=== PATIENT | male | born 1975 | race Caucasian/White ===

== ENCOUNTER 2016-09-15 14:08 | Inpatient (IN) | payer OTHER ==
[~2016-09-15] VITALS: Ht 177.8 cm; Wt 82.6 kg
[~2016-09-15 14:08] MED LIST: ALBU8.5H3 INH; AZIT250T6 PO; HYDR-3498 PO; MAG-19 PO; OMEP20CA9 PO
[2016-09-15] MEDS ORDERED: morphine 4 MG/ML VIAL IV STA ×2 (14:55→19:59)
[2016-09-15] MEDS ORDERED: HEPARIN 25000 UNITS/250 ML 250 ML IV STA (14:55)
--- NOTE | 2016-09-15 15:23 | RADRPT ---
PROCEDURE: XR Chest. CLINICAL INDICATION: Chest pain TECHNIQUE: Single portable view of the chest was obtained COMPARISON: 09/15/2016 FINDINGS: The heart is enlarged. There is slightly decreased pulmonary vascular congestion. There is persistent right lower lobe con solidation and right pleural effusion. There is no pleural effusion or pneumothorax. RPTAT: AA IMPRESSION: Mild Cardiomegaly. Slightly decreased pulmonary vascular congestion. Persistent right lower lobe consolidation and right pleural effusion. .Ricky Hunt MD, MD Date Time Electronically viewed and signed by .Ricky Hunt MD, MD on 09/15/2016 15:23 .S/
[2016-09-15 15:26] LABS: HEMATOCRIT 39.2 % (42.0-52.0); MEAN CORPUSCULAR HEMOGLOBIN 29.9 pg (29.0-33.0); MEAN CORPUSCULAR HGB CONC 33.1 g/dl (32.0-37.0); MEAN CORPUSCULAR VOLUME 90.3 fl (82.0-101.0); MEAN PLATELET VOLUME 10.5 fl (7.4-10.4); PLATELET COUNT 249 10^3/UL (140-440); RED BLOOD COUNT 4.34 10^6/ul (4.70-6.10); RED CELL DISTRIBUTION WIDTH 13.8 % (11.5-14.5); UNCORRECTED WBC 21.6 10^3/ul (4.8-10.8); WHITE BLOOD COUNT 21.6 10^3/ul (4.8-10.8)
[2016-09-15 15:27] LABS: CONDITION 1; LH ANALYZER COMMENTS 1; SUSPECT 1
[2016-09-15 15:37] LABS: INR 1.54; PROTIME 18.6 Sec (12.2-14.2); PT RATIO 1.5
[2016-09-15 15:38] LABS: PARTIAL THROMBOPLASTIN TIME 40.6 Sec (25.0-35.0)
[2016-09-15 15:39] LABS: POTASSIUM 4.6 mmol/L (3.5-5.1)
[2016-09-15 15:42] LABS: CREATININE 0.82 mg/dl (0.61-1.24)
[2016-09-15 15:43] LABS: CALCIUM 8.1 mg/dl (8.4-10.2)
[2016-09-15] MEDS ORDERED: SODIUM CHLORIDE 0.9% 1L BAG IV* STA (15:48)
[2016-09-15] MEDS ORDERED: CEFTRIAXONE 1 GM/50 ML (PMX) 50 ML IVPB STA (15:49)
[2016-09-15] MEDS ORDERED: AZITHROMYCIN 250 MG TAB PO STA (15:49)
[2016-09-15] MEDS ORDERED: IOHEXOL 350MG/ML 50 ML BTL ONE (15:52)
[2016-09-15] MEDS ORDERED: SOD CHLORIDE 0.9% 100 ML ONE (15:52)
[2016-09-15] MEDS ORDERED: IOHEXOL 100 ML ONE (15:52)
[2016-09-15 15:54] LABS: TROPONIN-I 0.05 ng/ml (0.00-0.12)
[2016-09-15 16:13] LABS: LYMPHOCYTES # 1.7 10^3/ul (0.8-2.9); MONOCYTE # 1.1 10^3/ul (0.3-0.9); NEUTROPHIL # 17.7 10^3/ul (1.6-7.5); PLATELET ESTIMATE PLT APPEAR ADEQUATE
--- NOTE | 2016-09-15 16:28 | RADRPT ---
PROCEDURE: CT Pulmonary Angiogram. CLINICAL INDICATION: Chest pain and shortness of breath. History of cocaine and methamphetamine us e. TECHNIQUE: CT pulmonary angiogram and a CT scan of the chest with contrast was performed. The pat ient was scanned following the uncomplicated intravenous administration of 125 cc of Omnipaque-350 i ntravenous contrast. 2-D coronal reformatted images were obtained from the axial source images. In addition, 3-D post processing was performed. Total exam DLP is 106.18 mGy-cm. CTDIvol is 22.53 m Gy. COMPARISON: Chest radiograph done earlier the same day. Bilateral lower extremity venous Doppler dated 09/14/2060 which was normal. FINDINGS: There are pulmonary emboli in the right main pulmonary artery distally at the branches of the right upper lobe, right middle lobe, and right lower lobe. There are small pulmonary emboli AP and left u pper lobe and lingular arteries. The left lower lobe appears clear of an bulbi. There is a moderate right pleural effusion. Patchy air space disease is present in the right lower lobe consistent with pneumonia. There is a small region of inflammation or pneumonia in the lingula . The lungs are otherwise clear with no other airspace or interstitial disease. There is no left p leural effusion. There is no pulmonary nodule or mass lesion. There is no pneumothorax. There is no mediastinal or hilar lymphadenopathy or mass. There is cardiomegaly and probable decreased cardiac output with no contrast in the left side of the heart. There is no pericardial effusion. The thoracic aorta is not dilated. There is no contrast in the thoracic aorta. Images through the upper abdomen demonstrate normal visualized portions of the liver, spleen, and ad renals. The osseous structures are normal with no fracture or lytic lesion. IMPRESSION: 1. Multiple bilateral pulmonary emboli with right greater than left. 2. Moderate right pleural effusion. 3. Right lower lobe pneumonia. 4. Small region of inflammation or pneumonia in the lingula. 5. Cardiomegaly and probable decreased cardiac output with no contrast in the left side of the hear t or thoracic aorta. 6. Otherwise unremarkable study. Call report: A call report of the findings was made to Dr. Estrada on 09/15/2016 at 1620 hours. RPTAT: QQ .Zack Gonsalez MD, MD Date Time Electronically viewed and signed by .Zack Gonsalez MD, on 09/15/2016 16:27 .R/
[2016-09-15] MEDS ORDERED: SOD CHLORIDE 0.9% 1,000 ML IV SCH (16:54)
[2016-09-15] MEDS ORDERED: ACETAMINOPHEN 325 MG TAB PO PRN (17:00)
[2016-09-15] MEDS ORDERED: ONDANSETRON 4 MG INJ IV PRN ×2 (17:00→18:00)
--- NOTE | 2016-09-15 17:03 | ERA ---
ER Documentation Chief Complaint Date/Time DATE: 09/15/16 TIME: 16:58 Chief Complaint sob, admitted and left ama this am, hx of blood clots and pneumonia HPI This is a 40-year-old male who presents to the emergency room with a chief complaint of shortness of breath.. This patient was seen previously in the emergency room, was diagnosed with a pulmonary embolism and left AGAINST MEDICAL ADVICE. He states he left AGAINST MEDICAL ADVICE because he did not feel like the hospital was "doing anything for him". He returns again today because he went to another hospital and did not get the care that he liked at the hospital either. The patient is complaining of shortness of breath and palpitations at this time. ROS All systems reviewed and are negative except as per history of present illness. Medications Home Meds Discontinued Reported Medications [none] Unknown Strength No Conflict Check 04/08/16 Discontinued Scripts Azithromycin* (Azithromycin*) 250 Mg Tablet, 250 MG PO DAILY, #4 TAB Prov:YANELIS ESCAMILLA DO 08/29/16 Albuterol Sulfate* (Proair HFA*) 8.5 Gm Hfa.aer.ad, 2 PUFF INH Q4, #1 INHALER Prov:YANELIS ESCAMILLA DO 08/29/16 Hydrocodone Bit-Acetaminophen* (Yancey*) 5-325 Mg Tab, 1 TAB PO Q6 Y for PAIN, # 20 TAB Prov:GRAY ADAM NP 04/09/16 Magaldrate/Simethicone* (Mylanta*) 355 Ml Susp, 30 ML PO QID Y for GASTROINTESTINAL UPSET, #1 BOTTLE Prov:GRAY ADAM NP 04/09/16 Omeprazole* (Prilosec*) 20 Mg Capsule.dr, 20 MG PO DAILY, #30 CAP Prov:GRAY ADAM NP 04/09/16 Allergies Allergies: Coded Allergies: No Known Drug Allergies (Verified Allergy, Unknown, 09/15/16) PMhx/Soc History of Surgery: No Anesthesia Reaction: No Hx Neurological Disorder: No Hx Respiratory Disorders: No Hx Cardiac Disorders: No Hx Psychiatric Problems: No Hx Miscellaneous Medical Probl: No Hx Alcohol Use: No Hx Substance Use: No Hx Tobacco Use: Yes Smoking Status: Heavy tobacco smoker Physical Exam Vitals Vital Signs Date Time Temp Pulse Resp B/P Pulse Ox O2 Delivery O2 Flow Rate FiO2 09/15/16 15:00 Nasal Cannula 4 09/15/16 14:20 100.6 119 40 125/81 96 Physical Exam INITIAL VITAL SIGNS: Reviewed by me GENERAL: The patient is well developed and appropriate for usual state of health in no apparent distress HEENT: Dry mucous membranes, pupils equal, round, and reactive to light. EOMI. There is no scleral icterus. NECK: C-spine is soft and supple, there is no meningismus. There is no cervical lymphadenopathy. LUNGS: Clear to auscultation bilaterally. There are no rales, wheezes or rhonchi. HEART: Tachycardic, no murmurs, clicks, rubs or gallops. ABDOMEN: Soft, non-tender, non-distended. There are bowel sounds in all four quadrants. No rebound or guarding. EXTREMITIES: There is no peripheral cyanosis or edema. No focal swelling or erythema. NEUROLOGICAL: The patient moves all four extremities with 5/5 strength. Cranial nerves II - XII are intact. Normal gait. Alert and oriented SKIN: There is no apparent rash or petechiae. HEME/LYMPHATIC: There is no evidence of excessive bruising or lymphedema. PSYCHIATRIC: The patient does not appear anxious or depressed. Result Diagram: 09/15/16 1505 09/15/16 1505 Results 24 hrs Laboratory Tests Test 09/15/16 15:05 09/15/16 16:00 Activated Partial Thromboplast Time 40.6Sec Anion Gap 17 Basophils # 10^3/ul Basophils % % Blood Morphology Comment Blood Urea Nitrogen 26mg/dl Calcium Level 8.1mg/dl Carbon Dioxide Level 26mmol/L Chloride Level 96mmol/L Creatinine 0.82mg/dl Eosinophils # 10^3/ul Eosinophils % % Giant Platelets FEW Glucose Level 96mg/dl Hematocrit 39.2% Hemoglobin 13.0g/dl INR International Normalized Ratio 1.54 Large Platelets FEW Lymphocytes # 1.710^3/ul Lymphocytes % 8.0% Mean Corpuscular Hemoglobin 29.9pg Mean Corpuscular Hemoglobin Concent 33.1g/dl Mean Corpuscular Volume 90.3fl Mean Platelet Volume 10.5fl Monocytes # 1.110^3/ul Monocytes % 5.0% Neutrophils # 17.710^3/ul Neutrophils % 82.0% Nucleated Red Blood Cells # 10^3/ul Nucleated Red Blood Cells % 0.0/100WBC Platelet Count 15716^3/UL Platelet Estimate PLT APPEAR ADEQUATE Potassium Level 4.6mmol/L Prothrombin Time 18.6Sec Prothrombin Time Ratio 1.5 Red Blood Count 4.3410^6/ul Red Cell Distribution Width 13.8% Sodium Level 134mmol/L Troponin I 0.050ng/ml White Blood Count 21.610^3/ul Lactic Acid Level 2.2mmol/L Current Medications Medications (Trade) Dose Ordered Sig/Darlyn Route PRN Reason Start Time Stop Time Status Last Admin Dose Admin Morphine Sulfate 4 mg 4 mg ONCE STAT IV 09/15/16 14:55 09/15/16 14:57 DC 09/15/16 15:09 Heparin Sodium (Porcine) (Heparin 77649 Units/250 ml) 250 ml @ 0 mls/hr ONCE STAT IV 09/15/16 14:55 09/15/16 14:57 DC Sodium Chloride (NS) 3,210 ml BOLUS OVER 2 HOURS STAT IV* 09/15/16 15:48 09/15/16 15:50 DC Azithromycin 500 mg 500 mg ONCE STAT PO 09/15/16 15:49 09/15/16 15:50 DC Ceftriaxone Sodium (Rocephin) 50 ml @ 100 mls/hr ONCE STAT IVPB 09/15/16 15:49 09/15/16 16:18 DC IV Flush 10 ml 10 ml STK-MED ONCE .ROUTE 09/15/16 15:52 09/15/16 15:53 DC 09/15/16 16:19 Sodium Chloride 100 ml @ ud STK-MED ONCE .ROUTE 09/15/16 15:52 09/15/16 15:53 DC 09/15/16 16:20 Iohexol (Omnipaque) 100 ml @ ud STK-MED ONCE .ROUTE 09/15/16 15:52 09/15/16 15:53 DC 09/15/16 16:19 Iohexol 50 ml 50 ml STK-MED ONCE .ROUTE 09/15/16 15:52 09/15/16 15:53 DC 09/15/16 16:19 Sodium Chloride (NS) 1,000 ml @ 80 mls/hr [id number] IV 09/15/16 16:54 09/16/16 05:23 UNV Ondansetron HCl (Zofran Inj) 4 mg ER BRIDGE PRN IV NAUSEA AND/OR VOMITING 09/15/16 17:00 09/16/16 16:59 UNV Acetaminophen (Tylenol Tab) 650 mg ER BRIDGE PRN PO MILD PAIN/FEVER 09/15/16 17:00 09/16/16 16:59 UNV Procedures/MDM EKG: Rate/Rhythm: Sinus tachycardia QRS, ST, T-waves: [No changes consistent w/ acute ischemia] Impression: [No evidence of ischemia or arrhythmia] Chest X-ray 1V Interpreted by me: Soft Tissue: Persistent right lower lobe consolidation and effusion Bones: No acute abnormalities Mediastinum/Cardiac Silhouette/Lungs: [No acute abnormalities] CTA chest: 1. Multiple bilateral pulmonary emboli with right greater than left. 2. Moderate right pleural effusion. 3. Right lower lobe pneumonia. 4. Small region of inflammation or pneumonia in the lingula. 5. Cardiomegaly and probable decreased cardiac output with no contrast in the left side of the heart or thoracic aorta. 6. Otherwise unremarkable study. This is a 40-year-old male who presents to the ER for evaluation of chest pain and shortness of breath. This patient was seen previously in the emergency room , diagnosed with pneumonia and he states a blood clot in his lung. I could not find any CT angios confirmed pulmonary embolism. Patient was tachycardic on my examination, and I did obtain a CT of the chest which did show a right-sided pulmonary embolism, right-sided pneumonia, pleural effusion. This patient has a white blood cell count of 21,000, and he was tachycardic. Sepsis workup was initiated in the emergency room including a greater than 30 cc/kg bolus of IV normal saline. This patient was started on a heparin drip, Rocephin, and azithromycin. He will be placed in for admission at this time to the telemetry floor for acute pulmonary aneurysm, and superimposed pneumonia with sepsis. No need for vasopressors at this time as this patient does have a mean arterial pressure greater than 65. Critical Care: Excluding all billable procedures Time: 48 minutes Treatments/Evaluations: Close monitoring and treatment of unstable vital signs, cardiorespiratory, and neurologic status, while maintaining tight balance of fluid, respiratory, and cardiac interventions. Smoking Cessation Therapy: Pt. was lectured for greater than 3 minutes on the health risks of continued smoking and the benefits of cessation. Departure Diagnosis: Primary Impression: Acute pulmonary embolus Additional Impressions: Sepsis Right middle lobe pneumonia Normocytic anemia Tobacco abuse Tobacco abuse counseling Amphetamine abuse, continuous Condition: Fair YANELIS ESCAMILLA DO Sep 15, 2016 17:03
[2016-09-15 17:32] LABS: ALBUMIN 3.1 g/dl (3.3-4.9); POTASSIUM 4.7 mmol/L (3.5-5.1)
[2016-09-15 17:34] LABS: ALBUMIN/GLOBULIN RATIO 1.06; BILIRUBIN,DIRECT 0.1 mg/dl (0.00-0.20); BILIRUBIN,TOTAL 3.1 mg/dl (0.2-1.3); CREATININE 0.83 mg/dl (0.61-1.24)
[2016-09-15 17:35] LABS: CALCIUM 8.2 mg/dl (8.4-10.2)
[2016-09-15] MEDS ORDERED: NACL 0.9% 3 ML SYG IV SCH (18:00)
[2016-09-15] MEDS: SOD CHLORIDE 0.9% 1,000 ML IV SCH (20:51)
[2016-09-15 20:52] LABS: ADD UMIC YES; URINE BILIRUBIN (Dip) 1+ (NEGATIVE); URINE BLOOD (Dip) NEGATIVE (NEGATIVE); URINE COLOR DK. YELLOW (YELLOW); URINE GLUCOSE (Dip) NEGATIVE (NEGATIVE); URINE KETONES (Dip) NEGATIVE (NEGATIVE); URINE LEUKOCYTE ESTERASE (Dip) NEGATIVE (NEGATIVE); URINE NITRITE (Dip) NEGATIVE (NEGATIVE); URINE TOTAL PROTEIN (Dip) 2+ (NEGATIVE); URINE UROBILINOGEN (Dip) 2.0 E.U./dL (0.1-1.0)
[2016-09-15 21:03] LABS: BACTERIA,URINE FEW; URINE RBCS NONE SEEN /HPF (0)
[2016-09-15 21:04] LABS: ICTOTEST NEGATIVE (NEGATIVE)
[2016-09-15 21:57] LABS: CK-MB 1.44 ng/ml (0.0-2.4)
[2016-09-15 21:58] LABS: TROPONIN-I 0.042 ng/ml (0.00-0.12)
[2016-09-15] MEDS: LORAZEPAM 2 MG INJ IV PRN (22:16)
[2016-09-15] MEDS ORDERED: ROCURONIUM 50 MG INJ IV STA (22:50)
[2016-09-15] MEDS ORDERED: FLUMAZENIL 0.5 MG INJ ONE (22:50)
[2016-09-15] MEDS ORDERED: SOD CHLORIDE 0.9% 1,000 ML IV STA (22:50)
[2016-09-15] MEDS ORDERED: ETOMIDATE 20 MG INJ IV STA (22:50)
[2016-09-15] MEDS ORDERED: MIDAZOLAM 50 MG in DEXTROSE 5% 40 ML IV STA (22:50)
[2016-09-15] MEDS ORDERED: FENTAnyl 500 MCG in DEXTROSE 5% 40 ML IV ONE (22:50)
[2016-09-15] MEDS ORDERED: FLUMAZENIL 0.5 MG INJ IV ONE (23:00)
[2016-09-16] VITALS (11 sets, daily range): BP systolic 115–139; BP diastolic 73–101; PULSE 103–116; RESP 22–37; Ht 177.8 cm; Wt 82.6 kg
[2016-09-16] MEDS ORDERED: morphine 4 MG/ML VIAL IV STA (00:53)
[2016-09-16 01:42] LABS: INR 1.53; PROTIME 18.5 Sec (12.2-14.2); PT RATIO 1.4
[2016-09-16 01:48] LABS: PARTIAL THROMBOPLASTIN TIME 70.9 Sec (25.0-35.0)
[2016-09-16 01:58] LABS: TROPONIN-I 0.05 ng/ml (0.00-0.12)
[2016-09-16 02:02] LABS: CK-MB 1.75 ng/ml (0.0-2.4)
[2016-09-16] MEDS: SOD CHLORIDE 0.9% 1,000 ML IV SCH ×3 (03:50→20:24)
[2016-09-16 07:00] LABS: BASOPHILS % 0.2 % (0.0-2.0); HEMATOCRIT 43.9 % (42.0-52.0); HEMOGLOBIN 14.3 g/dl (14.0-18.0); LYMPHOCYTES # 1.4 10^3/ul (0.8-2.9); LYMPHOCYTES % 6.1 % (15.0-51.0); MEAN CORPUSCULAR HEMOGLOBIN 29.9 pg (29.0-33.0); MEAN CORPUSCULAR HGB CONC 32.7 g/dl (32.0-37.0); MEAN CORPUSCULAR VOLUME 91.6 fl (82.0-101.0); MONOCYTE # 1.8 10^3/ul (0.3-0.9); MONOCYTES % 7.9 % (0.0-11.0); NEUTROPHILS % 85.8 % (39.0-77.0); PLATELET COUNT 222 10^3/UL (140-440); RED BLOOD COUNT 4.79 10^6/ul (4.70-6.10); RED CELL DISTRIBUTION WIDTH 13.9 % (11.5-14.5); UNCORRECTED WBC 23.3 10^3/ul (4.8-10.8); WHITE BLOOD COUNT 23.3 10^3/ul (4.8-10.8)
[2016-09-16 07:07] LABS: CONDITION 1; LH ANALYZER COMMENTS 1; SUSPECT 1
[2016-09-16 07:12] LABS: INR 1.83; PROTIME 21.3 Sec (12.2-14.2); PT RATIO 1.7
[2016-09-16 07:16] LABS: ALBUMIN 3.5 g/dl (3.3-4.9)
[2016-09-16 07:17] LABS: POTASSIUM 5.4 mmol/L (3.5-5.1)
[2016-09-16 07:19] LABS: BILIRUBIN,DIRECT 0.3 mg/dl (0.00-0.20); BILIRUBIN,INDIRECT 2.7 mg/dl (0-1.1); CREATININE 0.89 mg/dl (0.61-1.24)
[2016-09-16 07:20] LABS: CALCIUM 8.1 mg/dl (8.4-10.2)
[2016-09-16] MEDS ORDERED: HEPARIN 25000 UNITS/250 ML 250 ML IV STA (08:17)
[2016-09-16] MEDS ORDERED: ENOXAPARIN 60 MG/0.6 ML SYG SC SCH (09:00)
[2016-09-16] MEDS: morphine 2 MG INJ IV PRN ×3 (09:32→17:43)
[2016-09-16] MEDS: LORAZEPAM 2 MG INJ IV PRN ×2 (09:38→15:29)
[2016-09-16] MEDS: CEFTRIAXONE 1 GM/50 ML (PMX) 50 ML IVPB SCH (09:46)
[2016-09-16] MEDS ORDERED: HEPARIN 25000 UNITS/250 ML 250 ML IV SCH (11:30)
--- NOTE | 2016-09-16 12:50 | HP ---
Date/Time of Note Date/Time of Note DATE: 09/16/16 TIME: 12:46 Assessment/Plan VTE Prophylaxis VTE Prophylaxis Intervention: LMWH Lines/Catheters IV Catheter Type (from [facility]): Peripheral IV Urinary Cath still in place: No Reason Cath still needed: skin wounds contaminated by urine Assessment/Plan Chief Complaint/Hosp Course 1) pneumonia - intravenous antibiotics 2) pulmonary embolus - anticoagulation - oxygen 3) agitation - BZDs prn Problems: HPI/ROS Admit Date/Time Admit Date/Time Sep 15, 2016 at 16:54 Hx of Present Illness Patient comes in with shortness of breath. Patient was recently transfered from outside facility to this hospital for pneumonia and pulmonary embolus. Patient was treated for several days with intravenous antibiotics and lovenox/coumadin before he decided to leave against medical advice. Patient returns after having difficulty breathing. PMH/Family/Social Past Medical History Medical History: no pertinent history Past Surgical History Past Surgical Hx: no surgical history Social History Alcohol Use: occasionally Smoking Status: Heavy tobacco smoker Exam/Review of Systems Vital Signs Vitals Vital Signs Date Time Temp Pulse Resp B/P Pulse Ox O2 Delivery O2 Flow Rate FiO2 09/16/16 12:00 106 09/16/16 11:00 25 115/89 100 Non Rebreather 09/16/16 09:30 97.4 09/16/16 09:30 15.0 09/15/16 23:00 40 Intake and Output 09/15/16 09/15/16 09/16/16 15:00 23:00 07:00 Intake Total 155.5 ml 1948 ml Balance 155.5 ml 1948 ml Exam Constitutional: well developed Head: atraumatic, normocephalic Neck: supple Respiratory: clear to auscultation Cardiovascular: regular rate and rhythm Gastrointestinal: non-tender, soft Extremities: normal pulses Labs Result Diagram: 09/16/16 0650 09/16/16 0650 Medications Medications Current Medications Sodium Chloride (NS) 1,000 ml @ 100 mls/hr Q10H IV Last administered on at 03:50; Admin Dose 100 MLS/HR; Start 09/15/16 at 17:50 Lorazepam (Ativan) 0.5 mg Q6H PRN IV ANXIETY Last administered on 09/16/16at 09 :38; Admin Dose 0.5 MG; Start 09/15/16 at 18:00 Ondansetron HCl (Zofran Inj) 4 mg Q6H PRN IV NAUSEA AND/OR VOMITING; Start at 18:00 Morphine Sulfate (morphine) 2 mg Q4H PRN IV PAIN LEVEL 7-10 Last administered on 09/16/16 09:32; Admin Dose 2 MG; Start 09/15/16 at 18:00 Enoxaparin Sodium 110 mg 110 mg DAILY SC Last administered on 09/16/16at 09:47 ; Admin Dose 110 MG; Start 09/16/16 at 09:00 Ceftriaxone Sodium (Rocephin) 50 ml @ 100 mls/hr DAILY IVPB Last administered on 09/16/16 09:46; Admin Dose 100 MLS/HR; Start 09/16/16 at 09:00 Warfarin Sodium (Coumadin) 4 mg DAILY@17 PO ; Start 09/16/16 at 17:00 DREW MOLINA Sep 16, 2016 12:49
[2016-09-16] MEDS: WARFARIN 2 MG TAB PO SCH (17:43)
[2016-09-16] MEDS: LEVALBUTEROL (NEB) 1.25 MG/0.5 ML AMP HHN PRN (19:25)
[2016-09-16] MEDS ORDERED: ENOXAPARIN 100 MG/ML SYG SC SCH (21:00)
[2016-09-17] VITALS (12 sets, daily range): BP systolic 106–130; BP diastolic 60–96; PULSE 100–120; RESP 17–24
[2016-09-17 08:20] LABS: INR 2.04; PROTIME 23.2 Sec (12.2-14.2); PT RATIO 1.8
[2016-09-17] MEDS: LORAZEPAM 2 MG INJ IV PRN ×2 (08:34→21:09)
[2016-09-17 08:49] LABS: HAAIG REFLEX REFLEX FILED
[2016-09-17 09:44] LABS: HEPATITIS B CORE ANTIBODY NEGATIVE (NEGATIVE)
[2016-09-17] MEDS: SOD CHLORIDE 0.9% 1,000 ML IV SCH ×2 (09:50→18:51)
[2016-09-17 09:55] LABS: BASOPHIL # 0.1 10^3/ul (0.0-0.1); BASOPHILS % 0.3 % (0.0-2.0); HEMATOCRIT 38.9 % (42.0-52.0); HEMOGLOBIN 12.6 g/dl (14.0-18.0); LYMPHOCYTES # 1.1 10^3/ul (0.8-2.9); LYMPHOCYTES % 6.6 % (15.0-51.0); MEAN CORPUSCULAR HEMOGLOBIN 29.7 pg (29.0-33.0); MEAN CORPUSCULAR HGB CONC 32.4 g/dl (32.0-37.0); MEAN CORPUSCULAR VOLUME 91.6 fl (82.0-101.0); MEAN PLATELET VOLUME 10.2 fl (7.4-10.4); MONOCYTE # 1.3 10^3/ul (0.3-0.9); NEUTROPHIL # 13.7 10^3/ul (1.6-7.5); NEUTROPHILS % 85.1 % (39.0-77.0); PLATELET COUNT 215 10^3/UL (140-440); RED BLOOD COUNT 4.25 10^6/ul (4.70-6.10); RED CELL DISTRIBUTION WIDTH 13.8 % (11.5-14.5); UNCORRECTED WBC 16.1 10^3/ul (4.8-10.8); WHITE BLOOD COUNT 16.1 10^3/ul (4.8-10.8)
[2016-09-17 09:57] LABS: CONDITION 1; LH ANALYZER COMMENTS 1; SUSPECT 1
[2016-09-17] MEDS: CEFTRIAXONE 1 GM/50 ML (PMX) 50 ML IVPB SCH (09:58)
[2016-09-17] MEDS: LEVALBUTEROL (NEB) 1.25 MG/0.5 ML AMP HHN PRN ×2 (11:35→19:37)
[2016-09-17] MEDS: morphine 2 MG INJ IV PRN ×2 (12:30→22:01)
[2016-09-17 12:41] LABS: AADO2 Arterial 144.3 mmHg (7.0-24.0); Allen Test ACCEPTAB; Arterial Base Excess -0.7 mmol/L (-3.0-3); Arterial COHb 0 % (0.0-3.0); Arterial HCO3 24.7 mmol/L (22.0-26.0); Arterial MetHb 0.1 % (0.0-1.5); Arterial Total Hemglobin 13.8 g/dl (12.0-18.0); MODE NASAL CANNULA
--- NOTE | 2016-09-17 13:50 | PN ---
Date/Time of Note Date/Time of Note DATE: 09/17/16 TIME: 13:48 Assessment/Plan VTE Prophylaxis VTE Prophylaxis Intervention: other Lines/Catheters IV Catheter Type (from Nrs): Peripheral IV Urinary Cath still in place: No Assessment/Plan Chief Complaint/Hosp Course 1) pneumonia - intravenous antibiotics 2) pulmonary embolus - anticoagulation - oxygen 3) agitation - BZDs prn 4) shortness of breath - consult pulmonary Problems: Subjective 24 Hr Interval Summary Free Text/Dictation Patient has increased difficulty breath. Exam/Review of Systems Vital Signs Vitals Vital Signs Date Time Temp Pulse Resp B/P Pulse Ox O2 Delivery O2 Flow Rate FiO2 09/17/16 12:23 114 09/17/16 12:04 97.8 17 115/60 97 09/17/16 11:36 15.0 09/17/16 11:36 Non Rebreather Mask 09/15/16 23:00 40 Intake and Output 09/16/16 09/16/16 09/17/16 15:00 23:00 07:00 Intake Total 747.5 ml 1240 ml Output Total 250 ml 900 ml Balance 497.5 ml 340 ml Exam Constitutional: well developed Neck: supple Respiratory: diminished breath sounds Cardiovascular: regular rate and rhythm Gastrointestinal: non-tender, soft Extremities: normal pulses Results Result Diagram: 09/17/16 0935 09/16/16 0650 Results 24 hrs Laboratory Tests Test 09/16/16 17:07 09/17/16 07:16 09/17/16 09:35 09/17/16 12:03 Activated Partial Thromboplast Time 72.3 *H Hepatitis B Core Total Antibody NEGATIVE Hepatitis B Surface Antigen NEGATIVE Hepatitis C Antibody NEGATIVE INR International Normalized Ratio 2.04 Prothrombin Time 23.2 H Prothrombin Time Ratio 1.8 Basophils # 0.1 Basophils % 0.3 Eosinophils # 0.0 Eosinophils % 0.0 Hematocrit 38.9 L Hemoglobin 12.6 L Lymphocytes # 1.1 Lymphocytes % 6.6 L Mean Corpuscular Hemoglobin 29.7 Mean Corpuscular Hemoglobin Concent 32.4 Mean Corpuscular Volume 91.6 Mean Platelet Volume 10.2 Monocytes # 1.3 H Monocytes % 8.0 Neutrophils # 13.7 H Neutrophils % 85.1 H Nucleated Red Blood Cells # 0.0 Nucleated Red Blood Cells % 0.0 Platelet Count 215 Red Blood Count 4.25 L Red Cell Distribution Width 13.8 White Blood Count 16.1 #H Arterial Blood HCO3 24.7 Arterial Blood Base Excess -0.7 Arterial Blood Oxygen Saturation 95.1 Sky Test ACCEPTAB Arterial Blood Gas Puncture Site Left Radial Arterial Blood Carboxyhemoglobin 0 Arterial Blood Date Drawn 09/17/2016 12:30:26 PM Arterial Blood Methemoglobin 0.1 Arterial Blood pCO2 (Temp correct) 43.4 Arterial Blood pH (Temp corrected) 7.373 Arterial Blood pO2 (Temp corrected) 83.8 Blood Gas A-a O2 Differential 144.3 H Blood Gas Modality NASAL CANNULA Blood Gas Notified Time 09/17/2016 12:40:59 PM Blood Gas Notified Whom JLD Blood Gas Specimen Source Blood arterial Blood Gas Temperature 37.0 FiO2 39.0 Oxyhemoglobin Percent 95.0 Total Hemoglobin 13.8 Medications Medications Current Medications Sodium Chloride (NS) 1,000 ml @ 100 mls/hr Q10H IV Last administered on at 20:24; Admin Dose 100 MLS/HR; Start 09/15/16 at 17:50 Lorazepam (Ativan) 0.5 mg Q6H PRN IV ANXIETY Last administered on 09/17/16 08 :34; Admin Dose 0.5 MG; Start 09/15/16 at 18:00 Ondansetron HCl (Zofran Inj) 4 mg Q6H PRN IV NAUSEA AND/OR VOMITING; Start at 18:00 Morphine Sulfate 2 mg 2 mg Q4H PRN IV PAIN LEVEL 7-10 Last administered on at 12:30; Admin Dose 2 MG; Start 09/15/16 at 18:00 Ceftriaxone Sodium (Rocephin) 50 ml @ 100 mls/hr DAILY IVPB Last administered on 09/17/16 09:58; Admin Dose 100 MLS/HR; Start 09/16/16 at 09:00 Warfarin Sodium (Coumadin) 4 mg DAILY@17 PO Last administered on 09/16/16at 17: 43; Admin Dose 4 MG; Start 09/16/16 at 17:00 DREW MOLINA Sep 17, 2016 13:50
--- NOTE | 2016-09-17 14:36 | RADRPT ---
PROCEDURE: XR Chest. CLINICAL INDICATION: Shortness of breath TECHNIQUE: A single AP view of the chest was obtained. COMPARISON: Chest x-ray and CT chest dated 09/15/2016 FINDINGS: There is consolidation of the right lower lobe. There is a small right pleural effusion. No pneum othorax is seen. The cardiomediastinal silhouette is mildly enlarged. The osseous structures are u nremarkable. IMPRESSION: 1. Right lower lobe pneumonia with small right pleural effusion. No significant interval change. 2. Mild cardiomegaly. RPTAT: HH .Malia Aguirre MD, MD Date Time Electronically viewed and signed by .Malia Aguirre MD, on 09/17/2016 14:36 .G/
[2016-09-17 14:55] LABS: ALBUMIN 2.8 g/dl (3.3-4.9)
[2016-09-17 14:56] LABS: POTASSIUM 4.9 mmol/L (3.5-5.1)
[2016-09-17 14:58] LABS: ALBUMIN/GLOBULIN RATIO 0.87; BILIRUBIN,DIRECT 0.1 mg/dl (0.00-0.20); BILIRUBIN,INDIRECT 1.9 mg/dl (0-1.1); CREATININE 0.73 mg/dl (0.61-1.24)
[2016-09-17 14:59] LABS: CALCIUM 7.7 mg/dl (8.4-10.2)
[2016-09-17] MEDS: WARFARIN 2 MG TAB PO SCH (18:28)
[2016-09-18] VITALS (14 sets, daily range): BP systolic 106–129; BP diastolic 63–99; PULSE 91–126; RESP 20–48
[2016-09-18] MEDS: morphine 2 MG INJ IV PRN ×2 (02:52→08:47)
[2016-09-18] MEDS: LORAZEPAM 2 MG INJ IV PRN ×3 (03:43→17:52)
[2016-09-18] MEDS: SOD CHLORIDE 0.9% 1,000 ML IV SCH ×2 (05:50→15:50)
[2016-09-18 07:31] LABS: INR 2.37; PROTIME 26.2 Sec (12.2-14.2)
[2016-09-18] MEDS: LEVALBUTEROL (NEB) 1.25 MG/0.5 ML AMP HHN PRN ×2 (08:18→13:49)
[2016-09-18] MEDS: CEFTRIAXONE 1 GM/50 ML (PMX) 50 ML IVPB SCH (08:47)
[2016-09-18] MEDS: HALOPERIDOL 5 MG INJ IM PRN (11:31)
--- NOTE | 2016-09-18 14:10 | EN ---
Date/Time of Note Date/Time of Note DATE: 09/18/16 TIME: 14:09 Event Note Medicine Medicine Event Note Elevated liver function tests will require ultrasound of the abdomen Lower extremity Dopplers to rule out deep vein thrombosis Cardiac echo to evaluate for possible cardiomyopathy given evidence of heart failure with pleural effusion Trial of Lasix Consider cardiology consultation Consider GI consultation for elevated liver function tests [facility] STONE MD, [facility] Sep 18, 2016 14:10
--- NOTE | 2016-09-18 14:34 | PN ---
Date/Time of Note Date/Time of Note DATE: 09/18/16 TIME: 14:33 Assessment/Plan VTE Prophylaxis VTE Prophylaxis Intervention: other Lines/Catheters IV Catheter Type (from Nrs): Peripheral IV Urinary Cath still in place: No Assessment/Plan Chief Complaint/Hosp Course 1) pneumonia - intravenous antibiotics 2) pulmonary embolus - anticoagulation - oxygen 3) agitation - BZDs prn 4) shortness of breath - consult pulmonary Problems: Subjective 24 Hr Interval Summary Free Text/Dictation Patient continues to be anxious and difficult to control Exam/Review of Systems Vital Signs Vitals Vital Signs Date Time Temp Pulse Resp B/P Pulse Ox O2 Delivery O2 Flow Rate FiO2 09/18/16 13:55 112 36 Nasal Cannula 6.0 09/18/16 12:00 96.8 125/87 94 09/18/16 08:27 44 Intake and Output 09/17/16 09/17/16 09/18/16 15:00 23:00 07:00 Intake Total 800 ml 1600 ml Output Total 650 ml 1300 ml Balance 150 ml 300 ml Exam Constitutional: well developed Neck: supple Respiratory: diminished breath sounds Cardiovascular: regular rate and rhythm Gastrointestinal: non-tender, soft Extremities: normal pulses Results Result Diagram: 09/17/16 0935 09/17/16 1440 Results 24 hrs Laboratory Tests Test 09/17/16 14:40 09/18/16 06:25 Alanine Aminotransferase (ALT/SGPT) 1605 H Albumin 2.8 L Albumin/Globulin Ratio 0.87 Alkaline Phosphatase 198 H Anion Gap 14 Aspartate Amino Transf (AST/SGOT) 1401 H Blood Urea Nitrogen 32 H Calcium Level 7.7 L Carbon Dioxide Level 24 Chloride Level 97 Creatinine 0.73 Direct Bilirubin 0.10 # Globulin 3.20 Glucose Level 109 Indirect Bilirubin 1.9 H Potassium Level 4.9 Sodium Level 130 L Total Bilirubin 2.0 H Total Protein 6.0 #L INR International Normalized Ratio 2.37 Prothrombin Time 26.2 H Prothrombin Time Ratio 2.0 Medications Medications Current Medications Sodium Chloride (NS) 1,000 ml @ 100 mls/hr Q10H IV Last administered on at 18:51; Admin Dose 100 MLS/HR; Start 09/15/16 at 17:50 Lorazepam (Ativan) 0.5 mg Q6H PRN IV ANXIETY Last administered on 09/18/16at 10 :07; Admin Dose 0.5 MG; Start 09/15/16 at 18:00 Ondansetron HCl (Zofran Inj) 4 mg Q6H PRN IV NAUSEA AND/OR VOMITING; Start at 18:00 Morphine Sulfate 2 mg 2 mg Q4H PRN IV PAIN LEVEL 7-10 Last administered on at 08:47; Admin Dose 2 MG; Start 09/15/16 at 18:00 Ceftriaxone Sodium (Rocephin) 50 ml @ 100 mls/hr DAILY IVPB Last administered on 09/18/16at 08:47; Admin Dose 100 MLS/HR; Start 09/16/16 at 09:00 Warfarin Sodium (Coumadin) 4 mg DAILY@17 PO Last administered on 09/17/16at 18: 28; Admin Dose 4 MG; Start 09/16/16 at 17:00 Haloperidol (Haldol) 5 mg Q6H PRN IM AGITATION Last administered on 09/18/16at 11:31; Admin Dose 5 MG; Start 09/18/16 at 11:30 Furosemide (Lasix) 40 mg DAILY IV ; Start 09/18/16 at 14:30 DREW MOLINA Sep 18, 2016 14:34
[2016-09-18] MEDS: FUROSEMIDE 40 MG INJ IV SCH (14:51)
--- NOTE | 2016-09-18 15:01 | CONS ---
DATE OF ADMISSION: 09/15/2016 DATE OF CONSULTATION: 09/18/2016 TYPE OF CONSULTATION: Pulmonary. REASON FOR CONSULTATION: Shortness of breath. Thank you, Dr. Colon, for this consultation. HISTORY OF PRESENT ILLNESS: This is a 40-year-old gentleman with recent diagnosis of acute pulmonar y embolus and pneumonia. The patient left this facility/emergency room without further treatment ag ainst medical advice and returned for continuing treatment. Initially required nonrebreather O2 and now his oxygenation is slowly improving down to nasal cannula. He has a significant tobacco histor y. No history of drug abuse, moderate alcohol intake. ALLERGIES: NO KNOWN ALLERGIES. FAMILY HISTORY: Noncontributory. SYSTEMS REVIEW: A 12-point review of systems was negative other than that mentioned above. PHYSICAL EXAMINATION: GENERAL: Well-nourished, well-developed gentleman, comfortable at rest, no acute distress. VITAL SIGNS: Currently afebrile, pulse is 100, blood pressure 128/87, O2 saturation 96% on 4 liters . NECK: Supple. No JVD or lymphadenopathy. CARDIAC: S1, S2. No added sounds or murmurs. CHEST: Diminished air entry bilaterally. ABDOMEN: Soft, nontender. No guarding or rebound. EXTREMITIES: No cyanosis, clubbing, edema. NEUROLOGIC: Grossly intact. No focal deficits. DIAGNOSTIC DATA: CT angiogram shows right pleural effusion, bilateral pulmonary emboli. LABORATORY DATA: White count 16.1, hemoglobin 12.6, platelets of 215. BUN 32, creatinine 0.76. T 1401, ALT 1605, alkaline phosphatase was elevated at 198. Hepatitis A, B and C is negative. IMPRESSION AND PLAN: 1. Acute pulmonary embolus in a 40-year-old gentleman, concerning for possible underlying prothromb otic condition. 2. Significant transaminitis, etiology is unclear. 3. Right lower lobe pneumonia with pleural effusion. The patient will require: 1. Continue broad spectrum antibiotics. 2. Adequate pain control. 3. Consider ultrasound of the abdomen for workup of transaminitis. 4. DVT and GI prophylaxis. Dictated By: AMANDA MORTON/MARIA ELENA Conf#: [id number] DID#: [id number]
[2016-09-18 15:07] LABS: AADO2 Arterial 520.9 mmHg (7.0-24.0); Allen Test ACCEPTAB; Arterial Base Excess -2.7 mmol/L (-3.0-3); Arterial COHb 0.4 % (0.0-3.0); Arterial Fraction of Oxyhgb 98.4 % (93.0-99.0); Arterial HCO3 20.7 mmol/L (22.0-26.0); Arterial MetHb 0.2 % (0.0-1.5); Arterial Total Hemglobin 14.1 g/dl (12.0-18.0); MODE MASK - NRB
[2016-09-18] MEDS: WARFARIN 2 MG TAB PO SCH (17:51)
--- NOTE | 2016-09-18 20:35 | RADRPT ---
PROCEDURE: Abdominal ultrasound, limited. CLINICAL INDICATION: Abdominal pain. TECHNIQUE: Multiple real-time images were acquired of the patient's right upper abdomen utilizing a high resolution transducer. The examination is limited due to the patient's combative behavior. COMPARISON: None FINDINGS: The liver demonstrates normal echogenicity and size measuring 17.1 cm. There is no focal mass or in trahepatic biliary ductal dilatation. TThere is fatty infiltration of the pancreas. No free fluid is identified. IMPRESSION: Incomplete examination. Fatty infiltration of the pancreas. Unremarkable liver. .Eric Lee MD, MD Date Time Electronically viewed and signed by .Eric Lee MD, MD on 09/18/2016 20:34 .T/
[2016-09-19] VITALS (33 sets, daily range): BP systolic 80–143; BP diastolic 60–118; PULSE 86–137; RESP 10–32
[2016-09-19] MEDS: SOD CHLORIDE 0.9% 1,000 ML IV SCH ×3 (01:50→23:28)
[2016-09-19] MEDS ORDERED: ETOMIDATE 20 MG INJ ONE (07:00)
[2016-09-19] MEDS ORDERED: ROCURONIUM 50 MG INJ ONE (07:00)
[2016-09-19 07:13] LABS: BASOPHILS % 0.1 % (0.0-2.0); HEMATOCRIT 39.8 % (42.0-52.0); LYMPHOCYTES # 0.6 10^3/ul (0.8-2.9); LYMPHOCYTES % 3.7 % (15.0-51.0); MEAN CORPUSCULAR HEMOGLOBIN 29.6 pg (29.0-33.0); MEAN CORPUSCULAR HGB CONC 32.5 g/dl (32.0-37.0); MEAN CORPUSCULAR VOLUME 90.9 fl (82.0-101.0); MEAN PLATELET VOLUME 9.9 fl (7.4-10.4); MONOCYTE # 1.5 10^3/ul (0.3-0.9); MONOCYTES % 9.9 % (0.0-11.0); NEUTROPHIL # 13.4 10^3/ul (1.6-7.5); NEUTROPHILS % 86.3 % (39.0-77.0); PLATELET COUNT 171 10^3/UL (140-440); RED BLOOD COUNT 4.38 10^6/ul (4.70-6.10); RED CELL DISTRIBUTION WIDTH 14.4 % (11.5-14.5); UNCORRECTED WBC 15.5 10^3/ul (4.8-10.8); WHITE BLOOD COUNT 15.5 10^3/ul (4.8-10.8)
[2016-09-19 07:14] LABS: CONDITION 1
[2016-09-19 07:27] LABS: INR 2.68; POTASSIUM 5.5 mmol/L (3.5-5.1); PROTIME 28.9 Sec (12.2-14.2); PT RATIO 2.3
[2016-09-19 07:29] LABS: CREATININE 0.89 mg/dl (0.61-1.24)
[2016-09-19 07:30] LABS: CALCIUM 7.6 mg/dl (8.4-10.2); MAGNESIUM 2.4 mg/dl (1.7-2.5); PHOSPHORUS 2.9 mg/dl (2.5-4.9)
[2016-09-19] MEDS: LORAZEPAM 2 MG INJ IV PRN (09:23)
[2016-09-19] MEDS: CEFTRIAXONE 1 GM/50 ML (PMX) 50 ML IVPB SCH (09:23)
[2016-09-19] MEDS: FUROSEMIDE 40 MG INJ IV SCH (09:23)
[2016-09-19] MEDS ORDERED: NA POLYST SULFON 15 GM/60 ML BTL PO ONE ×2 (10:00→17:00)
--- NOTE | 2016-09-19 10:00 | PN ---
Date/Time of Note Date/Time of Note DATE: 09/19/16 TIME: 09:59 Assessment/Plan VTE Prophylaxis VTE Prophylaxis Intervention: LMWH Lines/Catheters IV Catheter Type (from Nrs): Peripheral IV Urinary Cath still in place: No Assessment/Plan Chief Complaint/Hosp Course 1) pneumonia - intravenous antibiotics 2) pulmonary embolus - anticoagulation - oxygen 3) agitation - BZDs prn 4) shortness of breath - probably secondary to #3 Problems: Subjective 24 Hr Interval Summary Free Text/Dictation Patient continue to be restless and anxious but oxygenating well. No evidence of acidosis on labs Exam/Review of Systems Vital Signs Vitals Vital Signs Date Time Temp Pulse Resp B/P Pulse Ox O2 Delivery O2 Flow Rate FiO2 09/19/16 08:08 113 09/19/16 04:26 98.4 26 113/81 99 09/19/16 00:45 15.0 09/18/16 20:00 Nasal Cannula 09/18/16 08:27 44 Intake and Output 09/18/16 09/18/16 09/19/16 15:00 23:00 07:00 Intake Total 600 ml 400 ml Balance 600 ml 400 ml Exam Cardiovascular: patient is tachycardic Constitutional: well developed Head: atraumatic, normocephalic Respiratory: diminished breath sounds, labored breathing Results Result Diagram: 09/19/16 0610 09/19/16 0610 Results 24 hrs Laboratory Tests Test 09/18/16 14:42 09/19/16 06:10 Arterial Blood HCO3 20.7 L Arterial Blood Base Excess -2.7 Arterial Blood Oxygen Saturation 99.0 H Sky Test ACCEPTAB Arterial Blood Gas Puncture Site Right Radial Arterial Blood Carboxyhemoglobin 0.4 Arterial Blood Date Drawn 09/18/2016 2:55:05 PM Arterial Blood Methemoglobin 0.2 Arterial Blood pCO2 (Temp correct) 32.3 L Arterial Blood pH (Temp corrected) 7.425 Arterial Blood pO2 (Temp corrected) 159.8 H Blood Gas A-a O2 Differential 520.9 H Blood Gas Modality MASK - NRB Blood Gas Notified Time 09/18/2016 3:07:43 PM Blood Gas Notified Whom JLD Blood Gas Specimen Source Blood arterial Blood Gas Temperature 37.0 FiO2 100.0 Oxyhemoglobin Percent 98.4 Total Hemoglobin 14.1 Anion Gap 15 Basophils # 0.0 Basophils % 0.1 Blood Urea Nitrogen 29 H Calcium Level 7.6 L Carbon Dioxide Level 27 Chloride Level 95 L Creatinine 0.89 Eosinophils # 0.0 Eosinophils % 0.0 Glucose Level 84 Hematocrit 39.8 L Hemoglobin 13.0 L INR International Normalized Ratio 2.68 Lymphocytes # 0.6 L Lymphocytes % 3.7 L Magnesium Level 2.4 Mean Corpuscular Hemoglobin 29.6 Mean Corpuscular Hemoglobin Concent 32.5 Mean Corpuscular Volume 90.9 Mean Platelet Volume 9.9 Monocytes # 1.5 H Monocytes % 9.9 Neutrophils # 13.4 H Neutrophils % 86.3 H Nucleated Red Blood Cells # 0.0 Nucleated Red Blood Cells % 0.0 Phosphorus Level 2.9 Platelet Count 171 # Potassium Level 5.5 H Prothrombin Time 28.9 H Prothrombin Time Ratio 2.3 Red Blood Count 4.38 L Red Cell Distribution Width 14.4 Sodium Level 131 L White Blood Count 15.5 H Medications Medications Current Medications Sodium Chloride (NS) 1,000 ml @ 100 mls/hr Q10H IV Last administered on 01:50; Admin Dose 100 MLS/HR; Start 09/15/16 at 17:50 Lorazepam (Ativan) 0.5 mg Q6H PRN IV ANXIETY Last administered on 09/19/16 09 :23; Admin Dose 0.5 MG; Start 09/15/16 at 18:00 Ondansetron HCl (Zofran Inj) 4 mg Q6H PRN IV NAUSEA AND/OR VOMITING; Start at 18:00 Morphine Sulfate 2 mg 2 mg Q4H PRN IV PAIN LEVEL 7-10 Last administered on 08:47; Admin Dose 2 MG; Start 09/15/16 at 18:00 Ceftriaxone Sodium (Rocephin) 50 ml @ 100 mls/hr DAILY IVPB Last administered on 09/19/16 09:23; Admin Dose 100 MLS/HR; Start 09/16/16 at 09:00 Warfarin Sodium (Coumadin) 4 mg DAILY@17 PO Last administered on 09/18/16 17: 51; Admin Dose 4 MG; Start 09/16/16 at 17:00 Haloperidol (Haldol) 5 mg Q6H PRN IM AGITATION Last administered on 09/18/16 11:31; Admin Dose 5 MG; Start 09/18/16 at 11:30 Furosemide (Lasix) 40 mg DAILY IV Last administered on 09/19/16at 09:23; Admin Dose 40 MG; Start 09/18/16 at 14:30 DREW MOLINA Sep 19, 2016 10:00
--- NOTE | 2016-09-19 10:22 | RADRPT ---
PROCEDURE: XR Chest. CLINICAL INDICATION: Chest pain and pneumonia TECHNIQUE: AP Portable chest. COMPARISON: 09/17/2016 chest x-ray FINDINGS: The soft tissues and bones are normal. Again noted is right lower lobe consolidation. Involvement o f the superior segment of the right lower lobe of the right upper lobe is also noted. Obscuration o f the right hemidiaphragm is present compatible to small right pleural effusion. Mild cardiomegaly i s present with mild vascular calcifications. No pneumothorax is present. IMPRESSION: 1. Right lower lobe and superior segment right lower lobar right upper lobe pneumonia. 2. Small right pleural effusion. 3. Mild cardiomegaly and atherosclerotic vascular disease RPTAT: HDC .Keysha Sellers MD, MD Date Time Electronically viewed and signed by .Keysha Sellers MD, on 09/19/2016 10:22 .C/
[2016-09-19] MEDS: HALOPERIDOL 5 MG INJ IM PRN (10:40)
[2016-09-19] MEDS ORDERED: VANCOMYCIN IV PER PHARMACY XX SCH (11:30)
[2016-09-19] MEDS ORDERED: LIDOCAINE 1% (MDV) 20 ML INJ SC ONE (12:00)
[2016-09-19] MEDS ORDERED: VANCOMYCIN 2 GM in SOD CHLORIDE 0.9% 500 ML IVPB SCH (12:30)
[2016-09-19 13:18] LABS: AADO2 Arterial 567.7 mmHg (7.0-24.0); Allen Test ACCEPTAB; Arterial Base Excess -2.1 mmol/L (-3.0-3); MODE MASK - NRB
[2016-09-19] MEDS ORDERED: PROPOFOL 100 ML ONE (13:18)
--- NOTE | 2016-09-19 13:18 | PN ---
DATE: 09/19/2016 Patient pulled out all his lines, is acutely confused and agitated this morning with evidence of res piratory distress. PHYSICAL EXAMINATION VITAL SIGNS: Temperature 98, pulse is 110, blood pressure 131/60, O2 saturation 96% on nasal cannul a. NECK: Obvious labored breathing, no elevated JVD. CARDIAC: S1, S2, tachycardia. CHEST: Diminished air entry right side greater than left. ABDOMEN: Obese, soft, nontender, no guarding, no rebound. EXTREMITIES: No cyanosis, clubbing or edema. NEUROLOGIC: Moves all 4 limbs. LABORATORY DATA: White count 15.5, hemoglobin 13, platelets 171. BUN 29, creatinine 0.89. INR was 2.68. IMAGING: Chest x-ray was reviewed, shows right-sided pneumonia and small pleural effusions. IMPRESSION AND PLAN 1. Hypoxemic respiratory failure. 2. Acute pulmonary emboli. 3. Acute pneumonia and pleural effusion. 4. Encephalopathy, likely toxic metabolic. PLAN 1. Transfer to intensive care unit for further monitoring. 2. Hold Coumadin for likely thoracentesis. 3. Continue antibiotics broaden coverage for possible aspiration component. 4. DVT and GI prophylaxis. Dictated By: AMANDA MORTON/MARIA ELENA Conf#: [id number] DID#: [id number]
[2016-09-19] MEDS: PROPOFOL 100 ML IV SCH ×2 (13:35→20:51)
--- NOTE | 2016-09-19 13:46 | RADRPT ---
PROCEDURE: XR Chest. CLINICAL INDICATION: Status post intubation and line placement. TECHNIQUE: AP Portable chest. COMPARISON: 09/19/2016 chest x-ray FINDINGS: The soft tissues and bones are remarkable for an endotracheal tube 3.4 cm above the ida. A left PICC catheter is present tip in the superior vena cava. Again noted is the multilobar are infiltrat ion in the right upper and right lower lobes with increased interstitial crowding in the left hemith orax and low lung volumes. A small right pleural effusion is present. Mild cardiomegaly and vascul ar calcifications of the aorta are noted. No pneumothorax is present. IMPRESSION: 1. Endotracheal tube and left PICC catheter as described above. 2. Multilobar are right hemithoracic pneumonia and small right pleural effusion. 3. Mild cardiomegaly and atherosclerotic vascular disease. 4. Low lung volumes in interstitial crowding RPTAT: HDC .Keysha Sellers MD, Date Time Electronically viewed and signed by .Keysha Sellers MD, on 09/19/2016 13:45 .C/
[2016-09-19] MEDS: CEFEPIME 2GM/50 ML (PMX) 50 ML IVPB SCH ×2 (14:13→20:57)
--- NOTE | 2016-09-19 15:07 | EN ---
Date/Time of Note Date/Time of Note DATE: 09/19/16 TIME: 15:03 ER Progress Note I was called to the intensive care unit for intubation. In short, this patient was admitted for pneumonia, pulmonary emboli. The patient has had intermittent episodes of difficulty breathing. The patient is now having significant difficulty breathing with altered mental status requiring intubation. General: Obtunded, respiratory distress Head: Normocephalic, atraumatic. Eyes: Pupils equally reactive, EOM intact ENT: Dry Neck: Supple, no lymphadenopathy Respiratory: Rhonchi bilaterally Cardiovascular: Tachycardia, no murmurs, rubs, or gallops Abdominal: Soft, non-tender, non-distended, no peritoneal signs : Deferred MSK: No edema, no unilateral swelling, 5/5 strength Neurologic: Altered, obtunded Skin: No rash Intubation Note: Indication: Airway protection Consent: This was an emergent situation, implied consent was observed RSI Medications: Etomidate 20 mg, Rocuronium 100 mg Tube size: 8.0 Secured at: 24 at the lip Procedure: Endotracheal intubation was performed. The patient was preoxygenated with supplemental oxygen, the room was set up with emergent airway equipment including [id number], suction, adjunct airways. Direct visualization of the cords was performed with direct laryngoscopy using a 4.0 Mac blade, insertion of the endotracheal tube through the cords was visualized by the pulverizer mill operator. Bilateral breath sounds were auscultated, color change was observed. The tube was then secured in a postintubation chest x-ray was ordered. The patient tolerated the procedure well there were no complications. Chest x-ray: I reviewed and interpreted a 1 view of the chest Mediastinum: No enlargement Cardiac silhouette: cardiomegaly Airspace: Significant interstitial process and pulmonary edema right greater than left Bones: No evidence of fracture Endotracheal tube appropriately above the ida Further management by primary team. Diagnostic impression: Acute respiratory failure REAL HIGHTOWER MD Sep 19, 2016 15:06
[2016-09-19 15:57] LABS: AADO2 Arterial 208.7 mmHg (7.0-24.0); Allen Test ACCEPTAB; Arterial Base Excess -5.1 mmol/L (-3.0-3); Arterial COHb 0.3 % (0.0-3.0); Arterial Fraction of Oxyhgb 92.9 % (93.0-99.0); Arterial HCO3 23.5 mmol/L (22.0-26.0); Arterial MetHb 0.2 % (0.0-1.5); Arterial Total Hemglobin 14.8 g/dl (12.0-18.0); MODE VENT - AC
--- NOTE | 2016-09-19 18:05 | OPR ---
DATE OF OPERATION: PREOPERATIVE DIAGNOSIS: Respiratory failure. POSTOPERATIVE DIAGNOSIS: Respiratory failure. OPERATION PERFORMED: Left subclavian vein central line placement. SURGEON: Young Marino MD ANESTHESIA: Local. CONSENT: Risks, benefits, complications, alternative therapies explained to the patient; however, t he patient is unresponsive. We had to proceed with the placement of an emergency central line. DESCRIPTION OF PROCEDURE: Access was gained in the left subclavian vein. Guidewire was advanced th rough without any difficulty. Subcutaneous tissues were dilated. Central line advanced over guidew joan, secured to skin using silk sutures. All ports of the catheter were aspirated and injected usin g saline solution. Patient tolerated procedure well. Dictated By: YOUNG YAN/MARIA ELENA Conf#: [id number] DID#: [id number]
--- NOTE | 2016-09-19 18:08 | CONS ---
DATE OF ADMISSION: 09/15/2016 DATE OF CONSULTATION: REASON FOR CONSULTATION: Surgical. HISTORY OF PRESENT ILLNESS: This is a 40-year-old male admitted with shortness of breath. The yessenia ent had previously been diagnosed with a pulmonary embolism, signed out AMA. Now is being admitted, had to be transferred to the intensive care unit on emergency basis, intubated, will be needing nataliya tral line. PAST MEDICAL HISTORY: Pulmonary embolism. PAST SURGICAL HISTORY: None. ALLERGIES: NONE. MEDICATIONS List reviewed, which is: 1. Azithromycin. 2. Albuterol. 3. Hydrocodone. 4. Omeprazole. PHYSICAL EXAMINATION GENERAL: The patient is unresponsive, intubated. VITAL SIGNS: Blood pressure is 121/69, pulse is 124, respiration is 30, saturation is 91% on 6 L of oxygen. NECK: Jugular veins are up to 8 cm. LUNGS: Diminished breath sounds at the bases. ABDOMEN: Soft. EXTREMITIES: Warm. LABORATORY VALUES: Significant for A white count of 15.5, hemoglobin 13, platelet count 171, INR 2. 68. IMPRESSION 1. Pulmonary embolism. 2. Pneumonia. RECOMMENDATIONS: We will proceed with the placement of a central line. No family available. We wi ll have to proceed without consent on an emergency basis. Discussed with the nursing staff. Dictated By: YOUNG YAN/MARIA ELENA Conf#: [id number] DID#: [id number]
[2016-09-19 20:09] LABS: AADO2 Arterial 241.2 mmHg (7.0-24.0); Allen Test ACCEPTAB; Arterial Base Excess -1.6 mmol/L (-3.0-3); Arterial COHb 0.4 % (0.0-3.0); Arterial Fraction of Oxyhgb 93.7 % (93.0-99.0); Arterial HCO3 22.6 mmol/L (22.0-26.0); Arterial MetHb 0.3 % (0.0-1.5); MODE VENT - AC
[2016-09-19] MEDS: FAMOTIDINE 20 MG INJ IV SCH (20:56)
[2016-09-20] VITALS (49 sets, daily range): BP systolic 94–116; BP diastolic 59–91; PULSE 84–103; RESP 21–31
[2016-09-20] MEDS: VANCOMYCIN 1.5 GM in SOD CHLORIDE 0.9% 250 ML IVPB SCH ×2 (01:14→11:56)
[2016-09-20] MEDS: PROPOFOL 100 ML IV SCH ×4 (03:32→22:51)
[2016-09-20 04:57] LABS: INR 3.47; PROTIME 35.4 Sec (12.2-14.2); PT RATIO 2.8; THROMBIN TIME 17.9 SEC (13.8-19.1)
[2016-09-20 04:58] LABS: PARTIAL THROMBOPLASTIN TIME 42.9 Sec (25.0-35.0); POTASSIUM 3.9 mmol/L (3.5-5.1)
[2016-09-20 05:00] LABS: CREATININE 0.9 mg/dl (0.61-1.24)
[2016-09-20 05:01] LABS: CALCIUM 6.8 mg/dl (8.4-10.2); MAGNESIUM 2.2 mg/dl (1.7-2.5); PHOSPHORUS 2.5 mg/dl (2.5-4.9)
[2016-09-20 05:11] LABS: BASOPHILS % 0.1 % (0.0-2.0); EOSINOPHILS % 0.1 % (0.0-7.0); HEMATOCRIT 34.9 % (42.0-52.0); HEMOGLOBIN 11.5 g/dl (14.0-18.0); LYMPHOCYTES # 0.6 10^3/ul (0.8-2.9); LYMPHOCYTES % 6.5 % (15.0-51.0); MEAN CORPUSCULAR HEMOGLOBIN 30.2 pg (29.0-33.0); MEAN CORPUSCULAR VOLUME 91.4 fl (82.0-101.0); MEAN PLATELET VOLUME 9.6 fl (7.4-10.4); MONOCYTE # 1.1 10^3/ul (0.3-0.9); MONOCYTES % 11.5 % (0.0-11.0); NEUTROPHIL # 7.6 10^3/ul (1.6-7.5); NEUTROPHILS % 81.8 % (39.0-77.0); PLATELET COUNT 143 10^3/UL (140-440); RED BLOOD COUNT 3.82 10^6/ul (4.70-6.10); RED CELL DISTRIBUTION WIDTH 14.3 % (11.5-14.5); UNCORRECTED WBC 9.3 10^3/ul (4.8-10.8); WHITE BLOOD COUNT 9.3 10^3/ul (4.8-10.8)
[2016-09-20 06:24] LABS: CONDITION 1
[2016-09-20 08:06] LABS: AADO2 Arterial 253.2 mmHg (7.0-24.0); Allen Test ACCEPTAB; Arterial Base Excess 4.1 mmol/L (-3.0-3); Arterial COHb 0.3 % (0.0-3.0); Arterial Fraction of Oxyhgb 91.5 % (93.0-99.0); Arterial MetHb 0.1 % (0.0-1.5); Arterial Total Hemglobin 12.6 g/dl (12.0-18.0); MODE VENT - AC
[2016-09-20] MEDS: FAMOTIDINE 20 MG INJ IV SCH ×2 (09:17→21:45)
[2016-09-20] MEDS: FUROSEMIDE 40 MG INJ IV SCH (09:18)
--- NOTE | 2016-09-20 10:13 | CONS ---
Date/Time of Note Date/Time of Note DATE: 09/20/16 TIME: 10:11 Consult Date/Type/Reason Admit Date/Time Sep 15, 2016 at 16:54 Initial Consult Date Type of Consultation: pulmonary Subjective Patient remains intubated on mechanical ventilation following transfer to intensive care unit yesterday Currently hemodynamically stable Objective Vital Signs Date Time Temp Pulse Resp B/P Pulse Ox O2 Delivery O2 Flow Rate FiO2 09/20/16 08:37 50 09/20/16 08:00 88 09/20/16 07:30 98.8 26 104/70 97 Mechanical Ventilator 09/19/16 11:30 6.0 Intake and Output 09/19/16 09/19/16 09/20/16 15:00 23:00 07:00 Intake Total 387.81 ml 1435.18 ml 1036.94 ml Output Total 590 ml 390 ml Balance 387.81 ml 845.18 ml 646.94 ml PHYSICAL EXAMINATION intubated on mechanical ventilation VITAL SIGNS: As above NECK: Obvious labored breathing, no elevated JVD. CARDIAC: S1, S2, tachycardia. CHEST: Diminished air entry right side greater than left. ABDOMEN: Obese, soft, nontender, no guarding, no rebound. EXTREMITIES: No cyanosis, clubbing or edema. NEUROLOGIC: Moves all 4 limbs. Results/Medications Result Diagram: 09/20/16 0400 09/20/16 0400 Results 24 hrs Laboratory Tests Test 09/19/16 11:32 09/19/16 12:00 09/19/16 14:14 09/19/16 14:38 Arterial Blood HCO3 22.0 28.0 H 23.5 Arterial Blood Base Excess -2.1 4.1 H -5.1 L Sky Test ACCEPTAB ACCEPTAB ACCEPTAB Arterial Blood Gas Puncture Site Right Radial Right Radial Right Radial Arterial Blood Date Drawn 09/19/2016 1:00:01 PM 09/20/2016 7:45:57 AM 09/19/2016 3:40:51 PM Arterial Blood pCO2 (Temp correct) 36.0 39.7 58.4 H Arterial Blood pH (Temp corrected) 7.404 7.467 H 7.223 *L Arterial Blood pO2 (Temp corrected) 109.3 H 58.6 L 82.1 Blood Gas A-a O2 Differential 567.7 H 253.2 H 208.7 H Blood Gas Actual Respiration Rate 24 24 17 Blood Gas Critical Value Read Back JOSE Ribera RN Blood Gas Modality MASK - NRB VENT - AC VENT - AC Blood Gas Notified Time 09/19/2016 1:18:23 PM 09/20/2016 8:05:10 AM 09/19/2016 3:55:20 PM Blood Gas Notified Whom RDIX DT RDIX Blood Gas Specimen Source Blood arterial Blood arterial Blood arterial Blood Gas Temperature 37.0 37.0 37.0 FiO2 100.0 50.0 50.0 Arterial Blood Oxygen Saturation 91.9 L 93.4 L Arterial Blood Carboxyhemoglobin 0.3 0.3 Arterial Blood Methemoglobin 0.1 0.2 Blood Gas Low PEEP Setting 5.0 5.0 Blood Gas Respiration Rate 20.0 16.0 Blood Gas Tidal Volume 500.0 500.0 Oxyhemoglobin Percent 91.5 L 92.9 L Total Hemoglobin 12.6 14.8 Ammonia 44 H Test 09/19/16 15:45 09/19/16 17:23 09/19/16 19:50 09/19/16 21:10 Potassium Level 5.7 H 4.8 Bedside Glucose 119 Arterial Blood HCO3 22.6 Arterial Blood Base Excess -1.6 Arterial Blood Oxygen Saturation 94.4 L Sky Test ACCEPTAB Arterial Blood Gas Puncture Site Left Radial Arterial Blood Carboxyhemoglobin 0.4 Arterial Blood Date Drawn 09/19/2016 7:50:47 PM Arterial Blood Methemoglobin 0.3 Arterial Blood pCO2 (Temp correct) 36.6 Arterial Blood pH (Temp corrected) 7.408 Arterial Blood pO2 (Temp corrected) 74.1 L Blood Gas A-a O2 Differential 241.2 H Blood Gas Inspiratory Pressure 23.0 Blood Gas Low PEEP Setting 5.0 Blood Gas Modality VENT - AC Blood Gas Notified Time 09/19/2016 8:08:55 PM Blood Gas Notified Whom HG Blood Gas Specimen Source Blood arterial Blood Gas Temperature 37.0 Blood Gas Tidal Volume 500.0 FiO2 50.0 Oxyhemoglobin Percent 93.7 Total Hemoglobin 13.0 Test 09/20/16 04:00 Activated Partial Thromboplast Time 42.9 H Anion Gap 11 Basophils # 0.0 Basophils % 0.1 Blood Urea Nitrogen 33 H Calcium Level 6.8 L Carbon Dioxide Level 30 Chloride Level 97 Creatinine 0.90 Eosinophils # 0.0 Eosinophils % 0.1 Glucose Level 87 Hematocrit 34.9 L Hemoglobin 11.5 L INR International Normalized Ratio 3.47 Lymphocytes # 0.6 L Lymphocytes % 6.5 L Magnesium Level 2.2 Mean Corpuscular Hemoglobin 30.2 Mean Corpuscular Hemoglobin Concent 33.0 Mean Corpuscular Volume 91.4 Mean Platelet Volume 9.6 Monocytes # 1.1 H Monocytes % 11.5 H Neutrophils # 7.6 H Neutrophils % 81.8 H Nucleated Red Blood Cells # 0.0 Nucleated Red Blood Cells % 0.0 Phosphorus Level 2.5 Platelet Count 143 Potassium Level 3.9 Prothrombin Time 35.4 #H Prothrombin Time Ratio 2.8 Red Blood Count 3.82 L Red Cell Distribution Width 14.3 Sodium Level 134 L Thrombin Time 17.9 White Blood Count 9.3 # Medications Current Medications Sodium Chloride (NS) 1,000 ml @ 100 mls/hr Q10H IV Last administered on at 23:28; Admin Dose 100 MLS/HR; Start 09/15/16 at 17:50 Lorazepam (Ativan) 0.5 mg Q6H PRN IV ANXIETY Last administered on 09/19/16at 09 :23; Admin Dose 0.5 MG; Start 09/15/16 at 18:00 Ondansetron HCl (Zofran Inj) 4 mg Q6H PRN IV NAUSEA AND/OR VOMITING; Start at 18:00 Morphine Sulfate (morphine) 2 mg Q4H PRN IV PAIN LEVEL 7-10 Last administered on 09/18/16at 08:47; Admin Dose 2 MG; Start 09/15/16 at 18:00 Haloperidol (Haldol) 5 mg Q6H PRN IM AGITATION Last administered on 09/19/16at 10:40; Admin Dose 5 MG; Start 09/18/16 at 11:30 Furosemide 40 mg 40 mg DAILY IV Last administered on 09/20/16 09:18; Admin Dose 40 MG; Start 09/18/16 at 14:30 Cefepime HCl 50 ml @ 100 mls/hr Q12 IVPB Last administered on 09/19/16at 20:57 ; Admin Dose 100 MLS/HR; Start 09/19/16 at 11:30 Vancomycin HCl 1.5 gm/Sodium Chloride 250 ml @ 83.333 mls/ hr Q12H IVPB Last administered on 09/20/16 01:14; Admin Dose 83.333 MLS/HR; Start 09/19/16 at 23: 30 Propofol (Diprivan) 100 ml @ 3.105 mls/ hr Q12H IV Last administered on 03:32; Admin Dose 12.42 MLS/HR; Start 09/19/16 at 13:30 Famotidine (Pepcid Iv) 20 mg BID IV Last administered on 09/20/16 09:17; Admin Dose 20 MG; Start 09/19/16 at 21:00 Acetaminophen (Tylenol Liquid) 650 mg Q6H PRN NGT PAIN AND OR ELEVATED TEMP; Start 09/19/16 at 16:00 Assessment/Plan Chief Complaint/Hosp Course IMPRESSION AND PLAN 1. Hypoxemic respiratory failure. Dense right-sided pneumonia and pleural effusion 2. Acute pulmonary emboli. 3. Acute pneumonia and pleural effusion. 4. Encephalopathy, likely toxic metabolic. 5. Transaminitis PLAN 1. Continue mechanical ventilation CT chest to evaluate lung parenchyma may need thoracentesis 2. Hold Coumadin for likely thoracentesis. 3. Continue antibiotics broaden coverage for possible aspiration component. 4. DVT and GI prophylaxis. Problems: AMANDA STONE MD, [facility] Sep 20, 2016 10:13
[2016-09-20] MEDS: SOD CHLORIDE 0.9% 1,000 ML IV SCH ×3 (10:20→21:45)
[2016-09-20] MEDS: CEFEPIME 2GM/50 ML (PMX) 50 ML IVPB SCH ×2 (11:07→21:45)
--- NOTE | 2016-09-20 11:25 | PN ---
Date/Time of Note Date/Time of Note DATE: 09/20/16 TIME: 11:24 Assessment/Plan VTE Prophylaxis VTE Prophylaxis Intervention: other Lines/Catheters IV Catheter Type (from Nrs): Central Line Central line still needed: Yes Urinary Cath still in place: Yes Reason Cath still needed: skin wounds contaminated by urine Assessment/Plan Chief Complaint/Hosp Course 1) pneumonia - intravenous antibiotics 2) pulmonary embolus - anticoagulation - oxygen 3) agitation - BZDs prn 4) respiratory failure - on ventilator now - appreciate pulmonary assistance Problems: Subjective 24 Hr Interval Summary Free Text/Dictation Patient is sedated and intubated Exam/Review of Systems Vital Signs Vitals Vital Signs Date Time Temp Pulse Resp B/P Pulse Ox O2 Delivery O2 Flow Rate FiO2 09/20/16 08:37 50 09/20/16 08:00 88 09/20/16 07:30 98.8 26 104/70 97 Mechanical Ventilator 09/19/16 11:30 6.0 Intake and Output 09/19/16 09/19/16 09/20/16 15:00 23:00 07:00 Intake Total 387.81 ml 1435.18 ml 1036.94 ml Output Total 590 ml 390 ml Balance 387.81 ml 845.18 ml 646.94 ml Exam Constitutional: well developed Head: atraumatic, normocephalic Neck: supple Respiratory: diminished breath sounds Cardiovascular: regular rate and rhythm Gastrointestinal: non-tender, soft Extremities: normal pulses Results Result Diagram: 09/20/16 0400 09/20/16 0400 Results 24 hrs Laboratory Tests Test 09/19/16 11:32 09/19/16 12:00 09/19/16 14:14 09/19/16 14:38 Arterial Blood HCO3 22.0 28.0 H 23.5 Arterial Blood Base Excess -2.1 4.1 H -5.1 L Sky Test ACCEPTAB ACCEPTAB ACCEPTAB Arterial Blood Gas Puncture Site Right Radial Right Radial Right Radial Arterial Blood Date Drawn 09/19/2016 1:00:01 PM 09/20/2016 7:45:57 AM 09/19/2016 3:40:51 PM Arterial Blood pCO2 (Temp correct) 36.0 39.7 58.4 H Arterial Blood pH (Temp corrected) 7.404 7.467 H 7.223 *L Arterial Blood pO2 (Temp corrected) 109.3 H 58.6 L 82.1 Blood Gas A-a O2 Differential 567.7 H 253.2 H 208.7 H Blood Gas Actual Respiration Rate 24 24 17 Blood Gas Critical Value Read Back JOSE Ribera RN Blood Gas Modality MASK - NRB VENT - AC VENT - AC Blood Gas Notified Time 09/19/2016 1:18:23 PM 09/20/2016 8:05:10 AM 09/19/2016 3:55:20 PM Blood Gas Notified Whom RDIX DT RDIX Blood Gas Specimen Source Blood arterial Blood arterial Blood arterial Blood Gas Temperature 37.0 37.0 37.0 FiO2 100.0 50.0 50.0 Arterial Blood Oxygen Saturation 91.9 L 93.4 L Arterial Blood Carboxyhemoglobin 0.3 0.3 Arterial Blood Methemoglobin 0.1 0.2 Blood Gas Low PEEP Setting 5.0 5.0 Blood Gas Respiration Rate 20.0 16.0 Blood Gas Tidal Volume 500.0 500.0 Oxyhemoglobin Percent 91.5 L 92.9 L Total Hemoglobin 12.6 14.8 Ammonia 44 H Test 09/19/16 15:45 09/19/16 17:23 09/19/16 19:50 09/19/16 21:10 Potassium Level 5.7 H 4.8 Bedside Glucose 119 Arterial Blood HCO3 22.6 Arterial Blood Base Excess -1.6 Arterial Blood Oxygen Saturation 94.4 L Sky Test ACCEPTAB Arterial Blood Gas Puncture Site Left Radial Arterial Blood Carboxyhemoglobin 0.4 Arterial Blood Date Drawn 09/19/2016 7:50:47 PM Arterial Blood Methemoglobin 0.3 Arterial Blood pCO2 (Temp correct) 36.6 Arterial Blood pH (Temp corrected) 7.408 Arterial Blood pO2 (Temp corrected) 74.1 L Blood Gas A-a O2 Differential 241.2 H Blood Gas Inspiratory Pressure 23.0 Blood Gas Low PEEP Setting 5.0 Blood Gas Modality VENT - AC Blood Gas Notified Time 09/19/2016 8:08:55 PM Blood Gas Notified Whom HG Blood Gas Specimen Source Blood arterial Blood Gas Temperature 37.0 Blood Gas Tidal Volume 500.0 FiO2 50.0 Oxyhemoglobin Percent 93.7 Total Hemoglobin 13.0 Test 09/20/16 04:00 Activated Partial Thromboplast Time 42.9 H Anion Gap 11 Basophils # 0.0 Basophils % 0.1 Blood Urea Nitrogen 33 H Calcium Level 6.8 L Carbon Dioxide Level 30 Chloride Level 97 Creatinine 0.90 Eosinophils # 0.0 Eosinophils % 0.1 Glucose Level 87 Hematocrit 34.9 L Hemoglobin 11.5 L INR International Normalized Ratio 3.47 Lymphocytes # 0.6 L Lymphocytes % 6.5 L Magnesium Level 2.2 Mean Corpuscular Hemoglobin 30.2 Mean Corpuscular Hemoglobin Concent 33.0 Mean Corpuscular Volume 91.4 Mean Platelet Volume 9.6 Monocytes # 1.1 H Monocytes % 11.5 H Neutrophils # 7.6 H Neutrophils % 81.8 H Nucleated Red Blood Cells # 0.0 Nucleated Red Blood Cells % 0.0 Phosphorus Level 2.5 Platelet Count 143 Potassium Level 3.9 Prothrombin Time 35.4 #H Prothrombin Time Ratio 2.8 Red Blood Count 3.82 L Red Cell Distribution Width 14.3 Sodium Level 134 L Thrombin Time 17.9 White Blood Count 9.3 # Medications Medications Current Medications Sodium Chloride (NS) 1,000 ml @ 100 mls/hr Q10H IV Last administered on 10:20; Admin Dose 100 MLS/HR; Start 09/15/16 at 17:50 Lorazepam (Ativan) 0.5 mg Q6H PRN IV ANXIETY Last administered on 09/19/16at 09 :23; Admin Dose 0.5 MG; Start 09/15/16 at 18:00 Ondansetron HCl (Zofran Inj) 4 mg Q6H PRN IV NAUSEA AND/OR VOMITING; Start at 18:00 Morphine Sulfate (morphine) 2 mg Q4H PRN IV PAIN LEVEL 7-10 Last administered on 09/18/16at 08:47; Admin Dose 2 MG; Start 09/15/16 at 18:00 Haloperidol (Haldol) 5 mg Q6H PRN IM AGITATION Last administered on 09/19/16at 10:40; Admin Dose 5 MG; Start 09/18/16 at 11:30 Furosemide 40 mg 40 mg DAILY IV Last administered on 09/20/16 09:18; Admin Dose 40 MG; Start 09/18/16 at 14:30 Cefepime HCl 50 ml @ 100 mls/hr Q12 IVPB Last administered on 09/20/16 11:07; Admin Dose 100 MLS/HR; Start 09/19/16 at 11:30 Vancomycin HCl 1.5 gm/Sodium Chloride 250 ml @ 83.333 mls/ hr Q12H IVPB Last administered on 09/20/16 01:14; Admin Dose 83.333 MLS/HR; Start 09/19/16 at 23: 30 Propofol (Diprivan) 100 ml @ 3.105 mls/ hr Q12H IV Last administered on 10:21; Admin Dose 12.42 MLS/HR; Start 09/19/16 at 13:30 Famotidine (Pepcid Iv) 20 mg BID IV Last administered on 09/20/16 09:17; Admin Dose 20 MG; Start 09/19/16 at 21:00 Acetaminophen (Tylenol Liquid) 650 mg Q6H PRN NGT PAIN AND OR ELEVATED TEMP; Start 09/19/16 at 16:00 DREW MOLINA Sep 20, 2016 11:25
--- NOTE | 2016-09-20 18:11 | RADRPT ---
Echocardiogram Report Patient Name: DORIS PERRIN Gender: Male Date: 1975 Study Date: 20-Sep-2016 Manager Loan: DAKSHA Location: I Ref. Physician: AMANDA STONE Quality: Adequate Procedures: Transthoracic echocardiogram with 2D, M-Mode, and Doppler examination. Indications: Pulmonary embolism. 2D/M Mode Doppler Measurement Value Normal Ranges Measurement Value Normal Ranges AoR Diam MM 3.2 cm AV Peak Kishore 0.9 m/sec ACS MM 2.2 cm AV Peak PG 3.6 mmHg LVIDd 2D 6.5 3.5 - 5.6 cm LVOT Peak Kishore 0.5 m/sec LVIDs 2D 5.8 2.1 - 4.1 cm LVOT Peak PG 1.2 mmHg LVPWd 2D 1.0 0.6 - 1.1 cm MV E Peak Kishore 1.0 m/sec IVSd 2D 0.8 0.6 - 1.1 cm MV A Peak Kishore 0.4 m/sec EDV 2D 216.5 cm3 MV E/A 2.6 ESV 2D 195.5 cm3 MV Decel Time 96 msec LA Dimen 2D 4.9 2.3 - 4.0 cm MV Decel [place] 10 MV E/A 2.6 TR Peak Kishore 2.5 m/sec TR Peak PG 24.8 mmHg PV Peak Kishore 0.8 m/sec PV Peak PG 2.0 mmHg RVSP 34.8 mmHg Findings Left Ventricle: Normal left ventricular wall thickness. Moderate enlargement of left ventricle cavity. Severe left ventricular systolic dysfunction. Ejection fraction is visually estimated at 20 %. Abnormal Diastolic Function. Right Ventricle: Mild enlargement of right ventricle. Moderate right ventricular hypokinesis. Left Atrium: There is moderate enlargement of left atrium. Right Atrium: There is mild enlargement of right atrium. Mitral Valve: Normal appearance of the mitral valve. Mild to moderate mitral valve regurgitation. Aortic Valve: Normal appearance of the aortic valve. No hemodynamically significant aortic stenosis by doppler. Trace aortic valve regurgitation. Tricuspid Valve: Normal appearance of the tricuspid valve. Estimated peak PA systolic pressure 35 mmHg. There is mild to moderate tricuspid regurgitation. Pulmonic Valve: Normal pulmonic valve appearance. There is trace to mild pulmonic regurgitation. Pericardium: Normal pericardium with no significant pericardial effusion. Right pleural effusion seen. Aorta: Normal aortic root. IVC: Inferior vena cava without respiratory collapse, however, patient on ventilator. Pulmonary Artery: Normal pulmonary artery size. Conclusions 1.Normal left ventricular wall thickness. Moderate enlargement of left ventricle cavity. Severe left ventricular systolic dysfunction. Ejection fraction is visually estimated at 20 %. Abnormal Diastolic Function. 2.Mild enlargement of right ventricle. Moderate right ventricular hypokinesis. 3.There is moderate enlargement of left atrium. 4.There is mild enlargement of right atrium. 5.Mild to moderate mitral valve regurgitation. 6.No hemodynamically significant aortic stenosis by doppler. Trace aortic valve regurgitation. 7.Estimated peak PA systolic pressure 35 mmHg. There is mild to moderate tricuspid regurgitation. 8.Normal pericardium with no significant pericardial effusion. Right pleural effusion seen. Electronically Signed By: Nikolay Luna 20-Sep-2016 13:36:22 -0800 Patient Name: DORIS PERRIN Study Date: 20-Sep-[id number]
--- NOTE | 2016-09-20 19:18 | RADRPT ---
PROCEDURE: XR Chest. CLINICAL INDICATION: Pneumonia. CHF. Dyspnea. TECHNIQUE: Single frontal chest x-ray. COMPARISON: 09/19/2016 FINDINGS: Severe consolidation is seen throughout the lungs, improved on the left but stable on the right in t he interim. The degree of consolidation is markedly worse on the right side. Significant right lay ering pleural effusion is likely present, grossly stable over time. Consolidation and effusion in t he retrocardiac left lung base is present as well. The heart size is enlarged. Mediastinal silhouet te is unremarkable. Endotracheal tube and nasogastric tube are both identified in good location wit hout evidence for pneumothorax. Left subclavian central line is in stable and good location with th e tip in the left brachiocephalic vein. No other significant acute changes are identified. The nba rounding osseous structures are unremarkable. IMPRESSION: 1. Severe dense consolidation / edema within the lungs. This is markedly worse on the right than o n the left. 2. There is improved aeration and decreased opacification in the left upper lung in the interim. 3. Stable persistent opacification throughout the right lung and left lung base is still present. 4. Significant bilateral pleural effusions, right greater than left, probably stable over time. 5. Marked cardiomegaly, unchanged over time. 6. Lines and tubes in good position without pneumothorax. RPTAT: HMJB .Chris Nguyen MD, Date Time Electronically viewed and signed by .Chris Nguyen MD, MD on 09/20/2016 10:26 .B/
--- NOTE | 2016-09-20 19:19 | RADRPT ---
PROCEDURE: CT Chest without contrast. CLINICAL INDICATION: 40-year-old male with pleural effusion and pneumonia. TECHNIQUE: CT scan of the chest with and without contrast was performed on a multislice CT scanner without the use of contrast. Coronal and sagittal reformatted images were obtained from the axial source images. The images were reviewed on a high-resolution PACS workstation. RADIATION DOSE: CTDIvol: 16.4 mGyDLP: 663.2 mGy-cm COMPARISON: Multiple prior examinations including most recent chest x-ray on 09/20/2016, CTPA 08/21 FINDINGS: There is interval development of a significantly prominent right-sided pleural effusion, measuring a maximum of 6.2 mm in diameter, with subsequent severe compressive atelectasis of the right lower lo be and the posterior aspect of the right upper lobe. There are patchy infiltrates involving the aer ated portion of the right middle lobe and the anterior and lateral segments of the right lower lobe. There are patchy infiltrates involving the lingula of the left upper lobe as well as the apex of t he left upper lobe. There is a small left-sided pleural effusion measuring a maximum of 1.4 cm in d iameter. There is associated compressive atelectasis in the posterior basilar segment of the left l ower lobe. There are patchy infiltrates in the left lower lobe. No contrast was administered for e valuation of the previously visualized pulmonary emboli. There is no perihilar, mediastinal or supr aclavicular lymphadenopathy. The airway and esophagus are normal in appearance. The tracheobronchovascular tree bifurcates normally. The mediastinum is unremarkable. The vascular stru ctures of the mediastinum are normal in course and caliber. The aorta and great vessels are normal in appearance. There is an endotracheal tube in place with tip in the upper thoracic trachea. Ther e is a nasogastric tube in place with tip stomach. There is a left subclavian central line with tip in the superior vena cava. The heart size is normal without evidence for pericardial thickening or effusion. The axillary regions, subpectoral regions, and supraclavicular regions are all unremarkable. Imagin g obtained through the upper abdomen reveals no acute abnormality. The surrounding osseous structur es are remarkable for mild degenerative spondylosis of the spine. No osteolytic or osteoblastic les ion is detected. IMPRESSION: 1. Interval development of severe right-sided pleural effusion measuring a maximum of 6.1 cm with c ompressive atelectasis of the right lower lobe and posterior segments of the right upper lobe. 2. There are patchy infiltrates involving the right middle lobe, visualized portion of the right lo wer lobe, left lower lobe and lingula of the left upper lobe, which are nonspecific. These may be r elated to multifocal pneumonia, however sequelae of patient's previously visualized pulmonary emboli (Baldwin's Hump) are not excluded. 3. Nasogastric tube, central line and endotracheal tube in place. RPTAT: HGAS .Celso Farmer MD, MD Date Time Electronically viewed and signed by .Celso Farmer MD, MD on 09/20/2016 15:24 .S/
--- NOTE | 2016-09-20 19:45 | PN ---
Date/Time of Note Date/Time of Note DATE: 09/20/16 TIME: 19:41 Assessment/Plan Lines/Catheters IV Catheter Type (from Nrsg): Central Line Tang in Place (from Nrsg): Yes Assessment/Plan Chief Complaint/Hosp Course IMPRESSION 1. Pulmonary embolism. 2. Pneumonia. [address] Interval development of severe right-sided pleural effusion measuring a maximum of 6.1 cm with compressive atelectasis of the right lower lobe and posterior segments of the right upper lobe. RECOMMENDATIONS: We will monitor the pleural effusion. . . Discussed with the nursing staff. Problems: Subjective 24 Hr Interval Summary Constitutional: improved Pain Control: mild Exam/Review of Systems Vital Signs Vitals Vital Signs Date Time Temp Pulse Resp B/P Pulse Ox O2 Delivery O2 Flow Rate FiO2 09/20/16 17:30 97 26 108/77 100 Mechanical Ventilator 09/20/16 17:00 50 09/20/16 16:00 100.2 09/19/16 11:30 6.0 Intake and Output 09/19/16 09/19/16 09/20/16 15:00 23:00 07:00 Intake Total 387.81 ml 1435.18 ml 1149.36 ml Output Total 590 ml 390 ml Balance 387.81 ml 845.18 ml 759.36 ml Exam ENMT: mucosa pink and moist, nl external ears & nose, nl lips & teeth, nl nasal mucosa & septum Neck: non-tender, supple Respiratory: clear to auscultation, normal air movement Cardiovascular: nl pulses, regular rate and rhythm Gastrointestinal: nl liver, spleen, non-tender, soft Results Result Diagram: 09/20/1639909/20/16399 YOUNG HAY MD Sep 20, 2016 19:44
[2016-09-20] MEDS: ACETAMINOPHEN 650MG/20.3ML CUP NGT PRN (22:50)
[2016-09-21] VITALS (54 sets, daily range): BP systolic 92–107; BP diastolic 57–74; PULSE 84–101; RESP 21–29
[2016-09-21] MEDS: VANCOMYCIN 1.5 GM in SOD CHLORIDE 0.9% 250 ML IVPB SCH ×3 (00:03→23:55)
[2016-09-21] MEDS: PROPOFOL 100 ML IV SCH ×4 (04:31→20:54)
[2016-09-21 05:19] LABS: BASOPHILS % 0.4 % (0.0-2.0); HEMATOCRIT 34.7 % (42.0-52.0); HEMOGLOBIN 11.4 g/dl (14.0-18.0); LYMPHOCYTES # 0.5 10^3/ul (0.8-2.9); LYMPHOCYTES % 7.7 % (15.0-51.0); MEAN CORPUSCULAR HEMOGLOBIN 29.7 pg (29.0-33.0); MEAN CORPUSCULAR HGB CONC 32.7 g/dl (32.0-37.0); MEAN CORPUSCULAR VOLUME 90.7 fl (82.0-101.0); MEAN PLATELET VOLUME 9.6 fl (7.4-10.4); MONOCYTE # 0.5 10^3/ul (0.3-0.9); MONOCYTES % 7.8 % (0.0-11.0); NEUTROPHIL # 5.5 10^3/ul (1.6-7.5); NEUTROPHILS % 84.1 % (39.0-77.0); PLATELET COUNT 154 10^3/UL (140-440); RED BLOOD COUNT 3.83 10^6/ul (4.70-6.10); RED CELL DISTRIBUTION WIDTH 14.7 % (11.5-14.5); UNCORRECTED WBC 6.6 10^3/ul (4.8-10.8); WHITE BLOOD COUNT 6.6 10^3/ul (4.8-10.8)
[2016-09-21 05:23] LABS: INR 2.19; PROTIME 24.6 Sec (12.2-14.2); PT RATIO 1.9
[2016-09-21 05:35] LABS: CONDITION 1; LH ANALYZER COMMENTS 1
[2016-09-21 05:52] LABS: POTASSIUM 3.5 mmol/L (3.5-5.1)
[2016-09-21 05:55] LABS: CREATININE 0.86 mg/dl (0.61-1.24)
[2016-09-21 05:56] LABS: CALCIUM 6.7 mg/dl (8.4-10.2); MAGNESIUM 2.3 mg/dl (1.7-2.5); PHOSPHORUS 2.3 mg/dl (2.5-4.9)
--- NOTE | 2016-09-21 08:18 | RADRPT ---
PROCEDURE: XR Chest. CLINICAL INDICATION: Shortness of breath. TECHNIQUE: Single frontal view. COMPARISON: 09/20/2016. FINDINGS: The endotracheal tube, left arm PICC line, and nasogastric tube remain in satisfactory position. There is dense consolidation throughout the right lung and a large right pleural effusion, worse nilda n seen previously. Consolidation in the left mid and lower lung zones and small left pleural effusi on are unchanged. The heart is enlarged. There is no pneumothorax. IMPRESSION: 1. Worse appearance of the right lung and larger right pleural effusion. 2. No other change from 09/20/2016. RPTAT: QQ .Zack Gonsalez MD, MD Date Time Electronically viewed and signed by .Zack Gonsalez MD, MD on 09/21/2016 08:18 .R/
[2016-09-21 08:31] LABS: AADO2 Arterial 250.7 mmHg (7.0-24.0); Allen Test ACCEPTAB; Arterial Base Excess 2.5 mmol/L (-3.0-3); Arterial COHb 0.3 % (0.0-3.0); Arterial Fraction of Oxyhgb 92.9 % (93.0-99.0); Arterial MetHb 0.1 % (0.0-1.5); Arterial Total Hemglobin 12.7 g/dl (12.0-18.0); MODE VENT - AC
[2016-09-21] MEDS: CEFEPIME 2GM/50 ML (PMX) 50 ML IVPB SCH ×2 (09:59→20:54)
[2016-09-21] MEDS: FAMOTIDINE 20 MG INJ IV SCH ×2 (10:00→20:54)
[2016-09-21] MEDS: FUROSEMIDE 40 MG INJ IV SCH (10:00)
[2016-09-21] MEDS: SOD CHLORIDE 0.9% 1,000 ML IV SCH ×2 (10:36→20:54)
--- NOTE | 2016-09-21 10:40 | CONS ---
Date/Time of Note Date/Time of Note DATE: 09/21/16 TIME: 10:37 Consult Date/Type/Reason Admit Date/Time Sep 15, 2016 at 16:54 Type of Consultation: pulmonary Subjective Patient was intubated states on mechanical ventilation appears comfortable High residuals noted Objective Vital Signs Date Time Temp Pulse Resp B/P Pulse Ox O2 Delivery O2 Flow Rate FiO2 09/21/16 08:00 86 09/21/16 06:30 29 94/62 94 Mechanical Ventilator 09/21/16 05:05 50 09/21/16 04:00 99.0 09/19/16 11:30 6.0 Intake and Output 09/20/16 09/20/16 09/21/16 15:00 23:00 07:00 Intake Total 1086.94 ml 886.94 ml 474.84 ml Output Total 1550 ml 620 ml 285 ml Balance -463.06 ml 266.94 ml 189.84 ml PHYSICAL EXAMINATION intubated on mechanical ventilation VITAL SIGNS: As above NECK: Obvious labored breathing, no elevated JVD. CARDIAC: S1, S2, tachycardia. CHEST: Diminished air entry right side greater than left. ABDOMEN: Obese, soft, nontender, no guarding, no rebound. EXTREMITIES: No cyanosis, clubbing or edema. NEUROLOGIC: Moves all 4 limbs. Results/Medications Result Diagram: 09/21/16 0400 09/21/16 0400 Results 24 hrs Chest x-ray Moderate right effusion versus infiltrate Laboratory Tests Test 09/20/16 22:28 09/21/16 04:00 09/21/16 07:00 Vancomycin Level Trough 13.4 Anion Gap 8 Basophils # 0.0 Basophils % 0.4 Blood Morphology Comment Blood Urea Nitrogen 28 H Calcium Level 6.7 L Carbon Dioxide Level 31 Chloride Level 101 Creatinine 0.86 Eosinophils # 0.0 Eosinophils % 0.0 Glucose Level 75 Hematocrit 34.7 L Hemoglobin 11.4 L INR International Normalized Ratio 2.19 Lymphocytes # 0.5 L Lymphocytes % 7.7 L Magnesium Level 2.3 Mean Corpuscular Hemoglobin 29.7 Mean Corpuscular Hemoglobin Concent 32.7 Mean Corpuscular Volume 90.7 Mean Platelet Volume 9.6 Monocytes # 0.5 Monocytes % 7.8 Neutrophils # 5.5 Neutrophils % 84.1 H Nucleated Red Blood Cells # 0.0 Nucleated Red Blood Cells % 0.0 Phosphorus Level 2.3 L Platelet Count 154 Potassium Level 3.5 Prothrombin Time 24.6 #H Prothrombin Time Ratio 1.9 Red Blood Count 3.83 L Red Cell Distribution Width 14.7 H Sodium Level 136 White Blood Count 6.6 # Arterial Blood HCO3 26.0 Arterial Blood Base Excess 2.5 Arterial Blood Oxygen Saturation 93.3 L Sky Test ACCEPTAB Arterial Blood Gas Puncture Site Right Radial Arterial Blood Carboxyhemoglobin 0.3 Arterial Blood Date Drawn 09/21/2016 8:05:54 AM Arterial Blood Methemoglobin 0.1 Arterial Blood pCO2 (Temp correct) 36.5 Arterial Blood pH (Temp corrected) 7.471 H Arterial Blood pO2 (Temp corrected) 64.7 L Blood Gas A-a O2 Differential 250.7 H Blood Gas Actual Respiration Rate 25 Blood Gas Low PEEP Setting 5.0 Blood Gas Modality VENT - AC Blood Gas Notified Time 09/21/2016 8:31:15 AM Blood Gas Notified Whom CW Blood Gas Respiration Rate 16.0 Blood Gas Specimen Source Blood arterial Blood Gas Temperature 37.0 Blood Gas Tidal Volume 500.0 FiO2 50.0 Oxyhemoglobin Percent 92.9 L Total Hemoglobin 12.7 Medications Current Medications Sodium Chloride (NS) 1,000 ml @ 100 mls/hr Q10H IV Last administered on 21:45; Admin Dose 100 MLS/HR; Start 09/15/16 at 17:50 Lorazepam (Ativan) 0.5 mg Q6H PRN IV ANXIETY Last administered on 09/19/16 09 :23; Admin Dose 0.5 MG; Start 09/15/16 at 18:00 Ondansetron HCl (Zofran Inj) 4 mg Q6H PRN IV NAUSEA AND/OR VOMITING; Start at 18:00 Morphine Sulfate (morphine) 2 mg Q4H PRN IV PAIN LEVEL 7-10 Last administered on 09/18/16 08:47; Admin Dose 2 MG; Start 09/15/16 at 18:00 Haloperidol (Haldol) 5 mg Q6H PRN IM AGITATION Last administered on 09/19/16 10:40; Admin Dose 5 MG; Start 09/18/16 at 11:30 Furosemide 40 mg 40 mg DAILY IV Last administered on 09/21/16 10:00; Admin Dose 40 MG; Start 09/18/16 at 14:30 Cefepime HCl 50 ml @ 100 mls/hr Q12 IVPB Last administered on 09/21/16 09:59; Admin Dose 100 MLS/HR; Start 09/19/16 at 11:30 Vancomycin HCl 1.5 gm/Sodium Chloride 250 ml @ 83.333 mls/ hr Q12H IVPB Last administered on 09/21/16 00:03; Admin Dose 83.333 MLS/HR; Start 09/19/16 at 23: 30 Propofol (Diprivan) 100 ml @ 3.105 mls/ hr Q12H IV Last administered on 04:31; Admin Dose 12.42 MLS/HR; Start 09/19/16 at 13:30 Famotidine (Pepcid Iv) 20 mg BID IV Last administered on 09/21/16 10:00; Admin Dose 20 MG; Start 09/19/16 at 21:00 Acetaminophen (Tylenol Liquid) 650 mg Q6H PRN NGT PAIN AND OR ELEVATED TEMP Last administered on 09/20/16 22:50; Admin Dose 650 MG; Start 09/19/16 at 16:00 Assessment/Plan Chief Complaint/Hosp Course IMPRESSION AND PLAN 1. Hypoxemic respiratory failure. Dense right-sided pneumonia and pleural effusion 2. Acute pulmonary emboli. 3. Acute pneumonia and pleural effusion. 4. Encephalopathy, likely toxic metabolic. 5. Transaminitis 6. Elevated INR, on anticoagulation PLAN 1. Continue mechanical ventilation CT chest shows moderate right effusion with compressive atalectasis. 2. Hold Coumadin for likely thoracentesis.Vitamin K x1 3. Continue antibiotics broaden coverage for possible aspiration component. 4. DVT and GI prophylaxis. 5. Tube feeding once decreased residuals. Problems: AMANDA STONE MD, [facility] Sep 21, 2016 10:40
--- NOTE | 2016-09-21 12:27 | PN ---
Date/Time of Note Date/Time of Note DATE: 09/21/16 TIME: 12:26 Assessment/Plan VTE Prophylaxis VTE Prophylaxis Intervention: other Lines/Catheters IV Catheter Type (from Nrs): Central Line Central line still needed: Yes Urinary Cath still in place: Yes Reason Cath still needed: skin wounds contaminated by urine Assessment/Plan Chief Complaint/Hosp Course 1) pneumonia - intravenous antibiotics 2) pulmonary embolus - anticoagulation - oxygen 3) agitation - BZDs prn 4) respiratory failure - on ventilator now - appreciate pulmonary assistance 5) pulmonary effusion - will have thoracentesis Problems: Subjective 24 Hr Interval Summary Free Text/Dictation Patient is sedated, intubated Exam/Review of Systems Vital Signs Vitals Vital Signs Date Time Temp Pulse Resp B/P Pulse Ox O2 Delivery O2 Flow Rate FiO2 09/21/16 12:00 88 09/21/16 11:10 27 93 50 09/21/16 11:00 100/68 Mechanical Ventilator 09/21/16 08:00 97.8 09/19/16 11:30 6.0 Intake and Output 09/20/16 09/20/16 09/21/16 15:00 23:00 07:00 Intake Total 1086.94 ml 886.94 ml 474.84 ml Output Total 1550 ml 620 ml 410 ml Balance -463.06 ml 266.94 ml 64.84 ml Exam Constitutional: well developed Neck: supple Respiratory: diminished breath sounds Cardiovascular: regular rate and rhythm Gastrointestinal: non-tender, soft Extremities: normal pulses Results Result Diagram: 09/21/16 0400 09/21/16 0400 Results 24 hrs Laboratory Tests Test 09/20/16 22:28 09/21/16 04:00 09/21/16 07:00 Vancomycin Level Trough 13.4 Anion Gap 8 Basophils # 0.0 Basophils % 0.4 Blood Morphology Comment Blood Urea Nitrogen 28 H Calcium Level 6.7 L Carbon Dioxide Level 31 Chloride Level 101 Creatinine 0.86 Eosinophils # 0.0 Eosinophils % 0.0 Glucose Level 75 Hematocrit 34.7 L Hemoglobin 11.4 L INR International Normalized Ratio 2.19 Lymphocytes # 0.5 L Lymphocytes % 7.7 L Magnesium Level 2.3 Mean Corpuscular Hemoglobin 29.7 Mean Corpuscular Hemoglobin Concent 32.7 Mean Corpuscular Volume 90.7 Mean Platelet Volume 9.6 Monocytes # 0.5 Monocytes % 7.8 Neutrophils # 5.5 Neutrophils % 84.1 H Nucleated Red Blood Cells # 0.0 Nucleated Red Blood Cells % 0.0 Phosphorus Level 2.3 L Platelet Count 154 Potassium Level 3.5 Prothrombin Time 24.6 #H Prothrombin Time Ratio 1.9 Red Blood Count 3.83 L Red Cell Distribution Width 14.7 H Sodium Level 136 White Blood Count 6.6 # Arterial Blood HCO3 26.0 Arterial Blood Base Excess 2.5 Arterial Blood Oxygen Saturation 93.3 L Sky Test ACCEPTAB Arterial Blood Gas Puncture Site Right Radial Arterial Blood Carboxyhemoglobin 0.3 Arterial Blood Date Drawn 09/21/2016 8:05:54 AM Arterial Blood Methemoglobin 0.1 Arterial Blood pCO2 (Temp correct) 36.5 Arterial Blood pH (Temp corrected) 7.471 H Arterial Blood pO2 (Temp corrected) 64.7 L Blood Gas A-a O2 Differential 250.7 H Blood Gas Actual Respiration Rate 25 Blood Gas Low PEEP Setting 5.0 Blood Gas Modality VENT - AC Blood Gas Notified Time 09/21/2016 8:31:15 AM Blood Gas Notified Whom CW Blood Gas Respiration Rate 16.0 Blood Gas Specimen Source Blood arterial Blood Gas Temperature 37.0 Blood Gas Tidal Volume 500.0 FiO2 50.0 Oxyhemoglobin Percent 92.9 L Total Hemoglobin 12.7 Medications Medications Current Medications Sodium Chloride (NS) 1,000 ml @ 100 mls/hr Q10H IV Last administered on t 10:36; Admin Dose 100 MLS/HR; Start 09/15/16 at 17:50 Lorazepam (Ativan) 0.5 mg Q6H PRN IV ANXIETY Last administered on 09/19/16at 09 :23; Admin Dose 0.5 MG; Start 09/15/16 at 18:00 Ondansetron HCl (Zofran Inj) 4 mg Q6H PRN IV NAUSEA AND/OR VOMITING; Start at 18:00 Morphine Sulfate (morphine) 2 mg Q4H PRN IV PAIN LEVEL 7-10 Last administered on 09/18/16at 08:47; Admin Dose 2 MG; Start 09/15/16 at 18:00 Haloperidol (Haldol) 5 mg Q6H PRN IM AGITATION Last administered on 09/19/16at 10:40; Admin Dose 5 MG; Start 09/18/16 at 11:30 Furosemide 40 mg 40 mg DAILY IV Last administered on 09/21/16 10:00; Admin Dose 40 MG; Start 09/18/16 at 14:30 Cefepime HCl 50 ml @ 100 mls/hr Q12 IVPB Last administered on 09/21/16 09:59; Admin Dose 100 MLS/HR; Start 09/19/16 at 11:30 Vancomycin HCl 1.5 gm/Sodium Chloride 250 ml @ 83.333 mls/ hr Q12H IVPB Last administered on 09/21/16 10:54; Admin Dose 83.333 MLS/HR; Start 09/19/16 at 23: 30 Propofol (Diprivan) 100 ml @ 3.105 mls/ hr Q12H IV Last administered on 10:55; Admin Dose 12.42 MLS/HR; Start 09/19/16 at 13:30 Famotidine (Pepcid Iv) 20 mg BID IV Last administered on 09/21/16 10:00; Admin Dose 20 MG; Start 09/19/16 at 21:00 Acetaminophen 650 mg 650 mg Q6H PRN NGT PAIN AND OR ELEVATED TEMP Last administered on 09/20/16 22:50; Admin Dose 650 MG; Start 09/19/16 at 16:00 Phytonadione/ Dextrose (Vitamin K/D5W) 50.5 ml @ 50.5 mls/hr ONCE ONCE IVPB ; Start 09/21/16 at 12:30; Stop 09/21/16 at 13:29 DREW MOLINA Sep 21, 2016 12:27
[2016-09-21] MEDS ORDERED: PHYTONADIONE 5 MG in DEXTROSE 5% 50 ML IVPB ONE (12:30)
[2016-09-21] MEDS: LEVALBUTEROL (HFA) 15 GM INHALER INH PRN (13:40)
[2016-09-21] MEDS: ACETAMINOPHEN 650MG/20.3ML CUP NGT PRN (15:37)
--- NOTE | 2016-09-21 18:00 | PN ---
Date/Time of Note Date/Time of Note DATE: 09/21/16 TIME: 17:59 Assessment/Plan Lines/Catheters IV Catheter Type (from Nrs): Central Line Tang in Place (from Nrs): Yes Assessment/Plan Chief Complaint/Hosp Course IMPRESSION 1. Pulmonary embolism. 2. Pneumonia. [address] Interval development of severe right-sided pleural effusion measuring a maximum of 6.1 cm with compressive atelectasis of the right lower lobe and posterior segments of the right upper lobe. RECOMMENDATIONS: We will monitor the pleural effusion. . . Discussed with the nursing staff. Problems: Subjective 24 Hr Interval Summary Constitutional: improved Pain Control: mild Exam/Review of Systems Vital Signs Vitals Vital Signs Date Time Temp Pulse Resp B/P Pulse Ox O2 Delivery O2 Flow Rate FiO2 09/21/16 17:10 93 27 96 50 09/21/16 16:00 95/73 09/21/16 15:00 100.2 Mechanical Ventilator 09/19/16 11:30 6.0 Intake and Output 09/20/16 09/20/16 09/21/16 15:00 23:00 07:00 Intake Total 1086.94 ml 886.94 ml 587.26 ml Output Total 1550 ml 620 ml 410 ml Balance -463.06 ml 266.94 ml 177.26 ml Exam ENMT: mucosa pink and moist, nl external ears & nose, nl lips & teeth, nl nasal mucosa & septum Neck: non-tender, supple Respiratory: clear to auscultation, normal air movement Cardiovascular: nl pulses, regular rate and rhythm Gastrointestinal: nl liver, spleen, non-tender, soft Results Result Diagram: 09/21/16 0400 09/21/16 0400 YOUNG HAY MD Sep 21, 2016 17:59
[2016-09-22] VITALS (56 sets, daily range): BP systolic 85–113; BP diastolic 56–88; PULSE 73–102; RESP 16–27
[2016-09-22] MEDS: morphine 2 MG INJ IV PRN (01:30)
[2016-09-22] MEDS: PROPOFOL 100 ML IV SCH ×6 (02:12→23:35)
[2016-09-22 04:40] LABS: BASOPHILS % 0.1 % (0.0-2.0); EOSINOPHILS % 0.1 % (0.0-7.0); HEMATOCRIT 36.4 % (42.0-52.0); HEMOGLOBIN 11.8 g/dl (14.0-18.0); LYMPHOCYTES # 0.7 10^3/ul (0.8-2.9); LYMPHOCYTES % 9.8 % (15.0-51.0); MEAN CORPUSCULAR HEMOGLOBIN 29.3 pg (29.0-33.0); MEAN CORPUSCULAR HGB CONC 32.5 g/dl (32.0-37.0); MEAN CORPUSCULAR VOLUME 90.4 fl (82.0-101.0); MEAN PLATELET VOLUME 9.2 fl (7.4-10.4); MONOCYTE # 0.6 10^3/ul (0.3-0.9); MONOCYTES % 7.8 % (0.0-11.0); NEUTROPHIL # 6.2 10^3/ul (1.6-7.5); NEUTROPHILS % 82.2 % (39.0-77.0); PLATELET COUNT 172 10^3/UL (140-440); RED BLOOD COUNT 4.03 10^6/ul (4.70-6.10); RED CELL DISTRIBUTION WIDTH 14.7 % (11.5-14.5); UNCORRECTED WBC 7.5 10^3/ul (4.8-10.8); WHITE BLOOD COUNT 7.5 10^3/ul (4.8-10.8)
[2016-09-22 04:48] LABS: INR 1.49; PROTIME 18.1 Sec (12.2-14.2); PT RATIO 1.4
[2016-09-22 04:56] LABS: CONDITION 1; LH ANALYZER COMMENTS 1
[2016-09-22 04:57] LABS: POTASSIUM 3.6 mmol/L (3.5-5.1)
[2016-09-22 04:59] LABS: CREATININE 0.86 mg/dl (0.61-1.24)
[2016-09-22 05:00] LABS: CALCIUM 6.6 mg/dl (8.4-10.2); PHOSPHORUS 2.4 mg/dl (2.5-4.9)
[2016-09-22 05:01] LABS: MAGNESIUM 2.1 mg/dl (1.7-2.5)
[2016-09-22 05:24] LABS: THROMBIN TIME 20.2 SEC (13.8-19.1)
--- NOTE | 2016-09-22 08:13 | RADRPT ---
PROCEDURE: XR Chest. CLINICAL INDICATION: Pneumonia, congestive heart failure, chest pain TECHNIQUE: Single frontal view of the chest. COMPARISON: 09/21/2016 chest radiograph. FINDINGS: Endotracheal tube, nasogastric tube, left-sided PICC line in satisfactory position. Mildly improved aeration of both lungs with moderate layering right-sided pleural effusion and assoc iated consolidation mildly improved. Mild left pleural effusion and associated consolidation are also mildly improved. Cardiac silhouette is partially obscured but appears to be upper limits of normal. No acute osseous abnormalities. IMPRESSION: Support devices are in satisfactory position. Moderate layering right-sided pleural effusion and mild left-sided pleural effusion with associated consolidations are both mildly improved. Overall findings suggestive of cardiopulmonary congestion. Differential considerations includes multifocal aspiration pneumonia. RPTAT: AADD .Davin Jansen MD, MD Date Time Electronically viewed and signed by .Davin Jansen MD, on 09/22/2016 08:13 .B/
[2016-09-22] MEDS: FUROSEMIDE 40 MG INJ IV SCH (08:21)
[2016-09-22] MEDS: FAMOTIDINE 20 MG INJ IV SCH ×2 (08:21→20:46)
[2016-09-22] MEDS: CEFEPIME 2GM/50 ML (PMX) 50 ML IVPB SCH ×2 (08:21→20:47)
[2016-09-22] MEDS: SOD CHLORIDE 0.9% 1,000 ML IV SCH ×3 (08:24→23:34)
--- NOTE | 2016-09-22 09:51 | CONS ---
Date/Time of Note Date/Time of Note DATE: 09/22/16 TIME: 09:50 Consult Date/Type/Reason Admit Date/Time Sep 15, 2016 at 16:54 Type of Consultation: pulmonary Subjective intubated sedated on mechanical ventilation Moderate secretions Objective Vital Signs Date Time Temp Pulse Resp B/P Pulse Ox O2 Delivery O2 Flow Rate FiO2 09/22/16 09:00 87 20 106/71 95 Mechanical Ventilator 09/22/16 08:57 40 09/22/16 08:00 98.9 09/19/16 11:30 6.0 Intake and Output 09/21/16 09/21/16 09/22/16 15:00 23:00 07:00 Intake Total 1215.502 ml 937.66 ml 650 ml Output Total 2110 ml 530 ml 395 ml Balance -894.498 ml 407.66 ml 255 ml PHYSICAL EXAMINATION intubated on mechanical ventilation VITAL SIGNS: As above NECK: Obvious labored breathing, no elevated JVD. CARDIAC: S1, S2, tachycardia. CHEST: Diminished air entry right side greater than left. ABDOMEN: Obese, soft, nontender, no guarding, no rebound. EXTREMITIES: No cyanosis, clubbing or edema. NEUROLOGIC: Moves all 4 limbs. Results/Medications Result Diagram: 09/22/16 0400 09/22/16 0400 Results 24 hrs Laboratory Tests Test 09/22/16 04:00 Activated Partial Thromboplast Time 32.0 Anion Gap 9 Basophils # 0.0 Basophils % 0.1 Blood Morphology Comment Blood Urea Nitrogen 23 H Calcium Level 6.6 L Carbon Dioxide Level 30 Chloride Level 104 Creatinine 0.86 Eosinophils # 0.0 Eosinophils % 0.1 Glucose Level 71 Hematocrit 36.4 L Hemoglobin 11.8 L INR International Normalized Ratio 1.49 Lymphocytes # 0.7 L Lymphocytes % 9.8 L Magnesium Level 2.1 Mean Corpuscular Hemoglobin 29.3 Mean Corpuscular Hemoglobin Concent 32.5 Mean Corpuscular Volume 90.4 Mean Platelet Volume 9.2 Monocytes # 0.6 Monocytes % 7.8 Neutrophils # 6.2 Neutrophils % 82.2 H Nucleated Red Blood Cells # 0.0 Nucleated Red Blood Cells % 0.0 Phosphorus Level 2.4 L Platelet Count 168 Potassium Level 3.6 Prothrombin Time 18.1 #H Prothrombin Time Ratio 1.4 Red Blood Count 4.03 L Red Cell Distribution Width 14.7 H Sodium Level 139 Thrombin Time 20.2 H White Blood Count 7.5 Medications Current Medications Sodium Chloride (NS) 1,000 ml @ 100 mls/hr Q10H IV Last administered on 20:54; Admin Dose 100 MLS/HR; Start 09/15/16 at 17:50 Lorazepam (Ativan) 0.5 mg Q6H PRN IV ANXIETY Last administered on 09/19/16at 09 :23; Admin Dose 0.5 MG; Start 09/15/16 at 18:00 Ondansetron HCl (Zofran Inj) 4 mg Q6H PRN IV NAUSEA AND/OR VOMITING; Start at 18:00 Morphine Sulfate (morphine) 2 mg Q4H PRN IV PAIN LEVEL 7-10 Last administered on 09/22/16 01:30; Admin Dose 2 MG; Start 09/15/16 at 18:00 Haloperidol (Haldol) 5 mg Q6H PRN IM AGITATION Last administered on 09/19/16at 10:40; Admin Dose 5 MG; Start 09/18/16 at 11:30 Furosemide 40 mg 40 mg DAILY IV Last administered on 09/22/16 08:21; Admin Dose 40 MG; Start 09/18/16 at 14:30 Cefepime HCl 50 ml @ 100 mls/hr Q12 IVPB Last administered on 09/22/16 08:21; Admin Dose 100 MLS/HR; Start 09/19/16 at 11:30 Vancomycin HCl 1.5 gm/Sodium Chloride 250 ml @ 83.333 mls/ hr Q12H IVPB Last administered on 09/21/16 23:55; Admin Dose 83.333 MLS/HR; Start 09/19/16 at 23: 30 Propofol (Diprivan) 100 ml @ 3.105 mls/ hr Q12H IV Last administered on 06:40; Admin Dose 21.735 MLS/HR; Start 09/19/16 at 13:30 Famotidine (Pepcid Iv) 20 mg BID IV Last administered on 09/22/16 08:21; Admin Dose 20 MG; Start 09/19/16 at 21:00 Acetaminophen (Tylenol Liquid) 650 mg Q6H PRN NGT PAIN AND OR ELEVATED TEMP Last administered on 09/21/16t 15:37; Admin Dose 650 MG; Start 09/19/16 at 16:00 Assessment/Plan Chief Complaint/Hosp Course IMPRESSION AND PLAN 1. Hypoxemic respiratory failure. Dense right-sided pneumonia and pleural effusion 2. Acute pulmonary emboli. 3. Acute pneumonia and pleural effusion. 4. Encephalopathy, likely toxic metabolic. 5. Transaminitis 6. Elevated INR, on anticoagulation status post vitamin K 1 PLAN 1. Continue mechanical ventilation CT chest shows moderate right effusion with compressive atalectasis. For thoracentesis today 2. Improved INR 3. Continue antibiotics broaden coverage for possible aspiration component. 4. DVT and GI prophylaxis. 5. Tube feeding once decreased residuals. Problems: AMANDA STONE MD, [facility] Sep 22, 2016 09:51
[2016-09-22 10:36] LABS: AADO2 Arterial 253.2 mmHg (7.0-24.0); Allen Test ACCEPTAB; Arterial Base Excess 4.1 mmol/L (-3.0-3); Arterial COHb 0.3 % (0.0-3.0); Arterial Fraction of Oxyhgb 91.5 % (93.0-99.0); Arterial MetHb 0.1 % (0.0-1.5); Arterial Total Hemglobin 12.6 g/dl (12.0-18.0); MODE VENT - AC
--- NOTE | 2016-09-22 11:00 | PN ---
Date/Time of Note Date/Time of Note DATE: 09/22/16 TIME: 10:59 Assessment/Plan VTE Prophylaxis VTE Prophylaxis Intervention: other Lines/Catheters IV Catheter Type (from Nrs): Central Line Central line still needed: Yes Urinary Cath still in place: Yes Reason Cath still needed: skin wounds contaminated by urine Assessment/Plan Chief Complaint/Hosp Course 1) pneumonia - intravenous antibiotics 2) pulmonary embolus - anticoagulation - oxygen 3) agitation - BZDs prn 4) respiratory failure - on ventilator now - appreciate pulmonary assistance 5) pulmonary effusion - will have thoracentesis Problems: Subjective 24 Hr Interval Summary Free Text/Dictation Patient is sedated, intubated Exam/Review of Systems Vital Signs Vitals Vital Signs Date Time Temp Pulse Resp B/P Pulse Ox O2 Delivery O2 Flow Rate FiO2 09/22/16 09:00 87 20 106/71 95 Mechanical Ventilator 09/22/16 08:57 40 09/22/16 08:00 98.9 09/19/16 11:30 6.0 Intake and Output 09/21/16 09/21/16 09/22/16 15:00 23:00 07:00 Intake Total 1215.502 ml 937.66 ml 771.73 ml Output Total 2110 ml 530 ml 395 ml Balance -894.498 ml 407.66 ml 376.73 ml Exam Constitutional: well developed Head: atraumatic, normocephalic Neck: supple Respiratory: diminished breath sounds Cardiovascular: regular rate and rhythm Gastrointestinal: non-tender, soft Results Result Diagram: 09/22/16 0400 09/22/16 0400 Results 24 hrs Laboratory Tests Test 09/22/16 04:00 Activated Partial Thromboplast Time 32.0 Anion Gap 9 Basophils # 0.0 Basophils % 0.1 Blood Morphology Comment Blood Urea Nitrogen 23 H Calcium Level 6.6 L Carbon Dioxide Level 30 Chloride Level 104 Creatinine 0.86 Eosinophils # 0.0 Eosinophils % 0.1 Glucose Level 71 Hematocrit 36.4 L Hemoglobin 11.8 L INR International Normalized Ratio 1.49 Lymphocytes # 0.7 L Lymphocytes % 9.8 L Magnesium Level 2.1 Mean Corpuscular Hemoglobin 29.3 Mean Corpuscular Hemoglobin Concent 32.5 Mean Corpuscular Volume 90.4 Mean Platelet Volume 9.2 Monocytes # 0.6 Monocytes % 7.8 Neutrophils # 6.2 Neutrophils % 82.2 H Nucleated Red Blood Cells # 0.0 Nucleated Red Blood Cells % 0.0 Phosphorus Level 2.4 L Platelet Count 168 Potassium Level 3.6 Prothrombin Time 18.1 #H Prothrombin Time Ratio 1.4 Red Blood Count 4.03 L Red Cell Distribution Width 14.7 H Sodium Level 139 Thrombin Time 20.2 H White Blood Count 7.5 Medications Medications Current Medications Sodium Chloride (NS) 1,000 ml @ 100 mls/hr Q10H IV Last administered on 20:54; Admin Dose 100 MLS/HR; Start 09/15/16 at 17:50 Lorazepam (Ativan) 0.5 mg Q6H PRN IV ANXIETY Last administered on 09/19/16at 09 :23; Admin Dose 0.5 MG; Start 09/15/16 at 18:00 Ondansetron HCl (Zofran Inj) 4 mg Q6H PRN IV NAUSEA AND/OR VOMITING; Start at 18:00 Morphine Sulfate (morphine) 2 mg Q4H PRN IV PAIN LEVEL 7-10 Last administered on 09/22/16 01:30; Admin Dose 2 MG; Start 09/15/16 at 18:00 Haloperidol (Haldol) 5 mg Q6H PRN IM AGITATION Last administered on 09/19/16at 10:40; Admin Dose 5 MG; Start 09/18/16 at 11:30 Furosemide 40 mg 40 mg DAILY IV Last administered on 09/22/16 08:21; Admin Dose 40 MG; Start 09/18/16 at 14:30 Cefepime HCl 50 ml @ 100 mls/hr Q12 IVPB Last administered on 09/22/16 08:21; Admin Dose 100 MLS/HR; Start 09/19/16 at 11:30 Vancomycin HCl 1.5 gm/Sodium Chloride 250 ml @ 83.333 mls/ hr Q12H IVPB Last administered on 09/21/16 23:55; Admin Dose 83.333 MLS/HR; Start 09/19/16 at 23: 30 Propofol (Diprivan) 100 ml @ 3.105 mls/ hr Q12H IV Last administered on 06:40; Admin Dose 21.735 MLS/HR; Start 09/19/16 at 13:30 Famotidine (Pepcid Iv) 20 mg BID IV Last administered on 09/22/16 08:21; Admin Dose 20 MG; Start 09/19/16 at 21:00 Acetaminophen (Tylenol Liquid) 650 mg Q6H PRN NGT PAIN AND OR ELEVATED TEMP Last administered on 09/21/16 15:37; Admin Dose 650 MG; Start 09/19/16 at 16:00 DREW MOLINA Sep 22, 2016 11:00
[2016-09-22] MEDS: VANCOMYCIN 1.5 GM in SOD CHLORIDE 0.9% 250 ML IVPB SCH ×2 (11:29→23:35)
--- NOTE | 2016-09-22 14:17 | EN ---
Date/Time of Note Date/Time of Note DATE: 09/22/16 TIME: 14:13 Event Note Medicine Medicine Event Note Cannot obtain consent from next of kin. No family members available. Needs urgent thoracentesis. [facility]DA STONE MD, [facility] Sep 22, 2016 14:17
--- NOTE | 2016-09-22 17:17 | RADRPT ---
PROCEDURE: US guided right thoracentesis. CLINICAL INDICATION: Shortness of breath. Right pleural effusion. TECHNIQUE: Prior to the procedure, informed consent was obtained. The risks, benefits, and alternatives were e xplained to the patient or the patient's family, including but not limited to bleeding, infection, p ain, visceral or vascular damage, shock, pneumothorax, chest tube placement, air embolism, and . The patient or the patient's family understood the risks and the alternatives and wished to proce ed with the study. Informed written consent was obtained. A procedural pause was performed. The patient's name, date of , and procedure to be performed were verified. Ultrasound of the right hemithorax was performed in the axial and sagittal planes. A right pleural e ffusion is noted. Utilizing ultrasound guidance, optimal location for entry to the pleural cavity wa s ascertained. The overlying skin was prepped and draped in the usual sterile fashion. Approximate ly 10 ml of 1% Xylocaine was injected locally for pain control. Using ultrasound guidance, a 5-Fren Yueh catheter was introduced into the right pleural space without difficulty. Fluid was aspirated . COMPARISON: None. FINDINGS: Initial ultrasound demonstrates fluid in the right pleural space. Approximately 1.5 liters of serou s fluid was aspirated and sent to the laboratory. IMPRESSION: 1. Satisfactory ultrasound-guided right thoracentesis. RPTAT: QQ .Zack Gonsalez MD, Date Time Electronically viewed and signed by .Zack Gonsalez MD, on 09/22/2016 17:17 .R/
[2016-09-22] MEDS ORDERED: LIDOCAINE 1% (MPF) 5 ML VIAL ONE (17:28)
--- NOTE | 2016-09-22 17:59 | RADRPT ---
PROCEDURE: XR Chest. CLINICAL INDICATION: Post thoracentesis. TECHNIQUE: AP view of the chest was obtained. COMPARISON: Multiple prior exams including most recent on 09/22/2015. FINDINGS: There has been interval right-sided thoracentesis. There is significantly improved right-sided pleu ral effusion. There is minimal residual hazy opacification of the right lower hemithorax which may be related to atelectasis versus pleural effusion. There is a trace left-sided pleural effusion. Th e lung apices are normally aerated. There is moderate cardiomegaly. There is mild prominence of th e central pulmonary vasculature. There is mild atherosclerosis of the thoracic aorta. There is an endotracheal tube in place with tip 2.8 cm above the ida. There is a nasogastric tube in place w ith tip beyond the margin of the film. There is no evidence of pneumothorax. IMPRESSION: 1. Interval thoracentesis on the right with significantly improved right-sided pleural effusion. N o evidence of pneumothorax. 2. Stable moderate cardiomegaly with central pulmonary vascular congestion. 3. Lines and tubes as discussed above. RPTAT: HGAS .Celso Farmer MD, MD Date Time Electronically viewed and signed by .Celso Farmer MD, on 09/22/2016 17:59 .S/
[2016-09-22 18:36] LABS: FLUID LD 1579 U/L; FLUID TOTAL PROTEIN < 2.0 g/dl; FLUID TYPE FLUID
[2016-09-22 18:54] LABS: FLUID GLUCOSE 74 mg/dl
[2016-09-22 18:55] LABS: FLUID TYPE FLUID
[2016-09-22 19:58] LABS: FLUID APPEARANCE HAZY; FLUID LYMPHOCYTES 55 %; FLUID MONOCYTES 25 %; FLUID NEUTROPHILS 5 %; FLUID RBC EST 3+; FLUID WBC'S 1110 /cmm
[2016-09-23] VITALS (66 sets, daily range): BP systolic 83–128; BP diastolic 52–82; PULSE 69–86; RESP 9–26
[2016-09-23] MEDS: PROPOFOL 100 ML IV SCH ×4 (03:57→15:54)
[2016-09-23 04:59] LABS: BASOPHILS % 0.1 % (0.0-2.0); CREATININE 0.66 mg/dl (0.61-1.24); EOSINOPHILS % 0.5 % (0.0-7.0); HEMATOCRIT 39.7 % (42.0-52.0); HEMOGLOBIN 12.8 g/dl (14.0-18.0); LYMPHOCYTES # 0.9 10^3/ul (0.8-2.9); LYMPHOCYTES % 10.7 % (15.0-51.0); MEAN CORPUSCULAR HEMOGLOBIN 29.2 pg (29.0-33.0); MEAN CORPUSCULAR HGB CONC 32.1 g/dl (32.0-37.0); MEAN CORPUSCULAR VOLUME 91.1 fl (82.0-101.0); MEAN PLATELET VOLUME 9.1 fl (7.4-10.4); MONOCYTE # 0.7 10^3/ul (0.3-0.9); NEUTROPHIL # 6.7 10^3/ul (1.6-7.5); NEUTROPHILS % 80.7 % (39.0-77.0); PLATELET COUNT 182 10^3/UL (140-440); RED BLOOD COUNT 4.36 10^6/ul (4.70-6.10); RED CELL DISTRIBUTION WIDTH 15.2 % (11.5-14.5); UNCORRECTED WBC 8.3 10^3/ul (4.8-10.8); WHITE BLOOD COUNT 8.3 10^3/ul (4.8-10.8)
[2016-09-23 05:00] LABS: PHOSPHORUS 2.7 mg/dl (2.5-4.9)
[2016-09-23 05:28] LABS: CONDITION 1; LH ANALYZER COMMENTS 1
[2016-09-23] MEDS: FAMOTIDINE 20 MG INJ IV SCH ×2 (08:25→20:23)
[2016-09-23] MEDS: FUROSEMIDE 40 MG INJ IV SCH ×2 (08:25→17:20)
[2016-09-23] MEDS: CEFEPIME 2GM/50 ML (PMX) 50 ML IVPB SCH ×2 (08:25→20:32)
--- NOTE | 2016-09-23 08:49 | RADRPT ---
PROCEDURE: XR Chest. CLINICAL INDICATION: Shortness of breath. TECHNIQUE: Single frontal view. COMPARISON: 09/22/2016. FINDINGS: The endotracheal tube, nasogastric tube, and left subclavian vein catheter remain in satisfactory po sition. There is air space disease bilaterally in the mid and lower lung zones consistent with pulm onary edema or bilateral pneumonia, unchanged. The heart is enlarged. There are moderate bilateral pleural effusions. There is no pneumothorax. IMPRESSION: 1. No change from 09/22/2016. RPTAT: QQ .Zack Gonsalez MD, MD Date Time Electronically viewed and signed by .Zack Gonsalez MD, MD on 09/23/2016 08:49 .R/
--- NOTE | 2016-09-23 10:45 | CONS ---
Date/Time of Note Date/Time of Note DATE: 09/23/16 TIME: 10:43 Consult Date/Type/Reason Admit Date/Time Sep 15, 2016 at 16:54 Type of Consultation: pulmonary Subjective Status post thoracentesis Continues mechanical ventilation Remains hemodynamically stable Objective Vital Signs Date Time Temp Pulse Resp B/P Pulse Ox O2 Delivery O2 Flow Rate FiO2 09/23/16 08:00 98.2 80 23 101/78 98 Mechanical Ventilator 09/23/16 05:46 40 09/19/16 11:30 6.0 Intake and Output 09/22/16 09/22/16 09/23/16 15:00 23:00 07:00 Intake Total 652.11 ml 530.29 ml 1136.8 ml Output Total 2415 ml 415 ml 325 ml Balance -1762.89 ml 115.29 ml 811.8 ml PHYSICAL EXAMINATION GENERAL: Chronically ill-appearing gentleman intubated on mechanical ventilation VITAL SIGNS: see below. HEENT: Pupils equal, round, and reactive to light. CARDIAC: S1, S2, tachycardia. CHEST: Diminished air entry bilaterally. ABDOMEN: Mildly distended. No bowel sounds. EXTREMITIES: No cyanosis, clubbing, edema +1 NEUROLOGIC: No focal deficits. Results/Medications Result Diagram: 09/23/16 0400 09/23/16 0400 Results 24 hrs Laboratory Tests Test 09/22/16 17:00 09/23/16 04:00 Body Fluid Appearance HAZY Body Fluid Color AMBIKA Body Fluid Glucose 74 Body Fluid Lactate Dehydrogenase 1579 Body Fluid Lymphocytes (%) 55 Body Fluid Monocytes % 25 Body Fluid Neutrophils % 5 Body Fluid Other Cells (%) 15 Body Fluid RBC 3+ Body Fluid Total Protein < 2.0 Body Fluid Type FLUID Body Fluid Volume 1000.0 Body Fluid WBC 1110 Anion Gap 10 Basophils # 0.0 Basophils % 0.1 Blood Morphology Comment Blood Urea Nitrogen 19 Calcium Level 7.0 L Carbon Dioxide Level 31 Chloride Level 105 Creatinine 0.66 Eosinophils # 0.0 Eosinophils % 0.5 Glucose Level 67 L Hematocrit 39.7 L Hemoglobin 12.8 L Lymphocytes # 0.9 Lymphocytes % 10.7 L Magnesium Level 2.0 Mean Corpuscular Hemoglobin 29.2 Mean Corpuscular Hemoglobin Concent 32.1 Mean Corpuscular Volume 91.1 Mean Platelet Volume 9.1 Monocytes # 0.7 Monocytes % 8.0 Neutrophils # 6.7 Neutrophils % 80.7 H Nucleated Red Blood Cells # 0.0 Nucleated Red Blood Cells % 0.0 Phosphorus Level 2.7 Platelet Count 182 Potassium Level 4.0 Red Blood Count 4.36 L Red Cell Distribution Width 15.2 H Sodium Level 142 White Blood Count 8.3 Medications Current Medications Sodium Chloride (NS) 1,000 ml @ 50 mls/hr Q20H IV Last administered on 23:34; Admin Dose 100 MLS/HR; Start 09/15/16 at 17:50 Lorazepam (Ativan) 0.5 mg Q6H PRN IV ANXIETY Last administered on 09/19/16at 09 :23; Admin Dose 0.5 MG; Start 09/15/16 at 18:00 Ondansetron HCl (Zofran Inj) 4 mg Q6H PRN IV NAUSEA AND/OR VOMITING; Start at 18:00 Morphine Sulfate (morphine) 2 mg Q4H PRN IV PAIN LEVEL 7-10 Last administered on 09/22/16 01:30; Admin Dose 2 MG; Start 09/15/16 at 18:00 Haloperidol 5 mg 5 mg Q6H PRN IM AGITATION Last administered on 09/19/16at 10: 40; Admin Dose 5 MG; Start 09/18/16 at 11:30 Cefepime HCl 50 ml @ 100 mls/hr Q12 IVPB Last administered on 09/23/16 08:25; Admin Dose 100 MLS/HR; Start 09/19/16 at 11:30 Vancomycin HCl 1.5 gm/Sodium Chloride 250 ml @ 83.333 mls/ hr Q12H IVPB Last administered on 09/22/16 23:35; Admin Dose 83.333 MLS/HR; Start 09/19/16 at 23: 30 Propofol (Diprivan) 100 ml @ 3.105 mls/ hr Q12H IV Last administered on 08:07; Admin Dose 21.735 MLS/HR; Start 09/19/16 at 13:30 Famotidine (Pepcid Iv) 20 mg BID IV Last administered on 09/23/16 08:25; Admin Dose 20 MG; Start 09/19/16 at 21:00 Acetaminophen 650 mg 650 mg Q6H PRN NGT PAIN AND OR ELEVATED TEMP Last administered on 09/21/16t 15:37; Admin Dose 650 MG; Start 09/19/16 at 16:00 Fentanyl 1000 mcg/ Dextrose 100 ml @ 2.5 mls/hr TITRATE IV ; Start 09/23/16 at 10:00 Midazolam HCl/ Dextrose (Versed/D5W) 50 ml @ 1 mls/hr TITRATE IV ; Start at 10:00 Assessment/Plan Chief Complaint/Hosp Course IMPRESSION AND PLAN 1. Hypoxemic respiratory failure. Dense right-sided pneumonia and pleural effusion status post thoracentesis right lung with reaccumulation of pleural fluid 2. Acute pulmonary emboli. 3. Acute pneumonia and pleural effusion. 4. Encephalopathy, likely toxic metabolic. 5. Transaminitis 6. Elevated INR, on anticoagulation status post vitamin K 1 PLAN 1. Continue mechanical ventilation.increase diuresis. 2. Monitor INR 3. Continue antibiotics broaden coverage for possible aspiration component. 4. DVT and GI prophylaxis. 5. Tube feeding once decreased residuals. Problems: AMANDA STONE MD, [facility] Sep 23, 2016 10:45
--- NOTE | 2016-09-23 11:40 | PN ---
Date/Time of Note Date/Time of Note DATE: 09/23/16 TIME: 11:39 Assessment/Plan VTE Prophylaxis VTE Prophylaxis Intervention: LMWH Lines/Catheters IV Catheter Type (from Nrs): Central Line Central line still needed: Yes Urinary Cath still in place: Yes Reason Cath still needed: skin wounds contaminated by urine Assessment/Plan Chief Complaint/Hosp Course 1) pneumonia - intravenous antibiotics 2) pulmonary embolus - anticoagulation - oxygen 3) agitation - BZDs prn 4) respiratory failure - on ventilator now - appreciate pulmonary assistance 5) pulmonary effusion - s/p thoracentesis Problems: Subjective 24 Hr Interval Summary Free Text/Dictation Remains sedated and intubated Exam/Review of Systems Vital Signs Vitals Vital Signs Date Time Temp Pulse Resp B/P Pulse Ox O2 Delivery O2 Flow Rate FiO2 09/23/16 10:30 86 23 101/75 97 Mechanical Ventilator 09/23/16 08:00 98.2 09/23/16 05:46 40 09/19/16 11:30 6.0 Intake and Output 09/22/16 09/22/16 09/23/16 15:00 23:00 07:00 Intake Total 652.11 ml 530.29 ml 1136.8 ml Output Total 2415 ml 415 ml 325 ml Balance -1762.89 ml 115.29 ml 811.8 ml Exam Constitutional: well developed Head: atraumatic, normocephalic Neck: supple Respiratory: diminished breath sounds Cardiovascular: regular rate and rhythm Gastrointestinal: non-tender, soft Extremities: normal pulses Results Result Diagram: 09/23/16 0400 09/23/16 0400 Results 24 hrs Laboratory Tests Test 09/22/16 17:00 09/23/16 04:00 Body Fluid Appearance HAZY Body Fluid Color AMBIKA Body Fluid Glucose 74 Body Fluid Lactate Dehydrogenase 1579 Body Fluid Lymphocytes (%) 55 Body Fluid Monocytes % 25 Body Fluid Neutrophils % 5 Body Fluid Other Cells (%) 15 Body Fluid RBC 3+ Body Fluid Total Protein < 2.0 Body Fluid Type FLUID Body Fluid Volume 1000.0 Body Fluid WBC 1110 Anion Gap 10 Basophils # 0.0 Basophils % 0.1 Blood Morphology Comment Blood Urea Nitrogen 19 Calcium Level 7.0 L Carbon Dioxide Level 31 Chloride Level 105 Creatinine 0.66 Eosinophils # 0.0 Eosinophils % 0.5 Glucose Level 67 L Hematocrit 39.7 L Hemoglobin 12.8 L Lymphocytes # 0.9 Lymphocytes % 10.7 L Magnesium Level 2.0 Mean Corpuscular Hemoglobin 29.2 Mean Corpuscular Hemoglobin Concent 32.1 Mean Corpuscular Volume 91.1 Mean Platelet Volume 9.1 Monocytes # 0.7 Monocytes % 8.0 Neutrophils # 6.7 Neutrophils % 80.7 H Nucleated Red Blood Cells # 0.0 Nucleated Red Blood Cells % 0.0 Phosphorus Level 2.7 Platelet Count 182 Potassium Level 4.0 Red Blood Count 4.36 L Red Cell Distribution Width 15.2 H Sodium Level 142 White Blood Count 8.3 Medications Medications Current Medications Sodium Chloride (NS) 1,000 ml @ 50 mls/hr Q20H IV Last administered on 23:34; Admin Dose 100 MLS/HR; Start 09/15/16 at 17:50 Lorazepam (Ativan) 0.5 mg Q6H PRN IV ANXIETY Last administered on 09/19/16at 09 :23; Admin Dose 0.5 MG; Start 09/15/16 at 18:00 Ondansetron HCl (Zofran Inj) 4 mg Q6H PRN IV NAUSEA AND/OR VOMITING; Start at 18:00 Morphine Sulfate (morphine) 2 mg Q4H PRN IV PAIN LEVEL 7-10 Last administered on 09/22/16 01:30; Admin Dose 2 MG; Start 09/15/16 at 18:00 Haloperidol 5 mg 5 mg Q6H PRN IM AGITATION Last administered on 09/19/16at 10: 40; Admin Dose 5 MG; Start 09/18/16 at 11:30 Cefepime HCl 50 ml @ 100 mls/hr Q12 IVPB Last administered on 09/23/16 08:25; Admin Dose 100 MLS/HR; Start 09/19/16 at 11:30 Vancomycin HCl 1.5 gm/Sodium Chloride 250 ml @ 83.333 mls/ hr Q12H IVPB Last administered on 09/22/16 23:35; Admin Dose 83.333 MLS/HR; Start 09/19/16 at 23: 30 Propofol (Diprivan) 100 ml @ 3.105 mls/ hr Q12H IV Last administered on 08:07; Admin Dose 21.735 MLS/HR; Start 09/19/16 at 13:30 Famotidine (Pepcid Iv) 20 mg BID IV Last administered on 09/23/16 08:25; Admin Dose 20 MG; Start 09/19/16 at 21:00 Acetaminophen 650 mg 650 mg Q6H PRN NGT PAIN AND OR ELEVATED TEMP Last administered on 09/21/16 15:37; Admin Dose 650 MG; Start 09/19/16 at 16:00 Fentanyl 1000 mcg/ Dextrose 100 ml @ 2.5 mls/hr TITRATE IV ; Start 09/23/16 at 10:00 Midazolam HCl/ Dextrose (Versed/D5W) 50 ml @ 1 mls/hr TITRATE IV ; Start at 10:00 DREW MOLINA Sep 23, 2016 11:40
[2016-09-23] MEDS: VANCOMYCIN 1.5 GM in SOD CHLORIDE 0.9% 250 ML IVPB SCH ×2 (12:05→23:33)
[2016-09-23] MEDS: DEXTROSE 50% 50 ML SYRINGE IV PRN (13:24)
[2016-09-23] MEDS ORDERED: DEXTROSE 50% 50 ML SYRINGE IV PRN (13:30)
[2016-09-23] MEDS ORDERED: GLUCAGON 1 MG INJ IM PRN (13:30)
[2016-09-23] MEDS ORDERED: GLUCOSE GEL 15 GRAM TUBE BUCCAL PRN (13:30)
[2016-09-23] MEDS ORDERED: GLUCOSE GEL 15 GRAM TUBE PO PRN ×2 (13:30)
[2016-09-23] MEDS: MIDAZOLAM 50 MG in DEXTROSE 5% 40 ML IV SCH ×2 (13:41→20:32)
[2016-09-23] MEDS: DEXTROSE 5%-0.9% NACL 1,000 ML IV SCH (16:20)
[2016-09-23 16:36] LABS: FLUID TYPE THORACENTHESIS
[2016-09-23] MEDS: INSULIN ASPART [NOVOLOG] 3 ML PEN SC SCH ×2 (17:00→20:27)
[2016-09-23] MEDS: FENTAnyl 1,000 MCG in DEXTROSE 5% 80 ML IV SCH (17:19)
--- NOTE | 2016-09-23 20:01 | PN ---
Date/Time of Note Date/Time of Note DATE: 09/23/16 TIME: 19:55 Assessment/Plan Lines/Catheters IV Catheter Type (from Nrs): Central Line Tang in Place (from Nrs): Yes Assessment/Plan Chief Complaint/Hosp Course IMPRESSION 1. Pulmonary embolism. 2. Pneumonia. [address] Interval development of severe right-sided pleural effusion measuring a maximum of 6.1 cm with compressive atelectasis of the right lower lobe and posterior segments of the right upper lobe. RECOMMENDATIONS: We will monitor the pleural effusion. Thorocentesis prn . . Discussed with the nursing staff. Problems: Subjective 24 Hr Interval Summary Constitutional: improved Pain Control: mild Exam/Review of Systems Vital Signs Vitals Vital Signs Date Time Temp Pulse Resp B/P Pulse Ox O2 Delivery O2 Flow Rate FiO2 09/23/16 17:45 83 10 110/79 99 Mechanical Ventilator 09/23/16 17:10 40 09/23/16 16:00 98.0 09/19/16 11:30 6.0 Intake and Output 09/22/16 09/22/16 09/23/16 15:00 23:00 07:00 Intake Total 652.11 ml 530.29 ml 1158.535 ml Output Total 2415 ml 415 ml 325 ml Balance -1762.89 ml 115.29 ml 833.535 ml Exam Neck: non-tender, supple Respiratory: clear to auscultation, normal air movement Cardiovascular: nl pulses, regular rate and rhythm Gastrointestinal: nl liver, spleen, non-tender, soft Results Result Diagram: 09/23/1639909/23/16399 YOUNG HAY MD Sep 23, 2016 20:01
[2016-09-24] VITALS (71 sets, daily range): BP systolic 85–111; BP diastolic 56–77; PULSE 72–94; RESP 0–18
[2016-09-24] MEDS: INSULIN ASPART [NOVOLOG] 3 ML PEN SC SCH ×6 (01:00→20:58)
[2016-09-24 05:18] LABS: EOSINOPHILS # 0.2 10^3/ul (0.0-0.5); EOSINOPHILS % 1.8 % (0.0-7.0); HEMATOCRIT 40.3 % (42.0-52.0); HEMOGLOBIN 12.9 g/dl (14.0-18.0); LYMPHOCYTES # 1.1 10^3/ul (0.8-2.9); LYMPHOCYTES % 11.7 % (15.0-51.0); MEAN CORPUSCULAR HEMOGLOBIN 29.1 pg (29.0-33.0); MEAN PLATELET VOLUME 9.1 fl (7.4-10.4); MONOCYTE # 0.8 10^3/ul (0.3-0.9); MONOCYTES % 8.7 % (0.0-11.0); NEUTROPHIL # 7.1 10^3/ul (1.6-7.5); NEUTROPHILS % 77.8 % (39.0-77.0); PLATELET COUNT 184 10^3/UL (140-440); POTASSIUM 3.6 mmol/L (3.5-5.1); RED BLOOD COUNT 4.43 10^6/ul (4.70-6.10); UNCORRECTED WBC 9.1 10^3/ul (4.8-10.8); WHITE BLOOD COUNT 9.1 10^3/ul (4.8-10.8)
[2016-09-24 05:20] LABS: CREATININE 0.62 mg/dl (0.61-1.24)
[2016-09-24 05:21] LABS: CALCIUM 6.9 mg/dl (8.4-10.2); PHOSPHORUS 2.8 mg/dl (2.5-4.9)
[2016-09-24 05:22] LABS: MAGNESIUM 1.8 mg/dl (1.7-2.5)
[2016-09-24 05:27] LABS: CONDITION 1; LH ANALYZER COMMENTS 1
[2016-09-24] MEDS: FUROSEMIDE 40 MG INJ IV SCH ×2 (06:00→18:00)
--- NOTE | 2016-09-24 07:09 | RADRPT ---
PROCEDURE: XR Chest. CLINICAL INDICATION: Pneumonia/congestive heart failure TECHNIQUE: Chest AP portable. COMPARISON: 09/23/2016 FINDINGS: Endotracheal tube 3 cm above the ida. Nasogastric tube in the stomach. Left subclavian venous c atheter. The mediastinal structures are unremarkable. There is mild cardiomegaly. There is no change in the congestive heart failure. There is no change in the RLL and LLL patchy consolidations. There is n o change in the moderate sized bilateral pleural effusions. The axial skeleton is unremarkable. IMPRESSION: Mild cardiomegaly No change in congestive heart failure No change in RLL and LLL patchy consolidations (edema/pneumonia) No change in moderate sized bilateral pleural effusions RPTAT: [facility] .Mickey Young MD, Date Time Electronically viewed and signed by .Mickey Young MD, on 09/24/2016 07:08 .B/
[2016-09-24] MEDS: FAMOTIDINE 20 MG INJ IV SCH ×2 (08:56→20:58)
[2016-09-24] MEDS: CEFEPIME 2GM/50 ML (PMX) 50 ML IVPB SCH ×2 (08:56→20:57)
[2016-09-24] MEDS: FENTAnyl 1,000 MCG in DEXTROSE 5% 80 ML IV SCH (09:07)
--- NOTE | 2016-09-24 10:56 | CONS ---
Date/Time of Note Date/Time of Note DATE: 09/24/16 TIME: 10:53 Consult Date/Type/Reason Admit Date/Time Sep 15, 2016 at 16:54 Type of Consultation: pulmonary Subjective Patient stable no new events Continues intubation and mechanical ventilation Chest x-ray shows worsening right effusion and/or infiltrate Objective Vital Signs Date Time Temp Pulse Resp B/P Pulse Ox O2 Delivery O2 Flow Rate FiO2 09/24/16 10:30 92 13 107/67 93 09/24/16 10:00 Mechanical Ventilator 09/24/16 08:00 40 09/24/16 08:00 98.6 Intake and Output 09/23/16 09/23/16 09/24/16 15:00 23:00 07:00 Intake Total 411.035 ml 514.18 ml 513.000 ml Output Total 3980 ml 3590 ml 1065 ml Balance -3568.965 ml -3075.82 ml -552.000 ml Results/Medications Result Diagram: 09/24/16 0400 09/24/16 0400 Results 24 hrs Chest x-ray Worsening right effusion Laboratory Tests Test 09/23/16 13:07 09/23/16 13:32 09/23/16 13:47 09/23/16 17:27 Bedside Glucose 68 L 106 89 82 Test 09/23/16 20:26 09/24/16 01:03 09/24/16 04:00 09/24/16 05:07 Bedside Glucose 82 112 86 Anion Gap 9 Basophils # 0.0 Basophils % 0.0 Blood Morphology Comment Blood Urea Nitrogen 18 Calcium Level 6.9 L Carbon Dioxide Level 36 H Chloride Level 104 Creatinine 0.62 Eosinophils # 0.2 Eosinophils % 1.8 Glucose Level 79 Hematocrit 40.3 L Hemoglobin 12.9 L Lymphocytes # 1.1 Lymphocytes % 11.7 L Magnesium Level 1.8 Mean Corpuscular Hemoglobin 29.1 Mean Corpuscular Hemoglobin Concent 32.0 Mean Corpuscular Volume 91.0 Mean Platelet Volume 9.1 Monocytes # 0.8 Monocytes % 8.7 Neutrophils # 7.1 Neutrophils % 77.8 H Nucleated Red Blood Cells # 0.0 Nucleated Red Blood Cells % 0.0 Phosphorus Level 2.8 Platelet Count 184 Potassium Level 3.6 Red Blood Count 4.43 L Red Cell Distribution Width 15.0 H Sodium Level 145 H White Blood Count 9.1 Test 09/24/16 08:59 09/24/16 10:25 Bedside Glucose 76 Vancomycin Level Trough 12.8 Medications Current Medications Lorazepam (Ativan) 0.5 mg Q6H PRN IV ANXIETY Last administered on 09/19/16at 09 :23; Admin Dose 0.5 MG; Start 09/15/16 at 18:00 Ondansetron HCl (Zofran Inj) 4 mg Q6H PRN IV NAUSEA AND/OR VOMITING; Start at 18:00 Morphine Sulfate (morphine) 2 mg Q4H PRN IV PAIN LEVEL 7-10 Last administered on 09/22/16 01:30; Admin Dose 2 MG; Start 09/15/16 at 18:00 Haloperidol 5 mg 5 mg Q6H PRN IM AGITATION Last administered on 09/19/16at 10: 40; Admin Dose 5 MG; Start 09/18/16 at 11:30 Cefepime HCl 50 ml @ 100 mls/hr Q12 IVPB Last administered on 09/24/16 08:56; Admin Dose 100 MLS/HR; Start 09/19/16 at 11:30 Vancomycin HCl 1.5 gm/Sodium Chloride 250 ml @ 83.333 mls/ hr Q12H IVPB Last administered on 09/23/16 23:33; Admin Dose 83.333 MLS/HR; Start 09/19/16 at 23: 30 Propofol (Diprivan) 100 ml @ 3.105 mls/ hr Q12H IV Last administered on 15:54; Admin Dose 22.977 MLS/HR; Start 09/19/16 at 13:30 Famotidine (Pepcid Iv) 20 mg BID IV Last administered on 09/24/16 08:56; Admin Dose 20 MG; Start 09/19/16 at 21:00 Acetaminophen 650 mg 650 mg Q6H PRN NGT PAIN AND OR ELEVATED TEMP Last administered on 09/21/16 15:37; Admin Dose 650 MG; Start 09/19/16 at 16:00 Fentanyl 1000 mcg/ Dextrose 100 ml @ 2.5 mls/hr TITRATE IV Last administered on 09/24/16 09:07; Admin Dose 5 MLS/HR; Start 09/23/16 at 10:00 Midazolam HCl/ Dextrose (Versed/D5W) 50 ml @ 1 mls/hr TITRATE IV Last administered on 09/23/16 20:32; Admin Dose 4 MLS/HR; Start 09/23/16 at 10:00 Insulin Aspart (Novolog Insulin Pen) NOVOLOG *MODERATE* ALGORI... Q4 SC ; Start 09/23/16 at 17:00 Miscellaneous Information 1 ea NOTE XX ; Start 09/23/16 at 13:30 Glucose (Glutose) 15 gm Q15M PRN PO DECREASED GLUCOSE; Start 09/23/16 at 13:30 Glucose (Glutose) 22.5 gm Q15M PRN PO DECREASED GLUCOSE; Start 09/23/16 at 13:30 Dextrose (D50w Syringe) 25 ml Q15M PRN IV DECREASED GLUCOSE Last administered on 09/23/16 13:24; Admin Dose 25 ML; Start 09/23/16 at 13:30 Dextrose (D50w Syringe) 50 ml Q15M PRN IV DECREASED GLUCOSE; Start 09/23/16 at 13:30 Glucagon (Glucagen) 1 mg Q15M PRN IM DECREASED GLUCOSE; Start 09/23/16 at 13:30 Glucose 15 gm 15 gm Q15M PRN BUCCAL DECREASED GLUCOSE; Start 09/23/16 at 13:30 Dextrose/Sodium Chloride (D5-NS) 1,000 ml @ 50 mls/hr Q20H IV Last administered on 09/23/16 16:20; Admin Dose 50 MLS/HR; Start 09/23/16 at 16:30 Assessment/Plan Chief Complaint/Hosp Course IMPRESSION AND PLAN 1. Hypoxemic respiratory failure. Dense right-sided pneumonia and pleural effusion status post thoracentesis right lung with reaccumulation of pleural fluid 2. Acute pulmonary emboli. 3. Acute pneumonia and pleural effusion. 4. Encephalopathy, likely toxic metabolic. 5. Transaminitis 6. Elevated INR, on anticoagulation status post vitamin K 1 PLAN 1. Continue mechanical ventilation.increase diuresis. CT chest noncontrast 2. Monitor INR 3. Continue antibiotics broaden coverage for possible aspiration component. 4. DVT and GI prophylaxis. 5. Tube feeding once decreased residuals. Add Reglan Problems: AMANDA STONE MD, [facility] Sep 24, 2016 10:56
[2016-09-24] MEDS: VANCOMYCIN 1.5 GM in SOD CHLORIDE 0.9% 250 ML IVPB SCH ×2 (11:39→22:42)
[2016-09-24] MEDS: METOCLOPRAMIDE 10 MG INJ IV SCH ×2 (11:39→20:58)
[2016-09-24] MEDS: MIDAZOLAM 50 MG in DEXTROSE 5% 40 ML IV SCH (11:47)
--- NOTE | 2016-09-24 11:55 | PN ---
Date/Time of Note Date/Time of Note DATE: 09/24/16 TIME: 11:53 Assessment/Plan VTE Prophylaxis VTE Prophylaxis Intervention: LMWH Lines/Catheters IV Catheter Type (from Nrs): Central Line Central line still needed: Yes Urinary Cath still in place: Yes Reason Cath still needed: skin wounds contaminated by urine Assessment/Plan Chief Complaint/Hosp Course 1) pneumonia - intravenous antibiotics 2) pulmonary embolus - anticoagulation - oxygen 3) agitation - BZDs prn 4) respiratory failure - on ventilator now - appreciate pulmonary assistance 5) pulmonary effusion - s/p thoracentesis Problems: Subjective 24 Hr Interval Summary Free Text/Dictation Patient remains sedated and intubated Exam/Review of Systems Vital Signs Vitals Vital Signs Date Time Temp Pulse Resp B/P Pulse Ox O2 Delivery O2 Flow Rate FiO2 09/24/16 11:30 85 16 87/56 95 09/24/16 11:00 Mechanical Ventilator 09/24/16 11:00 40 09/24/16 08:00 98.6 Intake and Output 09/23/16 09/23/16 09/24/16 14:59 22:59 06:59 Intake Total 405.930 ml 482.02 ml 572.000 ml Output Total 3940 ml 3590 ml 1090 ml Balance -3534.070 ml -3107.98 ml -518.000 ml Exam Constitutional: well developed Head: atraumatic, normocephalic Neck: supple Respiratory: diminished breath sounds Cardiovascular: regular rate and rhythm Gastrointestinal: soft Extremities: normal pulses Results Result Diagram: 09/24/16 0400 09/24/16 0400 Results 24 hrs Laboratory Tests Test 09/23/16 13:07 09/23/16 13:32 09/23/16 13:47 09/23/16 17:27 Bedside Glucose 68 L 106 89 82 Test 09/23/16 20:26 09/24/16 01:03 09/24/16 04:00 09/24/16 05:07 Bedside Glucose 82 112 86 Anion Gap 9 Basophils # 0.0 Basophils % 0.0 Blood Morphology Comment Blood Urea Nitrogen 18 Calcium Level 6.9 L Carbon Dioxide Level 36 H Chloride Level 104 Creatinine 0.62 Eosinophils # 0.2 Eosinophils % 1.8 Glucose Level 79 Hematocrit 40.3 L Hemoglobin 12.9 L Lymphocytes # 1.1 Lymphocytes % 11.7 L Magnesium Level 1.8 Mean Corpuscular Hemoglobin 29.1 Mean Corpuscular Hemoglobin Concent 32.0 Mean Corpuscular Volume 91.0 Mean Platelet Volume 9.1 Monocytes # 0.8 Monocytes % 8.7 Neutrophils # 7.1 Neutrophils % 77.8 H Nucleated Red Blood Cells # 0.0 Nucleated Red Blood Cells % 0.0 Phosphorus Level 2.8 Platelet Count 184 Potassium Level 3.6 Red Blood Count 4.43 L Red Cell Distribution Width 15.0 H Sodium Level 145 H White Blood Count 9.1 Test 09/24/16 08:59 09/24/16 10:25 Bedside Glucose 76 Vancomycin Level Trough 12.8 Medications Medications Current Medications Lorazepam (Ativan) 0.5 mg Q6H PRN IV ANXIETY Last administered on 09/19/16at 09 :23; Admin Dose 0.5 MG; Start 09/15/16 at 18:00 Ondansetron HCl (Zofran Inj) 4 mg Q6H PRN IV NAUSEA AND/OR VOMITING; Start at 18:00 Morphine Sulfate (morphine) 2 mg Q4H PRN IV PAIN LEVEL 7-10 Last administered on 09/22/16 01:30; Admin Dose 2 MG; Start 09/15/16 at 18:00 Haloperidol 5 mg 5 mg Q6H PRN IM AGITATION Last administered on 09/19/16at 10: 40; Admin Dose 5 MG; Start 09/18/16 at 11:30 Cefepime HCl 50 ml @ 100 mls/hr Q12 IVPB Last administered on 09/24/16 08:56; Admin Dose 100 MLS/HR; Start 09/19/16 at 11:30 Vancomycin HCl 1.5 gm/Sodium Chloride 250 ml @ 83.333 mls/ hr Q12H IVPB Last administered on 09/24/16 11:39; Admin Dose 83.333 MLS/HR; Start 09/19/16 at 23: 30 Propofol (Diprivan) 100 ml @ 3.105 mls/ hr Q12H IV Last administered on 15:54; Admin Dose 22.977 MLS/HR; Start 09/19/16 at 13:30 Famotidine (Pepcid Iv) 20 mg BID IV Last administered on 09/24/16 08:56; Admin Dose 20 MG; Start 09/19/16 at 21:00 Acetaminophen 650 mg 650 mg Q6H PRN NGT PAIN AND OR ELEVATED TEMP Last administered on 09/21/16 15:37; Admin Dose 650 MG; Start 09/19/16 at 16:00 Fentanyl 1000 mcg/ Dextrose 100 ml @ 2.5 mls/hr TITRATE IV Last administered on 09/24/16 09:07; Admin Dose 5 MLS/HR; Start 09/23/16 at 10:00 Midazolam HCl/ Dextrose (Versed/D5W) 50 ml @ 1 mls/hr TITRATE IV Last administered on 09/24/16 11:47; Admin Dose 2 MLS/HR; Start 09/23/16 at 10:00 Insulin Aspart (Novolog Insulin Pen) NOVOLOG *MODERATE* ALGORI... Q4 SC ; Start 09/23/16 at 17:00 Miscellaneous Information 1 ea NOTE XX ; Start 09/23/16 at 13:30 Glucose (Glutose) 15 gm Q15M PRN PO DECREASED GLUCOSE; Start 09/23/16 at 13:30 Glucose (Glutose) 22.5 gm Q15M PRN PO DECREASED GLUCOSE; Start 09/23/16 at 13:30 Dextrose (D50w Syringe) 25 ml Q15M PRN IV DECREASED GLUCOSE Last administered on 09/23/16 13:24; Admin Dose 25 ML; Start 09/23/16 at 13:30 Dextrose (D50w Syringe) 50 ml Q15M PRN IV DECREASED GLUCOSE; Start 09/23/16 at 13:30 Glucagon (Glucagen) 1 mg Q15M PRN IM DECREASED GLUCOSE; Start 09/23/16 at 13:30 Glucose 15 gm 15 gm Q15M PRN BUCCAL DECREASED GLUCOSE; Start 09/23/16 at 13:30 Dextrose/Sodium Chloride (D5-NS) 1,000 ml @ 50 mls/hr Q20H IV Last administered on 09/23/16 16:20; Admin Dose 50 MLS/HR; Start 09/23/16 at 16:30 Metoclopramide HCl (Reglan) 10 mg Q12 IV Last administered on 09/24/16 11:39; Admin Dose 10 MG; Start 09/24/16 at 11:30 DREW MOLINA Sep 24, 2016 11:54
[2016-09-24] MEDS: DEXTROSE 5%-0.9% NACL 1,000 ML IV SCH ×2 (12:30→16:49)
--- NOTE | 2016-09-24 13:04 | PN ---
Date/Time of Note Date/Time of Note DATE: 09/24/16 TIME: 13:02 Assessment/Plan Lines/Catheters IV Catheter Type (from Nrsg): Central Line Tang in Place (from Nrsg): Yes Assessment/Plan Chief Complaint/Hosp Course IMPRESSION 1. Pulmonary embolism. 2. Pneumonia. 3 Pleural effusion RECOMMENDATIONS: We will monitor the pleural effusion. Thorocentesis prn . . Discussed with the nursing staff. Problems: Subjective 24 Hr Interval Summary Constitutional: improved Pain Control: mild Exam/Review of Systems Vital Signs Vitals Vital Signs Date Time Temp Pulse Resp B/P Pulse Ox O2 Delivery O2 Flow Rate FiO2 09/24/16 12:30 86 16 90/61 97 Mechanical Ventilator 09/24/16 12:00 98.1 09/24/16 11:00 40 Intake and Output 09/23/16 09/23/16 09/24/16 15:00 23:00 07:00 Intake Total 411.035 ml 514.18 ml 571.000 ml Output Total 3980 ml 3590 ml 1065 ml Balance -3568.965 ml -3075.82 ml -494.000 ml Exam ENMT: mucosa pink and moist, nl external ears & nose, nl lips & teeth, nl nasal mucosa & septum Neck: non-tender, supple Respiratory: clear to auscultation, normal air movement Results Result Diagram: 09/24/1639909/24/16399 YOUNG HAY MD Sep 24, 2016 13:04
[2016-09-25] VITALS (58 sets, daily range): BP systolic 84–105; BP diastolic 51–79; PULSE 64–96; RESP 7–21
[2016-09-25] MEDS: INSULIN ASPART [NOVOLOG] 3 ML PEN SC SCH ×7 (01:00→23:39)
[2016-09-25] MEDS: PROPOFOL 100 ML IV SCH ×4 (01:04→18:27)
[2016-09-25] MEDS: FENTAnyl 1,000 MCG in DEXTROSE 5% 80 ML IV SCH ×2 (01:10→23:44)
[2016-09-25 05:10] LABS: POTASSIUM 3.8 mmol/L (3.5-5.1)
[2016-09-25 05:12] LABS: CREATININE 0.67 mg/dl (0.61-1.24)
[2016-09-25 05:13] LABS: CALCIUM 7.3 mg/dl (8.4-10.2)
[2016-09-25] MEDS: FUROSEMIDE 40 MG INJ IV SCH ×2 (05:22→18:04)
[2016-09-25 06:04] LABS: BASOPHILS % 0.1 % (0.0-2.0); EOSINOPHILS # 0.2 10^3/ul (0.0-0.5); EOSINOPHILS % 2.3 % (0.0-7.0); HEMOGLOBIN 12.8 g/dl (14.0-18.0); LYMPHOCYTES % 12.2 % (15.0-51.0); MEAN CORPUSCULAR HEMOGLOBIN 29.8 pg (29.0-33.0); MEAN CORPUSCULAR HGB CONC 32.8 g/dl (32.0-37.0); MEAN CORPUSCULAR VOLUME 90.9 fl (82.0-101.0); MEAN PLATELET VOLUME 9.3 fl (7.4-10.4); MONOCYTE # 0.7 10^3/ul (0.3-0.9); MONOCYTES % 8.4 % (0.0-11.0); NEUTROPHIL # 6.5 10^3/ul (1.6-7.5); PLATELET COUNT 190 10^3/UL (140-440); RED BLOOD COUNT 4.29 10^6/ul (4.70-6.10); UNCORRECTED WBC 8.4 10^3/ul (4.8-10.8); WHITE BLOOD COUNT 8.4 10^3/ul (4.8-10.8)
[2016-09-25 06:13] LABS: CONDITION 1; LH ANALYZER COMMENTS 1
[2016-09-25] MEDS: LEVALBUTEROL (HFA) 15 GM INHALER INH PRN (07:42)
--- NOTE | 2016-09-25 08:07 | RADRPT ---
PROCEDURE: XR Chest. CLINICAL INDICATION: Pneumonia, CHF TECHNIQUE: An AP view of the chest was obtained. COMPARISON: Chest x-ray dated 09/24/2016 FINDINGS: The endotracheal tube tip is approximately 2.3 cm above the ida. The tip of the enteric tube ex tends below the left diaphragm. There is a left upper extremity PICC line with tip near the junctio n of the left brachiocephalic vein and SVC. There are diffuse bilateral interstitial opacities and small bilateral pleural effusions. No pneumo thorax is seen. The cardiomediastinal silhouette is mildly enlarged . The osseous structures are unremarkable. IMPRESSION: 1. Interstitial edema versus multifocal pneumonia with small bilateral pleural effusions. Overall, no significant interval change. 2. Mild cardiomegaly. 3. Tubes and lines, as described above. RPTAT: HH .Malia Aguirre MD, MD Date Time Electronically viewed and signed by .Malia Aguirre MD, on 09/25/2016 08:06 .G/
--- NOTE | 2016-09-25 10:31 | CONS ---
Date/Time of Note Date/Time of Note DATE: 09/25/16 TIME: 10:29 Consult Date/Type/Reason Admit Date/Time Sep 15, 2016 at 16:54 Type of Consultation: pulmonary Subjective Patient remains intubated on mechanical ventilation Pending CT of the chest Currently hemodynamically stable Objective Vital Signs Date Time Temp Pulse Resp B/P Pulse Ox O2 Delivery O2 Flow Rate FiO2 09/25/16 08:00 74 09/25/16 07:00 17 100/70 100 Mechanical Ventilator 09/25/16 05:11 40 09/25/16 04:00 98.2 Intake and Output 09/24/16 09/24/16 09/25/16 15:00 23:00 07:00 Intake Total 760 ml 406 ml 549 ml Output Total 365 ml 225 ml 245 ml Balance 395 ml 181 ml 304 ml PHYSICAL EXAMINATION GENERAL: Chronically ill-appearing gentleman intubated on mechanical ventilation VITAL SIGNS: see below. HEENT: Pupils equal, round, and reactive to light. CARDIAC: S1, S2, tachycardia. CHEST: Diminished air entry bilaterally. ABDOMEN: Mildly distended. No bowel sounds. EXTREMITIES: No cyanosis, clubbing, edema +1 NEUROLOGIC: No focal deficits. Results/Medications Result Diagram: 09/25/16 0400 09/25/16 0400 Results 24 hrs Laboratory Tests Test 09/24/16 12:54 09/24/16 16:51 09/24/16 19:31 09/25/16 00:59 Bedside Glucose 75 77 86 75 Test 09/25/16 03:58 09/25/16 04:00 Bedside Glucose 82 Anion Gap 7 L Basophils # 0.0 Basophils % 0.1 Blood Morphology Comment Blood Urea Nitrogen 18 Calcium Level 7.3 L Carbon Dioxide Level 36 H Chloride Level 108 Creatinine 0.67 Eosinophils # 0.2 Eosinophils % 2.3 Glucose Level 84 Hematocrit 39.0 L Hemoglobin 12.8 L Lymphocytes # 1.0 Lymphocytes % 12.2 L Magnesium Level 2.0 Mean Corpuscular Hemoglobin 29.8 Mean Corpuscular Hemoglobin Concent 32.8 Mean Corpuscular Volume 90.9 Mean Platelet Volume 9.3 Monocytes # 0.7 Monocytes % 8.4 Neutrophils # 6.5 Neutrophils % 77.0 Nucleated Red Blood Cells # 0.0 Nucleated Red Blood Cells % 0.0 Phosphorus Level 3.0 Platelet Count 190 Potassium Level 3.8 Red Blood Count 4.29 L Red Cell Distribution Width 15.0 H Sodium Level 147 H White Blood Count 8.4 Medications Current Medications Lorazepam (Ativan) 0.5 mg Q6H PRN IV ANXIETY Last administered on 09/19/16at 09 :23; Admin Dose 0.5 MG; Start 09/15/16 at 18:00 Ondansetron HCl (Zofran Inj) 4 mg Q6H PRN IV NAUSEA AND/OR VOMITING; Start at 18:00 Morphine Sulfate (morphine) 2 mg Q4H PRN IV PAIN LEVEL 7-10 Last administered on 09/22/16 01:30; Admin Dose 2 MG; Start 09/15/16 at 18:00 Haloperidol 5 mg 5 mg Q6H PRN IM AGITATION Last administered on 09/19/16at 10: 40; Admin Dose 5 MG; Start 09/18/16 at 11:30 Cefepime HCl 50 ml @ 100 mls/hr Q12 IVPB Last administered on 09/24/16 20:57; Admin Dose 100 MLS/HR; Start 09/19/16 at 11:30 Vancomycin HCl 1.5 gm/Sodium Chloride 250 ml @ 83.333 mls/ hr Q12H IVPB Last administered on 09/24/16 22:42; Admin Dose 83.333 MLS/HR; Start 09/19/16 at 23: 30 Propofol (Diprivan) 100 ml @ 3.105 mls/ hr Q12H IV Last administered on 15:54; Admin Dose 22.977 MLS/HR; Start 09/19/16 at 13:30 Famotidine (Pepcid Iv) 20 mg BID IV Last administered on 09/24/16 20:58; Admin Dose 20 MG; Start 09/19/16 at 21:00 Acetaminophen 650 mg 650 mg Q6H PRN NGT PAIN AND OR ELEVATED TEMP Last administered on 09/21/16 15:37; Admin Dose 650 MG; Start 09/19/16 at 16:00 Fentanyl 1000 mcg/ Dextrose 100 ml @ 2.5 mls/hr TITRATE IV Last administered on 09/25/16 01:10; Admin Dose 5 MLS/HR; Start 09/23/16 at 10:00 Midazolam HCl/ Dextrose (Versed/D5W) 50 ml @ 1 mls/hr TITRATE IV Last administered on 09/24/16 11:47; Admin Dose 2 MLS/HR; Start 09/23/16 at 10:00 Insulin Aspart (Novolog Insulin Pen) NOVOLOG *MODERATE* ALGORI... Q4 SC ; Start 09/23/16 at 17:00 Miscellaneous Information 1 ea NOTE XX ; Start 09/23/16 at 13:30 Glucose (Glutose) 15 gm Q15M PRN PO DECREASED GLUCOSE; Start 09/23/16 at 13:30 Glucose (Glutose) 22.5 gm Q15M PRN PO DECREASED GLUCOSE; Start 09/23/16 at 13:30 Dextrose (D50w Syringe) 25 ml Q15M PRN IV DECREASED GLUCOSE Last administered on 09/23/16 13:24; Admin Dose 25 ML; Start 09/23/16 at 13:30 Dextrose (D50w Syringe) 50 ml Q15M PRN IV DECREASED GLUCOSE; Start 09/23/16 at 13:30 Glucagon (Glucagen) 1 mg Q15M PRN IM DECREASED GLUCOSE; Start 09/23/16 at 13:30 Glucose 15 gm 15 gm Q15M PRN BUCCAL DECREASED GLUCOSE; Start 09/23/16 at 13:30 Dextrose/Sodium Chloride (D5-NS) 1,000 ml @ 50 mls/hr Q20H IV Last administered on 09/24/16 16:49; Admin Dose 50 MLS/HR; Start 09/23/16 at 16:30 Metoclopramide HCl (Reglan) 10 mg Q12 IV Last administered on 09/24/16 20:58; Admin Dose 10 MG; Start 09/24/16 at 11:30 Assessment/Plan Chief Complaint/Hosp Course IMPRESSION AND PLAN 1. Hypoxemic respiratory failure. Dense right-sided pneumonia and pleural effusion status post thoracentesis right lung with reaccumulation of pleural fluid 2. Acute pulmonary emboli. 3. Acute pneumonia and pleural effusion. 4. Encephalopathy, likely toxic metabolic. 5. Transaminitis 6. Elevated INR, on anticoagulation status post vitamin K 1 PLAN 1. Continue mechanical ventilation.increase diuresis. CT chest noncontrast pending 2. Monitor INR, Lovenox subcutaneous pending CT of the chest with possible intervention. 3. Continue antibiotics improved leukocytosis 4. DVT and GI prophylaxis. 5. Tube feeding once decreased residuals. Added Reglan Problems: [facility], [facility] Sep 25, 2016 10:31
[2016-09-25] MEDS: DEXTROSE 5%-0.9% NACL 1,000 ML IV SCH (10:47)
[2016-09-25] MEDS: CEFEPIME 2GM/50 ML (PMX) 50 ML IVPB SCH ×2 (10:48→20:46)
[2016-09-25] MEDS: FAMOTIDINE 20 MG INJ IV SCH ×2 (10:48→20:43)
[2016-09-25] MEDS: METOCLOPRAMIDE 10 MG INJ IV SCH ×2 (10:48→20:43)
[2016-09-25] MEDS: ENOXAPARIN 100 MG/ML SYG SC SCH ×2 (10:55→20:48)
[2016-09-25] MEDS: VANCOMYCIN 1.5 GM in SOD CHLORIDE 0.9% 250 ML IVPB SCH ×2 (12:27→23:39)
--- NOTE | 2016-09-25 14:09 | PN ---
Date/Time of Note Date/Time of Note DATE: 09/25/16 TIME: 14:09 Assessment/Plan VTE Prophylaxis VTE Prophylaxis Intervention: LMWH Lines/Catheters IV Catheter Type (from Nrs): Central Line Central line still needed: Yes Urinary Cath still in place: Yes Reason Cath still needed: skin wounds contaminated by urine Assessment/Plan Chief Complaint/Hosp Course 1) pneumonia - intravenous antibiotics 2) pulmonary embolus - anticoagulation - oxygen 3) agitation - BZDs prn 4) respiratory failure - on ventilator now - appreciate pulmonary assistance 5) pulmonary effusion - s/p thoracentesis Problems: Subjective 24 Hr Interval Summary Free Text/Dictation Patient is sedated and intubated Exam/Review of Systems Vital Signs Vitals Vital Signs Date Time Temp Pulse Resp B/P Pulse Ox O2 Delivery O2 Flow Rate FiO2 09/25/16 13:30 74 16 91/63 99 09/25/16 13:00 Mechanical Ventilator 09/25/16 12:00 97.5 09/25/16 11:10 40 Intake and Output 09/24/16 09/24/16 09/25/16 15:00 23:00 07:00 Intake Total 760 ml 406 ml 606 ml Output Total 365 ml 225 ml 245 ml Balance 395 ml 181 ml 361 ml Exam Constitutional: well developed Head: atraumatic, normocephalic Neck: supple Respiratory: diminished breath sounds Cardiovascular: regular rate and rhythm Gastrointestinal: non-tender, soft Extremities: normal pulses Results Result Diagram: 09/25/16 0400 09/25/16 0400 Results 24 hrs Laboratory Tests Test 09/24/16 16:51 09/24/16 19:31 09/25/16 00:59 09/25/16 03:58 Bedside Glucose 77 86 75 82 Test 09/25/16 04:00 09/25/16 10:46 09/25/16 13:21 Anion Gap 7 L Basophils # 0.0 Basophils % 0.1 Blood Morphology Comment Blood Urea Nitrogen 18 Calcium Level 7.3 L Carbon Dioxide Level 36 H Chloride Level 108 Creatinine 0.67 Eosinophils # 0.2 Eosinophils % 2.3 Glucose Level 84 Hematocrit 39.0 L Hemoglobin 12.8 L Lymphocytes # 1.0 Lymphocytes % 12.2 L Magnesium Level 2.0 Mean Corpuscular Hemoglobin 29.8 Mean Corpuscular Hemoglobin Concent 32.8 Mean Corpuscular Volume 90.9 Mean Platelet Volume 9.3 Monocytes # 0.7 Monocytes % 8.4 Neutrophils # 6.5 Neutrophils % 77.0 Nucleated Red Blood Cells # 0.0 Nucleated Red Blood Cells % 0.0 Phosphorus Level 3.0 Platelet Count 190 Potassium Level 3.8 Red Blood Count 4.29 L Red Cell Distribution Width 15.0 H Sodium Level 147 H White Blood Count 8.4 Bedside Glucose 81 84 Medications Medications Current Medications Lorazepam (Ativan) 0.5 mg Q6H PRN IV ANXIETY Last administered on 09/19/16at 09 :23; Admin Dose 0.5 MG; Start 09/15/16 at 18:00 Ondansetron HCl (Zofran Inj) 4 mg Q6H PRN IV NAUSEA AND/OR VOMITING; Start at 18:00 Morphine Sulfate (morphine) 2 mg Q4H PRN IV PAIN LEVEL 7-10 Last administered on 09/22/16 01:30; Admin Dose 2 MG; Start 09/15/16 at 18:00 Haloperidol 5 mg 5 mg Q6H PRN IM AGITATION Last administered on 09/19/16at 10: 40; Admin Dose 5 MG; Start 09/18/16 at 11:30 Cefepime HCl 50 ml @ 100 mls/hr Q12 IVPB Last administered on 09/25/16 10:48; Admin Dose 100 MLS/HR; Start 09/19/16 at 11:30 Vancomycin HCl 1.5 gm/Sodium Chloride 250 ml @ 83.333 mls/ hr Q12H IVPB Last administered on 09/25/16 12:27; Admin Dose 83.333 MLS/HR; Start 09/19/16 at 23: 30 Propofol (Diprivan) 100 ml @ 3.105 mls/ hr Q12H IV Last administered on 15:54; Admin Dose 22.977 MLS/HR; Start 09/19/16 at 13:30 Famotidine (Pepcid Iv) 20 mg BID IV Last administered on 09/25/16 10:48; Admin Dose 20 MG; Start 09/19/16 at 21:00 Acetaminophen 650 mg 650 mg Q6H PRN NGT PAIN AND OR ELEVATED TEMP Last administered on 09/21/16 15:37; Admin Dose 650 MG; Start 09/19/16 at 16:00 Fentanyl/Dextrose (D5W) 100 ml @ 2.5 mls/hr TITRATE IV Last administered on 01:10; Admin Dose 5 MLS/HR; Start 09/23/16 at 10:00 Insulin Aspart (Novolog Insulin Pen) NOVOLOG *MODERATE* ALGORI... Q4 SC ; Start 09/23/16 at 17:00 Miscellaneous Information 1 ea NOTE XX ; Start 09/23/16 at 13:30 Glucose (Glutose) 15 gm Q15M PRN PO DECREASED GLUCOSE; Start 09/23/16 at 13:30 Glucose (Glutose) 22.5 gm Q15M PRN PO DECREASED GLUCOSE; Start 09/23/16 at 13:30 Dextrose (D50w Syringe) 25 ml Q15M PRN IV DECREASED GLUCOSE Last administered on 09/23/16 13:24; Admin Dose 25 ML; Start 09/23/16 at 13:30 Dextrose (D50w Syringe) 50 ml Q15M PRN IV DECREASED GLUCOSE; Start 09/23/16 at 13:30 Glucagon (Glucagen) 1 mg Q15M PRN IM DECREASED GLUCOSE; Start 09/23/16 at 13:30 Glucose 15 gm 15 gm Q15M PRN BUCCAL DECREASED GLUCOSE; Start 09/23/16 at 13:30 Dextrose/Sodium Chloride (D5-NS) 1,000 ml @ 50 mls/hr Q20H IV Last administered on 09/25/16 10:47; Admin Dose 50 MLS/HR; Start 09/23/16 at 16:30 Metoclopramide HCl (Reglan) 10 mg Q12 IV Last administered on 09/25/16 10:48; Admin Dose 10 MG; Start 09/24/16 at 11:30 Enoxaparin Sodium 100 mg 100 mg Q12 SC Last administered on 09/25/16 10:55; Admin Dose 100 MG; Start 09/25/16 at 11:00 Midazolam HCl/ Dextrose (Versed/D5W) 50 ml @ 2 mls/hr TITRATE IV ; Start at 12:00 DREW MOLINA Sep 25, 2016 14:09
--- NOTE | 2016-09-25 16:04 | PN ---
Date/Time of Note Date/Time of Note DATE: 09/25/16 TIME: 16:03 Assessment/Plan VTE Prophylaxis VTE Prophylaxis Intervention: other Lines/Catheters IV Catheter Type (from Nrs): Central line still needed: No Urinary Cath still in place: No Assessment/Plan Chief Complaint/Hosp Course IMPRESSION 1. Pulmonary embolism. 2. Pneumonia. 3 Pleural effusion RECOMMENDATIONS: We will monitor the pleural effusion. Thorocentesis prn . . Discussed with the nursing staff. Problems: Subjective 24 Hr Interval Summary Genitourinary: no complaints Musculoskeletal: no complaints Skin: no complaints Neurologic: no complaints Exam/Review of Systems Vital Signs Vitals Vital Signs Date Time Temp Pulse Resp B/P Pulse Ox O2 Delivery O2 Flow Rate FiO2 09/25/16 15:10 84 20 100 40 09/25/16 13:30 91/63 09/25/16 13:00 Mechanical Ventilator 09/25/16 12:00 97.5 Intake and Output 09/24/16 09/24/16 09/25/16 15:00 23:00 07:00 Intake Total 760 ml 406 ml 606 ml Output Total 365 ml 225 ml 245 ml Balance 395 ml 181 ml 361 ml Exam ENMT: nl external ears & nose, nl lips & teeth, nl nasal mucosa & septum Neck: non-tender, supple Respiratory: clear to auscultation, normal air movement Cardiovascular: nl pulses, regular rate and rhythm Gastrointestinal: nl liver, spleen, non-tender, soft Results Result Diagram: 09/25/16 0400 09/25/16 0400 Results 24 hrs Laboratory Tests Test 09/24/16 16:51 09/24/16 19:31 09/25/16 00:59 09/25/16 03:58 Bedside Glucose 77 86 75 82 Test 09/25/16 04:00 09/25/16 10:46 09/25/16 13:21 Anion Gap 7 L Basophils # 0.0 Basophils % 0.1 Blood Morphology Comment Blood Urea Nitrogen 18 Calcium Level 7.3 L Carbon Dioxide Level 36 H Chloride Level 108 Creatinine 0.67 Eosinophils # 0.2 Eosinophils % 2.3 Glucose Level 84 Hematocrit 39.0 L Hemoglobin 12.8 L Lymphocytes # 1.0 Lymphocytes % 12.2 L Magnesium Level 2.0 Mean Corpuscular Hemoglobin 29.8 Mean Corpuscular Hemoglobin Concent 32.8 Mean Corpuscular Volume 90.9 Mean Platelet Volume 9.3 Monocytes # 0.7 Monocytes % 8.4 Neutrophils # 6.5 Neutrophils % 77.0 Nucleated Red Blood Cells # 0.0 Nucleated Red Blood Cells % 0.0 Phosphorus Level 3.0 Platelet Count 190 Potassium Level 3.8 Red Blood Count 4.29 L Red Cell Distribution Width 15.0 H Sodium Level 147 H White Blood Count 8.4 Bedside Glucose 81 84 Medications Medications Current Medications Lorazepam (Ativan) 0.5 mg Q6H PRN IV ANXIETY Last administered on 09/19/16at 09 :23; Admin Dose 0.5 MG; Start 09/15/16 at 18:00 Ondansetron HCl (Zofran Inj) 4 mg Q6H PRN IV NAUSEA AND/OR VOMITING; Start at 18:00 Morphine Sulfate (morphine) 2 mg Q4H PRN IV PAIN LEVEL 7-10 Last administered on 09/22/16 01:30; Admin Dose 2 MG; Start 09/15/16 at 18:00 Haloperidol 5 mg 5 mg Q6H PRN IM AGITATION Last administered on 09/19/16at 10: 40; Admin Dose 5 MG; Start 09/18/16 at 11:30 Cefepime HCl 50 ml @ 100 mls/hr Q12 IVPB Last administered on 09/25/16 10:48; Admin Dose 100 MLS/HR; Start 09/19/16 at 11:30 Vancomycin HCl 1.5 gm/Sodium Chloride 250 ml @ 83.333 mls/ hr Q12H IVPB Last administered on 09/25/16 12:27; Admin Dose 83.333 MLS/HR; Start 09/19/16 at 23: 30 Propofol (Diprivan) 100 ml @ 3.105 mls/ hr Q12H IV Last administered on 15:36; Admin Dose 24.84 MLS/HR; Start 09/19/16 at 13:30 Famotidine (Pepcid Iv) 20 mg BID IV Last administered on 09/25/16 10:48; Admin Dose 20 MG; Start 09/19/16 at 21:00 Acetaminophen 650 mg 650 mg Q6H PRN NGT PAIN AND OR ELEVATED TEMP Last administered on 09/21/16 15:37; Admin Dose 650 MG; Start 09/19/16 at 16:00 Fentanyl/Dextrose (D5W) 100 ml @ 2.5 mls/hr TITRATE IV Last administered on 01:10; Admin Dose 5 MLS/HR; Start 09/23/16 at 10:00 Insulin Aspart (Novolog Insulin Pen) NOVOLOG *MODERATE* ALGORI... Q4 SC ; Start 09/23/16 at 17:00 Miscellaneous Information 1 ea NOTE XX ; Start 09/23/16 at 13:30 Glucose (Glutose) 15 gm Q15M PRN PO DECREASED GLUCOSE; Start 09/23/16 at 13:30 Glucose (Glutose) 22.5 gm Q15M PRN PO DECREASED GLUCOSE; Start 09/23/16 at 13:30 Dextrose (D50w Syringe) 25 ml Q15M PRN IV DECREASED GLUCOSE Last administered on 09/23/16 13:24; Admin Dose 25 ML; Start 09/23/16 at 13:30 Dextrose (D50w Syringe) 50 ml Q15M PRN IV DECREASED GLUCOSE; Start 09/23/16 at 13:30 Glucagon (Glucagen) 1 mg Q15M PRN IM DECREASED GLUCOSE; Start 09/23/16 at 13:30 Glucose 15 gm 15 gm Q15M PRN BUCCAL DECREASED GLUCOSE; Start 09/23/16 at 13:30 Dextrose/Sodium Chloride (D5-NS) 1,000 ml @ 50 mls/hr Q20H IV Last administered on 09/25/16 10:47; Admin Dose 50 MLS/HR; Start 09/23/16 at 16:30 Metoclopramide HCl (Reglan) 10 mg Q12 IV Last administered on 09/25/16 10:48; Admin Dose 10 MG; Start 09/24/16 at 11:30 Enoxaparin Sodium 100 mg 100 mg Q12 SC Last administered on 09/25/16 10:55; Admin Dose 100 MG; Start 09/25/16 at 11:00 Midazolam HCl/ Dextrose (Versed/D5W) 50 ml @ 2 mls/hr TITRATE IV ; Start at 12:00 YOUNG HAY MD Sep 25, 2016 16:04
[2016-09-25] MEDS: MIDAZOLAM 50 MG in DEXTROSE 5% 40 ML IV SCH (17:03)
[2016-09-26] VITALS (62 sets, daily range): BP systolic 74–106; BP diastolic 42–85; PULSE 68–97; RESP 14–22
[2016-09-26] MEDS: DEXTROSE 5%-0.9% NACL 1,000 ML IV SCH ×2 (05:18→23:49)
[2016-09-26] MEDS: FUROSEMIDE 40 MG INJ IV SCH ×2 (05:18→18:00)
[2016-09-26] MEDS: INSULIN ASPART [NOVOLOG] 3 ML PEN SC SCH ×4 (05:18→23:48)
[2016-09-26] MEDS: PROPOFOL 100 ML IV SCH ×3 (05:19→21:04)
[2016-09-26 06:04] LABS: BASOPHILS % 0.3 % (0.0-2.0); EOSINOPHILS # 0.4 10^3/ul (0.0-0.5); HEMATOCRIT 40.2 % (42.0-52.0); HEMOGLOBIN 13.1 g/dl (14.0-18.0); LYMPHOCYTES # 0.8 10^3/ul (0.8-2.9); MEAN CORPUSCULAR HEMOGLOBIN 29.6 pg (29.0-33.0); MEAN CORPUSCULAR HGB CONC 32.7 g/dl (32.0-37.0); MEAN CORPUSCULAR VOLUME 90.4 fl (82.0-101.0); MEAN PLATELET VOLUME 9.7 fl (7.4-10.4); MONOCYTE # 0.9 10^3/ul (0.3-0.9); NEUTROPHIL # 7.1 10^3/ul (1.6-7.5); NEUTROPHILS % 76.7 % (39.0-77.0); PLATELET COUNT 215 10^3/UL (140-440); RED BLOOD COUNT 4.44 10^6/ul (4.70-6.10); RED CELL DISTRIBUTION WIDTH 14.8 % (11.5-14.5); UNCORRECTED WBC 9.3 10^3/ul (4.8-10.8); WHITE BLOOD COUNT 9.3 10^3/ul (4.8-10.8)
[2016-09-26 06:16] LABS: POTASSIUM 3.8 mmol/L (3.5-5.1)
[2016-09-26 06:18] LABS: CREATININE 0.65 mg/dl (0.61-1.24)
[2016-09-26 06:19] LABS: CALCIUM 7.6 mg/dl (8.4-10.2); MAGNESIUM 1.9 mg/dl (1.7-2.5); PHOSPHORUS 2.9 mg/dl (2.5-4.9)
[2016-09-26 06:23] LABS: CONDITION 1; LH ANALYZER COMMENTS 1
[2016-09-26] MEDS: FAMOTIDINE 20 MG INJ IV SCH ×2 (08:40→21:02)
[2016-09-26] MEDS: CEFEPIME 2GM/50 ML (PMX) 50 ML IVPB SCH ×2 (08:40→21:03)
[2016-09-26] MEDS: METOCLOPRAMIDE 10 MG INJ IV SCH ×2 (08:40→21:03)
[2016-09-26] MEDS: ENOXAPARIN 100 MG/ML SYG SC SCH ×2 (08:41→21:11)
--- NOTE | 2016-09-26 10:56 | CONS ---
Date/Time of Note Date/Time of Note DATE: 09/26/16 TIME: 10:50 Consult Date/Type/Reason Admit Date/Time Sep 15, 2016 at 16:54 Initial Consult Date Type of Consultation: pulmonary Subjective Sedated on versed gtt. On mechanical vent. Objective Vital Signs Date Time Temp Pulse Resp B/P Pulse Ox O2 Delivery O2 Flow Rate FiO2 09/26/16 08:30 77 17 94/70 97 Mechanical Ventilator 09/26/16 07:00 97.5 09/26/16 05:10 40 Intake and Output 09/25/16 09/25/16 09/26/16 15:00 23:00 07:00 Intake Total 633.666 ml 699.854 ml 805.48 ml Output Total 385 ml 2655 ml 1030 ml Balance 248.666 ml -1955.146 ml -224.52 ml HEENT: Pupils equal, round, and reactive to light. CARDIAC: S1, S2, RRR. CHEST: Diminished air entry bilaterally ABDOMEN: Mildly distended. No bowel sounds. EXTREMITIES: No cyanosis, clubbing, edema +1 Results/Medications Result Diagram: 09/26/16 0500 09/26/16 0500 Results 24 hrs Laboratory Tests Test 09/25/16 13:21 09/25/16 18:03 09/25/16 23:38 09/26/16 04:58 Bedside Glucose 84 88 74 80 Test 09/26/16 05:00 Anion Gap 10 Basophils # 0.0 Basophils % 0.3 Blood Morphology Comment Blood Urea Nitrogen 19 Calcium Level 7.6 L Carbon Dioxide Level 35 H Chloride Level 106 Creatinine 0.65 Eosinophils # 0.4 Eosinophils % 4.0 Glucose Level 87 Hematocrit 40.2 L Hemoglobin 13.1 L Lymphocytes # 0.8 Lymphocytes % 9.0 L Magnesium Level 1.9 Mean Corpuscular Hemoglobin 29.6 Mean Corpuscular Hemoglobin Concent 32.7 Mean Corpuscular Volume 90.4 Mean Platelet Volume 9.7 Monocytes # 0.9 Monocytes % 10.0 Neutrophils # 7.1 Neutrophils % 76.7 Nucleated Red Blood Cells # 0.0 Nucleated Red Blood Cells % 0.0 Phosphorus Level 2.9 Platelet Count 215 Potassium Level 3.8 Red Blood Count 4.44 L Red Cell Distribution Width 14.8 H Sodium Level 147 H White Blood Count 9.3 Medications Current Medications Lorazepam (Ativan) 0.5 mg Q6H PRN IV ANXIETY Last administered on 09/19/16at 09 :23; Admin Dose 0.5 MG; Start 09/15/16 at 18:00 Ondansetron HCl (Zofran Inj) 4 mg Q6H PRN IV NAUSEA AND/OR VOMITING; Start at 18:00 Morphine Sulfate (morphine) 2 mg Q4H PRN IV PAIN LEVEL 7-10 Last administered on 09/22/16 01:30; Admin Dose 2 MG; Start 09/15/16 at 18:00 Haloperidol 5 mg 5 mg Q6H PRN IM AGITATION Last administered on 09/19/16at 10: 40; Admin Dose 5 MG; Start 09/18/16 at 11:30 Cefepime HCl 50 ml @ 100 mls/hr Q12 IVPB Last administered on 09/26/16 08:40; Admin Dose 100 MLS/HR; Start 09/19/16 at 11:30 Vancomycin HCl 1.5 gm/Sodium Chloride 250 ml @ 83.333 mls/ hr Q12H IVPB Last administered on 09/25/16 23:39; Admin Dose 83.333 MLS/HR; Start 09/19/16 at 23: 30 Propofol (Diprivan) 100 ml @ 3.105 mls/ hr Q12H IV Last administered on 05:19; Admin Dose 3.105 MLS/HR; Start 09/19/16 at 13:30 Famotidine (Pepcid Iv) 20 mg BID IV Last administered on 09/26/16 08:40; Admin Dose 20 MG; Start 09/19/16 at 21:00 Acetaminophen 650 mg 650 mg Q6H PRN NGT PAIN AND OR ELEVATED TEMP Last administered on 09/21/16 15:37; Admin Dose 650 MG; Start 09/19/16 at 16:00 Fentanyl/Dextrose (D5W) 100 ml @ 2.5 mls/hr TITRATE IV Last administered on 23:44; Admin Dose 5 MLS/HR; Start 09/23/16 at 10:00 Miscellaneous Information 1 ea NOTE XX ; Start 09/23/16 at 13:30 Glucose (Glutose) 15 gm Q15M PRN PO DECREASED GLUCOSE; Start 09/23/16 at 13:30 Glucose (Glutose) 22.5 gm Q15M PRN PO DECREASED GLUCOSE; Start 09/23/16 at 13:30 Dextrose (D50w Syringe) 25 ml Q15M PRN IV DECREASED GLUCOSE Last administered on 09/23/16 13:24; Admin Dose 25 ML; Start 09/23/16 at 13:30 Dextrose (D50w Syringe) 50 ml Q15M PRN IV DECREASED GLUCOSE; Start 09/23/16 at 13:30 Glucagon (Glucagen) 1 mg Q15M PRN IM DECREASED GLUCOSE; Start 09/23/16 at 13:30 Glucose 15 gm 15 gm Q15M PRN BUCCAL DECREASED GLUCOSE; Start 09/23/16 at 13:30 Dextrose/Sodium Chloride (D5-NS) 1,000 ml @ 50 mls/hr Q20H IV Last administered on 09/26/16 05:18; Admin Dose 50 MLS/HR; Start 09/23/16 at 16:30 Metoclopramide HCl (Reglan) 10 mg Q12 IV Last administered on 09/26/16 08:40; Admin Dose 10 MG; Start 09/24/16 at 11:30 Enoxaparin Sodium 100 mg 100 mg Q12 SC Last administered on 09/26/16 08:41; Admin Dose 100 MG; Start 09/25/16 at 11:00 Midazolam HCl/ Dextrose (Versed/D5W) 50 ml @ 2 mls/hr TITRATE IV Last administered on 09/25/16 17:03; Admin Dose 4 MLS/HR; Start 09/25/16 at 12:00 Insulin Aspart (Novolog Insulin Pen) NOVOLOG *MODERATE* ALGORI... Q6 SC ; Start 09/25/16 at 18:00 Assessment/Plan Additional Assessment/Plan IMPRESSION: 1. Hypoxemic respiratory failure/vent dependence 2. Right sided pneumonia with complicated parapneumonic effusion s/p thoracentesis 3. Acute pulmonary emboli. 4. Encephalopathy, likely toxic metabolic. 5. Transaminitis 6. FEN- Increased Na+ PLAN: 1. May benefit from a small bore chest tube for drainage of complicated parapneumonic effusion 2. check cocci serologies/TB quant gold 3. continue lovenox 4. start Free H20 5 d/c D5NS 6. Check LFT's 7. Am CXR/ABG 40 min cc time NAV DAVIDSON MD Sep 26, 2016 10:56
--- NOTE | 2016-09-26 11:08 | PN ---
Date/Time of Note Date/Time of Note DATE: 09/26/16 TIME: 11:07 Assessment/Plan VTE Prophylaxis VTE Prophylaxis Intervention: LMWH Lines/Catheters IV Catheter Type (from Nrs): Central Line Central line still needed: Yes Urinary Cath still in place: Yes Reason Cath still needed: skin wounds contaminated by urine Assessment/Plan Chief Complaint/Hosp Course 1) pneumonia - intravenous antibiotics 2) pulmonary embolus - anticoagulation - oxygen 3) agitation - BZDs prn 4) respiratory failure - on ventilator now - appreciate pulmonary assistance 5) pulmonary effusion - s/p thoracentesis Problems: Subjective 24 Hr Interval Summary Free Text/Dictation Patient remain sedated and intubated Exam/Review of Systems Vital Signs Vitals Vital Signs Date Time Temp Pulse Resp B/P Pulse Ox O2 Delivery O2 Flow Rate FiO2 09/26/16 08:30 77 17 94/70 97 Mechanical Ventilator 09/26/16 07:00 97.5 09/26/16 05:10 40 Intake and Output 09/25/16 09/25/16 09/26/16 15:00 23:00 07:00 Intake Total 633.666 ml 699.854 ml 805.48 ml Output Total 385 ml 2655 ml 1030 ml Balance 248.666 ml -1955.146 ml -224.52 ml Exam Constitutional: well developed Head: atraumatic, normocephalic Neck: supple Respiratory: diminished breath sounds Cardiovascular: regular rate and rhythm Gastrointestinal: non-tender, soft Extremities: normal pulses Results Result Diagram: 09/26/16 0500 09/26/16 0500 Results 24 hrs Laboratory Tests Test 09/25/16 13:21 09/25/16 18:03 09/25/16 23:38 09/26/16 04:58 Bedside Glucose 84 88 74 80 Test 09/26/16 05:00 Anion Gap 10 Basophils # 0.0 Basophils % 0.3 Blood Morphology Comment Blood Urea Nitrogen 19 Calcium Level 7.6 L Carbon Dioxide Level 35 H Chloride Level 106 Creatinine 0.65 Eosinophils # 0.4 Eosinophils % 4.0 Glucose Level 87 Hematocrit 40.2 L Hemoglobin 13.1 L Lymphocytes # 0.8 Lymphocytes % 9.0 L Magnesium Level 1.9 Mean Corpuscular Hemoglobin 29.6 Mean Corpuscular Hemoglobin Concent 32.7 Mean Corpuscular Volume 90.4 Mean Platelet Volume 9.7 Monocytes # 0.9 Monocytes % 10.0 Neutrophils # 7.1 Neutrophils % 76.7 Nucleated Red Blood Cells # 0.0 Nucleated Red Blood Cells % 0.0 Phosphorus Level 2.9 Platelet Count 215 Potassium Level 3.8 Red Blood Count 4.44 L Red Cell Distribution Width 14.8 H Sodium Level 147 H White Blood Count 9.3 Medications Medications Current Medications Lorazepam (Ativan) 0.5 mg Q6H PRN IV ANXIETY Last administered on 09/19/16at 09 :23; Admin Dose 0.5 MG; Start 09/15/16 at 18:00 Ondansetron HCl (Zofran Inj) 4 mg Q6H PRN IV NAUSEA AND/OR VOMITING; Start at 18:00 Morphine Sulfate (morphine) 2 mg Q4H PRN IV PAIN LEVEL 7-10 Last administered on 09/22/16 01:30; Admin Dose 2 MG; Start 09/15/16 at 18:00 Haloperidol 5 mg 5 mg Q6H PRN IM AGITATION Last administered on 09/19/16at 10: 40; Admin Dose 5 MG; Start 09/18/16 at 11:30 Cefepime HCl 50 ml @ 100 mls/hr Q12 IVPB Last administered on 09/26/16 08:40; Admin Dose 100 MLS/HR; Start 09/19/16 at 11:30 Vancomycin HCl 1.5 gm/Sodium Chloride 250 ml @ 83.333 mls/ hr Q12H IVPB Last administered on 09/25/16 23:39; Admin Dose 83.333 MLS/HR; Start 09/19/16 at 23: 30 Propofol (Diprivan) 100 ml @ 3.105 mls/ hr Q12H IV Last administered on 05:19; Admin Dose 3.105 MLS/HR; Start 09/19/16 at 13:30 Famotidine (Pepcid Iv) 20 mg BID IV Last administered on 09/26/16 08:40; Admin Dose 20 MG; Start 09/19/16 at 21:00 Acetaminophen 650 mg 650 mg Q6H PRN NGT PAIN AND OR ELEVATED TEMP Last administered on 09/21/16 15:37; Admin Dose 650 MG; Start 09/19/16 at 16:00 Fentanyl/Dextrose (D5W) 100 ml @ 2.5 mls/hr TITRATE IV Last administered on 23:44; Admin Dose 5 MLS/HR; Start 09/23/16 at 10:00 Miscellaneous Information 1 ea NOTE XX ; Start 09/23/16 at 13:30 Glucose (Glutose) 15 gm Q15M PRN PO DECREASED GLUCOSE; Start 09/23/16 at 13:30 Glucose (Glutose) 22.5 gm Q15M PRN PO DECREASED GLUCOSE; Start 09/23/16 at 13:30 Dextrose (D50w Syringe) 25 ml Q15M PRN IV DECREASED GLUCOSE Last administered on 09/23/16 13:24; Admin Dose 25 ML; Start 09/23/16 at 13:30 Dextrose (D50w Syringe) 50 ml Q15M PRN IV DECREASED GLUCOSE; Start 09/23/16 at 13:30 Glucagon (Glucagen) 1 mg Q15M PRN IM DECREASED GLUCOSE; Start 09/23/16 at 13:30 Glucose 15 gm 15 gm Q15M PRN BUCCAL DECREASED GLUCOSE; Start 09/23/16 at 13:30 Dextrose/Sodium Chloride (D5-NS) 1,000 ml @ 50 mls/hr Q20H IV Last administered on 09/26/16 05:18; Admin Dose 50 MLS/HR; Start 09/23/16 at 16:30 Metoclopramide HCl (Reglan) 10 mg Q12 IV Last administered on 09/26/16 08:40; Admin Dose 10 MG; Start 09/24/16 at 11:30 Enoxaparin Sodium 100 mg 100 mg Q12 SC Last administered on 09/26/16 08:41; Admin Dose 100 MG; Start 09/25/16 at 11:00 Midazolam HCl/ Dextrose (Versed/D5W) 50 ml @ 2 mls/hr TITRATE IV Last administered on 09/25/16 17:03; Admin Dose 4 MLS/HR; Start 09/25/16 at 12:00 Insulin Aspart (Novolog Insulin Pen) NOVOLOG *MODERATE* ALGORI... Q6 SC ; Start 09/25/16 at 18:00 DREW MOLINA Sep 26, 2016 11:08
[2016-09-26] MEDS: VANCOMYCIN 1.5 GM in SOD CHLORIDE 0.9% 250 ML IVPB SCH ×2 (11:27→23:34)
--- NOTE | 2016-09-26 14:10 | PN ---
Date/Time of Note Date/Time of Note DATE: 09/26/16 TIME: 14:07 Assessment/Plan Lines/Catheters IV Catheter Type (from Nrs): Central Line Tang in Place (from Nrs): Yes Assessment/Plan Chief Complaint/Hosp Course IMPRESSION 1. Pulmonary embolism. 2. Pneumonia. 3 Pleural effusion RECOMMENDATIONS: We will monitor the pleural effusion. Thorocentesis prn Anticoagulation . . Discussed with the nursing staff. Problems: Subjective 24 Hr Interval Summary Constitutional: improved Pain Control: mild Exam/Review of Systems Vital Signs Vitals Vital Signs Date Time Temp Pulse Resp B/P Pulse Ox O2 Delivery O2 Flow Rate FiO2 09/26/16 11:30 97.5 73 16 89/54 96 09/26/16 08:30 Mechanical Ventilator 09/26/16 05:10 40 Intake and Output 09/25/16 09/25/16 09/26/16 14:59 22:59 06:59 Intake Total 592.333 ml 731.187 ml 770.84 ml Output Total 235 ml 2745 ml 870 ml Balance 357.333 ml -2013.813 ml -99.16 ml Exam Neck: non-tender, supple Respiratory: clear to auscultation, normal air movement Cardiovascular: nl pulses, regular rate and rhythm Gastrointestinal: nl liver, spleen, non-tender, soft Results Result Diagram: 09/26/16 0500 09/26/16 0500 MALEYOUNG DHALIWAL MD Sep 26, 2016 14:10
[2016-09-26] MEDS: FENTAnyl 1,000 MCG in DEXTROSE 5% 80 ML IV SCH (23:47)
[2016-09-26] MEDS: MIDAZOLAM 50 MG in DEXTROSE 5% 40 ML IV SCH (23:48)
[2016-09-27] VITALS (58 sets, daily range): BP systolic 82–112; BP diastolic 55–81; PULSE 70–100; RESP 16–23
[2016-09-27 04:55] LABS: AADO2 Arterial 159.2 mmHg (7.0-24.0); Allen Test ACCEPTAB; Arterial Base Excess 6.7 mmol/L (-3.0-3); Arterial COHb 0.9 % (0.0-3.0); Arterial Fraction of Oxyhgb 93.5 % (93.0-99.0); Arterial HCO3 32.2 mmol/L (22.0-26.0); Arterial MetHb 0.1 % (0.0-1.5); Arterial Total Hemglobin 13.7 g/dl (12.0-18.0); MODE VENT - AC
[2016-09-27 05:13] LABS: BASOPHILS % 0.6 % (0.0-2.0); EOSINOPHILS # 0.4 10^3/ul (0.0-0.5); HEMATOCRIT 39.1 % (42.0-52.0); HEMOGLOBIN 12.2 g/dl (14.0-18.0); LYMPHOCYTES % 11.7 % (15.0-51.0); MEAN CORPUSCULAR HEMOGLOBIN 28.3 pg (29.0-33.0); MEAN CORPUSCULAR HGB CONC 31.3 g/dl (32.0-37.0); MEAN CORPUSCULAR VOLUME 90.3 fl (82.0-101.0); MEAN PLATELET VOLUME 9.7 fl (7.4-10.4); MONOCYTE # 0.9 10^3/ul (0.3-0.9); MONOCYTES % 10.4 % (0.0-11.0); NEUTROPHILS % 72.3 % (39.0-77.0); PLATELET COUNT 240 10^3/UL (140-440); RED BLOOD COUNT 4.32 10^6/ul (4.70-6.10); RED CELL DISTRIBUTION WIDTH 14.7 % (11.5-14.5); UNCORRECTED WBC 8.3 10^3/ul (4.8-10.8); WHITE BLOOD COUNT 8.3 10^3/ul (4.8-10.8)
[2016-09-27 05:37] LABS: CONDITION 1; LH ANALYZER COMMENTS 1
[2016-09-27] MEDS: FUROSEMIDE 40 MG INJ IV SCH ×2 (05:59→17:44)
[2016-09-27] MEDS: INSULIN ASPART [NOVOLOG] 3 ML PEN SC SCH ×4 (05:59→23:49)
[2016-09-27 06:01] LABS: ALBUMIN 2.2 g/dl (3.3-4.9)
[2016-09-27 06:02] LABS: POTASSIUM 3.5 mmol/L (3.5-5.1)
[2016-09-27 06:04] LABS: ALBUMIN/GLOBULIN RATIO 0.61; BILIRUBIN,DIRECT 0.2 mg/dl (0.00-0.20); BILIRUBIN,INDIRECT 0.7 mg/dl (0-1.1); BILIRUBIN,TOTAL 0.9 mg/dl (0.2-1.3); CREATININE 0.66 mg/dl (0.61-1.24); TOTAL PROTEIN 5.8 g/dl (6.1-8.1)
[2016-09-27 06:05] LABS: CALCIUM 7.7 mg/dl (8.4-10.2)
[2016-09-27] MEDS: METOCLOPRAMIDE 10 MG INJ IV SCH ×2 (08:25→20:42)
[2016-09-27] MEDS: CEFEPIME 2GM/50 ML (PMX) 50 ML IVPB SCH ×2 (08:25→20:38)
[2016-09-27] MEDS: FAMOTIDINE 20 MG INJ IV SCH ×2 (08:25→20:42)
[2016-09-27] MEDS: ENOXAPARIN 100 MG/ML SYG SC SCH ×2 (08:26→21:13)
--- NOTE | 2016-09-27 09:54 | RADRPT ---
PROCEDURE: XR Chest. CLINICAL INDICATION: Respiratory failure TECHNIQUE: Portable single view of the chest COMPARISON: 09/25 FINDINGS: Since the prior study, there has been no significant interval change in the appearance of the heart or lungs or position of tubes and lines allowing for slight differences in technique and positioning . Endotracheal tube, nasogastric tube, and left central line remain in place. Pulmonary vascular co ngestion and interstitial edema with probable underlying effusions. Basilar infiltrates or alveolar edema. Cardiomegaly. IMPRESSION: No significant interval change. RPTAT: [facility] Physician Raymon Date Time Electronically viewed and signed by Norma Trevino Physician on 09/27/2016 09:54 LE/
[2016-09-27] MEDS: LORAZEPAM 2 MG INJ IV PRN (10:59)
--- NOTE | 2016-09-27 11:12 | PN ---
Date/Time of Note Date/Time of Note DATE: 09/27/16 TIME: 11:11 Assessment/Plan VTE Prophylaxis VTE Prophylaxis Intervention: LMWH Lines/Catheters IV Catheter Type (from Nrs): Central Line Central line still needed: Yes Urinary Cath still in place: Yes Reason Cath still needed: skin wounds contaminated by urine Assessment/Plan Chief Complaint/Hosp Course 1) pneumonia - intravenous antibiotics 2) pulmonary embolus - anticoagulation - oxygen 3) agitation - BZDs prn 4) respiratory failure - on ventilator now - appreciate pulmonary assistance 5) pulmonary effusion - s/p thoracentesis Problems: Subjective 24 Hr Interval Summary Free Text/Dictation Patient sedated and intubated Exam/Review of Systems Vital Signs Vitals Vital Signs Date Time Temp Pulse Resp B/P Pulse Ox O2 Delivery O2 Flow Rate FiO2 09/27/16 08:30 82 17 90/60 94 09/27/16 08:00 97.9 09/27/16 07:00 Mechanical Ventilator 09/27/16 05:10 40 Intake and Output 09/26/16 09/26/16 09/27/16 15:00 23:00 07:00 Intake Total 821.420 ml 756.365 ml 1005.68 ml Output Total 660 ml 1790 ml 1465 ml Balance 161.420 ml -1033.635 ml -459.32 ml Exam Constitutional: well developed Head: atraumatic, normocephalic Neck: supple Respiratory: diminished breath sounds Cardiovascular: regular rate and rhythm Gastrointestinal: non-tender, soft Extremities: normal pulses Results Result Diagram: 09/27/16 0400 09/27/16 0400 Results 24 hrs Laboratory Tests Test 09/26/16 11:37 09/26/16 18:21 09/26/16 23:46 09/27/16 04:00 Bedside Glucose 88 84 80 Alanine Aminotransferase (ALT/SGPT) 201 H Albumin 2.2 L Albumin/Globulin Ratio 0.61 Alkaline Phosphatase 120 Anion Gap 10 Aspartate Amino Transf (AST/SGOT) 83 H Basophils # 0.0 Basophils % 0.6 Blood Morphology Comment Blood Urea Nitrogen 18 Calcium Level 7.7 L Carbon Dioxide Level 35 H Chloride Level 105 Creatinine 0.66 Direct Bilirubin 0.20 Eosinophils # 0.4 Eosinophils % 5.0 Globulin 3.60 H Glucose Level 78 Hematocrit 39.1 L Hemoglobin 12.2 L Indirect Bilirubin 0.7 Lactic Acid Level 1.0 Lymphocytes # 1.0 Lymphocytes % 11.7 L Mean Corpuscular Hemoglobin 28.3 L Mean Corpuscular Hemoglobin Concent 31.3 L Mean Corpuscular Volume 90.3 Mean Platelet Volume 9.7 Monocytes # 0.9 Monocytes % 10.4 Neutrophils # 6.0 Neutrophils % 72.3 Nucleated Red Blood Cells # 0.0 Nucleated Red Blood Cells % 0.0 Platelet Count 240 Potassium Level 3.5 Red Blood Count 4.32 L Red Cell Distribution Width 14.7 H Sodium Level 146 H Total Bilirubin 0.9 Total Protein 5.8 L White Blood Count 8.3 Test 09/27/16 04:20 09/27/16 05:00 Bedside Glucose 74 Arterial Blood HCO3 32.2 H Arterial Blood Base Excess 6.7 H Arterial Blood Oxygen Saturation 94.4 L Sky Test ACCEPTAB Arterial Blood Gas Puncture Site Right Radial Arterial Blood Carboxyhemoglobin 0.9 Arterial Blood Date Drawn 09/27/2016 4:43:58 AM Arterial Blood Methemoglobin 0.1 Arterial Blood pCO2 (Temp correct) 49.8 H Arterial Blood pH (Temp corrected) 7.429 Arterial Blood pO2 (Temp corrected) 68.7 L Blood Gas A-a O2 Differential 159.2 H Blood Gas Actual Respiration Rate 16 Blood Gas Inspiratory Pressure 21.0 Blood Gas Low PEEP Setting 5.0 Blood Gas Modality VENT - AC Blood Gas Notified Time 09/27/2016 4:55:30 AM Blood Gas Notified Whom LW Blood Gas Respiration Rate 16.0 Blood Gas Specimen Source Blood arterial Blood Gas Temperature 37.0 Blood Gas Tidal Volume 500.0 FiO2 40.0 Oxyhemoglobin Percent 93.5 Total Hemoglobin 13.7 Medications Medications Current Medications Lorazepam (Ativan) 0.5 mg Q6H PRN IV ANXIETY Last administered on 09/19/16at 09 :23; Admin Dose 0.5 MG; Start 09/15/16 at 18:00 Ondansetron HCl (Zofran Inj) 4 mg Q6H PRN IV NAUSEA AND/OR VOMITING; Start at 18:00 Morphine Sulfate (morphine) 2 mg Q4H PRN IV PAIN LEVEL 7-10 Last administered on 09/22/16t 01:30; Admin Dose 2 MG; Start 09/15/16 at 18:00 Haloperidol 5 mg 5 mg Q6H PRN IM AGITATION Last administered on 09/19/16at 10: 40; Admin Dose 5 MG; Start 09/18/16 at 11:30 Cefepime HCl 50 ml @ 100 mls/hr Q12 IVPB Last administered on 09/27/16 08:25; Admin Dose 100 MLS/HR; Start 09/19/16 at 11:30 Vancomycin HCl 1.5 gm/Sodium Chloride 250 ml @ 83.333 mls/ hr Q12H IVPB Last administered on 09/26/16 23:34; Admin Dose 83.333 MLS/HR; Start 09/19/16 at 23: 30 Propofol (Diprivan) 100 ml @ 3.105 mls/ hr Q12H IV Last administered on 21:04; Admin Dose 3.105 MLS/HR; Start 09/19/16 at 13:30 Famotidine (Pepcid Iv) 20 mg BID IV Last administered on 09/27/16 08:25; Admin Dose 20 MG; Start 09/19/16 at 21:00 Acetaminophen 650 mg 650 mg Q6H PRN NGT PAIN AND OR ELEVATED TEMP Last administered on 09/21/16 15:37; Admin Dose 650 MG; Start 09/19/16 at 16:00 Fentanyl/Dextrose (D5W) 100 ml @ 2.5 mls/hr TITRATE IV Last administered on 23:47; Admin Dose 5 MLS/HR; Start 09/23/16 at 10:00 Miscellaneous Information 1 ea NOTE XX ; Start 09/23/16 at 13:30 Glucose (Glutose) 15 gm Q15M PRN PO DECREASED GLUCOSE; Start 09/23/16 at 13:30 Glucose (Glutose) 22.5 gm Q15M PRN PO DECREASED GLUCOSE; Start 09/23/16 at 13:30 Dextrose (D50w Syringe) 25 ml Q15M PRN IV DECREASED GLUCOSE Last administered on 09/23/16 13:24; Admin Dose 25 ML; Start 09/23/16 at 13:30 Dextrose (D50w Syringe) 50 ml Q15M PRN IV DECREASED GLUCOSE; Start 09/23/16 at 13:30 Glucagon (Glucagen) 1 mg Q15M PRN IM DECREASED GLUCOSE; Start 09/23/16 at 13:30 Glucose 15 gm 15 gm Q15M PRN BUCCAL DECREASED GLUCOSE; Start 09/23/16 at 13:30 Dextrose/Sodium Chloride (D5-NS) 1,000 ml @ 50 mls/hr Q20H IV Last administered on 09/26/16 23:49; Admin Dose 50 MLS/HR; Start 09/23/16 at 16:30 Metoclopramide HCl (Reglan) 10 mg Q12 IV Last administered on 09/27/16 08:25; Admin Dose 10 MG; Start 09/24/16 at 11:30 Enoxaparin Sodium 100 mg 100 mg Q12 SC Last administered on 09/27/16 08:26; Admin Dose 100 MG; Start 09/25/16 at 11:00 Midazolam HCl/ Dextrose (Versed/D5W) 50 ml @ 2 mls/hr TITRATE IV Last administered on 09/26/16 23:48; Admin Dose 4 MLS/HR; Start 09/25/16 at 12:00 Insulin Aspart (Novolog Insulin Pen) NOVOLOG *MODERATE* ALGORI... Q6 SC ; Start 09/25/16 at 18:00 DREW MOLINA Sep 27, 2016 11:11
[2016-09-27] MEDS: VANCOMYCIN 1.5 GM in SOD CHLORIDE 0.9% 250 ML IVPB SCH ×2 (11:22→23:49)
--- NOTE | 2016-09-27 13:08 | CONS ---
Date/Time of Note Date/Time of Note DATE: 09/27/16 TIME: 13:05 Consult Date/Type/Reason Admit Date/Time Sep 15, 2016 at 16:54 Type of Consultation: pulmonary Subjective Sedated on MV. Objective Vital Signs Date Time Temp Pulse Resp B/P Pulse Ox O2 Delivery O2 Flow Rate FiO2 09/27/16 12:00 76 09/27/16 08:30 17 90/60 94 09/27/16 08:00 97.9 09/27/16 07:00 Mechanical Ventilator 09/27/16 05:10 40 Intake and Output 09/26/16 09/26/16 09/27/16 15:00 23:00 07:00 Intake Total 821.420 ml 756.365 ml 1005.68 ml Output Total 660 ml 1790 ml 1465 ml Balance 161.420 ml -1033.635 ml -459.32 ml HEENT: Pupils equal, round, and reactive to light. CARDIAC: S1, S2, RRR. CHEST: Decreased BS R > L ABDOMEN: Mildly distended. No bowel sounds. EXTREMITIES: No cyanosis, clubbing, edema +1 Results/Medications Result Diagram: 09/27/16 0400 09/27/16 0400 Results 24 hrs Laboratory Tests Test 09/26/16 18:21 09/26/16 23:46 09/27/16 04:00 09/27/16 04:20 Bedside Glucose 84 80 74 Alanine Aminotransferase (ALT/SGPT) 201 H Albumin 2.2 L Albumin/Globulin Ratio 0.61 Alkaline Phosphatase 120 Anion Gap 10 Aspartate Amino Transf (AST/SGOT) 83 H Basophils # 0.0 Basophils % 0.6 Blood Morphology Comment Blood Urea Nitrogen 18 Calcium Level 7.7 L Carbon Dioxide Level 35 H Chloride Level 105 Creatinine 0.66 Direct Bilirubin 0.20 Eosinophils # 0.4 Eosinophils % 5.0 Globulin 3.60 H Glucose Level 78 Hematocrit 39.1 L Hemoglobin 12.2 L Indirect Bilirubin 0.7 Lactic Acid Level 1.0 Lymphocytes # 1.0 Lymphocytes % 11.7 L Mean Corpuscular Hemoglobin 28.3 L Mean Corpuscular Hemoglobin Concent 31.3 L Mean Corpuscular Volume 90.3 Mean Platelet Volume 9.7 Monocytes # 0.9 Monocytes % 10.4 Neutrophils # 6.0 Neutrophils % 72.3 Nucleated Red Blood Cells # 0.0 Nucleated Red Blood Cells % 0.0 Platelet Count 240 Potassium Level 3.5 Red Blood Count 4.32 L Red Cell Distribution Width 14.7 H Sodium Level 146 H Total Bilirubin 0.9 Total Protein 5.8 L White Blood Count 8.3 Test 09/27/16 05:00 09/27/16 12:56 Arterial Blood HCO3 32.2 H Arterial Blood Base Excess 6.7 H Arterial Blood Oxygen Saturation 94.4 L Sky Test ACCEPTAB Arterial Blood Gas Puncture Site Right Radial Arterial Blood Carboxyhemoglobin 0.9 Arterial Blood Date Drawn 09/27/2016 4:43:58 AM Arterial Blood Methemoglobin 0.1 Arterial Blood pCO2 (Temp correct) 49.8 H Arterial Blood pH (Temp corrected) 7.429 Arterial Blood pO2 (Temp corrected) 68.7 L Blood Gas A-a O2 Differential 159.2 H Blood Gas Actual Respiration Rate 16 Blood Gas Inspiratory Pressure 21.0 Blood Gas Low PEEP Setting 5.0 Blood Gas Modality VENT - AC Blood Gas Notified Time 09/27/2016 4:55:30 AM Blood Gas Notified Whom LW Blood Gas Respiration Rate 16.0 Blood Gas Specimen Source Blood arterial Blood Gas Temperature 37.0 Blood Gas Tidal Volume 500.0 FiO2 40.0 Oxyhemoglobin Percent 93.5 Total Hemoglobin 13.7 Bedside Glucose 81 Medications Current Medications Lorazepam (Ativan) 0.5 mg Q6H PRN IV ANXIETY Last administered on 09/27/16 10: 59; Admin Dose 0.5 MG; Start 09/15/16 at 18:00 Ondansetron HCl (Zofran Inj) 4 mg Q6H PRN IV NAUSEA AND/OR VOMITING; Start at 18:00 Morphine Sulfate (morphine) 2 mg Q4H PRN IV PAIN LEVEL 7-10 Last administered on 09/22/16 01:30; Admin Dose 2 MG; Start 09/15/16 at 18:00 Haloperidol 5 mg 5 mg Q6H PRN IM AGITATION Last administered on 09/19/16at 10: 40; Admin Dose 5 MG; Start 09/18/16 at 11:30 Cefepime HCl 50 ml @ 100 mls/hr Q12 IVPB Last administered on 09/27/16 08:25; Admin Dose 100 MLS/HR; Start 09/19/16 at 11:30 Vancomycin HCl 1.5 gm/Sodium Chloride 250 ml @ 83.333 mls/ hr Q12H IVPB Last administered on 09/27/16 11:22; Admin Dose 83.333 MLS/HR; Start 09/19/16 at 23: 30 Propofol (Diprivan) 100 ml @ 3.105 mls/ hr Q12H IV Last administered on 21:04; Admin Dose 3.105 MLS/HR; Start 09/19/16 at 13:30 Famotidine (Pepcid Iv) 20 mg BID IV Last administered on 09/27/16 08:25; Admin Dose 20 MG; Start 09/19/16 at 21:00 Acetaminophen 650 mg 650 mg Q6H PRN NGT PAIN AND OR ELEVATED TEMP Last administered on 09/21/16 15:37; Admin Dose 650 MG; Start 09/19/16 at 16:00 Fentanyl/Dextrose (D5W) 100 ml @ 2.5 mls/hr TITRATE IV Last administered on 23:47; Admin Dose 5 MLS/HR; Start 09/23/16 at 10:00 Miscellaneous Information 1 ea NOTE XX ; Start 09/23/16 at 13:30 Glucose (Glutose) 15 gm Q15M PRN PO DECREASED GLUCOSE; Start 09/23/16 at 13:30 Glucose (Glutose) 22.5 gm Q15M PRN PO DECREASED GLUCOSE; Start 09/23/16 at 13:30 Dextrose (D50w Syringe) 25 ml Q15M PRN IV DECREASED GLUCOSE Last administered on 09/23/16 13:24; Admin Dose 25 ML; Start 09/23/16 at 13:30 Dextrose (D50w Syringe) 50 ml Q15M PRN IV DECREASED GLUCOSE; Start 09/23/16 at 13:30 Glucagon (Glucagen) 1 mg Q15M PRN IM DECREASED GLUCOSE; Start 09/23/16 at 13:30 Glucose 15 gm 15 gm Q15M PRN BUCCAL DECREASED GLUCOSE; Start 09/23/16 at 13:30 Dextrose/Sodium Chloride (D5-NS) 1,000 ml @ 50 mls/hr Q20H IV Last administered on 09/26/16 23:49; Admin Dose 50 MLS/HR; Start 09/23/16 at 16:30 Metoclopramide HCl (Reglan) 10 mg Q12 IV Last administered on 09/27/16 08:25; Admin Dose 10 MG; Start 09/24/16 at 11:30 Enoxaparin Sodium 100 mg 100 mg Q12 SC Last administered on 09/27/16 08:26; Admin Dose 100 MG; Start 09/25/16 at 11:00 Midazolam HCl/ Dextrose (Versed/D5W) 50 ml @ 2 mls/hr TITRATE IV Last administered on 09/26/16 23:48; Admin Dose 4 MLS/HR; Start 09/25/16 at 12:00 Insulin Aspart (Novolog Insulin Pen) NOVOLOG *MODERATE* ALGORI... Q6 SC ; Start 09/25/16 at 18:00 Assessment/Plan Additional Assessment/Plan IMPRESSION: 1. Hypoxemic respiratory failure/vent dependence 2. Right sided pneumonia with complicated parapneumonic effusion s/p thoracentesis 3. Acute pulmonary emboli 4. Encephalopathy, likely toxic metabolic. 5. Transaminitis 6. FEN- Increased Na+ PLAN: 1. Small bore R chest tube by CT surgery or IR 2. check cocci serologies/TB quant gold 3. continue lovenox 4. Continue Free H20 5 d/c D5NS 6. Check LFT's 7. Am CXR/ABG 40 min cc time NAV DAVIDSON MD Sep 27, 2016 13:08
--- NOTE | 2016-09-27 13:55 | RADRPT ---
PROCEDURE: CT Chest without contrast. CLINICAL INDICATION: Shortness of breath. Loculated pleural effusion. TECHNIQUE: Helical axial sections were obtained through the chest without intravenous contrast enh ancement. Coronal and sagittal reformatted images were obtained from the axial source images. Total exam DLP is 671.35 mGy-cm. CTDIvol is 16.29 mGy. One or more of the following dose reduction taurus hniques were used: Automated exposure control, adjustment of the mA and/or kV according to patient s ize, use of iterative reconstruction technique. COMPARISON: Chest radiograph dated 09/27/2016. FINDINGS: Endotracheal tube and nasogastric tube are in satisfactory position. There is consolidation bilater ally in the lower lobes consistent with atelectasis. Superimposed pneumonia cannot be excluded. Ri ght is worse than left. The upper and midlung zones are clear. There is a [id number] right pleural effusion and a small left pleural effusion. There is no pericardial effusion. The heart is enlarged. There is no pulmonary nodule or mass lesion. There is no mediastinal or hilar lymphadenopathy or mass. There is no axillary, supraclavicular, or internal mammary lymphadenopathy. The thoracic aorta is not dilated. There is a left subclavian venous catheter with the tip in the u pper superior vena cava. Images through the upper abdomen demonstrate normal visualized portions of the liver, spleen, and ad renals. There are mild degenerative changes of the spine. There is no fracture or lytic lesion. IMPRESSION: 1. Endotracheal tube, nasogastric tube, and left subclavian vein catheter in satisfactory position. 2. Atelectasis throughout both lower lobes. Superimposed pneumonia cannot be excluded. 3. Moderate to large right pleural effusion and small left pleural effusion. 4. Cardiomegaly. 5. Mild degenerative changes of the spine. 6. Otherwise unremarkable study. RPTAT: QQ .Zack Gonsalez MD, MD Date Time Electronically viewed and signed by .Zack Gonsalez MD, on 09/27/2016 13:55 .R/
--- NOTE | 2016-09-27 14:53 | PN ---
Date/Time of Note Date/Time of Note DATE: 09/27/16 TIME: 14:51 Assessment/Plan Lines/Catheters IV Catheter Type (from Nrsg): Central Line Tang in Place (from Nrsg): Yes Assessment/Plan Chief Complaint/Hosp Course IMPRESSION 1. Pulmonary embolism. 2. Pneumonia. 3 Pleural effusion RECOMMENDATIONS: We will monitor the pleural effusion. Thorocentesis prn Anticoagulation . . Discussed with the nursing staff. Problems: Subjective 24 Hr Interval Summary Constitutional: improved Pain Control: mild Exam/Review of Systems Vital Signs Vitals Vital Signs Date Time Temp Pulse Resp B/P Pulse Ox O2 Delivery O2 Flow Rate FiO2 09/27/16 12:00 76 09/27/16 08:30 17 90/60 94 09/27/16 08:00 97.9 09/27/16 07:00 Mechanical Ventilator 09/27/16 05:10 40 Intake and Output 09/26/16 09/26/16 09/27/16 14:59 22:59 06:59 Intake Total 592.955 ml 1023.260 ml 975.68 ml Output Total 805 ml 1545 ml 1460 ml Balance -212.045 ml -521.740 ml -484.32 ml Exam ENMT: mucosa pink and moist, nl external ears & nose, nl lips & teeth, nl nasal mucosa & septum Neck: non-tender, supple Respiratory: clear to auscultation, normal air movement Cardiovascular: nl pulses, regular rate and rhythm Gastrointestinal: nl liver, spleen, non-tender, soft Results Result Diagram: 09/27/1639909/27/16399 YOUNG HAY MD Sep 27, 2016 14:53
[2016-09-27] MEDS: FENTAnyl 1,000 MCG in DEXTROSE 5% 80 ML IV SCH (17:47)
[2016-09-27] MEDS: PROPOFOL 100 ML IV SCH (20:36)
[2016-09-27] MEDS: ACETAMINOPHEN 650MG/20.3ML CUP NGT PRN (20:41)
[2016-09-27] MEDS: DEXTROSE 5%-0.9% NACL 1,000 ML IV SCH (20:42)
[2016-09-28] VITALS (51 sets, daily range): BP systolic 84–105; BP diastolic 52–80; PULSE 70–100; RESP 14–22
[2016-09-28] MEDS: MIDAZOLAM 50 MG in DEXTROSE 5% 40 ML IV SCH (04:33)
[2016-09-28] MEDS: PROPOFOL 100 ML IV SCH ×2 (04:34→18:15)
[2016-09-28 05:16] LABS: AADO2 Arterial 152.4 mmHg (7.0-24.0); Allen Test ACCEPTAB; Arterial Base Excess 8.5 mmol/L (-3.0-3); Arterial COHb 0.7 % (0.0-3.0); Arterial Fraction of Oxyhgb 94.6 % (93.0-99.0); Arterial MetHb 0.1 % (0.0-1.5); Arterial Total Hemglobin 13.8 g/dl (12.0-18.0); MODE VENT - AC
[2016-09-28 05:21] LABS: BASOPHILS % 0.4 % (0.0-2.0); EOSINOPHILS # 0.4 10^3/ul (0.0-0.5); EOSINOPHILS % 5.5 % (0.0-7.0); HEMATOCRIT 39.8 % (42.0-52.0); HEMOGLOBIN 12.9 g/dl (14.0-18.0); LYMPHOCYTES # 0.9 10^3/ul (0.8-2.9); LYMPHOCYTES % 12.6 % (15.0-51.0); MEAN CORPUSCULAR HGB CONC 32.3 g/dl (32.0-37.0); MEAN CORPUSCULAR VOLUME 89.8 fl (82.0-101.0); MEAN PLATELET VOLUME 9.9 fl (7.4-10.4); MONOCYTE # 0.7 10^3/ul (0.3-0.9); MONOCYTES % 10.1 % (0.0-11.0); NEUTROPHIL # 4.9 10^3/ul (1.6-7.5); NEUTROPHILS % 71.4 % (39.0-77.0); PLATELET COUNT 260 10^3/UL (140-440); RED BLOOD COUNT 4.43 10^6/ul (4.70-6.10); RED CELL DISTRIBUTION WIDTH 14.5 % (11.5-14.5); UNCORRECTED WBC 6.9 10^3/ul (4.8-10.8); WHITE BLOOD COUNT 6.9 10^3/ul (4.8-10.8)
[2016-09-28 05:36] LABS: CONDITION 1
[2016-09-28 05:40] LABS: POTASSIUM 3.5 mmol/L (3.5-5.1)
[2016-09-28 05:42] LABS: CREATININE 0.75 mg/dl (0.61-1.24)
[2016-09-28 05:43] LABS: CALCIUM 7.7 mg/dl (8.4-10.2)
[2016-09-28] MEDS: INSULIN ASPART [NOVOLOG] 3 ML PEN SC SCH ×4 (06:00→23:42)
[2016-09-28] MEDS: FUROSEMIDE 40 MG INJ IV SCH ×2 (06:24→21:46)
--- NOTE | 2016-09-28 08:39 | RADRPT ---
PROCEDURE: XR Chest AP portable CLINICAL INDICATION: PE, sepsis, pneumonia TECHNIQUE: An AP portable radiograph of the chest was submitted. COMPARISON: 09/27/2016 FINDINGS: Support Hardware: The endotracheal tube and the NG tube are stable in positioning as is the left sub clavian central venous catheter. Cardiovascular: The heart remains mildly enlarged of the piriform plantar vasculature appears unrema rkable. Lung Daley: There has been no significant interval change to the alveolar infiltrate seen within th e lower lung zones bilaterally. Pleural Spaces: A right pleural fluid accumulation cannot be excluded as the costophrenic angle is o bscured. Osseous Structures: The osseous structures appear intact. Soft Tissues: The soft tissues appear unremarkable. IMPRESSION: 1. The endotracheal tube, NG tube and the left subclavian central venous catheter are stable and po sitioning. 2. Persistent cardiomegaly but the pulmonary vasculature upper normal. 3. Alveolar infiltrates again seen within the lower lung zones, with suspicion of a small right ple ural fluid accumulation. Physician Joanna Date Time Electronically viewed and signed by Physician Joanna on 09/28/2016 08:39 /
[2016-09-28] MEDS: FAMOTIDINE 20 MG INJ IV SCH ×2 (09:52→21:46)
[2016-09-28] MEDS: METOCLOPRAMIDE 10 MG INJ IV SCH ×2 (09:52→21:46)
[2016-09-28] MEDS: CEFEPIME 2GM/50 ML (PMX) 50 ML IVPB SCH ×2 (09:53→21:47)
[2016-09-28] MEDS: ENOXAPARIN 100 MG/ML SYG SC SCH ×2 (09:54→22:16)
--- NOTE | 2016-09-28 12:42 | CONS ---
Date/Time of Note Date/Time of Note DATE: 09/28/16 TIME: 12:40 Consult Date/Type/Reason Admit Date/Time Sep 15, 2016 at 16:54 Type of Consultation: pulmonary Subjective Patient is intubated sedated on mechanical ventilation Febrile this morning temperature 102.4 Continues to remain hemodynamically stable Objective Vital Signs Date Time Temp Pulse Resp B/P Pulse Ox O2 Delivery O2 Flow Rate FiO2 09/28/16 12:00 99 09/28/16 10:55 16 100 40 09/28/16 10:00 97/70 Mechanical Ventilator 09/28/16 08:00 102.4 Intake and Output 09/27/16 09/27/16 09/28/16 15:00 23:00 07:00 Intake Total 571.84 ml 1201 ml 480 ml Output Total 900 ml 1500 ml 1440 ml Balance -328.16 ml -299 ml -960 ml PHYSICAL EXAMINATION GENERAL: Chronically ill gentleman intubated on mechanical ventilation VITAL SIGNS: see below. HEENT: Pupils equal, round, and reactive to light. CARDIAC: S1, S2, CHEST: Diminished air entry bilaterally. ABDOMEN: Mildly distended. Bowel sounds present abdomen mildly distended no guarding or rebound. EXTREMITIES: No cyanosis, clubbing edema +1 NEUROLOGIC: No focal deficits. Results/Medications Result Diagram: 09/28/16 0400 09/28/16 0400 Results 24 hrs Chest x-ray Right greater than left effusion Laboratory Tests Test 09/27/16 12:56 09/27/16 17:40 09/27/16 23:54 09/28/16 03:44 Bedside Glucose 81 72 96 73 Test 09/28/16 04:00 09/28/16 05:00 09/28/16 10:18 Anion Gap 11 Basophils # 0.0 Basophils % 0.4 Blood Urea Nitrogen 19 Calcium Level 7.7 L Carbon Dioxide Level 38 H Chloride Level 101 Creatinine 0.75 Eosinophils # 0.4 Eosinophils % 5.5 Glucose Level 79 Hematocrit 39.8 L Hemoglobin 12.9 L Lymphocytes # 0.9 Lymphocytes % 12.6 L Mean Corpuscular Hemoglobin 29.0 Mean Corpuscular Hemoglobin Concent 32.3 Mean Corpuscular Volume 89.8 Mean Platelet Volume 9.9 Monocytes # 0.7 Monocytes % 10.1 Neutrophils # 4.9 Neutrophils % 71.4 Nucleated Red Blood Cells # 0.0 Nucleated Red Blood Cells % 0.0 Platelet Count 260 Potassium Level 3.5 Red Blood Count 4.43 L Red Cell Distribution Width 14.5 Sodium Level 146 H White Blood Count 6.9 Arterial Blood HCO3 34.0 H Arterial Blood Base Excess 8.5 H Arterial Blood Oxygen Saturation 95.4 Sky Test ACCEPTAB Arterial Blood Gas Puncture Site Right Radial Arterial Blood Carboxyhemoglobin 0.7 Arterial Blood Date Drawn 09/28/2016 4:52:36 AM Arterial Blood Methemoglobin 0.1 Arterial Blood pCO2 (Temp correct) 50.3 H Arterial Blood pH (Temp corrected) 7.448 Arterial Blood pO2 (Temp corrected) 75.0 L Blood Gas A-a O2 Differential 152.4 H Blood Gas Actual Respiration Rate 18 Blood Gas Inspiratory Pressure 25.0 Blood Gas Low PEEP Setting 5.0 Blood Gas Modality VENT - AC Blood Gas Notified Time 09/28/2016 5:16:05 AM Blood Gas Notified Whom RTR Blood Gas Respiration Rate 16.0 Blood Gas Specimen Source Blood arterial Blood Gas Temperature 37.0 Blood Gas Tidal Volume 500.0 FiO2 40.0 Oxyhemoglobin Percent 94.6 Total Hemoglobin 13.8 Vancomycin Level Trough 16.2 Medications Current Medications Lorazepam (Ativan) 0.5 mg Q6H PRN IV ANXIETY Last administered on 09/27/16 10: 59; Admin Dose 0.5 MG; Start 09/15/16 at 18:00 Ondansetron HCl (Zofran Inj) 4 mg Q6H PRN IV NAUSEA AND/OR VOMITING; Start at 18:00 Morphine Sulfate (morphine) 2 mg Q4H PRN IV PAIN LEVEL 7-10 Last administered on 09/22/16 01:30; Admin Dose 2 MG; Start 09/15/16 at 18:00 Haloperidol 5 mg 5 mg Q6H PRN IM AGITATION Last administered on 09/19/16at 10: 40; Admin Dose 5 MG; Start 09/18/16 at 11:30 Cefepime HCl 50 ml @ 100 mls/hr Q12 IVPB Last administered on 09/28/16 09:53; Admin Dose 100 MLS/HR; Start 09/19/16 at 11:30 Vancomycin HCl 1.5 gm/Sodium Chloride 250 ml @ 83.333 mls/ hr Q12H IVPB Last administered on 09/27/16 23:49; Admin Dose 83.333 MLS/HR; Start 09/19/16 at 23: 30 Propofol (Diprivan) 100 ml @ 3.105 mls/ hr Q12H IV Last administered on 04:34; Admin Dose 6.21 MLS/HR; Start 09/19/16 at 13:30 Famotidine (Pepcid Iv) 20 mg BID IV Last administered on 09/28/16 09:52; Admin Dose 20 MG; Start 09/19/16 at 21:00 Acetaminophen 650 mg 650 mg Q6H PRN NGT PAIN AND OR ELEVATED TEMP Last administered on 09/27/16 20:41; Admin Dose 650 MG; Start 09/19/16 at 16:00 Fentanyl/Dextrose (D5W) 100 ml @ 2.5 mls/hr TITRATE IV Last administered on 17:47; Admin Dose 7 MLS/HR; Start 09/23/16 at 10:00 Miscellaneous Information 1 ea NOTE XX ; Start 09/23/16 at 13:30 Glucose (Glutose) 15 gm Q15M PRN PO DECREASED GLUCOSE; Start 09/23/16 at 13:30 Glucose (Glutose) 22.5 gm Q15M PRN PO DECREASED GLUCOSE; Start 09/23/16 at 13:30 Dextrose (D50w Syringe) 25 ml Q15M PRN IV DECREASED GLUCOSE Last administered on 09/23/16 13:24; Admin Dose 25 ML; Start 09/23/16 at 13:30 Dextrose (D50w Syringe) 50 ml Q15M PRN IV DECREASED GLUCOSE; Start 09/23/16 at 13:30 Glucagon (Glucagen) 1 mg Q15M PRN IM DECREASED GLUCOSE; Start 09/23/16 at 13:30 Glucose 15 gm 15 gm Q15M PRN BUCCAL DECREASED GLUCOSE; Start 09/23/16 at 13:30 Dextrose/Sodium Chloride (D5-NS) 1,000 ml @ 50 mls/hr Q20H IV Last administered on 09/27/16 20:42; Admin Dose 50 MLS/HR; Start 09/23/16 at 16:30 Metoclopramide HCl (Reglan) 10 mg Q12 IV Last administered on 09/28/16 09:52; Admin Dose 10 MG; Start 09/24/16 at 11:30 Enoxaparin Sodium 100 mg 100 mg Q12 SC Last administered on 09/28/16 09:54; Admin Dose 100 MG; Start 09/25/16 at 11:00 Midazolam HCl/ Dextrose (Versed/D5W) 50 ml @ 2 mls/hr TITRATE IV Last administered on 09/28/16 04:33; Admin Dose 2 MLS/HR; Start 09/25/16 at 12:00 Insulin Aspart (Novolog Insulin Pen) NOVOLOG *MODERATE* ALGORI... Q6 SC ; Start 09/25/16 at 18:00 Assessment/Plan Chief Complaint/Hosp Course IMPRESSION: 1. Hypoxemic respiratory failure/vent dependence 2. Right sided pneumonia with complicated parapneumonic effusion s/p thoracentesis 3. Acute pulmonary emboli 4. Encephalopathy, likely toxic metabolic. 5. Transaminitis 6. FEN- Increased Na+ PLAN: 1. Repeat thoracentesis today. Continues to reaccumulate may require a Pleurx catheter or chest tube 2. check cocci serologies/TB quant gold 3. continue lovenox 4. Continue Free H20 5 d/c D5NS 6. Check LFT's 7. Am CXR/ABG Problems: AMANDA STONE MD, FCCP Sep 28, 2016 12:42
[2016-09-28] MEDS: FENTAnyl 1,000 MCG in DEXTROSE 5% 80 ML IV SCH (13:13)
[2016-09-28] MEDS: VANCOMYCIN 1.25 GM in SOD CHLORIDE 0.9% 250 ML IVPB SCH (15:09)
[2016-09-28] MEDS: ACETAMINOPHEN 650MG/20.3ML CUP NGT PRN (15:16)
[2016-09-28] MEDS: DEXTROSE 5%-0.9% NACL 1,000 ML IV SCH (16:30)
--- NOTE | 2016-09-28 17:22 | PN ---
DATE: 09/28/2016 SUBJECTIVE: Follow up on 40-year-old gentleman with hypoxic respiratory failure and right-sided pne umonia, status post thoracentesis. Patient is currently orally intubated on vent and sedation. The patient spiked fever this morning 102.4, pancultured. OBJECTIVE: VITAL SIGNS: Temperature is 102.4, pulse 98, blood pressure 97/68, respiratory rate 17, oxygen satu ration 96% on 40% FIO2. GENERAL: Well-developed, well-nourished male currently sedated, orally intubated on vent. NECK: Supple. No mass, no thyromegaly. LUNGS: Diminished with scattered rhonchi bilaterally. HEART: Normal S1, S2. No murmurs, gallops, clicks, rubs noted. ABDOMEN: Round, soft, nondistended, nontender. Bowel sounds present. EXTREMITIES: No edema, clubbing, cyanosis. Pulses equal bilaterally 2+. SKIN: There is no rash. NEUROLOGIC: The patient is sedated. LABORATORY DATA FOR TODAY: CBC: White blood cells 6.9, hemoglobin 12.9, hematocrit 39.8, platelets 260. Chemistry: Sodium 146, potassium 3.5, chloride 101, carbon dioxide 38, anion gap 11, BUN is 19, creatinine 0.75, glucose 79. ASSESSMENT AND PLAN: 1. Acute respiratory failure. Dr. Aquino is following the patient from pulmonology consultation. Continue bronchodilators and vent support. 2. Right-sided pneumonia with complicated parapneumonic effusion, status post thoracentesis. Cheng nue patient on vancomycin and cefepime. We will panculture. Dr. Hernandez is asked to see patient f rom an Infectious Disease standpoint. 3. Acute pulmonary emboli. Continue patient on Lovenox. 4. Systolic and diastolic congestive heart failure with ejection fraction of 20%. Continue patient on Lasix. 5. Encephalopathy, likely toxic metabolic. Continue to monitor. We will continue Pepcid for peptic ulcer disease prophylaxis. Further recommendations based on clin ical course. Plan of care discussed with Dr. Riley. Dictated By: JAN ZHANG TOOTH INSPECTOR for ZOILA RILEY MD SR/NTS Conf#: [id number] DID#: [id number]
--- NOTE | 2016-09-28 21:19 | PN ---
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 Pulmonary embolism. 2. Pneumonia. 3 Pleural effusion RECOMMENDATIONS: We will monitor the pleural effusion. Thorocentesis prn Anticoagulation . . Discussed with the nursing staff. Problems: Subjective 24 Hr Interval Summary Constitutional: improved Pain Control: mild Exam/Review of Systems Vital Signs Vitals Vital Signs Date Time Temp Pulse Resp B/P Pulse Ox O2 Delivery O2 Flow Rate FiO2 09/28/16 20:00 85 17 97/71 95 Mechanical Ventilator 09/28/16 18:00 99.2 09/28/16 17:26 40 Intake and Output 09/27/16 09/27/16 09/28/16 14:59 22:59 06:59 Intake Total 635.05 ml 1453.84 ml 1235.68 ml Output Total 1175 ml 1280 ml 1530 ml Balance -539.95 ml 173.84 ml -294.32 ml Exam ENMT: mucosa pink and moist, nl external ears & nose, nl lips & teeth, nl nasal mucosa & septum Neck: non-tender, supple Respiratory: clear to auscultation, normal air movement Cardiovascular: nl pulses, regular rate and rhythm Gastrointestinal: nl liver, spleen, non-tender, soft Results Result Diagram: 09/28/16 0400 09/28/16 0400 YOUNG HAY MD Sep 28, 2016 21:19
[2016-09-29] VITALS (54 sets, daily range): BP systolic 87–118; BP diastolic 42–88; PULSE 75–117; RESP 16–22
[2016-09-29] MEDS: VANCOMYCIN 1.25 GM in SOD CHLORIDE 0.9% 250 ML IVPB SCH ×2 (02:44→15:26)
[2016-09-29] MEDS: MIDAZOLAM 50 MG in DEXTROSE 5% 40 ML IV SCH ×2 (02:46→15:42)
[2016-09-29] MEDS: PROPOFOL 100 ML IV SCH ×2 (02:50→13:02)
[2016-09-29 05:18] LABS: BASOPHILS % 0.5 % (0.0-2.0); EOSINOPHILS # 0.3 10^3/ul (0.0-0.5); EOSINOPHILS % 5.3 % (0.0-7.0); HEMATOCRIT 38.6 % (42.0-52.0); HEMOGLOBIN 12.6 g/dl (14.0-18.0); LYMPHOCYTES # 0.6 10^3/ul (0.8-2.9); LYMPHOCYTES % 8.7 % (15.0-51.0); MEAN CORPUSCULAR HEMOGLOBIN 29.2 pg (29.0-33.0); MEAN CORPUSCULAR HGB CONC 32.5 g/dl (32.0-37.0); MEAN CORPUSCULAR VOLUME 89.6 fl (82.0-101.0); MEAN PLATELET VOLUME 10.1 fl (7.4-10.4); MONOCYTE # 0.8 10^3/ul (0.3-0.9); MONOCYTES % 11.5 % (0.0-11.0); NEUTROPHIL # 4.8 10^3/ul (1.6-7.5); PLATELET COUNT 263 10^3/UL (140-440); RED CELL DISTRIBUTION WIDTH 14.5 % (11.5-14.5); UNCORRECTED WBC 6.6 10^3/ul (4.8-10.8); WHITE BLOOD COUNT 6.6 10^3/ul (4.8-10.8)
[2016-09-29 05:33] LABS: POTASSIUM 3.4 mmol/L (3.5-5.1)
[2016-09-29 05:36] LABS: CALCIUM 7.6 mg/dl (8.4-10.2); CREATININE 0.8 mg/dl (0.61-1.24)
[2016-09-29 05:41] LABS: CONDITION 1; LH ANALYZER COMMENTS 1; SUSPECT 1
[2016-09-29] MEDS: INSULIN ASPART [NOVOLOG] 3 ML PEN SC SCH ×3 (06:00→17:26)
[2016-09-29] MEDS: FUROSEMIDE 40 MG INJ IV SCH ×2 (06:05→17:20)
[2016-09-29] MEDS: ENOXAPARIN 100 MG/ML SYG SC SCH ×2 (06:06→21:07)
[2016-09-29] MEDS: METOCLOPRAMIDE 10 MG INJ IV SCH ×2 (08:26→21:01)
[2016-09-29] MEDS: FAMOTIDINE 20 MG INJ IV SCH ×2 (08:26→21:01)
[2016-09-29] MEDS: CEFEPIME 2GM/50 ML (PMX) 50 ML IVPB SCH (08:27)
--- NOTE | 2016-09-29 10:52 | CONS ---
Date/Time of Note Date/Time of Note DATE: 09/29/16 TIME: 10:50 Consult Date/Type/Reason Admit Date/Time Sep 15, 2016 at 16:54 Type of Consultation: pulmonary Subjective Remains intubated on mechanical ventilation Appears comfortable at present Tube feeding as tolerated Objective Vital Signs Date Time Temp Pulse Resp B/P Pulse Ox O2 Delivery O2 Flow Rate FiO2 09/29/16 10:30 94 17 94/65 Mechanical Ventilator 09/29/16 08:00 98.2 09/29/16 05:23 99 40 Intake and Output 09/28/16 09/28/16 09/29/16 15:00 23:00 07:00 Intake Total 969.24 ml 1774.03 ml 510 ml Output Total 800 ml 1745 ml 1410 ml Balance 169.24 ml 29.03 ml -900 ml PHYSICAL EXAMINATION GENERAL: Chronically ill gentleman intubated on mechanical ventilation VITAL SIGNS: see below. HEENT: Pupils equal, round, and reactive to light. CARDIAC: S1, S2, CHEST: Diminished air entry bilaterally. ABDOMEN: Mildly distended. Bowel sounds present abdomen mildly distended no guarding or rebound. EXTREMITIES: No cyanosis, clubbing edema +1 NEUROLOGIC: No focal deficits. Results/Medications Result Diagram: 09/29/16 0415 09/29/16 0415 Results 24 hrs Laboratory Tests Test 09/28/16 13:10 09/28/16 17:11 09/28/16 23:41 09/29/16 04:15 Bedside Glucose 95 109 98 Anion Gap 9 Basophils # 0.0 Basophils % 0.5 Blood Urea Nitrogen 19 Calcium Level 7.6 L Carbon Dioxide Level 39 H Chloride Level 98 Creatinine 0.80 Eosinophils # 0.3 Eosinophils % 5.3 Glucose Level 104 Hematocrit 38.6 L Hemoglobin 12.6 L Lymphocytes # 0.6 L Lymphocytes % 8.7 L Mean Corpuscular Hemoglobin 29.2 Mean Corpuscular Hemoglobin Concent 32.5 Mean Corpuscular Volume 89.6 Mean Platelet Volume 10.1 Monocytes # 0.8 Monocytes % 11.5 H Neutrophils # 4.8 Neutrophils % 74.0 Nucleated Red Blood Cells # 0.0 Nucleated Red Blood Cells % 0.0 Platelet Count 263 Potassium Level 3.4 L Red Blood Count 4.30 L Red Cell Distribution Width 14.5 Sodium Level 143 White Blood Count 6.6 Test 09/29/16 04:36 Bedside Glucose 107 Medications Current Medications Lorazepam (Ativan) 0.5 mg Q6H PRN IV ANXIETY Last administered on 09/27/16 10: 59; Admin Dose 0.5 MG; Start 09/15/16 at 18:00 Ondansetron HCl (Zofran Inj) 4 mg Q6H PRN IV NAUSEA AND/OR VOMITING; Start at 18:00 Morphine Sulfate (morphine) 2 mg Q4H PRN IV PAIN LEVEL 7-10 Last administered on 09/22/16 01:30; Admin Dose 2 MG; Start 09/15/16 at 18:00 Haloperidol 5 mg 5 mg Q6H PRN IM AGITATION Last administered on 09/19/16at 10: 40; Admin Dose 5 MG; Start 09/18/16 at 11:30 Cefepime HCl 50 ml @ 100 mls/hr Q12 IVPB Last administered on 09/29/16 08:27 ; Admin Dose 100 MLS/HR; Start 09/19/16 at 11:30 Propofol (Diprivan) 100 ml @ 3.105 mls/ hr Q12H IV Last administered on 02:50; Admin Dose 6.21 MLS/HR; Start 09/19/16 at 13:30 Famotidine 20 mg 20 mg BID IV Last administered on 09/29/16 08:26; Admin Dose 20 MG; Start 09/19/16 at 21:00 Fentanyl/Dextrose (D5W) 100 ml @ 2.5 mls/hr TITRATE IV Last administered on 13:13; Admin Dose 5 MLS/HR; Start 09/23/16 at 10:00 Miscellaneous Information 1 ea NOTE XX ; Start 09/23/16 at 13:30 Glucose (Glutose) 15 gm Q15M PRN PO DECREASED GLUCOSE; Start 09/23/16 at 13:30 Glucose (Glutose) 22.5 gm Q15M PRN PO DECREASED GLUCOSE; Start 09/23/16 at 13:30 Dextrose (D50w Syringe) 25 ml Q15M PRN IV DECREASED GLUCOSE Last administered on 09/23/16 13:24; Admin Dose 25 ML; Start 09/23/16 at 13:30 Dextrose (D50w Syringe) 50 ml Q15M PRN IV DECREASED GLUCOSE; Start 09/23/16 at 13:30 Glucagon (Glucagen) 1 mg Q15M PRN IM DECREASED GLUCOSE; Start 09/23/16 at 13:30 Glucose 15 gm 15 gm Q15M PRN BUCCAL DECREASED GLUCOSE; Start 09/23/16 at 13:30 Dextrose/Sodium Chloride (D5-NS) 1,000 ml @ 50 mls/hr Q20H IV Last administered on 09/27/16 20:42; Admin Dose 50 MLS/HR; Start 09/23/16 at 16:30 Metoclopramide HCl (Reglan) 10 mg Q12 IV Last administered on 09/29/16 08:26; Admin Dose 10 MG; Start 09/24/16 at 11:30 Enoxaparin Sodium 100 mg 100 mg Q12 SC Last administered on 09/28/16 22:16; Admin Dose 100 MG; Start 09/25/16 at 11:00 Midazolam HCl/ Dextrose (Versed/D5W) 50 ml @ 2 mls/hr TITRATE IV Last administered on 09/29/16 02:46; Admin Dose 2 MLS/HR; Start 09/25/16 at 12:00 Insulin Aspart NOVOLOG *MODERATE* ALGORI... Q6 SC ; Start 09/25/16 at 18:00 Vancomycin HCl/ Sodium Chloride (Vancocin/NS) 250 ml @ 83.333 mls/ hr Q12H IVPB Last administered on 09/29/16 02:44; Admin Dose 83.333 MLS/HR; Start 09/28 at 15:00 Acetaminophen (Tylenol Liquid) 650 mg Q4H PRN NGT PAIN AND OR ELEVATED TEMP Last administered on 09/28/16 15:16; Admin Dose 650 MG; Start 09/28/16 at 13:30 Assessment/Plan Chief Complaint/Hosp Course IMPRESSION: 1. Hypoxemic respiratory failure/vent dependence 2. Right sided pneumonia with complicated parapneumonic effusion s/p thoracentesis 3. Acute pulmonary emboli 4. Encephalopathy, likely toxic metabolic. 5. Transaminitis 6. FEN- Increased Na+ PLAN: 1. Repeat thoracentesis today. Continues to reaccumulate we will need repeat thoracentesis 2. check cocci serologies/TB quant gold 3. continue lovenox 4. Continue Free H20 5 d/c D5NS 6. Check LFT's 7. Am CXR/ABG Patient has no immediate next of kin to sign consent for thoracentesis. This procedure is urgent given his respiratory failure and recent sepsis. Recommend proceeding with thoracentesis in the absence of consent from any next of kin. Problems: AMANDA STONE MD, [facility] Sep 29, 2016 10:52
[2016-09-29] MEDS: FENTAnyl 1,000 MCG in DEXTROSE 5% 80 ML IV SCH (11:15)
--- NOTE | 2016-09-29 11:15 | PN ---
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 Pulmonary embolism. 2. Pneumonia. 3 Pleural effusion RECOMMENDATIONS: We will monitor the pleural effusion. Thorocentesis prn Anticoagulation . . Discussed with the nursing staff. Problems: Subjective 24 Hr Interval Summary Constitutional: improved Pain Control: mild Exam/Review of Systems Vital Signs Vitals Vital Signs Date Time Temp Pulse Resp B/P Pulse Ox O2 Delivery O2 Flow Rate FiO2 09/29/16 11:00 90 16 90/58 97 Mechanical Ventilator 09/29/16 08:00 98.2 09/29/16 05:23 40 Intake and Output 09/28/16 09/28/16 09/29/16 15:00 23:00 07:00 Intake Total 969.24 ml 1774.03 ml 510 ml Output Total 800 ml 1745 ml 1410 ml Balance 169.24 ml 29.03 ml -900 ml Exam Neck: non-tender, supple Respiratory: clear to auscultation, normal air movement Cardiovascular: nl pulses, regular rate and rhythm Gastrointestinal: nl liver, spleen, non-tender, soft Results Result Diagram: 09/29/16 0415 09/29/16 0415 YOUNG HAY MD Sep 29, 2016 11:15
[2016-09-29] MEDS: ACETAMINOPHEN 650MG/20.3ML CUP NGT PRN (12:10)
[2016-09-29] MEDS: DEXTROSE 5%-0.9% NACL 1,000 ML IV SCH ×2 (12:30→15:30)
--- NOTE | 2016-09-29 14:28 | PN ---
Date/Time of Note Date/Time of Note DATE: 09/29/16 TIME: 14:25 Assessment/Plan VTE Prophylaxis VTE Prophylaxis Intervention: LMWH Lines/Catheters IV [facility]from [facility] Central Line Central line still needed: Yes Urinary Cath still in place: Yes Reason Cath still needed: urinary retention Assessment/Plan Chief Complaint/Hosp Course ASSESSMENT AND PLAN: 1. Acute respiratory failure. Dr. Aquino is following the patient from pulmonology consultation. Continue bronchodilators and vent support. 2. Right-sided pneumonia with complicated parapneumonic effusion, status post thoracentesis. Continue patient on vancomycin and cefepime. Dr. Hernandez is asked to see patient from an Infectious Disease standpoint. 3. Acute pulmonary emboli. Continue patient on Lovenox. 4. 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 Continue patient on Lasix. 5. Encephalopathy, likely toxic metabolic. Continue to monitor. Continue Pepcid for peptic ulcer disease prophylaxis. Further recommendations based on clinical course. Plan of care discussed with Dr. Patel. Problems: Subjective 24 Hr Interval Summary Free Text/Dictation Patient continues to be on sedation, intubated on vent support, continues to spike fevers, pending thoracentesis. Exam/Review of Systems Vital Signs Vitals Vital Signs Date Time Temp Pulse Resp B/P Pulse Ox O2 Delivery O2 Flow Rate FiO2 09/29/16 14:00 85 16 89/57 95 Mechanical Ventilator 09/29/16 13:00 99.2 09/29/16 11:51 40 Intake and Output 09/28/16 09/28/16 09/29/16 15:00 23:00 07:00 Intake Total 969.24 ml 1889.24 ml 992.2054 ml Output Total 800 ml 1745 ml 1410 ml Balance 169.24 ml 144.24 ml -417.7946 ml Exam GENERAL: Well-developed, well-nourished male currently sedated, orally intubated on vent. NECK: Supple. No mass, no thyromegaly. LUNGS: Diminished with scattered rhonchi bilaterally. HEART: Normal S1, S2. No murmurs, gallops, clicks, rubs noted. ABDOMEN: Round, soft, nondistended, nontender. Bowel sounds present. EXTREMITIES: No edema, clubbing, cyanosis. Pulses equal bilaterally 2+. SKIN: There is no rash. NEUROLOGIC: The patient is sedated. Results Result Diagram: 09/29/16 0415 09/29/16 0415 Results 24 hrs Laboratory Tests Test 09/28/16 17:11 09/28/16 23:41 09/29/16 04:15 09/29/16 04:36 Bedside Glucose 109 98 107 Anion Gap 9 Basophils # 0.0 Basophils % 0.5 Blood Urea Nitrogen 19 Calcium Level 7.6 L Carbon Dioxide Level 39 H Chloride Level 98 Creatinine 0.80 Eosinophils # 0.3 Eosinophils % 5.3 Glucose Level 104 Hematocrit 38.6 L Hemoglobin 12.6 L Lymphocytes # 0.6 L Lymphocytes % 8.7 L Mean Corpuscular Hemoglobin 29.2 Mean Corpuscular Hemoglobin Concent 32.5 Mean Corpuscular Volume 89.6 Mean Platelet Volume 10.1 Monocytes # 0.8 Monocytes % 11.5 H Neutrophils # 4.8 Neutrophils % 74.0 Nucleated Red Blood Cells # 0.0 Nucleated Red Blood Cells % 0.0 Platelet Count 263 Potassium Level 3.4 L Red Blood Count 4.30 L Red Cell Distribution Width 14.5 Sodium Level 143 White Blood Count 6.6 Test 09/29/16 11:22 Bedside Glucose 94 Medications Medications Current Medications Lorazepam (Ativan) 0.5 mg Q6H PRN IV ANXIETY Last administered on 09/27/16 10: 59; Admin Dose 0.5 MG; Start 09/15/16 at 18:00 Ondansetron HCl (Zofran Inj) 4 mg Q6H PRN IV NAUSEA AND/OR VOMITING; Start at 18:00 Morphine Sulfate (morphine) 2 mg Q4H PRN IV PAIN LEVEL 7-10 Last administered on 09/22/16 01:30; Admin Dose 2 MG; Start 09/15/16 at 18:00 Haloperidol 5 mg 5 mg Q6H PRN IM AGITATION Last administered on 09/19/16at 10: 40; Admin Dose 5 MG; Start 09/18/16 at 11:30 Cefepime HCl 50 ml @ 100 mls/hr Q12 IVPB Last administered on 09/29/16 08:27 ; Admin Dose 100 MLS/HR; Start 09/19/16 at 11:30 Propofol (Diprivan) 100 ml @ 3.105 mls/ hr Q12H IV Last administered on 13:02; Admin Dose 9.818 MLS/HR; Start 09/19/16 at 13:30 Famotidine 20 mg 20 mg BID IV Last administered on 09/29/16 08:26; Admin Dose 20 MG; Start 09/19/16 at 21:00 Fentanyl/Dextrose (D5W) 100 ml @ 2.5 mls/hr TITRATE IV Last administered on 11:15; Admin Dose 5 MLS/HR; Start 09/23/16 at 10:00 Miscellaneous Information 1 ea NOTE XX ; Start 09/23/16 at 13:30 Glucose (Glutose) 15 gm Q15M PRN PO DECREASED GLUCOSE; Start 09/23/16 at 13:30 Glucose (Glutose) 22.5 gm Q15M PRN PO DECREASED GLUCOSE; Start 09/23/16 at 13:30 Dextrose (D50w Syringe) 25 ml Q15M PRN IV DECREASED GLUCOSE Last administered on 09/23/16 13:24; Admin Dose 25 ML; Start 09/23/16 at 13:30 Dextrose (D50w Syringe) 50 ml Q15M PRN IV DECREASED GLUCOSE; Start 09/23/16 at 13:30 Glucagon (Glucagen) 1 mg Q15M PRN IM DECREASED GLUCOSE; Start 09/23/16 at 13:30 Glucose 15 gm 15 gm Q15M PRN BUCCAL DECREASED GLUCOSE; Start 09/23/16 at 13:30 Dextrose/Sodium Chloride (D5-NS) 1,000 ml @ 50 mls/hr Q20H IV Last administered on 09/27/16 20:42; Admin Dose 50 MLS/HR; Start 09/23/16 at 16:30 Metoclopramide HCl (Reglan) 10 mg Q12 IV Last administered on 09/29/16 08:26; Admin Dose 10 MG; Start 09/24/16 at 11:30 Enoxaparin Sodium 100 mg 100 mg Q12 SC Last administered on 09/28/16 22:16; Admin Dose 100 MG; Start 09/25/16 at 11:00 Midazolam HCl/ Dextrose (Versed/D5W) 50 ml @ 2 mls/hr TITRATE IV Last administered on 09/29/16 02:46; Admin Dose 2 MLS/HR; Start 09/25/16 at 12:00 Insulin Aspart NOVOLOG *MODERATE* ALGORI... Q6 SC ; Start 09/25/16 at 18:00 Vancomycin HCl/ Sodium Chloride (Vancocin/NS) 250 ml @ 83.333 mls/ hr Q12H IVPB Last administered on 09/29/16 02:44; Admin Dose 83.333 MLS/HR; Start 09/28 at 15:00 Acetaminophen (Tylenol Liquid) 650 mg Q4H PRN NGT PAIN AND OR ELEVATED TEMP Last administered on 09/29/16 12:10; Admin Dose 650 MG; Start 09/28/16 at 13:30 JAN ZHANG Sep 29, 2016 14:28
[2016-09-29] MEDS ORDERED: POTASSIUM CHLORIDE 20 MEQ POWDER FOR ORAL SOLN GTB ONE (14:30)
--- NOTE | 2016-09-29 14:53 | CONS ---
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 On Lovenox secondary to pulmonary emboli area and given severe cardiomyopathy, will start HILDA inhibitor for afterload reduction as blood pressure and renal function permits, and if blood pressure remains stable, would then initiate beta beatriz. Consultation Date/Type/Reason Admit Date/Time Sep 15, 2016 at 16:54 Type of Consultation: cv Reason for Consultation Cardiomyopathy Hx of Present Illness This is a 40-year-old male who presented with shortness of breath and found to have pulmonary emboli. Patient left AGAINST MEDICAL ADVICE and returned back secondary to worsening shortness of breath. Patient was intubated and on Lovenox for anticoagulation as well as antibiotics for possible pneumonia. Patient also on diuretics secondary to pleural effusion. Echocardiogram was performed which demonstrated of severe car to myopathy and for this reason cardiology consultation was requested. History was obtained from the chart, medical records and nursing staff given patient is currently sedated and intubated. Unable to be performed at the current time given patient sedated and intubated Genitourinary: no complaints Musculoskeletal: no complaints Skin: no complaints Neurologic: no complaints Past Medical History Medical History: no pertinent history Past Surgical History Past Surgical Hx: no surgical history Social History Alcohol Use: occasionally Smoking Status: Smoker,current status unk Exam/Review of Systems Vital Signs Vitals Vital Signs Date Time Temp Pulse Resp B/P Pulse Ox O2 Delivery O2 Flow Rate FiO2 09/29/16 14:30 82 16 103/65 96 09/29/16 14:00 Mechanical Ventilator 09/29/16 13:00 99.2 09/29/16 11:51 40 Intake and Output 09/28/16 09/28/16 09/29/16 15:00 23:00 07:00 Intake Total 969.24 ml 1889.24 ml 992.2054 ml Output Total 800 ml 1745 ml 1410 ml Balance 169.24 ml 144.24 ml -417.7946 ml Exam sedated and intubated, nad Head: normocephalic ENMT: intubated Respiratory: other (course bs bilat, decrease at R base) Cardiovascular: other (s1s2), regular rate and rhythm Gastrointestinal: bowel sounds, non-tender, soft Extremities: edema Results Result Diagram: 09/29/16 0415 09/29/16 0415 Results 24 hrs Laboratory Tests Test 09/28/16 17:11 09/28/16 23:41 09/29/16 04:15 09/29/16 04:36 Bedside Glucose 109 98 107 Anion Gap 9 Basophils # 0.0 Basophils % 0.5 Blood Urea Nitrogen 19 Calcium Level 7.6 L Carbon Dioxide Level 39 H Chloride Level 98 Creatinine 0.80 Eosinophils # 0.3 Eosinophils % 5.3 Glucose Level 104 Hematocrit 38.6 L Hemoglobin 12.6 L Lymphocytes # 0.6 L Lymphocytes % 8.7 L Mean Corpuscular Hemoglobin 29.2 Mean Corpuscular Hemoglobin Concent 32.5 Mean Corpuscular Volume 89.6 Mean Platelet Volume 10.1 Monocytes # 0.8 Monocytes % 11.5 H Neutrophils # 4.8 Neutrophils % 74.0 Nucleated Red Blood Cells # 0.0 Nucleated Red Blood Cells % 0.0 Platelet Count 263 Potassium Level 3.4 L Red Blood Count 4.30 L Red Cell Distribution Width 14.5 Sodium Level 143 White Blood Count 6.6 Test 09/29/16 11:22 Bedside Glucose 94 Medications Medications Current Medications Lorazepam (Ativan) 0.5 mg Q6H PRN IV ANXIETY Last administered on 09/27/16 10: 59; Admin Dose 0.5 MG; Start 09/15/16 at 18:00 Ondansetron HCl (Zofran Inj) 4 mg Q6H PRN IV NAUSEA AND/OR VOMITING; Start at 18:00 Morphine Sulfate (morphine) 2 mg Q4H PRN IV PAIN LEVEL 7-10 Last administered on 09/22/16 01:30; Admin Dose 2 MG; Start 09/15/16 at 18:00 Haloperidol 5 mg 5 mg Q6H PRN IM AGITATION Last administered on 09/19/16at 10: 40; Admin Dose 5 MG; Start 09/18/16 at 11:30 Cefepime HCl 50 ml @ 100 mls/hr Q12 IVPB Last administered on 09/29/16 08:27 ; Admin Dose 100 MLS/HR; Start 09/19/16 at 11:30 Propofol (Diprivan) 100 ml @ 3.105 mls/ hr Q12H IV Last administered on 13:02; Admin Dose 9.818 MLS/HR; Start 09/19/16 at 13:30 Famotidine 20 mg 20 mg BID IV Last administered on 09/29/16 08:26; Admin Dose 20 MG; Start 09/19/16 at 21:00 Fentanyl/Dextrose (D5W) 100 ml @ 2.5 mls/hr TITRATE IV Last administered on 11:15; Admin Dose 5 MLS/HR; Start 09/23/16 at 10:00 Miscellaneous Information 1 ea NOTE XX ; Start 09/23/16 at 13:30 Glucose (Glutose) 15 gm Q15M PRN PO DECREASED GLUCOSE; Start 09/23/16 at 13:30 Glucose (Glutose) 22.5 gm Q15M PRN PO DECREASED GLUCOSE; Start 09/23/16 at 13:30 Dextrose (D50w Syringe) 25 ml Q15M PRN IV DECREASED GLUCOSE Last administered on 09/23/16 13:24; Admin Dose 25 ML; Start 09/23/16 at 13:30 Dextrose (D50w Syringe) 50 ml Q15M PRN IV DECREASED GLUCOSE; Start 09/23/16 at 13:30 Glucagon (Glucagen) 1 mg Q15M PRN IM DECREASED GLUCOSE; Start 09/23/16 at 13:30 Glucose 15 gm 15 gm Q15M PRN BUCCAL DECREASED GLUCOSE; Start 09/23/16 at 13:30 Dextrose/Sodium Chloride (D5-NS) 1,000 ml @ 50 mls/hr Q20H IV Last administered on 09/27/16 20:42; Admin Dose 50 MLS/HR; Start 09/23/16 at 16:30 Metoclopramide HCl (Reglan) 10 mg Q12 IV Last administered on 09/29/16 08:26; Admin Dose 10 MG; Start 09/24/16 at 11:30 Enoxaparin Sodium 100 mg 100 mg Q12 SC Last administered on 09/28/16 22:16; Admin Dose 100 MG; Start 09/25/16 at 11:00 Midazolam HCl/ Dextrose (Versed/D5W) 50 ml @ 2 mls/hr TITRATE IV Last administered on 09/29/16 02:46; Admin Dose 2 MLS/HR; Start 09/25/16 at 12:00 Insulin Aspart NOVOLOG *MODERATE* ALGORI... Q6 SC ; Start 09/25/16 at 18:00 Vancomycin HCl/ Sodium Chloride (Vancocin/NS) 250 ml @ 83.333 mls/ hr Q12H IVPB Last administered on 09/29/16 02:44; Admin Dose 83.333 MLS/HR; Start 09/28 at 15:00 Acetaminophen (Tylenol Liquid) 650 mg Q4H PRN NGT PAIN AND OR ELEVATED TEMP Last administered on 09/29/16 12:10; Admin Dose 650 MG; Start 09/28/16 at 13:30 Procedures Procedures ECG done on 09/15/2016 with sinus tachycardia at 112 bpm, QRS 98 ms, nonspecific STT wave abnormalities Nikolay Luna DO Sep 29, 2016 14:53
[2016-09-29 15:47] LABS: TB-NIL 0.14 IU/mL
--- NOTE | 2016-09-29 16:06 | CONS ---
Date/Time of Note Date/Time of Note DATE: 09/29/16 TIME: 16:00 Assessment/Plan Assessment/Plan Chief Complaint/Hosp Course assessment/impression - PNA with parapneumonic effusion. Could be started as CAP, other considerations include aspiration PNA - recurrent pleural effusion. s/p diagnostic thoracentesis on 09/22/2016. It showed glu=74 pro <2, COQ=3429. No malignancy on cytology. 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 Acute hepatitis panel negative recommendations - pending: cocci serology - ordered: HIV screen, AFB smear and culture x3, sputum for aerobic and anaerobic culture - I recommend repeat thoracentesis and send it for more extensive microbiological tests, e.g. cultures for aerobic, anaerobic, AFB, modified AFB, fungal, AFB PCR - I recommend continuing IV vancomycin, change cefepime to pip/tazo to enhance coverage for anaerobes. - Place Pt on airborne precautions until AFB is ruled out I discussed the management with Pt's RN, charge nurse and Dr. Aquino total time I took to care for this Pt today was from 1515 to 1550 Problems: Consultation Date/Type/Reason Admit Date/Time Sep 15, 2016 at 16:54 Date of Consultation: Sep 29, 2016 Type of Consultation: ID Reason for Consultation recurrent pleural effusion Referring Provider: JAN GOODWIN Hx of Present Illness This is a 40 yo male who was originally presented at OSH due to dyspnea. Pt was found out to have b/l PE and infiltrate. Tox screen was reportedly positive for meth and benzo. Pt received anticoagulation and empiric antibiotics, but subsequently left AMA. Later Pt presented here due to progressive dyspnea. This time Pt was intubated due to hypoxic respiratory failure. Pt has been receiving IV vancomycin and cefepime. Pt was found out to have R pleural effusion and had thoracentesis on 09/22/2016. It showed glu=74 pro <2, AWM=6156. No malignancy on cytology. Its culture has been negative. Pt appeared to have re-accumulated R sided pleural effusion. TIMUR Goodwin requested ID consultation on this Pt. Subjective hx not possible: pt non-verbal, pt critical, pt critical status Genitourinary: no complaints Musculoskeletal: no complaints Skin: no complaints Neurologic: no complaints Past Medical History Medical History: other (PE) Past Surgical History Past Surgical Hx: no surgical history Social History Alcohol Use: occasionally Smoking Status: Smoker,current status unk Drug Use: other (benzo, meth) Exam/Review of Systems Vital Signs Vitals Vital Signs Date Time Temp Pulse Resp B/P Pulse Ox O2 Delivery O2 Flow Rate FiO2 09/29/16 15:30 78 16 102/67 95 09/29/16 15:00 Mechanical Ventilator 09/29/16 13:40 40 09/29/16 13:00 99.2 Intake and Output 09/28/16 09/28/16 09/29/16 15:00 23:00 07:00 Intake Total 969.24 ml 1889.24 ml 992.2054 ml Output Total 800 ml 1745 ml 1410 ml Balance 169.24 ml 144.24 ml -417.7946 ml Exam Constitutional: non-verbal Head: atraumatic, normocephalic Eyes: nl conjunctiva, nl lids ENMT: intubated, nl external ears & nose Respiratory: diminished breath sounds Cardiovascular: nl pulses, regular rate and rhythm Gastrointestinal: non-tender, soft Genitourinary - Male: nl penis, nl scrotum, other (FC) Extremities: No edema Neurological: unresponsive Results Result Diagram: 09/29/1641409/29/16414 Results 24 hrs Laboratory Tests Test 09/28/16 17:11 09/28/16 23:41 09/29/16 04:15 09/29/16 04:36 Bedside Glucose 109 98 107 Anion Gap 9 Basophils # 0.0 Basophils % 0.5 Blood Urea Nitrogen 19 Calcium Level 7.6 L Carbon Dioxide Level 39 H Chloride Level 98 Creatinine 0.80 Eosinophils # 0.3 Eosinophils % 5.3 Glucose Level 104 Hematocrit 38.6 L Hemoglobin 12.6 L Lymphocytes # 0.6 L Lymphocytes % 8.7 L Mean Corpuscular Hemoglobin 29.2 Mean Corpuscular Hemoglobin Concent 32.5 Mean Corpuscular Volume 89.6 Mean Platelet Volume 10.1 Monocytes # 0.8 Monocytes % 11.5 H Neutrophils # 4.8 Neutrophils % 74.0 Nucleated Red Blood Cells # 0.0 Nucleated Red Blood Cells % 0.0 Platelet Count 263 Potassium Level 3.4 L Red Blood Count 4.30 L Red Cell Distribution Width 14.5 Sodium Level 143 White Blood Count 6.6 Test 09/29/16 11:22 Bedside Glucose 94 Medications Medications Current Medications Lorazepam (Ativan) 0.5 mg Q6H PRN IV ANXIETY Last administered on 09/27/16 10: 59; Admin Dose 0.5 MG; Start 09/15/16 at 18:00 Ondansetron HCl (Zofran Inj) 4 mg Q6H PRN IV NAUSEA AND/OR VOMITING; Start at 18:00 Morphine Sulfate (morphine) 2 mg Q4H PRN IV PAIN LEVEL 7-10 Last administered on 09/22/16 01:30; Admin Dose 2 MG; Start 09/15/16 at 18:00 Haloperidol 5 mg 5 mg Q6H PRN IM AGITATION Last administered on 09/19/16at 10: 40; Admin Dose 5 MG; Start 09/18/16 at 11:30 Cefepime HCl 50 ml @ 100 mls/hr Q12 IVPB Last administered on 09/29/16 08:27 ; Admin Dose 100 MLS/HR; Start 09/19/16 at 11:30 Propofol (Diprivan) 100 ml @ 3.105 mls/ hr Q12H IV Last administered on 13:02; Admin Dose 9.818 MLS/HR; Start 09/19/16 at 13:30 Famotidine 20 mg 20 mg BID IV Last administered on 09/29/16 08:26; Admin Dose 20 MG; Start 09/19/16 at 21:00 Fentanyl/Dextrose (D5W) 100 ml @ 2.5 mls/hr TITRATE IV Last administered on 11:15; Admin Dose 5 MLS/HR; Start 09/23/16 at 10:00 Miscellaneous Information 1 ea NOTE XX ; Start 09/23/16 at 13:30 Glucose (Glutose) 15 gm Q15M PRN PO DECREASED GLUCOSE; Start 09/23/16 at 13:30 Glucose (Glutose) 22.5 gm Q15M PRN PO DECREASED GLUCOSE; Start 09/23/16 at 13:30 Dextrose (D50w Syringe) 25 ml Q15M PRN IV DECREASED GLUCOSE Last administered on 09/23/16 13:24; Admin Dose 25 ML; Start 09/23/16 at 13:30 Dextrose (D50w Syringe) 50 ml Q15M PRN IV DECREASED GLUCOSE; Start 09/23/16 at 13:30 Glucagon (Glucagen) 1 mg Q15M PRN IM DECREASED GLUCOSE; Start 09/23/16 at 13:30 Glucose 15 gm 15 gm Q15M PRN BUCCAL DECREASED GLUCOSE; Start 09/23/16 at 13:30 Dextrose/Sodium Chloride (D5-NS) 1,000 ml @ 50 mls/hr Q20H IV Last administered on 09/29/16 15:30; Admin Dose 50 MLS/HR; Start 09/23/16 at 16:30 Metoclopramide HCl (Reglan) 10 mg Q12 IV Last administered on 09/29/16 08:26; Admin Dose 10 MG; Start 09/24/16 at 11:30 Enoxaparin Sodium 100 mg 100 mg Q12 SC Last administered on 09/28/16 22:16; Admin Dose 100 MG; Start 09/25/16 at 11:00 Midazolam HCl/ Dextrose (Versed/D5W) 50 ml @ 2 mls/hr TITRATE IV Last administered on 09/29/16 15:42; Admin Dose 3 MLS/HR; Start 09/25/16 at 12:00 Insulin Aspart NOVOLOG *MODERATE* ALGORI... Q6 SC ; Start 09/25/16 at 18:00 Vancomycin HCl/ Sodium Chloride (Vancocin/NS) 250 ml @ 83.333 mls/ hr Q12H IVPB Last administered on 09/29/16 15:26; Admin Dose 83.333 MLS/HR; Start 09/28 at 15:00 Acetaminophen (Tylenol Liquid) 650 mg Q4H PRN NGT PAIN AND OR ELEVATED TEMP Last administered on 09/29/16 12:10; Admin Dose 650 MG; Start 09/28/16 at 13:30 Lisinopril (Zestril) 2.5 mg BID GTB ; Start 09/29/16 at 21:00 Miscellaneous Information (*Rx Drug Level Order Reminder*) VANCO TROUGH @ 1, 400 ON... ONCE ONCE XX ; Start 09/30/16 at 14:00; Stop 09/30/16 at 14:01 MIGUEL ERNST M.D. Sep 29, 2016 16:06
[2016-09-29] MEDS: PIPER-TAZO 3.375 GM IV (PMX) 100 ML IVPB SCH (17:18)
[2016-09-29] MEDS: LISINOPRIL 5 MG TAB GTB SCH (21:01)
[2016-09-30] VITALS (51 sets, daily range): BP systolic 83–120; BP diastolic 56–80; PULSE 66–123; RESP 16–19
[2016-09-30] MEDS: PROPOFOL 100 ML IV SCH ×3 (00:29→16:36)
[2016-09-30] MEDS: PIPER-TAZO 3.375 GM IV (PMX) 100 ML IVPB SCH ×5 (00:31→23:34)
[2016-09-30] MEDS: ACETAMINOPHEN 650MG/20.3ML CUP NGT PRN (04:01)
[2016-09-30] MEDS: VANCOMYCIN 1.25 GM in SOD CHLORIDE 0.9% 250 ML IVPB SCH ×2 (04:01→15:25)
[2016-09-30 05:14] LABS: BASOPHILS % 0.3 % (0.0-2.0); EOSINOPHILS # 0.2 10^3/ul (0.0-0.5); EOSINOPHILS % 3.4 % (0.0-7.0); HEMATOCRIT 37.1 % (42.0-52.0); HEMOGLOBIN 11.9 g/dl (14.0-18.0); LYMPHOCYTES # 0.7 10^3/ul (0.8-2.9); LYMPHOCYTES % 11.7 % (15.0-51.0); MEAN CORPUSCULAR HGB CONC 32.2 g/dl (32.0-37.0); MEAN CORPUSCULAR VOLUME 89.9 fl (82.0-101.0); MEAN PLATELET VOLUME 10.2 fl (7.4-10.4); MONOCYTE # 0.8 10^3/ul (0.3-0.9); MONOCYTES % 11.7 % (0.0-11.0); NEUTROPHIL # 4.7 10^3/ul (1.6-7.5); NEUTROPHILS % 72.9 % (39.0-77.0); PLATELET COUNT 255 10^3/UL (140-440); RED BLOOD COUNT 4.13 10^6/ul (4.70-6.10); RED CELL DISTRIBUTION WIDTH 14.8 % (11.5-14.5); UNCORRECTED WBC 6.4 10^3/ul (4.8-10.8); WHITE BLOOD COUNT 6.4 10^3/ul (4.8-10.8)
[2016-09-30 05:23] LABS: CONDITION 1; LH ANALYZER COMMENTS 1; POTASSIUM 3.6 mmol/L (3.5-5.1); SUSPECT 1
[2016-09-30] MEDS: FUROSEMIDE 40 MG INJ IV SCH ×2 (05:24→18:00)
[2016-09-30 05:26] LABS: CREATININE 0.9 mg/dl (0.61-1.24)
[2016-09-30] MEDS: INSULIN ASPART [NOVOLOG] 3 ML PEN SC SCH ×5 (05:26→23:44)
[2016-09-30 05:27] LABS: CALCIUM 7.5 mg/dl (8.4-10.2); MAGNESIUM 1.6 mg/dl (1.7-2.5); PHOSPHORUS 3.2 mg/dl (2.5-4.9)
[2016-09-30] MEDS: FENTAnyl 1,000 MCG in DEXTROSE 5% 80 ML IV SCH (06:48)
--- NOTE | 2016-09-30 08:19 | RADRPT ---
PROCEDURE: XR, Chest. CLINICAL INDICATION: Follow up for respiratory distress. TECHNIQUE: AP chest. COMPARISON: Chest, 09/28/2016. FINDINGS: The heart remains moderately enlarged. There is large right pleural effusion with compressive atele ctasis of the right lower lobe, unchanged. There is mild left pleural effusion with compressive ate lectasis of the left lower lobe, unchanged. There is no acute infiltrate in the lungs. ET tube, NG tube and left central venous line remain in good position. IMPRESSION: 1. Moderate cardiomegaly, unchanged. 2. Large right pleural effusion with compressive atelectasis of the right lower lobe, unchanged. 3. Mild left pleural effusion with compressive atelectasis of the left lower lobe, unchanged. RPTAT: GG .Be Mcgowan MD, Date Time Electronically viewed and signed by .Be Mcgowan MD, MD on 09/30/2016 08:18 .Y/
--- NOTE | 2016-09-30 09:09 | CONS ---
Date/Time of Note Date/Time of Note DATE: 09/30/16 TIME: 09:07 Assessment/Plan Assessment/Plan Chief Complaint/Hosp Course assessment/impression - PNA with parapneumonic effusion. Could be started as CAP, other considerations include aspiration PNA - recurrent pleural effusion. s/p diagnostic thoracentesis on 09/22/2016. It showed glu=74 pro <2, UTS=3615. No malignancy on cytology. 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 Acute hepatitis panel negative recommendations - pending: cocci serology, AFB smear and culture x3, sputum for aerobic and anaerobic culture - I ordered 4th AFB smear and culture for early tomorrow morning because my 2nd AFB specimen that I ordered for 5:00AM this morning has not been collected. - I ordered labs for repeat thoracentesis that is scheduled today: cultures for aerobic, anaerobic, AFB, modified AFB, fungal, cytology, cell count and diff, LDF, protein - I recommend continuing IV vancomycin (09/19/2016-) and pip/tazo (09/29/2016-) to cover pneumonia with parapneumonic effusion. - Keep Pt on airborne precautions until AFB is ruled out I discussed the management with Pt's RN and Dr. Aquino total time I took to care for this Pt today was from 0830 to 0905 Problems: Consultation Date/Type/Reason Admit Date/Time Sep 15, 2016 at 16:54 Initial Consult Date 09/29/16 Type of Consultation: ID Referring Provider: JAN ZHANG 24 HR Interval Summary Subjective hx not possible: pt non-verbal, pt critical, pt critical status Exam/Review of Systems Vital Signs Vitals Vital Signs Date Time Temp Pulse Resp B/P Pulse Ox O2 Delivery O2 Flow Rate FiO2 09/30/16 08:00 97.9 66 16 98/64 96 Mechanical Ventilator 09/30/16 05:35 40 Intake and Output 09/29/16 09/29/16 09/30/16 15:00 23:00 07:00 Intake Total 975.383 ml 1351.744 ml 269 ml Output Total 465 ml 1020 ml 290 ml Balance 510.383 ml 331.744 ml -21 ml Exam Constitutional: non-verbal Psych: confusion Head: atraumatic, normocephalic Eyes: nl conjunctiva, nl lids ENMT: intubated, nl external ears & nose Respiratory: crackles/rales Cardiovascular: nl pulses, regular rate and rhythm Gastrointestinal: non-tender, soft Genitourinary - Male: other (FC) Musculoskeletal: No swelling Extremities: No edema Neurological: unresponsive Results Result Diagram: 09/30/1641909/30/16 0420 Results 24 hrs Laboratory Tests Test 09/29/16 11:22 09/29/16 17:23 09/30/16 00:27 09/30/16 04:20 Bedside Glucose 94 113 89 Anion Gap 10 Basophils # 0.0 Basophils % 0.3 Blood Morphology Comment Blood Urea Nitrogen 20 Calcium Level 7.5 L Carbon Dioxide Level 38 H Chloride Level 96 L Creatinine 0.90 Eosinophils # 0.2 Eosinophils % 3.4 Glucose Level 107 HIV (1&2) Antibody NEGATIVE Hematocrit 37.1 L Hemoglobin 11.9 L Lymphocytes # 0.7 L Lymphocytes % 11.7 L Magnesium Level 1.6 L Mean Corpuscular Hemoglobin 29.0 Mean Corpuscular Hemoglobin Concent 32.2 Mean Corpuscular Volume 89.9 Mean Platelet Volume 10.2 Monocytes # 0.8 Monocytes % 11.7 H Neutrophils # 4.7 Neutrophils % 72.9 Nucleated Red Blood Cells # 0.0 Nucleated Red Blood Cells % 0.0 Phosphorus Level 3.2 Platelet Count 255 Potassium Level 3.6 Red Blood Count 4.13 L Red Cell Distribution Width 14.8 H Sodium Level 140 White Blood Count 6.4 Test 09/30/16 05:25 Bedside Glucose 101 Medications Medications Current Medications Lorazepam (Ativan) 0.5 mg Q6H PRN IV ANXIETY Last administered on 09/27/16 10: 59; Admin Dose 0.5 MG; Start 09/15/16 at 18:00 Ondansetron HCl (Zofran Inj) 4 mg Q6H PRN IV NAUSEA AND/OR VOMITING; Start at 18:00 Morphine Sulfate (morphine) 2 mg Q4H PRN IV PAIN LEVEL 7-10 Last administered on 09/22/16 01:30; Admin Dose 2 MG; Start 09/15/16 at 18:00 Haloperidol 5 mg 5 mg Q6H PRN IM AGITATION Last administered on 09/19/16at 10: 40; Admin Dose 5 MG; Start 09/18/16 at 11:30 Propofol (Diprivan) 100 ml @ 3.105 mls/ hr Q12H IV Last administered on 06:34; Admin Dose 9.936 MLS/HR; Start 09/19/16 at 13:30 Famotidine 20 mg 20 mg BID IV Last administered on 09/29/16 21:01; Admin Dose 20 MG; Start 09/19/16 at 21:00 Fentanyl/Dextrose (D5W) 100 ml @ 2.5 mls/hr TITRATE IV Last administered on 06:48; Admin Dose 5 MLS/HR; Start 09/23/16 at 10:00 Miscellaneous Information 1 ea NOTE XX ; Start 09/23/16 at 13:30 Glucose (Glutose) 15 gm Q15M PRN PO DECREASED GLUCOSE; Start 09/23/16 at 13:30 Glucose (Glutose) 22.5 gm Q15M PRN PO DECREASED GLUCOSE; Start 09/23/16 at 13:30 Dextrose (D50w Syringe) 25 ml Q15M PRN IV DECREASED GLUCOSE Last administered on 09/23/16 13:24; Admin Dose 25 ML; Start 09/23/16 at 13:30 Dextrose (D50w Syringe) 50 ml Q15M PRN IV DECREASED GLUCOSE; Start 09/23/16 at 13:30 Glucagon (Glucagen) 1 mg Q15M PRN IM DECREASED GLUCOSE; Start 09/23/16 at 13:30 Glucose 15 gm 15 gm Q15M PRN BUCCAL DECREASED GLUCOSE; Start 09/23/16 at 13:30 Dextrose/Sodium Chloride (D5-NS) 1,000 ml @ 50 mls/hr Q20H IV Last administered on 09/29/16 15:30; Admin Dose 50 MLS/HR; Start 09/23/16 at 16:30 Metoclopramide HCl (Reglan) 10 mg Q12 IV Last administered on 09/29/16 21:01; Admin Dose 10 MG; Start 09/24/16 at 11:30 Enoxaparin Sodium 100 mg 100 mg Q12 SC Last administered on 09/29/16 21:07; Admin Dose 100 MG; Start 09/25/16 at 11:00 Midazolam HCl/ Dextrose (Versed/D5W) 50 ml @ 2 mls/hr TITRATE IV Last administered on 09/29/16 15:42; Admin Dose 3 MLS/HR; Start 09/25/16 at 12:00 Insulin Aspart NOVOLOG *MODERATE* ALGORI... Q6 SC ; Start 09/25/16 at 18:00 Vancomycin HCl/ Sodium Chloride (Vancocin/NS) 250 ml @ 83.333 mls/ hr Q12H IVPB Last administered on 09/30/16 04:01; Admin Dose 83.333 MLS/HR; Start 09/28 at 15:00 Acetaminophen (Tylenol Liquid) 650 mg Q4H PRN NGT PAIN AND OR ELEVATED TEMP Last administered on 09/30/16 04:01; Admin Dose 650 MG; Start 09/28/16 at 13:30 Lisinopril (Zestril) 2.5 mg BID GTB Last administered on 09/29/16 21:01; Admin Dose 2.5 MG; Start 09/29/16 at 21:00 Miscellaneous Information VANCO TROUGH @ 1,400 ON... ONCE ONCE XX ; Start 08/06 at 14:00; Stop 09/30/16 at 14:01 Piperacillin Sod/ Tazobactam Sod (Zosyn 3.375gm/ 100 ml (Pmx)) 100 ml @ 200 mls /hr Q6 IVPB Last administered on 09/30/16 05:23; Admin Dose 200 MLS/HR; Start 09/29/16 at 17:00 MIGUEL ERNST M.D. Sep 30, 2016 09:09
[2016-09-30] MEDS: METOCLOPRAMIDE 10 MG INJ IV SCH ×2 (09:20→21:12)
[2016-09-30] MEDS: LISINOPRIL 5 MG TAB GTB SCH ×2 (09:20→19:56)
[2016-09-30] MEDS: FAMOTIDINE 20 MG INJ IV SCH ×2 (09:20→21:13)
[2016-09-30] MEDS: ENOXAPARIN 100 MG/ML SYG SC SCH (09:42)
--- NOTE | 2016-09-30 10:31 | PN ---
Date/Time of Note Date/Time of Note DATE: 09/30/16 TIME: 10:29 Assessment/Plan Lines/Catheters IV Catheter Type (from Nrsg): Central Line Tang in Place (from Nrsg): Yes Assessment/Plan Chief Complaint/Hosp Course IMPRESSION 1. Pulmonary embolism. 2. Pneumonia. 3 Pleural effusion RECOMMENDATIONS: We will monitor the pleural effusion. Thorocentesis prn Anticoagulation . . Discussed with the nursing staff. Problems: Subjective 24 Hr Interval Summary Constitutional: improved Pain Control: mild Exam/Review of Systems Vital Signs Vitals Vital Signs Date Time Temp Pulse Resp B/P Pulse Ox O2 Delivery O2 Flow Rate FiO2 09/30/16 08:00 69 09/30/16 08:00 97.9 16 98/64 96 Mechanical Ventilator 09/30/16 05:35 40 Intake and Output 09/29/16 09/29/16 09/30/16 15:00 23:00 07:00 Intake Total 975.383 ml 1351.744 ml 269 ml Output Total 465 ml 1020 ml 290 ml Balance 510.383 ml 331.744 ml -21 ml Exam ENMT: mucosa pink and moist, nl external ears & nose, nl lips & teeth, nl nasal mucosa & septum Neck: non-tender, supple Respiratory: clear to auscultation, normal air movement Cardiovascular: nl pulses, regular rate and rhythm Results Result Diagram: 09/30/1641909/30/16419 YOUNG HAY MD Sep 30, 2016 10:30
[2016-09-30 11:24] LABS: ADD UMIC YES; URINE BILIRUBIN (Dip) 1+ (NEGATIVE); URINE BLOOD (Dip) TRACE (NEGATIVE); URINE COLOR DK. YELLOW (YELLOW); URINE GLUCOSE (Dip) NEGATIVE (NEGATIVE); URINE KETONES (Dip) NEGATIVE (NEGATIVE); URINE LEUKOCYTE ESTERASE (Dip) NEGATIVE (NEGATIVE); URINE NITRITE (Dip) NEGATIVE (NEGATIVE); URINE TOTAL PROTEIN (Dip) 2+ (NEGATIVE); URINE UROBILINOGEN (Dip) >8.0 E.U./dL (0.1-1.0)
[2016-09-30 11:42] LABS: ICTOTEST NEGATIVE (NEGATIVE)
[2016-09-30 11:51] LABS: BACTERIA,URINE FEW; URINE RBCS 0-2 /HPF (0)
--- NOTE | 2016-09-30 12:43 | CONS ---
Date/Time of Note Date/Time of Note DATE: 09/30/16 TIME: 12:42 Consult Date/Type/Reason Admit Date/Time Sep 15, 2016 at 16:54 Type of Consultation: pulmonary Ordering Provider: JAN ZHANG Subjective Patient remains stable on mechanical ventilation Transfer to [facility] to rule out TB Remains hemodynamically stable at present Pending thoracentesis today Objective Vital Signs Date Time Temp Pulse Resp B/P Pulse Ox O2 Delivery O2 Flow Rate FiO2 09/30/16 12:00 98.7 09/30/16 12:00 68 09/30/16 11:30 16 100/65 99 09/30/16 11:00 Mechanical Ventilator 09/30/16 08:00 40 Intake and Output 09/29/16 09/29/16 09/30/16 15:00 23:00 07:00 Intake Total 975.383 ml 1351.744 ml 269 ml Output Total 465 ml 1020 ml 290 ml Balance 510.383 ml 331.744 ml -21 ml PHYSICAL EXAMINATION GENERAL: Chronically ill gentleman intubated on mechanical ventilation VITAL SIGNS: see below. HEENT: Pupils equal, round, and reactive to light. CARDIAC: S1, S2, CHEST: Diminished air entry bilaterally. ABDOMEN: Mildly distended. Bowel sounds present abdomen mildly distended no guarding or rebound. EXTREMITIES: No cyanosis, clubbing edema +1 NEUROLOGIC: No focal deficits. Results/Medications Result Diagram: 09/30/160 09/30/16 0420 Results 24 hrs Laboratory Tests Test 09/29/16 17:23 09/30/16 00:27 09/30/16 04:20 09/30/16 05:25 Bedside Glucose 113 89 101 Anion Gap 10 Basophils # 0.0 Basophils % 0.3 Blood Morphology Comment Blood Urea Nitrogen 20 Calcium Level 7.5 L Carbon Dioxide Level 38 H Chloride Level 96 L Creatinine 0.90 Eosinophils # 0.2 Eosinophils % 3.4 Glucose Level 107 HIV (1&2) Antibody NEGATIVE Hematocrit 37.1 L Hemoglobin 11.9 L Lymphocytes # 0.7 L Lymphocytes % 11.7 L Magnesium Level 1.6 L Mean Corpuscular Hemoglobin 29.0 Mean Corpuscular Hemoglobin Concent 32.2 Mean Corpuscular Volume 89.9 Mean Platelet Volume 10.2 Monocytes # 0.8 Monocytes % 11.7 H Neutrophils # 4.7 Neutrophils % 72.9 Nucleated Red Blood Cells # 0.0 Nucleated Red Blood Cells % 0.0 Phosphorus Level 3.2 Platelet Count 255 Potassium Level 3.6 Red Blood Count 4.13 L Red Cell Distribution Width 14.8 H Sodium Level 140 White Blood Count 6.4 Test 09/30/16 10:19 09/30/16 11:57 Urine Bacteria FEW Urine Bilirubin 1+ H Urine Clarity CLEAR Urine Color DK. YELLOW Urine Glucose NEGATIVE Urine Hemoglobin TRACE Urine Ictotest NEGATIVE Urine Ketones NEGATIVE Urine Leukocyte Esterase NEGATIVE Urine Microscopic RBC 0-2 Urine Microscopic WBC 0-2 Urine Nitrite NEGATIVE Urine Specific [place] 1.025 Urine Total Protein 2+ H Urine Urobilinogen >8.0 E.U./dL H Urine pH 6.5 Bedside Glucose 91 Medications Current Medications Lorazepam (Ativan) 0.5 mg Q6H PRN IV ANXIETY Last administered on 09/27/16 10: 59; Admin Dose 0.5 MG; Start 09/15/16 at 18:00 Ondansetron HCl (Zofran Inj) 4 mg Q6H PRN IV NAUSEA AND/OR VOMITING; Start at 18:00 Morphine Sulfate (morphine) 2 mg Q4H PRN IV PAIN LEVEL 7-10 Last administered on 09/22/16 01:30; Admin Dose 2 MG; Start 09/15/16 at 18:00 Haloperidol 5 mg 5 mg Q6H PRN IM AGITATION Last administered on 09/19/16at 10: 40; Admin Dose 5 MG; Start 09/18/16 at 11:30 Propofol (Diprivan) 100 ml @ 3.105 mls/ hr Q12H IV Last administered on 06:34; Admin Dose 9.936 MLS/HR; Start 09/19/16 at 13:30 Famotidine 20 mg 20 mg BID IV Last administered on 09/30/16 09:20; Admin Dose 20 MG; Start 09/19/16 at 21:00 Fentanyl/Dextrose (D5W) 100 ml @ 2.5 mls/hr TITRATE IV Last administered on 06:48; Admin Dose 5 MLS/HR; Start 09/23/16 at 10:00 Miscellaneous Information 1 ea NOTE XX ; Start 09/23/16 at 13:30 Glucose (Glutose) 15 gm Q15M PRN PO DECREASED GLUCOSE; Start 09/23/16 at 13:30 Glucose (Glutose) 22.5 gm Q15M PRN PO DECREASED GLUCOSE; Start 09/23/16 at 13:30 Dextrose (D50w Syringe) 25 ml Q15M PRN IV DECREASED GLUCOSE Last administered on 09/23/16 13:24; Admin Dose 25 ML; Start 09/23/16 at 13:30 Dextrose (D50w Syringe) 50 ml Q15M PRN IV DECREASED GLUCOSE; Start 09/23/16 at 13:30 Glucagon (Glucagen) 1 mg Q15M PRN IM DECREASED GLUCOSE; Start 09/23/16 at 13:30 Glucose 15 gm 15 gm Q15M PRN BUCCAL DECREASED GLUCOSE; Start 09/23/16 at 13:30 Dextrose/Sodium Chloride (D5-NS) 1,000 ml @ 50 mls/hr Q20H IV Last administered on 09/29/16 15:30; Admin Dose 50 MLS/HR; Start 09/23/16 at 16:30 Metoclopramide HCl (Reglan) 10 mg Q12 IV Last administered on 09/30/16 09:20; Admin Dose 10 MG; Start 09/24/16 at 11:30 Enoxaparin Sodium 100 mg 100 mg Q12 SC Last administered on 09/30/16 09:42; Admin Dose 100 MG; Start 09/25/16 at 11:00 Midazolam HCl/ Dextrose (Versed/D5W) 50 ml @ 2 mls/hr TITRATE IV Last administered on 09/29/16 15:42; Admin Dose 3 MLS/HR; Start 09/25/16 at 12:00 Insulin Aspart NOVOLOG *MODERATE* ALGORI... Q6 SC ; Start 09/25/16 at 18:00 Vancomycin HCl/ Sodium Chloride (Vancocin/NS) 250 ml @ 83.333 mls/ hr Q12H IVPB Last administered on 09/30/16 04:01; Admin Dose 83.333 MLS/HR; Start 09/28 at 15:00 Acetaminophen (Tylenol Liquid) 650 mg Q4H PRN NGT PAIN AND OR ELEVATED TEMP Last administered on 09/30/16 04:01; Admin Dose 650 MG; Start 09/28/16 at 13:30 Lisinopril (Zestril) 2.5 mg BID GTB Last administered on 09/30/16 09:20; Admin Dose 2.5 MG; Start 09/29/16 at 21:00 Miscellaneous Information VANCO TROUGH @ 1,400 ON... ONCE ONCE XX ; Start 08/06 at 14:00; Stop 09/30/16 at 14:01 Piperacillin Sod/ Tazobactam Sod (Zosyn 3.375gm/ 100 ml (Pmx)) 100 ml @ 200 mls /hr Q6 IVPB Last administered on 09/30/16 11:55; Admin Dose 200 MLS/HR; Start 09/29/16 at 17:00 Assessment/Plan Chief Complaint/Hosp Course IMPRESSION: 1. Hypoxemic respiratory failure/vent dependence 2. Right sided pneumonia with complicated parapneumonic effusion s/p thoracentesis 3. Acute pulmonary emboli 4. Encephalopathy, likely toxic metabolic. 5. Transaminitis 6. FEN- Increased Na+ PLAN: 1. Repeat thoracentesis today. Continues to reaccumulate we will need repeat thoracentesis, hopefully done today 2. check cocci serologies/TB quant gold, respiratory isolation 3. continue lovenox 4. Continue Free H20 5 IV fluids per primary team 6. Check LFT's, consider GI evaluation 7. Am CXR/ABG Problems: AMANDA STONE MD, FCCP Sep 30, 2016 12:43
[2016-09-30] MEDS: MIDAZOLAM 50 MG in DEXTROSE 5% 40 ML IV SCH (13:08)
--- NOTE | 2016-09-30 15:02 | PN ---
Date/Time of Note Date/Time of Note DATE: 09/30/16 TIME: 14:54 Assessment/Plan VTE Prophylaxis VTE Prophylaxis Intervention: SCD's Lines/Catheters IV Catheter Type (from [facility]): Central Line Central line still needed: Yes Urinary Cath still in place: Yes Reason Cath still needed: urinary retention Assessment/Plan Chief Complaint/Hosp Course ASSESSMENT AND PLAN: 1. Acute respiratory failure. Dr. Aquino is following the patient from pulmonology consultation. Continue bronchodilators and vent support. 2. Right-sided pneumonia with complicated parapneumonic effusion, status post thoracentesis. Continue patient on vancomycin and cefepime. Dr. Hernandez is following from an Infectious Disease standpoint. 3. Acute pulmonary emboli. Continue patient on Lovenox. 4. 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 Continue patient on Lasix. Dr. Woodard is following from cardiology standpoint. 5. Encephalopathy, likely toxic metabolic. Continue to monitor. 6. 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 Continue Pepcid for peptic ulcer disease prophylaxis. Further recommendations based on clinical course. Plan of care discussed with Dr. Patel. Problems: Subjective 24 Hr Interval Summary Free Text/Dictation Patient is continues to be on sedation and vent support, no fever today, pending thoracentesis. Exam/Review of Systems Vital Signs Vitals Vital Signs Date Time Temp Pulse Resp B/P Pulse Ox O2 Delivery O2 Flow Rate FiO2 09/30/16 12:00 98.7 09/30/16 12:00 68 09/30/16 11:30 16 100/65 99 09/30/16 11:00 Mechanical Ventilator 09/30/16 08:00 40 Intake and Output 09/29/16 09/29/16 09/30/16 15:00 23:00 07:00 Intake Total 975.383 ml 1351.744 ml 328.5 ml Output Total 465 ml 1020 ml 290 ml Balance 510.383 ml 331.744 ml 38.5 ml Exam GENERAL: Well-developed, well-nourished male currently sedated, orally intubated on vent. NECK: Supple. No mass, no thyromegaly. LUNGS: Diminished with scattered rhonchi bilaterally. HEART: Normal S1, S2. No murmurs, gallops, clicks, rubs noted. ABDOMEN: Round, soft, nondistended, nontender. Bowel sounds present. EXTREMITIES: No edema, clubbing, cyanosis. Pulses equal bilaterally 2+. SKIN: There is no rash. NEUROLOGIC: The patient is sedated. Results Result Diagram: 09/30/16 04209/30/16 0420 Results 24 hrs Laboratory Tests Test 09/29/16 17:23 09/30/16 00:27 09/30/16 04:20 09/30/16 05:25 Bedside Glucose 113 89 101 Anion Gap 10 Basophils # 0.0 Basophils % 0.3 Blood Morphology Comment Blood Urea Nitrogen 20 Calcium Level 7.5 L Carbon Dioxide Level 38 H Chloride Level 96 L Creatinine 0.90 Eosinophils # 0.2 Eosinophils % 3.4 Glucose Level 107 HIV (1&2) Antibody NEGATIVE Hematocrit 37.1 L Hemoglobin 11.9 L Lymphocytes # 0.7 L Lymphocytes % 11.7 L Magnesium Level 1.6 L Mean Corpuscular Hemoglobin 29.0 Mean Corpuscular Hemoglobin Concent 32.2 Mean Corpuscular Volume 89.9 Mean Platelet Volume 10.2 Monocytes # 0.8 Monocytes % 11.7 H Neutrophils # 4.7 Neutrophils % 72.9 Nucleated Red Blood Cells # 0.0 Nucleated Red Blood Cells % 0.0 Phosphorus Level 3.2 Platelet Count 255 Potassium Level 3.6 Red Blood Count 4.13 L Red Cell Distribution Width 14.8 H Sodium Level 140 White Blood Count 6.4 Test 09/30/16 10:19 09/30/16 11:57 Urine Bacteria FEW Urine Bilirubin 1+ H Urine Clarity CLEAR Urine Color DK. YELLOW Urine Glucose NEGATIVE Urine Hemoglobin TRACE Urine Ictotest NEGATIVE Urine Ketones NEGATIVE Urine Leukocyte Esterase NEGATIVE Urine Microscopic RBC 0-2 Urine Microscopic WBC 0-2 Urine Nitrite NEGATIVE Urine Specific [place] 1.025 Urine Total Protein 2+ H Urine Urobilinogen >8.0 E.U./dL H Urine pH 6.5 Bedside Glucose 91 Medications Medications Current Medications Lorazepam (Ativan) 0.5 mg Q6H PRN IV ANXIETY Last administered on 09/27/16 10: 59; Admin Dose 0.5 MG; Start 09/15/16 at 18:00 Ondansetron HCl (Zofran Inj) 4 mg Q6H PRN IV NAUSEA AND/OR VOMITING; Start at 18:00 Morphine Sulfate (morphine) 2 mg Q4H PRN IV PAIN LEVEL 7-10 Last administered on 09/22/16 01:30; Admin Dose 2 MG; Start 09/15/16 at 18:00 Haloperidol 5 mg 5 mg Q6H PRN IM AGITATION Last administered on 09/19/16at 10: 40; Admin Dose 5 MG; Start 09/18/16 at 11:30 Propofol (Diprivan) 100 ml @ 3.105 mls/ hr Q12H IV Last administered on 06:34; Admin Dose 9.936 MLS/HR; Start 09/19/16 at 13:30 Famotidine 20 mg 20 mg BID IV Last administered on 09/30/16 09:20; Admin Dose 20 MG; Start 09/19/16 at 21:00 Fentanyl/Dextrose (D5W) 100 ml @ 2.5 mls/hr TITRATE IV Last administered on 06:48; Admin Dose 5 MLS/HR; Start 09/23/16 at 10:00 Miscellaneous Information 1 ea NOTE XX ; Start 09/23/16 at 13:30 Glucose (Glutose) 15 gm Q15M PRN PO DECREASED GLUCOSE; Start 09/23/16 at 13:30 Glucose (Glutose) 22.5 gm Q15M PRN PO DECREASED GLUCOSE; Start 09/23/16 at 13:30 Dextrose (D50w Syringe) 25 ml Q15M PRN IV DECREASED GLUCOSE Last administered on 09/23/16 13:24; Admin Dose 25 ML; Start 09/23/16 at 13:30 Dextrose (D50w Syringe) 50 ml Q15M PRN IV DECREASED GLUCOSE; Start 09/23/16 at 13:30 Glucagon (Glucagen) 1 mg Q15M PRN IM DECREASED GLUCOSE; Start 09/23/16 at 13:30 Glucose 15 gm 15 gm Q15M PRN BUCCAL DECREASED GLUCOSE; Start 09/23/16 at 13:30 Dextrose/Sodium Chloride (D5-NS) 1,000 ml @ 50 mls/hr Q20H IV Last administered on 09/29/16 15:30; Admin Dose 50 MLS/HR; Start 09/23/16 at 16:30 Metoclopramide HCl 10 mg 10 mg Q12 IV Last administered on 09/30/16 09:20; Admin Dose 10 MG; Start 09/24/16 at 11:30 Midazolam HCl/ Dextrose (Versed/D5W) 50 ml @ 2 mls/hr TITRATE IV Last administered on 09/30/16 13:08; Admin Dose 3 MLS/HR; Start 09/25/16 at 12:00 Insulin Aspart NOVOLOG *MODERATE* ALGORI... Q6 SC ; Start 09/25/16 at 18:00 Vancomycin HCl/ Sodium Chloride (Vancocin/NS) 250 ml @ 83.333 mls/ hr Q12H IVPB Last administered on 09/30/16 04:01; Admin Dose 83.333 MLS/HR; Start 09/28 at 15:00 Acetaminophen (Tylenol Liquid) 650 mg Q4H PRN NGT PAIN AND OR ELEVATED TEMP Last administered on 09/30/16 04:01; Admin Dose 650 MG; Start 09/28/16 at 13:30 Lisinopril 2.5 mg 2.5 mg BID GTB Last administered on 09/30/16 09:20; Admin Dose 2.5 MG; Start 09/29/16 at 21:00 Piperacillin Sod/ Tazobactam Sod (Zosyn 3.375gm/ 100 ml (Pmx)) 100 ml @ 200 mls /hr Q6 IVPB Last administered on 09/30/16 11:55; Admin Dose 200 MLS/HR; Start 09/29/16 at 17:00 Enoxaparin Sodium (Lovenox) 100 mg Q12 SC ; Start 10/01/16 at 21:00 JAN ZHANG Sep 30, 2016 15:02
[2016-09-30] MEDS ORDERED: MAGNESIUM SULFATE 2 GM/50 ML 50 ML IVPB ONE (16:00)
--- NOTE | 2016-09-30 19:47 | CONS ---
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% Pleural effusion -Patient awaiting thoracentesis, restart anticoagulation when able to, continue HILDA inhibitor as blood pressure permits Consultation Date/Type/Reason Admit Date/Time Sep 15, 2016 at 16:54 Initial Consult Date 09/29/16 Type of Consultation: cv Referring Provider: JAN ZHANG 24 HR Interval Summary Free Text/Dictation Patient seen and examined, no cardiac issues as per nursing staff Exam/Review of Systems Vital Signs Vitals Vital Signs Date Time Temp Pulse Resp B/P Pulse Ox O2 Delivery O2 Flow Rate FiO2 09/30/16 18:30 76 16 95/66 09/30/16 18:00 100 Mechanical Ventilator 09/30/16 17:10 40 09/30/16 16:00 99.6 Intake and Output 09/29/16 09/29/16 09/30/16 15:00 23:00 07:00 Intake Total 975.383 ml 1351.744 ml 328.5 ml Output Total 465 ml 1020 ml 290 ml Balance 510.383 ml 331.744 ml 38.5 ml Exam Sedated and intubated Head: normocephalic ENMT: intubated Respiratory: other (course breath sounds bilaterally, decreased at the right base, no wheezing) Cardiovascular: other (S1-S2 heard), regular rate and rhythm Gastrointestinal: bowel sounds, non-tender, soft Extremities: edema Results Result Diagram: 09/30/16 0420 09/30/16 0420 Results 24 hrs Laboratory Tests Test 09/30/16 00:27 09/30/16 04:20 09/30/16 05:25 09/30/16 10:19 Bedside Glucose 89 101 Anion Gap 10 Basophils # 0.0 Basophils % 0.3 Blood Morphology Comment Blood Urea Nitrogen 20 Calcium Level 7.5 L Carbon Dioxide Level 38 H Chloride Level 96 L Creatinine 0.90 Eosinophils # 0.2 Eosinophils % 3.4 Glucose Level 107 HIV (1&2) Antibody NEGATIVE Hematocrit 37.1 L Hemoglobin 11.9 L Lymphocytes # 0.7 L Lymphocytes % 11.7 L Magnesium Level 1.6 L Mean Corpuscular Hemoglobin 29.0 Mean Corpuscular Hemoglobin Concent 32.2 Mean Corpuscular Volume 89.9 Mean Platelet Volume 10.2 Monocytes # 0.8 Monocytes % 11.7 H Neutrophils # 4.7 Neutrophils % 72.9 Nucleated Red Blood Cells # 0.0 Nucleated Red Blood Cells % 0.0 Phosphorus Level 3.2 Platelet Count 255 Potassium Level 3.6 Red Blood Count 4.13 L Red Cell Distribution Width 14.8 H Sodium Level 140 White Blood Count 6.4 Urine Bacteria FEW Urine Bilirubin 1+ H Urine Clarity CLEAR Urine Color DK. YELLOW Urine Glucose NEGATIVE Urine Hemoglobin TRACE Urine Ictotest NEGATIVE Urine Ketones NEGATIVE Urine Leukocyte Esterase NEGATIVE Urine Microscopic RBC 0-2 Urine Microscopic WBC 0-2 Urine Nitrite NEGATIVE Urine Specific [place] 1.025 Urine Total Protein 2+ H Urine Urobilinogen >8.0 E.U./dL H Urine pH 6.5 Test 09/30/16 11:57 09/30/16 14:10 09/30/16 18:08 Bedside Glucose 91 99 Vancomycin Level Trough 14.3 Medications Medications Current Medications Lorazepam (Ativan) 0.5 mg Q6H PRN IV ANXIETY Last administered on 09/27/16 10: 59; Admin Dose 0.5 MG; Start 09/15/16 at 18:00 Ondansetron HCl (Zofran Inj) 4 mg Q6H PRN IV NAUSEA AND/OR VOMITING; Start at 18:00 Morphine Sulfate (morphine) 2 mg Q4H PRN IV PAIN LEVEL 7-10 Last administered on 09/22/16 01:30; Admin Dose 2 MG; Start 09/15/16 at 18:00 Haloperidol 5 mg 5 mg Q6H PRN IM AGITATION Last administered on 09/19/16at 10: 40; Admin Dose 5 MG; Start 09/18/16 at 11:30 Propofol (Diprivan) 100 ml @ 3.105 mls/ hr Q12H IV Last administered on 16:36; Admin Dose 9.315 MLS/HR; Start 09/19/16 at 13:30 Famotidine 20 mg 20 mg BID IV Last administered on 09/30/16 09:20; Admin Dose 20 MG; Start 09/19/16 at 21:00 Fentanyl/Dextrose (D5W) 100 ml @ 2.5 mls/hr TITRATE IV Last administered on 06:48; Admin Dose 5 MLS/HR; Start 09/23/16 at 10:00 Miscellaneous Information 1 ea NOTE XX ; Start 09/23/16 at 13:30 Glucose (Glutose) 15 gm Q15M PRN PO DECREASED GLUCOSE; Start 09/23/16 at 13:30 Glucose (Glutose) 22.5 gm Q15M PRN PO DECREASED GLUCOSE; Start 09/23/16 at 13:30 Dextrose (D50w Syringe) 25 ml Q15M PRN IV DECREASED GLUCOSE Last administered on 09/23/16 13:24; Admin Dose 25 ML; Start 09/23/16 at 13:30 Dextrose (D50w Syringe) 50 ml Q15M PRN IV DECREASED GLUCOSE; Start 09/23/16 at 13:30 Glucagon (Glucagen) 1 mg Q15M PRN IM DECREASED GLUCOSE; Start 09/23/16 at 13:30 Glucose 15 gm 15 gm Q15M PRN BUCCAL DECREASED GLUCOSE; Start 09/23/16 at 13:30 Dextrose/Sodium Chloride (D5-NS) 1,000 ml @ 50 mls/hr Q20H IV Last administered on 09/29/16 15:30; Admin Dose 50 MLS/HR; Start 09/23/16 at 16:30 Metoclopramide HCl 10 mg 10 mg Q12 IV Last administered on 09/30/16 09:20; Admin Dose 10 MG; Start 09/24/16 at 11:30 Midazolam HCl/ Dextrose (Versed/D5W) 50 ml @ 2 mls/hr TITRATE IV Last administered on 09/30/16 13:08; Admin Dose 3 MLS/HR; Start 09/25/16 at 12:00 Insulin Aspart NOVOLOG *MODERATE* ALGORI... Q6 SC ; Start 09/25/16 at 18:00 Vancomycin HCl/ Sodium Chloride (Vancocin/NS) 250 ml @ 83.333 mls/ hr Q12H IVPB Last administered on 09/30/16 15:25; Admin Dose 83.333 MLS/HR; Start 09/28 at 15:00 Acetaminophen (Tylenol Liquid) 650 mg Q4H PRN NGT PAIN AND OR ELEVATED TEMP Last administered on 09/30/16 04:01; Admin Dose 650 MG; Start 09/28/16 at 13:30 Lisinopril 2.5 mg 2.5 mg BID GTB Last administered on 09/30/16 09:20; Admin Dose 2.5 MG; Start 09/29/16 at 21:00 Piperacillin Sod/ Tazobactam Sod (Zosyn 3.375gm/ 100 ml (Pmx)) 100 ml @ 200 mls /hr Q6 IVPB Last administered on 09/30/16 18:03; Admin Dose 200 MLS/HR; Start 09/29/16 at 17:00 Enoxaparin Sodium 100 mg 100 mg Q12 SC ; Start 10/01/16 at 21:00 Norepinephrine (Levophed) 250 ml @ 1.875 mls/ hr TITRATE IV ; Start 09/30/16 at 19:00 Nikolay Luna DO Sep 30, 2016 19:47
[2016-10-01] VITALS (56 sets, daily range): BP systolic 79–115; BP diastolic 48–92; PULSE 73–114; RESP 0–25
[2016-10-01] MEDS: DEXTROSE 50% 50 ML SYRINGE IV PRN (00:02)
[2016-10-01] MEDS: PROPOFOL 100 ML IV SCH ×4 (01:04→23:52)
[2016-10-01] MEDS: MIDAZOLAM 50 MG in DEXTROSE 5% 40 ML IV SCH ×2 (03:13→14:51)
[2016-10-01] MEDS: DEXTROSE 5%-0.9% NACL 1,000 ML IV SCH ×2 (03:14→23:52)
[2016-10-01] MEDS: VANCOMYCIN 1.25 GM in SOD CHLORIDE 0.9% 250 ML IVPB SCH ×2 (03:14→14:46)
[2016-10-01] MEDS: FENTAnyl 1,000 MCG in DEXTROSE 5% 80 ML IV SCH ×2 (03:14→19:23)
[2016-10-01] MEDS: FUROSEMIDE 40 MG INJ IV SCH ×3 (05:42→17:51)
[2016-10-01] MEDS: PIPER-TAZO 3.375 GM IV (PMX) 100 ML IVPB SCH ×4 (05:42→23:50)
[2016-10-01] MEDS: INSULIN ASPART [NOVOLOG] 3 ML PEN SC SCH ×4 (05:42→23:51)
[2016-10-01 06:48] LABS: POTASSIUM 3.5 mmol/L (3.5-5.1)
[2016-10-01 06:51] LABS: CALCIUM 7.3 mg/dl (8.4-10.2); CREATININE 0.82 mg/dl (0.61-1.24); INR 1.07; PROTIME 13.9 Sec (12.2-14.2); PT RATIO 1.1
[2016-10-01 06:52] LABS: PARTIAL THROMBOPLASTIN TIME 35.5 Sec (25.0-35.0)
[2016-10-01 06:58] LABS: BASOPHILS % 0.6 % (0.0-2.0); EOSINOPHILS # 0.4 10^3/ul (0.0-0.5); EOSINOPHILS % 8.3 % (0.0-7.0); HEMATOCRIT 35.7 % (42.0-52.0); HEMOGLOBIN 11.8 g/dl (14.0-18.0); LYMPHOCYTES % 23.1 % (15.0-51.0); MEAN CORPUSCULAR HEMOGLOBIN 29.4 pg (29.0-33.0); MEAN CORPUSCULAR HGB CONC 33.1 g/dl (32.0-37.0); MEAN CORPUSCULAR VOLUME 88.9 fl (82.0-101.0); MEAN PLATELET VOLUME 10.5 fl (7.4-10.4); MONOCYTE # 0.6 10^3/ul (0.3-0.9); MONOCYTES % 14.7 % (0.0-11.0); NEUTROPHIL # 2.3 10^3/ul (1.6-7.5); NEUTROPHILS % 53.3 % (39.0-77.0); PLATELET COUNT 250 10^3/UL (140-440); RED BLOOD COUNT 4.01 10^6/ul (4.70-6.10); RED CELL DISTRIBUTION WIDTH 14.6 % (11.5-14.5); UNCORRECTED WBC 4.3 10^3/ul (4.8-10.8); WHITE BLOOD COUNT 4.3 10^3/ul (4.8-10.8)
[2016-10-01 07:06] LABS: CONDITION 1; LH ANALYZER COMMENTS 1
--- NOTE | 2016-10-01 08:34 | RADRPT ---
PROCEDURE: XR Chest. CLINICAL INDICATION: Pneumonia/CHF TECHNIQUE: Single portable view of the chest was obtained COMPARISON: Chest 09/30/2016 FINDINGS: Allowing for difference in technique there is no significant change. Again there is an endotracheal tube left central venous catheter and nasogastric tube unchanged in position. There are bilateral pleural effusions larger on the right. There is increased density involving the perihilar lower juice gs which may all be due to pulmonary edema however inflammatory infiltrates cannot be excluded. Bon y vessels appear prominent. Certainly these findings represent congestive heart failure and/or pneu monia. No evidence pneumothorax. IMPRESSION: 1. No significant change per 2. Findings suggestive of possible congestive heart failure and pulmonary edema and/or pneumonia pa rticularly at the bases. 3. Bilateral pleural effusions larger on the right. RPTAT:AAJJ Physician Caprice Date Time Electronically viewed and signed by Physician Caprice on 10/01/2016 08:34 BM/
[2016-10-01] MEDS: METOCLOPRAMIDE 10 MG INJ IV SCH ×2 (09:45→21:33)
[2016-10-01] MEDS: FAMOTIDINE 20 MG INJ IV SCH ×2 (09:45→21:33)
[2016-10-01] MEDS: LISINOPRIL 5 MG TAB GTB SCH (09:46)
--- NOTE | 2016-10-01 10:17 | CONS ---
Date/Time of Note Date/Time of Note DATE: 10/01/16 TIME: 10:16 Consult Date/Type/Reason Admit Date/Time Sep 15, 2016 at 16:54 Type of Consultation: pulmonary Ordering Provider: JAN ZHANG Subjective Patient stable no new events remains intubated sedated on mechanical ventilation Thoracentesis this morning Objective Vital Signs Date Time Temp Pulse Resp B/P Pulse Ox O2 Delivery O2 Flow Rate FiO2 10/01/16 10:00 98 17 109/75 98 Mechanical Ventilator 10/01/16 09:50 40 10/01/16 08:00 97.5 Intake and Output 09/30/16 09/30/16 10/01/16 15:00 23:00 07:00 Intake Total 1161.140 ml 972.230 ml 1110 ml Output Total 475 ml 335 ml 185 ml Balance 686.140 ml 637.230 ml 925 ml PHYSICAL EXAMINATION GENERAL: Chronically ill gentleman intubated on mechanical ventilation VITAL SIGNS: see below. HEENT: Pupils equal, round, and reactive to light. CARDIAC: S1, S2, CHEST: Diminished air entry bilaterally. ABDOMEN: Mildly distended. Bowel sounds present abdomen mildly distended no guarding or rebound. EXTREMITIES: No cyanosis, clubbing edema +1 NEUROLOGIC: No focal deficits. Results/Medications Result Diagram: 10/01/16 0500 10/01/16 0500 Results 24 hrs Laboratory Tests Test 09/30/16 10:19 09/30/16 11:57 09/30/16 14:10 09/30/16 18:08 Urine Bacteria FEW Urine Bilirubin 1+ H Urine Clarity CLEAR Urine Color DK. YELLOW Urine Glucose NEGATIVE Urine Hemoglobin TRACE Urine Ictotest NEGATIVE Urine Ketones NEGATIVE Urine Leukocyte Esterase NEGATIVE Urine Microscopic RBC 0-2 Urine Microscopic WBC 0-2 Urine Nitrite NEGATIVE Urine Specific [place] 1.025 Urine Total Protein 2+ H Urine Urobilinogen >8.0 E.U./dL H Urine pH 6.5 Bedside Glucose 91 99 Vancomycin Level Trough 14.3 Test 09/30/16 23:42 10/01/16 01:20 10/01/16 05:00 10/01/16 05:38 Bedside Glucose 68 L 93 95 Activated Partial Thromboplast Time 35.5 H Anion Gap 9 Basophils # 0.0 Basophils % 0.6 Blood Morphology Comment Blood Urea Nitrogen 18 Calcium Level 7.3 L Carbon Dioxide Level 35 H Chloride Level 99 Creatinine 0.82 Eosinophils # 0.4 Eosinophils % 8.3 H Glucose Level 85 Hematocrit 35.7 L Hemoglobin 11.8 L INR International Normalized Ratio 1.07 Lymphocytes # 1.0 Lymphocytes % 23.1 Mean Corpuscular Hemoglobin 29.4 Mean Corpuscular Hemoglobin Concent 33.1 Mean Corpuscular Volume 88.9 Mean Platelet Volume 10.5 H Monocytes # 0.6 Monocytes % 14.7 H Neutrophils # 2.3 Neutrophils % 53.3 Nucleated Red Blood Cells # 0.0 Nucleated Red Blood Cells % 0.0 Platelet Count 250 Potassium Level 3.5 Prothrombin Time 13.9 # Prothrombin Time Ratio 1.1 Red Blood Count 4.01 L Red Cell Distribution Width 14.6 H Sodium Level 139 White Blood Count 4.3 #L Medications Current Medications Lorazepam (Ativan) 0.5 mg Q6H PRN IV ANXIETY Last administered on 09/27/16 10: 59; Admin Dose 0.5 MG; Start 09/15/16 at 18:00 Ondansetron HCl (Zofran Inj) 4 mg Q6H PRN IV NAUSEA AND/OR VOMITING; Start at 18:00 Morphine Sulfate (morphine) 2 mg Q4H PRN IV PAIN LEVEL 7-10 Last administered on 09/22/16 01:30; Admin Dose 2 MG; Start 09/15/16 at 18:00 Haloperidol 5 mg 5 mg Q6H PRN IM AGITATION Last administered on 09/19/16at 10: 40; Admin Dose 5 MG; Start 09/18/16 at 11:30 Propofol (Diprivan) 100 ml @ 3.105 mls/ hr Q12H IV Last administered on 09:45; Admin Dose 9.3153 MLS/HR; Start 09/19/16 at 13:30 Famotidine 20 mg 20 mg BID IV Last administered on 10/01/16 09:45; Admin Dose 20 MG; Start 09/19/16 at 21:00 Fentanyl/Dextrose (D5W) 100 ml @ 2.5 mls/hr TITRATE IV Last administered on 03:14; Admin Dose 5 MLS/HR; Start 09/23/16 at 10:00 Miscellaneous Information 1 ea NOTE XX ; Start 09/23/16 at 13:30 Glucose (Glutose) 15 gm Q15M PRN PO DECREASED GLUCOSE; Start 09/23/16 at 13:30 Glucose (Glutose) 22.5 gm Q15M PRN PO DECREASED GLUCOSE; Start 09/23/16 at 13:30 Dextrose (D50w Syringe) 25 ml Q15M PRN IV DECREASED GLUCOSE Last administered on 10/01/16 00:02; Admin Dose 25 ML; Start 09/23/16 at 13:30 Dextrose (D50w Syringe) 50 ml Q15M PRN IV DECREASED GLUCOSE; Start 09/23/16 at 13:30 Glucagon (Glucagen) 1 mg Q15M PRN IM DECREASED GLUCOSE; Start 09/23/16 at 13:30 Glucose 15 gm 15 gm Q15M PRN BUCCAL DECREASED GLUCOSE; Start 09/23/16 at 13:30 Dextrose/Sodium Chloride (D5-NS) 1,000 ml @ 50 mls/hr Q20H IV Last administered on 10/01/16 03:14; Admin Dose 50 MLS/HR; Start 09/23/16 at 16:30 Metoclopramide HCl 10 mg 10 mg Q12 IV Last administered on 10/01/16 09:45; Admin Dose 10 MG; Start 09/24/16 at 11:30 Midazolam HCl/ Dextrose (Versed/D5W) 50 ml @ 2 mls/hr TITRATE IV Last administered on 10/01/16 03:13; Admin Dose 3 MLS/HR; Start 09/25/16 at 12:00 Insulin Aspart NOVOLOG *MODERATE* ALGORI... Q6 SC ; Start 09/25/16 at 18:00 Vancomycin HCl/ Sodium Chloride (Vancocin/NS) 250 ml @ 83.333 mls/ hr Q12H IVPB Last administered on 10/01/16 03:14; Admin Dose 83.333 MLS/HR; Start 09/28 at 15:00 Acetaminophen (Tylenol Liquid) 650 mg Q4H PRN NGT PAIN AND OR ELEVATED TEMP Last administered on 09/30/16 04:01; Admin Dose 650 MG; Start 09/28/16 at 13:30 Lisinopril 2.5 mg 2.5 mg BID GTB Last administered on 10/01/16 09:46; Admin Dose 2.5 MG; Start 09/29/16 at 21:00 Piperacillin Sod/ Tazobactam Sod (Zosyn 3.375gm/ 100 ml (Pmx)) 100 ml @ 200 mls /hr Q6 IVPB Last administered on 10/01/16t 05:42; Admin Dose 200 MLS/HR; Start 09/29/16 at 17:00 Enoxaparin Sodium 100 mg 100 mg Q12 SC ; Start 10/01/16 at 21:00 Norepinephrine (Levophed) 250 ml @ 1.875 mls/ hr TITRATE IV ; Start 09/30/16 at 19:00 Assessment/Plan Chief Complaint/Hosp Course IMPRESSION: 1. Hypoxemic respiratory failure/vent dependence 2. Right sided pneumonia with complicated parapneumonic effusion s/p thoracentesis, repeat thoracentesis today 3. Acute pulmonary emboli 4. Encephalopathy, likely toxic metabolic. 5. Transaminitis 6. FEN- Increased Na+ PLAN: 1. Repeat thoracentesis today. Repeat pleural fluid studies 2. check cocci serologies/TB quant gold, respiratory isolation, ID recommendations 3. continue lovenox 4. Continue Free H20 5 IV fluids per primary team Problems: AMANDA STONE MD, [facility] Oct 01, 2016 10:17
[2016-10-01] MEDS: ACETAMINOPHEN 650MG/20.3ML CUP NGT PRN (11:52)
[2016-10-01 12:05] LABS: FLUID GLUCOSE 85 mg/dl; FLUID TYPE THORACENTESIS FLUID
--- NOTE | 2016-10-01 12:08 | PN ---
Date/Time of Note Date/Time of Note DATE: 10/01/16 TIME: 11:47 Assessment/Plan VTE Prophylaxis VTE Prophylaxis Intervention: LMWH Lines/Catheters IV C[facility]ter Type (from [facility]): Central Line Central line still needed: Yes Urinary Cath still in place: Yes Reason Cath still needed: urinary retention Assessment/Plan Assessment/Plan 1. Acute respiratory failure. - per Dr. Aquino from pulmonology consultation. - Continue bronchodilators and vent support. 2. Right-sided pneumonia with complicated parapneumonic effusion, status post thoracentesis. - per Dr. Hernandez from an Infectious Disease standpoint. - Continue patient on vancomycin and cefepime. 3. Acute pulmonary emboli. Continue patient on Lovenox. 4. 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 - per Dr. Woodard from cardiology standpoint. - Continue patient on Lasix. 5. Encephalopathy, likely toxic metabolic. Continue to monitor. 6. 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 7. Bilateral hand/feet edema - will check for DVT, fu results Continue Pepcid for peptic ulcer disease prophylaxis. Total critical time spent for patient fu is 40 mins. Further recommendations based on clinical course. Plan of care discussed with Dr. Patel. Subjective 24 Hr Interval Summary Free Text/Dictation NAD, remains intubated, afebrile. dw staff. Subjective hx not possible: pt non-verbal Constitutional: requiring IVF, requiring O2 Exam/Review of Systems Vital Signs Vitals Vital Signs Date Time Temp Pulse Resp B/P Pulse Ox O2 Delivery O2 Flow Rate FiO2 10/01/16 11:00 90 16 100 40 10/01/16 10:00 109/75 Mechanical Ventilator 10/01/16 08:00 97.5 Intake and Output 09/30/16 09/30/16 10/01/16 15:00 23:00 07:00 Intake Total 1161.140 ml 972.230 ml 1110 ml Output Total 475 ml 335 ml 185 ml Balance 686.140 ml 637.230 ml 925 ml Exam Constitutional: frail Eyes: nl sclera ENMT: nl external ears & nose Neck: non-tender Respiratory: diminished breath sounds Cardiovascular: nl pulses Gastrointestinal: non-tender, soft Extremities: edema Neurological: lethargic Lymph: nontender Results Result Diagram: 10/01/16 0500 10/01/16 0500 Results 24 hrs Laboratory Tests Test 09/30/16 11:57 09/30/16 14:10 09/30/16 18:08 09/30/16 23:42 Bedside Glucose 91 99 68 L Vancomycin Level Trough 14.3 Test 10/01/16 01:20 10/01/16 05:00 10/01/16 05:38 Bedside Glucose 93 95 Activated Partial Thromboplast Time 35.5 H Anion Gap 9 Basophils # 0.0 Basophils % 0.6 Blood Morphology Comment Blood Urea Nitrogen 18 Calcium Level 7.3 L Carbon Dioxide Level 35 H Chloride Level 99 Creatinine 0.82 Eosinophils # 0.4 Eosinophils % 8.3 H Glucose Level 85 Hematocrit 35.7 L Hemoglobin 11.8 L INR International Normalized Ratio 1.07 Lymphocytes # 1.0 Lymphocytes % 23.1 Mean Corpuscular Hemoglobin 29.4 Mean Corpuscular Hemoglobin Concent 33.1 Mean Corpuscular Volume 88.9 Mean Platelet Volume 10.5 H Monocytes # 0.6 Monocytes % 14.7 H Neutrophils # 2.3 Neutrophils % 53.3 Nucleated Red Blood Cells # 0.0 Nucleated Red Blood Cells % 0.0 Platelet Count 250 Potassium Level 3.5 Prothrombin Time 13.9 # Prothrombin Time Ratio 1.1 Red Blood Count 4.01 L Red Cell Distribution Width 14.6 H Sodium Level 139 White Blood Count 4.3 #L Medications Medications Current Medications Lorazepam (Ativan) 0.5 mg Q6H PRN IV ANXIETY Last administered on 09/27/16 10: 59; Admin Dose 0.5 MG; Start 09/15/16 at 18:00 Ondansetron HCl (Zofran Inj) 4 mg Q6H PRN IV NAUSEA AND/OR VOMITING; Start at 18:00 Morphine Sulfate (morphine) 2 mg Q4H PRN IV PAIN LEVEL 7-10 Last administered on 09/22/16 01:30; Admin Dose 2 MG; Start 09/15/16 at 18:00 Haloperidol 5 mg 5 mg Q6H PRN IM AGITATION Last administered on 09/19/16at 10: 40; Admin Dose 5 MG; Start 09/18/16 at 11:30 Propofol (Diprivan) 100 ml @ 3.105 mls/ hr Q12H IV Last administered on 09:45; Admin Dose 9.3153 MLS/HR; Start 09/19/16 at 13:30 Famotidine 20 mg 20 mg BID IV Last administered on 10/01/16 09:45; Admin Dose 20 MG; Start 09/19/16 at 21:00 Fentanyl/Dextrose (D5W) 100 ml @ 2.5 mls/hr TITRATE IV Last administered on 03:14; Admin Dose 5 MLS/HR; Start 09/23/16 at 10:00 Miscellaneous Information 1 ea NOTE XX ; Start 09/23/16 at 13:30 Glucose (Glutose) 15 gm Q15M PRN PO DECREASED GLUCOSE; Start 09/23/16 at 13:30 Glucose (Glutose) 22.5 gm Q15M PRN PO DECREASED GLUCOSE; Start 09/23/16 at 13:30 Dextrose (D50w Syringe) 25 ml Q15M PRN IV DECREASED GLUCOSE Last administered on 10/01/16 00:02; Admin Dose 25 ML; Start 09/23/16 at 13:30 Dextrose (D50w Syringe) 50 ml Q15M PRN IV DECREASED GLUCOSE; Start 09/23/16 at 13:30 Glucagon (Glucagen) 1 mg Q15M PRN IM DECREASED GLUCOSE; Start 09/23/16 at 13:30 Glucose 15 gm 15 gm Q15M PRN BUCCAL DECREASED GLUCOSE; Start 09/23/16 at 13:30 Dextrose/Sodium Chloride (D5-NS) 1,000 ml @ 50 mls/hr Q20H IV Last administered on 10/01/16 03:14; Admin Dose 50 MLS/HR; Start 09/23/16 at 16:30 Metoclopramide HCl 10 mg 10 mg Q12 IV Last administered on 10/01/16 09:45; Admin Dose 10 MG; Start 09/24/16 at 11:30 Midazolam HCl/ Dextrose (Versed/D5W) 50 ml @ 2 mls/hr TITRATE IV Last administered on 10/01/16 03:13; Admin Dose 3 MLS/HR; Start 09/25/16 at 12:00 Insulin Aspart NOVOLOG *MODERATE* ALGORI... Q6 SC ; Start 09/25/16 at 18:00 Vancomycin HCl/ Sodium Chloride (Vancocin/NS) 250 ml @ 83.333 mls/ hr Q12H IVPB Last administered on 10/01/16 03:14; Admin Dose 83.333 MLS/HR; Start 09/28 at 15:00 Acetaminophen (Tylenol Liquid) 650 mg Q4H PRN NGT PAIN AND OR ELEVATED TEMP Last administered on 09/30/16 04:01; Admin Dose 650 MG; Start 09/28/16 at 13:30 Lisinopril 2.5 mg 2.5 mg BID GTB Last administered on 10/01/16 09:46; Admin Dose 2.5 MG; Start 09/29/16 at 21:00 Piperacillin Sod/ Tazobactam Sod (Zosyn 3.375gm/ 100 ml (Pmx)) 100 ml @ 200 mls /hr Q6 IVPB Last administered on 10/01/16 05:42; Admin Dose 200 MLS/HR; Start 09/29/16 at 17:00 Enoxaparin Sodium 100 mg 100 mg Q12 SC ; Start 10/01/16 at 21:00 Norepinephrine (Levophed) 250 ml @ 1.875 mls/ hr TITRATE IV ; Start 09/30/16 at 19:00 CECY BELTRAN Oct 01, 2016 12:08
--- NOTE | 2016-10-01 12:12 | RADRPT ---
PROCEDURE: US guided right thoracentesis. CLINICAL INDICATION: Shortness of breath. Right pleural effusion. TECHNIQUE: Prior to the procedure, informed consent was obtained. The risks, benefits, and alternatives known by the referring physician. The patient there is unable to give consent and there is no patient fam hemal able to give consent. Risks include but are not limited to bleeding, infection, pain, visceral o r vascular damage, shock, pneumothorax, chest tube placement, air embolism, and . A procedural pause was performed. The patient's name, date of , and procedure to be performed were verified. Ultrasound of the right hemithorax was performed in the axial and sagittal planes. A right pleural e ffusion is noted. Utilizing ultrasound guidance, optimal location for entry to the pleural cavity wa s ascertained. The overlying skin was prepped and draped in the usual sterile fashion. Approximate ly 10 ml of 1% Xylocaine was injected locally for pain control. Using ultrasound guidance, a 5-Fren ch Yueh catheter was introduced into the right pleural space without difficulty. Fluid was aspirated . COMPARISON: None. FINDINGS: Initial ultrasound demonstrates fluid in the right pleural space. Approximately 1.35 liters of sero us fluid was aspirated and sent to the laboratory. IMPRESSION: 1. Satisfactory ultrasound-guided right thoracentesis. RPTAT: QQ .Zack Gonsalez MD, Date Time Electronically viewed and signed by .Zack Gonsalez MD, on 10/01/2016 12:12 .R/
--- NOTE | 2016-10-01 12:47 | RADRPT ---
PROCEDURE: XR Chest. CLINICAL INDICATION: Shortness of breath. TECHNIQUE: Single frontal view. COMPARISON: 10/01/2016. 0604 hours. FINDINGS: The endotracheal tube, nasogastric tube, and left subclavian vein catheter remain in satisfactory po sition. Pulmonary edema or bilateral pneumonia is unchanged. The heart is enlarged. There are small bilateral pleural effusions. Previously noted right pleural effusion is now much sma ller. There is no pneumothorax. IMPRESSION: 1. No pneumothorax following right thoracentesis. 2. No other change from the prior study done earlier the same day. RPTAT: QQ .Zack Gonsalez MD, MD Date Time Electronically viewed and signed by .Zack Gonsalez MD, MD on 10/01/2016 12:46 .R/
[2016-10-01 12:58] LABS: FLUID TYPE PLEURAL FLUID
[2016-10-01 13:00] LABS: FLUID TOTAL PROTEIN 2.8 g/dl
--- NOTE | 2016-10-01 14:06 | RADRPT ---
PROCEDURE: US Lower extremity Venous. CLINICAL INDICATION: Bilateral lower extremity swelling TECHNIQUE: Multiple sonographic images of the bilateral lower extremity deep venous system was obt ained utilizing grayscale, color-flow, compressive sonography and doppler imaging with augmentation. The images were reviewed on a PACS workstation. COMPARISON: None. FINDINGS: There is normal compressibility and flow within the bilateral common femoral, superficial femoral , posterior tibial and popliteal veins. The right peroneal vein is patent. The left peroneal vein is not compressible, consistent with DVT. RPTAT: AA IMPRESSION: DVT of the left peroneal vein. A call report was made and the findings discussed with Asa Goff's office staff Geeta at 10/01 2:02:47 PM. .Ricky Hunt MD, Date Time Electronically viewed and signed by .Ricky Hunt MD, on 10/01/2016 14:05 .S/
[2016-10-01 14:19] LABS: FLUID EOSINOPHIL 4 %; FLUID LYMPHOCYTES 33 %; FLUID MONOCYTES 45 %; FLUID NEUTROPHILS 18 %
[2016-10-01 14:20] LABS: FLUID APPEARANCE HAZY; FLUID TYPE THORACENTHESIS; FLUID WBC'S 754 /cmm
[2016-10-01 14:22] LABS: FLUID RBC EST 2+
--- NOTE | 2016-10-01 14:29 | RADRPT ---
PROCEDURE: US upper extremity Venous. CLINICAL INDICATION: Bilateral arm swelling TECHNIQUE: Multiple sonographic images of the bilateral upper extremity venous system was obtained utilizing grayscale, color-flow, compressive sonography and doppler imaging with augmentation. The images were reviewed on a PACS workstation. COMPARISON: None. FINDINGS: There is normal compressibility and flow within the bilateral internal jugular vein, subclavian vein , axillary vein, brachial, basilic, , radial and ulnar veins. The right cephalic vein is not compressible from the upper arm into the antecubital region, consiste nt with thrombosis. The left cephalic vein is patent. RPTAT: AA IMPRESSION: Right cephalic vein thrombosis. .Ricky Hunt MD, MD Date Time Electronically viewed and signed by .iRcky Hunt MD, on 10/01/2016 14:29 .S/
--- NOTE | 2016-10-01 14:41 | CONS ---
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 Consultation Date/Type/Reason Admit Date/Time Sep 15, 2016 at 16:54 Initial Consult Date 09/29/16 Type of Consultation: cv Referring Provider: JAN HZANG 24 HR Interval Summary Free Text/Dictation Patient status post thoracentesis Exam/Review of Systems Vital Signs Vitals Vital Signs Date Time Temp Pulse Resp B/P Pulse Ox O2 Delivery O2 Flow Rate FiO2 10/01/16 13:21 82 16 98 40 10/01/16 10:00 109/75 Mechanical Ventilator 10/01/16 08:00 97.5 Intake and Output 09/30/16 09/30/16 10/01/16 15:00 23:00 07:00 Intake Total 1161.140 ml 972.230 ml 1110 ml Output Total 475 ml 335 ml 185 ml Balance 686.140 ml 637.230 ml 925 ml Exam Sedated and intubated Head: normocephalic ENMT: intubated Neck: supple Respiratory: other (course breath sounds bilaterally, no wheezing) Cardiovascular: other (S1-S2 heard), regular rate and rhythm Gastrointestinal: bowel sounds, non-tender, soft Extremities: edema Results Result Diagram: 10/01/16 0500 10/01/16 0500 Results 24 hrs Laboratory Tests Test 09/30/16 18:08 09/30/16 23:42 10/01/16 01:20 10/01/16 05:00 Bedside Glucose 99 68 L 93 Activated Partial Thromboplast Time 35.5 H Anion Gap 9 Basophils # 0.0 Basophils % 0.6 Blood Morphology Comment Blood Urea Nitrogen 18 Calcium Level 7.3 L Carbon Dioxide Level 35 H Chloride Level 99 Creatinine 0.82 Eosinophils # 0.4 Eosinophils % 8.3 H Glucose Level 85 Hematocrit 35.7 L Hemoglobin 11.8 L INR International Normalized Ratio 1.07 Lymphocytes # 1.0 Lymphocytes % 23.1 Mean Corpuscular Hemoglobin 29.4 Mean Corpuscular Hemoglobin Concent 33.1 Mean Corpuscular Volume 88.9 Mean Platelet Volume 10.5 H Monocytes # 0.6 Monocytes % 14.7 H Neutrophils # 2.3 Neutrophils % 53.3 Nucleated Red Blood Cells # 0.0 Nucleated Red Blood Cells % 0.0 Platelet Count 250 Potassium Level 3.5 Prothrombin Time 13.9 # Prothrombin Time Ratio 1.1 Red Blood Count 4.01 L Red Cell Distribution Width 14.6 H Sodium Level 139 White Blood Count 4.3 #L Test 10/01/16 05:38 10/01/16 09:00 10/01/16 11:51 Bedside Glucose 95 111 Body Fluid Appearance HAZY Body Fluid Color AMBIKA Body Fluid Eosinophils % 4 Body Fluid Glucose 85 Body Fluid Lactate Dehydrogenase Body Fluid Lymphocytes (%) 33 Body Fluid Monocytes % 45 Body Fluid Neutrophils % 18 Body Fluid RBC 2+ Body Fluid Total Protein 2.8 Body Fluid Type THORACENTHESIS Body Fluid Volume 1000.0 Body Fluid WBC 754 Medications Medications Current Medications Lorazepam (Ativan) 0.5 mg Q6H PRN IV ANXIETY Last administered on 09/27/16 10: 59; Admin Dose 0.5 MG; Start 09/15/16 at 18:00 Ondansetron HCl (Zofran Inj) 4 mg Q6H PRN IV NAUSEA AND/OR VOMITING; Start at 18:00 Morphine Sulfate (morphine) 2 mg Q4H PRN IV PAIN LEVEL 7-10 Last administered on 09/22/16 01:30; Admin Dose 2 MG; Start 09/15/16 at 18:00 Haloperidol 5 mg 5 mg Q6H PRN IM AGITATION Last administered on 09/19/16at 10: 40; Admin Dose 5 MG; Start 09/18/16 at 11:30 Propofol (Diprivan) 100 ml @ 3.105 mls/ hr Q12H IV Last administered on 09:45; Admin Dose 9.3153 MLS/HR; Start 09/19/16 at 13:30 Famotidine 20 mg 20 mg BID IV Last administered on 10/01/16 09:45; Admin Dose 20 MG; Start 09/19/16 at 21:00 Fentanyl/Dextrose (D5W) 100 ml @ 2.5 mls/hr TITRATE IV Last administered on 03:14; Admin Dose 5 MLS/HR; Start 09/23/16 at 10:00 Miscellaneous Information 1 ea NOTE XX ; Start 09/23/16 at 13:30 Glucose (Glutose) 15 gm Q15M PRN PO DECREASED GLUCOSE; Start 09/23/16 at 13:30 Glucose (Glutose) 22.5 gm Q15M PRN PO DECREASED GLUCOSE; Start 09/23/16 at 13:30 Dextrose (D50w Syringe) 25 ml Q15M PRN IV DECREASED GLUCOSE Last administered on 10/01/16 00:02; Admin Dose 25 ML; Start 09/23/16 at 13:30 Dextrose (D50w Syringe) 50 ml Q15M PRN IV DECREASED GLUCOSE; Start 09/23/16 at 13:30 Glucagon (Glucagen) 1 mg Q15M PRN IM DECREASED GLUCOSE; Start 09/23/16 at 13:30 Glucose 15 gm 15 gm Q15M PRN BUCCAL DECREASED GLUCOSE; Start 09/23/16 at 13:30 Dextrose/Sodium Chloride (D5-NS) 1,000 ml @ 50 mls/hr Q20H IV Last administered on 10/01/16 03:14; Admin Dose 50 MLS/HR; Start 09/23/16 at 16:30 Metoclopramide HCl 10 mg 10 mg Q12 IV Last administered on 10/01/16 09:45; Admin Dose 10 MG; Start 09/24/16 at 11:30 Midazolam HCl/ Dextrose (Versed/D5W) 50 ml @ 2 mls/hr TITRATE IV Last administered on 10/01/16 03:13; Admin Dose 3 MLS/HR; Start 09/25/16 at 12:00 Insulin Aspart NOVOLOG *MODERATE* ALGORI... Q6 SC ; Start 09/25/16 at 18:00 Vancomycin HCl/ Sodium Chloride (Vancocin/NS) 250 ml @ 83.333 mls/ hr Q12H IVPB Last administered on 10/01/16 03:14; Admin Dose 83.333 MLS/HR; Start 09/28 at 15:00 Acetaminophen (Tylenol Liquid) 650 mg Q4H PRN NGT PAIN AND OR ELEVATED TEMP Last administered on 10/01/16 11:52; Admin Dose 650 MG; Start 09/28/16 at 13:30 Lisinopril 2.5 mg 2.5 mg BID GTB Last administered on 10/01/16 09:46; Admin Dose 2.5 MG; Start 09/29/16 at 21:00 Piperacillin Sod/ Tazobactam Sod (Zosyn 3.375gm/ 100 ml (Pmx)) 100 ml @ 200 mls /hr Q6 IVPB Last administered on 10/01/16 11:46; Admin Dose 200 MLS/HR; Start 09/29/16 at 17:00 Enoxaparin Sodium 100 mg 100 mg Q12 SC ; Start 10/01/16 at 21:00 Norepinephrine (Levophed) 250 ml @ 1.875 mls/ hr TITRATE IV ; Start 09/30/16 at 19:00 Nikolay Luna DO Oct 01, 2016 14:41
--- NOTE | 2016-10-01 16:05 | CONS ---
Date/Time of Note Date/Time of Note DATE: 10/01/16 TIME: 15:59 Assessment/Plan Assessment/Plan Additional Assessment/Plan assessment/impression - PNA with parapneumonic effusion. Could be started as CAP, other considerations include aspiration PNA - recurrent pleural effusion. s/p diagnostic thoracentesis on 09/22/2016. It showed glu=74 pro <2, [id number]. No malignancy on cytology. 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 Acute hepatitis panel negative recommendations - f/u cocci and cxs- final afb sputum- per emr--in progress - I recommend continuing IV vancomycin (09/19/2016-) and pip/tazo (09/29/2016-) to cover pneumonia with parapneumonic effusion. Consultation Date/Type/Reason Admit Date/Time Sep 15, 2016 at 16:54 Initial Consult Date 09/29/16 Type of Consultation: cv Referring Provider: JAN ZHANG Exam/Review of Systems Vital Signs Vitals Vital Signs Date Time Temp Pulse Resp B/P Pulse Ox O2 Delivery O2 Flow Rate FiO2 10/01/16 15:36 77 16 98 40 10/01/16 10:00 109/75 Mechanical Ventilator 10/01/16 08:00 97.5 Intake and Output 09/30/16 09/30/16 10/01/16 15:00 23:00 07:00 Intake Total 1161.140 ml 972.230 ml 1110 ml Output Total 475 ml 335 ml 185 ml Balance 686.140 ml 637.230 ml 925 ml Exam Constitutional: other (intubated and sedated) Psych: nl mood/affect, no complaints Head: atraumatic, normocephalic Eyes: EOMI, PERRL, nl conjunctiva, nl lids, nl sclera Respiratory: clear to auscultation Cardiovascular: regular rate and rhythm Gastrointestinal: non-tender, soft Results Result Diagram: 10/01/16 0500 10/01/16 0500 Results 24 hrs Laboratory Tests Test 09/30/16 18:08 09/30/16 23:42 10/01/16 01:20 10/01/16 05:00 Bedside Glucose 99 68 L 93 Activated Partial Thromboplast Time 35.5 H Anion Gap 9 Basophils # 0.0 Basophils % 0.6 Blood Morphology Comment Blood Urea Nitrogen 18 Calcium Level 7.3 L Carbon Dioxide Level 35 H Chloride Level 99 Creatinine 0.82 Eosinophils # 0.4 Eosinophils % 8.3 H Glucose Level 85 Hematocrit 35.7 L Hemoglobin 11.8 L INR International Normalized Ratio 1.07 Lymphocytes # 1.0 Lymphocytes % 23.1 Mean Corpuscular Hemoglobin 29.4 Mean Corpuscular Hemoglobin Concent 33.1 Mean Corpuscular Volume 88.9 Mean Platelet Volume 10.5 H Monocytes # 0.6 Monocytes % 14.7 H Neutrophils # 2.3 Neutrophils % 53.3 Nucleated Red Blood Cells # 0.0 Nucleated Red Blood Cells % 0.0 Platelet Count 250 Potassium Level 3.5 Prothrombin Time 13.9 # Prothrombin Time Ratio 1.1 Red Blood Count 4.01 L Red Cell Distribution Width 14.6 H Sodium Level 139 White Blood Count 4.3 #L Test 10/01/16 05:38 10/01/16 09:00 10/01/16 11:51 Bedside Glucose 95 111 Body Fluid Appearance HAZY Body Fluid Color AMBIKA Body Fluid Eosinophils % 4 Body Fluid Glucose 85 Body Fluid Lactate Dehydrogenase Body Fluid Lymphocytes (%) 33 Body Fluid Monocytes % 45 Body Fluid Neutrophils % 18 Body Fluid RBC 2+ Body Fluid Total Protein 2.8 Body Fluid Type THORACENTHESIS Body Fluid Volume 1000.0 Body Fluid WBC 754 Medications Medications Current Medications Lorazepam (Ativan) 0.5 mg Q6H PRN IV ANXIETY Last administered on 09/27/16 10: 59; Admin Dose 0.5 MG; Start 09/15/16 at 18:00 Ondansetron HCl (Zofran Inj) 4 mg Q6H PRN IV NAUSEA AND/OR VOMITING; Start at 18:00 Morphine Sulfate (morphine) 2 mg Q4H PRN IV PAIN LEVEL 7-10 Last administered on 09/22/16 01:30; Admin Dose 2 MG; Start 09/15/16 at 18:00 Haloperidol 5 mg 5 mg Q6H PRN IM AGITATION Last administered on 09/19/16at 10: 40; Admin Dose 5 MG; Start 09/18/16 at 11:30 Propofol (Diprivan) 100 ml @ 3.105 mls/ hr Q12H IV Last administered on 09:45; Admin Dose 9.3153 MLS/HR; Start 09/19/16 at 13:30 Famotidine 20 mg 20 mg BID IV Last administered on 10/01/16 09:45; Admin Dose 20 MG; Start 09/19/16 at 21:00 Fentanyl/Dextrose (D5W) 100 ml @ 2.5 mls/hr TITRATE IV Last administered on 03:14; Admin Dose 5 MLS/HR; Start 09/23/16 at 10:00 Miscellaneous Information 1 ea NOTE XX ; Start 09/23/16 at 13:30 Glucose (Glutose) 15 gm Q15M PRN PO DECREASED GLUCOSE; Start 09/23/16 at 13:30 Glucose (Glutose) 22.5 gm Q15M PRN PO DECREASED GLUCOSE; Start 09/23/16 at 13:30 Dextrose (D50w Syringe) 25 ml Q15M PRN IV DECREASED GLUCOSE Last administered on 10/01/16 00:02; Admin Dose 25 ML; Start 09/23/16 at 13:30 Dextrose (D50w Syringe) 50 ml Q15M PRN IV DECREASED GLUCOSE; Start 09/23/16 at 13:30 Glucagon (Glucagen) 1 mg Q15M PRN IM DECREASED GLUCOSE; Start 09/23/16 at 13:30 Glucose 15 gm 15 gm Q15M PRN BUCCAL DECREASED GLUCOSE; Start 09/23/16 at 13:30 Dextrose/Sodium Chloride (D5-NS) 1,000 ml @ 50 mls/hr Q20H IV Last administered on 10/01/16 03:14; Admin Dose 50 MLS/HR; Start 09/23/16 at 16:30 Metoclopramide HCl 10 mg 10 mg Q12 IV Last administered on 10/01/16 09:45; Admin Dose 10 MG; Start 09/24/16 at 11:30 Midazolam HCl/ Dextrose (Versed/D5W) 50 ml @ 2 mls/hr TITRATE IV Last administered on 10/01/16 14:51; Admin Dose 3 MLS/HR; Start 09/25/16 at 12:00 Insulin Aspart NOVOLOG *MODERATE* ALGORI... Q6 SC ; Start 09/25/16 at 18:00 Vancomycin HCl/ Sodium Chloride (Vancocin/NS) 250 ml @ 83.333 mls/ hr Q12H IVPB Last administered on 10/01/16 14:46; Admin Dose 83.333 MLS/HR; Start 09/28 at 15:00 Acetaminophen 650 mg 650 mg Q4H PRN NGT PAIN AND OR ELEVATED TEMP Last administered on 10/01/16 11:52; Admin Dose 650 MG; Start 09/28/16 at 13:30 Piperacillin Sod/ Tazobactam Sod (Zosyn 3.375gm/ 100 ml (Pmx)) 100 ml @ 200 mls /hr Q6 IVPB Last administered on 10/01/16 11:46; Admin Dose 200 MLS/HR; Start 09/29/16 at 17:00 Enoxaparin Sodium 100 mg 100 mg Q12 SC ; Start 10/01/16 at 21:00 Norepinephrine (Levophed) 250 ml @ 1.875 mls/ hr TITRATE IV ; Start 09/30/16 at 19:00 Lisinopril (Zestril) 2.5 mg DAILY GTB ; Start 10/02/16 at 09:00 DYLLAN PULIDO MD Oct 01, 2016 16:04
--- NOTE | 2016-10-01 18:28 | PN ---
Date/Time of Note Date/Time of Note DATE: 10/01/16 TIME: 18:27 Assessment/Plan Lines/Catheters IV Catheter Type (from Nrsg): Central Line Tang in Place (from Nrsg): Yes Assessment/Plan Chief Complaint/Hosp Course IMPRESSION 1. Pulmonary embolism. 2. Pneumonia. 3 Pleural effusion RECOMMENDATIONS: We will monitor the pleural effusion. Thorocentesis prn Anticoagulation . . Discussed with the nursing staff. Problems: Subjective 24 Hr Interval Summary Constitutional: improved Pain Control: mild Exam/Review of Systems Vital Signs Vitals Vital Signs Date Time Temp Pulse Resp B/P Pulse Ox O2 Delivery O2 Flow Rate FiO2 10/01/16 17:55 87 16 100 40 10/01/16 16:30 104/68 10/01/16 16:00 99.2 Mechanical Ventilator Intake and Output 09/30/16 09/30/16 10/01/16 15:00 23:00 07:00 Intake Total 1161.140 ml 972.230 ml 1110 ml Output Total 475 ml 335 ml 185 ml Balance 686.140 ml 637.230 ml 925 ml Exam Neck: non-tender, supple Respiratory: clear to auscultation, normal air movement Cardiovascular: nl pulses, regular rate and rhythm Gastrointestinal: nl liver, spleen, non-tender, soft Results Result Diagram: 10/01/16 0500 10/01/16 0500 YOUNG HAY MD Oct 01, 2016 18:27
[2016-10-01] MEDS: ENOXAPARIN 100 MG/ML SYG SC SCH (21:44)
[2016-10-02] VITALS (96 sets, daily range): BP systolic 83–138; BP diastolic 51–107; PULSE 69–140; RESP 15–40
[2016-10-02] MEDS: ACETAMINOPHEN 650MG/20.3ML CUP NGT PRN (00:50)
[2016-10-02] MEDS: VANCOMYCIN 1.25 GM in SOD CHLORIDE 0.9% 250 ML IVPB SCH ×2 (02:51→15:30)
[2016-10-02 05:45] LABS: BASOPHILS % 0.2 % (0.0-2.0); EOSINOPHILS # 0.3 10^3/ul (0.0-0.5); EOSINOPHILS % 7.7 % (0.0-7.0); HEMOGLOBIN 11.4 g/dl (14.0-18.0); LYMPHOCYTES # 1.2 10^3/ul (0.8-2.9); LYMPHOCYTES % 26.6 % (15.0-51.0); MEAN CORPUSCULAR HEMOGLOBIN 29.1 pg (29.0-33.0); MEAN CORPUSCULAR HGB CONC 32.5 g/dl (32.0-37.0); MEAN CORPUSCULAR VOLUME 89.5 fl (82.0-101.0); MEAN PLATELET VOLUME 10.8 fl (7.4-10.4); MONOCYTE # 0.5 10^3/ul (0.3-0.9); MONOCYTES % 12.5 % (0.0-11.0); NEUTROPHIL # 2.3 10^3/ul (1.6-7.5); PLATELET COUNT 248 10^3/UL (140-440); RED CELL DISTRIBUTION WIDTH 14.9 % (11.5-14.5); UNCORRECTED WBC 4.4 10^3/ul (4.8-10.8); WHITE BLOOD COUNT 4.4 10^3/ul (4.8-10.8)
[2016-10-02 05:50] LABS: POTASSIUM 3.3 mmol/L (3.5-5.1)
[2016-10-02 05:52] LABS: CREATININE 0.78 mg/dl (0.61-1.24)
[2016-10-02 05:53] LABS: CALCIUM 7.5 mg/dl (8.4-10.2); PHOSPHORUS 3.5 mg/dl (2.5-4.9)
[2016-10-02] MEDS: PIPER-TAZO 3.375 GM IV (PMX) 100 ML IVPB SCH ×3 (05:53→17:36)
[2016-10-02] MEDS: FUROSEMIDE 40 MG INJ IV SCH ×2 (05:53→17:34)
[2016-10-02 05:54] LABS: MAGNESIUM 1.9 mg/dl (1.7-2.5)
[2016-10-02] MEDS: PROPOFOL 100 ML IV SCH ×3 (05:54→22:56)
[2016-10-02 05:55] LABS: CONDITION 1; LH ANALYZER COMMENTS 1
[2016-10-02] MEDS: INSULIN ASPART [NOVOLOG] 3 ML PEN SC SCH ×3 (05:55→17:42)
[2016-10-02] MEDS: MIDAZOLAM 50 MG in DEXTROSE 5% 40 ML IV SCH ×2 (06:06→15:22)
--- NOTE | 2016-10-02 08:51 | RADRPT ---
PROCEDURE: XR Chest. CLINICAL INDICATION: Shortness of breath TECHNIQUE: Single view of the chest COMPARISON: Chest radiograph February 27, 2012, 20:17 FINDINGS: The tip of the endotracheal tube is 3.8 cm above the ida. Enteric tube courses below the diaphra gm in the field of view. There is a left subclavian line with its tip at the mid SVC. There is vascular congestion with small to moderate bilateral pleural effusions, right greater than left, progressed from prior. Cardiac silhouette is enlarged. There is no pneumothorax. There is no acute osseous abnormality. IMPRESSION: 1. Pulmonary vascular congestion with small to moderate bilateral pleural effusions, right greater than left, progressed from prior. 2. Enlarged cardiac silhouette. 3. Lines and tubes as above. RPTAT: UU .Daryl Severino MD, Date Time Electronically viewed and signed by .Daryl Severino MD, on 10/02/2016 08:51 .K/
[2016-10-02] MEDS: LISINOPRIL 5 MG TAB GTB SCH (09:00)
[2016-10-02] MEDS: METOCLOPRAMIDE 10 MG INJ IV SCH ×2 (09:20→20:33)
[2016-10-02] MEDS: FAMOTIDINE 20 MG INJ IV SCH ×2 (09:20→20:33)
[2016-10-02] MEDS: ENOXAPARIN 100 MG/ML SYG SC SCH ×2 (09:33→20:41)
--- NOTE | 2016-10-02 11:02 | CONS ---
Date/Time of Note Date/Time of Note DATE: 10/02/16 TIME: 11:00 Consult Date/Type/Reason Admit Date/Time Sep 15, 2016 at 16:54 Type of Consultation: pulmonary Ordering Provider: JAN ZHANG Subjective Status post thoracentesis with evidence of fluid reaccumulation Remains hemodynamically stable No new events Objective Vital Signs Date Time Temp Pulse Resp B/P Pulse Ox O2 Delivery O2 Flow Rate FiO2 10/02/16 10:11 100 21 105/81 100 10/02/16 07:45 99.3 Mechanical Ventilator 10/02/16 07:42 40 Intake and Output 10/01/16 10/01/16 10/02/16 15:00 23:00 07:00 Intake Total 1169.9 ml 1067.88 ml 1411.36 ml Output Total 1690 ml 3255 ml 305 ml Balance -520.1 ml -2187.12 ml 1106.36 ml PHYSICAL EXAMINATION GENERAL: Chronically ill gentleman intubated on mechanical ventilation VITAL SIGNS: see below. HEENT: Pupils equal, round, and reactive to light. CARDIAC: S1, S2, CHEST: Diminished air entry bilaterally. ABDOMEN: Mildly distended. Bowel sounds present abdomen mildly distended no guarding or rebound. EXTREMITIES: No cyanosis, clubbing edema +1 NEUROLOGIC: No focal deficits. Results/Medications Result Diagram: 10/02/16 0400 10/02/16 0400 Results 24 hrs Laboratory Tests Test 10/01/16 11:51 10/01/16 17:48 10/01/16 23:51 10/02/16 04:00 Bedside Glucose 111 80 110 Anion Gap 9 Basophils # 0.0 Basophils % 0.2 Blood Morphology Comment Blood Urea Nitrogen 14 Calcium Level 7.5 L Carbon Dioxide Level 35 H Chloride Level 99 Creatinine 0.78 Eosinophils # 0.3 Eosinophils % 7.7 H Glucose Level 93 Hematocrit 35.0 L Hemoglobin 11.4 L Lymphocytes # 1.2 Lymphocytes % 26.6 Magnesium Level 1.9 Mean Corpuscular Hemoglobin 29.1 Mean Corpuscular Hemoglobin Concent 32.5 Mean Corpuscular Volume 89.5 Mean Platelet Volume 10.8 H Monocytes # 0.5 Monocytes % 12.5 H Neutrophils # 2.3 Neutrophils % 53.0 Nucleated Red Blood Cells # 0.0 Nucleated Red Blood Cells % 0.0 Phosphorus Level 3.5 Platelet Count 248 Potassium Level 3.3 L Red Blood Count 3.90 L Red Cell Distribution Width 14.9 H Sodium Level 140 White Blood Count 4.4 L Test 10/02/16 05:55 Bedside Glucose 94 Medications Current Medications Lorazepam (Ativan) 0.5 mg Q6H PRN IV ANXIETY Last administered on 09/27/16 10: 59; Admin Dose 0.5 MG; Start 09/15/16 at 18:00 Ondansetron HCl (Zofran Inj) 4 mg Q6H PRN IV NAUSEA AND/OR VOMITING; Start at 18:00 Morphine Sulfate (morphine) 2 mg Q4H PRN IV PAIN LEVEL 7-10 Last administered on 09/22/16 01:30; Admin Dose 2 MG; Start 09/15/16 at 18:00 Haloperidol 5 mg 5 mg Q6H PRN IM AGITATION Last administered on 09/19/16at 10: 40; Admin Dose 5 MG; Start 09/18/16 at 11:30 Propofol (Diprivan) 100 ml @ 3.105 mls/ hr Q12H IV Last administered on 05:54; Admin Dose 12.42 MLS/HR; Start 09/19/16 at 13:30 Famotidine 20 mg 20 mg BID IV Last administered on 10/02/16 09:20; Admin Dose 20 MG; Start 09/19/16 at 21:00 Fentanyl/Dextrose (D5W) 100 ml @ 2.5 mls/hr TITRATE IV Last administered on 19:23; Admin Dose 5 MLS/HR; Start 09/23/16 at 10:00 Miscellaneous Information 1 ea NOTE XX ; Start 09/23/16 at 13:30 Glucose (Glutose) 15 gm Q15M PRN PO DECREASED GLUCOSE; Start 09/23/16 at 13:30 Glucose (Glutose) 22.5 gm Q15M PRN PO DECREASED GLUCOSE; Start 09/23/16 at 13:30 Dextrose (D50w Syringe) 25 ml Q15M PRN IV DECREASED GLUCOSE Last administered on 10/01/16 00:02; Admin Dose 25 ML; Start 09/23/16 at 13:30 Dextrose (D50w Syringe) 50 ml Q15M PRN IV DECREASED GLUCOSE; Start 09/23/16 at 13:30 Glucagon (Glucagen) 1 mg Q15M PRN IM DECREASED GLUCOSE; Start 09/23/16 at 13:30 Glucose 15 gm 15 gm Q15M PRN BUCCAL DECREASED GLUCOSE; Start 09/23/16 at 13:30 Dextrose/Sodium Chloride (D5-NS) 1,000 ml @ 50 mls/hr Q20H IV Last administered on 10/01/16 23:52; Admin Dose 50 MLS/HR; Start 09/23/16 at 16:30 Metoclopramide HCl 10 mg 10 mg Q12 IV Last administered on 10/02/16 09:20; Admin Dose 10 MG; Start 09/24/16 at 11:30 Midazolam HCl/ Dextrose (Versed/D5W) 50 ml @ 2 mls/hr TITRATE IV Last administered on 10/02/16 06:06; Admin Dose 3 MLS/HR; Start 09/25/16 at 12:00 Insulin Aspart NOVOLOG *MODERATE* ALGORI... Q6 SC ; Start 09/25/16 at 18:00 Vancomycin HCl/ Sodium Chloride (Vancocin/NS) 250 ml @ 83.333 mls/ hr Q12H IVPB Last administered on 10/02/16 02:51; Admin Dose 83.333 MLS/HR; Start 09/28 at 15:00 Acetaminophen 650 mg 650 mg Q4H PRN NGT PAIN AND OR ELEVATED TEMP Last administered on 10/02/16 00:50; Admin Dose 650 MG; Start 09/28/16 at 13:30 Piperacillin Sod/ Tazobactam Sod (Zosyn 3.375gm/ 100 ml (Pmx)) 100 ml @ 200 mls /hr Q6 IVPB Last administered on 10/02/16 05:53; Admin Dose 200 MLS/HR; Start 09/29/16 at 17:00 Enoxaparin Sodium 100 mg 100 mg Q12 SC Last administered on 10/02/16 09:33; Admin Dose 100 MG; Start 10/01/16 at 21:00 Norepinephrine (Levophed) 250 ml @ 1.875 mls/ hr TITRATE IV ; Start 09/30/16 at 19:00 Lisinopril (Zestril) 2.5 mg DAILY GTB ; Start 10/02/16 at 09:00 Assessment/Plan Chief Complaint/Hosp Course IMPRESSION: 1. Hypoxemic respiratory failure/vent dependence 2. Right sided pneumonia with complicated parapneumonic effusion s/p thoracentesis, repeat thoracentesis however x-ray shows reaccumulation. 3. Acute pulmonary emboli 4. Encephalopathy, likely toxic metabolic. 5. Transaminitis 6. FEN- Increased Na+ PLAN: 1. Recurrent right pleural effusion. Repeat pleural fluid studies. May require VATS pleurodesis. 2. check cocci serologies/TB quant gold, respiratory isolation, ID recommendations 3. continue lovenox 4. Continue Free H20 5 IV fluids per primary team Problems: AMAN[facility] STONE [facility], [facility] Oct 02, 2016 11:02
--- NOTE | 2016-10-02 12:26 | CONS ---
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 Consultation Date/Type/Reason Admit Date/Time Sep 15, 2016 at 16:54 Initial Consult Date 09/29/16 Type of Consultation: cv Referring Provider: JAN ZHANG 24 HR Interval Summary Free Text/Dictation Patient status post thoracentesis, undergoing weaning trials currently Exam/Review of Systems Vital Signs Vitals Vital Signs Date Time Temp Pulse Resp B/P Pulse Ox O2 Delivery O2 Flow Rate FiO2 10/02/16 12:00 103 10/02/16 11:50 40 10/02/16 11:45 33 137/97 93 10/02/16 07:45 99.3 Mechanical Ventilator Intake and Output 10/01/16 10/01/16 10/02/16 15:00 23:00 07:00 Intake Total 1169.9 ml 1067.88 ml 1411.36 ml Output Total 1690 ml 3255 ml 305 ml Balance -520.1 ml -2187.12 ml 1106.36 ml Exam More awake, no apparent distress, undergoing weaning trials Head: normocephalic ENMT: intubated Respiratory: other (course breath sounds bilaterally, no wheezing) Cardiovascular: other (S1 and S2 heard), regular rate and rhythm Gastrointestinal: bowel sounds, non-tender, soft Extremities: edema Results Result Diagram: 10/02/16 0400 10/02/16 0400 Results 24 hrs Laboratory Tests Test 10/01/16 17:48 10/01/16 23:51 10/02/16 04:00 10/02/16 05:55 Bedside Glucose 80 110 94 Anion Gap 9 Basophils # 0.0 Basophils % 0.2 Blood Morphology Comment Blood Urea Nitrogen 14 Calcium Level 7.5 L Carbon Dioxide Level 35 H Chloride Level 99 Creatinine 0.78 Eosinophils # 0.3 Eosinophils % 7.7 H Glucose Level 93 Hematocrit 35.0 L Hemoglobin 11.4 L Lymphocytes # 1.2 Lymphocytes % 26.6 Magnesium Level 1.9 Mean Corpuscular Hemoglobin 29.1 Mean Corpuscular Hemoglobin Concent 32.5 Mean Corpuscular Volume 89.5 Mean Platelet Volume 10.8 H Monocytes # 0.5 Monocytes % 12.5 H Neutrophils # 2.3 Neutrophils % 53.0 Nucleated Red Blood Cells # 0.0 Nucleated Red Blood Cells % 0.0 Phosphorus Level 3.5 Platelet Count 248 Potassium Level 3.3 L Red Blood Count 3.90 L Red Cell Distribution Width 14.9 H Sodium Level 140 White Blood Count 4.4 L Medications Medications Current Medications Lorazepam (Ativan) 0.5 mg Q6H PRN IV ANXIETY Last administered on 09/27/16 10: 59; Admin Dose 0.5 MG; Start 09/15/16 at 18:00 Ondansetron HCl (Zofran Inj) 4 mg Q6H PRN IV NAUSEA AND/OR VOMITING; Start at 18:00 Morphine Sulfate (morphine) 2 mg Q4H PRN IV PAIN LEVEL 7-10 Last administered on 09/22/16 01:30; Admin Dose 2 MG; Start 09/15/16 at 18:00 Haloperidol 5 mg 5 mg Q6H PRN IM AGITATION Last administered on 09/19/16at 10: 40; Admin Dose 5 MG; Start 09/18/16 at 11:30 Propofol (Diprivan) 100 ml @ 3.105 mls/ hr Q12H IV Last administered on 05:54; Admin Dose 12.42 MLS/HR; Start 09/19/16 at 13:30 Famotidine 20 mg 20 mg BID IV Last administered on 10/02/16 09:20; Admin Dose 20 MG; Start 09/19/16 at 21:00 Fentanyl/Dextrose (D5W) 100 ml @ 2.5 mls/hr TITRATE IV Last administered on 19:23; Admin Dose 5 MLS/HR; Start 09/23/16 at 10:00 Miscellaneous Information 1 ea NOTE XX ; Start 09/23/16 at 13:30 Glucose (Glutose) 15 gm Q15M PRN PO DECREASED GLUCOSE; Start 09/23/16 at 13:30 Glucose (Glutose) 22.5 gm Q15M PRN PO DECREASED GLUCOSE; Start 09/23/16 at 13:30 Dextrose (D50w Syringe) 25 ml Q15M PRN IV DECREASED GLUCOSE Last administered on 10/01/16 00:02; Admin Dose 25 ML; Start 09/23/16 at 13:30 Dextrose (D50w Syringe) 50 ml Q15M PRN IV DECREASED GLUCOSE; Start 09/23/16 at 13:30 Glucagon (Glucagen) 1 mg Q15M PRN IM DECREASED GLUCOSE; Start 09/23/16 at 13:30 Glucose 15 gm 15 gm Q15M PRN BUCCAL DECREASED GLUCOSE; Start 09/23/16 at 13:30 Dextrose/Sodium Chloride (D5-NS) 1,000 ml @ 50 mls/hr Q20H IV Last administered on 10/01/16 23:52; Admin Dose 50 MLS/HR; Start 09/23/16 at 16:30 Metoclopramide HCl 10 mg 10 mg Q12 IV Last administered on 10/02/16 09:20; Admin Dose 10 MG; Start 09/24/16 at 11:30 Midazolam HCl/ Dextrose (Versed/D5W) 50 ml @ 2 mls/hr TITRATE IV Last administered on 10/02/16 06:06; Admin Dose 3 MLS/HR; Start 09/25/16 at 12:00 Insulin Aspart NOVOLOG *MODERATE* ALGORI... Q6 SC ; Start 09/25/16 at 18:00 Vancomycin HCl/ Sodium Chloride (Vancocin/NS) 250 ml @ 83.333 mls/ hr Q12H IVPB Last administered on 10/02/16 02:51; Admin Dose 83.333 MLS/HR; Start 09/28 at 15:00 Acetaminophen 650 mg 650 mg Q4H PRN NGT PAIN AND OR ELEVATED TEMP Last administered on 10/02/16 00:50; Admin Dose 650 MG; Start 09/28/16 at 13:30 Piperacillin Sod/ Tazobactam Sod (Zosyn 3.375gm/ 100 ml (Pmx)) 100 ml @ 200 mls /hr Q6 IVPB Last administered on 10/02/16 05:53; Admin Dose 200 MLS/HR; Start 09/29/16 at 17:00 Enoxaparin Sodium 100 mg 100 mg Q12 SC Last administered on 10/02/16 09:33; Admin Dose 100 MG; Start 10/01/16 at 21:00 Norepinephrine (Levophed) 250 ml @ 1.875 mls/ hr TITRATE IV ; Start 09/30/16 at 19:00 Lisinopril (Zestril) 2.5 mg DAILY GTB ; Start 10/02/16 at 09:00 Nikolay Luna DO Oct 02, 2016 12:26
[2016-10-02] MEDS ORDERED: MAGNESIUM SULFATE 2 GM/50 ML 50 ML IVPB ONE (12:30)
--- NOTE | 2016-10-02 12:33 | PN ---
Date/Time of Note Date/Time of Note DATE: 10/02/16 TIME: 12:30 Assessment/Plan VTE Prophylaxis VTE Prophylaxis Intervention: SCD's Lines/Catheters IV [facility] Central Line Central line still needed: Yes Urinary Cath still in place: Yes Reason Cath still needed: urinary retention Assessment/Plan Chief Complaint/Hosp Course ASSESSMENT AND PLAN: 1. Acute respiratory failure. Dr. Aquino is following the patient from pulmonology consultation. Continue bronchodilators and vent weaning per pulmonology. 2. Right-sided pneumonia with complicated parapneumonic effusion, status post thoracentesis. Continue patient on vancomycin and cefepime. Dr. Hernandez is following from an Infectious Disease standpoint. 3. Acute pulmonary emboli. Continue patient on Lovenox. 4. 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 Continue patient on Lasix. Dr. Woodard is following from cardiology standpoint. 5. Encephalopathy, likely toxic metabolic. Continue to monitor. 6. 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 Continue Pepcid for peptic ulcer disease prophylaxis. Further recommendations based on clinical course. Plan of care discussed with Dr. Patel. Problems: Subjective 24 Hr Interval Summary Free Text/Dictation Patient is currently undergoing CPAP trial, continues to have low-grade fever, good urine output, patient is on Lasix, patient tolerated G-tube feeding well, G -tube feeding currently on hold due to ventilator weaning. Exam/Review of Systems Vital Signs Vitals Vital Signs Date Time Temp Pulse Resp B/P Pulse Ox O2 Delivery O2 Flow Rate FiO2 10/02/16 12:00 103 10/02/16 11:50 40 10/02/16 11:45 33 137/97 93 10/02/16 07:45 99.3 Mechanical Ventilator Intake and Output 10/01/16 10/01/16 10/02/16 14:59 22:59 06:59 Intake Total 1121.5 ml 1015.86 ml 1353.36 ml Output Total 1655 ml 3190 ml 405 ml Balance -533.5 ml -2174.14 ml 948.36 ml Exam GENERAL: Well-developed, well-nourished male currently sedated, orally intubated on vent. NECK: Supple. No mass, no thyromegaly. LUNGS: Diminished with scattered rhonchi bilaterally. HEART: Normal S1, S2. No murmurs, gallops, clicks, rubs noted. ABDOMEN: Round, soft, nondistended, nontender. Bowel sounds present. EXTREMITIES: No edema, clubbing, cyanosis. Pulses equal bilaterally 2+. SKIN: There is no rash. NEUROLOGIC: The patient is sedated. Results Result Diagram: 10/02/16 0400 10/02/16 0400 Results 24 hrs Laboratory Tests Test 10/01/16 17:48 10/01/16 23:51 10/02/16 04:00 10/02/16 05:55 Bedside Glucose 80 110 94 Anion Gap 9 Basophils # 0.0 Basophils % 0.2 Blood Morphology Comment Blood Urea Nitrogen 14 Calcium Level 7.5 L Carbon Dioxide Level 35 H Chloride Level 99 Creatinine 0.78 Eosinophils # 0.3 Eosinophils % 7.7 H Glucose Level 93 Hematocrit 35.0 L Hemoglobin 11.4 L Lymphocytes # 1.2 Lymphocytes % 26.6 Magnesium Level 1.9 Mean Corpuscular Hemoglobin 29.1 Mean Corpuscular Hemoglobin Concent 32.5 Mean Corpuscular Volume 89.5 Mean Platelet Volume 10.8 H Monocytes # 0.5 Monocytes % 12.5 H Neutrophils # 2.3 Neutrophils % 53.0 Nucleated Red Blood Cells # 0.0 Nucleated Red Blood Cells % 0.0 Phosphorus Level 3.5 Platelet Count 248 Potassium Level 3.3 L Red Blood Count 3.90 L Red Cell Distribution Width 14.9 H Sodium Level 140 White Blood Count 4.4 L Medications Medications Current Medications Lorazepam (Ativan) 0.5 mg Q6H PRN IV ANXIETY Last administered on 09/27/16 10: 59; Admin Dose 0.5 MG; Start 09/15/16 at 18:00 Ondansetron HCl (Zofran Inj) 4 mg Q6H PRN IV NAUSEA AND/OR VOMITING; Start at 18:00 Morphine Sulfate (morphine) 2 mg Q4H PRN IV PAIN LEVEL 7-10 Last administered on 09/22/16 01:30; Admin Dose 2 MG; Start 09/15/16 at 18:00 Haloperidol 5 mg 5 mg Q6H PRN IM AGITATION Last administered on 09/19/16at 10: 40; Admin Dose 5 MG; Start 09/18/16 at 11:30 Propofol (Diprivan) 100 ml @ 3.105 mls/ hr Q12H IV Last administered on 05:54; Admin Dose 12.42 MLS/HR; Start 09/19/16 at 13:30 Famotidine 20 mg 20 mg BID IV Last administered on 10/02/16 09:20; Admin Dose 20 MG; Start 09/19/16 at 21:00 Fentanyl/Dextrose (D5W) 100 ml @ 2.5 mls/hr TITRATE IV Last administered on 19:23; Admin Dose 5 MLS/HR; Start 09/23/16 at 10:00 Miscellaneous Information 1 ea NOTE XX ; Start 09/23/16 at 13:30 Glucose (Glutose) 15 gm Q15M PRN PO DECREASED GLUCOSE; Start 09/23/16 at 13:30 Glucose (Glutose) 22.5 gm Q15M PRN PO DECREASED GLUCOSE; Start 09/23/16 at 13:30 Dextrose (D50w Syringe) 25 ml Q15M PRN IV DECREASED GLUCOSE Last administered on 10/01/16 00:02; Admin Dose 25 ML; Start 09/23/16 at 13:30 Dextrose (D50w Syringe) 50 ml Q15M PRN IV DECREASED GLUCOSE; Start 09/23/16 at 13:30 Glucagon (Glucagen) 1 mg Q15M PRN IM DECREASED GLUCOSE; Start 09/23/16 at 13:30 Glucose 15 gm 15 gm Q15M PRN BUCCAL DECREASED GLUCOSE; Start 09/23/16 at 13:30 Dextrose/Sodium Chloride (D5-NS) 1,000 ml @ 50 mls/hr Q20H IV Last administered on 10/01/16 23:52; Admin Dose 50 MLS/HR; Start 09/23/16 at 16:30 Metoclopramide HCl 10 mg 10 mg Q12 IV Last administered on 10/02/16 09:20; Admin Dose 10 MG; Start 09/24/16 at 11:30 Midazolam HCl/ Dextrose (Versed/D5W) 50 ml @ 2 mls/hr TITRATE IV Last administered on 10/02/16 06:06; Admin Dose 3 MLS/HR; Start 09/25/16 at 12:00 Insulin Aspart NOVOLOG *MODERATE* ALGORI... Q6 SC ; Start 09/25/16 at 18:00 Vancomycin HCl/ Sodium Chloride (Vancocin/NS) 250 ml @ 83.333 mls/ hr Q12H IVPB Last administered on 10/02/16 02:51; Admin Dose 83.333 MLS/HR; Start 09/28 at 15:00 Acetaminophen 650 mg 650 mg Q4H PRN NGT PAIN AND OR ELEVATED TEMP Last administered on 10/02/16 00:50; Admin Dose 650 MG; Start 09/28/16 at 13:30 Piperacillin Sod/ Tazobactam Sod (Zosyn 3.375gm/ 100 ml (Pmx)) 100 ml @ 200 mls /hr Q6 IVPB Last administered on 10/02/16 05:53; Admin Dose 200 MLS/HR; Start 09/29/16 at 17:00 Enoxaparin Sodium 100 mg 100 mg Q12 SC Last administered on 10/02/16 09:33; Admin Dose 100 MG; Start 10/01/16 at 21:00 Norepinephrine (Levophed) 250 ml @ 1.875 mls/ hr TITRATE IV ; Start 09/30/16 at 19:00 Lisinopril 2.5 mg 2.5 mg DAILY GTB ; Start 10/02/16 at 09:00 Magnesium Sulfate (Magnesium Sulfate 2 Gm/50 ml) 50 ml @ 25 mls/hr ONCE ONCE IVPB ; Start 10/02/16 at 12:30; Stop 10/02/16 at 14:29; Status JAN LAWLER Oct 02, 2016 12:33
[2016-10-02] MEDS ORDERED: POTASSIUM CHLORIDE 20 MEQ POWDER FOR ORAL SOLN NGT ONE (13:00)
[2016-10-02] MEDS: FENTAnyl 1,000 MCG in DEXTROSE 5% 80 ML IV SCH (15:25)
--- NOTE | 2016-10-02 15:59 | CONS ---
Date/Time of Note Date/Time of Note DATE: 10/02/16 TIME: 15:55 Assessment/Plan Assessment/Plan Chief Complaint/Hosp Course - Sepsis d/t PNA with parapneumonic effusion. Still with recurrent fevers. - PNA with parapneumonic effusion. Could be started as CAP, other considerations include aspiration PNA - recurrent pleural effusion. s/p diagnostic thoracentesis on 09/22/16. It showed glu=74 pro <2, SOH=4643. No malignancy on cytology. s/p repeat thoracentesis 09/05 - PE - Hypoxemic respiratory failure/vent dependenc - Q TB gold indeterminate status - acute decompensated systolic CHF, biventricular cardiomyopathy - h/o tox screen positive for meth and benzo (per EMR) - transaminitis, possibly chock liver, improving. Acute hepatitis panel negative - mild leukopenia recommendations - f/u cocci serology (pending), AFB smear (negative on 09/29, 09/30 & 10/01) and cxs (pending) - recommend continuing IV vancomycin (09/19/2016-) and pip/tazo (09/29/2016-) to cover pneumonia with parapneumonic effusion - start empiric tamiflu and azithromycin - check rapid influenza screen, PPD, legionella antigen, mycoplasma pneumoniae, chlamydia pneumoniae serology - f/u records from [facility] - continue droplet precautions for now - management d/w [employer]ER - Above d/w Dr. Osullivan - critical care time spent: 50 min Problems: Consultation Date/Type/Reason Admit Date/Time Sep 15, 2016 at 16:54 Initial Consult Date 09/29/16 Type of Consultation: Infectious Disease Reason for Consultation Recurrent fevers Referring Provider: JAN ZHANG 24 HR Interval Summary Free Text/Dictation Failed weaning trial this AM, remains sedated on fentanyl and versed, good urine output on lasix, and pt found to have new stage 2 gluteal decub per RN Jean. Exam/Review of Systems Vital Signs Vitals Vital Signs Date Time Temp Pulse Resp B/P Pulse Ox O2 Delivery O2 Flow Rate FiO2 10/02/16 15:30 89 16 97/61 97 10/02/16 15:00 40 10/02/16 12:00 98.9 10/02/16 07:45 Mechanical Ventilator Intake and Output 10/01/16 10/01/16 10/02/16 15:00 23:00 07:00 Intake Total 1169.9 ml 1067.88 ml 1411.36 ml Output Total 1690 ml 3255 ml 305 ml Balance -520.1 ml -2187.12 ml 1106.36 ml Exam Constitutional: other (Sedated), well developed Head: atraumatic, normocephalic Eyes: PERRL, nl sclera Neck: supple Respiratory: diminished breath sounds, No wheezing Cardiovascular: edema, nl pulses, other (Left subclavian central line c/d/i), regular rate and rhythm Gastrointestinal: bowel sounds, other (NGT with Tube feeds intact), soft Genitourinary - Male: nl penis, nl scrotum, other (Tang intact with clear artemio urine) Extremities: edema, No clubbing, No cyanosis Neurological: other (sedated) Skin: nl turgor, other (Multiple tattoos including 2 flags on the left bicep area) Results Result Diagram: 10/02/16 0400 10/02/16 0400 Results 24 hrs Laboratory Tests Test 10/01/16 17:48 10/01/16 23:51 10/02/16 04:00 10/02/16 05:55 Bedside Glucose 80 110 94 Anion Gap 9 Basophils # 0.0 Basophils % 0.2 Blood Morphology Comment Blood Urea Nitrogen 14 Calcium Level 7.5 L Carbon Dioxide Level 35 H Chloride Level 99 Creatinine 0.78 Eosinophils # 0.3 Eosinophils % 7.7 H Glucose Level 93 Hematocrit 35.0 L Hemoglobin 11.4 L Lymphocytes # 1.2 Lymphocytes % 26.6 Magnesium Level 1.9 Mean Corpuscular Hemoglobin 29.1 Mean Corpuscular Hemoglobin Concent 32.5 Mean Corpuscular Volume 89.5 Mean Platelet Volume 10.8 H Monocytes # 0.5 Monocytes % 12.5 H Neutrophils # 2.3 Neutrophils % 53.0 Nucleated Red Blood Cells # 0.0 Nucleated Red Blood Cells % 0.0 Phosphorus Level 3.5 Platelet Count 248 Potassium Level 3.3 L Red Blood Count 3.90 L Red Cell Distribution Width 14.9 H Sodium Level 140 White Blood Count 4.4 L Test 10/02/16 13:01 Bedside Glucose 105 Medications Medications Current Medications Lorazepam (Ativan) 0.5 mg Q6H PRN IV ANXIETY Last administered on 09/27/16 10: 59; Admin Dose 0.5 MG; Start 09/15/16 at 18:00 Ondansetron HCl (Zofran Inj) 4 mg Q6H PRN IV NAUSEA AND/OR VOMITING; Start at 18:00 Morphine Sulfate (morphine) 2 mg Q4H PRN IV PAIN LEVEL 7-10 Last administered on 09/22/16 01:30; Admin Dose 2 MG; Start 09/15/16 at 18:00 Haloperidol 5 mg 5 mg Q6H PRN IM AGITATION Last administered on 09/19/16at 10: 40; Admin Dose 5 MG; Start 09/18/16 at 11:30 Propofol (Diprivan) 100 ml @ 3.105 mls/ hr Q12H IV Last administered on 15:19; Admin Dose 12.42 MLS/HR; Start 09/19/16 at 13:30 Famotidine 20 mg 20 mg BID IV Last administered on 10/02/16 09:20; Admin Dose 20 MG; Start 09/19/16 at 21:00 Fentanyl/Dextrose (D5W) 100 ml @ 2.5 mls/hr TITRATE IV Last administered on 15:25; Admin Dose 5 MLS/HR; Start 09/23/16 at 10:00 Miscellaneous Information 1 ea NOTE XX ; Start 09/23/16 at 13:30 Glucose (Glutose) 15 gm Q15M PRN PO DECREASED GLUCOSE; Start 09/23/16 at 13:30 Glucose (Glutose) 22.5 gm Q15M PRN PO DECREASED GLUCOSE; Start 09/23/16 at 13:30 Dextrose (D50w Syringe) 25 ml Q15M PRN IV DECREASED GLUCOSE Last administered on 10/01/16 00:02; Admin Dose 25 ML; Start 09/23/16 at 13:30 Dextrose (D50w Syringe) 50 ml Q15M PRN IV DECREASED GLUCOSE; Start 09/23/16 at 13:30 Glucagon (Glucagen) 1 mg Q15M PRN IM DECREASED GLUCOSE; Start 09/23/16 at 13:30 Glucose 15 gm 15 gm Q15M PRN BUCCAL DECREASED GLUCOSE; Start 09/23/16 at 13:30 Dextrose/Sodium Chloride (D5-NS) 1,000 ml @ 50 mls/hr Q20H IV Last administered on 10/01/16 23:52; Admin Dose 50 MLS/HR; Start 09/23/16 at 16:30 Metoclopramide HCl 10 mg 10 mg Q12 IV Last administered on 10/02/16 09:20; Admin Dose 10 MG; Start 09/24/16 at 11:30 Midazolam HCl/ Dextrose (Versed/D5W) 50 ml @ 2 mls/hr TITRATE IV Last administered on 10/02/16 15:22; Admin Dose 2 MLS/HR; Start 09/25/16 at 12:00 Insulin Aspart NOVOLOG *MODERATE* ALGORI... Q6 SC ; Start 09/25/16 at 18:00 Vancomycin HCl/ Sodium Chloride (Vancocin/NS) 250 ml @ 83.333 mls/ hr Q12H IVPB Last administered on 10/02/16 15:30; Admin Dose 83.333 MLS/HR; Start 09/28 at 15:00 Acetaminophen 650 mg 650 mg Q4H PRN NGT PAIN AND OR ELEVATED TEMP Last administered on 10/02/16 00:50; Admin Dose 650 MG; Start 09/28/16 at 13:30 Piperacillin Sod/ Tazobactam Sod (Zosyn 3.375gm/ 100 ml (Pmx)) 100 ml @ 200 mls /hr Q6 IVPB Last administered on 10/02/16 12:59; Admin Dose 200 MLS/HR; Start 09/29/16 at 17:00 Enoxaparin Sodium 100 mg 100 mg Q12 SC Last administered on 10/02/16 09:33; Admin Dose 100 MG; Start 10/01/16 at 21:00 Norepinephrine (Levophed) 250 ml @ 1.875 mls/ hr TITRATE IV ; Start 09/30/16 at 19:00 Lisinopril (Zestril) 2.5 mg DAILY GTB ; Start 10/02/16 at 09:00 Procedures Procedures CXR 10/02/16: FINDINGS: The tip of the endotracheal tube is 3.8 cm above the ida. Enteric tube courses below the diaphragm in the field of view. There is a left subclavian line with its tip at the mid SVC. There is vascular congestion with small to moderate bilateral pleural effusions , right greater than left, progressed from prior. Cardiac silhouette is enlarged. There is no pneumothorax. There is no acute osseous abnormality. IMPRESSION: 1. Pulmonary vascular congestion with small to moderate bilateral pleural effusions, right greater than left, progressed from prior. 2. Enlarged cardiac silhouette. 3. Lines and tubes as above. BUE venous doppler 10/01/16: Right cephalic vein thrombosis. BLE venous doppler 10/01/16: DVT of the left peroneal vein. LAURA OJEDA NP Oct 02, 2016 15:59
--- NOTE | 2016-10-02 19:05 | PN ---
Date/Time of Note Date/Time of Note DATE: 10/02/16 TIME: 19:04 Assessment/Plan Lines/Catheters IV Catheter Type (from Nrsg): Central Line Tang in Place (from Nrsg): Yes Assessment/Plan Chief Complaint/Hosp Course IMPRESSION 1. Pulmonary embolism. 2. Pneumonia. 3 Pleural effusion RECOMMENDATIONS: We will monitor the pleural effusion. Thorocentesis prn Anticoagulation . . Discussed with the nursing staff. Problems: Subjective 24 Hr Interval Summary Constitutional: improved Pain Control: mild Exam/Review of Systems Vital Signs Vitals Vital Signs Date Time Temp Pulse Resp B/P Pulse Ox O2 Delivery O2 Flow Rate FiO2 10/02/16 19:00 79 16 95/59 94 10/02/16 17:50 40 10/02/16 16:00 98.9 10/02/16 07:45 Mechanical Ventilator Intake and Output 10/01/16 10/01/16 10/02/16 15:00 23:00 07:00 Intake Total 1169.9 ml 1067.88 ml 1411.36 ml Output Total 1690 ml 3255 ml 305 ml Balance -520.1 ml -2187.12 ml 1106.36 ml Exam ENMT: mucosa pink and moist, nl external ears & nose, nl lips & teeth, nl nasal mucosa & septum Neck: non-tender, supple Respiratory: clear to auscultation, normal air movement Cardiovascular: nl pulses, regular rate and rhythm Results Result Diagram: 10/02/16 0400 10/02/160 YOUNG HAY MD Oct 02, 2016 19:04
[2016-10-02] MEDS: OSELTAMIVIR 75 MG CAP NGT SCH (20:33)
[2016-10-02] MEDS: AZITHROMYCIN 500MG/NS (PMX) 250 ML IVPB SCH (20:33)
[2016-10-02 21:56] LABS: TIME 2145
[2016-10-03] VITALS (69 sets, daily range): BP systolic 85–131; BP diastolic 53–116; PULSE 67–107; RESP 10–30
[2016-10-03] MEDS: PIPER-TAZO 3.375 GM IV (PMX) 100 ML IVPB SCH ×4 (01:02→18:00)
[2016-10-03] MEDS: VANCOMYCIN 1.25 GM in SOD CHLORIDE 0.9% 250 ML IVPB SCH ×2 (02:46→15:24)
[2016-10-03 05:28] LABS: BASOPHILS % 1.1 % (0.0-2.0); EOSINOPHILS # 0.3 10^3/ul (0.0-0.5); EOSINOPHILS % 8.1 % (0.0-7.0); HEMATOCRIT 35.9 % (42.0-52.0); HEMOGLOBIN 11.8 g/dl (14.0-18.0); LYMPHOCYTES # 1.5 10^3/ul (0.8-2.9); LYMPHOCYTES % 35.7 % (15.0-51.0); MEAN CORPUSCULAR HEMOGLOBIN 29.1 pg (29.0-33.0); MEAN CORPUSCULAR HGB CONC 32.9 g/dl (32.0-37.0); MEAN CORPUSCULAR VOLUME 88.3 fl (82.0-101.0); MEAN PLATELET VOLUME 10.8 fl (7.4-10.4); MONOCYTE # 0.6 10^3/ul (0.3-0.9); MONOCYTES % 13.5 % (0.0-11.0); NEUTROPHIL # 1.7 10^3/ul (1.6-7.5); NEUTROPHILS % 41.6 % (39.0-77.0); PLATELET COUNT 250 10^3/UL (140-440); RED BLOOD COUNT 4.07 10^6/ul (4.70-6.10); RED CELL DISTRIBUTION WIDTH 15.1 % (11.5-14.5); UNCORRECTED WBC 4.2 10^3/ul (4.8-10.8); WHITE BLOOD COUNT 4.2 10^3/ul (4.8-10.8)
[2016-10-03 05:35] LABS: POTASSIUM 3.3 mmol/L (3.5-5.1)
[2016-10-03 05:38] LABS: CALCIUM 7.7 mg/dl (8.4-10.2); CREATININE 0.81 mg/dl (0.61-1.24); PHOSPHORUS 3.2 mg/dl (2.5-4.9)
[2016-10-03 05:39] LABS: MAGNESIUM 2.1 mg/dl (1.7-2.5)
[2016-10-03] MEDS: INSULIN ASPART [NOVOLOG] 3 ML PEN SC SCH ×4 (06:00→18:00)
[2016-10-03] MEDS: DEXTROSE 5%-0.9% NACL 1,000 ML IV SCH ×2 (06:14→16:30)
[2016-10-03] MEDS: FUROSEMIDE 40 MG INJ IV SCH ×2 (06:14→18:32)
[2016-10-03 06:21] LABS: CONDITION 1; LH ANALYZER COMMENTS 1
[2016-10-03] MEDS: PROPOFOL 100 ML IV SCH ×2 (06:28→16:43)
--- NOTE | 2016-10-03 07:46 | CONS ---
Date/Time of Note Date/Time of Note DATE: 10/03/16 TIME: 07:43 Assessment/Plan Assessment/Plan Chief Complaint/Hosp Course - Sepsis d/t PNA with parapneumonic effusion. Still with low grade fever - PNA with parapneumonic effusion. Could be started as CAP, other considerations include aspiration PNA - recurrent pleural effusion. s/p diagnostic thoracentesis on 09/22/16. It showed glu=74 pro <2, HAJ=0004. No malignancy on cytology. 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 Acute hepatitis panel negative - mild leukopenia - hypokalemia - s/p hyponatremia and hypernatremia - s/p lactic acidosis Recommendations: - f/u cocci serology (pending), AFB smear (negative on 09/29, 09/30 & 10/01) and cxs (pending) - recommend continuing IV vancomycin (09/19/2016-) and pip/tazo (09/29/2016-) to cover pneumonia with parapneumonic effusion - continue empiric tamiflu and azithromycin (10/02/16-) - f/u rapid influenza screen, PPD, legionella antigen, mycoplasma pneumoniae, chlamydia pneumoniae serology - f/u records from [place] - continue droplet precautions for now; ok to dc isolation for TB per protocol and [employer] Mounika to f/u input of Infection Control - management d/w ICU RNs, Mounika and Nehemiah - Above d/w Dr. Osullivan - critical care time spent: 40 min Problems: Consultation Date/Type/Reason Admit Date/Time Sep 15, 2016 at 16:54 Initial Consult Date 09/29/16 Type of Consultation: Infectious Disease Referring Provider: JAN ZHANG 24 HR Interval Summary Free Text/Dictation Tmax 100, PPD placed last night, failed weaning trial yesterday morning, remains edematous, and remains sedated on Fentanyl, Versed and Propofol per Nursing. ROS limited due to sedation. Exam/Review of Systems Vital Signs Vitals Vital Signs Date Time Temp Pulse Resp B/P Pulse Ox O2 Delivery O2 Flow Rate FiO2 10/03/16 06:00 70 16 97/66 99 Mechanical Ventilator 10/03/16 05:36 40 10/03/16 04:00 98.7 Intake and Output 10/02/16 10/02/16 10/03/16 15:00 23:00 07:00 Intake Total 697.050 ml 956.85 ml 1236.272 ml Output Total 2920 ml 1570 ml 175 ml Balance -2222.950 ml -613.15 ml 1061.272 ml Exam Constitutional: other (orally intubated and sedated), well developed Head: atraumatic, normocephalic Eyes: PERRL, nl sclera ENMT: intubated, other (no thrush noted but exam limited) Neck: supple, No masses Respiratory: diminished breath sounds, other (left subclavian central line c/d/ i) Cardiovascular: edema, nl pulses, regular rate and rhythm Gastrointestinal: bowel sounds, other (NGT with TF intact), soft Genitourinary - Male: nl penis, nl scrotum, other (Tang cath intact with clear yellow urine) Musculoskeletal: swelling Extremities: edema, normal pulses, No clubbing, No cyanosis Neurological: other (Sedated) Skin: nl turgor, other (Multiple tattoos including 2 flags on the left bicep area and the name Missy on ISAIAH) Results Result Diagram: 10/03/16 0410 10/03/16 0410 Results 24 hrs Laboratory Tests Test 10/02/16 13:01 10/02/16 17:36 10/02/16 21:45 10/03/16 01:01 Bedside Glucose 105 91 93 TB Skin Test Administer Date [id number] TB Skin Test Administer Time 2144 TB Skin Test Induration Pending TB Skin Test Injection Site Right Lower Forearm Test 10/03/16 04:10 10/03/16 06:20 Anion Gap 9 Basophils # 0.0 Basophils % 1.1 Blood Morphology Comment Blood Urea Nitrogen 14 Calcium Level 7.7 L Carbon Dioxide Level 34 H Chloride Level 101 Creatinine 0.81 Eosinophils # 0.3 Eosinophils % 8.1 H Glucose Level 88 Hematocrit 35.9 L Hemoglobin 11.8 L Lymphocytes # 1.5 Lymphocytes % 35.7 Magnesium Level 2.1 Mean Corpuscular Hemoglobin 29.1 Mean Corpuscular Hemoglobin Concent 32.9 Mean Corpuscular Volume 88.3 Mean Platelet Volume 10.8 H Monocytes # 0.6 Monocytes % 13.5 H Neutrophils # 1.7 Neutrophils % 41.6 Nucleated Red Blood Cells # 0.0 Nucleated Red Blood Cells % 0.0 Phosphorus Level 3.2 Platelet Count 250 Potassium Level 3.3 L Red Blood Count 4.07 L Red Cell Distribution Width 15.1 H Sodium Level 141 White Blood Count 4.2 L Bedside Glucose 88 Medications Medications Current Medications Lorazepam (Ativan) 0.5 mg Q6H PRN IV ANXIETY Last administered on 09/27/16 10: 59; Admin Dose 0.5 MG; Start 09/15/16 at 18:00 Ondansetron HCl (Zofran Inj) 4 mg Q6H PRN IV NAUSEA AND/OR VOMITING; Start at 18:00 Morphine Sulfate (morphine) 2 mg Q4H PRN IV PAIN LEVEL 7-10 Last administered on 09/22/16 01:30; Admin Dose 2 MG; Start 09/15/16 at 18:00 Haloperidol 5 mg 5 mg Q6H PRN IM AGITATION Last administered on 09/19/16at 10: 40; Admin Dose 5 MG; Start 09/18/16 at 11:30 Propofol (Diprivan) 100 ml @ 3.105 mls/ hr Q12H IV Last administered on 06:28; Admin Dose 12.42 MLS/HR; Start 09/19/16 at 13:30 Famotidine 20 mg 20 mg BID IV Last administered on 10/02/16 20:33; Admin Dose 20 MG; Start 09/19/16 at 21:00 Fentanyl/Dextrose (D5W) 100 ml @ 2.5 mls/hr TITRATE IV Last administered on 15:25; Admin Dose 5 MLS/HR; Start 09/23/16 at 10:00 Miscellaneous Information 1 ea NOTE XX ; Start 09/23/16 at 13:30 Glucose (Glutose) 15 gm Q15M PRN PO DECREASED GLUCOSE; Start 09/23/16 at 13:30 Glucose (Glutose) 22.5 gm Q15M PRN PO DECREASED GLUCOSE; Start 09/23/16 at 13:30 Dextrose (D50w Syringe) 25 ml Q15M PRN IV DECREASED GLUCOSE Last administered on 10/01/16 00:02; Admin Dose 25 ML; Start 09/23/16 at 13:30 Dextrose (D50w Syringe) 50 ml Q15M PRN IV DECREASED GLUCOSE; Start 09/23/16 at 13:30 Glucagon (Glucagen) 1 mg Q15M PRN IM DECREASED GLUCOSE; Start 09/23/16 at 13:30 Glucose 15 gm 15 gm Q15M PRN BUCCAL DECREASED GLUCOSE; Start 09/23/16 at 13:30 Dextrose/Sodium Chloride (D5-NS) 1,000 ml @ 50 mls/hr Q20H IV Last administered on 10/03/16 06:14; Admin Dose 50 MLS/HR; Start 09/23/16 at 16:30 Metoclopramide HCl 10 mg 10 mg Q12 IV Last administered on 10/02/16 20:33; Admin Dose 10 MG; Start 09/24/16 at 11:30 Midazolam HCl/ Dextrose (Versed/D5W) 50 ml @ 2 mls/hr TITRATE IV Last administered on 10/02/16 15:22; Admin Dose 2 MLS/HR; Start 09/25/16 at 12:00 Insulin Aspart NOVOLOG *MODERATE* ALGORI... Q6 SC ; Start 09/25/16 at 18:00 Vancomycin HCl/ Sodium Chloride (Vancocin/NS) 250 ml @ 83.333 mls/ hr Q12H IVPB Last administered on 10/03/16 02:46; Admin Dose 83.333 MLS/HR; Start 09/28 at 15:00 Acetaminophen 650 mg 650 mg Q4H PRN NGT PAIN AND OR ELEVATED TEMP Last administered on 10/02/16 00:50; Admin Dose 650 MG; Start 09/28/16 at 13:30 Piperacillin Sod/ Tazobactam Sod (Zosyn 3.375gm/ 100 ml (Pmx)) 100 ml @ 200 mls /hr Q6 IVPB Last administered on 10/03/16 06:15; Admin Dose 200 MLS/HR; Start 09/29/16 at 17:00 Enoxaparin Sodium 100 mg 100 mg Q12 SC Last administered on 10/02/16 20:41; Admin Dose 100 MG; Start 10/01/16 at 21:00 Norepinephrine (Levophed) 250 ml @ 1.875 mls/ hr TITRATE IV ; Start 09/30/16 at 19:00 Lisinopril (Zestril) 2.5 mg DAILY GTB ; Start 10/02/16 at 09:00 Oseltamivir Phosphate 75 mg 75 mg BID NGT Last administered on 10/02/16 20:33 ; Admin Dose 75 MG; Start 10/02/16 at 21:00 Azithromycin 250 ml @ 250 mls/hr Q24H IVPB Last administered on 10/02/16 20: 33; Admin Dose 250 MLS/HR; Start 10/02/16 at 20:00; Stop 10/06/16 at 19:59 Potassium Chloride/Sodium Chloride (KCl/NS) 110 ml @ 55 mls/hr PRN PRN IVPB POTASSIUM REPLACEMENT PROTOCOL; Start 10/03/16 at 08:00; Status UNV Procedures Procedures CXR 10/02/16: FINDINGS: The tip of the endotracheal tube is 3.8 cm above the ida. Enteric tube courses below the diaphragm in the field of view. There is a left subclavian line with its tip at the mid SVC. There is vascular congestion with small to moderate bilateral pleural effusions , right greater than left, progressed from prior. Cardiac silhouette is enlarged. There is no pneumothorax. There is no acute osseous abnormality. IMPRESSION: 1. Pulmonary vascular congestion with small to moderate bilateral pleural effusions, right greater than left, progressed from prior. 2. Enlarged cardiac silhouette. 3. Lines and tubes as above. BUE venous doppler 10/01/16: Right cephalic vein thrombosis. BLE venous doppler 10/01/16: DVT of the left peroneal vein. TTE 09/18/17: 1. Normal left ventricular wall thickness. Moderate enlargement of left ventricle cavity. Severe left ventricular systolic dysfunction. Ejection fraction is visually estimated at 20 %. Abnormal Diastolic Function. 2. Mild enlargement of right ventricle. Moderate right ventricular hypokinesis. 3. There is moderate enlargement of left atrium. 4. There is mild enlargement of right atrium. 5. Mild to moderate mitral valve regurgitation. 6. No hemodynamically significant aortic stenosis by doppler. Trace aortic valve regurgitation. 7. Estimated peak PA systolic pressure 35 mmHg. There is mild to moderate tricuspid regurgitation. 8. Normal pericardium with no significant pericardial effusion. Right pleural effusion seen. LAURA OJEDA NP Oct 03, 2016 07:46
[2016-10-03] MEDS: LISINOPRIL 5 MG TAB GTB SCH (08:43)
[2016-10-03] MEDS: OSELTAMIVIR 75 MG CAP NGT SCH ×2 (08:43→21:56)
[2016-10-03] MEDS: METOCLOPRAMIDE 10 MG INJ IV SCH ×2 (08:44→21:56)
[2016-10-03] MEDS: FAMOTIDINE 20 MG INJ IV SCH ×2 (08:44→21:55)
--- NOTE | 2016-10-03 08:46 | RADRPT ---
PROCEDURE: XR Chest. CLINICAL INDICATION: Shortness of breath. TECHNIQUE: Single frontal view. COMPARISON: 10/02/2016. FINDINGS: The endotracheal tube, nasogastric tube, and left arm PICC line are in satisfactory position. There is pulmonary edema, unchanged. The heart is enlarged. Moderate bilateral pleural effusions are unchanged. There is no pneumothorax. IMPRESSION: 1. No change from 10/02/2016. RPTAT: QQ .Zack Gonsalez MD, MD Date Time Electronically viewed and signed by .Zack Gonsalez MD, MD on 10/03/2016 08:45 .R/
[2016-10-03] MEDS: ENOXAPARIN 100 MG/ML SYG SC SCH ×2 (09:03→21:57)
--- NOTE | 2016-10-03 10:08 | CONS ---
Date/Time of Note Date/Time of Note DATE: 10/03/16 TIME: 10:06 Consult Date/Type/Reason Admit Date/Time Sep 15, 2016 at 16:54 Type of Consultation: pulmonary Ordering Provider: JAN ZHANG Subjective Patient remains intubated on mechanical ventilation Failed CPAP trial yesterday secondary to increased work of breathing Objective Chest x-ray Bilateral pleural effusions right greater than left Vital Signs Date Time Temp Pulse Resp B/P Pulse Ox O2 Delivery O2 Flow Rate FiO2 10/03/16 09:00 73 16 103/76 97 Mechanical Ventilator 10/03/16 08:00 40 10/03/16 08:00 98.5 Intake and Output 10/02/16 10/02/16 10/03/16 15:00 23:00 07:00 Intake Total 697.050 ml 956.85 ml 1242.472 ml Output Total 2920 ml 1570 ml 175 ml Balance -2222.950 ml -613.15 ml 1067.472 ml PHYSICAL EXAMINATION GENERAL: Chronically ill gentleman intubated on mechanical ventilation VITAL SIGNS: see below. HEENT: Pupils equal, round, and reactive to light. CARDIAC: S1, S2, CHEST: Diminished air entry bilaterally. ABDOMEN: Mildly distended. Bowel sounds present abdomen mildly distended no guarding or rebound. EXTREMITIES: No cyanosis, clubbing edema +1 NEUROLOGIC: No focal deficits. Results/Medications Result Diagram: 10/03/1640910/03/16 041 Results 24 hrs Laboratory Tests Test 10/02/16 13:01 10/02/16 17:36 10/02/16 21:45 10/03/16 01:01 Bedside Glucose 105 91 93 TB Skin Test Administer Date 1120926 TB Skin Test Administer Time 2144 TB Skin Test Induration Pending TB Skin Test Injection Site Right Lower Forearm Test 10/03/16 04:10 10/03/16 06:20 Anion Gap 9 Basophils # 0.0 Basophils % 1.1 Blood Morphology Comment Blood Urea Nitrogen 14 Calcium Level 7.7 L Carbon Dioxide Level 34 H Chloride Level 101 Creatinine 0.81 Eosinophils # 0.3 Eosinophils % 8.1 H Glucose Level 88 Hematocrit 35.9 L Hemoglobin 11.8 L Lymphocytes # 1.5 Lymphocytes % 35.7 Magnesium Level 2.1 Mean Corpuscular Hemoglobin 29.1 Mean Corpuscular Hemoglobin Concent 32.9 Mean Corpuscular Volume 88.3 Mean Platelet Volume 10.8 H Monocytes # 0.6 Monocytes % 13.5 H Neutrophils # 1.7 Neutrophils % 41.6 Nucleated Red Blood Cells # 0.0 Nucleated Red Blood Cells % 0.0 Phosphorus Level 3.2 Platelet Count 250 Potassium Level 3.3 L Red Blood Count 4.07 L Red Cell Distribution Width 15.1 H Sodium Level 141 White Blood Count 4.2 L Bedside Glucose 88 Medications Current Medications Lorazepam (Ativan) 0.5 mg Q6H PRN IV ANXIETY Last administered on 09/27/16 10: 59; Admin Dose 0.5 MG; Start 09/15/16 at 18:00 Ondansetron HCl (Zofran Inj) 4 mg Q6H PRN IV NAUSEA AND/OR VOMITING; Start at 18:00 Morphine Sulfate (morphine) 2 mg Q4H PRN IV PAIN LEVEL 7-10 Last administered on 09/22/16 01:30; Admin Dose 2 MG; Start 09/15/16 at 18:00 Haloperidol 5 mg 5 mg Q6H PRN IM AGITATION Last administered on 09/19/16at 10: 40; Admin Dose 5 MG; Start 09/18/16 at 11:30 Propofol (Diprivan) 100 ml @ 3.105 mls/ hr Q12H IV Last administered on 06:28; Admin Dose 12.42 MLS/HR; Start 09/19/16 at 13:30 Famotidine 20 mg 20 mg BID IV Last administered on 10/03/16 08:44; Admin Dose 20 MG; Start 09/19/16 at 21:00 Fentanyl/Dextrose (D5W) 100 ml @ 2.5 mls/hr TITRATE IV Last administered on 15:25; Admin Dose 5 MLS/HR; Start 09/23/16 at 10:00 Miscellaneous Information 1 ea NOTE XX ; Start 09/23/16 at 13:30 Glucose (Glutose) 15 gm Q15M PRN PO DECREASED GLUCOSE; Start 09/23/16 at 13:30 Glucose (Glutose) 22.5 gm Q15M PRN PO DECREASED GLUCOSE; Start 09/23/16 at 13:30 Dextrose (D50w Syringe) 25 ml Q15M PRN IV DECREASED GLUCOSE Last administered on 10/01/16 00:02; Admin Dose 25 ML; Start 09/23/16 at 13:30 Dextrose (D50w Syringe) 50 ml Q15M PRN IV DECREASED GLUCOSE; Start 09/23/16 at 13:30 Glucagon (Glucagen) 1 mg Q15M PRN IM DECREASED GLUCOSE; Start 09/23/16 at 13:30 Glucose 15 gm 15 gm Q15M PRN BUCCAL DECREASED GLUCOSE; Start 09/23/16 at 13:30 Dextrose/Sodium Chloride (D5-NS) 1,000 ml @ 50 mls/hr Q20H IV Last administered on 10/03/16 06:14; Admin Dose 50 MLS/HR; Start 09/23/16 at 16:30 Metoclopramide HCl 10 mg 10 mg Q12 IV Last administered on 10/03/16 08:44; Admin Dose 10 MG; Start 09/24/16 at 11:30 Midazolam HCl/ Dextrose (Versed/D5W) 50 ml @ 2 mls/hr TITRATE IV Last administered on 10/02/16 15:22; Admin Dose 2 MLS/HR; Start 09/25/16 at 12:00 Insulin Aspart NOVOLOG *MODERATE* ALGORI... Q6 SC ; Start 09/25/16 at 18:00 Vancomycin HCl/ Sodium Chloride (Vancocin/NS) 250 ml @ 83.333 mls/ hr Q12H IVPB Last administered on 10/03/16 02:46; Admin Dose 83.333 MLS/HR; Start 09/28 at 15:00 Acetaminophen 650 mg 650 mg Q4H PRN NGT PAIN AND OR ELEVATED TEMP Last administered on 10/02/16 00:50; Admin Dose 650 MG; Start 09/28/16 at 13:30 Piperacillin Sod/ Tazobactam Sod (Zosyn 3.375gm/ 100 ml (Pmx)) 100 ml @ 200 mls /hr Q6 IVPB Last administered on 10/03/16 06:15; Admin Dose 200 MLS/HR; Start 09/29/16 at 17:00 Enoxaparin Sodium 100 mg 100 mg Q12 SC Last administered on 10/03/16 09:03; Admin Dose 100 MG; Start 10/01/16 at 21:00 Norepinephrine (Levophed) 250 ml @ 1.875 mls/ hr TITRATE IV ; Start 09/30/16 at 19:00 Lisinopril (Zestril) 2.5 mg DAILY GTB Last administered on 10/03/16 08:43; Admin Dose 2.5 MG; Start 10/02/16 at 09:00 Oseltamivir Phosphate 75 mg 75 mg BID NGT Last administered on 10/03/16 08:43 ; Admin Dose 75 MG; Start 10/02/16 at 21:00 Azithromycin (Zithromax 500mg/ NS (Pmx)) 250 ml @ 250 mls/hr Q24H IVPB Last administered on 10/02/16 20:33; Admin Dose 250 MLS/HR; Start 10/02/16 at 20:00 ; Stop 10/06/16 at 19:59 Assessment/Plan Chief Complaint/Hosp Course IMPRESSION: 1. Hypoxemic respiratory failure/vent dependence 2. Right sided pneumonia with complicated parapneumonic effusion s/p thoracentesis, repeat thoracentesis however x-ray shows reaccumulation. 3. Acute pulmonary emboli 4. Encephalopathy, likely toxic metabolic. 5. Transaminitis 6. FEN- Increased Na+ PLAN: 1. Recurrent right pleural effusion. Repeat pleural fluid studies. May require VATS pleurodesis versus pigtail catheter drainage. Chest CT today 2. check cocci serologies/TB quant gold, respiratory isolation, ID recommendations 3. continue lovenox 4. Continue Free H20 5 IV fluids per primary team Overall prognosis is guarded Problems: AMANDA STONE MD, [facility] Oct 03, 2016 10:08
[2016-10-03] MEDS: FENTAnyl 1,000 MCG in DEXTROSE 5% 80 ML IV SCH (10:49)
[2016-10-03 12:41] LABS: AADO2 Arterial 137.8 mmHg (7.0-24.0); Allen Test ACCEPTAB; Arterial Base Excess 9.6 mmol/L (-3.0-3); Arterial COHb 0.2 % (0.0-3.0); Arterial Fraction of Oxyhgb 96.5 % (93.0-99.0); Arterial HCO3 35.7 mmol/L (22.0-26.0); Arterial MetHb 0.2 % (0.0-1.5); Arterial Total Hemglobin 13.8 g/dl (12.0-18.0); Blood Gas PS 10; MODE VENT - CPAP
--- NOTE | 2016-10-03 14:25 | PN ---
Date/Time of Note Date/Time of Note DATE: 10/03/16 TIME: 14:23 Assessment/Plan VTE Prophylaxis VTE Prophylaxis Intervention: LMWH, other Lines/Catheters IV Catheter Type (from Nrsg): Central Line Central line still needed: Yes Urinary Cath still in place: Yes Reason Cath still needed: terminal illness/intractable pain Assessment/Plan Assessment/Plan 1. Acute respiratory failure. - per Dr. Aquino from pulmonology consultation. - Continue bronchodilators and vent support. 2. Right-sided pneumonia with complicated parapneumonic effusion, status post thoracentesis. - per Dr. Hernandez from an Infectious Disease standpoint. - Continue patient on vancomycin and cefepime. 3. Acute pulmonary emboli. Continue patient on Lovenox. 4. 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 - per Dr. Woodard from cardiology standpoint. - Continue patient on Lasix. 5. Encephalopathy, likely toxic metabolic. Continue to monitor. 6. 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 7. Bilateral hand/feet edema- DVT- Right cephalic , left peroneal vein DVT. - on anticoagulants 8. Hypokalemia- replet K, Am labs. Continue Pepcid for peptic ulcer disease prophylaxis. Total critical time spent for patient fu is 40 mins. Further recommendations based on clinical course. Plan of care discussed with Dr. Yeh covering for Dr Patel Subjective Subjective 24 Hr Interval Summary Subjective hx not possible: pt critical status Constitutional: requiring IVF, requiring O2 Exam/Review of Systems Vital Signs Vitals Vital Signs Date Time Temp Pulse Resp B/P Pulse Ox O2 Delivery O2 Flow Rate FiO2 10/03/16 13:00 40 10/03/16 12:00 101 10/03/16 09:00 16 103/76 97 Mechanical Ventilator 10/03/16 08:00 98.5 Intake and Output 10/02/16 10/02/16 10/03/16 15:00 23:00 07:00 Intake Total 697.050 ml 956.85 ml 1317.472 ml Output Total 2920 ml 1570 ml 1075 ml Balance -2222.950 ml -613.15 ml 242.472 ml Exam Constitutional: non-verbal, well developed Psych: nl mood/affect Eyes: EOMI, nl sclera ENMT: nl external ears & nose Neck: non-tender Respiratory: clear to auscultation Cardiovascular: nl pulses Gastrointestinal: non-tender, soft Extremities: normal pulses Neurological: lethargic Skin: other Lymph: nontender Results Result Diagram: 10/03/16 0410 10/03/16 0410 Results 24 hrs Laboratory Tests Test 10/02/16 17:36 10/02/16 21:45 10/03/16 01:01 10/03/16 04:10 Bedside Glucose 91 93 TB Skin Test Administer Date [id number] TB Skin Test Administer Time 2144 TB Skin Test Induration Pending TB Skin Test Injection Site Right Lower Forearm Anion Gap 9 Basophils # 0.0 Basophils % 1.1 Blood Morphology Comment Blood Urea Nitrogen 14 Calcium Level 7.7 L Carbon Dioxide Level 34 H Chloride Level 101 Creatinine 0.81 Eosinophils # 0.3 Eosinophils % 8.1 H Glucose Level 88 Hematocrit 35.9 L Hemoglobin 11.8 L Lymphocytes # 1.5 Lymphocytes % 35.7 Magnesium Level 2.1 Mean Corpuscular Hemoglobin 29.1 Mean Corpuscular Hemoglobin Concent 32.9 Mean Corpuscular Volume 88.3 Mean Platelet Volume 10.8 H Monocytes # 0.6 Monocytes % 13.5 H Neutrophils # 1.7 Neutrophils % 41.6 Nucleated Red Blood Cells # 0.0 Nucleated Red Blood Cells % 0.0 Phosphorus Level 3.2 Platelet Count 250 Potassium Level 3.3 L Red Blood Count 4.07 L Red Cell Distribution Width 15.1 H Sodium Level 141 White Blood Count 4.2 L Test 10/03/16 06:20 10/03/16 11:50 10/03/16 12:30 Bedside Glucose 88 97 Arterial Blood HCO3 35.7 H Arterial Blood Base Excess 9.6 H Arterial Blood Oxygen Saturation 96.9 Sky Test ACCEPTAB Arterial Blood Gas Puncture Site Right Radial Arterial Blood Carboxyhemoglobin 0.2 Arterial Blood Date Drawn 10/03/2016 12:20:56 PM Arterial Blood Methemoglobin 0.2 Arterial Blood pCO2 (Temp correct) 54.0 H Arterial Blood pH (Temp corrected) 7.438 Arterial Blood pO2 (Temp corrected) 85.3 Blood Gas A-a O2 Differential 137.8 H Blood Gas Actual Respiration Rate 28 Blood Gas Critical Value Read Back Esvin MCCOLLUM Blood Gas Low PEEP Setting 5.0 Blood Gas Modality VENT - CPAP Blood Gas Notified Time 10/03/2016 12:41:21 PM Blood Gas Notified Whom RDIX Blood Gas Pressure Support 10 Blood Gas Specimen Source Blood arterial Blood Gas Temperature 37.0 Blood Gas Tidal Volume 430.0 FiO2 40.0 Oxyhemoglobin Percent 96.5 Total Hemoglobin 13.8 Medications Medications Current Medications Lorazepam (Ativan) 0.5 mg Q6H PRN IV ANXIETY Last administered on 09/27/16 10: 59; Admin Dose 0.5 MG; Start 09/15/16 at 18:00 Ondansetron HCl (Zofran Inj) 4 mg Q6H PRN IV NAUSEA AND/OR VOMITING; Start at 18:00 Morphine Sulfate (morphine) 2 mg Q4H PRN IV PAIN LEVEL 7-10 Last administered on 09/22/16 01:30; Admin Dose 2 MG; Start 09/15/16 at 18:00 Haloperidol 5 mg 5 mg Q6H PRN IM AGITATION Last administered on 09/19/16at 10: 40; Admin Dose 5 MG; Start 09/18/16 at 11:30 Propofol (Diprivan) 100 ml @ 3.105 mls/ hr Q12H IV Last administered on 06:28; Admin Dose 12.42 MLS/HR; Start 09/19/16 at 13:30 Famotidine 20 mg 20 mg BID IV Last administered on 10/03/16 08:44; Admin Dose 20 MG; Start 09/19/16 at 21:00 Fentanyl/Dextrose (D5W) 100 ml @ 2.5 mls/hr TITRATE IV Last administered on 10:49; Admin Dose 5 MLS/HR; Start 09/23/16 at 10:00 Miscellaneous Information 1 ea NOTE XX ; Start 09/23/16 at 13:30 Glucose (Glutose) 15 gm Q15M PRN PO DECREASED GLUCOSE; Start 09/23/16 at 13:30 Glucose (Glutose) 22.5 gm Q15M PRN PO DECREASED GLUCOSE; Start 09/23/16 at 13:30 Dextrose (D50w Syringe) 25 ml Q15M PRN IV DECREASED GLUCOSE Last administered on 10/01/16 00:02; Admin Dose 25 ML; Start 09/23/16 at 13:30 Dextrose (D50w Syringe) 50 ml Q15M PRN IV DECREASED GLUCOSE; Start 09/23/16 at 13:30 Glucagon (Glucagen) 1 mg Q15M PRN IM DECREASED GLUCOSE; Start 09/23/16 at 13:30 Glucose 15 gm 15 gm Q15M PRN BUCCAL DECREASED GLUCOSE; Start 09/23/16 at 13:30 Dextrose/Sodium Chloride (D5-NS) 1,000 ml @ 50 mls/hr Q20H IV Last administered on 10/03/16 06:14; Admin Dose 50 MLS/HR; Start 09/23/16 at 16:30 Metoclopramide HCl 10 mg 10 mg Q12 IV Last administered on 10/03/16 08:44; Admin Dose 10 MG; Start 09/24/16 at 11:30 Midazolam HCl/ Dextrose (Versed/D5W) 50 ml @ 2 mls/hr TITRATE IV Last administered on 10/02/16 15:22; Admin Dose 2 MLS/HR; Start 09/25/16 at 12:00 Insulin Aspart NOVOLOG *MODERATE* ALGORI... Q6 SC ; Start 09/25/16 at 18:00 Vancomycin HCl/ Sodium Chloride (Vancocin/NS) 250 ml @ 83.333 mls/ hr Q12H IVPB Last administered on 10/03/16 02:46; Admin Dose 83.333 MLS/HR; Start 09/28 at 15:00 Acetaminophen 650 mg 650 mg Q4H PRN NGT PAIN AND OR ELEVATED TEMP Last administered on 10/02/16 00:50; Admin Dose 650 MG; Start 09/28/16 at 13:30 Piperacillin Sod/ Tazobactam Sod (Zosyn 3.375gm/ 100 ml (Pmx)) 100 ml @ 200 mls /hr Q6 IVPB Last administered on 10/03/16 11:51; Admin Dose 200 MLS/HR; Start 09/29/16 at 17:00 Enoxaparin Sodium 100 mg 100 mg Q12 SC Last administered on 10/03/16 09:03; Admin Dose 100 MG; Start 10/01/16 at 21:00 Norepinephrine (Levophed) 250 ml @ 1.875 mls/ hr TITRATE IV ; Start 09/30/16 at 19:00 Lisinopril (Zestril) 2.5 mg DAILY GTB Last administered on 10/03/16 08:43; Admin Dose 2.5 MG; Start 10/02/16 at 09:00 Oseltamivir Phosphate 75 mg 75 mg BID NGT Last administered on 10/03/16 08:43 ; Admin Dose 75 MG; Start 10/02/16 at 21:00 Azithromycin (Zithromax 500mg/ NS (Pmx)) 250 ml @ 250 mls/hr Q24H IVPB Last administered on 10/02/16 20:33; Admin Dose 250 MLS/HR; Start 10/02/16 at 20:00 ; Stop 10/06/16 at 19:59 Miscellaneous Information (*Rx Drug Level Order Reminder*) VANCO TROUGH @ 0, 200 ON... ONCE ONCE XX ; Start 10/04/16 at 02:00; Stop 10/04/16 at 02:01 Procedures Procedures PROCEDURE: XR Chest. CLINICAL INDICATION: Shortness of breath. TECHNIQUE: Single frontal view. COMPARISON: 10/02/2016. FINDINGS: The endotracheal tube, nasogastric tube, and left arm PICC line are in satisfactory position. There is pulmonary edema, unchanged. The heart is enlarged. Moderate bilateral pleural effusions are unchanged. There is no pneumothorax. IMPRESSION: 1. No change from 10/02/2016. CECY BELTRAN Oct 03, 2016 14:25
[2016-10-03] MEDS: MIDAZOLAM 50 MG in DEXTROSE 5% 40 ML IV SCH (16:44)
[2016-10-03] MEDS: POTASSIUM CHLORIDE 20 MEQ in SOD CHLORIDE 0.9% 100 ML IVPB SCH (18:33)
--- NOTE | 2016-10-03 18:35 | PN ---
Date/Time of Note Date/Time of Note DATE: 10/03/16 TIME: 18:34 Assessment/Plan Lines/Catheters IV Catheter Type (from [facility]): Central Line Tang in Place (from [facility]): Yes Assessment/Plan Chief Complaint/Hosp Course IMPRESSION 1. Pulmonary embolism. 2. Pneumonia. 3 Pleural effusion RECOMMENDATIONS: We will monitor the pleural effusion. Recurrent right pleural effusion. Repeat pleural fluid studies. May require VATS pleurodesis versus pigtail catheter drainage. Anticoagulation . . Discussed with the nursing staff. Problems: Subjective 24 Hr Interval Summary Constitutional: improved Exam/Review of Systems Vital Signs Vitals Vital Signs Date Time Temp Pulse Resp B/P Pulse Ox O2 Delivery O2 Flow Rate FiO2 10/03/16 17:10 84 19 95 40 10/03/16 16:30 94/59 10/03/16 16:00 97.8 Mechanical Ventilator Intake and Output 10/02/16 10/02/16 10/03/16 14:59 22:59 06:59 Intake Total 755.050 ml 969.27 ml 1324.272 ml Output Total 2770 ml 1620 ml 275 ml Balance -2014.950 ml -650.73 ml 1049.272 ml Exam Neck: non-tender, supple Respiratory: clear to auscultation, normal air movement Cardiovascular: nl pulses, regular rate and rhythm Results Result Diagram: 10/03/1640910/03/16409 YOUNG HAY MD Oct 03, 2016 18:35
--- NOTE | 2016-10-03 21:20 | RADRPT ---
PROCEDURE: CT Chest without contrast. CLINICAL INDICATION: Respiratory failure. TECHNIQUE: Helical axial sections were obtained through the chest without intravenous contrast enh ancement. Coronal and sagittal reformatted images were obtained from the axial source images. Total exam DLP is 638.56 mGy-cm. CTDIvol is 15.98 mGy. One or more of the following dose reduction taurus hniques were used: Automated exposure control, adjustment of the mA and/or kV according to patient s ize, use of iterative reconstruction technique. COMPARISON: Chest radiograph done earlier the same day. CT scan of the chest dated 09/27/2016. FINDINGS: The endotracheal tube, left arm PICC line, and nasogastric tube remain in satisfactory position. There is a large right pleural effusion and small left pleural effusion. There is associated atelec tasis in both lungs posteriorly with right worse than left. The lungs are otherwise clear with no o ther airspace or interstitial disease. There is no pulmonary nodule or mass lesion. There is no mediastinal or hilar lymphadenopathy or mass. There is no axillary, supraclavicular, or internal mammary lymphadenopathy. The thoracic aorta is not dilated. There is calcification in the aorta consistent with atherosclero sis. The heart is enlarged. There is a small pericardial effusion. There are mild degenerative changes of the spine. The osseous structures are otherwise grossly norm al with no fracture or lytic lesion. Images through the upper abdomen demonstrate normal visualized portions of the liver, spleen, and ad renals. IMPRESSION: 1. Endotracheal tube, left arm PICC line, and nasogastric tube in satisfactory position. 2. Large right pleural effusion and small left pleural effusion. 3. Atelectasis in both lungs posteriorly with right worse than left. 4. Atherosclerosis. 5. Cardiomegaly. 6. Small pericardial effusion. 7. Mild degenerative changes of the spine. 8. Otherwise unremarkable CT scan of the chest. RPTAT: QQ .Zack Gonsalez MD, MD Date Time Electronically viewed and signed by .Zack Gonsalez MD, on 10/03/2016 21:20 .R/
[2016-10-03] MEDS: AZITHROMYCIN 500MG/NS (PMX) 250 ML IVPB SCH (22:33)
[2016-10-04] VITALS (60 sets, daily range): BP systolic 81–99; BP diastolic 52–72; PULSE 63–88; RESP 14–18
[2016-10-04] MEDS: PIPER-TAZO 3.375 GM IV (PMX) 100 ML IVPB SCH ×5 (00:30→23:32)
[2016-10-04] MEDS: PROPOFOL 100 ML IV SCH ×4 (00:31→20:09)
[2016-10-04] MEDS: FENTAnyl 1,000 MCG in DEXTROSE 5% 80 ML IV SCH ×2 (01:38→20:56)
[2016-10-04] MEDS: VANCOMYCIN 1.25 GM in SOD CHLORIDE 0.9% 250 ML IVPB SCH (03:19)
[2016-10-04 05:08] LABS: BASOPHIL # 0.1 10^3/ul (0.0-0.1); BASOPHILS % 1.2 % (0.0-2.0); EOSINOPHILS # 0.4 10^3/ul (0.0-0.5); EOSINOPHILS % 8.3 % (0.0-7.0); HEMATOCRIT 35.8 % (42.0-52.0); HEMOGLOBIN 11.7 g/dl (14.0-18.0); LYMPHOCYTES # 1.4 10^3/ul (0.8-2.9); LYMPHOCYTES % 31.4 % (15.0-51.0); MEAN CORPUSCULAR HEMOGLOBIN 28.9 pg (29.0-33.0); MEAN CORPUSCULAR HGB CONC 32.7 g/dl (32.0-37.0); MEAN CORPUSCULAR VOLUME 88.5 fl (82.0-101.0); MEAN PLATELET VOLUME 10.1 fl (7.4-10.4); MONOCYTE # 0.6 10^3/ul (0.3-0.9); MONOCYTES % 13.3 % (0.0-11.0); NEUTROPHILS % 45.8 % (39.0-77.0); PLATELET COUNT 301 10^3/UL (140-440); RED BLOOD COUNT 4.04 10^6/ul (4.70-6.10); RED CELL DISTRIBUTION WIDTH 15.1 % (11.5-14.5); UNCORRECTED WBC 4.4 10^3/ul (4.8-10.8); WHITE BLOOD COUNT 4.4 10^3/ul (4.8-10.8)
[2016-10-04 05:14] LABS: ALBUMIN 2.5 g/dl (3.3-4.9); POTASSIUM 3.3 mmol/L (3.5-5.1)
[2016-10-04 05:16] LABS: CREATININE 0.79 mg/dl (0.61-1.24)
[2016-10-04 05:17] LABS: ALBUMIN/GLOBULIN RATIO 0.69; BILIRUBIN,INDIRECT 0.3 mg/dl (0-1.1); BILIRUBIN,TOTAL 0.3 mg/dl (0.2-1.3); TOTAL PROTEIN 6.1 g/dl (6.1-8.1)
[2016-10-04 05:18] LABS: CALCIUM 8.1 mg/dl (8.4-10.2)
[2016-10-04 05:24] LABS: CONDITION 1; LH ANALYZER COMMENTS 1
[2016-10-04 05:52] LABS: MAGNESIUM 1.8 mg/dl (1.7-2.5); PHOSPHORUS 3.8 mg/dl (2.5-4.9)
[2016-10-04] MEDS: INSULIN ASPART [NOVOLOG] 3 ML PEN SC SCH ×3 (06:00→12:00)
[2016-10-04] MEDS: FUROSEMIDE 40 MG INJ IV SCH ×2 (06:14→18:01)
[2016-10-04] MEDS: POTASSIUM CHLORIDE 20 MEQ in SOD CHLORIDE 0.9% 100 ML IVPB SCH ×2 (06:14→18:01)
[2016-10-04] MEDS: LISINOPRIL 5 MG TAB GTB SCH (08:23)
[2016-10-04] MEDS: METOCLOPRAMIDE 10 MG INJ IV SCH ×2 (08:23→20:40)
[2016-10-04] MEDS: FAMOTIDINE 20 MG INJ IV SCH ×2 (08:23→20:40)
[2016-10-04] MEDS: OSELTAMIVIR 75 MG CAP NGT SCH ×2 (08:23→20:40)
[2016-10-04] MEDS: ENOXAPARIN 100 MG/ML SYG SC SCH ×2 (08:24→20:54)
[2016-10-04] MEDS: MIDAZOLAM 50 MG in DEXTROSE 5% 40 ML IV SCH (08:59)
--- NOTE | 2016-10-04 12:00 | CONS ---
Date/Time of Note Date/Time of Note DATE: 10/04/16 TIME: 11:57 Assessment/Plan Assessment/Plan Chief Complaint/Hosp Course - Sepsis d/t PNA with parapneumonic effusion. Still with low grade fever - PNA with parapneumonic effusion. Could be started as CAP, other considerations include aspiration PNA - recurrent pleural effusion. s/p diagnostic thoracentesis on 09/22/16. It showed glu=74 pro <2, [id number]. No malignancy on cytology. 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 Acute hepatitis panel negative - mild leukopenia - hypokalemia - s/p hyponatremia and hypernatremia - s/p lactic acidosis Recommendations: - f/u cocci serology (pending), AFB smear (negative on 09/29, 09/30 & 10/01) and cxs (pending) - pip/tazo (09/29/2016-) to cover pneumonia with parapneumonic effusion - continue empiric tamiflu and azithromycin (10/02/16-) - f/u rapid influenza screen, PPD, legionella antigen, mycoplasma pneumoniae, chlamydia pneumoniae serology - f/u records from [facility] - continue droplet precautions for now; Problems: Consultation Date/Type/Reason Admit Date/Time Sep 15, 2016 at 16:54 Initial Consult Date 09/29/16 Type of Consultation: id Referring Provider: JAN ZHANG Exam/Review of Systems Vital Signs Vitals Vital Signs Date Time Temp Pulse Resp B/P Pulse Ox O2 Delivery O2 Flow Rate FiO2 10/04/16 09:30 88 18 89/55 97 10/04/16 09:00 Mechanical Ventilator 10/04/16 08:00 98.4 10/04/16 05:17 40 Intake and Output 10/03/16 10/03/16 10/04/16 15:00 23:00 07:00 Intake Total 1016.2 ml 1626.84 ml 1641.692 ml Output Total 1930 ml 2330 ml 430 ml Balance -913.8 ml -703.16 ml 1211.692 ml Exam Constitutional: alert, oriented Psych: nl mood/affect, no complaints Head: atraumatic, normocephalic Eyes: EOMI, nl conjunctiva Respiratory: diminished breath sounds Cardiovascular: regular rate and rhythm Gastrointestinal: nl liver, spleen, non-tender, soft Results Result Diagram: 10/04/16 0400 10/04/16 0400 Results 24 hrs Laboratory Tests Test 10/03/16 12:30 10/03/16 18:04 10/04/16 00:35 10/04/16 01:59 Arterial Blood HCO3 35.7 H Arterial Blood Base Excess 9.6 H Arterial Blood Oxygen Saturation 96.9 Sky Test ACCEPTAB Arterial Blood Gas Puncture Site Right Radial Arterial Blood Carboxyhemoglobin 0.2 Arterial Blood Date Drawn 10/03/2016 12:20:56 PM Arterial Blood Methemoglobin 0.2 Arterial Blood pCO2 (Temp correct) 54.0 H Arterial Blood pH (Temp corrected) 7.438 Arterial Blood pO2 (Temp corrected) 85.3 Blood Gas A-a O2 Differential 137.8 H Blood Gas Actual Respiration Rate 28 Blood Gas Critical Value Read Back Esvin MCCOLLUM Blood Gas Low PEEP Setting 5.0 Blood Gas Modality VENT - CPAP Blood Gas Notified Time 10/03/2016 12:41:21 PM Blood Gas Notified Whom RDIX Blood Gas Pressure Support 10 Blood Gas Specimen Source Blood arterial Blood Gas Temperature 37.0 Blood Gas Tidal Volume 430.0 FiO2 40.0 Oxyhemoglobin Percent 96.5 Total Hemoglobin 13.8 Bedside Glucose 100 78 Vancomycin Level Trough 12.1 Test 10/04/16 04:00 10/04/16 06:16 10/04/16 11:43 Alanine Aminotransferase (ALT/SGPT) 80 H Albumin 2.5 L Albumin/Globulin Ratio 0.69 Alkaline Phosphatase 178 H Anion Gap 11 Aspartate Amino Transf (AST/SGOT) 60 H Basophils # 0.1 Basophils % 1.2 Blood Morphology Comment Blood Urea Nitrogen 14 Calcium Level 8.1 L Carbon Dioxide Level 36 H Chloride Level 99 Creatinine 0.79 Direct Bilirubin 0.00 Eosinophils # 0.4 Eosinophils % 8.3 H Globulin 3.60 H Glucose Level 93 Hematocrit 35.8 L Hemoglobin 11.7 L Indirect Bilirubin 0.3 Lymphocytes # 1.4 Lymphocytes % 31.4 Magnesium Level 1.8 Mean Corpuscular Hemoglobin 28.9 L Mean Corpuscular Hemoglobin Concent 32.7 Mean Corpuscular Volume 88.5 Mean Platelet Volume 10.1 Monocytes # 0.6 Monocytes % 13.3 H Neutrophils # 2.0 Neutrophils % 45.8 Nucleated Red Blood Cells # 0.0 Nucleated Red Blood Cells % 0.0 Phosphorus Level 3.8 Platelet Count 301 # Potassium Level 3.3 L Red Blood Count 4.04 L Red Cell Distribution Width 15.1 H Sodium Level 143 Total Bilirubin 0.3 Total Protein 6.1 White Blood Count 4.4 L Bedside Glucose 91 99 Medications Medications Current Medications Lorazepam (Ativan) 0.5 mg Q6H PRN IV ANXIETY Last administered on 09/27/16 10: 59; Admin Dose 0.5 MG; Start 09/15/16 at 18:00 Ondansetron HCl (Zofran Inj) 4 mg Q6H PRN IV NAUSEA AND/OR VOMITING; Start at 18:00 Morphine Sulfate (morphine) 2 mg Q4H PRN IV PAIN LEVEL 7-10 Last administered on 09/22/16 01:30; Admin Dose 2 MG; Start 09/15/16 at 18:00 Haloperidol 5 mg 5 mg Q6H PRN IM AGITATION Last administered on 09/19/16at 10: 40; Admin Dose 5 MG; Start 09/18/16 at 11:30 Propofol (Diprivan) 100 ml @ 3.105 mls/ hr Q12H IV Last administered on 07:27; Admin Dose 12.42 MLS/HR; Start 09/19/16 at 13:30 Famotidine 20 mg 20 mg BID IV Last administered on 10/04/16 08:23; Admin Dose 20 MG; Start 09/19/16 at 21:00 Fentanyl/Dextrose (D5W) 100 ml @ 2.5 mls/hr TITRATE IV Last administered on 01:38; Admin Dose 5 MLS/HR; Start 09/23/16 at 10:00 Miscellaneous Information 1 ea NOTE XX ; Start 09/23/16 at 13:30 Glucose (Glutose) 15 gm Q15M PRN PO DECREASED GLUCOSE; Start 09/23/16 at 13:30 Glucose (Glutose) 22.5 gm Q15M PRN PO DECREASED GLUCOSE; Start 09/23/16 at 13:30 Dextrose (D50w Syringe) 25 ml Q15M PRN IV DECREASED GLUCOSE Last administered on 10/01/16 00:02; Admin Dose 25 ML; Start 09/23/16 at 13:30 Dextrose (D50w Syringe) 50 ml Q15M PRN IV DECREASED GLUCOSE; Start 09/23/16 at 13:30 Glucagon (Glucagen) 1 mg Q15M PRN IM DECREASED GLUCOSE; Start 09/23/16 at 13:30 Glucose 15 gm 15 gm Q15M PRN BUCCAL DECREASED GLUCOSE; Start 09/23/16 at 13:30 Dextrose/Sodium Chloride (D5-NS) 1,000 ml @ 50 mls/hr Q20H IV Last administered on 10/03/16 06:14; Admin Dose 50 MLS/HR; Start 09/23/16 at 16:30 Metoclopramide HCl 10 mg 10 mg Q12 IV Last administered on 10/04/16 08:23; Admin Dose 10 MG; Start 09/24/16 at 11:30 Midazolam HCl/ Dextrose (Versed/D5W) 50 ml @ 2 mls/hr TITRATE IV Last administered on 10/04/16 08:59; Admin Dose 3 MLS/HR; Start 09/25/16 at 12:00 Insulin Aspart NOVOLOG *MODERATE* ALGORI... Q6 SC ; Start 09/25/16 at 18:00 Vancomycin HCl/ Sodium Chloride (Vancocin/NS) 250 ml @ 83.333 mls/ hr Q12H IVPB Last administered on 10/04/16 03:19; Admin Dose 83.333 MLS/HR; Start 09/28 at 15:00 Acetaminophen 650 mg 650 mg Q4H PRN NGT PAIN AND OR ELEVATED TEMP Last administered on 10/02/16 00:50; Admin Dose 650 MG; Start 09/28/16 at 13:30 Piperacillin Sod/ Tazobactam Sod (Zosyn 3.375gm/ 100 ml (Pmx)) 100 ml @ 200 mls /hr Q6 IVPB Last administered on 10/04/16 06:11; Admin Dose 200 MLS/HR; Start 09/29/16 at 17:00 Enoxaparin Sodium 100 mg 100 mg Q12 SC Last administered on 10/04/16 08:24; Admin Dose 100 MG; Start 10/01/16 at 21:00 Norepinephrine (Levophed) 250 ml @ 1.875 mls/ hr TITRATE IV ; Start 09/30/16 at 19:00 Lisinopril (Zestril) 2.5 mg DAILY GTB Last administered on 10/03/16 08:43; Admin Dose 2.5 MG; Start 10/02/16 at 09:00 Oseltamivir Phosphate 75 mg 75 mg BID NGT Last administered on 10/04/16 08:23 ; Admin Dose 75 MG; Start 10/02/16 at 21:00 Azithromycin (Zithromax 500mg/ NS (Pmx)) 250 ml @ 250 mls/hr Q24H IVPB Last administered on 10/03/16 22:33; Admin Dose 250 MLS/HR; Start 10/02/16 at 20:00 ; Stop 10/06/16 at 19:59 DYLLAN PULIDO MD Oct 04, 2016 12:00
--- NOTE | 2016-10-04 12:19 | RADRPT ---
PROCEDURE: XR Chest. CLINICAL INDICATION: Shortness of breath. TECHNIQUE: Single frontal view. COMPARISON: 10/03/2016. FINDINGS: The endotracheal tube, nasogastric tube, and left subclavian vein catheter remain in satisfactory po sition. Pulmonary edema is unchanged. The heart is enlarged. Moderate bilateral pleural effusions with right worse than left are unchanged. There is no pneumothorax. IMPRESSION: 1. No change from 10/03/2016. RPTAT: QQ .Zack Gonsalez MD, MD Date Time Electronically viewed and signed by .Zack Gonsalez MD, MD on 10/04/2016 12:19 .R/
--- NOTE | 2016-10-04 12:42 | CONS ---
Date/Time of Note Date/Time of Note DATE: 10/04/16 TIME: 12:40 Consult Date/Type/Reason Admit Date/Time Sep 15, 2016 at 16:54 Type of Consultation: pulmonary Ordering Provider: JAN ZHANG Subjective Tolerated alcohol for CPAP and then became significantly distressed with evidence of increased work of breathing Now intubated sedated on mechanical ventilation Objective Vital Signs Date Time Temp Pulse Resp B/P Pulse Ox O2 Delivery O2 Flow Rate FiO2 10/04/16 12:00 69 10/04/16 09:30 18 89/55 97 10/04/16 09:00 Mechanical Ventilator 10/04/16 08:00 98.4 10/04/16 05:17 40 Intake and Output 10/03/16 10/03/16 10/04/16 15:00 23:00 07:00 Intake Total 1016.2 ml 1626.84 ml 1641.692 ml Output Total 1930 ml 2330 ml 430 ml Balance -913.8 ml -703.16 ml 1211.692 ml PHYSICAL EXAMINATION GENERAL: Chronically ill gentleman intubated on mechanical ventilation VITAL SIGNS: see below. HEENT: Pupils equal, round, and reactive to light. CARDIAC: S1, S2, CHEST: Diminished air entry bilaterally. ABDOMEN: Mildly distended. Bowel sounds present abdomen mildly distended no guarding or rebound. EXTREMITIES: No cyanosis, clubbing edema +1 NEUROLOGIC: No focal deficits. Results/Medications Result Diagram: 10/04/16 0400 10/04/16 [address] chest Right greater than left effusion and compressive atelectasis Laboratory Tests Test 10/03/16 18:04 10/04/16 00:35 10/04/16 01:59 10/04/16 04:00 Bedside Glucose 100 78 Vancomycin Level Trough 12.1 Alanine Aminotransferase (ALT/SGPT) 80 H Albumin 2.5 L Albumin/Globulin Ratio 0.69 Alkaline Phosphatase 178 H Anion Gap 11 Aspartate Amino Transf (AST/SGOT) 60 H Basophils # 0.1 Basophils % 1.2 Blood Morphology Comment Blood Urea Nitrogen 14 Calcium Level 8.1 L Carbon Dioxide Level 36 H Chloride Level 99 Creatinine 0.79 Direct Bilirubin 0.00 Eosinophils # 0.4 Eosinophils % 8.3 H Globulin 3.60 H Glucose Level 93 Hematocrit 35.8 L Hemoglobin 11.7 L Indirect Bilirubin 0.3 Lymphocytes # 1.4 Lymphocytes % 31.4 Magnesium Level 1.8 Mean Corpuscular Hemoglobin 28.9 L Mean Corpuscular Hemoglobin Concent 32.7 Mean Corpuscular Volume 88.5 Mean Platelet Volume 10.1 Monocytes # 0.6 Monocytes % 13.3 H Neutrophils # 2.0 Neutrophils % 45.8 Nucleated Red Blood Cells # 0.0 Nucleated Red Blood Cells % 0.0 Phosphorus Level 3.8 Platelet Count 301 # Potassium Level 3.3 L Red Blood Count 4.04 L Red Cell Distribution Width 15.1 H Sodium Level 143 Total Bilirubin 0.3 Total Protein 6.1 White Blood Count 4.4 L Test 10/04/16 06:16 10/04/16 11:43 Bedside Glucose 91 99 Medications Current Medications Lorazepam (Ativan) 0.5 mg Q6H PRN IV ANXIETY Last administered on 09/27/16 10: 59; Admin Dose 0.5 MG; Start 09/15/16 at 18:00 Ondansetron HCl (Zofran Inj) 4 mg Q6H PRN IV NAUSEA AND/OR VOMITING; Start at 18:00 Morphine Sulfate (morphine) 2 mg Q4H PRN IV PAIN LEVEL 7-10 Last administered on 09/22/16 01:30; Admin Dose 2 MG; Start 09/15/16 at 18:00 Haloperidol 5 mg 5 mg Q6H PRN IM AGITATION Last administered on 09/19/16at 10: 40; Admin Dose 5 MG; Start 09/18/16 at 11:30 Propofol (Diprivan) 100 ml @ 3.105 mls/ hr Q12H IV Last administered on 07:27; Admin Dose 12.42 MLS/HR; Start 09/19/16 at 13:30 Famotidine 20 mg 20 mg BID IV Last administered on 10/04/16 08:23; Admin Dose 20 MG; Start 09/19/16 at 21:00 Fentanyl/Dextrose (D5W) 100 ml @ 2.5 mls/hr TITRATE IV Last administered on 01:38; Admin Dose 5 MLS/HR; Start 09/23/16 at 10:00 Miscellaneous Information 1 ea NOTE XX ; Start 09/23/16 at 13:30 Glucose (Glutose) 15 gm Q15M PRN PO DECREASED GLUCOSE; Start 09/23/16 at 13:30 Glucose (Glutose) 22.5 gm Q15M PRN PO DECREASED GLUCOSE; Start 09/23/16 at 13:30 Dextrose (D50w Syringe) 25 ml Q15M PRN IV DECREASED GLUCOSE Last administered on 10/01/16 00:02; Admin Dose 25 ML; Start 09/23/16 at 13:30 Dextrose (D50w Syringe) 50 ml Q15M PRN IV DECREASED GLUCOSE; Start 09/23/16 at 13:30 Glucagon (Glucagen) 1 mg Q15M PRN IM DECREASED GLUCOSE; Start 09/23/16 at 13:30 Glucose 15 gm 15 gm Q15M PRN BUCCAL DECREASED GLUCOSE; Start 09/23/16 at 13:30 Dextrose/Sodium Chloride (D5-NS) 1,000 ml @ 50 mls/hr Q20H IV Last administered on 10/03/16 06:14; Admin Dose 50 MLS/HR; Start 09/23/16 at 16:30 Metoclopramide HCl 10 mg 10 mg Q12 IV Last administered on 10/04/16 08:23; Admin Dose 10 MG; Start 09/24/16 at 11:30 Midazolam HCl/ Dextrose (Versed/D5W) 50 ml @ 2 mls/hr TITRATE IV Last administered on 10/04/16 08:59; Admin Dose 3 MLS/HR; Start 09/25/16 at 12:00 Insulin Aspart (Novolog Insulin Pen) NOVOLOG *MODERATE* ALGORI... Q6 SC ; Start 09/25/16 at 18:00 Acetaminophen 650 mg 650 mg Q4H PRN NGT PAIN AND OR ELEVATED TEMP Last administered on 10/02/16 00:50; Admin Dose 650 MG; Start 09/28/16 at 13:30 Piperacillin Sod/ Tazobactam Sod (Zosyn 3.375gm/ 100 ml (Pmx)) 100 ml @ 200 mls /hr Q6 IVPB Last administered on 10/04/16 06:11; Admin Dose 200 MLS/HR; Start 09/29/16 at 17:00 Enoxaparin Sodium 100 mg 100 mg Q12 SC Last administered on 10/04/16 08:24; Admin Dose 100 MG; Start 10/01/16 at 21:00 Norepinephrine (Levophed) 250 ml @ 1.875 mls/ hr TITRATE IV ; Start 09/30/16 at 19:00 Lisinopril (Zestril) 2.5 mg DAILY GTB Last administered on 10/03/16 08:43; Admin Dose 2.5 MG; Start 10/02/16 at 09:00 Oseltamivir Phosphate 75 mg 75 mg BID NGT Last administered on 10/04/16 08:23 ; Admin Dose 75 MG; Start 10/02/16 at 21:00 Azithromycin (Zithromax 500mg/ NS (Pmx)) 250 ml @ 250 mls/hr Q24H IVPB Last administered on 10/03/16 22:33; Admin Dose 250 MLS/HR; Start 10/02/16 at 20:00 ; Stop 10/06/16 at 19:59 Assessment/Plan Chief Complaint/Hosp Course IMPRESSION: 1. Hypoxemic respiratory failure/vent dependence 2. Right sided pneumonia with complicated parapneumonic effusion s/p thoracentesis, repeat thoracentesis however x-ray shows reaccumulation. 3. Acute pulmonary emboli 4. Encephalopathy, likely toxic metabolic. 5. Transaminitis 6. FEN- Increased Na+ PLAN: 1. Recurrent right pleural effusion. Repeat pleural fluid studies. May require VATS pleurodesis versus pigtail catheter drainage. We will order chest drain placement. CPAP trial once pulmonary status improves. May require Precedex for agitation 2. check cocci serologies/TB quant gold, respiratory isolation, ID recommendations 3. continue lovenox 4. Continue Free H20 5 IV fluids per primary team Overall prognosis is guarded Problems: AMANDA STONE MD, [facility] Oct 04, 2016 12:41
--- NOTE | 2016-10-04 12:50 | PN ---
Date/Time of Note Date/Time of Note DATE: 10/04/16 TIME: 12:48 Assessment/Plan Lines/Catheters IV Catheter Type (from Nrs): Central Line Tang in Place (from Nrs): Yes Assessment/Plan Chief Complaint/Hosp Course IMPRESSION 1. Pulmonary embolism. 2. Pneumonia. 3 Pleural effusion RECOMMENDATIONS: We will monitor the pleural effusion. Recurrent right pleural effusion. Repeat pleural fluid studies. May require VATS pleurodesis versus pigtail catheter drainage. Anticoagulation . . Discussed with the nursing staff. Problems: Subjective 24 Hr Interval Summary Constitutional: improved Pain Control: mild Exam/Review of Systems Vital Signs Vitals Vital Signs Date Time Temp Pulse Resp B/P Pulse Ox O2 Delivery O2 Flow Rate FiO2 10/04/16 12:00 69 10/04/16 11:20 16 97 40 10/04/16 09:30 89/55 10/04/16 09:00 Mechanical Ventilator 10/04/16 08:00 98.4 Intake and Output 10/03/16 10/03/16 10/04/16 15:00 23:00 07:00 Intake Total 1016.2 ml 1626.84 ml 1641.692 ml Output Total 1930 ml 2330 ml 430 ml Balance -913.8 ml -703.16 ml 1211.692 ml Exam ENMT: mucosa pink and moist, nl external ears & nose, nl lips & teeth, nl nasal mucosa & septum Neck: non-tender, supple Respiratory: clear to auscultation, normal air movement Cardiovascular: nl pulses, regular rate and rhythm Results Result Diagram: 10/04/16 04010/04/16399 YOUNG HAY MD Oct 04, 2016 12:50
[2016-10-04] MEDS: DEXTROSE 5%-0.9% NACL 1,000 ML IV SCH (13:38)
--- NOTE | 2016-10-04 14:18 | PN ---
Date/Time of Note Date/Time of Note DATE: 10/04/16 TIME: 14:16 Assessment/Plan VTE Prophylaxis VTE Prophylaxis Intervention: LMWH, SCD's Lines/Catheters IV Catheter Type (from Nrs): Central Line Central line still needed: Yes Urinary Cath still in place: Yes Reason Cath still needed: urinary retention Assessment/Plan Assessment/Plan 1. Acute respiratory failure. - per Dr. Aquino from pulmonology consultation. - Continue bronchodilators and vent support. 2. Right-sided pneumonia with complicated parapneumonic effusion, status post thoracentesis. - per Dr. Hernandez from an Infectious Disease standpoint. - Continue patient on vancomycin and cefepime. 3. Acute pulmonary emboli. Continue patient on Lovenox. 4. 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 - per Dr. Woodard from cardiology standpoint. - Continue patient on Lasix. 5. Encephalopathy, likely toxic metabolic. Continue to monitor. 6. 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 7. Bilateral hand/feet edema- DVT- Right cephalic , left peroneal vein DVT. 8. Hypokalemia- replete K as neeed, Am labs. 9. Continue Pepcid for peptic ulcer disease prophylaxis. Subjective 24 Hr Interval Summary Free Text/Dictation Remains intubated and sedated. NO pressors, Very good UO. Subjective hx not possible: pt critical status Exam/Review of Systems Vital Signs Vitals Vital Signs Date Time Temp Pulse Resp B/P Pulse Ox O2 Delivery O2 Flow Rate FiO2 10/04/16 13:30 67 16 98/60 98 10/04/16 13:00 Mechanical Ventilator 10/04/16 12:00 98.9 10/04/16 11:20 40 Intake and Output 10/03/16 10/03/16 10/04/16 15:00 23:00 07:00 Intake Total 1016.2 ml 1626.84 ml 1641.692 ml Output Total 1930 ml 2330 ml 430 ml Balance -913.8 ml -703.16 ml 1211.692 ml Exam Constitutional: No distress ENMT: intubated, mucosa pink and moist Neck: No jvd Respiratory: crackles/rales, No diminished breath sounds Cardiovascular: regular rate and rhythm, No edema Gastrointestinal: soft, No distended, No rebound or guarding Genitourinary - Male: other (Tang) Neurological: other Skin: nl turgor, No diaphoresis Results Result Diagram: 10/04/16 0400 10/04/16 0400 Results 24 hrs Laboratory Tests Test 10/03/16 18:04 10/04/16 00:35 10/04/16 01:59 10/04/16 04:00 Bedside Glucose 100 78 Vancomycin Level Trough 12.1 Alanine Aminotransferase (ALT/SGPT) 80 H Albumin 2.5 L Albumin/Globulin Ratio 0.69 Alkaline Phosphatase 178 H Anion Gap 11 Aspartate Amino Transf (AST/SGOT) 60 H Basophils # 0.1 Basophils % 1.2 Blood Morphology Comment Blood Urea Nitrogen 14 Calcium Level 8.1 L Carbon Dioxide Level 36 H Chloride Level 99 Creatinine 0.79 Direct Bilirubin 0.00 Eosinophils # 0.4 Eosinophils % 8.3 H Globulin 3.60 H Glucose Level 93 Hematocrit 35.8 L Hemoglobin 11.7 L Indirect Bilirubin 0.3 Lymphocytes # 1.4 Lymphocytes % 31.4 Magnesium Level 1.8 Mean Corpuscular Hemoglobin 28.9 L Mean Corpuscular Hemoglobin Concent 32.7 Mean Corpuscular Volume 88.5 Mean Platelet Volume 10.1 Monocytes # 0.6 Monocytes % 13.3 H Neutrophils # 2.0 Neutrophils % 45.8 Nucleated Red Blood Cells # 0.0 Nucleated Red Blood Cells % 0.0 Phosphorus Level 3.8 Platelet Count 301 # Potassium Level 3.3 L Red Blood Count 4.04 L Red Cell Distribution Width 15.1 H Sodium Level 143 Total Bilirubin 0.3 Total Protein 6.1 White Blood Count 4.4 L Test 10/04/16 06:16 10/04/16 11:43 Bedside Glucose 91 99 Medications Medications Current Medications Lorazepam (Ativan) 0.5 mg Q6H PRN IV ANXIETY Last administered on 09/27/16 10: 59; Admin Dose 0.5 MG; Start 09/15/16 at 18:00 Ondansetron HCl (Zofran Inj) 4 mg Q6H PRN IV NAUSEA AND/OR VOMITING; Start at 18:00 Morphine Sulfate (morphine) 2 mg Q4H PRN IV PAIN LEVEL 7-10 Last administered on 09/22/16 01:30; Admin Dose 2 MG; Start 09/15/16 at 18:00 Haloperidol 5 mg 5 mg Q6H PRN IM AGITATION Last administered on 09/19/16at 10: 40; Admin Dose 5 MG; Start 09/18/16 at 11:30 Propofol (Diprivan) 100 ml @ 3.105 mls/ hr Q12H IV Last administered on 07:27; Admin Dose 12.42 MLS/HR; Start 09/19/16 at 13:30 Famotidine 20 mg 20 mg BID IV Last administered on 10/04/16 08:23; Admin Dose 20 MG; Start 09/19/16 at 21:00 Fentanyl/Dextrose (D5W) 100 ml @ 2.5 mls/hr TITRATE IV Last administered on 01:38; Admin Dose 5 MLS/HR; Start 09/23/16 at 10:00 Miscellaneous Information 1 ea NOTE XX ; Start 09/23/16 at 13:30 Glucose (Glutose) 15 gm Q15M PRN PO DECREASED GLUCOSE; Start 09/23/16 at 13:30 Glucose (Glutose) 22.5 gm Q15M PRN PO DECREASED GLUCOSE; Start 09/23/16 at 13:30 Dextrose (D50w Syringe) 25 ml Q15M PRN IV DECREASED GLUCOSE Last administered on 10/01/16 00:02; Admin Dose 25 ML; Start 09/23/16 at 13:30 Dextrose (D50w Syringe) 50 ml Q15M PRN IV DECREASED GLUCOSE; Start 09/23/16 at 13:30 Glucagon (Glucagen) 1 mg Q15M PRN IM DECREASED GLUCOSE; Start 09/23/16 at 13:30 Glucose 15 gm 15 gm Q15M PRN BUCCAL DECREASED GLUCOSE; Start 09/23/16 at 13:30 Dextrose/Sodium Chloride (D5-NS) 1,000 ml @ 50 mls/hr Q20H IV Last administered on 10/04/16 13:38; Admin Dose 50 MLS/HR; Start 09/23/16 at 16:30 Metoclopramide HCl 10 mg 10 mg Q12 IV Last administered on 10/04/16 08:23; Admin Dose 10 MG; Start 09/24/16 at 11:30 Midazolam HCl/ Dextrose (Versed/D5W) 50 ml @ 2 mls/hr TITRATE IV Last administered on 10/04/16 08:59; Admin Dose 3 MLS/HR; Start 09/25/16 at 12:00 Insulin Aspart (Novolog Insulin Pen) NOVOLOG *MODERATE* ALGORI... Q6 SC ; Start 09/25/16 at 18:00 Acetaminophen 650 mg 650 mg Q4H PRN NGT PAIN AND OR ELEVATED TEMP Last administered on 10/02/16 00:50; Admin Dose 650 MG; Start 09/28/16 at 13:30 Piperacillin Sod/ Tazobactam Sod (Zosyn 3.375gm/ 100 ml (Pmx)) 100 ml @ 200 mls /hr Q6 IVPB Last administered on 10/04/16 13:38; Admin Dose 200 MLS/HR; Start 09/29/16 at 17:00 Enoxaparin Sodium 100 mg 100 mg Q12 SC Last administered on 10/04/16 08:24; Admin Dose 100 MG; Start 10/01/16 at 21:00 Norepinephrine (Levophed) 250 ml @ 1.875 mls/ hr TITRATE IV ; Start 09/30/16 at 19:00 Lisinopril (Zestril) 2.5 mg DAILY GTB Last administered on 10/03/16 08:43; Admin Dose 2.5 MG; Start 10/02/16 at 09:00 Oseltamivir Phosphate 75 mg 75 mg BID NGT Last administered on 10/04/16 08:23 ; Admin Dose 75 MG; Start 10/02/16 at 21:00 Azithromycin (Zithromax 500mg/ NS (Pmx)) 250 ml @ 250 mls/hr Q24H IVPB Last administered on 10/03/16 22:33; Admin Dose 250 MLS/HR; Start 10/02/16 at 20:00 ; Stop 10/06/16 at 19:59 Procedures Procedures PROCEDURE: XR Chest. CLINICAL INDICATION: Shortness of breath. TECHNIQUE: Single frontal view. COMPARISON: 10/03/2016. FINDINGS: The endotracheal tube, nasogastric tube, and left subclavian vein catheter remain in satisfactory position. Pulmonary edema is unchanged. The heart is enlarged. Moderate bilateral pleural effusions with right worse than left are unchanged. There is no pneumothorax. IMPRESSION: 1. No change from 10/03/2016. RPTAT: QQ .Zack Gonsalez MD, Date Time Electronically viewed and signed by .Zack Gonsalez MD, on 10/04/2016 12:19 NANCY GUTIÉRREZ MD Oct 04, 2016 14:18
[2016-10-04] MEDS: AZITHROMYCIN 500MG/NS (PMX) 250 ML IVPB SCH (20:39)
[2016-10-04 23:16] LABS: FORTY EIGHT HOUR READING 0 mm (0-9)
[2016-10-05] VITALS (67 sets, daily range): BP systolic 84–109; BP diastolic 48–82; PULSE 66–92; RESP 14–18
[2016-10-05] MEDS: PROPOFOL 100 ML IV SCH ×3 (01:11→16:12)
[2016-10-05] MEDS: MIDAZOLAM 50 MG in DEXTROSE 5% 40 ML IV SCH ×2 (01:13→20:19)
[2016-10-05 04:44] LABS: HEMATOCRIT 37.6 % (42.0-52.0); HEMOGLOBIN 12.3 g/dl (14.0-18.0); MEAN CORPUSCULAR HGB CONC 32.8 g/dl (32.0-37.0); MEAN CORPUSCULAR VOLUME 88.5 fl (82.0-101.0); MEAN PLATELET VOLUME 9.8 fl (7.4-10.4); PLATELET COUNT 336 10^3/UL (140-440); RED BLOOD COUNT 4.25 10^6/ul (4.70-6.10); RED CELL DISTRIBUTION WIDTH 15.1 % (11.5-14.5); UNCORRECTED WBC 5.6 10^3/ul (4.8-10.8); WHITE BLOOD COUNT 5.6 10^3/ul (4.8-10.8)
[2016-10-05 04:49] LABS: CONDITION 1; LH ANALYZER COMMENTS 1
[2016-10-05 04:57] LABS: INR 1.08; PT RATIO 1.1
[2016-10-05 04:58] LABS: PARTIAL THROMBOPLASTIN TIME 35.7 Sec (25.0-35.0)
[2016-10-05 05:12] LABS: POTASSIUM 3.7 mmol/L (3.5-5.1)
[2016-10-05 05:14] LABS: CREATININE 0.71 mg/dl (0.61-1.24)
[2016-10-05 05:15] LABS: CALCIUM 8.2 mg/dl (8.4-10.2); MAGNESIUM 1.8 mg/dl (1.7-2.5); PHOSPHORUS 4.3 mg/dl (2.5-4.9)
[2016-10-05 05:58] LABS: THROMBIN TIME 31.6 SEC (13.8-19.1)
[2016-10-05] MEDS: PIPER-TAZO 3.375 GM IV (PMX) 100 ML IVPB SCH ×3 (06:41→17:39)
[2016-10-05] MEDS: POTASSIUM CHLORIDE 20 MEQ in SOD CHLORIDE 0.9% 100 ML IVPB SCH ×2 (06:47→18:13)
[2016-10-05] MEDS: FUROSEMIDE 40 MG INJ IV SCH ×2 (06:47→18:13)
--- NOTE | 2016-10-05 08:47 | RADRPT ---
PROCEDURE: XR Chest. CLINICAL INDICATION: Pneumonia, CHF TECHNIQUE: Single frontal chest x-ray. COMPARISON: 10/04/2016 FINDINGS: Endotracheal tube, nasogastric tube and left subclavian central venous catheter remain in place. Bennett zy bibasilar pulmonary opacities are again noted, grossly stable. No pneumothorax is identified. T here is stable mild cardiomegaly. The osseous structures are unremarkable. IMPRESSION: 1. Lines and tubes remain in place. 2. Grossly stable hazy bibasilar pulmonary opacities, likely atelectasis and/or mild to moderate pl eural effusions. 3. Stable mild cardiomegaly. 4. No significant interval change. RPTAT: PP .Raj Davis MD, MD Date Time Electronically viewed and signed by .Raj Davis MD, on 10/05/2016 08:47 .R/
[2016-10-05] MEDS: LISINOPRIL 5 MG TAB GTB SCH (09:00)
[2016-10-05 09:23] LABS: BASOPHIL # 0.2 10^3/ul (0.0-0.1); EOSINOPHILS # 0.4 10^3/ul (0.0-0.5); LYMPHOCYTES # 1.7 10^3/ul (0.8-2.9); MONOCYTE # 0.6 10^3/ul (0.3-0.9); NEUTROPHIL # 2.2 10^3/ul (1.6-7.5)
[2016-10-05] MEDS: METOCLOPRAMIDE 10 MG INJ IV SCH ×2 (09:51→20:10)
[2016-10-05] MEDS: FAMOTIDINE 20 MG INJ IV SCH ×2 (09:51→20:09)
[2016-10-05] MEDS: DEXTROSE 5%-0.9% NACL 1,000 ML IV SCH (09:51)
[2016-10-05] MEDS: OSELTAMIVIR 75 MG CAP NGT SCH ×2 (09:51→20:10)
[2016-10-05] MEDS: ENOXAPARIN 100 MG/ML SYG SC SCH (09:57)
--- NOTE | 2016-10-05 10:36 | CONS ---
Date/Time of Note Date/Time of Note DATE: 10/05/16 TIME: 10:35 Consult Date/Type/Reason Admit Date/Time Sep 15, 2016 at 16:54 Type of Consultation: pulmonary Ordering Provider: JAN ZHANG Subjective Failed CPAP weaning trial yesterday Remains awake alert and comfortable Objective Vital Signs Date Time Temp Pulse Resp B/P Pulse Ox O2 Delivery O2 Flow Rate FiO2 10/05/16 10:00 73 16 96/63 Mechanical Ventilator 10/05/16 09:30 98 10/05/16 08:00 98.7 10/05/16 08:00 40 Intake and Output 10/04/16 10/04/16 10/05/16 15:00 23:00 07:00 Intake Total 971.36 ml 1513.545 ml 1221.82 ml Output Total 2300 ml 2570 ml 865 ml Balance -1328.64 ml -1056.455 ml 356.82 ml PHYSICAL EXAMINATION GENERAL: Chronically ill gentleman intubated on mechanical ventilation VITAL SIGNS: see below. HEENT: Pupils equal, round, and reactive to light. CARDIAC: S1, S2, CHEST: Diminished air entry bilaterally. ABDOMEN: Mildly distended. Bowel sounds present abdomen mildly distended no guarding or rebound. EXTREMITIES: No cyanosis, clubbing edema +1 NEUROLOGIC: No focal deficits. Results/Medications Result Diagram: 10/05/16 0427 10/05/16 0427 Results 24 hrs Laboratory Tests Test 10/04/16 11:43 10/05/16 04:27 Bedside Glucose 99 Activated Partial Thromboplast Time 35.7 H Anion Gap 13 Band Neutrophils % 11.0 H Basophils # 0.2 H Basophils % 3.0 H Blood Morphology Comment Blood Urea Nitrogen 14 Calcium Level 8.2 L Carbon Dioxide Level 34 H Chloride Level 101 Creatinine 0.71 Differential Comment MANUAL DIFF Eosinophils # 0.4 Eosinophils % 7.0 Glucose Level 93 Hematocrit 37.6 L Hemoglobin 12.3 L INR International Normalized Ratio 1.08 Lymphocytes # 1.7 Lymphocytes % 30.0 Magnesium Level 1.8 Mean Corpuscular Hemoglobin 29.0 Mean Corpuscular Hemoglobin Concent 32.8 Mean Corpuscular Volume 88.5 Mean Platelet Volume 9.8 Monocytes # 0.6 Monocytes % 10.0 Neutrophils # 2.2 Neutrophils % 39.0 Nucleated Red Blood Cells # Nucleated Red Blood Cells % Phosphorus Level 4.3 Platelet Count 336 # Potassium Level 3.7 Prothrombin Time 14.0 Prothrombin Time Ratio 1.1 Red Blood Count 4.25 L Red Cell Distribution Width 15.1 H Sodium Level 144 Thrombin Time 31.6 H White Blood Count 5.6 # Medications Current Medications Lorazepam (Ativan) 0.5 mg Q6H PRN IV ANXIETY Last administered on 09/27/16 10: 59; Admin Dose 0.5 MG; Start 09/15/16 at 18:00 Ondansetron HCl (Zofran Inj) 4 mg Q6H PRN IV NAUSEA AND/OR VOMITING; Start at 18:00 Morphine Sulfate (morphine) 2 mg Q4H PRN IV PAIN LEVEL 7-10 Last administered on 09/22/16 01:30; Admin Dose 2 MG; Start 09/15/16 at 18:00 Haloperidol 5 mg 5 mg Q6H PRN IM AGITATION Last administered on 09/19/16at 10: 40; Admin Dose 5 MG; Start 09/18/16 at 11:30 Propofol (Diprivan) 100 ml @ 3.105 mls/ hr Q12H IV Last administered on 07:25; Admin Dose 12.42 MLS/HR; Start 09/19/16 at 13:30 Famotidine 20 mg 20 mg BID IV Last administered on 10/05/16 09:51; Admin Dose 20 MG; Start 09/19/16 at 21:00 Fentanyl 1000 mcg/ Dextrose 100 ml @ 2.5 mls/hr TITRATE IV Last administered on 10/04/16 20:56; Admin Dose 5 MLS/HR; Start 09/23/16 at 10:00 Dextrose/Sodium Chloride (D5-NS) 1,000 ml @ 50 mls/hr Q20H IV Last administered on 10/05/16 09:51; Admin Dose 50 MLS/HR; Start 09/23/16 at 16:30 Metoclopramide HCl 10 mg 10 mg Q12 IV Last administered on 10/05/16 09:51; Admin Dose 10 MG; Start 09/24/16 at 11:30 Midazolam HCl/ Dextrose (Versed/D5W) 50 ml @ 2 mls/hr TITRATE IV Last administered on 10/05/16 01:13; Admin Dose 3 MLS/HR; Start 09/25/16 at 12:00 Acetaminophen 650 mg 650 mg Q4H PRN NGT PAIN AND OR ELEVATED TEMP Last administered on 10/02/16 00:50; Admin Dose 650 MG; Start 09/28/16 at 13:30 Piperacillin Sod/ Tazobactam Sod (Zosyn 3.375gm/ 100 ml (Pmx)) 100 ml @ 200 mls /hr Q6 IVPB Last administered on 10/05/16 06:41; Admin Dose 200 MLS/HR; Start 09/29/16 at 17:00 Enoxaparin Sodium 100 mg 100 mg Q12 SC Last administered on 10/05/16 09:57; Admin Dose 100 MG; Start 10/01/16 at 21:00 Norepinephrine (Levophed) 250 ml @ 1.875 mls/ hr TITRATE IV ; Start 09/30/16 at 19:00 Lisinopril (Zestril) 2.5 mg DAILY GTB Last administered on 10/03/16 08:43; Admin Dose 2.5 MG; Start 10/02/16 at 09:00 Oseltamivir Phosphate 75 mg 75 mg BID NGT Last administered on 10/05/16 09:51 ; Admin Dose 75 MG; Start 10/02/16 at 21:00 Azithromycin (Zithromax 500mg/ NS (Pmx)) 250 ml @ 250 mls/hr Q24H IVPB Last administered on 10/04/16 20:39; Admin Dose 250 MLS/HR; Start 10/02/16 at 20:00 ; Stop 10/06/16 at 19:59 Assessment/Plan Chief Complaint/Hosp Course IMPRESSION: 1. Hypoxemic respiratory failure/vent dependence 2. Right sided pneumonia with complicated parapneumonic effusion s/p thoracentesis, repeat thoracentesis however x-ray shows reaccumulation. 3. Acute pulmonary emboli 4. Encephalopathy, likely toxic metabolic. 5. Transaminitis 6. FEN- Increased Na+ PLAN: 1. Recurrent right pleural effusion. Repeat pleural fluid studies. May require VATS pleurodesis versus pigtail catheter drainage. We will order chest drain placement. CPAP trial once pulmonary status improves. May require Precedex for agitation 2. check cocci serologies/TB quant gold, respiratory isolation, ID recommendations 3. continue lovenox 4. Continue Free H20 5 IV fluids per primary team Overall prognosis is guarded Problems: AMANDA STONE MD, [facility] Oct 05, 2016 10:36
--- NOTE | 2016-10-05 11:07 | CONS ---
Date/Time of Note Date/Time of Note DATE: 10/05/16 TIME: 10:59 Assessment/Plan Assessment/Plan Chief Complaint/Hosp Course - Sepsis d/t PNA with parapneumonic effusion. - PNA with parapneumonic effusion. Could be started as CAP, other considerations include aspiration PNA - recurrent right pleural effusion. s/p diagnostic thoracentesis on 09/22/16. It showed glu=74 pro <2, LRO=[id number]. No malignancy on cytology. s/p repeat thoracentesis 10/01/16. 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 Acute hepatitis panel negative - mild leukopenia - hypokalemia - s/p hyponatremia and hypernatremia - s/p lactic acidosis - s/p Vanco (09/19/16-10/04/16) Recommendations: - f/u cocci serology (pending), AFB smear (negative on 09/29, 09/30 & 10/01) - continue pip/tazo (09/29/2016-) to cover pneumonia with parapneumonic effusion - continue empiric tamiflu to complete a 5 day course and azithromycin (10/02/16- ) - f/u rapid influenza screen (negative), PPD (negative), legionella antigen, mycoplasma pneumoniae, chlamydia pneumoniae serology, and respiratory viral panel (pending) - f/u records from [facility] - continue droplet precautions for now until respiratory viral panel results are back - agree with chest tube placement as d/w Dr. Aquino and Dr. Luna - management d/w ICU RNs, Rodrigo & Alison - Above d/w Dr. Osullivan - critical care time spent: 38 min Problems: Consultation Date/Type/Reason Admit Date/Time Sep 15, 2016 at 16:54 Initial Consult Date 09/29/16 Type of Consultation: Infectious Disease Referring Provider: JAN ZHANG 24 HR Interval Summary Free Text/Dictation Remains afebrile, orally intubated and sedated on propofol, fentanyl and versed per RN Rodrigo; able to reach pt's sister for consent issues. Unable to do ROS d/t sedation. Planning for Chest tube placement d/t recurrent right pleural effusion despite two thoracentesis per d/w Dr. Aquino. Exam/Review of Systems Vital Signs Vitals Vital Signs Date Time Temp Pulse Resp B/P Pulse Ox O2 Delivery O2 Flow Rate FiO2 10/05/16 10:30 74 16 92/58 10/05/16 10:00 Mechanical Ventilator 10/05/16 09:30 98 10/05/16 08:00 98.7 10/05/16 08:00 40 Intake and Output 10/04/16 10/04/16 10/05/16 15:00 23:00 07:00 Intake Total 971.36 ml 1513.545 ml 1221.82 ml Output Total 2300 ml 2570 ml 865 ml Balance -1328.64 ml -1056.455 ml 356.82 ml Exam Constitutional: other (orally intubated and sedated), well developed Head: atraumatic, normocephalic Eyes: PERRL, nl sclera ENMT: intubated, other (no thrush noted but exam limited) Neck: supple, No masses Respiratory: diminished breath sounds, other (left subclavian central line c/d/ i) Cardiovascular: edema, nl pulses, regular rate and rhythm Gastrointestinal: bowel sounds, other (NGT with TF intact), soft Genitourinary - Male: nl penis, nl scrotum, other (Tang cath intact with clear yellow urine) Musculoskeletal: swelling Extremities: edema, normal pulses, No clubbing, No cyanosis Neurological: other (Sedated) Skin: nl turgor, other (Multiple tattoos including 2 flags on the left bicep area and the name Missy on ISAIAH) Results Result Diagram: 10/05/1642610/05/16426 Results 24 hrs Laboratory Tests Test 10/04/16 11:43 10/05/16 04:27 Bedside Glucose 99 Activated Partial Thromboplast Time 35.7 H Anion Gap 13 Band Neutrophils % 11.0 H Basophils # 0.2 H Basophils % 3.0 H Blood Morphology Comment Blood Urea Nitrogen 14 Calcium Level 8.2 L Carbon Dioxide Level 34 H Chloride Level 101 Creatinine 0.71 Differential Comment MANUAL DIFF Eosinophils # 0.4 Eosinophils % 7.0 Glucose Level 93 Hematocrit 37.6 L Hemoglobin 12.3 L INR International Normalized Ratio 1.08 Lymphocytes # 1.7 Lymphocytes % 30.0 Magnesium Level 1.8 Mean Corpuscular Hemoglobin 29.0 Mean Corpuscular Hemoglobin Concent 32.8 Mean Corpuscular Volume 88.5 Mean Platelet Volume 9.8 Monocytes # 0.6 Monocytes % 10.0 Neutrophils # 2.2 Neutrophils % 39.0 Nucleated Red Blood Cells # Nucleated Red Blood Cells % Phosphorus Level 4.3 Platelet Count 336 # Potassium Level 3.7 Prothrombin Time 14.0 Prothrombin Time Ratio 1.1 Red Blood Count 4.25 L Red Cell Distribution Width 15.1 H Sodium Level 144 Thrombin Time 31.6 H White Blood Count 5.6 # Medications Medications Current Medications Lorazepam (Ativan) 0.5 mg Q6H PRN IV ANXIETY Last administered on 09/27/16 10: 59; Admin Dose 0.5 MG; Start 09/15/16 at 18:00 Ondansetron HCl (Zofran Inj) 4 mg Q6H PRN IV NAUSEA AND/OR VOMITING; Start at 18:00 Morphine Sulfate (morphine) 2 mg Q4H PRN IV PAIN LEVEL 7-10 Last administered on 09/22/16 01:30; Admin Dose 2 MG; Start 09/15/16 at 18:00 Haloperidol 5 mg 5 mg Q6H PRN IM AGITATION Last administered on 09/19/16at 10: 40; Admin Dose 5 MG; Start 09/18/16 at 11:30 Propofol (Diprivan) 100 ml @ 3.105 mls/ hr Q12H IV Last administered on 07:25; Admin Dose 12.42 MLS/HR; Start 09/19/16 at 13:30 Famotidine 20 mg 20 mg BID IV Last administered on 10/05/16 09:51; Admin Dose 20 MG; Start 09/19/16 at 21:00 Fentanyl 1000 mcg/ Dextrose 100 ml @ 2.5 mls/hr TITRATE IV Last administered on 10/04/16 20:56; Admin Dose 5 MLS/HR; Start 09/23/16 at 10:00 Dextrose/Sodium Chloride (D5-NS) 1,000 ml @ 50 mls/hr Q20H IV Last administered on 10/05/16 09:51; Admin Dose 50 MLS/HR; Start 09/23/16 at 16:30 Metoclopramide HCl 10 mg 10 mg Q12 IV Last administered on 10/05/16 09:51; Admin Dose 10 MG; Start 09/24/16 at 11:30 Midazolam HCl/ Dextrose (Versed/D5W) 50 ml @ 2 mls/hr TITRATE IV Last administered on 10/05/16 01:13; Admin Dose 3 MLS/HR; Start 09/25/16 at 12:00 Acetaminophen 650 mg 650 mg Q4H PRN NGT PAIN AND OR ELEVATED TEMP Last administered on 10/02/16 00:50; Admin Dose 650 MG; Start 09/28/16 at 13:30 Piperacillin Sod/ Tazobactam Sod (Zosyn 3.375gm/ 100 ml (Pmx)) 100 ml @ 200 mls /hr Q6 IVPB Last administered on 10/05/16 06:41; Admin Dose 200 MLS/HR; Start 09/29/16 at 17:00 Enoxaparin Sodium 100 mg 100 mg Q12 SC Last administered on 10/05/16 09:57; Admin Dose 100 MG; Start 10/01/16 at 21:00 Norepinephrine (Levophed) 250 ml @ 1.875 mls/ hr TITRATE IV ; Start 09/30/16 at 19:00 Lisinopril (Zestril) 2.5 mg DAILY GTB Last administered on 10/03/16 08:43; Admin Dose 2.5 MG; Start 10/02/16 at 09:00 Oseltamivir Phosphate 75 mg 75 mg BID NGT Last administered on 10/05/16 09:51 ; Admin Dose 75 MG; Start 10/02/16 at 21:00 Azithromycin (Zithromax 500mg/ NS (Pmx)) 250 ml @ 250 mls/hr Q24H IVPB Last administered on 10/04/16 20:39; Admin Dose 250 MLS/HR; Start 10/02/16 at 20:00 ; Stop 10/06/16 at 19:59 Procedures Procedures CXR 10/05/16: 1. Lines and tubes remain in place. 2. Grossly stable hazy bibasilar pulmonary opacities, likely atelectasis and/ or mild to moderate pleural effusions. 3. Stable mild cardiomegaly. 4. No significant interval change. Chest CT 10/03/16: 1. Endotracheal tube, left arm PICC line, and nasogastric tube in satisfactory position. 2. Large right pleural effusion and small left pleural effusion. 3. Atelectasis in both lungs posteriorly with right worse than left. 4. Atherosclerosis. 5. Cardiomegaly. 6. Small pericardial effusion. 7. Mild degenerative changes of the spine. 8. Otherwise unremarkable CT scan of the chest. LAURA OJEDA NP Oct 05, 2016 11:06
--- NOTE | 2016-10-05 15:24 | PN ---
Date/Time of Note Date/Time of Note DATE: 10/05/16 TIME: 15:14 Assessment/Plan VTE Prophylaxis VTE Prophylaxis Intervention: SCD's Lines/Catheters IV Catheter Type (from Nrs): Central Line Central line still needed: Yes Urinary Cath still in place: Yes Reason Cath still needed: urinary retention Assessment/Plan Chief Complaint/Hosp Course ASSESSMENT AND PLAN: 1. Acute respiratory failure. Dr. Aquino is following the patient from pulmonology consultation. Continue bronchodilators and vent weaning per pulmonology. 2. Right-sided pneumonia with complicated parapneumonic effusion, status post thoracentesis. Pending chest tube placement. antibiotics per Dr. Osullivan group following, Infectious Disease standpoint. 3. Acute pulmonary emboli. Continue patient on Lovenox. 4. 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 Continue patient on Lasix. Dr. Woodard is following from cardiology standpoint. 5. Encephalopathy, likely toxic metabolic. Continue to monitor. 6. 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 Continue Pepcid for peptic ulcer disease prophylaxis. Further recommendations based on clinical course. Plan of care discussed with Dr. Patel. Problems: Subjective 24 Hr Interval Summary Free Text/Dictation Patient continues to be on ventilator support, no fever nausea vomiting reported. Exam/Review of Systems Vital Signs Vitals Vital Signs Date Time Temp Pulse Resp B/P Pulse Ox O2 Delivery O2 Flow Rate FiO2 10/05/16 14:30 68 16 93/67 97 Mechanical Ventilator 10/05/16 13:15 40 10/05/16 12:00 98.7 Intake and Output 10/04/16 10/04/16 10/05/16 15:00 23:00 07:00 Intake Total 971.36 ml 1513.545 ml 1221.82 ml Output Total 2300 ml 2570 ml 865 ml Balance -1328.64 ml -1056.455 ml 356.82 ml Exam GENERAL: Well-developed, well-nourished male currently sedated, orally intubated on vent. NECK: Supple. No mass, no thyromegaly. LUNGS: Diminished with scattered rhonchi bilaterally. HEART: Normal S1, S2. No murmurs, gallops, clicks, rubs noted. ABDOMEN: Round, soft, nondistended, nontender. Bowel sounds present. EXTREMITIES: No edema, clubbing, cyanosis. Pulses equal bilaterally 2+. SKIN: There is no rash. NEUROLOGIC: The patient is sedated. Results Result Diagram: 10/05/1642610/05/16426 Results 24 hrs Laboratory Tests Test 10/05/16 04:27 Activated Partial Thromboplast Time 35.7 H Anion Gap 13 Band Neutrophils % 11.0 H Basophils # 0.2 H Basophils % 3.0 H Blood Morphology Comment Blood Urea Nitrogen 14 Calcium Level 8.2 L Carbon Dioxide Level 34 H Chloride Level 101 Creatinine 0.71 Differential Comment MANUAL DIFF Eosinophils # 0.4 Eosinophils % 7.0 Glucose Level 93 Hematocrit 37.6 L Hemoglobin 12.3 L INR International Normalized Ratio 1.08 Lymphocytes # 1.7 Lymphocytes % 30.0 Magnesium Level 1.8 Mean Corpuscular Hemoglobin 29.0 Mean Corpuscular Hemoglobin Concent 32.8 Mean Corpuscular Volume 88.5 Mean Platelet Volume 9.8 Monocytes # 0.6 Monocytes % 10.0 Neutrophils # 2.2 Neutrophils % 39.0 Nucleated Red Blood Cells # Nucleated Red Blood Cells % Phosphorus Level 4.3 Platelet Count 336 # Potassium Level 3.7 Prothrombin Time 14.0 Prothrombin Time Ratio 1.1 Red Blood Count 4.25 L Red Cell Distribution Width 15.1 H Sodium Level 144 Thrombin Time 31.6 H White Blood Count 5.6 # Medications Medications Current Medications Lorazepam (Ativan) 0.5 mg Q6H PRN IV ANXIETY Last administered on 09/27/16 10: 59; Admin Dose 0.5 MG; Start 09/15/16 at 18:00 Ondansetron HCl (Zofran Inj) 4 mg Q6H PRN IV NAUSEA AND/OR VOMITING; Start at 18:00 Morphine Sulfate (morphine) 2 mg Q4H PRN IV PAIN LEVEL 7-10 Last administered on 09/22/16 01:30; Admin Dose 2 MG; Start 09/15/16 at 18:00 Haloperidol 5 mg 5 mg Q6H PRN IM AGITATION Last administered on 09/19/16at 10: 40; Admin Dose 5 MG; Start 09/18/16 at 11:30 Propofol (Diprivan) 100 ml @ 3.105 mls/ hr Q12H IV Last administered on 07:25; Admin Dose 12.42 MLS/HR; Start 09/19/16 at 13:30 Famotidine 20 mg 20 mg BID IV Last administered on 10/05/16 09:51; Admin Dose 20 MG; Start 09/19/16 at 21:00 Fentanyl 1000 mcg/ Dextrose 100 ml @ 2.5 mls/hr TITRATE IV Last administered on 10/04/16 20:56; Admin Dose 5 MLS/HR; Start 09/23/16 at 10:00 Dextrose/Sodium Chloride (D5-NS) 1,000 ml @ 50 mls/hr Q20H IV Last administered on 10/05/16 09:51; Admin Dose 50 MLS/HR; Start 09/23/16 at 16:30 Metoclopramide HCl 10 mg 10 mg Q12 IV Last administered on 10/05/16 09:51; Admin Dose 10 MG; Start 09/24/16 at 11:30 Midazolam HCl/ Dextrose (Versed/D5W) 50 ml @ 2 mls/hr TITRATE IV Last administered on 10/05/16 01:13; Admin Dose 3 MLS/HR; Start 09/25/16 at 12:00 Acetaminophen 650 mg 650 mg Q4H PRN NGT PAIN AND OR ELEVATED TEMP Last administered on 10/02/16 00:50; Admin Dose 650 MG; Start 09/28/16 at 13:30 Piperacillin Sod/ Tazobactam Sod (Zosyn 3.375gm/ 100 ml (Pmx)) 100 ml @ 200 mls /hr Q6 IVPB Last administered on 10/05/16 12:34; Admin Dose 200 MLS/HR; Start 09/29/16 at 17:00 Enoxaparin Sodium 100 mg 100 mg Q12 SC Last administered on 10/05/16 09:57; Admin Dose 100 MG; Start 10/01/16 at 21:00; Status Future Hold Norepinephrine (Levophed) 250 ml @ 1.875 mls/ hr TITRATE IV ; Start 09/30/16 at 19:00 Lisinopril (Zestril) 2.5 mg DAILY GTB Last administered on 10/03/16 08:43; Admin Dose 2.5 MG; Start 10/02/16 at 09:00 Oseltamivir Phosphate 75 mg 75 mg BID NGT Last administered on 10/05/16 09:51 ; Admin Dose 75 MG; Start 10/02/16 at 21:00 Azithromycin (Zithromax 500mg/ NS (Pmx)) 250 ml @ 250 mls/hr Q24H IVPB Last administered on 10/04/16 20:39; Admin Dose 250 MLS/HR; Start 10/02/16 at 20:00 ; Stop 10/06/16 at 19:59 JAN ZHANG Oct 05, 2016 15:24
--- NOTE | 2016-10-05 18:18 | PN ---
Date/Time of Note Date/Time of Note DATE: 10/05/16 TIME: 18:17 Assessment/Plan Lines/Catheters IV Catheter Type (from Nrsg): Central Line Tang in Place (from Nrsg): Yes Assessment/Plan Chief Complaint/Hosp Course IMPRESSION 1. Pulmonary embolism. 2. Pneumonia. 3 Pleural effusion RECOMMENDATIONS: We will monitor the pleural effusion. Recurrent right pleural effusion. Repeat pleural fluid studies. May require VATS pleurodesis versus pigtail catheter drainage. Anticoagulation . . Discussed with the nursing staff. Problems: Subjective 24 Hr Interval Summary Constitutional: improved Pain Control: mild Exam/Review of Systems Vital Signs Vitals Vital Signs Date Time Temp Pulse Resp B/P Pulse Ox O2 Delivery O2 Flow Rate FiO2 10/05/16 18:00 90 17 100/73 94 Mechanical Ventilator 10/05/16 17:40 40 10/05/16 16:00 98.5 Intake and Output 10/04/16 10/04/16 10/05/16 15:00 23:00 07:00 Intake Total 971.36 ml 1513.545 ml 1221.82 ml Output Total 2300 ml 2570 ml 865 ml Balance -1328.64 ml -1056.455 ml 356.82 ml Exam Eyes: EOMI, nl conjunctiva, nl lids, nl sclera ENMT: mucosa pink and moist, nl external ears & nose, nl lips & teeth, nl nasal mucosa & septum Neck: non-tender, supple Respiratory: clear to auscultation, normal air movement Cardiovascular: nl pulses, regular rate and rhythm Results Result Diagram: 10/05/16 0427 10/05/16 0427 YOUNG HAY MD Oct 05, 2016 18:17
[2016-10-05] MEDS: FENTAnyl 1,000 MCG in DEXTROSE 5% 80 ML IV SCH (18:36)
[2016-10-05] MEDS: AZITHROMYCIN 500MG/NS (PMX) 250 ML IVPB SCH (20:10)
--- NOTE | 2016-10-05 21:37 | CONS ---
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 Continue HILDA inhibitor for severe congestive heart failure with holding parameters. Consultation Date/Type/Reason Admit Date/Time Sep 15, 2016 at 16:54 Initial Consult Date 09/29/16 Type of Consultation: cv Referring Provider: JAN ZHANG 24 HR Interval Summary Free Text/Dictation Patient seen and examined, no new cardiac issues as per nursing staff Exam/Review of Systems Vital Signs Vitals Vital Signs Date Time Temp Pulse Resp B/P Pulse Ox O2 Delivery O2 Flow Rate FiO2 10/05/16 21:15 92 16 99 10/05/16 21:00 84/70 10/05/16 20:00 40 10/05/16 20:00 99.1 Mechanical Ventilator Intake and Output 10/04/16 10/04/16 10/05/16 15:00 23:00 07:00 Intake Total 971.36 ml 1513.545 ml 1221.82 ml Output Total 2300 ml 2570 ml 865 ml Balance -1328.64 ml -1056.455 ml 356.82 ml Exam Sedated and intubated, no apparent distress Head: normocephalic ENMT: intubated Respiratory: other (course breath sounds bilaterally, no wheezing) Cardiovascular: other (S1 and S2 heard), regular rate and rhythm Gastrointestinal: bowel sounds, non-tender, soft Extremities: edema Results Result Diagram: 10/05/16 0427 10/05/16 0427 Results 24 hrs Laboratory Tests Test 10/05/16 04:27 Activated Partial Thromboplast Time 35.7 H Anion Gap 13 Band Neutrophils % 11.0 H Basophils # 0.2 H Basophils % 3.0 H Blood Morphology Comment Blood Urea Nitrogen 14 Calcium Level 8.2 L Carbon Dioxide Level 34 H Chloride Level 101 Creatinine 0.71 Differential Comment MANUAL DIFF Eosinophils # 0.4 Eosinophils % 7.0 Glucose Level 93 Hematocrit 37.6 L Hemoglobin 12.3 L INR International Normalized Ratio 1.08 Lymphocytes # 1.7 Lymphocytes % 30.0 Magnesium Level 1.8 Mean Corpuscular Hemoglobin 29.0 Mean Corpuscular Hemoglobin Concent 32.8 Mean Corpuscular Volume 88.5 Mean Platelet Volume 9.8 Monocytes # 0.6 Monocytes % 10.0 Neutrophils # 2.2 Neutrophils % 39.0 Nucleated Red Blood Cells # Nucleated Red Blood Cells % Phosphorus Level 4.3 Platelet Count 336 # Potassium Level 3.7 Prothrombin Time 14.0 Prothrombin Time Ratio 1.1 Red Blood Count 4.25 L Red Cell Distribution Width 15.1 H Sodium Level 144 Thrombin Time 31.6 H White Blood Count 5.6 # Medications Medications Current Medications Lorazepam (Ativan) 0.5 mg Q6H PRN IV ANXIETY Last administered on 09/27/16 10: 59; Admin Dose 0.5 MG; Start 09/15/16 at 18:00 Ondansetron HCl (Zofran Inj) 4 mg Q6H PRN IV NAUSEA AND/OR VOMITING; Start at 18:00 Morphine Sulfate (morphine) 2 mg Q4H PRN IV PAIN LEVEL 7-10 Last administered on 09/22/16 01:30; Admin Dose 2 MG; Start 09/15/16 at 18:00 Haloperidol 5 mg 5 mg Q6H PRN IM AGITATION Last administered on 09/19/16at 10: 40; Admin Dose 5 MG; Start 09/18/16 at 11:30 Propofol (Diprivan) 100 ml @ 3.105 mls/ hr Q12H IV Last administered on 16:12; Admin Dose 9.315 MLS/HR; Start 09/19/16 at 13:30 Famotidine 20 mg 20 mg BID IV Last administered on 10/05/16 20:09; Admin Dose 20 MG; Start 09/19/16 at 21:00 Fentanyl 1000 mcg/ Dextrose 100 ml @ 2.5 mls/hr TITRATE IV Last administered on 10/05/16 18:36; Admin Dose 5 MLS/HR; Start 09/23/16 at 10:00 Dextrose/Sodium Chloride (D5-NS) 1,000 ml @ 50 mls/hr Q20H IV Last administered on 10/05/16 09:51; Admin Dose 50 MLS/HR; Start 09/23/16 at 16:30 Metoclopramide HCl 10 mg 10 mg Q12 IV Last administered on 10/05/16 20:10; Admin Dose 10 MG; Start 09/24/16 at 11:30 Midazolam HCl/ Dextrose (Versed/D5W) 50 ml @ 2 mls/hr TITRATE IV Last administered on 10/05/16 20:19; Admin Dose 3 MLS/HR; Start 09/25/16 at 12:00 Acetaminophen 650 mg 650 mg Q4H PRN NGT PAIN AND OR ELEVATED TEMP Last administered on 10/02/16 00:50; Admin Dose 650 MG; Start 09/28/16 at 13:30 Piperacillin Sod/ Tazobactam Sod (Zosyn 3.375gm/ 100 ml (Pmx)) 100 ml @ 200 mls /hr Q6 IVPB Last administered on 10/05/16 17:39; Admin Dose 200 MLS/HR; Start 09/29/16 at 17:00 Enoxaparin Sodium 100 mg 100 mg Q12 SC Last administered on 10/05/16 09:57; Admin Dose 100 MG; Start 10/01/16 at 21:00; Status Future Hold Norepinephrine (Levophed) 250 ml @ 1.875 mls/ hr TITRATE IV ; Start 09/30/16 at 19:00 Lisinopril (Zestril) 2.5 mg DAILY GTB Last administered on 10/03/16 08:43; Admin Dose 2.5 MG; Start 10/02/16 at 09:00 Oseltamivir Phosphate 75 mg 75 mg BID NGT Last administered on 10/05/16 20:10 ; Admin Dose 75 MG; Start 10/02/16 at 21:00 Azithromycin (Zithromax 500mg/ NS (Pmx)) 250 ml @ 250 mls/hr Q24H IVPB Last administered on 10/05/16 20:10; Admin Dose 250 MLS/HR; Start 10/02/16 at 20:00 ; Stop 10/06/16 at 19:59 Nikolay Luna DO Oct 05, 2016 21:37
[2016-10-05 23:27] LABS: SEVENTY TWO HOUR READING 0 mm (0-9)
[2016-10-06] VITALS (78 sets, daily range): BP systolic 80–127; BP diastolic 54–95; PULSE 63–120; RESP 14–24
[2016-10-06] MEDS: PIPER-TAZO 3.375 GM IV (PMX) 100 ML IVPB SCH ×5 (01:28→23:44)
[2016-10-06] MEDS: PROPOFOL 100 ML IV SCH ×2 (01:29→14:51)
[2016-10-06] MEDS: DEXTROSE 5%-0.9% NACL 1,000 ML IV SCH ×2 (04:19→23:44)
[2016-10-06 06:31] LABS: POTASSIUM 3.6 mmol/L (3.5-5.1)
[2016-10-06 06:34] LABS: CREATININE 0.78 mg/dl (0.61-1.24)
[2016-10-06 06:35] LABS: CALCIUM 8.3 mg/dl (8.4-10.2); MAGNESIUM 1.8 mg/dl (1.7-2.5); PHOSPHORUS 4.2 mg/dl (2.5-4.9)
[2016-10-06] MEDS: POTASSIUM CHLORIDE 20 MEQ in SOD CHLORIDE 0.9% 100 ML IVPB SCH ×3 (06:51→17:34)
[2016-10-06 07:17] LABS: BASOPHILS % 0.2 % (0.0-2.0); EOSINOPHILS # 0.4 10^3/ul (0.0-0.5); EOSINOPHILS % 7.8 % (0.0-7.0); HEMATOCRIT 37.8 % (42.0-52.0); HEMOGLOBIN 12.4 g/dl (14.0-18.0); LYMPHOCYTES # 1.7 10^3/ul (0.8-2.9); LYMPHOCYTES % 30.4 % (15.0-51.0); MEAN CORPUSCULAR HEMOGLOBIN 29.2 pg (29.0-33.0); MEAN CORPUSCULAR HGB CONC 32.8 g/dl (32.0-37.0); MEAN CORPUSCULAR VOLUME 89.1 fl (82.0-101.0); MONOCYTE # 0.6 10^3/ul (0.3-0.9); MONOCYTES % 11.6 % (0.0-11.0); NEUTROPHIL # 2.7 10^3/ul (1.6-7.5); PLATELET COUNT 395 10^3/UL (140-440); RED BLOOD COUNT 4.25 10^6/ul (4.70-6.10); RED CELL DISTRIBUTION WIDTH 15.1 % (11.5-14.5); UNCORRECTED WBC 5.4 10^3/ul (4.8-10.8); WHITE BLOOD COUNT 5.4 10^3/ul (4.8-10.8)
[2016-10-06 07:28] LABS: CONDITION 1; LH ANALYZER COMMENTS 1
[2016-10-06] MEDS: FUROSEMIDE 40 MG INJ IV SCH ×3 (08:00→17:33)
[2016-10-06] MEDS: LISINOPRIL 5 MG TAB GTB SCH (08:10)
[2016-10-06] MEDS: OSELTAMIVIR 75 MG CAP NGT SCH ×2 (08:10→21:16)
[2016-10-06] MEDS: METOCLOPRAMIDE 10 MG INJ IV SCH ×2 (08:37→21:17)
[2016-10-06] MEDS: FAMOTIDINE 20 MG INJ IV SCH ×2 (08:37→21:17)
--- NOTE | 2016-10-06 08:37 | RADRPT ---
PROCEDURE: XR Chest. CLINICAL INDICATION: Pneumonia/CHF TECHNIQUE: Single portable view of the chest was obtained COMPARISON: Chest 10/05/2016 FINDINGS: Allowing for technique no change. Again noted is an endotracheal tube is suggested to a central latricia ous catheter unchanged. No evidence pneumothorax. The heart is mildly enlarged. Bilateral perihil ar and lower lobe consolidations change. Bilateral small pleural effusions. The bony vessels appea r prominent. Rule out congestive heart failure versus pneumonia. IMPRESSION: 1. No significant change. 2. Findings suggest congestive heart involving the mouth out inflammatory infiltrates should be con sidered. RPTAT:AAJJ Physician Caprice Date Time Electronically viewed and signed by Italo Benavides Physician on 10/06/2016 08:36 /
[2016-10-06] MEDS ORDERED: NICOTINE (21 MG/24 HR) PATCH TRANSDERM SCH (10:30)
--- NOTE | 2016-10-06 10:59 | CONS ---
Date/Time of Note Date/Time of Note DATE: 10/06/16 TIME: 10:58 Consult Date/Type/Reason Admit Date/Time Sep 15, 2016 at 16:54 Type of Consultation: Pulm Ordering Provider: JAN ZHANG Subjective Intubated, sedated, comfortable. Objective Vital Signs Date Time Temp Pulse Resp B/P Pulse Ox O2 Delivery O2 Flow Rate FiO2 10/06/16 10:00 68 16 91/66 97 Mechanical Ventilator 10/06/16 08:00 40 10/06/16 08:00 98.8 Intake and Output 10/05/16 10/05/16 10/06/16 15:00 23:00 07:00 Intake Total 1360.25 ml 953.17 ml 1012.21 ml Output Total 1495 ml 1720 ml 400 ml Balance -134.75 ml -766.83 ml 612.21 ml PHYSICAL EXAMINATION GENERAL: Chronically ill gentleman intubated on mechanical ventilation VITAL SIGNS: see below. HEENT: Pupils equal, round, and reactive to light. CARDIAC: S1, S2, CHEST: Diminished air entry bilaterally. ABDOMEN: Mildly distended. Bowel sounds present abdomen mildly distended no guarding or rebound. EXTREMITIES: No cyanosis, clubbing edema +1 NEUROLOGIC: Unable to assess. Results/Medications Result Diagram: 10/06/16 0500 10/06/16 0500 Results 24 hrs Laboratory Tests Test 10/06/16 05:00 Anion Gap 12 Basophils # 0.0 Basophils % 0.2 Blood Morphology Comment Blood Urea Nitrogen 14 Calcium Level 8.3 L Carbon Dioxide Level 33 H Chloride Level 102 Creatinine 0.78 Eosinophils # 0.4 Eosinophils % 7.8 H Glucose Level 87 Hematocrit 37.8 L Hemoglobin 12.4 L Lymphocytes # 1.7 Lymphocytes % 30.4 Magnesium Level 1.8 Mean Corpuscular Hemoglobin 29.2 Mean Corpuscular Hemoglobin Concent 32.8 Mean Corpuscular Volume 89.1 Mean Platelet Volume 10.0 Monocytes # 0.6 Monocytes % 11.6 H Neutrophils # 2.7 Neutrophils % 50.0 Nucleated Red Blood Cells # 0.0 Nucleated Red Blood Cells % 0.0 Phosphorus Level 4.2 Platelet Count 395 Potassium Level 3.6 Red Blood Count 4.25 L Red Cell Distribution Width 15.1 H Sodium Level 143 White Blood Count 5.4 Medications Current Medications Lorazepam (Ativan) 0.5 mg Q6H PRN IV ANXIETY Last administered on 09/27/16 10: 59; Admin Dose 0.5 MG; Start 09/15/16 at 18:00 Ondansetron HCl (Zofran Inj) 4 mg Q6H PRN IV NAUSEA AND/OR VOMITING; Start at 18:00 Morphine Sulfate (morphine) 2 mg Q4H PRN IV PAIN LEVEL 7-10 Last administered on 09/22/16 01:30; Admin Dose 2 MG; Start 09/15/16 at 18:00 Haloperidol 5 mg 5 mg Q6H PRN IM AGITATION Last administered on 09/19/16at 10: 40; Admin Dose 5 MG; Start 09/18/16 at 11:30 Propofol (Diprivan) 100 ml @ 3.105 mls/ hr Q12H IV Last administered on 01:29; Admin Dose 10.557 MLS/HR; Start 09/19/16 at 13:30 Famotidine 20 mg 20 mg BID IV Last administered on 10/06/16 08:37; Admin Dose 20 MG; Start 09/19/16 at 21:00 Fentanyl 1000 mcg/ Dextrose 100 ml @ 2.5 mls/hr TITRATE IV Last administered on 10/05/16 18:36; Admin Dose 5 MLS/HR; Start 09/23/16 at 10:00 Dextrose/Sodium Chloride (D5-NS) 1,000 ml @ 50 mls/hr Q20H IV Last administered on 10/05/16 09:51; Admin Dose 50 MLS/HR; Start 09/23/16 at 16:30 Metoclopramide HCl 10 mg 10 mg Q12 IV Last administered on 10/06/16 08:37; Admin Dose 10 MG; Start 09/24/16 at 11:30 Midazolam HCl/ Dextrose (Versed/D5W) 50 ml @ 2 mls/hr TITRATE IV Last administered on 10/05/16 20:19; Admin Dose 3 MLS/HR; Start 09/25/16 at 12:00 Acetaminophen 650 mg 650 mg Q4H PRN NGT PAIN AND OR ELEVATED TEMP Last administered on 10/02/16 00:50; Admin Dose 650 MG; Start 09/28/16 at 13:30 Piperacillin Sod/ Tazobactam Sod (Zosyn 3.375gm/ 100 ml (Pmx)) 100 ml @ 200 mls /hr Q6 IVPB Last administered on 10/06/16 05:28; Admin Dose 200 MLS/HR; Start 09/29/16 at 17:00 Enoxaparin Sodium 100 mg 100 mg Q12 SC Last administered on 10/05/16 09:57; Admin Dose 100 MG; Start 10/01/16 at 21:00; Status Future Hold Norepinephrine (Levophed) 250 ml @ 1.875 mls/ hr TITRATE IV ; Start 09/30/16 at 19:00 Lisinopril (Zestril) 2.5 mg DAILY GTB Last administered on 10/03/16 08:43; Admin Dose 2.5 MG; Start 10/02/16 at 09:00 Oseltamivir Phosphate 75 mg 75 mg BID NGT Last administered on 10/05/16 20:10 ; Admin Dose 75 MG; Start 10/02/16 at 21:00 Azithromycin (Zithromax 500mg/ NS (Pmx)) 250 ml @ 250 mls/hr Q24H IVPB Last administered on 10/05/16 20:10; Admin Dose 250 MLS/HR; Start 10/02/16 at 20:00 ; Stop 10/06/16 at 19:59 Assessment/Plan Chief Complaint/Hosp Course IMPRESSION: 1. Hypoxemic respiratory failure/vent dependence 2. Right sided pneumonia with complicated parapneumonic effusion s/p thoracentesis, repeat thoracentesis however x-ray shows reaccumulation. 3. Acute pulmonary emboli 4. Encephalopathy, likely toxic metabolic. 5. Transaminitis 6. FEN- Increased Na+ PLAN: 1. Recurrent right pleural effusion. Repeat pleural fluid studies. We will order chest drain placement. CPAP trial once pulmonary status improves. May require Precedex for agitation. Pending chest drain placement. 2. check cocci serologies/TB quant gold, respiratory isolation, ID recommendations, consider dc respiratory isolation. 3. continue lovenox 4. Continue Free H20 5 IV fluids per primary team Overall prognosis is guarded Problems: AMANDA STONE MD, [facility] Oct 06, 2016 10:59
--- NOTE | 2016-10-06 11:28 | PN ---
Date/Time of Note Date/Time of Note DATE: 10/06/16 TIME: 11:20 Assessment/Plan VTE Prophylaxis VTE Prophylaxis Intervention: LMWH, SCD's Lines/Catheters IV Catheter Type (from Nrs): Central Line Central line still needed: Yes Urinary Cath still in place: Yes Reason Cath still needed: other (indicate) (critical care) Assessment/Plan Assessment/Plan 1. Acute respiratory failure. Dr. Aquino is following the patient from pulmonology consultation. Continue bronchodilators and vent weaning per pulmonology. 2. Right-sided pneumonia with complicated parapneumonic effusion, status post thoracentesis. Pending chest tube placement. antibiotics per Dr. Osullivan group following, Infectious Disease standpoint. 3. Acute pulmonary emboli. Lovenox, However held for possible Chest tube. Resume once okayed. 4. 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 Overall negative I/Os, Appreciate cardiology recommendations. CXR reviewed 5. Encephalopathy, likely toxic metabolic. Continue to monitor. Currently on sedation. 6. Intermediate QuantiFERON gold test, AFB Negative, Only droplet precaution 7. Continue Pepcid for peptic ulcer disease prophylaxis. Critical care time >25min Subjective 24 Hr Interval Summary Free Text/Dictation No overnight events, Remains of Ventilator, Sedated. Subjective hx not possible: pt critical status Exam/Review of Systems Vital Signs Vitals Vital Signs Date Time Temp Pulse Resp B/P Pulse Ox O2 Delivery O2 Flow Rate FiO2 10/06/16 11:00 66 18 96/69 95 Mechanical Ventilator 10/06/16 08:00 40 10/06/16 08:00 98.8 Intake and Output 10/05/16 10/05/16 10/06/16 15:00 23:00 07:00 Intake Total 1360.25 ml 953.17 ml 1012.21 ml Output Total 1495 ml 1720 ml 400 ml Balance -134.75 ml -766.83 ml 612.21 ml Exam ENMT: intubated, mucosa pink and moist Neck: No jvd Respiratory: crackles/rales, No labored breathing Cardiovascular: regular rate and rhythm, No edema Gastrointestinal: non-tender, soft, No rebound or guarding Genitourinary - Male: other (Tang) Extremities: No edema Neurological: other (sedated) Skin: No diaphoresis Results Result Diagram: 10/06/16 0500 10/06/16 0500 Results 24 hrs Laboratory Tests Test 10/06/16 05:00 Anion Gap 12 Basophils # 0.0 Basophils % 0.2 Blood Morphology Comment Blood Urea Nitrogen 14 Calcium Level 8.3 L Carbon Dioxide Level 33 H Chloride Level 102 Creatinine 0.78 Eosinophils # 0.4 Eosinophils % 7.8 H Glucose Level 87 Hematocrit 37.8 L Hemoglobin 12.4 L Lymphocytes # 1.7 Lymphocytes % 30.4 Magnesium Level 1.8 Mean Corpuscular Hemoglobin 29.2 Mean Corpuscular Hemoglobin Concent 32.8 Mean Corpuscular Volume 89.1 Mean Platelet Volume 10.0 Monocytes # 0.6 Monocytes % 11.6 H Neutrophils # 2.7 Neutrophils % 50.0 Nucleated Red Blood Cells # 0.0 Nucleated Red Blood Cells % 0.0 Phosphorus Level 4.2 Platelet Count 395 Potassium Level 3.6 Red Blood Count 4.25 L Red Cell Distribution Width 15.1 H Sodium Level 143 White Blood Count 5.4 Medications Medications Current Medications Lorazepam (Ativan) 0.5 mg Q6H PRN IV ANXIETY Last administered on 09/27/16 10: 59; Admin Dose 0.5 MG; Start 09/15/16 at 18:00 Ondansetron HCl (Zofran Inj) 4 mg Q6H PRN IV NAUSEA AND/OR VOMITING; Start at 18:00 Morphine Sulfate (morphine) 2 mg Q4H PRN IV PAIN LEVEL 7-10 Last administered on 09/22/16 01:30; Admin Dose 2 MG; Start 09/15/16 at 18:00 Haloperidol 5 mg 5 mg Q6H PRN IM AGITATION Last administered on 09/19/16at 10: 40; Admin Dose 5 MG; Start 09/18/16 at 11:30 Propofol (Diprivan) 100 ml @ 3.105 mls/ hr Q12H IV Last administered on 01:29; Admin Dose 10.557 MLS/HR; Start 09/19/16 at 13:30 Famotidine 20 mg 20 mg BID IV Last administered on 10/06/16 08:37; Admin Dose 20 MG; Start 09/19/16 at 21:00 Fentanyl 1000 mcg/ Dextrose 100 ml @ 2.5 mls/hr TITRATE IV Last administered on 10/05/16 18:36; Admin Dose 5 MLS/HR; Start 09/23/16 at 10:00 Dextrose/Sodium Chloride (D5-NS) 1,000 ml @ 50 mls/hr Q20H IV Last administered on 10/05/16 09:51; Admin Dose 50 MLS/HR; Start 09/23/16 at 16:30 Metoclopramide HCl 10 mg 10 mg Q12 IV Last administered on 10/06/16 08:37; Admin Dose 10 MG; Start 09/24/16 at 11:30 Midazolam HCl/ Dextrose (Versed/D5W) 50 ml @ 2 mls/hr TITRATE IV Last administered on 10/05/16 20:19; Admin Dose 3 MLS/HR; Start 09/25/16 at 12:00 Acetaminophen 650 mg 650 mg Q4H PRN NGT PAIN AND OR ELEVATED TEMP Last administered on 10/02/16 00:50; Admin Dose 650 MG; Start 09/28/16 at 13:30 Piperacillin Sod/ Tazobactam Sod (Zosyn 3.375gm/ 100 ml (Pmx)) 100 ml @ 200 mls /hr Q6 IVPB Last administered on 10/06/16 05:28; Admin Dose 200 MLS/HR; Start 09/29/16 at 17:00 Enoxaparin Sodium 100 mg 100 mg Q12 SC Last administered on 10/05/16 09:57; Admin Dose 100 MG; Start 10/01/16 at 21:00; Status Future Hold Norepinephrine (Levophed) 250 ml @ 1.875 mls/ hr TITRATE IV ; Start 09/30/16 at 19:00 Lisinopril (Zestril) 2.5 mg DAILY GTB Last administered on 10/03/16 08:43; Admin Dose 2.5 MG; Start 10/02/16 at 09:00 Oseltamivir Phosphate 75 mg 75 mg BID NGT Last administered on 10/05/16 20:10 ; Admin Dose 75 MG; Start 10/02/16 at 21:00 Azithromycin (Zithromax 500mg/ NS (Pmx)) 250 ml @ 250 mls/hr Q24H IVPB Last administered on 10/05/16 20:10; Admin Dose 250 MLS/HR; Start 10/02/16 at 20:00 ; Stop 10/06/16 at 19:59 Procedures Procedures PROCEDURE: XR Chest. CLINICAL INDICATION: Pneumonia/CHF TECHNIQUE: Single portable view of the chest was obtained COMPARISON: Chest 10/05/2016 FINDINGS: Allowing for technique no change. Again noted is an endotracheal tube is suggested to a central venous catheter unchanged. No evidence pneumothorax. The heart is mildly enlarged. Bilateral perihilar and lower lobe consolidations change. Bilateral small pleural effusions. The bony vessels appear prominent. Rule out congestive heart failure versus pneumonia. IMPRESSION: 1. No significant change. 2. Findings suggest congestive heart involving the mouth out inflammatory infiltrates should be considered. RPTAT:AAJJ Physician Caprice Date Time Electronically viewed and signed by Italo Benavides Physician on 10/06/2016 08:36 NANCY GUTIÉRREZ MD Oct 06, 2016 11:28
--- NOTE | 2016-10-06 11:48 | PN ---
Date/Time of Note Date/Time of Note DATE: 10/06/16 TIME: 11:47 Assessment/Plan VTE Prophylaxis VTE Prophylaxis Intervention: other Lines/Catheters IV [facility]from [facility]): Central line still needed: No Urinary Cath still in place: No Assessment/Plan Chief Complaint/Hosp Course IMPRESSION 1. Pulmonary embolism. 2. Pneumonia. 3 Pleural effusion RECOMMENDATIONS: We will monitor the pleural effusion. Recurrent right pleural effusion. Repeat pleural fluid studies. May require VATS pleurodesis versus pigtail catheter drainage. Anticoagulation . . Discussed with the nursing staff. Problems: Subjective 24 Hr Interval Summary Gastrointestinal: no complaints Genitourinary: no complaints Musculoskeletal: no complaints Skin: no complaints Exam/Review of Systems Vital Signs Vitals Vital Signs Date Time Temp Pulse Resp B/P Pulse Ox O2 Delivery O2 Flow Rate FiO2 10/06/16 11:00 66 18 96/69 95 Mechanical Ventilator 10/06/16 08:00 40 10/06/16 08:00 98.8 Intake and Output 10/05/16 10/05/16 10/06/16 15:00 23:00 07:00 Intake Total 1360.25 ml 953.17 ml 1012.21 ml Output Total 1495 ml 1720 ml 400 ml Balance -134.75 ml -766.83 ml 612.21 ml Exam Respiratory: clear to auscultation, normal air movement Cardiovascular: nl pulses, regular rate and rhythm Gastrointestinal: nl liver, spleen, non-tender, soft Results Result Diagram: 10/06/16 0500 10/06/16 0500 Results 24 hrs Laboratory Tests Test 10/06/16 05:00 Anion Gap 12 Basophils # 0.0 Basophils % 0.2 Blood Morphology Comment Blood Urea Nitrogen 14 Calcium Level 8.3 L Carbon Dioxide Level 33 H Chloride Level 102 Creatinine 0.78 Eosinophils # 0.4 Eosinophils % 7.8 H Glucose Level 87 Hematocrit 37.8 L Hemoglobin 12.4 L Lymphocytes # 1.7 Lymphocytes % 30.4 Magnesium Level 1.8 Mean Corpuscular Hemoglobin 29.2 Mean Corpuscular Hemoglobin Concent 32.8 Mean Corpuscular Volume 89.1 Mean Platelet Volume 10.0 Monocytes # 0.6 Monocytes % 11.6 H Neutrophils # 2.7 Neutrophils % 50.0 Nucleated Red Blood Cells # 0.0 Nucleated Red Blood Cells % 0.0 Phosphorus Level 4.2 Platelet Count 395 Potassium Level 3.6 Red Blood Count 4.25 L Red Cell Distribution Width 15.1 H Sodium Level 143 White Blood Count 5.4 Medications Medications Current Medications Lorazepam (Ativan) 0.5 mg Q6H PRN IV ANXIETY Last administered on 09/27/16 10: 59; Admin Dose 0.5 MG; Start 09/15/16 at 18:00 Ondansetron HCl (Zofran Inj) 4 mg Q6H PRN IV NAUSEA AND/OR VOMITING; Start at 18:00 Morphine Sulfate (morphine) 2 mg Q4H PRN IV PAIN LEVEL 7-10 Last administered on 09/22/16 01:30; Admin Dose 2 MG; Start 09/15/16 at 18:00 Haloperidol 5 mg 5 mg Q6H PRN IM AGITATION Last administered on 09/19/16at 10: 40; Admin Dose 5 MG; Start 09/18/16 at 11:30 Propofol (Diprivan) 100 ml @ 3.105 mls/ hr Q12H IV Last administered on 01:29; Admin Dose 10.557 MLS/HR; Start 09/19/16 at 13:30 Famotidine 20 mg 20 mg BID IV Last administered on 10/06/16 08:37; Admin Dose 20 MG; Start 09/19/16 at 21:00 Fentanyl 1000 mcg/ Dextrose 100 ml @ 2.5 mls/hr TITRATE IV Last administered on 10/05/16 18:36; Admin Dose 5 MLS/HR; Start 09/23/16 at 10:00 Dextrose/Sodium Chloride (D5-NS) 1,000 ml @ 50 mls/hr Q20H IV Last administered on 10/05/16 09:51; Admin Dose 50 MLS/HR; Start 09/23/16 at 16:30 Metoclopramide HCl 10 mg 10 mg Q12 IV Last administered on 10/06/16 08:37; Admin Dose 10 MG; Start 09/24/16 at 11:30 Midazolam HCl/ Dextrose (Versed/D5W) 50 ml @ 2 mls/hr TITRATE IV Last administered on 10/05/16 20:19; Admin Dose 3 MLS/HR; Start 09/25/16 at 12:00 Acetaminophen 650 mg 650 mg Q4H PRN NGT PAIN AND OR ELEVATED TEMP Last administered on 10/02/16 00:50; Admin Dose 650 MG; Start 09/28/16 at 13:30 Piperacillin Sod/ Tazobactam Sod (Zosyn 3.375gm/ 100 ml (Pmx)) 100 ml @ 200 mls /hr Q6 IVPB Last administered on 10/06/16 11:26; Admin Dose 200 MLS/HR; Start 09/29/16 at 17:00 Enoxaparin Sodium 100 mg 100 mg Q12 SC Last administered on 10/05/16 09:57; Admin Dose 100 MG; Start 10/01/16 at 21:00; Status Future Hold Norepinephrine (Levophed) 250 ml @ 1.875 mls/ hr TITRATE IV ; Start 09/30/16 at 19:00 Lisinopril (Zestril) 2.5 mg DAILY GTB Last administered on 10/03/16 08:43; Admin Dose 2.5 MG; Start 10/02/16 at 09:00 Oseltamivir Phosphate 75 mg 75 mg BID NGT Last administered on 10/05/16 20:10 ; Admin Dose 75 MG; Start 10/02/16 at 21:00 Azithromycin (Zithromax 500mg/ NS (Pmx)) 250 ml @ 250 mls/hr Q24H IVPB Last administered on 10/05/16 20:10; Admin Dose 250 MLS/HR; Start 10/02/16 at 20:00 ; Stop 10/06/16 at 19:59 YOUNG HAY MD Oct 06, 2016 11:48
[2016-10-06] MEDS: FENTAnyl 1,000 MCG in DEXTROSE 5% 80 ML IV SCH (12:37)
--- NOTE | 2016-10-06 12:48 | CONS ---
Date/Time of Note Date/Time of Note DATE: 10/06/16 TIME: 12:47 Assessment/Plan Assessment/Plan Additional Assessment/Plan Respiratory failure Pulmonary emboli Acute decompensated systolic congestive heart failure Severe biventricular cardiomyopathy with left ventricular ejection fraction 20% Pleural effusion status post thoracentesis -Continue diuretics as blood pressure and renal function permits, continue HILDA inhibitor as blood pressure renal function permits. Awaiting chest tube. Consultation Date/Type/Reason Admit Date/Time Sep 15, 2016 at 16:54 Initial Consult Date 09/29/16 Type of Consultation: cv Referring Provider: JAN ZHANG 24 HR Interval Summary Free Text/Dictation Patient seen and examined Exam/Review of Systems Vital Signs Vitals Vital Signs Date Time Temp Pulse Resp B/P Pulse Ox O2 Delivery O2 Flow Rate FiO2 10/06/16 12:00 63 10/06/16 11:00 18 96/69 95 Mechanical Ventilator 10/06/16 08:00 40 10/06/16 08:00 98.8 Intake and Output 10/05/16 10/05/16 10/06/16 15:00 23:00 07:00 Intake Total 1360.25 ml 953.17 ml 1012.21 ml Output Total 1495 ml 1720 ml 400 ml Balance -134.75 ml -766.83 ml 612.21 ml Exam Sedated and intubated Head: normocephalic ENMT: intubated Respiratory: other (course breath sounds bilaterally, decreased at the bases) Cardiovascular: other (S1-S2 heard), regular rate and rhythm Gastrointestinal: bowel sounds, non-tender, soft Extremities: edema Results Result Diagram: 10/06/16 0500 10/06/16 0500 Results 24 hrs Laboratory Tests Test 10/06/16 05:00 Anion Gap 12 Basophils # 0.0 Basophils % 0.2 Blood Morphology Comment Blood Urea Nitrogen 14 Calcium Level 8.3 L Carbon Dioxide Level 33 H Chloride Level 102 Creatinine 0.78 Eosinophils # 0.4 Eosinophils % 7.8 H Glucose Level 87 Hematocrit 37.8 L Hemoglobin 12.4 L Lymphocytes # 1.7 Lymphocytes % 30.4 Magnesium Level 1.8 Mean Corpuscular Hemoglobin 29.2 Mean Corpuscular Hemoglobin Concent 32.8 Mean Corpuscular Volume 89.1 Mean Platelet Volume 10.0 Monocytes # 0.6 Monocytes % 11.6 H Neutrophils # 2.7 Neutrophils % 50.0 Nucleated Red Blood Cells # 0.0 Nucleated Red Blood Cells % 0.0 Phosphorus Level 4.2 Platelet Count 395 Potassium Level 3.6 Red Blood Count 4.25 L Red Cell Distribution Width 15.1 H Sodium Level 143 White Blood Count 5.4 Medications Medications Current Medications Lorazepam (Ativan) 0.5 mg Q6H PRN IV ANXIETY Last administered on 09/27/16 10: 59; Admin Dose 0.5 MG; Start 09/15/16 at 18:00 Ondansetron HCl (Zofran Inj) 4 mg Q6H PRN IV NAUSEA AND/OR VOMITING; Start at 18:00 Morphine Sulfate (morphine) 2 mg Q4H PRN IV PAIN LEVEL 7-10 Last administered on 09/22/16 01:30; Admin Dose 2 MG; Start 09/15/16 at 18:00 Haloperidol 5 mg 5 mg Q6H PRN IM AGITATION Last administered on 09/19/16at 10: 40; Admin Dose 5 MG; Start 09/18/16 at 11:30 Propofol (Diprivan) 100 ml @ 3.105 mls/ hr Q12H IV Last administered on 01:29; Admin Dose 10.557 MLS/HR; Start 09/19/16 at 13:30 Famotidine 20 mg 20 mg BID IV Last administered on 10/06/16 08:37; Admin Dose 20 MG; Start 09/19/16 at 21:00 Fentanyl 1000 mcg/ Dextrose 100 ml @ 2.5 mls/hr TITRATE IV Last administered on 10/06/16 12:37; Admin Dose 5 MLS/HR; Start 09/23/16 at 10:00 Dextrose/Sodium Chloride (D5-NS) 1,000 ml @ 50 mls/hr Q20H IV Last administered on 10/05/16 09:51; Admin Dose 50 MLS/HR; Start 09/23/16 at 16:30 Metoclopramide HCl 10 mg 10 mg Q12 IV Last administered on 10/06/16 08:37; Admin Dose 10 MG; Start 09/24/16 at 11:30 Midazolam HCl/ Dextrose (Versed/D5W) 50 ml @ 2 mls/hr TITRATE IV Last administered on 10/05/16 20:19; Admin Dose 3 MLS/HR; Start 09/25/16 at 12:00 Acetaminophen 650 mg 650 mg Q4H PRN NGT PAIN AND OR ELEVATED TEMP Last administered on 10/02/16 00:50; Admin Dose 650 MG; Start 09/28/16 at 13:30 Piperacillin Sod/ Tazobactam Sod (Zosyn 3.375gm/ 100 ml (Pmx)) 100 ml @ 200 mls /hr Q6 IVPB Last administered on 10/06/16 11:26; Admin Dose 200 MLS/HR; Start 09/29/16 at 17:00 Enoxaparin Sodium 100 mg 100 mg Q12 SC Last administered on 10/05/16 09:57; Admin Dose 100 MG; Start 10/01/16 at 21:00; Status Future Hold Norepinephrine (Levophed) 250 ml @ 1.875 mls/ hr TITRATE IV ; Start 09/30/16 at 19:00 Lisinopril (Zestril) 2.5 mg DAILY GTB Last administered on 10/03/16 08:43; Admin Dose 2.5 MG; Start 10/02/16 at 09:00 Oseltamivir Phosphate 75 mg 75 mg BID NGT Last administered on 10/05/16 20:10 ; Admin Dose 75 MG; Start 10/02/16 at 21:00 Azithromycin (Zithromax 500mg/ NS (Pmx)) 250 ml @ 250 mls/hr Q24H IVPB Last administered on 10/05/16 20:10; Admin Dose 250 MLS/HR; Start 10/02/16 at 20:00 ; Stop 10/06/16 at 19:59 Nikolay Luna DO Oct 06, 2016 12:48
[2016-10-06] MEDS: MIDAZOLAM 50 MG in DEXTROSE 5% 40 ML IV SCH (14:14)
--- NOTE | 2016-10-06 17:55 | CONS ---
Date/Time of Note Date/Time of Note DATE: 10/06/16 TIME: 17:43 Assessment/Plan Assessment/Plan Chief Complaint/Hosp Course - Sepsis d/t PNA with parapneumonic effusion. - PNA with parapneumonic effusion. Could be started as CAP, other considerations include aspiration PNA - recurrent right pleural effusion. s/p diagnostic thoracentesis on 09/22/16. It showed glu=74 pro <2, AMD=1776. No malignancy on cytology. s/p repeat thoracentesis 10/01/16. 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 Acute hepatitis panel negative - mild leukopenia - resolved - s/p hyperkalemia and hypokalemia - s/p hyponatremia and hypernatremia - s/p lactic acidosis - s/p Vanco (09/19/16-10/04/16) Recommendations: - f/u cocci serology (pending), AFB smear (negative on 09/29, 09/30 & 10/01) - continue pip/tazo (09/29/2016-) to cover pneumonia with parapneumonic effusion - continue empiric Tamiflu to complete a 5 day course and azithromycin (10/02/16- ) - f/u rapid influenza screen (negative), PPD (negative), legionella antigen, mycoplasma pneumoniae, chlamydia pneumoniae serology, and respiratory viral panel (pending) - f/u records from [place] - continue droplet precautions for now until respiratory viral panel results are back; Cause of parapneumonic effusion is unclear and there is widespread influenza notable in the community. We recommend Infection Control to coordinate with Radiology as to appropriate timing of placement of chest tube. - management d/w ICU RNs, Rodrigo & Alison - Above d/w Dr. Osullivan - critical care time spent: 40 min Problems: Consultation Date/Type/Reason Admit Date/Time Sep 15, 2016 at 16:54 Initial Consult Date 09/29/16 Type of Consultation: Infectious Disease Referring Provider: JAN ZHANG 24 HR Interval Summary Free Text/Dictation Right chest tube was not placed by Dr. Gonsalez because he is awaiting for respiratory isolation to be dc'd; respiratory viral panel will not be available for another 24-48 hours per RN Rodrigo. Pt nods yes to pain, SOB, and nausea but no to chest pain. ROS limited d/t intubation and sedation. Exam/Review of Systems Vital Signs Vitals Vital Signs Date Time Temp Pulse Resp B/P Pulse Ox O2 Delivery O2 Flow Rate FiO2 10/06/16 17:20 79 16 95 40 10/06/16 17:00 113/82 Mechanical Ventilator 10/06/16 12:00 98.6 Intake and Output 10/05/16 10/05/16 10/06/16 15:00 23:00 07:00 Intake Total 1360.25 ml 953.17 ml 1012.21 ml Output Total 1495 ml 1720 ml 400 ml Balance -134.75 ml -766.83 ml 612.21 ml Exam Constitutional: other (orally intubated and mildly sedated on Fentanyl, Versed and propofol), well developed Head: atraumatic, normocephalic ENMT: intubated Neck: supple, No masses Respiratory: diminished breath sounds, other (left subclavian central line c/d/ i) Cardiovascular: edema, nl pulses, regular rate and rhythm Gastrointestinal: bowel sounds, other (NGT with TF intact), soft Genitourinary - Male: nl penis, nl scrotum, other (Tang cath intact with clear yellow urine) Musculoskeletal: swelling Extremities: edema, normal pulses, No clubbing, No cyanosis Neurological: other (mildly sedated). Able to follow simple commands. GUALLPA weakly. BUE in wrist restraints Skin: nl turgor, other (Multiple tattoos including 2 flags on the left bicep area and the name Missy on ISAIAH) Results Result Diagram: 10/06/16 0500 10/06/16 0500 Results 24 hrs Laboratory Tests Test 10/06/16 05:00 Anion Gap 12 Basophils # 0.0 Basophils % 0.2 Blood Morphology Comment Blood Urea Nitrogen 14 Calcium Level 8.3 L Carbon Dioxide Level 33 H Chloride Level 102 Creatinine 0.78 Eosinophils # 0.4 Eosinophils % 7.8 H Glucose Level 87 Hematocrit 37.8 L Hemoglobin 12.4 L Lymphocytes # 1.7 Lymphocytes % 30.4 Magnesium Level 1.8 Mean Corpuscular Hemoglobin 29.2 Mean Corpuscular Hemoglobin Concent 32.8 Mean Corpuscular Volume 89.1 Mean Platelet Volume 10.0 Monocytes # 0.6 Monocytes % 11.6 H Neutrophils # 2.7 Neutrophils % 50.0 Nucleated Red Blood Cells # 0.0 Nucleated Red Blood Cells % 0.0 Phosphorus Level 4.2 Platelet Count 395 Potassium Level 3.6 Red Blood Count 4.25 L Red Cell Distribution Width 15.1 H Sodium Level 143 White Blood Count 5.4 Medications Medications Current Medications Lorazepam (Ativan) 0.5 mg Q6H PRN IV ANXIETY Last administered on 09/27/16 10: 59; Admin Dose 0.5 MG; Start 09/15/16 at 18:00 Ondansetron HCl (Zofran Inj) 4 mg Q6H PRN IV NAUSEA AND/OR VOMITING; Start at 18:00 Morphine Sulfate (morphine) 2 mg Q4H PRN IV PAIN LEVEL 7-10 Last administered on 09/22/16 01:30; Admin Dose 2 MG; Start 09/15/16 at 18:00 Haloperidol 5 mg 5 mg Q6H PRN IM AGITATION Last administered on 09/19/16at 10: 40; Admin Dose 5 MG; Start 09/18/16 at 11:30 Propofol (Diprivan) 100 ml @ 3.105 mls/ hr Q12H IV Last administered on 14:51; Admin Dose 6.21 MLS/HR; Start 09/19/16 at 13:30 Famotidine 20 mg 20 mg BID IV Last administered on 10/06/16 08:37; Admin Dose 20 MG; Start 09/19/16 at 21:00 Fentanyl 1000 mcg/ Dextrose 100 ml @ 2.5 mls/hr TITRATE IV Last administered on 10/06/16 12:37; Admin Dose 5 MLS/HR; Start 09/23/16 at 10:00 Dextrose/Sodium Chloride (D5-NS) 1,000 ml @ 50 mls/hr Q20H IV Last administered on 10/05/16 09:51; Admin Dose 50 MLS/HR; Start 09/23/16 at 16:30 Metoclopramide HCl 10 mg 10 mg Q12 IV Last administered on 10/06/16 08:37; Admin Dose 10 MG; Start 09/24/16 at 11:30 Midazolam HCl/ Dextrose (Versed/D5W) 50 ml @ 2 mls/hr TITRATE IV Last administered on 10/06/16 14:14; Admin Dose 3 MLS/HR; Start 09/25/16 at 12:00 Acetaminophen 650 mg 650 mg Q4H PRN NGT PAIN AND OR ELEVATED TEMP Last administered on 10/02/16 00:50; Admin Dose 650 MG; Start 09/28/16 at 13:30 Piperacillin Sod/ Tazobactam Sod (Zosyn 3.375gm/ 100 ml (Pmx)) 100 ml @ 200 mls /hr Q6 IVPB Last administered on 10/06/16 17:32; Admin Dose 200 MLS/HR; Start 09/29/16 at 17:00 Enoxaparin Sodium 100 mg 100 mg Q12 SC Last administered on 10/05/16 09:57; Admin Dose 100 MG; Start 10/01/16 at 21:00; Status Future Hold Norepinephrine (Levophed) 250 ml @ 1.875 mls/ hr TITRATE IV ; Start 09/30/16 at 19:00 Lisinopril (Zestril) 2.5 mg DAILY GTB Last administered on 10/03/16 08:43; Admin Dose 2.5 MG; Start 10/02/16 at 09:00 Oseltamivir Phosphate 75 mg 75 mg BID NGT Last administered on 10/05/16 20:10 ; Admin Dose 75 MG; Start 10/02/16 at 21:00 Azithromycin (Zithromax 500mg/ NS (Pmx)) 250 ml @ 250 mls/hr Q24H IVPB Last administered on 10/05/16 20:10; Admin Dose 250 MLS/HR; Start 10/02/16 at 20:00 ; Stop 10/06/16 at 19:59 Procedures Procedures CXR 10/06/16: 1. No significant change. 2. Findings suggest congestive heart involving the mouth out inflammatory infiltrates should be considered. TTE 16: 1. Normal left ventricular wall thickness. Moderate enlargement of left ventricle cavity. Severe left ventricular systolic dysfunction. Ejection fraction is visually estimated at 20 %. Abnormal Diastolic Function. 2. Mild enlargement of right ventricle. Moderate right ventricular hypokinesis. 3. There is moderate enlargement of left atrium. 4. There is mild enlargement of right atrium. 5. Mild to moderate mitral valve regurgitation. 6. No hemodynamically significant aortic stenosis by doppler. Trace aortic valve regurgitation. 7. Estimated peak PA systolic pressure 35 mmHg. There is mild to moderate tricuspid regurgitation. 8. Normal pericardium with no significant pericardial effusion. Right pleural effusion seen. LAURA OJEDA NP Oct 06, 2016 17:55
[2016-10-07] VITALS (77 sets, daily range): BP systolic 81–112; BP diastolic 43–81; PULSE 67–119; RESP 14–19
[2016-10-07] MEDS: PROPOFOL 100 ML IV SCH ×2 (01:05→20:07)
[2016-10-07 05:45] LABS: POTASSIUM 3.5 mmol/L (3.5-5.1)
[2016-10-07 05:47] LABS: CREATININE 0.83 mg/dl (0.61-1.24)
[2016-10-07 05:48] LABS: CALCIUM 8.7 mg/dl (8.4-10.2); MAGNESIUM 1.8 mg/dl (1.7-2.5); PHOSPHORUS 3.8 mg/dl (2.5-4.9)
[2016-10-07] MEDS: PIPER-TAZO 3.375 GM IV (PMX) 100 ML IVPB SCH ×3 (05:54→18:30)
[2016-10-07] MEDS: MIDAZOLAM 50 MG in DEXTROSE 5% 40 ML IV SCH ×2 (05:58→16:43)
[2016-10-07] MEDS: POTASSIUM CHLORIDE 20 MEQ in SOD CHLORIDE 0.9% 100 ML IVPB SCH (06:17)
[2016-10-07] MEDS: FENTAnyl 1,000 MCG in DEXTROSE 5% 80 ML IV SCH (06:19)
[2016-10-07] MEDS: LISINOPRIL 5 MG TAB GTB SCH (08:59)
--- NOTE | 2016-10-07 09:21 | RADRPT ---
PROCEDURE: XR, Chest. CLINICAL INDICATION: Follow up for respiratory distress. TECHNIQUE: AP chest. COMPARISON: Chest, 10/06/2016. FINDINGS: The heart remains enlarged with mild pulmonary venous congestion. There is large right pleural effu ryan, unchanged. There is mild left pleural effusion, unchanged. There is discoid atelectasis in t he left mid lung. The ET tube, NG tube and left central venous line remain in good position. IMPRESSION: 1. Large right pleural effusion, unchanged. Mild left pleural effusion, unchanged. 2. Discoid atelectasis in the left mid lung. 3. Mild cardiomegaly with mild pulmonary venous congestion, unchanged. RPTAT: GG .Be Mcgowan MD, MD Date Time Electronically viewed and signed by .Be Mcgowan MD, on 10/07/2016 09:20 .Y/
[2016-10-07] MEDS: OSELTAMIVIR 75 MG CAP NGT SCH ×2 (09:25→20:06)
[2016-10-07] MEDS: METOCLOPRAMIDE 10 MG INJ IV SCH ×2 (09:25→20:07)
[2016-10-07] MEDS: FAMOTIDINE 20 MG INJ IV SCH ×2 (09:25→20:07)
[2016-10-07 09:40] LABS: BASOPHIL # 0.1 10^3/ul (0.0-0.1); BASOPHILS % 0.9 % (0.0-2.0); EOSINOPHILS # 0.6 10^3/ul (0.0-0.5); EOSINOPHILS % 8.1 % (0.0-7.0); HEMATOCRIT 38.8 % (42.0-52.0); HEMOGLOBIN 12.5 g/dl (14.0-18.0); LYMPHOCYTES # 1.4 10^3/ul (0.8-2.9); LYMPHOCYTES % 18.9 % (15.0-51.0); MEAN CORPUSCULAR HEMOGLOBIN 28.7 pg (29.0-33.0); MEAN CORPUSCULAR HGB CONC 32.2 g/dl (32.0-37.0); MEAN CORPUSCULAR VOLUME 89.1 fl (82.0-101.0); MEAN PLATELET VOLUME 10.3 fl (7.4-10.4); MONOCYTES % 13.3 % (0.0-11.0); NEUTROPHIL # 4.3 10^3/ul (1.6-7.5); NEUTROPHILS % 58.8 % (39.0-77.0); PLATELET COUNT 393 10^3/UL (140-440); RED BLOOD COUNT 4.36 10^6/ul (4.70-6.10); RED CELL DISTRIBUTION WIDTH 14.9 % (11.5-14.5); UNCORRECTED WBC 7.4 10^3/ul (4.8-10.8); WHITE BLOOD COUNT 7.4 10^3/ul (4.8-10.8)
[2016-10-07 09:51] LABS: CONDITION 1; LH ANALYZER COMMENTS 1
--- NOTE | 2016-10-07 09:53 | CONS ---
Date/Time of Note Date/Time of Note DATE: 10/07/16 TIME: 09:52 Assessment/Plan Assessment/Plan Chief Complaint/Hosp Course - Sepsis d/t PNA with parapneumonic effusion. - PNA with parapneumonic effusion. Could be started as CAP, other considerations include aspiration PNA - recurrent right pleural effusion. s/p diagnostic thoracentesis on 09/22/16. It showed glu=74 pro <2, LIC=[id number]. No malignancy on cytology. s/p repeat thoracentesis 10/01/16. 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 Acute hepatitis panel negative - mild leukopenia - resolved - s/p hyperkalemia and hypokalemia - s/p hyponatremia and hypernatremia - s/p lactic acidosis - s/p Vanco (09/19/16-10/04/16) Recommendations: - f/u cocci serology (pending), AFB smear (negative on 09/29, 09/30 & 10/01) - continue pip/tazo (09/29/2016-) to cover pneumonia with parapneumonic effusion - continue empiric Tamiflu until resp viral panel returns negative -complete a 5 day course and azithromycin (10/02/16-) - f/u rapid influenza screen (negative), PPD (negative), legionella antigen, mycoplasma pneumoniae, chlamydia pneumoniae serology, and respiratory viral panel (pending) - f/u records from [place] - continue droplet precautions for now until respiratory viral panel results are back; Cause of parapneumonic effusion is unclear and there is widespread influenza notable in the community. We recommend Infection Control to coordinate with Radiology as to appropriate timing of placement of chest tube. Problems: Consultation Date/Type/Reason Admit Date/Time Sep 15, 2016 at 16:54 Initial Consult Date 09/29/16 Type of Consultation: Infectious Disease Referring Provider: JAN ZHANG 24 HR Interval Summary Free Text/Dictation d/w nursing. d/w infection control. still awaiting records from [place]. Exam/Review of Systems Vital Signs Vitals Vital Signs Date Time Temp Pulse Resp B/P Pulse Ox O2 Delivery O2 Flow Rate FiO2 10/07/16 08:32 73 16 100 40 10/07/16 07:30 98.8 83/55 Mechanical Ventilator Intake and Output 10/06/16 10/06/16 10/07/16 15:00 23:00 07:00 Intake Total 723.68 ml 842.63 ml 938 ml Output Total 290 ml 2455 ml 260 ml Balance 433.68 ml -1612.37 ml 678 ml Exam intubated and sedated Constitutional: non-verbal Psych: nl mood/affect, no complaints Head: atraumatic, normocephalic Eyes: EOMI, PERRL, nl conjunctiva, nl lids, nl sclera Respiratory: diminished breath sounds Cardiovascular: regular rate and rhythm Gastrointestinal: non-tender, soft Results Result Diagram: 10/06/16 0500 10/07/16 0400 Results 24 hrs Laboratory Tests Test 10/07/16 04:00 10/07/16 07:51 Anion Gap 13 Basophils # 0.1 Basophils % 0.9 Blood Morphology Comment Blood Urea Nitrogen 16 Calcium Level 8.7 Carbon Dioxide Level 32 H Chloride Level 103 Creatinine 0.83 Eosinophils # 0.6 H Eosinophils % 8.1 H Glucose Level 96 Hematocrit 38.8 L Hemoglobin 12.5 L Lymphocytes # 1.4 Lymphocytes % 18.9 Magnesium Level 1.8 Mean Corpuscular Hemoglobin 28.7 L Mean Corpuscular Hemoglobin Concent 32.2 Mean Corpuscular Volume 89.1 Mean Platelet Volume 10.3 Monocytes # 1.0 H Monocytes % 13.3 H Neutrophils # 4.3 Neutrophils % 58.8 Nucleated Red Blood Cells # 0.0 Nucleated Red Blood Cells % 0.0 Phosphorus Level 3.8 Platelet Count 393 Potassium Level 3.5 Red Blood Count 4.36 L Red Cell Distribution Width 14.9 H Sodium Level 144 White Blood Count 7.4 # Lab Scanned Report REFERENCE LAB Medications Medications Current Medications Lorazepam (Ativan) 0.5 mg Q6H PRN IV ANXIETY Last administered on 09/27/16 10: 59; Admin Dose 0.5 MG; Start 09/15/16 at 18:00 Ondansetron HCl (Zofran Inj) 4 mg Q6H PRN IV NAUSEA AND/OR VOMITING; Start at 18:00 Morphine Sulfate (morphine) 2 mg Q4H PRN IV PAIN LEVEL 7-10 Last administered on 09/22/16 01:30; Admin Dose 2 MG; Start 09/15/16 at 18:00 Haloperidol 5 mg 5 mg Q6H PRN IM AGITATION Last administered on 09/19/16at 10: 40; Admin Dose 5 MG; Start 09/18/16 at 11:30 Propofol (Diprivan) 100 ml @ 3.105 mls/ hr Q12H IV Last administered on 01:05; Admin Dose 12.42 MLS/HR; Start 09/19/16 at 13:30 Famotidine 20 mg 20 mg BID IV Last administered on 10/07/16 09:25; Admin Dose 20 MG; Start 09/19/16 at 21:00 Fentanyl 1000 mcg/ Dextrose 100 ml @ 2.5 mls/hr TITRATE IV Last administered on 10/07/16 06:19; Admin Dose 5 MLS/HR; Start 09/23/16 at 10:00 Dextrose/Sodium Chloride (D5-NS) 1,000 ml @ 50 mls/hr Q20H IV Last administered on 10/06/16 23:44; Admin Dose 50 MLS/HR; Start 09/23/16 at 16:30 Metoclopramide HCl 10 mg 10 mg Q12 IV Last administered on 10/07/16 09:25; Admin Dose 10 MG; Start 09/24/16 at 11:30 Midazolam HCl/ Dextrose (Versed/D5W) 50 ml @ 2 mls/hr TITRATE IV Last administered on 10/07/16 05:58; Admin Dose 5 MLS/HR; Start 09/25/16 at 12:00 Acetaminophen 650 mg 650 mg Q4H PRN NGT PAIN AND OR ELEVATED TEMP Last administered on 10/02/16 00:50; Admin Dose 650 MG; Start 09/28/16 at 13:30 Piperacillin Sod/ Tazobactam Sod (Zosyn 3.375gm/ 100 ml (Pmx)) 100 ml @ 200 mls /hr Q6 IVPB Last administered on 10/07/16 05:54; Admin Dose 200 MLS/HR; Start 09/29/16 at 17:00 Enoxaparin Sodium 100 mg 100 mg Q12 SC Last administered on 10/05/16 09:57; Admin Dose 100 MG; Start 10/01/16 at 21:00; Status Future Hold Norepinephrine (Levophed) 250 ml @ 1.875 mls/ hr TITRATE IV ; Start 09/30/16 at 19:00 Lisinopril (Zestril) 2.5 mg DAILY GTB Last administered on 10/03/16 08:43; Admin Dose 2.5 MG; Start 10/02/16 at 09:00 Oseltamivir Phosphate (Tamiflu) 75 mg BID NGT Last administered on 10/07/16 09 :25; Admin Dose 75 MG; Start 10/02/16 at 21:00 Furosemide (Lasix) 40 mg DAILY@06 IV ; Start 10/07/16 at 10:00 DYLLAN PULIDO MD Oct 07, 2016 09:53
[2016-10-07] MEDS: FUROSEMIDE 40 MG INJ IV SCH (10:16)
--- NOTE | 2016-10-07 10:25 | CONS ---
Date/Time of Note Date/Time of Note DATE: 10/07/16 TIME: 10:15 Consult Date/Type/Reason Admit Date/Time Sep 15, 2016 at 16:54 Type of Consultation: pulmonary Ordering Provider: JAN ZHANG Subjective Patient remains in respiratory isolation Remains hemodynamically stable Chest tube placement deferred until cleared from respiratory isolation Objective Vital Signs Date Time Temp Pulse Resp B/P Pulse Ox O2 Delivery O2 Flow Rate FiO2 10/07/16 08:32 73 16 100 40 10/07/16 07:30 98.8 83/55 Mechanical Ventilator Intake and Output 10/06/16 10/06/16 10/07/16 15:00 23:00 07:00 Intake Total 723.68 ml 842.63 ml 938 ml Output Total 290 ml 2455 ml 260 ml Balance 433.68 ml -1612.37 ml 678 ml PHYSICAL EXAMINATION GENERAL: Chronically ill gentleman intubated on mechanical ventilation VITAL SIGNS: see below. HEENT: Pupils equal, round, and reactive to light. CARDIAC: S1, S2, CHEST: Diminished air entry bilaterally. ABDOMEN: Mildly distended. Bowel sounds present abdomen mildly distended no guarding or rebound. EXTREMITIES: No cyanosis, clubbing edema +1 NEUROLOGIC: Unable to assess. Results/Medications Result Diagram: 10/07/16 0400 10/07/16 0400 Results 24 hrs Laboratory Tests Test 10/07/16 04:00 10/07/16 07:51 Anion Gap 13 Basophils # 0.1 Basophils % 0.9 Blood Morphology Comment Blood Urea Nitrogen 16 Calcium Level 8.7 Carbon Dioxide Level 32 H Chloride Level 103 Creatinine 0.83 Eosinophils # 0.6 H Eosinophils % 8.1 H Glucose Level 96 Hematocrit 38.8 L Hemoglobin 12.5 L Lymphocytes # 1.4 Lymphocytes % 18.9 Magnesium Level 1.8 Mean Corpuscular Hemoglobin 28.7 L Mean Corpuscular Hemoglobin Concent 32.2 Mean Corpuscular Volume 89.1 Mean Platelet Volume 10.3 Monocytes # 1.0 H Monocytes % 13.3 H Neutrophils # 4.3 Neutrophils % 58.8 Nucleated Red Blood Cells # 0.0 Nucleated Red Blood Cells % 0.0 Phosphorus Level 3.8 Platelet Count 393 Potassium Level 3.5 Red Blood Count 4.36 L Red Cell Distribution Width 14.9 H Sodium Level 144 White Blood Count 7.4 # Lab Scanned Report REFERENCE LAB Medications Current Medications Lorazepam (Ativan) 0.5 mg Q6H PRN IV ANXIETY Last administered on 09/27/16 10: 59; Admin Dose 0.5 MG; Start 09/15/16 at 18:00 Ondansetron HCl (Zofran Inj) 4 mg Q6H PRN IV NAUSEA AND/OR VOMITING; Start at 18:00 Morphine Sulfate (morphine) 2 mg Q4H PRN IV PAIN LEVEL 7-10 Last administered on 09/22/16 01:30; Admin Dose 2 MG; Start 09/15/16 at 18:00 Haloperidol 5 mg 5 mg Q6H PRN IM AGITATION Last administered on 09/19/16at 10: 40; Admin Dose 5 MG; Start 09/18/16 at 11:30 Propofol (Diprivan) 100 ml @ 3.105 mls/ hr Q12H IV Last administered on 01:05; Admin Dose 12.42 MLS/HR; Start 09/19/16 at 13:30 Famotidine 20 mg 20 mg BID IV Last administered on 10/07/16 09:25; Admin Dose 20 MG; Start 09/19/16 at 21:00 Fentanyl 1000 mcg/ Dextrose 100 ml @ 2.5 mls/hr TITRATE IV Last administered on 10/07/16 06:19; Admin Dose 5 MLS/HR; Start 09/23/16 at 10:00 Dextrose/Sodium Chloride (D5-NS) 1,000 ml @ 50 mls/hr Q20H IV Last administered on 10/06/16 23:44; Admin Dose 50 MLS/HR; Start 09/23/16 at 16:30 Metoclopramide HCl 10 mg 10 mg Q12 IV Last administered on 10/07/16 09:25; Admin Dose 10 MG; Start 09/24/16 at 11:30 Midazolam HCl/ Dextrose (Versed/D5W) 50 ml @ 2 mls/hr TITRATE IV Last administered on 10/07/16 05:58; Admin Dose 5 MLS/HR; Start 09/25/16 at 12:00 Acetaminophen 650 mg 650 mg Q4H PRN NGT PAIN AND OR ELEVATED TEMP Last administered on 10/02/16 00:50; Admin Dose 650 MG; Start 09/28/16 at 13:30 Piperacillin Sod/ Tazobactam Sod (Zosyn 3.375gm/ 100 ml (Pmx)) 100 ml @ 200 mls /hr Q6 IVPB Last administered on 10/07/16 05:54; Admin Dose 200 MLS/HR; Start 09/29/16 at 17:00 Enoxaparin Sodium 100 mg 100 mg Q12 SC Last administered on 10/05/16 09:57; Admin Dose 100 MG; Start 10/01/16 at 21:00; Status Future Hold Norepinephrine (Levophed) 250 ml @ 1.875 mls/ hr TITRATE IV ; Start 09/30/16 at 19:00 Lisinopril (Zestril) 2.5 mg DAILY GTB Last administered on 10/03/16 08:43; Admin Dose 2.5 MG; Start 10/02/16 at 09:00 Oseltamivir Phosphate (Tamiflu) 75 mg BID NGT Last administered on 10/07/16 09 :25; Admin Dose 75 MG; Start 10/02/16 at 21:00 Furosemide 40 mg 40 mg DAILY@06 IV ; Start 10/07/16 at 10:00 Potassium Chloride/Sodium Chloride (KCl/NS) 110 ml @ 55 mls/hr DAILY IVPB ; Start 10/08/16 at 10:00 Assessment/Plan Chief Complaint/Hosp Course IMPRESSION: 1. Hypoxemic respiratory failure/vent dependence 2. Right sided pneumonia with complicated parapneumonic effusion s/p thoracentesis, repeat thoracentesis however x-ray shows reaccumulation. 3. Acute pulmonary emboli 4. Encephalopathy, likely toxic metabolic. 5. Transaminitis 6. FEN- Increased Na+ 7. Rule out viral pneumonia PLAN: 1. Recurrent right pleural effusion. Repeat pleural fluid studies. We will order chest drain placement. CPAP trial once pulmonary status improves. May require Precedex for agitation. Pending chest drain placement. 2. cultures pending6, ID recommendations, consider dc respiratory isolation. 3. continue lovenox 4. Continue Free H20 5 IV fluids per primary team Overall prognosis is guarded Problems: AMANDA STONE MD, [facility] Oct 07, 2016 10:25
--- NOTE | 2016-10-07 13:48 | CONS ---
Date/Time of Note Date/Time of Note DATE: 10/07/16 TIME: 13:46 Assessment/Plan Assessment/Plan Additional Assessment/Plan Respiratory failure Pulmonary emboli Acute decompensated systolic congestive heart failure Severe biventricular cardiomyopathy with left ventricular ejection fraction 20% Pleural effusion status post thoracentesis -Patient awaiting chest tube placement, edema has improved, continue diuretics as blood pressure and renal function permits. Restart Lovenox after procedure. Consultation Date/Type/Reason Admit Date/Time Sep 15, 2016 at 16:54 Initial Consult Date 09/29/16 Type of Consultation: cv Referring Provider: JAN ZHANG 24 HR Interval Summary Free Text/Dictation Patient seen and examined, in discussion with nursing staff, no new cardiac issues. Exam/Review of Systems Vital Signs Vitals Vital Signs Date Time Temp Pulse Resp B/P Pulse Ox O2 Delivery O2 Flow Rate FiO2 10/07/16 12:46 80 16 98 30 10/07/16 12:00 98.5 93/59 Mechanical Ventilator Intake and Output 10/06/16 10/06/16 10/07/16 15:00 23:00 07:00 Intake Total 723.68 ml 842.63 ml 1004.2 ml Output Total 290 ml 2455 ml 260 ml Balance 433.68 ml -1612.37 ml 744.2 ml Exam Sedated and intubated, no apparent distress Head: normocephalic ENMT: intubated Respiratory: other (course breath sounds bilaterally, no wheezing) Cardiovascular: other (S1-S2 heard), regular rate and rhythm Gastrointestinal: bowel sounds, non-tender, soft Extremities: edema (trace) Results Result Diagram: 10/07/16 0400 10/07/16 0400 Results 24 hrs Laboratory Tests Test 10/07/16 04:00 10/07/16 07:51 Anion Gap 13 Basophils # 0.1 Basophils % 0.9 Blood Morphology Comment Blood Urea Nitrogen 16 Calcium Level 8.7 Carbon Dioxide Level 32 H Chloride Level 103 Creatinine 0.83 Eosinophils # 0.6 H Eosinophils % 8.1 H Glucose Level 96 Hematocrit 38.8 L Hemoglobin 12.5 L Lymphocytes # 1.4 Lymphocytes % 18.9 Magnesium Level 1.8 Mean Corpuscular Hemoglobin 28.7 L Mean Corpuscular Hemoglobin Concent 32.2 Mean Corpuscular Volume 89.1 Mean Platelet Volume 10.3 Monocytes # 1.0 H Monocytes % 13.3 H Neutrophils # 4.3 Neutrophils % 58.8 Nucleated Red Blood Cells # 0.0 Nucleated Red Blood Cells % 0.0 Phosphorus Level 3.8 Platelet Count 393 Potassium Level 3.5 Red Blood Count 4.36 L Red Cell Distribution Width 14.9 H Sodium Level 144 White Blood Count 7.4 # Lab Scanned Report REFERENCE LAB Medications Medications Current Medications Lorazepam (Ativan) 0.5 mg Q6H PRN IV ANXIETY Last administered on 09/27/16 10: 59; Admin Dose 0.5 MG; Start 09/15/16 at 18:00 Ondansetron HCl (Zofran Inj) 4 mg Q6H PRN IV NAUSEA AND/OR VOMITING; Start at 18:00 Morphine Sulfate (morphine) 2 mg Q4H PRN IV PAIN LEVEL 7-10 Last administered on 09/22/16 01:30; Admin Dose 2 MG; Start 09/15/16 at 18:00 Haloperidol 5 mg 5 mg Q6H PRN IM AGITATION Last administered on 09/19/16at 10: 40; Admin Dose 5 MG; Start 09/18/16 at 11:30 Propofol (Diprivan) 100 ml @ 3.105 mls/ hr Q12H IV Last administered on 01:05; Admin Dose 12.42 MLS/HR; Start 09/19/16 at 13:30 Famotidine 20 mg 20 mg BID IV Last administered on 10/07/16 09:25; Admin Dose 20 MG; Start 09/19/16 at 21:00 Fentanyl 1000 mcg/ Dextrose 100 ml @ 2.5 mls/hr TITRATE IV Last administered on 10/07/16 06:19; Admin Dose 5 MLS/HR; Start 09/23/16 at 10:00 Dextrose/Sodium Chloride (D5-NS) 1,000 ml @ 50 mls/hr Q20H IV Last administered on 10/06/16 23:44; Admin Dose 50 MLS/HR; Start 09/23/16 at 16:30 Metoclopramide HCl 10 mg 10 mg Q12 IV Last administered on 10/07/16 09:25; Admin Dose 10 MG; Start 09/24/16 at 11:30 Midazolam HCl/ Dextrose (Versed/D5W) 50 ml @ 2 mls/hr TITRATE IV Last administered on 10/07/16 05:58; Admin Dose 5 MLS/HR; Start 09/25/16 at 12:00 Acetaminophen 650 mg 650 mg Q4H PRN NGT PAIN AND OR ELEVATED TEMP Last administered on 10/02/16 00:50; Admin Dose 650 MG; Start 09/28/16 at 13:30 Piperacillin Sod/ Tazobactam Sod (Zosyn 3.375gm/ 100 ml (Pmx)) 100 ml @ 200 mls /hr Q6 IVPB Last administered on 10/07/16 11:53; Admin Dose 200 MLS/HR; Start 09/29/16 at 17:00 Enoxaparin Sodium 100 mg 100 mg Q12 SC Last administered on 10/05/16 09:57; Admin Dose 100 MG; Start 10/01/16 at 21:00; Status Future Hold Norepinephrine (Levophed) 250 ml @ 1.875 mls/ hr TITRATE IV ; Start 09/30/16 at 19:00 Lisinopril (Zestril) 2.5 mg DAILY GTB Last administered on 10/03/16 08:43; Admin Dose 2.5 MG; Start 10/02/16 at 09:00 Oseltamivir Phosphate (Tamiflu) 75 mg BID NGT Last administered on 10/07/16 09 :25; Admin Dose 75 MG; Start 10/02/16 at 21:00 Furosemide 40 mg 40 mg DAILY@06 IV Last administered on 10/07/16 10:16; Admin Dose 40 MG; Start 10/07/16 at 10:00 Potassium Chloride/Sodium Chloride (KCl/NS) 110 ml @ 55 mls/hr DAILY IVPB ; Start 10/08/16 at 10:00 Nikolay Luna DO Oct 07, 2016 13:48
--- NOTE | 2016-10-07 13:51 | PN ---
Date/Time of Note Date/Time of Note DATE: 10/07/16 TIME: 13:48 Assessment/Plan VTE Prophylaxis VTE Prophylaxis Intervention: LMWH (On Hold for chest drain), SCD's Lines/Catheters IV Catheter Type (from Nrsg): Central Line Central line still needed: Yes Urinary Cath still in place: Yes Reason Cath still needed: urinary retention Assessment/Plan Assessment/Plan 1. Acute respiratory failure. Dr. Aquino is following the patient from pulmonology consultation. Continue bronchodilators and vent weaning per pulmonology. 2. Right-sided pneumonia with complicated parapneumonic effusion, status post thoracentesis. Pending chest drain placement. antibiotics per Dr. Osullivan group following, Infectious Disease standpoint. 3. Acute pulmonary emboli. Lovenox, However held for possible Chest drain placement. Resume once okayed. 4. 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 Overall negative I/Os, Appreciate cardiology recommendations. CXR reviewed 5. Encephalopathy, likely toxic metabolic. Continue to monitor. Currently on sedation. 6. Intermediate QuantiFERON gold test, AFB Negative, Only droplet precaution 7. Continue Pepcid for peptic ulcer disease prophylaxis. Critical care time >25min Subjective 24 Hr Interval Summary Free Text/Dictation NO events reported, Remains Intubated and sedated. Subjective hx not possible: pt critical status Exam/Review of Systems Vital Signs Vitals Vital Signs Date Time Temp Pulse Resp B/P Pulse Ox O2 Delivery O2 Flow Rate FiO2 10/07/16 12:46 80 16 98 30 10/07/16 12:00 98.5 93/59 Mechanical Ventilator Intake and Output 10/06/16 10/06/16 10/07/16 15:00 23:00 07:00 Intake Total 723.68 ml 842.63 ml 1004.2 ml Output Total 290 ml 2455 ml 260 ml Balance 433.68 ml -1612.37 ml 744.2 ml Exam ENMT: intubated, mucosa pink and moist Neck: No jvd Respiratory: crackles/rales, No diminished breath sounds, No labored breathing Cardiovascular: regular rate and rhythm, No edema Gastrointestinal: non-tender, soft, No distended, No rebound or guarding Genitourinary - Male: other (Tang) Extremities: No edema Neurological: other (sedated) Skin: nl turgor, No diaphoresis Results Result Diagram: 10/07/16 0400 10/07/16 0400 Results 24 hrs Laboratory Tests Test 10/07/16 04:00 10/07/16 07:51 Anion Gap 13 Basophils # 0.1 Basophils % 0.9 Blood Morphology Comment Blood Urea Nitrogen 16 Calcium Level 8.7 Carbon Dioxide Level 32 H Chloride Level 103 Creatinine 0.83 Eosinophils # 0.6 H Eosinophils % 8.1 H Glucose Level 96 Hematocrit 38.8 L Hemoglobin 12.5 L Lymphocytes # 1.4 Lymphocytes % 18.9 Magnesium Level 1.8 Mean Corpuscular Hemoglobin 28.7 L Mean Corpuscular Hemoglobin Concent 32.2 Mean Corpuscular Volume 89.1 Mean Platelet Volume 10.3 Monocytes # 1.0 H Monocytes % 13.3 H Neutrophils # 4.3 Neutrophils % 58.8 Nucleated Red Blood Cells # 0.0 Nucleated Red Blood Cells % 0.0 Phosphorus Level 3.8 Platelet Count 393 Potassium Level 3.5 Red Blood Count 4.36 L Red Cell Distribution Width 14.9 H Sodium Level 144 White Blood Count 7.4 # Lab Scanned Report REFERENCE LAB Medications Medications Current Medications Lorazepam (Ativan) 0.5 mg Q6H PRN IV ANXIETY Last administered on 09/27/16 10: 59; Admin Dose 0.5 MG; Start 09/15/16 at 18:00 Ondansetron HCl (Zofran Inj) 4 mg Q6H PRN IV NAUSEA AND/OR VOMITING; Start at 18:00 Morphine Sulfate (morphine) 2 mg Q4H PRN IV PAIN LEVEL 7-10 Last administered on 09/22/16 01:30; Admin Dose 2 MG; Start 09/15/16 at 18:00 Haloperidol 5 mg 5 mg Q6H PRN IM AGITATION Last administered on 09/19/16at 10: 40; Admin Dose 5 MG; Start 09/18/16 at 11:30 Propofol (Diprivan) 100 ml @ 3.105 mls/ hr Q12H IV Last administered on 01:05; Admin Dose 12.42 MLS/HR; Start 09/19/16 at 13:30 Famotidine 20 mg 20 mg BID IV Last administered on 10/07/16 09:25; Admin Dose 20 MG; Start 09/19/16 at 21:00 Fentanyl 1000 mcg/ Dextrose 100 ml @ 2.5 mls/hr TITRATE IV Last administered on 10/07/16 06:19; Admin Dose 5 MLS/HR; Start 09/23/16 at 10:00 Dextrose/Sodium Chloride (D5-NS) 1,000 ml @ 50 mls/hr Q20H IV Last administered on 10/06/16 23:44; Admin Dose 50 MLS/HR; Start 09/23/16 at 16:30 Metoclopramide HCl 10 mg 10 mg Q12 IV Last administered on 10/07/16 09:25; Admin Dose 10 MG; Start 09/24/16 at 11:30 Midazolam HCl/ Dextrose (Versed/D5W) 50 ml @ 2 mls/hr TITRATE IV Last administered on 10/07/16 05:58; Admin Dose 5 MLS/HR; Start 09/25/16 at 12:00 Acetaminophen 650 mg 650 mg Q4H PRN NGT PAIN AND OR ELEVATED TEMP Last administered on 10/02/16 00:50; Admin Dose 650 MG; Start 09/28/16 at 13:30 Piperacillin Sod/ Tazobactam Sod (Zosyn 3.375gm/ 100 ml (Pmx)) 100 ml @ 200 mls /hr Q6 IVPB Last administered on 10/07/16 11:53; Admin Dose 200 MLS/HR; Start 09/29/16 at 17:00 Enoxaparin Sodium 100 mg 100 mg Q12 SC Last administered on 10/05/16 09:57; Admin Dose 100 MG; Start 10/01/16 at 21:00; Status Future Hold Norepinephrine (Levophed) 250 ml @ 1.875 mls/ hr TITRATE IV ; Start 09/30/16 at 19:00 Lisinopril (Zestril) 2.5 mg DAILY GTB Last administered on 10/03/16 08:43; Admin Dose 2.5 MG; Start 10/02/16 at 09:00 Oseltamivir Phosphate (Tamiflu) 75 mg BID NGT Last administered on 10/07/16 09 :25; Admin Dose 75 MG; Start 10/02/16 at 21:00 Furosemide 40 mg 40 mg DAILY@06 IV Last administered on 10/07/16 10:16; Admin Dose 40 MG; Start 10/07/16 at 10:00 Potassium Chloride/Sodium Chloride (KCl/NS) 110 ml @ 55 mls/hr DAILY IVPB ; Start 10/08/16 at 10:00 Procedures Procedures PROCEDURE: XR, Chest. CLINICAL INDICATION: Follow up for respiratory distress. TECHNIQUE: AP chest. COMPARISON: Chest, 10/06/2016. FINDINGS: The heart remains enlarged with mild pulmonary venous congestion. There is large right pleural effusion, unchanged. There is mild left pleural effusion, unchanged. There is discoid atelectasis in the left mid lung. The ET tube, NG tube and left central venous line remain in good position. IMPRESSION: 1. Large right pleural effusion, unchanged. Mild left pleural effusion, unchanged. 2. Discoid atelectasis in the left mid lung. 3. Mild cardiomegaly with mild pulmonary venous congestion, unchanged. RPTAT: GG .Be Mcgowan MD, MD Date Time Electronically viewed and signed by .Be Mcgowan MD, MD on 10/07/2016 09:20 NANCY GUTIÉRREZ MD Oct 07, 2016 13:51
[2016-10-07] MEDS ORDERED: LIDOCAINE 1% (MDV) 20 ML INJ INJ PRN (15:30)
[2016-10-07 16:25] LABS: MYCOPLASMA PNEUMONIAE AB (IGG) < or = 0.90
--- NOTE | 2016-10-07 19:31 | RADRPT ---
PROCEDURE: XR Chest. CLINICAL INDICATION: chest tube placement TECHNIQUE: Single frontal chest x-ray. COMPARISON: 10/07/2016 at 05:45 a.m. FINDINGS: The tip of the endotracheal tube is approximately 3.7 cm above the ida. Right chest tube has bee n placed with the tip projected over the central right chest. Nasogastric tube is in the stomach wi th the tip not visualized on the radiograph. Left subclavian catheter tip in superior vena cava. M ild enlargement of the cardiac silhouette is again seen. Increased densities are again not seen in the lower lungs suggestive of infiltrates or pulmonary edema mildly improved compared to previous st udy. Small pleural effusions again seen. ECG leads are projected over the chest. Degenerative parish nges in thoracic spine. Degenerative changes at acromioclavicular joints. Calcification in the aor tic arch. No definite pneumothorax is seen with the patient semi-erect.. IMPRESSION: Right chest tube as noted above. Please see additional findings above. RPTAT: HJES .Spencer Irving MD, MD Date Time Electronically viewed and signed by .Spencer Irving MD, on 10/07/2016 19:30 .S/
[2016-10-07] MEDS: DEXTROSE 5%-0.9% NACL 1,000 ML IV SCH (20:06)
[2016-10-08] VITALS (52 sets, daily range): BP systolic 87–125; BP diastolic 45–91; PULSE 79–158; RESP 16–37
[2016-10-08] MEDS: PIPER-TAZO 3.375 GM IV (PMX) 100 ML IVPB SCH ×3 (02:01→12:50)
[2016-10-08] MEDS: MIDAZOLAM 50 MG in DEXTROSE 5% 40 ML IV SCH (02:04)
[2016-10-08] MEDS: FENTAnyl 1,000 MCG in DEXTROSE 5% 80 ML IV SCH ×2 (03:10→22:56)
[2016-10-08] MEDS: ACETAMINOPHEN 650MG/20.3ML CUP NGT PRN ×4 (03:41→21:42)
[2016-10-08 04:01] LABS: BASOPHILS % 0.7 % (0.0-2.0); CONDITION 1; EOSINOPHILS # 0.7 10^3/ul (0.0-0.5); EOSINOPHILS % 10.4 % (0.0-7.0); HEMATOCRIT 38.4 % (42.0-52.0); HEMOGLOBIN 12.3 g/dl (14.0-18.0); LH ANALYZER COMMENTS 1; LYMPHOCYTES # 0.7 10^3/ul (0.8-2.9); LYMPHOCYTES % 9.8 % (15.0-51.0); MEAN CORPUSCULAR HEMOGLOBIN 28.2 pg (29.0-33.0); MEAN CORPUSCULAR HGB CONC 32.2 g/dl (32.0-37.0); MEAN CORPUSCULAR VOLUME 87.8 fl (82.0-101.0); MEAN PLATELET VOLUME 9.9 fl (7.4-10.4); MONOCYTES % 15.1 % (0.0-11.0); NEUTROPHIL # 4.4 10^3/ul (1.6-7.5); PLATELET COUNT 418 10^3/UL (140-440); RED BLOOD COUNT 4.37 10^6/ul (4.70-6.10); RED CELL DISTRIBUTION WIDTH 15.1 % (11.5-14.5); UNCORRECTED WBC 6.9 10^3/ul (4.8-10.8); WHITE BLOOD COUNT 6.9 10^3/ul (4.8-10.8)
[2016-10-08 04:04] LABS: POTASSIUM 3.8 mmol/L (3.5-5.1)
[2016-10-08 04:07] LABS: CALCIUM 8.3 mg/dl (8.4-10.2); CREATININE 0.92 mg/dl (0.61-1.24)
[2016-10-08] MEDS: FUROSEMIDE 40 MG INJ IV SCH ×2 (06:00→08:49)
[2016-10-08] MEDS: PROPOFOL 100 ML IV SCH ×4 (07:38→22:18)
[2016-10-08] MEDS: FAMOTIDINE 20 MG INJ IV SCH ×2 (08:48→20:56)
[2016-10-08] MEDS: OSELTAMIVIR 75 MG CAP NGT SCH (08:48)
[2016-10-08] MEDS: METOCLOPRAMIDE 10 MG INJ IV SCH ×2 (08:48→20:56)
[2016-10-08] MEDS: LISINOPRIL 5 MG TAB GTB SCH (09:00)
[2016-10-08] MEDS: POTASSIUM CHLORIDE 20 MEQ in SOD CHLORIDE 0.9% 100 ML IVPB SCH (10:00)
--- NOTE | 2016-10-08 10:07 | CONS ---
Date/Time of Note Date/Time of Note DATE: 10/08/16 TIME: 10:03 Consult Date/Type/Reason Admit Date/Time Sep 15, 2016 at 16:54 Type of Consultation: pulmonary Ordering Provider: JAN ZHANG Subjective Patient had chest tube placed yesterday Significant drainage Radiographically improved Remains intubated and sedated Currently hemodynamically stable Objective Vital Signs Date Time Temp Pulse Resp B/P Pulse Ox O2 Delivery O2 Flow Rate FiO2 10/08/16 09:00 105 20 109/70 99 Mechanical Ventilator 10/08/16 08:00 30 10/08/16 07:00 98.8 Intake and Output 10/07/16 10/07/16 10/08/16 15:00 23:00 07:00 Intake Total 629.6 ml 615.1 ml 1421 ml Output Total 1525 ml 550 ml 640 ml Balance -895.4 ml 65.1 ml 781 ml PHYSICAL EXAMINATION GENERAL: Chronically ill gentleman intubated on mechanical ventilation VITAL SIGNS: see below. HEENT: Pupils equal, round, and reactive to light. CARDIAC: S1, S2, CHEST: Diminished air entry bilaterally. ABDOMEN: Mildly distended. Bowel sounds present abdomen mildly distended no guarding or rebound. EXTREMITIES: No cyanosis, clubbing edema +1 NEUROLOGIC: Unable to assess. Results/Medications Result Diagram: 10/08/16 0330 10/08/16 0330 Results 24 hrs Chest x-ray Improved aeration right lung Laboratory Tests Test 10/08/16 03:30 10/08/16 06:32 Anion Gap 12 Basophils # 0.0 Basophils % 0.7 Blood Morphology Comment Blood Urea Nitrogen 17 Calcium Level 8.3 L Carbon Dioxide Level 30 Chloride Level 105 Creatinine 0.92 Eosinophils # 0.7 H Eosinophils % 10.4 H Glucose Level 124 Hematocrit 38.4 L Hemoglobin 12.3 L Lymphocytes # 0.7 L Lymphocytes % 9.8 L Mean Corpuscular Hemoglobin 28.2 L Mean Corpuscular Hemoglobin Concent 32.2 Mean Corpuscular Volume 87.8 Mean Platelet Volume 9.9 Monocytes # 1.0 H Monocytes % 15.1 H Neutrophils # 4.4 Neutrophils % 64.0 Nucleated Red Blood Cells # 0.0 Nucleated Red Blood Cells % 0.0 Platelet Count 418 Potassium Level 3.8 Red Blood Count 4.37 L Red Cell Distribution Width 15.1 H Sodium Level 143 White Blood Count 6.9 Lab Scanned Report REFERENCE LAB Medications Current Medications Lorazepam (Ativan) 0.5 mg Q6H PRN IV ANXIETY Last administered on 09/27/16 10: 59; Admin Dose 0.5 MG; Start 09/15/16 at 18:00 Ondansetron HCl (Zofran Inj) 4 mg Q6H PRN IV NAUSEA AND/OR VOMITING; Start at 18:00 Morphine Sulfate (morphine) 2 mg Q4H PRN IV PAIN LEVEL 7-10 Last administered on 09/22/16 01:30; Admin Dose 2 MG; Start 09/15/16 at 18:00 Haloperidol 5 mg 5 mg Q6H PRN IM AGITATION Last administered on 09/19/16at 10: 40; Admin Dose 5 MG; Start 09/18/16 at 11:30 Propofol (Diprivan) 100 ml @ 3.105 mls/ hr Q12H IV Last administered on 07:38; Admin Dose 9.315 MLS/HR; Start 09/19/16 at 13:30 Famotidine 20 mg 20 mg BID IV Last administered on 10/08/16 08:48; Admin Dose 20 MG; Start 09/19/16 at 21:00 Fentanyl 1000 mcg/ Dextrose 100 ml @ 2.5 mls/hr TITRATE IV Last administered on 10/08/16 03:10; Admin Dose 5 MLS/HR; Start 09/23/16 at 10:00 Dextrose/Sodium Chloride (D5-NS) 1,000 ml @ 50 mls/hr Q20H IV Last administered on 10/07/16 20:06; Admin Dose 50 MLS/HR; Start 09/23/16 at 16:30 Metoclopramide HCl 10 mg 10 mg Q12 IV Last administered on 10/08/16 08:48; Admin Dose 10 MG; Start 09/24/16 at 11:30 Midazolam HCl/ Dextrose (Versed/D5W) 50 ml @ 2 mls/hr TITRATE IV Last administered on 10/08/16 02:04; Admin Dose 7 MLS/HR; Start 09/25/16 at 12:00 Acetaminophen 650 mg 650 mg Q4H PRN NGT PAIN AND OR ELEVATED TEMP Last administered on 10/08/16 03:41; Admin Dose 650 MG; Start 09/28/16 at 13:30 Piperacillin Sod/ Tazobactam Sod (Zosyn 3.375gm/ 100 ml (Pmx)) 100 ml @ 200 mls /hr Q6 IVPB Last administered on 10/08/16 06:11; Admin Dose 200 MLS/HR; Start 09/29/16 at 17:00 Enoxaparin Sodium 100 mg 100 mg Q12 SC Last administered on 10/05/16 09:57; Admin Dose 100 MG; Start 10/01/16 at 21:00; Status Future Hold Norepinephrine (Levophed) 250 ml @ 1.875 mls/ hr TITRATE IV ; Start 09/30/16 at 19:00 Lisinopril (Zestril) 2.5 mg DAILY GTB Last administered on 10/03/16 08:43; Admin Dose 2.5 MG; Start 10/02/16 at 09:00 Oseltamivir Phosphate (Tamiflu) 75 mg BID NGT Last administered on 10/08/16 08 :48; Admin Dose 75 MG; Start 10/02/16 at 21:00 Furosemide 40 mg 40 mg DAILY@06 IV Last administered on 10/08/16 08:49; Admin Dose 40 MG; Start 10/07/16 at 10:00 Potassium Chloride/Sodium Chloride (KCl/NS) 110 ml @ 55 mls/hr DAILY IVPB ; Start 10/08/16 at 10:00 Assessment/Plan Chief Complaint/Hosp Course IMPRESSION: 1. Hypoxemic respiratory failure/vent dependence 2. Right sided pneumonia with complicated parapneumonic effusion s/p thoracentesis, repeat thoracentesis however x-ray shows reaccumulation. Now status post chest tube placement 3. Acute pulmonary emboli 4. Encephalopathy, likely toxic metabolic. 5. Transaminitis 6. FEN- Increased Na+ 7. Rule out viral pneumonia 8. History of polysubstance abuse PLAN: 1. Recurrent right pleural effusion. Repeat pleural fluid studies. Status post chest tube placement. CPAP weaning trial today 2. cultures pending, ID recommendations, consider dc respiratory isolation. 3. continue lovenox 4. Continue Free H20 5 IV fluids per primary team 6. We'll consider Precedex for agitation Overall prognosis is guarded Problems: AMANDA STONE MD, [facility] Oct 08, 2016 10:07
--- NOTE | 2016-10-08 15:01 | CONS ---
Date/Time of Note Date/Time of Note DATE: 10/08/16 TIME: 15:00 Assessment/Plan Assessment/Plan Chief Complaint/Hosp Course - Sepsis d/t PNA with parapneumonic effusion. - PNA with parapneumonic effusion. Could be started as CAP, other considerations include aspiration PNA - recurrent right pleural effusion. s/p diagnostic thoracentesis on 09/22/16. It showed glu=74 pro <2, BSD=[id number]. No malignancy on cytology. s/p repeat thoracentesis 10/01/16. Again, no malignancy on cytology. Right chest tube placed 10/07/16. - recurrent fever, ? 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 Acute hepatitis panel negative - rash, likely drug rash possibly d/t pip/tazo - mild leukopenia - resolved - s/p hyperkalemia and hypokalemia - s/p hyponatremia and hypernatremia - s/p lactic acidosis - s/p Vanco (09/19/16-10/04/16) and azithromycin (10/02/16-10/06/16) - Negative rapid influenza screen, PPD, legionella antigen, mycoplasma pneumoniae, chlamydia pneumoniae serology, and respiratory viral panel; AFB smear negative (09/29, 09/30 & 10/01) Recommendations: - discontinue pip/tazo (09/29/2016-) - start vanco and meropenem - repeat procalcitonin and respiratory/endotracheal culture - f/u blood and urine cultures - discontinue empiric Tamiflu (10/02/16-) - discontinue droplet precautions - send pleural fluid for gram stain, culture, AFB, fungal culture - monitor rash - management d/w [employer] Stephanie - Above d/w Dr. Osullivan - critical care time spent: 45 min Problems: Consultation Date/Type/Reason Admit Date/Time Sep 15, 2016 at 16:54 Initial Consult Date 09/29/16 Type of Consultation: Infectious Disease Referring Provider: JAN ZHANG 24 HR Interval Summary Free Text/Dictation Right chest tube placed last night, spike fever overnight, paz cultures sent, failed CPAP trial this AM per RN Oleg. Off Versed but remains on Fentanyl and Propofol; has stage 3 sacral decub per nursing staff. ROS limited d/t pt being intubated and sedated. Exam/Review of Systems Vital Signs Vitals Vital Signs Date Time Temp Pulse Resp B/P Pulse Ox O2 Delivery O2 Flow Rate FiO2 10/08/16 13:00 103.2 131 23 96/66 96 Mechanical Ventilator 10/08/16 12:00 30 Intake and Output 10/07/16 10/07/16 10/08/16 15:00 23:00 07:00 Intake Total 629.6 ml 615.1 ml 1522.3 ml Output Total 1525 ml 550 ml 670 ml Balance -895.4 ml 65.1 ml 852.3 ml Exam Constitutional: other (orally intubated and sedated on Fentanyl and propofol), well developed Head: atraumatic, normocephalic ENMT: intubated Neck: supple, No masses Respiratory: diminished breath sounds, other (left subclavian central line c/d/ i). Right chest tube intact. Cardiovascular: nl pulses, regular rate and rhythm Gastrointestinal: bowel sounds, other (NGT with TF intact), soft Genitourinary - Male: nl penis, nl scrotum, other (Tang cath intact with clear dark yellow urine) Musculoskeletal: swelling Extremities: edema, normal pulses, No clubbing, No cyanosis Neurological: other (sedated). BUE in wrist restraints Skin: nl turgor, rash (diffuse petechial rash to entire body) other (Multiple tattoos including 2 flags on the left bicep area and the name Missy on LUE; stage 3 sacral decub - see photo in chart and nursing documentation for details) Results Result Diagram: 10/08/16 0330 10/08/16 0330 Results 24 hrs Laboratory Tests Test 10/08/16 03:30 10/08/16 06:32 Anion Gap 12 Basophils # 0.0 Basophils % 0.7 Blood Morphology Comment Blood Urea Nitrogen 17 Calcium Level 8.3 L Carbon Dioxide Level 30 Chloride Level 105 Creatinine 0.92 Eosinophils # 0.7 H Eosinophils % 10.4 H Glucose Level 124 Hematocrit 38.4 L Hemoglobin 12.3 L Lymphocytes # 0.7 L Lymphocytes % 9.8 L Mean Corpuscular Hemoglobin 28.2 L Mean Corpuscular Hemoglobin Concent 32.2 Mean Corpuscular Volume 87.8 Mean Platelet Volume 9.9 Monocytes # 1.0 H Monocytes % 15.1 H Neutrophils # 4.4 Neutrophils % 64.0 Nucleated Red Blood Cells # 0.0 Nucleated Red Blood Cells % 0.0 Platelet Count 418 Potassium Level 3.8 Red Blood Count 4.37 L Red Cell Distribution Width 15.1 H Sodium Level 143 White Blood Count 6.9 Lab Scanned Report REFERENCE LAB Medications Medications Current Medications Lorazepam (Ativan) 0.5 mg Q6H PRN IV ANXIETY Last administered on 09/27/16 10: 59; Admin Dose 0.5 MG; Start 09/15/16 at 18:00 Ondansetron HCl (Zofran Inj) 4 mg Q6H PRN IV NAUSEA AND/OR VOMITING; Start at 18:00 Morphine Sulfate (morphine) 2 mg Q4H PRN IV PAIN LEVEL 7-10 Last administered on 09/22/16 01:30; Admin Dose 2 MG; Start 09/15/16 at 18:00 Haloperidol 5 mg 5 mg Q6H PRN IM AGITATION Last administered on 09/19/16at 10: 40; Admin Dose 5 MG; Start 09/18/16 at 11:30 Propofol (Diprivan) 100 ml @ 3.105 mls/ hr Q12H IV Last administered on 12:48; Admin Dose 9.315 MLS/HR; Start 09/19/16 at 13:30 Famotidine 20 mg 20 mg BID IV Last administered on 10/08/16 08:48; Admin Dose 20 MG; Start 09/19/16 at 21:00 Fentanyl 1000 mcg/ Dextrose 100 ml @ 2.5 mls/hr TITRATE IV Last administered on 10/08/16 03:10; Admin Dose 5 MLS/HR; Start 09/23/16 at 10:00 Dextrose/Sodium Chloride (D5-NS) 1,000 ml @ 50 mls/hr Q20H IV Last administered on 10/07/16 20:06; Admin Dose 50 MLS/HR; Start 09/23/16 at 16:30 Metoclopramide HCl 10 mg 10 mg Q12 IV Last administered on 10/08/16 08:48; Admin Dose 10 MG; Start 09/24/16 at 11:30 Midazolam HCl/ Dextrose (Versed/D5W) 50 ml @ 2 mls/hr TITRATE IV Last administered on 10/08/16 02:04; Admin Dose 7 MLS/HR; Start 09/25/16 at 12:00; Status Future Hold Acetaminophen 650 mg 650 mg Q4H PRN NGT PAIN AND OR ELEVATED TEMP Last administered on 10/08/16 12:46; Admin Dose 650 MG; Start 09/28/16 at 13:30 Piperacillin Sod/ Tazobactam Sod (Zosyn 3.375gm/ 100 ml (Pmx)) 100 ml @ 200 mls /hr Q6 IVPB Last administered on 10/08/16 12:50; Admin Dose 200 MLS/HR; Start 09/29/16 at 17:00 Enoxaparin Sodium 100 mg 100 mg Q12 SC Last administered on 10/05/16 09:57; Admin Dose 100 MG; Start 10/01/16 at 21:00; Status Future Hold Norepinephrine (Levophed) 250 ml @ 1.875 mls/ hr TITRATE IV ; Start 09/30/16 at 19:00 Lisinopril (Zestril) 2.5 mg DAILY GTB Last administered on 10/03/16 08:43; Admin Dose 2.5 MG; Start 10/02/16 at 09:00 Oseltamivir Phosphate (Tamiflu) 75 mg BID NGT Last administered on 10/08/16 08 :48; Admin Dose 75 MG; Start 10/02/16 at 21:00 Furosemide 40 mg 40 mg DAILY@06 IV Last administered on 10/08/16 08:49; Admin Dose 40 MG; Start 10/07/16 at 10:00 Potassium Chloride/Sodium Chloride (KCl/NS) 110 ml @ 55 mls/hr DAILY IVPB ; Start 10/08/16 at 10:00 Procedures Procedures CXR 10/07/16 at 1930: FINDINGS: The tip of the endotracheal tube is approximately 3.7 cm above the ida. Right chest tube has been placed with the tip projected over the central right chest. Nasogastric tube is in the stomach with the tip not visualized on the radiograph. Left subclavian catheter tip in superior vena cava. Mild enlargement of the cardiac silhouette is again seen. Increased densities are again not seen in the lower lungs suggestive of infiltrates or pulmonary edema mildly improved compared to previous study. Small pleural effusions again seen. ECG leads are projected over the chest. Degenerative changes in thoracic spine. Degenerative changes at acromioclavicular joints. Calcification in the aortic arch. No definite pneumothorax is seen with the patient semi-erect.. IMPRESSION: Right chest tube as noted above. Please see additional findings above. CXR 10/07/16 at 0500: 1. Large right pleural effusion, unchanged. Mild left pleural effusion, unchanged. 2. Discoid atelectasis in the left mid lung. 3. Mild cardiomegaly with mild pulmonary venous congestion, unchanged. LAURA OJEDA NP Oct 08, 2016 15:01 LAURA OJEDA NP Oct 08, 2016 15:01
--- NOTE | 2016-10-08 15:22 | CONS ---
Date/Time of Note Date/Time of Note DATE: 10/08/16 TIME: 15:21 Assessment/Plan Assessment/Plan Additional Assessment/Plan Respiratory failure Pulmonary emboli Acute decompensated systolic congestive heart failure Severe biventricular cardiomyopathy with left ventricular ejection fraction 20% Pleural effusion status post thoracentesis -Peripheral edema has improved significantly, would decrease dose of Lasix, restart Lovenox if no contraindication Consultation Date/Type/Reason Admit Date/Time Sep 15, 2016 at 16:54 Initial Consult Date 09/29/16 Type of Consultation: cv Referring Provider: JAN ZHANG 24 HR Interval Summary Free Text/Dictation Patient sedated and intubated Exam/Review of Systems Vital Signs Vitals Vital Signs Date Time Temp Pulse Resp B/P Pulse Ox O2 Delivery O2 Flow Rate FiO2 10/08/16 15:00 102 18 98/62 98 Mechanical Ventilator 10/08/16 13:00 103.2 10/08/16 12:00 30 Intake and Output 10/07/16 10/07/16 10/08/16 15:00 23:00 07:00 Intake Total 629.6 ml 615.1 ml 1522.3 ml Output Total 1525 ml 550 ml 670 ml Balance -895.4 ml 65.1 ml 852.3 ml Exam Sedated and intubated Head: normocephalic ENMT: intubated Respiratory: other (course breath sounds bilaterally, no wheezing) Cardiovascular: other (S1 and S2 heard), regular rate and rhythm Gastrointestinal: bowel sounds, non-tender, soft Extremities: edema Results Result Diagram: 10/08/16 0330 10/08/16 0330 Results 24 hrs Laboratory Tests Test 10/08/16 03:30 10/08/16 06:32 Anion Gap 12 Basophils # 0.0 Basophils % 0.7 Blood Morphology Comment Blood Urea Nitrogen 17 Calcium Level 8.3 L Carbon Dioxide Level 30 Chloride Level 105 Creatinine 0.92 Eosinophils # 0.7 H Eosinophils % 10.4 H Glucose Level 124 Hematocrit 38.4 L Hemoglobin 12.3 L Lymphocytes # 0.7 L Lymphocytes % 9.8 L Mean Corpuscular Hemoglobin 28.2 L Mean Corpuscular Hemoglobin Concent 32.2 Mean Corpuscular Volume 87.8 Mean Platelet Volume 9.9 Monocytes # 1.0 H Monocytes % 15.1 H Neutrophils # 4.4 Neutrophils % 64.0 Nucleated Red Blood Cells # 0.0 Nucleated Red Blood Cells % 0.0 Platelet Count 418 Potassium Level 3.8 Red Blood Count 4.37 L Red Cell Distribution Width 15.1 H Sodium Level 143 White Blood Count 6.9 Lab Scanned Report REFERENCE LAB Medications Medications Current Medications Lorazepam (Ativan) 0.5 mg Q6H PRN IV ANXIETY Last administered on 09/27/16 10: 59; Admin Dose 0.5 MG; Start 09/15/16 at 18:00 Ondansetron HCl (Zofran Inj) 4 mg Q6H PRN IV NAUSEA AND/OR VOMITING; Start at 18:00 Morphine Sulfate (morphine) 2 mg Q4H PRN IV PAIN LEVEL 7-10 Last administered on 09/22/16 01:30; Admin Dose 2 MG; Start 09/15/16 at 18:00 Haloperidol 5 mg 5 mg Q6H PRN IM AGITATION Last administered on 09/19/16at 10: 40; Admin Dose 5 MG; Start 09/18/16 at 11:30 Propofol (Diprivan) 100 ml @ 3.105 mls/ hr Q12H IV Last administered on 12:48; Admin Dose 9.315 MLS/HR; Start 09/19/16 at 13:30 Famotidine 20 mg 20 mg BID IV Last administered on 10/08/16 08:48; Admin Dose 20 MG; Start 09/19/16 at 21:00 Fentanyl 1000 mcg/ Dextrose 100 ml @ 2.5 mls/hr TITRATE IV Last administered on 10/08/16 03:10; Admin Dose 5 MLS/HR; Start 09/23/16 at 10:00 Dextrose/Sodium Chloride (D5-NS) 1,000 ml @ 50 mls/hr Q20H IV Last administered on 10/07/16 20:06; Admin Dose 50 MLS/HR; Start 09/23/16 at 16:30 Metoclopramide HCl 10 mg 10 mg Q12 IV Last administered on 10/08/16 08:48; Admin Dose 10 MG; Start 09/24/16 at 11:30 Midazolam HCl/ Dextrose (Versed/D5W) 50 ml @ 2 mls/hr TITRATE IV Last administered on 10/08/16 02:04; Admin Dose 7 MLS/HR; Start 09/25/16 at 12:00; Status Future Hold Acetaminophen 650 mg 650 mg Q4H PRN NGT PAIN AND OR ELEVATED TEMP Last administered on 10/08/16 12:46; Admin Dose 650 MG; Start 09/28/16 at 13:30 Piperacillin Sod/ Tazobactam Sod (Zosyn 3.375gm/ 100 ml (Pmx)) 100 ml @ 200 mls /hr Q6 IVPB Last administered on 10/08/16 12:50; Admin Dose 200 MLS/HR; Start 09/29/16 at 17:00 Enoxaparin Sodium 100 mg 100 mg Q12 SC Last administered on 10/05/16 09:57; Admin Dose 100 MG; Start 10/01/16 at 21:00; Status Future Hold Norepinephrine (Levophed) 250 ml @ 1.875 mls/ hr TITRATE IV ; Start 09/30/16 at 19:00 Lisinopril (Zestril) 2.5 mg DAILY GTB Last administered on 10/03/16 08:43; Admin Dose 2.5 MG; Start 10/02/16 at 09:00 Oseltamivir Phosphate (Tamiflu) 75 mg BID NGT Last administered on 10/08/16 08 :48; Admin Dose 75 MG; Start 10/02/16 at 21:00 Furosemide 40 mg 40 mg DAILY@06 IV Last administered on 10/08/16 08:49; Admin Dose 40 MG; Start 10/07/16 at 10:00 Potassium Chloride/Sodium Chloride (KCl/NS) 110 ml @ 55 mls/hr DAILY IVPB ; Start 10/08/16 at 10:00 Nikolay Luna DO Oct 08, 2016 15:22
[2016-10-08] MEDS ORDERED: MAGNESIUM SULFATE 2 GM/50 ML 50 ML IVPB ONE (15:30)
[2016-10-08] MEDS: DEXTROSE 5%-0.9% NACL 1,000 ML IV SCH (15:55)
[2016-10-08] MEDS ORDERED: VANCOMYCIN IV PER PHARMACY XX STA (17:12)
[2016-10-08] MEDS ORDERED: COLLAGENASE 30 GM TUBE TOP PRN (17:30)
[2016-10-08] MEDS ORDERED: VANCOMYCIN IV PER PHARMACY XX SCH (17:30)
[2016-10-08] MEDS: MEROPENEM 1 GM in SOD CHLORIDE 0.9% 100 ML IVPB SCH (17:58)
[2016-10-08] MEDS ORDERED: VANCOMYCIN 2 GM in SOD CHLORIDE 0.9% 500 ML IVPB SCH (18:30)
--- NOTE | 2016-10-08 19:24 | PN ---
Date/Time of Note Date/Time of Note DATE: 10/08/16 TIME: 19:20 Assessment/Plan VTE Prophylaxis VTE Prophylaxis Intervention: other Lines/Catheters IV Catheter Type (from Nrs): Central Line Central line still needed: Yes Urinary Cath still in place: Yes Reason Cath still needed: urinary retention Assessment/Plan Assessment/Plan 1. Acute respiratory failure. 1. Acute respiratory failure. - per Dr. Aquino from pulmonology consultation. - Continue bronchodilators and vent support. 2. Right-sided pneumonia with complicated parapneumonic effusion, status post thoracentesis. - per Dr. Hernandez from an Infectious Disease standpoint. - Continue patient on vancomycin and cefepime. 3. Acute pulmonary emboli. Continue patient on Lovenox. 4. 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 - per Dr. Woodard from cardiology standpoint. - Continue patient on Lasix. 5. Encephalopathy, likely toxic metabolic. Continue to monitor. 6. 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 7. Bilateral hand/feet edema- DVT- Right cephalic , left peroneal vein DVT. - on anticoagulants Continue Pepcid for peptic ulcer disease prophylaxis. Total critical time spent for patient fu is 40 mins. Further recommendations based on clinical course. Plan of care discussed with Dr. Yeh covering for Dr Patel Subjective 24 Hr Interval Summary Free Text/Dictation NAD, CPAP was unsuccessful, on Propofol and versed. dw staff. Exam/Review of Systems Vital Signs Vitals Vital Signs Date Time Temp Pulse Resp B/P Pulse Ox O2 Delivery O2 Flow Rate FiO2 10/08/16 18:30 104 21 93/53 100 10/08/16 18:00 Mechanical Ventilator 10/08/16 17:40 30 10/08/16 16:00 100.1 Intake and Output 10/07/16 10/07/16 10/08/16 15:00 23:00 07:00 Intake Total 629.6 ml 615.1 ml 1522.3 ml Output Total 1525 ml 550 ml 670 ml Balance -895.4 ml 65.1 ml 852.3 ml Exam Constitutional: non-verbal Eyes: nl sclera ENMT: nl external ears & nose Neck: non-tender Respiratory: diminished breath sounds Cardiovascular: nl pulses Gastrointestinal: non-tender, soft Musculoskeletal: other Neurological: lethargic Skin: other Lymph: other Results Result Diagram: 10/08/16 0330 10/08/16 0330 Results 24 hrs Laboratory Tests Test 10/08/16 03:30 10/08/16 06:32 Anion Gap 12 Basophils # 0.0 Basophils % 0.7 Blood Morphology Comment Blood Urea Nitrogen 17 Calcium Level 8.3 L Carbon Dioxide Level 30 Chloride Level 105 Creatinine 0.92 Eosinophils # 0.7 H Eosinophils % 10.4 H Glucose Level 124 Hematocrit 38.4 L Hemoglobin 12.3 L Lymphocytes # 0.7 L Lymphocytes % 9.8 L Mean Corpuscular Hemoglobin 28.2 L Mean Corpuscular Hemoglobin Concent 32.2 Mean Corpuscular Volume 87.8 Mean Platelet Volume 9.9 Monocytes # 1.0 H Monocytes % 15.1 H Neutrophils # 4.4 Neutrophils % 64.0 Nucleated Red Blood Cells # 0.0 Nucleated Red Blood Cells % 0.0 Platelet Count 418 Potassium Level 3.8 Red Blood Count 4.37 L Red Cell Distribution Width 15.1 H Sodium Level 143 White Blood Count 6.9 Lab Scanned Report REFERENCE LAB Medications Medications Current Medications Lorazepam (Ativan) 0.5 mg Q6H PRN IV ANXIETY Last administered on 09/27/16 10: 59; Admin Dose 0.5 MG; Start 09/15/16 at 18:00 Ondansetron HCl (Zofran Inj) 4 mg Q6H PRN IV NAUSEA AND/OR VOMITING; Start at 18:00 Morphine Sulfate (morphine) 2 mg Q4H PRN IV PAIN LEVEL 7-10 Last administered on 09/22/16 01:30; Admin Dose 2 MG; Start 09/15/16 at 18:00 Haloperidol 5 mg 5 mg Q6H PRN IM AGITATION Last administered on 09/19/16at 10: 40; Admin Dose 5 MG; Start 09/18/16 at 11:30 Propofol (Diprivan) 100 ml @ 3.105 mls/ hr Q12H IV Last administered on 18:18; Admin Dose 18.63 MLS/HR; Start 09/19/16 at 13:30 Famotidine 20 mg 20 mg BID IV Last administered on 10/08/16 08:48; Admin Dose 20 MG; Start 09/19/16 at 21:00 Fentanyl 1000 mcg/ Dextrose 100 ml @ 2.5 mls/hr TITRATE IV Last administered on 10/08/16 03:10; Admin Dose 5 MLS/HR; Start 09/23/16 at 10:00 Dextrose/Sodium Chloride (D5-NS) 1,000 ml @ 50 mls/hr Q20H IV Last administered on 10/08/16 15:55; Admin Dose 50 MLS/HR; Start 09/23/16 at 16:30 Metoclopramide HCl 10 mg 10 mg Q12 IV Last administered on 10/08/16 08:48; Admin Dose 10 MG; Start 09/24/16 at 11:30 Midazolam HCl/ Dextrose (Versed/D5W) 50 ml @ 2 mls/hr TITRATE IV Last administered on 10/08/16 02:04; Admin Dose 7 MLS/HR; Start 09/25/16 at 12:00; Status Future Hold Acetaminophen (Tylenol Liquid) 650 mg Q4H PRN NGT PAIN AND OR ELEVATED TEMP Last administered on 10/08/16 17:56; Admin Dose 650 MG; Start 09/28/16 at 13:30 Enoxaparin Sodium 100 mg 100 mg Q12 SC Last administered on 10/05/16 09:57; Admin Dose 100 MG; Start 10/01/16 at 21:00; Status Future Hold Norepinephrine (Levophed) 250 ml @ 1.875 mls/ hr TITRATE IV ; Start 09/30/16 at 19:00 Lisinopril 2.5 mg 2.5 mg DAILY GTB Last administered on 10/03/16 08:43; Admin Dose 2.5 MG; Start 10/02/16 at 09:00 Potassium Chloride/Sodium Chloride (KCl/NS) 110 ml @ 55 mls/hr DAILY IVPB ; Start 10/08/16 at 10:00 Furosemide 20 mg 20 mg DAILY@06 IV ; Start 10/09/16 at 06:00 Meropenem/Sodium Chloride (Merrem/NS) 100 ml @ 200 mls/hr Q12 IVPB Last administered on 10/08/16 17:58; Admin Dose 200 MLS/HR; Start 10/08/16 at 18:30 Vancomycin HCl (Vanco Iv Per Pharmacy) PER PHARMACY DOSING NOTE XX ; Start 1/19 /17 at 17:30 Collagenase (Santyl) 1 applic DAILY TOP ; Start 10/08/16 at 20:00 Nystatin (Nystatin Powder) 1 applic BID TOP ; Start 10/08/16 at 21:00 Collagenase 1 applic 1 applic PRN PRN TOP WOUND CARE; Start 10/08/16 at 17:30 Vancomycin HCl/ Sodium Chloride (Vancocin/NS) 250 ml @ 83.333 mls/ hr Q12H IVPB ; Start 10/09/16 at 06:00 CECY BELTRAN Oct 08, 2016 19:24
--- NOTE | 2016-10-08 19:28 | PN ---
Date/Time of Note Date/Time of Note DATE: 10/08/16 TIME: 19:28 Assessment/Plan Lines/Catheters IV Catheter Type (from Nrsg): Central Line Tang in Place (from Nrsg): Yes Assessment/Plan Chief Complaint/Hosp Course IMPRESSION 1. Pulmonary embolism. 2. Pneumonia. 3 Pleural effusion RECOMMENDATIONS: SP CT placement will continue CT sxn Problems: Subjective 24 Hr Interval Summary Constitutional: improved Pain Control: mild Exam/Review of Systems Vital Signs Vitals Vital Signs Date Time Temp Pulse Resp B/P Pulse Ox O2 Delivery O2 Flow Rate FiO2 10/08/16 18:30 104 21 93/53 100 10/08/16 18:00 Mechanical Ventilator 10/08/16 17:40 30 10/08/16 16:00 100.1 Intake and Output 10/07/16 10/07/16 10/08/16 15:00 23:00 07:00 Intake Total 629.6 ml 615.1 ml 1522.3 ml Output Total 1525 ml 550 ml 670 ml Balance -895.4 ml 65.1 ml 852.3 ml Exam Neck: non-tender, supple Respiratory: clear to auscultation, normal air movement Cardiovascular: nl pulses, regular rate and rhythm Gastrointestinal: nl liver, spleen, non-tender, soft Results Result Diagram: 10/08/1632910/08/16329 YOUNG HAY MD Oct 08, 2016 19:28
[2016-10-08] MEDS: NYSTATIN 30 GM POWDER BTL TOP SCH (20:55)
[2016-10-08] MEDS: COLLAGENASE 30 GM TUBE TOP SCH (20:55)
[2016-10-09] VITALS (70 sets, daily range): BP systolic 80–109; BP diastolic 43–73; PULSE 82–129; RESP 10–26
[2016-10-09] MEDS: PROPOFOL 100 ML IV SCH ×6 (01:35→21:26)
[2016-10-09] MEDS: LORAZEPAM 2 MG INJ IV PRN (04:35)
[2016-10-09 05:28] LABS: EOSINOPHILS # 0.3 10^3/ul (0.0-0.5); EOSINOPHILS % 3.8 % (0.0-7.0); HEMATOCRIT 37.1 % (42.0-52.0); HEMOGLOBIN 12.2 g/dl (14.0-18.0); LYMPHOCYTES # 0.3 10^3/ul (0.8-2.9); MEAN CORPUSCULAR HEMOGLOBIN 28.8 pg (29.0-33.0); MEAN CORPUSCULAR HGB CONC 32.9 g/dl (32.0-37.0); MEAN CORPUSCULAR VOLUME 87.6 fl (82.0-101.0); MEAN PLATELET VOLUME 9.4 fl (7.4-10.4); MONOCYTE # 0.8 10^3/ul (0.3-0.9); MONOCYTES % 9.9 % (0.0-11.0); NEUTROPHIL # 6.6 10^3/ul (1.6-7.5); NEUTROPHILS % 82.3 % (39.0-77.0); PLATELET COUNT 341 10^3/UL (140-440); RED BLOOD COUNT 4.24 10^6/ul (4.70-6.10); RED CELL DISTRIBUTION WIDTH 15.1 % (11.5-14.5)
[2016-10-09 05:32] LABS: CREATININE 0.73 mg/dl (0.61-1.24)
[2016-10-09 05:36] LABS: CONDITION 1; LH ANALYZER COMMENTS 1
[2016-10-09] MEDS ORDERED: VANCOMYCIN 1.25 GM in SOD CHLORIDE 0.9% 250 ML IVPB SCH (06:00)
[2016-10-09] MEDS: VANCOMYCIN 1.5 GM in SOD CHLORIDE 0.9% 250 ML IVPB SCH ×2 (06:11→17:11)
[2016-10-09] MEDS: FUROSEMIDE 20 MG INJ IV SCH (06:11)
[2016-10-09 06:27] LABS: ALBUMIN 2.9 g/dl (3.3-4.9)
[2016-10-09 06:28] LABS: POTASSIUM 3.5 mmol/L (3.5-5.1)
[2016-10-09 06:30] LABS: BILIRUBIN,INDIRECT 0.4 mg/dl (0-1.1); BILIRUBIN,TOTAL 0.4 mg/dl (0.2-1.3); CREATININE 0.75 mg/dl (0.61-1.24)
[2016-10-09 06:31] LABS: ALBUMIN/GLOBULIN RATIO 0.74; CALCIUM 7.9 mg/dl (8.4-10.2); TOTAL PROTEIN 6.8 g/dl (6.1-8.1)
[2016-10-09] MEDS: ACETAMINOPHEN 650MG/20.3ML CUP NGT PRN (07:04)
--- NOTE | 2016-10-09 08:11 | RADRPT ---
PROCEDURE: Chest Radiograph. CLINICAL INDICATION: Pneumonia. CHF. TECHNIQUE: Single frontal chest radiograph. COMPARISON: Chest radiograph 10/07/2016 FINDINGS: An endotracheal tube, nasogastric tube, left upper extremity PICC, and right chest tube remain in st able and radiographically appropriate position. There is no pneumothorax. The heart is magnified. The cardiomediastinal silhouette is within normal limits. There is patchy right basilar atelectasis or infiltrate, mildly improved when compared to prior study . There has been interval improved aer ation of the left lung base. Left lung is not clear.. The bones are intact. IMPRESSION: 1. Improved aeration of the bilateral lung bases with mild residual right basilar atelectasis/infil trate, and resolution of left basilar pleural / parenchymal disease. 2. Otherwise stable radiographic appearance of chest compared to 10/07/2016. RPTAT: AA .Kennedy Yun MD, MD Date Time Electronically viewed and signed by .Kennedy Yun MD, on 10/09/2016 08:11 .B/
[2016-10-09 08:17] LABS: AADO2 Arterial 71.9 mmHg (7.0-24.0); Allen Test ACCEPTAB; Arterial Base Excess 3.6 mmol/L (-3.0-3); Arterial COHb 0.2 % (0.0-3.0); Arterial Fraction of Oxyhgb 96.5 % (93.0-99.0); Arterial HCO3 28.4 mmol/L (22.0-26.0); Arterial MetHb 0.2 % (0.0-1.5); Arterial Total Hemglobin 12.9 g/dl (12.0-18.0); MODE VENT - AC
[2016-10-09] MEDS: POTASSIUM CHLORIDE 20 MEQ in SOD CHLORIDE 0.9% 100 ML IVPB SCH (08:27)
[2016-10-09] MEDS: METOCLOPRAMIDE 10 MG INJ IV SCH ×2 (08:28→21:20)
[2016-10-09] MEDS: MEROPENEM 1 GM in SOD CHLORIDE 0.9% 100 ML IVPB SCH ×2 (08:28→21:20)
[2016-10-09] MEDS: FAMOTIDINE 20 MG INJ IV SCH ×2 (08:28→21:31)
[2016-10-09] MEDS: LISINOPRIL 5 MG TAB GTB SCH (08:29)
[2016-10-09] MEDS: COLLAGENASE 30 GM TUBE TOP SCH (08:29)
[2016-10-09] MEDS: NYSTATIN 30 GM POWDER BTL TOP SCH ×2 (08:29→21:26)
[2016-10-09] MEDS: FENTAnyl 1,000 MCG in DEXTROSE 5% 80 ML IV SCH ×2 (11:35→21:40)
[2016-10-09] MEDS ORDERED: POTASSIUM CHLORIDE 20 MEQ POWDER FOR ORAL SOLN NGT ONE (12:00)
[2016-10-09] MEDS ORDERED: MAGNESIUM SULFATE 2 GM/50 ML 50 ML IVPB ONE (12:00)
--- NOTE | 2016-10-09 12:00 | CONS ---
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 Would restart Lovenox if no contraindication. Maintain potassium above 4.0 and magnesium above 2.0 Consultation Date/Type/Reason Admit Date/Time Sep 15, 2016 at 16:54 Initial Consult Date 09/29/16 Type of Consultation: cv Referring Provider: JAN ZHANG 24 HR Interval Summary Free Text/Dictation Patient remains sedated and intubated Exam/Review of Systems Vital Signs Vitals Vital Signs Date Time Temp Pulse Resp B/P Pulse Ox O2 Delivery O2 Flow Rate FiO2 10/09/16 09:30 87 17 93/56 98 10/09/16 09:00 Mechanical Ventilator 10/09/16 08:00 30 10/09/16 08:00 100.1 Intake and Output 10/08/16 10/08/16 10/09/16 15:00 23:00 07:00 Intake Total 1302.78 ml 1320.09 ml 1239.770 ml Output Total 925 ml 640 ml 955 ml Balance 377.78 ml 680.09 ml 284.770 ml Exam Sedated and intubated, no apparent distress Head: normocephalic ENMT: intubated Respiratory: other (course breath sounds bilaterally, no wheezing) Cardiovascular: other (S1 and S2 heard), regular rate and rhythm Gastrointestinal: bowel sounds, non-tender, soft Extremities: edema (+1) Results Result Diagram: 10/09/16 0505 10/09/16 0505 Results 24 hrs Laboratory Tests Test 10/09/16 05:05 10/09/16 07:00 10/09/16 11:14 Alanine Aminotransferase (ALT/SGPT) 50 Albumin 2.9 L Albumin/Globulin Ratio 0.74 Alkaline Phosphatase 136 H Anion Gap 12 Aspartate Amino Transf (AST/SGOT) 41 Basophils # 0.0 Basophils % 0.0 Blood Morphology Comment Blood Urea Nitrogen 16 Calcium Level 7.9 L Carbon Dioxide Level 30 Chloride Level 102 Creatinine 0.75 Direct Bilirubin 0.00 Eosinophils # 0.3 Eosinophils % 3.8 Globulin 3.90 H Glucose Level 111 Hematocrit 37.1 L Hemoglobin 12.2 L Indirect Bilirubin 0.4 Lymphocytes # 0.3 L Lymphocytes % 4.0 L Mean Corpuscular Hemoglobin 28.8 L Mean Corpuscular Hemoglobin Concent 32.9 Mean Corpuscular Volume 87.6 Mean Platelet Volume 9.4 Monocytes # 0.8 Monocytes % 9.9 Neutrophils # 6.6 Neutrophils % 82.3 H Nucleated Red Blood Cells # 0.0 Nucleated Red Blood Cells % 0.0 Platelet Count 341 Potassium Level 3.5 Red Blood Count 4.24 L Red Cell Distribution Width 15.1 H Sodium Level 140 Total Bilirubin 0.4 Total Protein 6.8 White Blood Count 8.0 Arterial Blood HCO3 28.4 H Arterial Blood Base Excess 3.6 H Arterial Blood Oxygen Saturation 96.9 Sky Test ACCEPTAB Arterial Blood Gas Puncture Site Right Radial Arterial Blood Carboxyhemoglobin 0.2 Arterial Blood Date Drawn 10/09/2016 7:30:37 AM Arterial Blood Methemoglobin 0.2 Arterial Blood pCO2 (Temp correct) 43.5 Arterial Blood pH (Temp corrected) 7.432 Arterial Blood pO2 (Temp corrected) 90.9 Blood Gas A-a O2 Differential 71.9 H Blood Gas Actual Respiration Rate 18 Blood Gas Low PEEP Setting 5.0 Blood Gas Modality VENT - AC Blood Gas Notified Time 10/09/2016 8:17:27 AM Blood Gas Notified Whom JLD Blood Gas Respiration Rate 16.0 Blood Gas Specimen Source Blood arterial Blood Gas Temperature 37.0 Blood Gas Tidal Volume 500.0 FiO2 30.0 Oxyhemoglobin Percent 96.5 Total Hemoglobin 12.9 Lab Scanned Report REFERENCE LAB Medications Medications Current Medications Lorazepam (Ativan) 0.5 mg Q6H PRN IV ANXIETY Last administered on 10/09/16 04: 35; Admin Dose 0.5 MG; Start 09/15/16 at 18:00 Ondansetron HCl (Zofran Inj) 4 mg Q6H PRN IV NAUSEA AND/OR VOMITING; Start at 18:00 Morphine Sulfate (morphine) 2 mg Q4H PRN IV PAIN LEVEL 7-10 Last administered on 09/22/16 01:30; Admin Dose 2 MG; Start 09/15/16 at 18:00 Haloperidol 5 mg 5 mg Q6H PRN IM AGITATION Last administered on 09/19/16at 10: 40; Admin Dose 5 MG; Start 09/18/16 at 11:30 Propofol (Diprivan) 100 ml @ 3.105 mls/ hr Q12H IV Last administered on 08:27; Admin Dose 31.05 MLS/HR; Start 09/19/16 at 13:30 Famotidine 20 mg 20 mg BID IV Last administered on 10/09/16 08:28; Admin Dose 20 MG; Start 09/19/16 at 21:00 Fentanyl 1000 mcg/ Dextrose 100 ml @ 2.5 mls/hr TITRATE IV Last administered on 10/09/16 11:35; Admin Dose 10 MLS/HR; Start 09/23/16 at 10:00 Dextrose/Sodium Chloride (D5-NS) 1,000 ml @ 50 mls/hr Q20H IV Last administered on 10/08/16 15:55; Admin Dose 50 MLS/HR; Start 09/23/16 at 16:30 Metoclopramide HCl 10 mg 10 mg Q12 IV Last administered on 10/09/16 08:28; Admin Dose 10 MG; Start 09/24/16 at 11:30 Midazolam HCl/ Dextrose (Versed/D5W) 50 ml @ 2 mls/hr TITRATE IV Last administered on 10/08/16 02:04; Admin Dose 7 MLS/HR; Start 09/25/16 at 12:00; Status Future Hold Acetaminophen (Tylenol Liquid) 650 mg Q4H PRN NGT PAIN AND OR ELEVATED TEMP Last administered on 10/09/16 07:04; Admin Dose 650 MG; Start 09/28/16 at 13:30 Enoxaparin Sodium 100 mg 100 mg Q12 SC Last administered on 10/05/16 09:57; Admin Dose 100 MG; Start 10/01/16 at 21:00; Status Future Hold Norepinephrine (Levophed) 250 ml @ 1.875 mls/ hr TITRATE IV ; Start 09/30/16 at 19:00 Lisinopril 2.5 mg 2.5 mg DAILY GTB Last administered on 10/03/16 08:43; Admin Dose 2.5 MG; Start 10/02/16 at 09:00 Potassium Chloride/Sodium Chloride (KCl/NS) 110 ml @ 55 mls/hr DAILY IVPB Last administered on 10/09/16 08:27; Admin Dose 55 MLS/HR; Start 10/08/16 at 10 :00 Furosemide 20 mg 20 mg DAILY@06 IV Last administered on 10/09/16 06:11; Admin Dose 20 MG; Start 10/09/16 at 06:00 Meropenem/Sodium Chloride (Merrem/NS) 100 ml @ 200 mls/hr Q12 IVPB Last administered on 10/09/16 08:28; Admin Dose 200 MLS/HR; Start 10/08/16 at 18:30 Vancomycin HCl (Vanco Iv Per Pharmacy) PER PHARMACY DOSING NOTE XX ; Start 10/08 at 17:30 Collagenase (Santyl) 1 applic DAILY TOP Last administered on 10/09/16 08:29; Admin Dose 1 APPLIC; Start 10/08/16 at 20:00 Nystatin (Nystatin Powder) 1 applic BID TOP Last administered on 10/09/16 08: 29; Admin Dose 1 APPLIC; Start 10/08/16 at 21:00 Collagenase 1 applic 1 applic PRN PRN TOP WOUND CARE; Start 10/08/16 at 17:30 Vancomycin HCl/ Sodium Chloride (Vancocin/NS) 250 ml @ 83.333 mls/ hr Q12H IVPB Last administered on 10/09/16 06:11; Admin Dose 83.333 MLS/HR; Start at 06:00 Nikolay Luna DO Oct 09, 2016 11:59
--- NOTE | 2016-10-09 12:04 | PN ---
DATE: 10/09/2016 PULMONARY FOLLOW UP SUBJECTIVE: Chart reviewed. Events noted. The patient remains on the ventilator. Currently orall y intubated. On low sedation, the patient is quite combative and not following any commands. PHYSICAL EXAMINATION: VITAL SIGNS: Blood pressure 93/56, pulse 87, respirations 17, temperature 100.1. HEENT: Pupils are equal and reactive to light, orally intubated. NECK: Supple, no JVD noted, no cervical adenopathy noted, no carotid bruits heard. LUNGS: A few scattered rhonchi. Decreased breath sounds at the right base. CARDIOVASCULAR: S1, S2 normal. ABDOMEN: Soft, nontender. No organomegaly or masses noted. EXTREMITIES: No clubbing, cyanosis, or edema. NEUROLOGIC: Sedated. LABORATORY: WBC 8, hemoglobin 12.2, hematocrit 37.1, platelets 341. Sodium 140, potassium , c hloride 102, CO2 30, BUN 16, creatinine 0.75, glucose 111. ABG shows pH of 7.43, pCO2 of 44, pO2 of 91. Chest x-ray showed improved aeration of the lung base, residual right basilar atelectasis, chest tub e in place. IMPRESSION: 1. Acute respiratory failure, hypoxemic. 2. Right-sided pneumonia. 3. Complicated pneumonic effusion, status post chest tube drainage. 4. Acute pulmonary emboli. 5. Encephalopathy. 6. Transaminitis. 7. History of polysubstance abuse. RECOMMENDATIONS 1. Continue ventilator support for now. 2. Continue chest tube drainage. 3. Continue antibiotics. 4. Continue Lovenox. 5. Followup labs and x-ray. 6. Will assess for weaning in next 1 to 2 days. Dictated By: YON WAN MD, MA/MARIA ELENA Conf#: [id number] DID#: [id number]
[2016-10-09] MEDS: DEXTROSE 5%-0.9% NACL 1,000 ML IV SCH ×2 (12:30→17:10)
--- NOTE | 2016-10-09 13:46 | PN ---
Date/Time of Note Date/Time of Note DATE: 10/09/16 TIME: 13:46 Assessment/Plan VTE Prophylaxis VTE Prophylaxis Intervention: other Lines/Catheters IV Catheter Type (from Nrs): Central Line Central line still needed: Yes Urinary Cath still in place: Yes Reason Cath still needed: skin wounds contaminated by urine Assessment/Plan Chief Complaint/Hosp Course 1) pneumonia - intravenous antibiotics 2) pulmonary embolus - anticoagulation - oxygen 3) agitation - BZDs prn 4) respiratory failure - on ventilator now - appreciate pulmonary assistance 5) pulmonary effusion - s/p thoracentesis Problems: Subjective 24 Hr Interval Summary Free Text/Dictation Patient is sedated and intubated Exam/Review of Systems Vital Signs Vitals Vital Signs Date Time Temp Pulse Resp B/P Pulse Ox O2 Delivery O2 Flow Rate FiO2 10/09/16 11:30 85 16 100 30 10/09/16 09:30 93/56 10/09/16 09:00 Mechanical Ventilator 10/09/16 08:00 100.1 Intake and Output 10/08/16 10/08/16 10/09/16 15:00 23:00 07:00 Intake Total 1302.78 ml 1320.09 ml 1239.770 ml Output Total 925 ml 640 ml 955 ml Balance 377.78 ml 680.09 ml 284.770 ml Exam Constitutional: well developed Head: atraumatic, normocephalic Respiratory: diminished breath sounds Cardiovascular: regular rate and rhythm Gastrointestinal: non-tender, soft Extremities: normal pulses Results Result Diagram: 10/09/16 0505 10/09/16 0505 Results 24 hrs Laboratory Tests Test 10/09/16 05:05 10/09/16 07:00 10/09/16 11:14 Alanine Aminotransferase (ALT/SGPT) 50 Albumin 2.9 L Albumin/Globulin Ratio 0.74 Alkaline Phosphatase 136 H Anion Gap 12 Aspartate Amino Transf (AST/SGOT) 41 Basophils # 0.0 Basophils % 0.0 Blood Morphology Comment Blood Urea Nitrogen 16 Calcium Level 7.9 L Carbon Dioxide Level 30 Chloride Level 102 Creatinine 0.75 Direct Bilirubin 0.00 Eosinophils # 0.3 Eosinophils % 3.8 Globulin 3.90 H Glucose Level 111 Hematocrit 37.1 L Hemoglobin 12.2 L Indirect Bilirubin 0.4 Lymphocytes # 0.3 L Lymphocytes % 4.0 L Mean Corpuscular Hemoglobin 28.8 L Mean Corpuscular Hemoglobin Concent 32.9 Mean Corpuscular Volume 87.6 Mean Platelet Volume 9.4 Monocytes # 0.8 Monocytes % 9.9 Neutrophils # 6.6 Neutrophils % 82.3 H Nucleated Red Blood Cells # 0.0 Nucleated Red Blood Cells % 0.0 Platelet Count 341 Potassium Level 3.5 Red Blood Count 4.24 L Red Cell Distribution Width 15.1 H Sodium Level 140 Total Bilirubin 0.4 Total Protein 6.8 White Blood Count 8.0 Arterial Blood HCO3 28.4 H Arterial Blood Base Excess 3.6 H Arterial Blood Oxygen Saturation 96.9 Sky Test ACCEPTAB Arterial Blood Gas Puncture Site Right Radial Arterial Blood Carboxyhemoglobin 0.2 Arterial Blood Date Drawn 10/09/2016 7:30:37 AM Arterial Blood Methemoglobin 0.2 Arterial Blood pCO2 (Temp correct) 43.5 Arterial Blood pH (Temp corrected) 7.432 Arterial Blood pO2 (Temp corrected) 90.9 Blood Gas A-a O2 Differential 71.9 H Blood Gas Actual Respiration Rate 18 Blood Gas Low PEEP Setting 5.0 Blood Gas Modality VENT - AC Blood Gas Notified Time 10/09/2016 8:17:27 AM Blood Gas Notified Whom JLD Blood Gas Respiration Rate 16.0 Blood Gas Specimen Source Blood arterial Blood Gas Temperature 37.0 Blood Gas Tidal Volume 500.0 FiO2 30.0 Oxyhemoglobin Percent 96.5 Total Hemoglobin 12.9 Lab Scanned Report REFERENCE LAB Medications Medications Current Medications Lorazepam (Ativan) 0.5 mg Q6H PRN IV ANXIETY Last administered on 10/09/16 04: 35; Admin Dose 0.5 MG; Start 09/15/16 at 18:00 Ondansetron HCl (Zofran Inj) 4 mg Q6H PRN IV NAUSEA AND/OR VOMITING; Start at 18:00 Morphine Sulfate (morphine) 2 mg Q4H PRN IV PAIN LEVEL 7-10 Last administered on 09/22/16 01:30; Admin Dose 2 MG; Start 09/15/16 at 18:00 Haloperidol 5 mg 5 mg Q6H PRN IM AGITATION Last administered on 09/19/16at 10: 40; Admin Dose 5 MG; Start 09/18/16 at 11:30 Propofol (Diprivan) 100 ml @ 3.105 mls/ hr Q12H IV Last administered on 12:25; Admin Dose 31.05 MLS/HR; Start 09/19/16 at 13:30 Famotidine 20 mg 20 mg BID IV Last administered on 10/09/16 08:28; Admin Dose 20 MG; Start 09/19/16 at 21:00 Fentanyl 1000 mcg/ Dextrose 100 ml @ 2.5 mls/hr TITRATE IV Last administered on 10/09/16 11:35; Admin Dose 10 MLS/HR; Start 09/23/16 at 10:00 Dextrose/Sodium Chloride (D5-NS) 1,000 ml @ 50 mls/hr Q20H IV Last administered on 10/08/16 15:55; Admin Dose 50 MLS/HR; Start 09/23/16 at 16:30 Metoclopramide HCl 10 mg 10 mg Q12 IV Last administered on 10/09/16 08:28; Admin Dose 10 MG; Start 09/24/16 at 11:30 Midazolam HCl/ Dextrose (Versed/D5W) 50 ml @ 2 mls/hr TITRATE IV Last administered on 10/08/16 02:04; Admin Dose 7 MLS/HR; Start 09/25/16 at 12:00; Status Future Hold Acetaminophen (Tylenol Liquid) 650 mg Q4H PRN NGT PAIN AND OR ELEVATED TEMP Last administered on 10/09/16 07:04; Admin Dose 650 MG; Start 09/28/16 at 13:30 Enoxaparin Sodium 100 mg 100 mg Q12 SC Last administered on 10/05/16 09:57; Admin Dose 100 MG; Start 10/01/16 at 21:00; Status Future hold Norepinephrine (Levophed) 250 ml @ 1.875 mls/ hr TITRATE IV ; Start 09/30/16 at 19:00 Lisinopril 2.5 mg 2.5 mg DAILY GTB Last administered on 10/03/16 08:43; Admin Dose 2.5 MG; Start 10/02/16 at 09:00 Potassium Chloride/Sodium Chloride (KCl/NS) 110 ml @ 55 mls/hr DAILY IVPB Last administered on 10/09/16 08:27; Admin Dose 55 MLS/HR; Start 10/08/16 at 10 :00 Furosemide 20 mg 20 mg DAILY@06 IV Last administered on 10/09/16 06:11; Admin Dose 20 MG; Start 10/09/16 at 06:00 Meropenem/Sodium Chloride (Merrem/NS) 100 ml @ 200 mls/hr Q12 IVPB Last administered on 10/09/16 08:28; Admin Dose 200 MLS/HR; Start 10/08/16 at 18:30 Vancomycin HCl (Vanco Iv Per Pharmacy) PER PHARMACY DOSING NOTE XX ; Start 10/08 at 17:30 Collagenase (Santyl) 1 applic DAILY TOP Last administered on 10/09/16 08:29; Admin Dose 1 APPLIC; Start 10/08/16 at 20:00 Nystatin (Nystatin Powder) 1 applic BID TOP Last administered on 10/09/16 08: 29; Admin Dose 1 APPLIC; Start 10/08/16 at 21:00 Collagenase 1 applic 1 applic PRN PRN TOP WOUND CARE; Start 10/08/16 at 17:30 Vancomycin HCl 1.5 gm/Sodium Chloride 250 ml @ 83.333 mls/ hr Q12H IVPB Last administered on 10/09/16 06:11; Admin Dose 83.333 MLS/HR; Start 10/09/16 at 06: 00 Magnesium Sulfate (Magnesium Sulfate 2 Gm/50 ml) 50 ml @ 25 mls/hr ONCE ONCE IVPB Last administered on 10/09/16 12:25; Admin Dose 25 MLS/HR; Start at 12:00; Stop 10/09/16 at 13:59 Miscellaneous Information (*Rx Drug Level Order Reminder*) 1 ONCE ONCE XX ; Start 10/10/16 at 05:00; Stop 10/10/16 at 05:01 DREW MOLINA Oct 09, 2016 13:46
--- NOTE | 2016-10-09 15:15 | CONS ---
Date/Time of Note Date/Time of Note DATE: 10/09/16 TIME: 15:08 Assessment/Plan Assessment/Plan Chief Complaint/Hosp Course - Sepsis d/t PNA with parapneumonic effusion. - PNA with parapneumonic effusion. Could be started as CAP, other considerations include aspiration PNA - recurrent right pleural effusion. s/p diagnostic thoracentesis on 09/22/16. It showed glu=74 pro <2, BOD=7966. No malignancy on cytology. s/p repeat thoracentesis 10/01/16. Again, no malignancy on cytology. Right chest tube placed 10/07/16. - recurrent fever, ? 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 Acute hepatitis panel negative - rash, likely drug rash possibly d/t pip/tazo - mild leukopenia - resolved - s/p hyperkalemia and hypokalemia - s/p hyponatremia and hypernatremia - s/p lactic acidosis - s/p Vanco (09/19/16-10/04/16), azithromycin (10/02/16-10/06/16), pip/tazo (-10/08/16), Tamiflu (10/02/16-10/08/16) - Negative rapid influenza screen, PPD, legionella antigen, mycoplasma pneumoniae, chlamydia pneumoniae serology, and respiratory viral panel; AFB smear negative (09/29, 09/30 & 10/01) Recommendations: - continue vanco and meropenem (10/08/16-) - f/u repeat procalcitonin (pending) and respiratory/endotracheal culture ( pending) - f/u blood and urine cultures (negative to date) - f/u pleural fluid for gram stain, culture, AFB, fungal culture (pending) - monitor rash (improving) - management d/w [employer] Stephanie - Above d/w Dr. Osullivan - critical care time spent: 42 min Problems: Consultation Date/Type/Reason Admit Date/Time Sep 15, 2016 at 16:54 Initial Consult Date 09/29/16 Type of Consultation: Infectious Disease Referring Provider: JAN ZHANG 24 HR Interval Summary Free Text/Dictation Tmax 102.3. Pt remains orally intubated and sedated on max Fentanyl and propofol with weaning trial on hold per RBENDA Dejesus. Generalized rash is improving. ROS limited d/t sedation. Exam/Review of Systems Vital Signs Vitals Vital Signs Date Time Temp Pulse Resp B/P Pulse Ox O2 Delivery O2 Flow Rate FiO2 10/09/16 13:30 90 16 84/45 100 10/09/16 13:00 Mechanical Ventilator 10/09/16 12:00 99.9 10/09/16 11:30 30 Intake and Output 10/08/16 10/08/16 10/09/16 15:00 23:00 07:00 Intake Total 1302.78 ml 1320.09 ml 1239.770 ml Output Total 925 ml 640 ml 955 ml Balance 377.78 ml 680.09 ml 284.770 ml Exam Constitutional: other (orally intubated and sedated on Fentanyl and propofol), well developed Head: atraumatic, normocephalic ENMT: intubated Neck: supple, No masses Respiratory: diminished breath sounds, other (left subclavian central line c/d/ i). Right chest tube intact. Cardiovascular: nl pulses, regular rate and rhythm Gastrointestinal: bowel sounds, other (NGT with TF intact), soft Genitourinary - Male: nl penis, nl scrotum, other (Tang cath intact with clear dark yellow urine) Musculoskeletal: swelling Extremities: edema, normal pulses, No clubbing, No cyanosis Neurological: other (sedated). BUE in wrist restraints Skin: nl turgor, rash (diffuse petechial rash to entire body- slightly improved compared to yesterday) other (Multiple tattoos including 2 flags on the left bicep area and the name Missy on ISAIAH; stage 3 sacral decub - see photo in chart and nursing documentation for details) Results Result Diagram: 10/09/16 0505 10/09/16 0505 Results 24 hrs Laboratory Tests Test 10/09/16 05:05 10/09/16 07:00 10/09/16 11:14 Alanine Aminotransferase (ALT/SGPT) 50 Albumin 2.9 L Albumin/Globulin Ratio 0.74 Alkaline Phosphatase 136 H Anion Gap 12 Aspartate Amino Transf (AST/SGOT) 41 Basophils # 0.0 Basophils % 0.0 Blood Morphology Comment Blood Urea Nitrogen 16 Calcium Level 7.9 L Carbon Dioxide Level 30 Chloride Level 102 Creatinine 0.75 Direct Bilirubin 0.00 Eosinophils # 0.3 Eosinophils % 3.8 Globulin 3.90 H Glucose Level 111 Hematocrit 37.1 L Hemoglobin 12.2 L Indirect Bilirubin 0.4 Lymphocytes # 0.3 L Lymphocytes % 4.0 L Mean Corpuscular Hemoglobin 28.8 L Mean Corpuscular Hemoglobin Concent 32.9 Mean Corpuscular Volume 87.6 Mean Platelet Volume 9.4 Monocytes # 0.8 Monocytes % 9.9 Neutrophils # 6.6 Neutrophils % 82.3 H Nucleated Red Blood Cells # 0.0 Nucleated Red Blood Cells % 0.0 Platelet Count 341 Potassium Level 3.5 Red Blood Count 4.24 L Red Cell Distribution Width 15.1 H Sodium Level 140 Total Bilirubin 0.4 Total Protein 6.8 White Blood Count 8.0 Arterial Blood HCO3 28.4 H Arterial Blood Base Excess 3.6 H Arterial Blood Oxygen Saturation 96.9 Sky Test ACCEPTAB Arterial Blood Gas Puncture Site Right Radial Arterial Blood Carboxyhemoglobin 0.2 Arterial Blood Date Drawn 10/09/2016 7:30:37 AM Arterial Blood Methemoglobin 0.2 Arterial Blood pCO2 (Temp correct) 43.5 Arterial Blood pH (Temp corrected) 7.432 Arterial Blood pO2 (Temp corrected) 90.9 Blood Gas A-a O2 Differential 71.9 H Blood Gas Actual Respiration Rate 18 Blood Gas Low PEEP Setting 5.0 Blood Gas Modality VENT - AC Blood Gas Notified Time 10/09/2016 8:17:27 AM Blood Gas Notified Whom JLD Blood Gas Respiration Rate 16.0 Blood Gas Specimen Source Blood arterial Blood Gas Temperature 37.0 Blood Gas Tidal Volume 500.0 FiO2 30.0 Oxyhemoglobin Percent 96.5 Total Hemoglobin 12.9 Lab Scanned Report REFERENCE LAB Medications Medications Current Medications Lorazepam (Ativan) 0.5 mg Q6H PRN IV ANXIETY Last administered on 10/09/16t 04: 35; Admin Dose 0.5 MG; Start 09/15/16 at 18:00 Ondansetron HCl (Zofran Inj) 4 mg Q6H PRN IV NAUSEA AND/OR VOMITING; Start 12/ 27/16 at 18:00 Morphine Sulfate (morphine) 2 mg Q4H PRN IV PAIN LEVEL 7-10 Last administered on 09/22/16 01:30; Admin Dose 2 MG; Start 09/15/16 at 18:00 Haloperidol 5 mg 5 mg Q6H PRN IM AGITATION Last administered on 09/19/16at 10: 40; Admin Dose 5 MG; Start 09/18/16 at 11:30 Propofol (Diprivan) 100 ml @ 3.105 mls/ hr Q12H IV Last administered on 12:25; Admin Dose 31.05 MLS/HR; Start 09/19/16 at 13:30 Famotidine 20 mg 20 mg BID IV Last administered on 10/09/16 08:28; Admin Dose 20 MG; Start 09/19/16 at 21:00 Fentanyl 1000 mcg/ Dextrose 100 ml @ 2.5 mls/hr TITRATE IV Last administered on 10/09/16 11:35; Admin Dose 10 MLS/HR; Start 09/23/16 at 10:00 Dextrose/Sodium Chloride (D5-NS) 1,000 ml @ 50 mls/hr Q20H IV Last administered on 10/08/16 15:55; Admin Dose 50 MLS/HR; Start 09/23/16 at 16:30 Metoclopramide HCl 10 mg 10 mg Q12 IV Last administered on 10/09/16 08:28; Admin Dose 10 MG; Start 09/24/16 at 11:30 Midazolam HCl/ Dextrose (Versed/D5W) 50 ml @ 2 mls/hr TITRATE IV Last administered on 10/08/16 02:04; Admin Dose 7 MLS/HR; Start 09/25/16 at 12:00; Status Future Hold Acetaminophen (Tylenol Liquid) 650 mg Q4H PRN NGT PAIN AND OR ELEVATED TEMP Last administered on 10/09/16 07:04; Admin Dose 650 MG; Start 09/28/16 at 13:30 Enoxaparin Sodium 100 mg 100 mg Q12 SC Last administered on 10/05/16 09:57; Admin Dose 100 MG; Start 10/01/16 at 21:00; Status Future hold Norepinephrine (Levophed) 250 ml @ 1.875 mls/ hr TITRATE IV ; Start 09/30/16 at 19:00 Lisinopril 2.5 mg 2.5 mg DAILY GTB Last administered on 10/03/16 08:43; Admin Dose 2.5 MG; Start 10/02/16 at 09:00 Potassium Chloride/Sodium Chloride (KCl/NS) 110 ml @ 55 mls/hr DAILY IVPB Last administered on 10/09/16 08:27; Admin Dose 55 MLS/HR; Start 10/08/16 at 10 :00 Furosemide 20 mg 20 mg DAILY@06 IV Last administered on 10/09/16 06:11; Admin Dose 20 MG; Start 10/09/16 at 06:00 Meropenem/Sodium Chloride (Merrem/NS) 100 ml @ 200 mls/hr Q12 IVPB Last administered on 10/09/16 08:28; Admin Dose 200 MLS/HR; Start 10/08/16 at 18:30 Vancomycin HCl (Vanco Iv Per Pharmacy) PER PHARMACY DOSING NOTE XX ; Start 10/08 at 17:30 Collagenase (Santyl) 1 applic DAILY TOP Last administered on 10/09/16 08:29; Admin Dose 1 APPLIC; Start 10/08/16 at 20:00 Nystatin (Nystatin Powder) 1 applic BID TOP Last administered on 10/09/16 08: 29; Admin Dose 1 APPLIC; Start 10/08/16 at 21:00 Collagenase 1 applic 1 applic PRN PRN TOP WOUND CARE; Start 10/08/16 at 17:30 Vancomycin HCl/ Sodium Chloride (Vancocin/NS) 250 ml @ 83.333 mls/ hr Q12H IVPB Last administered on 10/09/16 06:11; Admin Dose 83.333 MLS/HR; Start at 06:00 Miscellaneous Information (*Rx Drug Level Order Reminder*) 1 ONCE ONCE XX ; Start 10/10/16 at 05:00; Stop 10/10/16 at 05:01 Procedures Procedures CXR 10/09/16: 1. Improved aeration of the bilateral lung bases with mild residual right basilar atelectasis/infiltrate, and resolution of left basilar pleural / parenchymal disease. 2. Otherwise stable radiographic appearance of chest compared to 10/07/2016. LAURA OJEDA NP Oct 09, 2016 15:15
[2016-10-09] MEDS: NORepinephrine 8MG/250 ML (PMX 250 ML IV SCH (16:36)
--- NOTE | 2016-10-09 18:27 | PN ---
Date/Time of Note Date/Time of Note DATE: 10/09/16 TIME: 18:26 Assessment/Plan Lines/Catheters IV Catheter Type (from Nrsg): Central Line Tang in Place (from Nrsg): Yes Assessment/Plan Chief Complaint/Hosp Course IMPRESSION 1. Pulmonary embolism. 2. Pneumonia. 3 Pleural effusion RECOMMENDATIONS: SP CT placement will continue CT sxn Problems: Subjective 24 Hr Interval Summary Constitutional: improved Pain Control: mild Exam/Review of Systems Vital Signs Vitals Vital Signs Date Time Temp Pulse Resp B/P Pulse Ox O2 Delivery O2 Flow Rate FiO2 10/09/16 17:30 85 18 100 30 10/09/16 16:00 99.9 84/55 Mechanical Ventilator Intake and Output 10/08/16 10/08/16 10/09/16 15:00 23:00 07:00 Intake Total 1302.78 ml 1320.09 ml 1239.770 ml Output Total 925 ml 640 ml 955 ml Balance 377.78 ml 680.09 ml 284.770 ml Exam ENMT: mucosa pink and moist, nl external ears & nose, nl lips & teeth, nl nasal mucosa & septum Neck: non-tender, supple Respiratory: clear to auscultation, normal air movement Cardiovascular: nl pulses, regular rate and rhythm Gastrointestinal: nl liver, spleen, non-tender, soft Results Result Diagram: 10/09/16 0505 10/09/16 0505 YOUNG HAY MD Oct 09, 2016 18:27
[2016-10-09] MEDS: ENOXAPARIN 100 MG/ML SYG SC SCH (21:39)
[2016-10-10] VITALS (91 sets, daily range): BP systolic 74–131; BP diastolic 47–90; PULSE 68–133; RESP 9–23
[2016-10-10] MEDS: PROPOFOL 100 ML IV SCH ×7 (00:22→20:21)
[2016-10-10] MEDS: ACETAMINOPHEN 650MG/20.3ML CUP NGT PRN (03:47)
[2016-10-10] MEDS: VANCOMYCIN 1.5 GM in SOD CHLORIDE 0.9% 250 ML IVPB SCH (05:51)
[2016-10-10 06:00] LABS: BASOPHILS % 0.2 % (0.0-2.0); EOSINOPHILS # 1.1 10^3/ul (0.0-0.5); EOSINOPHILS % 17.1 % (0.0-7.0); HEMATOCRIT 33.9 % (42.0-52.0); HEMOGLOBIN 11.3 g/dl (14.0-18.0); LYMPHOCYTES # 0.8 10^3/ul (0.8-2.9); LYMPHOCYTES % 13.3 % (15.0-51.0); MEAN CORPUSCULAR HEMOGLOBIN 29.1 pg (29.0-33.0); MEAN CORPUSCULAR HGB CONC 33.2 g/dl (32.0-37.0); MEAN CORPUSCULAR VOLUME 87.6 fl (82.0-101.0); MEAN PLATELET VOLUME 10.1 fl (7.4-10.4); MONOCYTE # 0.8 10^3/ul (0.3-0.9); MONOCYTES % 12.7 % (0.0-11.0); NEUTROPHIL # 3.5 10^3/ul (1.6-7.5); NEUTROPHILS % 56.7 % (39.0-77.0); PLATELET COUNT 322 10^3/UL (140-440); RED BLOOD COUNT 3.86 10^6/ul (4.70-6.10); RED CELL DISTRIBUTION WIDTH 15.3 % (11.5-14.5); UNCORRECTED WBC 6.2 10^3/ul (4.8-10.8); WHITE BLOOD COUNT 6.2 10^3/ul (4.8-10.8)
[2016-10-10 06:18] LABS: CONDITION 1; LH ANALYZER COMMENTS 1; SUSPECT 1
[2016-10-10 06:22] LABS: POTASSIUM 3.6 mmol/L (3.5-5.1)
[2016-10-10 06:24] LABS: CREATININE 0.72 mg/dl (0.61-1.24)
[2016-10-10 06:25] LABS: CALCIUM 7.6 mg/dl (8.4-10.2)
[2016-10-10] MEDS: FUROSEMIDE 20 MG INJ IV SCH (06:33)
[2016-10-10] MEDS: LORAZEPAM 2 MG INJ IV PRN ×2 (07:25→16:14)
[2016-10-10] MEDS: FENTAnyl 1,000 MCG in DEXTROSE 5% 80 ML IV SCH ×2 (07:36→15:14)
[2016-10-10] MEDS: LISINOPRIL 5 MG TAB GTB SCH (08:16)
[2016-10-10] MEDS: METOCLOPRAMIDE 10 MG INJ IV SCH ×2 (08:22→20:20)
[2016-10-10] MEDS: FAMOTIDINE 20 MG INJ IV SCH ×2 (08:22→20:20)
[2016-10-10] MEDS: POTASSIUM CHLORIDE 20 MEQ in SOD CHLORIDE 0.9% 100 ML IVPB SCH (08:23)
[2016-10-10] MEDS: COLLAGENASE 30 GM TUBE TOP SCH (08:23)
[2016-10-10] MEDS: NYSTATIN 30 GM POWDER BTL TOP SCH ×2 (08:23→20:20)
[2016-10-10] MEDS: ENOXAPARIN 100 MG/ML SYG SC SCH ×2 (08:26→20:36)
[2016-10-10] MEDS: MEROPENEM 1 GM in SOD CHLORIDE 0.9% 100 ML IVPB SCH ×2 (09:32→20:22)
--- NOTE | 2016-10-10 09:56 | PN ---
Date/Time of Note Date/Time of Note DATE: 10/10/16 TIME: 09:55 Assessment/Plan VTE Prophylaxis VTE Prophylaxis Intervention: LMWH Lines/Catheters IV Catheter Type (from Nrs): Central Line Central line still needed: Yes Urinary Cath still in place: Yes Reason Cath still needed: skin wounds contaminated by urine Assessment/Plan Chief Complaint/Hosp Course 1) pneumonia - intravenous antibiotics 2) pulmonary embolus - anticoagulation - oxygen 3) agitation - BZDs prn 4) respiratory failure - on ventilator now - appreciate pulmonary assistance 5) pulmonary effusion - s/p thoracentesis Problems: Subjective 24 Hr Interval Summary Free Text/Dictation Patient remain sedated and intubated Exam/Review of Systems Vital Signs Vitals Vital Signs Date Time Temp Pulse Resp B/P Pulse Ox O2 Delivery O2 Flow Rate FiO2 10/10/16 08:00 30 10/10/16 07:30 99.5 101 20 131/90 100 Mechanical Ventilator Intake and Output 10/09/16 10/09/16 10/10/16 15:00 23:00 07:00 Intake Total 1435 ml 1305.20 ml 1167.0 ml Output Total 880 ml 355 ml 420 ml Balance 555 ml 950.20 ml 747.0 ml Exam Head: atraumatic, normocephalic Neck: supple Respiratory: diminished breath sounds Cardiovascular: regular rate and rhythm Gastrointestinal: non-tender, soft Extremities: normal pulses Results Result Diagram: 10/10/16 0515 10/10/16 0515 Results 24 hrs Laboratory Tests Test 10/09/16 11:14 10/10/16 05:15 Lab Scanned Report REFERENCE LAB Anion Gap 11 Basophils # 0.0 Basophils % 0.2 Blood Morphology Comment Blood Urea Nitrogen 17 Calcium Level 7.6 L Carbon Dioxide Level 30 Chloride Level 103 Creatinine 0.72 Eosinophils # 1.1 H Eosinophils % 17.1 H Glucose Level 100 Hematocrit 33.9 L Hemoglobin 11.3 L Lymphocytes # 0.8 Lymphocytes % 13.3 L Mean Corpuscular Hemoglobin 29.1 Mean Corpuscular Hemoglobin Concent 33.2 Mean Corpuscular Volume 87.6 Mean Platelet Volume 10.1 Monocytes # 0.8 Monocytes % 12.7 H Neutrophils # 3.5 Neutrophils % 56.7 Nucleated Red Blood Cells # 0.0 Nucleated Red Blood Cells % 0.0 Platelet Count 322 Potassium Level 3.6 Red Blood Count 3.86 L Red Cell Distribution Width 15.3 H Sodium Level 140 Vancomycin Level Trough 12.6 White Blood Count 6.2 # Medications Medications Current Medications Lorazepam (Ativan) 0.5 mg Q6H PRN IV ANXIETY Last administered on 10/10/16 07: 25; Admin Dose 0.5 MG; Start 09/15/16 at 18:00 Ondansetron HCl (Zofran Inj) 4 mg Q6H PRN IV NAUSEA AND/OR VOMITING; Start at 18:00 Morphine Sulfate (morphine) 2 mg Q4H PRN IV PAIN LEVEL 7-10 Last administered on 09/22/16 01:30; Admin Dose 2 MG; Start 09/15/16 at 18:00 Haloperidol 5 mg 5 mg Q6H PRN IM AGITATION Last administered on 09/19/16at 10: 40; Admin Dose 5 MG; Start 09/18/16 at 11:30 Propofol (Diprivan) 100 ml @ 2.478 mls/ hr Q12H IV Last administered on 09:33; Admin Dose 24.78 MLS/HR; Start 09/19/16 at 13:30 Famotidine 20 mg 20 mg BID IV Last administered on 10/10/16 08:22; Admin Dose 20 MG; Start 09/19/16 at 21:00 Fentanyl 1000 mcg/ Dextrose 100 ml @ 2.5 mls/hr TITRATE IV Last administered on 10/10/16 07:36; Admin Dose 10 MLS/HR; Start 09/23/16 at 10:00 Dextrose/Sodium Chloride (D5-NS) 1,000 ml @ 50 mls/hr Q20H IV Last administered on 10/09/16 17:10; Admin Dose 50 MLS/HR; Start 09/23/16 at 16:30 Metoclopramide HCl 10 mg 10 mg Q12 IV Last administered on 10/10/16 08:22; Admin Dose 10 MG; Start 09/24/16 at 11:30 Midazolam HCl/ Dextrose (Versed/D5W) 50 ml @ 2 mls/hr TITRATE IV Last administered on 10/08/16 02:04; Admin Dose 7 MLS/HR; Start 09/25/16 at 12:00; Status Future Hold Acetaminophen (Tylenol Liquid) 650 mg Q4H PRN NGT PAIN AND OR ELEVATED TEMP Last administered on 10/10/16 03:47; Admin Dose 650 MG; Start 09/28/16 at 13:30 Enoxaparin Sodium 100 mg 100 mg Q12 SC Last administered on 10/10/16 08:26; Admin Dose 100 MG; Start 10/01/16 at 21:00; Status Future hold Norepinephrine (Levophed) 250 ml @ 1.875 mls/ hr TITRATE IV Last administered on 10/09/16 16:36; Admin Dose 1.875 MLS/HR; Start 09/30/16 at 19:00 Lisinopril 2.5 mg 2.5 mg DAILY GTB Last administered on 10/03/16 08:43; Admin Dose 2.5 MG; Start 10/02/16 at 09:00 Potassium Chloride/Sodium Chloride (KCl/NS) 110 ml @ 55 mls/hr DAILY IVPB Last administered on 10/10/16 08:23; Admin Dose 55 MLS/HR; Start 10/08/16 at 10 :00 Furosemide 20 mg 20 mg DAILY@06 IV Last administered on 10/10/16 06:33; Admin Dose 20 MG; Start 10/09/16 at 06:00 Meropenem/Sodium Chloride (Merrem/NS) 100 ml @ 200 mls/hr Q12 IVPB Last administered on 10/10/16 09:32; Admin Dose 200 MLS/HR; Start 10/08/16 at 18:30 Vancomycin HCl (Vanco Iv Per Pharmacy) PER PHARMACY DOSING NOTE XX ; Start 10/08 at 17:30 Collagenase (Santyl) 1 applic DAILY TOP Last administered on 10/09/16 08:29; Admin Dose 1 APPLIC; Start 10/08/16 at 20:00 Nystatin (Nystatin Powder) 1 applic BID TOP Last administered on 10/10/16 08: 23; Admin Dose 1 APPLIC; Start 10/08/16 at 21:00 Collagenase 1 applic 1 applic PRN PRN TOP WOUND CARE Last administered on 07:54; Admin Dose 1 APPLIC; Start 10/08/16 at 17:30 Vancomycin HCl/ Sodium Chloride (Vancocin/NS) 250 ml @ 83.333 mls/ hr Q12H IVPB Last administered on 10/10/16 05:51; Admin Dose 83.333 MLS/HR; Start at 06:00 DREW MOLINA Oct 10, 2016 09:56
--- NOTE | 2016-10-10 11:03 | RADRPT ---
PROCEDURE: XR Chest. CLINICAL INDICATION: Respiratory failure. TECHNIQUE: Frontal chest x-ray was obtained. COMPARISON: Chest x-ray October 09 FINDINGS: Again noted is the endotracheal tube with the tip 4 cm above the ida, a right chest tube and an N G tube. There is a left subclavian central venous catheter. There is cardiomegaly. Mediastinum is not widened. No hilar masses seen. There is minimal atelect asis at the right lung base. No alveolar infiltrate or mass is seen. There is no effusion or pneum othorax. IMPRESSION: Cardiomegaly. No pneumonia or failure. Right basilar atelectasis. .Be Grajeda MD, MD Date Time Electronically viewed and signed by .Be Grajeda MD, on 10/10/2016 11:03 .A/
--- NOTE | 2016-10-10 11:17 | CONS ---
Date/Time of Note Date/Time of Note DATE: 10/10/16 TIME: 11:04 Assessment/Plan Assessment/Plan Chief Complaint/Hosp Course - Sepsis d/t PNA with parapneumonic effusion. - PNA with parapneumonic effusion. Could be started as CAP, other considerations include aspiration PNA - recurrent right pleural effusion. s/p diagnostic thoracentesis on 09/22/16. It showed glu=74 pro <2, JTF=[id number]. No malignancy on cytology. s/p repeat thoracentesis 10/01/16. Again, no malignancy on cytology. Right chest tube placed 10/07/16. - recurrent fever, ? 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 Acute hepatitis panel negative - rash, likely drug rash possibly d/t pip/tazo - mild leukopenia - resolved - s/p hyperkalemia and hypokalemia - s/p hyponatremia and hypernatremia - s/p lactic acidosis - s/p Vanco (09/19/16-10/04/16), azithromycin (10/02/16-10/06/16), pip/tazo (-10/08/16), Tamiflu (10/02/16-10/08/16) - Negative rapid influenza screen, PPD, legionella antigen, mycoplasma pneumoniae, chlamydia pneumoniae serology, and respiratory viral panel; AFB smear negative (09/29, 09/30 & 10/01) Recommendations: - continue meropenem (10/08/16-) - f/u repeat procalcitonin (pending) and respiratory/endotracheal culture ( pending) - f/u blood and urine cultures (negative to date) - f/u pleural fluid for gram stain, culture, AFB, fungal culture (pending) - monitor rash (improving) Problems: Consultation Date/Type/Reason Admit Date/Time Sep 15, 2016 at 16:54 Initial Consult Date 09/29/16 Type of Consultation: Infectious Disease Referring Provider: JAN ZHANG 24 HR Interval Summary Free Text/Dictation d/w nursing. no major changes Exam/Review of Systems Vital Signs Vitals Vital Signs Date Time Temp Pulse Resp B/P Pulse Ox O2 Delivery O2 Flow Rate FiO2 10/10/16 10:15 75 16 85/52 100 Mechanical Ventilator 10/10/16 09:50 30 10/10/16 07:30 99.5 Intake and Output 10/09/16 10/09/16 10/10/16 15:00 23:00 07:00 Intake Total 1435 ml 1305.20 ml 1167.0 ml Output Total 880 ml 355 ml 420 ml Balance 555 ml 950.20 ml 747.0 ml Exam Constitutional: alert, oriented, well developed Head: atraumatic, normocephalic ENMT: nl external ears & nose, nl lips & teeth, nl nasal mucosa & septum Respiratory: clear to auscultation, normal air movement Cardiovascular: nl pulses, regular rate and rhythm Gastrointestinal: nl liver, spleen, non-tender, soft Results Result Diagram: 10/10/1615 10/10/16 0515 Results 24 hrs Laboratory Tests Test 10/09/16 11:14 10/10/16 05:15 Lab Scanned Report REFERENCE LAB Anion Gap 11 Basophils # 0.0 Basophils % 0.2 Blood Morphology Comment Blood Urea Nitrogen 17 Calcium Level 7.6 L Carbon Dioxide Level 30 Chloride Level 103 Creatinine 0.72 Eosinophils # 1.1 H Eosinophils % 17.1 H Glucose Level 100 Hematocrit 33.9 L Hemoglobin 11.3 L Lymphocytes # 0.8 Lymphocytes % 13.3 L Mean Corpuscular Hemoglobin 29.1 Mean Corpuscular Hemoglobin Concent 33.2 Mean Corpuscular Volume 87.6 Mean Platelet Volume 10.1 Monocytes # 0.8 Monocytes % 12.7 H Neutrophils # 3.5 Neutrophils % 56.7 Nucleated Red Blood Cells # 0.0 Nucleated Red Blood Cells % 0.0 Platelet Count 322 Potassium Level 3.6 Red Blood Count 3.86 L Red Cell Distribution Width 15.3 H Sodium Level 140 Vancomycin Level Trough 12.6 White Blood Count 6.2 # Medications Medications Current Medications Lorazepam (Ativan) 0.5 mg Q6H PRN IV ANXIETY Last administered on 10/10/16t 07: 25; Admin Dose 0.5 MG; Start 09/15/16 at 18:00 Ondansetron HCl (Zofran Inj) 4 mg Q6H PRN IV NAUSEA AND/OR VOMITING; Start at 18:00 Morphine Sulfate (morphine) 2 mg Q4H PRN IV PAIN LEVEL 7-10 Last administered on 09/22/16 01:30; Admin Dose 2 MG; Start 09/15/16 at 18:00 Haloperidol 5 mg 5 mg Q6H PRN IM AGITATION Last administered on 09/19/16at 10: 40; Admin Dose 5 MG; Start 09/18/16 at 11:30 Propofol (Diprivan) 100 ml @ 2.478 mls/ hr Q12H IV Last administered on 09:33; Admin Dose 24.78 MLS/HR; Start 09/19/16 at 13:30 Famotidine 20 mg 20 mg BID IV Last administered on 10/10/16 08:22; Admin Dose 20 MG; Start 09/19/16 at 21:00 Fentanyl 1000 mcg/ Dextrose 100 ml @ 2.5 mls/hr TITRATE IV Last administered on 10/10/16 07:36; Admin Dose 10 MLS/HR; Start 09/23/16 at 10:00 Dextrose/Sodium Chloride (D5-NS) 1,000 ml @ 50 mls/hr Q20H IV Last administered on 10/09/16 17:10; Admin Dose 50 MLS/HR; Start 09/23/16 at 16:30 Metoclopramide HCl 10 mg 10 mg Q12 IV Last administered on 10/10/16 08:22; Admin Dose 10 MG; Start 09/24/16 at 11:30 Midazolam HCl/ Dextrose (Versed/D5W) 50 ml @ 2 mls/hr TITRATE IV Last administered on 10/08/16 02:04; Admin Dose 7 MLS/HR; Start 09/25/16 at 12:00; Status Future Hold Acetaminophen (Tylenol Liquid) 650 mg Q4H PRN NGT PAIN AND OR ELEVATED TEMP Last administered on 10/10/16 03:47; Admin Dose 650 MG; Start 09/28/16 at 13:30 Enoxaparin Sodium 100 mg 100 mg Q12 SC Last administered on 10/10/16 08:26; Admin Dose 100 MG; Start 10/01/16 at 21:00; Status Future hold Norepinephrine (Levophed) 250 ml @ 1.875 mls/ hr TITRATE IV Last administered on 10/09/16 16:36; Admin Dose 1.875 MLS/HR; Start 09/30/16 at 19:00 Lisinopril 2.5 mg 2.5 mg DAILY GTB Last administered on 10/03/16 08:43; Admin Dose 2.5 MG; Start 10/02/16 at 09:00 Potassium Chloride/Sodium Chloride (KCl/NS) 110 ml @ 55 mls/hr DAILY IVPB Last administered on 10/10/16 08:23; Admin Dose 55 MLS/HR; Start 10/08/16 at 10 :00 Furosemide 20 mg 20 mg DAILY@06 IV Last administered on 10/10/16 06:33; Admin Dose 20 MG; Start 10/09/16 at 06:00 Meropenem/Sodium Chloride (Merrem/NS) 100 ml @ 200 mls/hr Q12 IVPB Last administered on 10/10/16 09:32; Admin Dose 200 MLS/HR; Start 10/08/16 at 18:30 Vancomycin HCl (Vanco Iv Per Pharmacy) PER PHARMACY DOSING NOTE XX ; Start 10/08 at 17:30 Collagenase (Santyl) 1 applic DAILY TOP Last administered on 10/09/16 08:29; Admin Dose 1 APPLIC; Start 10/08/16 at 20:00 Nystatin (Nystatin Powder) 1 applic BID TOP Last administered on 10/10/16 08: 23; Admin Dose 1 APPLIC; Start 10/08/16 at 21:00 Collagenase 1 applic 1 applic PRN PRN TOP WOUND CARE Last administered on 07:54; Admin Dose 1 APPLIC; Start 10/08/16 at 17:30 Vancomycin HCl/ Sodium Chloride (Vancocin/NS) 250 ml @ 83.333 mls/ hr Q12H IVPB Last administered on 10/10/16 05:51; Admin Dose 83.333 MLS/HR; Start at 06:00 DYLLAN PULIDO MD Oct 10, 2016 11:14
--- NOTE | 2016-10-10 13:29 | PN ---
DATE: 10/10/2016 PULMONARY FOLLOWUP SUBJECTIVE: Chart reviewed. Events noted. Off sedation, patient remains quite agitated and not fo llowing all commands. PHYSICAL EXAMINATION: VITAL SIGNS: Blood pressure 89/62, pulse 76, respirations 16, temperature afebrile. HEENT: Pupils are equal and react to light. Anicteric sclerae, orally intubated. NECK: Supple, no JVD noted, no cervical adenopathy, no carotid bruits heard. LUNGS: Decreased breath sounds at the right base. CARDIOVASCULAR: S1, S2 normal. ABDOMEN: Soft, nontender. No organomegaly or masses noted. EXTREMITIES: No clubbing, cyanosis noted, 1+ pretibial edema present bilaterally. NEUROLOGIC: Currently sedated on the vent. LABORATORIES: Sodium 140, potassium 3.6, chloride 103, CO2 30, BUN 17, creatinine 0.72, glucose 100 . WBC 6.2, hemoglobin 11.3, creatinine 33.9, platelets 322. Chest x-ray shows right basilar atelectasis. Chest tube in place. IMPRESSION: 1. Acute respiratory failure, hypoxemic. 2. Right lower lobe pneumonia. 3. Complicated parapneumonic effusion, status post chest tube drainage. 4. Status post pulmonary embolism. 5. Encephalopathy. 6. Transaminitis. 7. History of polysubstance abuse. RECOMMENDATIONS: 1. Continue ventilator support for now. 2. Continue chest tube drainage. 3. Continue antibiotics per ID recommendations. 4. Continue Lovenox. 5. Discontinue diuretics. 6. Nutritional support. 7. Will assess for weaning in the morning. 8. Followup labs and x-ray in a.m. 9. Above discussed with the staff in detail. Dictated By: YON WAN MD, MA/MARIA ELENA Conf#: [id number] DID#: [id number] CC: DREW MOLINA MD;*EndCC*
--- NOTE | 2016-10-10 15:35 | PN ---
Date/Time of Note Date/Time of Note DATE: 10/10/16 TIME: 15:35 Assessment/Plan Lines/Catheters IV Catheter Type (from Nrsg): Central Line Tang in Place (from Nrsg): Yes Assessment/Plan Chief Complaint/Hosp Course IMPRESSION 1. Pulmonary embolism. 2. Pneumonia. 3 Pleural effusion RECOMMENDATIONS: SP CT placement will continue CT sxn Problems: Subjective 24 Hr Interval Summary Constitutional: improved Pain Control: mild Exam/Review of Systems Vital Signs Vitals Vital Signs Date Time Temp Pulse Resp B/P Pulse Ox O2 Delivery O2 Flow Rate FiO2 10/10/16 14:30 68 16 95/65 100 Mechanical Ventilator 10/10/16 13:20 30 10/10/16 12:00 99.1 Intake and Output 10/09/16 10/09/16 10/10/16 15:00 23:00 07:00 Intake Total 1435 ml 1305.20 ml 1197.0 ml Output Total 880 ml 355 ml 620 ml Balance 555 ml 950.20 ml 577.0 ml Exam ENMT: mucosa pink and moist, nl external ears & nose, nl lips & teeth, nl nasal mucosa & septum Neck: non-tender, supple Respiratory: clear to auscultation, normal air movement Cardiovascular: nl pulses, regular rate and rhythm Results Result Diagram: 10/10/16 0515 10/10/16 0515 YOUNG HAY MD Oct 10, 2016 15:35
[2016-10-10] MEDS: NORepinephrine 8MG/250 ML (PMX 250 ML IV SCH (19:02)
[2016-10-11] VITALS (86 sets, daily range): BP systolic 84–120; BP diastolic 51–91; PULSE 66–116; RESP 10–23
[2016-10-11] MEDS: FENTAnyl 1,000 MCG in DEXTROSE 5% 80 ML IV SCH ×3 (01:36→20:47)
[2016-10-11] MEDS: PROPOFOL 100 ML IV SCH ×6 (03:30→23:27)
[2016-10-11] MEDS: DEXTROSE 5%-0.9% NACL 1,000 ML IV SCH (05:30)
[2016-10-11] MEDS: LISINOPRIL 5 MG TAB GTB SCH (08:57)
[2016-10-11] MEDS: MEROPENEM 1 GM in SOD CHLORIDE 0.9% 100 ML IVPB SCH ×2 (08:57→20:33)
[2016-10-11] MEDS: LORAZEPAM 2 MG INJ IV PRN ×3 (08:58→20:28)
[2016-10-11] MEDS: METOCLOPRAMIDE 10 MG INJ IV SCH ×2 (08:58→20:28)
[2016-10-11] MEDS: FAMOTIDINE 20 MG INJ IV SCH ×2 (08:58→20:28)
[2016-10-11] MEDS: ENOXAPARIN 100 MG/ML SYG SC SCH ×2 (09:04→20:29)
[2016-10-11] MEDS: NYSTATIN 30 GM POWDER BTL TOP SCH ×2 (09:09→20:34)
--- NOTE | 2016-10-11 10:41 | CONS ---
Date/Time of Note Date/Time of Note DATE: 10/11/16 TIME: 10:33 Assessment/Plan Assessment/Plan Chief Complaint/Hosp Course - Sepsis d/t PNA with parapneumonic effusion. - PNA with parapneumonic effusion. Could be started as CAP, other considerations include aspiration PNA - recurrent right pleural effusion. s/p diagnostic thoracentesis on 09/22/16. It showed glu=74 pro <2, OVD=[id number]. No malignancy on cytology. s/p repeat thoracentesis 10/01/16. Again, no malignancy on cytology. Right chest tube placed 10/07/16. - recurrent fever, improving - hypotension d/t sedation - on pressors 10/10 - Acute PE - LLE DVT and Right cephalic vein thrombosis - hypoxemic respiratory failure/vent dependence - Q TB gold indeterminate status; PPD negative - acute decompensated systolic CHF, severe biventricular cardiomyopathy with EF 20% - h/o tox screen positive for meth and benzo (per EMR) - transaminitis, possibly chock liver, improving. Acute hepatitis panel negative - drug rash likely d/t pip/tazo - mild leukopenia - resolved - s/p hyperkalemia and hypokalemia - s/p hyponatremia and hypernatremia - s/p lactic acidosis - s/p Vanco (09/19/16-10/04/16, 10/08/16-10/10/16), azithromycin (10/02/16-10/06/16) , pip/tazo (09/29/16-10/08/16), Tamiflu (10/02/16-10/08/16) - Negative rapid influenza screen, PPD, legionella antigen, mycoplasma pneumoniae, chlamydia pneumoniae serology, and respiratory viral panel; AFB smear negative (09/29, 09/30 & 10/01) Recommendations: - continue meropenem (10/08/16-) to complete a 7-8 day course for HCAP - f/u repeat procalcitonin (pending) and respiratory/endotracheal culture ( prelim growing chaitanya albicans) - f/u blood and urine cultures (negative to date) - f/u pleural fluid for gram stain (negative to date), culture (pending), AFB ( prelim shows no AFB), fungal culture (pending) - monitor rash (slowly improving) - management d/w [employer]ECT[employer] PERSON - Above d/w Dr. Osullivan - critical care time spent: 40 min Problems: Consultation Date/Type/Reason Admit Date/Time Sep 15, 2016 at 16:54 Initial Consult Date 09/29/16 Type of Consultation: Infectious Disease Referring Provider: JAN ZHANG 24 HR Interval Summary Free Text/Dictation Tmax 99.9. Remains intubated and sedated on propofol and fentanyl otherwise gets very agitated; was on Levophed overnight and slowly trying to wean off pressors per RN Janett. Unable to do ROS d/t sedation. Exam/Review of Systems Vital Signs Vitals Vital Signs Date Time Temp Pulse Resp B/P Pulse Ox O2 Delivery O2 Flow Rate FiO2 10/11/16 09:50 76 16 100 30 10/11/16 09:30 97/66 10/11/16 09:00 Mechanical Ventilator 10/11/16 08:00 99.3 Intake and Output 10/10/16 10/10/16 10/11/16 15:00 23:00 07:00 Intake Total 1295.68 ml 1323.74 ml 1223.68 ml Output Total 800 ml 650 ml 1210 ml Balance 495.68 ml 673.74 ml 13.68 ml Exam Constitutional: other (orally intubated and sedated on Fentanyl and propofol), well developed Head: atraumatic, normocephalic ENMT: intubated Neck: supple, No masses Respiratory: clear anteriorly. other (left subclavian central line c/d/i). Right chest tube intact with small amount of output. Cardiovascular: nl pulses, regular rate and rhythm Gastrointestinal: bowel sounds, other (NGT with TF intact), soft Genitourinary - Male: nl penis, nl scrotum, other (Tang cath intact with clear dark yellow urine) Extremities: trace pretibial edema, normal pulses, No clubbing, No cyanosis Neurological: other (sedated). BUE in wrist restraints Skin: nl turgor, rash (diffuse petechial rash to entire body- slightly improved compared to the day before) other (Multiple tattoos including 2 flags on the left bicep area and the name Msisy on LUE; stage 3 sacral decub - see photo in chart and nursing documentation for details) Results Procalcitonin - Last Results Test 09/30/16 04:30 Procalcitonin 0.37ng/mL (<0.10) H Result Diagram: 10/10/1615 10/10/1615 Medications Medications Current Medications Lorazepam (Ativan) 0.5 mg Q6H PRN IV ANXIETY Last administered on 10/11/16 08: 58; Admin Dose 0.5 MG; Start 09/15/16 at 18:00 Ondansetron HCl (Zofran Inj) 4 mg Q6H PRN IV NAUSEA AND/OR VOMITING; Start at 18:00 Morphine Sulfate (morphine) 2 mg Q4H PRN IV PAIN LEVEL 7-10 Last administered on 09/22/16 01:30; Admin Dose 2 MG; Start 09/15/16 at 18:00 Haloperidol 5 mg 5 mg Q6H PRN IM AGITATION Last administered on 09/19/16at 10: 40; Admin Dose 5 MG; Start 09/18/16 at 11:30 Propofol (Diprivan) 100 ml @ 2.478 mls/ hr Q12H IV Last administered on 06:51; Admin Dose 24.78 MLS/HR; Start 09/19/16 at 13:30 Famotidine 20 mg 20 mg BID IV Last administered on 10/11/16 08:58; Admin Dose 20 MG; Start 09/19/16 at 21:00 Fentanyl 1000 mcg/ Dextrose 100 ml @ 2.5 mls/hr TITRATE IV Last administered on 10/11/16 01:36; Admin Dose 10 MLS/HR; Start 09/23/16 at 10:00 Dextrose/Sodium Chloride (D5-NS) 1,000 ml @ 50 mls/hr Q20H IV Last administered on 10/11/16 05:30; Admin Dose 50 MLS/HR; Start 09/23/16 at 16:30 Metoclopramide HCl 10 mg 10 mg Q12 IV Last administered on 10/11/16 08:58; Admin Dose 10 MG; Start 09/24/16 at 11:30 Midazolam HCl/ Dextrose (Versed/D5W) 50 ml @ 2 mls/hr TITRATE IV Last administered on 10/08/16 02:04; Admin Dose 7 MLS/HR; Start 09/25/16 at 12:00; Status Future Hold Acetaminophen (Tylenol Liquid) 650 mg Q4H PRN NGT PAIN AND OR ELEVATED TEMP Last administered on 10/10/16 03:47; Admin Dose 650 MG; Start 09/28/16 at 13:30 Enoxaparin Sodium (Lovenox) 100 mg Q12 SC Last administered on 10/11/16 09:04 ; Admin Dose 100 MG; Start 10/01/16 at 21:00; Status Future hold Lisinopril 2.5 mg 2.5 mg DAILY GTB Last administered on 10/03/16 08:43; Admin Dose 2.5 MG; Start 10/02/16 at 09:00 Meropenem/Sodium Chloride (Merrem/NS) 100 ml @ 200 mls/hr Q12 IVPB Last administered on 10/11/16 08:57; Admin Dose 200 MLS/HR; Start 10/08/16 at 18:30 Collagenase (Santyl) 1 applic DAILY TOP Last administered on 10/09/16 08:29; Admin Dose 1 APPLIC; Start 10/08/16 at 20:00 Nystatin (Nystatin Powder) 1 applic BID TOP Last administered on 10/11/16 09: 09; Admin Dose 1 APPLIC; Start 10/08/16 at 21:00 Collagenase 1 applic 1 applic PRN PRN TOP WOUND CARE Last administered on 07:54; Admin Dose 1 APPLIC; Start 10/08/16 at 17:30 Norepinephrine/ Dextrose (Levophed/D5W) 500 ml @ 1.87 mls/hr TITRATE IV ; Start 10/10/16 at 16:00 Procedures Procedures CXR 10/10/16: Cardiomegaly. No pneumonia or failure. Right basilar atelectasis. LAURA OJEDA NP Oct 11, 2016 10:41
[2016-10-11] MEDS ORDERED: POTASSIUM CHLORIDE 20 MEQ in DEXTROSE 5%-0.9% NACL 1,000 ML IV SCH (11:12)
--- NOTE | 2016-10-11 11:14 | PN ---
Date/Time of Note Date/Time of Note DATE: 10/11/16 TIME: 11:13 Assessment/Plan VTE Prophylaxis VTE Prophylaxis Intervention: other Lines/Catheters IV Catheter Type (from Nrsg): Central Line Central line still needed: Yes Urinary Cath still in place: Yes Reason Cath still needed: skin wounds contaminated by urine Assessment/Plan Chief Complaint/Hosp Course 1) pneumonia - intravenous antibiotics 2) pulmonary embolus - anticoagulation - oxygen 3) agitation - BZDs prn 4) respiratory failure - on ventilator now - appreciate pulmonary assistance 5) pulmonary effusion - s/p thoracentesis Problems: Subjective 24 Hr Interval Summary Free Text/Dictation Patient remains intubated and sedated Exam/Review of Systems Vital Signs Vitals Vital Signs Date Time Temp Pulse Resp B/P Pulse Ox O2 Delivery O2 Flow Rate FiO2 10/11/16 09:50 76 16 100 30 10/11/16 09:30 97/66 10/11/16 09:00 Mechanical Ventilator 10/11/16 08:00 99.3 Intake and Output 10/10/16 10/10/16 10/11/16 15:00 23:00 07:00 Intake Total 1295.68 ml 1323.74 ml 1223.68 ml Output Total 800 ml 650 ml 1210 ml Balance 495.68 ml 673.74 ml 13.68 ml Exam Constitutional: well developed Head: atraumatic, normocephalic Neck: supple Respiratory: diminished breath sounds Cardiovascular: regular rate and rhythm Gastrointestinal: non-tender, soft Extremities: normal pulses Results Result Diagram: 10/10/16 0515 10/10/16 0515 Medications Medications Current Medications Lorazepam (Ativan) 0.5 mg Q6H PRN IV ANXIETY Last administered on 10/11/16 08: 58; Admin Dose 0.5 MG; Start 09/15/16 at 18:00 Ondansetron HCl (Zofran Inj) 4 mg Q6H PRN IV NAUSEA AND/OR VOMITING; Start at 18:00 Morphine Sulfate (morphine) 2 mg Q4H PRN IV PAIN LEVEL 7-10 Last administered on 09/22/16 01:30; Admin Dose 2 MG; Start 09/15/16 at 18:00 Haloperidol 5 mg 5 mg Q6H PRN IM AGITATION Last administered on 09/19/16at 10: 40; Admin Dose 5 MG; Start 09/18/16 at 11:30 Propofol (Diprivan) 100 ml @ 2.478 mls/ hr Q12H IV Last administered on 10:30; Admin Dose 24.78 MLS/HR; Start 09/19/16 at 13:30 Famotidine 20 mg 20 mg BID IV Last administered on 10/11/16 08:58; Admin Dose 20 MG; Start 09/19/16 at 21:00 Fentanyl 1000 mcg/ Dextrose 100 ml @ 2.5 mls/hr TITRATE IV Last administered on 10/11/16 10:33; Admin Dose 10 MLS/HR; Start 09/23/16 at 10:00 Dextrose/Sodium Chloride (D5-NS) 1,000 ml @ 50 mls/hr Q20H IV Last administered on 10/11/16 05:30; Admin Dose 50 MLS/HR; Start 09/23/16 at 16:30 Metoclopramide HCl 10 mg 10 mg Q12 IV Last administered on 10/11/16 08:58; Admin Dose 10 MG; Start 09/24/16 at 11:30 Midazolam HCl/ Dextrose (Versed/D5W) 50 ml @ 2 mls/hr TITRATE IV Last administered on 10/08/16 02:04; Admin Dose 7 MLS/HR; Start 09/25/16 at 12:00; Status Future Hold Acetaminophen (Tylenol Liquid) 650 mg Q4H PRN NGT PAIN AND OR ELEVATED TEMP Last administered on 10/10/16 03:47; Admin Dose 650 MG; Start 09/28/16 at 13:30 Enoxaparin Sodium (Lovenox) 100 mg Q12 SC Last administered on 10/11/16 09:04 ; Admin Dose 100 MG; Start 10/01/16 at 21:00; Status Future hold Lisinopril 2.5 mg 2.5 mg DAILY GTB Last administered on 10/03/16 08:43; Admin Dose 2.5 MG; Start 10/02/16 at 09:00 Meropenem/Sodium Chloride (Merrem/NS) 100 ml @ 200 mls/hr Q12 IVPB Last administered on 10/11/16 08:57; Admin Dose 200 MLS/HR; Start 10/08/16 at 18:30 Collagenase (Santyl) 1 applic DAILY TOP Last administered on 10/09/16 08:29; Admin Dose 1 APPLIC; Start 10/08/16 at 20:00 Nystatin (Nystatin Powder) 1 applic BID TOP Last administered on 10/11/16 09: 09; Admin Dose 1 APPLIC; Start 10/08/16 at 21:00 Collagenase 1 applic 1 applic PRN PRN TOP WOUND CARE Last administered on 07:54; Admin Dose 1 APPLIC; Start 10/08/16 at 17:30 Norepinephrine/ Dextrose (Levophed/D5W) 500 ml @ 1.87 mls/hr TITRATE IV ; Start 10/10/16 at 16:00 DREW MOLINA Oct 11, 2016 11:14
--- NOTE | 2016-10-11 12:16 | PN ---
Date/Time of Note Date/Time of Note DATE: 10/11/16 TIME: 12:15 Assessment/Plan Lines/Catheters IV Catheter Type (from Nrsg): Central Line Tang in Place (from Nrsg): Yes Assessment/Plan Chief Complaint/Hosp Course IMPRESSION 1. Pulmonary embolism. 2. Pneumonia. 3 Pleural effusion RECOMMENDATIONS: CT [address] placement will continue CT sxn Problems: Subjective 24 Hr Interval Summary Constitutional: improved Pain Control: mild Exam/Review of Systems Vital Signs Vitals Vital Signs Date Time Temp Pulse Resp B/P Pulse Ox O2 Delivery O2 Flow Rate FiO2 10/11/16 11:25 72 16 100 30 10/11/16 11:15 98/63 10/11/16 11:00 Mechanical Ventilator 10/11/16 08:00 99.3 Intake and Output 10/10/16 10/10/16 10/11/16 15:00 23:00 07:00 Intake Total 1295.68 ml 1323.74 ml 1234.93 ml Output Total 800 ml 650 ml 1210 ml Balance 495.68 ml 673.74 ml 24.93 ml Exam ENMT: mucosa pink and moist, nl external ears & nose, nl lips & teeth, nl nasal mucosa & septum Neck: non-tender, supple Respiratory: clear to auscultation, normal air movement Cardiovascular: nl pulses, regular rate and rhythm Results Result Diagram: 10/10/16 0515 10/10/16 0515 YOUNG HAY MD Oct 11, 2016 12:16
[2016-10-11] MEDS: D5-NS + KCL 20 MEQ 1,000 ML IV SCH (14:09)
[2016-10-11] MEDS: COLLAGENASE 30 GM TUBE TOP SCH (14:52)
--- NOTE | 2016-10-11 17:25 | PN ---
DATE: 10/11/2016 SUBJECTIVE: Chart reviewed. Events noted. The patient remains on ventilator, saturating 98%. [address] st tube drainage was about 190 mL yesterday. PHYSICAL EXAMINATION: VITAL SIGNS: Blood pressure 98/63, pulse 71, respirations 15, temperature afebrile. HEENT: Pupils are equal and reactive to light. Orally intubated. NECK: Supple. No JVD noted, no cervical adenopathy, no carotid bruits heard. LUNGS: Few scattered rhonchi. CARDIOVASCULAR: S1, S2 normal. ABDOMEN: Soft, nontender. No organomegaly or masses noted. EXTREMITIES: No clubbing or cyanosis noted. NEUROLOGIC: Sedated on the vent. LABORATORY DATA: No current labs. IMPRESSION: 1. Acute respiratory failure, somewhat hypoxemic. 2. Right lower lobe pneumonia. 3. Complicated parapneumonic effusion, status post chest tube drainage. 4. Status post pulmonary embolism. 5. Encephalopathy. 6. Potassium adenitis. 7. History of polysubstance abuse. RECOMMENDATIONS: 1. Continue antibiotics. 2. Continue chest tube drainage. 3. Continue ventilator support. 4. Continue Lovenox. 5. Nutritional support. 6. Consultants noted. 7. Will assess for weaning in the morning. 8. Followup labs and x-ray in the morning. 9. Above discussed with the staff. Dictated By: YON WAN MD, MA/MARIA ELENA Conf#: [id number] DID#: [id number]
[2016-10-11 21:48] LABS: POTASSIUM 3.7 mmol/L (3.5-5.1)
[2016-10-11 21:50] LABS: CREATININE 0.46 mg/dl (0.61-1.24)
[2016-10-11 21:51] LABS: CALCIUM 7.7 mg/dl (8.4-10.2)
[2016-10-11 21:52] LABS: MAGNESIUM 1.7 mg/dl (1.7-2.5)
[2016-10-11] MEDS: morphine 2 MG INJ IV PRN (23:27)
[2016-10-12] VITALS (72 sets, daily range): BP systolic 74–143; BP diastolic 45–119; PULSE 77–165; RESP 10–45
[2016-10-12] MEDS: PROPOFOL 100 ML IV SCH ×4 (04:17→23:24)
[2016-10-12 04:57] LABS: BASOPHIL # 0.1 10^3/ul (0.0-0.1); EOSINOPHILS # 1.6 10^3/ul (0.0-0.5); EOSINOPHILS % 25.9 % (0.0-7.0); HEMATOCRIT 36.6 % (42.0-52.0); HEMOGLOBIN 11.9 g/dl (14.0-18.0); LYMPHOCYTES # 2.3 10^3/ul (0.8-2.9); LYMPHOCYTES % 36.7 % (15.0-51.0); MEAN CORPUSCULAR HEMOGLOBIN 28.5 pg (29.0-33.0); MEAN CORPUSCULAR HGB CONC 32.5 g/dl (32.0-37.0); MEAN CORPUSCULAR VOLUME 87.6 fl (82.0-101.0); MEAN PLATELET VOLUME 10.1 fl (7.4-10.4); MONOCYTE # 0.7 10^3/ul (0.3-0.9); NEUTROPHIL # 1.6 10^3/ul (1.6-7.5); NEUTROPHILS % 25.4 % (39.0-77.0); PLATELET COUNT 337 10^3/UL (140-440); RED BLOOD COUNT 4.18 10^6/ul (4.70-6.10); UNCORRECTED WBC 6.2 10^3/ul (4.8-10.8); WHITE BLOOD COUNT 6.2 10^3/ul (4.8-10.8)
[2016-10-12] MEDS: FENTAnyl 1,000 MCG in DEXTROSE 5% 80 ML IV SCH ×2 (05:06→19:28)
[2016-10-12 05:07] LABS: POTASSIUM 3.7 mmol/L (3.5-5.1)
[2016-10-12 05:10] LABS: CREATININE 0.55 mg/dl (0.61-1.24)
[2016-10-12 05:11] LABS: CALCIUM 7.9 mg/dl (8.4-10.2)
[2016-10-12 05:24] LABS: CONDITION 1; LH ANALYZER COMMENTS 1; SUSPECT 1
[2016-10-12] MEDS ORDERED: MAGNESIUM SULFATE 2 GM/50 ML 50 ML IVPB ONE (05:30)
--- NOTE | 2016-10-12 06:44 | RADRPT ---
PROCEDURE: XR Chest. CLINICAL INDICATION: Pneumonia TECHNIQUE: Portable single view of the chest COMPARISON: 10/10 FINDINGS: Since the prior study, there has been no significant interval change in the appearance of the heart or lungs or position of tubes and lines allowing for slight differences in technique and positioning . Cardiomegaly and patchy bibasilar opacity again seen. Right chest tube remains in place without v isible pneumothorax. Subcutaneous emphysema along the right chest wall. IMPRESSION: No significant interval change. RPTAT: [facility] Norma Trevino Physician Date Time Electronically viewed and signed by Norma Trevino Physician on 10/12/2016 06:44 LE/
[2016-10-12] MEDS: LORAZEPAM 2 MG INJ IV PRN ×2 (07:43→20:09)
[2016-10-12 07:55] LABS: AADO2 Arterial 49.2 mmHg (7.0-24.0); Allen Test ACCEPTAB; Arterial Base Excess 4.2 mmol/L (-3.0-3); Arterial COHb 0.3 % (0.0-3.0); Arterial Fraction of Oxyhgb 97.4 % (93.0-99.0); Arterial HCO3 29.6 mmol/L (22.0-26.0); Arterial MetHb 0.3 % (0.0-1.5); Arterial Total Hemglobin 13.2 g/dl (12.0-18.0); MODE VENT - AC
[2016-10-12] MEDS: LISINOPRIL 5 MG TAB GTB SCH (09:00)
[2016-10-12] MEDS: COLLAGENASE 30 GM TUBE TOP SCH (09:00)
[2016-10-12] MEDS: MEROPENEM 1 GM in SOD CHLORIDE 0.9% 100 ML IVPB SCH ×2 (09:01→20:10)
[2016-10-12] MEDS: METOCLOPRAMIDE 10 MG INJ IV SCH ×2 (09:04→20:09)
[2016-10-12] MEDS: FAMOTIDINE 20 MG INJ IV SCH ×2 (09:04→20:09)
[2016-10-12] MEDS: NYSTATIN 30 GM POWDER BTL TOP SCH ×2 (09:05→20:11)
[2016-10-12] MEDS: ENOXAPARIN 100 MG/ML SYG SC SCH ×2 (09:05→20:12)
[2016-10-12] MEDS: D5-NS + KCL 20 MEQ 1,000 ML IV SCH (10:12)
--- NOTE | 2016-10-12 11:18 | CONS ---
Date/Time of Note Date/Time of Note DATE: 10/12/16 TIME: 11:12 Assessment/Plan Assessment/Plan Additional Assessment/Plan Patient admitted with pneumonia and sepsis s/p right lung chest tube placement CXR from today is essentially clear. drug abuse. PE DVT Will hold sedation, continue current supportive care, once off sedative affect will be assessed for weaning from ventilator. Consultation Date/Type/Reason Admit Date/Time Sep 15, 2016 at 16:54 Initial Consult Date 09/29/16 Type of Consultation: pulmonary Referring Provider: JAN ZHANG 24 HR Interval Summary Free Text/Dictation Patient remains ventilator dependant, was given a sedation vacation yesterday, did not tolerate that. Currently awake and follows simple commands. has remained hemodynamically stable. Exam/Review of Systems Vital Signs Vitals Vital Signs Date Time Temp Pulse Resp B/P Pulse Ox O2 Delivery O2 Flow Rate FiO2 10/12/16 09:56 83 18 100 30 10/12/16 09:40 95/63 10/12/16 09:00 Mechanical Ventilator 10/12/16 08:00 99.2 Intake and Output 10/11/16 10/11/16 10/12/16 14:59 22:59 06:59 Intake Total 1304.410 ml 1300 ml 1125 ml Output Total 1245 ml 1430 ml 1015 ml Balance 59.410 ml -130 ml 110 ml Exam HEENT: supple neck, orally intubated. No neck masses, mud size pupils. CHEST: right chest tube in place, lungs are clear. S1 S2 audible, no murmurs. RRR. ABDOMEN: soft, non tender, non distended. BS + EXTREMITIES: no edema, pulses 2 + [employer]: awake, follows simple commands. Results Result Diagram: 10/12/16 0420 10/12/16 0420 Results 24 hrs Laboratory Tests Test 10/11/16 21:32 10/12/16 04:20 10/12/16 07:00 Anion Gap 11 10 Blood Urea Nitrogen 8 # 8 Calcium Level 7.7 L 7.9 L Carbon Dioxide Level 33 H 33 H Chloride Level 102 104 Creatinine 0.46 L 0.55 L Glucose Level 100 91 Magnesium Level 1.7 Potassium Level 3.7 3.7 Sodium Level 142 143 Basophils # 0.1 Basophils % 1.0 Blood Morphology Comment Differential Comment AUTO w/SCAN Eosinophils # 1.6 H Eosinophils % 25.9 H Hematocrit 36.6 L Hemoglobin 11.9 L Lymphocytes # 2.3 Lymphocytes % 36.7 Mean Corpuscular Hemoglobin 28.5 L Mean Corpuscular Hemoglobin Concent 32.5 Mean Corpuscular Volume 87.6 Mean Platelet Volume 10.1 Monocytes # 0.7 Monocytes % 11.0 Neutrophils # 1.6 Neutrophils % 25.4 L Nucleated Red Blood Cells # 0.0 Nucleated Red Blood Cells % 0.0 Platelet Count 337 Prealbumin 14.3 L Red Blood Count 4.18 L Red Cell Distribution Width 15.0 H White Blood Count 6.2 Arterial Blood HCO3 29.6 H Arterial Blood Base Excess 4.2 H Arterial Blood Oxygen Saturation 98.0 Sky Test ACCEPTAB Arterial Blood Gas Puncture Site Right Radial Arterial Blood Carboxyhemoglobin 0.3 Arterial Blood Date Drawn 10/12/2016 7:30:29 AM Arterial Blood Methemoglobin 0.3 Arterial Blood pCO2 (Temp correct) 47.7 H Arterial Blood pH (Temp corrected) 7.411 Arterial Blood pO2 (Temp corrected) 108.7 H Blood Gas A-a O2 Differential 49.2 H Blood Gas Actual Respiration Rate 17 Blood Gas Low PEEP Setting 5.0 Blood Gas Modality VENT - AC Blood Gas Notified Time 10/12/2016 7:55:10 AM Blood Gas Notified Whom JLD Blood Gas Respiration Rate 16.0 Blood Gas Specimen Source Blood arterial Blood Gas Temperature 37.0 Blood Gas Tidal Volume 500.0 FiO2 30.0 Oxyhemoglobin Percent 97.4 Total Hemoglobin 13.2 Medications Medications Current Medications Lorazepam (Ativan) 0.5 mg Q6H PRN IV ANXIETY Last administered on 10/12/16 07: 43; Admin Dose 0.5 MG; Start 09/15/16 at 18:00 Ondansetron HCl (Zofran Inj) 4 mg Q6H PRN IV NAUSEA AND/OR VOMITING; Start at 18:00 Morphine Sulfate (morphine) 2 mg Q4H PRN IV PAIN LEVEL 7-10 Last administered on 10/11/16 23:27; Admin Dose 2 MG; Start 09/15/16 at 18:00 Haloperidol 5 mg 5 mg Q6H PRN IM AGITATION Last administered on 09/19/16at 10: 40; Admin Dose 5 MG; Start 09/18/16 at 11:30 Propofol (Diprivan) 100 ml @ 2.478 mls/ hr Q12H IV Last administered on 09:02; Admin Dose 24.78 MLS/HR; Start 09/19/16 at 13:30 Famotidine (Pepcid Iv) 20 mg BID IV Last administered on 10/12/16 09:04; Admin Dose 20 MG; Start 09/19/16 at 21:00 Metoclopramide HCl 10 mg 10 mg Q12 IV Last administered on 10/12/16 09:04; Admin Dose 10 MG; Start 09/24/16 at 11:30 Midazolam HCl/ Dextrose (Versed/D5W) 50 ml @ 2 mls/hr TITRATE IV Last administered on 10/08/16 02:04; Admin Dose 7 MLS/HR; Start 09/25/16 at 12:00; Status Future Hold Acetaminophen (Tylenol Liquid) 650 mg Q4H PRN NGT PAIN AND OR ELEVATED TEMP Last administered on 10/10/16 03:47; Admin Dose 650 MG; Start 09/28/16 at 13:30 Enoxaparin Sodium (Lovenox) 100 mg Q12 SC Last administered on 10/12/16 09:05 ; Admin Dose 100 MG; Start 10/01/16 at 21:00; Status Future hold Lisinopril 2.5 mg 2.5 mg DAILY GTB Last administered on 10/03/16 08:43; Admin Dose 2.5 MG; Start 10/02/16 at 09:00 Meropenem/Sodium Chloride (Merrem/NS) 100 ml @ 200 mls/hr Q12 IVPB Last administered on 10/12/16 09:01; Admin Dose 200 MLS/HR; Start 10/08/16 at 18:30 Collagenase (Santyl) 1 applic DAILY TOP Last administered on 10/11/16 14:52; Admin Dose 1 APPLIC; Start 10/08/16 at 20:00 Nystatin (Nystatin Powder) 1 applic BID TOP Last administered on 10/12/16 09: 05; Admin Dose 1 APPLIC; Start 10/08/16 at 21:00 Collagenase 1 applic 1 applic PRN PRN TOP WOUND CARE Last administered on 07:54; Admin Dose 1 APPLIC; Start 10/08/16 at 17:30 Norepinephrine 16 mg/Dextrose 500 ml @ 1.87 mls/hr TITRATE IV ; Start 10/10/16 at 16:00 Potassium Chloride/Dextrose/ Sod Cl 1,000 ml @ 50 mls/hr Q20H IV Last administered on 10/12/16 10:12; Admin Dose 50 MLS/HR; Start 10/11/16 at 12:30 Fentanyl/Dextrose (D5W) 100 ml @ 2.5 mls/hr TITRATE IV Last administered on 05:06; Admin Dose 10 MLS/HR; Start 10/11/16 at 18:00 ILYA HILL Oct 12, 2016 11:18
--- NOTE | 2016-10-12 13:21 | PN ---
Date/Time of Note Date/Time of Note DATE: 10/12/16 TIME: 13:12 Assessment/Plan VTE Prophylaxis VTE Prophylaxis Intervention: LMWH Lines/Catheters IV [facility]ter Type (from [facility]): Central Line Central line still needed: Yes Urinary Cath still in place: Yes Reason Cath still needed: urinary retention Assessment/Plan Chief Complaint/Hosp Course ASSESSMENT AND PLAN: 1. Acute respiratory failure, resolving. Dr. Aquino is following the patient from pulmonology consultation. 2. Right-sided pneumonia with complicated parapneumonic effusion, status post thoracentesis,s/p R chest tube placement. Continue antibiotics per Dr. Osullivan group following, Infectious Disease standpoint. 3. Acute pulmonary emboli. Continue patient on Lovenox. 4. 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 [address] Woodard is following from cardiology standpoint. 5. Encephalopathy, likely toxic metabolic, resolving. Continue to monitor. 6. Sepsis secondary to #2, resolved. Continue Pepcid for peptic ulcer disease prophylaxis. Further recommendations based on clinical course. Plan of care discussed with Dr. Patel. Problems: Subjective 24 Hr Interval Summary Free Text/Dictation Patient is extubated today, awake, agitated, no fever per RN. Stable blood pressure. Exam/Review of Systems Vital Signs Vitals Vital Signs Date Time Temp Pulse Resp B/P Pulse Ox O2 Delivery O2 Flow Rate FiO2 10/12/16 12:15 Nasal Cannula 4.0 10/12/16 12:00 141 10/12/16 11:45 31 137/103 99 10/12/16 11:30 30 10/12/16 08:00 99.2 Intake and Output 10/11/16 10/11/16 10/12/16 15:00 23:00 07:00 Intake Total 1293.160 ml 1400 ml 1050 ml Output Total 1345 ml 1205 ml 1115 ml Balance -51.840 ml 195 ml -65 ml Exam GENERAL: Well-developed, well-nourished male currently awake, agitated NECK: Supple. No mass, no thyromegaly. LUNGS: Diminished with scattered rhonchi bilaterally. HEART: Normal S1, S2. No murmurs, gallops, clicks, rubs noted. ABDOMEN: Round, soft, nondistended, nontender. Bowel sounds present. EXTREMITIES: No edema, clubbing, cyanosis. Pulses equal bilaterally 2+. SKIN: There is no rash. NEUROLOGIC: Awake, confused. Results Result Diagram: 10/12/16 0420 10/12/16 0420 Results 24 hrs Laboratory Tests Test 10/11/16 21:32 10/12/16 04:20 10/12/16 07:00 Anion Gap 11 10 Blood Urea Nitrogen 8 # 8 Calcium Level 7.7 L 7.9 L Carbon Dioxide Level 33 H 33 H Chloride Level 102 104 Creatinine 0.46 L 0.55 L Glucose Level 100 91 Magnesium Level 1.7 Potassium Level 3.7 3.7 Sodium Level 142 143 Basophils # 0.1 Basophils % 1.0 Blood Morphology Comment Differential Comment AUTO w/SCAN Eosinophils # 1.6 H Eosinophils % 25.9 H Hematocrit 36.6 L Hemoglobin 11.9 L Lymphocytes # 2.3 Lymphocytes % 36.7 Mean Corpuscular Hemoglobin 28.5 L Mean Corpuscular Hemoglobin Concent 32.5 Mean Corpuscular Volume 87.6 Mean Platelet Volume 10.1 Monocytes # 0.7 Monocytes % 11.0 Neutrophils # 1.6 Neutrophils % 25.4 L Nucleated Red Blood Cells # 0.0 Nucleated Red Blood Cells % 0.0 Platelet Count 337 Prealbumin 14.3 L Red Blood Count 4.18 L Red Cell Distribution Width 15.0 H White Blood Count 6.2 Arterial Blood HCO3 29.6 H Arterial Blood Base Excess 4.2 H Arterial Blood Oxygen Saturation 98.0 Sky Test ACCEPTAB Arterial Blood Gas Puncture Site Right Radial Arterial Blood Carboxyhemoglobin 0.3 Arterial Blood Date Drawn 10/12/2016 7:30:29 AM Arterial Blood Methemoglobin 0.3 Arterial Blood pCO2 (Temp correct) 47.7 H Arterial Blood pH (Temp corrected) 7.411 Arterial Blood pO2 (Temp corrected) 108.7 H Blood Gas A-a O2 Differential 49.2 H Blood Gas Actual Respiration Rate 17 Blood Gas Low PEEP Setting 5.0 Blood Gas Modality VENT - AC Blood Gas Notified Time 10/12/2016 7:55:10 AM Blood Gas Notified Whom JLD Blood Gas Respiration Rate 16.0 Blood Gas Specimen Source Blood arterial Blood Gas Temperature 37.0 Blood Gas Tidal Volume 500.0 FiO2 30.0 Oxyhemoglobin Percent 97.4 Total Hemoglobin 13.2 Medications Medications Current Medications Lorazepam (Ativan) 0.5 mg Q6H PRN IV ANXIETY Last administered on 10/12/16 07: 43; Admin Dose 0.5 MG; Start 09/15/16 at 18:00 Ondansetron HCl (Zofran Inj) 4 mg Q6H PRN IV NAUSEA AND/OR VOMITING; Start at 18:00 Morphine Sulfate (morphine) 2 mg Q4H PRN IV PAIN LEVEL 7-10 Last administered on 10/11/16 23:27; Admin Dose 2 MG; Start 09/15/16 at 18:00 Haloperidol 5 mg 5 mg Q6H PRN IM AGITATION Last administered on 09/19/16at 10: 40; Admin Dose 5 MG; Start 09/18/16 at 11:30 Propofol (Diprivan) 100 ml @ 2.478 mls/ hr Q12H IV Last administered on 09:02; Admin Dose 24.78 MLS/HR; Start 09/19/16 at 13:30 Famotidine (Pepcid Iv) 20 mg BID IV Last administered on 10/12/16 09:04; Admin Dose 20 MG; Start 09/19/16 at 21:00 Metoclopramide HCl 10 mg 10 mg Q12 IV Last administered on 10/12/16 09:04; Admin Dose 10 MG; Start 09/24/16 at 11:30 Midazolam HCl/ Dextrose (Versed/D5W) 50 ml @ 2 mls/hr TITRATE IV Last administered on 10/08/16 02:04; Admin Dose 7 MLS/HR; Start 09/25/16 at 12:00; Status Future Hold Acetaminophen (Tylenol Liquid) 650 mg Q4H PRN NGT PAIN AND OR ELEVATED TEMP Last administered on 10/10/16 03:47; Admin Dose 650 MG; Start 09/28/16 at 13:30 Enoxaparin Sodium (Lovenox) 100 mg Q12 SC Last administered on 10/12/16 09:05 ; Admin Dose 100 MG; Start 10/01/16 at 21:00; Status Future hold Lisinopril 2.5 mg 2.5 mg DAILY GTB Last administered on 10/03/16 08:43; Admin Dose 2.5 MG; Start 10/02/16 at 09:00 Meropenem/Sodium Chloride (Merrem/NS) 100 ml @ 200 mls/hr Q12 IVPB Last administered on 10/12/16 09:01; Admin Dose 200 MLS/HR; Start 10/08/16 at 18:30 Collagenase (Santyl) 1 applic DAILY TOP Last administered on 10/11/16 14:52; Admin Dose 1 APPLIC; Start 10/08/16 at 20:00 Nystatin (Nystatin Powder) 1 applic BID TOP Last administered on 10/12/16 09: 05; Admin Dose 1 APPLIC; Start 10/08/16 at 21:00 Collagenase 1 applic 1 applic PRN PRN TOP WOUND CARE Last administered on 07:54; Admin Dose 1 APPLIC; Start 10/08/16 at 17:30 Norepinephrine 16 mg/Dextrose 500 ml @ 1.87 mls/hr TITRATE IV ; Start 10/10/16 at 16:00 Potassium Chloride/Dextrose/ Sod Cl 1,000 ml @ 50 mls/hr Q20H IV Last administered on 10/12/16 10:12; Admin Dose 50 MLS/HR; Start 10/11/16 at 12:30 Fentanyl/Dextrose (D5W) 100 ml @ 2.5 mls/hr TITRATE IV Last administered on 05:06; Admin Dose 10 MLS/HR; Start 10/11/16 at 18:00 JAN ZHANG Oct 12, 2016 13:21
[2016-10-12 13:36] LABS: AADO2 Arterial 581.7 mmHg (7.0-24.0); Allen Test ACCEPTAB; Arterial Base Excess 2.5 mmol/L (-3.0-3); Arterial COHb 0.2 % (0.0-3.0); Arterial Fraction of Oxyhgb 95.4 % (93.0-99.0); Arterial HCO3 28.4 mmol/L (22.0-26.0); Arterial MetHb 0.2 % (0.0-1.5); Arterial Total Hemglobin 14.1 g/dl (12.0-18.0); MODE MASK - NRB
--- NOTE | 2016-10-12 13:59 | CONS ---
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 Continue anticoagulation if no contraindication Consultation Date/Type/Reason Admit Date/Time Sep 15, 2016 at 16:54 Initial Consult Date 09/29/16 Type of Consultation: cv Referring Provider: JAN ZHANG 24 HR Interval Summary Free Text/Dictation Patient seen and examined, undergoing weaning trials Exam/Review of Systems Vital Signs Vitals Vital Signs Date Time Temp Pulse Resp B/P Pulse Ox O2 Delivery O2 Flow Rate FiO2 10/12/16 12:15 Nasal Cannula 4.0 10/12/16 12:00 141 10/12/16 11:45 31 137/103 99 10/12/16 11:30 30 10/12/16 08:00 99.2 Intake and Output 10/11/16 10/11/16 10/12/16 15:00 23:00 07:00 Intake Total 1293.160 ml 1400 ml 1050 ml Output Total 1345 ml 1205 ml 1115 ml Balance -51.840 ml 195 ml -65 ml Exam Sedated, no apparent distress Head: normocephalic ENMT: intubated Respiratory: other (course breath sounds bilaterally, no wheezing) Cardiovascular: other (s1s2), regular rate and rhythm Gastrointestinal: bowel sounds, non-tender, soft (S1) Extremities: edema Results Result Diagram: 10/12/16 0420 10/12/16 0420 Results 24 hrs Laboratory Tests Test 10/11/16 21:32 10/12/16 04:20 10/12/16 07:00 10/12/16 13:15 Anion Gap 11 10 Blood Urea Nitrogen 8 # 8 Calcium Level 7.7 L 7.9 L Carbon Dioxide Level 33 H 33 H Chloride Level 102 104 Creatinine 0.46 L 0.55 L Glucose Level 100 91 Magnesium Level 1.7 Potassium Level 3.7 3.7 Sodium Level 142 143 Basophils # 0.1 Basophils % 1.0 Blood Morphology Comment Differential Comment AUTO w/SCAN Eosinophils # 1.6 H Eosinophils % 25.9 H Hematocrit 36.6 L Hemoglobin 11.9 L Lymphocytes # 2.3 Lymphocytes % 36.7 Mean Corpuscular Hemoglobin 28.5 L Mean Corpuscular Hemoglobin Concent 32.5 Mean Corpuscular Volume 87.6 Mean Platelet Volume 10.1 Monocytes # 0.7 Monocytes % 11.0 Neutrophils # 1.6 Neutrophils % 25.4 L Nucleated Red Blood Cells # 0.0 Nucleated Red Blood Cells % 0.0 Platelet Count 337 Prealbumin 14.3 L Red Blood Count 4.18 L Red Cell Distribution Width 15.0 H White Blood Count 6.2 Arterial Blood HCO3 29.6 H 28.4 H Arterial Blood Base Excess 4.2 H 2.5 Arterial Blood Oxygen Saturation 98.0 95.8 Sky Test ACCEPTAB ACCEPTAB Arterial Blood Gas Puncture Site Right Radial Right Radial Arterial Blood Carboxyhemoglobin 0.3 0.2 Arterial Blood Date Drawn 10/12/2016 7:30:29 AM 10/12/2016 1:20:40 PM Arterial Blood Methemoglobin 0.3 0.2 Arterial Blood pCO2 (Temp correct) 47.7 H 48.8 H Arterial Blood pH (Temp corrected) 7.411 7.383 Arterial Blood pO2 (Temp corrected) 108.7 H 82.5 Blood Gas A-a O2 Differential 49.2 H 581.7 H Blood Gas Actual Respiration Rate 17 Blood Gas Low PEEP Setting 5.0 Blood Gas Modality VENT - AC MASK - NRB Blood Gas Notified Time 10/12/2016 7:55:10 AM 10/12/2016 1:36:12 PM Blood Gas Notified Whom JLD JLD Blood Gas Respiration Rate 16.0 Blood Gas Specimen Source Blood arterial Blood arterial Blood Gas Temperature 37.0 37.0 Blood Gas Tidal Volume 500.0 FiO2 30.0 100.0 Oxyhemoglobin Percent 97.4 95.4 Total Hemoglobin 13.2 14.1 Medications Medications Current Medications Lorazepam (Ativan) 0.5 mg Q6H PRN IV ANXIETY Last administered on 10/12/16 07: 43; Admin Dose 0.5 MG; Start 09/15/16 at 18:00 Ondansetron HCl (Zofran Inj) 4 mg Q6H PRN IV NAUSEA AND/OR VOMITING; Start at 18:00 Morphine Sulfate (morphine) 2 mg Q4H PRN IV PAIN LEVEL 7-10 Last administered on 10/11/16 23:27; Admin Dose 2 MG; Start 09/15/16 at 18:00 Haloperidol 5 mg 5 mg Q6H PRN IM AGITATION Last administered on 09/19/16at 10: 40; Admin Dose 5 MG; Start 09/18/16 at 11:30 Propofol (Diprivan) 100 ml @ 2.478 mls/ hr Q12H IV Last administered on 09:02; Admin Dose 24.78 MLS/HR; Start 09/19/16 at 13:30 Famotidine (Pepcid Iv) 20 mg BID IV Last administered on 10/12/16 09:04; Admin Dose 20 MG; Start 09/19/16 at 21:00 Metoclopramide HCl 10 mg 10 mg Q12 IV Last administered on 10/12/16 09:04; Admin Dose 10 MG; Start 09/24/16 at 11:30 Midazolam HCl/ Dextrose (Versed/D5W) 50 ml @ 2 mls/hr TITRATE IV Last administered on 10/08/16 02:04; Admin Dose 7 MLS/HR; Start 09/25/16 at 12:00; Status Future Hold Acetaminophen (Tylenol Liquid) 650 mg Q4H PRN NGT PAIN AND OR ELEVATED TEMP Last administered on 10/10/16 03:47; Admin Dose 650 MG; Start 09/28/16 at 13:30 Enoxaparin Sodium (Lovenox) 100 mg Q12 SC Last administered on 10/12/16 09:05 ; Admin Dose 100 MG; Start 10/01/16 at 21:00; Status Future hold Lisinopril 2.5 mg 2.5 mg DAILY GTB Last administered on 10/03/16 08:43; Admin Dose 2.5 MG; Start 10/02/16 at 09:00 Meropenem/Sodium Chloride (Merrem/NS) 100 ml @ 200 mls/hr Q12 IVPB Last administered on 10/12/16 09:01; Admin Dose 200 MLS/HR; Start 10/08/16 at 18:30 Collagenase (Santyl) 1 applic DAILY TOP Last administered on 10/11/16 14:52; Admin Dose 1 APPLIC; Start 10/08/16 at 20:00 Nystatin (Nystatin Powder) 1 applic BID TOP Last administered on 10/12/16 09: 05; Admin Dose 1 APPLIC; Start 10/08/16 at 21:00 Collagenase 1 applic 1 applic PRN PRN TOP WOUND CARE Last administered on 07:54; Admin Dose 1 APPLIC; Start 10/08/16 at 17:30 Norepinephrine 16 mg/Dextrose 500 ml @ 1.87 mls/hr TITRATE IV ; Start 10/10/16 at 16:00 Potassium Chloride/Dextrose/ Sod Cl 1,000 ml @ 50 mls/hr Q20H IV Last administered on 10/12/16 10:12; Admin Dose 50 MLS/HR; Start 10/11/16 at 12:30 Fentanyl/Dextrose (D5W) 100 ml @ 2.5 mls/hr TITRATE IV Last administered on 05:06; Admin Dose 10 MLS/HR; Start 10/11/16 at 18:00 Nikolay Luna DO Oct 12, 2016 13:59
--- NOTE | 2016-10-12 14:04 | CONS ---
Date/Time of Note Date/Time of Note DATE: 10/12/16 TIME: 14:02 Consultation Date/Type/Reason Admit Date/Time Sep 15, 2016 at 16:54 Initial Consult Date 09/29/16 Type of Consultation: cv Referring Provider: JAN ZHANG 24 HR Interval Summary Free Text/Dictation Patient was extubated about hour and a half ago and was doing fairly well the patient was put on CPAP mode for half an hour prior to extubation according to the patient endotracheal tube was greatly bothering him and that precluded leaving him on CPAP mode for anything to be referring the patient was successfully extubated was doing fairly well however according to protocol from the nurse the patient is not getting extremely agitated diaphoretic and is getting more tachypneic and tachycardic and was requiring 100% nonrebreather mask for O2 saturation maintenance the patient was immediately attended to at bedside and was evaluated again it was decided to reintubate him patient was given etomidate 20 mg IV push followed by succinylcholine 80 mg IV push followed by oral intubation which was readily achieved by using a 7.5 endotracheal tube cords were directly visualized prior to intubation and placement was confirmed by monitoring end-tidal CO2 chest x-ray stat has been ordered the patient likely would need to have a tracheostomy performed and to be re-sedated with combination of propofol and fentanyl drips gnosis remains very poor because of already prolonged mechanical ventilation drug abuse cardia myopathy and failure to be weaned off from mechanical ventilation. Exam/Review of Systems Vital Signs Vitals Vital Signs Date Time Temp Pulse Resp B/P Pulse Ox O2 Delivery O2 Flow Rate FiO2 10/12/16 12:15 Nasal Cannula 4.0 10/12/16 12:00 141 10/12/16 11:45 31 137/103 99 10/12/16 11:30 30 10/12/16 08:00 99.2 Intake and Output 10/11/16 10/11/16 10/12/16 15:00 23:00 07:00 Intake Total 1293.160 ml 1400 ml 1050 ml Output Total 1345 ml 1205 ml 1115 ml Balance -51.840 ml 195 ml -65 ml Results Result Diagram: 10/12/16 0420 10/12/16 0420 Results 24 hrs Laboratory Tests Test 10/11/16 21:32 10/12/16 04:20 10/12/16 07:00 10/12/16 13:15 Anion Gap 11 10 Blood Urea Nitrogen 8 # 8 Calcium Level 7.7 L 7.9 L Carbon Dioxide Level 33 H 33 H Chloride Level 102 104 Creatinine 0.46 L 0.55 L Glucose Level 100 91 Magnesium Level 1.7 Potassium Level 3.7 3.7 Sodium Level 142 143 Basophils # 0.1 Basophils % 1.0 Blood Morphology Comment Differential Comment AUTO w/SCAN Eosinophils # 1.6 H Eosinophils % 25.9 H Hematocrit 36.6 L Hemoglobin 11.9 L Lymphocytes # 2.3 Lymphocytes % 36.7 Mean Corpuscular Hemoglobin 28.5 L Mean Corpuscular Hemoglobin Concent 32.5 Mean Corpuscular Volume 87.6 Mean Platelet Volume 10.1 Monocytes # 0.7 Monocytes % 11.0 Neutrophils # 1.6 Neutrophils % 25.4 L Nucleated Red Blood Cells # 0.0 Nucleated Red Blood Cells % 0.0 Platelet Count 337 Prealbumin 14.3 L Red Blood Count 4.18 L Red Cell Distribution Width 15.0 H White Blood Count 6.2 Arterial Blood HCO3 29.6 H 28.4 H Arterial Blood Base Excess 4.2 H 2.5 Arterial Blood Oxygen Saturation 98.0 95.8 Sky Test ACCEPTAB ACCEPTAB Arterial Blood Gas Puncture Site Right Radial Right Radial Arterial Blood Carboxyhemoglobin 0.3 0.2 Arterial Blood Date Drawn 10/12/2016 7:30:29 AM 10/12/2016 1:20:40 PM Arterial Blood Methemoglobin 0.3 0.2 Arterial Blood pCO2 (Temp correct) 47.7 H 48.8 H Arterial Blood pH (Temp corrected) 7.411 7.383 Arterial Blood pO2 (Temp corrected) 108.7 H 82.5 Blood Gas A-a O2 Differential 49.2 H 581.7 H Blood Gas Actual Respiration Rate 17 Blood Gas Low PEEP Setting 5.0 Blood Gas Modality VENT - AC MASK - NRB Blood Gas Notified Time 10/12/2016 7:55:10 AM 10/12/2016 1:36:12 PM Blood Gas Notified Whom NANCY CRUZ Blood Gas Respiration Rate 16.0 Blood Gas Specimen Source Blood arterial Blood arterial Blood Gas Temperature 37.0 37.0 Blood Gas Tidal Volume 500.0 FiO2 30.0 100.0 Oxyhemoglobin Percent 97.4 95.4 Total Hemoglobin 13.2 14.1 Medications Medications Current Medications Lorazepam (Ativan) 0.5 mg Q6H PRN IV ANXIETY Last administered on 10/12/16 07: 43; Admin Dose 0.5 MG; Start 09/15/16 at 18:00 Ondansetron HCl (Zofran Inj) 4 mg Q6H PRN IV NAUSEA AND/OR VOMITING; Start at 18:00 Morphine Sulfate (morphine) 2 mg Q4H PRN IV PAIN LEVEL 7-10 Last administered on 10/11/16 23:27; Admin Dose 2 MG; Start 09/15/16 at 18:00 Haloperidol 5 mg 5 mg Q6H PRN IM AGITATION Last administered on 09/19/16at 10: 40; Admin Dose 5 MG; Start 09/18/16 at 11:30 Propofol (Diprivan) 100 ml @ 2.478 mls/ hr Q12H IV Last administered on 09:02; Admin Dose 24.78 MLS/HR; Start 09/19/16 at 13:30 Famotidine (Pepcid Iv) 20 mg BID IV Last administered on 10/12/16 09:04; Admin Dose 20 MG; Start 09/19/16 at 21:00 Metoclopramide HCl 10 mg 10 mg Q12 IV Last administered on 10/12/16 09:04; Admin Dose 10 MG; Start 09/24/16 at 11:30 Midazolam HCl/ Dextrose (Versed/D5W) 50 ml @ 2 mls/hr TITRATE IV Last administered on 10/08/16 02:04; Admin Dose 7 MLS/HR; Start 09/25/16 at 12:00; Status Future Hold Acetaminophen (Tylenol Liquid) 650 mg Q4H PRN NGT PAIN AND OR ELEVATED TEMP Last administered on 10/10/16 03:47; Admin Dose 650 MG; Start 09/28/16 at 13:30 Enoxaparin Sodium (Lovenox) 100 mg Q12 SC Last administered on 10/12/16 09:05 ; Admin Dose 100 MG; Start 10/01/16 at 21:00; Status Future hold Lisinopril 2.5 mg 2.5 mg DAILY GTB Last administered on 10/03/16 08:43; Admin Dose 2.5 MG; Start 10/02/16 at 09:00 Meropenem/Sodium Chloride (Merrem/NS) 100 ml @ 200 mls/hr Q12 IVPB Last administered on 10/12/16 09:01; Admin Dose 200 MLS/HR; Start 10/08/16 at 18:30 Collagenase (Santyl) 1 applic DAILY TOP Last administered on 10/11/16 14:52; Admin Dose 1 APPLIC; Start 10/08/16 at 20:00 Nystatin (Nystatin Powder) 1 applic BID TOP Last administered on 10/12/16 09: 05; Admin Dose 1 APPLIC; Start 10/08/16 at 21:00 Collagenase 1 applic 1 applic PRN PRN TOP WOUND CARE Last administered on 07:54; Admin Dose 1 APPLIC; Start 10/08/16 at 17:30 Norepinephrine 16 mg/Dextrose 500 ml @ 1.87 mls/hr TITRATE IV ; Start 10/10/16 at 16:00 Potassium Chloride/Dextrose/ Sod Cl 1,000 ml @ 50 mls/hr Q20H IV Last administered on 10/12/16 10:12; Admin Dose 50 MLS/HR; Start 10/11/16 at 12:30 Fentanyl/Dextrose (D5W) 100 ml @ 2.5 mls/hr TITRATE IV Last administered on 05:06; Admin Dose 10 MLS/HR; Start 10/11/16 at 18:00 ILYA HILL Oct 12, 2016 14:04
--- NOTE | 2016-10-12 15:01 | RADRPT ---
PROCEDURE: XR Chest. CLINICAL INDICATION: Shortness of breath. Reintubation. TECHNIQUE: Single AP portable chest. COMPARISON: 10/12/2016. FINDINGS: The cardiomediastinal silhouette is within normal limits. Endotracheal tube tip below 7 cm above the ida. The NG tube is in stable position. Stable position of the right chest tube and left subcl jimy central venous catheter. No residual or recurrent pneumothorax. . Patchy bilateral air space disease and vascular congestion. Blunting of the costophrenic angles s uggesting small pleural effusions. The osseous structures and soft tissues are unremarkable. IMPRESSION: Bilateral air space disease and/or vascular congestion with small pleural effusions suggestive of CH F. The support devices as described in detail above. RPTAT:AAJJ Mitali Baldwin Physician Date Time Electronically viewed and signed by Physician Glenis on 10/12/2016 15:00 VITO/
[2016-10-12 15:10] LABS: AADO2 Arterial 340.4 mmHg (7.0-24.0); Allen Test ACCEPTAB; Arterial Base Excess 1.5 mmol/L (-3.0-3); Arterial COHb 0.2 % (0.0-3.0); Arterial Fraction of Oxyhgb 98.9 % (93.0-99.0); Arterial HCO3 27.2 mmol/L (22.0-26.0); Arterial MetHb 0.4 % (0.0-1.5); Arterial Total Hemglobin 13.9 g/dl (12.0-18.0); MODE VENT - AC
--- NOTE | 2016-10-12 16:17 | PN ---
Date/Time of Note Date/Time of Note DATE: 10/12/16 TIME: 16:17 Assessment/Plan Lines/Catheters IV Catheter Type (from Nrsg): Central Line Tang in Place (from Nrsg): Yes Assessment/Plan Chief Complaint/Hosp Course IMPRESSION 1. Pulmonary embolism. 2. Pneumonia. 3 Pleural effusion RECOMMENDATIONS: CT [address] placement will continue CT sxn Problems: Subjective 24 Hr Interval Summary Constitutional: improved Pain Control: mild Exam/Review of Systems Vital Signs Vitals Vital Signs Date Time Temp Pulse Resp B/P Pulse Ox O2 Delivery O2 Flow Rate FiO2 10/12/16 14:00 123 30 98 100 10/12/16 12:15 Nasal Cannula 4.0 10/12/16 11:45 137/103 10/12/16 08:00 99.2 Intake and Output 10/11/16 10/11/16 10/12/16 15:00 23:00 07:00 Intake Total 1293.160 ml 1400 ml 1050 ml Output Total 1345 ml 1205 ml 1115 ml Balance -51.840 ml 195 ml -65 ml Exam ENMT: mucosa pink and moist, nl external ears & nose, nl lips & teeth, nl nasal mucosa & septum Neck: non-tender, supple Respiratory: clear to auscultation, normal air movement Cardiovascular: nl pulses, regular rate and rhythm Results Result Diagram: 10/12/1641910/12/16419 YOUNG HAY MD Oct 12, 2016 16:17
--- NOTE | 2016-10-12 17:34 | CONS ---
Date/Time of Note Date/Time of Note DATE: 10/12/16 TIME: 17:32 Assessment/Plan Assessment/Plan Chief Complaint/Hosp Course - Sepsis d/t PNA with parapneumonic effusion. - PNA with parapneumonic effusion. Could be started as CAP, other considerations include aspiration PNA - recurrent right pleural effusion. s/p diagnostic thoracentesis on 09/22/16. It showed glu=74 pro <2, [id number]. No malignancy on cytology. s/p repeat thoracentesis 10/01/16. Again, no malignancy on cytology. Right chest tube placed 10/07/16. - recurrent fever, ? 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 Acute hepatitis panel negative - rash, likely drug rash possibly d/t pip/tazo - mild leukopenia - resolved - s/p hyperkalemia and hypokalemia - s/p hyponatremia and hypernatremia - s/p lactic acidosis - s/p Vanco (09/19/16-10/04/16), azithromycin (10/02/16-10/06/16), pip/tazo (-10/08/16), Tamiflu (10/02/16-10/08/16) - Negative rapid influenza screen, PPD, legionella antigen, mycoplasma pneumoniae, chlamydia pneumoniae serology, and respiratory viral panel; AFB smear negative (09/29, 09/30 & 10/01) Recommendations: - continue meropenem (10/08/16-) - f/u repeat procalcitonin (pending) and respiratory/endotracheal culture ( pending) - f/u blood and urine cultures (negative to date) - f/u pleural fluid for gram stain, culture, AFB, fungal culture (pending) - monitor rash (improving) Problems: Consultation Date/Type/Reason Admit Date/Time Sep 15, 2016 at 16:54 Initial Consult Date 09/29/16 Type of Consultation: id Referring Provider: JAN ZHANG 24 HR Interval Summary Free Text/Dictation improving on abx Exam/Review of Systems Vital Signs Vitals Vital Signs Date Time Temp Pulse Resp B/P Pulse Ox O2 Delivery O2 Flow Rate FiO2 10/12/16 17:20 114 31 100 100 10/12/16 13:45 Non Rebreather 15.0 10/12/16 11:45 137/103 10/12/16 08:00 99.2 Intake and Output 10/11/16 10/11/16 10/12/16 15:00 23:00 07:00 Intake Total 1293.160 ml 1400 ml 1050 ml Output Total 1345 ml 1205 ml 1115 ml Balance -51.840 ml 195 ml -65 ml Exam Constitutional: alert, oriented, well developed Head: atraumatic, normocephalic ENMT: nl external ears & nose, nl lips & teeth, nl nasal mucosa & septum Respiratory: diminished breath sounds, normal air movement Cardiovascular: nl pulses, regular rate and rhythm Results Result Diagram: 10/12/16 0420 10/12/16 0420 Results 24 hrs Laboratory Tests Test 10/11/16 21:32 10/12/16 04:20 10/12/16 07:00 10/12/16 13:15 Anion Gap 11 10 Blood Urea Nitrogen 8 # 8 Calcium Level 7.7 L 7.9 L Carbon Dioxide Level 33 H 33 H Chloride Level 102 104 Creatinine 0.46 L 0.55 L Glucose Level 100 91 Magnesium Level 1.7 Potassium Level 3.7 3.7 Sodium Level 142 143 Basophils # 0.1 Basophils % 1.0 Blood Morphology Comment Differential Comment AUTO w/SCAN Eosinophils # 1.6 H Eosinophils % 25.9 H Hematocrit 36.6 L Hemoglobin 11.9 L Lymphocytes # 2.3 Lymphocytes % 36.7 Mean Corpuscular Hemoglobin 28.5 L Mean Corpuscular Hemoglobin Concent 32.5 Mean Corpuscular Volume 87.6 Mean Platelet Volume 10.1 Monocytes # 0.7 Monocytes % 11.0 Neutrophils # 1.6 Neutrophils % 25.4 L Nucleated Red Blood Cells # 0.0 Nucleated Red Blood Cells % 0.0 Platelet Count 337 Prealbumin 14.3 L Red Blood Count 4.18 L Red Cell Distribution Width 15.0 H White Blood Count 6.2 Arterial Blood HCO3 29.6 H 28.4 H Arterial Blood Base Excess 4.2 H 2.5 Arterial Blood Oxygen Saturation 98.0 95.8 Sky Test ACCEPTAB ACCEPTAB Arterial Blood Gas Puncture Site Right Radial Right Radial Arterial Blood Carboxyhemoglobin 0.3 0.2 Arterial Blood Date Drawn 10/12/2016 7:30:29 AM 10/12/2016 1:20:40 PM Arterial Blood Methemoglobin 0.3 0.2 Arterial Blood pCO2 (Temp correct) 47.7 H 48.8 H Arterial Blood pH (Temp corrected) 7.411 7.383 Arterial Blood pO2 (Temp corrected) 108.7 H 82.5 Blood Gas A-a O2 Differential 49.2 H 581.7 H Blood Gas Actual Respiration Rate 17 Blood Gas Low PEEP Setting 5.0 Blood Gas Modality VENT - AC MASK - NRB Blood Gas Notified Time 10/12/2016 7:55:10 AM 10/12/2016 1:36:12 PM Blood Gas Notified Whom JLD JLD Blood Gas Respiration Rate 16.0 Blood Gas Specimen Source Blood arterial Blood arterial Blood Gas Temperature 37.0 37.0 Blood Gas Tidal Volume 500.0 FiO2 30.0 100.0 Oxyhemoglobin Percent 97.4 95.4 Total Hemoglobin 13.2 14.1 Test 10/12/16 14:50 Arterial Blood HCO3 27.2 H Arterial Blood Base Excess 1.5 Arterial Blood Oxygen Saturation 99.5 H Syk Test ACCEPTAB Arterial Blood Gas Puncture Site Right Radial Arterial Blood Carboxyhemoglobin 0.2 Arterial Blood Date Drawn 10/12/2016 2:56:56 PM Arterial Blood Methemoglobin 0.4 Arterial Blood pCO2 (Temp correct) 46.8 H Arterial Blood pH (Temp corrected) 7.382 Arterial Blood pO2 (Temp corrected) 325.8 H Blood Gas A-a O2 Differential 340.4 H Blood Gas Actual Respiration Rate 25 Blood Gas Low PEEP Setting 5.0 Blood Gas Modality VENT - AC Blood Gas Notified Time 10/12/2016 3:09:50 PM Blood Gas Notified Whom JLD Blood Gas Respiration Rate 16.0 Blood Gas Specimen Source Blood arterial Blood Gas Temperature 37.0 Blood Gas Tidal Volume 500.0 FiO2 100.0 Oxyhemoglobin Percent 98.9 Total Hemoglobin 13.9 Medications Medications Current Medications Lorazepam (Ativan) 0.5 mg Q6H PRN IV ANXIETY Last administered on 10/12/16t 07: 43; Admin Dose 0.5 MG; Start 09/15/16 at 18:00 Ondansetron HCl (Zofran Inj) 4 mg Q6H PRN IV NAUSEA AND/OR VOMITING; Start at 18:00 Morphine Sulfate (morphine) 2 mg Q4H PRN IV PAIN LEVEL 7-10 Last administered on 10/11/16 23:27; Admin Dose 2 MG; Start 09/15/16 at 18:00 Haloperidol 5 mg 5 mg Q6H PRN IM AGITATION Last administered on 09/19/16at 10: 40; Admin Dose 5 MG; Start 09/18/16 at 11:30 Propofol (Diprivan) 100 ml @ 2.478 mls/ hr Q12H IV Last administered on 09:02; Admin Dose 24.78 MLS/HR; Start 09/19/16 at 13:30 Famotidine (Pepcid Iv) 20 mg BID IV Last administered on 10/12/16 09:04; Admin Dose 20 MG; Start 09/19/16 at 21:00 Metoclopramide HCl 10 mg 10 mg Q12 IV Last administered on 10/12/16 09:04; Admin Dose 10 MG; Start 09/24/16 at 11:30 Midazolam HCl/ Dextrose (Versed/D5W) 50 ml @ 2 mls/hr TITRATE IV Last administered on 10/08/16 02:04; Admin Dose 7 MLS/HR; Start 09/25/16 at 12:00; Status Future Hold Acetaminophen (Tylenol Liquid) 650 mg Q4H PRN NGT PAIN AND OR ELEVATED TEMP Last administered on 10/10/16 03:47; Admin Dose 650 MG; Start 09/28/16 at 13:30 Enoxaparin Sodium (Lovenox) 100 mg Q12 SC Last administered on 10/12/16 09:05 ; Admin Dose 100 MG; Start 10/01/16 at 21:00; Status Future hold Lisinopril 2.5 mg 2.5 mg DAILY GTB Last administered on 10/03/16 08:43; Admin Dose 2.5 MG; Start 10/02/16 at 09:00 Meropenem/Sodium Chloride (Merrem/NS) 100 ml @ 200 mls/hr Q12 IVPB Last administered on 10/12/16 09:01; Admin Dose 200 MLS/HR; Start 10/08/16 at 18:30 Collagenase (Santyl) 1 applic DAILY TOP Last administered on 10/11/16 14:52; Admin Dose 1 APPLIC; Start 10/08/16 at 20:00 Nystatin (Nystatin Powder) 1 applic BID TOP Last administered on 10/12/16 09: 05; Admin Dose 1 APPLIC; Start 10/08/16 at 21:00 Collagenase 1 applic 1 applic PRN PRN TOP WOUND CARE Last administered on 07:54; Admin Dose 1 APPLIC; Start 10/08/16 at 17:30 Norepinephrine 16 mg/Dextrose 500 ml @ 1.87 mls/hr TITRATE IV ; Start 10/10/16 at 16:00 Potassium Chloride/Dextrose/ Sod Cl 1,000 ml @ 50 mls/hr Q20H IV Last administered on 10/12/16 10:12; Admin Dose 50 MLS/HR; Start 10/11/16 at 12:30 Fentanyl/Dextrose (D5W) 100 ml @ 2.5 mls/hr TITRATE IV Last administered on 05:06; Admin Dose 10 MLS/HR; Start 10/11/16 at 18:00 DYLLAN PULIDO MD Oct 12, 2016 17:33
[2016-10-12] MEDS: MIDAZOLAM 50 MG in DEXTROSE 5% 40 ML IV SCH (23:24)
[2016-10-13] VITALS (59 sets, daily range): BP systolic 76–130; BP diastolic 45–103; PULSE 68–131; RESP 13–29
[2016-10-13] MEDS: PROPOFOL 100 ML IV SCH (02:22)
[2016-10-13] MEDS: MIDAZOLAM 50 MG in DEXTROSE 5% 40 ML IV SCH ×3 (04:21→23:53)
[2016-10-13] MEDS: D5-NS + KCL 20 MEQ 1,000 ML IV SCH ×2 (04:30→07:00)
[2016-10-13 05:52] LABS: BASOPHIL # 0.1 10^3/ul (0.0-0.1); BASOPHILS % 0.8 % (0.0-2.0); EOSINOPHILS % 14.6 % (0.0-7.0); HEMATOCRIT 35.2 % (42.0-52.0); HEMOGLOBIN 11.4 g/dl (14.0-18.0); LYMPHOCYTES # 1.9 10^3/ul (0.8-2.9); LYMPHOCYTES % 27.8 % (15.0-51.0); MEAN CORPUSCULAR HEMOGLOBIN 28.5 pg (29.0-33.0); MEAN CORPUSCULAR HGB CONC 32.3 g/dl (32.0-37.0); MEAN PLATELET VOLUME 10.5 fl (7.4-10.4); MONOCYTES % 14.6 % (0.0-11.0); NEUTROPHIL # 2.9 10^3/ul (1.6-7.5); NEUTROPHILS % 42.2 % (39.0-77.0); PLATELET COUNT 311 10^3/UL (140-440); RED BLOOD COUNT 3.99 10^6/ul (4.70-6.10); RED CELL DISTRIBUTION WIDTH 14.9 % (11.5-14.5); UNCORRECTED WBC 6.8 10^3/ul (4.8-10.8); WHITE BLOOD COUNT 6.8 10^3/ul (4.8-10.8)
[2016-10-13 05:55] LABS: CONDITION 1; LH ANALYZER COMMENTS 1
[2016-10-13 05:58] LABS: POTASSIUM 3.6 mmol/L (3.5-5.1)
[2016-10-13 06:01] LABS: CREATININE 0.5 mg/dl (0.61-1.24)
[2016-10-13] MEDS: METOCLOPRAMIDE 10 MG INJ IV SCH ×2 (08:00→20:58)
[2016-10-13] MEDS: LISINOPRIL 5 MG TAB GTB SCH (08:00)
[2016-10-13] MEDS: FAMOTIDINE 20 MG INJ IV SCH ×2 (08:00→20:58)
[2016-10-13] MEDS: MEROPENEM 1 GM in SOD CHLORIDE 0.9% 100 ML IVPB SCH ×2 (08:00→20:58)
[2016-10-13] MEDS: COLLAGENASE 30 GM TUBE TOP SCH (08:01)
[2016-10-13] MEDS: NYSTATIN 30 GM POWDER BTL TOP SCH ×2 (08:01→20:59)
[2016-10-13] MEDS: ENOXAPARIN 100 MG/ML SYG SC SCH (08:02)
--- NOTE | 2016-10-13 09:14 | CONS ---
Date/Time of Note Date/Time of Note DATE: 10/13/16 TIME: 09:09 Assessment/Plan Assessment/Plan Additional Assessment/Plan Assessment and plan; 1. Patient admitted with pneumonia requiring mechanical ventilation as well as a chest tube due to empyema status post VATS and decortication. 2. Prolonged mechanical ventilation over 3 weeks now patient failed extubation trial yesterday requiring reintubation within 2 hours. Next 3. Patient likely exhibiting some element of drug withdrawal. Next 4. Currently on high-dose fentanyl drip according to the feeding nurse as soon as the dose is decreased the patient started getting extremely agitated. Next Recommendations: 1: patient will need to have a tracheostomy performed his sister is on his way him to have a family meeting with them and the family is agreeable we will proceed with tracheostomy and PEG tube placement. 2. Decrease fentanyl dose to 50 mcg/h and increase Versed for sedation. Prognosis remains guarded. Consultation Date/Type/Reason Admit Date/Time Sep 15, 2016 at 16:54 Initial Consult Date 09/29/16 Type of Consultation: id Referring Provider: JAN ZHANG 24 HR Interval Summary Free Text/Dictation Patient's condition remains critical the patient was given a sedation vacation yesterday patient became completely awake alert was following simple commands and was put on CPAP mode for at least 30 minutes but according to the patient endotracheal tube was greatly bothering him and the patient started complaining quite severely and that did not allow us enough time to perform CPAP ABG the patient however was extubated was very well for at least 2 or 3 hours but then became extremely diaphoretic tachypneic hypoxemic and was reintubated by myself at bedside without difficulty currently the patient is sedated on mechanical ventilation again and put back on prior previous ventilator settings he has remained hemodynamically stable. Exam/Review of Systems Vital Signs Vitals Vital Signs Date Time Temp Pulse Resp B/P Pulse Ox O2 Delivery O2 Flow Rate FiO2 10/13/16 08:00 98.9 83 16 86/62 99 Mechanical Ventilator 10/13/16 08:00 40 10/12/16 13:45 15.0 Intake and Output 10/12/16 10/12/16 10/13/16 15:00 23:00 07:00 Intake Total 793 ml 1017.0 ml 999 ml Output Total 635 ml 1055 ml 685 ml Balance 158 ml -38.0 ml 314 ml Exam HEENT examination; supple neck, or intubated, no neck masses, no lymphadenopathy , no thyromegaly, no neck bruits, dentition is fair. There was a midsize reactive to light. Chest examination; right-sided chest tube is in place without any air leak in the Pleur-evac chamber. Not much fluid drainage over the last 48 hours. Lungs are clear to auscultation. S1-S2 audible no murmurs. Regular rate and rhythm. Abdomen examination; soft, nondistended, no organomegaly, bowel sounds audible. Extremity examination; no peripheral edema, pulses 2+ bilaterally. PRODUCTION SAMPLER examination; patient currently is sedated. Prior to after extubated extubation yesterday the patient had good mental status and was following all 4 extremities on command. Currently sedated. Results Result Diagram: 10/13/16 0340 10/13/16 0340 Results 24 hrs Laboratory Tests Test 10/12/16 13:15 10/12/16 14:50 10/13/16 03:40 Arterial Blood HCO3 28.4 H 27.2 H Arterial Blood Base Excess 2.5 1.5 Arterial Blood Oxygen Saturation 95.8 99.5 H Sky Test ACCEPTAB ACCEPTAB Arterial Blood Gas Puncture Site Right Radial Right Radial Arterial Blood Carboxyhemoglobin 0.2 0.2 Arterial Blood Date Drawn 10/12/2016 1:20:40 PM 10/12/2016 2:56:56 PM Arterial Blood Methemoglobin 0.2 0.4 Arterial Blood pCO2 (Temp correct) 48.8 H 46.8 H Arterial Blood pH (Temp corrected) 7.383 7.382 Arterial Blood pO2 (Temp corrected) 82.5 325.8 H Blood Gas A-a O2 Differential 581.7 H 340.4 H Blood Gas Modality MASK - NRB VENT - AC Blood Gas Notified Time 10/12/2016 1:36:12 PM 10/12/2016 3:09:50 PM Blood Gas Notified Whom NANCY CRUZ Blood Gas Specimen Source Blood arterial Blood arterial Blood Gas Temperature 37.0 37.0 FiO2 100.0 100.0 Oxyhemoglobin Percent 95.4 98.9 Total Hemoglobin 14.1 13.9 Blood Gas Actual Respiration Rate 25 Blood Gas Low PEEP Setting 5.0 Blood Gas Respiration Rate 16.0 Blood Gas Tidal Volume 500.0 Anion Gap 11 Basophils # 0.1 Basophils % 0.8 Blood Morphology Comment Blood Urea Nitrogen 9 Calcium Level 8.0 L Carbon Dioxide Level 32 H Chloride Level 104 Creatinine 0.50 L Eosinophils # 1.0 H Eosinophils % 14.6 H Glucose Level 94 Hematocrit 35.2 L Hemoglobin 11.4 L Lymphocytes # 1.9 Lymphocytes % 27.8 Mean Corpuscular Hemoglobin 28.5 L Mean Corpuscular Hemoglobin Concent 32.3 Mean Corpuscular Volume 88.0 Mean Platelet Volume 10.5 H Monocytes # 1.0 H Monocytes % 14.6 H Neutrophils # 2.9 Neutrophils % 42.2 Nucleated Red Blood Cells # 0.0 Nucleated Red Blood Cells % 0.0 Platelet Count 311 Potassium Level 3.6 Red Blood Count 3.99 L Red Cell Distribution Width 14.9 H Sodium Level 143 White Blood Count 6.8 Medications Medications Current Medications Lorazepam (Ativan) 0.5 mg Q6H PRN IV ANXIETY Last administered on 10/12/16 20: 09; Admin Dose 0.5 MG; Start 09/15/16 at 18:00 Ondansetron HCl (Zofran Inj) 4 mg Q6H PRN IV NAUSEA AND/OR VOMITING; Start at 18:00 Morphine Sulfate (morphine) 2 mg Q4H PRN IV PAIN LEVEL 7-10 Last administered on 10/11/16 23:27; Admin Dose 2 MG; Start 09/15/16 at 18:00 Haloperidol 5 mg 5 mg Q6H PRN IM AGITATION Last administered on 09/19/16at 10: 40; Admin Dose 5 MG; Start 09/18/16 at 11:30 Propofol (Diprivan) 100 ml @ 2.478 mls/ hr Q12H IV Last administered on 02:22; Admin Dose 24.78 MLS/HR; Start 09/19/16 at 13:30 Famotidine (Pepcid Iv) 20 mg BID IV Last administered on 10/13/16 08:00; Admin Dose 20 MG; Start 09/19/16 at 21:00 Metoclopramide HCl 10 mg 10 mg Q12 IV Last administered on 10/13/16 08:00; Admin Dose 10 MG; Start 09/24/16 at 11:30 Midazolam HCl/ Dextrose (Versed/D5W) 50 ml @ 2 mls/hr TITRATE IV Last administered on 10/13/16 04:21; Admin Dose 8 MLS/HR; Start 09/25/16 at 12:00; Status Future hold Acetaminophen (Tylenol Liquid) 650 mg Q4H PRN NGT PAIN AND OR ELEVATED TEMP Last administered on 10/10/16 03:47; Admin Dose 650 MG; Start 09/28/16 at 13:30 Enoxaparin Sodium (Lovenox) 100 mg Q12 SC Last administered on 10/13/16 08:02 ; Admin Dose 100 MG; Start 10/01/16 at 21:00; Status Future hold Lisinopril 2.5 mg 2.5 mg DAILY GTB Last administered on 10/03/16 08:43; Admin Dose 2.5 MG; Start 10/02/16 at 09:00 Meropenem/Sodium Chloride (Merrem/NS) 100 ml @ 200 mls/hr Q12 IVPB Last administered on 10/13/16 08:00; Admin Dose 200 MLS/HR; Start 10/08/16 at 18:30 Collagenase (Santyl) 1 applic DAILY TOP Last administered on 10/13/16 08:01; Admin Dose 1 APPLIC; Start 10/08/16 at 20:00 Nystatin (Nystatin Powder) 1 applic BID TOP Last administered on 10/13/16 08: 01; Admin Dose 1 APPLIC; Start 10/08/16 at 21:00 Collagenase 1 applic 1 applic PRN PRN TOP WOUND CARE Last administered on 07:54; Admin Dose 1 APPLIC; Start 10/08/16 at 17:30 Norepinephrine 16 mg/Dextrose 500 ml @ 1.87 mls/hr TITRATE IV ; Start 10/10/16 at 16:00 Potassium Chloride/Dextrose/ Sod Cl 1,000 ml @ 50 mls/hr Q20H IV Last administered on 10/13/16 07:00; Admin Dose 50 MLS/HR; Start 10/11/16 at 12:30 Fentanyl/Dextrose (D5W) 100 ml @ 2.5 mls/hr TITRATE IV Last administered on 19:28; Admin Dose 10 MLS/HR; Start 10/11/16 at 18:00 ILYA HILL Oct 13, 2016 09:14
--- NOTE | 2016-10-13 10:17 | CONS ---
Date/Time of Note Date/Time of Note DATE: 10/13/16 TIME: 10:14 Assessment/Plan Assessment/Plan Chief Complaint/Hosp Course - Sepsis d/t PNA with parapneumonic effusion. - PNA with parapneumonic effusion. Could be started as CAP, other considerations include aspiration PNA. Endotracheal cx grew Stephany albicans. - recurrent right pleural effusion. s/p diagnostic thoracentesis on 09/22/16. It showed glu=74 pro <2, PBJ=1455. No malignancy on cytology. s/p repeat thoracentesis 10/01/16. Again, no malignancy on cytology. Right chest tube placed 10/07/16. - recurrent fever, improving. Repeat procalcitonin downward trending, 0.22 on . 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 Acute hepatitis panel negative - drug rash likely d/t pip/tazo - mild leukopenia - resolved - s/p hyperkalemia and hypokalemia - s/p hyponatremia and hypernatremia - s/p lactic acidosis - s/p Vanco (09/19/16-10/04/16, 10/08/16-10/10/16), azithromycin (10/02/16-10/06/16) , pip/tazo (09/29/16-10/08/16), Tamiflu (10/02/16-10/08/16) - Negative rapid influenza screen, PPD, legionella antigen, mycoplasma pneumoniae, chlamydia pneumoniae serology, and respiratory viral panel; AFB smear negative (09/29, 09/30 & 10/01) Recommendations: - continue meropenem (10/08/16-) to complete a 7-8 day course for HCAP - resend chest tube fluid for aerobic and anaerobic cultures, fungus culture and AFB - f/u blood and urine cultures (negative to date) - f/u pleural fluid for gram stain (negative to date), culture (negative to date ), AFB (prelim shows no AFB), fungal culture (pending) - monitor rash (slowly improving) - management d/w DATA STORAGE SPECIALIST - Above d/w Dr. Osullivan - critical care time spent: 45 min Problems: Consultation Date/Type/Reason Admit Date/Time Sep 15, 2016 at 16:54 Initial Consult Date 09/29/16 Type of Consultation: Infectious Disease Referring Provider: JAN ZHANG 24 HR Interval Summary Free Text/Dictation Pt was extubated for 2-3 hours yesterday but required re-intubation d/t respiratory distress; sister coming in today to d/w MD regarding tracheotomy; chest tube now with purulent drainage; MAP currently stable off pressors per RN Annabel. Tmax 99.5 Unable to perform ROS d/t intubation/sedation. Exam/Review of Systems Vital Signs Vitals Vital Signs Date Time Temp Pulse Resp B/P Pulse Ox O2 Delivery O2 Flow Rate FiO2 10/13/16 08:00 98.9 83 16 86/62 99 Mechanical Ventilator 10/13/16 08:00 40 10/12/16 13:45 15.0 Intake and Output 10/12/16 10/12/16 10/13/16 15:00 23:00 07:00 Intake Total 793 ml 1017.0 ml 999 ml Output Total 635 ml 1055 ml 685 ml Balance 158 ml -38.0 ml 314 ml Exam Constitutional: other (orally intubated and sedated on Fentanyl and propofol), well developed Head: atraumatic, normocephalic ENMT: intubated. No obvious oral thrush noted. Mucous membranes are pink and dry. Neck: supple, No masses Respiratory: diminished breath sounds. other (left subclavian central line c/d /i). Right chest tube intact with purulent drainage. Cardiovascular: nl pulses, regular rate and rhythm Gastrointestinal: bowel sounds, other (NGT with TF intact), soft Genitourinary - Male: nl penis, nl scrotum, other (Tang cath intact with clear dark yellow urine) Extremities: 1+ LLE edema, normal pulses, No clubbing, No cyanosis Neurological: other (sedated). BUE in wrist restraints Skin: nl turgor, rash (diffuse petechial rash - improved compared to the day before) other (Multiple tattoos including 2 flags on the left bicep area and the name Missy on ISAIAH; stage 3 sacral decub - see photo in chart and nursing documentation for details) Results Result Diagram: 10/13/16 0340 10/13/16 0340 Results 24 hrs Laboratory Tests Test 10/12/16 13:15 10/12/16 14:50 10/13/16 03:40 Arterial Blood HCO3 28.4 H 27.2 H Arterial Blood Base Excess 2.5 1.5 Arterial Blood Oxygen Saturation 95.8 99.5 H Sky Test ACCEPTAB ACCEPTAB Arterial Blood Gas Puncture Site Right Radial Right Radial Arterial Blood Carboxyhemoglobin 0.2 0.2 Arterial Blood Date Drawn 10/12/2016 1:20:40 PM 10/12/2016 2:56:56 PM Arterial Blood Methemoglobin 0.2 0.4 Arterial Blood pCO2 (Temp correct) 48.8 H 46.8 H Arterial Blood pH (Temp corrected) 7.383 7.382 Arterial Blood pO2 (Temp corrected) 82.5 325.8 H Blood Gas A-a O2 Differential 581.7 H 340.4 H Blood Gas Modality MASK - NRB VENT - AC Blood Gas Notified Time 10/12/2016 1:36:12 PM 10/12/2016 3:09:50 PM Blood Gas Notified Whom NANCY CRUZ Blood Gas Specimen Source Blood arterial Blood arterial Blood Gas Temperature 37.0 37.0 FiO2 100.0 100.0 Oxyhemoglobin Percent 95.4 98.9 Total Hemoglobin 14.1 13.9 Blood Gas Actual Respiration Rate 25 Blood Gas Low PEEP Setting 5.0 Blood Gas Respiration Rate 16.0 Blood Gas Tidal Volume 500.0 Anion Gap 11 Basophils # 0.1 Basophils % 0.8 Blood Morphology Comment Blood Urea Nitrogen 9 Calcium Level 8.0 L Carbon Dioxide Level 32 H Chloride Level 104 Creatinine 0.50 L Eosinophils # 1.0 H Eosinophils % 14.6 H Glucose Level 94 Hematocrit 35.2 L Hemoglobin 11.4 L Lymphocytes # 1.9 Lymphocytes % 27.8 Mean Corpuscular Hemoglobin 28.5 L Mean Corpuscular Hemoglobin Concent 32.3 Mean Corpuscular Volume 88.0 Mean Platelet Volume 10.5 H Monocytes # 1.0 H Monocytes % 14.6 H Neutrophils # 2.9 Neutrophils % 42.2 Nucleated Red Blood Cells # 0.0 Nucleated Red Blood Cells % 0.0 Platelet Count 311 Potassium Level 3.6 Red Blood Count 3.99 L Red Cell Distribution Width 14.9 H Sodium Level 143 White Blood Count 6.8 Medications Medications Current Medications Lorazepam (Ativan) 0.5 mg Q6H PRN IV ANXIETY Last administered on 10/12/16 20: 09; Admin Dose 0.5 MG; Start 09/15/16 at 18:00 Ondansetron HCl (Zofran Inj) 4 mg Q6H PRN IV NAUSEA AND/OR VOMITING; Start at 18:00 Morphine Sulfate (morphine) 2 mg Q4H PRN IV PAIN LEVEL 7-10 Last administered on 10/11/16 23:27; Admin Dose 2 MG; Start 09/15/16 at 18:00 Haloperidol 5 mg 5 mg Q6H PRN IM AGITATION Last administered on 09/19/16at 10: 40; Admin Dose 5 MG; Start 09/18/16 at 11:30 Propofol (Diprivan) 100 ml @ 2.478 mls/ hr Q12H IV Last administered on 02:22; Admin Dose 24.78 MLS/HR; Start 09/19/16 at 13:30 Famotidine (Pepcid Iv) 20 mg BID IV Last administered on 10/13/16 08:00; Admin Dose 20 MG; Start 09/19/16 at 21:00 Metoclopramide HCl 10 mg 10 mg Q12 IV Last administered on 10/13/16 08:00; Admin Dose 10 MG; Start 09/24/16 at 11:30 Midazolam HCl/ Dextrose (Versed/D5W) 50 ml @ 2 mls/hr TITRATE IV Last administered on 10/13/16 04:21; Admin Dose 8 MLS/HR; Start 09/25/16 at 12:00; Status Future hold Acetaminophen (Tylenol Liquid) 650 mg Q4H PRN NGT PAIN AND OR ELEVATED TEMP Last administered on 10/10/16 03:47; Admin Dose 650 MG; Start 09/28/16 at 13:30 Enoxaparin Sodium (Lovenox) 100 mg Q12 SC Last administered on 10/13/16 08:02 ; Admin Dose 100 MG; Start 10/01/16 at 21:00; Status Future hold Lisinopril 2.5 mg 2.5 mg DAILY GTB Last administered on 10/03/16 08:43; Admin Dose 2.5 MG; Start 10/02/16 at 09:00 Meropenem/Sodium Chloride (Merrem/NS) 100 ml @ 200 mls/hr Q12 IVPB Last administered on 10/13/16 08:00; Admin Dose 200 MLS/HR; Start 10/08/16 at 18:30 Collagenase (Santyl) 1 applic DAILY TOP Last administered on 10/13/16 08:01; Admin Dose 1 APPLIC; Start 10/08/16 at 20:00 Nystatin (Nystatin Powder) 1 applic BID TOP Last administered on 10/13/16 08: 01; Admin Dose 1 APPLIC; Start 10/08/16 at 21:00 Collagenase 1 applic 1 applic PRN PRN TOP WOUND CARE Last administered on 07:54; Admin Dose 1 APPLIC; Start 10/08/16 at 17:30 Norepinephrine 16 mg/Dextrose 500 ml @ 1.87 mls/hr TITRATE IV ; Start 10/10/16 at 16:00 Potassium Chloride/Dextrose/ Sod Cl 1,000 ml @ 50 mls/hr Q20H IV Last administered on 10/13/16 07:00; Admin Dose 50 MLS/HR; Start 10/11/16 at 12:30 Fentanyl/Dextrose (D5W) 100 ml @ 2.5 mls/hr TITRATE IV Last administered on 19:28; Admin Dose 10 MLS/HR; Start 10/11/16 at 18:00 LAURA OJEDA NP Oct 13, 2016 10:17
[2016-10-13] MEDS: FENTAnyl 1,000 MCG in DEXTROSE 5% 80 ML IV SCH (13:31)
--- NOTE | 2016-10-13 13:49 | PN ---
Date/Time of Note Date/Time of Note DATE: 10/13/16 TIME: 13:47 Assessment/Plan VTE Prophylaxis VTE Prophylaxis Intervention: SCD's Lines/Catheters IV Catheter Type (from Nrs): Central Line Central line still needed: No Urinary Cath still in place: Yes Reason Cath still needed: urinary retention Assessment/Plan Assessment/Plan Respiratory failure Pulmonary emboli Acute decompensated systolic congestive heart failure Severe biventricular cardiomyopathy with left ventricular ejection fraction 20% Pleural effusion status post thoracentesis -Patient undergoing weaning trials -continue HILDA inhibitor as blood pressure and renal function permits. Continue anticoagulation if no contraindication coreg in the near future as bp low now prn lasix as bp allows Subjective 24 Hr Interval Summary Free Text/Dictation The paietn with no cahnge overnight Exam/Review of Systems Vital Signs Vitals Vital Signs Date Time Temp Pulse Resp B/P Pulse Ox O2 Delivery O2 Flow Rate FiO2 10/13/16 11:30 71 16 100 40 10/13/16 10:30 90/59 Mechanical Ventilator 10/13/16 08:00 98.9 10/12/16 13:45 15.0 Intake and Output 10/12/16 10/12/16 10/13/16 15:00 23:00 07:00 Intake Total 793 ml 1017.0 ml 999 ml Output Total 635 ml 1055 ml 685 ml Balance 158 ml -38.0 ml 314 ml Results Result Diagram: 10/13/16 0340 10/13/16 0340 Results 24 hrs Laboratory Tests Test 10/12/16 14:50 10/13/16 03:40 Arterial Blood HCO3 27.2 H Arterial Blood Base Excess 1.5 Arterial Blood Oxygen Saturation 99.5 H Sky Test ACCEPTAB Arterial Blood Gas Puncture Site Right Radial Arterial Blood Carboxyhemoglobin 0.2 Arterial Blood Date Drawn 10/12/2016 2:56:56 PM Arterial Blood Methemoglobin 0.4 Arterial Blood pCO2 (Temp correct) 46.8 H Arterial Blood pH (Temp corrected) 7.382 Arterial Blood pO2 (Temp corrected) 325.8 H Blood Gas A-a O2 Differential 340.4 H Blood Gas Actual Respiration Rate 25 Blood Gas Low PEEP Setting 5.0 Blood Gas Modality VENT - AC Blood Gas Notified Time 10/12/2016 3:09:50 PM Blood Gas Notified Whom JLD Blood Gas Respiration Rate 16.0 Blood Gas Specimen Source Blood arterial Blood Gas Temperature 37.0 Blood Gas Tidal Volume 500.0 FiO2 100.0 Oxyhemoglobin Percent 98.9 Total Hemoglobin 13.9 Anion Gap 11 Basophils # 0.1 Basophils % 0.8 Blood Morphology Comment Blood Urea Nitrogen 9 Calcium Level 8.0 L Carbon Dioxide Level 32 H Chloride Level 104 Creatinine 0.50 L Eosinophils # 1.0 H Eosinophils % 14.6 H Glucose Level 94 Hematocrit 35.2 L Hemoglobin 11.4 L Lymphocytes # 1.9 Lymphocytes % 27.8 Mean Corpuscular Hemoglobin 28.5 L Mean Corpuscular Hemoglobin Concent 32.3 Mean Corpuscular Volume 88.0 Mean Platelet Volume 10.5 H Monocytes # 1.0 H Monocytes % 14.6 H Neutrophils # 2.9 Neutrophils % 42.2 Nucleated Red Blood Cells # 0.0 Nucleated Red Blood Cells % 0.0 Platelet Count 311 Potassium Level 3.6 Red Blood Count 3.99 L Red Cell Distribution Width 14.9 H Sodium Level 143 White Blood Count 6.8 Medications Medications Current Medications Lorazepam (Ativan) 0.5 mg Q6H PRN IV ANXIETY Last administered on 10/12/16 20: 09; Admin Dose 0.5 MG; Start 09/15/16 at 18:00 Ondansetron HCl (Zofran Inj) 4 mg Q6H PRN IV NAUSEA AND/OR VOMITING; Start at 18:00 Morphine Sulfate (morphine) 2 mg Q4H PRN IV PAIN LEVEL 7-10 Last administered on 10/11/16 23:27; Admin Dose 2 MG; Start 09/15/16 at 18:00 Haloperidol 5 mg 5 mg Q6H PRN IM AGITATION Last administered on 09/19/16at 10: 40; Admin Dose 5 MG; Start 09/18/16 at 11:30 Propofol (Diprivan) 100 ml @ 2.478 mls/ hr Q12H IV Last administered on 02:22; Admin Dose 24.78 MLS/HR; Start 09/19/16 at 13:30 Famotidine (Pepcid Iv) 20 mg BID IV Last administered on 10/13/16 08:00; Admin Dose 20 MG; Start 09/19/16 at 21:00 Metoclopramide HCl 10 mg 10 mg Q12 IV Last administered on 10/13/16 08:00; Admin Dose 10 MG; Start 09/24/16 at 11:30 Midazolam HCl/ Dextrose (Versed/D5W) 50 ml @ 2 mls/hr TITRATE IV Last administered on 10/13/16 13:31; Admin Dose 4 MLS/HR; Start 09/25/16 at 12:00; Status Future hold Acetaminophen (Tylenol Liquid) 650 mg Q4H PRN NGT PAIN AND OR ELEVATED TEMP Last administered on 10/10/16 03:47; Admin Dose 650 MG; Start 09/28/16 at 13:30 Lisinopril 2.5 mg 2.5 mg DAILY GTB Last administered on 10/03/16 08:43; Admin Dose 2.5 MG; Start 10/02/16 at 09:00 Meropenem/Sodium Chloride (Merrem/NS) 100 ml @ 200 mls/hr Q12 IVPB Last administered on 10/13/16 08:00; Admin Dose 200 MLS/HR; Start 10/08/16 at 18:30 Collagenase (Santyl) 1 applic DAILY TOP Last administered on 10/13/16 08:01; Admin Dose 1 APPLIC; Start 10/08/16 at 20:00 Nystatin (Nystatin Powder) 1 applic BID TOP Last administered on 10/13/16 08: 01; Admin Dose 1 APPLIC; Start 10/08/16 at 21:00 Collagenase 1 applic 1 applic PRN PRN TOP WOUND CARE Last administered on 07:54; Admin Dose 1 APPLIC; Start 10/08/16 at 17:30 Norepinephrine 16 mg/Dextrose 500 ml @ 1.87 mls/hr TITRATE IV ; Start 10/10/16 at 16:00 Potassium Chloride/Dextrose/ Sod Cl 1,000 ml @ 50 mls/hr Q20H IV Last administered on 10/13/16 07:00; Admin Dose 50 MLS/HR; Start 10/11/16 at 12:30 Fentanyl/Dextrose (D5W) 100 ml @ 2.5 mls/hr TITRATE IV Last administered on 13:31; Admin Dose 60 MLS/HR; Start 10/11/16 at 18:00 Enoxaparin Sodium (Lovenox) 80 mg Q12 SC ; Start 10/13/16 at 21:00 RONAK BAE MD Oct 13, 2016 13:49
--- NOTE | 2016-10-13 14:38 | PN ---
Date/Time of Note Date/Time of Note DATE: 10/13/16 TIME: 14:25 Assessment/Plan VTE Prophylaxis VTE Prophylaxis Intervention: LMWH Lines/Catheters IV Catheter Type (from Nrs): Central Line Central line still needed: Yes Urinary Cath still in place: Yes Reason Cath still needed: urinary retention Assessment/Plan Chief Complaint/Hosp Course ASSESSMENT AND PLAN: 1. Acute respiratory failure patient was extubated and reintubated yesterday. Continue ventilator support. Plan for tracheostomy if family agrees. Dr. Miles foster is following the patient from pulmonology consultation. 2. Right-sided pneumonia with complicated parapneumonic effusion, status post thoracentesis,s/p R chest tube placement. Continue antibiotics per Dr. Shi foster following, Infectious Disease standpoint. 3. Acute pulmonary emboli. Continue patient on Lovenox. 4. 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 Dr. Luna is following from cardiology standpoint. 5. Encephalopathy, likely toxic metabolic, resolving. Continue to monitor. 6. Sepsis secondary to #2, resolved. Continue Pepcid for peptic ulcer disease prophylaxis. Further recommendations based on clinical course. Plan of care discussed with Dr. Patel. Problems: Subjective 24 Hr Interval Summary Free Text/Dictation Patient was reintubated yesterday, currently orally intubated on vent support, and sedation. No fever. Hypotension. Exam/Review of Systems Vital Signs Vitals Vital Signs Date Time Temp Pulse Resp B/P Pulse Ox O2 Delivery O2 Flow Rate FiO2 10/13/16 12:00 71 10/13/16 11:30 16 100 40 10/13/16 10:30 90/59 Mechanical Ventilator 10/13/16 08:00 98.9 10/12/16 13:45 15.0 Intake and Output 10/12/16 10/12/16 10/13/16 15:00 23:00 07:00 Intake Total 793 ml 1017.0 ml 999 ml Output Total 635 ml 1055 ml 685 ml Balance 158 ml -38.0 ml 314 ml Exam GENERAL: Well-developed, well-nourished male, orally intubated, on vent support. LUNGS: Diminished with scattered rhonchi bilaterally. HEART: Normal S1, S2. No murmurs, gallops, clicks, rubs noted. ABDOMEN: Round, soft, nondistended, nontender. Bowel sounds present. EXTREMITIES: No edema, clubbing, cyanosis. Pulses equal bilaterally 2+. SKIN: There is no rash. NEUROLOGIC: Sedated Results Result Diagram: 10/13/16 0340 10/13/16 0340 Results 24 hrs Laboratory Tests Test 10/12/16 14:50 10/13/16 03:40 Arterial Blood HCO3 27.2 H Arterial Blood Base Excess 1.5 Arterial Blood Oxygen Saturation 99.5 H Sky Test ACCEPTAB Arterial Blood Gas Puncture Site Right Radial Arterial Blood Carboxyhemoglobin 0.2 Arterial Blood Date Drawn 10/12/2016 2:56:56 PM Arterial Blood Methemoglobin 0.4 Arterial Blood pCO2 (Temp correct) 46.8 H Arterial Blood pH (Temp corrected) 7.382 Arterial Blood pO2 (Temp corrected) 325.8 H Blood Gas A-a O2 Differential 340.4 H Blood Gas Actual Respiration Rate 25 Blood Gas Low PEEP Setting 5.0 Blood Gas Modality VENT - AC Blood Gas Notified Time 10/12/2016 3:09:50 PM Blood Gas Notified Whom JLD Blood Gas Respiration Rate 16.0 Blood Gas Specimen Source Blood arterial Blood Gas Temperature 37.0 Blood Gas Tidal Volume 500.0 FiO2 100.0 Oxyhemoglobin Percent 98.9 Total Hemoglobin 13.9 Anion Gap 11 Basophils # 0.1 Basophils % 0.8 Blood Morphology Comment Blood Urea Nitrogen 9 Calcium Level 8.0 L Carbon Dioxide Level 32 H Chloride Level 104 Creatinine 0.50 L Eosinophils # 1.0 H Eosinophils % 14.6 H Glucose Level 94 Hematocrit 35.2 L Hemoglobin 11.4 L Lymphocytes # 1.9 Lymphocytes % 27.8 Mean Corpuscular Hemoglobin 28.5 L Mean Corpuscular Hemoglobin Concent 32.3 Mean Corpuscular Volume 88.0 Mean Platelet Volume 10.5 H Monocytes # 1.0 H Monocytes % 14.6 H Neutrophils # 2.9 Neutrophils % 42.2 Nucleated Red Blood Cells # 0.0 Nucleated Red Blood Cells % 0.0 Platelet Count 311 Potassium Level 3.6 Red Blood Count 3.99 L Red Cell Distribution Width 14.9 H Sodium Level 143 White Blood Count 6.8 Medications Medications Current Medications Lorazepam (Ativan) 0.5 mg Q6H PRN IV ANXIETY Last administered on 10/12/16t 20: 09; Admin Dose 0.5 MG; Start 09/15/16 at 18:00 Ondansetron HCl (Zofran Inj) 4 mg Q6H PRN IV NAUSEA AND/OR VOMITING; Start at 18:00 Morphine Sulfate (morphine) 2 mg Q4H PRN IV PAIN LEVEL 7-10 Last administered on 10/11/16 23:27; Admin Dose 2 MG; Start 09/15/16 at 18:00 Haloperidol 5 mg 5 mg Q6H PRN IM AGITATION Last administered on 09/19/16at 10: 40; Admin Dose 5 MG; Start 09/18/16 at 11:30 Propofol (Diprivan) 100 ml @ 2.478 mls/ hr Q12H IV Last administered on 02:22; Admin Dose 24.78 MLS/HR; Start 09/19/16 at 13:30 Famotidine (Pepcid Iv) 20 mg BID IV Last administered on 10/13/16 08:00; Admin Dose 20 MG; Start 09/19/16 at 21:00 Metoclopramide HCl 10 mg 10 mg Q12 IV Last administered on 10/13/16 08:00; Admin Dose 10 MG; Start 09/24/16 at 11:30 Midazolam HCl/ Dextrose (Versed/D5W) 50 ml @ 2 mls/hr TITRATE IV Last administered on 10/13/16 13:31; Admin Dose 4 MLS/HR; Start 09/25/16 at 12:00; Status Future hold Acetaminophen (Tylenol Liquid) 650 mg Q4H PRN NGT PAIN AND OR ELEVATED TEMP Last administered on 10/10/16 03:47; Admin Dose 650 MG; Start 09/28/16 at 13:30 Lisinopril 2.5 mg 2.5 mg DAILY GTB Last administered on 10/03/16 08:43; Admin Dose 2.5 MG; Start 10/02/16 at 09:00 Meropenem/Sodium Chloride (Merrem/NS) 100 ml @ 200 mls/hr Q12 IVPB Last administered on 10/13/16 08:00; Admin Dose 200 MLS/HR; Start 10/08/16 at 18:30 Collagenase (Santyl) 1 applic DAILY TOP Last administered on 10/13/16 08:01; Admin Dose 1 APPLIC; Start 10/08/16 at 20:00 Nystatin (Nystatin Powder) 1 applic BID TOP Last administered on 10/13/16 08: 01; Admin Dose 1 APPLIC; Start 10/08/16 at 21:00 Collagenase 1 applic 1 applic PRN PRN TOP WOUND CARE Last administered on 07:54; Admin Dose 1 APPLIC; Start 10/08/16 at 17:30 Norepinephrine 16 mg/Dextrose 500 ml @ 1.87 mls/hr TITRATE IV ; Start 10/10/16 at 16:00 Potassium Chloride/Dextrose/ Sod Cl 1,000 ml @ 50 mls/hr Q20H IV Last administered on 10/13/16 07:00; Admin Dose 50 MLS/HR; Start 10/11/16 at 12:30 Fentanyl/Dextrose (D5W) 100 ml @ 2.5 mls/hr TITRATE IV Last administered on 13:31; Admin Dose 60 MLS/HR; Start 10/11/16 at 18:00 Enoxaparin Sodium (Lovenox) 80 mg Q12 SC ; Start 10/13/16 at 21:00 JAN ZHANG Oct 13, 2016 14:36
--- NOTE | 2016-10-13 15:52 | PN ---
Date/Time of Note Date/Time of Note DATE: 10/13/16 TIME: 15:51 Assessment/Plan Lines/Catheters IV Catheter Type (from Nrsg): Central Line Tang in Place (from Nrsg): Yes Assessment/Plan Chief Complaint/Hosp Course IMPRESSION 1. Pulmonary embolism. 2. Pneumonia. 3 Pleural effusion RECOMMENDATIONS: CT 900cc SP CT placement will continue CT sxn Problems: Subjective 24 Hr Interval Summary Constitutional: improved Pain Control: mild Exam/Review of Systems Vital Signs Vitals Vital Signs Date Time Temp Pulse Resp B/P Pulse Ox O2 Delivery O2 Flow Rate FiO2 10/13/16 15:00 72 16 97/68 100 Mechanical Ventilator 10/13/16 12:00 99.0 10/13/16 11:30 40 10/12/16 13:45 15.0 Intake and Output 10/12/16 10/12/16 10/13/16 15:00 23:00 07:00 Intake Total 793 ml 1017.0 ml 999 ml Output Total 635 ml 1055 ml 685 ml Balance 158 ml -38.0 ml 314 ml Exam ENMT: mucosa pink and moist, nl external ears & nose, nl lips & teeth, nl nasal mucosa & septum Neck: non-tender, supple Respiratory: clear to auscultation, normal air movement Cardiovascular: nl pulses, regular rate and rhythm Results Result Diagram: 10/13/1633910/13/16339 YOUNG HAY MD Oct 13, 2016 15:52
[2016-10-13] MEDS: ENOXAPARIN 80 MG/0.8 ML SYG SC SCH (21:05)
[2016-10-14] VITALS (50 sets, daily range): BP systolic 89–122; BP diastolic 58–94; PULSE 72–160; RESP 16–18
[2016-10-14] MEDS: FENTAnyl 1,000 MCG in DEXTROSE 5% 80 ML IV SCH ×3 (02:46→21:45)
[2016-10-14] MEDS: D5-NS + KCL 20 MEQ 1,000 ML IV SCH ×2 (04:38→22:48)
[2016-10-14] MEDS: MIDAZOLAM 50 MG in DEXTROSE 5% 40 ML IV SCH ×4 (04:39→21:46)
[2016-10-14 05:42] LABS: BASOPHIL # 0.1 10^3/ul (0.0-0.1); BASOPHILS % 0.7 % (0.0-2.0); EOSINOPHILS # 1.6 10^3/ul (0.0-0.5); EOSINOPHILS % 19.9 % (0.0-7.0); HEMATOCRIT 34.4 % (42.0-52.0); HEMOGLOBIN 11.3 g/dl (14.0-18.0); LYMPHOCYTES # 2.1 10^3/ul (0.8-2.9); MEAN CORPUSCULAR HGB CONC 32.9 g/dl (32.0-37.0); MEAN CORPUSCULAR VOLUME 87.9 fl (82.0-101.0); MEAN PLATELET VOLUME 10.4 fl (7.4-10.4); MONOCYTE # 1.3 10^3/ul (0.3-0.9); MONOCYTES % 15.5 % (0.0-11.0); NEUTROPHIL # 3.1 10^3/ul (1.6-7.5); NEUTROPHILS % 37.9 % (39.0-77.0); PLATELET COUNT 294 10^3/UL (140-440); RED BLOOD COUNT 3.91 10^6/ul (4.70-6.10); RED CELL DISTRIBUTION WIDTH 15.1 % (11.5-14.5); UNCORRECTED WBC 8.1 10^3/ul (4.8-10.8); WHITE BLOOD COUNT 8.1 10^3/ul (4.8-10.8)
[2016-10-14 05:51] LABS: CONDITION 1; LH ANALYZER COMMENTS 1
[2016-10-14 05:59] LABS: CREATININE 0.54 mg/dl (0.61-1.24)
[2016-10-14 06:00] LABS: CALCIUM 8.2 mg/dl (8.4-10.2)
[2016-10-14] MEDS: METOCLOPRAMIDE 10 MG INJ IV SCH ×2 (08:15→20:00)
[2016-10-14] MEDS: FAMOTIDINE 20 MG INJ IV SCH ×2 (08:15→20:00)
[2016-10-14] MEDS: LISINOPRIL 5 MG TAB GTB SCH (08:15)
[2016-10-14] MEDS: ENOXAPARIN 80 MG/0.8 ML SYG SC SCH ×2 (08:16→20:02)
--- NOTE | 2016-10-14 08:23 | CONS ---
Date/Time of Note Date/Time of Note DATE: 10/14/16 TIME: 08:19 Assessment/Plan Assessment/Plan Additional Assessment/Plan Assessment and recommendations; next 1. Patient admitted with right-sided pneumonia with empyema status post VATS procedure with chest tube still in place draining significant amount of pleural fluid daily precluding chest tube removal. Next 2. Failure to be weaned off from mechanical ventilation patient failed an activation trial had to be reintubated. Next 3. Currently unable to be weaned off from mechanical ventilation due to ongoing issues with congestive heart failure as well as significant drug withdrawal. Next 4. Family not available for consent regarding tracheostomy and PEG tube placement. At this time continue current mechanical ventilation settings, antibiotics, other supportive measures. Once the family is available consent will be obtained and the patient will need to have a tracheostomy performed. Consultation Date/Type/Reason Admit Date/Time Sep 15, 2016 at 16:54 Initial Consult Date 09/29/16 Type of Consultation: Infectious Disease Referring Provider: JAN ZHANG 24 HR Interval Summary Free Text/Dictation Patient condition remains stable still requiring high-dose Versed as well as fentanyl drip combination for sedation the dose was decreased on both medications yesterday and the patient started to pull various lines and catheters and had to be re-sedated again. Patient currently is still orally intubated, sedated, currently in no distress. Exam/Review of Systems Vital Signs Vitals Vital Signs Date Time Temp Pulse Resp B/P Pulse Ox O2 Delivery O2 Flow Rate FiO2 10/14/16 08:00 30 10/14/16 07:53 100.0 10/14/16 07:30 86 16 114/84 100 Mechanical Ventilator 10/12/16 13:45 15.0 Intake and Output 10/13/16 10/13/16 10/14/16 15:00 23:00 07:00 Intake Total 954 ml 1063 ml 862 ml Output Total 135 ml 750 ml 740 ml Balance 819 ml 313 ml 122 ml Exam HEENT examination; supple neck, no JVD, no lymphadenopathy, or intubated. Pupils are midsize reactive to light. No neck masses. No thyromegaly. No neck bruits. Chest examination; diminished but clear breath sounds bilaterally, right side chest tube in place has drained about 500 mL of fluid overnight into the Pleur- evac chamber. S1-S2 audible no murmurs regular rhythm. Abdomen examination; soft, nondistended, no organomegaly. Bowel sounds audible. Extremity examination; no peripheral edema. Pulses 1+ bilaterally. RECRUITER examination; patient currently sedated. Results Result Diagram: 10/14/16 0430 10/14/16 0430 Results 24 hrs Laboratory Tests Test 10/14/16 04:30 Anion Gap 10 Basophils # 0.1 Basophils % 0.7 Blood Morphology Comment Blood Urea Nitrogen 12 Calcium Level 8.2 L Carbon Dioxide Level 33 H Chloride Level 104 Creatinine 0.54 L Eosinophils # 1.6 H Eosinophils % 19.9 H Glucose Level 98 Hematocrit 34.4 L Hemoglobin 11.3 L Lymphocytes # 2.1 Lymphocytes % 26.0 Mean Corpuscular Hemoglobin 29.0 Mean Corpuscular Hemoglobin Concent 32.9 Mean Corpuscular Volume 87.9 Mean Platelet Volume 10.4 Monocytes # 1.3 H Monocytes % 15.5 H Neutrophils # 3.1 Neutrophils % 37.9 L Nucleated Red Blood Cells # 0.0 Nucleated Red Blood Cells % 0.0 Platelet Count 294 Potassium Level 4.0 Red Blood Count 3.91 L Red Cell Distribution Width 15.1 H Sodium Level 143 White Blood Count 8.1 Medications Medications Current Medications Lorazepam (Ativan) 0.5 mg Q6H PRN IV ANXIETY Last administered on 10/12/16 20: 09; Admin Dose 0.5 MG; Start 09/15/16 at 18:00 Ondansetron HCl (Zofran Inj) 4 mg Q6H PRN IV NAUSEA AND/OR VOMITING; Start at 18:00 Morphine Sulfate (morphine) 2 mg Q4H PRN IV PAIN LEVEL 7-10 Last administered on 10/11/16 23:27; Admin Dose 2 MG; Start 09/15/16 at 18:00 Haloperidol 5 mg 5 mg Q6H PRN IM AGITATION Last administered on 09/19/16at 10: 40; Admin Dose 5 MG; Start 09/18/16 at 11:30 Propofol (Diprivan) 100 ml @ 2.478 mls/ hr Q12H IV Last administered on 02:22; Admin Dose 24.78 MLS/HR; Start 09/19/16 at 13:30 Famotidine (Pepcid Iv) 20 mg BID IV Last administered on 10/14/16 08:15; Admin Dose 20 MG; Start 09/19/16 at 21:00 Metoclopramide HCl 10 mg 10 mg Q12 IV Last administered on 10/14/16 08:15; Admin Dose 10 MG; Start 09/24/16 at 11:30 Midazolam HCl/ Dextrose (Versed/D5W) 50 ml @ 2 mls/hr TITRATE IV Last administered on 10/14/16 04:39; Admin Dose 9 MLS/HR; Start 09/25/16 at 12:00; Status Future hold Acetaminophen (Tylenol Liquid) 650 mg Q4H PRN NGT PAIN AND OR ELEVATED TEMP Last administered on 10/10/16 03:47; Admin Dose 650 MG; Start 09/28/16 at 13:30 Lisinopril 2.5 mg 2.5 mg DAILY GTB Last administered on 10/14/16 08:15; Admin Dose 2.5 MG; Start 10/02/16 at 09:00 Meropenem/Sodium Chloride (Merrem/NS) 100 ml @ 200 mls/hr Q12 IVPB Last administered on 10/13/16 20:58; Admin Dose 200 MLS/HR; Start 10/08/16 at 18:30 Collagenase (Santyl) 1 applic DAILY TOP Last administered on 10/13/16 08:01; Admin Dose 1 APPLIC; Start 10/08/16 at 20:00 Nystatin (Nystatin Powder) 1 applic BID TOP Last administered on 10/13/16 20: 59; Admin Dose 1 APPLIC; Start 10/08/16 at 21:00 Collagenase 1 applic 1 applic PRN PRN TOP WOUND CARE Last administered on 07:54; Admin Dose 1 APPLIC; Start 10/08/16 at 17:30 Norepinephrine 16 mg/Dextrose 500 ml @ 1.87 mls/hr TITRATE IV ; Start 10/10/16 at 16:00 Potassium Chloride/Dextrose/ Sod Cl 1,000 ml @ 50 mls/hr Q20H IV Last administered on 10/14/16 04:38; Admin Dose 50 MLS/HR; Start 10/11/16 at 12:30 Fentanyl/Dextrose (D5W) 100 ml @ 2.5 mls/hr TITRATE IV Last administered on 02:46; Admin Dose 10 MLS/HR; Start 10/11/16 at 18:00 Enoxaparin Sodium (Lovenox) 80 mg Q12 SC Last administered on 10/14/16 08:16; Admin Dose 80 MG; Start 10/13/16 at 21:00 ILYA HILL Oct 14, 2016 08:22
[2016-10-14] MEDS: MEROPENEM 1 GM in SOD CHLORIDE 0.9% 100 ML IVPB SCH ×2 (08:34→20:01)
[2016-10-14] MEDS: COLLAGENASE 30 GM TUBE TOP SCH (08:35)
[2016-10-14] MEDS: NYSTATIN 30 GM POWDER BTL TOP SCH ×2 (08:35→20:03)
--- NOTE | 2016-10-14 09:56 | CONS ---
Date/Time of Note Date/Time of Note DATE: 10/14/16 TIME: 09:54 Assessment/Plan Assessment/Plan Chief Complaint/Hosp Course - Sepsis d/t PNA with parapneumonic effusion. - PNA with parapneumonic effusion. Could be started as CAP, other considerations include aspiration PNA. Endotracheal cx grew Stephany albicans. - recurrent right pleural effusion. s/p diagnostic thoracentesis on 09/22/16. It showed glu=74 pro <2, MYQ=0124. No malignancy on cytology. s/p repeat thoracentesis 10/01/16. Again, no malignancy on cytology. Right chest tube placed 10/07/16. - recurrent fever, improving. Repeat procalcitonin downward trending, 0.22 on . 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 Acute hepatitis panel negative - drug rash likely d/t pip/tazo - mild leukopenia - resolved - s/p hyperkalemia and hypokalemia - s/p hyponatremia and hypernatremia - s/p lactic acidosis - s/p Vanco (09/19/16-10/04/16, 10/08/16-10/10/16), azithromycin (10/02/16-10/06/16) , pip/tazo (09/29/16-10/08/16), Tamiflu (10/02/16-10/08/16) - Negative rapid influenza screen, PPD, legionella antigen, mycoplasma pneumoniae, chlamydia pneumoniae serology, and respiratory viral panel; AFB smear negative (09/29, 09/30 & 10/01) Recommendations: - continue meropenem (10/08/16-) to complete a 7-8 day course for HCAP - resend chest tube fluid for aerobic and anaerobic cultures, fungus culture and AFB-- still pending - f/u blood and urine cultures (negative to date) - f/u pleural fluid for gram stain (negative to date), culture (negative to date ), AFB (prelim shows no AFB), fungal culture (pending) - monitor rash (slowly improving) Problems: Consultation Date/Type/Reason Admit Date/Time Sep 15, 2016 at 16:54 Initial Consult Date 09/29/16 Type of Consultation: Infectious Disease Referring Provider: JNA ZHANG 24 HR Interval Summary Free Text/Dictation still having purulent drainage. Exam/Review of Systems Vital Signs Vitals Vital Signs Date Time Temp Pulse Resp B/P Pulse Ox O2 Delivery O2 Flow Rate FiO2 10/14/16 08:00 98 10/14/16 08:00 16 100 30 10/14/16 07:53 100.0 10/14/16 07:30 114/84 Mechanical Ventilator 10/12/16 13:45 15.0 Intake and Output 10/13/16 10/13/16 10/14/16 15:00 23:00 07:00 Intake Total 954 ml 1063 ml 862 ml Output Total 135 ml 750 ml 740 ml Balance 819 ml 313 ml 122 ml Exam Constitutional: alert, oriented, well developed Psych: nl mood/affect, no complaints Head: atraumatic, normocephalic Eyes: EOMI, PERRL, nl conjunctiva, nl lids, nl sclera ENMT: nl external ears & nose, nl lips & teeth, nl nasal mucosa & septum Neck: non-tender, supple Respiratory: diminished breath sounds Cardiovascular: regular rate and rhythm Gastrointestinal: nl liver, spleen, non-tender, soft Results Result Diagram: 10/14/16 0430 10/14/16 0430 Results 24 hrs Laboratory Tests Test 10/14/16 04:30 Anion Gap 10 Basophils # 0.1 Basophils % 0.7 Blood Morphology Comment Blood Urea Nitrogen 12 Calcium Level 8.2 L Carbon Dioxide Level 33 H Chloride Level 104 Creatinine 0.54 L Eosinophils # 1.6 H Eosinophils % 19.9 H Glucose Level 98 Hematocrit 34.4 L Hemoglobin 11.3 L Lymphocytes # 2.1 Lymphocytes % 26.0 Mean Corpuscular Hemoglobin 29.0 Mean Corpuscular Hemoglobin Concent 32.9 Mean Corpuscular Volume 87.9 Mean Platelet Volume 10.4 Monocytes # 1.3 H Monocytes % 15.5 H Neutrophils # 3.1 Neutrophils % 37.9 L Nucleated Red Blood Cells # 0.0 Nucleated Red Blood Cells % 0.0 Platelet Count 294 Potassium Level 4.0 Red Blood Count 3.91 L Red Cell Distribution Width 15.1 H Sodium Level 143 White Blood Count 8.1 Medications Medications Current Medications Lorazepam (Ativan) 0.5 mg Q6H PRN IV ANXIETY Last administered on 10/12/16 20: 09; Admin Dose 0.5 MG; Start 09/15/16 at 18:00 Ondansetron HCl (Zofran Inj) 4 mg Q6H PRN IV NAUSEA AND/OR VOMITING; Start at 18:00 Morphine Sulfate (morphine) 2 mg Q4H PRN IV PAIN LEVEL 7-10 Last administered on 10/11/16 23:27; Admin Dose 2 MG; Start 09/15/16 at 18:00 Haloperidol 5 mg 5 mg Q6H PRN IM AGITATION Last administered on 09/19/16at 10: 40; Admin Dose 5 MG; Start 09/18/16 at 11:30 Propofol (Diprivan) 100 ml @ 2.478 mls/ hr Q12H IV Last administered on 02:22; Admin Dose 24.78 MLS/HR; Start 09/19/16 at 13:30 Famotidine (Pepcid Iv) 20 mg BID IV Last administered on 10/14/16 08:15; Admin Dose 20 MG; Start 09/19/16 at 21:00 Metoclopramide HCl 10 mg 10 mg Q12 IV Last administered on 10/14/16 08:15; Admin Dose 10 MG; Start 09/24/16 at 11:30 Midazolam HCl/ Dextrose (Versed/D5W) 50 ml @ 2 mls/hr TITRATE IV Last administered on 10/14/16 04:39; Admin Dose 9 MLS/HR; Start 09/25/16 at 12:00; Status Future hold Acetaminophen (Tylenol Liquid) 650 mg Q4H PRN NGT PAIN AND OR ELEVATED TEMP Last administered on 10/10/16 03:47; Admin Dose 650 MG; Start 09/28/16 at 13:30 Lisinopril 2.5 mg 2.5 mg DAILY GTB Last administered on 10/14/16 08:15; Admin Dose 2.5 MG; Start 10/02/16 at 09:00 Meropenem/Sodium Chloride (Merrem/NS) 100 ml @ 200 mls/hr Q12 IVPB Last administered on 10/14/16 08:34; Admin Dose 200 MLS/HR; Start 10/08/16 at 18:30 Collagenase (Santyl) 1 applic DAILY TOP Last administered on 10/14/16 08:35; Admin Dose 1 APPLIC; Start 10/08/16 at 20:00 Nystatin (Nystatin Powder) 1 applic BID TOP Last administered on 10/14/16 08: 35; Admin Dose 1 APPLIC; Start 10/08/16 at 21:00 Collagenase 1 applic 1 applic PRN PRN TOP WOUND CARE Last administered on 07:54; Admin Dose 1 APPLIC; Start 10/08/16 at 17:30 Norepinephrine 16 mg/Dextrose 500 ml @ 1.87 mls/hr TITRATE IV ; Start 10/10/16 at 16:00 Potassium Chloride/Dextrose/ Sod Cl 1,000 ml @ 50 mls/hr Q20H IV Last administered on 10/14/16 04:38; Admin Dose 50 MLS/HR; Start 10/11/16 at 12:30 Fentanyl/Dextrose (D5W) 100 ml @ 2.5 mls/hr TITRATE IV Last administered on 02:46; Admin Dose 10 MLS/HR; Start 10/11/16 at 18:00 Enoxaparin Sodium (Lovenox) 80 mg Q12 SC Last administered on 10/14/16 08:16; Admin Dose 80 MG; Start 10/13/16 at 21:00 DYLLAN PULIDO MD Oct 14, 2016 09:56
[2016-10-14] MEDS: PROPOFOL 100 ML IV SCH (13:27)
--- NOTE | 2016-10-14 13:32 | PN ---
Date/Time of Note Date/Time of Note DATE: 10/14/16 TIME: 13:31 Assessment/Plan VTE Prophylaxis VTE Prophylaxis Intervention: SCD's Lines/Catheters IV Catheter Type (from Nrs): Central Line Central line still needed: No Urinary Cath still in place: Yes Reason Cath still needed: urinary retention Assessment/Plan Assessment/Plan Respiratory failure Pulmonary emboli Acute decompensated systolic congestive heart failure Severe biventricular cardiomyopathy with left ventricular ejection fraction 20% Pleural effusion status post thoracentesis -Patient undergoing weaning trials -continue HILDA inhibitor as blood pressure and renal function permits. Continue anticoagulation if no contraindication coreg in the near future as bp low now prn lasix as bp allows Subjective 24 Hr Interval Summary Free Text/Dictation The patient with no cahnge Exam/Review of Systems Vital Signs Vitals Vital Signs Date Time Temp Pulse Resp B/P Pulse Ox O2 Delivery O2 Flow Rate FiO2 10/14/16 12:30 82 16 104/70 100 Mechanical Ventilator 10/14/16 12:00 100.2 10/14/16 11:30 30 10/12/16 13:45 15.0 Intake and Output 10/13/16 10/13/16 10/14/16 15:00 23:00 07:00 Intake Total 954 ml 1063 ml 892 ml Output Total 135 ml 750 ml 815 ml Balance 819 ml 313 ml 77 ml Results Result Diagram: 10/14/16 0430 10/14/16 0430 Results 24 hrs Laboratory Tests Test 10/14/16 04:30 Anion Gap 10 Basophils # 0.1 Basophils % 0.7 Blood Morphology Comment Blood Urea Nitrogen 12 Calcium Level 8.2 L Carbon Dioxide Level 33 H Chloride Level 104 Creatinine 0.54 L Eosinophils # 1.6 H Eosinophils % 19.9 H Glucose Level 98 Hematocrit 34.4 L Hemoglobin 11.3 L Lymphocytes # 2.1 Lymphocytes % 26.0 Mean Corpuscular Hemoglobin 29.0 Mean Corpuscular Hemoglobin Concent 32.9 Mean Corpuscular Volume 87.9 Mean Platelet Volume 10.4 Monocytes # 1.3 H Monocytes % 15.5 H Neutrophils # 3.1 Neutrophils % 37.9 L Nucleated Red Blood Cells # 0.0 Nucleated Red Blood Cells % 0.0 Platelet Count 294 Potassium Level 4.0 Red Blood Count 3.91 L Red Cell Distribution Width 15.1 H Sodium Level 143 White Blood Count 8.1 Medications Medications Current Medications Lorazepam (Ativan) 0.5 mg Q6H PRN IV ANXIETY Last administered on 10/12/16 20: 09; Admin Dose 0.5 MG; Start 09/15/16 at 18:00 Ondansetron HCl (Zofran Inj) 4 mg Q6H PRN IV NAUSEA AND/OR VOMITING; Start at 18:00 Morphine Sulfate (morphine) 2 mg Q4H PRN IV PAIN LEVEL 7-10 Last administered on 10/11/16 23:27; Admin Dose 2 MG; Start 09/15/16 at 18:00 Haloperidol 5 mg 5 mg Q6H PRN IM AGITATION Last administered on 09/19/16at 10: 40; Admin Dose 5 MG; Start 09/18/16 at 11:30 Propofol (Diprivan) 100 ml @ 2.478 mls/ hr Q12H IV Last administered on 02:22; Admin Dose 24.78 MLS/HR; Start 09/19/16 at 13:30 Famotidine (Pepcid Iv) 20 mg BID IV Last administered on 10/14/16 08:15; Admin Dose 20 MG; Start 09/19/16 at 21:00 Metoclopramide HCl 10 mg 10 mg Q12 IV Last administered on 10/14/16 08:15; Admin Dose 10 MG; Start 09/24/16 at 11:30 Midazolam HCl/ Dextrose (Versed/D5W) 50 ml @ 2 mls/hr TITRATE IV Last administered on 10/14/16 13:29; Admin Dose 2 MLS/HR; Start 09/25/16 at 12:00; Status Future hold Acetaminophen (Tylenol Liquid) 650 mg Q4H PRN NGT PAIN AND OR ELEVATED TEMP Last administered on 10/10/16 03:47; Admin Dose 650 MG; Start 09/28/16 at 13:30 Lisinopril 2.5 mg 2.5 mg DAILY GTB Last administered on 10/14/16 08:15; Admin Dose 2.5 MG; Start 10/02/16 at 09:00 Meropenem/Sodium Chloride (Merrem/NS) 100 ml @ 200 mls/hr Q12 IVPB Last administered on 10/14/16 08:34; Admin Dose 200 MLS/HR; Start 10/08/16 at 18:30 Collagenase (Santyl) 1 applic DAILY TOP Last administered on 10/14/16 08:35; Admin Dose 1 APPLIC; Start 10/08/16 at 20:00 Nystatin (Nystatin Powder) 1 applic BID TOP Last administered on 10/14/16 08: 35; Admin Dose 1 APPLIC; Start 10/08/16 at 21:00 Collagenase 1 applic 1 applic PRN PRN TOP WOUND CARE Last administered on 07:54; Admin Dose 1 APPLIC; Start 10/08/16 at 17:30 Norepinephrine 16 mg/Dextrose 500 ml @ 1.87 mls/hr TITRATE IV ; Start 10/10/16 at 16:00 Potassium Chloride/Dextrose/ Sod Cl 1,000 ml @ 50 mls/hr Q20H IV Last administered on 10/14/16 04:38; Admin Dose 50 MLS/HR; Start 10/11/16 at 12:30 Fentanyl/Dextrose (D5W) 100 ml @ 2.5 mls/hr TITRATE IV Last administered on 12:04; Admin Dose 10 MLS/HR; Start 10/11/16 at 18:00 Enoxaparin Sodium (Lovenox) 80 mg Q12 SC Last administered on 10/14/16 08:16; Admin Dose 80 MG; Start 10/13/16 at 21:00 RONAK BAE MD Oct 14, 2016 13:32
--- NOTE | 2016-10-14 14:47 | RADRPT ---
Vent Rate: 159 bpm RR Interval: 0 msec RI Interval: 88 msec QRS Duration: 94 msec QT Interval: 308 msec QTC Interval: 501 msec P-R-T [place]: 74 - -4 - 76 degrees Sinus tachycardia with short RI ST amp; T wave abnormality, consider lateral ischemia Abnormal ECG Electronically Signed By: Chris Farrar [id number]
--- NOTE | 2016-10-14 14:59 | PN ---
Date/Time of Note Date/Time of Note DATE: 10/14/16 TIME: 14:57 Assessment/Plan VTE Prophylaxis VTE Prophylaxis Intervention: SCD's Lines/Catheters IV Catheter Type (from Nrs): Central Line Central line still needed: Yes Urinary Cath still in place: Yes Reason Cath still needed: urinary retention Assessment/Plan Chief Complaint/Hosp Course ASSESSMENT AND PLAN: 1. Acute respiratory failure patient, failed extubation. Continue ventilator support. Plan for tracheostomy if family agrees. Dr. Miles foster is following the patient from pulmonology consultation. 2. Right-sided pneumonia with complicated parapneumonic effusion, status post thoracentesis,s/p R chest tube placement. Continue antibiotics per Dr. Shi foster following, Infectious Disease standpoint. 3. Acute pulmonary emboli. Continue patient on Lovenox. 4. 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 Dr. Luna is following from cardiology standpoint. 5. Encephalopathy, likely toxic metabolic, resolving. Continue to monitor. 6. Sepsis secondary to #2, resolved. Continue Pepcid for peptic ulcer disease prophylaxis. Further recommendations based on clinical course. Plan of care discussed with Dr. Patel. Problems: Subjective 24 Hr Interval Summary Free Text/Dictation Patient continues to have low-grade fever, continued on vent support, sedation, tolerates G-tube feeding, will change formula according to nutrition recommendations. Exam/Review of Systems Vital Signs Vitals Vital Signs Date Time Temp Pulse Resp B/P Pulse Ox O2 Delivery O2 Flow Rate FiO2 10/14/16 13:30 83 16 103/68 100 Mechanical Ventilator 10/14/16 13:30 30 10/14/16 12:00 100.2 10/12/16 13:45 15.0 Intake and Output 10/13/16 10/13/16 10/14/16 15:00 23:00 07:00 Intake Total 954 ml 1063 ml 892 ml Output Total 135 ml 750 ml 815 ml Balance 819 ml 313 ml 77 ml Exam GENERAL: Well-developed, well-nourished male, orally intubated, on vent support. LUNGS: Diminished with scattered rhonchi bilaterally. HEART: Normal S1, S2. No murmurs, gallops, clicks, rubs noted. ABDOMEN: Round, soft, nondistended, nontender. Bowel sounds present. EXTREMITIES: No edema, clubbing, cyanosis. Pulses equal bilaterally 2+. SKIN: There is no rash. NEUROLOGIC: Sedated Results Result Diagram: 10/14/16 0430 10/14/16 0430 Results 24 hrs Laboratory Tests Test 10/14/16 04:30 Anion Gap 10 Basophils # 0.1 Basophils % 0.7 Blood Morphology Comment Blood Urea Nitrogen 12 Calcium Level 8.2 L Carbon Dioxide Level 33 H Chloride Level 104 Creatinine 0.54 L Eosinophils # 1.6 H Eosinophils % 19.9 H Glucose Level 98 Hematocrit 34.4 L Hemoglobin 11.3 L Lymphocytes # 2.1 Lymphocytes % 26.0 Mean Corpuscular Hemoglobin 29.0 Mean Corpuscular Hemoglobin Concent 32.9 Mean Corpuscular Volume 87.9 Mean Platelet Volume 10.4 Monocytes # 1.3 H Monocytes % 15.5 H Neutrophils # 3.1 Neutrophils % 37.9 L Nucleated Red Blood Cells # 0.0 Nucleated Red Blood Cells % 0.0 Platelet Count 294 Potassium Level 4.0 Red Blood Count 3.91 L Red Cell Distribution Width 15.1 H Sodium Level 143 White Blood Count 8.1 Medications Medications Current Medications Lorazepam (Ativan) 0.5 mg Q6H PRN IV ANXIETY Last administered on 10/12/16 20: 09; Admin Dose 0.5 MG; Start 09/15/16 at 18:00 Ondansetron HCl (Zofran Inj) 4 mg Q6H PRN IV NAUSEA AND/OR VOMITING; Start at 18:00 Morphine Sulfate (morphine) 2 mg Q4H PRN IV PAIN LEVEL 7-10 Last administered on 10/11/16 23:27; Admin Dose 2 MG; Start 09/15/16 at 18:00 Haloperidol 5 mg 5 mg Q6H PRN IM AGITATION Last administered on 09/19/16at 10: 40; Admin Dose 5 MG; Start 09/18/16 at 11:30 Propofol (Diprivan) 100 ml @ 2.478 mls/ hr Q12H IV Last administered on 02:22; Admin Dose 24.78 MLS/HR; Start 09/19/16 at 13:30 Famotidine (Pepcid Iv) 20 mg BID IV Last administered on 10/14/16 08:15; Admin Dose 20 MG; Start 09/19/16 at 21:00 Metoclopramide HCl 10 mg 10 mg Q12 IV Last administered on 10/14/16 08:15; Admin Dose 10 MG; Start 09/24/16 at 11:30 Midazolam HCl/ Dextrose (Versed/D5W) 50 ml @ 2 mls/hr TITRATE IV Last administered on 10/14/16 13:29; Admin Dose 2 MLS/HR; Start 09/25/16 at 12:00; Status Future hold Acetaminophen (Tylenol Liquid) 650 mg Q4H PRN NGT PAIN AND OR ELEVATED TEMP Last administered on 10/10/16 03:47; Admin Dose 650 MG; Start 09/28/16 at 13:30 Lisinopril 2.5 mg 2.5 mg DAILY GTB Last administered on 10/14/16 08:15; Admin Dose 2.5 MG; Start 10/02/16 at 09:00 Meropenem/Sodium Chloride (Merrem/NS) 100 ml @ 200 mls/hr Q12 IVPB Last administered on 10/14/16 08:34; Admin Dose 200 MLS/HR; Start 10/08/16 at 18:30 Collagenase (Santyl) 1 applic DAILY TOP Last administered on 10/14/16 08:35; Admin Dose 1 APPLIC; Start 10/08/16 at 20:00 Nystatin (Nystatin Powder) 1 applic BID TOP Last administered on 10/14/16 08: 35; Admin Dose 1 APPLIC; Start 10/08/16 at 21:00 Collagenase 1 applic 1 applic PRN PRN TOP WOUND CARE Last administered on 07:54; Admin Dose 1 APPLIC; Start 10/08/16 at 17:30 Norepinephrine 16 mg/Dextrose 500 ml @ 1.87 mls/hr TITRATE IV ; Start 10/10/16 at 16:00 Potassium Chloride/Dextrose/ Sod Cl 1,000 ml @ 50 mls/hr Q20H IV Last administered on 10/14/16 04:38; Admin Dose 50 MLS/HR; Start 10/11/16 at 12:30 Fentanyl/Dextrose (D5W) 100 ml @ 2.5 mls/hr TITRATE IV Last administered on 12:04; Admin Dose 10 MLS/HR; Start 10/11/16 at 18:00 Enoxaparin Sodium (Lovenox) 80 mg Q12 SC Last administered on 10/14/16t 08:16; Admin Dose 80 MG; Start 10/13/16 at 21:00 JAN ZHANG Oct 14, 2016 14:59
--- NOTE | 2016-10-14 18:10 | PN ---
Date/Time of Note Date/Time of Note DATE: 10/14/16 TIME: 18:09 Assessment/Plan Lines/Catheters IV Catheter Type (from Nrsg): Central Line Tang in Place (from Nrsg): Yes Assessment/Plan Chief Complaint/Hosp Course IMPRESSION 1. Pulmonary embolism. 2. Pneumonia. 3 Pleural effusion RECOMMENDATIONS: SP CT placement will continue CT sxn plan for trach Problems: Subjective 24 Hr Interval Summary Constitutional: improved Pain Control: mild Exam/Review of Systems Vital Signs Vitals Vital Signs Date Time Temp Pulse Resp B/P Pulse Ox O2 Delivery O2 Flow Rate FiO2 10/14/16 18:00 101.1 83 16 98/67 99 Mechanical Ventilator 10/14/16 17:30 30 10/12/16 13:45 15.0 Intake and Output 10/13/16 10/13/16 10/14/16 15:00 23:00 07:00 Intake Total 954 ml 1063 ml 892 ml Output Total 135 ml 750 ml 815 ml Balance 819 ml 313 ml 77 ml Exam Neck: non-tender, supple Respiratory: clear to auscultation, normal air movement Cardiovascular: nl pulses, regular rate and rhythm Gastrointestinal: nl liver, spleen, non-tender, soft Results Result Diagram: 10/14/16 0430 10/14/16 043 YOUNG HAY MD Oct 14, 2016 18:10
[2016-10-14] MEDS: ACETAMINOPHEN 650MG/20.3ML CUP NGT PRN (19:56)
[2016-10-15] VITALS (58 sets, daily range): BP systolic 86–129; BP diastolic 55–96; PULSE 69–112; RESP 11–28
[2016-10-15] MEDS: PROPOFOL 100 ML IV SCH ×2 (01:30→13:17)
[2016-10-15] MEDS: MIDAZOLAM 50 MG in DEXTROSE 5% 40 ML IV SCH ×4 (04:12→22:36)
[2016-10-15 05:08] LABS: BASOPHIL # 0.1 10^3/ul (0.0-0.1); BASOPHILS % 0.5 % (0.0-2.0); EOSINOPHILS # 1.6 10^3/ul (0.0-0.5); EOSINOPHILS % 15.6 % (0.0-7.0); HEMATOCRIT 34.6 % (42.0-52.0); HEMOGLOBIN 11.3 g/dl (14.0-18.0); LYMPHOCYTES # 1.9 10^3/ul (0.8-2.9); LYMPHOCYTES % 19.3 % (15.0-51.0); MEAN CORPUSCULAR HEMOGLOBIN 28.7 pg (29.0-33.0); MEAN CORPUSCULAR HGB CONC 32.6 g/dl (32.0-37.0); MEAN CORPUSCULAR VOLUME 88.1 fl (82.0-101.0); MEAN PLATELET VOLUME 10.5 fl (7.4-10.4); MONOCYTE # 1.9 10^3/ul (0.3-0.9); MONOCYTES % 18.7 % (0.0-11.0); NEUTROPHIL # 4.6 10^3/ul (1.6-7.5); NEUTROPHILS % 45.9 % (39.0-77.0); PLATELET COUNT 305 10^3/UL (140-440); RED BLOOD COUNT 3.92 10^6/ul (4.70-6.10); RED CELL DISTRIBUTION WIDTH 15.2 % (11.5-14.5); UNCORRECTED WBC 10.1 10^3/ul (4.8-10.8); WHITE BLOOD COUNT 10.1 10^3/ul (4.8-10.8)
[2016-10-15 05:27] LABS: CREATININE 0.6 mg/dl (0.61-1.24)
[2016-10-15 05:28] LABS: PHOSPHORUS 3.4 mg/dl (2.5-4.9)
[2016-10-15 05:29] LABS: CALCIUM 8.1 mg/dl (8.4-10.2); MAGNESIUM 1.7 mg/dl (1.7-2.5)
[2016-10-15 06:03] LABS: CONDITION 1; LH ANALYZER COMMENTS 1
[2016-10-15] MEDS ORDERED: MAGNESIUM SULFATE 2 GM/50 ML 50 ML IVPB ONE (06:30)
[2016-10-15] MEDS: FENTAnyl 1,000 MCG in DEXTROSE 5% 80 ML IV SCH ×2 (07:55→19:19)
--- NOTE | 2016-10-15 08:12 | PN ---
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 Continue anticoagulation if no contraindication coreg in the near future as bp low now prn lasix as bp allows Subjective 24 Hr Interval Summary Free Text/Dictation The patient with no cahgne overnight Exam/Review of Systems Vital Signs Vitals Vital Signs Date Time Temp Pulse Resp B/P Pulse Ox O2 Delivery O2 Flow Rate FiO2 10/15/16 06:30 73 16 104/76 10/15/16 06:00 100 Mechanical Ventilator 10/15/16 04:50 30 10/15/16 04:00 99.5 10/12/16 13:45 15.0 Intake and Output 10/14/16 10/14/16 10/15/16 15:00 23:00 07:00 Intake Total 920 ml 1100 ml 866 ml Output Total 650 ml 880 ml 630 ml Balance 270 ml 220 ml 236 ml Results Result Diagram: 10/15/16 0350 10/15/16 0350 Results 24 hrs Laboratory Tests Test 10/15/16 03:50 Anion Gap 9 Basophils # 0.1 Basophils % 0.5 Blood Morphology Comment Blood Urea Nitrogen 14 Calcium Level 8.1 L Carbon Dioxide Level 33 H Chloride Level 103 Creatinine 0.60 L Eosinophils # 1.6 H Eosinophils % 15.6 H Glucose Level 86 Hematocrit 34.6 L Hemoglobin 11.3 L Lymphocytes # 1.9 Lymphocytes % 19.3 Magnesium Level 1.7 Mean Corpuscular Hemoglobin 28.7 L Mean Corpuscular Hemoglobin Concent 32.6 Mean Corpuscular Volume 88.1 Mean Platelet Volume 10.5 H Monocytes # 1.9 H Monocytes % 18.7 H Neutrophils # 4.6 Neutrophils % 45.9 Nucleated Red Blood Cells # 0.0 Nucleated Red Blood Cells % 0.0 Phosphorus Level 3.4 Platelet Count 305 Potassium Level 4.0 Red Blood Count 3.92 L Red Cell Distribution Width 15.2 H Sodium Level 141 White Blood Count 10.1 # Medications Medications Current Medications Lorazepam (Ativan) 0.5 mg Q6H PRN IV ANXIETY Last administered on 10/12/16 20: 09; Admin Dose 0.5 MG; Start 09/15/16 at 18:00 Ondansetron HCl (Zofran Inj) 4 mg Q6H PRN IV NAUSEA AND/OR VOMITING; Start at 18:00 Morphine Sulfate (morphine) 2 mg Q4H PRN IV PAIN LEVEL 7-10 Last administered on 10/11/16 23:27; Admin Dose 2 MG; Start 09/15/16 at 18:00 Haloperidol 5 mg 5 mg Q6H PRN IM AGITATION Last administered on 09/19/16at 10: 40; Admin Dose 5 MG; Start 09/18/16 at 11:30 Propofol (Diprivan) 100 ml @ 2.478 mls/ hr Q12H IV Last administered on 02:22; Admin Dose 24.78 MLS/HR; Start 09/19/16 at 13:30 Famotidine (Pepcid Iv) 20 mg BID IV Last administered on 10/14/16 20:00; Admin Dose 20 MG; Start 09/19/16 at 21:00 Metoclopramide HCl 10 mg 10 mg Q12 IV Last administered on 10/14/16 20:00; Admin Dose 10 MG; Start 09/24/16 at 11:30 Midazolam HCl/ Dextrose (Versed/D5W) 50 ml @ 2 mls/hr TITRATE IV Last administered on 10/15/16 04:12; Admin Dose 10 MLS/HR; Start 09/25/16 at 12:00; Status Future hold Acetaminophen (Tylenol Liquid) 650 mg Q4H PRN NGT PAIN AND OR ELEVATED TEMP Last administered on 10/14/16 19:56; Admin Dose 650 MG; Start 09/28/16 at 13:30 Lisinopril 2.5 mg 2.5 mg DAILY GTB Last administered on 10/14/16 08:15; Admin Dose 2.5 MG; Start 10/02/16 at 09:00 Meropenem/Sodium Chloride (Merrem/NS) 100 ml @ 200 mls/hr Q12 IVPB Last administered on 10/14/16 20:01; Admin Dose 200 MLS/HR; Start 10/08/16 at 18:30 Collagenase (Santyl) 1 applic DAILY TOP Last administered on 10/14/16 08:35; Admin Dose 1 APPLIC; Start 10/08/16 at 20:00 Nystatin (Nystatin Powder) 1 applic BID TOP Last administered on 10/14/16 20: 03; Admin Dose 1 APPLIC; Start 10/08/16 at 21:00 Collagenase 1 applic 1 applic PRN PRN TOP WOUND CARE Last administered on 07:54; Admin Dose 1 APPLIC; Start 10/08/16 at 17:30 Norepinephrine 16 mg/Dextrose 500 ml @ 1.87 mls/hr TITRATE IV ; Start 10/10/16 at 16:00 Potassium Chloride/Dextrose/ Sod Cl 1,000 ml @ 50 mls/hr Q20H IV Last administered on 10/14/16 22:48; Admin Dose 50 MLS/HR; Start 10/11/16 at 12:30 Fentanyl/Dextrose (D5W) 100 ml @ 2.5 mls/hr TITRATE IV Last administered on 07:55; Admin Dose 10 MLS/HR; Start 10/11/16 at 18:00 Enoxaparin Sodium 80 mg 80 mg Q12 SC Last administered on 10/14/16 20:02; Admin Dose 80 MG; Start 10/13/16 at 21:00 Magnesium Sulfate (Magnesium Sulfate 2 Gm/50 ml) 50 ml @ 25 mls/hr ONCE ONCE IVPB Last administered on 10/15/16 06:41; Admin Dose 25 MLS/HR; Start at 06:30; Stop 10/15/16 at 08:29 RONAK BAE MD Oct 15, 2016 08:12
[2016-10-15] MEDS: LISINOPRIL 5 MG TAB GTB SCH (09:00)
--- NOTE | 2016-10-15 09:01 | CONS ---
Date/Time of Note Date/Time of Note DATE: 10/15/16 TIME: 08:58 Assessment/Plan Assessment/Plan Additional Assessment/Plan Assessment recommendations; next 1. Patient admitted with right-sided pneumonia with empyema status post VATS procedure and chest tube placement currently still draining about half a liter every day. Precluding chest tube removal. 2. Severe history of drug abuse with drug withdrawal whenever sedation is weaned. 3. Prolonged mechanical ventilation with endotracheal intubation. 4. Patient failed an extubation trial requiring reintubation within 2 hours. The current treatment ,ventilator settings currently the patient is on assist control 16 total volume 500 PEEP of 5 and 30% FiO2. Patient will need to have a tracheostomy performed however the patient's sister cannot be located. Consultation Date/Type/Reason Admit Date/Time Sep 15, 2016 at 16:54 Initial Consult Date 09/29/16 Type of Consultation: Infectious Disease Referring Provider: JAN ZHANG 24 HR Interval Summary Free Text/Dictation Patient's condition is stable patient has remained hemodynamically stable. Versed dosing was increased because of increasing agitation. General examination; middle aged man or intubated sedated currently in no distress. Exam/Review of Systems Vital Signs Vitals Vital Signs Date Time Temp Pulse Resp B/P Pulse Ox O2 Delivery O2 Flow Rate FiO2 10/15/16 08:00 99.4 74 16 107/74 100 Mechanical Ventilator 10/15/16 04:50 30 10/12/16 13:45 15.0 Intake and Output 10/14/16 10/14/16 10/15/16 15:00 23:00 07:00 Intake Total 920 ml 1100 ml 866 ml Output Total 650 ml 880 ml 630 ml Balance 270 ml 220 ml 236 ml Exam HEENT examination; supple neck, no JVD, no lymphadenopathy. No neck masses. No thyromegaly. Pupils are midsize reactive to light. Chest examination; clear to auscultation bilaterally S1-S2 audible no murmurs. Right-sided chest tube in place. Next Abdomen examination; soft, nondistended, no organomegaly. Bowel sounds audible. Extremity examination; no peripheral edema. Pulses 2+ bilaterally. 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 Results Result Diagram: 10/15/16 0350 10/15/16 0350 Results 24 hrs Laboratory Tests Test 10/15/16 03:50 Anion Gap 9 Basophils # 0.1 Basophils % 0.5 Blood Morphology Comment Blood Urea Nitrogen 14 Calcium Level 8.1 L Carbon Dioxide Level 33 H Chloride Level 103 Creatinine 0.60 L Eosinophils # 1.6 H Eosinophils % 15.6 H Glucose Level 86 Hematocrit 34.6 L Hemoglobin 11.3 L Lymphocytes # 1.9 Lymphocytes % 19.3 Magnesium Level 1.7 Mean Corpuscular Hemoglobin 28.7 L Mean Corpuscular Hemoglobin Concent 32.6 Mean Corpuscular Volume 88.1 Mean Platelet Volume 10.5 H Monocytes # 1.9 H Monocytes % 18.7 H Neutrophils # 4.6 Neutrophils % 45.9 Nucleated Red Blood Cells # 0.0 Nucleated Red Blood Cells % 0.0 Phosphorus Level 3.4 Platelet Count 305 Potassium Level 4.0 Red Blood Count 3.92 L Red Cell Distribution Width 15.2 H Sodium Level 141 White Blood Count 10.1 # Medications Medications Current Medications Lorazepam (Ativan) 0.5 mg Q6H PRN IV ANXIETY Last administered on 10/12/16 20: 09; Admin Dose 0.5 MG; Start 09/15/16 at 18:00 Ondansetron HCl (Zofran Inj) 4 mg Q6H PRN IV NAUSEA AND/OR VOMITING; Start at 18:00 Morphine Sulfate (morphine) 2 mg Q4H PRN IV PAIN LEVEL 7-10 Last administered on 10/11/16 23:27; Admin Dose 2 MG; Start 09/15/16 at 18:00 Haloperidol 5 mg 5 mg Q6H PRN IM AGITATION Last administered on 09/19/16at 10: 40; Admin Dose 5 MG; Start 09/18/16 at 11:30 Propofol (Diprivan) 100 ml @ 2.478 mls/ hr Q12H IV Last administered on 02:22; Admin Dose 24.78 MLS/HR; Start 09/19/16 at 13:30 Famotidine (Pepcid Iv) 20 mg BID IV Last administered on 10/14/16 20:00; Admin Dose 20 MG; Start 09/19/16 at 21:00 Metoclopramide HCl 10 mg 10 mg Q12 IV Last administered on 10/14/16 20:00; Admin Dose 10 MG; Start 09/24/16 at 11:30 Midazolam HCl/ Dextrose (Versed/D5W) 50 ml @ 2 mls/hr TITRATE IV Last administered on 10/15/16 04:12; Admin Dose 10 MLS/HR; Start 09/25/16 at 12:00; Status Future hold Acetaminophen (Tylenol Liquid) 650 mg Q4H PRN NGT PAIN AND OR ELEVATED TEMP Last administered on 10/14/16 19:56; Admin Dose 650 MG; Start 09/28/16 at 13:30 Lisinopril 2.5 mg 2.5 mg DAILY GTB Last administered on 10/14/16 08:15; Admin Dose 2.5 MG; Start 10/02/16 at 09:00 Meropenem/Sodium Chloride (Merrem/NS) 100 ml @ 200 mls/hr Q12 IVPB Last administered on 10/14/16 20:01; Admin Dose 200 MLS/HR; Start 10/08/16 at 18:30 Collagenase (Santyl) 1 applic DAILY TOP Last administered on 10/14/16 08:35; Admin Dose 1 APPLIC; Start 10/08/16 at 20:00 Nystatin (Nystatin Powder) 1 applic BID TOP Last administered on 10/14/16 20: 03; Admin Dose 1 APPLIC; Start 10/08/16 at 21:00 Collagenase 1 applic 1 applic PRN PRN TOP WOUND CARE Last administered on 07:54; Admin Dose 1 APPLIC; Start 10/08/16 at 17:30 Norepinephrine 16 mg/Dextrose 500 ml @ 1.87 mls/hr TITRATE IV ; Start 10/10/16 at 16:00 Potassium Chloride/Dextrose/ Sod Cl 1,000 ml @ 50 mls/hr Q20H IV Last administered on 10/14/16 22:48; Admin Dose 50 MLS/HR; Start 10/11/16 at 12:30 Fentanyl/Dextrose (D5W) 100 ml @ 2.5 mls/hr TITRATE IV Last administered on 07:55; Admin Dose 10 MLS/HR; Start 10/11/16 at 18:00 Enoxaparin Sodium (Lovenox) 80 mg Q12 SC Last administered on 10/14/16 20:02; Admin Dose 80 MG; Start 10/13/16 at 21:00 ILYA HILL Oct 15, 2016 09:01
[2016-10-15] MEDS: FAMOTIDINE 20 MG INJ IV SCH ×2 (09:16→20:34)
[2016-10-15] MEDS: METOCLOPRAMIDE 10 MG INJ IV SCH ×2 (09:16→20:34)
[2016-10-15] MEDS: MEROPENEM 1 GM in SOD CHLORIDE 0.9% 100 ML IVPB SCH ×2 (09:19→20:35)
[2016-10-15] MEDS: COLLAGENASE 30 GM TUBE TOP SCH (09:19)
[2016-10-15] MEDS: NYSTATIN 30 GM POWDER BTL TOP SCH ×2 (09:19→20:35)
[2016-10-15] MEDS: ENOXAPARIN 80 MG/0.8 ML SYG SC SCH ×2 (09:21→21:11)
--- NOTE | 2016-10-15 10:00 | RADRPT ---
PROCEDURE: Chest 1 views. CLINICAL INDICATION: Respiratory failure TECHNIQUE: AP views of the chest were obtained. COMPARISON: October 12, 2016 FINDINGS: The heart is large. Endotracheal and nasogastric tubes are stable and appear in grossly appropriate location. Left-sided central line is unchanged. Diffuse interstitial prominence is seen in both lyndon ngs. Right lower lobe infiltrates have decreased. Minimal residual remains. Right-sided chest tub e is stable. No pneumothorax as visualized. Retrocardiac opacity is observed. Osseous structures are intact. IMPRESSION: Cardiomegaly . Continued diffuse mild interstitial prominence in both lungs. Interval decrease in right lower lobe infiltrates. Mild basilar residual remains. Stable right-sided chest tube. No visualized pneumothorax. Retrocardiac opacity that may reflect left lower lobe atelectasis or infiltrate combined with small pleural effusion. RPTAT: AA .Leif Hernandez MD, Date Time Electronically viewed and signed by .Leif Hernandez MD, on 10/15/2016 09:59 .P/
--- NOTE | 2016-10-15 11:51 | PN ---
Date/Time of Note Date/Time of Note DATE: 10/15/16 TIME: 11:50 Assessment/Plan Lines/Catheters IV Catheter Type (from Nrsg): Central Line Tang in Place (from Nrsg): Yes Assessment/Plan Chief Complaint/Hosp Course IMPRESSION 1. Pulmonary embolism. 2. Pneumonia. 3 Pleural effusion RECOMMENDATIONS: SP CT placement will continue CT sxn plan for trach Problems: Subjective 24 Hr Interval Summary Constitutional: improved Pain Control: mild Exam/Review of Systems Vital Signs Vitals Vital Signs Date Time Temp Pulse Resp B/P Pulse Ox O2 Delivery O2 Flow Rate FiO2 10/15/16 10:00 112 24 129/96 97 Mechanical Ventilator 10/15/16 08:00 99.4 10/15/16 04:50 30 10/12/16 13:45 15.0 Intake and Output 10/14/16 10/14/16 10/15/16 15:00 23:00 07:00 Intake Total 920 ml 1100 ml 866 ml Output Total 650 ml 880 ml 630 ml Balance 270 ml 220 ml 236 ml Exam ENMT: mucosa pink and moist, nl external ears & nose, nl lips & teeth, nl nasal mucosa & septum Neck: non-tender, supple Respiratory: clear to auscultation, normal air movement Cardiovascular: nl pulses, regular rate and rhythm Results Result Diagram: 10/15/1634910/15/16349 YOUNG HAY MD Oct 15, 2016 11:51
--- NOTE | 2016-10-15 14:08 | CONS ---
Date/Time of Note Date/Time of Note DATE: 10/15/16 TIME: 14:02 Assessment/Plan Assessment/Plan Chief Complaint/Hosp Course - Sepsis d/t PNA with parapneumonic effusion. - PNA with parapneumonic effusion. Could be started as CAP, other considerations include aspiration PNA. Endotracheal cx grew Stephany albicans. - recurrent right pleural effusion. s/p diagnostic thoracentesis on 09/22/16. It showed glu=74 pro <2, HNZ=[id number]. No malignancy on cytology. s/p repeat thoracentesis 10/01/16. Again, no malignancy on cytology. Right chest tube placed 10/07/16. - recurrent fever. Repeat procalcitonin downward trending, 0.22 on 10/08/16. 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 Acute hepatitis panel negative - drug rash likely d/t pip/tazo - resolving - mild leukopenia - resolved - s/p hyperkalemia and hypokalemia - s/p hyponatremia and hypernatremia - s/p lactic acidosis - s/p Vanco (09/19/16-10/04/16, 10/08/16-10/10/16), azithromycin (10/02/16-10/06/16) , pip/tazo (09/29/16-10/08/16), Tamiflu (10/02/16-10/08/16) - Negative rapid influenza screen, PPD, legionella antigen, mycoplasma pneumoniae, chlamydia pneumoniae serology, and respiratory viral panel; AFB smear negative (09/29, 09/30 & 10/01) Recommendations: - continue meropenem (10/08/16-) to complete a 7-8 day course for HCAP - f/u repeat chest tube fluid cultures (negative to date), fungus culture ( pending), and AFB (prelim shows no AFB) - f/u repeat blood (pending) and urine (negative to date) cultures on 10/14 - trend fever curve - monitor rash (resolving) - management d/w [facility] MACHINIST - Above d/w Dr. Osullivan - critical care time spent: 40 min Problems: Consultation Date/Type/Reason Admit Date/Time Sep 15, 2016 at 16:54 Initial Consult Date 09/29/16 Type of Consultation: Infectious Disease Referring Provider: JAN ZHANG 24 HR Interval Summary Free Text/Dictation Tmax 101.9. Afebrile today. Remains intubated, sedated, and SW attempting to arrange family meeting with pt's sister to discuss trach placement per RN Juan Diego. Unable to perform ROS d/t sedation. Exam/Review of Systems Vital Signs Vitals Vital Signs Date Time Temp Pulse Resp B/P Pulse Ox O2 Delivery O2 Flow Rate FiO2 10/15/16 12:55 79 16 98 30 10/15/16 10:00 129/96 Mechanical Ventilator 10/15/16 08:00 99.4 10/12/16 13:45 15.0 Intake and Output 10/14/16 10/14/16 10/15/16 15:00 23:00 07:00 Intake Total 920 ml 1100 ml 866 ml Output Total 650 ml 880 ml 630 ml Balance 270 ml 220 ml 236 ml Exam Constitutional: other (orally intubated and sedated on Fentanyl and propofol), well developed Head: atraumatic, normocephalic ENMT: intubated. No obvious oral thrush noted. Mucous membranes are pink and dry. Neck: supple, No masses Respiratory: clear to auscultation. other (left subclavian central line c/d/i) . Right chest tube intact with serous drainage. Cardiovascular: nl pulses, regular rate and rhythm Gastrointestinal: bowel sounds, other (NGT with TF intact), soft Genitourinary - Male: nl penis, nl scrotum, other (Tang cath intact with clear dark yellow urine) Extremities: 1+ LLE edema, normal pulses, No clubbing, No cyanosis Neurological: other (sedated). BUE in wrist restraints Skin: nl turgor, rash (petechial rash - resolving) other (Multiple tattoos including 2 flags on the left bicep area and the name Missy on LUE; stage 3 sacral decub - see photo in chart and nursing documentation for details) Results Result Diagram: 10/15/16 0350 10/15/16 0350 Results 24 hrs Laboratory Tests Test 10/15/16 03:50 Anion Gap 9 Basophils # 0.1 Basophils % 0.5 Blood Morphology Comment Blood Urea Nitrogen 14 Calcium Level 8.1 L Carbon Dioxide Level 33 H Chloride Level 103 Creatinine 0.60 L Eosinophils # 1.6 H Eosinophils % 15.6 H Glucose Level 86 Hematocrit 34.6 L Hemoglobin 11.3 L Lymphocytes # 1.9 Lymphocytes % 19.3 Magnesium Level 1.7 Mean Corpuscular Hemoglobin 28.7 L Mean Corpuscular Hemoglobin Concent 32.6 Mean Corpuscular Volume 88.1 Mean Platelet Volume 10.5 H Monocytes # 1.9 H Monocytes % 18.7 H Neutrophils # 4.6 Neutrophils % 45.9 Nucleated Red Blood Cells # 0.0 Nucleated Red Blood Cells % 0.0 Phosphorus Level 3.4 Platelet Count 305 Potassium Level 4.0 Red Blood Count 3.92 L Red Cell Distribution Width 15.2 H Sodium Level 141 White Blood Count 10.1 # Medications Medications Current Medications Lorazepam (Ativan) 0.5 mg Q6H PRN IV ANXIETY Last administered on 10/12/16 20: 09; Admin Dose 0.5 MG; Start 09/15/16 at 18:00 Ondansetron HCl (Zofran Inj) 4 mg Q6H PRN IV NAUSEA AND/OR VOMITING; Start at 18:00 Morphine Sulfate (morphine) 2 mg Q4H PRN IV PAIN LEVEL 7-10 Last administered on 10/11/16 23:27; Admin Dose 2 MG; Start 09/15/16 at 18:00 Haloperidol 5 mg 5 mg Q6H PRN IM AGITATION Last administered on 09/19/16at 10: 40; Admin Dose 5 MG; Start 09/18/16 at 11:30 Propofol (Diprivan) 100 ml @ 2.478 mls/ hr Q12H IV Last administered on 02:22; Admin Dose 24.78 MLS/HR; Start 09/19/16 at 13:30 Famotidine (Pepcid Iv) 20 mg BID IV Last administered on 10/15/16 09:16; Admin Dose 20 MG; Start 09/19/16 at 21:00 Metoclopramide HCl 10 mg 10 mg Q12 IV Last administered on 10/15/16 09:16; Admin Dose 10 MG; Start 09/24/16 at 11:30 Midazolam HCl/ Dextrose (Versed/D5W) 50 ml @ 2 mls/hr TITRATE IV Last administered on 10/15/16 09:21; Admin Dose 8 MLS/HR; Start 09/25/16 at 12:00; Status Future hold Acetaminophen (Tylenol Liquid) 650 mg Q4H PRN NGT PAIN AND OR ELEVATED TEMP Last administered on 10/14/16 19:56; Admin Dose 650 MG; Start 09/28/16 at 13:30 Lisinopril 2.5 mg 2.5 mg DAILY GTB Last administered on 10/14/16 08:15; Admin Dose 2.5 MG; Start 10/02/16 at 09:00 Meropenem/Sodium Chloride (Merrem/NS) 100 ml @ 200 mls/hr Q12 IVPB Last administered on 10/15/16 09:19; Admin Dose 200 MLS/HR; Start 10/08/16 at 18:30 Collagenase (Santyl) 1 applic DAILY TOP Last administered on 10/15/16 09:19; Admin Dose 1 APPLIC; Start 10/08/16 at 20:00 Nystatin (Nystatin Powder) 1 applic BID TOP Last administered on 10/15/16 09: 19; Admin Dose 1 APPLIC; Start 10/08/16 at 21:00 Collagenase 1 applic 1 applic PRN PRN TOP WOUND CARE Last administered on 07:54; Admin Dose 1 APPLIC; Start 10/08/16 at 17:30 Norepinephrine 16 mg/Dextrose 500 ml @ 1.87 mls/hr TITRATE IV ; Start 10/10/16 at 16:00 Potassium Chloride/Dextrose/ Sod Cl 1,000 ml @ 50 mls/hr Q20H IV Last administered on 10/14/16 22:48; Admin Dose 50 MLS/HR; Start 10/11/16 at 12:30 Fentanyl/Dextrose (D5W) 100 ml @ 2.5 mls/hr TITRATE IV Last administered on 07:55; Admin Dose 10 MLS/HR; Start 10/11/16 at 18:00 Enoxaparin Sodium (Lovenox) 80 mg Q12 SC Last administered on 10/15/16t 09:21; Admin Dose 80 MG; Start 10/13/16 at 21:00 Procedures Procedures CXR 10/15/16: Cardiomegaly . Continued diffuse mild interstitial prominence in both lungs. Interval decrease in right lower lobe infiltrates. Mild basilar residual remains. Stable right-sided chest tube. No visualized pneumothorax. Retrocardiac opacity that may reflect left lower lobe atelectasis or infiltrate combined with small pleural effusion. LAURA OJEDA NP Oct 15, 2016 14:08
--- NOTE | 2016-10-15 21:30 | PN ---
Date/Time of Note Date/Time of Note DATE: 10/15/16 TIME: 21:27 Assessment/Plan VTE Prophylaxis VTE Prophylaxis Intervention: SCD's Lines/Catheters IV Catheter Type (from Nrs): Central Line Central line still needed: Yes Urinary Cath still in place: Yes Reason Cath still needed: urinary retention Assessment/Plan Assessment/Plan 1. Acute respiratory failure patient, failed extubation. Continue ventilator support. Plan for tracheostomy if family agrees. Dr. Aquino group is following the patient from pulmonology consultation. - per Dr. Aquino from pulmonology consultation. -Continue bronchodilators and vent weaning per pulmonology. 2. Right-sided pneumonia with complicated parapneumonic effusion, status post thoracentesis. SP chest drain placement. antibiotics - per Dr. Osullivan in Infectious Disease 3. Acute pulmonary emboli. 4. 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 Overall negative I/Os, Appreciate cardiology recommendations. CXR reviewed 5. Encephalopathy, likely toxic metabolic. Continue to monitor. Currently on sedation. 6. Intermediate QuantiFERON gold test, AFB Negative, Only droplet precaution 7. Sepsis secondary to #2, resolved. 8. Pepcid for peptic ulcer disease prophylaxis. Further recommendations based on clinical course. Critical care time spent: 40 min. Plan of care discussed with Dr. Patel. Subjective 24 Hr Interval Summary Free Text/Dictation NAD. Afebrile, remains intubated, Plan for Trach and PEG tomorrow.no new issues reported. DW staff Constitutional: requiring IVF, requiring O2 Exam/Review of Systems Vital Signs Vitals Vital Signs Date Time Temp Pulse Resp B/P Pulse Ox O2 Delivery O2 Flow Rate FiO2 10/15/16 19:16 71 16 98 30 10/15/16 18:30 106/74 10/15/16 18:00 Mechanical Ventilator 10/15/16 16:00 98.8 10/12/16 13:45 15.0 Intake and Output 10/14/16 10/14/16 10/15/16 15:00 23:00 07:00 Intake Total 920 ml 1100 ml 866 ml Output Total 650 ml 880 ml 630 ml Balance 270 ml 220 ml 236 ml Exam Constitutional: alert, frail, non-verbal, well developed Psych: nl mood/affect Head: atraumatic Eyes: PERRL ENMT: nl external ears & nose Neck: non-tender Respiratory: diminished breath sounds Gastrointestinal: non-tender, soft Genitourinary - Male: other (FC- yellow/clear urine) Musculoskeletal: nl extremities to inspection Extremities: normal pulses Neurological: lethargic Results Result Diagram: 10/15/16 0350 10/15/16 0350 Results 24 hrs Laboratory Tests Test 10/15/16 03:50 Anion Gap 9 Basophils # 0.1 Basophils % 0.5 Blood Morphology Comment Blood Urea Nitrogen 14 Calcium Level 8.1 L Carbon Dioxide Level 33 H Chloride Level 103 Creatinine 0.60 L Eosinophils # 1.6 H Eosinophils % 15.6 H Glucose Level 86 Hematocrit 34.6 L Hemoglobin 11.3 L Lymphocytes # 1.9 Lymphocytes % 19.3 Magnesium Level 1.7 Mean Corpuscular Hemoglobin 28.7 L Mean Corpuscular Hemoglobin Concent 32.6 Mean Corpuscular Volume 88.1 Mean Platelet Volume 10.5 H Monocytes # 1.9 H Monocytes % 18.7 H Neutrophils # 4.6 Neutrophils % 45.9 Nucleated Red Blood Cells # 0.0 Nucleated Red Blood Cells % 0.0 Phosphorus Level 3.4 Platelet Count 305 Potassium Level 4.0 Red Blood Count 3.92 L Red Cell Distribution Width 15.2 H Sodium Level 141 White Blood Count 10.1 # Medications Medications Current Medications Lorazepam (Ativan) 0.5 mg Q6H PRN IV ANXIETY Last administered on 10/12/16 20: 09; Admin Dose 0.5 MG; Start 09/15/16 at 18:00 Ondansetron HCl (Zofran Inj) 4 mg Q6H PRN IV NAUSEA AND/OR VOMITING; Start at 18:00 Morphine Sulfate (morphine) 2 mg Q4H PRN IV PAIN LEVEL 7-10 Last administered on 10/11/16 23:27; Admin Dose 2 MG; Start 09/15/16 at 18:00 Haloperidol 5 mg 5 mg Q6H PRN IM AGITATION Last administered on 09/19/16at 10: 40; Admin Dose 5 MG; Start 09/18/16 at 11:30 Propofol (Diprivan) 100 ml @ 2.478 mls/ hr Q12H IV Last administered on 02:22; Admin Dose 24.78 MLS/HR; Start 09/19/16 at 13:30 Famotidine (Pepcid Iv) 20 mg BID IV Last administered on 10/15/16 20:34; Admin Dose 20 MG; Start 09/19/16 at 21:00 Metoclopramide HCl 10 mg 10 mg Q12 IV Last administered on 10/15/16 20:34; Admin Dose 10 MG; Start 09/24/16 at 11:30 Midazolam HCl/ Dextrose (Versed/D5W) 50 ml @ 2 mls/hr TITRATE IV Last administered on 10/15/16 15:46; Admin Dose 8 MLS/HR; Start 09/25/16 at 12:00; Status Future hold Acetaminophen (Tylenol Liquid) 650 mg Q4H PRN NGT PAIN AND OR ELEVATED TEMP Last administered on 10/14/16 19:56; Admin Dose 650 MG; Start 09/28/16 at 13:30 Lisinopril 2.5 mg 2.5 mg DAILY GTB Last administered on 10/14/16 08:15; Admin Dose 2.5 MG; Start 10/02/16 at 09:00 Meropenem/Sodium Chloride (Merrem/NS) 100 ml @ 200 mls/hr Q12 IVPB Last administered on 10/15/16 20:35; Admin Dose 200 MLS/HR; Start 10/08/16 at 18:30 Collagenase (Santyl) 1 applic DAILY TOP Last administered on 10/15/16 09:19; Admin Dose 1 APPLIC; Start 10/08/16 at 20:00 Nystatin (Nystatin Powder) 1 applic BID TOP Last administered on 10/15/16 20: 35; Admin Dose 1 APPLIC; Start 10/08/16 at 21:00 Collagenase 1 applic 1 applic PRN PRN TOP WOUND CARE Last administered on 07:54; Admin Dose 1 APPLIC; Start 10/08/16 at 17:30 Norepinephrine 16 mg/Dextrose 500 ml @ 1.87 mls/hr TITRATE IV ; Start 10/10/16 at 16:00 Potassium Chloride/Dextrose/ Sod Cl 1,000 ml @ 50 mls/hr Q20H IV Last administered on 10/14/16 22:48; Admin Dose 50 MLS/HR; Start 10/11/16 at 12:30 Fentanyl/Dextrose (D5W) 100 ml @ 2.5 mls/hr TITRATE IV Last administered on 19:19; Admin Dose 10 MLS/HR; Start 10/11/16 at 18:00 Enoxaparin Sodium (Lovenox) 80 mg Q12 SC Last administered on 10/15/16 21:11; Admin Dose 80 MG; Start 10/13/16 at 21:00 CECY BELTRAN Oct 15, 2016 21:30
[2016-10-16] VITALS (78 sets, daily range): BP systolic 96–165; BP diastolic 61–103; PULSE 65–135; RESP 0–33
[2016-10-16] MEDS: PROPOFOL 100 ML IV SCH ×2 (00:28→13:30)
[2016-10-16] MEDS: D5-NS + KCL 20 MEQ 1,000 ML IV SCH ×2 (01:25→18:57)
[2016-10-16] MEDS: FENTAnyl 1,000 MCG in DEXTROSE 5% 80 ML IV SCH ×2 (04:27→16:18)
[2016-10-16] MEDS: MIDAZOLAM 50 MG in DEXTROSE 5% 40 ML IV SCH ×4 (04:30→21:39)
[2016-10-16 04:43] LABS: HEMATOCRIT 34.7 % (42.0-52.0); HEMOGLOBIN 11.4 g/dl (14.0-18.0); MEAN CORPUSCULAR HEMOGLOBIN 28.8 pg (29.0-33.0); MEAN CORPUSCULAR HGB CONC 32.9 g/dl (32.0-37.0); MEAN CORPUSCULAR VOLUME 87.4 fl (82.0-101.0); MEAN PLATELET VOLUME 10.5 fl (7.4-10.4); PLATELET COUNT 331 10^3/UL (140-440); RED BLOOD COUNT 3.97 10^6/ul (4.70-6.10); RED CELL DISTRIBUTION WIDTH 14.9 % (11.5-14.5); UNCORRECTED WBC 10.4 10^3/ul (4.8-10.8); WHITE BLOOD COUNT 10.4 10^3/ul (4.8-10.8)
[2016-10-16 04:51] LABS: CONDITION 1; LH ANALYZER COMMENTS 1
[2016-10-16 05:07] LABS: ALBUMIN 2.6 g/dl (3.3-4.9)
[2016-10-16 05:08] LABS: POTASSIUM 4.2 mmol/L (3.5-5.1)
[2016-10-16 05:10] LABS: ALBUMIN/GLOBULIN RATIO 0.72; BILIRUBIN,INDIRECT 0.2 mg/dl (0-1.1); BILIRUBIN,TOTAL 0.2 mg/dl (0.2-1.3); CALCIUM 8.3 mg/dl (8.4-10.2); CREATININE 0.61 mg/dl (0.61-1.24); TOTAL PROTEIN 6.2 g/dl (6.1-8.1)
--- NOTE | 2016-10-16 07:31 | CONS ---
Date/Time of Note Date/Time of Note DATE: 10/16/16 TIME: 07:25 Assessment/Plan Assessment/Plan Additional Assessment/Plan Assessment recommendations; next 1. Patient admitted with right-sided pneumonia requiring a VATS procedure as well as chest tube chest tube still draining about 200 mL per day therefore a chest tube cannot be removed as of yet. 2. Significant over drug withdrawal preventing extubation from ventilator. Patient was given extubation trial because the patient did meet extubation criteria however he decompensated requiring to be reintubated within 2 hours. 3. Family meeting to be done today regarding tracheostomy and PEG tube placement. At this time continue current ventilator settings but discontinue meropenem. Obtain follow-up chest x-ray. Consultation Date/Type/Reason Admit Date/Time Sep 15, 2016 at 16:54 Initial Consult Date 09/29/16 Type of Consultation: Infectious Disease Referring Provider: JAN ZHANG 24 HR Interval Summary Free Text/Dictation Patient condition is stable. Still requiring full ventilator support. As well as sedation and fentanyl drip for severe agitation and effects of drug withdrawal. Patient has remained hemodynamically stable. General examination; young man or intubated sedated currently in no distress. Exam/Review of Systems Vital Signs Vitals Vital Signs Date Time Temp Pulse Resp B/P Pulse Ox O2 Delivery O2 Flow Rate FiO2 10/16/16 06:00 84 16 113/85 98 Mechanical Ventilator 10/16/16 05:49 30 10/16/16 05:00 98.7 10/12/16 13:45 15.0 Intake and Output 10/15/16 10/15/16 10/16/16 15:00 23:00 07:00 Intake Total 320 ml 1474 ml 1094 ml Output Total 660 ml 1160 ml 750 ml Balance -340 ml 314 ml 344 ml Exam HEENT examination; supple neck, no JVD, no lymphadenopathy. Or intubated. Pupils are small bilaterally. Supple neck. No neck masses. No thyromegaly. Chest examination; diminished but clear breath sounds bilaterally. Right-sided chest tube in place. S1-S2 audible no murmurs regular rhythm. 150 mL of pleural fluid has been drained overnight into the Pleur-evac chamber. Abdomen examination; soft, nondistended, no organomegaly. Bowel sounds audible. There is no scrotal or penile edema. Extremity examination; no peripheral edema pulses 1+ bilaterally. WARP HAULER examination: patient is sedated. Results Result Diagram: 10/16/16 0400 10/16/16 0400 Results 24 hrs Laboratory Tests Test 10/16/16 04:00 Alanine Aminotransferase (ALT/SGPT) 34 Albumin 2.6 L Albumin/Globulin Ratio 0.72 Alkaline Phosphatase 113 Anion Gap 10 Aspartate Amino Transf (AST/SGOT) 40 Blood Morphology Comment Blood Urea Nitrogen 15 Calcium Level 8.3 L Carbon Dioxide Level 31 Chloride Level 102 Creatinine 0.61 Direct Bilirubin 0.00 Globulin 3.60 H Glucose Level 112 Hematocrit 34.7 L Hemoglobin 11.4 L Indirect Bilirubin 0.2 Mean Corpuscular Hemoglobin 28.8 L Mean Corpuscular Hemoglobin Concent 32.9 Mean Corpuscular Volume 87.4 Mean Platelet Volume 10.5 H Platelet Count 331 Potassium Level 4.2 Red Blood Count 3.97 L Red Cell Distribution Width 14.9 H Sodium Level 139 Total Bilirubin 0.2 Total Protein 6.2 White Blood Count 10.4 Medications Medications Current Medications Lorazepam (Ativan) 0.5 mg Q6H PRN IV ANXIETY Last administered on 10/12/16 20: 09; Admin Dose 0.5 MG; Start 09/15/16 at 18:00 Ondansetron HCl (Zofran Inj) 4 mg Q6H PRN IV NAUSEA AND/OR VOMITING; Start at 18:00 Morphine Sulfate (morphine) 2 mg Q4H PRN IV PAIN LEVEL 7-10 Last administered on 10/11/16 23:27; Admin Dose 2 MG; Start 09/15/16 at 18:00 Haloperidol 5 mg 5 mg Q6H PRN IM AGITATION Last administered on 09/19/16at 10: 40; Admin Dose 5 MG; Start 09/18/16 at 11:30 Propofol (Diprivan) 100 ml @ 2.478 mls/ hr Q12H IV Last administered on 02:22; Admin Dose 24.78 MLS/HR; Start 09/19/16 at 13:30 Famotidine (Pepcid Iv) 20 mg BID IV Last administered on 10/15/16 20:34; Admin Dose 20 MG; Start 09/19/16 at 21:00 Metoclopramide HCl 10 mg 10 mg Q12 IV Last administered on 10/15/16 20:34; Admin Dose 10 MG; Start 09/24/16 at 11:30 Midazolam HCl/ Dextrose (Versed/D5W) 50 ml @ 2 mls/hr TITRATE IV Last administered on 10/16/16 04:30; Admin Dose 8 MLS/HR; Start 09/25/16 at 12:00; Status Future hold Acetaminophen (Tylenol Liquid) 650 mg Q4H PRN NGT PAIN AND OR ELEVATED TEMP Last administered on 10/14/16 19:56; Admin Dose 650 MG; Start 09/28/16 at 13:30 Lisinopril 2.5 mg 2.5 mg DAILY GTB Last administered on 10/14/16 08:15; Admin Dose 2.5 MG; Start 10/02/16 at 09:00 Meropenem/Sodium Chloride (Merrem/NS) 100 ml @ 200 mls/hr Q12 IVPB Last administered on 10/15/16 20:35; Admin Dose 200 MLS/HR; Start 10/08/16 at 18:30 Collagenase (Santyl) 1 applic DAILY TOP Last administered on 10/15/16 09:19; Admin Dose 1 APPLIC; Start 10/08/16 at 20:00 Nystatin (Nystatin Powder) 1 applic BID TOP Last administered on 10/15/16 20: 35; Admin Dose 1 APPLIC; Start 10/08/16 at 21:00 Collagenase 1 applic 1 applic PRN PRN TOP WOUND CARE Last administered on 07:54; Admin Dose 1 APPLIC; Start 10/08/16 at 17:30 Norepinephrine 16 mg/Dextrose 500 ml @ 1.87 mls/hr TITRATE IV ; Start 10/10/16 at 16:00 Potassium Chloride/Dextrose/ Sod Cl 1,000 ml @ 50 mls/hr Q20H IV Last administered on 10/16/16 01:25; Admin Dose 50 MLS/HR; Start 10/11/16 at 12:30 Fentanyl/Dextrose (D5W) 100 ml @ 2.5 mls/hr TITRATE IV Last administered on 04:27; Admin Dose 10 MLS/HR; Start 10/11/16 at 18:00 Enoxaparin Sodium (Lovenox) 80 mg Q12 SC Last administered on 10/15/16 21:11; Admin Dose 80 MG; Start 10/13/16 at 21:00 ILYA HILL Oct 16, 2016 07:30
--- NOTE | 2016-10-16 08:26 | PN ---
Date/Time of Note Date/Time of Note DATE: 10/16/16 TIME: 08:25 Assessment/Plan Lines/Catheters IV Catheter Type (from Nrsg): Central Line Tang in Place (from Nrsg): Yes Assessment/Plan Chief Complaint/Hosp Course IMPRESSION 1. Pulmonary embolism. 2. Pneumonia. 3 Pleural effusion RECOMMENDATIONS: SP CT placement will continue CT sxn plan for trach Problems: Subjective 24 Hr Interval Summary Constitutional: improved Pain Control: mild Exam/Review of Systems Vital Signs Vitals Vital Signs Date Time Temp Pulse Resp B/P Pulse Ox O2 Delivery O2 Flow Rate FiO2 10/16/16 06:00 84 16 113/85 98 Mechanical Ventilator 10/16/16 05:49 30 10/16/16 05:00 98.7 10/12/16 13:45 15.0 Intake and Output 10/15/16 10/15/16 10/16/16 15:00 23:00 07:00 Intake Total 320 ml 1474 ml 1094 ml Output Total 660 ml 1160 ml 750 ml Balance -340 ml 314 ml 344 ml Exam Neck: non-tender, supple Respiratory: clear to auscultation, normal air movement Cardiovascular: nl pulses, regular rate and rhythm Results Result Diagram: 10/16/16 0400 10/16/16 0400 YOUNG HAY MD Oct 16, 2016 08:26
[2016-10-16] MEDS: LISINOPRIL 5 MG TAB GTB SCH (09:04)
[2016-10-16] MEDS: FAMOTIDINE 20 MG INJ IV SCH ×2 (09:04→20:22)
[2016-10-16] MEDS: METOCLOPRAMIDE 10 MG INJ IV SCH ×2 (09:04→20:22)
[2016-10-16] MEDS: ENOXAPARIN 80 MG/0.8 ML SYG SC SCH ×2 (09:05→20:29)
--- NOTE | 2016-10-16 10:55 | CONS ---
Date/Time of Note Date/Time of Note DATE: 10/16/16 TIME: 10:50 Assessment/Plan Assessment/Plan Chief Complaint/Hosp Course - Sepsis d/t PNA with parapneumonic effusion. - PNA with parapneumonic effusion. Could be started as CAP, other considerations include aspiration PNA. Endotracheal cx grew Stephany albicans. - recurrent right pleural effusion. s/p diagnostic thoracentesis on 09/22/16. It showed glu=74 pro <2, ZYM=[id number]. No malignancy on cytology. s/p repeat thoracentesis 10/01/16. Again, no malignancy on cytology. Right chest tube placed 10/07/16. - recurrent fever. Repeat procalcitonin downward trending, 0.22 on 10/08/16. 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 Acute hepatitis panel negative - drug rash likely d/t pip/tazo - resolving - mild leukopenia - resolved - s/p hyperkalemia and hypokalemia - s/p hyponatremia and hypernatremia - s/p lactic acidosis - s/p Vanco (09/19/16-10/04/16, 10/08/16-10/10/16), azithromycin (10/02/16-10/06/16) , pip/tazo (09/29/16-10/08/16), Tamiflu (10/02/16-10/08/16) - Negative rapid influenza screen, PPD, legionella antigen, mycoplasma pneumoniae, chlamydia pneumoniae serology, and respiratory viral panel; AFB smear negative (09/29, 09/30 & 10/01) Recommendations: - Agree with discontinuation of meropenem (10/08/16-) as pt has completed a 7-8 day course for HCAP - f/u repeat chest tube fluid cultures (negative to date), fungus culture ( pending), and AFB (prelim shows no AFB) - f/u repeat blood and urine (negative to date) cultures on 10/14 - trend fever curve - monitor closely off abx - management d/w PROSTHODONTIST - Above d/w Dr. Osullivan - critical care time spent: 38 min Problems: Consultation Date/Type/Reason Admit Date/Time Sep 15, 2016 at 16:54 Initial Consult Date 09/29/16 Type of Consultation: Infectious Disease Referring Provider: JAN ZHANG 24 HR Interval Summary Free Text/Dictation Tmax 99.4. Meropenem dc'd earlier today by Dr. Escalante. Pt remains afebrile, intubated and sedated with Fentanyl and Versed; pt's sister is a "no show" for the second time for family conference today to get consent for trach & PEG and SW assisting with contacting sister per RN Jean. Unable to perform ROS d/t sedation. Exam/Review of Systems Vital Signs Vitals Vital Signs Date Time Temp Pulse Resp B/P Pulse Ox O2 Delivery O2 Flow Rate FiO2 10/16/16 08:30 66 0 107/80 100 10/16/16 08:00 Mechanical Ventilator 10/16/16 07:30 99.2 10/16/16 05:49 30 10/12/16 13:45 15.0 Intake and Output 10/15/16 10/15/16 10/16/16 15:00 23:00 07:00 Intake Total 320 ml 1474 ml 1094 ml Output Total 660 ml 1160 ml 750 ml Balance -340 ml 314 ml 344 ml Exam Constitutional: other (orally intubated and sedated on Fentanyl and propofol), well developed Head: atraumatic, normocephalic ENMT: intubated. No obvious oral thrush noted. Mucous membranes are pink and dry. Neck: supple, No masses Respiratory: clear to auscultation. other (left subclavian central line c/d/i) . Right chest tube intact with serous drainage. Cardiovascular: nl pulses, regular rate and rhythm Gastrointestinal: bowel sounds, other (NGT with TF intact), soft Genitourinary - Male: nl penis, nl scrotum, other (Tnag cath intact with clear dark yellow urine) Extremities: 1+ LLE edema, normal pulses, No clubbing, No cyanosis Neurological: other (sedated). BUE in wrist restraints Skin: nl turgor, other (Multiple tattoos including 2 flags on the left bicep area and the name Missy on ISAIAH; stage 3 sacral decub - see photo in chart and nursing documentation for details; generalized rash has resolved) Results Result Diagram: 10/16/16 0400 10/16/16 0400 Results 24 hrs Laboratory Tests Test 10/16/16 04:00 Alanine Aminotransferase (ALT/SGPT) 34 Albumin 2.6 L Albumin/Globulin Ratio 0.72 Alkaline Phosphatase 113 Anion Gap 10 Aspartate Amino Transf (AST/SGOT) 40 Blood Morphology Comment Blood Urea Nitrogen 15 Calcium Level 8.3 L Carbon Dioxide Level 31 Chloride Level 102 Creatinine 0.61 Direct Bilirubin 0.00 Globulin 3.60 H Glucose Level 112 Hematocrit 34.7 L Hemoglobin 11.4 L Indirect Bilirubin 0.2 Mean Corpuscular Hemoglobin 28.8 L Mean Corpuscular Hemoglobin Concent 32.9 Mean Corpuscular Volume 87.4 Mean Platelet Volume 10.5 H Platelet Count 331 Potassium Level 4.2 Red Blood Count 3.97 L Red Cell Distribution Width 14.9 H Sodium Level 139 Total Bilirubin 0.2 Total Protein 6.2 White Blood Count 10.4 Medications Medications Current Medications Lorazepam (Ativan) 0.5 mg Q6H PRN IV ANXIETY Last administered on 10/12/16 20: 09; Admin Dose 0.5 MG; Start 09/15/16 at 18:00 Ondansetron HCl (Zofran Inj) 4 mg Q6H PRN IV NAUSEA AND/OR VOMITING; Start at 18:00 Morphine Sulfate (morphine) 2 mg Q4H PRN IV PAIN LEVEL 7-10 Last administered on 10/11/16 23:27; Admin Dose 2 MG; Start 09/15/16 at 18:00 Haloperidol 5 mg 5 mg Q6H PRN IM AGITATION Last administered on 09/19/16at 10: 40; Admin Dose 5 MG; Start 09/18/16 at 11:30 Propofol (Diprivan) 100 ml @ 2.478 mls/ hr Q12H IV Last administered on 02:22; Admin Dose 24.78 MLS/HR; Start 09/19/16 at 13:30 Famotidine (Pepcid Iv) 20 mg BID IV Last administered on 10/16/16 09:04; Admin Dose 20 MG; Start 09/19/16 at 21:00 Metoclopramide HCl 10 mg 10 mg Q12 IV Last administered on 10/16/16 09:04; Admin Dose 10 MG; Start 09/24/16 at 11:30 Midazolam HCl/ Dextrose (Versed/D5W) 50 ml @ 2 mls/hr TITRATE IV Last administered on 10/16/16 04:30; Admin Dose 8 MLS/HR; Start 09/25/16 at 12:00; Status Future hold Acetaminophen (Tylenol Liquid) 650 mg Q4H PRN NGT PAIN AND OR ELEVATED TEMP Last administered on 10/14/16 19:56; Admin Dose 650 MG; Start 09/28/16 at 13:30 Lisinopril (Zestril) 2.5 mg DAILY GTB Last administered on 10/16/16 09:04; Admin Dose 2.5 MG; Start 10/02/16 at 09:00 Collagenase (Santyl) 1 applic DAILY TOP Last administered on 10/15/16 09:19; Admin Dose 1 APPLIC; Start 10/08/16 at 20:00 Nystatin (Nystatin Powder) 1 applic BID TOP Last administered on 10/15/16 20: 35; Admin Dose 1 APPLIC; Start 10/08/16 at 21:00 Collagenase 1 applic 1 applic PRN PRN TOP WOUND CARE Last administered on 07:54; Admin Dose 1 APPLIC; Start 10/08/16 at 17:30 Norepinephrine 16 mg/Dextrose 500 ml @ 1.87 mls/hr TITRATE IV ; Start 10/10/16 at 16:00 Potassium Chloride/Dextrose/ Sod Cl 1,000 ml @ 50 mls/hr Q20H IV Last administered on 10/16/16 01:25; Admin Dose 50 MLS/HR; Start 10/11/16 at 12:30 Fentanyl/Dextrose (D5W) 100 ml @ 2.5 mls/hr TITRATE IV Last administered on 04:27; Admin Dose 10 MLS/HR; Start 10/11/16 at 18:00 Enoxaparin Sodium (Lovenox) 80 mg Q12 SC Last administered on 10/16/16 09:05; Admin Dose 80 MG; Start 10/13/16 at 21:00 Procedures Procedures CXR 10/15/16: Cardiomegaly . Continued diffuse mild interstitial prominence in both lungs. Interval decrease in right lower lobe infiltrates. Mild basilar residual remains. Stable right-sided chest tube. No visualized pneumothorax. Retrocardiac opacity that may reflect left lower lobe atelectasis or infiltrate combined with small pleural effusion. LAURA OJEDA NP Oct 16, 2016 10:55
[2016-10-16 11:56] LABS: BASOPHIL # 0.1 10^3/ul (0.0-0.1); EOSINOPHILS # 1.5 10^3/ul (0.0-0.5); LYMPHOCYTES # 1.7 10^3/ul (0.8-2.9); MONOCYTE # 2.5 10^3/ul (0.3-0.9); NEUTROPHIL # 4.6 10^3/ul (1.6-7.5)
[2016-10-16] MEDS: NYSTATIN 30 GM POWDER BTL TOP SCH ×2 (13:46→20:23)
[2016-10-16] MEDS: COLLAGENASE 30 GM TUBE TOP SCH (13:46)
--- NOTE | 2016-10-16 14:12 | PN ---
Date/Time of Note Date/Time of Note DATE: 10/16/16 TIME: 14:10 Assessment/Plan VTE Prophylaxis VTE Prophylaxis Intervention: SCD's Lines/Catheters IV Catheter Type (from Nrs): Central Line Central line still needed: Yes Urinary Cath still in place: Yes Reason Cath still needed: urinary retention Assessment/Plan Chief Complaint/Hosp Course ASSESSMENT AND PLAN: 1. Acute respiratory failure patient, failed extubation. Continue ventilator support. Plan for tracheostomy if family agrees. Dr. Miles foster is following the patient from pulmonology consultation. 2. Right-sided pneumonia with complicated parapneumonic effusion, status post thoracentesis,s/p R chest tube placement. Continue antibiotics per Dr. Shi foster following, Infectious Disease standpoint. 3. Acute pulmonary emboli. Continue patient on Lovenox. 4. 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 Dr. Luna is following from cardiology standpoint. 5. Encephalopathy, likely toxic metabolic, resolving. Continue to monitor. 6. Sepsis secondary to #2, resolved. Pending family conference re tracheostomy. Continue Pepcid for peptic ulcer disease prophylaxis. Further recommendations based on clinical course. Plan of care discussed with Dr. Patel. Problems: Subjective 24 Hr Interval Summary Free Text/Dictation Low grade fever, on vent, gets agitated during sedation vocation. Exam/Review of Systems Vital Signs Vitals Vital Signs Date Time Temp Pulse Resp B/P Pulse Ox O2 Delivery O2 Flow Rate FiO2 10/16/16 13:45 77 16 109/91 98 10/16/16 12:00 99.1 10/16/16 08:00 Mechanical Ventilator 10/16/16 05:49 30 10/12/16 13:45 15.0 Intake and Output 10/15/16 10/15/16 10/16/16 15:00 23:00 07:00 Intake Total 320 ml 1474 ml 1144 ml Output Total 660 ml 1160 ml 750 ml Balance -340 ml 314 ml 394 ml Exam GENERAL: Well-developed, well-nourished male, orally intubated, on vent support. LUNGS: Diminished with scattered rhonchi bilaterally. HEART: Normal S1, S2. No murmurs, gallops, clicks, rubs noted. ABDOMEN: Round, soft, nondistended, nontender. Bowel sounds present. EXTREMITIES: No edema, clubbing, cyanosis. Pulses equal bilaterally 2+. SKIN: There is no rash. NEUROLOGIC: Sedated Results Result Diagram: 10/16/16 0400 10/16/16 0400 Results 24 hrs Laboratory Tests Test 10/16/16 04:00 Alanine Aminotransferase (ALT/SGPT) 34 Albumin 2.6 L Albumin/Globulin Ratio 0.72 Alkaline Phosphatase 113 Anion Gap 10 Aspartate Amino Transf (AST/SGOT) 40 Band Neutrophils % 1.0 Basophils # 0.1 Basophils % 1.0 Blood Morphology Comment Blood Urea Nitrogen 15 Calcium Level 8.3 L Carbon Dioxide Level 31 Chloride Level 102 Creatinine 0.61 Direct Bilirubin 0.00 Eosinophils # 1.5 H Eosinophils % 14.0 H Globulin 3.60 H Glucose Level 112 Hematocrit 34.7 L Hemoglobin 11.4 L Indirect Bilirubin 0.2 Lymphocytes # 1.7 Lymphocytes % 16.0 Mean Corpuscular Hemoglobin 28.8 L Mean Corpuscular Hemoglobin Concent 32.9 Mean Corpuscular Volume 87.4 Mean Platelet Volume 10.5 H Monocytes # 2.5 H Monocytes % 24.0 H Neutrophils # 4.6 Neutrophils % 44.0 Platelet Count 331 Potassium Level 4.2 Red Blood Count 3.97 L Red Cell Distribution Width 14.9 H Sodium Level 139 Total Bilirubin 0.2 Total Protein 6.2 White Blood Count 10.4 Medications Medications Current Medications Lorazepam (Ativan) 0.5 mg Q6H PRN IV ANXIETY Last administered on 10/12/16 20: 09; Admin Dose 0.5 MG; Start 09/15/16 at 18:00 Ondansetron HCl (Zofran Inj) 4 mg Q6H PRN IV NAUSEA AND/OR VOMITING; Start at 18:00 Morphine Sulfate (morphine) 2 mg Q4H PRN IV PAIN LEVEL 7-10 Last administered on 10/11/16 23:27; Admin Dose 2 MG; Start 09/15/16 at 18:00 Haloperidol 5 mg 5 mg Q6H PRN IM AGITATION Last administered on 09/19/16at 10: 40; Admin Dose 5 MG; Start 09/18/16 at 11:30 Propofol (Diprivan) 100 ml @ 2.478 mls/ hr Q12H IV Last administered on 02:22; Admin Dose 24.78 MLS/HR; Start 09/19/16 at 13:30 Famotidine (Pepcid Iv) 20 mg BID IV Last administered on 10/16/16 09:04; Admin Dose 20 MG; Start 09/19/16 at 21:00 Metoclopramide HCl 10 mg 10 mg Q12 IV Last administered on 10/16/16 09:04; Admin Dose 10 MG; Start 09/24/16 at 11:30 Midazolam HCl/ Dextrose (Versed/D5W) 50 ml @ 2 mls/hr TITRATE IV Last administered on 10/16/16 11:23; Admin Dose 8 MLS/HR; Start 09/25/16 at 12:00; Status Future hold Acetaminophen (Tylenol Liquid) 650 mg Q4H PRN NGT PAIN AND OR ELEVATED TEMP Last administered on 10/14/16 19:56; Admin Dose 650 MG; Start 09/28/16 at 13:30 Lisinopril (Zestril) 2.5 mg DAILY GTB Last administered on 10/16/16 09:04; Admin Dose 2.5 MG; Start 10/02/16 at 09:00 Collagenase (Santyl) 1 applic DAILY TOP Last administered on 10/16/16 13:46; Admin Dose 1 APPLIC; Start 10/08/16 at 20:00 Nystatin (Nystatin Powder) 1 applic BID TOP Last administered on 10/16/16 13: 46; Admin Dose 1 APPLIC; Start 10/08/16 at 21:00 Collagenase 1 applic 1 applic PRN PRN TOP WOUND CARE Last administered on 07:54; Admin Dose 1 APPLIC; Start 10/08/16 at 17:30 Norepinephrine 16 mg/Dextrose 500 ml @ 1.87 mls/hr TITRATE IV ; Start 10/10/16 at 16:00 Potassium Chloride/Dextrose/ Sod Cl 1,000 ml @ 50 mls/hr Q20H IV Last administered on 10/16/16 01:25; Admin Dose 50 MLS/HR; Start 10/11/16 at 12:30 Fentanyl/Dextrose (D5W) 100 ml @ 2.5 mls/hr TITRATE IV Last administered on 04:27; Admin Dose 10 MLS/HR; Start 10/11/16 at 18:00 Enoxaparin Sodium (Lovenox) 80 mg Q12 SC Last administered on 10/16/16t 09:05; Admin Dose 80 MG; Start 10/13/16 at 21:00 JAN ZHANG Oct 16, 2016 14:12
[2016-10-16] MEDS: morphine 2 MG INJ IV PRN (14:35)
--- NOTE | 2016-10-16 16:23 | PN ---
Date/Time of Note Date/Time of Note DATE: 10/16/16 TIME: 16:22 Assessment/Plan VTE Prophylaxis VTE Prophylaxis Intervention: SCD's Lines/Catheters IV Catheter Type (from Nrs): Central Line Central line still needed: No Urinary Cath still in place: Yes Reason Cath still needed: urinary retention, other (indicate) Assessment/Plan Assessment/Plan Respiratory failure Pulmonary emboli Acute decompensated systolic congestive heart failure Severe biventricular cardiomyopathy with left ventricular ejection fraction 20% Pleural effusion status post thoracentesis -continue HILDA inhibitor as blood pressure and renal function permits. Continue anticoagulation if no contraindication > oral AC post trach/PEG coreg in the near future as bp low now prn lasix as bp allows Subjective 24 Hr Interval Summary Free Text/Dictation The aptient is responsive Exam/Review of Systems Vital Signs Vitals Vital Signs Date Time Temp Pulse Resp B/P Pulse Ox O2 Delivery O2 Flow Rate FiO2 10/16/16 15:30 116 19 143/90 97 10/16/16 12:00 99.1 10/16/16 08:00 Mechanical Ventilator 10/16/16 08:00 30 10/12/16 13:45 15.0 Intake and Output 10/15/16 10/15/16 10/16/16 15:00 23:00 07:00 Intake Total 320 ml 1474 ml 1212 ml Output Total 660 ml 1160 ml 750 ml Balance -340 ml 314 ml 462 ml Results Result Diagram: 10/16/16 0400 10/16/16 0400 Results 24 hrs Laboratory Tests Test 10/16/16 04:00 Alanine Aminotransferase (ALT/SGPT) 34 Albumin 2.6 L Albumin/Globulin Ratio 0.72 Alkaline Phosphatase 113 Anion Gap 10 Aspartate Amino Transf (AST/SGOT) 40 Band Neutrophils % 1.0 Basophils # 0.1 Basophils % 1.0 Blood Morphology Comment Blood Urea Nitrogen 15 Calcium Level 8.3 L Carbon Dioxide Level 31 Chloride Level 102 Creatinine 0.61 Direct Bilirubin 0.00 Eosinophils # 1.5 H Eosinophils % 14.0 H Globulin 3.60 H Glucose Level 112 Hematocrit 34.7 L Hemoglobin 11.4 L Indirect Bilirubin 0.2 Lymphocytes # 1.7 Lymphocytes % 16.0 Mean Corpuscular Hemoglobin 28.8 L Mean Corpuscular Hemoglobin Concent 32.9 Mean Corpuscular Volume 87.4 Mean Platelet Volume 10.5 H Monocytes # 2.5 H Monocytes % 24.0 H Neutrophils # 4.6 Neutrophils % 44.0 Platelet Count 331 Potassium Level 4.2 Red Blood Count 3.97 L Red Cell Distribution Width 14.9 H Sodium Level 139 Total Bilirubin 0.2 Total Protein 6.2 White Blood Count 10.4 Medications Medications Current Medications Ondansetron HCl (Zofran Inj) 4 mg Q6H PRN IV NAUSEA AND/OR VOMITING; Start at 18:00 Morphine Sulfate (morphine) 2 mg Q4H PRN IV PAIN LEVEL 7-10 Last administered on 10/16/16 14:35; Admin Dose 2 MG; Start 09/15/16 at 18:00 Haloperidol 5 mg 5 mg Q6H PRN IM AGITATION Last administered on 09/19/16at 10: 40; Admin Dose 5 MG; Start 09/18/16 at 11:30 Propofol (Diprivan) 100 ml @ 2.478 mls/ hr Q12H IV Last administered on 02:22; Admin Dose 24.78 MLS/HR; Start 09/19/16 at 13:30 Famotidine (Pepcid Iv) 20 mg BID IV Last administered on 10/16/16 09:04; Admin Dose 20 MG; Start 09/19/16 at 21:00 Metoclopramide HCl 10 mg 10 mg Q12 IV Last administered on 10/16/16 09:04; Admin Dose 10 MG; Start 09/24/16 at 11:30 Midazolam HCl/ Dextrose (Versed/D5W) 50 ml @ 2 mls/hr TITRATE IV Last administered on 10/16/16 11:23; Admin Dose 8 MLS/HR; Start 09/25/16 at 12:00; Status Future hold Acetaminophen (Tylenol Liquid) 650 mg Q4H PRN NGT PAIN AND OR ELEVATED TEMP Last administered on 10/14/16 19:56; Admin Dose 650 MG; Start 09/28/16 at 13:30 Lisinopril (Zestril) 2.5 mg DAILY GTB Last administered on 10/16/16 09:04; Admin Dose 2.5 MG; Start 10/02/16 at 09:00 Collagenase (Santyl) 1 applic DAILY TOP Last administered on 10/16/16 13:46; Admin Dose 1 APPLIC; Start 10/08/16 at 20:00 Nystatin (Nystatin Powder) 1 applic BID TOP Last administered on 10/16/16 13: 46; Admin Dose 1 APPLIC; Start 10/08/16 at 21:00 Collagenase 1 applic 1 applic PRN PRN TOP WOUND CARE Last administered on 07:54; Admin Dose 1 APPLIC; Start 10/08/16 at 17:30 Norepinephrine 16 mg/Dextrose 500 ml @ 1.87 mls/hr TITRATE IV ; Start 10/10/16 at 16:00 Potassium Chloride/Dextrose/ Sod Cl 1,000 ml @ 50 mls/hr Q20H IV Last administered on 10/16/16 01:25; Admin Dose 50 MLS/HR; Start 10/11/16 at 12:30 Fentanyl/Dextrose (D5W) 100 ml @ 2.5 mls/hr TITRATE IV Last administered on 16:18; Admin Dose 10 MLS/HR; Start 10/11/16 at 18:00 Enoxaparin Sodium (Lovenox) 80 mg Q12 SC Last administered on 10/16/16 09:05; Admin Dose 80 MG; Start 10/13/16 at 21:00 Lorazepam (Ativan) 2 mg Q2H PRN IV AGITATION; Start 10/16/16 at 16:00 RONAK BAE MD Oct 16, 2016 16:23
[2016-10-16] MEDS: LORAZEPAM 2 MG INJ IV PRN ×2 (16:42→22:38)
[2016-10-16] MEDS: HALOPERIDOL 5 MG INJ IM PRN (17:32)
[2016-10-17] VITALS (69 sets, daily range): BP systolic 93–150; BP diastolic 54–115; PULSE 64–118; RESP 12–25
[2016-10-17] MEDS: HALOPERIDOL 5 MG INJ IM PRN ×3 (00:51→15:53)
[2016-10-17] MEDS: FENTAnyl 1,000 MCG in DEXTROSE 5% 80 ML IV SCH ×3 (01:35→21:50)
[2016-10-17] MEDS: MIDAZOLAM 50 MG in DEXTROSE 5% 40 ML IV SCH ×5 (01:36→20:45)
[2016-10-17 04:52] LABS: POTASSIUM 4.3 mmol/L (3.5-5.1)
[2016-10-17 04:55] LABS: CREATININE 0.55 mg/dl (0.61-1.24)
[2016-10-17 04:56] LABS: CALCIUM 8.4 mg/dl (8.4-10.2)
[2016-10-17 05:09] LABS: BASOPHIL # 0.1 10^3/ul (0.0-0.1); BASOPHILS % 0.5 % (0.0-2.0); EOSINOPHILS # 1.9 10^3/ul (0.0-0.5); HEMATOCRIT 34.1 % (42.0-52.0); HEMOGLOBIN 11.5 g/dl (14.0-18.0); LYMPHOCYTES # 1.7 10^3/ul (0.8-2.9); LYMPHOCYTES % 15.2 % (15.0-51.0); MEAN CORPUSCULAR HEMOGLOBIN 28.8 pg (29.0-33.0); MEAN CORPUSCULAR HGB CONC 33.6 g/dl (32.0-37.0); MEAN CORPUSCULAR VOLUME 85.7 fl (82.0-101.0); MEAN PLATELET VOLUME 10.5 fl (7.4-10.4); MONOCYTES % 17.6 % (0.0-11.0); NEUTROPHIL # 5.5 10^3/ul (1.6-7.5); NEUTROPHILS % 49.7 % (39.0-77.0); PLATELET COUNT 355 10^3/UL (140-440); RED BLOOD COUNT 3.97 10^6/ul (4.70-6.10); RED CELL DISTRIBUTION WIDTH 14.8 % (11.5-14.5); UNCORRECTED WBC 11.1 10^3/ul (4.8-10.8); WHITE BLOOD COUNT 11.1 10^3/ul (4.8-10.8)
[2016-10-17 05:19] LABS: CONDITION 1; LH ANALYZER COMMENTS 1
[2016-10-17] MEDS: LISINOPRIL 5 MG TAB GTB SCH (08:04)
[2016-10-17] MEDS: METOCLOPRAMIDE 10 MG INJ IV SCH ×2 (08:04→20:28)
[2016-10-17] MEDS: FAMOTIDINE 20 MG INJ IV SCH ×2 (08:04→20:28)
--- NOTE | 2016-10-17 08:17 | PN ---
Date/Time of Note Date/Time of Note DATE: 10/17/16 TIME: 08:16 Assessment/Plan VTE Prophylaxis VTE Prophylaxis Intervention: SCD's Lines/Catheters IV Catheter Type (from Nrs): Central Line Central line still needed: No Urinary Cath still in place: Yes Reason Cath still needed: urinary retention Assessment/Plan Assessment/Plan Respiratory failure Pulmonary emboli Acute decompensated systolic congestive heart failure Severe biventricular cardiomyopathy with left ventricular ejection fraction 20% Pleural effusion status post thoracentesis -continue HILDA inhibitor as blood pressure and renal function permits. Continue anticoagulation if no contraindication > oral AC post trach coreg in the near future prn lasix as bp allows Subjective 24 Hr Interval Summary Free Text/Dictation The patietn with no change Exam/Review of Systems Vital Signs Vitals Vital Signs Date Time Temp Pulse Resp B/P Pulse Ox O2 Delivery O2 Flow Rate FiO2 10/17/16 08:00 67 16 95/56 97 10/17/16 07:30 Mechanical Ventilator 10/17/16 05:05 30 10/17/16 04:00 99.0 Intake and Output 10/16/16 10/16/16 10/17/16 15:00 23:00 07:00 Intake Total 1640 ml 1310 ml 1110 ml Output Total 980 ml 2010 ml 1890 ml Balance 660 ml -700 ml -780 ml Results Result Diagram: 10/17/16 0400 10/17/16 0400 Results 24 hrs Laboratory Tests Test 10/17/16 04:00 Anion Gap 11 Basophils # 0.1 Basophils % 0.5 Blood Morphology Comment Blood Urea Nitrogen 10 Calcium Level 8.4 Carbon Dioxide Level 30 Chloride Level 103 Creatinine 0.55 L Eosinophils # 1.9 H Eosinophils % 17.0 H Glucose Level 93 Hematocrit 34.1 L Hemoglobin 11.5 L Lymphocytes # 1.7 Lymphocytes % 15.2 Mean Corpuscular Hemoglobin 28.8 L Mean Corpuscular Hemoglobin Concent 33.6 Mean Corpuscular Volume 85.7 Mean Platelet Volume 10.5 H Monocytes # 2.0 H Monocytes % 17.6 H Neutrophils # 5.5 Neutrophils % 49.7 Nucleated Red Blood Cells # 0.0 Nucleated Red Blood Cells % 0.0 Platelet Count 355 Potassium Level 4.3 Red Blood Count 3.97 L Red Cell Distribution Width 14.8 H Sodium Level 140 White Blood Count 11.1 H Medications Medications Current Medications Ondansetron HCl (Zofran Inj) 4 mg Q6H PRN IV NAUSEA AND/OR VOMITING; Start at 18:00 Morphine Sulfate (morphine) 2 mg Q4H PRN IV PAIN LEVEL 7-10 Last administered on 10/16/16 14:35; Admin Dose 2 MG; Start 09/15/16 at 18:00 Haloperidol (Haldol) 5 mg Q6H PRN IM AGITATION Last administered on 10/17/16 00:51; Admin Dose 5 MG; Start 09/18/16 at 11:30 Famotidine (Pepcid Iv) 20 mg BID IV Last administered on 10/17/16 08:04; Admin Dose 20 MG; Start 09/19/16 at 21:00 Metoclopramide HCl 10 mg 10 mg Q12 IV Last administered on 10/17/16 08:04; Admin Dose 10 MG; Start 09/24/16 at 11:30 Midazolam HCl/ Dextrose (Versed/D5W) 50 ml @ 2 mls/hr TITRATE IV Last administered on 10/17/16 06:14; Admin Dose 10 MLS/HR; Start 09/25/16 at 12:00; Status Future hold Acetaminophen (Tylenol Liquid) 650 mg Q4H PRN NGT PAIN AND OR ELEVATED TEMP Last administered on 10/14/16 19:56; Admin Dose 650 MG; Start 09/28/16 at 13:30 Lisinopril (Zestril) 2.5 mg DAILY GTB Last administered on 10/16/16 09:04; Admin Dose 2.5 MG; Start 10/02/16 at 09:00 Collagenase (Santyl) 1 applic DAILY TOP Last administered on 10/16/16 13:46; Admin Dose 1 APPLIC; Start 10/08/16 at 20:00 Nystatin (Nystatin Powder) 1 applic BID TOP Last administered on 10/16/16 20: 23; Admin Dose 1 APPLIC; Start 10/08/16 at 21:00 Collagenase 1 applic 1 applic PRN PRN TOP WOUND CARE Last administered on 07:54; Admin Dose 1 APPLIC; Start 10/08/16 at 17:30 Potassium Chloride/Dextrose/ Sod Cl 1,000 ml @ 50 mls/hr Q20H IV Last administered on 10/16/16 18:57; Admin Dose 50 MLS/HR; Start 10/11/16 at 12:30 Fentanyl/Dextrose (D5W) 100 ml @ 2.5 mls/hr TITRATE IV Last administered on 01:35; Admin Dose 10 MLS/HR; Start 10/11/16 at 18:00 Enoxaparin Sodium (Lovenox) 80 mg Q12 SC Last administered on 10/16/16 20:29; Admin Dose 80 MG; Start 10/13/16 at 21:00 Lorazepam (Ativan) 2 mg Q2H PRN IV AGITATION Last administered on 10/16/16 22: 38; Admin Dose 2 MG; Start 10/16/16 at 16:00 Carvedilol (Coreg) 3.125 mg BID GTB Last administered on 10/16/16 20:22; Admin Dose 3.125 MG; Start 10/16/16 at 21:00 RONAK BAE MD Oct 17, 2016 08:17
--- NOTE | 2016-10-17 10:25 | CONS ---
Date/Time of Note Date/Time of Note DATE: 10/17/16 TIME: 10:18 Assessment/Plan Assessment/Plan Chief Complaint/Hosp Course assessment/impression - h/o sepsis, septic shock - PNA with parapneumonic effusion. Could be started as CAP, other considerations include aspiration PNA. - h/o recurrent right pleural effusion. s/p diagnostic thoracentesis on 09/22/16. It showed glu=74 pro <2, [id number]. No malignancy on cytology. s/p repeat thoracentesis 10/01/16, no malignancy on cytology. Right chest tube placed . 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) - h/o transaminitis, possibly shock liver, improved - h/o drug rash likely d/t pip/tazo, resolving - antimicrobial history: ashlyn (09/19/16-10/04/16, 10/08/16-10/10/16), azithromycin (10/02/16-10/06/16), pip/tazo (09/29/16-10/08/16), Tamiflu (10/02/16-10/08/16), ashlyn - negative results: rapid influenza screen, PPD, legionella antigen, mycoplasma pneumoniae, chlamydia pneumoniae serology, and respiratory viral panel; AFB smear (09/29, 09/30, 10/01, 10/08, 10/13) recommendations: - await further microbiological data - monitor Pt systemic antibiotics - management d/w MANAGER ERP the critical care time I took to care for this Pt today was from 1000 to 1030 Problems: Consultation Date/Type/Reason Admit Date/Time Sep 15, 2016 at 16:54 Initial Consult Date 09/29/16 Type of Consultation: Infectious Disease Referring Provider: JAN ZHANG 24 HR Interval Summary Subjective hx not possible: pt non-verbal Exam/Review of Systems Vital Signs Vitals Vital Signs Date Time Temp Pulse Resp B/P Pulse Ox O2 Delivery O2 Flow Rate FiO2 10/17/16 08:00 67 16 95/56 97 10/17/16 07:30 Mechanical Ventilator 10/17/16 05:05 30 10/17/16 04:00 99.0 Intake and Output 10/16/16 10/16/16 10/17/16 15:00 23:00 07:00 Intake Total 1640 ml 1310 ml 1110 ml Output Total 980 ml 2010 ml 1890 ml Balance 660 ml -700 ml -780 ml Exam Constitutional: non-verbal Psych: other (sedated) Head: atraumatic, normocephalic Eyes: PERRL, nl sclera ENMT: intubated Respiratory: diminished breath sounds Cardiovascular: nl pulses, regular rate and rhythm Gastrointestinal: non-tender, soft Extremities: No edema Neurological: other (sedated), unresponsive Results Result Diagram: 10/17/1639910/17/16 0400 Results 24 hrs Laboratory Tests Test 10/17/16 04:00 Anion Gap 11 Basophils # 0.1 Basophils % 0.5 Blood Morphology Comment Blood Urea Nitrogen 10 Calcium Level 8.4 Carbon Dioxide Level 30 Chloride Level 103 Creatinine 0.55 L Eosinophils # 1.9 H Eosinophils % 17.0 H Glucose Level 93 Hematocrit 34.1 L Hemoglobin 11.5 L Lymphocytes # 1.7 Lymphocytes % 15.2 Mean Corpuscular Hemoglobin 28.8 L Mean Corpuscular Hemoglobin Concent 33.6 Mean Corpuscular Volume 85.7 Mean Platelet Volume 10.5 H Monocytes # 2.0 H Monocytes % 17.6 H Neutrophils # 5.5 Neutrophils % 49.7 Nucleated Red Blood Cells # 0.0 Nucleated Red Blood Cells % 0.0 Platelet Count 355 Potassium Level 4.3 Red Blood Count 3.97 L Red Cell Distribution Width 14.8 H Sodium Level 140 White Blood Count 11.1 H Medications Medications Current Medications Ondansetron HCl (Zofran Inj) 4 mg Q6H PRN IV NAUSEA AND/OR VOMITING; Start at 18:00 Morphine Sulfate (morphine) 2 mg Q4H PRN IV PAIN LEVEL 7-10 Last administered on 10/16/16 14:35; Admin Dose 2 MG; Start 09/15/16 at 18:00 Haloperidol (Haldol) 5 mg Q6H PRN IM AGITATION Last administered on 10/17/16 00:51; Admin Dose 5 MG; Start 09/18/16 at 11:30 Famotidine (Pepcid Iv) 20 mg BID IV Last administered on 10/17/16 08:04; Admin Dose 20 MG; Start 09/19/16 at 21:00 Metoclopramide HCl 10 mg 10 mg Q12 IV Last administered on 10/17/16 08:04; Admin Dose 10 MG; Start 09/24/16 at 11:30 Midazolam HCl/ Dextrose (Versed/D5W) 50 ml @ 2 mls/hr TITRATE IV Last administered on 10/17/16 06:14; Admin Dose 10 MLS/HR; Start 09/25/16 at 12:00; Status Future hold Acetaminophen (Tylenol Liquid) 650 mg Q4H PRN NGT PAIN AND OR ELEVATED TEMP Last administered on 10/14/16 19:56; Admin Dose 650 MG; Start 09/28/16 at 13:30 Lisinopril (Zestril) 2.5 mg DAILY GTB Last administered on 10/16/16 09:04; Admin Dose 2.5 MG; Start 10/02/16 at 09:00 Collagenase (Santyl) 1 applic DAILY TOP Last administered on 10/16/16 13:46; Admin Dose 1 APPLIC; Start 10/08/16 at 20:00 Nystatin (Nystatin Powder) 1 applic BID TOP Last administered on 10/16/16 20: 23; Admin Dose 1 APPLIC; Start 10/08/16 at 21:00 Collagenase 1 applic 1 applic PRN PRN TOP WOUND CARE Last administered on 07:54; Admin Dose 1 APPLIC; Start 10/08/16 at 17:30 Potassium Chloride/Dextrose/ Sod Cl 1,000 ml @ 50 mls/hr Q20H IV Last administered on 10/16/16 18:57; Admin Dose 50 MLS/HR; Start 10/11/16 at 12:30 Fentanyl/Dextrose (D5W) 100 ml @ 2.5 mls/hr TITRATE IV Last administered on 01:35; Admin Dose 10 MLS/HR; Start 10/11/16 at 18:00 Enoxaparin Sodium (Lovenox) 80 mg Q12 SC Last administered on 10/16/16 20:29; Admin Dose 80 MG; Start 10/13/16 at 21:00 Lorazepam (Ativan) 2 mg Q2H PRN IV AGITATION Last administered on 10/16/16 22: 38; Admin Dose 2 MG; Start 10/16/16 at 16:00 Carvedilol (Coreg) 3.125 mg BID GTB Last administered on 10/16/16 20:22; Admin Dose 3.125 MG; Start 10/16/16 at 21:00 MIGUEL ERNST M.D. Oct 17, 2016 10:25
[2016-10-17] MEDS: ENOXAPARIN 80 MG/0.8 ML SYG SC SCH ×2 (10:32→20:38)
[2016-10-17] MEDS: COLLAGENASE 30 GM TUBE TOP SCH (10:34)
[2016-10-17] MEDS: NYSTATIN 30 GM POWDER BTL TOP SCH ×2 (10:34→20:28)
--- NOTE | 2016-10-17 11:54 | PN ---
Date/Time of Note Date/Time of Note DATE: 10/17/16 TIME: 11:45 Assessment/Plan VTE Prophylaxis VTE Prophylaxis Intervention: SCD's Lines/Catheters IV Catheter Type (from Nrs): Central Line Central line still needed: Yes Urinary Cath still in place: Yes Reason Cath still needed: urinary retention Assessment/Plan Assessment/Plan 1. Acute respiratory failure patient, failed extubation. Continue ventilator support. Plan for tracheostomy if family agrees. Dr. Aquino group is following the patient from pulmonology consultation. - per Dr. Aquino from pulmonology consultation. -Continue bronchodilators and vent weaning per pulmonology. 2. Right-sided pneumonia with complicated parapneumonic effusion, status post thoracentesis. SP chest drain placement. antibiotics - per Dr. Osullivan in Infectious Disease 3. Acute pulmonary emboli. 4. 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 Overall negative I/Os, Appreciate cardiology recommendations. CXR reviewed 5. Encephalopathy, likely toxic metabolic. Continue to monitor. Currently on sedation. 6. Intermediate QuantiFERON gold test, AFB Negative, Only droplet precaution 7. Sepsis secondary to #2, resolved. 8. Pepcid for peptic ulcer disease prophylaxis. Further recommendations based on clinical course. Critical care time spent: 40 min. Plan of care discussed with Dr. Patel. Subjective 24 Hr Interval Summary Free Text/Dictation NAD,Remains on Fentanyl 100 mcg/hr, versed 10 mg/hr, AC 16, 5, 30%, plus 5. NGT at 50 cc/hr. Tolerating TF, Possibl family meeting today regarding Trach and GT placement. No new issues dw staff. Subjective hx not possible: pt non-verbal Constitutional: requiring IVF, requiring O2 Exam/Review of Systems Vital Signs Vitals Vital Signs Date Time Temp Pulse Resp B/P Pulse Ox O2 Delivery O2 Flow Rate FiO2 10/17/16 08:00 67 16 95/56 97 10/17/16 07:30 Mechanical Ventilator 10/17/16 05:05 30 10/17/16 04:00 99.0 Intake and Output 10/16/16 10/16/16 10/17/16 15:00 23:00 07:00 Intake Total 1640 ml 1310 ml 1110 ml Output Total 980 ml 2010 ml 1890 ml Balance 660 ml -700 ml -780 ml Exam Constitutional: alert, frail, well developed Psych: nl mood/affect Head: atraumatic Eyes: PERRL, nl sclera ENMT: nl external ears & nose Neck: non-tender Respiratory: diminished breath sounds Cardiovascular: nl pulses Gastrointestinal: non-tender, soft Musculoskeletal: nl extremities to inspection Extremities: normal pulses Neurological: lethargic Skin: other Lymph: nontender Results Result Diagram: 10/17/16 0400 10/17/16 0400 Results 24 hrs Laboratory Tests Test 10/17/16 04:00 Anion Gap 11 Basophils # 0.1 Basophils % 0.5 Blood Morphology Comment Blood Urea Nitrogen 10 Calcium Level 8.4 Carbon Dioxide Level 30 Chloride Level 103 Creatinine 0.55 L Eosinophils # 1.9 H Eosinophils % 17.0 H Glucose Level 93 Hematocrit 34.1 L Hemoglobin 11.5 L Lymphocytes # 1.7 Lymphocytes % 15.2 Mean Corpuscular Hemoglobin 28.8 L Mean Corpuscular Hemoglobin Concent 33.6 Mean Corpuscular Volume 85.7 Mean Platelet Volume 10.5 H Monocytes # 2.0 H Monocytes % 17.6 H Neutrophils # 5.5 Neutrophils % 49.7 Nucleated Red Blood Cells # 0.0 Nucleated Red Blood Cells % 0.0 Platelet Count 355 Potassium Level 4.3 Red Blood Count 3.97 L Red Cell Distribution Width 14.8 H Sodium Level 140 White Blood Count 11.1 H Medications Medications Current Medications Ondansetron HCl (Zofran Inj) 4 mg Q6H PRN IV NAUSEA AND/OR VOMITING; Start at 18:00 Morphine Sulfate (morphine) 2 mg Q4H PRN IV PAIN LEVEL 7-10 Last administered on 10/16/16 14:35; Admin Dose 2 MG; Start 09/15/16 at 18:00 Haloperidol (Haldol) 5 mg Q6H PRN IM AGITATION Last administered on 10/17/16 10:28; Admin Dose 5 MG; Start 09/18/16 at 11:30 Famotidine (Pepcid Iv) 20 mg BID IV Last administered on 10/17/16 08:04; Admin Dose 20 MG; Start 09/19/16 at 21:00 Metoclopramide HCl 10 mg 10 mg Q12 IV Last administered on 10/17/16 08:04; Admin Dose 10 MG; Start 09/24/16 at 11:30 Midazolam HCl/ Dextrose (Versed/D5W) 50 ml @ 2 mls/hr TITRATE IV Last administered on 10/17/16 06:14; Admin Dose 10 MLS/HR; Start 09/25/16 at 12:00; Status Future hold Acetaminophen (Tylenol Liquid) 650 mg Q4H PRN NGT PAIN AND OR ELEVATED TEMP Last administered on 10/14/16 19:56; Admin Dose 650 MG; Start 09/28/16 at 13:30 Lisinopril (Zestril) 2.5 mg DAILY GTB Last administered on 10/16/16 09:04; Admin Dose 2.5 MG; Start 10/02/16 at 09:00 Collagenase (Santyl) 1 applic DAILY TOP Last administered on 10/17/16 10:34; Admin Dose 1 APPLIC; Start 10/08/16 at 20:00 Nystatin (Nystatin Powder) 1 applic BID TOP Last administered on 10/17/16 10: 34; Admin Dose 1 APPLIC; Start 10/08/16 at 21:00 Collagenase 1 applic 1 applic PRN PRN TOP WOUND CARE Last administered on 07:54; Admin Dose 1 APPLIC; Start 10/08/16 at 17:30 Potassium Chloride/Dextrose/ Sod Cl 1,000 ml @ 50 mls/hr Q20H IV Last administered on 10/16/16 18:57; Admin Dose 50 MLS/HR; Start 10/11/16 at 12:30 Fentanyl/Dextrose (D5W) 100 ml @ 2.5 mls/hr TITRATE IV Last administered on 01:35; Admin Dose 10 MLS/HR; Start 10/11/16 at 18:00 Enoxaparin Sodium (Lovenox) 80 mg Q12 SC Last administered on 10/17/16 10:32; Admin Dose 80 MG; Start 10/13/16 at 21:00 Lorazepam (Ativan) 2 mg Q2H PRN IV AGITATION Last administered on 10/16/16 22: 38; Admin Dose 2 MG; Start 10/16/16 at 16:00 Carvedilol (Coreg) 3.125 mg BID GTB Last administered on 10/17/16 10:34; Admin Dose 3.125 MG; Start 10/16/16 at 21:00 CECY BELTRAN Oct 17, 2016 11:54
--- NOTE | 2016-10-17 13:16 | CONS ---
Date/Time of Note Date/Time of Note DATE: 10/17/16 TIME: 13:08 Assessment/Plan Assessment/Plan Chief Complaint/Hosp Course Impression: 1. dysphagia secondary to encephalopathy 2. Right-sided pneumonia with complicated parapneumonic effusion, status post thoracentesis,s/p R chest tube placement. 3. Acute pulmonary emboli. 4. 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 5. Encephalopathy 6. Sepsis secondary to #2, resolved. Recommendation: 1. await trach and family approval for PEG 2. will d/w primary and pulmonary on timing of PEG and stopping anti- coagulation for her PE while PEG is being performed 3. continue other supportive cares from primary and other consultants. Problems: Consultation Date/Type/Reason Admit Date/Time Sep 15, 2016 at 16:54 Type of Consultation: GI Reason for Consultation PEG placement for dysphagia Hx of Present Illness 40-year-old gentleman with recent diagnosis of acute pulmonary embolus and pneumonia. The patient left this facility/emergency room without further treatment against medical advice and returned for continuing treatment. Initially required nonrebreather O2 but has increased oxygen requirement, developed acute respiratory failure, s/p intubation and failed extubation. Patient is continued on ventilator support. Patient is encephalopathic and failed swallow evaluation. Current plan is for tracheostomy and PEG if family agrees. Other hospitalized complications include right-sided pneumonia with complicated parapneumonic effusion, status post thoracentesis,s/p R chest tube placement, systolic and diastolic congestive heart failure with ejection fraction of 20%. unable to obtain secondary to patient's encephalopathy Subjective hx not possible: pt non-verbal Constitutional: requiring IVF, requiring O2 Gastrointestinal: no complaints Genitourinary: no complaints Musculoskeletal: no complaints Skin: no complaints Neurologic: no complaints Psychological: other (sedated) Past Medical History Medical History: congestive heart failure, other (PE, pneumonia) Past Surgical History Past Surgical Hx: no surgical history Family History Significant Family History: no pertinent family hx Social History Alcohol Use: none Smoking Status: Smoker,current status unk Drug Use: other (benzo, meth) Exam/Review of Systems Vital Signs Vitals Vital Signs Date Time Temp Pulse Resp B/P Pulse Ox O2 Delivery O2 Flow Rate FiO2 10/17/16 12:00 66 10/17/16 11:45 16 98 Mechanical Ventilator 10/17/16 11:30 96/61 10/17/16 08:15 98.8 10/17/16 05:05 30 Intake and Output 10/16/16 10/16/16 10/17/16 15:00 23:00 07:00 Intake Total 1640 ml 1310 ml 1110 ml Output Total 980 ml 2010 ml 1890 ml Balance 660 ml -700 ml -780 ml Exam Constitutional: non-verbal Psych: confusion Head: atraumatic, normocephalic Eyes: nl lids, nl sclera ENMT: mucosa pink and moist, nl external ears & nose, nl lips & teeth, nl nasal mucosa & septum, other (intubated.) Neck: non-tender, supple Respiratory: clear to auscultation, normal air movement Cardiovascular: nl pulses, regular rate and rhythm Gastrointestinal: nl liver, spleen, non-tender, soft Musculoskeletal: nl extremities to inspection, nl gait and stance Neurological: confused, lethargic Results Result Diagram: 10/17/16 0400 10/17/16 0400 Results 24 hrs Laboratory Tests Test 10/17/16 04:00 Anion Gap 11 Basophils # 0.1 Basophils % 0.5 Blood Morphology Comment Blood Urea Nitrogen 10 Calcium Level 8.4 Carbon Dioxide Level 30 Chloride Level 103 Creatinine 0.55 L Eosinophils # 1.9 H Eosinophils % 17.0 H Glucose Level 93 Hematocrit 34.1 L Hemoglobin 11.5 L Lymphocytes # 1.7 Lymphocytes % 15.2 Mean Corpuscular Hemoglobin 28.8 L Mean Corpuscular Hemoglobin Concent 33.6 Mean Corpuscular Volume 85.7 Mean Platelet Volume 10.5 H Monocytes # 2.0 H Monocytes % 17.6 H Neutrophils # 5.5 Neutrophils % 49.7 Nucleated Red Blood Cells # 0.0 Nucleated Red Blood Cells % 0.0 Platelet Count 355 Potassium Level 4.3 Red Blood Count 3.97 L Red Cell Distribution Width 14.8 H Sodium Level 140 White Blood Count 11.1 H Medications Medications Current Medications Ondansetron HCl (Zofran Inj) 4 mg Q6H PRN IV NAUSEA AND/OR VOMITING; Start at 18:00 Morphine Sulfate (morphine) 2 mg Q4H PRN IV PAIN LEVEL 7-10 Last administered on 10/16/16t 14:35; Admin Dose 2 MG; Start 09/15/16 at 18:00 Haloperidol (Haldol) 5 mg Q6H PRN IM AGITATION Last administered on 10/17/16 10:28; Admin Dose 5 MG; Start 09/18/16 at 11:30 Famotidine (Pepcid Iv) 20 mg BID IV Last administered on 10/17/16 08:04; Admin Dose 20 MG; Start 09/19/16 at 21:00 Metoclopramide HCl 10 mg 10 mg Q12 IV Last administered on 10/17/16 08:04; Admin Dose 10 MG; Start 09/24/16 at 11:30 Midazolam HCl/ Dextrose (Versed/D5W) 50 ml @ 2 mls/hr TITRATE IV Last administered on 10/17/16 11:43; Admin Dose 10 MLS/HR; Start 09/25/16 at 12:00; Status Future hold Acetaminophen (Tylenol Liquid) 650 mg Q4H PRN NGT PAIN AND OR ELEVATED TEMP Last administered on 10/14/16 19:56; Admin Dose 650 MG; Start 09/28/16 at 13:30 Lisinopril (Zestril) 2.5 mg DAILY GTB Last administered on 10/16/16 09:04; Admin Dose 2.5 MG; Start 10/02/16 at 09:00 Collagenase (Santyl) 1 applic DAILY TOP Last administered on 10/17/16 10:34; Admin Dose 1 APPLIC; Start 10/08/16 at 20:00 Nystatin (Nystatin Powder) 1 applic BID TOP Last administered on 10/17/16 10: 34; Admin Dose 1 APPLIC; Start 10/08/16 at 21:00 Collagenase 1 applic 1 applic PRN PRN TOP WOUND CARE Last administered on 07:54; Admin Dose 1 APPLIC; Start 10/08/16 at 17:30 Potassium Chloride/Dextrose/ Sod Cl 1,000 ml @ 50 mls/hr Q20H IV Last administered on 10/16/16 18:57; Admin Dose 50 MLS/HR; Start 10/11/16 at 12:30 Fentanyl/Dextrose (D5W) 100 ml @ 2.5 mls/hr TITRATE IV Last administered on 11:45; Admin Dose 10 MLS/HR; Start 10/11/16 at 18:00 Enoxaparin Sodium (Lovenox) 80 mg Q12 SC Last administered on 10/17/16 10:32; Admin Dose 80 MG; Start 10/13/16 at 21:00 Lorazepam (Ativan) 2 mg Q2H PRN IV AGITATION Last administered on 10/16/16 22: 38; Admin Dose 2 MG; Start 10/16/16 at 16:00 Carvedilol (Coreg) 3.125 mg BID GTB Last administered on 10/17/16 10:34; Admin Dose 3.125 MG; Start 10/16/16 at 21:00 MARISOL HDZ MD Oct 17, 2016 13:16
--- NOTE | 2016-10-17 15:39 | CONS ---
Date/Time of Note Date/Time of Note DATE: 10/17/16 TIME: 15:36 Consult Date/Type/Reason Admit Date/Time Sep 15, 2016 at 16:54 Type of Consultation: Pulm Ordering Provider: JAN ZHANG Subjective No events. On mechanical vent with versed gtt at 10 mg/hr and fentanyl 100 mcg/ hr/ Objective Vital Signs Date Time Temp Pulse Resp B/P Pulse Ox O2 Delivery O2 Flow Rate FiO2 10/17/16 14:15 66 16 99 10/17/16 14:00 100/68 10/17/16 13:30 30 10/17/16 12:00 98.9 10/17/16 11:45 Mechanical Ventilator Intake and Output 10/16/16 10/16/16 10/17/16 15:00 23:00 07:00 Intake Total 1640 ml 1310 ml 1110 ml Output Total 980 ml 2010 ml 1890 ml Balance 660 ml -700 ml -780 ml HEENT: Neck supple; no JVD; no LAD CVS: RRR, S1 and S2 CHEST: Clear ABD: Soft, NT, + BS EXT: ++edema Results/Medications Result Diagram: 10/17/16 0400 10/17/16 0400 Results 24 hrs Laboratory Tests Test 10/17/16 04:00 Anion Gap 11 Basophils # 0.1 Basophils % 0.5 Blood Morphology Comment Blood Urea Nitrogen 10 Calcium Level 8.4 Carbon Dioxide Level 30 Chloride Level 103 Creatinine 0.55 L Eosinophils # 1.9 H Eosinophils % 17.0 H Glucose Level 93 Hematocrit 34.1 L Hemoglobin 11.5 L Lymphocytes # 1.7 Lymphocytes % 15.2 Mean Corpuscular Hemoglobin 28.8 L Mean Corpuscular Hemoglobin Concent 33.6 Mean Corpuscular Volume 85.7 Mean Platelet Volume 10.5 H Monocytes # 2.0 H Monocytes % 17.6 H Neutrophils # 5.5 Neutrophils % 49.7 Nucleated Red Blood Cells # 0.0 Nucleated Red Blood Cells % 0.0 Platelet Count 355 Potassium Level 4.3 Red Blood Count 3.97 L Red Cell Distribution Width 14.8 H Sodium Level 140 White Blood Count 11.1 H Medications Current Medications Ondansetron HCl (Zofran Inj) 4 mg Q6H PRN IV NAUSEA AND/OR VOMITING; Start at 18:00 Morphine Sulfate (morphine) 2 mg Q4H PRN IV PAIN LEVEL 7-10 Last administered on 10/16/16 14:35; Admin Dose 2 MG; Start 09/15/16 at 18:00 Haloperidol (Haldol) 5 mg Q6H PRN IM AGITATION Last administered on 10/17/16 10:28; Admin Dose 5 MG; Start 09/18/16 at 11:30 Famotidine (Pepcid Iv) 20 mg BID IV Last administered on 10/17/16 08:04; Admin Dose 20 MG; Start 09/19/16 at 21:00 Metoclopramide HCl 10 mg 10 mg Q12 IV Last administered on 10/17/16 08:04; Admin Dose 10 MG; Start 09/24/16 at 11:30 Midazolam HCl/ Dextrose (Versed/D5W) 50 ml @ 2 mls/hr TITRATE IV Last administered on 10/17/16 11:43; Admin Dose 10 MLS/HR; Start 09/25/16 at 12:00; Status Future hold Acetaminophen (Tylenol Liquid) 650 mg Q4H PRN NGT PAIN AND OR ELEVATED TEMP Last administered on 10/14/16 19:56; Admin Dose 650 MG; Start 09/28/16 at 13:30 Lisinopril (Zestril) 2.5 mg DAILY GTB Last administered on 10/16/16 09:04; Admin Dose 2.5 MG; Start 10/02/16 at 09:00 Collagenase (Santyl) 1 applic DAILY TOP Last administered on 10/17/16 10:34; Admin Dose 1 APPLIC; Start 10/08/16 at 20:00 Nystatin (Nystatin Powder) 1 applic BID TOP Last administered on 10/17/16 10: 34; Admin Dose 1 APPLIC; Start 10/08/16 at 21:00 Collagenase 1 applic 1 applic PRN PRN TOP WOUND CARE Last administered on 07:54; Admin Dose 1 APPLIC; Start 10/08/16 at 17:30 Potassium Chloride/Dextrose/ Sod Cl 1,000 ml @ 50 mls/hr Q20H IV Last administered on 10/16/16 18:57; Admin Dose 50 MLS/HR; Start 10/11/16 at 12:30 Fentanyl/Dextrose (D5W) 100 ml @ 2.5 mls/hr TITRATE IV Last administered on 11:45; Admin Dose 10 MLS/HR; Start 10/11/16 at 18:00 Enoxaparin Sodium (Lovenox) 80 mg Q12 SC Last administered on 10/17/16 10:32; Admin Dose 80 MG; Start 10/13/16 at 21:00 Lorazepam (Ativan) 2 mg Q2H PRN IV AGITATION Last administered on 10/16/16 22: 38; Admin Dose 2 MG; Start 10/16/16 at 16:00 Carvedilol (Coreg) 3.125 mg BID GTB Last administered on 10/17/16 10:34; Admin Dose 3.125 MG; Start 10/16/16 at 21:00 Assessment/Plan Additional Assessment/Plan IMP: 1. Respiratory Failure/Failure to liberate from MV 2. Right-sided pneumonia with parapneumonic effusion s/p VATS decort 3. s/p Septic Shock 5. Substance abuse 6. FEN- tolerating TF's RECS: 1. Vent support; await trach 2. Consider decreasing versed and adding seroquel 3. TF's/free H20 4. Am labs/CXR 35 min cc time NAV DAVIDSON MD Oct 17, 2016 15:39
--- NOTE | 2016-10-17 16:09 | PN ---
Date/Time of Note Date/Time of Note DATE: 10/17/16 TIME: 16:09 Assessment/Plan Lines/Catheters IV Catheter Type (from Nrsg): Central Line Tang in Place (from Nrsg): Yes Assessment/Plan Chief Complaint/Hosp Course IMPRESSION 1. Pulmonary embolism. 2. Pneumonia. 3 Pleural effusion RECOMMENDATIONS: SP CT placement will continue CT sxn plan for trach On Wednesday Problems: Subjective 24 Hr Interval Summary Constitutional: improved Pain Control: mild Exam/Review of Systems Vital Signs Vitals Vital Signs Date Time Temp Pulse Resp B/P Pulse Ox O2 Delivery O2 Flow Rate FiO2 10/17/16 14:15 66 16 99 10/17/16 14:00 100/68 10/17/16 13:30 30 10/17/16 12:00 98.9 10/17/16 11:45 Mechanical Ventilator Intake and Output 10/16/16 10/16/16 10/17/16 15:00 23:00 07:00 Intake Total 1640 ml 1310 ml 1110 ml Output Total 980 ml 2010 ml 1890 ml Balance 660 ml -700 ml -780 ml Exam Neck: non-tender, supple Respiratory: clear to auscultation, normal air movement Cardiovascular: nl pulses, regular rate and rhythm Results Result Diagram: 10/17/16 0400 10/17/16 0400 YOUNG HAY MD Oct 17, 2016 16:09
[2016-10-17] MEDS: D5-NS + KCL 20 MEQ 1,000 ML IV SCH (17:54)
[2016-10-17] MEDS: morphine 2 MG INJ IV PRN (19:41)
[2016-10-17] MEDS: LORAZEPAM 2 MG INJ IV PRN (20:28)
[2016-10-18] VITALS (83 sets, daily range): BP systolic 83–142; BP diastolic 53–106; PULSE 16–116; RESP 15–26
[2016-10-18] MEDS: MIDAZOLAM 50 MG in DEXTROSE 5% 40 ML IV SCH ×4 (01:21→18:00)
[2016-10-18] MEDS: HALOPERIDOL 5 MG INJ IM PRN ×3 (02:13→20:45)
[2016-10-18 05:20] LABS: AADO2 Arterial 59.9 mmHg (7.0-24.0); Allen Test ACCEPTAB; Arterial Base Excess 4.9 mmol/L (-3.0-3); Arterial COHb 0 % (0.0-3.0); Arterial Fraction of Oxyhgb 97.3 % (93.0-99.0); Arterial HCO3 30.3 mmol/L (22.0-26.0); Arterial MetHb 0.2 % (0.0-1.5); Arterial Total Hemglobin 12.6 g/dl (12.0-18.0); MODE VENT - AC
[2016-10-18 05:28] LABS: ALBUMIN 2.8 g/dl (3.3-4.9)
[2016-10-18 05:29] LABS: POTASSIUM 3.9 mmol/L (3.5-5.1)
[2016-10-18 05:31] LABS: ALBUMIN/GLOBULIN RATIO 0.77; BILIRUBIN,INDIRECT 0.2 mg/dl (0-1.1); BILIRUBIN,TOTAL 0.2 mg/dl (0.2-1.3); CREATININE 0.61 mg/dl (0.61-1.24); TOTAL PROTEIN 6.4 g/dl (6.1-8.1)
[2016-10-18 05:32] LABS: CALCIUM 8.8 mg/dl (8.4-10.2)
[2016-10-18 05:34] LABS: BASOPHILS % 0.5 % (0.0-2.0); EOSINOPHILS # 2.1 10^3/ul (0.0-0.5); EOSINOPHILS % 23.9 % (0.0-7.0); HEMOGLOBIN 12.2 g/dl (14.0-18.0); LYMPHOCYTES # 1.4 10^3/ul (0.8-2.9); LYMPHOCYTES % 16.5 % (15.0-51.0); MEAN CORPUSCULAR HEMOGLOBIN 28.9 pg (29.0-33.0); MEAN CORPUSCULAR HGB CONC 33.8 g/dl (32.0-37.0); MEAN CORPUSCULAR VOLUME 85.6 fl (82.0-101.0); MEAN PLATELET VOLUME 10.2 fl (7.4-10.4); MONOCYTE # 1.6 10^3/ul (0.3-0.9); MONOCYTES % 17.9 % (0.0-11.0); NEUTROPHIL # 3.6 10^3/ul (1.6-7.5); NEUTROPHILS % 41.2 % (39.0-77.0); PLATELET COUNT 369 10^3/UL (140-440); RED CELL DISTRIBUTION WIDTH 14.8 % (11.5-14.5); UNCORRECTED WBC 8.8 10^3/ul (4.8-10.8); WHITE BLOOD COUNT 8.8 10^3/ul (4.8-10.8)
[2016-10-18 06:00] LABS: CONDITION 1; LH ANALYZER COMMENTS 1
[2016-10-18] MEDS: FENTAnyl 1,000 MCG in DEXTROSE 5% 80 ML IV SCH ×3 (06:41→19:25)
[2016-10-18] MEDS: METOCLOPRAMIDE 10 MG INJ IV SCH ×2 (07:58→20:03)
[2016-10-18] MEDS: FAMOTIDINE 20 MG INJ IV SCH ×2 (07:58→20:03)
[2016-10-18] MEDS: ENOXAPARIN 80 MG/0.8 ML SYG SC SCH (08:00)
[2016-10-18] MEDS: LISINOPRIL 5 MG TAB GTB SCH (08:07)
[2016-10-18] MEDS ORDERED: SOD CHLORIDE 0.9% 500 ML IV ONE (09:00)
--- NOTE | 2016-10-18 09:16 | CONS ---
Date/Time of Note Date/Time of Note DATE: 10/18/16 TIME: 09:14 Assessment/Plan Assessment/Plan Chief Complaint/Hosp Course Impression: 1. dysphagia secondary to encephalopathy, on tube feeds, family agreed to PEG placement 2. Right-sided pneumonia with complicated parapneumonic effusion, status post thoracentesis,s/p R chest tube placement. 3. Acute pulmonary emboli. 4. 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 5. Encephalopathy 6. Sepsis secondary to #2, resolved. Recommendation: 1. await trach placement and will schedule PEG with Trach or a day afterwards. 2. continue tube feeds 3. continue other supportive cares from primary and other consultants. Problems: Consultation Date/Type/Reason Admit Date/Time Sep 15, 2016 at 16:54 Initial Consult Date 09/29/16 Type of Consultation: GI Referring Provider: JAN ZHANG 24 HR Interval Summary Free Text/Dictation tolerating tube feeds, no n/v Exam/Review of Systems Vital Signs Vitals Vital Signs Date Time Temp Pulse Resp B/P Pulse Ox O2 Delivery O2 Flow Rate FiO2 10/18/16 08:45 67 92/61 99 10/18/16 05:10 17 30 10/17/16 21:00 Mechanical Ventilator 10/17/16 19:30 97.9 Intake and Output 10/17/16 10/17/16 10/18/16 15:00 23:00 07:00 Intake Total 1010 ml 1060 ml 890 ml Output Total 1780 ml 1245 ml 1100 ml Balance -770 ml -185 ml -210 ml Exam Constitutional: non-verbal Psych: confusion Head: atraumatic, normocephalic Eyes: EOMI, nl conjunctiva, nl lids ENMT: nl external ears & nose, nl lips & teeth, nl nasal mucosa & septum Neck: non-tender, supple Respiratory: clear to auscultation, normal air movement Cardiovascular: nl pulses, regular rate and rhythm Gastrointestinal: bowel sounds, non-tender, soft Results Result Diagram: 10/18/16 0500 10/18/16 0500 Results 24 hrs Laboratory Tests Test 10/18/16 05:00 Alanine Aminotransferase (ALT/SGPT) 38 Albumin 2.8 L Albumin/Globulin Ratio 0.77 Alkaline Phosphatase 147 H Arterial Blood HCO3 30.3 H Arterial Blood Base Excess 4.9 H Arterial Blood Oxygen Saturation 97.5 Sky Test ACCEPTAB Arterial Blood Gas Puncture Site Right Brachial Anion Gap 13 Arterial Blood Carboxyhemoglobin 0 Arterial Blood Date Drawn 10/18/2016 5:00:07 AM Arterial Blood Methemoglobin 0.2 Arterial Blood pCO2 (Temp correct) 47.6 H Arterial Blood pH (Temp corrected) 7.421 Arterial Blood pO2 (Temp corrected) 98.1 Aspartate Amino Transf (AST/SGOT) 38 Basophils # Pending Basophils % Pending Blood Gas A-a O2 Differential 59.9 H Blood Gas Actual Respiration Rate 16 Blood Gas Low PEEP Setting 5.0 Blood Gas Modality VENT - AC Blood Gas Notified Time 10/18/2016 5:20:26 AM Blood Gas Notified Whom UP Blood Gas Respiration Rate 16.0 Blood Gas Specimen Source Blood arterial Blood Gas Temperature 37.0 Blood Gas Tidal Volume 500.0 Blood Morphology Comment Blood Urea Nitrogen 8 Calcium Level 8.8 Carbon Dioxide Level 31 Chloride Level 102 Creatinine 0.61 Direct Bilirubin 0.00 Eosinophils # Pending Eosinophils % Pending FiO2 30.0 Globulin 3.60 H Glucose Level 93 Hematocrit 36.0 L Hemoglobin 12.2 L Indirect Bilirubin 0.2 Lymphocytes # Pending Lymphocytes % Pending Magnesium Level 1.6 L Mean Corpuscular Hemoglobin 28.9 L Mean Corpuscular Hemoglobin Concent 33.8 Mean Corpuscular Volume 85.6 Mean Platelet Volume 10.2 Monocytes # Pending Monocytes % Pending Neutrophils # Pending Neutrophils % Pending Nucleated Red Blood Cells # Pending Nucleated Red Blood Cells % Pending Oxyhemoglobin Percent 97.3 Platelet Count 369 Potassium Level 3.9 Red Blood Count 4.20 L Red Cell Distribution Width 14.8 H Sodium Level 142 Total Bilirubin 0.2 Total Hemoglobin 12.6 Total Protein 6.4 White Blood Count 8.8 # Medications Medications Current Medications Ondansetron HCl (Zofran Inj) 4 mg Q6H PRN IV NAUSEA AND/OR VOMITING; Start at 18:00 Morphine Sulfate (morphine) 2 mg Q4H PRN IV PAIN LEVEL 7-10 Last administered on 10/17/16 19:41; Admin Dose 2 MG; Start 09/15/16 at 18:00 Haloperidol (Haldol) 5 mg Q6H PRN IM AGITATION Last administered on 10/18/16 02:13; Admin Dose 5 MG; Start 09/18/16 at 11:30 Famotidine (Pepcid Iv) 20 mg BID IV Last administered on 10/18/16 07:58; Admin Dose 20 MG; Start 09/19/16 at 21:00 Metoclopramide HCl 10 mg 10 mg Q12 IV Last administered on 10/18/16 07:58; Admin Dose 10 MG; Start 09/24/16 at 11:30 Midazolam HCl/ Dextrose (Versed/D5W) 50 ml @ 2 mls/hr TITRATE IV Last administered on 10/18/16 06:43; Admin Dose 10 MLS/HR; Start 09/25/16 at 12:00; Status Future hold Acetaminophen (Tylenol Liquid) 650 mg Q4H PRN NGT PAIN AND OR ELEVATED TEMP Last administered on 10/14/16 19:56; Admin Dose 650 MG; Start 09/28/16 at 13:30 Lisinopril (Zestril) 2.5 mg DAILY GTB Last administered on 10/16/16 09:04; Admin Dose 2.5 MG; Start 10/02/16 at 09:00 Collagenase (Santyl) 1 applic DAILY TOP Last administered on 10/17/16 10:34; Admin Dose 1 APPLIC; Start 10/08/16 at 20:00 Nystatin (Nystatin Powder) 1 applic BID TOP Last administered on 10/17/16 20: 28; Admin Dose 1 APPLIC; Start 10/08/16 at 21:00 Collagenase 1 applic 1 applic PRN PRN TOP WOUND CARE Last administered on 07:54; Admin Dose 1 APPLIC; Start 10/08/16 at 17:30 Potassium Chloride/Dextrose/ Sod Cl 1,000 ml @ 50 mls/hr Q20H IV Last administered on 10/17/16 17:54; Admin Dose 50 MLS/HR; Start 10/11/16 at 12:30 Fentanyl/Dextrose (D5W) 100 ml @ 2.5 mls/hr TITRATE IV Last administered on 06:41; Admin Dose 10 MLS/HR; Start 10/11/16 at 18:00 Enoxaparin Sodium (Lovenox) 80 mg Q12 SC Last administered on 10/18/16 08:00; Admin Dose 80 MG; Start 10/13/16 at 21:00 Lorazepam (Ativan) 2 mg Q2H PRN IV AGITATION Last administered on 10/17/16 20: 28; Admin Dose 2 MG; Start 10/16/16 at 16:00 Carvedilol 3.125 mg 3.125 mg BID GTB Last administered on 10/17/16 20:28; Admin Dose 3.125 MG; Start 10/16/16 at 21:00 Sodium Chloride (NS) 500 ml @ 500 mls/hr Q1H ONCE IV ; Start 10/18/16 at 09:00 ; Stop 10/18/16 at 09:59 MARISOL HDZ MD Oct 18, 2016 09:16
--- NOTE | 2016-10-18 09:41 | CONS ---
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 Continue anticoagulation blood pressure now borderline - hold beta beatriz and acer-inhipito titrate versed down as tolerated IV bolus planned for trach Subjective hx not possible: pt non-verbal, pt critical status Exam/Review of Systems Vital Signs Vitals Vital Signs Date Time Temp Pulse Resp B/P Pulse Ox O2 Delivery O2 Flow Rate FiO2 10/18/16 08:45 67 92/61 99 10/18/16 05:10 17 30 10/17/16 21:00 Mechanical Ventilator 10/17/16 19:30 97.9 Intake and Output 10/17/16 10/17/16 10/18/16 15:00 23:00 07:00 Intake Total 1010 ml 1060 ml 920 ml Output Total 1780 ml 1245 ml 1100 ml Balance -770 ml -185 ml -180 ml Exam Constitutional: non-verbal Results Result Diagram: 10/18/16 0500 10/18/16 0500 Results 24 hrs Laboratory Tests Test 10/18/16 05:00 Alanine Aminotransferase (ALT/SGPT) 38 Albumin 2.8 L Albumin/Globulin Ratio 0.77 Alkaline Phosphatase 147 H Arterial Blood HCO3 30.3 H Arterial Blood Base Excess 4.9 H Arterial Blood Oxygen Saturation 97.5 Sky Test ACCEPTAB Arterial Blood Gas Puncture Site Right Brachial Anion Gap 13 Arterial Blood Carboxyhemoglobin 0 Arterial Blood Date Drawn 10/18/2016 5:00:07 AM Arterial Blood Methemoglobin 0.2 Arterial Blood pCO2 (Temp correct) 47.6 H Arterial Blood pH (Temp corrected) 7.421 Arterial Blood pO2 (Temp corrected) 98.1 Aspartate Amino Transf (AST/SGOT) 38 Basophils # Pending Basophils % Pending Blood Gas A-a O2 Differential 59.9 H Blood Gas Actual Respiration Rate 16 Blood Gas Low PEEP Setting 5.0 Blood Gas Modality VENT - AC Blood Gas Notified Time 10/18/2016 5:20:26 AM Blood Gas Notified Whom UP Blood Gas Respiration Rate 16.0 Blood Gas Specimen Source Blood arterial Blood Gas Temperature 37.0 Blood Gas Tidal Volume 500.0 Blood Morphology Comment Blood Urea Nitrogen 8 Calcium Level 8.8 Carbon Dioxide Level 31 Chloride Level 102 Creatinine 0.61 Direct Bilirubin 0.00 Eosinophils # Pending Eosinophils % Pending FiO2 30.0 Globulin 3.60 H Glucose Level 93 Hematocrit 36.0 L Hemoglobin 12.2 L Indirect Bilirubin 0.2 Lymphocytes # Pending Lymphocytes % Pending Magnesium Level 1.6 L Mean Corpuscular Hemoglobin 28.9 L Mean Corpuscular Hemoglobin Concent 33.8 Mean Corpuscular Volume 85.6 Mean Platelet Volume 10.2 Monocytes # Pending Monocytes % Pending Neutrophils # Pending Neutrophils % Pending Nucleated Red Blood Cells # Pending Nucleated Red Blood Cells % Pending Oxyhemoglobin Percent 97.3 Platelet Count 369 Potassium Level 3.9 Red Blood Count 4.20 L Red Cell Distribution Width 14.8 H Sodium Level 142 Total Bilirubin 0.2 Total Hemoglobin 12.6 Total Protein 6.4 White Blood Count 8.8 # Medications Medications Current Medications Ondansetron HCl (Zofran Inj) 4 mg Q6H PRN IV NAUSEA AND/OR VOMITING; Start at 18:00 Morphine Sulfate (morphine) 2 mg Q4H PRN IV PAIN LEVEL 7-10 Last administered on 10/17/16 19:41; Admin Dose 2 MG; Start 09/15/16 at 18:00 Haloperidol (Haldol) 5 mg Q6H PRN IM AGITATION Last administered on 10/18/16 02:13; Admin Dose 5 MG; Start 09/18/16 at 11:30 Famotidine (Pepcid Iv) 20 mg BID IV Last administered on 10/18/16 07:58; Admin Dose 20 MG; Start 09/19/16 at 21:00 Metoclopramide HCl 10 mg 10 mg Q12 IV Last administered on 10/18/16 07:58; Admin Dose 10 MG; Start 09/24/16 at 11:30 Midazolam HCl/ Dextrose (Versed/D5W) 50 ml @ 2 mls/hr TITRATE IV Last administered on 10/18/16 06:43; Admin Dose 10 MLS/HR; Start 09/25/16 at 12:00; Status Future hold Acetaminophen (Tylenol Liquid) 650 mg Q4H PRN NGT PAIN AND OR ELEVATED TEMP Last administered on 10/14/16 19:56; Admin Dose 650 MG; Start 09/28/16 at 13:30 Lisinopril (Zestril) 2.5 mg DAILY GTB Last administered on 10/16/16 09:04; Admin Dose 2.5 MG; Start 10/02/16 at 09:00 Collagenase (Santyl) 1 applic DAILY TOP Last administered on 10/17/16 10:34; Admin Dose 1 APPLIC; Start 10/08/16 at 20:00 Nystatin (Nystatin Powder) 1 applic BID TOP Last administered on 10/17/16 20: 28; Admin Dose 1 APPLIC; Start 10/08/16 at 21:00 Collagenase 1 applic 1 applic PRN PRN TOP WOUND CARE Last administered on 07:54; Admin Dose 1 APPLIC; Start 10/08/16 at 17:30 Potassium Chloride/Dextrose/ Sod Cl 1,000 ml @ 50 mls/hr Q20H IV Last administered on 10/17/16 17:54; Admin Dose 50 MLS/HR; Start 10/11/16 at 12:30 Fentanyl/Dextrose (D5W) 100 ml @ 2.5 mls/hr TITRATE IV Last administered on 06:41; Admin Dose 10 MLS/HR; Start 10/11/16 at 18:00 Enoxaparin Sodium (Lovenox) 80 mg Q12 SC Last administered on 10/18/16 08:00; Admin Dose 80 MG; Start 10/13/16 at 21:00 Lorazepam (Ativan) 2 mg Q2H PRN IV AGITATION Last administered on 10/17/16 20: 28; Admin Dose 2 MG; Start 10/16/16 at 16:00 Carvedilol 3.125 mg 3.125 mg BID GTB Last administered on 10/17/16 20:28; Admin Dose 3.125 MG; Start 10/16/16 at 21:00 Sodium Chloride (NS) 500 ml @ 500 mls/hr Q1H ONCE IV Last administered on 10/18 09:36; Admin Dose 500 MLS/HR; Start 10/18/16 at 09:00; Stop 10/18/16 at 09 :59 SORAYA GARCIA MD Oct 18, 2016 09:41
[2016-10-18 09:54] LABS: ANISOCYTOSIS 1+; HYPOCHROMASIA 1+
[2016-10-18] MEDS ORDERED: MAGNESIUM SULFATE 2 GM/50 ML 50 ML IVPB ONE (11:00)
[2016-10-18] MEDS: NYSTATIN 30 GM POWDER BTL TOP SCH ×2 (11:42→20:03)
--- NOTE | 2016-10-18 12:20 | PN ---
Date/Time of Note Date/Time of Note DATE: 10/18/16 TIME: 12:14 Assessment/Plan VTE Prophylaxis VTE Prophylaxis Intervention: other Lines/Catheters IV C[facility]ter Type (from [facility]): Urinary Cath still in place: No Assessment/Plan Assessment/Plan 1. Acute respiratory failure patient, failed extubation. Continue ventilator support. - Plan for tracheostomy tomorrow per Dr Harrsi/staff - per Dr. Aquino group is following the patient from pulmonology consultation. 2. Right-sided pneumonia with complicated parapneumonic effusion, status post thoracentesis. SP chest drain placement. antibiotics - per Dr. Osullivan in Infectious Disease 3. Acute pulmonary emboli. 4. 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 Overall negative I/Os, Appreciate cardiology recommendations. CXR reviewed 5. Encephalopathy, likely toxic metabolic. Continue to monitor. Currently on sedation. 6. Intermediate QuantiFERON gold test, AFB Negative, Only droplet precaution 7. Sepsis secondary to #2, resolved. 8. Dysphagia- plan for GT placement tomorrow per Dr Hernandez covering FOR Dr Dunn 9. Hypomagnesium- replet mag, BMP am Continue Pepcid for peptic ulcer disease prophylaxis. Further recommendations based on clinical course. Critical care time spent: 40 min. Plan of care discussed with Dr. Patel. Subjective 24 Hr Interval Summary Free Text/Dictation NAD, was hypotensive - improving now on Fentanyl 80mcg/hr, versed 8 mg/hr NGT at 50 cc/hr. Tolerating TF, Possibl family meeting today regarding Trach and GT placement. No new issues dw staff. Constitutional: requiring IVF, requiring O2 Exam/Review of Systems Vital Signs Vitals Vital Signs Date Time Temp Pulse Resp B/P Pulse Ox O2 Delivery O2 Flow Rate FiO2 10/18/16 11:15 68 92/58 99 10/18/16 08:00 30 10/18/16 05:10 17 10/17/16 21:00 Mechanical Ventilator 10/17/16 19:30 97.9 Intake and Output 10/17/16 10/17/16 10/18/16 15:00 23:00 07:00 Intake Total 1010 ml 1060 ml 1010 ml Output Total 1780 ml 1245 ml 1100 ml Balance -770 ml -185 ml -90 ml Exam Constitutional: frail, well developed Eyes: PERRL, nl sclera ENMT: nl external ears & nose Neck: non-tender Respiratory: diminished breath sounds Cardiovascular: nl pulses Gastrointestinal: non-tender, other (FC- yellow,, clear urine), soft Musculoskeletal: nl extremities to inspection Extremities: normal pulses Neurological: lethargic Skin: nl turgor Lymph: nontender Results Result Diagram: 10/18/16 0500 10/18/16 0500 Results 24 hrs Laboratory Tests Test 10/18/16 05:00 Alanine Aminotransferase (ALT/SGPT) 38 Albumin 2.8 L Albumin/Globulin Ratio 0.77 Alkaline Phosphatase 147 H Arterial Blood HCO3 30.3 H Arterial Blood Base Excess 4.9 H Arterial Blood Oxygen Saturation 97.5 Sky Test ACCEPTAB Arterial Blood Gas Puncture Site Right Brachial Anion Gap 13 Anisocytosis 1+ Arterial Blood Carboxyhemoglobin 0 Arterial Blood Date Drawn 10/18/2016 5:00:07 AM Arterial Blood Methemoglobin 0.2 Arterial Blood pCO2 (Temp correct) 47.6 H Arterial Blood pH (Temp corrected) 7.421 Arterial Blood pO2 (Temp corrected) 98.1 Aspartate Amino Transf (AST/SGOT) 38 Basophils # 0.0 Basophils % 0.5 Blood Gas A-a O2 Differential 59.9 H Blood Gas Actual Respiration Rate 16 Blood Gas Low PEEP Setting 5.0 Blood Gas Modality VENT - AC Blood Gas Notified Time 10/18/2016 5:20:26 AM Blood Gas Notified Whom UP Blood Gas Respiration Rate 16.0 Blood Gas Specimen Source Blood arterial Blood Gas Temperature 37.0 Blood Gas Tidal Volume 500.0 Blood Morphology Comment Blood Urea Nitrogen 8 Calcium Level 8.8 Carbon Dioxide Level 31 Chloride Level 102 Creatinine 0.61 Differential Comment AUTO w/SCAN Direct Bilirubin 0.00 Eosinophils # 2.1 H Eosinophils % 23.9 H FiO2 30.0 Globulin 3.60 H Glucose Level 93 Hematocrit 36.0 L Hemoglobin 12.2 L Hypochromasia 1+ Indirect Bilirubin 0.2 Large Platelets OCCASIONAL Lymphocytes # 1.4 Lymphocytes % 16.5 Magnesium Level 1.6 L Mean Corpuscular Hemoglobin 28.9 L Mean Corpuscular Hemoglobin Concent 33.8 Mean Corpuscular Volume 85.6 Mean Platelet Volume 10.2 Monocytes # 1.6 H Monocytes % 17.9 H Neutrophils # 3.6 Neutrophils % 41.2 Nucleated Red Blood Cells # 0.0 Nucleated Red Blood Cells % 0.0 Oxyhemoglobin Percent 97.3 Platelet Count 369 Potassium Level 3.9 Red Blood Count 4.20 L Red Cell Distribution Width 14.8 H Sodium Level 142 Total Bilirubin 0.2 Total Hemoglobin 12.6 Total Protein 6.4 White Blood Count 8.8 # Medications Medications Current Medications Ondansetron HCl (Zofran Inj) 4 mg Q6H PRN IV NAUSEA AND/OR VOMITING; Start at 18:00 Morphine Sulfate (morphine) 2 mg Q4H PRN IV PAIN LEVEL 7-10 Last administered on 10/17/16 19:41; Admin Dose 2 MG; Start 09/15/16 at 18:00 Haloperidol (Haldol) 5 mg Q6H PRN IM AGITATION Last administered on 10/18/16 02:13; Admin Dose 5 MG; Start 09/18/16 at 11:30 Famotidine (Pepcid Iv) 20 mg BID IV Last administered on 10/18/16 07:58; Admin Dose 20 MG; Start 09/19/16 at 21:00 Metoclopramide HCl 10 mg 10 mg Q12 IV Last administered on 10/18/16 07:58; Admin Dose 10 MG; Start 09/24/16 at 11:30 Midazolam HCl/ Dextrose (Versed/D5W) 50 ml @ 2 mls/hr TITRATE IV Last administered on 10/18/16 06:43; Admin Dose 10 MLS/HR; Start 09/25/16 at 12:00; Status Future hold Acetaminophen (Tylenol Liquid) 650 mg Q4H PRN NGT PAIN AND OR ELEVATED TEMP Last administered on 10/14/16 19:56; Admin Dose 650 MG; Start 09/28/16 at 13:30 Lisinopril (Zestril) 2.5 mg DAILY GTB Last administered on 10/16/16 09:04; Admin Dose 2.5 MG; Start 10/02/16 at 09:00 Collagenase (Santyl) 1 applic DAILY TOP Last administered on 10/17/16 10:34; Admin Dose 1 APPLIC; Start 10/08/16 at 20:00 Nystatin (Nystatin Powder) 1 applic BID TOP Last administered on 10/18/16 11: 42; Admin Dose 1 APPLIC; Start 10/08/16 at 21:00 Collagenase 1 applic 1 applic PRN PRN TOP WOUND CARE Last administered on 07:54; Admin Dose 1 APPLIC; Start 10/08/16 at 17:30 Potassium Chloride/Dextrose/ Sod Cl 1,000 ml @ 50 mls/hr Q20H IV Last administered on 10/17/16 17:54; Admin Dose 50 MLS/HR; Start 10/11/16 at 12:30 Fentanyl/Dextrose (D5W) 100 ml @ 2.5 mls/hr TITRATE IV Last administered on 06:41; Admin Dose 10 MLS/HR; Start 10/11/16 at 18:00 Enoxaparin Sodium (Lovenox) 80 mg Q12 SC Last administered on 10/18/16 08:00; Admin Dose 80 MG; Start 10/13/16 at 21:00 Lorazepam (Ativan) 2 mg Q2H PRN IV AGITATION Last administered on 10/17/16 20: 28; Admin Dose 2 MG; Start 10/16/16 at 16:00 Carvedilol 3.125 mg 3.125 mg BID GTB Last administered on 10/17/16 20:28; Admin Dose 3.125 MG; Start 10/16/16 at 21:00 Magnesium Sulfate (Magnesium Sulfate 2 Gm/50 ml) 50 ml @ 25 mls/hr ONCE ONCE IVPB Last administered on 10/18/16 11:41; Admin Dose 25 MLS/HR; Start at 11:00; Stop 10/18/16 at 12:59 CECY BELTRAN Oct 18, 2016 12:20 IVPB Last administered on 10/18/16 11:41; Admin Dose 25 MLS/HR; Start at 11:00; Stop 10/18/16 at 12:59 CECY BELTRAN Oct 18, 2016 12:20
--- NOTE | 2016-10-18 12:45 | RADRPT ---
PROCEDURE: XR Chest. CLINICAL INDICATION: Shortness of breath. TECHNIQUE: Single frontal view. COMPARISON: 10/15/2016. FINDINGS: The endotracheal tube and nasogastric tube are in satisfactory position. Pulmonary edema is slightl y worse than seen previously. Left basilar atelectasis is unchanged. There is a right chest tube i n position. The heart size is normal. There is no pleural effusion. There is no pneumothorax. IMPRESSION: 1. Slightly worse pulmonary edema. R-2 left basilar atelectasis. 3. No other change from 10/15/2016. RPTAT: QQ .Zack Gonsalez MD, MD Date Time Electronically viewed and signed by .Zack Gonsalez MD, on 10/18/2016 12:44 .R/
[2016-10-18] MEDS: COLLAGENASE 30 GM TUBE TOP SCH (13:10)
[2016-10-18] MEDS: D5-NS + KCL 20 MEQ 1,000 ML IV SCH (13:56)
--- NOTE | 2016-10-18 15:43 | CONS ---
Date/Time of Note Date/Time of Note DATE: 10/18/16 TIME: 15:40 Consult Date/Type/Reason Admit Date/Time Sep 15, 2016 at 16:54 Type of Consultation: Pulm Ordering Provider: JAN ZHANG Subjective No events. On vent. Objective Vital Signs Date Time Temp Pulse Resp B/P Pulse Ox O2 Delivery O2 Flow Rate FiO2 10/18/16 13:15 93 109/81 100 10/18/16 12:00 98.9 10/18/16 11:40 16 30 10/17/16 21:00 Mechanical Ventilator Intake and Output 10/17/16 10/17/16 10/18/16 15:00 23:00 07:00 Intake Total 1010 ml 1060 ml 1010 ml Output Total 1780 ml 1245 ml 1100 ml Balance -770 ml -185 ml -90 ml HEENT: Neck supple; no JVD; no LAD CVS: RRR, S1 and S2 CHEST: Clear ABD: Soft, NT, + BS EXT: ++edema Results/Medications Result Diagram: 10/18/16 0500 10/18/16 0500 Results 24 hrs Laboratory Tests Test 10/18/16 05:00 Alanine Aminotransferase (ALT/SGPT) 38 Albumin 2.8 L Albumin/Globulin Ratio 0.77 Alkaline Phosphatase 147 H Arterial Blood HCO3 30.3 H Arterial Blood Base Excess 4.9 H Arterial Blood Oxygen Saturation 97.5 Sky Test ACCEPTAB Arterial Blood Gas Puncture Site Right Brachial Anion Gap 13 Anisocytosis 1+ Arterial Blood Carboxyhemoglobin 0 Arterial Blood Date Drawn 10/18/2016 5:00:07 AM Arterial Blood Methemoglobin 0.2 Arterial Blood pCO2 (Temp correct) 47.6 H Arterial Blood pH (Temp corrected) 7.421 Arterial Blood pO2 (Temp corrected) 98.1 Aspartate Amino Transf (AST/SGOT) 38 Basophils # 0.0 Basophils % 0.5 Blood Gas A-a O2 Differential 59.9 H Blood Gas Actual Respiration Rate 16 Blood Gas Low PEEP Setting 5.0 Blood Gas Modality VENT - AC Blood Gas Notified Time 10/18/2016 5:20:26 AM Blood Gas Notified Whom UP Blood Gas Respiration Rate 16.0 Blood Gas Specimen Source Blood arterial Blood Gas Temperature 37.0 Blood Gas Tidal Volume 500.0 Blood Morphology Comment Blood Urea Nitrogen 8 Calcium Level 8.8 Carbon Dioxide Level 31 Chloride Level 102 Creatinine 0.61 Differential Comment AUTO w/SCAN Direct Bilirubin 0.00 Eosinophils # 2.1 H Eosinophils % 23.9 H FiO2 30.0 Globulin 3.60 H Glucose Level 93 Hematocrit 36.0 L Hemoglobin 12.2 L Hypochromasia 1+ Indirect Bilirubin 0.2 Large Platelets OCCASIONAL Lymphocytes # 1.4 Lymphocytes % 16.5 Magnesium Level 1.6 L Mean Corpuscular Hemoglobin 28.9 L Mean Corpuscular Hemoglobin Concent 33.8 Mean Corpuscular Volume 85.6 Mean Platelet Volume 10.2 Monocytes # 1.6 H Monocytes % 17.9 H Neutrophils # 3.6 Neutrophils % 41.2 Nucleated Red Blood Cells # 0.0 Nucleated Red Blood Cells % 0.0 Oxyhemoglobin Percent 97.3 Platelet Count 369 Potassium Level 3.9 Red Blood Count 4.20 L Red Cell Distribution Width 14.8 H Sodium Level 142 Total Bilirubin 0.2 Total Hemoglobin 12.6 Total Protein 6.4 White Blood Count 8.8 # Medications Current Medications Ondansetron HCl (Zofran Inj) 4 mg Q6H PRN IV NAUSEA AND/OR VOMITING; Start at 18:00 Morphine Sulfate (morphine) 2 mg Q4H PRN IV PAIN LEVEL 7-10 Last administered on 10/17/16 19:41; Admin Dose 2 MG; Start 09/15/16 at 18:00 Haloperidol (Haldol) 5 mg Q6H PRN IM AGITATION Last administered on 10/18/16 13:16; Admin Dose 5 MG; Start 09/18/16 at 11:30 Famotidine (Pepcid Iv) 20 mg BID IV Last administered on 10/18/16 07:58; Admin Dose 20 MG; Start 09/19/16 at 21:00 Metoclopramide HCl 10 mg 10 mg Q12 IV Last administered on 10/18/16 07:58; Admin Dose 10 MG; Start 09/24/16 at 11:30 Midazolam HCl/ Dextrose (Versed/D5W) 50 ml @ 2 mls/hr TITRATE IV Last administered on 10/18/16 12:55; Admin Dose 8 MLS/HR; Start 09/25/16 at 12:00; Status Future hold Acetaminophen (Tylenol Liquid) 650 mg Q4H PRN NGT PAIN AND OR ELEVATED TEMP Last administered on 10/14/16 19:56; Admin Dose 650 MG; Start 09/28/16 at 13:30 Lisinopril (Zestril) 2.5 mg DAILY GTB Last administered on 10/16/16 09:04; Admin Dose 2.5 MG; Start 10/02/16 at 09:00 Collagenase (Santyl) 1 applic DAILY TOP Last administered on 10/18/16 13:10; Admin Dose 1 APPLIC; Start 10/08/16 at 20:00 Nystatin (Nystatin Powder) 1 applic BID TOP Last administered on 10/18/16 11: 42; Admin Dose 1 APPLIC; Start 10/08/16 at 21:00 Collagenase 1 applic 1 applic PRN PRN TOP WOUND CARE Last administered on 07:54; Admin Dose 1 APPLIC; Start 10/08/16 at 17:30 Potassium Chloride/Dextrose/ Sod Cl 1,000 ml @ 50 mls/hr Q20H IV Last administered on 10/18/16 13:56; Admin Dose 50 MLS/HR; Start 10/11/16 at 12:30 Fentanyl/Dextrose (D5W) 100 ml @ 2.5 mls/hr TITRATE IV Last administered on 15:03; Admin Dose 10 MLS/HR; Start 10/11/16 at 18:00 Lorazepam (Ativan) 2 mg Q2H PRN IV AGITATION Last administered on 10/17/16 20: 28; Admin Dose 2 MG; Start 10/16/16 at 16:00 Carvedilol (Coreg) 3.125 mg BID GTB Last administered on 10/17/16 20:28; Admin Dose 3.125 MG; Start 10/16/16 at 21:00 Assessment/Plan Additional Assessment/Plan IMP: 1. Respiratory Failure/Failure to liberate from MV 2. Right-sided pneumonia with parapneumonic effusion s/p VATS decort 3. s/p Septic Shock 5. Substance abuse 6. FEN- tolerating TF's RECS: 1. Vent support; await trach 2. Titrate off versed gtt 3. TF's/free H20 4. Am labs/CXR 35 min cc time NAV DAVIDSON MD Oct 18, 2016 15:43
--- NOTE | 2016-10-18 16:30 | CONS ---
DANIELA MARISOL De La Vega 10/18/16 1630: Date/Time of Note Date/Time of Note DATE: 10/18/16 TIME: 16:27 Assessment/Plan Assessment/Plan Additional Assessment/Plan - h/o sepsis, septic shock - PNA with parapneumonic effusion. Could have started as CAP, other considerations include aspiration PNA. - h/o recurrent right pleural effusion. s/p diagnostic thoracentesis on 09/22/16. It showed glu=74 pro <2, [id number]. No malignancy on cytology. s/p repeat thoracentesis 10/01/16, no malignancy on cytology. Right chest tube placed . 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) - h/o transaminitis, possibly shock liver, improved - h/o drug rash likely d/t pip/tazo, resolving - antimicrobial history: ashlyn (09/19/16-10/04/16, 10/08/16-10/10/16), azithromycin (10/02/16-10/06/16), pip/tazo (09/29/16-10/08/16), Tamiflu (10/02/16-10/08/16), ashlyn - negative results: rapid influenza screen, PPD, legionella antigen, mycoplasma pneumoniae, chlamydia pneumoniae serology, and respiratory viral panel; AFB smear (09/29, 09/30, 10/01, 10/08, 10/13) recommendations: - Anticipated Trach/PEG this week - monitor Pt systemic antibiotics - management d/w [facility] and Dr Hernandez Consultation Date/Type/Reason Admit Date/Time Sep 15, 2016 at 16:54 Initial Consult Date 09/29/16 Type of Consultation: ID Referring Provider: JAN ZHANG 24 HR Interval Summary Subjective hx not possible: pt non-verbal Constitutional: other (sedated. Multiple failed vent weans. Afebrile w/ nl WBC off Abx. No reports of diarrhea), requiring IVF, requiring O2 Exam/Review of Systems Vital Signs Vitals Vital Signs Date Time Temp Pulse Resp B/P Pulse Ox O2 Delivery O2 Flow Rate FiO2 10/18/16 16:15 59 10/18/16 13:15 109/81 100 10/18/16 12:00 98.9 10/18/16 11:40 16 30 10/17/16 21:00 Mechanical Ventilator Intake and Output 10/17/16 10/17/16 10/18/16 15:00 23:00 07:00 Intake Total 1010 ml 1060 ml 1010 ml Output Total 1780 ml 1245 ml 1100 ml Balance -770 ml -185 ml -90 ml Exam Constitutional: non-verbal, other (opens eyes) Head: atraumatic, normocephalic Eyes: nl conjunctiva, nl sclera ENMT: nl external ears & nose Neck: non-tender, supple Respiratory: diminished breath sounds Cardiovascular: regular rate and rhythm Gastrointestinal: bowel sounds, non-tender, soft Results Result Diagram: 10/18/16 0500 10/18/16 0500 Results 24 hrs Laboratory Tests Test 10/18/16 05:00 Alanine Aminotransferase (ALT/SGPT) 38 Albumin 2.8 L Albumin/Globulin Ratio 0.77 Alkaline Phosphatase 147 H Arterial Blood HCO3 30.3 H Arterial Blood Base Excess 4.9 H Arterial Blood Oxygen Saturation 97.5 Sky Test ACCEPTAB Arterial Blood Gas Puncture Site Right Brachial Anion Gap 13 Anisocytosis 1+ Arterial Blood Carboxyhemoglobin 0 Arterial Blood Date Drawn 10/18/2016 5:00:07 AM Arterial Blood Methemoglobin 0.2 Arterial Blood pCO2 (Temp correct) 47.6 H Arterial Blood pH (Temp corrected) 7.421 Arterial Blood pO2 (Temp corrected) 98.1 Aspartate Amino Transf (AST/SGOT) 38 Basophils # 0.0 Basophils % 0.5 Blood Gas A-a O2 Differential 59.9 H Blood Gas Actual Respiration Rate 16 Blood Gas Low PEEP Setting 5.0 Blood Gas Modality VENT - AC Blood Gas Notified Time 10/18/2016 5:20:26 AM Blood Gas Notified Whom UP Blood Gas Respiration Rate 16.0 Blood Gas Specimen Source Blood arterial Blood Gas Temperature 37.0 Blood Gas Tidal Volume 500.0 Blood Morphology Comment Blood Urea Nitrogen 8 Calcium Level 8.8 Carbon Dioxide Level 31 Chloride Level 102 Creatinine 0.61 Differential Comment AUTO w/SCAN Direct Bilirubin 0.00 Eosinophils # 2.1 H Eosinophils % 23.9 H FiO2 30.0 Globulin 3.60 H Glucose Level 93 Hematocrit 36.0 L Hemoglobin 12.2 L Hypochromasia 1+ Indirect Bilirubin 0.2 Large Platelets OCCASIONAL Lymphocytes # 1.4 Lymphocytes % 16.5 Magnesium Level 1.6 L Mean Corpuscular Hemoglobin 28.9 L Mean Corpuscular Hemoglobin Concent 33.8 Mean Corpuscular Volume 85.6 Mean Platelet Volume 10.2 Monocytes # 1.6 H Monocytes % 17.9 H Neutrophils # 3.6 Neutrophils % 41.2 Nucleated Red Blood Cells # 0.0 Nucleated Red Blood Cells % 0.0 Oxyhemoglobin Percent 97.3 Platelet Count 369 Potassium Level 3.9 Red Blood Count 4.20 L Red Cell Distribution Width 14.8 H Sodium Level 142 Total Bilirubin 0.2 Total Hemoglobin 12.6 Total Protein 6.4 White Blood Count 8.8 # Medications Medications Current Medications Ondansetron HCl (Zofran Inj) 4 mg Q6H PRN IV NAUSEA AND/OR VOMITING; Start at 18:00 Morphine Sulfate (morphine) 2 mg Q4H PRN IV PAIN LEVEL 7-10 Last administered on 10/17/16 19:41; Admin Dose 2 MG; Start 09/15/16 at 18:00 Haloperidol (Haldol) 5 mg Q6H PRN IM AGITATION Last administered on 10/18/16 13:16; Admin Dose 5 MG; Start 09/18/16 at 11:30 Famotidine (Pepcid Iv) 20 mg BID IV Last administered on 10/18/16 07:58; Admin Dose 20 MG; Start 09/19/16 at 21:00 Metoclopramide HCl 10 mg 10 mg Q12 IV Last administered on 10/18/16 07:58; Admin Dose 10 MG; Start 09/24/16 at 11:30 Midazolam HCl/ Dextrose (Versed/D5W) 50 ml @ 2 mls/hr TITRATE IV Last administered on 10/18/16 12:55; Admin Dose 8 MLS/HR; Start 09/25/16 at 12:00; Status Future hold Acetaminophen (Tylenol Liquid) 650 mg Q4H PRN NGT PAIN AND OR ELEVATED TEMP Last administered on 10/14/16 19:56; Admin Dose 650 MG; Start 09/28/16 at 13:30 Lisinopril (Zestril) 2.5 mg DAILY GTB Last administered on 10/16/16 09:04; Admin Dose 2.5 MG; Start 10/02/16 at 09:00 Collagenase (Santyl) 1 applic DAILY TOP Last administered on 10/18/16 13:10; Admin Dose 1 APPLIC; Start 10/08/16 at 20:00 Nystatin (Nystatin Powder) 1 applic BID TOP Last administered on 10/18/16 11: 42; Admin Dose 1 APPLIC; Start 10/08/16 at 21:00 Collagenase 1 applic 1 applic PRN PRN TOP WOUND CARE Last administered on 07:54; Admin Dose 1 APPLIC; Start 10/08/16 at 17:30 Potassium Chloride/Dextrose/ Sod Cl 1,000 ml @ 50 mls/hr Q20H IV Last administered on 10/18/16 13:56; Admin Dose 50 MLS/HR; Start 10/11/16 at 12:30 Fentanyl/Dextrose (D5W) 100 ml @ 2.5 mls/hr TITRATE IV Last administered on 15:03; Admin Dose 10 MLS/HR; Start 10/11/16 at 18:00 Lorazepam (Ativan) 2 mg Q2H PRN IV AGITATION Last administered on 10/17/16 20: 28; Admin Dose 2 MG; Start 10/16/16 at 16:00 Carvedilol (Coreg) 3.125 mg BID GTB Last administered on 10/17/16 20:28; Admin Dose 3.125 MG; Start 10/16/16 at 21:00 MIGUEL HERNANDEZ M.D. 10/20/16 0944: Assessment/Plan Assessment/Plan Additional Assessment/Plan Mary attestation: I discussed the management with MATTIE Mcelroy and agree with above. Exam/Review of Systems Results Result Diagram: 10/18/16 0500 10/18/16 0500 MARISOL MCELROY Oct 18, 2016 16:30 MIGUEL HERNANDEZ M.D. Oct 20, 2016 09:44
[2016-10-18] MEDS: LORAZEPAM 2 MG INJ IV PRN ×2 (21:40→23:44)
[2016-10-19] VITALS (98 sets, daily range): BP systolic 86–141; BP diastolic 50–109; PULSE 54–116; RESP 0–31
[2016-10-19] MEDS: MIDAZOLAM 50 MG in DEXTROSE 5% 40 ML IV SCH ×5 (00:56→22:11)
[2016-10-19] MEDS: LORAZEPAM 2 MG INJ IV PRN ×3 (02:20→20:50)
[2016-10-19] MEDS: HALOPERIDOL 5 MG INJ IM PRN ×2 (02:48→17:15)
[2016-10-19 04:27] LABS: ALBUMIN 2.8 g/dl (3.3-4.9)
[2016-10-19 04:28] LABS: POTASSIUM 3.8 mmol/L (3.5-5.1)
[2016-10-19] MEDS: FENTAnyl 1,000 MCG in DEXTROSE 5% 80 ML IV SCH ×2 (04:28→15:28)
[2016-10-19 04:30] LABS: BILIRUBIN,INDIRECT 0.2 mg/dl (0-1.1); BILIRUBIN,TOTAL 0.2 mg/dl (0.2-1.3); CREATININE 0.55 mg/dl (0.61-1.24)
[2016-10-19 04:31] LABS: ALBUMIN/GLOBULIN RATIO 0.82; CALCIUM 8.5 mg/dl (8.4-10.2); MAGNESIUM 1.6 mg/dl (1.7-2.5); TOTAL PROTEIN 6.2 g/dl (6.1-8.1)
[2016-10-19 04:40] LABS: INR 0.93; PROTIME 12.5 Sec (12.2-14.2)
[2016-10-19 04:41] LABS: PARTIAL THROMBOPLASTIN TIME 32.5 Sec (25.0-35.0)
[2016-10-19 05:07] LABS: BASOPHIL # 0.1 10^3/ul (0.0-0.1); EOSINOPHILS # 1.4 10^3/ul (0.0-0.5); EOSINOPHILS % 17.5 % (0.0-7.0); HEMATOCRIT 33.3 % (42.0-52.0); HEMOGLOBIN 11.3 g/dl (14.0-18.0); LYMPHOCYTES # 1.2 10^3/ul (0.8-2.9); LYMPHOCYTES % 15.9 % (15.0-51.0); MEAN CORPUSCULAR HGB CONC 33.8 g/dl (32.0-37.0); MEAN CORPUSCULAR VOLUME 85.9 fl (82.0-101.0); MEAN PLATELET VOLUME 10.6 fl (7.4-10.4); MONOCYTE # 1.1 10^3/ul (0.3-0.9); MONOCYTES % 13.9 % (0.0-11.0); NEUTROPHILS % 51.7 % (39.0-77.0); PLATELET COUNT 376 10^3/UL (140-440); RED BLOOD COUNT 3.88 10^6/ul (4.70-6.10); RED CELL DISTRIBUTION WIDTH 14.4 % (11.5-14.5); UNCORRECTED WBC 7.7 10^3/ul (4.8-10.8); WHITE BLOOD COUNT 7.7 10^3/ul (4.8-10.8)
[2016-10-19 05:42] LABS: CONDITION 1; LH ANALYZER COMMENTS 1
[2016-10-19] MEDS ORDERED: MAGNESIUM SULFATE 2 GM/50 ML 50 ML IVPB ONE (07:30)
--- NOTE | 2016-10-19 08:06 | CONS ---
Date/Time of Note Date/Time of Note DATE: 10/19/16 TIME: 08:03 Assessment/Plan Assessment/Plan Additional Assessment/Plan Assessment and recommendation; next 1. Patient admitted with right-sided pneumonia with empyema status post VATS procedure and chest tube placement. Significant reduction in the drainage from the chest tube over the last 24 hours 200 mL so far. Next 2. Patient unable to be liberated from mechanical ventilation due to episodes of severe drug withdrawal. 3. Scheduled for tracheostomy and PEG tube placement. Next Continue current treatment. Ventilator settings were reviewed. Still requiring Versed and fentanyl drips although at a lower dose. Consultation Date/Type/Reason Admit Date/Time Sep 15, 2016 at 16:54 Initial Consult Date 09/29/16 Type of Consultation: ID Referring Provider: JAN ZHANG 24 HR Interval Summary Free Text/Dictation Patient condition remains unchanged. Still requiring full ventilator support. Unable to be weaned off from mechanical ventilation due to severe symptoms of drug withdrawal. However has remained hemodynamically stable. Current examination; middle aged man or intubated sedated currently in no distress. Exam/Review of Systems Vital Signs Vitals Vital Signs Date Time Temp Pulse Resp B/P Pulse Ox O2 Delivery O2 Flow Rate FiO2 10/19/16 07:00 59 16 108/76 100 Mechanical Ventilator 10/19/16 05:27 30 10/19/16 04:00 98.5 Intake and Output 10/18/16 10/18/16 10/19/16 15:00 23:00 07:00 Intake Total 1196.0 ml 1025.0 ml 545.5 ml Output Total 690 ml 830 ml 900 ml Balance 506.0 ml 195.0 ml -354.5 ml Exam HEENT examination; supple neck, no JVD. No lymphadenopathy. No thyromegaly, or intubated. Midsize pupils reactive to light. Next Chest examination; clear to auscultation bilaterally, S1-S2 audible no murmurs regular rhythm. Right-sided chest tube in place. There is no air leak in the Pleur-evac chamber. Next Abdomen examination; soft, nondistended, no organomegaly. Bowel sounds audible. Extremity examination; no peripheral edema. Pulses 2+ bilaterally. WEIGHER AND MIXER examination; patient is sedated. Results Result Diagram: 1/30/17 0400 1/30/17 0400 Results 24 hrs Laboratory Tests Test 10/19/16 04:00 Activated Partial Thromboplast Time 32.5 Alanine Aminotransferase (ALT/SGPT) 62 Albumin 2.8 L Albumin/Globulin Ratio 0.82 Alkaline Phosphatase 265 #H Anion Gap 11 Aspartate Amino Transf (AST/SGOT) 65 #H Basophils # 0.1 Basophils % 1.0 Blood Morphology Comment Blood Urea Nitrogen 7 Calcium Level 8.5 Carbon Dioxide Level 31 Chloride Level 103 Creatinine 0.55 L Direct Bilirubin 0.00 Eosinophils # 1.4 H Eosinophils % 17.5 H Globulin 3.40 H Glucose Level 100 Hematocrit 33.3 L Hemoglobin 11.3 L INR International Normalized Ratio 0.93 Indirect Bilirubin 0.2 Lymphocytes # 1.2 Lymphocytes % 15.9 Magnesium Level 1.6 L Mean Corpuscular Hemoglobin 29.0 Mean Corpuscular Hemoglobin Concent 33.8 Mean Corpuscular Volume 85.9 Mean Platelet Volume 10.6 H Monocytes # 1.1 H Monocytes % 13.9 H Neutrophils # 4.0 Neutrophils % 51.7 Nucleated Red Blood Cells # 0.0 Nucleated Red Blood Cells % 0.0 Platelet Count 376 Potassium Level 3.8 Prothrombin Time 12.5 Prothrombin Time Ratio 1.0 Red Blood Count 3.88 L Red Cell Distribution Width 14.4 Sodium Level 141 Total Bilirubin 0.2 Total Protein 6.2 White Blood Count 7.7 Medications Medications Current Medications Ondansetron HCl (Zofran Inj) 4 mg Q6H PRN IV NAUSEA AND/OR VOMITING; Start at 18:00 Morphine Sulfate (morphine) 2 mg Q4H PRN IV PAIN LEVEL 7-10 Last administered on 10/17/16 19:41; Admin Dose 2 MG; Start 09/15/16 at 18:00 Haloperidol (Haldol) 5 mg Q6H PRN IM AGITATION Last administered on 10/19/16 02:48; Admin Dose 5 MG; Start 09/18/16 at 11:30 Famotidine (Pepcid Iv) 20 mg BID IV Last administered on 10/18/16 20:03; Admin Dose 20 MG; Start 09/19/16 at 21:00 Metoclopramide HCl 10 mg 10 mg Q12 IV Last administered on 10/18/16 20:03; Admin Dose 10 MG; Start 09/24/16 at 11:30 Midazolam HCl/ Dextrose (Versed/D5W) 50 ml @ 2 mls/hr TITRATE IV Last administered on 10/19/16 04:16; Admin Dose 8 MLS/HR; Start 09/25/16 at 12:00; Status Future hold Acetaminophen (Tylenol Liquid) 650 mg Q4H PRN NGT PAIN AND OR ELEVATED TEMP Last administered on 10/14/16 19:56; Admin Dose 650 MG; Start 09/28/16 at 13:30 Lisinopril (Zestril) 2.5 mg DAILY GTB Last administered on 10/16/16 09:04; Admin Dose 2.5 MG; Start 10/02/16 at 09:00 Collagenase (Santyl) 1 applic DAILY TOP Last administered on 10/18/16 13:10; Admin Dose 1 APPLIC; Start 10/08/16 at 20:00 Nystatin (Nystatin Powder) 1 applic BID TOP Last administered on 10/18/16 20: 03; Admin Dose 1 APPLIC; Start 10/08/16 at 21:00 Collagenase 1 applic 1 applic PRN PRN TOP WOUND CARE Last administered on 07:54; Admin Dose 1 APPLIC; Start 10/08/16 at 17:30 Potassium Chloride/Dextrose/ Sod Cl 1,000 ml @ 50 mls/hr Q20H IV Last administered on 10/18/16 13:56; Admin Dose 50 MLS/HR; Start 10/11/16 at 12:30 Fentanyl/Dextrose (D5W) 100 ml @ 2.5 mls/hr TITRATE IV Last administered on 04:28; Admin Dose 10 MLS/HR; Start 10/11/16 at 18:00 Lorazepam (Ativan) 2 mg Q2H PRN IV AGITATION Last administered on 10/19/16 02: 20; Admin Dose 2 MG; Start 10/16/16 at 16:00 Carvedilol 3.125 mg 3.125 mg BID GTB Last administered on 10/18/16 20:03; Admin Dose 3.125 MG; Start 10/16/16 at 21:00 Magnesium Sulfate (Magnesium Sulfate 2 Gm/50 ml) 50 ml @ 25 mls/hr ONCE ONCE IVPB ; Start 10/19/16 at 07:30; Stop 10/19/16 at 09:29 ILYA HILL Oct 19, 2016 08:06
[2016-10-19] MEDS: METOCLOPRAMIDE 10 MG INJ IV SCH ×2 (08:45→20:50)
[2016-10-19] MEDS: FAMOTIDINE 20 MG INJ IV SCH ×2 (08:45→20:50)
[2016-10-19] MEDS: LISINOPRIL 5 MG TAB GTB SCH (08:46)
[2016-10-19] MEDS: NYSTATIN 30 GM POWDER BTL TOP SCH ×2 (08:49→20:51)
[2016-10-19] MEDS: COLLAGENASE 30 GM TUBE TOP SCH (09:00)
[2016-10-19] MEDS: D5-NS + KCL 20 MEQ 1,000 ML IV SCH (11:25)
--- NOTE | 2016-10-19 14:50 | PN ---
Date/Time of Note Date/Time of Note DATE: 10/19/16 TIME: 14:40 Assessment/Plan VTE Prophylaxis VTE Prophylaxis Intervention: SCD's Lines/Catheters IV Catheter Type (from Nrs): Central Line Central line still needed: Yes Urinary Cath still in place: Yes Reason Cath still needed: urinary retention Assessment/Plan Chief Complaint/Hosp Course ASSESSMENT AND PLAN: 1. Acute respiratory failure patient, failed extubation. Continue ventilator support. Dr. Miles foster is following the patient from pulmonology consultation. 2. Right-sided pneumonia with complicated parapneumonic effusion, status post thoracentesis, s/p R chest tube placement. Continue antibiotics per Dr. Shi foster following from Infectious Disease standpoint. 3. Acute pulmonary emboli. Continue patient on Lovenox. 4. 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 Dr. Luna is following from cardiology standpoint. 5. Encephalopathy, likely toxic metabolic, resolving. Continue to monitor. 6. Sepsis secondary to #2, resolved. Pending tracheostomy. Continue Pepcid for peptic ulcer disease prophylaxis. Further recommendations based on clinical course. Plan of care discussed with Dr. Patel. Problems: Subjective 24 Hr Interval Summary Free Text/Dictation No fever nausea vomiting, patient gets agitated at times, continued on vent support, pending tracheostomy today. Exam/Review of Systems Vital Signs Vitals Vital Signs Date Time Temp Pulse Resp B/P Pulse Ox O2 Delivery O2 Flow Rate FiO2 10/19/16 13:30 68 0 119/85 100 10/19/16 13:28 30 10/19/16 12:00 98.1 10/19/16 08:00 Mechanical Ventilator Intake and Output 10/18/16 10/18/16 10/19/16 15:00 23:00 07:00 Intake Total 1196.0 ml 1025.0 ml 545.5 ml Output Total 690 ml 830 ml 900 ml Balance 506.0 ml 195.0 ml -354.5 ml Exam GENERAL: Well-developed, well-nourished male, orally intubated, on vent support. LUNGS: Diminished with scattered rhonchi bilaterally. HEART: Normal S1, S2. No murmurs, gallops, clicks, rubs noted. ABDOMEN: Round, soft, nondistended, nontender. Bowel sounds present. EXTREMITIES: No edema, clubbing, cyanosis. Pulses equal bilaterally 2+. SKIN: There is no rash. NEUROLOGIC: Sedated Results Result Diagram: 10/19/16 0400 10/19/16 0400 Results 24 hrs Laboratory Tests Test 10/19/16 04:00 Activated Partial Thromboplast Time 32.5 Alanine Aminotransferase (ALT/SGPT) 62 Albumin 2.8 L Albumin/Globulin Ratio 0.82 Alkaline Phosphatase 265 #H Anion Gap 11 Aspartate Amino Transf (AST/SGOT) 65 #H Basophils # 0.1 Basophils % 1.0 Blood Morphology Comment Blood Urea Nitrogen 7 Calcium Level 8.5 Carbon Dioxide Level 31 Chloride Level 103 Creatinine 0.55 L Direct Bilirubin 0.00 Eosinophils # 1.4 H Eosinophils % 17.5 H Globulin 3.40 H Glucose Level 100 Hematocrit 33.3 L Hemoglobin 11.3 L INR International Normalized Ratio 0.93 Indirect Bilirubin 0.2 Lymphocytes # 1.2 Lymphocytes % 15.9 Magnesium Level 1.6 L Mean Corpuscular Hemoglobin 29.0 Mean Corpuscular Hemoglobin Concent 33.8 Mean Corpuscular Volume 85.9 Mean Platelet Volume 10.6 H Monocytes # 1.1 H Monocytes % 13.9 H Neutrophils # 4.0 Neutrophils % 51.7 Nucleated Red Blood Cells # 0.0 Nucleated Red Blood Cells % 0.0 Platelet Count 376 Potassium Level 3.8 Prothrombin Time 12.5 Prothrombin Time Ratio 1.0 Red Blood Count 3.88 L Red Cell Distribution Width 14.4 Sodium Level 141 Total Bilirubin 0.2 Total Protein 6.2 White Blood Count 7.7 Medications Medications Current Medications Ondansetron HCl (Zofran Inj) 4 mg Q6H PRN IV NAUSEA AND/OR VOMITING; Start at 18:00 Morphine Sulfate (morphine) 2 mg Q4H PRN IV PAIN LEVEL 7-10 Last administered on 10/17/16 19:41; Admin Dose 2 MG; Start 09/15/16 at 18:00 Haloperidol (Haldol) 5 mg Q6H PRN IM AGITATION Last administered on 10/19/16 02:48; Admin Dose 5 MG; Start 09/18/16 at 11:30 Famotidine (Pepcid Iv) 20 mg BID IV Last administered on 10/19/16 08:45; Admin Dose 20 MG; Start 09/19/16 at 21:00 Metoclopramide HCl 10 mg 10 mg Q12 IV Last administered on 10/19/16 08:45; Admin Dose 10 MG; Start 09/24/16 at 11:30 Midazolam HCl/ Dextrose (Versed/D5W) 50 ml @ 2 mls/hr TITRATE IV Last administered on 10/19/16 09:42; Admin Dose 8 MLS/HR; Start 09/25/16 at 12:00; Status Future hold Acetaminophen (Tylenol Liquid) 650 mg Q4H PRN NGT PAIN AND OR ELEVATED TEMP Last administered on 10/14/16 19:56; Admin Dose 650 MG; Start 09/28/16 at 13:30 Lisinopril (Zestril) 2.5 mg DAILY GTB Last administered on 10/16/16 09:04; Admin Dose 2.5 MG; Start 10/02/16 at 09:00 Collagenase (Santyl) 1 applic DAILY TOP Last administered on 10/18/16 13:10; Admin Dose 1 APPLIC; Start 10/08/16 at 20:00 Nystatin (Nystatin Powder) 1 applic BID TOP Last administered on 10/19/16 08: 49; Admin Dose 1 APPLIC; Start 10/08/16 at 21:00 Collagenase 1 applic 1 applic PRN PRN TOP WOUND CARE Last administered on 07:54; Admin Dose 1 APPLIC; Start 10/08/16 at 17:30 Potassium Chloride/Dextrose/ Sod Cl 1,000 ml @ 50 mls/hr Q20H IV Last administered on 10/19/16 11:25; Admin Dose 50 MLS/HR; Start 10/11/16 at 12:30 Fentanyl/Dextrose (D5W) 100 ml @ 2.5 mls/hr TITRATE IV Last administered on 04:28; Admin Dose 10 MLS/HR; Start 10/11/16 at 18:00 Lorazepam (Ativan) 2 mg Q2H PRN IV AGITATION Last administered on 10/19/16 02: 20; Admin Dose 2 MG; Start 10/16/16 at 16:00 Carvedilol (Coreg) 3.125 mg BID GTB Last administered on 10/18/16 20:03; Admin Dose 3.125 MG; Start 10/16/16 at 21:00 JAN ZHANG Oct 19, 2016 14:50
--- NOTE | 2016-10-19 15:36 | CONS ---
Date/Time of Note Date/Time of Note DATE: 10/19/16 TIME: 15:36 Assessment/Plan Assessment/Plan Additional Assessment/Plan Chief Complaint/Hosp Course Impression: 1. dysphagia secondary to encephalopathy, on tube feeds, family agreed to PEG placement 2. Right-sided pneumonia with complicated parapneumonic effusion, status post thoracentesis,s/p R chest tube placement. 3. Acute pulmonary emboli. 4. 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 5. Encephalopathy 6. Sepsis secondary to #2, resolved. Recommendation: 1. trach placement today and will schedule PEG in am 2. continue tube feeds 3. continue other supportive cares from primary and other consultants. Consultation Date/Type/Reason Admit Date/Time Sep 15, 2016 at 16:54 Initial Consult Date 09/29/16 Type of Consultation: ID Referring Provider: JAN ZHANG 24 HR Interval Summary Constitutional: no complaints Exam/Review of Systems Vital Signs Vitals Vital Signs Date Time Temp Pulse Resp B/P Pulse Ox O2 Delivery O2 Flow Rate FiO2 10/19/16 13:30 68 0 119/85 100 10/19/16 13:28 30 10/19/16 12:00 98.1 10/19/16 08:00 Mechanical Ventilator Intake and Output 10/18/16 10/18/16 10/19/16 15:00 23:00 07:00 Intake Total 1196.0 ml 1025.0 ml 545.5 ml Output Total 690 ml 830 ml 900 ml Balance 506.0 ml 195.0 ml -354.5 ml Exam Constitutional: alert, oriented, well developed Psych: nl mood/affect, no complaints Head: atraumatic, normocephalic Eyes: EOMI, PERRL, nl conjunctiva, nl lids, nl sclera ENMT: nl external ears & nose, nl lips & teeth, nl nasal mucosa & septum Neck: non-tender, supple Respiratory: clear to auscultation, normal air movement Cardiovascular: nl pulses, regular rate and rhythm Gastrointestinal: nl liver, spleen, non-tender, soft Musculoskeletal: nl extremities to inspection, nl gait and stance Extremities: normal pulses Neurological: MANAGER WOMEN II-XII intact, nl mental status, nl speech, nl strength Skin: nl turgor, No rash or lesions Lymph: nl lymph nodes Results Result Diagram: 10/19/1639910/19/16 0400 Results 24 hrs Laboratory Tests Test 10/19/16 04:00 Activated Partial Thromboplast Time 32.5 Alanine Aminotransferase (ALT/SGPT) 62 Albumin 2.8 L Albumin/Globulin Ratio 0.82 Alkaline Phosphatase 265 #H Anion Gap 11 Aspartate Amino Transf (AST/SGOT) 65 #H Basophils # 0.1 Basophils % 1.0 Blood Morphology Comment Blood Urea Nitrogen 7 Calcium Level 8.5 Carbon Dioxide Level 31 Chloride Level 103 Creatinine 0.55 L Direct Bilirubin 0.00 Eosinophils # 1.4 H Eosinophils % 17.5 H Globulin 3.40 H Glucose Level 100 Hematocrit 33.3 L Hemoglobin 11.3 L INR International Normalized Ratio 0.93 Indirect Bilirubin 0.2 Lymphocytes # 1.2 Lymphocytes % 15.9 Magnesium Level 1.6 L Mean Corpuscular Hemoglobin 29.0 Mean Corpuscular Hemoglobin Concent 33.8 Mean Corpuscular Volume 85.9 Mean Platelet Volume 10.6 H Monocytes # 1.1 H Monocytes % 13.9 H Neutrophils # 4.0 Neutrophils % 51.7 Nucleated Red Blood Cells # 0.0 Nucleated Red Blood Cells % 0.0 Platelet Count 376 Potassium Level 3.8 Prothrombin Time 12.5 Prothrombin Time Ratio 1.0 Red Blood Count 3.88 L Red Cell Distribution Width 14.4 Sodium Level 141 Total Bilirubin 0.2 Total Protein 6.2 White Blood Count 7.7 Medications Medications Current Medications Ondansetron HCl (Zofran Inj) 4 mg Q6H PRN IV NAUSEA AND/OR VOMITING; Start at 18:00 Morphine Sulfate (morphine) 2 mg Q4H PRN IV PAIN LEVEL 7-10 Last administered on 10/17/16 19:41; Admin Dose 2 MG; Start 09/15/16 at 18:00 Haloperidol (Haldol) 5 mg Q6H PRN IM AGITATION Last administered on 10/19/16 02:48; Admin Dose 5 MG; Start 09/18/16 at 11:30 Famotidine (Pepcid Iv) 20 mg BID IV Last administered on 10/19/16 08:45; Admin Dose 20 MG; Start 09/19/16 at 21:00 Metoclopramide HCl 10 mg 10 mg Q12 IV Last administered on 10/19/16 08:45; Admin Dose 10 MG; Start 09/24/16 at 11:30 Midazolam HCl/ Dextrose (Versed/D5W) 50 ml @ 2 mls/hr TITRATE IV Last administered on 10/19/16 09:42; Admin Dose 8 MLS/HR; Start 09/25/16 at 12:00; Status Future hold Acetaminophen (Tylenol Liquid) 650 mg Q4H PRN NGT PAIN AND OR ELEVATED TEMP Last administered on 10/14/16 19:56; Admin Dose 650 MG; Start 09/28/16 at 13:30 Lisinopril (Zestril) 2.5 mg DAILY GTB Last administered on 10/16/16 09:04; Admin Dose 2.5 MG; Start 10/02/16 at 09:00 Collagenase (Santyl) 1 applic DAILY TOP Last administered on 10/18/16 13:10; Admin Dose 1 APPLIC; Start 10/08/16 at 20:00 Nystatin (Nystatin Powder) 1 applic BID TOP Last administered on 10/19/16 08: 49; Admin Dose 1 APPLIC; Start 10/08/16 at 21:00 Collagenase 1 applic 1 applic PRN PRN TOP WOUND CARE Last administered on 07:54; Admin Dose 1 APPLIC; Start 10/08/16 at 17:30 Potassium Chloride/Dextrose/ Sod Cl 1,000 ml @ 50 mls/hr Q20H IV Last administered on 10/19/16 11:25; Admin Dose 50 MLS/HR; Start 10/11/16 at 12:30 Fentanyl/Dextrose (D5W) 100 ml @ 2.5 mls/hr TITRATE IV Last administered on 04:28; Admin Dose 10 MLS/HR; Start 10/11/16 at 18:00 Lorazepam (Ativan) 2 mg Q2H PRN IV AGITATION Last administered on 10/19/16 02: 20; Admin Dose 2 MG; Start 10/16/16 at 16:00 Carvedilol (Coreg) 3.125 mg BID GTB Last administered on 10/18/16 20:03; Admin Dose 3.125 MG; Start 10/16/16 at 21:00 ELMO GATICA MD Oct 19, 2016 15:36
--- NOTE | 2016-10-19 17:23 | PN ---
Date/Time of Note Date/Time of Note DATE: 10/19/16 TIME: 17:22 Assessment/Plan VTE Prophylaxis VTE Prophylaxis Intervention: SCD's Lines/Catheters IV Catheter Type (from Nrs): Central Line Central line still needed: No Urinary Cath still in place: Yes Reason Cath still needed: urinary retention Assessment/Plan Assessment/Plan Respiratory failure Pulmonary emboli Acute decompensated systolic congestive heart failure Severe biventricular cardiomyopathy with left ventricular ejection fraction 20% Pleural effusion status post thoracentesis -continue HILDA inhibitor as blood pressure and renal function permits. Continue anticoagulation blood pressure now borderline - hold beta beatriz and acer-inhipito titrate versed down as tolerated IV bolus planned for trach Subjective 24 Hr Interval Summary Free Text/Dictation The patiennt with no cahgne Exam/Review of Systems Vital Signs Vitals Vital Signs Date Time Temp Pulse Resp B/P Pulse Ox O2 Delivery O2 Flow Rate FiO2 10/19/16 16:00 67 10/19/16 15:40 16 99 30 10/19/16 13:30 119/85 10/19/16 12:00 98.1 10/19/16 08:00 Mechanical Ventilator Intake and Output 10/18/16 10/18/16 10/19/16 15:00 23:00 07:00 Intake Total 1196.0 ml 1025.0 ml 545.5 ml Output Total 690 ml 830 ml 900 ml Balance 506.0 ml 195.0 ml -354.5 ml Results Result Diagram: 10/19/16 0400 10/19/16 0400 Results 24 hrs Laboratory Tests Test 10/19/16 04:00 Activated Partial Thromboplast Time 32.5 Alanine Aminotransferase (ALT/SGPT) 62 Albumin 2.8 L Albumin/Globulin Ratio 0.82 Alkaline Phosphatase 265 #H Anion Gap 11 Aspartate Amino Transf (AST/SGOT) 65 #H Basophils # 0.1 Basophils % 1.0 Blood Morphology Comment Blood Urea Nitrogen 7 Calcium Level 8.5 Carbon Dioxide Level 31 Chloride Level 103 Creatinine 0.55 L Direct Bilirubin 0.00 Eosinophils # 1.4 H Eosinophils % 17.5 H Globulin 3.40 H Glucose Level 100 Hematocrit 33.3 L Hemoglobin 11.3 L INR International Normalized Ratio 0.93 Indirect Bilirubin 0.2 Lymphocytes # 1.2 Lymphocytes % 15.9 Magnesium Level 1.6 L Mean Corpuscular Hemoglobin 29.0 Mean Corpuscular Hemoglobin Concent 33.8 Mean Corpuscular Volume 85.9 Mean Platelet Volume 10.6 H Monocytes # 1.1 H Monocytes % 13.9 H Neutrophils # 4.0 Neutrophils % 51.7 Nucleated Red Blood Cells # 0.0 Nucleated Red Blood Cells % 0.0 Platelet Count 376 Potassium Level 3.8 Prothrombin Time 12.5 Prothrombin Time Ratio 1.0 Red Blood Count 3.88 L Red Cell Distribution Width 14.4 Sodium Level 141 Total Bilirubin 0.2 Total Protein 6.2 White Blood Count 7.7 Medications Medications Current Medications Ondansetron HCl (Zofran Inj) 4 mg Q6H PRN IV NAUSEA AND/OR VOMITING; Start at 18:00 Morphine Sulfate (morphine) 2 mg Q4H PRN IV PAIN LEVEL 7-10 Last administered on 10/17/16 19:41; Admin Dose 2 MG; Start 09/15/16 at 18:00 Haloperidol (Haldol) 5 mg Q6H PRN IM AGITATION Last administered on 10/19/16 17:15; Admin Dose 5 MG; Start 09/18/16 at 11:30 Famotidine (Pepcid Iv) 20 mg BID IV Last administered on 10/19/16 08:45; Admin Dose 20 MG; Start 09/19/16 at 21:00 Metoclopramide HCl 10 mg 10 mg Q12 IV Last administered on 10/19/16 08:45; Admin Dose 10 MG; Start 09/24/16 at 11:30 Midazolam HCl/ Dextrose (Versed/D5W) 50 ml @ 2 mls/hr TITRATE IV Last administered on 10/19/16 16:31; Admin Dose 8 MLS/HR; Start 09/25/16 at 12:00; Status Future hold Acetaminophen (Tylenol Liquid) 650 mg Q4H PRN NGT PAIN AND OR ELEVATED TEMP Last administered on 10/14/16 19:56; Admin Dose 650 MG; Start 09/28/16 at 13:30 Lisinopril (Zestril) 2.5 mg DAILY GTB Last administered on 10/16/16 09:04; Admin Dose 2.5 MG; Start 10/02/16 at 09:00 Collagenase (Santyl) 1 applic DAILY TOP Last administered on 10/18/16 13:10; Admin Dose 1 APPLIC; Start 10/08/16 at 20:00 Nystatin (Nystatin Powder) 1 applic BID TOP Last administered on 10/19/16 08: 49; Admin Dose 1 APPLIC; Start 10/08/16 at 21:00 Collagenase 1 applic 1 applic PRN PRN TOP WOUND CARE Last administered on 07:54; Admin Dose 1 APPLIC; Start 10/08/16 at 17:30 Potassium Chloride/Dextrose/ Sod Cl 1,000 ml @ 50 mls/hr Q20H IV Last administered on 10/19/16 11:25; Admin Dose 50 MLS/HR; Start 10/11/16 at 12:30 Fentanyl/Dextrose (D5W) 100 ml @ 2.5 mls/hr TITRATE IV Last administered on 15:28; Admin Dose 7.5 MLS/HR; Start 10/11/16 at 18:00 Lorazepam (Ativan) 2 mg Q2H PRN IV AGITATION Last administered on 10/19/16 02: 20; Admin Dose 2 MG; Start 10/16/16 at 16:00 Carvedilol (Coreg) 3.125 mg BID GTB Last administered on 10/18/16 20:03; Admin Dose 3.125 MG; Start 10/16/16 at 21:00 RONAK BAE MD Oct 19, 2016 17:23
[2016-10-19] MEDS ORDERED: ALTEPLASE (CATHFLO) 2 MG INJ CATHETER PRN (21:30)
[2016-10-19] MEDS: ALTEPLASE (CATHFLO) 2 MG INJ CATHETER PRN (22:11)
[2016-10-20] VITALS (65 sets, daily range): BP systolic 90–147; BP diastolic 52–113; PULSE 67–133; RESP 5–29
[2016-10-20] MEDS: LORAZEPAM 2 MG INJ IV PRN ×5 (00:47→16:29)
[2016-10-20] MEDS: MIDAZOLAM 50 MG in DEXTROSE 5% 40 ML IV SCH ×3 (05:00→17:33)
[2016-10-20] MEDS: FENTAnyl 1,000 MCG in DEXTROSE 5% 80 ML IV SCH ×2 (05:02→16:38)
[2016-10-20 05:23] LABS: BASOPHIL # 0.1 10^3/ul (0.0-0.1); BASOPHILS % 0.5 % (0.0-2.0); EOSINOPHILS # 1.4 10^3/ul (0.0-0.5); EOSINOPHILS % 11.4 % (0.0-7.0); HEMATOCRIT 36.2 % (42.0-52.0); HEMOGLOBIN 11.9 g/dl (14.0-18.0); LYMPHOCYTES # 1.5 10^3/ul (0.8-2.9); LYMPHOCYTES % 12.1 % (15.0-51.0); MEAN CORPUSCULAR HEMOGLOBIN 28.9 pg (29.0-33.0); MEAN CORPUSCULAR VOLUME 87.7 fl (82.0-101.0); MEAN PLATELET VOLUME 10.5 fl (7.4-10.4); MONOCYTE # 1.4 10^3/ul (0.3-0.9); MONOCYTES % 11.7 % (0.0-11.0); NEUTROPHILS % 64.3 % (39.0-77.0); PLATELET COUNT 402 10^3/UL (140-440); RED BLOOD COUNT 4.12 10^6/ul (4.70-6.10); RED CELL DISTRIBUTION WIDTH 14.9 % (11.5-14.5); UNCORRECTED WBC 12.4 10^3/ul (4.8-10.8); WHITE BLOOD COUNT 12.4 10^3/ul (4.8-10.8)
[2016-10-20 05:26] LABS: POTASSIUM 3.9 mmol/L (3.5-5.1)
[2016-10-20 05:29] LABS: CREATININE 0.56 mg/dl (0.61-1.24)
[2016-10-20 05:30] LABS: CALCIUM 8.6 mg/dl (8.4-10.2)
[2016-10-20] MEDS: D5-NS + KCL 20 MEQ 1,000 ML IV SCH (05:37)
[2016-10-20 05:54] LABS: CONDITION 1; LH ANALYZER COMMENTS 1
--- NOTE | 2016-10-20 08:10 | CONS ---
Date/Time of Note Date/Time of Note DATE: 10/20/16 TIME: 08:07 Assessment/Plan Assessment/Plan Additional Assessment/Plan Assessment and recommendation; next 1. Patient admitted with right sided pneumonia with empyema status post VATS procedure and chest tube placement. Initial chest tube is decreasing significantly over the last 48 hours. Next 2. Patient could not be extubated despite multiple attempts and also underwent an extubation trial which he failed immediately requiring him to be reintubated. Exhibiting profound agitation as well as drug withdrawal. Next 3. History of hypertension. Next Continue current treatment, currently ventilator settings are AC of 16 , tidal volume 500 PEEP of 5, 30% FiO2. Patient scheduled for tracheostomy and PEG tube placement today after which she will be transferred to a rehab facility and hopefully will be weaned off continuous IV fentanyl and Versed drips. Consultation Date/Type/Reason Admit Date/Time Sep 15, 2016 at 16:54 Initial Consult Date 09/29/16 Type of Consultation: ID Referring Provider: JAN ZHANG 24 HR Interval Summary Free Text/Dictation Patient's condition remains unchanged. Still requiring high-dose sedation as well as fentanyl drip for episodes of severe agitation and drug withdrawal. Patient scheduled for tracheostomy and PEG tube placement today. Next General exam; young man or intubated sedated. Currently in no distress. Exam/Review of Systems Vital Signs Vitals Vital Signs Date Time Temp Pulse Resp B/P Pulse Ox O2 Delivery O2 Flow Rate FiO2 10/20/16 08:00 99.2 73 22 96/59 98 Mechanical Ventilator 10/20/16 05:40 30 Intake and Output 10/19/16 10/19/16 10/20/16 15:00 23:00 07:00 Intake Total 458.5 ml 526.0 ml 624.0 ml Output Total 1075 ml 1100 ml 775 ml Balance -616.5 ml -574.0 ml -151.0 ml Exam HEENT examination; supple neck. Orally intubated. No neck masses. Pupils are midsize reactive to light bilaterally. No lymphadenopathy. Next Chest examination; clear to auscultation bilaterally. S1-S2 audible no murmurs. Right-sided chest tube in place. There is very minimal drainage in the Pleur-evac chamber. Next Abdomen examination; soft, nondistended. No organomegaly. Bowel sounds audible. Extremity examination; no peripheral edema. Also 1+ bilaterally. 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 Results Result Diagram: 10/20/16 0500 10/20/16 0430 Results 24 hrs Laboratory Tests Test 10/20/16 04:30 10/20/16 05:00 Anion Gap 14 Blood Urea Nitrogen 6 L Calcium Level 8.6 Carbon Dioxide Level 28 Chloride Level 105 Creatinine 0.56 L Glucose Level 98 Potassium Level 3.9 Sodium Level 143 Basophils # 0.1 Basophils % 0.5 Blood Morphology Comment Eosinophils # 1.4 H Eosinophils % 11.4 H Hematocrit 36.2 L Hemoglobin 11.9 L Lymphocytes # 1.5 Lymphocytes % 12.1 L Mean Corpuscular Hemoglobin 28.9 L Mean Corpuscular Hemoglobin Concent 33.0 Mean Corpuscular Volume 87.7 Mean Platelet Volume 10.5 H Monocytes # 1.4 H Monocytes % 11.7 H Neutrophils # 8.0 H Neutrophils % 64.3 Nucleated Red Blood Cells # 0.0 Nucleated Red Blood Cells % 0.0 Platelet Count 402 Red Blood Count 4.12 L Red Cell Distribution Width 14.9 H White Blood Count 12.4 #H Medications Medications Current Medications Ondansetron HCl (Zofran Inj) 4 mg Q6H PRN IV NAUSEA AND/OR VOMITING; Start at 18:00 Morphine Sulfate (morphine) 2 mg Q4H PRN IV PAIN LEVEL 7-10 Last administered on 10/17/16 19:41; Admin Dose 2 MG; Start 09/15/16 at 18:00 Haloperidol (Haldol) 5 mg Q6H PRN IM AGITATION Last administered on 10/19/16 17:15; Admin Dose 5 MG; Start 09/18/16 at 11:30 Famotidine (Pepcid Iv) 20 mg BID IV Last administered on 10/19/16 20:50; Admin Dose 20 MG; Start 09/19/16 at 21:00 Metoclopramide HCl 10 mg 10 mg Q12 IV Last administered on 10/19/16 20:50; Admin Dose 10 MG; Start 09/24/16 at 11:30 Midazolam HCl/ Dextrose (Versed/D5W) 50 ml @ 2 mls/hr TITRATE IV Last administered on 10/20/16 05:00; Admin Dose 8 MLS/HR; Start 09/25/16 at 12:00; Status Future hold Acetaminophen (Tylenol Liquid) 650 mg Q4H PRN NGT PAIN AND OR ELEVATED TEMP Last administered on 10/14/16 19:56; Admin Dose 650 MG; Start 09/28/16 at 13:30 Lisinopril (Zestril) 2.5 mg DAILY GTB Last administered on 10/16/16 09:04; Admin Dose 2.5 MG; Start 10/02/16 at 09:00 Collagenase (Santyl) 1 applic DAILY TOP Last administered on 10/18/16 13:10; Admin Dose 1 APPLIC; Start 10/08/16 at 20:00 Nystatin (Nystatin Powder) 1 applic BID TOP Last administered on 10/19/16 20: 51; Admin Dose 1 APPLIC; Start 10/08/16 at 21:00 Collagenase 1 applic 1 applic PRN PRN TOP WOUND CARE Last administered on 07:54; Admin Dose 1 APPLIC; Start 10/08/16 at 17:30 Potassium Chloride/Dextrose/ Sod Cl 1,000 ml @ 50 mls/hr Q20H IV Last administered on 10/20/16 05:37; Admin Dose 50 MLS/HR; Start 10/11/16 at 12:30 Fentanyl/Dextrose (D5W) 100 ml @ 2.5 mls/hr TITRATE IV Last administered on 05:02; Admin Dose 7.5 MLS/HR; Start 10/11/16 at 18:00 Lorazepam (Ativan) 2 mg Q2H PRN IV AGITATION Last administered on 10/20/16 05: 37; Admin Dose 2 MG; Start 10/16/16 at 16:00 Carvedilol (Coreg) 3.125 mg BID GTB Last administered on 10/19/16 20:51; Admin Dose 3.125 MG; Start 10/16/16 at 21:00 ILYA HILL Oct 20, 2016 08:10
[2016-10-20] MEDS: LISINOPRIL 5 MG TAB GTB SCH (09:00)
[2016-10-20] MEDS: COLLAGENASE 30 GM TUBE TOP SCH (09:00)
[2016-10-20] MEDS: FAMOTIDINE 20 MG INJ IV SCH ×2 (09:08→20:24)
[2016-10-20] MEDS: METOCLOPRAMIDE 10 MG INJ IV SCH ×2 (09:08→20:24)
[2016-10-20] MEDS: NYSTATIN 30 GM POWDER BTL TOP SCH ×2 (09:09→20:25)
[2016-10-20] MEDS ORDERED: LIDOCAINE 1%/EPI 30 ML INJ ONE ×3 (09:17→12:40)
[2016-10-20] MEDS ORDERED: LIDOCAINE 1%/EPI (MDV) 20 ML INJ ONE (09:17)
--- NOTE | 2016-10-20 09:46 | CONS ---
Date/Time of Note Date/Time of Note DATE: 10/20/16 TIME: 09:45 Assessment/Plan Assessment/Plan Chief Complaint/Hosp Course assessment/impression - h/o sepsis, septic shock - PNA with parapneumonic effusion. Could be started as CAP, other considerations include aspiration PNA. - h/o recurrent right pleural effusion. s/p diagnostic thoracentesis on 09/22/16. It showed glu=74 pro <2, [id number]. No malignancy on cytology. s/p repeat thoracentesis 10/01/16, no malignancy on cytology. R chest tube placed 10/07/16. 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) - h/o transaminitis, possibly shock liver, improved - h/o drug rash likely d/t pip/tazo, resolving - antimicrobial history: ashlyn (09/19/16-10/04/16, 10/08/16-10/10/16), azithromycin (10/02/16-10/06/16), pip/tazo (09/29/16-10/08/16), Tamiflu (10/02/16-10/08/16), ashlyn - negative results: rapid influenza screen, PPD, legionella antigen, mycoplasma pneumoniae, chlamydia pneumoniae serology, and respiratory viral panel; AFB smear (09/29, 09/30, 10/01, 10/08, 10/13) recommendations: - monitor WBC level - monitor Pt off systemic antibiotics the critical care time I took to care for this Pt today was from 1130 to 1200 Problems: Consultation Date/Type/Reason Admit Date/Time Sep 15, 2016 at 16:54 Initial Consult Date 09/29/16 Type of Consultation: ID Referring Provider: JAN ZHANG 24 HR Interval Summary Subjective hx not possible: pt non-verbal, pt critical, pt critical status Exam/Review of Systems Vital Signs Vitals Vital Signs Date Time Temp Pulse Resp B/P Pulse Ox O2 Delivery O2 Flow Rate FiO2 10/20/16 09:00 74 14 95/65 98 Mechanical Ventilator 10/20/16 08:00 99.2 1/31/17 05:40 30 Intake and Output 10/19/16 10/19/16 10/20/16 15:00 23:00 07:00 Intake Total 458.5 ml 526.0 ml 624.0 ml Output Total 1075 ml 1100 ml 775 ml Balance -616.5 ml -574.0 ml -151.0 ml Exam Constitutional: non-verbal Psych: confusion Head: normocephalic Eyes: other (injected conjunctiva right) ENMT: intubated, nl external ears & nose Respiratory: crackles/rales, other (CT) Cardiovascular: nl pulses, regular rate and rhythm Gastrointestinal: other (GT), soft Extremities: No edema Neurological: confused Skin: nl turgor Results Result Diagram: 10/20/16 0500 10/20/16 0430 Results 24 hrs Laboratory Tests Test 10/20/16 04:30 10/20/16 05:00 Anion Gap 14 Blood Urea Nitrogen 6 L Calcium Level 8.6 Carbon Dioxide Level 28 Chloride Level 105 Creatinine 0.56 L Glucose Level 98 Potassium Level 3.9 Sodium Level 143 Basophils # 0.1 Basophils % 0.5 Blood Morphology Comment Eosinophils # 1.4 H Eosinophils % 11.4 H Hematocrit 36.2 L Hemoglobin 11.9 L Lymphocytes # 1.5 Lymphocytes % 12.1 L Mean Corpuscular Hemoglobin 28.9 L Mean Corpuscular Hemoglobin Concent 33.0 Mean Corpuscular Volume 87.7 Mean Platelet Volume 10.5 H Monocytes # 1.4 H Monocytes % 11.7 H Neutrophils # 8.0 H Neutrophils % 64.3 Nucleated Red Blood Cells # 0.0 Nucleated Red Blood Cells % 0.0 Platelet Count 402 Red Blood Count 4.12 L Red Cell Distribution Width 14.9 H White Blood Count 12.4 #H Medications Medications Current Medications Ondansetron HCl (Zofran Inj) 4 mg Q6H PRN IV NAUSEA AND/OR VOMITING; Start at 18:00 Morphine Sulfate (morphine) 2 mg Q4H PRN IV PAIN LEVEL 7-10 Last administered on 10/17/16 19:41; Admin Dose 2 MG; Start 09/15/16 at 18:00 Haloperidol (Haldol) 5 mg Q6H PRN IM AGITATION Last administered on 10/19/16 17:15; Admin Dose 5 MG; Start 09/18/16 at 11:30 Famotidine (Pepcid Iv) 20 mg BID IV Last administered on 10/20/16 09:08; Admin Dose 20 MG; Start 09/19/16 at 21:00 Metoclopramide HCl 10 mg 10 mg Q12 IV Last administered on 10/20/16 09:08; Admin Dose 10 MG; Start 09/24/16 at 11:30 Midazolam HCl/ Dextrose (Versed/D5W) 50 ml @ 2 mls/hr TITRATE IV Last administered on 10/20/16 05:00; Admin Dose 8 MLS/HR; Start 09/25/16 at 12:00; Status Future hold Acetaminophen (Tylenol Liquid) 650 mg Q4H PRN NGT PAIN AND OR ELEVATED TEMP Last administered on 10/14/16 19:56; Admin Dose 650 MG; Start 09/28/16 at 13:30 Lisinopril (Zestril) 2.5 mg DAILY GTB Last administered on 10/16/16 09:04; Admin Dose 2.5 MG; Start 10/02/16 at 09:00 Collagenase (Santyl) 1 applic DAILY TOP Last administered on 10/18/16 13:10; Admin Dose 1 APPLIC; Start 10/08/16 at 20:00 Nystatin (Nystatin Powder) 1 applic BID TOP Last administered on 10/20/16 09: 09; Admin Dose 1 APPLIC; Start 10/08/16 at 21:00 Collagenase 1 applic 1 applic PRN PRN TOP WOUND CARE Last administered on 07:54; Admin Dose 1 APPLIC; Start 10/08/16 at 17:30 Potassium Chloride/Dextrose/ Sod Cl 1,000 ml @ 50 mls/hr Q20H IV Last administered on 10/20/16 05:37; Admin Dose 50 MLS/HR; Start 10/11/16 at 12:30 Fentanyl/Dextrose (D5W) 100 ml @ 2.5 mls/hr TITRATE IV Last administered on 05:02; Admin Dose 7.5 MLS/HR; Start 10/11/16 at 18:00 Lorazepam (Ativan) 2 mg Q2H PRN IV AGITATION Last administered on 10/20/16 05: 37; Admin Dose 2 MG; Start 10/16/16 at 16:00 Carvedilol (Coreg) 3.125 mg BID GTB Last administered on 10/19/16t 20:51; Admin Dose 3.125 MG; Start 10/16/16 at 21:00 MIGUEL ERNST M.D. Oct 20, 2016 09:46
[2016-10-20] MEDS ORDERED: PROPOFOL 20 ML ONE (10:44)
[2016-10-20] MEDS ORDERED: CEFAZOLIN 2 GM/50 ML (PMX) 50 ML IVPB ONE ×3 (11:00)
[2016-10-20] MEDS ORDERED: FENTAnyl 50 MCG/ML VIAL ONE (12:01)
[2016-10-20] MEDS ORDERED: MIDAZOLAM 1 MG/ML 2 ML INJ ONE (12:01)
[2016-10-20] MEDS ORDERED: LIDOCAINE 1%/EPI 30 ML INJ INJ ONE (12:45)
--- NOTE | 2016-10-20 14:27 | CONS ---
Date/Time of Note Date/Time of Note DATE: 10/20/16 TIME: 14:26 Assessment/Plan Assessment/Plan Additional Assessment/Plan Respiratory failure Pulmonary emboli Acute decompensated systolic congestive heart failure Severe biventricular cardiomyopathy with left ventricular ejection fraction 20% Pleural effusion -Patient status post tracheostomy. Patient with history of pulmonary emboli, would restart anticoagulation if no contraindication, continue beta beatriz and HILDA inhibitor for blood pressure and renal function tolerates. Consultation Date/Type/Reason Admit Date/Time Sep 15, 2016 at 16:54 Initial Consult Date 09/29/16 Type of Consultation: cv Referring Provider: JAN ZHANG 24 HR Interval Summary Free Text/Dictation Patient status post tracheostomy and PEG placement Exam/Review of Systems Vital Signs Vitals Vital Signs Date Time Temp Pulse Resp B/P Pulse Ox O2 Delivery O2 Flow Rate FiO2 10/20/16 13:24 98.2 10/20/16 12:00 114 10/20/16 09:00 14 95/65 98 Mechanical Ventilator 10/20/16 08:43 30 Intake and Output 10/19/16 10/19/16 10/20/16 15:00 23:00 07:00 Intake Total 458.5 ml 526.0 ml 624.0 ml Output Total 1075 ml 1100 ml 775 ml Balance -616.5 ml -574.0 ml -151.0 ml Exam Sedated, no apparent distress Head: normocephalic Neck: other (tracheostomy) Respiratory: other (course breath sounds bilaterally, no wheezing) Cardiovascular: other (S1-S2 heard), regular rate and rhythm Gastrointestinal: bowel sounds, non-tender, soft Extremities: edema (mild) Results Result Diagram: 10/20/16 0500 10/20/16 0430 Results 24 hrs Laboratory Tests Test 10/20/16 04:30 10/20/16 05:00 Anion Gap 14 Blood Urea Nitrogen 6 L Calcium Level 8.6 Carbon Dioxide Level 28 Chloride Level 105 Creatinine 0.56 L Glucose Level 98 Potassium Level 3.9 Sodium Level 143 Basophils # 0.1 Basophils % 0.5 Blood Morphology Comment Eosinophils # 1.4 H Eosinophils % 11.4 H Hematocrit 36.2 L Hemoglobin 11.9 L Lymphocytes # 1.5 Lymphocytes % 12.1 L Mean Corpuscular Hemoglobin 28.9 L Mean Corpuscular Hemoglobin Concent 33.0 Mean Corpuscular Volume 87.7 Mean Platelet Volume 10.5 H Monocytes # 1.4 H Monocytes % 11.7 H Neutrophils # 8.0 H Neutrophils % 64.3 Nucleated Red Blood Cells # 0.0 Nucleated Red Blood Cells % 0.0 Platelet Count 402 Red Blood Count 4.12 L Red Cell Distribution Width 14.9 H White Blood Count 12.4 #H Medications Medications Current Medications Ondansetron HCl (Zofran Inj) 4 mg Q6H PRN IV NAUSEA AND/OR VOMITING; Start at 18:00 Morphine Sulfate (morphine) 2 mg Q4H PRN IV PAIN LEVEL 7-10 Last administered on 10/17/16 19:41; Admin Dose 2 MG; Start 09/15/16 at 18:00 Haloperidol (Haldol) 5 mg Q6H PRN IM AGITATION Last administered on 10/19/16 17:15; Admin Dose 5 MG; Start 09/18/16 at 11:30 Famotidine (Pepcid Iv) 20 mg BID IV Last administered on 10/20/16 09:08; Admin Dose 20 MG; Start 09/19/16 at 21:00 Metoclopramide HCl 10 mg 10 mg Q12 IV Last administered on 10/20/16 09:08; Admin Dose 10 MG; Start 09/24/16 at 11:30 Midazolam HCl/ Dextrose (Versed/D5W) 50 ml @ 2 mls/hr TITRATE IV Last administered on 10/20/16 13:42; Admin Dose 8 MLS/HR; Start 09/25/16 at 12:00; Status Future hold Acetaminophen (Tylenol Liquid) 650 mg Q4H PRN NGT PAIN AND OR ELEVATED TEMP Last administered on 10/14/16 19:56; Admin Dose 650 MG; Start 09/28/16 at 13:30 Lisinopril (Zestril) 2.5 mg DAILY GTB Last administered on 10/16/16 09:04; Admin Dose 2.5 MG; Start 10/02/16 at 09:00 Collagenase (Santyl) 1 applic DAILY TOP Last administered on 10/18/16 13:10; Admin Dose 1 APPLIC; Start 10/08/16 at 20:00 Nystatin (Nystatin Powder) 1 applic BID TOP Last administered on 10/20/16 09: 09; Admin Dose 1 APPLIC; Start 10/08/16 at 21:00 Collagenase 1 applic 1 applic PRN PRN TOP WOUND CARE Last administered on 07:54; Admin Dose 1 APPLIC; Start 10/08/16 at 17:30 Potassium Chloride/Dextrose/ Sod Cl 1,000 ml @ 50 mls/hr Q20H IV Last administered on 10/20/16 05:37; Admin Dose 50 MLS/HR; Start 10/11/16 at 12:30 Fentanyl/Dextrose (D5W) 100 ml @ 2.5 mls/hr TITRATE IV Last administered on 05:02; Admin Dose 7.5 MLS/HR; Start 10/11/16 at 18:00 Lorazepam (Ativan) 2 mg Q2H PRN IV AGITATION Last administered on 10/20/16 13: 47; Admin Dose 2 MG; Start 10/16/16 at 16:00 Carvedilol (Coreg) 3.125 mg BID GTB Last administered on 10/19/16 20:51; Admin Dose 3.125 MG; Start 10/16/16 at 21:00 Nikolay Luna DO Oct 20, 2016 14:27
--- NOTE | 2016-10-20 14:31 | GILP ---
DATE OF PROCEDURE: PROCEDURE PERFORMED: Percutaneous . INDICATION: A 40-year-old male undergoing this procedure for replacement of a G-tube. The patient has got cardiomyopathy with EF of 20%. He also moody encephalopathy. INFORMED CONSENT: The risk of the procedure, related and unrelated complications, anesthetic risks, alternatives discussed. Informed consent was obtained. The procedure was done at bedside. DESCRIPTION OF PROCEDURE: The patient was placed in the supine position. After obtaining sedation, scope was passed with much ease into the esophagus, advanced further down into stomach and duodenum . There was no evidence of obstruction. By transillumination and digital palpation technique, appr opriate site was chosen on anterior abdominal wall. The site was sterilized with chlorhexidine solu tion, 2% Xylocaine instilled by safe method. A small incision was made. Through that incision, tro car stylet was passed into the stomach. Stylet was removed through hollow tip of the catheter. Ins ertion wire was passed and the entire procedure was completed by modified Ponsky technique. The pat ient was rescoped. The position of the internal bumper confirmed. External bumper secured. The pa tient tolerated the procedure very well. He was given Ancef 2 g IV piggyback. IMPRESSION: Percutaneous endoscopic gastrostomy done successfully without any complication. PLAN: Resume feeding at 6 p.m. Abdominal binder all the time. Dictated By: ELMO MANRIQUEZ/MARIA ELENA Conf#: [id number] DID#: [id number]
--- NOTE | 2016-10-20 14:40 | OPR ---
DATE OF OPERATION: PREOPERATIVE DIAGNOSIS: Respiratory failure. POSTOPERATIVE DIAGNOSIS: Respiratory failure. OPERATION PERFORMED: Tracheostomy. SURGEON: Eleno Marino MD ANESTHESIA: General. CONSENT: Risks, benefits, complications, alternative therapies explained to the patient and the [facility] hemal, consent obtained. OPERATIVE TECHNIQUE: The patient was placed in supine position, prepped and draped in usual sterile fashion, 1% lidocaine was used throughout the operation for local anesthesia. I made a 1 cm incisi on 1 fingerbreadth superior to the sternal notch. Incision was taken down to the subcutaneous tissu e which was then opened using electrocautery. Access was gained into the trachea. Guidewire was ad vanced through without any difficulties. The trachea and the subcutaneous tissues were enlarged usi ng progressively larger dilators. Endotracheal tube was removed, 8 cuffed tracheostomy tube was pl aced into the trachea, secured to skin using 4-0 nylon sutures and a trach tie. Patient tolerated p rocedure well. Dictated By: ELENO YAN/MARIA ELENA Conf#: [id number] DID#: [id number]
--- NOTE | 2016-10-20 17:18 | PN ---
Date/Time of Note Date/Time of Note DATE: 10/20/16 TIME: 17:15 Assessment/Plan VTE Prophylaxis VTE Prophylaxis Intervention: LMWH, SCD's Lines/Catheters IV Catheter Type (from Nrs): Central Line Central line still needed: Yes Urinary Cath still in place: Yes Reason Cath still needed: urinary retention Assessment/Plan Chief Complaint/Hosp Course ASSESSMENT AND PLAN: - Acute respiratory failure patient, failed extubation. Continue ventilator support. Dr. Miles foster is following the patient from pulmonology consultation. - Right-sided pneumonia with complicated parapneumonic effusion, status post thoracentesis, s/p R chest tube placement. Continue antibiotics per Dr. Shi foster following from Infectious Disease standpoint. - Acute pulmonary emboli. Continue patient on Lovenox. 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 Dr. Luna is following from cardiology standpoint. - Encephalopathy, likely toxic metabolic, resolving. Continue to monitor. - Sepsis secondary to #2, resolved. - Status post tracheostomy by Dr. Marino on 10/20. - Status post G-tube placement by Dr. Galarza on 10/20 Continue Pepcid for peptic ulcer disease prophylaxis. Further recommendations based on clinical course. Plan of care discussed with Dr. Patel. Problems: Subjective 24 Hr Interval Summary Free Text/Dictation Patient is status post tracheostomy and G-tube placement, currently sedated on Versed drip, no fever nausea vomiting per RN, vital signs stable Exam/Review of Systems Vital Signs Vitals Vital Signs Date Time Temp Pulse Resp B/P Pulse Ox O2 Delivery O2 Flow Rate FiO2 10/20/16 16:30 128 19 145/98 100 10/20/16 16:00 98.9 10/20/16 15:30 30 10/20/16 14:00 Mechanical Ventilator Intake and Output 10/19/16 10/19/16 10/20/16 15:00 23:00 07:00 Intake Total 458.5 ml 526.0 ml 624.0 ml Output Total 1075 ml 1100 ml 775 ml Balance -616.5 ml -574.0 ml -151.0 ml Exam GENERAL: Well-developed, well-nourished male, orally intubated, on vent support. LUNGS: Diminished with scattered rhonchi bilaterally. HEART: Normal S1, S2. No murmurs, gallops, clicks, rubs noted. ABDOMEN: Round, soft, nondistended, nontender. Bowel sounds present. EXTREMITIES: No edema, clubbing, cyanosis. Pulses equal bilaterally 2+. SKIN: There is no rash. NEUROLOGIC: Sedated Results Result Diagram: 10/20/16 0500 10/20/16 0430 Results 24 hrs Laboratory Tests Test 10/20/16 04:30 10/20/16 05:00 Anion Gap 14 Blood Urea Nitrogen 6 L Calcium Level 8.6 Carbon Dioxide Level 28 Chloride Level 105 Creatinine 0.56 L Glucose Level 98 Potassium Level 3.9 Sodium Level 143 Basophils # 0.1 Basophils % 0.5 Blood Morphology Comment Eosinophils # 1.4 H Eosinophils % 11.4 H Hematocrit 36.2 L Hemoglobin 11.9 L Lymphocytes # 1.5 Lymphocytes % 12.1 L Mean Corpuscular Hemoglobin 28.9 L Mean Corpuscular Hemoglobin Concent 33.0 Mean Corpuscular Volume 87.7 Mean Platelet Volume 10.5 H Monocytes # 1.4 H Monocytes % 11.7 H Neutrophils # 8.0 H Neutrophils % 64.3 Nucleated Red Blood Cells # 0.0 Nucleated Red Blood Cells % 0.0 Platelet Count 402 Red Blood Count 4.12 L Red Cell Distribution Width 14.9 H White Blood Count 12.4 #H Medications Medications Current Medications Ondansetron HCl (Zofran Inj) 4 mg Q6H PRN IV NAUSEA AND/OR VOMITING; Start at 18:00 Morphine Sulfate (morphine) 2 mg Q4H PRN IV PAIN LEVEL 7-10 Last administered on 10/17/16 19:41; Admin Dose 2 MG; Start 09/15/16 at 18:00 Haloperidol (Haldol) 5 mg Q6H PRN IM AGITATION Last administered on 10/19/16 17:15; Admin Dose 5 MG; Start 09/18/16 at 11:30 Famotidine (Pepcid Iv) 20 mg BID IV Last administered on 10/20/16 09:08; Admin Dose 20 MG; Start 09/19/16 at 21:00 Metoclopramide HCl 10 mg 10 mg Q12 IV Last administered on 10/20/16 09:08; Admin Dose 10 MG; Start 09/24/16 at 11:30 Midazolam HCl/ Dextrose (Versed/D5W) 50 ml @ 2 mls/hr TITRATE IV Last administered on 10/20/16 13:42; Admin Dose 8 MLS/HR; Start 09/25/16 at 12:00; Status Future hold Acetaminophen (Tylenol Liquid) 650 mg Q4H PRN NGT PAIN AND OR ELEVATED TEMP Last administered on 10/14/16 19:56; Admin Dose 650 MG; Start 09/28/16 at 13:30 Lisinopril (Zestril) 2.5 mg DAILY GTB Last administered on 10/16/16 09:04; Admin Dose 2.5 MG; Start 10/02/16 at 09:00 Collagenase (Santyl) 1 applic DAILY TOP Last administered on 10/18/16 13:10; Admin Dose 1 APPLIC; Start 10/08/16 at 20:00 Nystatin (Nystatin Powder) 1 applic BID TOP Last administered on 10/20/16 09: 09; Admin Dose 1 APPLIC; Start 10/08/16 at 21:00 Collagenase 1 applic 1 applic PRN PRN TOP WOUND CARE Last administered on 07:54; Admin Dose 1 APPLIC; Start 10/08/16 at 17:30 Potassium Chloride/Dextrose/ Sod Cl 1,000 ml @ 50 mls/hr Q20H IV Last administered on 10/20/16 05:37; Admin Dose 50 MLS/HR; Start 10/11/16 at 12:30 Fentanyl/Dextrose (D5W) 100 ml @ 2.5 mls/hr TITRATE IV Last administered on 16:38; Admin Dose 10 MLS/HR; Start 10/11/16 at 18:00 Lorazepam (Ativan) 2 mg Q2H PRN IV AGITATION Last administered on 10/20/16 16: 29; Admin Dose 2 MG; Start 10/16/16 at 16:00 Carvedilol (Coreg) 3.125 mg BID GTB Last administered on 10/19/16 20:51; Admin Dose 3.125 MG; Start 10/16/16 at 21:00 JAN ZHANG Oct 20, 2016 17:18
[2016-10-21] VITALS (54 sets, daily range): BP systolic 86–155; BP diastolic 50–107; PULSE 62–133; RESP 0–27
[2016-10-21] MEDS: MIDAZOLAM 50 MG in DEXTROSE 5% 40 ML IV SCH ×3 (01:59→17:47)
[2016-10-21] MEDS: D5-NS + KCL 20 MEQ 1,000 ML IV SCH (02:01)
[2016-10-21] MEDS: FENTAnyl 1,000 MCG in DEXTROSE 5% 80 ML IV SCH ×2 (03:30→16:19)
[2016-10-21] MEDS: ALTEPLASE (CATHFLO) 2 MG INJ CATHETER PRN (05:11)
[2016-10-21 06:05] LABS: BASOPHILS % 0.1 % (0.0-2.0); EOSINOPHILS # 0.6 10^3/ul (0.0-0.5); HEMATOCRIT 35.9 % (42.0-52.0); HEMOGLOBIN 11.9 g/dl (14.0-18.0); LYMPHOCYTES # 1.1 10^3/ul (0.8-2.9); LYMPHOCYTES % 7.5 % (15.0-51.0); MEAN CORPUSCULAR HEMOGLOBIN 28.7 pg (29.0-33.0); MEAN CORPUSCULAR HGB CONC 33.1 g/dl (32.0-37.0); MEAN CORPUSCULAR VOLUME 86.7 fl (82.0-101.0); MEAN PLATELET VOLUME 9.8 fl (7.4-10.4); MONOCYTE # 1.9 10^3/ul (0.3-0.9); MONOCYTES % 13.1 % (0.0-11.0); NEUTROPHIL # 10.7 10^3/ul (1.6-7.5); NEUTROPHILS % 75.3 % (39.0-77.0); PLATELET COUNT 390 10^3/UL (140-440); RED BLOOD COUNT 4.14 10^6/ul (4.70-6.10); RED CELL DISTRIBUTION WIDTH 14.9 % (11.5-14.5); UNCORRECTED WBC 14.2 10^3/ul (4.8-10.8); WHITE BLOOD COUNT 14.2 10^3/ul (4.8-10.8)
[2016-10-21 06:11] LABS: ALBUMIN 2.9 g/dl (3.3-4.9)
[2016-10-21 06:14] LABS: ALBUMIN/GLOBULIN RATIO 0.78; BILIRUBIN,INDIRECT 0.5 mg/dl (0-1.1); BILIRUBIN,TOTAL 0.5 mg/dl (0.2-1.3); CREATININE 0.54 mg/dl (0.61-1.24); TOTAL PROTEIN 6.6 g/dl (6.1-8.1)
[2016-10-21 06:15] LABS: CALCIUM 8.6 mg/dl (8.4-10.2)
[2016-10-21 06:19] LABS: CONDITION 1; LH ANALYZER COMMENTS 1
--- NOTE | 2016-10-21 07:59 | PN ---
Date/Time of Note Date/Time of Note DATE: 10/21/16 TIME: 07:58 Assessment/Plan Lines/Catheters IV Catheter Type (from Nrsg): Central Line Tang in Place (from Nrsg): Yes Assessment/Plan Chief Complaint/Hosp Course IMPRESSION 1. Pulmonary embolism. 2. Pneumonia. 3 Pleural effusion RECOMMENDATIONS: SP CT placement SP Trach will continue vent support trach care Problems: Subjective 24 Hr Interval Summary Constitutional: improved Pain Control: mild Exam/Review of Systems Vital Signs Vitals Vital Signs Date Time Temp Pulse Resp B/P Pulse Ox O2 Delivery O2 Flow Rate FiO2 10/21/16 06:30 125 15 134/107 100 Mechanical Ventilator 10/21/16 05:30 30 10/21/16 04:00 100.0 Intake and Output 10/20/16 10/20/16 10/21/16 15:00 23:00 07:00 Intake Total 125.0 ml 510 ml 630 ml Output Total 692 ml 520 ml 460 ml Balance -567.0 ml -10 ml 170 ml Exam Neck: non-tender, supple Respiratory: clear to auscultation, normal air movement Cardiovascular: nl pulses, regular rate and rhythm Gastrointestinal: nl liver, spleen, non-tender, soft Results Result Diagram: 10/21/16 0537 10/21/16 0537 YOUNG HAY MD Oct 21, 2016 07:59
[2016-10-21] MEDS: FAMOTIDINE 20 MG INJ IV SCH ×2 (08:42→20:02)
[2016-10-21] MEDS: METOCLOPRAMIDE 10 MG INJ IV SCH ×2 (08:42→20:02)
[2016-10-21] MEDS: NYSTATIN 30 GM POWDER BTL TOP SCH ×2 (08:43→20:02)
[2016-10-21] MEDS: COLLAGENASE 30 GM TUBE TOP SCH (08:43)
[2016-10-21] MEDS: LISINOPRIL 5 MG TAB GTB SCH (08:43)
--- NOTE | 2016-10-21 09:07 | CONS ---
Date/Time of Note Date/Time of Note DATE: 10/21/16 TIME: 09:06 Assessment/Plan Assessment/Plan Chief Complaint/Hosp Course assessment/impression - h/o sepsis, septic shock - probable post-op fever and leukocytosis - s/p trach and PEG placement - PNA with parapneumonic effusion. Could be started as CAP, other considerations include aspiration PNA. - h/o recurrent right pleural effusion. s/p diagnostic thoracentesis on 09/22/16. 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 No malignancy on cytology. s/p repeat thoracentesis 10/01/16, no malignancy on cytology. R chest tube placed 10/07/16. 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) - h/o transaminitis, possibly shock liver, improved - h/o drug rash likely d/t pip/tazo, resolving - antimicrobial history: ashlyn (09/19/16-10/04/16, 10/08/16-10/10/16), azithromycin (10/02/16-10/06/16), pip/tazo (09/29/16-10/08/16), Tamiflu (10/02/16-10/08/16), ashlyn - negative results: rapid influenza screen, PPD, legionella antigen, mycoplasma pneumoniae, chlamydia pneumoniae serology, and respiratory viral panel; AFB smear (09/29, 09/30, 10/01, 10/08, 10/13) recommendations: - check VICKY and urine culture for surveillance - monitor temp and WBC closely - management d/w Pt's RN the critical care time I took to care for this Pt today was from [id number] to [id number] Problems: Consultation Date/Type/Reason Admit Date/Time Sep 15, 2016 at 16:54 Initial Consult Date 09/29/16 Type of Consultation: ID Referring Provider: JAN ZHANG 24 HR Interval Summary Free Text/Dictation had trach and PEG placed Subjective hx not possible: pt non-verbal, pt critical, pt critical status Exam/Review of Systems Vital Signs Vitals Vital Signs Date Time Temp Pulse Resp B/P Pulse Ox O2 Delivery O2 Flow Rate FiO2 10/21/16 06:30 125 15 134/107 100 Mechanical Ventilator 10/21/16 05:30 30 10/21/16 04:00 100.0 Intake and Output 10/20/16 10/20/16 10/21/16 15:00 23:00 07:00 Intake Total 125.0 ml 510 ml 630 ml Output Total 692 ml 520 ml 460 ml Balance -567.0 ml -10 ml 170 ml Exam Constitutional: non-verbal, No distress Psych: confusion Head: atraumatic, normocephalic Eyes: nl conjunctiva, nl lids ENMT: nl external ears & nose Neck: other (trach) Respiratory: diminished breath sounds, other (CT) Cardiovascular: nl pulses, regular rate and rhythm Gastrointestinal: non-tender, other (PEG), soft Genitourinary - Male: nl penis, nl scrotum, other (FC) Musculoskeletal: nl extremities to inspection Extremities: No edema Neurological: unresponsive Skin: nl turgor, No rash or lesions Results Result Diagram: 10/21/1637 10/21/1637 Results 24 hrs Laboratory Tests Test 10/21/16 05:37 Alanine Aminotransferase (ALT/SGPT) 35 Albumin 2.9 L Albumin/Globulin Ratio 0.78 Alkaline Phosphatase 170 H Anion Gap 11 Aspartate Amino Transf (AST/SGOT) 27 Basophils # 0.0 Basophils % 0.1 Blood Morphology Comment Blood Urea Nitrogen 5 L Calcium Level 8.6 Carbon Dioxide Level 30 Chloride Level 101 Creatinine 0.54 L Direct Bilirubin 0.00 Eosinophils # 0.6 H Eosinophils % 4.0 Globulin 3.70 H Glucose Level 109 Hematocrit 35.9 L Hemoglobin 11.9 L Indirect Bilirubin 0.5 Lymphocytes # 1.1 Lymphocytes % 7.5 L Mean Corpuscular Hemoglobin 28.7 L Mean Corpuscular Hemoglobin Concent 33.1 Mean Corpuscular Volume 86.7 Mean Platelet Volume 9.8 Monocytes # 1.9 H Monocytes % 13.1 H Neutrophils # 10.7 H Neutrophils % 75.3 Nucleated Red Blood Cells # 0.0 Nucleated Red Blood Cells % 0.0 Platelet Count 390 Potassium Level 4.0 Red Blood Count 4.14 L Red Cell Distribution Width 14.9 H Sodium Level 138 Total Bilirubin 0.5 Total Protein 6.6 White Blood Count 14.2 H Medications Medications Current Medications Ondansetron HCl (Zofran Inj) 4 mg Q6H PRN IV NAUSEA AND/OR VOMITING; Start at 18:00 Morphine Sulfate (morphine) 2 mg Q4H PRN IV PAIN LEVEL 7-10 Last administered on 10/17/16 19:41; Admin Dose 2 MG; Start 09/15/16 at 18:00 Haloperidol (Haldol) 5 mg Q6H PRN IM AGITATION Last administered on 10/19/16 17:15; Admin Dose 5 MG; Start 09/18/16 at 11:30 Famotidine (Pepcid Iv) 20 mg BID IV Last administered on 10/21/16 08:42; Admin Dose 20 MG; Start 09/19/16 at 21:00 Metoclopramide HCl 10 mg 10 mg Q12 IV Last administered on 10/21/16 08:42; Admin Dose 10 MG; Start 09/24/16 at 11:30 Midazolam HCl/ Dextrose (Versed/D5W) 50 ml @ 2 mls/hr TITRATE IV Last administered on 10/21/16 08:41; Admin Dose 10 MLS/HR; Start 09/25/16 at 12:00; Status Future hold Acetaminophen (Tylenol Liquid) 650 mg Q4H PRN NGT PAIN AND OR ELEVATED TEMP Last administered on 10/14/16 19:56; Admin Dose 650 MG; Start 09/28/16 at 13:30 Lisinopril (Zestril) 2.5 mg DAILY GTB Last administered on 10/21/16 08:43; Admin Dose 2.5 MG; Start 10/02/16 at 09:00 Collagenase (Santyl) 1 applic DAILY TOP Last administered on 10/21/16 08:43; Admin Dose 1 APPLIC; Start 10/08/16 at 20:00 Nystatin (Nystatin Powder) 1 applic BID TOP Last administered on 10/21/16 08:43 ; Admin Dose 1 APPLIC; Start 10/08/16 at 21:00 Collagenase 1 applic 1 applic PRN PRN TOP WOUND CARE Last administered on 07:54; Admin Dose 1 APPLIC; Start 10/08/16 at 17:30 Potassium Chloride/Dextrose/ Sod Cl 1,000 ml @ 50 mls/hr Q20H IV Last administered on 10/21/16 02:01; Admin Dose 50 MLS/HR; Start 10/11/16 at 12:30 Fentanyl/Dextrose (D5W) 100 ml @ 2.5 mls/hr TITRATE IV Last administered on 03:30; Admin Dose 10 MLS/HR; Start 10/11/16 at 18:00 Lorazepam (Ativan) 2 mg Q2H PRN IV AGITATION Last administered on 10/20/16 16: 29; Admin Dose 2 MG; Start 10/16/16 at 16:00 Carvedilol (Coreg) 3.125 mg BID GTB Last administered on 10/21/16 08:44; Admin Dose 3.125 MG; Start 10/16/16 at 21:00 MIGUEL ERNST M.D. Oct 21, 2016 09:07
--- NOTE | 2016-10-21 10:14 | CONS ---
Date/Time of Note Date/Time of Note DATE: 10/21/16 TIME: 10:10 Assessment/Plan Assessment/Plan Additional Assessment/Plan Assessment and recommendations; 1. Patient admitted with right-sided pneumonia underwent VATS procedure as well as chest tube placement. 2. Unable to be weaned off from mechanical ventilation due to severe drug withdrawal. 3. Status post tracheostomy and PEG tube placement. 4. Chest tube still draining about 150 mL of fluid per day therefore it cannot be removed at this time. 5. History of hypertension which is currently well controlled. Continue current treatment. Wean off Versed and fentanyl drips. Start the patient on fentanyl patch 50 mcg/h and methadone 10 mg every 6 hours. The patient is off continuous IV sedation he can be transferred to rehab facility. Consultation Date/Type/Reason Admit Date/Time Sep 15, 2016 at 16:54 Initial Consult Date 09/29/16 Type of Consultation: ID Referring Provider: JAN ZHANG 24 HR Interval Summary Free Text/Dictation Patient's condition is stable. Underwent tracheostomy and PEG tube placement which were both uneventful. Patient is currently sedated on mechanical ventilation via tracheostomy. Currently in no distress. Exam/Review of Systems Vital Signs Vitals Vital Signs Date Time Temp Pulse Resp B/P Pulse Ox O2 Delivery O2 Flow Rate FiO2 10/21/16 10:00 75 14 89/50 98 10/21/16 09:00 Mechanical Ventilator 10/21/16 08:00 30 10/21/16 08:00 99.8 Intake and Output 10/20/16 10/20/16 10/21/16 15:00 23:00 07:00 Intake Total 125.0 ml 510 ml 630 ml Output Total 692 ml 520 ml 460 ml Balance -567.0 ml -10 ml 170 ml Exam H EENT examination; supple neck, tracheostomy in place with clean insertion site. No neck masses. No thyromegaly. Pupils are midsize reactive to light. Next Chest examination; clear to auscultation bilaterally. Right-sided chest tube in place. Draining about 100-150 mL of serous fluid per day. S1-S2 audible, no murmurs. Regular rate and rhythm. Abdomen examination; soft, nondistended. Bowel sounds audible. PEG tube in place. No organomegaly. Extremity examination; no peripheral edema. Pulses 2+ bilaterally. Next COMMUNICATIONS SCIENTIST examination; patient is sedated. Next Ventilator settings are AC of 16, tidal volume of 500, 30% FiO2, PEEP of 5. Results Result Diagram: 10/21/16 0537 10/21/1637 Results 24 hrs Laboratory Tests Test 10/21/16 05:37 Alanine Aminotransferase (ALT/SGPT) 35 Albumin 2.9 L Albumin/Globulin Ratio 0.78 Alkaline Phosphatase 170 H Anion Gap 11 Aspartate Amino Transf (AST/SGOT) 27 Basophils # 0.0 Basophils % 0.1 Blood Morphology Comment Blood Urea Nitrogen 5 L Calcium Level 8.6 Carbon Dioxide Level 30 Chloride Level 101 Creatinine 0.54 L Direct Bilirubin 0.00 Eosinophils # 0.6 H Eosinophils % 4.0 Globulin 3.70 H Glucose Level 109 Hematocrit 35.9 L Hemoglobin 11.9 L Indirect Bilirubin 0.5 Lymphocytes # 1.1 Lymphocytes % 7.5 L Mean Corpuscular Hemoglobin 28.7 L Mean Corpuscular Hemoglobin Concent 33.1 Mean Corpuscular Volume 86.7 Mean Platelet Volume 9.8 Monocytes # 1.9 H Monocytes % 13.1 H Neutrophils # 10.7 H Neutrophils % 75.3 Nucleated Red Blood Cells # 0.0 Nucleated Red Blood Cells % 0.0 Platelet Count 390 Potassium Level 4.0 Red Blood Count 4.14 L Red Cell Distribution Width 14.9 H Sodium Level 138 Total Bilirubin 0.5 Total Protein 6.6 White Blood Count 14.2 H Medications Medications Current Medications Ondansetron HCl (Zofran Inj) 4 mg Q6H PRN IV NAUSEA AND/OR VOMITING; Start at 18:00 Morphine Sulfate (morphine) 2 mg Q4H PRN IV PAIN LEVEL 7-10 Last administered on 10/17/16 19:41; Admin Dose 2 MG; Start 09/15/16 at 18:00 Haloperidol (Haldol) 5 mg Q6H PRN IM AGITATION Last administered on 10/19/16 17:15; Admin Dose 5 MG; Start 09/18/16 at 11:30 Famotidine (Pepcid Iv) 20 mg BID IV Last administered on 10/21/16 08:42; Admin Dose 20 MG; Start 09/19/16 at 21:00 Metoclopramide HCl 10 mg 10 mg Q12 IV Last administered on 10/21/16 08:42; Admin Dose 10 MG; Start 09/24/16 at 11:30 Midazolam HCl/ Dextrose (Versed/D5W) 50 ml @ 2 mls/hr TITRATE IV Last administered on 10/21/16 08:41; Admin Dose 10 MLS/HR; Start 09/25/16 at 12:00; Status Future hold Acetaminophen (Tylenol Liquid) 650 mg Q4H PRN NGT PAIN AND OR ELEVATED TEMP Last administered on 10/14/16 19:56; Admin Dose 650 MG; Start 09/28/16 at 13:30 Lisinopril (Zestril) 2.5 mg DAILY GTB Last administered on 10/21/16 08:43; Admin Dose 2.5 MG; Start 10/02/16 at 09:00 Collagenase (Santyl) 1 applic DAILY TOP Last administered on 10/21/16 08:43; Admin Dose 1 APPLIC; Start 10/08/16 at 20:00 Nystatin (Nystatin Powder) 1 applic BID TOP Last administered on 10/21/16 08:43 ; Admin Dose 1 APPLIC; Start 10/08/16 at 21:00 Collagenase 1 applic 1 applic PRN PRN TOP WOUND CARE Last administered on 07:54; Admin Dose 1 APPLIC; Start 10/08/16 at 17:30 Potassium Chloride/Dextrose/ Sod Cl 1,000 ml @ 50 mls/hr Q20H IV Last administered on 10/21/16 02:01; Admin Dose 50 MLS/HR; Start 10/11/16 at 12:30 Fentanyl/Dextrose (D5W) 100 ml @ 2.5 mls/hr TITRATE IV Last administered on 03:30; Admin Dose 10 MLS/HR; Start 10/11/16 at 18:00 Lorazepam (Ativan) 2 mg Q2H PRN IV AGITATION Last administered on 10/20/16 16: 29; Admin Dose 2 MG; Start 10/16/16 at 16:00 Carvedilol (Coreg) 3.125 mg BID GTB Last administered on 10/21/16 08:44; Admin Dose 3.125 MG; Start 10/16/16 at 21:00 Methadone HCl (Methadone) 10 mg Q6H PRN PO PAIN; Start 10/21/16 at 10:30; Status ILYA JOHNSON Oct 21, 2016 10:14
[2016-10-21] MEDS: METHADONE 10 MG TAB PO PRN ×2 (10:33→20:01)
[2016-10-21 10:53] LABS: ADD UMIC NO; URINE BILIRUBIN (Dip) NEGATIVE (NEGATIVE); URINE BLOOD (Dip) NEGATIVE (NEGATIVE); URINE COLOR LT. YELLOW (YELLOW); URINE GLUCOSE (Dip) NEGATIVE (NEGATIVE); URINE KETONES (Dip) NEGATIVE (NEGATIVE); URINE LEUKOCYTE ESTERASE (Dip) NEGATIVE (NEGATIVE); URINE NITRITE (Dip) NEGATIVE (NEGATIVE); URINE TOTAL PROTEIN (Dip) NEGATIVE (NEGATIVE); URINE UROBILINOGEN (Dip) 1.0 E.U./dL (0.1-1.0)
[2016-10-21] MEDS: FENTAnyl PATCH 50 MCG/HR TRANSDERM SCH (11:43)
--- NOTE | 2016-10-21 12:11 | PN ---
Date/Time of Note Date/Time of Note DATE: 10/21/16 TIME: 12:05 Assessment/Plan VTE Prophylaxis VTE Prophylaxis Intervention: SCD's Lines/Catheters [facility] Type [facility] Central Line Central line still needed: Yes Urinary Cath still in place: Yes Reason Cath still needed: urinary retention Assessment/Plan Chief Complaint/Hosp Course ASSESSMENT AND PLAN: - Acute respiratory failure patient, failed extubation. Continue ventilator support, weaning per pulmonology. Dr. Simons is following the patient from pulmonology consultation. - Right-sided pneumonia with complicated parapneumonic effusion, status post thoracentesis, s/p R chest tube placement. Continue antibiotics per Dr. Osullivan group following from Infectious Disease standpoint. - Acute pulmonary emboli. Continue patient on Lovenox. 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 Dr. Luna is following from cardiology standpoint. - Encephalopathy, likely toxic metabolic, resolving. Continue to monitor. - Sepsis secondary to #2, resolved. - Status post tracheostomy by Dr. Marino on 10/20. - Status post G-tube placement by Dr. Galarza on 10/20 Continue Pepcid for peptic ulcer disease prophylaxis. Further recommendations based on clinical course. Plan of care discussed with Dr. Patel. Problems: Subjective 24 Hr Interval Summary Free Text/Dictation Patient had a low-grade fever, continues on vent support, sedated. Patient started on G-tube feeding, tolerates it well so far. Patient gets agitated during sedation vacation. Leukocytosis, most likely secondary to status post procedure, pending a urinalysis and urine culture. Exam/Review of Systems Vital Signs Vitals Vital Signs Date Time Temp Pulse Resp B/P Pulse Ox O2 Delivery O2 Flow Rate FiO2 10/21/16 11:23 73 16 98 30 10/21/16 10:00 89/50 10/21/16 09:00 Mechanical Ventilator 10/21/16 08:00 99.8 Intake and Output 10/20/16 10/20/16 10/21/16 15:00 23:00 07:00 Intake Total 125.0 ml 510 ml 630 ml Output Total 692 ml 520 ml 460 ml Balance -567.0 ml -10 ml 170 ml Exam GENERAL: Well-developed, well-nourished male, orally intubated, on vent support. LUNGS: Diminished with scattered rhonchi bilaterally. HEART: Normal S1, S2. No murmurs, gallops, clicks, rubs noted. ABDOMEN: Round, soft, nondistended, nontender. Bowel sounds present. EXTREMITIES: No edema, clubbing, cyanosis. Pulses equal bilaterally 2+. SKIN: There is no rash. NEUROLOGIC: Sedated Results Result Diagram: 10/21/16 0537 10/21/16 0537 Results 24 hrs Laboratory Tests Test 10/21/16 05:37 10/21/16 10:35 Alanine Aminotransferase (ALT/SGPT) 35 Albumin 2.9 L Albumin/Globulin Ratio 0.78 Alkaline Phosphatase 170 H Anion Gap 11 Aspartate Amino Transf (AST/SGOT) 27 Basophils # 0.0 Basophils % 0.1 Blood Morphology Comment Blood Urea Nitrogen 5 L Calcium Level 8.6 Carbon Dioxide Level 30 Chloride Level 101 Creatinine 0.54 L Direct Bilirubin 0.00 Eosinophils # 0.6 H Eosinophils % 4.0 Globulin 3.70 H Glucose Level 109 Hematocrit 35.9 L Hemoglobin 11.9 L Indirect Bilirubin 0.5 Lymphocytes # 1.1 Lymphocytes % 7.5 L Mean Corpuscular Hemoglobin 28.7 L Mean Corpuscular Hemoglobin Concent 33.1 Mean Corpuscular Volume 86.7 Mean Platelet Volume 9.8 Monocytes # 1.9 H Monocytes % 13.1 H Neutrophils # 10.7 H Neutrophils % 75.3 Nucleated Red Blood Cells # 0.0 Nucleated Red Blood Cells % 0.0 Platelet Count 390 Potassium Level 4.0 Red Blood Count 4.14 L Red Cell Distribution Width 14.9 H Sodium Level 138 Total Bilirubin 0.5 Total Protein 6.6 White Blood Count 14.2 H Urine Bilirubin NEGATIVE Urine Clarity CLEAR Urine Color LT. YELLOW Urine Glucose NEGATIVE Urine Hemoglobin NEGATIVE Urine Ketones NEGATIVE Urine Leukocyte Esterase NEGATIVE Urine Nitrite NEGATIVE Urine Specific [place] 1.010 Urine Total Protein NEGATIVE Urine Urobilinogen 1.0 E.U./dL Urine pH 6.5 Medications Medications Current Medications Ondansetron HCl (Zofran Inj) 4 mg Q6H PRN IV NAUSEA AND/OR VOMITING; Start at 18:00 Morphine Sulfate (morphine) 2 mg Q4H PRN IV PAIN LEVEL 7-10 Last administered on 10/17/16t 19:41; Admin Dose 2 MG; Start 12/27/16 at 18:00 Haloperidol (Haldol) 5 mg Q6H PRN IM AGITATION Last administered on 10/19/16 17:15; Admin Dose 5 MG; Start 09/18/16 at 11:30 Famotidine (Pepcid Iv) 20 mg BID IV Last administered on 10/21/16 08:42; Admin Dose 20 MG; Start 09/19/16 at 21:00 Metoclopramide HCl 10 mg 10 mg Q12 IV Last administered on 10/21/16 08:42; Admin Dose 10 MG; Start 09/24/16 at 11:30 Midazolam HCl/ Dextrose (Versed/D5W) 50 ml @ 2 mls/hr TITRATE IV Last administered on 10/21/16 08:41; Admin Dose 10 MLS/HR; Start 09/25/16 at 12:00; Status Future hold Acetaminophen (Tylenol Liquid) 650 mg Q4H PRN NGT PAIN AND OR ELEVATED TEMP Last administered on 10/14/16 19:56; Admin Dose 650 MG; Start 09/28/16 at 13:30 Lisinopril (Zestril) 2.5 mg DAILY GTB Last administered on 10/21/16 08:43; Admin Dose 2.5 MG; Start 10/02/16 at 09:00 Collagenase (Santyl) 1 applic DAILY TOP Last administered on 10/21/16 08:43; Admin Dose 1 APPLIC; Start 10/08/16 at 20:00 Nystatin (Nystatin Powder) 1 applic BID TOP Last administered on 10/21/16 08:43 ; Admin Dose 1 APPLIC; Start 10/08/16 at 21:00 Collagenase 1 applic 1 applic PRN PRN TOP WOUND CARE Last administered on 07:54; Admin Dose 1 APPLIC; Start 10/08/16 at 17:30 Potassium Chloride/Dextrose/ Sod Cl 1,000 ml @ 50 mls/hr Q20H IV Last administered on 10/21/16 02:01; Admin Dose 50 MLS/HR; Start 10/11/16 at 12:30 Fentanyl/Dextrose (D5W) 100 ml @ 2.5 mls/hr TITRATE IV Last administered on 03:30; Admin Dose 10 MLS/HR; Start 10/11/16 at 18:00 Lorazepam (Ativan) 2 mg Q2H PRN IV AGITATION Last administered on 10/20/16 16: 29; Admin Dose 2 MG; Start 10/16/16 at 16:00 Carvedilol (Coreg) 3.125 mg BID GTB Last administered on 10/21/16 08:44; Admin Dose 3.125 MG; Start 10/16/16 at 21:00 Methadone HCl (Methadone) 10 mg Q6H PRN PO PAIN Last administered on 10/21/16 10:33; Admin Dose 10 MG; Start 10/21/16 at 10:30 Fentanyl (Duragesic 50 Mcg/Hr Patch) 1 patch Q72H TRANSDERM Last administered on 10/21/16 11:43; Admin Dose 1 PATCH; Start 10/21/16 at 11:30 JAN ZHANG Oct 21, 2016 12:10
--- NOTE | 2016-10-21 13:55 | CONS ---
Date/Time of Note Date/Time of Note DATE: 10/21/16 TIME: 13:54 Assessment/Plan Assessment/Plan Additional Assessment/Plan Impression: 1. dysphagia secondary to encephalopathy, S/P peg,tolerating feeding 2. Right-sided pneumonia with complicated parapneumonic effusion, status post thoracentesis,s/p R chest tube placement. 3. Acute pulmonary emboli. 4. 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 5. Encephalopathy 6. Sepsis secondary to #2, resolved. Recommendation: 1.s/p trach placement 2. continue tube feeds 3. continue other supportive cares from primary and other consultants. 4.s/p PEG placement Consultation Date/Type/Reason Admit Date/Time Sep 15, 2016 at 16:54 Initial Consult Date 09/29/16 Type of Consultation: ID Referring Provider: JAN ZHANG 24 HR Interval Summary Constitutional: no complaints Exam/Review of Systems Vital Signs Vitals Vital Signs Date Time Temp Pulse Resp B/P Pulse Ox O2 Delivery O2 Flow Rate FiO2 10/21/16 11:23 73 16 98 30 10/21/16 10:00 89/50 10/21/16 09:00 Mechanical Ventilator 10/21/16 08:00 99.8 Intake and Output 10/20/16 10/20/16 10/21/16 15:00 23:00 07:00 Intake Total 125.0 ml 510 ml 630 ml Output Total 692 ml 520 ml 460 ml Balance -567.0 ml -10 ml 170 ml Exam Constitutional: alert, oriented, well developed Psych: nl mood/affect, no complaints Head: atraumatic, normocephalic Eyes: EOMI, PERRL, nl conjunctiva, nl lids, nl sclera ENMT: nl external ears & nose, nl lips & teeth, nl nasal mucosa & septum Neck: non-tender, supple Respiratory: clear to auscultation, normal air movement Cardiovascular: nl pulses, regular rate and rhythm Gastrointestinal: nl liver, spleen, non-tender, soft Musculoskeletal: nl extremities to inspection, nl gait and stance Extremities: normal pulses Neurological: LOCKER ATTENDANT II-XII intact, nl mental status, nl speech, nl strength Skin: nl turgor, No rash or lesions Lymph: nl lymph nodes Results Result Diagram: 10/21/16 0537 10/21/16 0537 Results 24 hrs Laboratory Tests Test 10/21/16 05:37 10/21/16 10:35 Alanine Aminotransferase (ALT/SGPT) 35 Albumin 2.9 L Albumin/Globulin Ratio 0.78 Alkaline Phosphatase 170 H Anion Gap 11 Aspartate Amino Transf (AST/SGOT) 27 Basophils # 0.0 Basophils % 0.1 Blood Morphology Comment Blood Urea Nitrogen 5 L Calcium Level 8.6 Carbon Dioxide Level 30 Chloride Level 101 Creatinine 0.54 L Direct Bilirubin 0.00 Eosinophils # 0.6 H Eosinophils % 4.0 Globulin 3.70 H Glucose Level 109 Hematocrit 35.9 L Hemoglobin 11.9 L Indirect Bilirubin 0.5 Lymphocytes # 1.1 Lymphocytes % 7.5 L Mean Corpuscular Hemoglobin 28.7 L Mean Corpuscular Hemoglobin Concent 33.1 Mean Corpuscular Volume 86.7 Mean Platelet Volume 9.8 Monocytes # 1.9 H Monocytes % 13.1 H Neutrophils # 10.7 H Neutrophils % 75.3 Nucleated Red Blood Cells # 0.0 Nucleated Red Blood Cells % 0.0 Platelet Count 390 Potassium Level 4.0 Red Blood Count 4.14 L Red Cell Distribution Width 14.9 H Sodium Level 138 Total Bilirubin 0.5 Total Protein 6.6 White Blood Count 14.2 H Urine Bilirubin NEGATIVE Urine Clarity CLEAR Urine Color LT. YELLOW Urine Glucose NEGATIVE Urine Hemoglobin NEGATIVE Urine Ketones NEGATIVE Urine Leukocyte Esterase NEGATIVE Urine Nitrite NEGATIVE Urine Specific [place] 1.010 Urine Total Protein NEGATIVE Urine Urobilinogen 1.0 E.U./dL Urine pH 6.5 Medications Medications Current Medications Ondansetron HCl (Zofran Inj) 4 mg Q6H PRN IV NAUSEA AND/OR VOMITING; Start at 18:00 Morphine Sulfate (morphine) 2 mg Q4H PRN IV PAIN LEVEL 7-10 Last administered on 10/17/16 19:41; Admin Dose 2 MG; Start 09/15/16 at 18:00 Haloperidol (Haldol) 5 mg Q6H PRN IM AGITATION Last administered on 10/19/16 17:15; Admin Dose 5 MG; Start 09/18/16 at 11:30 Famotidine (Pepcid Iv) 20 mg BID IV Last administered on 10/21/16 08:42; Admin Dose 20 MG; Start 09/19/16 at 21:00 Metoclopramide HCl 10 mg 10 mg Q12 IV Last administered on 10/21/16 08:42; Admin Dose 10 MG; Start 09/24/16 at 11:30 Midazolam HCl/ Dextrose (Versed/D5W) 50 ml @ 2 mls/hr TITRATE IV Last administered on 10/21/16 08:41; Admin Dose 10 MLS/HR; Start 09/25/16 at 12:00; Status Future hold Acetaminophen (Tylenol Liquid) 650 mg Q4H PRN NGT PAIN AND OR ELEVATED TEMP Last administered on 10/14/16 19:56; Admin Dose 650 MG; Start 09/28/16 at 13:30 Lisinopril (Zestril) 2.5 mg DAILY GTB Last administered on 10/21/16 08:43; Admin Dose 2.5 MG; Start 10/02/16 at 09:00 Collagenase (Santyl) 1 applic DAILY TOP Last administered on 10/21/16 08:43; Admin Dose 1 APPLIC; Start 10/08/16 at 20:00 Nystatin (Nystatin Powder) 1 applic BID TOP Last administered on 10/21/16 08:43 ; Admin Dose 1 APPLIC; Start 10/08/16 at 21:00 Collagenase 1 applic 1 applic PRN PRN TOP WOUND CARE Last administered on 07:54; Admin Dose 1 APPLIC; Start 10/08/16 at 17:30 Potassium Chloride/Dextrose/ Sod Cl 1,000 ml @ 50 mls/hr Q20H IV Last administered on 10/21/16 02:01; Admin Dose 50 MLS/HR; Start 10/11/16 at 12:30 Fentanyl/Dextrose (D5W) 100 ml @ 2.5 mls/hr TITRATE IV Last administered on 03:30; Admin Dose 10 MLS/HR; Start 10/11/16 at 18:00 Lorazepam (Ativan) 2 mg Q2H PRN IV AGITATION Last administered on 10/20/16 16: 29; Admin Dose 2 MG; Start 10/16/16 at 16:00 Carvedilol (Coreg) 3.125 mg BID GTB Last administered on 10/21/16 08:44; Admin Dose 3.125 MG; Start 10/16/16 at 21:00 Methadone HCl (Methadone) 10 mg Q6H PRN PO PAIN Last administered on 10/21/16 10:33; Admin Dose 10 MG; Start 10/21/16 at 10:30 Fentanyl (Duragesic 50 Mcg/Hr Patch) 1 patch Q72H TRANSDERM Last administered on 10/21/16 11:43; Admin Dose 1 PATCH; Start 10/21/16 at 11:30 ELMO GATICA MD Oct 21, 2016 13:55
--- NOTE | 2016-10-21 16:04 | CONS ---
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 Consultation Date/Type/Reason Admit Date/Time Sep 15, 2016 at 16:54 Initial Consult Date 09/29/16 Type of Consultation: cv Referring Provider: JAN ZHANG 24 HR Interval Summary Free Text/Dictation Patient seen and examined Exam/Review of Systems Vital Signs Vitals Vital Signs Date Time Temp Pulse Resp B/P Pulse Ox O2 Delivery O2 Flow Rate FiO2 10/21/16 13:30 80 16 100 30 10/21/16 10:00 89/50 10/21/16 09:00 Mechanical Ventilator 10/21/16 08:00 99.8 Intake and Output 10/20/16 10/20/16 10/21/16 15:00 23:00 07:00 Intake Total 125.0 ml 510 ml 630 ml Output Total 692 ml 520 ml 460 ml Balance -567.0 ml -10 ml 170 ml Exam Awake, occasionally following commands, becomes agitated Head: normocephalic Neck: other (tracheostomy) Respiratory: other (course breath sounds bilaterally, no wheezing) Cardiovascular: other (S1-S2 heard), regular rate and rhythm Gastrointestinal: bowel sounds, non-tender, soft Extremities: other (no edema) Results Result Diagram: 10/21/16 0537 10/21/16 0537 Results 24 hrs Laboratory Tests Test 10/21/16 05:37 10/21/16 10:35 Alanine Aminotransferase (ALT/SGPT) 35 Albumin 2.9 L Albumin/Globulin Ratio 0.78 Alkaline Phosphatase 170 H Anion Gap 11 Aspartate Amino Transf (AST/SGOT) 27 Basophils # 0.0 Basophils % 0.1 Blood Morphology Comment Blood Urea Nitrogen 5 L Calcium Level 8.6 Carbon Dioxide Level 30 Chloride Level 101 Creatinine 0.54 L Direct Bilirubin 0.00 Eosinophils # 0.6 H Eosinophils % 4.0 Globulin 3.70 H Glucose Level 109 Hematocrit 35.9 L Hemoglobin 11.9 L Indirect Bilirubin 0.5 Lymphocytes # 1.1 Lymphocytes % 7.5 L Mean Corpuscular Hemoglobin 28.7 L Mean Corpuscular Hemoglobin Concent 33.1 Mean Corpuscular Volume 86.7 Mean Platelet Volume 9.8 Monocytes # 1.9 H Monocytes % 13.1 H Neutrophils # 10.7 H Neutrophils % 75.3 Nucleated Red Blood Cells # 0.0 Nucleated Red Blood Cells % 0.0 Platelet Count 390 Potassium Level 4.0 Red Blood Count 4.14 L Red Cell Distribution Width 14.9 H Sodium Level 138 Total Bilirubin 0.5 Total Protein 6.6 White Blood Count 14.2 H Urine Bilirubin NEGATIVE Urine Clarity CLEAR Urine Color LT. YELLOW Urine Glucose NEGATIVE Urine Hemoglobin NEGATIVE Urine Ketones NEGATIVE Urine Leukocyte Esterase NEGATIVE Urine Nitrite NEGATIVE Urine Specific [place] 1.010 Urine Total Protein NEGATIVE Urine Urobilinogen 1.0 E.U./dL Urine pH 6.5 Medications Medications Current Medications Ondansetron HCl (Zofran Inj) 4 mg Q6H PRN IV NAUSEA AND/OR VOMITING; Start at 18:00 Morphine Sulfate (morphine) 2 mg Q4H PRN IV PAIN LEVEL 7-10 Last administered on 10/17/16 19:41; Admin Dose 2 MG; Start 09/15/16 at 18:00 Haloperidol (Haldol) 5 mg Q6H PRN IM AGITATION Last administered on 10/19/16 17:15; Admin Dose 5 MG; Start 09/18/16 at 11:30 Famotidine (Pepcid Iv) 20 mg BID IV Last administered on 10/21/16 08:42; Admin Dose 20 MG; Start 09/19/16 at 21:00 Metoclopramide HCl 10 mg 10 mg Q12 IV Last administered on 10/21/16 08:42; Admin Dose 10 MG; Start 09/24/16 at 11:30 Midazolam HCl/ Dextrose (Versed/D5W) 50 ml @ 2 mls/hr TITRATE IV Last administered on 10/21/16 08:41; Admin Dose 10 MLS/HR; Start 09/25/16 at 12:00; Status Future hold Acetaminophen (Tylenol Liquid) 650 mg Q4H PRN NGT PAIN AND OR ELEVATED TEMP Last administered on 10/14/16 19:56; Admin Dose 650 MG; Start 09/28/16 at 13:30 Lisinopril (Zestril) 2.5 mg DAILY GTB Last administered on 10/21/16 08:43; Admin Dose 2.5 MG; Start 10/02/16 at 09:00 Collagenase (Santyl) 1 applic DAILY TOP Last administered on 10/21/16 08:43; Admin Dose 1 APPLIC; Start 10/08/16 at 20:00 Nystatin (Nystatin Powder) 1 applic BID TOP Last administered on 10/21/16 08:43 ; Admin Dose 1 APPLIC; Start 10/08/16 at 21:00 Collagenase 1 applic 1 applic PRN PRN TOP WOUND CARE Last administered on 07:54; Admin Dose 1 APPLIC; Start 10/08/16 at 17:30 Potassium Chloride/Dextrose/ Sod Cl 1,000 ml @ 50 mls/hr Q20H IV Last administered on 10/21/16 02:01; Admin Dose 50 MLS/HR; Start 10/11/16 at 12:30 Fentanyl/Dextrose (D5W) 100 ml @ 2.5 mls/hr TITRATE IV Last administered on 03:30; Admin Dose 10 MLS/HR; Start 10/11/16 at 18:00 Lorazepam (Ativan) 2 mg Q2H PRN IV AGITATION Last administered on 10/20/16 16: 29; Admin Dose 2 MG; Start 10/16/16 at 16:00 Carvedilol (Coreg) 3.125 mg BID GTB Last administered on 10/21/16 08:44; Admin Dose 3.125 MG; Start 10/16/16 at 21:00 Methadone HCl (Methadone) 10 mg Q6H PRN PO PAIN Last administered on 10/21/16 10:33; Admin Dose 10 MG; Start 10/21/16 at 10:30 Fentanyl (Duragesic 50 Mcg/Hr Patch) 1 patch Q72H TRANSDERM Last administered on 10/21/16 11:43; Admin Dose 1 PATCH; Start 10/21/16 at 11:30 Enoxaparin Sodium (Lovenox) 30 mg BID SC ; Start 10/21/16 at 21:00 Nikolay Luna DO Oct 21, 2016 16:04
[2016-10-21] MEDS: APIXABAN 5 MG TABLET PO SCH (20:16)
[2016-10-21] MEDS ORDERED: ENOXAPARIN 30 MG/0.3 ML SYG SC SCH (21:00)
[2016-10-22] VITALS (56 sets, daily range): BP systolic 83–154; BP diastolic 54–104; PULSE 42–118; RESP 2–22
[2016-10-22] MEDS: MIDAZOLAM 50 MG in DEXTROSE 5% 40 ML IV SCH ×3 (02:10→21:55)
[2016-10-22] MEDS: FENTAnyl 1,000 MCG in DEXTROSE 5% 80 ML IV SCH (05:48)
[2016-10-22 06:08] LABS: BASOPHILS % 0.4 % (0.0-2.0); EOSINOPHILS # 1.2 10^3/ul (0.0-0.5); EOSINOPHILS % 10.7 % (0.0-7.0); HEMATOCRIT 35.5 % (42.0-52.0); HEMOGLOBIN 11.7 g/dl (14.0-18.0); LYMPHOCYTES # 1.6 10^3/ul (0.8-2.9); LYMPHOCYTES % 13.9 % (15.0-51.0); MEAN CORPUSCULAR HEMOGLOBIN 29.1 pg (29.0-33.0); MEAN CORPUSCULAR VOLUME 88.3 fl (82.0-101.0); MEAN PLATELET VOLUME 9.8 fl (7.4-10.4); MONOCYTE # 1.9 10^3/ul (0.3-0.9); MONOCYTES % 16.5 % (0.0-11.0); NEUTROPHIL # 6.8 10^3/ul (1.6-7.5); NEUTROPHILS % 58.5 % (39.0-77.0); PLATELET COUNT 348 10^3/UL (140-440); RED BLOOD COUNT 4.01 10^6/ul (4.70-6.10); UNCORRECTED WBC 11.6 10^3/ul (4.8-10.8); WHITE BLOOD COUNT 11.6 10^3/ul (4.8-10.8)
[2016-10-22 06:30] LABS: POTASSIUM 3.9 mmol/L (3.5-5.1)
[2016-10-22 06:32] LABS: CREATININE 0.53 mg/dl (0.61-1.24)
[2016-10-22 06:33] LABS: CALCIUM 8.6 mg/dl (8.4-10.2)
[2016-10-22 07:05] LABS: CONDITION 1; LH ANALYZER COMMENTS 1
[2016-10-22] MEDS: METOCLOPRAMIDE 10 MG INJ IV SCH ×2 (08:05→21:53)
[2016-10-22] MEDS: COLLAGENASE 30 GM TUBE TOP SCH (08:05)
[2016-10-22] MEDS: FAMOTIDINE 20 MG INJ IV SCH ×2 (08:05→21:53)
[2016-10-22] MEDS: METHADONE 10 MG TAB PO PRN (08:05)
[2016-10-22] MEDS: NYSTATIN 30 GM POWDER BTL TOP SCH ×2 (08:05→21:54)
--- NOTE | 2016-10-22 08:08 | CONS ---
Date/Time of Note Date/Time of Note DATE: 10/22/16 TIME: 08:07 Assessment/Plan Assessment/Plan Chief Complaint/Hosp Course assessment/impression - h/o sepsis, septic shock - probable post-op fever and leukocytosis - s/p trach and PEG placement - PNA with parapneumonic effusion. Could be started as CAP, other considerations include aspiration PNA. - h/o recurrent right pleural effusion. s/p diagnostic thoracentesis on 09/22/16. It showed glu=74 pro <2, DLA=[id number]. No malignancy on cytology. s/p repeat thoracentesis 10/01/16, no malignancy on cytology. R chest tube placed 10/07/16. 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) - h/o transaminitis, possibly shock liver, improved - h/o drug rash likely d/t pip/tazo, resolving - antimicrobial history: ashlyn (09/19/16-10/04/16, 10/08/16-10/10/16), azithromycin (10/02/16-10/06/16), pip/tazo (09/29/16-10/08/16), Tamiflu (10/02/16-10/08/16), ashlyn - negative results: rapid influenza screen, PPD, legionella antigen, mycoplasma pneumoniae, chlamydia pneumoniae serology, and respiratory viral panel; AFB smear (09/29, 09/30, 10/01, 10/08, 10/13) recommendations: - will review the results of urine culture sent on 10/21/2016 - monitor temp and WBC closely - the critical care time I took to care for this Pt today was from 0745 to 081 Problems: Consultation Date/Type/Reason Admit Date/Time Sep 15, 2016 at 16:54 Initial Consult Date 09/29/16 Type of Consultation: ID Referring Provider: JAN ZHANG 24 HR Interval Summary Subjective hx not possible: pt critical, pt critical status Constitutional: disoriented Exam/Review of Systems Vital Signs Vitals Vital Signs Date Time Temp Pulse Resp B/P Pulse Ox O2 Delivery O2 Flow Rate FiO2 10/22/16 06:30 74 9 91/61 99 10/22/16 06:00 Mechanical Ventilator 10/22/16 04:00 98.9 10/21/16 21:30 30 Intake and Output 10/21/16 10/21/16 10/22/16 15:00 23:00 07:00 Intake Total 320 ml 384 ml 578 ml Output Total 1130 ml 945 ml 535 ml Balance -810 ml -561 ml 43 ml Exam Constitutional: frail Psych: confusion Head: atraumatic, normocephalic Eyes: nl conjunctiva, nl lids Neck: other (trach) Respiratory: diminished breath sounds, other (CT) Cardiovascular: nl pulses, regular rate and rhythm Gastrointestinal: non-tender, other (GT), soft Genitourinary - Male: other (FC) Results Result Diagram: 10/22/16 0508 10/22/16 0528 Results 24 hrs Laboratory Tests Test 10/21/16 10:35 10/22/16 05:08 10/22/16 05:28 Urine Bilirubin NEGATIVE Urine Clarity CLEAR Urine Color LT. YELLOW Urine Glucose NEGATIVE Urine Hemoglobin NEGATIVE Urine Ketones NEGATIVE Urine Leukocyte Esterase NEGATIVE Urine Nitrite NEGATIVE Urine Specific [place] 1.010 Urine Total Protein NEGATIVE Urine Urobilinogen 1.0 E.U./dL Urine pH 6.5 Basophils # 0.0 Basophils % 0.4 Blood Morphology Comment Eosinophils # 1.2 H Eosinophils % 10.7 H Hematocrit 35.5 L Hemoglobin 11.7 L Lymphocytes # 1.6 Lymphocytes % 13.9 L Mean Corpuscular Hemoglobin 29.1 Mean Corpuscular Hemoglobin Concent 33.0 Mean Corpuscular Volume 88.3 Mean Platelet Volume 9.8 Monocytes # 1.9 H Monocytes % 16.5 H Neutrophils # 6.8 Neutrophils % 58.5 Nucleated Red Blood Cells # 0.0 Nucleated Red Blood Cells % 0.0 Platelet Count 348 Red Blood Count 4.01 L Red Cell Distribution Width 15.0 H White Blood Count 11.6 H Anion Gap 14 Blood Urea Nitrogen 7 Calcium Level 8.6 Carbon Dioxide Level 29 Chloride Level 101 Creatinine 0.53 L Glucose Level 89 Potassium Level 3.9 Sodium Level 140 Medications Medications Current Medications Ondansetron HCl (Zofran Inj) 4 mg Q6H PRN IV NAUSEA AND/OR VOMITING; Start at 18:00 Morphine Sulfate (morphine) 2 mg Q4H PRN IV PAIN LEVEL 7-10 Last administered on 10/17/16 19:41; Admin Dose 2 MG; Start 09/15/16 at 18:00 Haloperidol (Haldol) 5 mg Q6H PRN IM AGITATION Last administered on 10/19/16 17:15; Admin Dose 5 MG; Start 09/18/16 at 11:30 Famotidine (Pepcid Iv) 20 mg BID IV Last administered on 10/21/16 20:02; Admin Dose 20 MG; Start 09/19/16 at 21:00 Metoclopramide HCl 10 mg 10 mg Q12 IV Last administered on 10/21/16 20:02; Admin Dose 10 MG; Start 09/24/16 at 11:30 Midazolam HCl/ Dextrose (Versed/D5W) 50 ml @ 2 mls/hr TITRATE IV Last administered on 10/22/16 02:10; Admin Dose 7 MLS/HR; Start 09/25/16 at 12:00; Status Future hold Acetaminophen (Tylenol Liquid) 650 mg Q4H PRN NGT PAIN AND OR ELEVATED TEMP Last administered on 10/14/16 19:56; Admin Dose 650 MG; Start 09/28/16 at 13:30 Lisinopril (Zestril) 2.5 mg DAILY GTB Last administered on 10/21/16 08:43; Admin Dose 2.5 MG; Start 10/02/16 at 09:00 Collagenase (Santyl) 1 applic DAILY TOP Last administered on 10/21/16 08:43; Admin Dose 1 APPLIC; Start 10/08/16 at 20:00 Nystatin (Nystatin Powder) 1 applic BID TOP Last administered on 10/21/16 20:02 ; Admin Dose 1 APPLIC; Start 10/08/16 at 21:00 Collagenase 1 applic 1 applic PRN PRN TOP WOUND CARE Last administered on 07:54; Admin Dose 1 APPLIC; Start 10/08/16 at 17:30 Fentanyl/Dextrose (D5W) 100 ml @ 2.5 mls/hr TITRATE IV Last administered on 05:48; Admin Dose 7 MLS/HR; Start 10/11/16 at 18:00 Lorazepam (Ativan) 2 mg Q2H PRN IV AGITATION Last administered on 10/20/16 16: 29; Admin Dose 2 MG; Start 10/16/16 at 16:00 Carvedilol (Coreg) 3.125 mg BID GTB Last administered on 10/21/16 08:44; Admin Dose 3.125 MG; Start 10/16/16 at 21:00 Methadone HCl (Methadone) 10 mg Q6H PRN PO PAIN Last administered on 10/21/16 20:01; Admin Dose 10 MG; Start 10/21/16 at 10:30 Fentanyl (Duragesic 50 Mcg/Hr Patch) 1 patch Q72H TRANSDERM Last administered on 10/21/16 11:43; Admin Dose 1 PATCH; Start 10/21/16 at 11:30 Apixaban (Eliquis) 5 mg BID PO Last administered on 10/21/16 20:16; Admin Dose 5 MG; Start 10/21/16 at 21:00 MIGUEL ERNST M.D. Oct 22, 2016 08:08
[2016-10-22] MEDS: APIXABAN 5 MG TABLET PO SCH (08:13)
[2016-10-22] MEDS: LISINOPRIL 5 MG TAB GTB SCH (09:00)
--- NOTE | 2016-10-22 10:25 | CONS ---
Date/Time of Note Date/Time of Note DATE: 10/22/16 TIME: 10:20 Assessment/Plan Assessment/Plan Additional Assessment/Plan Assessment and recommendations; next 1. Patient admitted with severe right-sided pneumonia with respiratory failure requiring VATS procedure in the right side chest tube placement. Chest tube still draining about 200 mL per day of fluid in the Pleur-evac chamber. Therefore chest tube currently cannot be removed. Next 2. Status post tracheostomy and PEG tube placement. 3. Patient exhibiting severe drug withdrawal on sedation tapering. Still requiring continuous IV fentanyl currently at 50 mcg/h as well as Versed 6 mg/h started on fentanyl patch 50 mcg/h yesterday as well as methadone 10 mg every 6 hours, however the dosing has been entered as needed. Current ventilator settings, other supportive measures. Change methadone to every 6 hours scheduled. The patient is off continuous IV sedation to be transferred to a rehab facility. Consultation Date/Type/Reason Admit Date/Time Sep 15, 2016 at 16:54 Initial Consult Date 09/29/16 Type of Consultation: ID Referring Provider: JAN ZHANG 24 HR Interval Summary Free Text/Dictation Patient condition remains critical. Still on mechanical ventilation via tracheostomy. Currently sedated, in no distress. Patient has been given multiple trials from continuous IV sedation, he cannot handle that and gets extremely agitated start climbing out of bed and starts pulling on various lines and catheters. General examination; young man, on mechanical ventilation via tracheostomy, sedated currently in no distress. Exam/Review of Systems Vital Signs Vitals Vital Signs Date Time Temp Pulse Resp B/P Pulse Ox O2 Delivery O2 Flow Rate FiO2 10/22/16 08:00 68 10/22/16 06:30 9 91/61 99 10/22/16 06:00 Mechanical Ventilator 10/22/16 04:00 98.9 10/21/16 21:30 30 Intake and Output 10/21/16 10/21/16 10/22/16 15:00 23:00 07:00 Intake Total 320 ml 384 ml 578 ml Output Total 1130 ml 945 ml 535 ml Balance -810 ml -561 ml 43 ml Exam HEENT examination; supple neck, tracheostomy in place. Pupils are midsize, reactive to light. No neck masses. Next Chest examination; clear to auscultation bilaterally. There is a right-sided chest tube in place. S1-S2 audible no murmurs regular rhythm. Abdomen examination; soft, nondistended, no organomegaly. PEG tube in place. Extremity examination; no peripheral edema. Pulses 1+ bilaterally. A AND P MECHANIC examination; patient is sedated. Next Ventilator settings are assist control 16, tidal volume 500. PEEP of 5, 30% FiO2. Results Result Diagram: 10/22/16 0508 10/22/16 0528 Results 24 hrs Laboratory Tests Test 10/21/16 10:35 10/22/16 05:08 10/22/16 05:28 Urine Bilirubin NEGATIVE Urine Clarity CLEAR Urine Color LT. YELLOW Urine Glucose NEGATIVE Urine Hemoglobin NEGATIVE Urine Ketones NEGATIVE Urine Leukocyte Esterase NEGATIVE Urine Nitrite NEGATIVE Urine Specific [place] 1.010 Urine Total Protein NEGATIVE Urine Urobilinogen 1.0 E.U./dL Urine pH 6.5 Basophils # 0.0 Basophils % 0.4 Blood Morphology Comment Eosinophils # 1.2 H Eosinophils % 10.7 H Hematocrit 35.5 L Hemoglobin 11.7 L Lymphocytes # 1.6 Lymphocytes % 13.9 L Mean Corpuscular Hemoglobin 29.1 Mean Corpuscular Hemoglobin Concent 33.0 Mean Corpuscular Volume 88.3 Mean Platelet Volume 9.8 Monocytes # 1.9 H Monocytes % 16.5 H Neutrophils # 6.8 Neutrophils % 58.5 Nucleated Red Blood Cells # 0.0 Nucleated Red Blood Cells % 0.0 Platelet Count 348 Red Blood Count 4.01 L Red Cell Distribution Width 15.0 H White Blood Count 11.6 H Anion Gap 14 Blood Urea Nitrogen 7 Calcium Level 8.6 Carbon Dioxide Level 29 Chloride Level 101 Creatinine 0.53 L Glucose Level 89 Potassium Level 3.9 Sodium Level 140 Medications Medications Current Medications Ondansetron HCl (Zofran Inj) 4 mg Q6H PRN IV NAUSEA AND/OR VOMITING; Start at 18:00 Morphine Sulfate (morphine) 2 mg Q4H PRN IV PAIN LEVEL 7-10 Last administered on 10/17/16 19:41; Admin Dose 2 MG; Start 09/15/16 at 18:00 Haloperidol (Haldol) 5 mg Q6H PRN IM AGITATION Last administered on 10/19/16 17:15; Admin Dose 5 MG; Start 09/18/16 at 11:30 Famotidine (Pepcid Iv) 20 mg BID IV Last administered on 10/22/16 08:05; Admin Dose 20 MG; Start 09/19/16 at 21:00 Metoclopramide HCl 10 mg 10 mg Q12 IV Last administered on 10/22/16 08:05; Admin Dose 10 MG; Start 09/24/16 at 11:30 Midazolam HCl/ Dextrose (Versed/D5W) 50 ml @ 2 mls/hr TITRATE IV Last administered on 10/22/16 02:10; Admin Dose 7 MLS/HR; Start 09/25/16 at 12:00; Status Future hold Acetaminophen (Tylenol Liquid) 650 mg Q4H PRN NGT PAIN AND OR ELEVATED TEMP Last administered on 10/14/16 19:56; Admin Dose 650 MG; Start 09/28/16 at 13:30 Lisinopril (Zestril) 2.5 mg DAILY GTB Last administered on 10/21/16 08:43; Admin Dose 2.5 MG; Start 10/02/16 at 09:00 Collagenase (Santyl) 1 applic DAILY TOP Last administered on 10/22/16 08:05; Admin Dose 1 APPLIC; Start 10/08/16 at 20:00 Nystatin (Nystatin Powder) 1 applic BID TOP Last administered on 10/22/16 08:05 ; Admin Dose 1 APPLIC; Start 10/08/16 at 21:00 Collagenase 1 applic 1 applic PRN PRN TOP WOUND CARE Last administered on 07:54; Admin Dose 1 APPLIC; Start 10/08/16 at 17:30 Fentanyl/Dextrose (D5W) 100 ml @ 2.5 mls/hr TITRATE IV Last administered on 05:48; Admin Dose 7 MLS/HR; Start 10/11/16 at 18:00 Lorazepam (Ativan) 2 mg Q2H PRN IV AGITATION Last administered on 10/20/16 16: 29; Admin Dose 2 MG; Start 10/16/16 at 16:00 Carvedilol (Coreg) 3.125 mg BID GTB Last administered on 10/21/16 08:44; Admin Dose 3.125 MG; Start 10/16/16 at 21:00 Methadone HCl (Methadone) 10 mg Q6H PRN PO PAIN Last administered on 10/22/16 08:05; Admin Dose 10 MG; Start 10/21/16 at 10:30 Fentanyl (Duragesic 50 Mcg/Hr Patch) 1 patch Q72H TRANSDERM Last administered on 10/21/16t 11:43; Admin Dose 1 PATCH; Start 10/21/16 at 11:30 ILYA HILL Oct 22, 2016 10:25
[2016-10-22] MEDS: METHADONE 10 MG TAB PO SCH ×2 (13:51→21:53)
--- NOTE | 2016-10-22 14:03 | PN ---
Date/Time of Note Date/Time of Note DATE: 10/22/16 TIME: 13:36 Assessment/Plan VTE Prophylaxis VTE Prophylaxis Intervention: SCD's Lines/Catheters IV Catheter Type (from Nrs): Central Line Central line still needed: Yes Urinary Cath still in place: Yes Reason Cath still needed: urinary retention Assessment/Plan Assessment/Plan 1. Acute respiratory failure patient, failed extubation. Continue ventilator support. - Plan for tracheostomy tomorrow per Dr Harris/staff -- Status post tracheostomy by Dr. Marino on 10/20. - per Dr. Aquino group is following the patient from pulmonology consultation. 2. Right-sided pneumonia with complicated parapneumonic effusion, status post thoracentesis. SP chest drain placement. antibiotics - per Dr. Osullivan in Infectious Disease 3. Acute pulmonary emboli. 4. 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 Overall negative I/Os, Appreciate cardiology recommendations. CXR reviewed 5. Encephalopathy, likely toxic metabolic. Continue to monitor. Currently on sedation. 6. Intermediate QuantiFERON gold test, AFB Negative, Only droplet precaution 7. Sepsis secondary to #2, resolved. 8. Dysphagia- plan for GT placement tomorrow per Dr Hernandez covering FOR Dr Dunn - Status post G-tube placement by Dr. Galarza on 10/20 Continue Pepcid for peptic ulcer disease prophylaxis. Further recommendations based on clinical course. Critical care time spent: 40 min. Plan of care discussed with Dr. Patel. Subjective 24 Hr Interval Summary Free Text/Dictation No acute distress patient is alert and oriented, x 1 to name, confused remains on all bilateral upper extremity restraints no fall or injury depolarization discussed with staff Constitutional: requiring IVF, requiring O2 Eyes: no complaints ENT: no complaints Respiratory: shortness of breath Cardiovascular: no complaints Gastrointestinal: no complaints Genitourinary: no complaints Musculoskeletal: no complaints Skin: no complaints Neurologic: no complaints Exam/Review of Systems Vital Signs Vitals Vital Signs Date Time Temp Pulse Resp B/P Pulse Ox O2 Delivery O2 Flow Rate FiO2 10/22/16 12:00 98.7 72 16 90/54 99 Mechanical Ventilator 10/22/16 08:00 30 Intake and Output 10/21/16 10/21/16 10/22/16 15:00 23:00 07:00 Intake Total 320 ml 384 ml 618 ml Output Total 1130 ml 945 ml 535 ml Balance -810 ml -561 ml 83 ml Exam Constitutional: alert, well developed Psych: nl mood/affect Eyes: EOMI, PERRL, nl sclera ENMT: nl external ears & nose Neck: non-tender Respiratory: diminished breath sounds Cardiovascular: nl pulses Gastrointestinal: non-tender, soft Musculoskeletal: nl extremities to inspection Extremities: normal pulses Neurological: confused Lymph: nontender Results Result Diagram: 10/22/16 0508 10/22/16 0528 Results 24 hrs Laboratory Tests Test 10/22/16 05:08 10/22/16 05:28 Basophils # 0.0 Basophils % 0.4 Blood Morphology Comment Eosinophils # 1.2 H Eosinophils % 10.7 H Hematocrit 35.5 L Hemoglobin 11.7 L Lymphocytes # 1.6 Lymphocytes % 13.9 L Mean Corpuscular Hemoglobin 29.1 Mean Corpuscular Hemoglobin Concent 33.0 Mean Corpuscular Volume 88.3 Mean Platelet Volume 9.8 Monocytes # 1.9 H Monocytes % 16.5 H Neutrophils # 6.8 Neutrophils % 58.5 Nucleated Red Blood Cells # 0.0 Nucleated Red Blood Cells % 0.0 Platelet Count 348 Red Blood Count 4.01 L Red Cell Distribution Width 15.0 H White Blood Count 11.6 H Anion Gap 14 Blood Urea Nitrogen 7 Calcium Level 8.6 Carbon Dioxide Level 29 Chloride Level 101 Creatinine 0.53 L Glucose Level 89 Potassium Level 3.9 Sodium Level 140 Medications Medications Current Medications Ondansetron HCl (Zofran Inj) 4 mg Q6H PRN IV NAUSEA AND/OR VOMITING; Start at 18:00 Morphine Sulfate (morphine) 2 mg Q4H PRN IV PAIN LEVEL 7-10 Last administered on 10/17/16 19:41; Admin Dose 2 MG; Start 09/15/16 at 18:00 Haloperidol (Haldol) 5 mg Q6H PRN IM AGITATION Last administered on 10/19/16 17:15; Admin Dose 5 MG; Start 09/18/16 at 11:30 Famotidine (Pepcid Iv) 20 mg BID IV Last administered on 10/22/16 08:05; Admin Dose 20 MG; Start 09/19/16 at 21:00 Metoclopramide HCl 10 mg 10 mg Q12 IV Last administered on 10/22/16 08:05; Admin Dose 10 MG; Start 09/24/16 at 11:30 Midazolam HCl/ Dextrose (Versed/D5W) 50 ml @ 2 mls/hr TITRATE IV Last administered on 10/22/16 11:39; Admin Dose 5 MLS/HR; Start 09/25/16 at 12:00; Status Future hold Acetaminophen (Tylenol Liquid) 650 mg Q4H PRN NGT PAIN AND OR ELEVATED TEMP Last administered on 10/14/16 19:56; Admin Dose 650 MG; Start 09/28/16 at 13:30 Lisinopril (Zestril) 2.5 mg DAILY GTB Last administered on 10/21/16 08:43; Admin Dose 2.5 MG; Start 10/02/16 at 09:00 Collagenase (Santyl) 1 applic DAILY TOP Last administered on 10/22/16 08:05; Admin Dose 1 APPLIC; Start 10/08/16 at 20:00 Nystatin (Nystatin Powder) 1 applic BID TOP Last administered on 10/22/16 08:05 ; Admin Dose 1 APPLIC; Start 10/08/16 at 21:00 Collagenase 1 applic 1 applic PRN PRN TOP WOUND CARE Last administered on 07:54; Admin Dose 1 APPLIC; Start 10/08/16 at 17:30 Fentanyl/Dextrose (D5W) 100 ml @ 2.5 mls/hr TITRATE IV Last administered on 05:48; Admin Dose 7 MLS/HR; Start 10/11/16 at 18:00 Lorazepam (Ativan) 2 mg Q2H PRN IV AGITATION Last administered on 10/20/16 16: 29; Admin Dose 2 MG; Start 10/16/16 at 16:00 Carvedilol (Coreg) 3.125 mg BID GTB Last administered on 10/21/16 08:44; Admin Dose 3.125 MG; Start 10/16/16 at 21:00 Fentanyl (Duragesic 50 Mcg/Hr Patch) 1 patch Q72H TRANSDERM Last administered on 10/21/16 11:43; Admin Dose 1 PATCH; Start 10/21/16 at 11:30 Methadone HCl (Methadone) 10 mg Q6H PO ; Start 10/22/16 at 14:00 CECY BELTRAN 2, 2017 13:46 CECY BELTRAN Oct 22, 2016 13:46
[2016-10-22] MEDS: LORAZEPAM 2 MG INJ IV PRN (15:37)
--- NOTE | 2016-10-22 16:57 | CONS ---
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 Consultation Date/Type/Reason Admit Date/Time Sep 15, 2016 at 16:54 Initial Consult Date 09/29/16 Type of Consultation: cv Referring Provider: JAN ZHANG 24 HR Interval Summary Free Text/Dictation Patient seen and examined, denies chest pain or shortness of breath Exam/Review of Systems Vital Signs Vitals Vital Signs Date Time Temp Pulse Resp B/P Pulse Ox O2 Delivery O2 Flow Rate FiO2 10/22/16 16:00 68 10/22/16 12:00 98.7 16 90/54 99 Mechanical Ventilator 10/22/16 11:25 30 Intake and Output 10/21/16 10/21/16 10/22/16 15:00 23:00 07:00 Intake Total 320 ml 384 ml 618 ml Output Total 1130 ml 945 ml 535 ml Balance -810 ml -561 ml 83 ml Exam Follows commands, still in restraints, no apparent distress Constitutional: alert Head: normocephalic Neck: other (tracheostomy) Respiratory: other (course breath sounds bilaterally, no wheezing) Cardiovascular: other (S1 and S2 heard), regular rate and rhythm Gastrointestinal: bowel sounds, non-tender, soft Extremities: other (no edema) Results Result Diagram: 10/22/16 0508 10/22/16 0528 Results 24 hrs Laboratory Tests Test 10/22/16 05:08 10/22/16 05:28 Basophils # 0.0 Basophils % 0.4 Blood Morphology Comment Eosinophils # 1.2 H Eosinophils % 10.7 H Hematocrit 35.5 L Hemoglobin 11.7 L Lymphocytes # 1.6 Lymphocytes % 13.9 L Mean Corpuscular Hemoglobin 29.1 Mean Corpuscular Hemoglobin Concent 33.0 Mean Corpuscular Volume 88.3 Mean Platelet Volume 9.8 Monocytes # 1.9 H Monocytes % 16.5 H Neutrophils # 6.8 Neutrophils % 58.5 Nucleated Red Blood Cells # 0.0 Nucleated Red Blood Cells % 0.0 Platelet Count 348 Red Blood Count 4.01 L Red Cell Distribution Width 15.0 H White Blood Count 11.6 H Anion Gap 14 Blood Urea Nitrogen 7 Calcium Level 8.6 Carbon Dioxide Level 29 Chloride Level 101 Creatinine 0.53 L Glucose Level 89 Potassium Level 3.9 Sodium Level 140 Medications Medications Current Medications Ondansetron HCl (Zofran Inj) 4 mg Q6H PRN IV NAUSEA AND/OR VOMITING; Start at 18:00 Morphine Sulfate (morphine) 2 mg Q4H PRN IV PAIN LEVEL 7-10 Last administered on 10/17/16 19:41; Admin Dose 2 MG; Start 09/15/16 at 18:00 Haloperidol (Haldol) 5 mg Q6H PRN IM AGITATION Last administered on 10/19/16 17:15; Admin Dose 5 MG; Start 09/18/16 at 11:30 Famotidine (Pepcid Iv) 20 mg BID IV Last administered on 10/22/16 08:05; Admin Dose 20 MG; Start 09/19/16 at 21:00 Metoclopramide HCl 10 mg 10 mg Q12 IV Last administered on 10/22/16 08:05; Admin Dose 10 MG; Start 09/24/16 at 11:30 Midazolam HCl/ Dextrose (Versed/D5W) 50 ml @ 2 mls/hr TITRATE IV Last administered on 10/22/16 11:39; Admin Dose 5 MLS/HR; Start 09/25/16 at 12:00; Status Future hold Acetaminophen (Tylenol Liquid) 650 mg Q4H PRN NGT PAIN AND OR ELEVATED TEMP Last administered on 10/14/16 19:56; Admin Dose 650 MG; Start 09/28/16 at 13:30 Lisinopril (Zestril) 2.5 mg DAILY GTB Last administered on 10/21/16 08:43; Admin Dose 2.5 MG; Start 10/02/16 at 09:00 Collagenase (Santyl) 1 applic DAILY TOP Last administered on 10/22/16 08:05; Admin Dose 1 APPLIC; Start 10/08/16 at 20:00 Nystatin (Nystatin Powder) 1 applic BID TOP Last administered on 10/22/16 08:05 ; Admin Dose 1 APPLIC; Start 10/08/16 at 21:00 Collagenase 1 applic 1 applic PRN PRN TOP WOUND CARE Last administered on 07:54; Admin Dose 1 APPLIC; Start 10/08/16 at 17:30 Fentanyl/Dextrose (D5W) 100 ml @ 2.5 mls/hr TITRATE IV Last administered on 05:48; Admin Dose 7 MLS/HR; Start 10/11/16 at 18:00 Lorazepam (Ativan) 2 mg Q2H PRN IV AGITATION Last administered on 10/22/16 15: 37; Admin Dose 2 MG; Start 10/16/16 at 16:00 Carvedilol (Coreg) 3.125 mg BID GTB Last administered on 10/21/16 08:44; Admin Dose 3.125 MG; Start 10/16/16 at 21:00 Fentanyl (Duragesic 50 Mcg/Hr Patch) 1 patch Q72H TRANSDERM Last administered on 10/21/16 11:43; Admin Dose 1 PATCH; Start 10/21/16 at 11:30 Methadone HCl (Methadone) 10 mg Q6H PO Last administered on 10/22/16 13:51; Admin Dose 10 MG; Start 10/22/16 at 14:00 Nikolay Luna DO Oct 22, 2016 16:57
--- NOTE | 2016-10-22 19:22 | PN ---
Date/Time of Note Date/Time of Note DATE: 10/22/16 TIME: 19:21 Assessment/Plan Lines/Catheters IV Catheter Type (from Nrsg): Central Line Tang in Place (from Nrsg): Yes Assessment/Plan Chief Complaint/Hosp Course IMPRESSION 1. Pulmonary embolism. 2. Pneumonia. 3 Pleural effusion RECOMMENDATIONS: SP CT placement SP Trach will continue vent support trach care Problems: Subjective 24 Hr Interval Summary Constitutional: improved Pain Control: mild Exam/Review of Systems Vital Signs Vitals Vital Signs Date Time Temp Pulse Resp B/P Pulse Ox O2 Delivery O2 Flow Rate FiO2 10/22/16 18:30 94 16 130/93 100 10/22/16 18:00 Mechanical Ventilator 10/22/16 17:15 30 10/22/16 16:00 98.8 Intake and Output 10/21/16 10/21/16 10/22/16 15:00 23:00 07:00 Intake Total 320 ml 384 ml 618 ml Output Total 1130 ml 945 ml 535 ml Balance -810 ml -561 ml 83 ml Exam Neck: non-tender, supple Respiratory: clear to auscultation, normal air movement Cardiovascular: nl pulses, regular rate and rhythm Gastrointestinal: nl liver, spleen, non-tender, soft Results Result Diagram: 10/22/16 0508 10/22/16 0528 YOUNG HAY MD Oct 22, 2016 19:22
--- NOTE | 2016-10-22 20:14 | CONS ---
Date/Time of Note Date/Time of Note DATE: 10/22/16 TIME: 20:13 Assessment/Plan Assessment/Plan Additional Assessment/Plan Impression: 1. dysphagia secondary to encephalopathy, S/P peg,tolerating feeding 2. Right-sided pneumonia with complicated parapneumonic effusion, status post thoracentesis,s/p R chest tube placement. 3. Acute pulmonary emboli. 4. 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 5. Encephalopathy 6. Sepsis secondary to #2, resolved. Recommendation: 1.s/p trach placement 2. continue tube feeds 3. continue other supportive cares from primary and other consultants. 4.s/p PEG placement,tolerating feeding well Consultation Date/Type/Reason Admit Date/Time Sep 15, 2016 at 16:54 Initial Consult Date 09/29/16 Type of Consultation: cv Referring Provider: JAN ZHANG 24 HR Interval Summary Subjective hx not possible: pt critical Exam/Review of Systems Vital Signs Vitals Vital Signs Date Time Temp Pulse Resp B/P Pulse Ox O2 Delivery O2 Flow Rate FiO2 10/22/16 20:00 99.3 96 6 128/101 99 Mechanical Ventilator 10/22/16 20:00 30 Intake and Output 10/21/16 10/21/16 10/22/16 15:00 23:00 07:00 Intake Total 320 ml 384 ml 618 ml Output Total 1130 ml 945 ml 535 ml Balance -810 ml -561 ml 83 ml Exam Constitutional: alert, oriented, well developed Psych: nl mood/affect, no complaints Head: atraumatic, normocephalic Eyes: EOMI, PERRL, nl conjunctiva, nl lids, nl sclera ENMT: nl external ears & nose, nl lips & teeth, nl nasal mucosa & septum Neck: non-tender, supple Respiratory: clear to auscultation, normal air movement Cardiovascular: nl pulses, regular rate and rhythm Gastrointestinal: nl liver, spleen, non-tender, soft Musculoskeletal: nl extremities to inspection, nl gait and stance Extremities: normal pulses Neurological: ADMINISTRATIVE JUDGE II-XII intact, nl mental status, nl speech, nl strength Skin: nl turgor, No rash or lesions Lymph: nl lymph nodes Results Result Diagram: 10/22/16 0508 10/22/16 0528 Results 24 hrs Laboratory Tests Test 10/22/16 05:08 10/22/16 05:28 Basophils # 0.0 Basophils % 0.4 Blood Morphology Comment Eosinophils # 1.2 H Eosinophils % 10.7 H Hematocrit 35.5 L Hemoglobin 11.7 L Lymphocytes # 1.6 Lymphocytes % 13.9 L Mean Corpuscular Hemoglobin 29.1 Mean Corpuscular Hemoglobin Concent 33.0 Mean Corpuscular Volume 88.3 Mean Platelet Volume 9.8 Monocytes # 1.9 H Monocytes % 16.5 H Neutrophils # 6.8 Neutrophils % 58.5 Nucleated Red Blood Cells # 0.0 Nucleated Red Blood Cells % 0.0 Platelet Count 348 Red Blood Count 4.01 L Red Cell Distribution Width 15.0 H White Blood Count 11.6 H Anion Gap 14 Blood Urea Nitrogen 7 Calcium Level 8.6 Carbon Dioxide Level 29 Chloride Level 101 Creatinine 0.53 L Glucose Level 89 Potassium Level 3.9 Sodium Level 140 Medications Medications Current Medications Ondansetron HCl (Zofran Inj) 4 mg Q6H PRN IV NAUSEA AND/OR VOMITING; Start at 18:00 Morphine Sulfate (morphine) 2 mg Q4H PRN IV PAIN LEVEL 7-10 Last administered on 10/17/16 19:41; Admin Dose 2 MG; Start 09/15/16 at 18:00 Haloperidol (Haldol) 5 mg Q6H PRN IM AGITATION Last administered on 10/19/16 17:15; Admin Dose 5 MG; Start 09/18/16 at 11:30 Famotidine (Pepcid Iv) 20 mg BID IV Last administered on 10/22/16 08:05; Admin Dose 20 MG; Start 09/19/16 at 21:00 Metoclopramide HCl 10 mg 10 mg Q12 IV Last administered on 10/22/16 08:05; Admin Dose 10 MG; Start 09/24/16 at 11:30 Midazolam HCl/ Dextrose (Versed/D5W) 50 ml @ 2 mls/hr TITRATE IV Last administered on 10/22/16 11:39; Admin Dose 5 MLS/HR; Start 09/25/16 at 12:00; Status Future hold Acetaminophen (Tylenol Liquid) 650 mg Q4H PRN NGT PAIN AND OR ELEVATED TEMP Last administered on 10/14/16 19:56; Admin Dose 650 MG; Start 09/28/16 at 13:30 Lisinopril (Zestril) 2.5 mg DAILY GTB Last administered on 10/21/16 08:43; Admin Dose 2.5 MG; Start 10/02/16 at 09:00 Collagenase (Santyl) 1 applic DAILY TOP Last administered on 10/22/16 08:05; Admin Dose 1 APPLIC; Start 10/08/16 at 20:00 Nystatin (Nystatin Powder) 1 applic BID TOP Last administered on 10/22/16 08:05 ; Admin Dose 1 APPLIC; Start 10/08/16 at 21:00 Collagenase 1 applic 1 applic PRN PRN TOP WOUND CARE Last administered on 07:54; Admin Dose 1 APPLIC; Start 10/08/16 at 17:30 Fentanyl/Dextrose (D5W) 100 ml @ 2.5 mls/hr TITRATE IV Last administered on 05:48; Admin Dose 7 MLS/HR; Start 10/11/16 at 18:00 Lorazepam (Ativan) 2 mg Q2H PRN IV AGITATION Last administered on 10/22/16 15: 37; Admin Dose 2 MG; Start 10/16/16 at 16:00 Carvedilol (Coreg) 3.125 mg BID GTB Last administered on 10/21/16 08:44; Admin Dose 3.125 MG; Start 10/16/16 at 21:00 Fentanyl (Duragesic 50 Mcg/Hr Patch) 1 patch Q72H TRANSDERM Last administered on 10/21/16 11:43; Admin Dose 1 PATCH; Start 10/21/16 at 11:30 Methadone HCl (Methadone) 10 mg Q6H PO Last administered on 10/22/16 13:51; Admin Dose 10 MG; Start 10/22/16 at 14:00 ELMO GATICA MD Oct 22, 2016 20:14
[2016-10-23] VITALS (45 sets, daily range): BP systolic 67–144; BP diastolic 52–106; PULSE 66–131; RESP 3–27
[2016-10-23] MEDS: METHADONE 10 MG TAB PO SCH ×3 (03:07→18:35)
[2016-10-23] MEDS: MIDAZOLAM 50 MG in DEXTROSE 5% 40 ML IV SCH (05:10)
[2016-10-23 06:59] LABS: BASOPHIL # 0.1 10^3/ul (0.0-0.1); BASOPHILS % 0.6 % (0.0-2.0); EOSINOPHILS # 1.5 10^3/ul (0.0-0.5); HEMATOCRIT 38.7 % (42.0-52.0); HEMOGLOBIN 12.9 g/dl (14.0-18.0); LYMPHOCYTES # 1.7 10^3/ul (0.8-2.9); LYMPHOCYTES % 14.6 % (15.0-51.0); MEAN CORPUSCULAR HEMOGLOBIN 29.3 pg (29.0-33.0); MEAN CORPUSCULAR HGB CONC 33.3 g/dl (32.0-37.0); MEAN CORPUSCULAR VOLUME 87.9 fl (82.0-101.0); MEAN PLATELET VOLUME 11.1 fl (7.4-10.4); MONOCYTE # 1.6 10^3/ul (0.3-0.9); MONOCYTES % 13.1 % (0.0-11.0); NEUTROPHILS % 58.7 % (39.0-77.0); PLATELET COUNT 369 10^3/UL (140-440); RED CELL DISTRIBUTION WIDTH 15.3 % (11.5-14.5); WHITE BLOOD COUNT 11.9 10^3/ul (4.8-10.8)
[2016-10-23 07:08] LABS: ALBUMIN/GLOBULIN RATIO 0.81; BILIRUBIN,INDIRECT 0.6 mg/dl (0-1.1); BILIRUBIN,TOTAL 0.6 mg/dl (0.2-1.3); CREATININE 0.51 mg/dl (0.61-1.24); TOTAL PROTEIN 6.7 g/dl (6.1-8.1)
[2016-10-23 07:09] LABS: CALCIUM 8.9 mg/dl (8.4-10.2)
--- NOTE | 2016-10-23 07:41 | CONS ---
Date/Time of Note Date/Time of Note DATE: 10/23/16 TIME: 07:33 Assessment/Plan Assessment/Plan Additional Assessment/Plan Assessment and recommendations; next 1. Patient admitted with respiratory failure due to extensive right-sided pneumonia requiring a VATS procedure and chest tube. 2. Severe drug withdrawal precluding weaning from mechanical ventilation ultimately requiring a tracheostomy and PEG tube. 3. Clinical status is significantly improved today. 4. No further drainage from the chest tube. 5. History of hypertension. 6. Patient currently maintained on assist control of 16, tidal volume 500, 30% FiO2, PEEP of 5. Was given a brief CPAP trial at bedside and has excellent parameters now. 7. DVT and PE. Patient currently on apixaban. Continue current treatment, increase methadone dosing. Continue fentanyl patch and wean off Versed drip as tolerated. Also been off fentanyl drip as tolerated. Give the patient a CPAP trial. Subsequently weaning down to T piece as tolerated. Patient is to be transferred to a rehab center. Consultation Date/Type/Reason Admit Date/Time Sep 15, 2016 at 16:54 Initial Consult Date 09/29/16 Type of Consultation: pulmonary Referring Provider: JAN ZHANG 24 HR Interval Summary Free Text/Dictation Patient condition remains stable. Patient is much more awake now and follows some commands. Still requiring continuous IV fentanyl and Versed drips for sedation. Although at a lower dosing. Patient has remained hemodynamically stable. General examination; middle-aged man, on mechanical ventilator via tracheostomy , awake. Currently in no distress. Exam/Review of Systems Vital Signs Vitals Vital Signs Date Time Temp Pulse Resp B/P Pulse Ox O2 Delivery O2 Flow Rate FiO2 10/23/16 06:30 67 9 120/75 100 10/23/16 06:00 Mechanical Ventilator 10/23/16 05:42 30 10/23/16 04:00 99.4 Intake and Output 10/22/16 10/22/16 10/23/16 15:00 23:00 07:00 Intake Total 440 ml 592 ml 457 ml Output Total 985 ml 855 ml 555 ml Balance -545 ml -263 ml -98 ml Exam HEENT examination; supple neck, tracheostomy in place, midsize pupils. No neck masses. No thyromegaly. Fair dentition. Chest examination; clear to auscultation bilaterally. S1-S2 audible, no murmurs. Regular rate and rhythm. There is a right-sided chest tube in place. There is no further drainage in the Pleur-evac chamber. Abdomen examination; soft, nondistended. Nontender. PEG tube in place. No organomegaly. Extremity examination; no peripheral edema. Pulses 2+ bilaterally. SINGER SONGWRITER examination; patient is now much more awake, follows simple commands. Able to move all 4 extremities on command. Results Result Diagram: 10/22/16 0508 10/23/16 0550 Results 24 hrs Laboratory Tests Test 10/23/16 05:50 Alanine Aminotransferase (ALT/SGPT) 26 Albumin 3.0 L Albumin/Globulin Ratio 0.81 Alkaline Phosphatase 146 H Anion Gap 15 Aspartate Amino Transf (AST/SGOT) 24 Blood Urea Nitrogen 6 L Calcium Level 8.9 Carbon Dioxide Level 31 Chloride Level 99 Creatinine 0.51 L Direct Bilirubin 0.00 Globulin 3.70 H Glucose Level 94 Indirect Bilirubin 0.6 Potassium Level 4.0 Sodium Level 141 Total Bilirubin 0.6 Total Protein 6.7 Medications Medications Current Medications Ondansetron HCl (Zofran Inj) 4 mg Q6H PRN IV NAUSEA AND/OR VOMITING; Start at 18:00 Morphine Sulfate (morphine) 2 mg Q4H PRN IV PAIN LEVEL 7-10 Last administered on 10/17/16 19:41; Admin Dose 2 MG; Start 09/15/16 at 18:00 Haloperidol (Haldol) 5 mg Q6H PRN IM AGITATION Last administered on 10/19/16 17:15; Admin Dose 5 MG; Start 09/18/16 at 11:30 Famotidine (Pepcid Iv) 20 mg BID IV Last administered on 10/22/16 21:53; Admin Dose 20 MG; Start 09/19/16 at 21:00 Metoclopramide HCl 10 mg 10 mg Q12 IV Last administered on 10/22/16 21:53; Admin Dose 10 MG; Start 09/24/16 at 11:30 Midazolam HCl/ Dextrose (Versed/D5W) 50 ml @ 2 mls/hr TITRATE IV Last administered on 10/23/16 05:10; Admin Dose 6 MLS/HR; Start 09/25/16 at 12:00; Status Future hold Acetaminophen (Tylenol Liquid) 650 mg Q4H PRN NGT PAIN AND OR ELEVATED TEMP Last administered on 10/14/16 19:56; Admin Dose 650 MG; Start 09/28/16 at 13:30 Lisinopril (Zestril) 2.5 mg DAILY GTB Last administered on 10/21/16 08:43; Admin Dose 2.5 MG; Start 10/02/16 at 09:00 Collagenase (Santyl) 1 applic DAILY TOP Last administered on 10/22/16 08:05; Admin Dose 1 APPLIC; Start 10/08/16 at 20:00 Nystatin (Nystatin Powder) 1 applic BID TOP Last administered on 10/22/16 21:54 ; Admin Dose 1 APPLIC; Start 10/08/16 at 21:00 Collagenase 1 applic 1 applic PRN PRN TOP WOUND CARE Last administered on 07:54; Admin Dose 1 APPLIC; Start 10/08/16 at 17:30 Fentanyl/Dextrose (D5W) 100 ml @ 2.5 mls/hr TITRATE IV Last administered on 05:48; Admin Dose 7 MLS/HR; Start 10/11/16 at 18:00 Lorazepam (Ativan) 2 mg Q2H PRN IV AGITATION Last administered on 10/22/16 15: 37; Admin Dose 2 MG; Start 10/16/16 at 16:00 Carvedilol (Coreg) 3.125 mg BID GTB Last administered on 10/22/16 21:54; Admin Dose 3.125 MG; Start 10/16/16 at 21:00 Fentanyl (Duragesic 50 Mcg/Hr Patch) 1 patch Q72H TRANSDERM Last administered on 10/21/16 11:43; Admin Dose 1 PATCH; Start 10/21/16 at 11:30 Methadone HCl (Methadone) 10 mg Q6H PO Last administered on 10/23/16 03:07; Admin Dose 10 MG; Start 10/22/16 at 14:00 ILYA HILL Oct 23, 2016 07:41
[2016-10-23] MEDS ORDERED: METHADONE 10 MG TAB PO PRN ×2 (08:00→10:00)
[2016-10-23 08:18] LABS: CONDITION 1; LH ANALYZER COMMENTS 1; SUSPECT 1; UNCORRECTED WBC 12.8 10^3/ul (4.8-10.8)
--- NOTE | 2016-10-23 09:06 | CONS ---
Date/Time of Note Date/Time of Note DATE: 10/23/16 TIME: 09:05 Assessment/Plan Assessment/Plan Chief Complaint/Hosp Course assessment/impression - h/o sepsis, septic shock - probable post-op fever and leukocytosis - h/o pneumonia with parapneumonic effusion. Could be started as CAP, other considerations include aspiration PNA. - h/o recurrent right pleural effusion. s/p diagnostic thoracentesis on 09/22/16. It showed glu=74 pro <2, [id number]. No malignancy on cytology. s/p repeat thoracentesis 10/01/16, no malignancy on cytology. R chest tube placed 10/07/16. 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) - h/o transaminitis, possibly shock liver, improved - h/o drug rash likely d/t pip/tazo, resolving - antimicrobial history: ashlyn (09/19/16-10/04/16, 10/08/16-10/10/16), azithromycin (10/02/16-10/06/16), pip/tazo (09/29/16-10/08/16), Tamiflu (10/02/16-10/08/16), ashlyn - negative results: rapid influenza screen, PPD, legionella antigen, mycoplasma pneumoniae, chlamydia pneumoniae serology, and respiratory viral panel; AFB smear (09/29, 09/30, 10/01, 10/08, 10/13) recommendations: - repeat pancultures if temp >100.4F - the critical care time I took to care for this Pt today was from 0835 to 0905 Problems: Consultation Date/Type/Reason Admit Date/Time Sep 15, 2016 at 16:54 Initial Consult Date 09/29/16 Type of Consultation: ID Referring Provider: JAN ZHANG 24 HR Interval Summary Subjective hx not possible: pt non-verbal Exam/Review of Systems Vital Signs Vitals Vital Signs Date Time Temp Pulse Resp B/P Pulse Ox O2 Delivery O2 Flow Rate FiO2 10/23/16 08:00 79 12 112/72 100 Mechanical Ventilator 10/23/16 07:30 99.1 10/23/16 07:30 30 Intake and Output 10/22/16 10/22/16 10/23/16 15:00 23:00 07:00 Intake Total 440 ml 592 ml 497 ml Output Total 985 ml 855 ml 655 ml Balance -545 ml -263 ml -158 ml Exam Constitutional: non-verbal Psych: confusion Head: atraumatic, normocephalic Eyes: nl conjunctiva, nl lids ENMT: nl external ears & nose, nl nasal mucosa & septum Neck: other (trach) Cardiovascular: nl pulses, regular rate and rhythm Gastrointestinal: non-tender, other (GT), soft Genitourinary - Male: other Extremities: No edema Neurological: confused, lethargic Skin: nl turgor, No rash or lesions Results Result Diagram: 10/23/16 0550 10/23/16 0550 Results 24 hrs Laboratory Tests Test 10/23/16 05:50 Alanine Aminotransferase (ALT/SGPT) 26 Albumin 3.0 L Albumin/Globulin Ratio 0.81 Alkaline Phosphatase 146 H Anion Gap 15 Aspartate Amino Transf (AST/SGOT) 24 Basophils # 0.1 Basophils % 0.6 Blood Morphology Comment Blood Urea Nitrogen 6 L Calcium Level 8.9 Carbon Dioxide Level 31 Chloride Level 99 Creatinine 0.51 L Direct Bilirubin 0.00 Eosinophils # 1.5 H Eosinophils % 13.0 H Globulin 3.70 H Glucose Level 94 Hematocrit 38.7 L Hemoglobin 12.9 L Indirect Bilirubin 0.6 Lymphocytes # 1.7 Lymphocytes % 14.6 L Mean Corpuscular Hemoglobin 29.3 Mean Corpuscular Hemoglobin Concent 33.3 Mean Corpuscular Volume 87.9 Mean Platelet Volume 11.1 H Monocytes # 1.6 H Monocytes % 13.1 H Neutrophils # 7.0 Neutrophils % 58.7 Nucleated Red Blood Cells # 0.0 Nucleated Red Blood Cells % 0.0 Platelet Count 369 Potassium Level 4.0 Red Blood Count 4.40 L Red Cell Distribution Width 15.3 H Sodium Level 141 Total Bilirubin 0.6 Total Protein 6.7 White Blood Count 11.9 H Medications Medications Current Medications Ondansetron HCl (Zofran Inj) 4 mg Q6H PRN IV NAUSEA AND/OR VOMITING; Start 12/ 27/16 at 18:00 Morphine Sulfate (morphine) 2 mg Q4H PRN IV PAIN LEVEL 7-10 Last administered on 10/17/16 19:41; Admin Dose 2 MG; Start 09/15/16 at 18:00 Haloperidol (Haldol) 5 mg Q6H PRN IM AGITATION Last administered on 10/19/16 17:15; Admin Dose 5 MG; Start 09/18/16 at 11:30 Famotidine (Pepcid Iv) 20 mg BID IV Last administered on 10/22/16 21:53; Admin Dose 20 MG; Start 09/19/16 at 21:00 Metoclopramide HCl 10 mg 10 mg Q12 IV Last administered on 10/22/16 21:53; Admin Dose 10 MG; Start 09/24/16 at 11:30 Midazolam HCl/ Dextrose (Versed/D5W) 50 ml @ 2 mls/hr TITRATE IV Last administered on 10/23/16 05:10; Admin Dose 6 MLS/HR; Start 09/25/16 at 12:00; Status Future hold Acetaminophen (Tylenol Liquid) 650 mg Q4H PRN NGT PAIN AND OR ELEVATED TEMP Last administered on 10/14/16 19:56; Admin Dose 650 MG; Start 09/28/16 at 13:30 Lisinopril (Zestril) 2.5 mg DAILY GTB Last administered on 10/21/16 08:43; Admin Dose 2.5 MG; Start 10/02/16 at 09:00 Collagenase (Santyl) 1 applic DAILY TOP Last administered on 10/22/16 08:05; Admin Dose 1 APPLIC; Start 10/08/16 at 20:00 Nystatin (Nystatin Powder) 1 applic BID TOP Last administered on 10/22/16 21:54 ; Admin Dose 1 APPLIC; Start 10/08/16 at 21:00 Collagenase 1 applic 1 applic PRN PRN TOP WOUND CARE Last administered on 07:54; Admin Dose 1 APPLIC; Start 10/08/16 at 17:30 Fentanyl/Dextrose (D5W) 100 ml @ 2.5 mls/hr TITRATE IV Last administered on 05:48; Admin Dose 7 MLS/HR; Start 10/11/16 at 18:00 Lorazepam (Ativan) 2 mg Q2H PRN IV AGITATION Last administered on 10/22/16 15: 37; Admin Dose 2 MG; Start 10/16/16 at 16:00 Carvedilol (Coreg) 3.125 mg BID GTB Last administered on 10/22/16 21:54; Admin Dose 3.125 MG; Start 10/16/16 at 21:00 Fentanyl (Duragesic 50 Mcg/Hr Patch) 1 patch Q72H TRANSDERM Last administered on 10/21/16 11:43; Admin Dose 1 PATCH; Start 10/21/16 at 11:30 Methadone HCl (Methadone) 20 mg Q6H PRN PO PAIN; Start 10/23/16 at 08:00 MIGUEL ERNST M.D. Oct 23, 2016 09:06
[2016-10-23] MEDS: FAMOTIDINE 20 MG INJ IV SCH ×2 (09:30→20:09)
[2016-10-23] MEDS: LISINOPRIL 5 MG TAB GTB SCH (09:30)
[2016-10-23] MEDS: METOCLOPRAMIDE 10 MG INJ IV SCH ×2 (09:31→20:09)
[2016-10-23] MEDS: NYSTATIN 30 GM POWDER BTL TOP SCH ×2 (09:32→20:10)
[2016-10-23] MEDS: COLLAGENASE 30 GM TUBE TOP SCH (09:33)
[2016-10-23] MEDS: APIXABAN 5 MG TABLET PO SCH ×2 (10:27→20:09)
--- NOTE | 2016-10-23 10:43 | CONS ---
Date/Time of Note Date/Time of Note DATE: 10/23/16 TIME: 10:41 Assessment/Plan Assessment/Plan Additional Assessment/Plan Respiratory failure Pulmonary emboli Acute decompensated systolic congestive heart failure Severe biventricular cardiomyopathy with left ventricular ejection fraction 20% Pleural effusion -Patient has been restarted on anticoagulation given history of PE. Continue HILDA inhibitor and beta beatriz as blood pressure and renal function permits. Consultation Date/Type/Reason Admit Date/Time Sep 15, 2016 at 16:54 Initial Consult Date 09/29/16 Type of Consultation: cv Referring Provider: JAN ZHANG 24 HR Interval Summary Free Text/Dictation Patient undergoing CPAP trials Exam/Review of Systems Vital Signs Vitals Vital Signs Date Time Temp Pulse Resp B/P Pulse Ox O2 Delivery O2 Flow Rate FiO2 10/23/16 08:00 79 12 112/72 100 Mechanical Ventilator 10/23/16 07:30 99.1 10/23/16 07:30 30 Intake and Output 10/22/16 10/22/16 10/23/16 15:00 23:00 07:00 Intake Total 440 ml 592 ml 497 ml Output Total 985 ml 855 ml 655 ml Balance -545 ml -263 ml -158 ml Exam Sleepy but arousable, follows commands, becomes agitated at times Head: normocephalic Neck: other (tracheostomy) Respiratory: other (course breath sounds bilaterally, no wheezing) Cardiovascular: other (S1-S2 heard), regular rate and rhythm Gastrointestinal: bowel sounds, non-tender, soft Extremities: other (no edema) Results Result Diagram: 10/23/16 0550 10/23/16 0550 Results 24 hrs Laboratory Tests Test 10/23/16 05:50 Alanine Aminotransferase (ALT/SGPT) 26 Albumin 3.0 L Albumin/Globulin Ratio 0.81 Alkaline Phosphatase 146 H Anion Gap 15 Aspartate Amino Transf (AST/SGOT) 24 Basophils # 0.1 Basophils % 0.6 Blood Morphology Comment Blood Urea Nitrogen 6 L Calcium Level 8.9 Carbon Dioxide Level 31 Chloride Level 99 Creatinine 0.51 L Direct Bilirubin 0.00 Eosinophils # 1.5 H Eosinophils % 13.0 H Globulin 3.70 H Glucose Level 94 Hematocrit 38.7 L Hemoglobin 12.9 L Indirect Bilirubin 0.6 Lymphocytes # 1.7 Lymphocytes % 14.6 L Mean Corpuscular Hemoglobin 29.3 Mean Corpuscular Hemoglobin Concent 33.3 Mean Corpuscular Volume 87.9 Mean Platelet Volume 11.1 H Monocytes # 1.6 H Monocytes % 13.1 H Neutrophils # 7.0 Neutrophils % 58.7 Nucleated Red Blood Cells # 0.0 Nucleated Red Blood Cells % 0.0 Platelet Count 369 Potassium Level 4.0 Red Blood Count 4.40 L Red Cell Distribution Width 15.3 H Sodium Level 141 Total Bilirubin 0.6 Total Protein 6.7 White Blood Count 11.9 H Medications Medications Current Medications Ondansetron HCl (Zofran Inj) 4 mg Q6H PRN IV NAUSEA AND/OR VOMITING; Start at 18:00 Morphine Sulfate (morphine) 2 mg Q4H PRN IV PAIN LEVEL 7-10 Last administered on 10/17/16 19:41; Admin Dose 2 MG; Start 09/15/16 at 18:00 Haloperidol (Haldol) 5 mg Q6H PRN IM AGITATION Last administered on 10/19/16 17:15; Admin Dose 5 MG; Start 09/18/16 at 11:30 Famotidine (Pepcid Iv) 20 mg BID IV Last administered on 10/23/16 09:30; Admin Dose 20 MG; Start 09/19/16 at 21:00 Metoclopramide HCl 10 mg 10 mg Q12 IV Last administered on 10/23/16 09:31; Admin Dose 10 MG; Start 09/24/16 at 11:30 Midazolam HCl/ Dextrose (Versed/D5W) 50 ml @ 2 mls/hr TITRATE IV Last administered on 10/23/16 05:10; Admin Dose 6 MLS/HR; Start 09/25/16 at 12:00; Status Future hold Acetaminophen (Tylenol Liquid) 650 mg Q4H PRN NGT PAIN AND OR ELEVATED TEMP Last administered on 10/14/16 19:56; Admin Dose 650 MG; Start 09/28/16 at 13:30 Lisinopril (Zestril) 2.5 mg DAILY GTB Last administered on 10/23/16 09:30; Admin Dose 2.5 MG; Start 10/02/16 at 09:00 Collagenase (Santyl) 1 applic DAILY TOP Last administered on 10/23/16 09:33; Admin Dose 1 APPLIC; Start 10/08/16 at 20:00 Nystatin (Nystatin Powder) 1 applic BID TOP Last administered on 10/23/16 09:32 ; Admin Dose 1 APPLIC; Start 10/08/16 at 21:00 Collagenase 1 applic 1 applic PRN PRN TOP WOUND CARE Last administered on 07:54; Admin Dose 1 APPLIC; Start 10/08/16 at 17:30 Fentanyl/Dextrose (D5W) 100 ml @ 2.5 mls/hr TITRATE IV Last administered on 05:48; Admin Dose 7 MLS/HR; Start 10/11/16 at 18:00 Lorazepam (Ativan) 2 mg Q2H PRN IV AGITATION Last administered on 10/22/16 15: 37; Admin Dose 2 MG; Start 10/16/16 at 16:00 Carvedilol (Coreg) 3.125 mg BID GTB Last administered on 10/23/16 09:30; Admin Dose 3.125 MG; Start 10/16/16 at 21:00 Fentanyl (Duragesic 50 Mcg/Hr Patch) 1 patch Q72H TRANSDERM Last administered on 10/21/16 11:43; Admin Dose 1 PATCH; Start 10/21/16 at 11:30 Apixaban (Eliquis) 5 mg BID PO Last administered on 10/23/16 10:27; Admin Dose 5 MG; Start 10/23/16 at 10:00 Methadone HCl (Methadone) 20 mg Q6H PRN PO PAIN; Start 10/23/16 at 10:00 Nikolay Luna DO Oct 23, 2016 10:43
--- NOTE | 2016-10-23 12:25 | PN ---
Date/Time of Note Date/Time of Note DATE: 10/23/16 TIME: 12:22 Assessment/Plan VTE Prophylaxis VTE Prophylaxis Intervention: other (eliquiz) Lines/Catheters [facility] Central Line Central line still needed: Yes Urinary Cath still in place: Yes Reason Cath still needed: urinary retention Assessment/Plan Chief Complaint/Hosp Course ASSESSMENT AND PLAN: - Acute respiratory failure patient, failed extubation. Continue ventilator support, weaning per pulmonology. Dr. Simons is following the patient from pulmonology consultation. - Right-sided pneumonia with complicated parapneumonic effusion, status post thoracentesis, s/p R chest tube placement. Continue antibiotics per Dr. Osullivan group following from Infectious Disease standpoint. - Acute pulmonary emboli. Continue patient on Lovenox. 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 Dr. Luna is following from cardiology standpoint. - Encephalopathy, likely toxic metabolic, resolving. Continue to monitor. - Sepsis secondary to #2, resolved. - Status post tracheostomy by Dr. Marino on 10/20. - Status post G-tube placement by Dr. Galarza on 10/20 Continue Pepcid for peptic ulcer disease prophylaxis. Further recommendations based on clinical course. Plan of care discussed with Dr. Patel. Problems: Subjective 24 Hr Interval Summary Free Text/Dictation Patient looks comfortable, calm, undergoing CPAP trial. Exam/Review of Systems Vital Signs Vitals Vital Signs Date Time Temp Pulse Resp B/P Pulse Ox O2 Delivery O2 Flow Rate FiO2 10/23/16 11:30 30 10/23/16 11:00 93 16 108/79 100 Mechanical Ventilator 10/23/16 07:30 99.1 Intake and Output 10/22/16 10/22/16 10/23/16 15:00 23:00 07:00 Intake Total 440 ml 592 ml 497 ml Output Total 985 ml 855 ml 655 ml Balance -545 ml -263 ml -158 ml Exam GENERAL: Well-developed, well-nourished male, orally intubated, on vent support. LUNGS: Diminished with scattered rhonchi bilaterally. HEART: Normal S1, S2. No murmurs, gallops, clicks, rubs noted. ABDOMEN: Round, soft, nondistended, nontender. Bowel sounds present. EXTREMITIES: No edema, clubbing, cyanosis. Pulses equal bilaterally 2+. SKIN: There is no rash. NEUROLOGIC: Sedated Results Result Diagram: 10/23/16 0550 10/23/16 0550 Results 24 hrs Laboratory Tests Test 10/23/16 05:50 Alanine Aminotransferase (ALT/SGPT) 26 Albumin 3.0 L Albumin/Globulin Ratio 0.81 Alkaline Phosphatase 146 H Anion Gap 15 Aspartate Amino Transf (AST/SGOT) 24 Basophils # 0.1 Basophils % 0.6 Blood Morphology Comment Blood Urea Nitrogen 6 L Calcium Level 8.9 Carbon Dioxide Level 31 Chloride Level 99 Creatinine 0.51 L Direct Bilirubin 0.00 Eosinophils # 1.5 H Eosinophils % 13.0 H Globulin 3.70 H Glucose Level 94 Hematocrit 38.7 L Hemoglobin 12.9 L Indirect Bilirubin 0.6 Lymphocytes # 1.7 Lymphocytes % 14.6 L Mean Corpuscular Hemoglobin 29.3 Mean Corpuscular Hemoglobin Concent 33.3 Mean Corpuscular Volume 87.9 Mean Platelet Volume 11.1 H Monocytes # 1.6 H Monocytes % 13.1 H Neutrophils # 7.0 Neutrophils % 58.7 Nucleated Red Blood Cells # 0.0 Nucleated Red Blood Cells % 0.0 Platelet Count 369 Potassium Level 4.0 Red Blood Count 4.40 L Red Cell Distribution Width 15.3 H Sodium Level 141 Total Bilirubin 0.6 Total Protein 6.7 White Blood Count 11.9 H Medications Medications Current Medications Ondansetron HCl (Zofran Inj) 4 mg Q6H PRN IV NAUSEA AND/OR VOMITING; Start at 18:00 Morphine Sulfate (morphine) 2 mg Q4H PRN IV PAIN LEVEL 7-10 Last administered on 10/17/16 19:41; Admin Dose 2 MG; Start 09/15/16 at 18:00 Haloperidol (Haldol) 5 mg Q6H PRN IM AGITATION Last administered on 10/19/16 17:15; Admin Dose 5 MG; Start 09/18/16 at 11:30 Famotidine (Pepcid Iv) 20 mg BID IV Last administered on 10/23/16 09:30; Admin Dose 20 MG; Start 09/19/16 at 21:00 Metoclopramide HCl 10 mg 10 mg Q12 IV Last administered on 10/23/16 09:31; Admin Dose 10 MG; Start 09/24/16 at 11:30 Midazolam HCl/ Dextrose (Versed/D5W) 50 ml @ 2 mls/hr TITRATE IV Last administered on 10/23/16 05:10; Admin Dose 6 MLS/HR; Start 09/25/16 at 12:00; Stop 10/23/16 at 14:00; Status Future hold Acetaminophen (Tylenol Liquid) 650 mg Q4H PRN NGT PAIN AND OR ELEVATED TEMP Last administered on 10/14/16 19:56; Admin Dose 650 MG; Start 09/28/16 at 13:30 Lisinopril (Zestril) 2.5 mg DAILY GTB Last administered on 10/23/16 09:30; Admin Dose 2.5 MG; Start 10/02/16 at 09:00 Collagenase (Santyl) 1 applic DAILY TOP Last administered on 10/23/16 09:33; Admin Dose 1 APPLIC; Start 10/08/16 at 20:00 Nystatin (Nystatin Powder) 1 applic BID TOP Last administered on 10/23/16 09:32 ; Admin Dose 1 APPLIC; Start 10/08/16 at 21:00 Collagenase 1 applic 1 applic PRN PRN TOP WOUND CARE Last administered on 07:54; Admin Dose 1 APPLIC; Start 10/08/16 at 17:30 Fentanyl/Dextrose (D5W) 100 ml @ 2.5 mls/hr TITRATE IV Last administered on 05:48; Admin Dose 7 MLS/HR; Start 10/11/16 at 18:00; Stop 10/23/16 at 18: 00 Lorazepam (Ativan) 2 mg Q2H PRN IV AGITATION Last administered on 10/22/16 15: 37; Admin Dose 2 MG; Start 10/16/16 at 16:00 Carvedilol (Coreg) 3.125 mg BID GTB Last administered on 10/23/16 09:30; Admin Dose 3.125 MG; Start 10/16/16 at 21:00 Fentanyl (Duragesic 50 Mcg/Hr Patch) 1 patch Q72H TRANSDERM Last administered on 10/21/16 11:43; Admin Dose 1 PATCH; Start 10/21/16 at 11:30 Apixaban 5 mg 5 mg BID PO Last administered on 10/23/16 10:27; Admin Dose 5 MG ; Start 10/23/16 at 10:00 Midazolam HCl 50 ml @ 2 mls/hr TITRATE IV ; Start 10/23/16 at 13:00 Fentanyl (Sublimaze) 100 ml @ 2.5 mls/hr TITRATE IV ; Start 10/23/16 at 16:00 Methadone HCl (Methadone) 20 mg Q6 PO ; Start 10/23/16 at 12:00 JAN ZHANG Oct 23, 2016 12:25
[2016-10-23] MEDS: LORAZEPAM 2 MG INJ IV PRN ×3 (12:51→20:09)
--- NOTE | 2016-10-23 19:16 | PN ---
Date/Time of Note Date/Time of Note DATE: 10/23/16 TIME: 19:16 Assessment/Plan Lines/Catheters IV Catheter Type (from Nrsg): Central Line Tang in Place (from Nrsg): Yes Assessment/Plan Chief Complaint/Hosp Course IMPRESSION 1. Pulmonary embolism. 2. Pneumonia. 3 Pleural effusion RECOMMENDATIONS: SP CT placement SP Trach will continue vent support trach care Problems: Subjective 24 Hr Interval Summary Constitutional: improved Pain Control: mild Exam/Review of Systems Vital Signs Vitals Vital Signs Date Time Temp Pulse Resp B/P Pulse Ox O2 Delivery O2 Flow Rate FiO2 10/23/16 17:40 84 20 97 30 10/23/16 16:00 117/86 Mechanical Ventilator 10/23/16 12:00 98.8 Intake and Output 10/22/16 10/22/16 10/23/16 15:00 23:00 07:00 Intake Total 440 ml 592 ml 497 ml Output Total 985 ml 855 ml 655 ml Balance -545 ml -263 ml -158 ml Exam ENMT: mucosa pink and moist, nl external ears & nose, nl lips & teeth, nl nasal mucosa & septum Neck: non-tender, supple Respiratory: clear to auscultation, normal air movement Cardiovascular: nl pulses, regular rate and rhythm Results Result Diagram: 10/23/16 0550 10/23/16 0550 YOUNG HAY MD Oct 23, 2016 19:16
--- NOTE | 2016-10-23 20:14 | CONS ---
Date/Time of Note Date/Time of Note DATE: 10/23/16 TIME: 20:13 Assessment/Plan Assessment/Plan Additional Assessment/Plan Assessment/Plan Additional Assessment/Plan Impression: 1. dysphagia secondary to encephalopathy, S/P peg,tolerating feeding 2. Right-sided pneumonia with complicated parapneumonic effusion, status post thoracentesis,s/p R chest tube placement. 3. Acute pulmonary emboli. 4. 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 5. Encephalopathy 6. Sepsis secondary to #2, resolved. Recommendation: 1.s/p trach placement 2. continue tube feeds 3. continue other supportive cares from primary and other consultants. 4.s/p PEG placement,tolerating feeding well 5.antibiotics as per ID Consultation Date/Type/Reason Admit Date/Time Sep 15, 2016 at 16:54 Initial Consult Date 09/29/16 Type of Consultation: cv Referring Provider: JAN ZHANG 24 HR Interval Summary Subjective hx not possible: pt critical Exam/Review of Systems Vital Signs Vitals Vital Signs Date Time Temp Pulse Resp B/P Pulse Ox O2 Delivery O2 Flow Rate FiO2 10/23/16 19:00 85 16 109/70 98 Mechanical Ventilator 10/23/16 17:40 30 10/23/16 17:00 98.0 Intake and Output 10/22/16 10/22/16 10/23/16 15:00 23:00 07:00 Intake Total 440 ml 592 ml 497 ml Output Total 985 ml 855 ml 655 ml Balance -545 ml -263 ml -158 ml Exam Constitutional: alert, oriented, well developed Psych: nl mood/affect, no complaints Head: atraumatic, normocephalic Eyes: EOMI, PERRL, nl conjunctiva, nl lids, nl sclera ENMT: nl external ears & nose, nl lips & teeth, nl nasal mucosa & septum Neck: non-tender, supple Respiratory: clear to auscultation, normal air movement Cardiovascular: nl pulses, regular rate and rhythm Gastrointestinal: nl liver, spleen, non-tender, soft Musculoskeletal: nl extremities to inspection, nl gait and stance Extremities: normal pulses Neurological: HADOOP ENGINEER II-XII intact, nl mental status, nl speech, nl strength Skin: nl turgor, No rash or lesions Lymph: nl lymph nodes Results Result Diagram: 10/23/16 0550 10/23/16 0550 Results 24 hrs Laboratory Tests Test 10/23/16 05:50 Alanine Aminotransferase (ALT/SGPT) 26 Albumin 3.0 L Albumin/Globulin Ratio 0.81 Alkaline Phosphatase 146 H Anion Gap 15 Aspartate Amino Transf (AST/SGOT) 24 Basophils # 0.1 Basophils % 0.6 Blood Morphology Comment Blood Urea Nitrogen 6 L Calcium Level 8.9 Carbon Dioxide Level 31 Chloride Level 99 Creatinine 0.51 L Direct Bilirubin 0.00 Eosinophils # 1.5 H Eosinophils % 13.0 H Globulin 3.70 H Glucose Level 94 Hematocrit 38.7 L Hemoglobin 12.9 L Indirect Bilirubin 0.6 Lymphocytes # 1.7 Lymphocytes % 14.6 L Mean Corpuscular Hemoglobin 29.3 Mean Corpuscular Hemoglobin Concent 33.3 Mean Corpuscular Volume 87.9 Mean Platelet Volume 11.1 H Monocytes # 1.6 H Monocytes % 13.1 H Neutrophils # 7.0 Neutrophils % 58.7 Nucleated Red Blood Cells # 0.0 Nucleated Red Blood Cells % 0.0 Platelet Count 369 Potassium Level 4.0 Red Blood Count 4.40 L Red Cell Distribution Width 15.3 H Sodium Level 141 Total Bilirubin 0.6 Total Protein 6.7 White Blood Count 11.9 H Medications Medications Current Medications Ondansetron HCl (Zofran Inj) 4 mg Q6H PRN IV NAUSEA AND/OR VOMITING; Start at 18:00 Morphine Sulfate (morphine) 2 mg Q4H PRN IV PAIN LEVEL 7-10 Last administered on 10/17/16 19:41; Admin Dose 2 MG; Start 09/15/16 at 18:00 Haloperidol (Haldol) 5 mg Q6H PRN IM AGITATION Last administered on 10/19/16 17:15; Admin Dose 5 MG; Start 09/18/16 at 11:30 Famotidine (Pepcid Iv) 20 mg BID IV Last administered on 10/23/16 20:09; Admin Dose 20 MG; Start 09/19/16 at 21:00 Metoclopramide HCl (Reglan) 10 mg Q12 IV Last administered on 10/23/16 20:09; Admin Dose 10 MG; Start 09/24/16 at 11:30 Acetaminophen (Tylenol Liquid) 650 mg Q4H PRN NGT PAIN AND OR ELEVATED TEMP Last administered on 10/14/16 19:56; Admin Dose 650 MG; Start 09/28/16 at 13:30 Lisinopril (Zestril) 2.5 mg DAILY GTB Last administered on 10/23/16 09:30; Admin Dose 2.5 MG; Start 10/02/16 at 09:00 Collagenase (Santyl) 1 applic DAILY TOP Last administered on 10/23/16 09:33; Admin Dose 1 APPLIC; Start 10/08/16 at 20:00 Nystatin (Nystatin Powder) 1 applic BID TOP Last administered on 10/23/16 20:10 ; Admin Dose 1 APPLIC; Start 10/08/16 at 21:00 Collagenase (Santyl) 1 applic PRN PRN TOP WOUND CARE Last administered on 07:54; Admin Dose 1 APPLIC; Start 10/08/16 at 17:30 Lorazepam (Ativan) 2 mg Q2H PRN IV AGITATION Last administered on 10/23/16 20: 09; Admin Dose 2 MG; Start 10/16/16 at 16:00 Carvedilol (Coreg) 3.125 mg BID GTB Last administered on 10/23/16 20:10; Admin Dose 3.125 MG; Start 10/16/16 at 21:00 Fentanyl (Duragesic 50 Mcg/Hr Patch) 1 patch Q72H TRANSDERM Last administered on 10/21/16 11:43; Admin Dose 1 PATCH; Start 10/21/16 at 11:30 Apixaban 5 mg 5 mg BID PO Last administered on 10/23/16 20:09; Admin Dose 5 MG ; Start 10/23/16 at 10:00 Midazolam HCl 50 ml @ 2 mls/hr TITRATE IV ; Start 10/23/16 at 13:00 Fentanyl (Sublimaze) 100 ml @ 2.5 mls/hr TITRATE IV ; Start 10/23/16 at 16:00 Methadone HCl (Methadone) 20 mg Q6 PO Last administered on 10/23/16 18:35; Admin Dose 20 MG; Start 10/23/16 at 12:00 ELMO GATICA MD Oct 23, 2016 20:14
[2016-10-23] MEDS: FENTAnyl (DRIP) 1000 mcg/100mL 100 ML IV SCH (22:12)
[2016-10-23] MEDS: MIDAZOLAM (DRIP) 50 mg/50 mL 50 ML IV SCH ×2 (22:12→23:15)
[2016-10-24] VITALS (52 sets, daily range): BP systolic 79–158; BP diastolic 45–123; PULSE 54–141; RESP 8–29
[2016-10-24] MEDS ORDERED: NORepinephrine 8MG/250 ML (PMX 250 ML IV SCH
[2016-10-24] MEDS ORDERED: SOD CHLORIDE 0.9% 500 ML IV ONE
[2016-10-24] MEDS: METHADONE 10 MG TAB PO SCH ×4 (00:23→18:15)
[2016-10-24 06:17] LABS: RED BLOOD COUNT 3.72 10^6/ul (4.70-6.10); WHITE BLOOD COUNT 10.2 10^3/ul (4.8-10.8)
[2016-10-24 06:18] LABS: HEMATOCRIT 33.2 % (42.0-52.0); HEMOGLOBIN 10.6 g/dl (14.0-18.0); MEAN CORPUSCULAR HEMOGLOBIN 28.5 pg (29.0-33.0); MEAN CORPUSCULAR HGB CONC 31.9 g/dl (32.0-37.0); MEAN CORPUSCULAR VOLUME 89.2 fl (82.0-101.0); MEAN PLATELET VOLUME 12.2 fl (7.4-10.4); NEUTROPHILS % 60.2 % (39.0-77.0); PLATELET COUNT 414 10^3/UL (140-440); RED CELL DISTRIBUTION WIDTH 14.6 % (11.5-14.5)
[2016-10-24 06:23] LABS: BASOPHIL # 0.9 10^3/ul (0.0-0.1); BASOPHILS % 0.9 % (0.0-2.0); EOSINOPHILS # 1.3 10^3/ul (0.0-0.5); EOSINOPHILS % 12.5 % (0.0-7.0); LYMPHOCYTES # 1.4 10^3/ul (0.8-2.9); LYMPHOCYTES % 13.9 % (15.0-51.0); MONOCYTE # 1.2 10^3/ul (0.3-0.9); MONOCYTES % 11.5 % (0.0-11.0); NEUTROPHIL # 6.2 10^3/ul (1.6-7.5)
[2016-10-24 07:14] LABS: POTASSIUM 4.2 mmol/L (3.5-5.1)
[2016-10-24 07:16] LABS: CREATININE 0.51 mg/dl (0.61-1.24)
[2016-10-24 07:17] LABS: CALCIUM 8.5 mg/dl (8.4-10.2)
[2016-10-24] MEDS: LORAZEPAM 2 MG INJ IV PRN ×4 (07:36→21:32)
[2016-10-24] MEDS: APIXABAN 5 MG TABLET PO SCH ×2 (08:42→20:42)
[2016-10-24] MEDS: COLLAGENASE 30 GM TUBE TOP SCH (08:42)
[2016-10-24] MEDS: METOCLOPRAMIDE 10 MG INJ IV SCH ×2 (08:42→20:42)
[2016-10-24] MEDS: NYSTATIN 30 GM POWDER BTL TOP SCH ×2 (08:42→20:42)
[2016-10-24] MEDS: FAMOTIDINE 20 MG INJ IV SCH ×2 (08:42→20:41)
[2016-10-24] MEDS: LISINOPRIL 5 MG TAB GTB SCH (08:43)
--- NOTE | 2016-10-24 09:41 | CONS ---
Date/Time of Note Date/Time of Note DATE: 10/24/16 TIME: 09:40 Assessment/Plan Assessment/Plan Chief Complaint/Hosp Course assessment/impression - h/o sepsis, septic shock - h/o post-op fever and leukocytosis - h/o pneumonia with parapneumonic effusion. Could be started as CAP, other considerations include aspiration PNA. - h/o recurrent right pleural effusion. s/p diagnostic thoracentesis on 09/22/16. It showed glu=74 pro <2, NHT=1506. No malignancy on cytology. s/p repeat thoracentesis 10/01/16, no malignancy on cytology. R chest tube placed 10/07/16. 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 continue to monitor Pt off systemic antibiotics - the critical care time I took to care for this Pt today was from 0910 to 0940 Problems: Consultation Date/Type/Reason Admit Date/Time Sep 15, 2016 at 16:54 Initial Consult Date 09/29/16 Type of Consultation: ID Referring Provider: JAN ZHANG 24 HR Interval Summary Subjective hx not possible: pt non-verbal, pt critical, pt critical status Exam/Review of Systems Vital Signs Vitals Vital Signs Date Time Temp Pulse Resp B/P Pulse Ox O2 Delivery O2 Flow Rate FiO2 2/4/17 06:30 74 84/57 99 Mechanical Ventilator 10/24/16 05:30 14 10/24/16 05:29 30 10/24/16 04:00 98.8 Intake and Output 10/23/16 10/23/16 10/24/16 15:00 23:00 07:00 Intake Total 365 ml 485 ml 400 ml Output Total 600 ml 705 ml 315 ml Balance -235 ml -220 ml 85 ml Exam Constitutional: frail, non-verbal Psych: confusion Head: atraumatic, normocephalic Eyes: nl conjunctiva, nl lids Neck: other (trach) Respiratory: diminished breath sounds Cardiovascular: nl pulses, regular rate and rhythm Gastrointestinal: non-tender, other (GT), soft Genitourinary - Male: other (FC) Musculoskeletal: nl extremities to inspection Extremities: No edema Neurological: confused, lethargic Skin: nl turgor Results Result Diagram: 10/24/16 0400 10/24/16 0400 Results 24 hrs Laboratory Tests Test 10/24/16 04:00 Anion Gap 14 Basophils # 0.9 H Basophils % 0.9 Blood Urea Nitrogen 8 Calcium Level 8.5 Carbon Dioxide Level 30 Chloride Level 99 Creatinine 0.51 L Eosinophils # 1.3 H Eosinophils % 12.5 H Glucose Level 80 Hematocrit 33.2 L Hemoglobin 10.6 L Lymphocytes # 1.4 Lymphocytes % 13.9 L Mean Corpuscular Hemoglobin 28.5 L Mean Corpuscular Hemoglobin Concent 31.9 L Mean Corpuscular Volume 89.2 Mean Platelet Volume 12.2 H Monocytes # 1.2 H Monocytes % 11.5 H Neutrophils # 6.2 Neutrophils % 60.2 Nucleated Red Blood Cells # 0.0 Nucleated Red Blood Cells % 0.0 Platelet Count 414 Potassium Level 4.2 Red Blood Count 3.72 L Red Cell Distribution Width 14.6 H Sodium Level 139 White Blood Count 10.2 Medications Medications Current Medications Ondansetron HCl (Zofran Inj) 4 mg Q6H PRN IV NAUSEA AND/OR VOMITING; Start at 18:00 Morphine Sulfate (morphine) 2 mg Q4H PRN IV PAIN LEVEL 7-10 Last administered on 10/17/16t 19:41; Admin Dose 2 MG; Start 09/15/16 at 18:00 Haloperidol (Haldol) 5 mg Q6H PRN IM AGITATION Last administered on 10/19/16 17:15; Admin Dose 5 MG; Start 09/18/16 at 11:30 Famotidine (Pepcid Iv) 20 mg BID IV Last administered on 10/24/16 08:42; Admin Dose 20 MG; Start 09/19/16 at 21:00 Metoclopramide HCl (Reglan) 10 mg Q12 IV Last administered on 10/24/16 08:42; Admin Dose 10 MG; Start 09/24/16 at 11:30 Acetaminophen (Tylenol Liquid) 650 mg Q4H PRN NGT PAIN AND OR ELEVATED TEMP Last administered on 10/14/16 19:56; Admin Dose 650 MG; Start 09/28/16 at 13:30 Lisinopril (Zestril) 2.5 mg DAILY GTB Last administered on 10/23/16 09:30; Admin Dose 2.5 MG; Start 10/02/16 at 09:00 Collagenase (Santyl) 1 applic DAILY TOP Last administered on 10/24/16 08:42; Admin Dose 1 APPLIC; Start 10/08/16 at 20:00 Nystatin (Nystatin Powder) 1 applic BID TOP Last administered on 10/24/16 08:42 ; Admin Dose 1 APPLIC; Start 10/08/16 at 21:00 Collagenase (Santyl) 1 applic PRN PRN TOP WOUND CARE Last administered on 07:54; Admin Dose 1 APPLIC; Start 10/08/16 at 17:30 Lorazepam (Ativan) 2 mg Q2H PRN IV AGITATION Last administered on 10/24/16 07: 36; Admin Dose 2 MG; Start 10/16/16 at 16:00 Carvedilol (Coreg) 3.125 mg BID GTB Last administered on 10/23/16 20:10; Admin Dose 3.125 MG; Start 10/16/16 at 21:00 Fentanyl (Duragesic 50 Mcg/Hr Patch) 1 patch Q72H TRANSDERM Last administered on 10/21/16 11:43; Admin Dose 1 PATCH; Start 10/21/16 at 11:30 Apixaban 5 mg 5 mg BID PO Last administered on 10/24/16 08:42; Admin Dose 5 MG ; Start 10/23/16 at 10:00 Midazolam HCl 50 ml @ 2 mls/hr TITRATE IV Last administered on 10/23/16 23:15; Admin Dose 5 MLS/HR; Start 10/23/16 at 13:00 Fentanyl (Sublimaze) 100 ml @ 2.5 mls/hr TITRATE IV Last administered on 22:12; Admin Dose 50 MLS/HR; Start 10/23/16 at 16:00 Methadone HCl 20 mg 20 mg Q6 PO Last administered on 10/24/16 05:33; Admin Dose 20 MG; Start 10/23/16 at 12:00 Norepinephrine/ Dextrose (Levophed/D5W) 500 ml @ 1.87 mls/hr TITRATE IV ; Start 10/24/16 at 07:00 MIGUEL ERNST M.D. Oct 24, 2016 09:41
[2016-10-24] MEDS: FENTAnyl PATCH 50 MCG/HR TRANSDERM SCH (11:19)
--- NOTE | 2016-10-24 11:27 | PN ---
Date/Time of Note Date/Time of Note DATE: 10/24/16 TIME: 11:26 Assessment/Plan VTE Prophylaxis VTE Prophylaxis Intervention: other Lines/Catheters IV Catheter Type (from Nrsg): Central Line Central line still needed: Yes Urinary Cath still in place: Yes Reason Cath still needed: skin wounds contaminated by urine Assessment/Plan Chief Complaint/Hosp Course 1) pneumonia - intravenous antibiotics 2) pulmonary embolus - anticoagulation - oxygen 3) agitation - BZDs prn 4) respiratory failure - s/p trach placement 5) pulmonary effusion - stable Problems: Subjective 24 Hr Interval Summary Free Text/Dictation Patient has eyes open but is not verbally responsive Exam/Review of Systems Vital Signs Vitals Vital Signs Date Time Temp Pulse Resp B/P Pulse Ox O2 Delivery O2 Flow Rate FiO2 10/24/16 10:00 65 15 89/50 98 Mechanical Ventilator 10/24/16 08:00 30 10/24/16 08:00 97.7 Intake and Output 10/23/16 10/23/16 10/24/16 15:00 23:00 07:00 Intake Total 365 ml 485 ml 400 ml Output Total 600 ml 705 ml 315 ml Balance -235 ml -220 ml 85 ml Exam Constitutional: well developed Head: atraumatic, normocephalic Neck: supple Respiratory: diminished breath sounds Cardiovascular: regular rate and rhythm Gastrointestinal: non-tender, soft Extremities: normal pulses Results Result Diagram: 10/24/16 0400 10/24/16 0400 Results 24 hrs Laboratory Tests Test 10/24/16 04:00 Anion Gap 14 Basophils # 0.9 H Basophils % 0.9 Blood Urea Nitrogen 8 Calcium Level 8.5 Carbon Dioxide Level 30 Chloride Level 99 Creatinine 0.51 L Eosinophils # 1.3 H Eosinophils % 12.5 H Glucose Level 80 Hematocrit 33.2 L Hemoglobin 10.6 L Lymphocytes # 1.4 Lymphocytes % 13.9 L Mean Corpuscular Hemoglobin 28.5 L Mean Corpuscular Hemoglobin Concent 31.9 L Mean Corpuscular Volume 89.2 Mean Platelet Volume 12.2 H Monocytes # 1.2 H Monocytes % 11.5 H Neutrophils # 6.2 Neutrophils % 60.2 Nucleated Red Blood Cells # 0.0 Nucleated Red Blood Cells % 0.0 Platelet Count 414 Potassium Level 4.2 Red Blood Count 3.72 L Red Cell Distribution Width 14.6 H Sodium Level 139 White Blood Count 10.2 Medications Medications Current Medications Ondansetron HCl (Zofran Inj) 4 mg Q6H PRN IV NAUSEA AND/OR VOMITING; Start at 18:00 Morphine Sulfate (morphine) 2 mg Q4H PRN IV PAIN LEVEL 7-10 Last administered on 10/17/16 19:41; Admin Dose 2 MG; Start 09/15/16 at 18:00 Haloperidol (Haldol) 5 mg Q6H PRN IM AGITATION Last administered on 10/19/16 17:15; Admin Dose 5 MG; Start 09/18/16 at 11:30 Famotidine (Pepcid Iv) 20 mg BID IV Last administered on 10/24/16 08:42; Admin Dose 20 MG; Start 09/19/16 at 21:00 Metoclopramide HCl (Reglan) 10 mg Q12 IV Last administered on 10/24/16 08:42; Admin Dose 10 MG; Start 09/24/16 at 11:30 Acetaminophen (Tylenol Liquid) 650 mg Q4H PRN NGT PAIN AND OR ELEVATED TEMP Last administered on 10/14/16 19:56; Admin Dose 650 MG; Start 09/28/16 at 13:30 Lisinopril (Zestril) 2.5 mg DAILY GTB Last administered on 10/23/16 09:30; Admin Dose 2.5 MG; Start 10/02/16 at 09:00 Collagenase (Santyl) 1 applic DAILY TOP Last administered on 10/24/16 08:42; Admin Dose 1 APPLIC; Start 10/08/16 at 20:00 Nystatin (Nystatin Powder) 1 applic BID TOP Last administered on 10/24/16 08:42 ; Admin Dose 1 APPLIC; Start 10/08/16 at 21:00 Collagenase (Santyl) 1 applic PRN PRN TOP WOUND CARE Last administered on 07:54; Admin Dose 1 APPLIC; Start 10/08/16 at 17:30 Lorazepam (Ativan) 2 mg Q2H PRN IV AGITATION Last administered on 10/24/16 10: 56; Admin Dose 2 MG; Start 10/16/16 at 16:00 Carvedilol (Coreg) 3.125 mg BID GTB Last administered on 10/23/16 20:10; Admin Dose 3.125 MG; Start 10/16/16 at 21:00 Fentanyl (Duragesic 50 Mcg/Hr Patch) 1 patch Q72H TRANSDERM Last administered on 10/24/16 11:19; Admin Dose 1 PATCH; Start 10/21/16 at 11:30 Apixaban 5 mg 5 mg BID PO Last administered on 10/24/16 08:42; Admin Dose 5 MG ; Start 10/23/16 at 10:00 Midazolam HCl 50 ml @ 2 mls/hr TITRATE IV Last administered on 10/23/16 23:15; Admin Dose 5 MLS/HR; Start 10/23/16 at 13:00 Fentanyl (Sublimaze) 100 ml @ 2.5 mls/hr TITRATE IV Last administered on 22:12; Admin Dose 50 MLS/HR; Start 10/23/16 at 16:00 Methadone HCl 20 mg 20 mg Q6 PO Last administered on 10/24/16 11:25; Admin Dose 20 MG; Start 10/23/16 at 12:00 Norepinephrine/ Dextrose (Levophed/D5W) 500 ml @ 1.87 mls/hr TITRATE IV ; Start 10/24/16 at 07:00 DREW MOLINA Oct 24, 2016 11:27
--- NOTE | 2016-10-24 11:46 | PN ---
Date/Time of Note Date/Time of Note DATE: 10/24/16 TIME: 11:45 Assessment/Plan Lines/Catheters IV Catheter Type (from Nrsg): Central Line Tang in Place (from Nrsg): Yes Assessment/Plan Chief Complaint/Hosp Course IMPRESSION 1. Pulmonary embolism. 2. Pneumonia. 3 Pleural effusion RECOMMENDATIONS: SP CT placement SP Trach will continue vent support trach care Problems: Subjective 24 Hr Interval Summary Constitutional: improved Pain Control: mild Exam/Review of Systems Vital Signs Vitals Vital Signs Date Time Temp Pulse Resp B/P Pulse Ox O2 Delivery O2 Flow Rate FiO2 10/24/16 11:10 92 18 100 30 10/24/16 10:00 89/50 Mechanical Ventilator 10/24/16 08:00 97.7 Intake and Output 10/23/16 10/23/16 10/24/16 15:00 23:00 07:00 Intake Total 365 ml 485 ml 400 ml Output Total 600 ml 705 ml 315 ml Balance -235 ml -220 ml 85 ml Exam ENMT: mucosa pink and moist, nl external ears & nose, nl lips & teeth, nl nasal mucosa & septum Neck: non-tender, supple Respiratory: clear to auscultation, normal air movement Cardiovascular: nl pulses, regular rate and rhythm Results Result Diagram: 10/24/1639910/24/16399 YOUNG HAY MD Oct 24, 2016 11:46
--- NOTE | 2016-10-24 11:51 | CONS ---
Date/Time of Note Date/Time of Note DATE: 10/24/16 TIME: 11:49 Consult Date/Type/Reason Admit Date/Time Sep 15, 2016 at 16:54 Type of Consultation: pulmonary Ordering Provider: JAN ZHANG Subjective Patient has intermittent agitation Continues mechanical ventilation Off vasopressor support Objective Vital Signs Date Time Temp Pulse Resp B/P Pulse Ox O2 Delivery O2 Flow Rate FiO2 10/24/16 11:10 92 18 100 30 10/24/16 10:00 89/50 Mechanical Ventilator 10/24/16 08:00 97.7 Intake and Output 10/23/16 10/23/16 10/24/16 15:00 23:00 07:00 Intake Total 365 ml 485 ml 400 ml Output Total 600 ml 705 ml 315 ml Balance -235 ml -220 ml 85 ml PHYSICAL EXAMINATION GENERAL: Chronically ill-appearing gentleman appears comfortable at rest no acute distress VITAL SIGNS: see below. HEENT: Pupils equal, round, and reactive to light. Tracheostomy site clean and intact. CARDIAC: S1, S2, CHEST: Diminished air entry bilaterally. ABDOMEN: Mildly distended. No bowel sounds. EXTREMITIES: No cyanosis, clubbing edema +1 NEUROLOGIC: No focal deficits. Results/Medications Result Diagram: 10/24/16 0400 10/24/16 0400 Results 24 hrs Laboratory Tests Test 10/24/16 04:00 Anion Gap 14 Basophils # 0.9 H Basophils % 0.9 Blood Urea Nitrogen 8 Calcium Level 8.5 Carbon Dioxide Level 30 Chloride Level 99 Creatinine 0.51 L Eosinophils # 1.3 H Eosinophils % 12.5 H Glucose Level 80 Hematocrit 33.2 L Hemoglobin 10.6 L Lymphocytes # 1.4 Lymphocytes % 13.9 L Mean Corpuscular Hemoglobin 28.5 L Mean Corpuscular Hemoglobin Concent 31.9 L Mean Corpuscular Volume 89.2 Mean Platelet Volume 12.2 H Monocytes # 1.2 H Monocytes % 11.5 H Neutrophils # 6.2 Neutrophils % 60.2 Nucleated Red Blood Cells # 0.0 Nucleated Red Blood Cells % 0.0 Platelet Count 414 Potassium Level 4.2 Red Blood Count 3.72 L Red Cell Distribution Width 14.6 H Sodium Level 139 White Blood Count 10.2 Medications Current Medications Ondansetron HCl (Zofran Inj) 4 mg Q6H PRN IV NAUSEA AND/OR VOMITING; Start at 18:00 Morphine Sulfate (morphine) 2 mg Q4H PRN IV PAIN LEVEL 7-10 Last administered on 10/17/16 19:41; Admin Dose 2 MG; Start 09/15/16 at 18:00 Haloperidol (Haldol) 5 mg Q6H PRN IM AGITATION Last administered on 10/19/16 17:15; Admin Dose 5 MG; Start 09/18/16 at 11:30 Famotidine (Pepcid Iv) 20 mg BID IV Last administered on 10/24/16 08:42; Admin Dose 20 MG; Start 09/19/16 at 21:00 Metoclopramide HCl (Reglan) 10 mg Q12 IV Last administered on 10/24/16 08:42; Admin Dose 10 MG; Start 09/24/16 at 11:30 Acetaminophen (Tylenol Liquid) 650 mg Q4H PRN NGT PAIN AND OR ELEVATED TEMP Last administered on 10/14/16 19:56; Admin Dose 650 MG; Start 09/28/16 at 13:30 Lisinopril (Zestril) 2.5 mg DAILY GTB Last administered on 10/23/16 09:30; Admin Dose 2.5 MG; Start 10/02/16 at 09:00 Collagenase (Santyl) 1 applic DAILY TOP Last administered on 10/24/16 08:42; Admin Dose 1 APPLIC; Start 10/08/16 at 20:00 Nystatin (Nystatin Powder) 1 applic BID TOP Last administered on 10/24/16 08:42 ; Admin Dose 1 APPLIC; Start 10/08/16 at 21:00 Collagenase (Santyl) 1 applic PRN PRN TOP WOUND CARE Last administered on 07:54; Admin Dose 1 APPLIC; Start 10/08/16 at 17:30 Lorazepam (Ativan) 2 mg Q2H PRN IV AGITATION Last administered on 10/24/16 10: 56; Admin Dose 2 MG; Start 10/16/16 at 16:00 Carvedilol (Coreg) 3.125 mg BID GTB Last administered on 10/23/16 20:10; Admin Dose 3.125 MG; Start 10/16/16 at 21:00 Fentanyl (Duragesic 50 Mcg/Hr Patch) 1 patch Q72H TRANSDERM Last administered on 10/24/16 11:19; Admin Dose 1 PATCH; Start 10/21/16 at 11:30 Apixaban 5 mg 5 mg BID PO Last administered on 10/24/16 08:42; Admin Dose 5 MG ; Start 10/23/16 at 10:00 Midazolam HCl 50 ml @ 2 mls/hr TITRATE IV Last administered on 10/23/16 23:15; Admin Dose 5 MLS/HR; Start 10/23/16 at 13:00 Fentanyl (Sublimaze) 100 ml @ 2.5 mls/hr TITRATE IV Last administered on 22:12; Admin Dose 50 MLS/HR; Start 10/23/16 at 16:00 Methadone HCl 20 mg 20 mg Q6 PO Last administered on 10/24/16 11:25; Admin Dose 20 MG; Start 10/23/16 at 12:00 Norepinephrine/ Dextrose (Levophed/D5W) 500 ml @ 1.87 mls/hr TITRATE IV ; Start 10/24/16 at 07:00 Assessment/Plan Chief Complaint/Hosp Course IMPRESSION: 1. Hypoxemic respiratory failure/vent dependence 2. Right sided pneumonia with complicated parapneumonic status post decortication and chest tube placement 3. Acute pulmonary emboli 4. Encephalopathy, likely toxic metabolic. 5. History of polysubstance abuse PLAN: 1. Continue mechanical ventilation tracheostomy care 2. Continue to feeding as tolerated 3. continue anticoagulation for pulmonary embolus 4. Continue Free H20 Consider transfer to telemetry if patient remains stable Problems: AM[facility] STONE MD, [facility] Oct 24, 2016 11:50
--- NOTE | 2016-10-24 12:05 | CONS ---
Date/Time of Note Date/Time of Note DATE: 10/24/16 TIME: 12:04 Assessment/Plan Assessment/Plan Additional Assessment/Plan Impression: 1. dysphagia secondary to encephalopathy, S/P peg,tolerating feeding 2. Right-sided pneumonia with complicated parapneumonic effusion, status post thoracentesis,s/p R chest tube placement. 3. Acute pulmonary emboli. 4. 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 5. Encephalopathy 6. Sepsis secondary to #2, resolved. Recommendation: 1.s/p trach placement 2. continue tube feeds 3. continue other supportive cares from primary and other consultants. 4.s/p PEG placement,tolerating feeding well 5.antibiotics as per ID 6.neuro consult Consultation Date/Type/Reason Admit Date/Time Sep 15, 2016 at 16:54 Initial Consult Date 09/29/16 Type of Consultation: pulmonary Referring Provider: JAN ZHANG 24 HR Interval Summary Subjective hx not possible: pt critical Exam/Review of Systems Vital Signs Vitals Vital Signs Date Time Temp Pulse Resp B/P Pulse Ox O2 Delivery O2 Flow Rate FiO2 10/24/16 11:10 92 18 100 30 10/24/16 10:00 89/50 Mechanical Ventilator 10/24/16 08:00 97.7 Intake and Output 10/23/16 10/23/16 10/24/16 15:00 23:00 07:00 Intake Total 365 ml 485 ml 400 ml Output Total 600 ml 705 ml 315 ml Balance -235 ml -220 ml 85 ml Exam Respiratory: clear to auscultation, normal air movement Cardiovascular: nl pulses, regular rate and rhythm Gastrointestinal: nl liver, spleen, non-tender, soft Extremities: normal pulses Neurological: lethargic Results Result Diagram: 10/24/16 0400 10/24/16 0400 Results 24 hrs Laboratory Tests Test 10/24/16 04:00 Anion Gap 14 Basophils # 0.9 H Basophils % 0.9 Blood Urea Nitrogen 8 Calcium Level 8.5 Carbon Dioxide Level 30 Chloride Level 99 Creatinine 0.51 L Eosinophils # 1.3 H Eosinophils % 12.5 H Glucose Level 80 Hematocrit 33.2 L Hemoglobin 10.6 L Lymphocytes # 1.4 Lymphocytes % 13.9 L Mean Corpuscular Hemoglobin 28.5 L Mean Corpuscular Hemoglobin Concent 31.9 L Mean Corpuscular Volume 89.2 Mean Platelet Volume 12.2 H Monocytes # 1.2 H Monocytes % 11.5 H Neutrophils # 6.2 Neutrophils % 60.2 Nucleated Red Blood Cells # 0.0 Nucleated Red Blood Cells % 0.0 Platelet Count 414 Potassium Level 4.2 Red Blood Count 3.72 L Red Cell Distribution Width 14.6 H Sodium Level 139 White Blood Count 10.2 Medications Medications Current Medications Ondansetron HCl (Zofran Inj) 4 mg Q6H PRN IV NAUSEA AND/OR VOMITING; Start at 18:00 Morphine Sulfate (morphine) 2 mg Q4H PRN IV PAIN LEVEL 7-10 Last administered on 10/17/16 19:41; Admin Dose 2 MG; Start 09/15/16 at 18:00 Haloperidol (Haldol) 5 mg Q6H PRN IM AGITATION Last administered on 10/19/16 17:15; Admin Dose 5 MG; Start 09/18/16 at 11:30 Famotidine (Pepcid Iv) 20 mg BID IV Last administered on 10/24/16 08:42; Admin Dose 20 MG; Start 09/19/16 at 21:00 Metoclopramide HCl (Reglan) 10 mg Q12 IV Last administered on 10/24/16 08:42; Admin Dose 10 MG; Start 09/24/16 at 11:30 Acetaminophen (Tylenol Liquid) 650 mg Q4H PRN NGT PAIN AND OR ELEVATED TEMP Last administered on 10/14/16 19:56; Admin Dose 650 MG; Start 09/28/16 at 13:30 Lisinopril (Zestril) 2.5 mg DAILY GTB Last administered on 10/23/16 09:30; Admin Dose 2.5 MG; Start 10/02/16 at 09:00 Collagenase (Santyl) 1 applic DAILY TOP Last administered on 10/24/16 08:42; Admin Dose 1 APPLIC; Start 10/08/16 at 20:00 Nystatin (Nystatin Powder) 1 applic BID TOP Last administered on 10/24/16 08:42 ; Admin Dose 1 APPLIC; Start 10/08/16 at 21:00 Collagenase (Santyl) 1 applic PRN PRN TOP WOUND CARE Last administered on 07:54; Admin Dose 1 APPLIC; Start 10/08/16 at 17:30 Lorazepam (Ativan) 2 mg Q2H PRN IV AGITATION Last administered on 10/24/16 10: 56; Admin Dose 2 MG; Start 10/16/16 at 16:00 Carvedilol (Coreg) 3.125 mg BID GTB Last administered on 10/23/16 20:10; Admin Dose 3.125 MG; Start 10/16/16 at 21:00 Fentanyl (Duragesic 50 Mcg/Hr Patch) 1 patch Q72H TRANSDERM Last administered on 10/24/16 11:19; Admin Dose 1 PATCH; Start 10/21/16 at 11:30 Apixaban 5 mg 5 mg BID PO Last administered on 10/24/16 08:42; Admin Dose 5 MG ; Start 10/23/16 at 10:00 Midazolam HCl 50 ml @ 2 mls/hr TITRATE IV Last administered on 10/23/16 23:15; Admin Dose 5 MLS/HR; Start 10/23/16 at 13:00 Fentanyl (Sublimaze) 100 ml @ 2.5 mls/hr TITRATE IV Last administered on 22:12; Admin Dose 50 MLS/HR; Start 10/23/16 at 16:00 Methadone HCl 20 mg 20 mg Q6 PO Last administered on 10/24/16 11:25; Admin Dose 20 MG; Start 10/23/16 at 12:00 Norepinephrine/ Dextrose (Levophed/D5W) 500 ml @ 1.87 mls/hr TITRATE IV ; Start 10/24/16 at 07:00 ELMO GATICA MD Oct 24, 2016 12:05
[2016-10-25] VITALS (47 sets, daily range): BP systolic 80–146; BP diastolic 45–109; PULSE 54–157; RESP 9–26
[2016-10-25] MEDS: METHADONE 10 MG TAB PO SCH ×4 (00:06→17:30)
[2016-10-25] MEDS: morphine 2 MG INJ IV PRN ×2 (01:25→16:39)
[2016-10-25] MEDS: FENTAnyl (DRIP) 1000 mcg/100mL 100 ML IV SCH (02:51)
[2016-10-25] MEDS: MIDAZOLAM (DRIP) 50 mg/50 mL 50 ML IV SCH (03:57)
[2016-10-25 06:37] LABS: BASOPHILS % 0.3 % (0.0-2.0); EOSINOPHILS # 1.6 10^3/ul (0.0-0.5); EOSINOPHILS % 13.6 % (0.0-7.0); HEMATOCRIT 32.1 % (42.0-52.0); HEMOGLOBIN 10.7 g/dl (14.0-18.0); LYMPHOCYTES # 1.7 10^3/ul (0.8-2.9); LYMPHOCYTES % 14.7 % (15.0-51.0); MEAN CORPUSCULAR HEMOGLOBIN 29.1 pg (29.0-33.0); MEAN CORPUSCULAR HGB CONC 33.2 g/dl (32.0-37.0); MEAN CORPUSCULAR VOLUME 87.5 fl (82.0-101.0); MEAN PLATELET VOLUME 10.1 fl (7.4-10.4); MONOCYTE # 1.1 10^3/ul (0.3-0.9); MONOCYTES % 9.5 % (0.0-11.0); NEUTROPHIL # 7.1 10^3/ul (1.6-7.5); NEUTROPHILS % 61.9 % (39.0-77.0); PLATELET COUNT 435 10^3/UL (140-440); RED BLOOD COUNT 3.66 10^6/ul (4.70-6.10); RED CELL DISTRIBUTION WIDTH 14.9 % (11.5-14.5); UNCORRECTED WBC 11.5 10^3/ul (4.8-10.8); WHITE BLOOD COUNT 11.5 10^3/ul (4.8-10.8)
[2016-10-25 06:47] LABS: CONDITION 1; LH ANALYZER COMMENTS 1
[2016-10-25 06:53] LABS: POTASSIUM 3.6 mmol/L (3.5-5.1)
[2016-10-25 06:55] LABS: CREATININE 0.52 mg/dl (0.61-1.24)
[2016-10-25 06:56] LABS: CALCIUM 8.7 mg/dl (8.4-10.2)
[2016-10-25] MEDS: APIXABAN 5 MG TABLET PO SCH ×2 (09:10→20:22)
[2016-10-25] MEDS: LISINOPRIL 5 MG TAB GTB SCH (09:11)
[2016-10-25] MEDS: METOCLOPRAMIDE 10 MG INJ IV SCH ×2 (09:11→20:23)
[2016-10-25] MEDS: COLLAGENASE 30 GM TUBE TOP SCH (09:12)
[2016-10-25] MEDS: NYSTATIN 30 GM POWDER BTL TOP SCH ×2 (09:12→20:23)
[2016-10-25] MEDS: FAMOTIDINE 20 MG INJ IV SCH ×2 (09:15→20:23)
--- NOTE | 2016-10-25 09:38 | CONS ---
Date/Time of Note Date/Time of Note DATE: 10/25/16 TIME: 09:37 Assessment/Plan Assessment/Plan Chief Complaint/Hosp Course assessment/impression - h/o sepsis, septic shock - h/o post-op fever and leukocytosis - h/o pneumonia with parapneumonic effusion. Could be started as CAP, other considerations include aspiration PNA. - h/o recurrent right pleural effusion. s/p diagnostic thoracentesis on 09/22/16. It showed glu=74 pro <2, WHS=[id number]. No malignancy on cytology. s/p repeat thoracentesis 10/01/16, no malignancy on cytology. R chest tube placed 10/07/16. 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) - h/o transaminitis, possibly shock liver, improved - h/o drug rash likely d/t pip/tazo, resolving - antimicrobial history: ashlyn (09/19/16-10/04/16, 10/08/16-10/10/16), azithromycin (10/02/16-10/06/16), pip/tazo (09/29/16-10/08/16), Tamiflu (10/02/16-10/08/16), ashlyn - negative results: rapid influenza screen, PPD, legionella antigen, mycoplasma pneumoniae, chlamydia pneumoniae serology, and respiratory viral panel; AFB smear (09/29, 09/30, 10/01, 10/08, 10/13) recommendations: - continue to monitor Pt off systemic antibiotics - ID consult team will round on this Pt as needed - the critical care time I took to care for this Pt today was from 0930 to 1000 Problems: Consultation Date/Type/Reason Admit Date/Time Sep 15, 2016 at 16:54 Initial Consult Date 09/29/16 Type of Consultation: id Referring Provider: JAN ZHANG 24 HR Interval Summary Subjective hx not possible: pt non-verbal, pt critical, pt critical status Exam/Review of Systems Vital Signs Vitals Vital Signs Date Time Temp Pulse Resp B/P Pulse Ox O2 Delivery O2 Flow Rate FiO2 10/25/16 09:00 107 21 125/86 97 Mechanical Ventilator 10/25/16 08:00 98.0 10/25/16 04:54 30 Intake and Output 10/24/16 10/24/16 10/25/16 15:00 23:00 07:00 Intake Total 15 ml 200 ml 616 ml Output Total 430 ml 560 ml 410 ml Balance -415 ml -360 ml 206 ml Exam Constitutional: non-verbal Psych: confusion Head: atraumatic, normocephalic Eyes: nl lids ENMT: nl external ears & nose, nl nasal mucosa & septum Neck: other (tracg) Respiratory: crackles/rales Cardiovascular: nl pulses, regular rate and rhythm Gastrointestinal: non-tender, other (T), soft Genitourinary - Male: other (FC) Musculoskeletal: nl extremities to inspection Extremities: No edema Neurological: confused, lethargic Skin: No rash or lesions Results Result Diagram: 10/25/16 0600 10/25/16 0600 Results 24 hrs Laboratory Tests Test 10/25/16 06:00 Anion Gap 12 Basophils # 0.0 Basophils % 0.3 Blood Morphology Comment Blood Urea Nitrogen 8 Calcium Level 8.7 Carbon Dioxide Level 32 H Chloride Level 100 Creatinine 0.52 L Eosinophils # 1.6 H Eosinophils % 13.6 H Glucose Level 77 Hematocrit 32.1 L Hemoglobin 10.7 L Lymphocytes # 1.7 Lymphocytes % 14.7 L Mean Corpuscular Hemoglobin 29.1 Mean Corpuscular Hemoglobin Concent 33.2 Mean Corpuscular Volume 87.5 Mean Platelet Volume 10.1 Monocytes # 1.1 H Monocytes % 9.5 Neutrophils # 7.1 Neutrophils % 61.9 Nucleated Red Blood Cells # 0.0 Nucleated Red Blood Cells % 0.0 Platelet Count 435 Potassium Level 3.6 Red Blood Count 3.66 L Red Cell Distribution Width 14.9 H Sodium Level 140 White Blood Count 11.5 H Medications Medications Current Medications Ondansetron HCl (Zofran Inj) 4 mg Q6H PRN IV NAUSEA AND/OR VOMITING; Start at 18:00 Morphine Sulfate (morphine) 2 mg Q4H PRN IV PAIN LEVEL 7-10 Last administered on 10/25/16t 01:25; Admin Dose 2 MG; Start 09/15/16 at 18:00 Haloperidol (Haldol) 5 mg Q6H PRN IM AGITATION Last administered on 10/19/16 17:15; Admin Dose 5 MG; Start 09/18/16 at 11:30 Famotidine (Pepcid Iv) 20 mg BID IV Last administered on 10/25/16 09:15; Admin Dose 20 MG; Start 09/19/16 at 21:00 Metoclopramide HCl (Reglan) 10 mg Q12 IV Last administered on 10/25/16 09:11; Admin Dose 10 MG; Start 09/24/16 at 11:30 Acetaminophen (Tylenol Liquid) 650 mg Q4H PRN NGT PAIN AND OR ELEVATED TEMP Last administered on 10/14/16 19:56; Admin Dose 650 MG; Start 09/28/16 at 13:30 Lisinopril (Zestril) 2.5 mg DAILY GTB Last administered on 10/25/16 09:11; Admin Dose 2.5 MG; Start 10/02/16 at 09:00 Collagenase (Santyl) 1 applic DAILY TOP Last administered on 10/25/16 09:12; Admin Dose 1 APPLIC; Start 10/08/16 at 20:00 Nystatin (Nystatin Powder) 1 applic BID TOP Last administered on 10/25/16 09:12 ; Admin Dose 1 APPLIC; Start 10/08/16 at 21:00 Collagenase (Santyl) 1 applic PRN PRN TOP WOUND CARE Last administered on 07:54; Admin Dose 1 APPLIC; Start 10/08/16 at 17:30 Lorazepam (Ativan) 2 mg Q2H PRN IV AGITATION Last administered on 10/24/16 21: 32; Admin Dose 2 MG; Start 10/16/16 at 16:00 Carvedilol (Coreg) 3.125 mg BID GTB Last administered on 10/25/16 09:10; Admin Dose 3.125 MG; Start 10/16/16 at 21:00 Fentanyl (Duragesic 50 Mcg/Hr Patch) 1 patch Q72H TRANSDERM Last administered on 10/24/16 11:19; Admin Dose 1 PATCH; Start 10/21/16 at 11:30 Apixaban 5 mg 5 mg BID PO Last administered on 10/25/16 09:10; Admin Dose 5 MG ; Start 10/23/16 at 10:00 Midazolam HCl 50 ml @ 2 mls/hr TITRATE IV Last administered on 10/25/16 03:57; Admin Dose 5 MLS/HR; Start 10/23/16 at 13:00 Fentanyl (Sublimaze) 100 ml @ 2.5 mls/hr TITRATE IV Last administered on 02:51; Admin Dose 50 MLS/HR; Start 10/23/16 at 16:00 Methadone HCl 20 mg 20 mg Q6 PO Last administered on 10/25/16 05:32; Admin Dose 20 MG; Start 10/23/16 at 12:00 Norepinephrine/ Dextrose (Levophed/D5W) 500 ml @ 1.87 mls/hr TITRATE IV ; Start 10/24/16 at 07:00 MIGUEL ERNST M.D. Oct 25, 2016 09:38
--- NOTE | 2016-10-25 10:49 | PN ---
Date/Time of Note Date/Time of Note DATE: 10/25/16 TIME: 10:49 Assessment/Plan Lines/Catheters IV Catheter Type (from Nrsg): Central Line Tang in Place (from Nrsg): Yes Assessment/Plan Chief Complaint/Hosp Course IMPRESSION 1. Pulmonary embolism. 2. Pneumonia. 3 Pleural effusion RECOMMENDATIONS: SP CT placement SP Trach will continue vent support trach care Problems: Subjective 24 Hr Interval Summary Constitutional: improved Pain Control: mild Exam/Review of Systems Vital Signs Vitals Vital Signs Date Time Temp Pulse Resp B/P Pulse Ox O2 Delivery O2 Flow Rate FiO2 10/25/16 09:00 107 21 125/86 97 Mechanical Ventilator 10/25/16 08:00 98.0 10/25/16 08:00 30 Intake and Output 10/24/16 10/24/16 10/25/16 15:00 23:00 07:00 Intake Total 15 ml 200 ml 616 ml Output Total 430 ml 560 ml 410 ml Balance -415 ml -360 ml 206 ml Exam Eyes: No EOMI, No PERRL, No fundi, disc, No icteric, No nl conjunctiva, No nl lids, No nl sclera, No other Neck: non-tender, supple Respiratory: clear to auscultation, normal air movement Cardiovascular: nl pulses, regular rate and rhythm Results Result Diagram: 10/25/16 0610/25/16 06 MALEYOUNG DHALIWAL MD Oct 25, 2016 10:49
--- NOTE | 2016-10-25 10:50 | PN ---
Date/Time of Note Date/Time of Note DATE: 10/25/16 TIME: 10:49 Assessment/Plan VTE Prophylaxis VTE Prophylaxis Intervention: other Lines/Catheters IV Catheter Type (from Nrsg): Central Line Central line still needed: Yes Urinary Cath still in place: Yes Reason Cath still needed: skin wounds contaminated by urine Assessment/Plan Chief Complaint/Hosp Course 1) pneumonia - intravenous antibiotics 2) pulmonary embolus - anticoagulation - oxygen 3) agitation - BZDs prn 4) respiratory failure - s/p trach placement 5) pulmonary effusion - stable Problems: Subjective 24 Hr Interval Summary Free Text/Dictation Patient has eyes open, trach in place Exam/Review of Systems Vital Signs Vitals Vital Signs Date Time Temp Pulse Resp B/P Pulse Ox O2 Delivery O2 Flow Rate FiO2 10/25/16 09:00 107 21 125/86 97 Mechanical Ventilator 10/25/16 08:00 98.0 10/25/16 08:00 30 Intake and Output 10/24/16 10/24/16 10/25/16 15:00 23:00 07:00 Intake Total 15 ml 200 ml 616 ml Output Total 430 ml 560 ml 410 ml Balance -415 ml -360 ml 206 ml Exam Constitutional: well developed Head: atraumatic, normocephalic Neck: supple Respiratory: diminished breath sounds Cardiovascular: regular rate and rhythm Gastrointestinal: non-tender, soft Results Result Diagram: 10/25/16 0600 10/25/16 0600 Results 24 hrs Laboratory Tests Test 10/25/16 06:00 Anion Gap 12 Basophils # 0.0 Basophils % 0.3 Blood Morphology Comment Blood Urea Nitrogen 8 Calcium Level 8.7 Carbon Dioxide Level 32 H Chloride Level 100 Creatinine 0.52 L Eosinophils # 1.6 H Eosinophils % 13.6 H Glucose Level 77 Hematocrit 32.1 L Hemoglobin 10.7 L Lymphocytes # 1.7 Lymphocytes % 14.7 L Mean Corpuscular Hemoglobin 29.1 Mean Corpuscular Hemoglobin Concent 33.2 Mean Corpuscular Volume 87.5 Mean Platelet Volume 10.1 Monocytes # 1.1 H Monocytes % 9.5 Neutrophils # 7.1 Neutrophils % 61.9 Nucleated Red Blood Cells # 0.0 Nucleated Red Blood Cells % 0.0 Platelet Count 435 Potassium Level 3.6 Red Blood Count 3.66 L Red Cell Distribution Width 14.9 H Sodium Level 140 White Blood Count 11.5 H Medications Medications Current Medications Ondansetron HCl (Zofran Inj) 4 mg Q6H PRN IV NAUSEA AND/OR VOMITING; Start at 18:00 Morphine Sulfate (morphine) 2 mg Q4H PRN IV PAIN LEVEL 7-10 Last administered on 10/25/16 01:25; Admin Dose 2 MG; Start 09/15/16 at 18:00 Haloperidol (Haldol) 5 mg Q6H PRN IM AGITATION Last administered on 10/19/16 17:15; Admin Dose 5 MG; Start 09/18/16 at 11:30 Famotidine (Pepcid Iv) 20 mg BID IV Last administered on 10/25/16 09:15; Admin Dose 20 MG; Start 09/19/16 at 21:00 Metoclopramide HCl (Reglan) 10 mg Q12 IV Last administered on 10/25/16 09:11; Admin Dose 10 MG; Start 09/24/16 at 11:30 Acetaminophen (Tylenol Liquid) 650 mg Q4H PRN NGT PAIN AND OR ELEVATED TEMP Last administered on 10/14/16 19:56; Admin Dose 650 MG; Start 09/28/16 at 13:30 Lisinopril (Zestril) 2.5 mg DAILY GTB Last administered on 10/25/16 09:11; Admin Dose 2.5 MG; Start 10/02/16 at 09:00 Collagenase (Santyl) 1 applic DAILY TOP Last administered on 10/25/16 09:12; Admin Dose 1 APPLIC; Start 10/08/16 at 20:00 Nystatin (Nystatin Powder) 1 applic BID TOP Last administered on 10/25/16 09:12 ; Admin Dose 1 APPLIC; Start 10/08/16 at 21:00 Collagenase (Santyl) 1 applic PRN PRN TOP WOUND CARE Last administered on 07:54; Admin Dose 1 APPLIC; Start 10/08/16 at 17:30 Lorazepam (Ativan) 2 mg Q2H PRN IV AGITATION Last administered on 10/24/16 21: 32; Admin Dose 2 MG; Start 10/16/16 at 16:00 Carvedilol (Coreg) 3.125 mg BID GTB Last administered on 10/25/16 09:10; Admin Dose 3.125 MG; Start 10/16/16 at 21:00 Fentanyl (Duragesic 50 Mcg/Hr Patch) 1 patch Q72H TRANSDERM Last administered on 10/24/16 11:19; Admin Dose 1 PATCH; Start 10/21/16 at 11:30 Apixaban 5 mg 5 mg BID PO Last administered on 10/25/16 09:10; Admin Dose 5 MG ; Start 10/23/16 at 10:00 Midazolam HCl 50 ml @ 2 mls/hr TITRATE IV Last administered on 10/25/16 03:57; Admin Dose 5 MLS/HR; Start 10/23/16 at 13:00 Fentanyl (Sublimaze) 100 ml @ 2.5 mls/hr TITRATE IV Last administered on 02:51; Admin Dose 50 MLS/HR; Start 10/23/16 at 16:00 Methadone HCl 20 mg 20 mg Q6 PO Last administered on 10/25/16 05:32; Admin Dose 20 MG; Start 10/23/16 at 12:00 Norepinephrine/ Dextrose (Levophed/D5W) 500 ml @ 1.87 mls/hr TITRATE IV ; Start 10/24/16 at 07:00 DREW MOLINA Oct 25, 2016 10:50
--- NOTE | 2016-10-25 12:51 | CONS ---
Date/Time of Note Date/Time of Note DATE: 10/25/16 TIME: 12:50 Consult Date/Type/Reason Admit Date/Time Sep 15, 2016 at 16:54 Type of Consultation: pulmonary Ordering Provider: JAN ZHANG Subjective Patient remains awake alert oriented this morning HEMODYNAMICALLY stable no respiratory distress No significant agitation Objective Vital Signs Date Time Temp Pulse Resp B/P Pulse Ox O2 Delivery O2 Flow Rate FiO2 10/25/16 12:00 98.6 70 16 107/83 99 Mechanical Ventilator 10/25/16 11:05 30 Intake and Output 10/24/16 10/24/16 10/25/16 15:00 23:00 07:00 Intake Total 15 ml 200 ml 616 ml Output Total 430 ml 560 ml 410 ml Balance -415 ml -360 ml 206 ml PHYSICAL EXAMINATION GENERAL: Chronically ill-appearing gentleman appears comfortable at rest no acute distress VITAL SIGNS: see below. HEENT: Pupils equal, round, and reactive to light. Tracheostomy site clean and intact. CARDIAC: S1, S2, CHEST: Diminished air entry bilaterally. ABDOMEN: Mildly distended. No bowel sounds. EXTREMITIES: No cyanosis, clubbing edema +1 NEUROLOGIC: No focal deficits. Results/Medications Result Diagram: 10/25/16 0600 10/25/16 0600 Results 24 hrs Laboratory Tests Test 10/25/16 06:00 Anion Gap 12 Basophils # 0.0 Basophils % 0.3 Blood Morphology Comment Blood Urea Nitrogen 8 Calcium Level 8.7 Carbon Dioxide Level 32 H Chloride Level 100 Creatinine 0.52 L Eosinophils # 1.6 H Eosinophils % 13.6 H Glucose Level 77 Hematocrit 32.1 L Hemoglobin 10.7 L Lymphocytes # 1.7 Lymphocytes % 14.7 L Mean Corpuscular Hemoglobin 29.1 Mean Corpuscular Hemoglobin Concent 33.2 Mean Corpuscular Volume 87.5 Mean Platelet Volume 10.1 Monocytes # 1.1 H Monocytes % 9.5 Neutrophils # 7.1 Neutrophils % 61.9 Nucleated Red Blood Cells # 0.0 Nucleated Red Blood Cells % 0.0 Platelet Count 435 Potassium Level 3.6 Red Blood Count 3.66 L Red Cell Distribution Width 14.9 H Sodium Level 140 White Blood Count 11.5 H Medications Current Medications Ondansetron HCl (Zofran Inj) 4 mg Q6H PRN IV NAUSEA AND/OR VOMITING; Start at 18:00 Morphine Sulfate (morphine) 2 mg Q4H PRN IV PAIN LEVEL 7-10 Last administered on 10/25/16 01:25; Admin Dose 2 MG; Start 09/15/16 at 18:00 Haloperidol (Haldol) 5 mg Q6H PRN IM AGITATION Last administered on 10/19/16 17:15; Admin Dose 5 MG; Start 09/18/16 at 11:30 Famotidine (Pepcid Iv) 20 mg BID IV Last administered on 10/25/16 09:15; Admin Dose 20 MG; Start 09/19/16 at 21:00 Metoclopramide HCl (Reglan) 10 mg Q12 IV Last administered on 10/25/16 09:11; Admin Dose 10 MG; Start 09/24/16 at 11:30 Acetaminophen (Tylenol Liquid) 650 mg Q4H PRN NGT PAIN AND OR ELEVATED TEMP Last administered on 10/14/16 19:56; Admin Dose 650 MG; Start 09/28/16 at 13:30 Lisinopril (Zestril) 2.5 mg DAILY GTB Last administered on 10/25/16 09:11; Admin Dose 2.5 MG; Start 10/02/16 at 09:00 Collagenase (Santyl) 1 applic DAILY TOP Last administered on 10/25/16 09:12; Admin Dose 1 APPLIC; Start 10/08/16 at 20:00 Nystatin (Nystatin Powder) 1 applic BID TOP Last administered on 10/25/16 09:12 ; Admin Dose 1 APPLIC; Start 10/08/16 at 21:00 Collagenase (Santyl) 1 applic PRN PRN TOP WOUND CARE Last administered on 07:54; Admin Dose 1 APPLIC; Start 10/08/16 at 17:30 Lorazepam (Ativan) 2 mg Q2H PRN IV AGITATION Last administered on 10/24/16 21: 32; Admin Dose 2 MG; Start 10/16/16 at 16:00 Carvedilol (Coreg) 3.125 mg BID GTB Last administered on 10/25/16 09:10; Admin Dose 3.125 MG; Start 10/16/16 at 21:00 Fentanyl (Duragesic 50 Mcg/Hr Patch) 1 patch Q72H TRANSDERM Last administered on 10/24/16 11:19; Admin Dose 1 PATCH; Start 10/21/16 at 11:30 Apixaban (Eliquis) 5 mg BID PO Last administered on 10/25/16 09:10; Admin Dose 5 MG; Start 10/23/16 at 10:00 Methadone HCl (Methadone) 20 mg Q6 PO Last administered on 10/25/16 12:07; Admin Dose 20 MG; Start 10/23/16 at 12:00 Assessment/Plan Chief Complaint/Hosp Course IMPRESSION: 1. Hypoxemic respiratory failure/vent dependence 2. Right sided pneumonia with complicated parapneumonic status post decortication and chest tube placement 3. Acute pulmonary emboli 4. Encephalopathy, likely toxic metabolic. 5. History of polysubstance abuse PLAN: 1. Continue mechanical ventilation tracheostomy care, we'll attempt SIMV weaning 2. Continue to feeding as tolerated 3. continue anticoagulation for pulmonary embolus 4. Continue Free H20 Consider transfer to telemetry if patient remains stable Problems: AMANDA STONE MD, [facility] Oct 25, 2016 12:51
[2016-10-25] MEDS ORDERED: DOCUSATE 10 MG/ML PO SYG PEG SCH (14:00)
--- NOTE | 2016-10-25 16:20 | CONS ---
Date/Time of Note Date/Time of Note DATE: 10/25/16 TIME: 16:19 Assessment/Plan Assessment/Plan Additional Assessment/Plan Respiratory failure Pulmonary emboli Acute decompensated systolic congestive heart failure Severe biventricular cardiomyopathy with left ventricular ejection fraction 20% Pleural effusion -Continue beta beatriz and HILDA inhibitor as blood pressure renal function permits, patient on anticoagulation secondary to pulmonary emboli. No new cardiac orders at the current time. Consultation Date/Type/Reason Admit Date/Time Sep 15, 2016 at 16:54 Initial Consult Date 09/29/16 Type of Consultation: cv Referring Provider: JAN ZHANG 24 HR Interval Summary Free Text/Dictation Patient seen and examined, no new cardiac issues as per nursing staff Exam/Review of Systems Vital Signs Vitals Vital Signs Date Time Temp Pulse Resp B/P Pulse Ox O2 Delivery O2 Flow Rate FiO2 10/25/16 14:00 75 17 122/84 100 Mechanical Ventilator 10/25/16 12:00 98.6 10/25/16 11:05 30 Intake and Output 10/24/16 10/24/16 10/25/16 15:00 23:00 07:00 Intake Total 15 ml 200 ml 616 ml Output Total 430 ml 560 ml 410 ml Balance -415 ml -360 ml 206 ml Exam Follow some commands, in restraints, no apparent distress Constitutional: alert Head: normocephalic Neck: other (tracheostomy) Respiratory: other (course breath sounds bilaterally, no wheezing) Cardiovascular: other (S1-S2 heard), regular rate and rhythm Gastrointestinal: bowel sounds, non-tender, other (no guarding), soft Extremities: other (no edema) Results Result Diagram: 10/25/16 0600 10/25/16 0600 Results 24 hrs Laboratory Tests Test 10/25/16 06:00 Anion Gap 12 Basophils # 0.0 Basophils % 0.3 Blood Morphology Comment Blood Urea Nitrogen 8 Calcium Level 8.7 Carbon Dioxide Level 32 H Chloride Level 100 Creatinine 0.52 L Eosinophils # 1.6 H Eosinophils % 13.6 H Glucose Level 77 Hematocrit 32.1 L Hemoglobin 10.7 L Lymphocytes # 1.7 Lymphocytes % 14.7 L Mean Corpuscular Hemoglobin 29.1 Mean Corpuscular Hemoglobin Concent 33.2 Mean Corpuscular Volume 87.5 Mean Platelet Volume 10.1 Monocytes # 1.1 H Monocytes % 9.5 Neutrophils # 7.1 Neutrophils % 61.9 Nucleated Red Blood Cells # 0.0 Nucleated Red Blood Cells % 0.0 Platelet Count 435 Potassium Level 3.6 Red Blood Count 3.66 L Red Cell Distribution Width 14.9 H Sodium Level 140 White Blood Count 11.5 H Medications Medications Current Medications Ondansetron HCl (Zofran Inj) 4 mg Q6H PRN IV NAUSEA AND/OR VOMITING; Start at 18:00 Morphine Sulfate (morphine) 2 mg Q4H PRN IV PAIN LEVEL 7-10 Last administered on 10/25/16 01:25; Admin Dose 2 MG; Start 09/15/16 at 18:00 Haloperidol (Haldol) 5 mg Q6H PRN IM AGITATION Last administered on 10/19/16 17:15; Admin Dose 5 MG; Start 09/18/16 at 11:30 Famotidine (Pepcid Iv) 20 mg BID IV Last administered on 10/25/16 09:15; Admin Dose 20 MG; Start 09/19/16 at 21:00 Metoclopramide HCl (Reglan) 10 mg Q12 IV Last administered on 10/25/16 09:11; Admin Dose 10 MG; Start 09/24/16 at 11:30 Acetaminophen (Tylenol Liquid) 650 mg Q4H PRN NGT PAIN AND OR ELEVATED TEMP Last administered on 10/14/16 19:56; Admin Dose 650 MG; Start 09/28/16 at 13:30 Lisinopril (Zestril) 2.5 mg DAILY GTB Last administered on 10/25/16 09:11; Admin Dose 2.5 MG; Start 10/02/16 at 09:00 Collagenase (Santyl) 1 applic DAILY TOP Last administered on 10/25/16 09:12; Admin Dose 1 APPLIC; Start 10/08/16 at 20:00 Nystatin (Nystatin Powder) 1 applic BID TOP Last administered on 10/25/16 09:12 ; Admin Dose 1 APPLIC; Start 10/08/16 at 21:00 Collagenase (Santyl) 1 applic PRN PRN TOP WOUND CARE Last administered on 07:54; Admin Dose 1 APPLIC; Start 10/08/16 at 17:30 Lorazepam (Ativan) 2 mg Q2H PRN IV AGITATION Last administered on 10/24/16 21: 32; Admin Dose 2 MG; Start 10/16/16 at 16:00 Carvedilol (Coreg) 3.125 mg BID GTB Last administered on 10/25/16 09:10; Admin Dose 3.125 MG; Start 10/16/16 at 21:00 Fentanyl (Duragesic 50 Mcg/Hr Patch) 1 patch Q72H TRANSDERM Last administered on 10/24/16 11:19; Admin Dose 1 PATCH; Start 10/21/16 at 11:30 Apixaban (Eliquis) 5 mg BID PO Last administered on 10/25/16 09:10; Admin Dose 5 MG; Start 10/23/16 at 10:00 Methadone HCl (Methadone) 20 mg Q6 PO Last administered on 10/25/16 12:07; Admin Dose 20 MG; Start 10/23/16 at 12:00 Lorazepam (Ativan) 2 mg Q2H PRN PEG AGITATION; Start 10/25/16 at 15:00 Docusate Sodium (Colace Liquid Cup) 200 mg BID PEG ; Start 10/25/16 at 21:00; Stop 11/15/16 at 08:00 Nikolay Luna DO Oct 25, 2016 16:20
--- NOTE | 2016-10-25 17:14 | CONS ---
Date/Time of Note Date/Time of Note DATE: 10/25/16 TIME: 17:14 Assessment/Plan Assessment/Plan Additional Assessment/Plan Impression: 1. dysphagia secondary to encephalopathy, S/P peg,tolerating feeding 2. Right-sided pneumonia with complicated parapneumonic effusion, status post thoracentesis,s/p R chest tube placement. 3. Acute pulmonary emboli. 4. 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 5. Encephalopathy 6. Sepsis secondary to #2, resolved. Recommendation: 1.s/p trach placement 2. continue tube feeds 3. continue other supportive cares from primary and other consultants. 4.s/p PEG placement,tolerating feeding well 5.antibiotics as per ID 6.neuro consult Consultation Date/Type/Reason Admit Date/Time Sep 15, 2016 at 16:54 Initial Consult Date 09/29/16 Type of Consultation: cv Referring Provider: JAN ZHANG 24 HR Interval Summary Subjective hx not possible: pt critical Constitutional: no complaints Exam/Review of Systems Vital Signs Vitals Vital Signs Date Time Temp Pulse Resp B/P Pulse Ox O2 Delivery O2 Flow Rate FiO2 10/25/16 14:00 75 17 122/84 100 Mechanical Ventilator 10/25/16 12:00 98.6 10/25/16 11:05 30 Intake and Output 10/24/16 10/24/16 10/25/16 15:00 23:00 07:00 Intake Total 15 ml 200 ml 616 ml Output Total 430 ml 560 ml 410 ml Balance -415 ml -360 ml 206 ml Exam Constitutional: alert, oriented, well developed Psych: nl mood/affect, no complaints Head: atraumatic, normocephalic Eyes: EOMI, PERRL, nl conjunctiva, nl lids, nl sclera ENMT: nl external ears & nose, nl lips & teeth, nl nasal mucosa & septum Neck: non-tender, supple Respiratory: clear to auscultation, normal air movement Cardiovascular: nl pulses, regular rate and rhythm Gastrointestinal: nl liver, spleen, non-tender, soft Musculoskeletal: nl extremities to inspection, nl gait and stance Extremities: normal pulses 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, nl mental status, nl speech, nl strength Skin: nl turgor, No rash or lesions Lymph: nl lymph nodes Results Result Diagram: 10/25/16 0600 10/25/16 0600 Results 24 hrs Laboratory Tests Test 10/25/16 06:00 Anion Gap 12 Basophils # 0.0 Basophils % 0.3 Blood Morphology Comment Blood Urea Nitrogen 8 Calcium Level 8.7 Carbon Dioxide Level 32 H Chloride Level 100 Creatinine 0.52 L Eosinophils # 1.6 H Eosinophils % 13.6 H Glucose Level 77 Hematocrit 32.1 L Hemoglobin 10.7 L Lymphocytes # 1.7 Lymphocytes % 14.7 L Mean Corpuscular Hemoglobin 29.1 Mean Corpuscular Hemoglobin Concent 33.2 Mean Corpuscular Volume 87.5 Mean Platelet Volume 10.1 Monocytes # 1.1 H Monocytes % 9.5 Neutrophils # 7.1 Neutrophils % 61.9 Nucleated Red Blood Cells # 0.0 Nucleated Red Blood Cells % 0.0 Platelet Count 435 Potassium Level 3.6 Red Blood Count 3.66 L Red Cell Distribution Width 14.9 H Sodium Level 140 White Blood Count 11.5 H Medications Medications Current Medications Ondansetron HCl (Zofran Inj) 4 mg Q6H PRN IV NAUSEA AND/OR VOMITING; Start at 18:00 Morphine Sulfate (morphine) 2 mg Q4H PRN IV PAIN LEVEL 7-10 Last administered on 10/25/16 16:39; Admin Dose 2 MG; Start 09/15/16 at 18:00 Haloperidol (Haldol) 5 mg Q6H PRN IM AGITATION Last administered on 10/19/16 17:15; Admin Dose 5 MG; Start 09/18/16 at 11:30 Famotidine (Pepcid Iv) 20 mg BID IV Last administered on 10/25/16 09:15; Admin Dose 20 MG; Start 09/19/16 at 21:00 Metoclopramide HCl (Reglan) 10 mg Q12 IV Last administered on 10/25/16 09:11; Admin Dose 10 MG; Start 09/24/16 at 11:30 Acetaminophen (Tylenol Liquid) 650 mg Q4H PRN NGT PAIN AND OR ELEVATED TEMP Last administered on 10/14/16 19:56; Admin Dose 650 MG; Start 09/28/16 at 13:30 Lisinopril (Zestril) 2.5 mg DAILY GTB Last administered on 10/25/16 09:11; Admin Dose 2.5 MG; Start 10/02/16 at 09:00 Collagenase (Santyl) 1 applic DAILY TOP Last administered on 10/25/16 09:12; Admin Dose 1 APPLIC; Start 10/08/16 at 20:00 Nystatin (Nystatin Powder) 1 applic BID TOP Last administered on 10/25/16 09:12 ; Admin Dose 1 APPLIC; Start 10/08/16 at 21:00 Collagenase (Santyl) 1 applic PRN PRN TOP WOUND CARE Last administered on 07:54; Admin Dose 1 APPLIC; Start 10/08/16 at 17:30 Lorazepam (Ativan) 2 mg Q2H PRN IV AGITATION Last administered on 10/24/16 21: 32; Admin Dose 2 MG; Start 10/16/16 at 16:00 Carvedilol (Coreg) 3.125 mg BID GTB Last administered on 10/25/16 09:10; Admin Dose 3.125 MG; Start 10/16/16 at 21:00 Fentanyl (Duragesic 50 Mcg/Hr Patch) 1 patch Q72H TRANSDERM Last administered on 10/24/16 11:19; Admin Dose 1 PATCH; Start 10/21/16 at 11:30 Apixaban (Eliquis) 5 mg BID PO Last administered on 10/25/16 09:10; Admin Dose 5 MG; Start 10/23/16 at 10:00 Methadone HCl (Methadone) 20 mg Q6 PO Last administered on 10/25/16 12:07; Admin Dose 20 MG; Start 10/23/16 at 12:00 Lorazepam (Ativan) 2 mg Q2H PRN PEG AGITATION; Start 10/25/16 at 15:00 Docusate Sodium (Colace Liquid Cup) 200 mg BID PEG ; Start 10/25/16 at 21:00; Stop 11/15/16 at 08:00 ELMO GATICA MD Oct 25, 2016 17:14
[2016-10-25] MEDS: LORAZEPAM 2 MG INJ IV PRN (17:27)
[2016-10-25] MEDS: HALOPERIDOL 5 MG INJ IM PRN (17:47)
[2016-10-25] MEDS: LORAZEPAM 1 MG TAB PEG PRN (18:43)
[2016-10-25] MEDS: DOCUSATE SODIUM 10 MG/ML (10ML CUP) PEG SCH (20:23)
[2016-10-25] MEDS ORDERED: ALTEPLASE (CATHFLO) 2 MG INJ CATHETER ONE (22:00)
[2016-10-26] VITALS (35 sets, daily range): BP systolic 91–131; BP diastolic 47–88; PULSE 50–107; RESP 0–21
[2016-10-26] MEDS: LORAZEPAM 2 MG INJ IV PRN ×3 (00:29→20:18)
[2016-10-26] MEDS: METHADONE 10 MG TAB PO SCH ×4 (00:29→17:54)
[2016-10-26] MEDS: HALOPERIDOL 5 MG INJ IM PRN ×2 (00:30→22:41)
[2016-10-26] MEDS: morphine 2 MG INJ IV PRN ×2 (00:30→05:42)
[2016-10-26] MEDS: ALTEPLASE (CATHFLO) 2 MG INJ CATHETER PRN ×2 (03:39→03:42)
[2016-10-26 06:44] LABS: BASOPHIL # 0.1 10^3/ul (0.0-0.1); BASOPHILS % 0.4 % (0.0-2.0); EOSINOPHILS # 0.9 10^3/ul (0.0-0.5); EOSINOPHILS % 6.9 % (0.0-7.0); HEMATOCRIT 32.4 % (42.0-52.0); HEMOGLOBIN 10.6 g/dl (14.0-18.0); LYMPHOCYTES # 1.6 10^3/ul (0.8-2.9); LYMPHOCYTES % 12.1 % (15.0-51.0); MEAN CORPUSCULAR HEMOGLOBIN 29.1 pg (29.0-33.0); MEAN CORPUSCULAR HGB CONC 32.8 g/dl (32.0-37.0); MEAN CORPUSCULAR VOLUME 88.6 fl (82.0-101.0); MEAN PLATELET VOLUME 10.2 fl (7.4-10.4); MONOCYTE # 1.3 10^3/ul (0.3-0.9); MONOCYTES % 10.2 % (0.0-11.0); NEUTROPHIL # 9.2 10^3/ul (1.6-7.5); NEUTROPHILS % 70.4 % (39.0-77.0); PLATELET COUNT 442 10^3/UL (140-440); RED BLOOD COUNT 3.66 10^6/ul (4.70-6.10); RED CELL DISTRIBUTION WIDTH 15.3 % (11.5-14.5); UNCORRECTED WBC 13.1 10^3/ul (4.8-10.8); WHITE BLOOD COUNT 13.1 10^3/ul (4.8-10.8)
[2016-10-26 06:50] LABS: CONDITION 1; LH ANALYZER COMMENTS 1
[2016-10-26 06:52] LABS: POTASSIUM 3.8 mmol/L (3.5-5.1)
[2016-10-26 06:55] LABS: CREATININE 0.53 mg/dl (0.61-1.24)
[2016-10-26 06:56] LABS: CALCIUM 8.6 mg/dl (8.4-10.2)
--- NOTE | 2016-10-26 07:55 | CONS ---
Date/Time of Note Date/Time of Note DATE: 10/26/16 TIME: 07:52 Assessment/Plan Assessment/Plan Additional Assessment/Plan Ventilator settings; assist control of 16, tidal volume 500. 30% FiO2, PEEP of 5. Assessment and recommendation; next 1. Patient admitted with respiratory failure due to extensive right-sided pneumonia. Status post right-sided chest tube placement and VATS procedure. No further drainage from the chest tube over the last 48 hours. 2. Status post tracheostomy and G-tube placement. 3. History of extensive drug abuse patient exhibiting significant drug withdrawal precluding weaning from mechanical ventilation. 4. Hypertension which is fairly stable. 5. History of DVT and PE patient currently on apixaban. Change ventilator settings to SIMV with a rate of 16, pressure support of 10. Continue current supportive care. Patient is off continuous IV sedation with fentanyl and Versed drips. He is to be transferred to a rehab facility. Consultation Date/Type/Reason Admit Date/Time Sep 15, 2016 at 16:54 Initial Consult Date 09/29/16 Type of Consultation: cv Referring Provider: JAN ZHANG 24 HR Interval Summary Free Text/Dictation Patient condition is stable. The patient could not handle CPAP mode because of high-dose sedation requirement. Patient has been put back on assist control mode with a rate of 16. The patient is readily arousable. But nods off to sleep. Has remained hemodynamically stable General examination middle aged man currently in no distress. On mechanical ventilation via tracheostomy Exam/Review of Systems Vital Signs Vitals Vital Signs Date Time Temp Pulse Resp B/P Pulse Ox O2 Delivery O2 Flow Rate FiO2 10/26/16 06:00 58 20 100/56 99 10/26/16 06:00 98.5 10/26/16 05:11 30 10/25/16 23:00 Mechanical Ventilator Intake and Output 10/25/16 10/25/16 10/26/16 15:00 23:00 07:00 Intake Total 572 ml 460 ml 490 ml Output Total 325 ml 205 ml 500 ml Balance 247 ml 255 ml -10 ml Exam H EENT examination; supple neck, no JVD. Tracheostomy is in place with clean insertion site. Pupils are midsize reactive to light. No neck masses. No lymphadenopathy. Chest examination; clear to auscultation. S1-S2 audible no murmurs regular rhythm. There is a right-sided chest tube in place. No significant drainage in the Pleur-evac chamber was last 48 hours. Abdomen examination; soft, G-tube in place, nontender. No organomegaly. Bowel sounds audible. Extremity examination; no peripheral edema. Pulses 2+ bilaterally. 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 Follows simple commands and move all 4 extremities. Results Result Diagram: 10/26/16 0530 10/26/16 0530 Results 24 hrs Laboratory Tests Test 10/26/16 05:30 Anion Gap 12 Basophils # 0.1 Basophils % 0.4 Blood Morphology Comment Blood Urea Nitrogen 10 Calcium Level 8.6 Carbon Dioxide Level 33 H Chloride Level 98 Creatinine 0.53 L Eosinophils # 0.9 H Eosinophils % 6.9 Glucose Level 93 Hematocrit 32.4 L Hemoglobin 10.6 L Lymphocytes # 1.6 Lymphocytes % 12.1 L Mean Corpuscular Hemoglobin 29.1 Mean Corpuscular Hemoglobin Concent 32.8 Mean Corpuscular Volume 88.6 Mean Platelet Volume 10.2 Monocytes # 1.3 H Monocytes % 10.2 Neutrophils # 9.2 H Neutrophils % 70.4 Nucleated Red Blood Cells # 0.0 Nucleated Red Blood Cells % 0.0 Platelet Count 442 H Potassium Level 3.8 Red Blood Count 3.66 L Red Cell Distribution Width 15.3 H Sodium Level 139 White Blood Count 13.1 H Medications Medications Current Medications Ondansetron HCl (Zofran Inj) 4 mg Q6H PRN IV NAUSEA AND/OR VOMITING; Start at 18:00 Morphine Sulfate (morphine) 2 mg Q4H PRN IV PAIN LEVEL 7-10 Last administered on 10/26/16 05:42; Admin Dose 2 MG; Start 09/15/16 at 18:00 Haloperidol (Haldol) 5 mg Q6H PRN IM AGITATION Last administered on 10/26/16 00 :30; Admin Dose 5 MG; Start 09/18/16 at 11:30 Famotidine (Pepcid Iv) 20 mg BID IV Last administered on 10/25/16 20:23; Admin Dose 20 MG; Start 09/19/16 at 21:00 Metoclopramide HCl (Reglan) 10 mg Q12 IV Last administered on 10/25/16 20:23; Admin Dose 10 MG; Start 09/24/16 at 11:30 Acetaminophen (Tylenol Liquid) 650 mg Q4H PRN NGT PAIN AND OR ELEVATED TEMP Last administered on 10/14/16 19:56; Admin Dose 650 MG; Start 09/28/16 at 13:30 Lisinopril (Zestril) 2.5 mg DAILY GTB Last administered on 10/25/16 09:11; Admin Dose 2.5 MG; Start 10/02/16 at 09:00 Collagenase (Santyl) 1 applic DAILY TOP Last administered on 10/25/16 09:12; Admin Dose 1 APPLIC; Start 10/08/16 at 20:00 Nystatin (Nystatin Powder) 1 applic BID TOP Last administered on 10/25/16 20:23 ; Admin Dose 1 APPLIC; Start 10/08/16 at 21:00 Collagenase (Santyl) 1 applic PRN PRN TOP WOUND CARE Last administered on 07:54; Admin Dose 1 APPLIC; Start 10/08/16 at 17:30 Lorazepam (Ativan) 2 mg Q2H PRN IV AGITATION Last administered on 10/26/16 05: 41; Admin Dose 2 MG; Start 10/16/16 at 16:00 Carvedilol (Coreg) 3.125 mg BID GTB Last administered on 10/25/16 20:23; Admin Dose 3.125 MG; Start 10/16/16 at 21:00 Fentanyl (Duragesic 50 Mcg/Hr Patch) 1 patch Q72H TRANSDERM Last administered on 10/24/16 11:19; Admin Dose 1 PATCH; Start 10/21/16 at 11:30 Apixaban (Eliquis) 5 mg BID PO Last administered on 10/25/16 20:22; Admin Dose 5 MG; Start 10/23/16 at 10:00 Methadone HCl (Methadone) 20 mg Q6 PO Last administered on 10/26/16 05:44; Admin Dose 20 MG; Start 10/23/16 at 12:00 Lorazepam (Ativan) 2 mg Q2H PRN PEG AGITATION Last administered on 10/25/16 18: 43; Admin Dose 2 MG; Start 10/25/16 at 15:00 Docusate Sodium (Colace Liquid Cup) 200 mg BID PEG Last administered on 20:23; Admin Dose 200 MG; Start 10/25/16 at 21:00; Stop 11/15/16 at 08:00 ILYA HILL Oct 26, 2016 07:55
[2016-10-26] MEDS: LISINOPRIL 5 MG TAB GTB SCH (08:48)
[2016-10-26] MEDS: APIXABAN 5 MG TABLET PO SCH ×2 (08:48→20:28)
[2016-10-26] MEDS: DOCUSATE SODIUM 10 MG/ML (10ML CUP) PEG SCH ×2 (08:48→20:27)
[2016-10-26] MEDS: METOCLOPRAMIDE 10 MG INJ IV SCH ×2 (08:49→20:27)
[2016-10-26] MEDS: NYSTATIN 30 GM POWDER BTL TOP SCH ×2 (08:50→20:28)
[2016-10-26] MEDS: COLLAGENASE 30 GM TUBE TOP SCH (08:58)
[2016-10-26] MEDS: FAMOTIDINE 20 MG TAB PO SCH (09:43)
--- NOTE | 2016-10-26 11:59 | RADRPT ---
PROCEDURE: XR Chest. CLINICAL INDICATION: Pleural effusion TECHNIQUE: An AP view of the chest was obtained. COMPARISON: Chest x-ray dated 10/18/2016 FINDINGS: A tracheostomy tube is in place. There is a left subclavian central venous catheter with tip near th e junction of the left brachiocephalic vein and SVC. A right chest tube is in place. There is prominence of the interstitial markings. No pleural effusion or pneumothorax is seen. Th e cardiomediastinal silhouette is mildly enlarged . The osseous structures are unremarkable. IMPRESSION: 1. Mild prominence of the interstitial markings, may reflect mild underlying interstitial edema or chronic lung changes. Lung aeration is mildly improved when compared to the prior examination. 2. Mild cardiomegaly. 3. Tubes and lines, as described above. RPTAT: HH .Malia Aguirre MD, MD Date Time Electronically viewed and signed by .Malia Aguirre MD, on 10/26/2016 11:59 .G/
--- NOTE | 2016-10-26 12:30 | CONS ---
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 Continue beta beatriz and HILDA inhibitor as blood pressure permits. Okay to transfer to telemetry at the current time. Consultation Date/Type/Reason Admit Date/Time Sep 15, 2016 at 16:54 Initial Consult Date 09/29/16 Type of Consultation: cv Referring Provider: JAN ZHANG 24 HR Interval Summary Free Text/Dictation Patient required increased sedation because tried to get out of bed. Otherwise no cardiac issues as per nursing staff Exam/Review of Systems Vital Signs Vitals Vital Signs Date Time Temp Pulse Resp B/P Pulse Ox O2 Delivery O2 Flow Rate FiO2 10/26/16 12:00 65 10/26/16 11:00 16 99 30 10/26/16 10:00 101/59 Mechanical Ventilator 10/26/16 08:00 98.4 Intake and Output 10/25/16 10/25/16 10/26/16 15:00 23:00 07:00 Intake Total 572 ml 460 ml 490 ml Output Total 325 ml 205 ml 500 ml Balance 247 ml 255 ml -10 ml Exam Sedated, no apparent distress Head: normocephalic Neck: other (tracheostomy) Respiratory: other (course breath sounds bilaterally, no wheezing) Cardiovascular: other (S1-S2 heard), regular rate and rhythm Gastrointestinal: bowel sounds, non-tender, other (no guarding), soft Extremities: other (no edema) Results Result Diagram: 10/26/16 0530 10/26/16 0530 Results 24 hrs Laboratory Tests Test 10/26/16 05:30 Anion Gap 12 Basophils # 0.1 Basophils % 0.4 Blood Morphology Comment Blood Urea Nitrogen 10 Calcium Level 8.6 Carbon Dioxide Level 33 H Chloride Level 98 Creatinine 0.53 L Eosinophils # 0.9 H Eosinophils % 6.9 Glucose Level 93 Hematocrit 32.4 L Hemoglobin 10.6 L Lymphocytes # 1.6 Lymphocytes % 12.1 L Mean Corpuscular Hemoglobin 29.1 Mean Corpuscular Hemoglobin Concent 32.8 Mean Corpuscular Volume 88.6 Mean Platelet Volume 10.2 Monocytes # 1.3 H Monocytes % 10.2 Neutrophils # 9.2 H Neutrophils % 70.4 Nucleated Red Blood Cells # 0.0 Nucleated Red Blood Cells % 0.0 Platelet Count 442 H Potassium Level 3.8 Red Blood Count 3.66 L Red Cell Distribution Width 15.3 H Sodium Level 139 White Blood Count 13.1 H Medications Medications Current Medications Ondansetron HCl (Zofran Inj) 4 mg Q6H PRN IV NAUSEA AND/OR VOMITING; Start at 18:00 Morphine Sulfate (morphine) 2 mg Q4H PRN IV PAIN LEVEL 7-10 Last administered on 10/26/16 05:42; Admin Dose 2 MG; Start 09/15/16 at 18:00 Haloperidol (Haldol) 5 mg Q6H PRN IM AGITATION Last administered on 10/26/16 00 :30; Admin Dose 5 MG; Start 09/18/16 at 11:30 Metoclopramide HCl (Reglan) 10 mg Q12 IV Last administered on 10/26/16 08:49; Admin Dose 10 MG; Start 09/24/16 at 11:30 Acetaminophen (Tylenol Liquid) 650 mg Q4H PRN NGT PAIN AND OR ELEVATED TEMP Last administered on 10/14/16 19:56; Admin Dose 650 MG; Start 09/28/16 at 13:30 Lisinopril (Zestril) 2.5 mg DAILY GTB Last administered on 10/26/16 08:48; Admin Dose 2.5 MG; Start 10/02/16 at 09:00 Collagenase (Santyl) 1 applic DAILY TOP Last administered on 10/26/16 08:58; Admin Dose 1 APPLIC; Start 10/08/16 at 20:00 Nystatin (Nystatin Powder) 1 applic BID TOP Last administered on 10/26/16 08:50 ; Admin Dose 1 APPLIC; Start 10/08/16 at 21:00 Collagenase (Santyl) 1 applic PRN PRN TOP WOUND CARE Last administered on 07:54; Admin Dose 1 APPLIC; Start 10/08/16 at 17:30 Lorazepam (Ativan) 2 mg Q2H PRN IV AGITATION Last administered on 10/26/16 05: 41; Admin Dose 2 MG; Start 10/16/16 at 16:00 Carvedilol (Coreg) 3.125 mg BID GTB Last administered on 10/25/16 20:23; Admin Dose 3.125 MG; Start 10/16/16 at 21:00 Fentanyl (Duragesic 50 Mcg/Hr Patch) 1 patch Q72H TRANSDERM Last administered on 10/24/16 11:19; Admin Dose 1 PATCH; Start 10/21/16 at 11:30 Apixaban (Eliquis) 5 mg BID PO Last administered on 10/26/16 08:48; Admin Dose 5 MG; Start 10/23/16 at 10:00 Methadone HCl (Methadone) 20 mg Q6 PO Last administered on 10/26/16 11:23; Admin Dose 20 MG; Start 10/23/16 at 12:00 Lorazepam (Ativan) 2 mg Q2H PRN PEG AGITATION Last administered on 10/25/16 18: 43; Admin Dose 2 MG; Start 10/25/16 at 15:00 Docusate Sodium (Colace Liquid Cup) 200 mg BID PEG Last administered on 08:48; Admin Dose 200 MG; Start 10/25/16 at 21:00; Stop 11/15/16 at 08:00 Famotidine (Pepcid) 20 mg DAILY PO Last administered on 10/26/16 09:43; Admin Dose 20 MG; Start 10/26/16 at 09:00 Nikolay Luna DO Oct 26, 2016 12:30
--- NOTE | 2016-10-26 13:50 | PN ---
Date/Time of Note Date/Time of Note DATE: 10/26/16 TIME: 13:49 Assessment/Plan VTE Prophylaxis VTE Prophylaxis Intervention: other Lines/Catheters IV Catheter Type (from Nrsg): Central line still needed: No Urinary Cath still in place: No Assessment/Plan Chief Complaint/Hosp Course IMPRESSION 1. Pulmonary embolism. 2. Pneumonia. 3 Pleural effusion RECOMMENDATIONS: SP CT placement SP Trach will continue vent support trach care Problems: Exam/Review of Systems Vital Signs Vitals Vital Signs Date Time Temp Pulse Resp B/P Pulse Ox O2 Delivery O2 Flow Rate FiO2 10/26/16 13:06 51 16 100 30 10/26/16 13:00 91/61 Mechanical Ventilator 10/26/16 12:00 98.2 Intake and Output 10/25/16 10/25/16 10/26/16 15:00 23:00 07:00 Intake Total 572 ml 460 ml 530 ml Output Total 325 ml 205 ml 575 ml Balance 247 ml 255 ml -45 ml Exam Neck: non-tender, supple Respiratory: clear to auscultation, normal air movement Cardiovascular: nl pulses, regular rate and rhythm Gastrointestinal: nl liver, spleen, non-tender, soft Results Result Diagram: 10/26/16 0530 10/26/16 0530 Results 24 hrs Laboratory Tests Test 10/26/16 05:30 Anion Gap 12 Basophils # 0.1 Basophils % 0.4 Blood Morphology Comment Blood Urea Nitrogen 10 Calcium Level 8.6 Carbon Dioxide Level 33 H Chloride Level 98 Creatinine 0.53 L Eosinophils # 0.9 H Eosinophils % 6.9 Glucose Level 93 Hematocrit 32.4 L Hemoglobin 10.6 L Lymphocytes # 1.6 Lymphocytes % 12.1 L Mean Corpuscular Hemoglobin 29.1 Mean Corpuscular Hemoglobin Concent 32.8 Mean Corpuscular Volume 88.6 Mean Platelet Volume 10.2 Monocytes # 1.3 H Monocytes % 10.2 Neutrophils # 9.2 H Neutrophils % 70.4 Nucleated Red Blood Cells # 0.0 Nucleated Red Blood Cells % 0.0 Platelet Count 442 H Potassium Level 3.8 Red Blood Count 3.66 L Red Cell Distribution Width 15.3 H Sodium Level 139 White Blood Count 13.1 H Medications Medications Current Medications Ondansetron HCl (Zofran Inj) 4 mg Q6H PRN IV NAUSEA AND/OR VOMITING; Start at 18:00 Morphine Sulfate (morphine) 2 mg Q4H PRN IV PAIN LEVEL 7-10 Last administered on 10/26/16 05:42; Admin Dose 2 MG; Start 09/15/16 at 18:00 Haloperidol (Haldol) 5 mg Q6H PRN IM AGITATION Last administered on 10/26/16 00 :30; Admin Dose 5 MG; Start 09/18/16 at 11:30 Metoclopramide HCl (Reglan) 10 mg Q12 IV Last administered on 10/26/16 08:49; Admin Dose 10 MG; Start 09/24/16 at 11:30 Acetaminophen (Tylenol Liquid) 650 mg Q4H PRN NGT PAIN AND OR ELEVATED TEMP Last administered on 10/14/16 19:56; Admin Dose 650 MG; Start 09/28/16 at 13:30 Lisinopril (Zestril) 2.5 mg DAILY GTB Last administered on 10/26/16 08:48; Admin Dose 2.5 MG; Start 10/02/16 at 09:00 Collagenase (Santyl) 1 applic DAILY TOP Last administered on 10/26/16 08:58; Admin Dose 1 APPLIC; Start 10/08/16 at 20:00 Nystatin (Nystatin Powder) 1 applic BID TOP Last administered on 10/26/16 08:50 ; Admin Dose 1 APPLIC; Start 10/08/16 at 21:00 Collagenase (Santyl) 1 applic PRN PRN TOP WOUND CARE Last administered on 07:54; Admin Dose 1 APPLIC; Start 10/08/16 at 17:30 Lorazepam (Ativan) 2 mg Q2H PRN IV AGITATION Last administered on 10/26/16 05: 41; Admin Dose 2 MG; Start 10/16/16 at 16:00 Carvedilol (Coreg) 3.125 mg BID GTB Last administered on 10/25/16 20:23; Admin Dose 3.125 MG; Start 10/16/16 at 21:00 Fentanyl (Duragesic 50 Mcg/Hr Patch) 1 patch Q72H TRANSDERM Last administered on 10/24/16 11:19; Admin Dose 1 PATCH; Start 10/21/16 at 11:30 Apixaban (Eliquis) 5 mg BID PO Last administered on 10/26/16 08:48; Admin Dose 5 MG; Start 10/23/16 at 10:00 Methadone HCl (Methadone) 20 mg Q6 PO Last administered on 10/26/16 11:23; Admin Dose 20 MG; Start 10/23/16 at 12:00 Lorazepam (Ativan) 2 mg Q2H PRN PEG AGITATION Last administered on 10/25/16 18: 43; Admin Dose 2 MG; Start 10/25/16 at 15:00 Docusate Sodium (Colace Liquid Cup) 200 mg BID PEG Last administered on 08:48; Admin Dose 200 MG; Start 10/25/16 at 21:00; Stop 11/15/16 at 08:00 Famotidine (Pepcid) 20 mg DAILY PO Last administered on 10/26/16 09:43; Admin Dose 20 MG; Start 10/26/16 at 09:00 YOUNG HAY MD Oct 26, 2016 13:50
--- NOTE | 2016-10-26 13:59 | PN ---
Date/Time of Note Date/Time of Note DATE: 10/26/16 TIME: 13:55 Assessment/Plan VTE Prophylaxis VTE Prophylaxis Intervention: LMWH Lines/Catheters IV Catheter Type (from [facility]): Urinary Cath still in place: No Assessment/Plan Chief Complaint/Hosp Course ASSESSMENT AND PLAN: - Acute respiratory failure patient, failed extubation. Continue ventilator support, weaning per pulmonology. Dr. Simons is following the patient from pulmonology consultation. - Right-sided pneumonia with complicated parapneumonic effusion, status post thoracentesis, s/p R chest tube placement. Continue antibiotics per Dr. Osullivan group following from Infectious Disease standpoint. - Acute pulmonary emboli. Continue patient on Lovenox. 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 Dr. Luna is following from cardiology standpoint. - Encephalopathy, likely toxic metabolic, resolving. Continue to monitor. - Sepsis secondary to #2, resolved. - Status post tracheostomy by Dr. Marino on 10/20. - Status post G-tube placement by Dr. Galarza on 10/20 Continue Pepcid for peptic ulcer disease prophylaxis. Further recommendations based on clinical course. Plan of care discussed with Dr. Patel. Problems: Subjective 24 Hr Interval Summary Free Text/Dictation Patient tolerates SIMV mode well, currently calm, pain is well controlled, tolerates feeding well. Pain is controlled with methadone. Patient is weaned off Versed drip. Exam/Review of Systems Vital Signs Vitals Vital Signs Date Time Temp Pulse Resp B/P Pulse Ox O2 Delivery O2 Flow Rate FiO2 10/26/16 13:06 51 16 100 30 10/26/16 13:00 91/61 Mechanical Ventilator 10/26/16 12:00 98.2 Intake and Output 10/25/16 10/25/16 10/26/16 15:00 23:00 07:00 Intake Total 572 ml 460 ml 530 ml Output Total 325 ml 205 ml 575 ml Balance 247 ml 255 ml -45 ml Exam GENERAL: Well-developed, well-nourished male, tracheostomy to vent support. LUNGS: Diminished with scattered rhonchi bilaterally. HEART: Normal S1, S2. No murmurs, gallops, clicks, rubs noted. ABDOMEN: Round, soft, nondistended, nontender. Bowel sounds present. EXTREMITIES: No edema, clubbing, cyanosis. Pulses equal bilaterally 2+. SKIN: There is no rash. NEUROLOGIC: Sedated Results Result Diagram: 10/26/16 0530 10/26/16 0530 Results 24 hrs Laboratory Tests Test 10/26/16 05:30 Anion Gap 12 Basophils # 0.1 Basophils % 0.4 Blood Morphology Comment Blood Urea Nitrogen 10 Calcium Level 8.6 Carbon Dioxide Level 33 H Chloride Level 98 Creatinine 0.53 L Eosinophils # 0.9 H Eosinophils % 6.9 Glucose Level 93 Hematocrit 32.4 L Hemoglobin 10.6 L Lymphocytes # 1.6 Lymphocytes % 12.1 L Mean Corpuscular Hemoglobin 29.1 Mean Corpuscular Hemoglobin Concent 32.8 Mean Corpuscular Volume 88.6 Mean Platelet Volume 10.2 Monocytes # 1.3 H Monocytes % 10.2 Neutrophils # 9.2 H Neutrophils % 70.4 Nucleated Red Blood Cells # 0.0 Nucleated Red Blood Cells % 0.0 Platelet Count 442 H Potassium Level 3.8 Red Blood Count 3.66 L Red Cell Distribution Width 15.3 H Sodium Level 139 White Blood Count 13.1 H Medications Medications Current Medications Ondansetron HCl (Zofran Inj) 4 mg Q6H PRN IV NAUSEA AND/OR VOMITING; Start at 18:00 Morphine Sulfate (morphine) 2 mg Q4H PRN IV PAIN LEVEL 7-10 Last administered on 10/26/16 05:42; Admin Dose 2 MG; Start 09/15/16 at 18:00 Haloperidol (Haldol) 5 mg Q6H PRN IM AGITATION Last administered on 10/26/16 00 :30; Admin Dose 5 MG; Start 09/18/16 at 11:30 Metoclopramide HCl (Reglan) 10 mg Q12 IV Last administered on 10/26/16 08:49; Admin Dose 10 MG; Start 09/24/16 at 11:30 Acetaminophen (Tylenol Liquid) 650 mg Q4H PRN NGT PAIN AND OR ELEVATED TEMP Last administered on 10/14/16 19:56; Admin Dose 650 MG; Start 09/28/16 at 13:30 Lisinopril (Zestril) 2.5 mg DAILY GTB Last administered on 10/26/16 08:48; Admin Dose 2.5 MG; Start 10/02/16 at 09:00 Collagenase (Santyl) 1 applic DAILY TOP Last administered on 10/26/16 08:58; Admin Dose 1 APPLIC; Start 10/08/16 at 20:00 Nystatin (Nystatin Powder) 1 applic BID TOP Last administered on 10/26/16 08:50 ; Admin Dose 1 APPLIC; Start 10/08/16 at 21:00 Collagenase (Santyl) 1 applic PRN PRN TOP WOUND CARE Last administered on 07:54; Admin Dose 1 APPLIC; Start 10/08/16 at 17:30 Lorazepam (Ativan) 2 mg Q2H PRN IV AGITATION Last administered on 10/26/16 05: 41; Admin Dose 2 MG; Start 10/16/16 at 16:00 Carvedilol (Coreg) 3.125 mg BID GTB Last administered on 10/25/16 20:23; Admin Dose 3.125 MG; Start 10/16/16 at 21:00 Fentanyl (Duragesic 50 Mcg/Hr Patch) 1 patch Q72H TRANSDERM Last administered on 10/24/16 11:19; Admin Dose 1 PATCH; Start 10/21/16 at 11:30 Apixaban (Eliquis) 5 mg BID PO Last administered on 10/26/16 08:48; Admin Dose 5 MG; Start 10/23/16 at 10:00 Methadone HCl (Methadone) 20 mg Q6 PO Last administered on 10/26/16 11:23; Admin Dose 20 MG; Start 10/23/16 at 12:00 Lorazepam (Ativan) 2 mg Q2H PRN PEG AGITATION Last administered on 10/25/16 18: 43; Admin Dose 2 MG; Start 10/25/16 at 15:00 Docusate Sodium (Colace Liquid Cup) 200 mg BID PEG Last administered on 08:48; Admin Dose 200 MG; Start 10/25/16 at 21:00; Stop 11/15/16 at 08:00 Famotidine (Pepcid) 20 mg DAILY PO Last administered on 10/26/16 09:43; Admin Dose 20 MG; Start 10/26/16 at 09:00 AJN ZHANG Oct 26, 2016 13:59
--- NOTE | 2016-10-26 18:29 | CONS ---
Date/Time of Note Date/Time of Note DATE: 10/26/16 TIME: 18:29 Assessment/Plan Assessment/Plan Additional Assessment/Plan Impression: 1. dysphagia secondary to encephalopathy, S/P peg,tolerating feeding 2. Right-sided pneumonia with complicated parapneumonic effusion, status post thoracentesis,s/p R chest tube placement. 3. Acute pulmonary emboli. 4. 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 5. Encephalopathy,better 6. Sepsis secondary to #2, resolved. Recommendation: 1.s/p trach placement 2. continue tube feeds 3. continue other supportive cares from primary and other consultants. 4.s/p PEG placement,tolerating feeding well 5.antibiotics as per ID Consultation Date/Type/Reason Admit Date/Time Sep 15, 2016 at 16:54 Initial Consult Date 09/29/16 Type of Consultation: cv Referring Provider: JAN ZHANG 24 HR Interval Summary Constitutional: improved Exam/Review of Systems Vital Signs Vitals Vital Signs Date Time Temp Pulse Resp B/P Pulse Ox O2 Delivery O2 Flow Rate FiO2 10/26/16 17:44 70 16 98 30 10/26/16 15:00 108/69 Mechanical Ventilator 10/26/16 12:00 98.2 Intake and Output 10/25/16 10/25/16 10/26/16 15:00 23:00 07:00 Intake Total 572 ml 460 ml 530 ml Output Total 325 ml 205 ml 575 ml Balance 247 ml 255 ml -45 ml Exam Constitutional: alert, oriented, well developed Psych: nl mood/affect, no complaints Head: atraumatic, normocephalic Eyes: EOMI, PERRL, nl conjunctiva, nl lids, nl sclera ENMT: nl external ears & nose, nl lips & teeth, nl nasal mucosa & septum Neck: non-tender, supple Respiratory: clear to auscultation, normal air movement Cardiovascular: nl pulses, regular rate and rhythm Gastrointestinal: nl liver, spleen, non-tender, soft Musculoskeletal: nl extremities to inspection, nl gait and stance Extremities: normal pulses Neurological: DROP WIRE HANGER II-XII intact, nl mental status, nl speech, nl strength Skin: nl turgor, No rash or lesions Lymph: nl lymph nodes Results Result Diagram: 10/26/16 0530 10/26/16 0530 Results 24 hrs Laboratory Tests Test 2/6/17 05:30 Anion Gap 12 Basophils # 0.1 Basophils % 0.4 Blood Morphology Comment Blood Urea Nitrogen 10 Calcium Level 8.6 Carbon Dioxide Level 33 H Chloride Level 98 Creatinine 0.53 L Eosinophils # 0.9 H Eosinophils % 6.9 Glucose Level 93 Hematocrit 32.4 L Hemoglobin 10.6 L Lymphocytes # 1.6 Lymphocytes % 12.1 L Mean Corpuscular Hemoglobin 29.1 Mean Corpuscular Hemoglobin Concent 32.8 Mean Corpuscular Volume 88.6 Mean Platelet Volume 10.2 Monocytes # 1.3 H Monocytes % 10.2 Neutrophils # 9.2 H Neutrophils % 70.4 Nucleated Red Blood Cells # 0.0 Nucleated Red Blood Cells % 0.0 Platelet Count 442 H Potassium Level 3.8 Red Blood Count 3.66 L Red Cell Distribution Width 15.3 H Sodium Level 139 White Blood Count 13.1 H Medications Medications Current Medications Ondansetron HCl (Zofran Inj) 4 mg Q6H PRN IV NAUSEA AND/OR VOMITING; Start at 18:00 Morphine Sulfate (morphine) 2 mg Q4H PRN IV PAIN LEVEL 7-10 Last administered on 10/26/16 05:42; Admin Dose 2 MG; Start 09/15/16 at 18:00 Haloperidol (Haldol) 5 mg Q6H PRN IM AGITATION Last administered on 10/26/16 00 :30; Admin Dose 5 MG; Start 09/18/16 at 11:30 Metoclopramide HCl (Reglan) 10 mg Q12 IV Last administered on 10/26/16 08:49; Admin Dose 10 MG; Start 09/24/16 at 11:30 Acetaminophen (Tylenol Liquid) 650 mg Q4H PRN NGT PAIN AND OR ELEVATED TEMP Last administered on 10/14/16 19:56; Admin Dose 650 MG; Start 09/28/16 at 13:30 Lisinopril (Zestril) 2.5 mg DAILY GTB Last administered on 10/26/16 08:48; Admin Dose 2.5 MG; Start 10/02/16 at 09:00 Collagenase (Santyl) 1 applic DAILY TOP Last administered on 10/26/16 08:58; Admin Dose 1 APPLIC; Start 10/08/16 at 20:00 Nystatin (Nystatin Powder) 1 applic BID TOP Last administered on 10/26/16 08:50 ; Admin Dose 1 APPLIC; Start 10/08/16 at 21:00 Collagenase (Santyl) 1 applic PRN PRN TOP WOUND CARE Last administered on 07:54; Admin Dose 1 APPLIC; Start 10/08/16 at 17:30 Lorazepam (Ativan) 2 mg Q2H PRN IV AGITATION Last administered on 10/26/16 05: 41; Admin Dose 2 MG; Start 10/16/16 at 16:00 Carvedilol (Coreg) 3.125 mg BID GTB Last administered on 10/25/16 20:23; Admin Dose 3.125 MG; Start 10/16/16 at 21:00 Fentanyl (Duragesic 50 Mcg/Hr Patch) 1 patch Q72H TRANSDERM Last administered on 10/24/16 11:19; Admin Dose 1 PATCH; Start 10/21/16 at 11:30 Apixaban (Eliquis) 5 mg BID PO Last administered on 10/26/16 08:48; Admin Dose 5 MG; Start 10/23/16 at 10:00 Methadone HCl (Methadone) 20 mg Q6 PO Last administered on 10/26/16 17:54; Admin Dose 20 MG; Start 10/23/16 at 12:00 Lorazepam (Ativan) 2 mg Q2H PRN PEG AGITATION Last administered on 10/25/16 18: 43; Admin Dose 2 MG; Start 10/25/16 at 15:00 Docusate Sodium (Colace Liquid Cup) 200 mg BID PEG Last administered on 08:48; Admin Dose 200 MG; Start 10/25/16 at 21:00; Stop 11/15/16 at 08:00 Famotidine (Pepcid) 20 mg DAILY PO Last administered on 10/26/16 09:43; Admin Dose 20 MG; Start 10/26/16 at 09:00 ELMO GATICA MD Oct 26, 2016 18:29
[2016-10-27] VITALS (31 sets, daily range): BP systolic 101–132; BP diastolic 63–95; PULSE 53–130; RESP 7–25
[2016-10-27] MEDS: METHADONE 10 MG TAB PO SCH ×4 (00:10→13:48)
[2016-10-27] MEDS: morphine 2 MG INJ IV PRN (01:39)
[2016-10-27] MEDS: LORAZEPAM 2 MG INJ IV PRN ×3 (03:41→22:34)
[2016-10-27 05:00] LABS: BASOPHILS % 0.2 % (0.0-2.0); EOSINOPHILS # 1.1 10^3/ul (0.0-0.5); EOSINOPHILS % 6.7 % (0.0-7.0); HEMATOCRIT 33.7 % (42.0-52.0); HEMOGLOBIN 11.2 g/dl (14.0-18.0); LYMPHOCYTES # 1.4 10^3/ul (0.8-2.9); LYMPHOCYTES % 8.7 % (15.0-51.0); MEAN CORPUSCULAR HEMOGLOBIN 29.1 pg (29.0-33.0); MEAN CORPUSCULAR HGB CONC 33.1 g/dl (32.0-37.0); MEAN CORPUSCULAR VOLUME 87.9 fl (82.0-101.0); MEAN PLATELET VOLUME 10.6 fl (7.4-10.4); MONOCYTES % 6.2 % (0.0-11.0); NEUTROPHIL # 12.8 10^3/ul (1.6-7.5); NEUTROPHILS % 78.2 % (39.0-77.0); PLATELET COUNT 471 10^3/UL (140-440); RED BLOOD COUNT 3.84 10^6/ul (4.70-6.10); RED CELL DISTRIBUTION WIDTH 14.8 % (11.5-14.5); UNCORRECTED WBC 16.4 10^3/ul (4.8-10.8); WHITE BLOOD COUNT 16.4 10^3/ul (4.8-10.8)
[2016-10-27 05:14] LABS: POTASSIUM 3.8 mmol/L (3.5-5.1)
[2016-10-27 05:17] LABS: CREATININE 0.51 mg/dl (0.61-1.24)
[2016-10-27 05:57] LABS: CONDITION 1; LH ANALYZER COMMENTS 1
--- NOTE | 2016-10-27 07:40 | CONS ---
Date/Time of Note Date/Time of Note DATE: 10/27/16 TIME: 07:37 Consultation Date/Type/Reason Admit Date/Time Sep 15, 2016 at 16:54 Initial Consult Date 09/29/16 Type of Consultation: Pulmonary/critical care Referring Provider: JAN ZHANG 24 HR Interval Summary Free Text/Dictation Patient condition remains stable. Still requiring full ventilator support due to ongoing needs for high dose intravenous sedation. On top off methadone as well as fentanyl patch the patient is on. In between requirements for intravenous additional sedative dosing the patient mental status is quite adequate. Next General examination; middle aged man, on mechanical ventilation via tracheostomy currently sedated. No distress noted. Exam/Review of Systems Vital Signs Vitals Vital Signs Date Time Temp Pulse Resp B/P Pulse Ox O2 Delivery O2 Flow Rate FiO2 10/27/16 06:21 77 20 98 30 10/27/16 06:00 132/80 Mechanical Ventilator 10/27/16 04:00 98.6 Intake and Output 10/26/16 10/26/16 10/27/16 15:00 23:00 07:00 Intake Total 470 ml 420 ml 540 ml Output Total 725 ml 735 ml 340 ml Balance -255 ml -315 ml 200 ml Exam Current ventilator settings; SIMV of 16, tidal volume of 500, pressure support 10, PEEP of 5, 30% FiO2. Assessment and recommendations; 1. Patient admitted with extensive right-sided pneumonia. Status post VATS procedure as well as chest tube placement. Next 2. Severe drug withdrawal precluding extubation subsequently requiring tracheostomy and G-tube. Next 3. Currently on high-dose methadone as well as fentanyl patch with breakthrough anxiety requiring intravenous pulse dosing of Ativan. 4. History of drug abuse. Next 5. Hypertension. Next Continue current treatment. Patient awaiting transfer to rehab facility. Results Result Diagram: 10/27/16 0400 10/27/16 0400 Results 24 hrs Laboratory Tests Test 10/27/16 04:00 Anion Gap 13 Basophils # 0.0 Basophils % 0.2 Blood Morphology Comment Blood Urea Nitrogen 7 Calcium Level 9.0 Carbon Dioxide Level 33 H Chloride Level 97 Creatinine 0.51 L Eosinophils # 1.1 H Eosinophils % 6.7 Glucose Level 92 Hematocrit 33.7 L Hemoglobin 11.2 L Lymphocytes # 1.4 Lymphocytes % 8.7 L Mean Corpuscular Hemoglobin 29.1 Mean Corpuscular Hemoglobin Concent 33.1 Mean Corpuscular Volume 87.9 Mean Platelet Volume 10.6 H Monocytes # 1.0 H Monocytes % 6.2 Neutrophils # 12.8 H Neutrophils % 78.2 H Nucleated Red Blood Cells # 0.0 Nucleated Red Blood Cells % 0.0 Platelet Count 471 H Potassium Level 3.8 Red Blood Count 3.84 L Red Cell Distribution Width 14.8 H Sodium Level 139 White Blood Count 16.4 #H Medications Medications Current Medications Ondansetron HCl (Zofran Inj) 4 mg Q6H PRN IV NAUSEA AND/OR VOMITING; Start at 18:00 Morphine Sulfate (morphine) 2 mg Q4H PRN IV PAIN LEVEL 7-10 Last administered on 10/27/16 01:39; Admin Dose 2 MG; Start 09/15/16 at 18:00 Haloperidol (Haldol) 5 mg Q6H PRN IM AGITATION Last administered on 10/26/16 22 :41; Admin Dose 5 MG; Start 09/18/16 at 11:30 Metoclopramide HCl (Reglan) 10 mg Q12 IV Last administered on 10/26/16 20:27; Admin Dose 10 MG; Start 09/24/16 at 11:30 Acetaminophen (Tylenol Liquid) 650 mg Q4H PRN NGT PAIN AND OR ELEVATED TEMP Last administered on 10/14/16 19:56; Admin Dose 650 MG; Start 09/28/16 at 13:30 Lisinopril (Zestril) 2.5 mg DAILY GTB Last administered on 10/26/16 08:48; Admin Dose 2.5 MG; Start 10/02/16 at 09:00 Collagenase (Santyl) 1 applic DAILY TOP Last administered on 10/26/16 08:58; Admin Dose 1 APPLIC; Start 10/08/16 at 20:00 Nystatin (Nystatin Powder) 1 applic BID TOP Last administered on 10/26/16 20:28 ; Admin Dose 1 APPLIC; Start 10/08/16 at 21:00 Collagenase (Santyl) 1 applic PRN PRN TOP WOUND CARE Last administered on 07:54; Admin Dose 1 APPLIC; Start 10/08/16 at 17:30 Lorazepam (Ativan) 2 mg Q2H PRN IV AGITATION Last administered on 10/27/16 03: 41; Admin Dose 2 MG; Start 10/16/16 at 16:00 Carvedilol (Coreg) 3.125 mg BID GTB Last administered on 10/26/16 20:33; Admin Dose 3.125 MG; Start 10/16/16 at 21:00 Fentanyl (Duragesic 50 Mcg/Hr Patch) 1 patch Q72H TRANSDERM Last administered on 10/24/16 11:19; Admin Dose 1 PATCH; Start 10/21/16 at 11:30 Apixaban (Eliquis) 5 mg BID PO Last administered on 10/26/16 20:28; Admin Dose 5 MG; Start 10/23/16 at 10:00 Methadone HCl (Methadone) 20 mg Q6 PO Last administered on 10/27/16 06:00; Admin Dose 20 MG; Start 10/23/16 at 12:00 Lorazepam (Ativan) 2 mg Q2H PRN PEG AGITATION Last administered on 10/25/16 18: 43; Admin Dose 2 MG; Start 10/25/16 at 15:00 Docusate Sodium (Colace Liquid Cup) 200 mg BID PEG Last administered on 20:27; Admin Dose 200 MG; Start 10/25/16 at 21:00; Stop 11/15/16 at 08:00 Famotidine (Pepcid) 20 mg DAILY PO Last administered on 10/26/16 09:43; Admin Dose 20 MG; Start 10/26/16 at 09:00 ILYA HILL Oct 27, 2016 07:40
[2016-10-27] MEDS: DOCUSATE SODIUM 10 MG/ML (10ML CUP) PEG SCH ×2 (09:07→21:05)
[2016-10-27] MEDS: METOCLOPRAMIDE 10 MG INJ IV SCH ×2 (09:07→21:05)
[2016-10-27] MEDS: APIXABAN 5 MG TABLET PO SCH ×2 (09:07→21:05)
[2016-10-27] MEDS: LISINOPRIL 5 MG TAB GTB SCH (09:07)
[2016-10-27] MEDS: FAMOTIDINE 20 MG TAB PO SCH (09:08)
[2016-10-27] MEDS: NYSTATIN 30 GM POWDER BTL TOP SCH ×2 (09:08→21:09)
[2016-10-27] MEDS: COLLAGENASE 30 GM TUBE TOP SCH (09:09)
--- NOTE | 2016-10-27 09:56 | PQ ---
Date/Time of Note Date/Time of Note DATE: 10/27/16 TIME: 09:[address] Molina, A review of the medical record found a need for documentation clarification. progress note - " pneumonia , respiratory failure on ventilator" ID consult Clinical impression - " Sepsis dt Pneumonia" (10/02) WBC = 21.6 (adm) T= 100.6 NE = 110's (day 2) Please clarify if the following diagnosis: Sepsis Was: ( X ) Present on admission ( ) Not present on admission ( ) Clinically undetermined ( ) Please provide your response by clicking edit document, making your choice ( x ), click ok/save and finally click sign. You may also document your response on your progress notes. Thank you for your time. Silverio Barrera RN, BSN, CCS, CCDS Clinical Voice Professor Health Information Management, CDI and Coding Services [phone] Room # [facility] [address]~ [address] SILVERIO BARRERA Oct 27, 2016 09:56 DREW MOLINA Oct 28, 2016 12:09
[2016-10-27] MEDS: FENTAnyl PATCH 50 MCG/HR TRANSDERM SCH (11:30)
[2016-10-27] MEDS ORDERED: POLYETHYLENE GLYCOL 17 GM PACKET GTB PRN (13:30)
--- NOTE | 2016-10-27 13:42 | PN ---
Date/Time of Note Date/Time of Note DATE: 10/27/16 TIME: 13:32 Assessment/Plan VTE Prophylaxis VTE Prophylaxis Intervention: SCD's Lines/Catheters IV Catheter Type (from [facility]): Central Line Central line still needed: Yes Urinary Cath still in place: Yes Reason Cath still needed: urinary retention Assessment/Plan Chief Complaint/Hosp Course ASSESSMENT AND PLAN: - Acute respiratory failure patient, failed extubation. Continue ventilator support, weaning per pulmonology. Dr. Simons is following the patient from pulmonology consultation. - Right-sided pneumonia with complicated parapneumonic effusion, status post thoracentesis, s/p R chest tube placement. s/p treatment with abx. - Acute pulmonary emboli. Continue patient on Lovenox. 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 Dr. Luna is following from cardiology standpoint. - Encephalopathy, likely toxic metabolic, resolving. Continue to monitor. - Sepsis secondary to #2, resolved. - Status post tracheostomy by Dr. Marino on 10/20. - Status post G-tube placement by Dr. Galarza on 10/20 Continue Pepcid for peptic ulcer disease prophylaxis. Further recommendations based on clinical course. Plan of care discussed with Dr. Patel. Problems: Subjective 24 Hr Interval Summary Free Text/Dictation Patient tolerates SIMV mode well, continues on ventilator support, patient tolerates G-tube feeding well. Complains of constipation, start MiraLAX as needed. Exam/Review of Systems Vital Signs Vitals Vital Signs Date Time Temp Pulse Resp B/P Pulse Ox O2 Delivery O2 Flow Rate FiO2 10/27/16 13:00 67 108/71 100 10/27/16 12:00 98.2 16 Mechanical Ventilator 10/27/16 11:31 30 Intake and Output 10/26/16 10/26/16 10/27/16 15:00 23:00 07:00 Intake Total 470 ml 420 ml 580 ml Output Total 725 ml 735 ml 390 ml Balance -255 ml -315 ml 190 ml Exam GENERAL: Well-developed, well-nourished male, tracheostomy to vent support, awake alert to name. LUNGS: Diminished with scattered rhonchi bilaterally. HEART: Normal S1, S2. No murmurs, gallops, clicks, rubs noted. ABDOMEN: Round, soft, nondistended, nontender. Bowel sounds present. EXTREMITIES: No edema, clubbing, cyanosis. Pulses equal bilaterally 2+. SKIN: There is no rash. NEUROLOGIC: Awake alert Results Result Diagram: 10/27/1639910/27/16399 Results 24 hrs Laboratory Tests Test 10/27/16 04:00 Anion Gap 13 Basophils # 0.0 Basophils % 0.2 Blood Morphology Comment Blood Urea Nitrogen 7 Calcium Level 9.0 Carbon Dioxide Level 33 H Chloride Level 97 Creatinine 0.51 L Eosinophils # 1.1 H Eosinophils % 6.7 Glucose Level 92 Hematocrit 33.7 L Hemoglobin 11.2 L Lymphocytes # 1.4 Lymphocytes % 8.7 L Mean Corpuscular Hemoglobin 29.1 Mean Corpuscular Hemoglobin Concent 33.1 Mean Corpuscular Volume 87.9 Mean Platelet Volume 10.6 H Monocytes # 1.0 H Monocytes % 6.2 Neutrophils # 12.8 H Neutrophils % 78.2 H Nucleated Red Blood Cells # 0.0 Nucleated Red Blood Cells % 0.0 Platelet Count 471 H Potassium Level 3.8 Red Blood Count 3.84 L Red Cell Distribution Width 14.8 H Sodium Level 139 White Blood Count 16.4 #H Medications Medications Current Medications Ondansetron HCl (Zofran Inj) 4 mg Q6H PRN IV NAUSEA AND/OR VOMITING; Start at 18:00 Morphine Sulfate (morphine) 2 mg Q4H PRN IV PAIN LEVEL 7-10 Last administered on 10/27/16 01:39; Admin Dose 2 MG; Start 09/15/16 at 18:00 Haloperidol (Haldol) 5 mg Q6H PRN IM AGITATION Last administered on 10/26/16 22 :41; Admin Dose 5 MG; Start 09/18/16 at 11:30 Metoclopramide HCl (Reglan) 10 mg Q12 IV Last administered on 10/27/16 09:07; Admin Dose 10 MG; Start 09/24/16 at 11:30 Acetaminophen (Tylenol Liquid) 650 mg Q4H PRN NGT PAIN AND OR ELEVATED TEMP Last administered on 10/14/16 19:56; Admin Dose 650 MG; Start 09/28/16 at 13:30 Lisinopril (Zestril) 2.5 mg DAILY GTB Last administered on 10/27/16 09:07; Admin Dose 2.5 MG; Start 10/02/16 at 09:00 Collagenase (Santyl) 1 applic DAILY TOP Last administered on 10/27/16 09:09; Admin Dose 1 APPLIC; Start 10/08/16 at 20:00 Nystatin (Nystatin Powder) 1 applic BID TOP Last administered on 10/27/16 09:08 ; Admin Dose 1 APPLIC; Start 10/08/16 at 21:00 Collagenase (Santyl) 1 applic PRN PRN TOP WOUND CARE Last administered on 07:54; Admin Dose 1 APPLIC; Start 10/08/16 at 17:30 Lorazepam (Ativan) 2 mg Q2H PRN IV AGITATION Last administered on 10/27/16 03: 41; Admin Dose 2 MG; Start 10/16/16 at 16:00 Carvedilol (Coreg) 3.125 mg BID GTB Last administered on 10/27/16 09:02; Admin Dose 3.125 MG; Start 10/16/16 at 21:00 Fentanyl (Duragesic 50 Mcg/Hr Patch) 1 patch Q72H TRANSDERM Last administered on 10/24/16 11:19; Admin Dose 1 PATCH; Start 10/21/16 at 11:30 Apixaban (Eliquis) 5 mg BID PO Last administered on 10/27/16 09:07; Admin Dose 5 MG; Start 10/23/16 at 10:00 Methadone HCl (Methadone) 20 mg Q6 PO Last administered on 10/27/16 13:03; Admin Dose 20 MG; Start 10/23/16 at 12:00 Lorazepam (Ativan) 2 mg Q2H PRN PEG AGITATION Last administered on 10/25/16 18: 43; Admin Dose 2 MG; Start 10/25/16 at 15:00 Docusate Sodium (Colace Liquid Cup) 200 mg BID PEG Last administered on 09:07; Admin Dose 200 MG; Start 10/25/16 at 21:00; Stop 11/15/16 at 08:00 Famotidine (Pepcid) 20 mg DAILY PO Last administered on 10/27/16 09:08; Admin Dose 20 MG; Start 10/26/16 at 09:00 Polyethylene Glycol (Miralax) 17 gm DAILY PRN GTB CONSTIPATION; Start 10/27/16 at 13:30; Status YOUNGV JAN ZHANG Oct 27, 2016 13:41
--- NOTE | 2016-10-27 14:03 | CONS ---
Date/Time of Note Date/Time of Note DATE: 10/27/16 TIME: 14:01 Assessment/Plan Assessment/Plan Chief Complaint/Hosp Course assessment/impression - h/o sepsis, septic shock - h/o post-op fever and leukocytosis - h/o pneumonia with parapneumonic effusion. Could be started as CAP, other considerations include aspiration PNA. - h/o recurrent right pleural effusion. s/p diagnostic thoracentesis on 09/22/16. It showed glu=74 pro <2, MKS=[id number]. No malignancy on cytology. s/p repeat thoracentesis 10/01/16, no malignancy on cytology. R chest tube placed 10/07/16. 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) - h/o transaminitis, possibly shock liver, improved - h/o drug rash likely d/t pip/tazo, resolving - antimicrobial history: ashlyn (09/19/16-10/04/16, 10/08/16-10/10/16), azithromycin (10/02/16-10/06/16), pip/tazo (09/29/16-10/08/16), Tamiflu (10/02/16-10/08/16), ashlyn - negative results: rapid influenza screen, PPD, legionella antigen, mycoplasma pneumoniae, chlamydia pneumoniae serology, and respiratory viral panel; AFB smear (09/29, 09/30, 10/01, 10/08, 10/13) recommendations: - in light of leukocytosis, ordered: blood cultures, urinalysis and urine culture for surveillance - I recommend d/c central line - management d/w charge nurse - the critical care time I took to care for this Pt today was from 1315 to 1345 Problems: Consultation Date/Type/Reason Admit Date/Time Sep 15, 2016 at 16:54 Initial Consult Date 09/29/16 Type of Consultation: ID Referring Provider: JAN ZHANG 24 HR Interval Summary Subjective hx not possible: pt non-verbal Exam/Review of Systems Vital Signs Vitals Vital Signs Date Time Temp Pulse Resp B/P Pulse Ox O2 Delivery O2 Flow Rate FiO2 10/27/16 13:00 67 108/71 100 10/27/16 12:00 98.2 16 Mechanical Ventilator 10/27/16 11:31 30 Intake and Output 10/26/16 10/26/16 10/27/16 15:00 23:00 07:00 Intake Total 470 ml 420 ml 580 ml Output Total 725 ml 735 ml 390 ml Balance -255 ml -315 ml 190 ml Exam Constitutional: frail, non-verbal Psych: confusion Head: atraumatic, normocephalic Eyes: nl conjunctiva, nl lids, nl sclera ENMT: nl external ears & nose, nl nasal mucosa & septum Neck: other (trach) Respiratory: diminished breath sounds Cardiovascular: nl pulses, regular rate and rhythm Gastrointestinal: non-tender, other (GT), soft Genitourinary - Male: other (FC) Musculoskeletal: nl extremities to inspection Extremities: No edema Neurological: confused Results Result Diagram: 10/27/16 04010/27/16 0400 Results 24 hrs Laboratory Tests Test 10/27/16 04:00 Anion Gap 13 Basophils # 0.0 Basophils % 0.2 Blood Morphology Comment Blood Urea Nitrogen 7 Calcium Level 9.0 Carbon Dioxide Level 33 H Chloride Level 97 Creatinine 0.51 L Eosinophils # 1.1 H Eosinophils % 6.7 Glucose Level 92 Hematocrit 33.7 L Hemoglobin 11.2 L Lymphocytes # 1.4 Lymphocytes % 8.7 L Mean Corpuscular Hemoglobin 29.1 Mean Corpuscular Hemoglobin Concent 33.1 Mean Corpuscular Volume 87.9 Mean Platelet Volume 10.6 H Monocytes # 1.0 H Monocytes % 6.2 Neutrophils # 12.8 H Neutrophils % 78.2 H Nucleated Red Blood Cells # 0.0 Nucleated Red Blood Cells % 0.0 Platelet Count 471 H Potassium Level 3.8 Red Blood Count 3.84 L Red Cell Distribution Width 14.8 H Sodium Level 139 White Blood Count 16.4 #H Medications Medications Current Medications Ondansetron HCl (Zofran Inj) 4 mg Q6H PRN IV NAUSEA AND/OR VOMITING; Start at 18:00 Morphine Sulfate (morphine) 2 mg Q4H PRN IV PAIN LEVEL 7-10 Last administered on 10/27/16t 01:39; Admin Dose 2 MG; Start 09/15/16 at 18:00 Haloperidol (Haldol) 5 mg Q6H PRN IM AGITATION Last administered on 10/26/16 22 :41; Admin Dose 5 MG; Start 09/18/16 at 11:30 Metoclopramide HCl (Reglan) 10 mg Q12 IV Last administered on 10/27/16 09:07; Admin Dose 10 MG; Start 09/24/16 at 11:30 Acetaminophen (Tylenol Liquid) 650 mg Q4H PRN NGT PAIN AND OR ELEVATED TEMP Last administered on 10/14/16 19:56; Admin Dose 650 MG; Start 09/28/16 at 13:30 Lisinopril (Zestril) 2.5 mg DAILY GTB Last administered on 10/27/16 09:07; Admin Dose 2.5 MG; Start 10/02/16 at 09:00 Collagenase (Santyl) 1 applic DAILY TOP Last administered on 10/27/16 09:09; Admin Dose 1 APPLIC; Start 10/08/16 at 20:00 Nystatin (Nystatin Powder) 1 applic BID TOP Last administered on 10/27/16 09:08 ; Admin Dose 1 APPLIC; Start 10/08/16 at 21:00 Collagenase (Santyl) 1 applic PRN PRN TOP WOUND CARE Last administered on 07:54; Admin Dose 1 APPLIC; Start 10/08/16 at 17:30 Lorazepam (Ativan) 2 mg Q2H PRN IV AGITATION Last administered on 10/27/16 03: 41; Admin Dose 2 MG; Start 10/16/16 at 16:00 Carvedilol (Coreg) 3.125 mg BID GTB Last administered on 10/27/16 09:02; Admin Dose 3.125 MG; Start 10/16/16 at 21:00 Fentanyl (Duragesic 50 Mcg/Hr Patch) 1 patch Q72H TRANSDERM Last administered on 10/27/16 11:30; Admin Dose 1 PATCH; Start 10/21/16 at 11:30 Apixaban (Eliquis) 5 mg BID PO Last administered on 10/27/16 09:07; Admin Dose 5 MG; Start 10/23/16 at 10:00 Methadone HCl (Methadone) 20 mg Q6 PO Last administered on 10/27/16 13:03; Admin Dose 20 MG; Start 10/23/16 at 12:00 Lorazepam (Ativan) 2 mg Q2H PRN PEG AGITATION Last administered on 10/25/16 18: 43; Admin Dose 2 MG; Start 10/25/16 at 15:00 Docusate Sodium (Colace Liquid Cup) 200 mg BID PEG Last administered on 09:07; Admin Dose 200 MG; Start 10/25/16 at 21:00; Stop 11/15/16 at 08:00 Famotidine (Pepcid) 20 mg DAILY PO Last administered on 10/27/16 09:08; Admin Dose 20 MG; Start 10/26/16 at 09:00 Polyethylene Glycol (Miralax) 17 gm DAILY PRN GTB CONSTIPATION; Start 10/27/16 at 13:30 MIGUEL ERNST M.D. Oct 27, 2016 14:03
--- NOTE | 2016-10-27 15:14 | PN ---
Date/Time of Note Date/Time of Note DATE: 10/27/16 TIME: 15:13 Assessment/Plan Lines/Catheters IV Catheter Type (from Nrsg): Central Line Tang in Place (from Nrsg): Yes Assessment/Plan Chief Complaint/Hosp Course IMPRESSION 1. Pulmonary embolism. 2. Pneumonia. 3 Pleural effusion RECOMMENDATIONS: SP CT placement SP Trach will continue vent support trach care Problems: Subjective 24 Hr Interval Summary Constitutional: improved Pain Control: mild Exam/Review of Systems Vital Signs Vitals Vital Signs Date Time Temp Pulse Resp B/P Pulse Ox O2 Delivery O2 Flow Rate FiO2 10/27/16 13:00 67 108/71 100 10/27/16 12:00 98.2 16 Mechanical Ventilator 10/27/16 11:31 30 Intake and Output 10/26/16 10/26/16 10/27/16 15:00 23:00 07:00 Intake Total 470 ml 420 ml 580 ml Output Total 725 ml 735 ml 390 ml Balance -255 ml -315 ml 190 ml Exam Neck: non-tender, supple Respiratory: clear to auscultation, normal air movement Cardiovascular: nl pulses, regular rate and rhythm Gastrointestinal: nl liver, spleen, non-tender, soft Results Result Diagram: 10/27/160 10/27/16399 MALEYOUNG DHALIWAL MD Oct 27, 2016 15:14
--- NOTE | 2016-10-27 16:15 | CONS ---
Date/Time of Note Date/Time of Note DATE: 10/27/16 TIME: 16:14 Assessment/Plan Assessment/Plan Additional Assessment/Plan Respiratory failure Pulmonary emboli Acute decompensated systolic congestive heart failure Severe biventricular cardiomyopathy with left ventricular ejection fraction 20% Pleural effusion -Continue beta beatriz and HILDA inhibitor as blood pressure renal function permits. Continue ventilator weaning. Continue anticoagulation secondary to pulmonary emboli. Okay to transfer to telemetry at the current time Consultation Date/Type/Reason Admit Date/Time Sep 15, 2016 at 16:54 Initial Consult Date 09/29/16 Type of Consultation: cv Referring Provider: JAN ZHANG 24 HR Interval Summary Free Text/Dictation Patient denies chest pain or shortness of breath. Still with episodes of trying to get out of bed needing restraints Exam/Review of Systems Vital Signs Vitals Vital Signs Date Time Temp Pulse Resp B/P Pulse Ox O2 Delivery O2 Flow Rate FiO2 10/27/16 16:00 57 10/27/16 16:00 25 101/67 Mechanical Ventilator 10/27/16 15:25 100 30 10/27/16 12:00 98.2 Intake and Output 10/26/16 10/26/16 10/27/16 15:00 23:00 07:00 Intake Total 470 ml 420 ml 580 ml Output Total 725 ml 735 ml 390 ml Balance -255 ml -315 ml 190 ml Exam Follows some commands, no apparent distress Constitutional: alert, oriented Head: normocephalic Neck: other (tracheostomy) Respiratory: other (course breath sounds bilaterally, no wheezing) Cardiovascular: other (S1-S2 heard), regular rate and rhythm Gastrointestinal: bowel sounds, non-tender, soft Extremities: other (no guarding) Results Result Diagram: 10/27/16 0400 10/27/16 0400 Results 24 hrs Laboratory Tests Test 10/27/16 04:00 Anion Gap 13 Basophils # 0.0 Basophils % 0.2 Blood Morphology Comment Blood Urea Nitrogen 7 Calcium Level 9.0 Carbon Dioxide Level 33 H Chloride Level 97 Creatinine 0.51 L Eosinophils # 1.1 H Eosinophils % 6.7 Glucose Level 92 Hematocrit 33.7 L Hemoglobin 11.2 L Lymphocytes # 1.4 Lymphocytes % 8.7 L Mean Corpuscular Hemoglobin 29.1 Mean Corpuscular Hemoglobin Concent 33.1 Mean Corpuscular Volume 87.9 Mean Platelet Volume 10.6 H Monocytes # 1.0 H Monocytes % 6.2 Neutrophils # 12.8 H Neutrophils % 78.2 H Nucleated Red Blood Cells # 0.0 Nucleated Red Blood Cells % 0.0 Platelet Count 471 H Potassium Level 3.8 Red Blood Count 3.84 L Red Cell Distribution Width 14.8 H Sodium Level 139 White Blood Count 16.4 #H Medications Medications Current Medications Ondansetron HCl (Zofran Inj) 4 mg Q6H PRN IV NAUSEA AND/OR VOMITING; Start at 18:00 Morphine Sulfate (morphine) 2 mg Q4H PRN IV PAIN LEVEL 7-10 Last administered on 10/27/16 01:39; Admin Dose 2 MG; Start 09/15/16 at 18:00 Haloperidol (Haldol) 5 mg Q6H PRN IM AGITATION Last administered on 10/26/16 22 :41; Admin Dose 5 MG; Start 09/18/16 at 11:30 Metoclopramide HCl (Reglan) 10 mg Q12 IV Last administered on 10/27/16 09:07; Admin Dose 10 MG; Start 09/24/16 at 11:30 Acetaminophen (Tylenol Liquid) 650 mg Q4H PRN NGT PAIN AND OR ELEVATED TEMP Last administered on 10/14/16 19:56; Admin Dose 650 MG; Start 09/28/16 at 13:30 Lisinopril (Zestril) 2.5 mg DAILY GTB Last administered on 10/27/16 09:07; Admin Dose 2.5 MG; Start 10/02/16 at 09:00 Collagenase (Santyl) 1 applic DAILY TOP Last administered on 10/27/16 09:09; Admin Dose 1 APPLIC; Start 10/08/16 at 20:00 Nystatin (Nystatin Powder) 1 applic BID TOP Last administered on 10/27/16 09:08 ; Admin Dose 1 APPLIC; Start 10/08/16 at 21:00 Collagenase (Santyl) 1 applic PRN PRN TOP WOUND CARE Last administered on 07:54; Admin Dose 1 APPLIC; Start 10/08/16 at 17:30 Lorazepam (Ativan) 2 mg Q2H PRN IV AGITATION Last administered on 10/27/16 15: 48; Admin Dose 2 MG; Start 10/16/16 at 16:00 Carvedilol (Coreg) 3.125 mg BID GTB Last administered on 10/27/16 09:02; Admin Dose 3.125 MG; Start 10/16/16 at 21:00 Fentanyl (Duragesic 50 Mcg/Hr Patch) 1 patch Q72H TRANSDERM Last administered on 10/27/16 11:30; Admin Dose 1 PATCH; Start 10/21/16 at 11:30 Apixaban (Eliquis) 5 mg BID PO Last administered on 10/27/16 09:07; Admin Dose 5 MG; Start 10/23/16 at 10:00 Methadone HCl (Methadone) 20 mg Q6 PO Last administered on 10/27/16 13:48; Admin Dose 20 MG; Start 10/23/16 at 12:00 Lorazepam (Ativan) 2 mg Q2H PRN PEG AGITATION Last administered on 10/25/16 18: 43; Admin Dose 2 MG; Start 10/25/16 at 15:00 Docusate Sodium (Colace Liquid Cup) 200 mg BID PEG Last administered on 09:07; Admin Dose 200 MG; Start 10/25/16 at 21:00; Stop 11/15/16 at 08:00 Famotidine (Pepcid) 20 mg DAILY PO Last administered on 10/27/16 09:08; Admin Dose 20 MG; Start 10/26/16 at 09:00 Polyethylene Glycol (Miralax) 17 gm DAILY PRN GTB CONSTIPATION; Start 10/27/16 at 13:30 Nikolay Luna DO Oct 27, 2016 16:15
[2016-10-27] MEDS: HALOPERIDOL 5 MG INJ IM PRN (23:17)
[2016-10-28] VITALS (29 sets, daily range): BP systolic 86–177; BP diastolic 45–87; PULSE 52–71; RESP 16–23
[2016-10-28] MEDS: METHADONE 10 MG TAB PO SCH ×4 (00:50→18:06)
--- NOTE | 2016-10-28 08:41 | RADRPT ---
PROCEDURE: XR Chest AP portable CLINICAL INDICATION: Hemothorax TECHNIQUE: An AP portable radiograph of the chest was submitted. COMPARISON: 10/26/2016 FINDINGS: Support Hardware: The tracheostomy tube, the right subclavian central venous catheter, and the right -sided thoracostomy tube are stable positioning. Cardiovascular: The heart remains mildly enlarged while the piriform plantar vasculature is unremark able. The aorta appears mildly tortuous. Lung Daley: There is increasing discoid atelectasis at the right lung base. Pleural Spaces: There is a small subpulmonic pneumothorax on the right with development of a small p leural fluid accumulation. Osseous Structures: Mild degenerative spine changes are again noted. Soft Tissues: The soft tissues appear unremarkable. IMPRESSION: 1. The tubes and lines are stable positioning. 2. There is no a small subpulmonic pneumothorax on the right of 5-10% by volume. 3. Development of a small right pleural fluid accumulation. 4. Mild cardiomegaly with mild aortic tortuosity without evidence of CHF. Physician Joanna Date Time Electronically viewed and signed by Physician Joanna on 10/28/2016 08:41 /
[2016-10-28] MEDS: METOCLOPRAMIDE 10 MG INJ IV SCH ×2 (09:40→21:31)
[2016-10-28] MEDS: APIXABAN 5 MG TABLET PO SCH ×2 (09:40→21:34)
[2016-10-28] MEDS: FAMOTIDINE 20 MG TAB PO SCH (09:40)
[2016-10-28] MEDS: NYSTATIN 30 GM POWDER BTL TOP SCH ×2 (09:41→21:34)
[2016-10-28] MEDS: COLLAGENASE 30 GM TUBE TOP SCH (09:41)
[2016-10-28] MEDS: DOCUSATE SODIUM 10 MG/ML (10ML CUP) PEG SCH ×2 (09:42→21:33)
[2016-10-28] MEDS: LISINOPRIL 5 MG TAB GTB SCH (09:43)
[2016-10-28 09:54] LABS: BASOPHIL # 0.1 10^3/ul (0.0-0.1); BASOPHILS % 0.4 % (0.0-2.0); EOSINOPHILS # 1.6 10^3/ul (0.0-0.5); EOSINOPHILS % 11.2 % (0.0-7.0); HEMATOCRIT 31.8 % (42.0-52.0); HEMOGLOBIN 10.6 g/dl (14.0-18.0); LYMPHOCYTES # 1.2 10^3/ul (0.8-2.9); LYMPHOCYTES % 8.2 % (15.0-51.0); MEAN CORPUSCULAR HEMOGLOBIN 29.1 pg (29.0-33.0); MEAN CORPUSCULAR HGB CONC 33.4 g/dl (32.0-37.0); MEAN CORPUSCULAR VOLUME 87.2 fl (82.0-101.0); MEAN PLATELET VOLUME 9.3 fl (7.4-10.4); MONOCYTE # 1.2 10^3/ul (0.3-0.9); MONOCYTES % 8.2 % (0.0-11.0); NEUTROPHIL # 10.2 10^3/ul (1.6-7.5); PLATELET COUNT 480 10^3/UL (140-440); RED BLOOD COUNT 3.64 10^6/ul (4.70-6.10); RED CELL DISTRIBUTION WIDTH 15.1 % (11.5-14.5); UNCORRECTED WBC 14.2 10^3/ul (4.8-10.8); WHITE BLOOD COUNT 14.2 10^3/ul (4.8-10.8)
--- NOTE | 2016-10-28 10:03 | CONS ---
Date/Time of Note Date/Time of Note DATE: 10/28/16 TIME: 10:01 Assessment/Plan Assessment/Plan Chief Complaint/Hosp Course assessment/impression - leukocytosis - skin ulcer under the trach - h/o sepsis, septic shock - h/o post-op fever - h/o pneumonia with parapneumonic effusion. Could be started as CAP, other considerations include aspiration PNA. - h/o recurrent right pleural effusion. s/p diagnostic thoracentesis on 09/22/16. It showed glu=74 pro <2, GFF=3766. No malignancy on cytology. s/p repeat thoracentesis 10/01/16, no malignancy on cytology. R chest tube placed 10/07/16. 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) - h/o transaminitis, possibly shock liver, improved - h/o drug rash likely d/t pip/tazo, resolving - antimicrobial history: ashlyn (09/19/16-10/04/16, 10/08/16-10/10/16), azithromycin (10/02/16-10/06/16), pip/tazo (09/29/16-10/08/16), Tamiflu (10/02/16-10/08/16) - negative results: rapid influenza screen, PPD, legionella antigen, mycoplasma pneumoniae, chlamydia pneumoniae serology, and respiratory viral panel; AFB smear (09/29, 09/30, 10/01, 10/08, 10/13) recommendations: - pending results: blood cultures from 10/27/2016 - I ordered urinalysis and urine culture on this Pt prior to transfer to telemetry floor on 10/27/2016, they were not done. Pt's RN today collected the specimen - I ordered swab of the skin under the trach - I recommend d/c central line management d/w Pt's RN Problems: Consultation Date/Type/Reason Admit Date/Time Sep 15, 2016 at 16:54 Initial Consult Date 09/29/16 Type of Consultation: ID Referring Provider: JAN ZHANG 24 HR Interval Summary Subjective hx not possible: pt non-verbal Exam/Review of Systems Vital Signs Vitals Vital Signs Date Time Temp Pulse Resp B/P Pulse Ox O2 Delivery O2 Flow Rate FiO2 10/28/16 09:34 102 16 100 30 10/28/16 08:09 98.7 120/75 10/27/16 18:00 Mechanical Ventilator Intake and Output 10/27/16 10/27/16 10/28/16 15:00 23:00 07:00 Intake Total 440 ml 120 ml 680 ml Output Total 350 ml 160 ml 310 ml Balance 90 ml -40 ml 370 ml Exam Constitutional: frail, non-verbal Psych: confusion Head: atraumatic, normocephalic Eyes: nl lids, nl sclera ENMT: nl external ears & nose, nl nasal mucosa & septum Neck: other (trach, under the trach has an ulcer with purulence) Respiratory: crackles/rales, other (CT on R side, dressed) Cardiovascular: nl pulses, regular rate and rhythm Gastrointestinal: non-tender, other (GT), soft Extremities: normal pulses Neurological: confused, lethargic Skin: rash or lesions (ulcer under the trach with purulence) Results Result Diagram: 10/27/16 0400 10/27/16 0400 Medications Medications Current Medications Ondansetron HCl (Zofran Inj) 4 mg Q6H PRN IV NAUSEA AND/OR VOMITING; Start at 18:00 Morphine Sulfate (morphine) 2 mg Q4H PRN IV PAIN LEVEL 7-10 Last administered on 10/27/16 01:39; Admin Dose 2 MG; Start 09/15/16 at 18:00 Haloperidol (Haldol) 5 mg Q6H PRN IM AGITATION Last administered on 10/27/16 23 :17; Admin Dose 5 MG; Start 09/18/16 at 11:30 Metoclopramide HCl (Reglan) 10 mg Q12 IV Last administered on 10/28/16 09:40; Admin Dose 10 MG; Start 09/24/16 at 11:30 Acetaminophen (Tylenol Liquid) 650 mg Q4H PRN NGT PAIN AND OR ELEVATED TEMP Last administered on 10/14/16 19:56; Admin Dose 650 MG; Start 09/28/16 at 13:30 Lisinopril (Zestril) 2.5 mg DAILY GTB Last administered on 10/28/16 09:43; Admin Dose 2.5 MG; Start 10/02/16 at 09:00 Collagenase (Santyl) 1 applic DAILY TOP Last administered on 10/28/16 09:41; Admin Dose 1 APPLIC; Start 10/08/16 at 20:00 Nystatin (Nystatin Powder) 1 applic BID TOP Last administered on 10/28/16 09:41 ; Admin Dose 1 APPLIC; Start 10/08/16 at 21:00 Collagenase (Santyl) 1 applic PRN PRN TOP WOUND CARE Last administered on 07:54; Admin Dose 1 APPLIC; Start 10/08/16 at 17:30 Lorazepam (Ativan) 2 mg Q2H PRN IV AGITATION Last administered on 10/27/16 22: 34; Admin Dose 2 MG; Start 10/16/16 at 16:00 Carvedilol (Coreg) 3.125 mg BID GTB Last administered on 10/28/16 09:43; Admin Dose 3.125 MG; Start 10/16/16 at 21:00 Fentanyl (Duragesic 50 Mcg/Hr Patch) 1 patch Q72H TRANSDERM Last administered on 10/27/16 11:30; Admin Dose 1 PATCH; Start 10/21/16 at 11:30 Apixaban (Eliquis) 5 mg BID PO Last administered on 10/28/16 09:40; Admin Dose 5 MG; Start 10/23/16 at 10:00 Methadone HCl (Methadone) 20 mg Q6 PO Last administered on 10/28/16 06:19; Admin Dose 20 MG; Start 10/23/16 at 12:00 Lorazepam (Ativan) 2 mg Q2H PRN PEG AGITATION Last administered on 10/25/16 18: 43; Admin Dose 2 MG; Start 10/25/16 at 15:00 Docusate Sodium (Colace Liquid Cup) 200 mg BID PEG Last administered on 09:42; Admin Dose 200 MG; Start 10/25/16 at 21:00; Stop 11/15/16 at 08:00 Famotidine (Pepcid) 20 mg DAILY PO Last administered on 10/28/16 09:40; Admin Dose 20 MG; Start 10/26/16 at 09:00 Polyethylene Glycol (Miralax) 17 gm DAILY PRN GTB CONSTIPATION; Start 10/27/16 at 13:30 MIGUEL ERNST M.D. Oct 28, 2016 10:02
[2016-10-28 10:05] LABS: CONDITION 1; LH ANALYZER COMMENTS 1
[2016-10-28 10:12] LABS: POTASSIUM 4.1 mmol/L (3.5-5.1)
[2016-10-28 10:15] LABS: CREATININE 0.55 mg/dl (0.61-1.24)
[2016-10-28 10:16] LABS: CALCIUM 8.9 mg/dl (8.4-10.2)
--- NOTE | 2016-10-28 10:49 | CONS ---
Date/Time of Note Date/Time of Note DATE: 10/28/16 TIME: 10:47 Consultation Date/Type/Reason Admit Date/Time Sep 15, 2016 at 16:54 Initial Consult Date 09/29/16 Type of Consultation: Pulmonary/critical care Referring Provider: JAN ZHANG 24 HR Interval Summary Free Text/Dictation Patient condition is stable. Still requiring full ventilator support. Has been transferred out of ICU to telemetry unit. Patient currently completely awake alert and does not appear to be in any distress. Further weaning from mechanical ventilation is precluded because of intermittent use of sedation because of episodes of severe agitation off and on. Next General examination; middle aged man, on mechanical ventilation via tracheostomy currently in no distress. Awake and alert. Exam/Review of Systems Vital Signs Vitals Vital Signs Date Time Temp Pulse Resp B/P Pulse Ox O2 Delivery O2 Flow Rate FiO2 10/28/16 09:34 102 16 100 30 10/28/16 08:09 98.7 120/75 10/27/16 18:00 Mechanical Ventilator Intake and Output 10/27/16 10/27/16 10/28/16 15:00 23:00 07:00 Intake Total 440 ml 120 ml 680 ml Output Total 350 ml 160 ml 310 ml Balance 90 ml -40 ml 370 ml Exam H EENT examination; supple neck, tracheostomy in place with clean insertion site. Pharynx is clear. Good dentition. Pupils are midsize reactive to light. Chest examination; clear to auscultation. Right-sided chest tube in place. S1- S2 audible, no murmurs, regular rate and rhythm. Abdomen examination; soft, nontender, no organomegaly. G-tube in place. Bowel sounds audible. Extremity examination; no peripheral edema. [employer] examination; no focal deficit. Current ventilator settings; SIMV of 16, tidal volume 500, pressure support 10, PEEP of 5, 30% FiO2. Next Continue current treatment. Results Result Diagram: 10/28/1640 10/28/16 0940 Results 24 hrs Laboratory Tests Test 10/28/16 09:40 Anion Gap 13 Basophils # 0.1 Basophils % 0.4 Blood Morphology Comment Blood Urea Nitrogen 9 Calcium Level 8.9 Carbon Dioxide Level 33 H Chloride Level 96 L Creatinine 0.55 L Eosinophils # 1.6 H Eosinophils % 11.2 H Glucose Level 108 Hematocrit 31.8 L Hemoglobin 10.6 L Lymphocytes # 1.2 Lymphocytes % 8.2 L Mean Corpuscular Hemoglobin 29.1 Mean Corpuscular Hemoglobin Concent 33.4 Mean Corpuscular Volume 87.2 Mean Platelet Volume 9.3 Monocytes # 1.2 H Monocytes % 8.2 Neutrophils # 10.2 H Neutrophils % 72.0 Nucleated Red Blood Cells # 0.0 Nucleated Red Blood Cells % 0.0 Platelet Count 480 H Potassium Level 4.1 Red Blood Count 3.64 L Red Cell Distribution Width 15.1 H Sodium Level 138 White Blood Count 14.2 H Medications Medications Current Medications Ondansetron HCl (Zofran Inj) 4 mg Q6H PRN IV NAUSEA AND/OR VOMITING; Start at 18:00 Morphine Sulfate (morphine) 2 mg Q4H PRN IV PAIN LEVEL 7-10 Last administered on 10/27/16 01:39; Admin Dose 2 MG; Start 09/15/16 at 18:00 Haloperidol (Haldol) 5 mg Q6H PRN IM AGITATION Last administered on 10/27/16 23 :17; Admin Dose 5 MG; Start 09/18/16 at 11:30 Metoclopramide HCl (Reglan) 10 mg Q12 IV Last administered on 10/28/16 09:40; Admin Dose 10 MG; Start 09/24/16 at 11:30 Acetaminophen (Tylenol Liquid) 650 mg Q4H PRN NGT PAIN AND OR ELEVATED TEMP Last administered on 10/14/16 19:56; Admin Dose 650 MG; Start 09/28/16 at 13:30 Lisinopril (Zestril) 2.5 mg DAILY GTB Last administered on 10/28/16 09:43; Admin Dose 2.5 MG; Start 10/02/16 at 09:00 Collagenase (Santyl) 1 applic DAILY TOP Last administered on 10/28/16 09:41; Admin Dose 1 APPLIC; Start 10/08/16 at 20:00 Nystatin (Nystatin Powder) 1 applic BID TOP Last administered on 10/28/16 09:41 ; Admin Dose 1 APPLIC; Start 10/08/16 at 21:00 Collagenase (Santyl) 1 applic PRN PRN TOP WOUND CARE Last administered on 07:54; Admin Dose 1 APPLIC; Start 10/08/16 at 17:30 Lorazepam (Ativan) 2 mg Q2H PRN IV AGITATION Last administered on 10/27/16 22: 34; Admin Dose 2 MG; Start 10/16/16 at 16:00 Carvedilol (Coreg) 3.125 mg BID GTB Last administered on 10/28/16 09:43; Admin Dose 3.125 MG; Start 10/16/16 at 21:00 Fentanyl (Duragesic 50 Mcg/Hr Patch) 1 patch Q72H TRANSDERM Last administered on 10/27/16 11:30; Admin Dose 1 PATCH; Start 10/21/16 at 11:30 Apixaban (Eliquis) 5 mg BID PO Last administered on 10/28/16 09:40; Admin Dose 5 MG; Start 10/23/16 at 10:00 Methadone HCl (Methadone) 20 mg Q6 PO Last administered on 10/28/16 06:19; Admin Dose 20 MG; Start 10/23/16 at 12:00 Lorazepam (Ativan) 2 mg Q2H PRN PEG AGITATION Last administered on 10/25/16 18: 43; Admin Dose 2 MG; Start 10/25/16 at 15:00 Docusate Sodium (Colace Liquid Cup) 200 mg BID PEG Last administered on 09:42; Admin Dose 200 MG; Start 10/25/16 at 21:00; Stop 11/15/16 at 08:00 Famotidine (Pepcid) 20 mg DAILY PO Last administered on 10/28/16 09:40; Admin Dose 20 MG; Start 10/26/16 at 09:00 Polyethylene Glycol (Miralax) 17 gm DAILY PRN GTB CONSTIPATION; Start 10/27/16 at 13:30 ILYA HILL Oct 28, 2016 10:49
[2016-10-28 10:55] LABS: ADD UMIC YES; URINE BILIRUBIN (Dip) 1+ (NEGATIVE); URINE BLOOD (Dip) 1+ (NEGATIVE); URINE COLOR YELLOW (YELLOW); URINE GLUCOSE (Dip) NEGATIVE (NEGATIVE); URINE KETONES (Dip) 15 (NEGATIVE); URINE LEUKOCYTE ESTERASE (Dip) TRACE (NEGATIVE); URINE NITRITE (Dip) NEGATIVE (NEGATIVE); URINE TOTAL PROTEIN (Dip) TRACE (NEGATIVE); URINE UROBILINOGEN (Dip) >8.0 E.U./dL (0.1-1.0)
[2016-10-28 11:25] LABS: ICTOTEST NEGATIVE (NEGATIVE)
[2016-10-28 11:28] LABS: BACTERIA,URINE FEW
--- NOTE | 2016-10-28 14:54 | RADRPT ---
PROCEDURE: XR Chest 1 View. CLINICAL INDICATION: Shortness of breath, pneumothorax follow up. TECHNIQUE: AP view of the chest were obtained. COMPARISON: November 09, 2016 at 08:23 a.m. FINDINGS: The heart size is within normal limits. Calcified atherosclerosis is noted in the aorta. Tracheosto my tube is stable and appears in grossly appropriate location. Left-sided central line is unchanged . Right-sided chest tube is stable. The previously seen subpulmonic pneumothorax is not as well se en as on prior exam. Small right pleural effusion is stable. Atelectasis is seen at the right lung base. Osseous structures are intact. IMPRESSION: Calcified atherosclerosis in the aorta. Stable right chest tube. Previously noted right subpulmonic pneumothorax is not as well visualized on the current exam. Stable small right pleural effusion and right basilar atelectasis. RPTAT: AA .Leif Hernandez MD, Date Time Electronically viewed and signed by .Leif Hernandez MD, on 10/28/2016 14:54 .P/
--- NOTE | 2016-10-28 15:04 | CONS ---
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 Continue HILDA inhibitor and beta beatriz as blood pressure permits. Consultation Date/Type/Reason Admit Date/Time Sep 15, 2016 at 16:54 Initial Consult Date 09/29/16 Type of Consultation: cv Referring Provider: JAN ZHANG 24 HR Interval Summary Free Text/Dictation Patient seen and examined, denies shortness of breath Exam/Review of Systems Vital Signs Vitals Vital Signs Date Time Temp Pulse Resp B/P Pulse Ox O2 Delivery O2 Flow Rate FiO2 10/28/16 14:09 98.7 53 21 100/62 100 10/28/16 13:48 30 10/27/16 18:00 Mechanical Ventilator Intake and Output 10/27/16 10/27/16 10/28/16 15:00 23:00 07:00 Intake Total 440 ml 120 ml 680 ml Output Total 350 ml 160 ml 310 ml Balance 90 ml -40 ml 370 ml Exam Follows commands, in restraints, no apparent distress Constitutional: alert Head: normocephalic Neck: other (tracheostomy) Respiratory: other (course breath sounds bilaterally, no wheezing) Cardiovascular: other (S1 and S2 heard), regular rate and rhythm Gastrointestinal: bowel sounds, non-tender, other (no guarding), soft Extremities: other (no edema) Results Result Diagram: 10/28/16 0940 10/28/16 0940 Results 24 hrs Laboratory Tests Test 10/28/16 09:40 Anion Gap 13 Basophils # 0.1 Basophils % 0.4 Blood Morphology Comment Blood Urea Nitrogen 9 Calcium Level 8.9 Carbon Dioxide Level 33 H Chloride Level 96 L Creatinine 0.55 L Eosinophils # 1.6 H Eosinophils % 11.2 H Glucose Level 108 Hematocrit 31.8 L Hemoglobin 10.6 L Lymphocytes # 1.2 Lymphocytes % 8.2 L Mean Corpuscular Hemoglobin 29.1 Mean Corpuscular Hemoglobin Concent 33.4 Mean Corpuscular Volume 87.2 Mean Platelet Volume 9.3 Monocytes # 1.2 H Monocytes % 8.2 Neutrophils # 10.2 H Neutrophils % 72.0 Nucleated Red Blood Cells # 0.0 Nucleated Red Blood Cells % 0.0 Platelet Count 480 H Potassium Level 4.1 Red Blood Count 3.64 L Red Cell Distribution Width 15.1 H Sodium Level 138 White Blood Count 14.2 H Medications Medications Current Medications Ondansetron HCl (Zofran Inj) 4 mg Q6H PRN IV NAUSEA AND/OR VOMITING; Start at 18:00 Morphine Sulfate (morphine) 2 mg Q4H PRN IV PAIN LEVEL 7-10 Last administered on 10/27/16 01:39; Admin Dose 2 MG; Start 09/15/16 at 18:00 Haloperidol (Haldol) 5 mg Q6H PRN IM AGITATION Last administered on 10/27/16 23 :17; Admin Dose 5 MG; Start 09/18/16 at 11:30 Metoclopramide HCl (Reglan) 10 mg Q12 IV Last administered on 10/28/16 09:40; Admin Dose 10 MG; Start 09/24/16 at 11:30 Acetaminophen (Tylenol Liquid) 650 mg Q4H PRN NGT PAIN AND OR ELEVATED TEMP Last administered on 10/14/16 19:56; Admin Dose 650 MG; Start 09/28/16 at 13:30 Lisinopril (Zestril) 2.5 mg DAILY GTB Last administered on 10/28/16 09:43; Admin Dose 2.5 MG; Start 10/02/16 at 09:00 Collagenase (Santyl) 1 applic DAILY TOP Last administered on 10/28/16 09:41; Admin Dose 1 APPLIC; Start 10/08/16 at 20:00 Nystatin (Nystatin Powder) 1 applic BID TOP Last administered on 10/28/16 09:41 ; Admin Dose 1 APPLIC; Start 10/08/16 at 21:00 Collagenase (Santyl) 1 applic PRN PRN TOP WOUND CARE Last administered on 07:54; Admin Dose 1 APPLIC; Start 10/08/16 at 17:30 Lorazepam (Ativan) 2 mg Q2H PRN IV AGITATION Last administered on 10/27/16 22: 34; Admin Dose 2 MG; Start 10/16/16 at 16:00 Carvedilol (Coreg) 3.125 mg BID GTB Last administered on 10/28/16 09:43; Admin Dose 3.125 MG; Start 10/16/16 at 21:00 Fentanyl (Duragesic 50 Mcg/Hr Patch) 1 patch Q72H TRANSDERM Last administered on 10/27/16 11:30; Admin Dose 1 PATCH; Start 10/21/16 at 11:30 Apixaban (Eliquis) 5 mg BID PO Last administered on 10/28/16 09:40; Admin Dose 5 MG; Start 10/23/16 at 10:00 Methadone HCl (Methadone) 20 mg Q6 PO Last administered on 10/28/16 12:31; Admin Dose 20 MG; Start 10/23/16 at 12:00 Lorazepam (Ativan) 2 mg Q2H PRN PEG AGITATION Last administered on 10/25/16 18: 43; Admin Dose 2 MG; Start 10/25/16 at 15:00 Docusate Sodium (Colace Liquid Cup) 200 mg BID PEG Last administered on 09:42; Admin Dose 200 MG; Start 10/25/16 at 21:00; Stop 11/15/16 at 08:00 Famotidine (Pepcid) 20 mg DAILY PO Last administered on 10/28/16 09:40; Admin Dose 20 MG; Start 10/26/16 at 09:00 Polyethylene Glycol (Miralax) 17 gm DAILY PRN GTB CONSTIPATION; Start 10/27/16 at 13:30 Nikolay Luna DO Oct 28, 2016 15:04
--- NOTE | 2016-10-28 16:21 | PN ---
Date/Time of Note Date/Time of Note DATE: 10/28/16 TIME: 16:00 Assessment/Plan VTE Prophylaxis VTE Prophylaxis Intervention: SCD's Lines/Catheters [facility]from [facility] Central Line Central line still needed: Yes Urinary Cath still in place: Yes (new one) Reason Cath still needed: urinary retention Assessment/Plan Chief Complaint/Hosp Course ASSESSMENT AND PLAN: - Acute respiratory failure patient, failed extubation. Continue ventilator support, weaning per pulmonology. Dr. Simons is following the patient from pulmonology consultation. - Right-sided pneumonia with complicated parapneumonic effusion, status post thoracentesis, s/p R chest tube placement. s/p treatment with abx. - Acute pulmonary emboli. Continue patient on Lovenox. 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 Dr. Luna is following from cardiology standpoint. - Encephalopathy, likely toxic metabolic, resolving. Continue to monitor. - Sepsis secondary to #2, resolved. - Status post tracheostomy by Dr. Marino on 10/20. - Status post G-tube placement by Dr. Galarza on 10/20 Continue Pepcid for peptic ulcer disease prophylaxis. Further recommendations based on clinical course. Plan of care discussed with Dr. Patel. Problems: Subjective 24 Hr Interval Summary Free Text/Dictation Patient's continues to be on ventilator support, no fever nausea vomiting, increased leukocytosis today. Per RN patient has an episode of disconnection from suctioning of the chest tube, continue to monitor chest x-ray. Exam/Review of Systems Vital Signs Vitals Vital Signs Date Time Temp Pulse Resp B/P Pulse Ox O2 Delivery O2 Flow Rate FiO2 10/28/16 15:19 62 16 98 30 10/28/16 14:09 98.7 100/62 10/27/16 18:00 Mechanical Ventilator Intake and Output 10/27/16 10/27/16 10/28/16 15:00 23:00 07:00 Intake Total 440 ml 120 ml 680 ml Output Total 350 ml 160 ml 310 ml Balance 90 ml -40 ml 370 ml Exam GENERAL: Well-developed, well-nourished male, tracheostomy to vent support, awake alert to name. LUNGS: Diminished with scattered rhonchi bilaterally. HEART: Normal S1, S2. No murmurs, gallops, clicks, rubs noted. ABDOMEN: Round, soft, nondistended, nontender. Bowel sounds present. EXTREMITIES: No edema, clubbing, cyanosis. Pulses equal bilaterally 2+. SKIN: There is no rash. NEUROLOGIC: Awake alert Results Result Diagram: 10/28/16 0940 10/28/16 0940 Results 24 hrs Laboratory Tests Test 10/28/16 09:40 Anion Gap 13 Basophils # 0.1 Basophils % 0.4 Blood Morphology Comment Blood Urea Nitrogen 9 Calcium Level 8.9 Carbon Dioxide Level 33 H Chloride Level 96 L Creatinine 0.55 L Eosinophils # 1.6 H Eosinophils % 11.2 H Glucose Level 108 Hematocrit 31.8 L Hemoglobin 10.6 L Lymphocytes # 1.2 Lymphocytes % 8.2 L Mean Corpuscular Hemoglobin 29.1 Mean Corpuscular Hemoglobin Concent 33.4 Mean Corpuscular Volume 87.2 Mean Platelet Volume 9.3 Monocytes # 1.2 H Monocytes % 8.2 Neutrophils # 10.2 H Neutrophils % 72.0 Nucleated Red Blood Cells # 0.0 Nucleated Red Blood Cells % 0.0 Platelet Count 480 H Potassium Level 4.1 Red Blood Count 3.64 L Red Cell Distribution Width 15.1 H Sodium Level 138 White Blood Count 14.2 H Medications Medications Current Medications Ondansetron HCl (Zofran Inj) 4 mg Q6H PRN IV NAUSEA AND/OR VOMITING; Start at 18:00 Morphine Sulfate (morphine) 2 mg Q4H PRN IV PAIN LEVEL 7-10 Last administered on 10/27/16 01:39; Admin Dose 2 MG; Start 09/15/16 at 18:00 Haloperidol (Haldol) 5 mg Q6H PRN IM AGITATION Last administered on 10/27/16 23 :17; Admin Dose 5 MG; Start 09/18/16 at 11:30 Metoclopramide HCl (Reglan) 10 mg Q12 IV Last administered on 10/28/16 09:40; Admin Dose 10 MG; Start 09/24/16 at 11:30 Acetaminophen (Tylenol Liquid) 650 mg Q4H PRN NGT PAIN AND OR ELEVATED TEMP Last administered on 10/14/16 19:56; Admin Dose 650 MG; Start 09/28/16 at 13:30 Lisinopril (Zestril) 2.5 mg DAILY GTB Last administered on 10/28/16 09:43; Admin Dose 2.5 MG; Start 10/02/16 at 09:00 Collagenase (Santyl) 1 applic DAILY TOP Last administered on 10/28/16 09:41; Admin Dose 1 APPLIC; Start 10/08/16 at 20:00 Nystatin (Nystatin Powder) 1 applic BID TOP Last administered on 10/28/16 09:41 ; Admin Dose 1 APPLIC; Start 10/08/16 at 21:00 Collagenase (Santyl) 1 applic PRN PRN TOP WOUND CARE Last administered on 07:54; Admin Dose 1 APPLIC; Start 10/08/16 at 17:30 Lorazepam (Ativan) 2 mg Q2H PRN IV AGITATION Last administered on 10/27/16 22: 34; Admin Dose 2 MG; Start 10/16/16 at 16:00 Carvedilol (Coreg) 3.125 mg BID GTB Last administered on 10/28/16 09:43; Admin Dose 3.125 MG; Start 10/16/16 at 21:00 Fentanyl (Duragesic 50 Mcg/Hr Patch) 1 patch Q72H TRANSDERM Last administered on 10/27/16 11:30; Admin Dose 1 PATCH; Start 10/21/16 at 11:30 Apixaban (Eliquis) 5 mg BID PO Last administered on 10/28/16 09:40; Admin Dose 5 MG; Start 10/23/16 at 10:00 Methadone HCl (Methadone) 20 mg Q6 PO Last administered on 10/28/16 12:31; Admin Dose 20 MG; Start 10/23/16 at 12:00 Lorazepam (Ativan) 2 mg Q2H PRN PEG AGITATION Last administered on 10/25/16 18: 43; Admin Dose 2 MG; Start 10/25/16 at 15:00 Docusate Sodium (Colace Liquid Cup) 200 mg BID PEG Last administered on 09:42; Admin Dose 200 MG; Start 10/25/16 at 21:00; Stop 11/15/16 at 08:00 Famotidine (Pepcid) 20 mg DAILY PO Last administered on 10/28/16 09:40; Admin Dose 20 MG; Start 10/26/16 at 09:00 Polyethylene Glycol (Miralax) 17 gm DAILY PRN GTB CONSTIPATION; Start 10/27/16 at 13:30 JAN ZHANG Oct 28, 2016 16:10
[2016-10-28] MEDS: FUROSEMIDE 20 MG TAB PO SCH (18:07)
[2016-10-28] MEDS: LORAZEPAM 2 MG INJ IV PRN (23:31)
[2016-10-29] VITALS (23 sets, daily range): BP systolic 101–136; BP diastolic 56–92; PULSE 50–84; RESP 10–18
[2016-10-29] MEDS: METHADONE 10 MG TAB PO SCH ×4 (01:18→18:00)
[2016-10-29] MEDS: FUROSEMIDE 20 MG TAB PO SCH ×2 (05:30→18:14)
[2016-10-29] MEDS: COLLAGENASE 30 GM TUBE TOP SCH (09:00)
--- NOTE | 2016-10-29 09:19 | RADRPT ---
PROCEDURE: XR Chest. CLINICAL INDICATION: Pneumonia TECHNIQUE: Single frontal chest x-ray. COMPARISON: 10/28/2016 FINDINGS: Tracheostomy tube, right-sided chest tube, and left subclavian central venous catheter remain in reinaldo ce. No acute infiltrate, pleural effusion or pneumothorax is identified. There is stable mild card iomegaly. Aortic atherosclerotic calcification is noted. The osseous structures are unremarkable. IMPRESSION: 1. Lines and tubes remain in place. No pneumothorax is identified. 2. There is stable mild cardiomegaly and aortic atherosclerosis. RPTAT: QQ .Raj Davis MD, MD Date Time Electronically viewed and signed by .Raj Davis MD, on 10/29/2016 09:19 .R/
[2016-10-29 09:53] LABS: POTASSIUM 3.9 mmol/L (3.5-5.1)
[2016-10-29 09:54] LABS: BASOPHIL # 0.1 10^3/ul (0.0-0.1); BASOPHILS % 0.6 % (0.0-2.0); EOSINOPHILS # 1.2 10^3/ul (0.0-0.5); EOSINOPHILS % 9.7 % (0.0-7.0); HEMATOCRIT 33.2 % (42.0-52.0); HEMOGLOBIN 10.6 g/dl (14.0-18.0); LYMPHOCYTES # 1.5 10^3/ul (0.8-2.9); LYMPHOCYTES % 11.8 % (15.0-51.0); MEAN CORPUSCULAR HEMOGLOBIN 28.3 pg (29.0-33.0); MEAN CORPUSCULAR HGB CONC 31.9 g/dl (32.0-37.0); MEAN CORPUSCULAR VOLUME 88.5 fl (82.0-101.0); MEAN PLATELET VOLUME 11.3 fl (7.4-10.4); MONOCYTE # 1.2 10^3/ul (0.3-0.9); MONOCYTES % 9.3 % (0.0-11.0); NEUTROPHIL # 8.7 10^3/ul (1.6-7.5); PLATELET COUNT 603 10^3/UL (140-440); RED BLOOD COUNT 3.75 10^6/ul (4.70-6.10); RED CELL DISTRIBUTION WIDTH 14.9 % (11.5-14.5); WHITE BLOOD COUNT 12.8 10^3/ul (4.8-10.8)
[2016-10-29 09:55] LABS: CREATININE 0.55 mg/dl (0.61-1.24)
[2016-10-29 09:56] LABS: CALCIUM 8.8 mg/dl (8.4-10.2)
--- NOTE | 2016-10-29 10:08 | PN ---
Date/Time of Note Date/Time of Note DATE: 10/29/16 TIME: 10:05 Assessment/Plan VTE Prophylaxis VTE Prophylaxis Intervention: LMWH, other Lines/Catheters IV Catheter Type (from Nrs): Saline Lock Urinary Cath still in place: Yes Reason Cath still needed: urinary retention Assessment/Plan Assessment/Plan 1. Acute respiratory failure patient, failed extubation. Continue ventilator support. - Plan for tracheostomy tomorrow per Dr Harris/staff -- Status post tracheostomy by Dr. Marino on 10/20. - per Dr. Aquino group is following the patient from pulmonology consultation. 2. Right-sided pneumonia with complicated parapneumonic effusion, status post thoracentesis. SP chest drain placement. antibiotics - per Dr. Osullivan in Infectious Disease 3. Acute pulmonary emboli. 4. 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 Overall negative I/Os, Appreciate cardiology recommendations. CXR reviewed 5. Encephalopathy, likely toxic metabolic. Continue to monitor. Currently on sedation. 6. Intermediate QuantiFERON gold test, AFB Negative, Only droplet precaution 7. Sepsis secondary to #2, resolved. 8. Dysphagia- plan for GT placement tomorrow per Dr Hernandez covering FOR Dr Dunn - Status post G-tube placement by Dr. Galarza on 10/20 9. Hypomagnesium as of 10/28/2016 -Mag level pending, fu labs Continue Pepcid for peptic ulcer disease prophylaxis. Elaquis for DVT prophylaxis Further recommendations based on clinical course. Plan of care discussed with Dr. Patel. Subjective 24 Hr Interval Summary Free Text/Dictation NAD, alert., follows simple commands, answers simple qs. dw staff Constitutional: improved, other (c/o generelized weakness), requiring O2 Eyes: no complaints ENT: no complaints Respiratory: no complaints Cardiovascular: no complaints Gastrointestinal: no complaints Musculoskeletal: no complaints Skin: no complaints Neurologic: no complaints Endocrine: no complaints Lymphatic: no complaints Psychological: no complaints Immunologic: no complaints Exam/Review of Systems Vital Signs Vitals Vital Signs Date Time Temp Pulse Resp B/P Pulse Ox O2 Delivery O2 Flow Rate FiO2 10/29/16 08:35 53 10/29/16 07:31 98.4 18 105/56 97 10/29/16 05:38 30 10/29/16 00:00 Mechanical Ventilator Intake and Output 10/28/16 10/28/16 10/29/16 15:00 23:00 07:00 Intake Total 480 ml 600 ml Output Total 550 ml Balance 480 ml 50 ml Exam Constitutional: alert, other Psych: no complaints Head: atraumatic Eyes: EOMI, PERRL, nl sclera ENMT: nl external ears & nose Neck: non-tender Respiratory: diminished breath sounds Cardiovascular: nl pulses Gastrointestinal: non-tender, soft Musculoskeletal: nl extremities to inspection Extremities: normal pulses Neurological: other Skin: puncture Lymph: nontender Results Result Diagram: 10/28/16 0940 10/29/16 0920 Results 24 hrs Laboratory Tests Test 10/29/16 09:20 Anion Gap 12 Basophils # 0.1 Basophils % 0.6 Blood Urea Nitrogen 8 Calcium Level 8.8 Carbon Dioxide Level 34 H Chloride Level 96 L Creatinine 0.55 L Eosinophils # 1.2 H Eosinophils % 9.7 H Glucose Level 95 Hematocrit 33.2 L Hemoglobin 10.6 L Lymphocytes # 1.5 Lymphocytes % 11.8 L Mean Corpuscular Hemoglobin 28.3 L Mean Corpuscular Hemoglobin Concent 31.9 L Mean Corpuscular Volume 88.5 Mean Platelet Volume 11.3 #H Monocytes # 1.2 H Monocytes % 9.3 Neutrophils # 8.7 H Neutrophils % 68.0 Nucleated Red Blood Cells # 0.0 Nucleated Red Blood Cells % 0.0 Platelet Count 603 #H Potassium Level 3.9 Red Blood Count 3.75 L Red Cell Distribution Width 14.9 H Sodium Level 138 White Blood Count 12.8 H Medications Medications Current Medications Ondansetron HCl (Zofran Inj) 4 mg Q6H PRN IV NAUSEA AND/OR VOMITING; Start at 18:00 Morphine Sulfate (morphine) 2 mg Q4H PRN IV PAIN LEVEL 7-10 Last administered on 10/27/16 01:39; Admin Dose 2 MG; Start 09/15/16 at 18:00 Haloperidol (Haldol) 5 mg Q6H PRN IM AGITATION Last administered on 10/27/16 23 :17; Admin Dose 5 MG; Start 09/18/16 at 11:30 Metoclopramide HCl (Reglan) 10 mg Q12 IV Last administered on 10/28/16 21:31; Admin Dose 10 MG; Start 09/24/16 at 11:30 Acetaminophen (Tylenol Liquid) 650 mg Q4H PRN NGT PAIN AND OR ELEVATED TEMP Last administered on 10/14/16 19:56; Admin Dose 650 MG; Start 09/28/16 at 13:30 Lisinopril (Zestril) 2.5 mg DAILY GTB Last administered on 10/28/16 09:43; Admin Dose 2.5 MG; Start 10/02/16 at 09:00 Collagenase (Santyl) 1 applic DAILY TOP Last administered on 10/28/16 09:41; Admin Dose 1 APPLIC; Start 10/08/16 at 20:00 Nystatin (Nystatin Powder) 1 applic BID TOP Last administered on 10/28/16 21:34 ; Admin Dose 1 APPLIC; Start 10/08/16 at 21:00 Collagenase (Santyl) 1 applic PRN PRN TOP WOUND CARE Last administered on 07:54; Admin Dose 1 APPLIC; Start 10/08/16 at 17:30 Lorazepam (Ativan) 2 mg Q2H PRN IV AGITATION Last administered on 10/28/16 23: 31; Admin Dose 2 MG; Start 10/16/16 at 16:00 Carvedilol (Coreg) 3.125 mg BID GTB Last administered on 10/28/16 21:33; Admin Dose 3.125 MG; Start 10/16/16 at 21:00 Fentanyl (Duragesic 50 Mcg/Hr Patch) 1 patch Q72H TRANSDERM Last administered on 10/27/16 11:30; Admin Dose 1 PATCH; Start 10/21/16 at 11:30 Apixaban (Eliquis) 5 mg BID PO Last administered on 10/28/16 21:34; Admin Dose 5 MG; Start 10/23/16 at 10:00 Methadone HCl (Methadone) 20 mg Q6 PO Last administered on 10/29/16 05:30; Admin Dose 20 MG; Start 10/23/16 at 12:00 Lorazepam (Ativan) 2 mg Q2H PRN PEG AGITATION Last administered on 10/25/16 18: 43; Admin Dose 2 MG; Start 10/25/16 at 15:00 Docusate Sodium (Colace Liquid Cup) 200 mg BID PEG Last administered on 21:33; Admin Dose 200 MG; Start 10/25/16 at 21:00; Stop 11/15/16 at 08:00 Famotidine (Pepcid) 20 mg DAILY PO Last administered on 10/28/16t 09:40; Admin Dose 20 MG; Start 10/26/16 at 09:00 Polyethylene Glycol (Miralax) 17 gm DAILY PRN GTB CONSTIPATION; Start 10/27/16 at 13:30 CECY BELTRAN Oct 29, 2016 10:08
--- NOTE | 2016-10-29 10:26 | CONS ---
Date/Time of Note Date/Time of Note DATE: 10/29/16 TIME: 10:21 Assessment/Plan Assessment/Plan Additional Assessment/Plan Assessment recommendations; 1. Patient admitted with severe right-sided pneumonia requiring a VATS procedure and chest tube placement. 2. Failure to be weaned off from mechanical ventilation due to severe drug withdrawal ultimately requiring a tracheostomy and G-tube. 3. Stable hypertension. 4. Stable cardiomyopathy. 5. Continuously improving mental status, patient not requiring any further as needed sedation. Continue current supportive care. Data settings have been adjusted patient has been switched over to SIMV with a rate of 10, pressure support of 10. Next Patient having awaiting transfer to a rehab facility Consultation Date/Type/Reason Admit Date/Time Sep 15, 2016 at 16:54 Initial Consult Date 09/29/16 Type of Consultation: Pulmonary Referring Provider: JAN ZHANG 24 HR Interval Summary Free Text/Dictation Patient's condition is continually improving. Patient is awake, alert currently in no distress. He denies any shortness of breath. Any chest pain. Any coughing. Patient not requiring any additional sedation over the last 24 hours. General examination; middle-aged man, awake alert currently in no distress. On mechanical ventilation via tracheostomy. Exam/Review of Systems Vital Signs Vitals Vital Signs Date Time Temp Pulse Resp B/P Pulse Ox O2 Delivery O2 Flow Rate FiO2 10/29/16 08:35 53 10/29/16 07:31 98.4 18 105/56 97 10/29/16 05:38 30 10/29/16 00:00 Mechanical Ventilator Intake and Output 10/28/16 10/28/16 10/29/16 15:00 23:00 07:00 Intake Total 480 ml 600 ml Output Total 550 ml Balance 480 ml 50 ml Exam Current ventilator settings; SIMV of 16, pressure support 10, tidal volume 500, PEEP of 5, 30% FiO2. HEENT examination; supple neck, no JVD. No lymphadenopathy. Tracheostomy in place with clean insertion site. Pharynx is clear with good dentition. Pupils are midsize reactive to light. Extraocular movements are intact. Chest examination; clear to auscultation bilaterally. S1-S2 audible no murmurs regular rhythm. There is a right-sided chest tube in place. Abdomen examination; soft, nondistended. Nontender. No organomegaly. G-tube in place. Extremity examination; no peripheral edema. PIER RUNNER examination; no focal deficit. Results Result Diagram: 10/29/1620 10/29/16 0920 Results 24 hrs Laboratory Tests Test 10/29/16 09:20 Anion Gap 12 Basophils # 0.1 Basophils % 0.6 Blood Urea Nitrogen 8 Calcium Level 8.8 Carbon Dioxide Level 34 H Chloride Level 96 L Creatinine 0.55 L Eosinophils # 1.2 H Eosinophils % 9.7 H Glucose Level 95 Hematocrit 33.2 L Hemoglobin 10.6 L Lymphocytes # 1.5 Lymphocytes % 11.8 L Mean Corpuscular Hemoglobin 28.3 L Mean Corpuscular Hemoglobin Concent 31.9 L Mean Corpuscular Volume 88.5 Mean Platelet Volume 11.3 #H Monocytes # 1.2 H Monocytes % 9.3 Neutrophils # 8.7 H Neutrophils % 68.0 Nucleated Red Blood Cells # 0.0 Nucleated Red Blood Cells % 0.0 Platelet Count 603 #H Potassium Level 3.9 Red Blood Count 3.75 L Red Cell Distribution Width 14.9 H Sodium Level 138 White Blood Count 12.8 H Medications Medications Current Medications Ondansetron HCl (Zofran Inj) 4 mg Q6H PRN IV NAUSEA AND/OR VOMITING; Start at 18:00 Morphine Sulfate (morphine) 2 mg Q4H PRN IV PAIN LEVEL 7-10 Last administered on 10/27/16 01:39; Admin Dose 2 MG; Start 09/15/16 at 18:00 Haloperidol (Haldol) 5 mg Q6H PRN IM AGITATION Last administered on 10/27/16 23 :17; Admin Dose 5 MG; Start 09/18/16 at 11:30 Metoclopramide HCl (Reglan) 10 mg Q12 IV Last administered on 10/28/16 21:31; Admin Dose 10 MG; Start 09/24/16 at 11:30 Acetaminophen (Tylenol Liquid) 650 mg Q4H PRN NGT PAIN AND OR ELEVATED TEMP Last administered on 10/14/16 19:56; Admin Dose 650 MG; Start 09/28/16 at 13:30 Lisinopril (Zestril) 2.5 mg DAILY GTB Last administered on 10/28/16 09:43; Admin Dose 2.5 MG; Start 10/02/16 at 09:00 Collagenase (Santyl) 1 applic DAILY TOP Last administered on 10/28/16 09:41; Admin Dose 1 APPLIC; Start 10/08/16 at 20:00 Nystatin (Nystatin Powder) 1 applic BID TOP Last administered on 10/28/16 21:34 ; Admin Dose 1 APPLIC; Start 10/08/16 at 21:00 Collagenase (Santyl) 1 applic PRN PRN TOP WOUND CARE Last administered on 07:54; Admin Dose 1 APPLIC; Start 10/08/16 at 17:30 Lorazepam (Ativan) 2 mg Q2H PRN IV AGITATION Last administered on 10/28/16 23: 31; Admin Dose 2 MG; Start 10/16/16 at 16:00 Carvedilol (Coreg) 3.125 mg BID GTB Last administered on 10/28/16 21:33; Admin Dose 3.125 MG; Start 10/16/16 at 21:00 Fentanyl (Duragesic 50 Mcg/Hr Patch) 1 patch Q72H TRANSDERM Last administered on 10/27/16 11:30; Admin Dose 1 PATCH; Start 10/21/16 at 11:30 Apixaban (Eliquis) 5 mg BID PO Last administered on 10/28/16 21:34; Admin Dose 5 MG; Start 10/23/16 at 10:00 Methadone HCl (Methadone) 20 mg Q6 PO Last administered on 10/29/16 05:30; Admin Dose 20 MG; Start 10/23/16 at 12:00 Lorazepam (Ativan) 2 mg Q2H PRN PEG AGITATION Last administered on 10/25/16 18: 43; Admin Dose 2 MG; Start 10/25/16 at 15:00 Docusate Sodium (Colace Liquid Cup) 200 mg BID PEG Last administered on 21:33; Admin Dose 200 MG; Start 10/25/16 at 21:00; Stop 11/15/16 at 08:00 Famotidine (Pepcid) 20 mg DAILY PO Last administered on 10/28/16 09:40; Admin Dose 20 MG; Start 10/26/16 at 09:00 Polyethylene Glycol (Miralax) 17 gm DAILY PRN GTB CONSTIPATION; Start 10/27/16 at 13:30 ILYA HILL Oct 29, 2016 10:26
[2016-10-29] MEDS: FAMOTIDINE 20 MG TAB PO SCH (10:36)
[2016-10-29] MEDS: APIXABAN 5 MG TABLET PO SCH ×2 (10:36→21:16)
[2016-10-29] MEDS: LISINOPRIL 5 MG TAB GTB SCH (10:36)
[2016-10-29] MEDS: METOCLOPRAMIDE 10 MG INJ IV SCH ×2 (10:36→21:16)
[2016-10-29] MEDS: DOCUSATE SODIUM 10 MG/ML (10ML CUP) PEG SCH ×2 (10:36→21:15)
[2016-10-29] MEDS: NYSTATIN 30 GM POWDER BTL TOP SCH ×2 (10:37→21:17)
--- NOTE | 2016-10-29 10:57 | CONS ---
Date/Time of Note Date/Time of Note DATE: 10/29/16 TIME: 10:56 Assessment/Plan Assessment/Plan Chief Complaint/Hosp Course assessment/impression - leukocytosis - skin ulcer under the trach, wound culture is growing Staph species - h/o sepsis, septic shock - h/o post-op fever - h/o pneumonia with parapneumonic effusion. Could be started as CAP, other considerations include aspiration PNA. - h/o recurrent right pleural effusion. s/p diagnostic thoracentesis on 09/22/16. It showed glu=74 pro <2, [id number]. No malignancy on cytology. s/p repeat thoracentesis 10/01/16, no malignancy on cytology. R chest tube placed 10/07/16. 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) - h/o transaminitis, possibly shock liver, improved - h/o drug rash likely d/t pip/tazo, resolving - antimicrobial history: ashlyn (09/19/16-10/04/16, 10/08/16-10/10/16), azithromycin (10/02/16-10/06/16), pip/tazo (09/29/16-10/08/16), Tamiflu (10/02/16-10/08/16) - negative results: rapid influenza screen, PPD, legionella antigen, mycoplasma pneumoniae, chlamydia pneumoniae serology, and respiratory viral panel; AFB smear (09/29, 09/30, 10/01, 10/08, 10/13) recommendations: - pending results: swab of the skin under the trach bumper (growing Staph species so far), urine and blood cultures - start vancomycin for the skin ulcer beneath the trach - I recommend d/c central line management d/w Pt, his mother and step father Problems: Consultation Date/Type/Reason Admit Date/Time Sep 15, 2016 at 16:54 Initial Consult Date 09/29/16 Type of Consultation: ID Referring Provider: JAN ZHANG 24 HR Interval Summary Subjective hx not possible: pt non-verbal Detailed Summary Eyes: no complaints Respiratory: shortness of breath Cardiovascular: no complaints Gastrointestinal: no complaints Genitourinary: other (FC) Skin: no complaints Exam/Review of Systems Vital Signs Vitals Vital Signs Date Time Temp Pulse Resp B/P Pulse Ox O2 Delivery O2 Flow Rate FiO2 10/29/16 08:35 53 10/29/16 07:31 98.4 18 105/56 97 10/29/16 05:38 30 10/29/16 00:00 Mechanical Ventilator Intake and Output 10/28/16 10/28/16 10/29/16 15:00 23:00 07:00 Intake Total 480 ml 600 ml Output Total 550 ml Balance 480 ml 50 ml Exam Constitutional: frail, non-verbal Psych: confusion Head: normocephalic Eyes: nl conjunctiva, nl lids ENMT: nl external ears & nose Neck: other (trach) Respiratory: crackles/rales Cardiovascular: nl pulses, regular rate and rhythm Gastrointestinal: non-tender, other (GT), soft Musculoskeletal: other (atrophy) Extremities: No edema Neurological: lethargic Skin: rash or lesions (3cm x 2 cm ulcer beneath trach bumper) Results Result Diagram: 10/29/1691910/29/1620 Results 24 hrs Laboratory Tests Test 10/29/16 09:20 Anion Gap 12 Basophils # 0.1 Basophils % 0.6 Blood Urea Nitrogen 8 Calcium Level 8.8 Carbon Dioxide Level 34 H Chloride Level 96 L Creatinine 0.55 L Eosinophils # 1.2 H Eosinophils % 9.7 H Glucose Level 95 Hematocrit 33.2 L Hemoglobin 10.6 L Lymphocytes # 1.5 Lymphocytes % 11.8 L Magnesium Level 1.6 L Mean Corpuscular Hemoglobin 28.3 L Mean Corpuscular Hemoglobin Concent 31.9 L Mean Corpuscular Volume 88.5 Mean Platelet Volume 11.3 #H Monocytes # 1.2 H Monocytes % 9.3 Neutrophils # 8.7 H Neutrophils % 68.0 Nucleated Red Blood Cells # 0.0 Nucleated Red Blood Cells % 0.0 Platelet Count 603 #H Potassium Level 3.9 Red Blood Count 3.75 L Red Cell Distribution Width 14.9 H Sodium Level 138 White Blood Count 12.8 H Medications Medications Current Medications Ondansetron HCl (Zofran Inj) 4 mg Q6H PRN IV NAUSEA AND/OR VOMITING; Start at 18:00 Morphine Sulfate (morphine) 2 mg Q4H PRN IV PAIN LEVEL 7-10 Last administered on 10/27/16 01:39; Admin Dose 2 MG; Start 09/15/16 at 18:00 Haloperidol (Haldol) 5 mg Q6H PRN IM AGITATION Last administered on 10/27/16 23 :17; Admin Dose 5 MG; Start 09/18/16 at 11:30 Metoclopramide HCl (Reglan) 10 mg Q12 IV Last administered on 10/29/16 10:36; Admin Dose 10 MG; Start 09/24/16 at 11:30 Acetaminophen (Tylenol Liquid) 650 mg Q4H PRN NGT PAIN AND OR ELEVATED TEMP Last administered on 10/14/16 19:56; Admin Dose 650 MG; Start 09/28/16 at 13:30 Lisinopril (Zestril) 2.5 mg DAILY GTB Last administered on 10/29/16 10:36; Admin Dose 2.5 MG; Start 10/02/16 at 09:00 Collagenase (Santyl) 1 applic DAILY TOP Last administered on 10/29/16 09:00; Admin Dose 1 APPLIC; Start 10/08/16 at 20:00 Nystatin (Nystatin Powder) 1 applic BID TOP Last administered on 10/29/16 10:37 ; Admin Dose 1 APPLIC; Start 10/08/16 at 21:00 Collagenase (Santyl) 1 applic PRN PRN TOP WOUND CARE Last administered on 07:54; Admin Dose 1 APPLIC; Start 10/08/16 at 17:30 Lorazepam (Ativan) 2 mg Q2H PRN IV AGITATION Last administered on 10/28/16 23: 31; Admin Dose 2 MG; Start 10/16/16 at 16:00 Carvedilol (Coreg) 3.125 mg BID GTB Last administered on 10/28/16 21:33; Admin Dose 3.125 MG; Start 10/16/16 at 21:00 Fentanyl (Duragesic 50 Mcg/Hr Patch) 1 patch Q72H TRANSDERM Last administered on 10/27/16 11:30; Admin Dose 1 PATCH; Start 10/21/16 at 11:30 Apixaban (Eliquis) 5 mg BID PO Last administered on 10/29/16 10:36; Admin Dose 5 MG; Start 10/23/16 at 10:00 Methadone HCl (Methadone) 20 mg Q6 PO Last administered on 10/29/16 05:30; Admin Dose 20 MG; Start 10/23/16 at 12:00 Lorazepam (Ativan) 2 mg Q2H PRN PEG AGITATION Last administered on 10/25/16 18: 43; Admin Dose 2 MG; Start 10/25/16 at 15:00 Docusate Sodium (Colace Liquid Cup) 200 mg BID PEG Last administered on 10:36; Admin Dose 200 MG; Start 10/25/16 at 21:00; Stop 11/15/16 at 08:00 Famotidine (Pepcid) 20 mg DAILY PO Last administered on 10/29/16 10:36; Admin Dose 20 MG; Start 10/26/16 at 09:00 Polyethylene Glycol (Miralax) 17 gm DAILY PRN GTB CONSTIPATION; Start 10/27/16 at 13:30 MIGUEL ERNST M.D. Oct 29, 2016 10:57
[2016-10-29] MEDS: LORAZEPAM 2 MG INJ IV PRN ×2 (13:24→23:50)
--- NOTE | 2016-10-29 14:13 | CONS ---
Date/Time of Note Date/Time of Note DATE: 10/29/16 TIME: 14:11 Assessment/Plan Assessment/Plan Additional Assessment/Plan Respiratory failure Pulmonary emboli Acute decompensated systolic congestive heart failure Severe biventricular cardiomyopathy with left ventricular ejection fraction 20% Pleural effusion -Would continue diuretics as blood pressure and renal function permits. Continue beta-beatriz and HILDA inhibitor as blood pressure permits. Magnesium and potassium supplementation ordered. Consultation Date/Type/Reason Admit Date/Time Sep 15, 2016 at 16:54 Initial Consult Date 09/29/16 Type of Consultation: cv Referring Provider: JAN ZHANG 24 HR Interval Summary Free Text/Dictation Patient denies shortness of breath or chest pain. Off of restraints Exam/Review of Systems Vital Signs Vitals Vital Signs Date Time Temp Pulse Resp B/P Pulse Ox O2 Delivery O2 Flow Rate FiO2 10/29/16 12:31 54 10/29/16 11:32 98.7 18 101/59 95 10/29/16 05:38 30 10/29/16 00:00 Mechanical Ventilator Intake and Output 10/28/16 10/28/16 10/29/16 15:00 23:00 07:00 Intake Total 480 ml 600 ml Output Total 550 ml Balance 480 ml 50 ml Exam No apparent distress, following commands Constitutional: alert, oriented Head: normocephalic Neck: other (Trach) Respiratory: other (Coarse breath sounds bilaterally, no wheezing) Cardiovascular: other (S1-S2 heard), regular rate and rhythm Gastrointestinal: bowel sounds, non-tender, other (No guarding), soft Extremities: other (No edema) Results Result Diagram: 10/29/1691910/29/16 0920 Results 24 hrs Laboratory Tests Test 10/29/16 09:20 Anion Gap 12 Basophils # 0.1 Basophils % 0.6 Blood Urea Nitrogen 8 Calcium Level 8.8 Carbon Dioxide Level 34 H Chloride Level 96 L Creatinine 0.55 L Eosinophils # 1.2 H Eosinophils % 9.7 H Glucose Level 95 Hematocrit 33.2 L Hemoglobin 10.6 L Lymphocytes # 1.5 Lymphocytes % 11.8 L Magnesium Level 1.6 L Mean Corpuscular Hemoglobin 28.3 L Mean Corpuscular Hemoglobin Concent 31.9 L Mean Corpuscular Volume 88.5 Mean Platelet Volume 11.3 #H Monocytes # 1.2 H Monocytes % 9.3 Neutrophils # 8.7 H Neutrophils % 68.0 Nucleated Red Blood Cells # 0.0 Nucleated Red Blood Cells % 0.0 Platelet Count 603 #H Potassium Level 3.9 Red Blood Count 3.75 L Red Cell Distribution Width 14.9 H Sodium Level 138 White Blood Count 12.8 H Medications Medications Current Medications Ondansetron HCl (Zofran Inj) 4 mg Q6H PRN IV NAUSEA AND/OR VOMITING; Start at 18:00 Morphine Sulfate (morphine) 2 mg Q4H PRN IV PAIN LEVEL 7-10 Last administered on 10/27/16 01:39; Admin Dose 2 MG; Start 09/15/16 at 18:00 Haloperidol (Haldol) 5 mg Q6H PRN IM AGITATION Last administered on 10/27/16 23 :17; Admin Dose 5 MG; Start 09/18/16 at 11:30 Metoclopramide HCl (Reglan) 10 mg Q12 IV Last administered on 10/29/16 10:36; Admin Dose 10 MG; Start 09/24/16 at 11:30 Acetaminophen (Tylenol Liquid) 650 mg Q4H PRN NGT PAIN AND OR ELEVATED TEMP Last administered on 10/14/16 19:56; Admin Dose 650 MG; Start 09/28/16 at 13:30 Lisinopril (Zestril) 2.5 mg DAILY GTB Last administered on 10/29/16 10:36; Admin Dose 2.5 MG; Start 10/02/16 at 09:00 Collagenase (Santyl) 1 applic DAILY TOP Last administered on 10/29/16 09:00; Admin Dose 1 APPLIC; Start 10/08/16 at 20:00 Nystatin (Nystatin Powder) 1 applic BID TOP Last administered on 10/29/16 10:37 ; Admin Dose 1 APPLIC; Start 10/08/16 at 21:00 Collagenase (Santyl) 1 applic PRN PRN TOP WOUND CARE Last administered on 07:54; Admin Dose 1 APPLIC; Start 10/08/16 at 17:30 Lorazepam (Ativan) 2 mg Q2H PRN IV AGITATION Last administered on 10/29/16 13: 24; Admin Dose 2 MG; Start 10/16/16 at 16:00 Carvedilol (Coreg) 3.125 mg BID GTB Last administered on 10/28/16 21:33; Admin Dose 3.125 MG; Start 10/16/16 at 21:00 Fentanyl (Duragesic 50 Mcg/Hr Patch) 1 patch Q72H TRANSDERM Last administered on 10/27/16 11:30; Admin Dose 1 PATCH; Start 10/21/16 at 11:30 Apixaban (Eliquis) 5 mg BID PO Last administered on 10/29/16 10:36; Admin Dose 5 MG; Start 10/23/16 at 10:00 Methadone HCl (Methadone) 20 mg Q6 PO Last administered on 10/29/16 05:30; Admin Dose 20 MG; Start 10/23/16 at 12:00 Lorazepam (Ativan) 2 mg Q2H PRN PEG AGITATION Last administered on 10/25/16 18: 43; Admin Dose 2 MG; Start 10/25/16 at 15:00 Docusate Sodium (Colace Liquid Cup) 200 mg BID PEG Last administered on 10:36; Admin Dose 200 MG; Start 10/25/16 at 21:00; Stop 11/15/16 at 08:00 Famotidine (Pepcid) 20 mg DAILY PO Last administered on 10/29/16 10:36; Admin Dose 20 MG; Start 10/26/16 at 09:00 Polyethylene Glycol (Miralax) 17 gm DAILY PRN GTB CONSTIPATION; Start 10/27/16 at 13:30 Nikolay Luna DO Oct 29, 2016 14:13
[2016-10-29] MEDS ORDERED: MAGNESIUM SULFATE 2 GM/50 ML 50 ML IVPB ONE (14:30)
[2016-10-29] MEDS ORDERED: POTASSIUM CHLORIDE 20 MEQ POWDER FOR ORAL SOLN NGT ONE (14:30)
[2016-10-29] MEDS ORDERED: VANCOMYCIN IV PER PHARMACY XX SCH (19:30)
[2016-10-29] MEDS: VANCOMYCIN 1.5 GM in SOD CHLORIDE 0.9% 250 ML IVPB SCH (21:09)
--- NOTE | 2016-10-29 21:19 | PN ---
Date/Time of Note Date/Time of Note DATE: 10/29/16 TIME: 21:18 Assessment/Plan Lines/Catheters IV Catheter Type (from Nrsg): Saline Lock Tang in Place (from Nrsg): Yes Assessment/Plan Chief Complaint/Hosp Course IMPRESSION 1. Pulmonary embolism. 2. Pneumonia. 3 Pleural effusion RECOMMENDATIONS: SP CT placement SP Trach will continue vent support trach care Problems: Subjective 24 Hr Interval Summary Constitutional: improved Pain Control: mild Exam/Review of Systems Vital Signs Vitals Vital Signs Date Time Temp Pulse Resp B/P Pulse Ox O2 Delivery O2 Flow Rate FiO2 10/29/16 21:14 50 10/29/16 20:00 98.5 15 111/69 100 10/29/16 19:45 30 10/29/16 00:00 Mechanical Ventilator Intake and Output 10/28/16 10/28/16 10/29/16 15:00 23:00 07:00 Intake Total 480 ml 600 ml Output Total 550 ml Balance 480 ml 50 ml Exam ENMT: mucosa pink and moist, nl external ears & nose, nl lips & teeth, nl nasal mucosa & septum Neck: non-tender, supple Respiratory: clear to auscultation, normal air movement Cardiovascular: nl pulses, regular rate and rhythm Results Result Diagram: 10/29/1691910/29/16919 YOUNG HAY MD Oct 29, 2016 21:19
[2016-10-30] VITALS (30 sets, daily range): BP systolic 81–126; BP diastolic 42–82; PULSE 57–154; RESP 12–24
[2016-10-30] MEDS: METHADONE 10 MG TAB PO SCH ×2 (00:31→05:17)
[2016-10-30] MEDS: HALOPERIDOL 5 MG INJ IM PRN (02:05)
[2016-10-30] MEDS: LORAZEPAM 2 MG INJ IV PRN (03:14)
[2016-10-30] MEDS: morphine 2 MG INJ IV PRN (03:33)
[2016-10-30] MEDS: ACETAMINOPHEN 650MG/20.3ML CUP NGT PRN ×2 (03:59→21:59)
[2016-10-30 05:01] LABS: ADD SCAN DIFF NO
[2016-10-30 05:18] LABS: POTASSIUM 4.2 mmol/L (3.5-5.1)
[2016-10-30] MEDS: FUROSEMIDE 20 MG TAB PO SCH (05:18)
[2016-10-30 05:21] LABS: ABNORMAL IP MESSAGE 1; BASOPHILS % 0.2 % (0.0-2.0); CALCIUM 9.4 mg/dl (8.4-10.2); CREATININE 0.63 mg/dl (0.61-1.24); EOSINOPHILS # 1.1 10^3/ul (0.0-0.5); EOSINOPHILS % 6.1 % (0.0-7.0); HEMATOCRIT 38.6 % (42.0-52.0); HEMOGLOBIN 12.2 g/dl (14.0-18.0); LYMPHOCYTES # 0.3 10^3/ul (0.8-2.9); LYMPHOCYTES % 1.9 % (15.0-51.0); MEAN CORPUSCULAR HEMOGLOBIN 27.9 pg (29.0-33.0); MEAN CORPUSCULAR HGB CONC 31.6 g/dl (32.0-37.0); MEAN CORPUSCULAR VOLUME 88.1 fl (82.0-101.0); MEAN PLATELET VOLUME 11.1 fl (7.4-10.4); MONOCYTE # 0.4 10^3/ul (0.3-0.9); MONOCYTES % 2.3 % (0.0-11.0); NEUTROPHIL # 15.9 10^3/ul (1.6-7.5); NEUTROPHILS % 88.9 % (39.0-77.0); PLATELET COUNT 737 10^3/UL (140-415); RED BLOOD COUNT 4.38 10^6/ul (4.70-6.10); RED CELL DISTRIBUTION WIDTH 14.6 % (11.5-14.5); WHITE BLOOD COUNT 17.9 10^3/ul (4.8-10.8)
--- NOTE | 2016-10-30 07:59 | PN ---
Date/Time of Note Date/Time of Note DATE: 10/30/16 TIME: 07:59 Assessment/Plan Lines/Catheters IV Catheter Type (from Nrsg): Saline Lock Tang in Place (from Nrsg): Yes Assessment/Plan Chief Complaint/Hosp Course IMPRESSION 1. Pulmonary embolism. 2. Pneumonia. 3 Pleural effusion RECOMMENDATIONS: SP CT placement SP Trach will continue vent support trach care Problems: Subjective 24 Hr Interval Summary Constitutional: improved Pain Control: mild Exam/Review of Systems Vital Signs Vitals Vital Signs Date Time Temp Pulse Resp B/P Pulse Ox O2 Delivery O2 Flow Rate FiO2 10/30/16 07:56 98.3 75 18 96/52 99 10/30/16 06:00 Mechanical Ventilator 10/30/16 05:52 30 Intake and Output 10/29/16 10/29/16 10/30/16 15:00 23:00 07:00 Intake Total 680 ml 990 ml Output Total 1000 ml 450 ml 1100 ml Balance -320 ml -450 ml -110 ml Exam Neck: non-tender, supple Respiratory: clear to auscultation, normal air movement Cardiovascular: nl pulses, regular rate and rhythm Gastrointestinal: nl liver, spleen, non-tender, soft Results Result Diagram: 10/30/16 0425 10/30/16 0425 YOUNG HAY MD Oct 30, 2016 07:59
[2016-10-30] MEDS: VANCOMYCIN 1.5 GM in SOD CHLORIDE 0.9% 250 ML IVPB SCH ×2 (08:55→20:23)
[2016-10-30] MEDS: LISINOPRIL 5 MG TAB GTB SCH (09:00)
[2016-10-30] MEDS: APIXABAN 5 MG TABLET PO SCH ×2 (09:43→21:59)
[2016-10-30] MEDS: FAMOTIDINE 20 MG TAB PO SCH (09:43)
[2016-10-30] MEDS: METOCLOPRAMIDE 10 MG INJ IV SCH ×2 (09:43→21:59)
[2016-10-30] MEDS ORDERED: SOD CHLORIDE 0.9% 250 ML IV ONE (10:00)
[2016-10-30] MEDS: DOCUSATE SODIUM 10 MG/ML (10ML CUP) PEG SCH ×2 (10:06→21:58)
[2016-10-30] MEDS: NYSTATIN 30 GM POWDER BTL TOP SCH ×2 (10:06→21:59)
[2016-10-30] MEDS: COLLAGENASE 30 GM TUBE TOP SCH (10:07)
--- NOTE | 2016-10-30 11:22 | PN ---
Date/Time of Note Date/Time of Note DATE: 10/30/16 TIME: 11:21 Assessment/Plan VTE Prophylaxis VTE Prophylaxis Intervention: SCD's Lines/Catheters [facility] Saline Lock Central line still needed: Yes Urinary Cath still in place: Yes Reason Cath still needed: urinary retention Assessment/Plan Chief Complaint/Hosp Course ASSESSMENT AND PLAN: - Acute respiratory failure patient, failed extubation. Continue ventilator support, weaning per pulmonology. Dr. Simons is following the patient from pulmonology consultation. - Right-sided pneumonia with complicated parapneumonic effusion, status post thoracentesis, s/p R chest tube placement. s/p treatment with abx. - Acute pulmonary emboli. Continue patient on Lovenox. 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 Dr. Luna is following from cardiology standpoint. - Encephalopathy, likely toxic metabolic, resolving. Continue to monitor. - Sepsis secondary to #2, resolved. - Status post tracheostomy by Dr. Marino on 10/20. - Status post G-tube placement by Dr. Galarza on 10/20 Continue Pepcid for peptic ulcer disease prophylaxis. Further recommendations based on clinical course. Plan of care discussed with Dr. Patel. Problems: Subjective 24 Hr Interval Summary Free Text/Dictation Patient spiked fever overnight, blood cultures collected, in the morning patient is hypotensive, did not respond to fluid boluses, will transfer to ICU. Exam/Review of Systems Vital Signs Vitals Vital Signs Date Time Temp Pulse Resp B/P Pulse Ox O2 Delivery O2 Flow Rate FiO2 10/30/16 10:14 98.6 72 18 81/42 98 10/30/16 09:25 30 10/30/16 06:00 Mechanical Ventilator Intake and Output 10/29/16 10/29/16 10/30/16 15:00 23:00 07:00 Intake Total 680 ml 990 ml Output Total 1000 ml 450 ml 1100 ml Balance -320 ml -450 ml -110 ml Exam GENERAL: Well-developed, well-nourished male, tracheostomy to vent support, lethargic LUNGS: Diminished with scattered rhonchi bilaterally. HEART: Normal S1, S2. No murmurs, gallops, clicks, rubs noted. ABDOMEN: Round, soft, nondistended, nontender. Bowel sounds present. EXTREMITIES: No edema, clubbing, cyanosis. Pulses equal bilaterally 2+. SKIN: There is no rash. NEUROLOGIC: Lethargic but easily arousable Results Result Diagram: 10/30/1642410/30/16424 Results 24 hrs Laboratory Tests Test 10/30/16 04:25 Anion Gap 16 Basophils # 0.0 Basophils % 0.2 Blood Urea Nitrogen 10 Calcium Level 9.4 Carbon Dioxide Level 31 Chloride Level 97 Creatinine 0.63 Eosinophils # 1.1 H Eosinophils % 6.1 Glucose Level 120 Hematocrit 38.6 L Hemoglobin 12.2 L Lymphocytes # 0.3 L Lymphocytes % 1.9 L Mean Corpuscular Hemoglobin 27.9 L Mean Corpuscular Hemoglobin Concent 31.6 L Mean Corpuscular Volume 88.1 Mean Platelet Volume 11.1 H Monocytes # 0.4 Monocytes % 2.3 Neutrophils # 15.9 H Neutrophils % 88.9 H Nucleated Red Blood Cells # 0.0 Nucleated Red Blood Cells % 0.0 Platelet Count 737 H Potassium Level 4.2 Red Blood Count 4.38 L Red Cell Distribution Width 14.6 H Sodium Level 140 White Blood Count 17.9 #H Medications Medications Current Medications Ondansetron HCl (Zofran Inj) 4 mg Q6H PRN IV NAUSEA AND/OR VOMITING; Start at 18:00 Morphine Sulfate (morphine) 2 mg Q4H PRN IV PAIN LEVEL 7-10 Last administered on 10/30/16 03:33; Admin Dose 2 MG; Start 09/15/16 at 18:00 Haloperidol (Haldol) 5 mg Q6H PRN IM AGITATION Last administered on 10/30/16 02:05; Admin Dose 5 MG; Start 09/18/16 at 11:30 Metoclopramide HCl (Reglan) 10 mg Q12 IV Last administered on 10/30/16 09:43; Admin Dose 10 MG; Start 09/24/16 at 11:30 Acetaminophen (Tylenol Liquid) 650 mg Q4H PRN NGT PAIN AND OR ELEVATED TEMP Last administered on 10/30/16 03:59; Admin Dose 650 MG; Start 09/28/16 at 13:30 Lisinopril (Zestril) 2.5 mg DAILY GTB Last administered on 10/29/16 10:36; Admin Dose 2.5 MG; Start 10/02/16 at 09:00 Collagenase (Santyl) 1 applic DAILY TOP Last administered on 10/30/16 10:07; Admin Dose 1 APPLIC; Start 10/08/16 at 20:00 Nystatin (Nystatin Powder) 1 applic BID TOP Last administered on 10/30/16 10: 06; Admin Dose 1 APPLIC; Start 10/08/16 at 21:00 Collagenase (Santyl) 1 applic PRN PRN TOP WOUND CARE Last administered on 07:54; Admin Dose 1 APPLIC; Start 10/08/16 at 17:30 Lorazepam (Ativan) 2 mg Q2H PRN IV AGITATION Last administered on 10/30/16 03: 14; Admin Dose 2 MG; Start 10/16/16 at 16:00 Carvedilol (Coreg) 3.125 mg BID GTB Last administered on 10/30/16 03:59; Admin Dose 3.125 MG; Start 10/16/16 at 21:00 Fentanyl (Duragesic 50 Mcg/Hr Patch) 1 patch Q72H TRANSDERM Last administered on 10/27/16 11:30; Admin Dose 1 PATCH; Start 10/21/16 at 11:30 Apixaban (Eliquis) 5 mg BID PO Last administered on 10/30/16 09:43; Admin Dose 5 MG; Start 10/23/16 at 10:00 Methadone HCl (Methadone) 20 mg Q6 PO Last administered on 10/30/16 05:17; Admin Dose 20 MG; Start 10/23/16 at 12:00 Lorazepam (Ativan) 2 mg Q2H PRN PEG AGITATION Last administered on 10/25/16 18: 43; Admin Dose 2 MG; Start 10/25/16 at 15:00 Docusate Sodium (Colace Liquid Cup) 200 mg BID PEG Last administered on 10:06; Admin Dose 200 MG; Start 10/25/16 at 21:00; Stop 11/15/16 at 08:00 Famotidine (Pepcid) 20 mg DAILY PO Last administered on 10/30/16 09:43; Admin Dose 20 MG; Start 10/26/16 at 09:00 Polyethylene Glycol 17 gm 17 gm DAILY PRN GTB CONSTIPATION; Start 10/27/16 at 13 :30 Vancomycin HCl/ Sodium Chloride (Vancocin/NS) 250 ml @ 83.333 mls/ hr Q12H IVPB Last administered on 10/30/16t 08:55; Admin Dose 83.333 MLS/HR; Start 10/29 at 20:00 JAN ZHANG Oct 30, 2016 11:22
--- NOTE | 2016-10-30 11:59 | CONS ---
Date/Time of Note Date/Time of Note DATE: 10/30/16 TIME: 11:55 Assessment/Plan Assessment/Plan Chief Complaint/Hosp Course assessment/impression - septic shock - skin ulcer under the trach, wound culture is growing Staph species - h/o sepsis, septic shock - h/o post-op fever - h/o pneumonia with parapneumonic effusion. Could be started as CAP, other considerations include aspiration PNA. - h/o recurrent right pleural effusion. s/p diagnostic thoracentesis on 09/22/16. It showed glu=74 pro <2, GGR=[id number]. No malignancy on cytology. s/p repeat thoracentesis 10/01/16, no malignancy on cytology. R chest tube placed 10/07/16. 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) - h/o transaminitis, possibly shock liver, improved - h/o drug rash likely d/t pip/tazo, resolving - antimicrobial history: ashlyn (09/19/16-10/04/16, 10/08/16-10/10/16), azithromycin (10/02/16-10/06/16), pip/tazo (09/29/16-10/08/16), Tamiflu (10/02/16-10/08/16) - negative results: rapid influenza screen, PPD, legionella antigen, mycoplasma pneumoniae, chlamydia pneumoniae serology, and respiratory viral panel; AFB smear (09/29, 09/30, 10/01, 10/08, 10/13) recommendations: - pending results: swab of the skin under the trach bumper (growing Staph species and enterococci so far) - ordered: repeat blood cultures, urinalysis, urine culture, respiratory culture , lactic acid, procalcitonin, CXR - continue vancomycin (10/29/2016-) - repeat meropenem, start empiric caspofungin (10/30/2016-) - Pt has risk factors for invasive candidiasis (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 , receipt of broad spectrum antibacterial agents) - I recommend d/c central line management d/w Pt's RN and charge nurse Pt's going to ICU: the critical care time I took to care for this Pt today was from 1100 to 1145 Problems: Consultation Date/Type/Reason Admit Date/Time Sep 15, 2016 at 16:54 Initial Consult Date 09/29/16 Type of Consultation: ID Referring Provider: JAN ZHANG 24 HR Interval Summary Subjective hx not possible: pt non-verbal, pt critical, pt critical status Exam/Review of Systems Vital Signs Vitals Vital Signs Date Time Temp Pulse Resp B/P Pulse Ox O2 Delivery O2 Flow Rate FiO2 10/30/16 10:14 98.6 72 18 81/42 98 10/30/16 09:25 30 10/30/16 06:00 Mechanical Ventilator Intake and Output 10/29/16 10/29/16 10/30/16 15:00 23:00 07:00 Intake Total 680 ml 990 ml Output Total 1000 ml 450 ml 1100 ml Balance -320 ml -450 ml -110 ml Exam Constitutional: frail, non-verbal Psych: confusion Head: atraumatic, normocephalic Eyes: nl conjunctiva, nl lids ENMT: nl external ears & nose, nl nasal mucosa & septum Neck: other (trach) Respiratory: crackles/rales Cardiovascular: nl pulses, regular rate and rhythm Gastrointestinal: non-tender, soft Extremities: No edema Neurological: confused, lethargic Skin: nl turgor, rash or lesions (ulcer on the anterior neck) Results Result Diagram: 10/30/1642410/30/16 0425 Results 24 hrs Laboratory Tests Test 10/30/16 04:25 Anion Gap 16 Basophils # 0.0 Basophils % 0.2 Blood Urea Nitrogen 10 Calcium Level 9.4 Carbon Dioxide Level 31 Chloride Level 97 Creatinine 0.63 Eosinophils # 1.1 H Eosinophils % 6.1 Glucose Level 120 Hematocrit 38.6 L Hemoglobin 12.2 L Lymphocytes # 0.3 L Lymphocytes % 1.9 L Mean Corpuscular Hemoglobin 27.9 L Mean Corpuscular Hemoglobin Concent 31.6 L Mean Corpuscular Volume 88.1 Mean Platelet Volume 11.1 H Monocytes # 0.4 Monocytes % 2.3 Neutrophils # 15.9 H Neutrophils % 88.9 H Nucleated Red Blood Cells # 0.0 Nucleated Red Blood Cells % 0.0 Platelet Count 737 H Potassium Level 4.2 Red Blood Count 4.38 L Red Cell Distribution Width 14.6 H Sodium Level 140 White Blood Count 17.9 #H Medications Medications Current Medications Ondansetron HCl (Zofran Inj) 4 mg Q6H PRN IV NAUSEA AND/OR VOMITING; Start at 18:00 Morphine Sulfate (morphine) 2 mg Q4H PRN IV PAIN LEVEL 7-10 Last administered on 10/30/16 03:33; Admin Dose 2 MG; Start 09/15/16 at 18:00 Haloperidol (Haldol) 5 mg Q6H PRN IM AGITATION Last administered on 10/30/16 02:05; Admin Dose 5 MG; Start 09/18/16 at 11:30 Metoclopramide HCl (Reglan) 10 mg Q12 IV Last administered on 10/30/16 09:43; Admin Dose 10 MG; Start 09/24/16 at 11:30 Acetaminophen (Tylenol Liquid) 650 mg Q4H PRN NGT PAIN AND OR ELEVATED TEMP Last administered on 10/30/16 03:59; Admin Dose 650 MG; Start 09/28/16 at 13:30 Lisinopril (Zestril) 2.5 mg DAILY GTB Last administered on 10/29/16 10:36; Admin Dose 2.5 MG; Start 10/02/16 at 09:00 Collagenase (Santyl) 1 applic DAILY TOP Last administered on 10/30/16 10:07; Admin Dose 1 APPLIC; Start 10/08/16 at 20:00 Nystatin (Nystatin Powder) 1 applic BID TOP Last administered on 10/30/16 10: 06; Admin Dose 1 APPLIC; Start 10/08/16 at 21:00 Collagenase (Santyl) 1 applic PRN PRN TOP WOUND CARE Last administered on 07:54; Admin Dose 1 APPLIC; Start 10/08/16 at 17:30 Lorazepam (Ativan) 2 mg Q2H PRN IV AGITATION Last administered on 10/30/16 03: 14; Admin Dose 2 MG; Start 10/16/16 at 16:00 Carvedilol (Coreg) 3.125 mg BID GTB Last administered on 10/30/16 03:59; Admin Dose 3.125 MG; Start 10/16/16 at 21:00 Fentanyl (Duragesic 50 Mcg/Hr Patch) 1 patch Q72H TRANSDERM Last administered on 10/27/16 11:30; Admin Dose 1 PATCH; Start 10/21/16 at 11:30 Apixaban (Eliquis) 5 mg BID PO Last administered on 10/30/16 09:43; Admin Dose 5 MG; Start 10/23/16 at 10:00 Methadone HCl (Methadone) 20 mg Q6 PO Last administered on 10/30/16 05:17; Admin Dose 20 MG; Start 10/23/16 at 12:00 Lorazepam (Ativan) 2 mg Q2H PRN PEG AGITATION Last administered on 10/25/16 18: 43; Admin Dose 2 MG; Start 10/25/16 at 15:00 Docusate Sodium (Colace Liquid Cup) 200 mg BID PEG Last administered on 10:06; Admin Dose 200 MG; Start 10/25/16 at 21:00; Stop 11/15/16 at 08:00 Famotidine (Pepcid) 20 mg DAILY PO Last administered on 10/30/16 09:43; Admin Dose 20 MG; Start 10/26/16 at 09:00 Polyethylene Glycol 17 gm 17 gm DAILY PRN GTB CONSTIPATION; Start 10/27/16 at 13 :30 Vancomycin HCl/ Sodium Chloride (Vancocin/NS) 250 ml @ 83.333 mls/ hr Q12H IVPB Last administered on 10/30/16 08:55; Admin Dose 83.333 MLS/HR; Start 10/29 at 20:00 MIGUEL ERNST M.D. Oct 30, 2016 11:58
[2016-10-30] MEDS ORDERED: METHADONE 10 MG TAB PO PRN (12:00)
[2016-10-30] MEDS ORDERED: SOD CHLORIDE 0.9% 500 ML IV ONE (12:00)
--- NOTE | 2016-10-30 12:03 | CONS ---
Date/Time of Note Date/Time of Note DATE: 10/30/16 TIME: 11:52 Assessment/Plan Assessment/Plan Additional Assessment/Plan Assessment and recommendation; next 1. Patient admitted due to severe pneumonia of the right side edema with respiratory failure ultimately requiring a tracheostomy because of failure to be weaned off from mechanical ventilation due to severe drug withdrawal effects. 2. Hypertension. 3. Episode of hypotension this morning responded well to normal saline fluid bolus. 4. Continued episodes of 80 agitation requiring as needed sedation that is also precluding any further weaning from mechanical ventilation. Give another half liter of fluid bolus of normal saline. Hold antihypertensive medications that is Coreg and Zestril. Hold further Lasix. Decrease dosing of methadone to 10 mg 4 times daily. She will need to have a PICC line placed and the left subclavian catheter removed. Monitor white cell count. Consultation Date/Type/Reason Admit Date/Time Sep 15, 2016 at 16:54 Initial Consult Date 09/29/16 Type of Consultation: Pulmonary Referring Provider: JAN ZHANG 24 HR Interval Summary Free Text/Dictation Patient's condition became slightly unstable early this morning the patient became mildly hypotensive however responded well to half a liter of normal saline fluid bolus. Patient also has been getting more agitated and requiring as needed and intravenous sedation. Still on mechanical ventilation via tracheostomy sedated now. General examination; middle-aged man, sedated on mechanical ventilation. Exam/Review of Systems Vital Signs Vitals Vital Signs Date Time Temp Pulse Resp B/P Pulse Ox O2 Delivery O2 Flow Rate FiO2 10/30/16 10:14 98.6 72 18 81/42 98 10/30/16 09:25 30 10/30/16 06:00 Mechanical Ventilator Intake and Output 10/29/16 10/29/16 10/30/16 15:00 23:00 07:00 Intake Total 680 ml 990 ml Output Total 1000 ml 450 ml 1100 ml Balance -320 ml -450 ml -110 ml Exam Ventilator settings are; SIMV of 16, pressure support 10, tidal volume 500, PEEP of 5, 30% FiO2. HEENT examination; supple neck, no JVD. No lymphadenopathy. Tracheostomy in place with clean insertion site. No neck masses. Chest examination; clear to auscultation. S1-S2 audible, no murmurs. Regular rhythm. There is a left subclavian central venous line in place. Abdomen examination; soft, nondistended. G-tube in place. No organomegaly. Extremity examination; no peripheral edema. CREDIT AUTHORIZER examination; patient is currently sedated. Results Result Diagram: 10/30/1642410/30/16424 Results 24 hrs Laboratory Tests Test 10/30/16 04:25 Anion Gap 16 Basophils # 0.0 Basophils % 0.2 Blood Urea Nitrogen 10 Calcium Level 9.4 Carbon Dioxide Level 31 Chloride Level 97 Creatinine 0.63 Eosinophils # 1.1 H Eosinophils % 6.1 Glucose Level 120 Hematocrit 38.6 L Hemoglobin 12.2 L Lymphocytes # 0.3 L Lymphocytes % 1.9 L Mean Corpuscular Hemoglobin 27.9 L Mean Corpuscular Hemoglobin Concent 31.6 L Mean Corpuscular Volume 88.1 Mean Platelet Volume 11.1 H Monocytes # 0.4 Monocytes % 2.3 Neutrophils # 15.9 H Neutrophils % 88.9 H Nucleated Red Blood Cells # 0.0 Nucleated Red Blood Cells % 0.0 Platelet Count 737 H Potassium Level 4.2 Red Blood Count 4.38 L Red Cell Distribution Width 14.6 H Sodium Level 140 White Blood Count 17.9 #H Medications Medications Current Medications Ondansetron HCl (Zofran Inj) 4 mg Q6H PRN IV NAUSEA AND/OR VOMITING; Start at 18:00 Morphine Sulfate (morphine) 2 mg Q4H PRN IV PAIN LEVEL 7-10 Last administered on 10/30/16 03:33; Admin Dose 2 MG; Start 09/15/16 at 18:00 Haloperidol (Haldol) 5 mg Q6H PRN IM AGITATION Last administered on 10/30/16 02:05; Admin Dose 5 MG; Start 09/18/16 at 11:30 Metoclopramide HCl (Reglan) 10 mg Q12 IV Last administered on 10/30/16 09:43; Admin Dose 10 MG; Start 09/24/16 at 11:30 Acetaminophen (Tylenol Liquid) 650 mg Q4H PRN NGT PAIN AND OR ELEVATED TEMP Last administered on 10/30/16 03:59; Admin Dose 650 MG; Start 09/28/16 at 13:30 Lisinopril (Zestril) 2.5 mg DAILY GTB Last administered on 10/29/16 10:36; Admin Dose 2.5 MG; Start 10/02/16 at 09:00 Collagenase (Santyl) 1 applic DAILY TOP Last administered on 10/30/16 10:07; Admin Dose 1 APPLIC; Start 10/08/16 at 20:00 Nystatin (Nystatin Powder) 1 applic BID TOP Last administered on 10/30/16 10: 06; Admin Dose 1 APPLIC; Start 10/08/16 at 21:00 Collagenase (Santyl) 1 applic PRN PRN TOP WOUND CARE Last administered on 07:54; Admin Dose 1 APPLIC; Start 10/08/16 at 17:30 Lorazepam (Ativan) 2 mg Q2H PRN IV AGITATION Last administered on 10/30/16 03: 14; Admin Dose 2 MG; Start 10/16/16 at 16:00 Carvedilol (Coreg) 3.125 mg BID GTB Last administered on 10/30/16 03:59; Admin Dose 3.125 MG; Start 10/16/16 at 21:00 Fentanyl (Duragesic 50 Mcg/Hr Patch) 1 patch Q72H TRANSDERM Last administered on 10/27/16 11:30; Admin Dose 1 PATCH; Start 10/21/16 at 11:30 Apixaban (Eliquis) 5 mg BID PO Last administered on 10/30/16 09:43; Admin Dose 5 MG; Start 10/23/16 at 10:00 Methadone HCl (Methadone) 20 mg Q6 PO Last administered on 10/30/16 05:17; Admin Dose 20 MG; Start 10/23/16 at 12:00 Lorazepam (Ativan) 2 mg Q2H PRN PEG AGITATION Last administered on 10/25/16 18: 43; Admin Dose 2 MG; Start 10/25/16 at 15:00 Docusate Sodium (Colace Liquid Cup) 200 mg BID PEG Last administered on 10:06; Admin Dose 200 MG; Start 10/25/16 at 21:00; Stop 11/15/16 at 08:00 Famotidine (Pepcid) 20 mg DAILY PO Last administered on 10/30/16 09:43; Admin Dose 20 MG; Start 10/26/16 at 09:00 Polyethylene Glycol 17 gm 17 gm DAILY PRN GTB CONSTIPATION; Start 10/27/16 at 13 :30 Vancomycin HCl/ Sodium Chloride (Vancocin/NS) 250 ml @ 83.333 mls/ hr Q12H IVPB Last administered on 10/30/16t 08:55; Admin Dose 83.333 MLS/HR; Start 10/29 at 20:00 ILYA HILL Oct 30, 2016 12:03
[2016-10-30] MEDS ORDERED: CASPOFUNGIN 70 MG in SOD CHLORIDE 0.9% 250 ML IVPB ONE (13:00)
[2016-10-30] MEDS: FENTAnyl PATCH 50 MCG/HR TRANSDERM SCH (13:44)
[2016-10-30 13:55] LABS: ADD UMIC YES; URINE BILIRUBIN (Dip) 1+ (NEGATIVE); URINE BLOOD (Dip) TRACE (NEGATIVE); URINE COLOR YELLOW (YELLOW); URINE GLUCOSE (Dip) NEGATIVE (NEGATIVE); URINE KETONES (Dip) TRACE (NEGATIVE); URINE LEUKOCYTE ESTERASE (Dip) NEGATIVE (NEGATIVE); URINE NITRITE (Dip) NEGATIVE (NEGATIVE); URINE TOTAL PROTEIN (Dip) 1+ (NEGATIVE); URINE UROBILINOGEN (Dip) 2.0 E.U./dL (0.1-1.0)
--- NOTE | 2016-10-30 13:56 | RADRPT ---
PROCEDURE: XR Chest. CLINICAL INDICATION: Infiltrate. TECHNIQUE: Single AP portable chest. COMPARISON: None. FINDINGS: The cardiomediastinal silhouette is within normal limits of size . Tracheostomy tube in stable posit ion. Left PICC line catheter has been removed. Right chest tube in stable position. Slight increas e interstitial markings in the right lower lobe likely representing atelectasis unchanged compared t o prior study. No pneumothorax. The osseous structures and soft tissues are unremarkable. IMPRESSION: 1. No evidence for active cardiopulmonary disease. 2. Support devices in stable position. 3. Right lower lobe atelectasis. RPTAT:AAJJ Physician Glenis Date Time Electronically viewed and signed by Physician Glenis on 10/30/2016 13:55 VITO/
--- NOTE | 2016-10-30 14:08 | CONS ---
Date/Time of Note Date/Time of Note DATE: 10/30/16 TIME: 14:05 Assessment/Plan Assessment/Plan Additional Assessment/Plan Respiratory failure Pulmonary emboli Acute decompensated systolic congestive heart failure Severe biventricular cardiomyopathy with left ventricular ejection fraction 20% Pleural effusion Hypotension -Patient with decreased blood pressure last night and this morning. Concern for possible sepsis. Agree with holding diuretics and antihypertensives at the current time. Consultation Date/Type/Reason Admit Date/Time Sep 15, 2016 at 16:54 Initial Consult Date 09/29/16 Type of Consultation: cv Referring Provider: JAN ZHANG 24 HR Interval Summary Free Text/Dictation Patient with hypotension today Exam/Review of Systems Vital Signs Vitals Vital Signs Date Time Temp Pulse Resp B/P Pulse Ox O2 Delivery O2 Flow Rate FiO2 10/30/16 13:25 66 12 100 30 10/30/16 12:05 99.1 108/63 10/30/16 06:00 Mechanical Ventilator Intake and Output 10/29/16 10/29/16 10/30/16 14:59 22:59 06:59 Intake Total 680 ml 990 ml Output Total 1000 ml 450 ml 1100 ml Balance -320 ml -450 ml -110 ml Exam Sedated, no apparent distress Head: normocephalic Neck: other (Tracheostomy) Respiratory: other (Coarse breath sounds bilaterally, no wheezing) Cardiovascular: other (S1-S2 heard), regular rate and rhythm Gastrointestinal: bowel sounds, non-tender, soft Extremities: edema (Trace) Results Result Diagram: 10/30/16 0425 10/30/16 0425 Results 24 hrs Laboratory Tests Test 10/30/16 04:25 10/30/16 12:15 10/30/16 13:15 Anion Gap 16 Basophils # 0.0 Basophils % 0.2 Blood Urea Nitrogen 10 Calcium Level 9.4 Carbon Dioxide Level 31 Chloride Level 97 Creatinine 0.63 Eosinophils # 1.1 H Eosinophils % 6.1 Glucose Level 120 Hematocrit 38.6 L Hemoglobin 12.2 L Lymphocytes # 0.3 L Lymphocytes % 1.9 L Mean Corpuscular Hemoglobin 27.9 L Mean Corpuscular Hemoglobin Concent 31.6 L Mean Corpuscular Volume 88.1 Mean Platelet Volume 11.1 H Monocytes # 0.4 Monocytes % 2.3 Neutrophils # 15.9 H Neutrophils % 88.9 H Nucleated Red Blood Cells # 0.0 Nucleated Red Blood Cells % 0.0 Platelet Count 737 H Potassium Level 4.2 Red Blood Count 4.38 L Red Cell Distribution Width 14.6 H Sodium Level 140 White Blood Count 17.9 #H Lactic Acid Level 1.3 Urine Bilirubin 1+ H Urine Clarity SLIGHTLY CLOUDY Urine Color YELLOW Urine Glucose NEGATIVE Urine Hemoglobin TRACE Urine Ictotest Pending Urine Ketones TRACE Urine Leukocyte Esterase NEGATIVE Urine Microscopic RBC Pending Urine Microscopic WBC Pending Urine Nitrite NEGATIVE Urine Specific [place] 1.020 Urine Total Protein 1+ H Urine Urobilinogen 2.0 E.U./dL H Urine pH 6.0 Medications Medications Current Medications Ondansetron HCl (Zofran Inj) 4 mg Q6H PRN IV NAUSEA AND/OR VOMITING; Start at 18:00 Morphine Sulfate (morphine) 2 mg Q4H PRN IV PAIN LEVEL 7-10 Last administered on 10/30/16 03:33; Admin Dose 2 MG; Start 09/15/16 at 18:00 Haloperidol (Haldol) 5 mg Q6H PRN IM AGITATION Last administered on 10/30/16 02:05; Admin Dose 5 MG; Start 09/18/16 at 11:30 Metoclopramide HCl (Reglan) 10 mg Q12 IV Last administered on 10/30/16 09:43; Admin Dose 10 MG; Start 09/24/16 at 11:30 Acetaminophen (Tylenol Liquid) 650 mg Q4H PRN NGT PAIN AND OR ELEVATED TEMP Last administered on 10/30/16 03:59; Admin Dose 650 MG; Start 09/28/16 at 13:30 Collagenase (Santyl) 1 applic DAILY TOP Last administered on 10/30/16 10:07; Admin Dose 1 APPLIC; Start 10/08/16 at 20:00 Nystatin (Nystatin Powder) 1 applic BID TOP Last administered on 10/30/16 10: 06; Admin Dose 1 APPLIC; Start 10/08/16 at 21:00 Collagenase (Santyl) 1 applic PRN PRN TOP WOUND CARE Last administered on 07:54; Admin Dose 1 APPLIC; Start 10/08/16 at 17:30 Lorazepam (Ativan) 2 mg Q2H PRN IV AGITATION Last administered on 10/30/16 03: 14; Admin Dose 2 MG; Start 10/16/16 at 16:00 Fentanyl (Duragesic 50 Mcg/Hr Patch) 1 patch Q72H TRANSDERM Last administered on 10/30/16 13:44; Admin Dose 1 PATCH; Start 10/21/16 at 11:30 Apixaban (Eliquis) 5 mg BID PO Last administered on 10/30/16 09:43; Admin Dose 5 MG; Start 10/23/16 at 10:00 Lorazepam (Ativan) 2 mg Q2H PRN PEG AGITATION Last administered on 10/25/16 18: 43; Admin Dose 2 MG; Start 10/25/16 at 15:00 Docusate Sodium (Colace Liquid Cup) 200 mg BID PEG Last administered on 10:06; Admin Dose 200 MG; Start 10/25/16 at 21:00; Stop 11/15/16 at 08:00 Famotidine (Pepcid) 20 mg DAILY PO Last administered on 10/30/16 09:43; Admin Dose 20 MG; Start 10/26/16 at 09:00 Polyethylene Glycol 17 gm 17 gm DAILY PRN GTB CONSTIPATION; Start 10/27/16 at 13 :30 Vancomycin HCl 1.5 gm/Sodium Chloride 250 ml @ 83.333 mls/ hr Q12H IVPB Last administered on 10/30/16 08:55; Admin Dose 83.333 MLS/HR; Start 10/29/16 at 20: 00 Meropenem 100 ml @ 200 mls/hr Q8 IVPB ; Start 10/30/16 at 14:00 Caspofungin/ Sodium Chloride (Cancidas/NS) 250 ml @ 250 mls/hr Q24H IVPB ; Start 10/31/16 at 13:00 Methadone HCl (Methadone) 10 mg Q6H PRN PO PAIN Last administered on 10/30/16 13:13; Admin Dose 10 MG; Start 10/30/16 at 12:00 Nikolay Luna DO Oct 30, 2016 14:08
[2016-10-30 14:20] LABS: BACTERIA,URINE MODERATE; ICTOTEST NEGATIVE (NEGATIVE); URINE RBCS 0-2 /HPF (0)
[2016-10-30] MEDS: MEROPENEM 1 GM/100 ML (PMX) 100 ML IVPB SCH ×2 (14:43→23:24)
[2016-10-31] VITALS (25 sets, daily range): BP systolic 102–128; BP diastolic 54–79; PULSE 57–78; RESP 10–24
[2016-10-31] MEDS: MEROPENEM 1 GM/100 ML (PMX) 100 ML IVPB SCH ×3 (05:12→21:25)
[2016-10-31 06:36] LABS: POTASSIUM 3.8 mmol/L (3.5-5.1)
[2016-10-31 06:37] LABS: BASOPHILS % 0.2 % (0.0-2.0); EOSINOPHILS # 3.9 10^3/ul (0.0-0.5); EOSINOPHILS % 31.4 % (0.0-7.0); HEMATOCRIT 32.6 % (42.0-52.0); HEMOGLOBIN 10.1 g/dl (14.0-18.0); LYMPHOCYTES # 0.6 10^3/ul (0.8-2.9); LYMPHOCYTES % 4.6 % (15.0-51.0); MEAN CORPUSCULAR HEMOGLOBIN 28.3 pg (29.0-33.0); MEAN CORPUSCULAR VOLUME 91.3 fl (82.0-101.0); NEUTROPHIL # 6.8 10^3/ul (1.6-7.5); NEUTROPHILS % 55.3 % (39.0-77.0); PLATELET COUNT 546 10^3/UL (140-415); RED BLOOD COUNT 3.57 10^6/ul (4.70-6.10); RED CELL DISTRIBUTION WIDTH 15.3 % (11.5-14.5); WHITE BLOOD COUNT 12.3 10^3/ul (4.8-10.8)
[2016-10-31 06:39] LABS: CREATININE 0.66 mg/dl (0.61-1.24)
[2016-10-31 06:40] LABS: CALCIUM 8.5 mg/dl (8.4-10.2)
[2016-10-31] MEDS: VANCOMYCIN 1.5 GM in SOD CHLORIDE 0.9% 250 ML IVPB SCH ×2 (08:07→22:24)
[2016-10-31] MEDS: METOCLOPRAMIDE 10 MG INJ IV SCH ×2 (08:19→21:26)
[2016-10-31] MEDS: DOCUSATE SODIUM 10 MG/ML (10ML CUP) PEG SCH ×2 (08:19→21:24)
[2016-10-31] MEDS: APIXABAN 5 MG TABLET PO SCH (08:19)
[2016-10-31] MEDS: FAMOTIDINE 20 MG TAB PO SCH (08:19)
[2016-10-31] MEDS: NYSTATIN 30 GM POWDER BTL TOP SCH ×2 (10:00→21:25)
[2016-10-31] MEDS: COLLAGENASE 30 GM TUBE TOP SCH (10:00)
--- NOTE | 2016-10-31 11:26 | PN ---
Date/Time of Note Date/Time of Note DATE: 10/31/16 TIME: 11:25 Assessment/Plan VTE Prophylaxis VTE Prophylaxis Intervention: SCD's Lines/Catheters IV Catheter Type (from Nrs): Peripheral IV Urinary Cath still in place: No Assessment/Plan Assessment/Plan Respiratory failure Pulmonary emboli Acute decompensated systolic congestive heart failure Severe biventricular cardiomyopathy with left ventricular ejection fraction 20% Pleural effusion Hypotension -Patient with decreased blood pressure last night and this morning. Concern for possible sepsis. Agree with holding diuretics and antihypertensives at the current time. Subjective 24 Hr Interval Summary Free Text/Dictation tHE PATINE T WITH NO CAHNGE Exam/Review of Systems Vital Signs Vitals Vital Signs Date Time Temp Pulse Resp B/P Pulse Ox O2 Delivery O2 Flow Rate FiO2 10/31/16 09:15 64 24 97 30 10/31/16 07:17 99.2 111/57 10/31/16 03:41 Mechanical Ventilator Intake and Output 10/30/16 10/30/16 10/31/16 15:00 23:00 07:00 Intake Total 1500 ml 800 ml 1190 ml Output Total 0 ml 150 ml 200 ml Balance 1500 ml 650 ml 990 ml Results Result Diagram: 10/31/16 0540 10/31/16 0540 Results 24 hrs Laboratory Tests Test 10/30/16 12:15 10/30/16 13:15 10/31/16 05:40 Lactic Acid Level 1.3 Urine Bacteria MODERATE Urine Bilirubin 1+ H Urine Clarity SLIGHTLY CLOUDY Urine Color YELLOW Urine Glucose NEGATIVE Urine Hemoglobin TRACE Urine Ictotest NEGATIVE Urine Ketones TRACE Urine Leukocyte Esterase NEGATIVE Urine Microscopic RBC 0-2 Urine Microscopic WBC 2-5 Urine Nitrite NEGATIVE Urine Specific [place] 1.020 Urine Total Protein 1+ H Urine Urobilinogen 2.0 E.U./dL H Urine pH 6.0 Anion Gap 10 # Basophils # 0.0 Basophils % 0.2 Blood Urea Nitrogen 17 Calcium Level 8.5 Carbon Dioxide Level 32 H Chloride Level 101 Creatinine 0.66 Eosinophils # 3.9 H Eosinophils % 31.4 H Glucose Level 92 Hematocrit 32.6 L Hemoglobin 10.1 L Lymphocytes # 0.6 L Lymphocytes % 4.6 L Mean Corpuscular Hemoglobin 28.3 L Mean Corpuscular Hemoglobin Concent 31.0 L Mean Corpuscular Volume 91.3 Mean Platelet Volume 11.0 H Monocytes # 1.0 H Monocytes % 8.0 Neutrophils # 6.8 Neutrophils % 55.3 Nucleated Red Blood Cells # 0.0 Nucleated Red Blood Cells % 0.0 Platelet Count 546 #H Potassium Level 3.8 Red Blood Count 3.57 L Red Cell Distribution Width 15.3 H Sodium Level 139 White Blood Count 12.3 #H Medications Medications Current Medications Ondansetron HCl (Zofran Inj) 4 mg Q6H PRN IV NAUSEA AND/OR VOMITING; Start at 18:00 Morphine Sulfate (morphine) 2 mg Q4H PRN IV PAIN LEVEL 7-10 Last administered on 10/30/16 03:33; Admin Dose 2 MG; Start 09/15/16 at 18:00 Haloperidol (Haldol) 5 mg Q6H PRN IM AGITATION Last administered on 10/30/16 02:05; Admin Dose 5 MG; Start 09/18/16 at 11:30 Metoclopramide HCl (Reglan) 10 mg Q12 IV Last administered on 10/31/16 08:19; Admin Dose 10 MG; Start 09/24/16 at 11:30 Acetaminophen (Tylenol Liquid) 650 mg Q4H PRN NGT PAIN AND OR ELEVATED TEMP Last administered on 10/30/16 21:59; Admin Dose 650 MG; Start 09/28/16 at 13:30 Collagenase (Santyl) 1 applic DAILY TOP Last administered on 10/31/16 10:00; Admin Dose 1 APPLIC; Start 10/08/16 at 20:00 Nystatin (Nystatin Powder) 1 applic BID TOP Last administered on 10/31/16 10: 00; Admin Dose 1 APPLIC; Start 10/08/16 at 21:00 Collagenase (Santyl) 1 applic PRN PRN TOP WOUND CARE Last administered on 07:54; Admin Dose 1 APPLIC; Start 10/08/16 at 17:30 Lorazepam (Ativan) 2 mg Q2H PRN IV AGITATION Last administered on 10/30/16 03: 14; Admin Dose 2 MG; Start 10/16/16 at 16:00 Fentanyl (Duragesic 50 Mcg/Hr Patch) 1 patch Q72H TRANSDERM Last administered on 10/30/16 13:44; Admin Dose 1 PATCH; Start 10/21/16 at 11:30 Apixaban (Eliquis) 5 mg BID PO Last administered on 10/31/16 08:19; Admin Dose 5 MG; Start 10/23/16 at 10:00 Lorazepam (Ativan) 2 mg Q2H PRN PEG AGITATION Last administered on 10/25/16 18: 43; Admin Dose 2 MG; Start 10/25/16 at 15:00 Docusate Sodium (Colace Liquid Cup) 200 mg BID PEG Last administered on 08:19; Admin Dose 200 MG; Start 10/25/16 at 21:00; Stop 11/15/16 at 08:00 Famotidine (Pepcid) 20 mg DAILY PO Last administered on 10/31/16 08:19; Admin Dose 20 MG; Start 10/26/16 at 09:00 Polyethylene Glycol 17 gm 17 gm DAILY PRN GTB CONSTIPATION; Start 10/27/16 at 13 :30 Vancomycin HCl 1.5 gm/Sodium Chloride 250 ml @ 83.333 mls/ hr Q12H IVPB Last administered on 10/31/16 08:07; Admin Dose 83.333 MLS/HR; Start 10/29/16 at 20: 00 Meropenem 100 ml @ 200 mls/hr Q8 IVPB Last administered on 10/31/16 05:12; Admin Dose 200 MLS/HR; Start 10/30/16 at 14:00 Caspofungin/ Sodium Chloride (Cancidas/NS) 250 ml @ 250 mls/hr Q24H IVPB ; Start 10/31/16 at 13:00 Methadone HCl (Methadone) 10 mg Q6H PRN PO PAIN Last administered on 10/30/16 13:13; Admin Dose 10 MG; Start 10/30/16 at 12:00 Miscellaneous Information (*Rx Drug Level Order Reminder*) VANCOMYCIN TROUGH AT 1900 ONCE ONCE XX ; Start 10/31/16 at 19:00; Stop 10/31/16 at 19:01 RONAK BAE MD Oct 31, 2016 11:26
--- NOTE | 2016-10-31 12:22 | PN ---
Date/Time of Note Date/Time of Note DATE: 10/31/16 TIME: 12:18 Assessment/Plan VTE Prophylaxis VTE Prophylaxis Intervention: LMWH, other Lines/Catheters IV Catheter Type (from [facility]): Peripheral IV Urinary Cath still in place: No Assessment/Plan Assessment/Plan 1. Acute respiratory failure patient, failed extubation. Continue ventilator support. - Plan for tracheostomy tomorrow per Dr Harris/staff -- Status post tracheostomy by Dr. Marino on 10/20. - per Dr. Aquino group is following the patient from pulmonology consultation. 2. Right-sided pneumonia with complicated parapneumonic effusion, status post thoracentesis. SP chest drain placement. antibiotics - per Dr. Osullivan in Infectious Disease 3. Acute pulmonary emboli. 4. 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 Overall negative I/Os, Appreciate cardiology recommendations. CXR reviewed 5. Encephalopathy, likely toxic metabolic. Continue to monitor. Currently on sedation. 6. Intermediate QuantiFERON gold test, AFB Negative, Only droplet precaution 7. Sepsis secondary to #2, resolved. 8. Dysphagia- plan for GT placement tomorrow per Dr Hernandez covering FOR Dr Dunn - Status post G-tube placement by Dr. Galarza on 10/20 Continue Pepcid for peptic ulcer disease prophylaxis. Elaquis for DVT prophylaxis Further recommendations based on clinical course. Plan of care discussed with Dr. Patel. Subjective 24 Hr Interval Summary Free Text/Dictation Patient follows simple commands, calm at present, tolerating feeding well. no new issues reported by staff. Constitutional: no complaints, requiring IVF, requiring O2 ENT: no complaints Respiratory: no complaints Cardiovascular: no complaints Gastrointestinal: no complaints Genitourinary: no complaints Musculoskeletal: no complaints Skin: no complaints Neurologic: no complaints Lymphatic: no complaints Immunologic: no complaints Exam/Review of Systems Vital Signs Vitals Vital Signs Date Time Temp Pulse Resp B/P Pulse Ox O2 Delivery O2 Flow Rate FiO2 10/31/16 11:10 60 15 97 30 10/31/16 07:17 99.2 111/57 10/31/16 03:41 Mechanical Ventilator Intake and Output 10/30/16 10/30/16 10/31/16 15:00 23:00 07:00 Intake Total 1500 ml 800 ml 1190 ml Output Total 0 ml 150 ml 200 ml Balance 1500 ml 650 ml 990 ml Exam Constitutional: alert Psych: nl mood/affect Eyes: PERRL, nl sclera ENMT: nl external ears & nose Respiratory: diminished breath sounds Cardiovascular: nl pulses Gastrointestinal: non-tender, soft Musculoskeletal: nl extremities to inspection Extremities: normal pulses Neurological: confused Lymph: nontender Results Result Diagram: 10/31/16 0540 10/31/16 0540 Results 24 hrs Laboratory Tests Test 10/30/16 13:15 10/31/16 05:40 Urine Bacteria MODERATE Urine Bilirubin 1+ H Urine Clarity SLIGHTLY CLOUDY Urine Color YELLOW Urine Glucose NEGATIVE Urine Hemoglobin TRACE Urine Ictotest NEGATIVE Urine Ketones TRACE Urine Leukocyte Esterase NEGATIVE Urine Microscopic RBC 0-2 Urine Microscopic WBC 2-5 Urine Nitrite NEGATIVE Urine Specific [place] 1.020 Urine Total Protein 1+ H Urine Urobilinogen 2.0 E.U./dL H Urine pH 6.0 Anion Gap 10 # Basophils # 0.0 Basophils % 0.2 Blood Urea Nitrogen 17 Calcium Level 8.5 Carbon Dioxide Level 32 H Chloride Level 101 Creatinine 0.66 Eosinophils # 3.9 H Eosinophils % 31.4 H Glucose Level 92 Hematocrit 32.6 L Hemoglobin 10.1 L Lymphocytes # 0.6 L Lymphocytes % 4.6 L Mean Corpuscular Hemoglobin 28.3 L Mean Corpuscular Hemoglobin Concent 31.0 L Mean Corpuscular Volume 91.3 Mean Platelet Volume 11.0 H Monocytes # 1.0 H Monocytes % 8.0 Neutrophils # 6.8 Neutrophils % 55.3 Nucleated Red Blood Cells # 0.0 Nucleated Red Blood Cells % 0.0 Platelet Count 546 #H Potassium Level 3.8 Red Blood Count 3.57 L Red Cell Distribution Width 15.3 H Sodium Level 139 White Blood Count 12.3 #H Medications Medications Current Medications Ondansetron HCl (Zofran Inj) 4 mg Q6H PRN IV NAUSEA AND/OR VOMITING; Start at 18:00 Morphine Sulfate (morphine) 2 mg Q4H PRN IV PAIN LEVEL 7-10 Last administered on 10/30/16 03:33; Admin Dose 2 MG; Start 09/15/16 at 18:00 Haloperidol (Haldol) 5 mg Q6H PRN IM AGITATION Last administered on 10/30/16 02:05; Admin Dose 5 MG; Start 09/18/16 at 11:30 Metoclopramide HCl (Reglan) 10 mg Q12 IV Last administered on 10/31/16 08:19; Admin Dose 10 MG; Start 09/24/16 at 11:30 Acetaminophen (Tylenol Liquid) 650 mg Q4H PRN NGT PAIN AND OR ELEVATED TEMP Last administered on 10/30/16 21:59; Admin Dose 650 MG; Start 09/28/16 at 13:30 Collagenase (Santyl) 1 applic DAILY TOP Last administered on 10/31/16 10:00; Admin Dose 1 APPLIC; Start 10/08/16 at 20:00 Nystatin (Nystatin Powder) 1 applic BID TOP Last administered on 10/31/16 10: 00; Admin Dose 1 APPLIC; Start 10/08/16 at 21:00 Collagenase (Santyl) 1 applic PRN PRN TOP WOUND CARE Last administered on 07:54; Admin Dose 1 APPLIC; Start 10/08/16 at 17:30 Lorazepam (Ativan) 2 mg Q2H PRN IV AGITATION Last administered on 10/30/16 03: 14; Admin Dose 2 MG; Start 10/16/16 at 16:00 Fentanyl (Duragesic 50 Mcg/Hr Patch) 1 patch Q72H TRANSDERM Last administered on 10/30/16 13:44; Admin Dose 1 PATCH; Start 10/21/16 at 11:30 Apixaban (Eliquis) 5 mg BID PO Last administered on 10/31/16 08:19; Admin Dose 5 MG; Start 10/23/16 at 10:00 Lorazepam (Ativan) 2 mg Q2H PRN PEG AGITATION Last administered on 10/25/16 18: 43; Admin Dose 2 MG; Start 10/25/16 at 15:00 Docusate Sodium (Colace Liquid Cup) 200 mg BID PEG Last administered on 08:19; Admin Dose 200 MG; Start 10/25/16 at 21:00; Stop 11/15/16 at 08:00 Famotidine (Pepcid) 20 mg DAILY PO Last administered on 10/31/16 08:19; Admin Dose 20 MG; Start 10/26/16 at 09:00 Polyethylene Glycol 17 gm 17 gm DAILY PRN GTB CONSTIPATION; Start 10/27/16 at 13 :30 Vancomycin HCl 1.5 gm/Sodium Chloride 250 ml @ 83.333 mls/ hr Q12H IVPB Last administered on 10/31/16 08:07; Admin Dose 83.333 MLS/HR; Start 10/29/16 at 20: 00 Meropenem 100 ml @ 200 mls/hr Q8 IVPB Last administered on 10/31/16 05:12; Admin Dose 200 MLS/HR; Start 10/30/16 at 14:00 Caspofungin/ Sodium Chloride (Cancidas/NS) 250 ml @ 250 mls/hr Q24H IVPB ; Start 10/31/16 at 13:00 Methadone HCl (Methadone) 10 mg Q6H PRN PO PAIN Last administered on 10/30/16 13:13; Admin Dose 10 MG; Start 10/30/16 at 12:00 Miscellaneous Information (*Rx Drug Level Order Reminder*) VANCOMYCIN TROUGH AT 1900 ONCE ONCE XX ; Start 10/31/16 at 19:00; Stop 10/31/16 at 19:01 CECY BELTRAN Oct 31, 2016 12:22
[2016-10-31] MEDS: CASPOFUNGIN 50 MG in SOD CHLORIDE 0.9% 250 ML IVPB SCH (13:28)
--- NOTE | 2016-10-31 17:56 | CONS ---
Date/Time of Note Date/Time of Note DATE: 10/31/16 TIME: 17:54 Assessment/Plan Assessment/Plan Chief Complaint/Hosp Course assessment/impression - Recurrent sepsis with early septic shock - responded to IVF and change of abx - skin ulcer under the trach, wound culture is growing CoNS and Enterococcus - GPC bacteremia - s/p sepsis, septic shock - s/p post-op fever - s/p pneumonia with parapneumonic effusion. Could be started as CAP, other considerations include aspiration PNA. - recurrent right pleural effusion. s/p diagnostic thoracentesis on 09/22/16. It showed glu=74 pro <2, [id number]. No malignancy on cytology. s/p repeat thoracentesis 10/01/16, no malignancy on cytology. R chest tube placed 10/07/16. 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% - tox screen positive for meth and benzo (per EMR) - s/p transaminitis, possibly shock liver, improved - s/p drug rash likely d/t pip/tazo, resolving - antimicrobial history: vanco (09/19/16-10/04/16, 10/08/16-10/10/16), azithromycin (10/02/16-10/06/16), pip/tazo (09/29/16-10/08/16), Tamiflu (10/02/16-), ashlyn (10/08-10/15/16) - negative results: rapid influenza screen, PPD, legionella antigen, mycoplasma pneumoniae, chlamydia pneumoniae serology, and respiratory viral panel; AFB smear (09/29, 09/30, 10/01, 10/08, 10/13) recommendations: - pending results: swab of the skin under the trach bumper (growing CoNS and enterococci so far) - F/u repeat blood cultures (negative to date), UA (negative), urine culture ( negative to date), respiratory culture (pending), lactic acid (wnl), procalcitonin (pending), CXR (negative) - continue vancomycin (10/29/2016-) - continue meropenem and empiric caspofungin (10/30/2016-) - Pt has risk factors for invasive candidiasis (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 Marino today - management d/w Pt's RN - Above d/w Dr. Osullivan Problems: Consultation Date/Type/Reason Admit Date/Time Sep 15, 2016 at 16:54 Initial Consult Date 09/29/16 Type of Consultation: Infectious Disease Referring Provider: JAN ZHANG 24 HR Interval Summary Free Text/Dictation Pt's blood pressure improved, paz cultures sent, abx adjusted and pt now more alert, restraints and sitter dc'd, and Dr. Marino planning to DC right chest tube which has not had any drainage since 10/23/16 per RN Spencer. Pt mouths out "no " to c/o any pain, SOB, n/v/d, dysuria. Exam/Review of Systems Vital Signs Vitals Vital Signs Date Time Temp Pulse Resp B/P Pulse Ox O2 Delivery O2 Flow Rate FiO2 10/31/16 17:05 57 13 96 30 10/31/16 16:00 98.8 121/59 10/31/16 03:41 Mechanical Ventilator Intake and Output 10/30/16 10/30/16 10/31/16 15:00 23:00 07:00 Intake Total 1500 ml 800 ml 1190 ml Output Total 0 ml 150 ml 200 ml Balance 1500 ml 650 ml 990 ml Exam Constitutional: alert, non-verbal (but able to mouth out words), oriented, well developed Psych: nl mood/affect, no complaints Head: atraumatic, normocephalic Neck: other (trach midline and intact), supple, No jvd Respiratory: clear to auscultation, normal air movement, other (right chest tube intact with no drainage) Cardiovascular: nl pulses, regular rate and rhythm Gastrointestinal: non-tender, soft Extremities: normal pulses, No clubbing, No cyanosis, No edema Neurological: other (interactive, follows simple commands, GUALLPA) Skin: nl turgor, other (left SCV dressing c/d/i) Results Result Diagram: 10/31/1640 10/31/16 0540 Results 24 hrs Laboratory Tests Test 10/31/16 05:40 Anion Gap 10 # Basophils # 0.0 Basophils % 0.2 Blood Urea Nitrogen 17 Calcium Level 8.5 Carbon Dioxide Level 32 H Chloride Level 101 Creatinine 0.66 Eosinophils # 3.9 H Eosinophils % 31.4 H Glucose Level 92 Hematocrit 32.6 L Hemoglobin 10.1 L Lymphocytes # 0.6 L Lymphocytes % 4.6 L Magnesium Level 1.8 Mean Corpuscular Hemoglobin 28.3 L Mean Corpuscular Hemoglobin Concent 31.0 L Mean Corpuscular Volume 91.3 Mean Platelet Volume 11.0 H Monocytes # 1.0 H Monocytes % 8.0 Neutrophils # 6.8 Neutrophils % 55.3 Nucleated Red Blood Cells # 0.0 Nucleated Red Blood Cells % 0.0 Platelet Count 546 #H Potassium Level 3.8 Red Blood Count 3.57 L Red Cell Distribution Width 15.3 H Sodium Level 139 White Blood Count 12.3 #H Medications Medications Current Medications Ondansetron HCl (Zofran Inj) 4 mg Q6H PRN IV NAUSEA AND/OR VOMITING; Start at 18:00 Morphine Sulfate (morphine) 2 mg Q4H PRN IV PAIN LEVEL 7-10 Last administered on 10/30/16 03:33; Admin Dose 2 MG; Start 09/15/16 at 18:00 Haloperidol (Haldol) 5 mg Q6H PRN IM AGITATION Last administered on 10/30/16 02:05; Admin Dose 5 MG; Start 09/18/16 at 11:30 Metoclopramide HCl (Reglan) 10 mg Q12 IV Last administered on 10/31/16 08:19; Admin Dose 10 MG; Start 09/24/16 at 11:30 Acetaminophen (Tylenol Liquid) 650 mg Q4H PRN NGT PAIN AND OR ELEVATED TEMP Last administered on 10/30/16 21:59; Admin Dose 650 MG; Start 09/28/16 at 13:30 Collagenase (Santyl) 1 applic DAILY TOP Last administered on 10/31/16 10:00; Admin Dose 1 APPLIC; Start 10/08/16 at 20:00 Nystatin (Nystatin Powder) 1 applic BID TOP Last administered on 10/31/16 10: 00; Admin Dose 1 APPLIC; Start 10/08/16 at 21:00 Collagenase (Santyl) 1 applic PRN PRN TOP WOUND CARE Last administered on 07:54; Admin Dose 1 APPLIC; Start 10/08/16 at 17:30 Lorazepam (Ativan) 2 mg Q2H PRN IV AGITATION Last administered on 10/30/16 03: 14; Admin Dose 2 MG; Start 10/16/16 at 16:00 Fentanyl (Duragesic 50 Mcg/Hr Patch) 1 patch Q72H TRANSDERM Last administered on 10/30/16 13:44; Admin Dose 1 PATCH; Start 10/21/16 at 11:30 Apixaban (Eliquis) 5 mg BID PO Last administered on 10/31/16 08:19; Admin Dose 5 MG; Start 10/23/16 at 10:00 Lorazepam (Ativan) 2 mg Q2H PRN PEG AGITATION Last administered on 10/25/16 18: 43; Admin Dose 2 MG; Start 10/25/16 at 15:00 Docusate Sodium (Colace Liquid Cup) 200 mg BID PEG Last administered on 08:19; Admin Dose 200 MG; Start 10/25/16 at 21:00; Stop 11/15/16 at 08:00 Famotidine (Pepcid) 20 mg DAILY PO Last administered on 10/31/16 08:19; Admin Dose 20 MG; Start 10/26/16 at 09:00 Polyethylene Glycol 17 gm 17 gm DAILY PRN GTB CONSTIPATION; Start 10/27/16 at 13 :30 Vancomycin HCl 1.5 gm/Sodium Chloride 250 ml @ 83.333 mls/ hr Q12H IVPB Last administered on 10/31/16 08:07; Admin Dose 83.333 MLS/HR; Start 10/29/16 at 20: 00 Meropenem 100 ml @ 200 mls/hr Q8 IVPB Last administered on 10/31/16 14:40; Admin Dose 200 MLS/HR; Start 10/30/16 at 14:00 Caspofungin/ Sodium Chloride (Cancidas/NS) 250 ml @ 250 mls/hr Q24H IVPB Last administered on 10/31/16 13:28; Admin Dose 250 MLS/HR; Start 10/31/16 at 13:00 Methadone HCl (Methadone) 10 mg Q6H PRN PO PAIN Last administered on 10/30/16 13:13; Admin Dose 10 MG; Start 10/30/16 at 12:00 Miscellaneous Information (*Rx Drug Level Order Reminder*) VANCOMYCIN TROUGH AT 1900 ONCE ONCE XX ; Start 10/31/16 at 19:00; Stop 10/31/16 at 19:01 Procedures Procedures CXR 10/30/16: 1. No evidence for active cardiopulmonary disease. 2. Support devices in stable position. 3. Right lower lobe atelectasis. LAURA OJEDA NP Oct 31, 2016 17:56 Famotidine (Pepcid) 20 mg DAILY PO Last administered on 10/31/16 08:19; Admin Dose 20 MG; Start 10/26/16 at 09:00 Polyethylene Glycol 17 gm 17 gm DAILY PRN GTB CONSTIPATION; Start 10/27/16 at 13 :30 Vancomycin HCl 1.5 gm/Sodium Chloride 250 ml @ 83.333 mls/ hr Q12H IVPB Last administered on 10/31/16 08:07; Admin Dose 83.333 MLS/HR; Start 10/29/16 at 20: 00 Meropenem 100 ml @ 200 mls/hr Q8 IVPB Last administered on 10/31/16 14:40; Admin Dose 200 MLS/HR; Start 10/30/16 at 14:00 Caspofungin/ Sodium Chloride (Cancidas/NS) 250 ml @ 250 mls/hr Q24H IVPB Last administered on 10/31/16 13:28; Admin Dose 250 MLS/HR; Start 10/31/16 at 13:00 Methadone HCl (Methadone) 10 mg Q6H PRN PO PAIN Last administered on 10/30/16 13:13; Admin Dose 10 MG; Start 10/30/16 at 12:00 Miscellaneous Information (*Rx Drug Level Order Reminder*) VANCOMYCIN TROUGH AT 1900 ONCE ONCE XX ; Start 10/31/16 at 19:00; Stop 10/31/16 at 19:01 Procedures Procedures CXR 10/30/16: 1. No evidence for active cardiopulmonary disease. 2. Support devices in stable position. 3. Right lower lobe atelectasis. LAURA OJEDA [employer] Oct 31, 2016 17:56
--- NOTE | 2016-10-31 18:15 | PN ---
Date/Time of Note Date/Time of Note DATE: 10/31/16 TIME: 18:15 Assessment/Plan Lines/Catheters IV Catheter Type (from Nrsg): Peripheral IV Tang in Place (from Nrsg): No Assessment/Plan Chief Complaint/Hosp Course IMPRESSION 1. Pulmonary embolism. 2. Pneumonia. 3 Pleural effusion RECOMMENDATIONS: SP CT placement SP Trach will continue vent support trach care DC CT Problems: Subjective 24 Hr Interval Summary Constitutional: improved Pain Control: mild Exam/Review of Systems Vital Signs Vitals Vital Signs Date Time Temp Pulse Resp B/P Pulse Ox O2 Delivery O2 Flow Rate FiO2 10/31/16 17:05 57 13 96 30 10/31/16 16:00 98.8 121/59 10/31/16 03:41 Mechanical Ventilator Intake and Output 10/30/16 10/30/16 10/31/16 15:00 23:00 07:00 Intake Total 1500 ml 800 ml 1190 ml Output Total 0 ml 150 ml 200 ml Balance 1500 ml 650 ml 990 ml Exam Neck: non-tender, supple Respiratory: clear to auscultation, normal air movement Cardiovascular: nl pulses, regular rate and rhythm Gastrointestinal: nl liver, spleen, non-tender, soft Results Result Diagram: 10/31/16 0540 10/31/16 0540 YOUNG HAY MD Oct 31, 2016 18:15
[2016-10-31] MEDS: APIXABAN 5 MG TABLET GTB SCH (21:27)
[2016-11-01] VITALS (24 sets, daily range): BP systolic 116–136; BP diastolic 69–87; PULSE 50–70; RESP 13–20
[2016-11-01] MEDS ORDERED: LIDOCAINE 1% (MDV) 20 ML INJ SC ONE (02:30)
[2016-11-01] MEDS: ZOLPIDEM 5 MG TAB PEG PRN ×2 (03:11→20:43)
[2016-11-01] MEDS: MEROPENEM 1 GM/100 ML (PMX) 100 ML IVPB SCH ×4 (05:08→22:33)
[2016-11-01 06:42] LABS: HEMATOCRIT 32.1 % (42.0-52.0); HEMOGLOBIN 10.5 g/dl (14.0-18.0); MEAN CORPUSCULAR HEMOGLOBIN 29.2 pg (29.0-33.0); MEAN CORPUSCULAR HGB CONC 32.7 g/dl (32.0-37.0); MEAN CORPUSCULAR VOLUME 89.3 fl (82.0-101.0); MEAN PLATELET VOLUME 9.7 fl (7.4-10.4); PLATELET COUNT 543 10^3/UL (140-440); RED CELL DISTRIBUTION WIDTH 15.7 % (11.5-14.5); UNCORRECTED WBC 11.4 10^3/ul (4.8-10.8); WHITE BLOOD COUNT 11.4 10^3/ul (4.8-10.8)
[2016-11-01 06:47] LABS: CONDITION 1; LH ANALYZER COMMENTS 1
[2016-11-01 07:14] LABS: POTASSIUM 3.8 mmol/L (3.5-5.1)
[2016-11-01 07:16] LABS: CREATININE 0.5 mg/dl (0.61-1.24)
[2016-11-01 07:18] LABS: CALCIUM 8.7 mg/dl (8.4-10.2)
[2016-11-01 08:53] LABS: PLATELET ESTIMATE PLT APPEAR INCREASED
[2016-11-01 08:55] LABS: BASOPHILS % 0.1 % (0.0-2.0); LYMPHOCYTES % 7.7 % (15.0-51.0); MONOCYTES % 8.8 % (0.0-11.0); NEUTROPHILS % 57.4 % (39.0-77.0)
[2016-11-01 08:56] LABS: LYMPHOCYTES # 0.9 10^3/ul (0.8-2.9); NEUTROPHIL # 6.5 10^3/ul (1.6-7.5)
[2016-11-01] MEDS: DOCUSATE SODIUM 10 MG/ML (10ML CUP) PEG SCH ×2 (09:00→20:35)
[2016-11-01] MEDS: COLLAGENASE 30 GM TUBE TOP SCH (09:00)
[2016-11-01] MEDS: NYSTATIN 30 GM POWDER BTL TOP SCH ×2 (09:15→21:00)
[2016-11-01] MEDS: VANCOMYCIN 1.5 GM in SOD CHLORIDE 0.9% 250 ML IVPB SCH ×2 (09:15→20:35)
[2016-11-01] MEDS: FAMOTIDINE 20 MG TAB PO SCH (09:15)
[2016-11-01] MEDS: METOCLOPRAMIDE 10 MG INJ IV SCH ×2 (09:16→20:35)
[2016-11-01] MEDS: APIXABAN 5 MG TABLET GTB SCH ×2 (09:16→20:35)
[2016-11-01] MEDS ORDERED: MAGNESIUM SULFATE 3 GM in SOD CHLORIDE 0.9% 100 ML IVPB ONE (09:30)
--- NOTE | 2016-11-01 11:25 | PN ---
Date/Time of Note Date/Time of Note DATE: 11/01/16 TIME: 11:24 Assessment/Plan VTE Prophylaxis VTE Prophylaxis Intervention: other Lines/Catheters Urinary Cath still in place: No Assessment/Plan Chief Complaint/Hosp Course IMPRESSION 1. Pulmonary embolism. 2. Pneumonia. 3 Pleural effusion RECOMMENDATIONS: SP CT placement SP Trach will continue vent support trach care CT DCed CXR with no PTX Problems: Subjective 24 Hr Interval Summary Gastrointestinal: no complaints Genitourinary: no complaints Musculoskeletal: no complaints Skin: no complaints Exam/Review of Systems Vital Signs Vitals Vital Signs Date Time Temp Pulse Resp B/P Pulse Ox O2 Delivery O2 Flow Rate FiO2 11/01/16 10:00 30 11/01/16 09:05 58 16 99 11/01/16 08:05 98.9 116/71 10/31/16 03:41 Mechanical Ventilator Intake and Output 10/31/16 10/31/16 11/01/16 15:00 23:00 07:00 Intake Total 880 ml 950 ml Output Total 150 ml 280 ml 900 ml Balance -150 ml 600 ml 50 ml Exam Respiratory: clear to auscultation, normal air movement Cardiovascular: nl pulses, regular rate and rhythm Gastrointestinal: nl liver, spleen, non-tender, soft Results Result Diagram: 11/01/16 0520 11/01/16 0520 Results 24 hrs Laboratory Tests Test 10/31/16 18:45 11/01/16 05:20 Vancomycin Level Trough 16.0 Anion Gap 12 Basophils # 0.0 Basophils % 0.1 Blood Morphology Comment Blood Urea Nitrogen 12 Calcium Level 8.7 Carbon Dioxide Level 32 H Chloride Level 98 Creatinine 0.50 L Differential Comment AUTO w/SCAN Eosinophils # 3.0 H Eosinophils % 26.0 H Glucose Level 92 Hematocrit 32.1 L Hemoglobin 10.5 L Large Platelets FEW Lymphocytes # 0.9 Lymphocytes % 7.7 L Magnesium Level 1.5 L Mean Corpuscular Hemoglobin 29.2 Mean Corpuscular Hemoglobin Concent 32.7 Mean Corpuscular Volume 89.3 Mean Platelet Volume 9.7 Monocytes # 1.0 H Monocytes % 8.8 Neutrophils # 6.5 Neutrophils % 57.4 Nucleated Red Blood Cells # 0.0 Nucleated Red Blood Cells % 0.0 Platelet Count 543 H Platelet Estimate PLT APPEAR INCREASED Potassium Level 3.8 Red Blood Count 3.60 L Red Cell Distribution Width 15.7 H Sodium Level 138 White Blood Count 11.4 H Medications Medications Current Medications Ondansetron HCl (Zofran Inj) 4 mg Q6H PRN IV NAUSEA AND/OR VOMITING; Start at 18:00 Morphine Sulfate (morphine) 2 mg Q4H PRN IV PAIN LEVEL 7-10 Last administered on 10/30/16 03:33; Admin Dose 2 MG; Start 09/15/16 at 18:00 Haloperidol (Haldol) 5 mg Q6H PRN IM AGITATION Last administered on 10/30/16 02:05; Admin Dose 5 MG; Start 09/18/16 at 11:30 Metoclopramide HCl (Reglan) 10 mg Q12 IV Last administered on 11/01/16 09:16; Admin Dose 10 MG; Start 09/24/16 at 11:30 Acetaminophen (Tylenol Liquid) 650 mg Q4H PRN NGT PAIN AND OR ELEVATED TEMP Last administered on 10/30/16 21:59; Admin Dose 650 MG; Start 09/28/16 at 13:30 Collagenase (Santyl) 1 applic DAILY TOP Last administered on 11/01/16 09:00; Admin Dose 1 APPLIC; Start 10/08/16 at 20:00 Nystatin (Nystatin Powder) 1 applic BID TOP Last administered on 11/01/16 09: 15; Admin Dose 1 APPLIC; Start 10/08/16 at 21:00 Collagenase (Santyl) 1 applic PRN PRN TOP WOUND CARE Last administered on 07:54; Admin Dose 1 APPLIC; Start 10/08/16 at 17:30 Lorazepam (Ativan) 2 mg Q2H PRN IV AGITATION Last administered on 10/30/16 03: 14; Admin Dose 2 MG; Start 10/16/16 at 16:00 Fentanyl (Duragesic 50 Mcg/Hr Patch) 1 patch Q72H TRANSDERM Last administered on 10/30/16 13:44; Admin Dose 1 PATCH; Start 10/21/16 at 11:30 Lorazepam (Ativan) 2 mg Q2H PRN PEG AGITATION Last administered on 10/25/16 18: 43; Admin Dose 2 MG; Start 10/25/16 at 15:00 Docusate Sodium (Colace Liquid Cup) 200 mg BID PEG Last administered on 21:24; Admin Dose 200 MG; Start 10/25/16 at 21:00; Stop 11/15/16 at 08:00 Famotidine (Pepcid) 20 mg DAILY PO Last administered on 11/01/16 09:15; Admin Dose 20 MG; Start 10/26/16 at 09:00 Polyethylene Glycol 17 gm 17 gm DAILY PRN GTB CONSTIPATION; Start 10/27/16 at 13 :30 Vancomycin HCl 1.5 gm/Sodium Chloride 250 ml @ 83.333 mls/ hr Q12H IVPB Last administered on 11/01/16 09:15; Admin Dose 83.333 MLS/HR; Start 10/29/16 at 20: 00 Meropenem 100 ml @ 200 mls/hr Q8 IVPB Last administered on 11/01/16 05:08; Admin Dose 200 MLS/HR; Start 10/30/16 at 14:00 Caspofungin/ Sodium Chloride (Cancidas/NS) 250 ml @ 250 mls/hr Q24H IVPB Last administered on 10/31/16 13:28; Admin Dose 250 MLS/HR; Start 10/31/16 at 13:00 Methadone HCl (Methadone) 10 mg Q6H PRN PO PAIN Last administered on 10/30/16 13:13; Admin Dose 10 MG; Start 10/30/16 at 12:00 Miscellaneous Information (*Rx Drug Level Order Reminder*) VANCOMYCIN TROUGH AT 1900 ONCE ONCE XX ; Start 10/31/16 at 19:00; Stop 10/31/16 at 19:01 Apixaban (Eliquis) 5 mg BID GTB Last administered on 11/01/16 09:16; Admin Dose 5 MG; Start 10/31/16 at 21:00 Lidocaine (Xylocaine 1% (Mdv) 20 ml) 20 ml ONCE ONCE SC ; Start 11/01/16 at 02: 30; Stop 11/01/16 at 02:31 Zolpidem Tartrate 10 mg 10 mg HS PRN PEG INSOMNIA Last administered on 03:11; Admin Dose 10 MG; Start 11/01/16 at 03:00 Magnesium Sulfate/ Sodium Chloride (Magnesium Sulfate/NS) 106 ml @ 35.333 mls/ hr ONCE ONCE IVPB Last administered on 11/01/16 10:42; Admin Dose 35.333 MLS/ HR; Start 11/01/16 at 09:30; Stop 11/01/16 at 12:29 YOUNG HAY MD Nov 01, 2016 11:25
[2016-11-01] MEDS: CASPOFUNGIN 50 MG in SOD CHLORIDE 0.9% 250 ML IVPB SCH (13:13)
--- NOTE | 2016-11-01 13:13 | RADRPT ---
PROCEDURE: XR Chest. CLINICAL INDICATION: PICC line placement TECHNIQUE: PA and lateral chest x-ray. COMPARISON: 10/30/2016 FINDINGS: There has been interval placement of left-sided PICC line which terminates in the superior vena cava 3 cm above the cavoatrial junction. The lungs are clear. No pleural effusion identified. No evidence of pneumothorax. The cardiomediastinal silhouette is unremarkable. The soft tissues are within normal limits. Bony structures are unremarkable. IMPRESSION: 1. Interval placement of left-sided PICC line which terminates 3 cm above the cavoatrial junction i n the superior vena cava. 2. No acute disease is seen in the chest. 3. Stable and satisfactory position of tracheostomy tube. RPTAT: QQ .Rodrigo Andre MD, Date Time Electronically viewed and signed by .Rodrigo Andre MD, on 11/01/2016 13:13 .M/
--- NOTE | 2016-11-01 13:37 | PN ---
Date/Time of Note Date/Time of Note DATE: 11/01/16 TIME: 13:32 Assessment/Plan VTE Prophylaxis VTE Prophylaxis Intervention: SCD's Lines/Catheters Urinary Cath still in place: No Assessment/Plan Assessment/Plan 1. Acute respiratory failure patient, failed extubation. Continue ventilator support. - Plan for tracheostomy tomorrow per Dr Harris/staff -- Status post tracheostomy by Dr. Marino on 10/20. - per Dr. Aquino group is following the patient from pulmonology consultation. 2. Right-sided pneumonia with complicated parapneumonic effusion, status post thoracentesis. SP chest drain placement. antibiotics - per Dr. Osullivan in Infectious Disease 3. Acute pulmonary emboli. 4. 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 Overall negative I/Os, Appreciate cardiology recommendations. CXR reviewed 5. Encephalopathy, likely toxic metabolic. Continue to monitor. Currently on sedation. 6. Intermediate QuantiFERON gold test, AFB Negative, Only droplet precaution 7. Sepsis secondary to #2, resolved. 8. Dysphagia- plan for GT placement tomorrow per Dr Hernandez covering FOR Dr Dunn - Status post G-tube placement by Dr. Galarza on 10/20 Continue Pepcid for peptic ulcer disease prophylaxis. Elaquis for DVT prophylaxis Further recommendations based on clinical course. Plan of care discussed with Dr. Patel. Subjective 24 Hr Interval Summary Constitutional: requiring IVF, requiring O2 Eyes: no complaints ENT: no complaints Respiratory: no complaints Cardiovascular: no complaints Gastrointestinal: no complaints Genitourinary: no complaints Musculoskeletal: no complaints Skin: no complaints Neurologic: no complaints Endocrine: no complaints Lymphatic: no complaints Psychological: no complaints Exam/Review of Systems Vital Signs Vitals Vital Signs Date Time Temp Pulse Resp B/P Pulse Ox O2 Delivery O2 Flow Rate FiO2 11/01/16 13:20 59 17 97 30 11/01/16 12:04 98.7 125/87 10/31/16 03:41 Mechanical Ventilator Intake and Output 10/31/16 10/31/16 11/01/16 15:00 23:00 07:00 Intake Total 880 ml 950 ml Output Total 150 ml 280 ml 900 ml Balance -150 ml 600 ml 50 ml Exam Constitutional: alert Psych: no complaints Eyes: EOMI, PERRL, nl sclera ENMT: nl external ears & nose Neck: non-tender Respiratory: clear to auscultation Cardiovascular: nl pulses Gastrointestinal: non-tender, soft Musculoskeletal: nl extremities to inspection Extremities: normal pulses Neurological: nl mental status, nl speech Lymph: nontender Results Result Diagram: 11/01/16 0520 11/01/16 0520 Results 24 hrs Laboratory Tests Test 10/31/16 18:45 11/01/16 05:20 Vancomycin Level Trough 16.0 Anion Gap 12 Basophils # 0.0 Basophils % 0.1 Blood Morphology Comment Blood Urea Nitrogen 12 Calcium Level 8.7 Carbon Dioxide Level 32 H Chloride Level 98 Creatinine 0.50 L Differential Comment AUTO w/SCAN Eosinophils # 3.0 H Eosinophils % 26.0 H Glucose Level 92 Hematocrit 32.1 L Hemoglobin 10.5 L Large Platelets FEW Lymphocytes # 0.9 Lymphocytes % 7.7 L Magnesium Level 1.5 L Mean Corpuscular Hemoglobin 29.2 Mean Corpuscular Hemoglobin Concent 32.7 Mean Corpuscular Volume 89.3 Mean Platelet Volume 9.7 Monocytes # 1.0 H Monocytes % 8.8 Neutrophils # 6.5 Neutrophils % 57.4 Nucleated Red Blood Cells # 0.0 Nucleated Red Blood Cells % 0.0 Platelet Count 543 H Platelet Estimate PLT APPEAR INCREASED Potassium Level 3.8 Red Blood Count 3.60 L Red Cell Distribution Width 15.7 H Sodium Level 138 White Blood Count 11.4 H Medications Medications Current Medications Ondansetron HCl (Zofran Inj) 4 mg Q6H PRN IV NAUSEA AND/OR VOMITING; Start at 18:00 Morphine Sulfate (morphine) 2 mg Q4H PRN IV PAIN LEVEL 7-10 Last administered on 10/30/16 03:33; Admin Dose 2 MG; Start 09/15/16 at 18:00 Haloperidol (Haldol) 5 mg Q6H PRN IM AGITATION Last administered on 10/30/16 02:05; Admin Dose 5 MG; Start 09/18/16 at 11:30 Metoclopramide HCl (Reglan) 10 mg Q12 IV Last administered on 11/01/16 09:16; Admin Dose 10 MG; Start 09/24/16 at 11:30 Acetaminophen (Tylenol Liquid) 650 mg Q4H PRN NGT PAIN AND OR ELEVATED TEMP Last administered on 10/30/16 21:59; Admin Dose 650 MG; Start 09/28/16 at 13:30 Collagenase (Santyl) 1 applic DAILY TOP Last administered on 11/01/16 09:00; Admin Dose 1 APPLIC; Start 10/08/16 at 20:00 Nystatin (Nystatin Powder) 1 applic BID TOP Last administered on 11/01/16 09: 15; Admin Dose 1 APPLIC; Start 10/08/16 at 21:00 Collagenase (Santyl) 1 applic PRN PRN TOP WOUND CARE Last administered on 07:54; Admin Dose 1 APPLIC; Start 10/08/16 at 17:30 Lorazepam (Ativan) 2 mg Q2H PRN IV AGITATION Last administered on 10/30/16 03: 14; Admin Dose 2 MG; Start 10/16/16 at 16:00 Fentanyl (Duragesic 50 Mcg/Hr Patch) 1 patch Q72H TRANSDERM Last administered on 10/30/16 13:44; Admin Dose 1 PATCH; Start 10/21/16 at 11:30 Lorazepam (Ativan) 2 mg Q2H PRN PEG AGITATION Last administered on 10/25/16 18: 43; Admin Dose 2 MG; Start 10/25/16 at 15:00 Docusate Sodium (Colace Liquid Cup) 200 mg BID PEG Last administered on 21:24; Admin Dose 200 MG; Start 10/25/16 at 21:00; Stop 11/15/16 at 08:00 Famotidine (Pepcid) 20 mg DAILY PO Last administered on 11/01/16 09:15; Admin Dose 20 MG; Start 10/26/16 at 09:00 Polyethylene Glycol 17 gm 17 gm DAILY PRN GTB CONSTIPATION; Start 10/27/16 at 13 :30 Vancomycin HCl 1.5 gm/Sodium Chloride 250 ml @ 83.333 mls/ hr Q12H IVPB Last administered on 11/01/16 09:15; Admin Dose 83.333 MLS/HR; Start 10/29/16 at 20: 00 Meropenem 100 ml @ 200 mls/hr Q8 IVPB Last administered on 11/01/16 05:08; Admin Dose 200 MLS/HR; Start 10/30/16 at 14:00 Caspofungin/ Sodium Chloride (Cancidas/NS) 250 ml @ 250 mls/hr Q24H IVPB Last administered on 11/01/16 13:13; Admin Dose 250 MLS/HR; Start 10/31/16 at 13:00 Methadone HCl (Methadone) 10 mg Q6H PRN PO PAIN Last administered on 10/30/16 13:13; Admin Dose 10 MG; Start 10/30/16 at 12:00 Apixaban (Eliquis) 5 mg BID GTB Last administered on 11/01/16 09:16; Admin Dose 5 MG; Start 10/31/16 at 21:00 Lidocaine (Xylocaine 1% (Mdv) 20 ml) 20 ml ONCE ONCE SC ; Start 11/01/16 at 02: 30; Stop 11/01/16 at 02:31 Zolpidem Tartrate 10 mg 10 mg HS PRN PEG INSOMNIA Last administered on 03:11; Admin Dose 10 MG; Start 11/01/16 at 03:00 Magnesium Sulfate/ Sodium Chloride (Magnesium Sulfate/NS) 106 ml @ 35.333 mls/ hr ONCE ONCE IVPB Last administered on 11/01/16 10:42; Admin Dose 35.333 MLS/ HR; Start 11/01/16 at 09:30; Stop 11/01/16 at 12:29 CECY BELTRAN Nov 01, 2016 13:37
--- NOTE | 2016-11-01 15:17 | RADRPT ---
PROCEDURE: US guidance for PICC line CLINICAL INDICATION: PICC line placement TECHNIQUE: Multiple real-time images were acquired of the patient's arm utilizing a high resolutio n transducer. This was performed by the PICC line nurse for venous access. COMPARISON: None FINDINGS: Ultrasound guidance for PICC line placement. IMPRESSION: Ultrasound guidance for PICC line placement. RPTAT: AA .Ricky Hunt MD, MD Date Time Electronically viewed and signed by .Ricky Hunt MD, on 11/01/2016 15:16 .S/
[2016-11-01] MEDS ORDERED: HEPARIN (10 UNITS/ML) 5ML SYG IV ONE (15:30)
--- NOTE | 2016-11-01 16:48 | CONS ---
Date/Time of Note Date/Time of Note DATE: 11/01/16 TIME: 16:44 Consult Date/Type/Reason Admit Date/Time Sep 15, 2016 at 16:54 Type of Consultation: Pulm Ordering Provider: JAN ZHANG Subjective On MV. s/p PICC placement. Objective Vital Signs Date Time Temp Pulse Resp B/P Pulse Ox O2 Delivery O2 Flow Rate FiO2 11/01/16 16:00 98.4 57 18 129/76 100 11/01/16 15:05 30 10/31/16 03:41 Mechanical Ventilator Intake and Output 10/31/16 10/31/16 11/01/16 15:00 23:00 07:00 Intake Total 880 ml 950 ml Output Total 150 ml 280 ml 900 ml Balance -150 ml 600 ml 50 ml HEENT: Neck supple; no JVD; no LAD, trach site clear CVS: RRR, S1 and S2 CHEST: Clear ABD: Soft, NT, + BS EXT: No c/c; + edema Results/Medications Result Diagram: 11/01/16 0520 11/01/16 0520 Results 24 hrs Laboratory Tests Test 10/31/16 18:45 11/01/16 05:20 Vancomycin Level Trough 16.0 Anion Gap 12 Basophils # 0.0 Basophils % 0.1 Blood Morphology Comment Blood Urea Nitrogen 12 Calcium Level 8.7 Carbon Dioxide Level 32 H Chloride Level 98 Creatinine 0.50 L Differential Comment AUTO w/SCAN Eosinophils # 3.0 H Eosinophils % 26.0 H Glucose Level 92 Hematocrit 32.1 L Hemoglobin 10.5 L Large Platelets FEW Lymphocytes # 0.9 Lymphocytes % 7.7 L Magnesium Level 1.5 L Mean Corpuscular Hemoglobin 29.2 Mean Corpuscular Hemoglobin Concent 32.7 Mean Corpuscular Volume 89.3 Mean Platelet Volume 9.7 Monocytes # 1.0 H Monocytes % 8.8 Neutrophils # 6.5 Neutrophils % 57.4 Nucleated Red Blood Cells # 0.0 Nucleated Red Blood Cells % 0.0 Platelet Count 543 H Platelet Estimate PLT APPEAR INCREASED Potassium Level 3.8 Red Blood Count 3.60 L Red Cell Distribution Width 15.7 H Sodium Level 138 White Blood Count 11.4 H Medications Current Medications Ondansetron HCl (Zofran Inj) 4 mg Q6H PRN IV NAUSEA AND/OR VOMITING; Start 12/ 27/16 at 18:00 Morphine Sulfate (morphine) 2 mg Q4H PRN IV PAIN LEVEL 7-10 Last administered on 10/30/16 03:33; Admin Dose 2 MG; Start 09/15/16 at 18:00 Haloperidol (Haldol) 5 mg Q6H PRN IM AGITATION Last administered on 10/30/16 02:05; Admin Dose 5 MG; Start 09/18/16 at 11:30 Metoclopramide HCl (Reglan) 10 mg Q12 IV Last administered on 11/01/16 09:16; Admin Dose 10 MG; Start 09/24/16 at 11:30 Acetaminophen (Tylenol Liquid) 650 mg Q4H PRN NGT PAIN AND OR ELEVATED TEMP Last administered on 10/30/16 21:59; Admin Dose 650 MG; Start 09/28/16 at 13:30 Collagenase (Santyl) 1 applic DAILY TOP Last administered on 11/01/16 09:00; Admin Dose 1 APPLIC; Start 10/08/16 at 20:00 Nystatin (Nystatin Powder) 1 applic BID TOP Last administered on 11/01/16 09: 15; Admin Dose 1 APPLIC; Start 10/08/16 at 21:00 Collagenase (Santyl) 1 applic PRN PRN TOP WOUND CARE Last administered on 07:54; Admin Dose 1 APPLIC; Start 10/08/16 at 17:30 Lorazepam (Ativan) 2 mg Q2H PRN IV AGITATION Last administered on 10/30/16 03: 14; Admin Dose 2 MG; Start 10/16/16 at 16:00 Fentanyl (Duragesic 50 Mcg/Hr Patch) 1 patch Q72H TRANSDERM Last administered on 10/30/16 13:44; Admin Dose 1 PATCH; Start 10/21/16 at 11:30 Lorazepam (Ativan) 2 mg Q2H PRN PEG AGITATION Last administered on 10/25/16 18: 43; Admin Dose 2 MG; Start 10/25/16 at 15:00 Docusate Sodium (Colace Liquid Cup) 200 mg BID PEG Last administered on 21:24; Admin Dose 200 MG; Start 10/25/16 at 21:00; Stop 11/15/16 at 08:00 Famotidine (Pepcid) 20 mg DAILY PO Last administered on 11/01/16 09:15; Admin Dose 20 MG; Start 10/26/16 at 09:00 Polyethylene Glycol 17 gm 17 gm DAILY PRN GTB CONSTIPATION; Start 10/27/16 at 13 :30 Vancomycin HCl 1.5 gm/Sodium Chloride 250 ml @ 83.333 mls/ hr Q12H IVPB Last administered on 11/01/16 09:15; Admin Dose 83.333 MLS/HR; Start 10/29/16 at 20: 00 Meropenem 100 ml @ 200 mls/hr Q8 IVPB Last administered on 11/01/16 14:21; Admin Dose 200 MLS/HR; Start 10/30/16 at 14:00 Caspofungin/ Sodium Chloride (Cancidas/NS) 250 ml @ 250 mls/hr Q24H IVPB Last administered on 11/01/16 13:13; Admin Dose 250 MLS/HR; Start 10/31/16 at 13:00 Methadone HCl (Methadone) 10 mg Q6H PRN PO PAIN Last administered on 10/30/16 13:13; Admin Dose 10 MG; Start 10/30/16 at 12:00 Apixaban (Eliquis) 5 mg BID GTB Last administered on 11/01/16 09:16; Admin Dose 5 MG; Start 10/31/16 at 21:00 Zolpidem Tartrate (Ambien) 10 mg HS PRN PEG INSOMNIA Last administered on 03:11; Admin Dose 10 MG; Start 11/01/16 at 03:00 IV Flush (NS 10 ml) 10 ml ONCE IV ; Start 11/01/16 at 15:30; Stop 11/01/16 at 18 :00 Assessment/Plan Additional Assessment/Plan IMP: 1. VDRF-s/p trach 2. Right-sided pneumonia with complicated parapneumonic effusion, status post thoracentesis 3. Acute pulmonary embol 4. 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 5. Encephalopathy RECS: 1. Vent support 2. TF's/free H2O 3. May consider slow SIMV/PS wean NAV DAVIDSON MD Nov 01, 2016 16:47
--- NOTE | 2016-11-01 19:47 | CONS ---
Date/Time of Note Date/Time of Note DATE: 11/01/16 TIME: 19:39 Assessment/Plan Assessment/Plan Chief Complaint/Hosp Course assessment/impression - Recurrent sepsis with early septic shock - responded to IVF and change of abx - skin ulcer under the trach, wound culture is growing CoNS and Enterococcus - Staph bacteremia d/t line sepsis; central line cath tip cx growing staph 10/30 - s/p sepsis, septic shock - s/p post-op fever - s/p pneumonia with parapneumonic effusion. Could be started as CAP, other considerations include aspiration PNA. - recurrent right pleural effusion. s/p diagnostic thoracentesis on 09/22/16. It showed glu=74 pro <2, CHE=[id number]. No malignancy on cytology. s/p repeat thoracentesis 10/01/16, no malignancy on cytology. 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) - s/p transaminitis, possibly shock liver, improved - s/p drug rash likely d/t pip/tazo, resolving - antimicrobial history: vanco (09/19/16-10/04/16, 10/08/16-10/10/16), azithromycin (10/02/16-10/06/16), pip/tazo (09/29/16-10/08/16), Tamiflu (10/02/16-), ashlyn (10/08-10/15/16) - negative results: rapid influenza screen, PPD, legionella antigen, mycoplasma pneumoniae, chlamydia pneumoniae serology, and respiratory viral panel; AFB smear (09/29, 09/30, 10/01, 10/08, 10/13) recommendations: - pending results: swab of the skin under the trach bumper (growing CoNS and enterococci so far) - F/u repeat blood cultures (negative to date), UA (negative), urine culture ( negative to date), respiratory culture (pending ->cancelled?), lactic acid (wnl) , procalcitonin (pending), CXR (negative) - continue vancomycin (10/29/2016-) for staph bacteremia; f/u sens - continue meropenem and empiric caspofungin (10/30/2016-) - Pt has risk factors for invasive candidiasis (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 Osullivan Problems: Consultation Date/Type/Reason Admit Date/Time Sep 15, 2016 at 16:54 Initial Consult Date 09/29/16 Type of Consultation: Infectious Disease Referring Provider: JAN ZHANG 24 HR Interval Summary Free Text/Dictation Anxious to have trach removed otherwise remains hemodynamically stable per RN Kaci. Motions that he wants trach to be removed. Right chest tube was removed yesterday evening. Nods no to pain, SOB, n/v/d, dysuria. Exam/Review of Systems Vital Signs Vitals Vital Signs Date Time Temp Pulse Resp B/P Pulse Ox O2 Delivery O2 Flow Rate FiO2 11/01/16 17:05 66 20 98 30 11/01/16 16:00 98.4 129/76 10/31/16 03:41 Mechanical Ventilator Intake and Output 10/31/16 10/31/16 11/01/16 15:00 23:00 07:00 Intake Total 880 ml 950 ml Output Total 150 ml 280 ml 900 ml Balance -150 ml 600 ml 50 ml Exam Constitutional: alert, non-verbal (but able to mouth out words), oriented, well developed Psych: nl mood/affect, no complaints Head: atraumatic, normocephalic Neck: other (trach midline and intact), supple, No jvd Respiratory: clear to auscultation, normal air movement Cardiovascular: nl pulses, regular rate and rhythm Gastrointestinal: non-tender, soft Extremities: normal pulses, No clubbing, No cyanosis, No edema Neurological: other (interactive, follows simple commands, GUALLPA) Skin: nl turgor, other (left SCV dressing c/d/i) Results Result Diagram: 11/01/16 0520 11/01/16 0520 Results 24 hrs Laboratory Tests Test 11/01/16 05:20 Anion Gap 12 Basophils # 0.0 Basophils % 0.1 Blood Morphology Comment Blood Urea Nitrogen 12 Calcium Level 8.7 Carbon Dioxide Level 32 H Chloride Level 98 Creatinine 0.50 L Differential Comment AUTO w/SCAN Eosinophils # 3.0 H Eosinophils % 26.0 H Glucose Level 92 Hematocrit 32.1 L Hemoglobin 10.5 L Large Platelets FEW Lymphocytes # 0.9 Lymphocytes % 7.7 L Magnesium Level 1.5 L Mean Corpuscular Hemoglobin 29.2 Mean Corpuscular Hemoglobin Concent 32.7 Mean Corpuscular Volume 89.3 Mean Platelet Volume 9.7 Monocytes # 1.0 H Monocytes % 8.8 Neutrophils # 6.5 Neutrophils % 57.4 Nucleated Red Blood Cells # 0.0 Nucleated Red Blood Cells % 0.0 Platelet Count 543 H Platelet Estimate PLT APPEAR INCREASED Potassium Level 3.8 Red Blood Count 3.60 L Red Cell Distribution Width 15.7 H Sodium Level 138 White Blood Count 11.4 H Medications Medications Current Medications Ondansetron HCl (Zofran Inj) 4 mg Q6H PRN IV NAUSEA AND/OR VOMITING; Start at 18:00 Morphine Sulfate (morphine) 2 mg Q4H PRN IV PAIN LEVEL 7-10 Last administered on 10/30/16 03:33; Admin Dose 2 MG; Start 09/15/16 at 18:00 Haloperidol (Haldol) 5 mg Q6H PRN IM AGITATION Last administered on 10/30/16 02:05; Admin Dose 5 MG; Start 09/18/16 at 11:30 Metoclopramide HCl (Reglan) 10 mg Q12 IV Last administered on 11/01/16 09:16; Admin Dose 10 MG; Start 09/24/16 at 11:30 Acetaminophen (Tylenol Liquid) 650 mg Q4H PRN NGT PAIN AND OR ELEVATED TEMP Last administered on 10/30/16 21:59; Admin Dose 650 MG; Start 09/28/16 at 13:30 Collagenase (Santyl) 1 applic DAILY TOP Last administered on 11/01/16 09:00; Admin Dose 1 APPLIC; Start 10/08/16 at 20:00 Nystatin (Nystatin Powder) 1 applic BID TOP Last administered on 11/01/16 09: 15; Admin Dose 1 APPLIC; Start 10/08/16 at 21:00 Collagenase (Santyl) 1 applic PRN PRN TOP WOUND CARE Last administered on 07:54; Admin Dose 1 APPLIC; Start 10/08/16 at 17:30 Lorazepam (Ativan) 2 mg Q2H PRN IV AGITATION Last administered on 10/30/16 03: 14; Admin Dose 2 MG; Start 10/16/16 at 16:00 Fentanyl (Duragesic 50 Mcg/Hr Patch) 1 patch Q72H TRANSDERM Last administered on 10/30/16 13:44; Admin Dose 1 PATCH; Start 10/21/16 at 11:30 Lorazepam (Ativan) 2 mg Q2H PRN PEG AGITATION Last administered on 10/25/16 18: 43; Admin Dose 2 MG; Start 10/25/16 at 15:00 Docusate Sodium (Colace Liquid Cup) 200 mg BID PEG Last administered on 21:24; Admin Dose 200 MG; Start 10/25/16 at 21:00; Stop 11/15/16 at 08:00 Famotidine (Pepcid) 20 mg DAILY PO Last administered on 11/01/16 09:15; Admin Dose 20 MG; Start 10/26/16 at 09:00 Polyethylene Glycol 17 gm 17 gm DAILY PRN GTB CONSTIPATION; Start 10/27/16 at 13 :30 Vancomycin HCl 1.5 gm/Sodium Chloride 250 ml @ 83.333 mls/ hr Q12H IVPB Last administered on 11/01/16 09:15; Admin Dose 83.333 MLS/HR; Start 10/29/16 at 20: 00 Meropenem 100 ml @ 200 mls/hr Q8 IVPB Last administered on 11/01/16 14:21; Admin Dose 200 MLS/HR; Start 10/30/16 at 14:00 Caspofungin/ Sodium Chloride (Cancidas/NS) 250 ml @ 250 mls/hr Q24H IVPB Last administered on 11/01/16 13:13; Admin Dose 250 MLS/HR; Start 10/31/16 at 13:00 Methadone HCl (Methadone) 10 mg Q6H PRN PO PAIN Last administered on 10/30/16 13:13; Admin Dose 10 MG; Start 10/30/16 at 12:00 Apixaban (Eliquis) 5 mg BID GTB Last administered on 11/01/16 09:16; Admin Dose 5 MG; Start 10/31/16 at 21:00 Zolpidem Tartrate (Ambien) 10 mg HS PRN PEG INSOMNIA Last administered on 03:11; Admin Dose 10 MG; Start 11/01/16 at 03:00 LAURA OJEDA NP Nov 01, 2016 19:47
[2016-11-02] VITALS (25 sets, daily range): BP systolic 118–161; BP diastolic 64–76; PULSE 50–79; RESP 13–21
[2016-11-02 06:20] LABS: BASOPHILS % 0.3 % (0.0-2.0); EOSINOPHILS # 0.8 10^3/ul (0.0-0.5); EOSINOPHILS % 8.7 % (0.0-7.0); HEMATOCRIT 31.2 % (42.0-52.0); HEMOGLOBIN 10.4 g/dl (14.0-18.0); LYMPHOCYTES # 0.9 10^3/ul (0.8-2.9); LYMPHOCYTES % 9.1 % (15.0-51.0); MEAN CORPUSCULAR HEMOGLOBIN 29.2 pg (29.0-33.0); MEAN CORPUSCULAR HGB CONC 33.3 g/dl (32.0-37.0); MEAN CORPUSCULAR VOLUME 87.7 fl (82.0-101.0); MEAN PLATELET VOLUME 9.2 fl (7.4-10.4); MONOCYTE # 0.9 10^3/ul (0.3-0.9); MONOCYTES % 9.6 % (0.0-11.0); NEUTROPHIL # 6.8 10^3/ul (1.6-7.5); NEUTROPHILS % 72.3 % (39.0-77.0); PLATELET COUNT 598 10^3/UL (140-440); RED BLOOD COUNT 3.56 10^6/ul (4.70-6.10); RED CELL DISTRIBUTION WIDTH 15.9 % (11.5-14.5); UNCORRECTED WBC 9.4 10^3/ul (4.8-10.8); WHITE BLOOD COUNT 9.4 10^3/ul (4.8-10.8)
[2016-11-02 06:21] LABS: CONDITION 1; LH ANALYZER COMMENTS 1
[2016-11-02 06:24] LABS: POTASSIUM 3.6 mmol/L (3.5-5.1)
[2016-11-02 06:27] LABS: CREATININE 0.51 mg/dl (0.61-1.24)
[2016-11-02 06:28] LABS: CALCIUM 8.7 mg/dl (8.4-10.2)
[2016-11-02] MEDS: MEROPENEM 1 GM/100 ML (PMX) 100 ML IVPB SCH ×3 (06:28→23:10)
[2016-11-02] MEDS: METOCLOPRAMIDE 10 MG INJ IV SCH ×2 (08:25→20:12)
[2016-11-02] MEDS: FAMOTIDINE 20 MG TAB PO SCH (08:25)
[2016-11-02] MEDS: APIXABAN 5 MG TABLET GTB SCH ×2 (08:25→20:13)
[2016-11-02] MEDS: DOCUSATE SODIUM 10 MG/ML (10ML CUP) PEG SCH ×2 (08:25→20:12)
[2016-11-02] MEDS: VANCOMYCIN 1.5 GM in SOD CHLORIDE 0.9% 250 ML IVPB SCH ×2 (08:25→20:10)
[2016-11-02] MEDS: COLLAGENASE 30 GM TUBE TOP SCH (08:28)
[2016-11-02] MEDS: NYSTATIN 30 GM POWDER BTL TOP SCH ×2 (08:30→20:13)
--- NOTE | 2016-11-02 10:38 | CONS ---
Date/Time of Note Date/Time of Note DATE: 11/02/16 TIME: 10:34 Assessment/Plan Assessment/Plan Additional Assessment/Plan Chest x-ray was reviewed from yesterday which is essentially clear. Current ventilator settings are SIMV of 10, tidal volume of 500, pressure support 10, PEEP of 5, 30% FiO2. Assessment and recommendations; next 1. Patient admitted with severe right-sided pneumonia status post VATS procedure and chest tube placement with subsequent removal of chest tube. Next 2. Status post tracheostomy and G-tube placement. Patient unable to be weaned off from ventilator due to severe drug withdrawal requiring high doses of sedation. 3. Likely recurrent sepsis, patient currently on appropriate antibiotic regimen with improving leukocytosis. 4. History of heavy drug abuse. 5. Underlying cardiomyopathy. 6. Hypertension. Continue current treatment. Consultation Date/Type/Reason Admit Date/Time Sep 15, 2016 at 16:54 Initial Consult Date 09/29/16 Type of Consultation: Pulmonary Referring Provider: JAN ZHANG 24 HR Interval Summary Free Text/Dictation Patient condition is markedly improved. He is completely awake and alert. Denies any shortness of breath, chest pain, abdominal pain, nausea vomiting. General examination; young male, on mechanical ventilation via tracheostomy awake and alert currently in no distress. Exam/Review of Systems Vital Signs Vitals Vital Signs Date Time Temp Pulse Resp B/P Pulse Ox O2 Delivery O2 Flow Rate FiO2 11/02/16 09:47 55 11/02/16 08:03 98.6 20 119/73 100 11/02/16 05:35 30 10/31/16 03:41 Mechanical Ventilator Intake and Output 11/01/16 11/01/16 11/02/16 15:00 23:00 07:00 Intake Total 856 ml 600 ml 1030 ml Output Total 450 ml 1000 ml 300 ml Balance 406 ml -400 ml 730 ml Exam HEENT examination; supple neck, no JVD. No lymphadenopathy. Tracheostomy in place with clean insertion site. Fair dentition. It was a midsize and reactive to light bilaterally. Extraocular movements are intact. Chest examination; clear to auscultation bilaterally. S1-S2 audible, no murmurs. Regular rhythm. Abdomen examination; soft, nontender. No organomegaly. G-tube in place. Bowel sounds audible. Extremity examination; no peripheral edema. 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 Results Result Diagram: 11/02/16 0520 11/02/16 0520 Results 24 hrs Laboratory Tests Test 11/02/16 05:20 Anion Gap 12 Basophils # 0.0 Basophils % 0.3 Blood Morphology Comment Blood Urea Nitrogen 10 Calcium Level 8.7 Carbon Dioxide Level 32 H Chloride Level 99 Creatinine 0.51 L Eosinophils # 0.8 H Eosinophils % 8.7 H Glucose Level 101 Hematocrit 31.2 L Hemoglobin 10.4 L Lymphocytes # 0.9 Lymphocytes % 9.1 L Magnesium Level 1.7 Mean Corpuscular Hemoglobin 29.2 Mean Corpuscular Hemoglobin Concent 33.3 Mean Corpuscular Volume 87.7 Mean Platelet Volume 9.2 Monocytes # 0.9 Monocytes % 9.6 Neutrophils # 6.8 Neutrophils % 72.3 Nucleated Red Blood Cells # 0.0 Nucleated Red Blood Cells % 0.0 Platelet Count 598 H Potassium Level 3.6 Red Blood Count 3.56 L Red Cell Distribution Width 15.9 H Sodium Level 139 White Blood Count 9.4 Medications Medications Current Medications Ondansetron HCl (Zofran Inj) 4 mg Q6H PRN IV NAUSEA AND/OR VOMITING; Start at 18:00 Morphine Sulfate (morphine) 2 mg Q4H PRN IV PAIN LEVEL 7-10 Last administered on 10/30/16 03:33; Admin Dose 2 MG; Start 09/15/16 at 18:00 Haloperidol (Haldol) 5 mg Q6H PRN IM AGITATION Last administered on 10/30/16 02:05; Admin Dose 5 MG; Start 09/18/16 at 11:30 Metoclopramide HCl (Reglan) 10 mg Q12 IV Last administered on 11/02/16 08:25; Admin Dose 10 MG; Start 09/24/16 at 11:30 Acetaminophen (Tylenol Liquid) 650 mg Q4H PRN NGT PAIN AND OR ELEVATED TEMP Last administered on 10/30/16 21:59; Admin Dose 650 MG; Start 09/28/16 at 13:30 Collagenase (Santyl) 1 applic DAILY TOP Last administered on 11/02/16 08:28; Admin Dose 1 APPLIC; Start 10/08/16 at 20:00 Nystatin (Nystatin Powder) 1 applic BID TOP Last administered on 11/02/16 08: 30; Admin Dose 1 APPLIC; Start 10/08/16 at 21:00 Collagenase (Santyl) 1 applic PRN PRN TOP WOUND CARE Last administered on 07:54; Admin Dose 1 APPLIC; Start 10/08/16 at 17:30 Lorazepam (Ativan) 2 mg Q2H PRN IV AGITATION Last administered on 10/30/16 03: 14; Admin Dose 2 MG; Start 10/16/16 at 16:00 Fentanyl (Duragesic 50 Mcg/Hr Patch) 1 patch Q72H TRANSDERM Last administered on 10/30/16 13:44; Admin Dose 1 PATCH; Start 10/21/16 at 11:30 Lorazepam (Ativan) 2 mg Q2H PRN PEG AGITATION Last administered on 10/25/16 18: 43; Admin Dose 2 MG; Start 10/25/16 at 15:00 Docusate Sodium (Colace Liquid Cup) 200 mg BID PEG Last administered on 08:25; Admin Dose 200 MG; Start 10/25/16 at 21:00; Stop 11/15/16 at 08:00 Famotidine (Pepcid) 20 mg DAILY PO Last administered on 11/02/16 08:25; Admin Dose 20 MG; Start 10/26/16 at 09:00 Polyethylene Glycol 17 gm 17 gm DAILY PRN GTB CONSTIPATION; Start 10/27/16 at 13 :30 Vancomycin HCl 1.5 gm/Sodium Chloride 250 ml @ 83.333 mls/ hr Q12H IVPB Last administered on 11/02/16 08:25; Admin Dose 83.333 MLS/HR; Start 10/29/16 at 20: 00 Meropenem 100 ml @ 200 mls/hr Q8 IVPB Last administered on 11/02/16 06:28; Admin Dose 200 MLS/HR; Start 10/30/16 at 14:00 Caspofungin/ Sodium Chloride (Cancidas/NS) 250 ml @ 250 mls/hr Q24H IVPB Last administered on 11/01/16 13:13; Admin Dose 250 MLS/HR; Start 10/31/16 at 13:00 Methadone HCl (Methadone) 10 mg Q6H PRN PO PAIN Last administered on 10/30/16 13:13; Admin Dose 10 MG; Start 10/30/16 at 12:00 Apixaban (Eliquis) 5 mg BID GTB Last administered on 11/02/16 08:25; Admin Dose 5 MG; Start 10/31/16 at 21:00 Zolpidem Tartrate (Ambien) 10 mg HS PRN PEG INSOMNIA Last administered on 20:43; Admin Dose 10 MG; Start 11/01/16 at 03:00 ILYA HILL Nov 02, 2016 10:38
[2016-11-02] MEDS: CASPOFUNGIN 50 MG in SOD CHLORIDE 0.9% 250 ML IVPB SCH (12:29)
[2016-11-02] MEDS: FENTAnyl PATCH 50 MCG/HR TRANSDERM SCH (12:48)
--- NOTE | 2016-11-02 13:40 | CONS ---
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 Would restart low -dose diuretics as blood pressure and renal function permits as well as low- dose lisinopril given severe cardiomyopathy. Supplement potassium to maintain about 4.0 and magnesium above 2.0. Consultation Date/Type/Reason Admit Date/Time Sep 15, 2016 at 16:54 Initial Consult Date 09/29/16 Type of Consultation: cv Referring Provider: JAN ZHANG 24 HR Interval Summary Free Text/Dictation Denies shortness of breath or chest pain Exam/Review of Systems Vital Signs Vitals Vital Signs Date Time Temp Pulse Resp B/P Pulse Ox O2 Delivery O2 Flow Rate FiO2 11/02/16 13:15 30 11/02/16 12:56 57 11/02/16 12:21 98.5 18 124/76 100 10/31/16 03:41 Mechanical Ventilator Intake and Output 11/01/16 11/01/16 11/02/16 15:00 23:00 07:00 Intake Total 856 ml 600 ml 1030 ml Output Total 450 ml 1000 ml 300 ml Balance 406 ml -400 ml 730 ml Exam Following commands Constitutional: alert, oriented Head: normocephalic Neck: other (Tracheostomy) Respiratory: other (Coarse breath sounds bilaterally, no wheezing) Cardiovascular: other (S1-S2 heard), regular rate and rhythm Gastrointestinal: bowel sounds, non-tender, soft Extremities: edema (Trace) Results Result Diagram: 11/02/16 0520 11/02/16 0520 Results 24 hrs Laboratory Tests Test 11/02/16 05:20 Anion Gap 12 Basophils # 0.0 Basophils % 0.3 Blood Morphology Comment Blood Urea Nitrogen 10 Calcium Level 8.7 Carbon Dioxide Level 32 H Chloride Level 99 Creatinine 0.51 L Eosinophils # 0.8 H Eosinophils % 8.7 H Glucose Level 101 Hematocrit 31.2 L Hemoglobin 10.4 L Lymphocytes # 0.9 Lymphocytes % 9.1 L Magnesium Level 1.7 Mean Corpuscular Hemoglobin 29.2 Mean Corpuscular Hemoglobin Concent 33.3 Mean Corpuscular Volume 87.7 Mean Platelet Volume 9.2 Monocytes # 0.9 Monocytes % 9.6 Neutrophils # 6.8 Neutrophils % 72.3 Nucleated Red Blood Cells # 0.0 Nucleated Red Blood Cells % 0.0 Platelet Count 598 H Potassium Level 3.6 Red Blood Count 3.56 L Red Cell Distribution Width 15.9 H Sodium Level 139 White Blood Count 9.4 Medications Medications Current Medications Ondansetron HCl (Zofran Inj) 4 mg Q6H PRN IV NAUSEA AND/OR VOMITING; Start at 18:00 Morphine Sulfate (morphine) 2 mg Q4H PRN IV PAIN LEVEL 7-10 Last administered on 10/30/16 03:33; Admin Dose 2 MG; Start 09/15/16 at 18:00 Haloperidol (Haldol) 5 mg Q6H PRN IM AGITATION Last administered on 10/30/16 02:05; Admin Dose 5 MG; Start 09/18/16 at 11:30 Metoclopramide HCl (Reglan) 10 mg Q12 IV Last administered on 11/02/16 08:25; Admin Dose 10 MG; Start 09/24/16 at 11:30 Acetaminophen (Tylenol Liquid) 650 mg Q4H PRN NGT PAIN AND OR ELEVATED TEMP Last administered on 10/30/16 21:59; Admin Dose 650 MG; Start 09/28/16 at 13:30 Collagenase (Santyl) 1 applic DAILY TOP Last administered on 11/02/16 08:28; Admin Dose 1 APPLIC; Start 10/08/16 at 20:00 Nystatin (Nystatin Powder) 1 applic BID TOP Last administered on 11/02/16 08: 30; Admin Dose 1 APPLIC; Start 10/08/16 at 21:00 Collagenase (Santyl) 1 applic PRN PRN TOP WOUND CARE Last administered on 07:54; Admin Dose 1 APPLIC; Start 10/08/16 at 17:30 Lorazepam (Ativan) 2 mg Q2H PRN IV AGITATION Last administered on 10/30/16 03: 14; Admin Dose 2 MG; Start 10/16/16 at 16:00 Fentanyl (Duragesic 50 Mcg/Hr Patch) 1 patch Q72H TRANSDERM Last administered on 11/02/16 12:48; Admin Dose 1 PATCH; Start 10/21/16 at 11:30 Lorazepam (Ativan) 2 mg Q2H PRN PEG AGITATION Last administered on 10/25/16 18: 43; Admin Dose 2 MG; Start 10/25/16 at 15:00 Docusate Sodium (Colace Liquid Cup) 200 mg BID PEG Last administered on 08:25; Admin Dose 200 MG; Start 10/25/16 at 21:00; Stop 11/15/16 at 08:00 Famotidine (Pepcid) 20 mg DAILY PO Last administered on 11/02/16 08:25; Admin Dose 20 MG; Start 10/26/16 at 09:00 Polyethylene Glycol 17 gm 17 gm DAILY PRN GTB CONSTIPATION; Start 10/27/16 at 13 :30 Vancomycin HCl 1.5 gm/Sodium Chloride 250 ml @ 83.333 mls/ hr Q12H IVPB Last administered on 11/02/16 08:25; Admin Dose 83.333 MLS/HR; Start 10/29/16 at 20: 00 Meropenem 100 ml @ 200 mls/hr Q8 IVPB Last administered on 11/02/16 06:28; Admin Dose 200 MLS/HR; Start 10/30/16 at 14:00 Caspofungin/ Sodium Chloride (Cancidas/NS) 250 ml @ 250 mls/hr Q24H IVPB Last administered on 11/02/16 12:29; Admin Dose 250 MLS/HR; Start 10/31/16 at 13:00 Methadone HCl (Methadone) 10 mg Q6H PRN PO PAIN Last administered on 10/30/16 13:13; Admin Dose 10 MG; Start 10/30/16 at 12:00 Apixaban (Eliquis) 5 mg BID GTB Last administered on 11/02/16 08:25; Admin Dose 5 MG; Start 10/31/16 at 21:00 Zolpidem Tartrate (Ambien) 10 mg HS PRN PEG INSOMNIA Last administered on 20:43; Admin Dose 10 MG; Start 11/01/16 at 03:00 Nikolay Luna DO Nov 02, 2016 13:40
[2016-11-02] MEDS ORDERED: POTASSIUM CHLORIDE 20 MEQ POWDER FOR ORAL SOLN PO ONE (14:00)
[2016-11-02] MEDS ORDERED: MAGNESIUM SULFATE 3 GM in SOD CHLORIDE 0.9% 100 ML IVPB ONE (14:30)
--- NOTE | 2016-11-02 15:06 | CONS ---
Date/Time of Note Date/Time of Note DATE: 11/02/16 TIME: 15:03 Assessment/Plan Assessment/Plan Chief Complaint/Hosp Course - Recurrent sepsis with early septic shock - responded to IVF and change of abx - skin ulcer under the trach, wound culture is growing CoNS and Enterococcus - Staph bacteremia d/t line sepsis; central line cath tip cx growing staph 10/30 - s/p sepsis, septic shock - s/p post-op fever - s/p pneumonia with parapneumonic effusion. Could be started as CAP, other considerations include aspiration PNA. - recurrent right pleural effusion. s/p diagnostic thoracentesis on 09/22/16. It showed glu=74 pro <2, [id number]. No malignancy on cytology. s/p repeat thoracentesis 10/01/16, no malignancy on cytology. 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) - s/p transaminitis, possibly shock liver, improved - s/p drug rash likely d/t pip/tazo, resolving - antimicrobial history: vanco (09/19/16-10/04/16, 10/08/16-10/10/16), azithromycin (10/02/16-10/06/16), pip/tazo (09/29/16-10/08/16), Tamiflu (10/02/16-), ashlyn (10/08-10/15/16) - negative results: rapid influenza screen, PPD, legionella antigen, mycoplasma pneumoniae, chlamydia pneumoniae serology, and respiratory viral panel; AFB smear (09/29, 09/30, 10/01, 10/08, 10/13) recommendations: - 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- hold off change in abx - F/u repeat blood cultures (negative to date), UA (negative), urine culture ( negative to date), respiratory culture (pending ->cancelled?), lactic acid (wnl) , procalcitonin (pending), CXR (negative)--reordered sputum - continue vancomycin (10/29/2016-) for staph bacteremia - continue meropenem and empiric caspofungin (10/30/2016-) - Pt has risk factors for invasive candidiasis (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, receipt of broad spectrum antibacterial agents) Problems: Consultation Date/Type/Reason Admit Date/Time Sep 15, 2016 at 16:54 Initial Consult Date 09/29/16 Type of Consultation: cv Referring Provider: JAN ZHANG Exam/Review of Systems Vital Signs Vitals Vital Signs Date Time Temp Pulse Resp B/P Pulse Ox O2 Delivery O2 Flow Rate FiO2 11/02/16 13:15 30 11/02/16 12:56 57 11/02/16 12:21 98.5 18 124/76 100 10/31/16 03:41 Mechanical Ventilator Intake and Output 11/01/16 11/01/16 11/02/16 15:00 23:00 07:00 Intake Total 856 ml 600 ml 1030 ml Output Total 450 ml 1000 ml 300 ml Balance 406 ml -400 ml 730 ml Exam Constitutional: alert, oriented, well developed Head: atraumatic, normocephalic Neck: non-tender, supple Respiratory: clear to auscultation Cardiovascular: nl pulses, regular rate and rhythm Gastrointestinal: nl liver, spleen, non-tender, soft Musculoskeletal: nl extremities to inspection, nl gait and stance Results Result Diagram: 11/02/16 0520 11/02/16 0520 Results 24 hrs Laboratory Tests Test 11/02/16 05:20 Anion Gap 12 Basophils # 0.0 Basophils % 0.3 Blood Morphology Comment Blood Urea Nitrogen 10 Calcium Level 8.7 Carbon Dioxide Level 32 H Chloride Level 99 Creatinine 0.51 L Eosinophils # 0.8 H Eosinophils % 8.7 H Glucose Level 101 Hematocrit 31.2 L Hemoglobin 10.4 L Lymphocytes # 0.9 Lymphocytes % 9.1 L Magnesium Level 1.7 Mean Corpuscular Hemoglobin 29.2 Mean Corpuscular Hemoglobin Concent 33.3 Mean Corpuscular Volume 87.7 Mean Platelet Volume 9.2 Monocytes # 0.9 Monocytes % 9.6 Neutrophils # 6.8 Neutrophils % 72.3 Nucleated Red Blood Cells # 0.0 Nucleated Red Blood Cells % 0.0 Platelet Count 598 H Potassium Level 3.6 Red Blood Count 3.56 L Red Cell Distribution Width 15.9 H Sodium Level 139 White Blood Count 9.4 Medications Medications Current Medications Ondansetron HCl (Zofran Inj) 4 mg Q6H PRN IV NAUSEA AND/OR VOMITING; Start at 18:00 Morphine Sulfate (morphine) 2 mg Q4H PRN IV PAIN LEVEL 7-10 Last administered on 10/30/16 03:33; Admin Dose 2 MG; Start 09/15/16 at 18:00 Haloperidol (Haldol) 5 mg Q6H PRN IM AGITATION Last administered on 10/30/16 02:05; Admin Dose 5 MG; Start 09/18/16 at 11:30 Metoclopramide HCl (Reglan) 10 mg Q12 IV Last administered on 11/02/16 08:25; Admin Dose 10 MG; Start 09/24/16 at 11:30 Acetaminophen (Tylenol Liquid) 650 mg Q4H PRN NGT PAIN AND OR ELEVATED TEMP Last administered on 10/30/16 21:59; Admin Dose 650 MG; Start 09/28/16 at 13:30 Collagenase (Santyl) 1 applic DAILY TOP Last administered on 11/02/16 08:28; Admin Dose 1 APPLIC; Start 10/08/16 at 20:00 Nystatin (Nystatin Powder) 1 applic BID TOP Last administered on 11/02/16 08: 30; Admin Dose 1 APPLIC; Start 10/08/16 at 21:00 Collagenase (Santyl) 1 applic PRN PRN TOP WOUND CARE Last administered on 07:54; Admin Dose 1 APPLIC; Start 10/08/16 at 17:30 Lorazepam (Ativan) 2 mg Q2H PRN IV AGITATION Last administered on 10/30/16 03: 14; Admin Dose 2 MG; Start 10/16/16 at 16:00 Fentanyl (Duragesic 50 Mcg/Hr Patch) 1 patch Q72H TRANSDERM Last administered on 11/02/16 12:48; Admin Dose 1 PATCH; Start 10/21/16 at 11:30 Lorazepam (Ativan) 2 mg Q2H PRN PEG AGITATION Last administered on 10/25/16 18: 43; Admin Dose 2 MG; Start 10/25/16 at 15:00 Docusate Sodium (Colace Liquid Cup) 200 mg BID PEG Last administered on 08:25; Admin Dose 200 MG; Start 10/25/16 at 21:00; Stop 11/15/16 at 08:00 Famotidine (Pepcid) 20 mg DAILY PO Last administered on 11/02/16 08:25; Admin Dose 20 MG; Start 10/26/16 at 09:00 Polyethylene Glycol 17 gm 17 gm DAILY PRN GTB CONSTIPATION; Start 10/27/16 at 13 :30 Vancomycin HCl 1.5 gm/Sodium Chloride 250 ml @ 83.333 mls/ hr Q12H IVPB Last administered on 11/02/16 08:25; Admin Dose 83.333 MLS/HR; Start 10/29/16 at 20: 00 Meropenem 100 ml @ 200 mls/hr Q8 IVPB Last administered on 11/02/16 14:10; Admin Dose 200 MLS/HR; Start 10/30/16 at 14:00 Caspofungin/ Sodium Chloride (Cancidas/NS) 250 ml @ 250 mls/hr Q24H IVPB Last administered on 11/02/16 12:29; Admin Dose 250 MLS/HR; Start 10/31/16 at 13:00 Methadone HCl (Methadone) 10 mg Q6H PRN PO PAIN Last administered on 10/30/16 13:13; Admin Dose 10 MG; Start 10/30/16 at 12:00 Apixaban (Eliquis) 5 mg BID GTB Last administered on 11/02/16 08:25; Admin Dose 5 MG; Start 10/31/16 at 21:00 Zolpidem Tartrate 10 mg 10 mg HS PRN PEG INSOMNIA Last administered on 20:43; Admin Dose 10 MG; Start 11/01/16 at 03:00 Magnesium Sulfate/ Sodium Chloride (Magnesium Sulfate/NS) 106 ml @ 35.333 mls/ hr ONCE ONCE IVPB ; Start 11/02/16 at 14:30; Stop 11/02/16 at 17:29 Furosemide (Lasix) 20 mg DAILY PO ; Start 11/03/16 at 09:00 Lisinopril (Zestril) 2.5 mg BID PO ; Start 11/02/16 at 21:00 DYLLAN PULIDO MD Nov 02, 2016 15:06
--- NOTE | 2016-11-02 15:10 | PN ---
Date/Time of Note Date/Time of Note DATE: 11/02/16 TIME: 15:09 Assessment/Plan Lines/Catheters IV Catheter Type (from Nrsg): Saline Lock Tang in Place (from Nrsg): No Assessment/Plan Chief Complaint/Hosp Course IMPRESSION 1. Pulmonary embolism. 2. Pneumonia. 3 Pleural effusion RECOMMENDATIONS: SP CT placement SP Trach will continue vent support trach care CT DCed CXR with no PTX Problems: Subjective 24 Hr Interval Summary Constitutional: improved Pain Control: mild Exam/Review of Systems Vital Signs Vitals Vital Signs Date Time Temp Pulse Resp B/P Pulse Ox O2 Delivery O2 Flow Rate FiO2 11/02/16 13:15 30 11/02/16 12:56 57 11/02/16 12:21 98.5 18 124/76 100 10/31/16 03:41 Mechanical Ventilator Intake and Output 11/01/16 11/01/16 11/02/16 15:00 23:00 07:00 Intake Total 856 ml 600 ml 1030 ml Output Total 450 ml 1000 ml 300 ml Balance 406 ml -400 ml 730 ml Exam Neck: non-tender, supple Respiratory: clear to auscultation, normal air movement Cardiovascular: nl pulses, regular rate and rhythm Gastrointestinal: nl liver, spleen, non-tender, soft Results Result Diagram: 11/02/16 0520 11/02/1620 YOUNG HAY MD Nov 02, 2016 15:10
--- NOTE | 2016-11-02 18:27 | PN ---
Date/Time of Note Date/Time of Note DATE: 11/02/16 TIME: 18:25 Assessment/Plan VTE Prophylaxis VTE Prophylaxis Intervention: other (Eliquis) Lines/Catheters IV Catheter Type (from [facility] Saline Lock Urinary Cath still in place: No Assessment/Plan Chief Complaint/Hosp Course ASSESSMENT AND PLAN: - Acute respiratory failure patient, failed extubation. Continue ventilator support, weaning per pulmonology. Dr. Simons is following the patient from pulmonology consultation. - Right-sided pneumonia with complicated parapneumonic effusion, status post thoracentesis, s/p R chest tube placement. s/p treatment with abx. - Acute pulmonary emboli. Continue patient on Lovenox. 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 Dr. Luna is following from cardiology standpoint. - Encephalopathy, likely toxic metabolic, resolving. Continue to monitor. - Sepsis secondary to #2, resolved. - Status post tracheostomy by Dr. Marino on 10/20. - Status post G-tube placement by Dr. Galarza on 10/20 Continue Pepcid for peptic ulcer disease prophylaxis. Further recommendations based on clinical course. Plan of care discussed with Dr. Patel. Problems: Subjective 24 Hr Interval Summary Free Text/Dictation Patient is awake alert, tolerates simv vent settings well. Exam/Review of Systems Vital Signs Vitals Vital Signs Date Time Temp Pulse Resp B/P Pulse Ox O2 Delivery O2 Flow Rate FiO2 11/02/16 17:17 68 15 99 30 11/02/16 15:46 98.5 123/74 10/31/16 03:41 Mechanical Ventilator Intake and Output 11/01/16 11/01/16 11/02/16 14:59 22:59 06:59 Intake Total 856 ml 600 ml 1030 ml Output Total 450 ml 1000 ml 300 ml Balance 406 ml -400 ml 730 ml Exam GENERAL: Well-developed, well-nourished male, tracheostomy to vent support, awake alert LUNGS: Diminished with scattered rhonchi bilaterally. HEART: Normal S1, S2. No murmurs, gallops, clicks, rubs noted. ABDOMEN: Round, soft, nondistended, nontender. Bowel sounds present. EXTREMITIES: No edema, clubbing, cyanosis. Pulses equal bilaterally 2+. SKIN: There is no rash. NEUROLOGIC: Awake alert Results Result Diagram: 11/02/16 0520 11/02/16 0520 Results 24 hrs Laboratory Tests Test 11/02/16 05:20 Anion Gap 12 Basophils # 0.0 Basophils % 0.3 Blood Morphology Comment Blood Urea Nitrogen 10 Calcium Level 8.7 Carbon Dioxide Level 32 H Chloride Level 99 Creatinine 0.51 L Eosinophils # 0.8 H Eosinophils % 8.7 H Glucose Level 101 Hematocrit 31.2 L Hemoglobin 10.4 L Lymphocytes # 0.9 Lymphocytes % 9.1 L Magnesium Level 1.7 Mean Corpuscular Hemoglobin 29.2 Mean Corpuscular Hemoglobin Concent 33.3 Mean Corpuscular Volume 87.7 Mean Platelet Volume 9.2 Monocytes # 0.9 Monocytes % 9.6 Neutrophils # 6.8 Neutrophils % 72.3 Nucleated Red Blood Cells # 0.0 Nucleated Red Blood Cells % 0.0 Platelet Count 598 H Potassium Level 3.6 Red Blood Count 3.56 L Red Cell Distribution Width 15.9 H Sodium Level 139 White Blood Count 9.4 Medications Medications Current Medications Ondansetron HCl (Zofran Inj) 4 mg Q6H PRN IV NAUSEA AND/OR VOMITING; Start at 18:00 Morphine Sulfate (morphine) 2 mg Q4H PRN IV PAIN LEVEL 7-10 Last administered on 10/30/16 03:33; Admin Dose 2 MG; Start 09/15/16 at 18:00 Haloperidol (Haldol) 5 mg Q6H PRN IM AGITATION Last administered on 10/30/16 02:05; Admin Dose 5 MG; Start 09/18/16 at 11:30 Metoclopramide HCl (Reglan) 10 mg Q12 IV Last administered on 11/02/16 08:25; Admin Dose 10 MG; Start 09/24/16 at 11:30 Acetaminophen (Tylenol Liquid) 650 mg Q4H PRN NGT PAIN AND OR ELEVATED TEMP Last administered on 10/30/16 21:59; Admin Dose 650 MG; Start 09/28/16 at 13:30 Collagenase (Santyl) 1 applic DAILY TOP Last administered on 11/02/16 08:28; Admin Dose 1 APPLIC; Start 10/08/16 at 20:00 Nystatin (Nystatin Powder) 1 applic BID TOP Last administered on 11/02/16 08: 30; Admin Dose 1 APPLIC; Start 10/08/16 at 21:00 Collagenase (Santyl) 1 applic PRN PRN TOP WOUND CARE Last administered on 07:54; Admin Dose 1 APPLIC; Start 10/08/16 at 17:30 Lorazepam (Ativan) 2 mg Q2H PRN IV AGITATION Last administered on 10/30/16 03: 14; Admin Dose 2 MG; Start 10/16/16 at 16:00 Fentanyl (Duragesic 50 Mcg/Hr Patch) 1 patch Q72H TRANSDERM Last administered on 11/02/16 12:48; Admin Dose 1 PATCH; Start 10/21/16 at 11:30 Lorazepam (Ativan) 2 mg Q2H PRN PEG AGITATION Last administered on 10/25/16 18: 43; Admin Dose 2 MG; Start 10/25/16 at 15:00 Docusate Sodium (Colace Liquid Cup) 200 mg BID PEG Last administered on 08:25; Admin Dose 200 MG; Start 10/25/16 at 21:00; Stop 11/15/16 at 08:00 Famotidine (Pepcid) 20 mg DAILY PO Last administered on 11/02/16 08:25; Admin Dose 20 MG; Start 10/26/16 at 09:00 Polyethylene Glycol 17 gm 17 gm DAILY PRN GTB CONSTIPATION; Start 10/27/16 at 13 :30 Vancomycin HCl 1.5 gm/Sodium Chloride 250 ml @ 83.333 mls/ hr Q12H IVPB Last administered on 11/02/16 08:25; Admin Dose 83.333 MLS/HR; Start 10/29/16 at 20: 00 Meropenem 100 ml @ 200 mls/hr Q8 IVPB Last administered on 11/02/16 14:10; Admin Dose 200 MLS/HR; Start 10/30/16 at 14:00 Caspofungin/ Sodium Chloride (Cancidas/NS) 250 ml @ 250 mls/hr Q24H IVPB Last administered on 11/02/16 12:29; Admin Dose 250 MLS/HR; Start 10/31/16 at 13:00 Methadone HCl (Methadone) 10 mg Q6H PRN PO PAIN Last administered on 10/30/16 13:13; Admin Dose 10 MG; Start 10/30/16 at 12:00 Apixaban (Eliquis) 5 mg BID GTB Last administered on 11/02/16 08:25; Admin Dose 5 MG; Start 10/31/16 at 21:00 Zolpidem Tartrate (Ambien) 10 mg HS PRN PEG INSOMNIA Last administered on 20:43; Admin Dose 10 MG; Start 11/01/16 at 03:00 Furosemide (Lasix) 20 mg DAILY PO ; Start 11/03/16 at 09:00 Lisinopril (Zestril) 2.5 mg BID PO ; Start 11/02/16 at 21:00 JAN ZHANG Nov 02, 2016 18:27
[2016-11-02] MEDS: LISINOPRIL 5 MG TAB PO SCH (20:12)
[2016-11-03] VITALS (22 sets, daily range): BP systolic 121–142; BP diastolic 68–87; PULSE 50–85; RESP 11–24
[2016-11-03] MEDS: LORAZEPAM 2 MG INJ IV PRN (04:21)
[2016-11-03] MEDS: MEROPENEM 1 GM/100 ML (PMX) 100 ML IVPB SCH ×3 (05:43→22:04)
[2016-11-03 06:50] LABS: BASOPHILS % 0.2 % (0.0-2.0); EOSINOPHILS % 11.6 % (0.0-7.0); HEMOGLOBIN 10.8 g/dl (14.0-18.0); LYMPHOCYTES # 1.3 10^3/ul (0.8-2.9); LYMPHOCYTES % 14.5 % (15.0-51.0); MEAN CORPUSCULAR HEMOGLOBIN 29.7 pg (29.0-33.0); MEAN CORPUSCULAR HGB CONC 33.6 g/dl (32.0-37.0); MEAN CORPUSCULAR VOLUME 88.6 fl (82.0-101.0); MEAN PLATELET VOLUME 9.3 fl (7.4-10.4); MONOCYTE # 1.1 10^3/ul (0.3-0.9); NEUTROPHIL # 5.4 10^3/ul (1.6-7.5); NEUTROPHILS % 61.7 % (39.0-77.0); RED BLOOD COUNT 3.61 10^6/ul (4.70-6.10); RED CELL DISTRIBUTION WIDTH 15.9 % (11.5-14.5); UNCORRECTED WBC 8.8 10^3/ul (4.8-10.8); WHITE BLOOD COUNT 8.8 10^3/ul (4.8-10.8)
[2016-11-03 06:51] LABS: POTASSIUM 3.5 mmol/L (3.5-5.1)
[2016-11-03 06:53] LABS: CREATININE 0.5 mg/dl (0.61-1.24)
[2016-11-03 06:54] LABS: CALCIUM 8.9 mg/dl (8.4-10.2)
[2016-11-03 07:15] LABS: CONDITION 1; LH ANALYZER COMMENTS 1
[2016-11-03 07:16] LABS: PLATELET COUNT 600 10^3/UL (140-440)
[2016-11-03] MEDS: VANCOMYCIN 1.5 GM in SOD CHLORIDE 0.9% 250 ML IVPB SCH ×2 (08:24→20:50)
[2016-11-03] MEDS: APIXABAN 5 MG TABLET GTB SCH ×2 (09:15→20:51)
[2016-11-03] MEDS: METOCLOPRAMIDE 10 MG INJ IV SCH ×2 (09:15→20:50)
[2016-11-03] MEDS: FAMOTIDINE 20 MG TAB PO SCH (09:15)
[2016-11-03] MEDS: DOCUSATE SODIUM 10 MG/ML (10ML CUP) PEG SCH ×2 (09:15→20:51)
[2016-11-03] MEDS: LISINOPRIL 5 MG TAB PO SCH ×2 (09:16→20:50)
[2016-11-03] MEDS: FUROSEMIDE 20 MG TAB PO SCH (09:16)
[2016-11-03] MEDS: COLLAGENASE 30 GM TUBE TOP SCH (09:18)
[2016-11-03] MEDS: NYSTATIN 30 GM POWDER BTL TOP SCH ×2 (09:18→20:51)
--- NOTE | 2016-11-03 12:18 | CONS ---
Date/Time of Note Date/Time of Note DATE: 11/03/16 TIME: 12:08 Assessment/Plan Assessment/Plan Chief Complaint/Hosp Course assessment/impression - Recurrent sepsis with early septic shock - responded to IVF and change of abx. Fever and leukocytosis resolved. 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 Could be started as CAP, other considerations include aspiration PNA. - recurrent right pleural effusion. s/p diagnostic thoracentesis on 09/22/16. It showed glu=74 pro <2, [id number]. No malignancy on cytology. s/p repeat thoracentesis 10/01/16, no malignancy on cytology. 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) - s/p transaminitis, possibly shock liver, improved - s/p drug rash likely d/t pip/tazo, resolving - antimicrobial history: vanco (09/19/16-10/04/16, 10/08/16-10/10/16), azithromycin (10/02/16-10/06/16), pip/tazo (09/29/16-10/08/16), Tamiflu (10/02/16-), ashlyn (10/08-10/15/16) - negative results: rapid influenza screen, PPD, legionella antigen, mycoplasma pneumoniae, chlamydia pneumoniae serology, and respiratory viral panel; AFB smear (09/29, 09/30, 10/01, 10/08, 10/13) recommendations: - 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 Osullivan Problems: Consultation Date/Type/Reason Admit Date/Time Sep 15, 2016 at 16:54 Initial Consult Date 09/29/16 Type of Consultation: Infectious Disease Referring Provider: JAN ZHANG Exam/Review of Systems Vital Signs Vitals Vital Signs Date Time Temp Pulse Resp B/P Pulse Ox O2 Delivery O2 Flow Rate FiO2 11/03/16 11:17 67 23 98 30 11/03/16 07:46 98.2 135/83 10/31/16 03:41 Mechanical Ventilator Intake and Output 11/02/16 11/02/16 11/03/16 15:00 23:00 07:00 Intake Total 1306 ml 1090 ml Output Total 1200 ml 600 ml Balance 106 ml 490 ml Exam Constitutional: alert, non-verbal (but able to mouth out words), oriented, well developed Psych: nl mood/affect, no complaints Head: atraumatic, normocephalic Neck: other (trach midline and intact), supple, No jvd Respiratory: clear to auscultation, normal air movement, R lower chest wall dressing c/d/i Cardiovascular: nl pulses, regular rate and rhythm Gastrointestinal: non-tender, soft Extremities: normal pulses, No clubbing, No cyanosis, No edema Neurological: other (interactive, follows simple commands, GUALLPA) Skin: nl turgor, other (left SCV dressing c/d/i) Results Result Diagram: 11/03/16 0548 11/03/16 0548 Results 24 hrs Laboratory Tests Test 11/03/16 05:48 Anion Gap 13 Basophils # 0.0 Basophils % 0.2 Blood Morphology Comment Blood Urea Nitrogen 10 Calcium Level 8.9 Carbon Dioxide Level 32 H Chloride Level 99 Creatinine 0.50 L Eosinophils # 1.0 H Eosinophils % 11.6 H Glucose Level 95 Hematocrit 32.0 L Hemoglobin 10.8 L Lymphocytes # 1.3 Lymphocytes % 14.5 L Mean Corpuscular Hemoglobin 29.7 Mean Corpuscular Hemoglobin Concent 33.6 Mean Corpuscular Volume 88.6 Mean Platelet Volume 9.3 Monocytes # 1.1 H Monocytes % 12.0 H Neutrophils # 5.4 Neutrophils % 61.7 Nucleated Red Blood Cells # 0.0 Nucleated Red Blood Cells % 0.0 Platelet Count 600 H Potassium Level 3.5 Red Blood Count 3.61 L Red Cell Distribution Width 15.9 H Sodium Level 140 White Blood Count 8.8 Medications Medications Current Medications Ondansetron HCl (Zofran Inj) 4 mg Q6H PRN IV NAUSEA AND/OR VOMITING; Start at 18:00 Morphine Sulfate (morphine) 2 mg Q4H PRN IV PAIN LEVEL 7-10 Last administered on 10/30/16 03:33; Admin Dose 2 MG; Start 09/15/16 at 18:00 Haloperidol (Haldol) 5 mg Q6H PRN IM AGITATION Last administered on 10/30/16 02:05; Admin Dose 5 MG; Start 09/18/16 at 11:30 Metoclopramide HCl (Reglan) 10 mg Q12 IV Last administered on 11/03/16 09:15; Admin Dose 10 MG; Start 09/24/16 at 11:30 Acetaminophen (Tylenol Liquid) 650 mg Q4H PRN NGT PAIN AND OR ELEVATED TEMP Last administered on 10/30/16 21:59; Admin Dose 650 MG; Start 09/28/16 at 13:30 Collagenase (Santyl) 1 applic DAILY TOP Last administered on 11/03/16 09:18; Admin Dose 1 APPLIC; Start 10/08/16 at 20:00 Nystatin (Nystatin Powder) 1 applic BID TOP Last administered on 11/03/16 09: 18; Admin Dose 1 APPLIC; Start 10/08/16 at 21:00 Collagenase (Santyl) 1 applic PRN PRN TOP WOUND CARE Last administered on 07:54; Admin Dose 1 APPLIC; Start 10/08/16 at 17:30 Lorazepam (Ativan) 2 mg Q2H PRN IV AGITATION Last administered on 11/03/16 04: 21; Admin Dose 2 MG; Start 10/16/16 at 16:00 Fentanyl (Duragesic 50 Mcg/Hr Patch) 1 patch Q72H TRANSDERM Last administered on 11/02/16 12:48; Admin Dose 1 PATCH; Start 10/21/16 at 11:30 Lorazepam (Ativan) 2 mg Q2H PRN PEG AGITATION Last administered on 10/25/16 18: 43; Admin Dose 2 MG; Start 10/25/16 at 15:00 Docusate Sodium (Colace Liquid Cup) 200 mg BID PEG Last administered on 09:15; Admin Dose 200 MG; Start 10/25/16 at 21:00; Stop 11/15/16 at 08:00 Famotidine (Pepcid) 20 mg DAILY PO Last administered on 11/03/16 09:15; Admin Dose 20 MG; Start 10/26/16 at 09:00 Polyethylene Glycol 17 gm 17 gm DAILY PRN GTB CONSTIPATION; Start 10/27/16 at 13 :30 Vancomycin HCl 1.5 gm/Sodium Chloride 250 ml @ 83.333 mls/ hr Q12H IVPB Last administered on 11/03/16 08:24; Admin Dose 83.333 MLS/HR; Start 10/29/16 at 20: 00 Meropenem 100 ml @ 200 mls/hr Q8 IVPB Last administered on 11/03/16 05:43; Admin Dose 200 MLS/HR; Start 10/30/16 at 14:00 Caspofungin/ Sodium Chloride (Cancidas/NS) 250 ml @ 250 mls/hr Q24H IVPB Last administered on 11/02/16 12:29; Admin Dose 250 MLS/HR; Start 10/31/16 at 13:00 Methadone HCl (Methadone) 10 mg Q6H PRN PO PAIN Last administered on 10/30/16 13:13; Admin Dose 10 MG; Start 10/30/16 at 12:00 Apixaban (Eliquis) 5 mg BID GTB Last administered on 11/03/16 09:15; Admin Dose 5 MG; Start 10/31/16 at 21:00 Zolpidem Tartrate (Ambien) 10 mg HS PRN PEG INSOMNIA Last administered on 20:43; Admin Dose 10 MG; Start 11/01/16 at 03:00 Furosemide (Lasix) 20 mg DAILY PO Last administered on 11/03/16 09:16; Admin Dose 20 MG; Start 11/03/16 at 09:00 Lisinopril (Zestril) 2.5 mg BID PO Last administered on 11/03/16t 09:16; Admin Dose 2.5 MG; Start 11/02/16 at 21:00 Procedures Procedures CXR 10/30/16: 1. No evidence for active cardiopulmonary disease. 2. Support devices in stable position. 3. Right lower lobe atelectasis. LAURA OJEDA [employer] BRICK Nov 03, 2016 12:18
--- NOTE | 2016-11-03 12:44 | CONS ---
Date/Time of Note Date/Time of Note DATE: 11/03/16 TIME: 12:36 Assessment/Plan Assessment/Plan Additional Assessment/Plan Assessment and Recommendations; 1. Patient admitted several weeks ago for severe right-sided pneumonia status post VATS procedure requiring a tracheostomy and G-tube because of severe drug withdrawal. 2. Recurrence of sepsis and pneumonia with marked overall clinical improvement now. 3. Hypertension. 4. Cardiomyopathy. Continue current treatment. Consultation Date/Type/Reason Admit Date/Time Sep 15, 2016 at 16:54 Initial Consult Date 09/29/16 Type of Consultation: Pulmonary Referring Provider: JAN ZHANG 24 HR Interval Summary Free Text/Dictation Patient condition stable. He is awake, alert denies any shortness of breath, chest pain, fever or chills. General examination; young male, on ventilator via tracheostomy currently in no distress. Exam/Review of Systems Vital Signs Vitals Vital Signs Date Time Temp Pulse Resp B/P Pulse Ox O2 Delivery O2 Flow Rate FiO2 11/03/16 11:17 67 23 98 30 11/03/16 11:00 98.5 128/72 10/31/16 03:41 Mechanical Ventilator Intake and Output 11/02/16 11/02/16 11/03/16 15:00 23:00 07:00 Intake Total 1306 ml 1090 ml Output Total 1200 ml 600 ml Balance 106 ml 490 ml Exam H EENT examination; supple neck, no JVD. No lymphadenopathy. Tracheostomy in place with clean insertion site. Pupils are midsize and reactive to light. Extraocular movements are intact. Pharynx is clear with good dentition. Chest examination; clear to auscultation bilaterally. No added sounds. S1-S2 audible, no murmurs. Regular rhythm. Abdomen examination; soft, nontender, no organomegaly. G-tube in place. With clean insertion site. Bowel sounds audible. Extremity examination; no peripheral edema. Pulses 2+ bilaterally. [employer] examination; no focal deficit. Current ventilator settings; SIMV of 10, tidal volume 500, pressure support 10, PEEP of 5, 30% FiO2. Results Result Diagram: 11/03/16 0548 11/03/16 0548 Results 24 hrs Laboratory Tests Test 11/03/16 05:48 Anion Gap 13 Basophils # 0.0 Basophils % 0.2 Blood Morphology Comment Blood Urea Nitrogen 10 Calcium Level 8.9 Carbon Dioxide Level 32 H Chloride Level 99 Creatinine 0.50 L Eosinophils # 1.0 H Eosinophils % 11.6 H Glucose Level 95 Hematocrit 32.0 L Hemoglobin 10.8 L Lymphocytes # 1.3 Lymphocytes % 14.5 L Mean Corpuscular Hemoglobin 29.7 Mean Corpuscular Hemoglobin Concent 33.6 Mean Corpuscular Volume 88.6 Mean Platelet Volume 9.3 Monocytes # 1.1 H Monocytes % 12.0 H Neutrophils # 5.4 Neutrophils % 61.7 Nucleated Red Blood Cells # 0.0 Nucleated Red Blood Cells % 0.0 Platelet Count 600 H Potassium Level 3.5 Red Blood Count 3.61 L Red Cell Distribution Width 15.9 H Sodium Level 140 White Blood Count 8.8 Medications Medications Current Medications Ondansetron HCl (Zofran Inj) 4 mg Q6H PRN IV NAUSEA AND/OR VOMITING; Start at 18:00 Morphine Sulfate (morphine) 2 mg Q4H PRN IV PAIN LEVEL 7-10 Last administered on 10/30/16 03:33; Admin Dose 2 MG; Start 09/15/16 at 18:00 Haloperidol (Haldol) 5 mg Q6H PRN IM AGITATION Last administered on 10/30/16 02:05; Admin Dose 5 MG; Start 09/18/16 at 11:30 Metoclopramide HCl (Reglan) 10 mg Q12 IV Last administered on 11/03/16 09:15; Admin Dose 10 MG; Start 09/24/16 at 11:30 Acetaminophen (Tylenol Liquid) 650 mg Q4H PRN NGT PAIN AND OR ELEVATED TEMP Last administered on 10/30/16 21:59; Admin Dose 650 MG; Start 09/28/16 at 13:30 Collagenase (Santyl) 1 applic DAILY TOP Last administered on 11/03/16 09:18; Admin Dose 1 APPLIC; Start 10/08/16 at 20:00 Nystatin (Nystatin Powder) 1 applic BID TOP Last administered on 11/03/16 09: 18; Admin Dose 1 APPLIC; Start 10/08/16 at 21:00 Collagenase (Santyl) 1 applic PRN PRN TOP WOUND CARE Last administered on 07:54; Admin Dose 1 APPLIC; Start 10/08/16 at 17:30 Lorazepam (Ativan) 2 mg Q2H PRN IV AGITATION Last administered on 11/03/16 04: 21; Admin Dose 2 MG; Start 10/16/16 at 16:00 Fentanyl (Duragesic 50 Mcg/Hr Patch) 1 patch Q72H TRANSDERM Last administered on 11/02/16 12:48; Admin Dose 1 PATCH; Start 10/21/16 at 11:30 Lorazepam (Ativan) 2 mg Q2H PRN PEG AGITATION Last administered on 10/25/16 18: 43; Admin Dose 2 MG; Start 10/25/16 at 15:00 Docusate Sodium (Colace Liquid Cup) 200 mg BID PEG Last administered on 09:15; Admin Dose 200 MG; Start 10/25/16 at 21:00; Stop 11/15/16 at 08:00 Famotidine (Pepcid) 20 mg DAILY PO Last administered on 11/03/16 09:15; Admin Dose 20 MG; Start 10/26/16 at 09:00 Polyethylene Glycol 17 gm 17 gm DAILY PRN GTB CONSTIPATION; Start 10/27/16 at 13 :30 Vancomycin HCl 1.5 gm/Sodium Chloride 250 ml @ 83.333 mls/ hr Q12H IVPB Last administered on 11/03/16 08:24; Admin Dose 83.333 MLS/HR; Start 10/29/16 at 20: 00 Meropenem 100 ml @ 200 mls/hr Q8 IVPB Last administered on 11/03/16 05:43; Admin Dose 200 MLS/HR; Start 10/30/16 at 14:00 Caspofungin/ Sodium Chloride (Cancidas/NS) 250 ml @ 250 mls/hr Q24H IVPB Last administered on 11/02/16 12:29; Admin Dose 250 MLS/HR; Start 10/31/16 at 13:00 Methadone HCl (Methadone) 10 mg Q6H PRN PO PAIN Last administered on 10/30/16 13:13; Admin Dose 10 MG; Start 10/30/16 at 12:00 Apixaban (Eliquis) 5 mg BID GTB Last administered on 11/03/16 09:15; Admin Dose 5 MG; Start 10/31/16 at 21:00 Zolpidem Tartrate (Ambien) 10 mg HS PRN PEG INSOMNIA Last administered on 20:43; Admin Dose 10 MG; Start 11/01/16 at 03:00 Furosemide (Lasix) 20 mg DAILY PO Last administered on 11/03/16 09:16; Admin Dose 20 MG; Start 11/03/16 at 09:00 Lisinopril (Zestril) 2.5 mg BID PO Last administered on 11/03/16 09:16; Admin Dose 2.5 MG; Start 11/02/16 at 21:00 ILYA HILL Nov 03, 2016 12:44
[2016-11-03] MEDS: CASPOFUNGIN 50 MG in SOD CHLORIDE 0.9% 250 ML IVPB SCH (13:26)
--- NOTE | 2016-11-03 13:48 | CONS ---
Date/Time of Note Date/Time of Note DATE: 11/03/16 TIME: 13:46 Assessment/Plan Assessment/Plan Additional Assessment/Plan Respiratory failure Sepsis Pulmonary emboli Acute decompensated systolic congestive heart failure Severe biventricular cardiomyopathy with left ventricular ejection fraction 20% Pleural effusion -Blood pressure trend overall improved, continue HILDA inhibitor and titrate up his renal function and blood pressure permits, continue diuretics Consultation Date/Type/Reason Admit Date/Time Sep 15, 2016 at 16:54 Initial Consult Date 09/29/16 Type of Consultation: cv Referring Provider: JAN ZHANG 24 HR Interval Summary Free Text/Dictation Patient seen and examined Exam/Review of Systems Vital Signs Vitals Vital Signs Date Time Temp Pulse Resp B/P Pulse Ox O2 Delivery O2 Flow Rate FiO2 11/03/16 13:31 68 22 97 30 11/03/16 11:00 98.5 128/72 10/31/16 03:41 Mechanical Ventilator Intake and Output 11/02/16 11/02/16 11/03/16 15:00 23:00 07:00 Intake Total 1306 ml 1090 ml Output Total 1200 ml 600 ml Balance 106 ml 490 ml Exam Sleeping, no apparent distress Head: normocephalic Neck: other (Tracheostomy) Respiratory: other (Coarse breath sounds bilaterally, no wheezing) Cardiovascular: other (S1-S2 heard), regular rate and rhythm Gastrointestinal: bowel sounds, non-tender, other (No guarding), soft Extremities: other (No edema) Results Result Diagram: 11/03/16 0548 11/03/16 0548 Results 24 hrs Laboratory Tests Test 11/03/16 05:48 Anion Gap 13 Basophils # 0.0 Basophils % 0.2 Blood Morphology Comment Blood Urea Nitrogen 10 Calcium Level 8.9 Carbon Dioxide Level 32 H Chloride Level 99 Creatinine 0.50 L Eosinophils # 1.0 H Eosinophils % 11.6 H Glucose Level 95 Hematocrit 32.0 L Hemoglobin 10.8 L Lymphocytes # 1.3 Lymphocytes % 14.5 L Mean Corpuscular Hemoglobin 29.7 Mean Corpuscular Hemoglobin Concent 33.6 Mean Corpuscular Volume 88.6 Mean Platelet Volume 9.3 Monocytes # 1.1 H Monocytes % 12.0 H Neutrophils # 5.4 Neutrophils % 61.7 Nucleated Red Blood Cells # 0.0 Nucleated Red Blood Cells % 0.0 Platelet Count 600 H Potassium Level 3.5 Red Blood Count 3.61 L Red Cell Distribution Width 15.9 H Sodium Level 140 White Blood Count 8.8 Medications Medications Current Medications Ondansetron HCl (Zofran Inj) 4 mg Q6H PRN IV NAUSEA AND/OR VOMITING; Start at 18:00 Morphine Sulfate (morphine) 2 mg Q4H PRN IV PAIN LEVEL 7-10 Last administered on 10/30/16 03:33; Admin Dose 2 MG; Start 09/15/16 at 18:00 Haloperidol (Haldol) 5 mg Q6H PRN IM AGITATION Last administered on 10/30/16 02:05; Admin Dose 5 MG; Start 09/18/16 at 11:30 Metoclopramide HCl (Reglan) 10 mg Q12 IV Last administered on 11/03/16 09:15; Admin Dose 10 MG; Start 09/24/16 at 11:30 Acetaminophen (Tylenol Liquid) 650 mg Q4H PRN NGT PAIN AND OR ELEVATED TEMP Last administered on 10/30/16 21:59; Admin Dose 650 MG; Start 09/28/16 at 13:30 Collagenase (Santyl) 1 applic DAILY TOP Last administered on 11/03/16 09:18; Admin Dose 1 APPLIC; Start 10/08/16 at 20:00 Nystatin (Nystatin Powder) 1 applic BID TOP Last administered on 11/03/16 09: 18; Admin Dose 1 APPLIC; Start 10/08/16 at 21:00 Collagenase (Santyl) 1 applic PRN PRN TOP WOUND CARE Last administered on 07:54; Admin Dose 1 APPLIC; Start 10/08/16 at 17:30 Lorazepam (Ativan) 2 mg Q2H PRN IV AGITATION Last administered on 11/03/16 04: 21; Admin Dose 2 MG; Start 10/16/16 at 16:00 Fentanyl (Duragesic 50 Mcg/Hr Patch) 1 patch Q72H TRANSDERM Last administered on 11/02/16 12:48; Admin Dose 1 PATCH; Start 10/21/16 at 11:30 Lorazepam (Ativan) 2 mg Q2H PRN PEG AGITATION Last administered on 10/25/16 18: 43; Admin Dose 2 MG; Start 10/25/16 at 15:00 Docusate Sodium (Colace Liquid Cup) 200 mg BID PEG Last administered on 09:15; Admin Dose 200 MG; Start 10/25/16 at 21:00; Stop 11/15/16 at 08:00 Famotidine (Pepcid) 20 mg DAILY PO Last administered on 11/03/16 09:15; Admin Dose 20 MG; Start 10/26/16 at 09:00 Polyethylene Glycol 17 gm 17 gm DAILY PRN GTB CONSTIPATION; Start 10/27/16 at 13 :30 Vancomycin HCl 1.5 gm/Sodium Chloride 250 ml @ 83.333 mls/ hr Q12H IVPB Last administered on 11/03/16 08:24; Admin Dose 83.333 MLS/HR; Start 10/29/16 at 20: 00 Meropenem 100 ml @ 200 mls/hr Q8 IVPB Last administered on 11/03/16 05:43; Admin Dose 200 MLS/HR; Start 10/30/16 at 14:00 Caspofungin/ Sodium Chloride (Cancidas/NS) 250 ml @ 250 mls/hr Q24H IVPB Last administered on 11/03/16 13:26; Admin Dose 250 MLS/HR; Start 10/31/16 at 13:00 Methadone HCl (Methadone) 10 mg Q6H PRN PO PAIN Last administered on 10/30/16 13:13; Admin Dose 10 MG; Start 10/30/16 at 12:00 Apixaban (Eliquis) 5 mg BID GTB Last administered on 11/03/16 09:15; Admin Dose 5 MG; Start 10/31/16 at 21:00 Zolpidem Tartrate (Ambien) 10 mg HS PRN PEG INSOMNIA Last administered on 20:43; Admin Dose 10 MG; Start 11/01/16 at 03:00 Furosemide (Lasix) 20 mg DAILY PO Last administered on 11/03/16 09:16; Admin Dose 20 MG; Start 11/03/16 at 09:00 Lisinopril (Zestril) 2.5 mg BID PO Last administered on 11/03/16 09:16; Admin Dose 2.5 MG; Start 11/02/16 at 21:00 Miscellaneous Information (*Rx Drug Level Order Reminder*) 1 ONCE ONCE XX ; Start 11/03/16 at 19:00; Stop 11/03/16 at 19:01 Nikolay Luna DO Nov 03, 2016 13:48
--- NOTE | 2016-11-03 17:06 | PN ---
Date/Time of Note Date/Time of Note DATE: 11/03/16 TIME: 17:05 Assessment/Plan VTE Prophylaxis VTE Prophylaxis Intervention: SCD's Lines/Catheters IV [facility] Type (from [facility] PICC Line Central line still needed: Yes Urinary Cath still in place: No Assessment/Plan Chief Complaint/Hosp Course ASSESSMENT AND PLAN: - Acute respiratory failure patient, failed extubation. Continue ventilator support, weaning per pulmonology. Dr. Simons is following the patient from pulmonology consultation. - Right-sided pneumonia with complicated parapneumonic effusion, status post thoracentesis, s/p R chest tube placement. s/p treatment with abx. - Acute pulmonary emboli. Continue patient on Lovenox. 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 Dr. Luna is following from cardiology standpoint. - Encephalopathy, likely toxic metabolic, resolving. Continue to monitor. - Sepsis secondary to #2, resolved. - Status post tracheostomy by Dr. Marino on 10/20. - Status post G-tube placement by Dr. Galarza on 10/20 Continue Pepcid for peptic ulcer disease prophylaxis. Further recommendations based on clinical course. Plan of care discussed with Dr. Patel. Problems: Exam/Review of Systems Vital Signs Vitals Vital Signs Date Time Temp Pulse Resp B/P Pulse Ox O2 Delivery O2 Flow Rate FiO2 11/03/16 15:48 98.7 76 20 142/87 99 11/03/16 15:33 30 10/31/16 03:41 Mechanical Ventilator Intake and Output 11/02/16 11/02/16 11/03/16 15:00 23:00 07:00 Intake Total 1306 ml 1090 ml Output Total 1200 ml 600 ml Balance 106 ml 490 ml Exam GENERAL: Well-developed, well-nourished male, tracheostomy to vent support, awake alert LUNGS: Diminished with scattered rhonchi bilaterally. HEART: Normal S1, S2. No murmurs, gallops, clicks, rubs noted. ABDOMEN: Round, soft, nondistended, nontender. Bowel sounds present. EXTREMITIES: No edema, clubbing, cyanosis. Pulses equal bilaterally 2+. SKIN: There is no rash. NEUROLOGIC: Awake alert Results Result Diagram: 11/03/16 0548 11/03/16 0548 Results 24 hrs Laboratory Tests Test 11/03/16 05:48 Anion Gap 13 Basophils # 0.0 Basophils % 0.2 Blood Morphology Comment Blood Urea Nitrogen 10 Calcium Level 8.9 Carbon Dioxide Level 32 H Chloride Level 99 Creatinine 0.50 L Eosinophils # 1.0 H Eosinophils % 11.6 H Glucose Level 95 Hematocrit 32.0 L Hemoglobin 10.8 L Lymphocytes # 1.3 Lymphocytes % 14.5 L Mean Corpuscular Hemoglobin 29.7 Mean Corpuscular Hemoglobin Concent 33.6 Mean Corpuscular Volume 88.6 Mean Platelet Volume 9.3 Monocytes # 1.1 H Monocytes % 12.0 H Neutrophils # 5.4 Neutrophils % 61.7 Nucleated Red Blood Cells # 0.0 Nucleated Red Blood Cells % 0.0 Platelet Count 600 H Potassium Level 3.5 Red Blood Count 3.61 L Red Cell Distribution Width 15.9 H Sodium Level 140 White Blood Count 8.8 Medications Medications Current Medications Ondansetron HCl (Zofran Inj) 4 mg Q6H PRN IV NAUSEA AND/OR VOMITING; Start at 18:00 Morphine Sulfate (morphine) 2 mg Q4H PRN IV PAIN LEVEL 7-10 Last administered on 10/30/16 03:33; Admin Dose 2 MG; Start 09/15/16 at 18:00 Haloperidol (Haldol) 5 mg Q6H PRN IM AGITATION Last administered on 10/30/16 02:05; Admin Dose 5 MG; Start 09/18/16 at 11:30 Metoclopramide HCl (Reglan) 10 mg Q12 IV Last administered on 11/03/16 09:15; Admin Dose 10 MG; Start 09/24/16 at 11:30 Acetaminophen (Tylenol Liquid) 650 mg Q4H PRN NGT PAIN AND OR ELEVATED TEMP Last administered on 10/30/16 21:59; Admin Dose 650 MG; Start 09/28/16 at 13:30 Collagenase (Santyl) 1 applic DAILY TOP Last administered on 11/03/16 09:18; Admin Dose 1 APPLIC; Start 10/08/16 at 20:00 Nystatin (Nystatin Powder) 1 applic BID TOP Last administered on 11/03/16 09: 18; Admin Dose 1 APPLIC; Start 10/08/16 at 21:00 Collagenase (Santyl) 1 applic PRN PRN TOP WOUND CARE Last administered on 07:54; Admin Dose 1 APPLIC; Start 10/08/16 at 17:30 Lorazepam (Ativan) 2 mg Q2H PRN IV AGITATION Last administered on 11/03/16 04: 21; Admin Dose 2 MG; Start 10/16/16 at 16:00 Fentanyl (Duragesic 50 Mcg/Hr Patch) 1 patch Q72H TRANSDERM Last administered on 11/02/16 12:48; Admin Dose 1 PATCH; Start 10/21/16 at 11:30 Lorazepam (Ativan) 2 mg Q2H PRN PEG AGITATION Last administered on 10/25/16 18: 43; Admin Dose 2 MG; Start 10/25/16 at 15:00 Docusate Sodium (Colace Liquid Cup) 200 mg BID PEG Last administered on 09:15; Admin Dose 200 MG; Start 10/25/16 at 21:00; Stop 11/15/16 at 08:00 Famotidine (Pepcid) 20 mg DAILY PO Last administered on 11/03/16 09:15; Admin Dose 20 MG; Start 10/26/16 at 09:00 Polyethylene Glycol 17 gm 17 gm DAILY PRN GTB CONSTIPATION; Start 10/27/16 at 13 :30 Vancomycin HCl 1.5 gm/Sodium Chloride 250 ml @ 83.333 mls/ hr Q12H IVPB Last administered on 11/03/16 08:24; Admin Dose 83.333 MLS/HR; Start 10/29/16 at 20: 00 Meropenem 100 ml @ 200 mls/hr Q8 IVPB Last administered on 11/03/16 14:50; Admin Dose 200 MLS/HR; Start 10/30/16 at 14:00 Caspofungin/ Sodium Chloride (Cancidas/NS) 250 ml @ 250 mls/hr Q24H IVPB Last administered on 11/03/16 13:26; Admin Dose 250 MLS/HR; Start 10/31/16 at 13:00 Methadone HCl (Methadone) 10 mg Q6H PRN PO PAIN Last administered on 10/30/16 13:13; Admin Dose 10 MG; Start 10/30/16 at 12:00 Apixaban (Eliquis) 5 mg BID GTB Last administered on 11/03/16 09:15; Admin Dose 5 MG; Start 10/31/16 at 21:00 Zolpidem Tartrate (Ambien) 10 mg HS PRN PEG INSOMNIA Last administered on 20:43; Admin Dose 10 MG; Start 11/01/16 at 03:00 Furosemide (Lasix) 20 mg DAILY PO Last administered on 11/03/16 09:16; Admin Dose 20 MG; Start 11/03/16 at 09:00 Lisinopril (Zestril) 2.5 mg BID PO Last administered on 11/03/16 09:16; Admin Dose 2.5 MG; Start 11/02/16 at 21:00 Miscellaneous Information (*Rx Drug Level Order Reminder*) 1 ONCE ONCE XX ; Start 11/03/16 at 19:00; Stop 11/03/16 at 19:01 JAN ZHANG Nov 03, 2016 17:06
--- NOTE | 2016-11-03 18:24 | PN ---
Date/Time of Note Date/Time of Note DATE: 11/03/16 TIME: 18:24 Assessment/Plan Lines/Catheters IV Catheter Type (from Nrsg): PICC Line Tang in Place (from Nrsg): No Assessment/Plan Chief Complaint/Hosp Course IMPRESSION 1. Pulmonary embolism. 2. Pneumonia. 3 Pleural effusion RECOMMENDATIONS: SP CT placement SP Trach will continue vent support trach care CT DCed CXR with no PTX Problems: Subjective 24 Hr Interval Summary Constitutional: improved Pain Control: mild Exam/Review of Systems Vital Signs Vitals Vital Signs Date Time Temp Pulse Resp B/P Pulse Ox O2 Delivery O2 Flow Rate FiO2 11/03/16 17:45 73 11/03/16 17:45 22 97 30 11/03/16 15:48 98.7 142/87 10/31/16 03:41 Mechanical Ventilator Intake and Output 11/02/16 11/02/16 11/03/16 15:00 23:00 07:00 Intake Total 1306 ml 1090 ml Output Total 1200 ml 600 ml Balance 106 ml 490 ml Exam Respiratory: clear to auscultation, normal air movement Cardiovascular: nl pulses, regular rate and rhythm Gastrointestinal: nl liver, spleen, non-tender, soft Results Result Diagram: 11/03/16 0548 11/03/16 0548 MALEYOUNG DHALIWAL MD Nov 03, 2016 18:24
[2016-11-04] VITALS (24 sets, daily range): BP systolic 115–128; BP diastolic 70–84; PULSE 53–58; RESP 12–19
[2016-11-04] MEDS: MEROPENEM 1 GM/100 ML (PMX) 100 ML IVPB SCH ×3 (06:08→23:20)
[2016-11-04] MEDS: DOCUSATE SODIUM 10 MG/ML (10ML CUP) PEG SCH ×2 (08:58→20:51)
[2016-11-04] MEDS: FAMOTIDINE 20 MG TAB PO SCH (08:58)
[2016-11-04] MEDS: NYSTATIN 30 GM POWDER BTL TOP SCH ×2 (08:59→20:52)
[2016-11-04] MEDS: FUROSEMIDE 20 MG TAB PO SCH (08:59)
[2016-11-04] MEDS: LISINOPRIL 5 MG TAB PO SCH ×2 (08:59→20:51)
[2016-11-04] MEDS: APIXABAN 5 MG TABLET GTB SCH ×2 (09:00→20:51)
[2016-11-04] MEDS: VANCOMYCIN 1.5 GM in SOD CHLORIDE 0.9% 250 ML IVPB SCH ×2 (09:00→20:50)
[2016-11-04] MEDS: COLLAGENASE 30 GM TUBE TOP SCH (09:00)
[2016-11-04] MEDS: METOCLOPRAMIDE 10 MG INJ IV SCH ×2 (09:01→20:51)
--- NOTE | 2016-11-04 12:14 | CONS ---
Date/Time of Note Date/Time of Note DATE: 11/04/16 TIME: 12:13 Assessment/Plan Assessment/Plan Chief Complaint/Hosp Course Problems: Additional Assessment/Plan - Recurrent sepsis with early septic shock - responded to IVF and change of abx. Fever and leukocytosis resolved. 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 Could be started as CAP, other considerations include aspiration PNA. - recurrent right pleural effusion. s/p diagnostic thoracentesis on 09/22/16. It showed glu=74 pro <2, HTM=9714. No malignancy on cytology. s/p repeat thoracentesis 10/01/16, no malignancy on cytology. 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) - s/p transaminitis, possibly shock liver, improved - s/p drug rash likely d/t pip/tazo, resolving - antimicrobial history: vanco (09/19/16-10/04/16, 10/08/16-10/10/16), azithromycin (10/02/16-10/06/16), pip/tazo (09/29/16-10/08/16), Tamiflu (10/02/16-), ashlyn (10/08-10/15/16) - negative results: rapid influenza screen, PPD, legionella antigen, mycoplasma pneumoniae, chlamydia pneumoniae serology, and respiratory viral panel; AFB smear (09/29, 09/30, 10/01, 10/08, 10/13) recommendations: - 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- hold off change in abx - F/u repeat blood cultures (negative to date), sputum culture (reordered- pending), lactic acid (wnl), procalcitonin (<0.10), CXR (negative) - continue vancomycin (10/29/2016-) for staph bacteremia - continue meropenem and empiric caspofungin (10/30/2016-) - Pt has risk factors for invasive candidiasis (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, receipt of broad spectrum antibacterial agents) - management d/w Pt's RN Consultation Date/Type/Reason Admit Date/Time Sep 15, 2016 at 16:54 Initial Consult Date 09/29/16 Type of Consultation: id Referring Provider: JAN ZHANG Exam/Review of Systems Vital Signs Vitals Vital Signs Date Time Temp Pulse Resp B/P Pulse Ox O2 Delivery O2 Flow Rate FiO2 11/04/16 11:40 58 12 97 30 11/04/16 11:22 98.2 118/78 Intake and Output 11/03/16 11/03/16 11/04/16 15:00 23:00 07:00 Intake Total 700 ml 950 ml Output Total 500 ml 700 ml 1200 ml Balance -500 ml 0 ml -250 ml Exam Constitutional: alert, oriented, well developed Psych: nl mood/affect, no complaints Head: atraumatic, normocephalic ENMT: nl external ears & nose, nl lips & teeth, nl nasal mucosa & septum Respiratory: clear to auscultation, normal air movement Cardiovascular: nl pulses, regular rate and rhythm Gastrointestinal: nl liver, spleen, non-tender, soft Results Result Diagram: 11/03/16 0548 11/03/16 0548 Results 24 hrs Laboratory Tests Test 11/03/16 18:50 Vancomycin Level Trough 15.8 Medications Medications Current Medications Ondansetron HCl (Zofran Inj) 4 mg Q6H PRN IV NAUSEA AND/OR VOMITING; Start at 18:00 Morphine Sulfate (morphine) 2 mg Q4H PRN IV PAIN LEVEL 7-10 Last administered on 10/30/16 03:33; Admin Dose 2 MG; Start 09/15/16 at 18:00 Haloperidol (Haldol) 5 mg Q6H PRN IM AGITATION Last administered on 10/30/16 02:05; Admin Dose 5 MG; Start 09/18/16 at 11:30 Metoclopramide HCl (Reglan) 10 mg Q12 IV Last administered on 11/04/16 09:01; Admin Dose 10 MG; Start 09/24/16 at 11:30 Acetaminophen (Tylenol Liquid) 650 mg Q4H PRN NGT PAIN AND OR ELEVATED TEMP Last administered on 10/30/16 21:59; Admin Dose 650 MG; Start 09/28/16 at 13:30 Collagenase (Santyl) 1 applic DAILY TOP Last administered on 11/04/16 09:00; Admin Dose 1 APPLIC; Start 10/08/16 at 20:00 Nystatin (Nystatin Powder) 1 applic BID TOP Last administered on 11/04/16 08: 59; Admin Dose 1 APPLIC; Start 10/08/16 at 21:00 Collagenase (Santyl) 1 applic PRN PRN TOP WOUND CARE Last administered on 07:54; Admin Dose 1 APPLIC; Start 10/08/16 at 17:30 Lorazepam (Ativan) 2 mg Q2H PRN IV AGITATION Last administered on 11/03/16 04: 21; Admin Dose 2 MG; Start 10/16/16 at 16:00 Fentanyl (Duragesic 50 Mcg/Hr Patch) 1 patch Q72H TRANSDERM Last administered on 11/02/16 12:48; Admin Dose 1 PATCH; Start 10/21/16 at 11:30 Lorazepam (Ativan) 2 mg Q2H PRN PEG AGITATION Last administered on 10/25/16 18: 43; Admin Dose 2 MG; Start 10/25/16 at 15:00 Docusate Sodium (Colace Liquid Cup) 200 mg BID PEG Last administered on 08:58; Admin Dose 200 MG; Start 10/25/16 at 21:00; Stop 11/15/16 at 08:00 Famotidine (Pepcid) 20 mg DAILY PO Last administered on 11/04/16 08:58; Admin Dose 20 MG; Start 10/26/16 at 09:00 Polyethylene Glycol 17 gm 17 gm DAILY PRN GTB CONSTIPATION; Start 10/27/16 at 13 :30 Vancomycin HCl 1.5 gm/Sodium Chloride 250 ml @ 83.333 mls/ hr Q12H IVPB Last administered on 11/04/16 09:00; Admin Dose 83.333 MLS/HR; Start 10/29/16 at 20: 00 Meropenem 100 ml @ 200 mls/hr Q8 IVPB Last administered on 11/04/16 06:08; Admin Dose 200 MLS/HR; Start 10/30/16 at 14:00 Caspofungin/ Sodium Chloride (Cancidas/NS) 250 ml @ 250 mls/hr Q24H IVPB Last administered on 11/03/16 13:26; Admin Dose 250 MLS/HR; Start 10/31/16 at 13:00 Methadone HCl (Methadone) 10 mg Q6H PRN PO PAIN Last administered on 10/30/16 13:13; Admin Dose 10 MG; Start 10/30/16 at 12:00 Apixaban (Eliquis) 5 mg BID GTB Last administered on 11/04/16 09:00; Admin Dose 5 MG; Start 10/31/16 at 21:00 Zolpidem Tartrate (Ambien) 10 mg HS PRN PEG INSOMNIA Last administered on 20:43; Admin Dose 10 MG; Start 11/01/16 at 03:00 Furosemide (Lasix) 20 mg DAILY PO Last administered on 11/04/16 08:59; Admin Dose 20 MG; Start 11/03/16 at 09:00 Lisinopril (Zestril) 2.5 mg BID PO Last administered on 11/04/16 08:59; Admin Dose 2.5 MG; Start 11/02/16 at 21:00 DYLLAN PULIDO MD Nov 04, 2016 12:14
[2016-11-04] MEDS: CASPOFUNGIN 50 MG in SOD CHLORIDE 0.9% 250 ML IVPB SCH (12:31)
--- NOTE | 2016-11-04 13:09 | CONS ---
Date/Time of Note Date/Time of Note DATE: 11/04/16 TIME: 13:06 Assessment/Plan Assessment/Plan Additional Assessment/Plan Assessment recommendations; 1. Patient admitted with severe right-sided pneumonia leading to respiratory failure requiring a VATS procedure. Chest tube has now been removed a few days ago. 2. History of severe drug abuse patient unable to be weaned off from ventilator due to ongoing sedation requirements. 3. Hypertension. 4. Cardio myopathy. 5. Patient status post tracheostomy and G-tube placement. Continue current supportive care. Awaiting transfer to nursing facility. Consultation Date/Type/Reason Admit Date/Time Sep 15, 2016 at 16:54 Initial Consult Date 09/29/16 Type of Consultation: Pulmonary Referring Provider: JAN ZHANG 24 HR Interval Summary Free Text/Dictation Patient condition remains stable. Still ventilator dependent owing to persistent requirement for as needed sedation because of hypoventilation precluding weaning from mechanical ventilation. General examination; middle-aged man, currently in no distress. On ventilator via tracheostomy. Exam/Review of Systems Vital Signs Vitals Vital Signs Date Time Temp Pulse Resp B/P Pulse Ox O2 Delivery O2 Flow Rate FiO2 11/04/16 12:19 58 11/04/16 11:40 12 97 30 11/04/16 11:22 98.2 118/78 Intake and Output 11/03/16 11/03/16 11/04/16 15:00 23:00 07:00 Intake Total 700 ml 950 ml Output Total 500 ml 700 ml 1200 ml Balance -500 ml 0 ml -250 ml Exam H EENT examination; supple neck, no lymphadenopathy. Tracheostomy in place with clean insertion site. Pupils are midsize and reactive to light. No neck masses. No thyromegaly. No neck bruits. Next Chest examination; clear to auscultation bilaterally. S1-S2 audible, no murmurs. Regular rhythm. Next Abdomen examination; soft, G-tube in place. No organomegaly. Bowel sounds audible. Nontender. Next Extremity examination; no peripheral edema. Pulses 2+ bilaterally. CHIEF RADIOLOGIC TECHNOLOGIST examination; no focal deficit. Current ventilator settings; SIMV of 10 , tidal volume of 500, PEEP of 5, pressure support 10, 30% FiO2. Results Result Diagram: 11/03/16 0548 11/03/16 0548 Results 24 hrs Laboratory Tests Test 11/03/16 18:50 Vancomycin Level Trough 15.8 Medications Medications Current Medications Ondansetron HCl (Zofran Inj) 4 mg Q6H PRN IV NAUSEA AND/OR VOMITING; Start at 18:00 Morphine Sulfate (morphine) 2 mg Q4H PRN IV PAIN LEVEL 7-10 Last administered on 10/30/16 03:33; Admin Dose 2 MG; Start 09/15/16 at 18:00 Haloperidol (Haldol) 5 mg Q6H PRN IM AGITATION Last administered on 10/30/16 02:05; Admin Dose 5 MG; Start 09/18/16 at 11:30 Metoclopramide HCl (Reglan) 10 mg Q12 IV Last administered on 11/04/16 09:01; Admin Dose 10 MG; Start 09/24/16 at 11:30 Acetaminophen (Tylenol Liquid) 650 mg Q4H PRN NGT PAIN AND OR ELEVATED TEMP Last administered on 10/30/16 21:59; Admin Dose 650 MG; Start 09/28/16 at 13:30 Collagenase (Santyl) 1 applic DAILY TOP Last administered on 11/04/16 09:00; Admin Dose 1 APPLIC; Start 10/08/16 at 20:00 Nystatin (Nystatin Powder) 1 applic BID TOP Last administered on 11/04/16 08: 59; Admin Dose 1 APPLIC; Start 10/08/16 at 21:00 Collagenase (Santyl) 1 applic PRN PRN TOP WOUND CARE Last administered on 07:54; Admin Dose 1 APPLIC; Start 10/08/16 at 17:30 Lorazepam (Ativan) 2 mg Q2H PRN IV AGITATION Last administered on 11/03/16 04: 21; Admin Dose 2 MG; Start 10/16/16 at 16:00 Fentanyl (Duragesic 50 Mcg/Hr Patch) 1 patch Q72H TRANSDERM Last administered on 11/02/16 12:48; Admin Dose 1 PATCH; Start 10/21/16 at 11:30 Lorazepam (Ativan) 2 mg Q2H PRN PEG AGITATION Last administered on 10/25/16 18: 43; Admin Dose 2 MG; Start 10/25/16 at 15:00 Docusate Sodium (Colace Liquid Cup) 200 mg BID PEG Last administered on 08:58; Admin Dose 200 MG; Start 10/25/16 at 21:00; Stop 11/15/16 at 08:00 Famotidine (Pepcid) 20 mg DAILY PO Last administered on 11/04/16 08:58; Admin Dose 20 MG; Start 10/26/16 at 09:00 Polyethylene Glycol 17 gm 17 gm DAILY PRN GTB CONSTIPATION; Start 10/27/16 at 13 :30 Vancomycin HCl 1.5 gm/Sodium Chloride 250 ml @ 83.333 mls/ hr Q12H IVPB Last administered on 11/04/16 09:00; Admin Dose 83.333 MLS/HR; Start 10/29/16 at 20: 00 Meropenem 100 ml @ 200 mls/hr Q8 IVPB Last administered on 11/04/16 06:08; Admin Dose 200 MLS/HR; Start 10/30/16 at 14:00 Caspofungin/ Sodium Chloride (Cancidas/NS) 250 ml @ 250 mls/hr Q24H IVPB Last administered on 11/04/16 12:31; Admin Dose 250 MLS/HR; Start 10/31/16 at 13:00 Methadone HCl (Methadone) 10 mg Q6H PRN PO PAIN Last administered on 10/30/16 13:13; Admin Dose 10 MG; Start 10/30/16 at 12:00 Apixaban (Eliquis) 5 mg BID GTB Last administered on 11/04/16 09:00; Admin Dose 5 MG; Start 10/31/16 at 21:00 Zolpidem Tartrate (Ambien) 10 mg HS PRN PEG INSOMNIA Last administered on 20:43; Admin Dose 10 MG; Start 11/01/16 at 03:00 Furosemide (Lasix) 20 mg DAILY PO Last administered on 11/04/16 08:59; Admin Dose 20 MG; Start 11/03/16 at 09:00 Lisinopril (Zestril) 2.5 mg BID PO Last administered on 11/04/16 08:59; Admin Dose 2.5 MG; Start 11/02/16 at 21:00 ILYA HILL Nov 04, 2016 13:09
--- NOTE | 2016-11-04 13:23 | PN ---
Date/Time of Note Date/Time of Note DATE: 11/04/16 TIME: 13:19 Assessment/Plan VTE Prophylaxis VTE Prophylaxis Intervention: SCD's Lines/Catheters Urinary Cath still in place: No Assessment/Plan Chief Complaint/Hosp Course ASSESSMENT AND PLAN: - Acute respiratory failure patient, failed extubation. Continue ventilator support, weaning per pulmonology. Dr. Simons is following the patient from pulmonology consultation. - Right-sided pneumonia with complicated parapneumonic effusion, status post thoracentesis, s/p R chest tube placement and and subsequent removal of chest tube, s/p treatment with abx. - Acute pulmonary emboli. Continue patient on Lovenox. 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 Dr. Luna is following from cardiology standpoint. - Encephalopathy, likely toxic metabolic, resolving. Continue to monitor. - Sepsis secondary to #2, resolved. - Status post tracheostomy by Dr. Marino on 10/20. - Status post G-tube placement by Dr. Galarza on 10/20 Continue Pepcid for peptic ulcer disease prophylaxis. Further recommendations based on clinical course. Plan of care discussed with Dr. Patel. Problems: Subjective 24 Hr Interval Summary Free Text/Dictation Patient remains afebrile, was able to transfer chair from bedside to chair with physical therapy, continues on ventilator support via tracheostomy. Exam/Review of Systems Vital Signs Vitals Vital Signs Date Time Temp Pulse Resp B/P Pulse Ox O2 Delivery O2 Flow Rate FiO2 11/04/16 12:19 58 11/04/16 11:40 12 97 30 11/04/16 11:22 98.2 118/78 Intake and Output 11/03/16 11/03/16 11/04/16 15:00 23:00 07:00 Intake Total 700 ml 950 ml Output Total 500 ml 700 ml 1200 ml Balance -500 ml 0 ml -250 ml Exam GENERAL: Well-developed, well-nourished male, tracheostomy to vent support, awake alert LUNGS: clear. HEART: Normal S1, S2. No murmurs, gallops, clicks, rubs noted. ABDOMEN: Round, soft, nondistended, nontender. Bowel sounds present. EXTREMITIES: No edema, clubbing, cyanosis. Pulses equal bilaterally 2+. SKIN: There is no rash. NEUROLOGIC: Awake alert Results Result Diagram: 11/03/1648 11/03/1648 Results 24 hrs Laboratory Tests Test 11/03/16 18:50 Vancomycin Level Trough 15.8 Medications Medications Current Medications Ondansetron HCl (Zofran Inj) 4 mg Q6H PRN IV NAUSEA AND/OR VOMITING; Start at 18:00 Morphine Sulfate (morphine) 2 mg Q4H PRN IV PAIN LEVEL 7-10 Last administered on 10/30/16 03:33; Admin Dose 2 MG; Start 09/15/16 at 18:00 Haloperidol (Haldol) 5 mg Q6H PRN IM AGITATION Last administered on 10/30/16 02:05; Admin Dose 5 MG; Start 09/18/16 at 11:30 Metoclopramide HCl (Reglan) 10 mg Q12 IV Last administered on 11/04/16 09:01; Admin Dose 10 MG; Start 09/24/16 at 11:30 Acetaminophen (Tylenol Liquid) 650 mg Q4H PRN NGT PAIN AND OR ELEVATED TEMP Last administered on 10/30/16 21:59; Admin Dose 650 MG; Start 09/28/16 at 13:30 Collagenase (Santyl) 1 applic DAILY TOP Last administered on 11/04/16 09:00; Admin Dose 1 APPLIC; Start 10/08/16 at 20:00 Nystatin (Nystatin Powder) 1 applic BID TOP Last administered on 11/04/16 08: 59; Admin Dose 1 APPLIC; Start 10/08/16 at 21:00 Collagenase (Santyl) 1 applic PRN PRN TOP WOUND CARE Last administered on 07:54; Admin Dose 1 APPLIC; Start 10/08/16 at 17:30 Lorazepam (Ativan) 2 mg Q2H PRN IV AGITATION Last administered on 11/03/16 04: 21; Admin Dose 2 MG; Start 10/16/16 at 16:00 Fentanyl (Duragesic 50 Mcg/Hr Patch) 1 patch Q72H TRANSDERM Last administered on 11/02/16 12:48; Admin Dose 1 PATCH; Start 10/21/16 at 11:30 Lorazepam (Ativan) 2 mg Q2H PRN PEG AGITATION Last administered on 10/25/16 18: 43; Admin Dose 2 MG; Start 10/25/16 at 15:00 Docusate Sodium (Colace Liquid Cup) 200 mg BID PEG Last administered on 08:58; Admin Dose 200 MG; Start 10/25/16 at 21:00; Stop 11/15/16 at 08:00 Famotidine (Pepcid) 20 mg DAILY PO Last administered on 11/04/16 08:58; Admin Dose 20 MG; Start 10/26/16 at 09:00 Polyethylene Glycol 17 gm 17 gm DAILY PRN GTB CONSTIPATION; Start 10/27/16 at 13 :30 Vancomycin HCl 1.5 gm/Sodium Chloride 250 ml @ 83.333 mls/ hr Q12H IVPB Last administered on 11/04/16 09:00; Admin Dose 83.333 MLS/HR; Start 10/29/16 at 20: 00 Meropenem 100 ml @ 200 mls/hr Q8 IVPB Last administered on 11/04/16 06:08; Admin Dose 200 MLS/HR; Start 10/30/16 at 14:00 Caspofungin/ Sodium Chloride (Cancidas/NS) 250 ml @ 250 mls/hr Q24H IVPB Last administered on 11/04/16 12:31; Admin Dose 250 MLS/HR; Start 10/31/16 at 13:00 Methadone HCl (Methadone) 10 mg Q6H PRN PO PAIN Last administered on 10/30/16 13:13; Admin Dose 10 MG; Start 10/30/16 at 12:00 Apixaban (Eliquis) 5 mg BID GTB Last administered on 11/04/16 09:00; Admin Dose 5 MG; Start 10/31/16 at 21:00 Zolpidem Tartrate (Ambien) 10 mg HS PRN PEG INSOMNIA Last administered on 20:43; Admin Dose 10 MG; Start 11/01/16 at 03:00 Furosemide (Lasix) 20 mg DAILY PO Last administered on 11/04/16 08:59; Admin Dose 20 MG; Start 11/03/16 at 09:00 Lisinopril (Zestril) 2.5 mg BID PO Last administered on 11/04/16 08:59; Admin Dose 2.5 MG; Start 11/02/16 at 21:00 JAN ZHANG Nov 04, 2016 13:23
--- NOTE | 2016-11-04 14:20 | CONS ---
Date/Time of Note Date/Time of Note DATE: 11/04/16 TIME: 14:18 Assessment/Plan Assessment/Plan Additional Assessment/Plan Respiratory failure Sepsis Pulmonary emboli Acute decompensated systolic congestive heart failure Severe biventricular cardiomyopathy with left ventricular ejection fraction 20% Pleural effusion -Blood pressure trend improving, would increase dose of lisinopril as blood pressure and renal function permits. Continue maintenance diuretics. Continue anticoagulation given pulmonary emboli. Consultation Date/Type/Reason Admit Date/Time Sep 15, 2016 at 16:54 Initial Consult Date 09/29/16 Type of Consultation: cv Referring Provider: JAN ZHANG 24 HR Interval Summary Free Text/Dictation Patient denies shortness of breath, dizziness. Undergoing physical therapy Exam/Review of Systems Vital Signs Vitals Vital Signs Date Time Temp Pulse Resp B/P Pulse Ox O2 Delivery O2 Flow Rate FiO2 11/04/16 12:19 58 11/04/16 11:40 12 97 30 11/04/16 11:22 98.2 118/78 Intake and Output 11/03/16 11/03/16 11/04/16 15:00 23:00 07:00 Intake Total 700 ml 950 ml Output Total 500 ml 700 ml 1200 ml Balance -500 ml 0 ml -250 ml Exam No apparent distress Constitutional: alert, oriented Head: normocephalic Neck: other (Tracheostomy), supple Respiratory: other (Coarse breath sounds bilaterally, no wheezing) Cardiovascular: other (S1-S2 heard), regular rate and rhythm Gastrointestinal: bowel sounds, non-tender, soft Extremities: other (No edema) Results Result Diagram: 11/03/16 0548 11/03/16 0548 Results 24 hrs Laboratory Tests Test 11/03/16 18:50 Vancomycin Level Trough 15.8 Medications Medications Current Medications Ondansetron HCl (Zofran Inj) 4 mg Q6H PRN IV NAUSEA AND/OR VOMITING; Start at 18:00 Morphine Sulfate (morphine) 2 mg Q4H PRN IV PAIN LEVEL 7-10 Last administered on 10/30/16 03:33; Admin Dose 2 MG; Start 09/15/16 at 18:00 Haloperidol (Haldol) 5 mg Q6H PRN IM AGITATION Last administered on 10/30/16 02:05; Admin Dose 5 MG; Start 09/18/16 at 11:30 Metoclopramide HCl (Reglan) 10 mg Q12 IV Last administered on 11/04/16 09:01; Admin Dose 10 MG; Start 09/24/16 at 11:30 Acetaminophen (Tylenol Liquid) 650 mg Q4H PRN NGT PAIN AND OR ELEVATED TEMP Last administered on 10/30/16 21:59; Admin Dose 650 MG; Start 09/28/16 at 13:30 Collagenase (Santyl) 1 applic DAILY TOP Last administered on 11/04/16 09:00; Admin Dose 1 APPLIC; Start 10/08/16 at 20:00 Nystatin (Nystatin Powder) 1 applic BID TOP Last administered on 11/04/16 08: 59; Admin Dose 1 APPLIC; Start 10/08/16 at 21:00 Collagenase (Santyl) 1 applic PRN PRN TOP WOUND CARE Last administered on 07:54; Admin Dose 1 APPLIC; Start 10/08/16 at 17:30 Lorazepam (Ativan) 2 mg Q2H PRN IV AGITATION Last administered on 11/03/16 04: 21; Admin Dose 2 MG; Start 10/16/16 at 16:00 Fentanyl (Duragesic 50 Mcg/Hr Patch) 1 patch Q72H TRANSDERM Last administered on 11/02/16 12:48; Admin Dose 1 PATCH; Start 10/21/16 at 11:30 Lorazepam (Ativan) 2 mg Q2H PRN PEG AGITATION Last administered on 10/25/16 18: 43; Admin Dose 2 MG; Start 10/25/16 at 15:00 Docusate Sodium (Colace Liquid Cup) 200 mg BID PEG Last administered on 08:58; Admin Dose 200 MG; Start 10/25/16 at 21:00; Stop 11/15/16 at 08:00 Famotidine (Pepcid) 20 mg DAILY PO Last administered on 11/04/16 08:58; Admin Dose 20 MG; Start 10/26/16 at 09:00 Polyethylene Glycol 17 gm 17 gm DAILY PRN GTB CONSTIPATION; Start 10/27/16 at 13 :30 Vancomycin HCl 1.5 gm/Sodium Chloride 250 ml @ 83.333 mls/ hr Q12H IVPB Last administered on 11/04/16 09:00; Admin Dose 83.333 MLS/HR; Start 10/29/16 at 20: 00 Meropenem 100 ml @ 200 mls/hr Q8 IVPB Last administered on 11/04/16 14:04; Admin Dose 200 MLS/HR; Start 10/30/16 at 14:00 Caspofungin/ Sodium Chloride (Cancidas/NS) 250 ml @ 250 mls/hr Q24H IVPB Last administered on 11/04/16 12:31; Admin Dose 250 MLS/HR; Start 10/31/16 at 13:00 Methadone HCl (Methadone) 10 mg Q6H PRN PO PAIN Last administered on 10/30/16 13:13; Admin Dose 10 MG; Start 10/30/16 at 12:00 Apixaban (Eliquis) 5 mg BID GTB Last administered on 11/04/16 09:00; Admin Dose 5 MG; Start 10/31/16 at 21:00 Zolpidem Tartrate (Ambien) 10 mg HS PRN PEG INSOMNIA Last administered on 20:43; Admin Dose 10 MG; Start 11/01/16 at 03:00 Furosemide (Lasix) 20 mg DAILY PO Last administered on 11/04/16 08:59; Admin Dose 20 MG; Start 11/03/16 at 09:00 Lisinopril (Zestril) 2.5 mg BID PO Last administered on 11/04/16 08:59; Admin Dose 2.5 MG; Start 11/02/16 at 21:00 Nikolay Luna DO Nov 04, 2016 14:20
--- NOTE | 2016-11-04 19:21 | PN ---
Date/Time of Note Date/Time of Note DATE: 11/04/16 TIME: 19:20 Assessment/Plan Lines/Catheters Tang in Place (from [facility]): No Assessment/Plan Chief Complaint/Hosp Course IMPRESSION 1. Pulmonary embolism. 2. Pneumonia. 3 Pleural effusion RECOMMENDATIONS: SP CT placement SP Trach will continue vent support trach care CT DCed CXR with no PTX Problems: Subjective 24 Hr Interval Summary Constitutional: improved Pain Control: mild Exam/Review of Systems Vital Signs Vitals Vital Signs Date Time Temp Pulse Resp B/P Pulse Ox O2 Delivery O2 Flow Rate FiO2 11/04/16 17:55 57 12 98 30 11/04/16 16:04 98.6 121/73 Intake and Output 11/03/16 11/03/16 11/04/16 15:00 23:00 07:00 Intake Total 700 ml 950 ml Output Total 500 ml 700 ml 1200 ml Balance -500 ml 0 ml -250 ml Exam ENMT: mucosa pink and moist, nl external ears & nose, nl lips & teeth, nl nasal mucosa & septum Neck: non-tender, supple Respiratory: clear to auscultation, normal air movement Cardiovascular: nl pulses, regular rate and rhythm Results Result Diagram: 11/03/16 0548 11/03/16 0548 YOUNG HAY MD Nov 04, 2016 19:21
[2016-11-05] VITALS (23 sets, daily range): BP systolic 115–139; BP diastolic 68–84; PULSE 54–73; RESP 13–28
[2016-11-05] MEDS: LORAZEPAM 2 MG INJ IV PRN ×4 (00:36→20:28)
[2016-11-05] MEDS: MEROPENEM 1 GM/100 ML (PMX) 100 ML IVPB SCH ×3 (06:15→22:30)
[2016-11-05 07:33] LABS: BASOPHILS % 0.4 % (0.0-2.0); EOSINOPHILS # 0.4 10^3/ul (0.0-0.5); EOSINOPHILS % 4.1 % (0.0-7.0); HEMATOCRIT 34.5 % (42.0-52.0); HEMOGLOBIN 11.3 g/dl (14.0-18.0); LYMPHOCYTES # 1.4 10^3/ul (0.8-2.9); LYMPHOCYTES % 14.7 % (15.0-51.0); MEAN CORPUSCULAR HEMOGLOBIN 28.5 pg (29.0-33.0); MEAN CORPUSCULAR HGB CONC 32.8 g/dl (32.0-37.0); MEAN PLATELET VOLUME 8.9 fl (7.4-10.4); MONOCYTE # 1.1 10^3/ul (0.3-0.9); MONOCYTES % 11.3 % (0.0-11.0); NEUTROPHIL # 6.6 10^3/ul (1.6-7.5); NEUTROPHILS % 69.5 % (39.0-77.0); PLATELET COUNT 591 10^3/UL (140-440); RED BLOOD COUNT 3.97 10^6/ul (4.70-6.10); RED CELL DISTRIBUTION WIDTH 15.7 % (11.5-14.5); UNCORRECTED WBC 9.4 10^3/ul (4.8-10.8); WHITE BLOOD COUNT 9.4 10^3/ul (4.8-10.8)
[2016-11-05 07:38] LABS: CONDITION 1; LH ANALYZER COMMENTS 1; POTASSIUM 3.8 mmol/L (3.5-5.1)
[2016-11-05 07:41] LABS: CREATININE 0.48 mg/dl (0.61-1.24)
[2016-11-05 07:42] LABS: CALCIUM 9.3 mg/dl (8.4-10.2)
[2016-11-05] MEDS: APIXABAN 5 MG TABLET GTB SCH ×2 (09:13→20:32)
[2016-11-05] MEDS: METOCLOPRAMIDE 10 MG INJ IV SCH ×2 (09:13→20:28)
[2016-11-05] MEDS: DOCUSATE SODIUM 10 MG/ML (10ML CUP) PEG SCH ×2 (09:13→20:32)
[2016-11-05] MEDS: COLLAGENASE 30 GM TUBE TOP SCH (09:14)
[2016-11-05] MEDS: NYSTATIN 30 GM POWDER BTL TOP SCH ×2 (09:14→20:33)
[2016-11-05] MEDS: FAMOTIDINE 20 MG TAB PO SCH (09:14)
[2016-11-05] MEDS: FUROSEMIDE 20 MG TAB PO SCH (09:14)
[2016-11-05] MEDS: LISINOPRIL 5 MG TAB PO SCH ×2 (09:14→20:32)
[2016-11-05] MEDS: VANCOMYCIN 1.5 GM in SOD CHLORIDE 0.9% 250 ML IVPB SCH ×2 (09:25→20:28)
--- NOTE | 2016-11-05 10:37 | PN ---
Date/Time of Note Date/Time of Note DATE: 11/05/16 TIME: 10:33 Assessment/Plan Lines/Catheters IV Catheter Type (from Nrs): PICC Line Urinary Cath still in place: No Subjective 24 Hr Interval Summary Free Text/Dictation NAD. per staff, patient wants to have speaking valve. dw staff- no new issues reported. Eyes: no complaints ENT: no complaints Respiratory: no complaints Exam/Review of Systems Vital Signs Vitals Vital Signs Date Time Temp Pulse Resp B/P Pulse Ox O2 Delivery O2 Flow Rate FiO2 11/05/16 09:05 58 15 98 30 11/05/16 08:54 98.0 120/71 Intake and Output 11/04/16 11/04/16 11/05/16 15:00 23:00 07:00 Intake Total 500 ml 900 ml 800 ml Output Total 1500 ml 1150 ml Balance 500 ml -600 ml -350 ml Exam Constitutional: alert, well developed Psych: nl mood/affect Eyes: EOMI, PERRL, nl sclera ENMT: nl external ears & nose Respiratory: diminished breath sounds Cardiovascular: nl pulses Gastrointestinal: non-tender, soft Musculoskeletal: nl extremities to inspection Extremities: normal pulses Neurological: other (oriented to name ) Skin: nl turgor Lymph: nontender Results Result Diagram: 11/05/16 0710 11/05/16 0710 Results 24 hrs Laboratory Tests Test 11/05/16 07:10 Anion Gap 13 Basophils # 0.0 Basophils % 0.4 Blood Morphology Comment Blood Urea Nitrogen 13 Calcium Level 9.3 Carbon Dioxide Level 32 H Chloride Level 100 Creatinine 0.48 L Eosinophils # 0.4 Eosinophils % 4.1 Glucose Level 99 Hematocrit 34.5 L Hemoglobin 11.3 L Lymphocytes # 1.4 Lymphocytes % 14.7 L Magnesium Level 1.7 Mean Corpuscular Hemoglobin 28.5 L Mean Corpuscular Hemoglobin Concent 32.8 Mean Corpuscular Volume 87.0 Mean Platelet Volume 8.9 Monocytes # 1.1 H Monocytes % 11.3 H Neutrophils # 6.6 Neutrophils % 69.5 Nucleated Red Blood Cells # 0.0 Nucleated Red Blood Cells % 0.0 Platelet Count 591 H Potassium Level 3.8 Red Blood Count 3.97 L Red Cell Distribution Width 15.7 H Sodium Level 141 White Blood Count 9.4 Medications Medications Current Medications Ondansetron HCl (Zofran Inj) 4 mg Q6H PRN IV NAUSEA AND/OR VOMITING; Start at 18:00 Morphine Sulfate (morphine) 2 mg Q4H PRN IV PAIN LEVEL 7-10 Last administered on 10/30/16 03:33; Admin Dose 2 MG; Start 09/15/16 at 18:00 Haloperidol (Haldol) 5 mg Q6H PRN IM AGITATION Last administered on 10/30/16 02:05; Admin Dose 5 MG; Start 09/18/16 at 11:30 Metoclopramide HCl (Reglan) 10 mg Q12 IV Last administered on 11/05/16 09:13; Admin Dose 10 MG; Start 09/24/16 at 11:30 Acetaminophen (Tylenol Liquid) 650 mg Q4H PRN NGT PAIN AND OR ELEVATED TEMP Last administered on 10/30/16 21:59; Admin Dose 650 MG; Start 09/28/16 at 13:30 Collagenase (Santyl) 1 applic DAILY TOP Last administered on 11/05/16 09:14; Admin Dose 1 APPLIC; Start 10/08/16 at 20:00 Nystatin (Nystatin Powder) 1 applic BID TOP Last administered on 11/05/16 09: 14; Admin Dose 1 APPLIC; Start 10/08/16 at 21:00 Collagenase (Santyl) 1 applic PRN PRN TOP WOUND CARE Last administered on 07:54; Admin Dose 1 APPLIC; Start 10/08/16 at 17:30 Lorazepam (Ativan) 2 mg Q2H PRN IV AGITATION Last administered on 11/05/16 06: 15; Admin Dose 2 MG; Start 10/16/16 at 16:00 Fentanyl (Duragesic 50 Mcg/Hr Patch) 1 patch Q72H TRANSDERM Last administered on 11/02/16 12:48; Admin Dose 1 PATCH; Start 10/21/16 at 11:30 Lorazepam (Ativan) 2 mg Q2H PRN PEG AGITATION Last administered on 10/25/16 18: 43; Admin Dose 2 MG; Start 10/25/16 at 15:00 Docusate Sodium (Colace Liquid Cup) 200 mg BID PEG Last administered on 09:13; Admin Dose 200 MG; Start 10/25/16 at 21:00; Stop 11/15/16 at 08:00 Famotidine (Pepcid) 20 mg DAILY PO Last administered on 11/05/16 09:14; Admin Dose 20 MG; Start 10/26/16 at 09:00 Polyethylene Glycol 17 gm 17 gm DAILY PRN GTB CONSTIPATION; Start 10/27/16 at 13 :30 Vancomycin HCl 1.5 gm/Sodium Chloride 250 ml @ 83.333 mls/ hr Q12H IVPB Last administered on 11/05/16 09:25; Admin Dose 83.333 MLS/HR; Start 10/29/16 at 20: 00 Meropenem 100 ml @ 200 mls/hr Q8 IVPB Last administered on 11/05/16 06:15; Admin Dose 200 MLS/HR; Start 10/30/16 at 14:00 Caspofungin/ Sodium Chloride (Cancidas/NS) 250 ml @ 250 mls/hr Q24H IVPB Last administered on 11/04/16 12:31; Admin Dose 250 MLS/HR; Start 10/31/16 at 13:00 Methadone HCl (Methadone) 10 mg Q6H PRN PO PAIN Last administered on 10/30/16 13:13; Admin Dose 10 MG; Start 10/30/16 at 12:00 Apixaban (Eliquis) 5 mg BID GTB Last administered on 11/05/16 09:13; Admin Dose 5 MG; Start 10/31/16 at 21:00 Zolpidem Tartrate (Ambien) 10 mg HS PRN PEG INSOMNIA Last administered on 20:43; Admin Dose 10 MG; Start 11/01/16 at 03:00 Furosemide (Lasix) 20 mg DAILY PO Last administered on 11/05/16 09:14; Admin Dose 20 MG; Start 11/03/16 at 09:00 Lisinopril (Zestril) 5 mg BID PO Last administered on 11/05/16 09:14; Admin Dose 5 MG; Start 11/04/16 at 21:00 CECY BELTRAN Nov 05, 2016 10:36
[2016-11-05] MEDS: FENTAnyl PATCH 50 MCG/HR TRANSDERM SCH (12:42)
[2016-11-05] MEDS: CASPOFUNGIN 50 MG in SOD CHLORIDE 0.9% 250 ML IVPB SCH (12:43)
--- NOTE | 2016-11-05 12:48 | CONS ---
Date/Time of Note Date/Time of Note DATE: 11/05/16 TIME: 12:43 Assessment/Plan Assessment/Plan Chief Complaint/Hosp Course assessment/impression - Recurrent sepsis with early septic shock - responded to IVF and change of abx. Fever and leukocytosis resolved. 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 Could be started as CAP, other considerations include aspiration PNA. - recurrent right pleural effusion. s/p diagnostic thoracentesis on 09/22/16. It showed glu=74 pro <2, ZVH=[id number]. No malignancy on cytology. s/p repeat thoracentesis 10/01/16, no malignancy on cytology. 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) - s/p transaminitis, possibly shock liver, improved - s/p drug rash likely d/t pip/tazo, resolving - antimicrobial history: vanco (09/19/16-10/04/16, 10/08/16-10/10/16), azithromycin (10/02/16-10/06/16), pip/tazo (09/29/16-10/08/16), Tamiflu (10/02/16-), ashlyn (10/08-10/15/16) - negative results: rapid influenza screen, PPD, legionella antigen, mycoplasma pneumoniae, chlamydia pneumoniae serology, and respiratory viral panel; AFB smear (09/29, 09/30, 10/01, 10/08, 10/13) recommendations: - 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 Osullivan Problems: Consultation Date/Type/Reason Admit Date/Time Sep 15, 2016 at 16:54 Initial Consult Date 09/29/16 Type of Consultation: Infectious Disease Referring Provider: JAN ZHANG 24 HR Interval Summary Free Text/Dictation Pt declined video swallow and requested PMV; Seen by ST who recommended PMV as tolerated and PO trials per BRENDA Felix. Denies any pain, SOB, n/v/d, dysuria. Exam/Review of Systems Vital Signs Vitals Vital Signs Date Time Temp Pulse Resp B/P Pulse Ox O2 Delivery O2 Flow Rate FiO2 11/05/16 09:05 58 15 98 30 11/05/16 08:54 98.0 120/71 Intake and Output 11/04/16 11/04/16 11/05/16 15:00 23:00 07:00 Intake Total 500 ml 900 ml 800 ml Output Total 1500 ml 1150 ml Balance 500 ml -600 ml -350 ml Exam Constitutional: alert, oriented, well developed, speaks few words softly and clear Psych: nl mood/affect, no complaints Head: atraumatic, normocephalic Neck: other (trach midline and intact), supple, No jvd Respiratory: clear to auscultation, normal air movement, R lower chest wall dressing c/d/i Cardiovascular: nl pulses, regular rate and rhythm Gastrointestinal: non-tender, soft Extremities: normal pulses, No clubbing, No cyanosis, No edema Neurological: nl mental status, other (interactive, follows simple commands, GUALLPA) Skin: nl turgor, other (left SCV dressing c/d/i) Results Result Diagram: 11/05/16 0710 11/05/16 0710 Results 24 hrs Laboratory Tests Test 11/05/16 07:10 Anion Gap 13 Basophils # 0.0 Basophils % 0.4 Blood Morphology Comment Blood Urea Nitrogen 13 Calcium Level 9.3 Carbon Dioxide Level 32 H Chloride Level 100 Creatinine 0.48 L Eosinophils # 0.4 Eosinophils % 4.1 Glucose Level 99 Hematocrit 34.5 L Hemoglobin 11.3 L Lymphocytes # 1.4 Lymphocytes % 14.7 L Magnesium Level 1.7 Mean Corpuscular Hemoglobin 28.5 L Mean Corpuscular Hemoglobin Concent 32.8 Mean Corpuscular Volume 87.0 Mean Platelet Volume 8.9 Monocytes # 1.1 H Monocytes % 11.3 H Neutrophils # 6.6 Neutrophils % 69.5 Nucleated Red Blood Cells # 0.0 Nucleated Red Blood Cells % 0.0 Platelet Count 591 H Potassium Level 3.8 Red Blood Count 3.97 L Red Cell Distribution Width 15.7 H Sodium Level 141 White Blood Count 9.4 Medications Medications Current Medications Ondansetron HCl (Zofran Inj) 4 mg Q6H PRN IV NAUSEA AND/OR VOMITING; Start at 18:00 Morphine Sulfate (morphine) 2 mg Q4H PRN IV PAIN LEVEL 7-10 Last administered on 10/30/16 03:33; Admin Dose 2 MG; Start 09/15/16 at 18:00 Haloperidol (Haldol) 5 mg Q6H PRN IM AGITATION Last administered on 10/30/16 02:05; Admin Dose 5 MG; Start 09/18/16 at 11:30 Metoclopramide HCl (Reglan) 10 mg Q12 IV Last administered on 11/05/16 09:13; Admin Dose 10 MG; Start 09/24/16 at 11:30 Acetaminophen (Tylenol Liquid) 650 mg Q4H PRN NGT PAIN AND OR ELEVATED TEMP Last administered on 10/30/16 21:59; Admin Dose 650 MG; Start 09/28/16 at 13:30 Collagenase (Santyl) 1 applic DAILY TOP Last administered on 11/05/16 09:14; Admin Dose 1 APPLIC; Start 10/08/16 at 20:00 Nystatin (Nystatin Powder) 1 applic BID TOP Last administered on 11/05/16 09: 14; Admin Dose 1 APPLIC; Start 10/08/16 at 21:00 Collagenase (Santyl) 1 applic PRN PRN TOP WOUND CARE Last administered on 07:54; Admin Dose 1 APPLIC; Start 10/08/16 at 17:30 Lorazepam (Ativan) 2 mg Q2H PRN IV AGITATION Last administered on 11/05/16 06: 15; Admin Dose 2 MG; Start 10/16/16 at 16:00 Fentanyl (Duragesic 50 Mcg/Hr Patch) 1 patch Q72H TRANSDERM Last administered on 11/02/16 12:48; Admin Dose 1 PATCH; Start 10/21/16 at 11:30 Lorazepam (Ativan) 2 mg Q2H PRN PEG AGITATION Last administered on 10/25/16 18: 43; Admin Dose 2 MG; Start 10/25/16 at 15:00 Docusate Sodium (Colace Liquid Cup) 200 mg BID PEG Last administered on 09:13; Admin Dose 200 MG; Start 10/25/16 at 21:00; Stop 11/15/16 at 08:00 Famotidine (Pepcid) 20 mg DAILY PO Last administered on 11/05/16 09:14; Admin Dose 20 MG; Start 10/26/16 at 09:00 Polyethylene Glycol 17 gm 17 gm DAILY PRN GTB CONSTIPATION; Start 10/27/16 at 13 :30 Vancomycin HCl 1.5 gm/Sodium Chloride 250 ml @ 83.333 mls/ hr Q12H IVPB Last administered on 11/05/16 09:25; Admin Dose 83.333 MLS/HR; Start 10/29/16 at 20: 00 Meropenem 100 ml @ 200 mls/hr Q8 IVPB Last administered on 11/05/16 06:15; Admin Dose 200 MLS/HR; Start 10/30/16 at 14:00 Caspofungin/ Sodium Chloride (Cancidas/NS) 250 ml @ 250 mls/hr Q24H IVPB Last administered on 11/04/16 12:31; Admin Dose 250 MLS/HR; Start 10/31/16 at 13:00 Methadone HCl (Methadone) 10 mg Q6H PRN PO PAIN Last administered on 10/30/16 13:13; Admin Dose 10 MG; Start 10/30/16 at 12:00 Apixaban (Eliquis) 5 mg BID GTB Last administered on 11/05/16 09:13; Admin Dose 5 MG; Start 10/31/16 at 21:00 Zolpidem Tartrate (Ambien) 10 mg HS PRN PEG INSOMNIA Last administered on 20:43; Admin Dose 10 MG; Start 11/01/16 at 03:00 Furosemide (Lasix) 20 mg DAILY PO Last administered on 11/05/16 09:14; Admin Dose 20 MG; Start 11/03/16 at 09:00 Lisinopril (Zestril) 5 mg BID PO Last administered on 11/05/16 09:14; Admin Dose 5 MG; Start 11/04/16 at 21:00 LAURA OJEDA NP Nov 05, 2016 12:48
--- NOTE | 2016-11-05 13:16 | CONS ---
Date/Time of Note Date/Time of Note DATE: 11/05/16 TIME: 13:12 Assessment/Plan Assessment/Plan Additional Assessment/Plan Ventilator settings; SIMV of 10, tidal volume 500, pressure support of 10, PEEP of 5, 30% FiO2. Assessment and recommendations; 1. Patient admitted with respiratory failure due to extensive right-sided pneumonia. Status post VATS procedure and chest tube placement with subsequent removal. 2. Status post tracheostomy and G-tube placement as the patient failed to be weaned from ventilator due to severe drug withdrawal. 3. Underlying cardiomyopathy. 4. Hypertension. 5. DVT and PE. 6. Recurrent pneumonia. Continue current treatment for now. Patient needs to be transferred to a rehab facility. Consultation Date/Type/Reason Admit Date/Time Sep 15, 2016 at 16:54 Initial Consult Date 09/29/16 Type of Consultation: Pulmonary Referring Provider: JAN ZHANG 24 HR Interval Summary Free Text/Dictation Patient condition is stable. Has been put on Passy-Yenny valve and the patient is handling that well. She denies any chest pain, shortness of breath. Short while ago he threatened to sign out AMA. Next General examination; middle-aged man, on ventilator via tracheostomy currently in no distress. Exam/Review of Systems Vital Signs Vitals Vital Signs Date Time Temp Pulse Resp B/P Pulse Ox O2 Delivery O2 Flow Rate FiO2 11/05/16 13:09 30 11/05/16 12:20 98.0 63 18 115/77 98 Intake and Output 11/04/16 11/04/16 11/05/16 15:00 23:00 07:00 Intake Total 500 ml 900 ml 800 ml Output Total 1500 ml 1150 ml Balance 500 ml -600 ml -350 ml Exam H EENT examination; supple neck, no JVD. No lymphadenopathy. Midline trachea. Pupils are midsize and reactive to light. Pharynx is clear. With good dentition. Tracheostomy in place with clean insertion site. Chest examination; clear to auscultation bilaterally. S1-S2 audible, no murmurs. Regular rhythm. Next Abdomen examination; soft, nontender, nondistended, no organomegaly, G-tube in place, bowel sounds audible. Extremity examination; no peripheral edema. Pulses 2+ bilaterally. [employer] examination; no focal deficit. Results Result Diagram: 11/05/16 0710 11/05/16 0710 Results 24 hrs Laboratory Tests Test 11/05/16 07:10 Anion Gap 13 Basophils # 0.0 Basophils % 0.4 Blood Morphology Comment Blood Urea Nitrogen 13 Calcium Level 9.3 Carbon Dioxide Level 32 H Chloride Level 100 Creatinine 0.48 L Eosinophils # 0.4 Eosinophils % 4.1 Glucose Level 99 Hematocrit 34.5 L Hemoglobin 11.3 L Lymphocytes # 1.4 Lymphocytes % 14.7 L Magnesium Level 1.7 Mean Corpuscular Hemoglobin 28.5 L Mean Corpuscular Hemoglobin Concent 32.8 Mean Corpuscular Volume 87.0 Mean Platelet Volume 8.9 Monocytes # 1.1 H Monocytes % 11.3 H Neutrophils # 6.6 Neutrophils % 69.5 Nucleated Red Blood Cells # 0.0 Nucleated Red Blood Cells % 0.0 Platelet Count 591 H Potassium Level 3.8 Red Blood Count 3.97 L Red Cell Distribution Width 15.7 H Sodium Level 141 White Blood Count 9.4 Medications Medications Current Medications Ondansetron HCl (Zofran Inj) 4 mg Q6H PRN IV NAUSEA AND/OR VOMITING; Start at 18:00 Morphine Sulfate (morphine) 2 mg Q4H PRN IV PAIN LEVEL 7-10 Last administered on 10/30/16 03:33; Admin Dose 2 MG; Start 09/15/16 at 18:00 Haloperidol (Haldol) 5 mg Q6H PRN IM AGITATION Last administered on 10/30/16 02:05; Admin Dose 5 MG; Start 09/18/16 at 11:30 Metoclopramide HCl (Reglan) 10 mg Q12 IV Last administered on 11/05/16 09:13; Admin Dose 10 MG; Start 09/24/16 at 11:30 Acetaminophen (Tylenol Liquid) 650 mg Q4H PRN NGT PAIN AND OR ELEVATED TEMP Last administered on 10/30/16 21:59; Admin Dose 650 MG; Start 09/28/16 at 13:30 Collagenase (Santyl) 1 applic DAILY TOP Last administered on 11/05/16 09:14; Admin Dose 1 APPLIC; Start 10/08/16 at 20:00 Nystatin (Nystatin Powder) 1 applic BID TOP Last administered on 11/05/16 09: 14; Admin Dose 1 APPLIC; Start 10/08/16 at 21:00 Collagenase (Santyl) 1 applic PRN PRN TOP WOUND CARE Last administered on 07:54; Admin Dose 1 APPLIC; Start 10/08/16 at 17:30 Lorazepam (Ativan) 2 mg Q2H PRN IV AGITATION Last administered on 11/05/16 06: 15; Admin Dose 2 MG; Start 10/16/16 at 16:00 Fentanyl (Duragesic 50 Mcg/Hr Patch) 1 patch Q72H TRANSDERM Last administered on 11/05/16 12:42; Admin Dose 1 PATCH; Start 10/21/16 at 11:30 Lorazepam (Ativan) 2 mg Q2H PRN PEG AGITATION Last administered on 10/25/16 18: 43; Admin Dose 2 MG; Start 10/25/16 at 15:00 Docusate Sodium (Colace Liquid Cup) 200 mg BID PEG Last administered on 09:13; Admin Dose 200 MG; Start 10/25/16 at 21:00; Stop 11/15/16 at 08:00 Famotidine (Pepcid) 20 mg DAILY PO Last administered on 11/05/16 09:14; Admin Dose 20 MG; Start 10/26/16 at 09:00 Polyethylene Glycol 17 gm 17 gm DAILY PRN GTB CONSTIPATION; Start 10/27/16 at 13 :30 Vancomycin HCl 1.5 gm/Sodium Chloride 250 ml @ 83.333 mls/ hr Q12H IVPB Last administered on 11/05/16 09:25; Admin Dose 83.333 MLS/HR; Start 10/29/16 at 20: 00 Meropenem 100 ml @ 200 mls/hr Q8 IVPB Last administered on 11/05/16 06:15; Admin Dose 200 MLS/HR; Start 10/30/16 at 14:00 Caspofungin/ Sodium Chloride (Cancidas/NS) 250 ml @ 250 mls/hr Q24H IVPB Last administered on 11/05/16 12:43; Admin Dose 250 MLS/HR; Start 10/31/16 at 13:00 Methadone HCl (Methadone) 10 mg Q6H PRN PO PAIN Last administered on 10/30/16 13:13; Admin Dose 10 MG; Start 10/30/16 at 12:00 Apixaban (Eliquis) 5 mg BID GTB Last administered on 11/05/16 09:13; Admin Dose 5 MG; Start 10/31/16 at 21:00 Zolpidem Tartrate (Ambien) 10 mg HS PRN PEG INSOMNIA Last administered on 20:43; Admin Dose 10 MG; Start 11/01/16 at 03:00 Furosemide (Lasix) 20 mg DAILY PO Last administered on 11/05/16 09:14; Admin Dose 20 MG; Start 11/03/16 at 09:00 Lisinopril (Zestril) 5 mg BID PO Last administered on 11/05/16 09:14; Admin Dose 5 MG; Start 11/04/16 at 21:00 ILYA HILL Nov 05, 2016 13:16
--- NOTE | 2016-11-05 18:47 | CONS ---
Date/Time of Note Date/Time of Note DATE: 11/05/16 TIME: 18:46 Assessment/Plan Assessment/Plan Additional Assessment/Plan Respiratory failure Sepsis Pulmonary emboli Acute decompensated systolic congestive heart failure Severe biventricular cardiomyopathy with left ventricular ejection fraction 20% Pleural effusion -Blood pressure trend remained stable. Continue HILDA inhibitor and maintenance diuretics. Beta-beatriz not reinitiated secondary to episodes of bradycardia. Supplement potassium to maintain above 4.0 and magnesium above 2.0. Consultation Date/Type/Reason Admit Date/Time Sep 15, 2016 at 16:54 Initial Consult Date 09/29/16 Type of Consultation: cv Referring Provider: JAN ZHANG 24 HR Interval Summary Free Text/Dictation Denies shortness of breath, chest pain Exam/Review of Systems Vital Signs Vitals Vital Signs Date Time Temp Pulse Resp B/P Pulse Ox O2 Delivery O2 Flow Rate FiO2 11/05/16 17:00 64 24 98 30 11/05/16 16:23 98.4 117/68 Intake and Output 11/04/16 11/04/16 11/05/16 14:59 22:59 06:59 Intake Total 500 ml 900 ml 800 ml Output Total 1500 ml 1150 ml Balance 500 ml -600 ml -350 ml Exam No apparent distress Constitutional: alert, oriented Head: normocephalic Neck: other (Tracheostomy) Respiratory: other (Coarse breath sounds bilaterally, no wheezing) Cardiovascular: other (S1-S2 heard), regular rate and rhythm Gastrointestinal: bowel sounds, non-tender, other (No guarding), soft Extremities: other (No edema) Results Result Diagram: 11/05/16 0710 11/05/16 0710 Results 24 hrs Laboratory Tests Test 11/05/16 07:10 Anion Gap 13 Basophils # 0.0 Basophils % 0.4 Blood Morphology Comment Blood Urea Nitrogen 13 Calcium Level 9.3 Carbon Dioxide Level 32 H Chloride Level 100 Creatinine 0.48 L Eosinophils # 0.4 Eosinophils % 4.1 Glucose Level 99 Hematocrit 34.5 L Hemoglobin 11.3 L Lymphocytes # 1.4 Lymphocytes % 14.7 L Magnesium Level 1.7 Mean Corpuscular Hemoglobin 28.5 L Mean Corpuscular Hemoglobin Concent 32.8 Mean Corpuscular Volume 87.0 Mean Platelet Volume 8.9 Monocytes # 1.1 H Monocytes % 11.3 H Neutrophils # 6.6 Neutrophils % 69.5 Nucleated Red Blood Cells # 0.0 Nucleated Red Blood Cells % 0.0 Platelet Count 591 H Potassium Level 3.8 Red Blood Count 3.97 L Red Cell Distribution Width 15.7 H Sodium Level 141 White Blood Count 9.4 Medications Medications Current Medications Ondansetron HCl (Zofran Inj) 4 mg Q6H PRN IV NAUSEA AND/OR VOMITING; Start at 18:00 Morphine Sulfate (morphine) 2 mg Q4H PRN IV PAIN LEVEL 7-10 Last administered on 10/30/16 03:33; Admin Dose 2 MG; Start 09/15/16 at 18:00 Haloperidol (Haldol) 5 mg Q6H PRN IM AGITATION Last administered on 10/30/16 02:05; Admin Dose 5 MG; Start 09/18/16 at 11:30 Metoclopramide HCl (Reglan) 10 mg Q12 IV Last administered on 11/05/16 09:13; Admin Dose 10 MG; Start 09/24/16 at 11:30 Acetaminophen (Tylenol Liquid) 650 mg Q4H PRN NGT PAIN AND OR ELEVATED TEMP Last administered on 10/30/16 21:59; Admin Dose 650 MG; Start 09/28/16 at 13:30 Collagenase (Santyl) 1 applic DAILY TOP Last administered on 11/05/16 09:14; Admin Dose 1 APPLIC; Start 10/08/16 at 20:00 Nystatin (Nystatin Powder) 1 applic BID TOP Last administered on 11/05/16 09: 14; Admin Dose 1 APPLIC; Start 10/08/16 at 21:00 Collagenase (Santyl) 1 applic PRN PRN TOP WOUND CARE Last administered on 07:54; Admin Dose 1 APPLIC; Start 10/08/16 at 17:30 Lorazepam (Ativan) 2 mg Q2H PRN IV AGITATION Last administered on 11/05/16 16: 41; Admin Dose 2 MG; Start 10/16/16 at 16:00 Fentanyl (Duragesic 50 Mcg/Hr Patch) 1 patch Q72H TRANSDERM Last administered on 11/05/16 12:42; Admin Dose 1 PATCH; Start 10/21/16 at 11:30 Lorazepam (Ativan) 2 mg Q2H PRN PEG AGITATION Last administered on 10/25/16 18: 43; Admin Dose 2 MG; Start 10/25/16 at 15:00 Docusate Sodium (Colace Liquid Cup) 200 mg BID PEG Last administered on 09:13; Admin Dose 200 MG; Start 10/25/16 at 21:00; Stop 11/15/16 at 08:00 Famotidine (Pepcid) 20 mg DAILY PO Last administered on 11/05/16 09:14; Admin Dose 20 MG; Start 10/26/16 at 09:00 Polyethylene Glycol 17 gm 17 gm DAILY PRN GTB CONSTIPATION; Start 10/27/16 at 13 :30 Vancomycin HCl 1.5 gm/Sodium Chloride 250 ml @ 83.333 mls/ hr Q12H IVPB Last administered on 11/05/16 09:25; Admin Dose 83.333 MLS/HR; Start 10/29/16 at 20: 00 Meropenem 100 ml @ 200 mls/hr Q8 IVPB Last administered on 11/05/16 15:11; Admin Dose 200 MLS/HR; Start 10/30/16 at 14:00 Caspofungin/ Sodium Chloride (Cancidas/NS) 250 ml @ 250 mls/hr Q24H IVPB Last administered on 11/05/16 12:43; Admin Dose 250 MLS/HR; Start 10/31/16 at 13:00 Methadone HCl (Methadone) 10 mg Q6H PRN PO PAIN Last administered on 10/30/16 13:13; Admin Dose 10 MG; Start 10/30/16 at 12:00 Apixaban (Eliquis) 5 mg BID GTB Last administered on 11/05/16 09:13; Admin Dose 5 MG; Start 10/31/16 at 21:00 Zolpidem Tartrate (Ambien) 10 mg HS PRN PEG INSOMNIA Last administered on 20:43; Admin Dose 10 MG; Start 11/01/16 at 03:00 Furosemide (Lasix) 20 mg DAILY PO Last administered on 11/05/16 09:14; Admin Dose 20 MG; Start 11/03/16 at 09:00 Lisinopril (Zestril) 5 mg BID PO Last administered on 11/05/16 09:14; Admin Dose 5 MG; Start 11/04/16 at 21:00 Nikolay Luna DO Nov 05, 2016 18:47
[2016-11-05] MEDS ORDERED: POTASSIUM CHLORIDE 20 MEQ POWDER FOR ORAL SOLN GTB ONE (19:00)
[2016-11-05] MEDS ORDERED: MAGNESIUM SULFATE 2 GM/50 ML 50 ML IVPB ONE (19:00)
--- NOTE | 2016-11-05 21:47 | PN ---
Date/Time of Note Date/Time of Note DATE: 11/05/16 TIME: 21:47 Assessment/Plan Lines/Catheters IV Catheter Type (from Nrsg): PICC Line Tang in Place (from Nrsg): No Assessment/Plan Chief Complaint/Hosp Course IMPRESSION 1. Pulmonary embolism. 2. Pneumonia. 3 Pleural effusion RECOMMENDATIONS: SP CT placement SP Trach will continue vent support trach care CT DCed CXR with no PTX Problems: Subjective 24 Hr Interval Summary Constitutional: improved Pain Control: mild Exam/Review of Systems Vital Signs Vitals Vital Signs Date Time Temp Pulse Resp B/P Pulse Ox O2 Delivery O2 Flow Rate FiO2 11/05/16 20:43 73 11/05/16 20:28 97.6 28 129/82 96 11/05/16 20:01 30 Intake and Output 11/04/16 11/04/16 11/05/16 15:00 23:00 07:00 Intake Total 500 ml 900 ml 800 ml Output Total 1500 ml 1150 ml Balance 500 ml -600 ml -350 ml Exam Neck: non-tender, supple Respiratory: clear to auscultation, normal air movement Cardiovascular: nl pulses, regular rate and rhythm Results Result Diagram: 11/05/16 0710 11/05/16 0710 YOUNG HAY MD Nov 05, 2016 21:47
[2016-11-06] VITALS (19 sets, daily range): BP systolic 111–127; BP diastolic 68–80; PULSE 55–83; RESP 14–23
[2016-11-06] MEDS: LORAZEPAM 2 MG INJ IV PRN ×2 (06:18→23:48)
[2016-11-06] MEDS: MEROPENEM 1 GM/100 ML (PMX) 100 ML IVPB SCH ×2 (06:23→14:13)
[2016-11-06 08:15] LABS: BASOPHIL # 0.1 10^3/ul (0.0-0.1); BASOPHILS % 0.7 % (0.0-2.0); EOSINOPHILS # 1.1 10^3/ul (0.0-0.5); EOSINOPHILS % 10.1 % (0.0-7.0); HEMATOCRIT 37.2 % (42.0-52.0); HEMOGLOBIN 12.3 g/dl (14.0-18.0); LYMPHOCYTES # 1.8 10^3/ul (0.8-2.9); LYMPHOCYTES % 16.8 % (15.0-51.0); MEAN CORPUSCULAR HEMOGLOBIN 29.2 pg (29.0-33.0); MEAN CORPUSCULAR HGB CONC 33.1 g/dl (32.0-37.0); MEAN PLATELET VOLUME 9.1 fl (7.4-10.4); MONOCYTES % 9.9 % (0.0-11.0); NEUTROPHIL # 6.6 10^3/ul (1.6-7.5); NEUTROPHILS % 62.5 % (39.0-77.0); PLATELET COUNT 631 10^3/UL (140-440); RED BLOOD COUNT 4.22 10^6/ul (4.70-6.10); RED CELL DISTRIBUTION WIDTH 15.7 % (11.5-14.5); UNCORRECTED WBC 10.5 10^3/ul (4.8-10.8); WHITE BLOOD COUNT 10.5 10^3/ul (4.8-10.8)
[2016-11-06 08:23] LABS: POTASSIUM 3.8 mmol/L (3.5-5.1)
[2016-11-06 08:26] LABS: CREATININE 0.52 mg/dl (0.61-1.24)
[2016-11-06 08:27] LABS: CALCIUM 9.2 mg/dl (8.4-10.2); CONDITION 1; LH ANALYZER COMMENTS 1
[2016-11-06] MEDS: VANCOMYCIN 1.5 GM in SOD CHLORIDE 0.9% 250 ML IVPB SCH ×2 (09:15→20:42)
[2016-11-06] MEDS: DOCUSATE SODIUM 10 MG/ML (10ML CUP) PEG SCH ×2 (09:15→20:42)
[2016-11-06] MEDS: FUROSEMIDE 20 MG TAB PO SCH (09:17)
[2016-11-06] MEDS: FAMOTIDINE 20 MG TAB PO SCH (09:17)
[2016-11-06] MEDS: LISINOPRIL 5 MG TAB PO SCH ×2 (09:17→20:44)
[2016-11-06] MEDS: APIXABAN 5 MG TABLET GTB SCH ×2 (09:17→20:43)
[2016-11-06] MEDS: METOCLOPRAMIDE 10 MG INJ IV SCH ×2 (09:17→20:42)
[2016-11-06] MEDS: NYSTATIN 30 GM POWDER BTL TOP SCH ×2 (09:18→20:44)
[2016-11-06] MEDS: COLLAGENASE 30 GM TUBE TOP SCH (09:18)
[2016-11-06] MEDS: CASPOFUNGIN 50 MG in SOD CHLORIDE 0.9% 250 ML IVPB SCH (12:28)
--- NOTE | 2016-11-06 13:05 | CONS ---
Date/Time of Note Date/Time of Note DATE: 11/06/16 TIME: 13:04 Assessment/Plan Assessment/Plan Additional Assessment/Plan Respiratory failure Sepsis Pulmonary emboli Acute decompensated systolic congestive heart failure Severe biventricular cardiomyopathy with left ventricular ejection fraction 20% Pleural effusion -Blood pressure trend remained stable, continue maintenance diuretics and lisinopril as blood pressure as renal function permits. Consultation Date/Type/Reason Admit Date/Time Sep 15, 2016 at 16:54 Initial Consult Date 09/29/16 Type of Consultation: cv Referring Provider: JAN ZHANG 24 HR Interval Summary Free Text/Dictation Patient seen and examined Exam/Review of Systems Vital Signs Vitals Vital Signs Date Time Temp Pulse Resp B/P Pulse Ox O2 Delivery O2 Flow Rate FiO2 11/06/16 12:20 55 11/06/16 11:20 14 97 30 11/06/16 11:16 98.6 121/68 Intake and Output 11/05/16 11/05/16 11/06/16 15:00 23:00 07:00 Intake Total 1200 ml 900 ml Output Total 2000 ml 1250 ml Balance -800 ml -350 ml Exam Sleeping, no apparent distress Head: normocephalic Neck: other (Tracheostomy) Respiratory: other (Coarse breath sounds bilaterally, no wheezing) Cardiovascular: other (S1-S2 heard), regular rate and rhythm Gastrointestinal: bowel sounds, non-tender, other (No guarding), soft Extremities: edema (Trace) Results Result Diagram: 11/06/16 0632 11/06/16 0632 Results 24 hrs Laboratory Tests Test 11/06/16 06:32 Anion Gap 14 Basophils # 0.1 Basophils % 0.7 Blood Morphology Comment Blood Urea Nitrogen 16 Calcium Level 9.2 Carbon Dioxide Level 32 H Chloride Level 103 Creatinine 0.52 L Eosinophils # 1.1 H Eosinophils % 10.1 H Glucose Level 90 Hematocrit 37.2 L Hemoglobin 12.3 L Lymphocytes # 1.8 Lymphocytes % 16.8 Magnesium Level 2.0 Mean Corpuscular Hemoglobin 29.2 Mean Corpuscular Hemoglobin Concent 33.1 Mean Corpuscular Volume 88.0 Mean Platelet Volume 9.1 Monocytes # 1.0 H Monocytes % 9.9 Neutrophils # 6.6 Neutrophils % 62.5 Nucleated Red Blood Cells # 0.0 Nucleated Red Blood Cells % 0.0 Platelet Count 631 H Potassium Level 3.8 Red Blood Count 4.22 L Red Cell Distribution Width 15.7 H Sodium Level 145 H White Blood Count 10.5 Medications Medications Current Medications Ondansetron HCl (Zofran Inj) 4 mg Q6H PRN IV NAUSEA AND/OR VOMITING; Start at 18:00 Morphine Sulfate (morphine) 2 mg Q4H PRN IV PAIN LEVEL 7-10 Last administered on 10/30/16 03:33; Admin Dose 2 MG; Start 09/15/16 at 18:00 Haloperidol (Haldol) 5 mg Q6H PRN IM AGITATION Last administered on 10/30/16 02:05; Admin Dose 5 MG; Start 09/18/16 at 11:30 Metoclopramide HCl (Reglan) 10 mg Q12 IV Last administered on 11/06/16 09:17; Admin Dose 10 MG; Start 09/24/16 at 11:30 Acetaminophen (Tylenol Liquid) 650 mg Q4H PRN NGT PAIN AND OR ELEVATED TEMP Last administered on 10/30/16 21:59; Admin Dose 650 MG; Start 09/28/16 at 13:30 Collagenase (Santyl) 1 applic DAILY TOP Last administered on 11/06/16 09:18; Admin Dose 1 APPLIC; Start 10/08/16 at 20:00 Nystatin (Nystatin Powder) 1 applic BID TOP Last administered on 11/06/16 09: 18; Admin Dose 1 APPLIC; Start 10/08/16 at 21:00 Collagenase (Santyl) 1 applic PRN PRN TOP WOUND CARE Last administered on 07:54; Admin Dose 1 APPLIC; Start 10/08/16 at 17:30 Lorazepam (Ativan) 2 mg Q2H PRN IV AGITATION Last administered on 11/06/16 06: 18; Admin Dose 2 MG; Start 10/16/16 at 16:00 Fentanyl (Duragesic 50 Mcg/Hr Patch) 1 patch Q72H TRANSDERM Last administered on 11/05/16 12:42; Admin Dose 1 PATCH; Start 10/21/16 at 11:30 Lorazepam (Ativan) 2 mg Q2H PRN PEG AGITATION Last administered on 10/25/16 18: 43; Admin Dose 2 MG; Start 10/25/16 at 15:00 Docusate Sodium (Colace Liquid Cup) 200 mg BID PEG Last administered on 09:15; Admin Dose 200 MG; Start 10/25/16 at 21:00; Stop 11/15/16 at 08:00 Famotidine (Pepcid) 20 mg DAILY PO Last administered on 11/06/16 09:17; Admin Dose 20 MG; Start 10/26/16 at 09:00 Polyethylene Glycol 17 gm 17 gm DAILY PRN GTB CONSTIPATION; Start 10/27/16 at 13 :30 Vancomycin HCl 1.5 gm/Sodium Chloride 250 ml @ 83.333 mls/ hr Q12H IVPB Last administered on 11/06/16 09:15; Admin Dose 83.333 MLS/HR; Start 10/29/16 at 20: 00 Meropenem 100 ml @ 200 mls/hr Q8 IVPB Last administered on 11/06/16 06:23; Admin Dose 200 MLS/HR; Start 10/30/16 at 14:00 Caspofungin/ Sodium Chloride (Cancidas/NS) 250 ml @ 250 mls/hr Q24H IVPB Last administered on 11/06/16 12:28; Admin Dose 250 MLS/HR; Start 10/31/16 at 13:00 Methadone HCl (Methadone) 10 mg Q6H PRN PO PAIN Last administered on 10/30/16 13:13; Admin Dose 10 MG; Start 10/30/16 at 12:00 Apixaban (Eliquis) 5 mg BID GTB Last administered on 11/06/16 09:17; Admin Dose 5 MG; Start 10/31/16 at 21:00 Zolpidem Tartrate (Ambien) 10 mg HS PRN PEG INSOMNIA Last administered on 20:43; Admin Dose 10 MG; Start 11/01/16 at 03:00 Furosemide (Lasix) 20 mg DAILY PO Last administered on 11/06/16 09:17; Admin Dose 20 MG; Start 11/03/16 at 09:00 Lisinopril (Zestril) 5 mg BID PO Last administered on 11/06/16 09:17; Admin Dose 5 MG; Start 11/04/16 at 21:00 Nikolay Luna DO Nov 06, 2016 13:05
[2016-11-06] MEDS ORDERED: POTASSIUM CHLORIDE 20 MEQ POWDER FOR ORAL SOLN JT ONE (13:30)
--- NOTE | 2016-11-06 14:07 | CONS ---
Date/Time of Note Date/Time of Note DATE: 11/06/16 TIME: 14:04 Assessment/Plan Assessment/Plan Additional Assessment/Plan Ventilator settings; SIMV of 10, tidal volume 500, PEEP of 5, 30% FiO2, pressure support of 10. Assessment and recommendations; 1. Patient admitted with respiratory failure due to severe right-sided pneumonia, status post VATS procedure with marked radiological improvement. 2. Status post tracheostomy and G-tube placement. Patient unable to be weaned off ventilator due to severe ongoing drug withdrawal effects; improved lately though. 3. Cardiomyopathy. 4. Hypertension. 5. Recurrence of pneumonia with marked radiological improvement again. As well as significant improvement in leukocytosis. Continue current treatment. Patient awaiting transfer to rehab facility. Consultation Date/Type/Reason Admit Date/Time Sep 15, 2016 at 16:54 Initial Consult Date 09/29/16 Type of Consultation: Pulmonary Referring Provider: JAN ZHANG 24 HR Interval Summary Free Text/Dictation Patient's condition remains stable. Episodes of agitation have markedly decreased in severity as well as frequency. Vision pending [place] valve very well. General examination; middle aged man, on ventilator via tracheostomy currently in no distress. Exam/Review of Systems Vital Signs Vitals Vital Signs Date Time Temp Pulse Resp B/P Pulse Ox O2 Delivery O2 Flow Rate FiO2 11/06/16 13:25 56 17 97 30 11/06/16 11:16 98.6 121/68 Intake and Output 11/05/16 11/05/16 11/06/16 15:00 23:00 07:00 Intake Total 1200 ml 900 ml Output Total 2000 ml 1250 ml Balance -800 ml -350 ml Exam HEENT examination; supple neck, no JVD. No lymphadenopathy. Tracheostomy in place with clean insertion site. Midsize pupils reactive to light. Chest examination; clear to auscultation bilaterally. S1-S2 audible, no murmurs. Regular rhythm. Abdomen examination; soft, G-tube in place. Bowel sounds audible. No organomegaly. Extremity examination; no peripheral edema. Pulses 2+ bilaterally. 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 Results Result Diagram: 11/06/16 0632 11/06/16 0632 Results 24 hrs Laboratory Tests Test 11/06/16 06:32 Anion Gap 14 Basophils # 0.1 Basophils % 0.7 Blood Morphology Comment Blood Urea Nitrogen 16 Calcium Level 9.2 Carbon Dioxide Level 32 H Chloride Level 103 Creatinine 0.52 L Eosinophils # 1.1 H Eosinophils % 10.1 H Glucose Level 90 Hematocrit 37.2 L Hemoglobin 12.3 L Lymphocytes # 1.8 Lymphocytes % 16.8 Magnesium Level 2.0 Mean Corpuscular Hemoglobin 29.2 Mean Corpuscular Hemoglobin Concent 33.1 Mean Corpuscular Volume 88.0 Mean Platelet Volume 9.1 Monocytes # 1.0 H Monocytes % 9.9 Neutrophils # 6.6 Neutrophils % 62.5 Nucleated Red Blood Cells # 0.0 Nucleated Red Blood Cells % 0.0 Platelet Count 631 H Potassium Level 3.8 Red Blood Count 4.22 L Red Cell Distribution Width 15.7 H Sodium Level 145 H White Blood Count 10.5 Medications Medications Current Medications Ondansetron HCl (Zofran Inj) 4 mg Q6H PRN IV NAUSEA AND/OR VOMITING; Start at 18:00 Morphine Sulfate (morphine) 2 mg Q4H PRN IV PAIN LEVEL 7-10 Last administered on 10/30/16 03:33; Admin Dose 2 MG; Start 09/15/16 at 18:00 Haloperidol (Haldol) 5 mg Q6H PRN IM AGITATION Last administered on 10/30/16 02:05; Admin Dose 5 MG; Start 09/18/16 at 11:30 Metoclopramide HCl (Reglan) 10 mg Q12 IV Last administered on 11/06/16 09:17; Admin Dose 10 MG; Start 09/24/16 at 11:30 Acetaminophen (Tylenol Liquid) 650 mg Q4H PRN NGT PAIN AND OR ELEVATED TEMP Last administered on 10/30/16 21:59; Admin Dose 650 MG; Start 09/28/16 at 13:30 Collagenase (Santyl) 1 applic DAILY TOP Last administered on 11/06/16 09:18; Admin Dose 1 APPLIC; Start 10/08/16 at 20:00 Nystatin (Nystatin Powder) 1 applic BID TOP Last administered on 11/06/16 09: 18; Admin Dose 1 APPLIC; Start 10/08/16 at 21:00 Collagenase (Santyl) 1 applic PRN PRN TOP WOUND CARE Last administered on 07:54; Admin Dose 1 APPLIC; Start 10/08/16 at 17:30 Lorazepam (Ativan) 2 mg Q2H PRN IV AGITATION Last administered on 11/06/16 06: 18; Admin Dose 2 MG; Start 10/16/16 at 16:00 Fentanyl (Duragesic 50 Mcg/Hr Patch) 1 patch Q72H TRANSDERM Last administered on 11/05/16 12:42; Admin Dose 1 PATCH; Start 10/21/16 at 11:30 Lorazepam (Ativan) 2 mg Q2H PRN PEG AGITATION Last administered on 10/25/16 18: 43; Admin Dose 2 MG; Start 10/25/16 at 15:00 Docusate Sodium (Colace Liquid Cup) 200 mg BID PEG Last administered on 09:15; Admin Dose 200 MG; Start 10/25/16 at 21:00; Stop 11/15/16 at 08:00 Famotidine (Pepcid) 20 mg DAILY PO Last administered on 11/06/16 09:17; Admin Dose 20 MG; Start 10/26/16 at 09:00 Polyethylene Glycol 17 gm 17 gm DAILY PRN GTB CONSTIPATION; Start 10/27/16 at 13 :30 Vancomycin HCl 1.5 gm/Sodium Chloride 250 ml @ 83.333 mls/ hr Q12H IVPB Last administered on 11/06/16 09:15; Admin Dose 83.333 MLS/HR; Start 10/29/16 at 20: 00 Meropenem 100 ml @ 200 mls/hr Q8 IVPB Last administered on 11/06/16 06:23; Admin Dose 200 MLS/HR; Start 10/30/16 at 14:00 Caspofungin/ Sodium Chloride (Cancidas/NS) 250 ml @ 250 mls/hr Q24H IVPB Last administered on 11/06/16 12:28; Admin Dose 250 MLS/HR; Start 10/31/16 at 13:00 Methadone HCl (Methadone) 10 mg Q6H PRN PO PAIN Last administered on 10/30/16 13:13; Admin Dose 10 MG; Start 10/30/16 at 12:00 Apixaban (Eliquis) 5 mg BID GTB Last administered on 11/06/16 09:17; Admin Dose 5 MG; Start 10/31/16 at 21:00 Zolpidem Tartrate (Ambien) 10 mg HS PRN PEG INSOMNIA Last administered on 20:43; Admin Dose 10 MG; Start 11/01/16 at 03:00 Furosemide (Lasix) 20 mg DAILY PO Last administered on 11/06/16 09:17; Admin Dose 20 MG; Start 11/03/16 at 09:00 Lisinopril (Zestril) 5 mg BID PO Last administered on 11/06/16 09:17; Admin Dose 5 MG; Start 11/04/16 at 21:00 ILYA HILL Nov 06, 2016 14:07
--- NOTE | 2016-11-06 16:12 | CONS ---
Date/Time of Note Date/Time of Note DATE: 11/06/16 TIME: 16:12 Assessment/Plan Assessment/Plan Chief Complaint/Hosp Course assessment/impression - Recurrent sepsis with early septic shock - responded to IVF and change of abx. Fever and leukocytosis resolved. 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 Could be started as CAP, other considerations include aspiration PNA. - recurrent right pleural effusion. s/p diagnostic thoracentesis on 09/22/16. It showed glu=74 pro <2, GFX=[id number]. No malignancy on cytology. s/p repeat thoracentesis 10/01/16, no malignancy on cytology. 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) - s/p transaminitis, possibly shock liver, improved - s/p drug rash likely d/t pip/tazo, resolving - antimicrobial history: vanco (09/19/16-10/04/16, 10/08/16-10/10/16), azithromycin (10/02/16-10/06/16), pip/tazo (09/29/16-10/08/16), Tamiflu (10/02/16-), ashlyn (10/08-10/15/16) - negative results: rapid influenza screen, PPD, legionella antigen, mycoplasma pneumoniae, chlamydia pneumoniae serology, and respiratory viral panel; AFB smear (09/29, 09/30, 10/01, 10/08, 10/13) recommendations: - 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 Osullivan Problems: Consultation Date/Type/Reason Admit Date/Time Sep 15, 2016 at 16:54 Initial Consult Date 09/29/16 Type of Consultation: Infectious Disease Referring Provider: JAN ZHANG 24 HR Interval Summary Free Text/Dictation Remains afebrile, tolerated PMV and pt now on t-piece with cool air mist per RN Agueda. States "I'm fine". Denies SOB. No complaints. Exam/Review of Systems Vital Signs Vitals Vital Signs Date Time Temp Pulse Resp B/P Pulse Ox O2 Delivery O2 Flow Rate FiO2 11/06/16 15:23 98.5 70 18 113/73 96 11/06/16 14:40 5.0 35 Intake and Output 11/05/16 11/05/16 11/06/16 15:00 23:00 07:00 Intake Total 1200 ml 900 ml Output Total 2000 ml 1250 ml Balance -800 ml -350 ml Exam Constitutional: alert, oriented, well developed, speaks few words softly and clear Psych: nl mood/affect, no complaints Head: atraumatic, normocephalic Neck: other (trach midline and intact with t-piece and supplemental O2), supple , No jvd Respiratory: clear to auscultation, normal air movement, R lower chest wall dressing c/d/i Cardiovascular: nl pulses, regular rate and rhythm Gastrointestinal: non-tender, soft Extremities: normal pulses, No clubbing, No cyanosis, No edema Neurological: nl mental status, other (interactive, follows simple commands, GUALLPA) Skin: nl turgor, other (left SCV dressing c/d/i) Results Result Diagram: 11/06/16 0632 11/06/16 0632 Results 24 hrs Laboratory Tests Test 11/06/16 06:32 Anion Gap 14 Basophils # 0.1 Basophils % 0.7 Blood Morphology Comment Blood Urea Nitrogen 16 Calcium Level 9.2 Carbon Dioxide Level 32 H Chloride Level 103 Creatinine 0.52 L Eosinophils # 1.1 H Eosinophils % 10.1 H Glucose Level 90 Hematocrit 37.2 L Hemoglobin 12.3 L Lymphocytes # 1.8 Lymphocytes % 16.8 Magnesium Level 2.0 Mean Corpuscular Hemoglobin 29.2 Mean Corpuscular Hemoglobin Concent 33.1 Mean Corpuscular Volume 88.0 Mean Platelet Volume 9.1 Monocytes # 1.0 H Monocytes % 9.9 Neutrophils # 6.6 Neutrophils % 62.5 Nucleated Red Blood Cells # 0.0 Nucleated Red Blood Cells % 0.0 Platelet Count 631 H Potassium Level 3.8 Red Blood Count 4.22 L Red Cell Distribution Width 15.7 H Sodium Level 145 H White Blood Count 10.5 Medications Medications Current Medications Ondansetron HCl (Zofran Inj) 4 mg Q6H PRN IV NAUSEA AND/OR VOMITING; Start at 18:00 Morphine Sulfate (morphine) 2 mg Q4H PRN IV PAIN LEVEL 7-10 Last administered on 10/30/16 03:33; Admin Dose 2 MG; Start 09/15/16 at 18:00 Haloperidol (Haldol) 5 mg Q6H PRN IM AGITATION Last administered on 10/30/16 02:05; Admin Dose 5 MG; Start 09/18/16 at 11:30 Metoclopramide HCl (Reglan) 10 mg Q12 IV Last administered on 11/06/16 09:17; Admin Dose 10 MG; Start 09/24/16 at 11:30 Acetaminophen (Tylenol Liquid) 650 mg Q4H PRN NGT PAIN AND OR ELEVATED TEMP Last administered on 10/30/16 21:59; Admin Dose 650 MG; Start 09/28/16 at 13:30 Collagenase (Santyl) 1 applic DAILY TOP Last administered on 11/06/16 09:18; Admin Dose 1 APPLIC; Start 10/08/16 at 20:00 Nystatin (Nystatin Powder) 1 applic BID TOP Last administered on 11/06/16 09: 18; Admin Dose 1 APPLIC; Start 10/08/16 at 21:00 Collagenase (Santyl) 1 applic PRN PRN TOP WOUND CARE Last administered on 07:54; Admin Dose 1 APPLIC; Start 10/08/16 at 17:30 Lorazepam (Ativan) 2 mg Q2H PRN IV AGITATION Last administered on 11/06/16 06: 18; Admin Dose 2 MG; Start 10/16/16 at 16:00 Fentanyl (Duragesic 50 Mcg/Hr Patch) 1 patch Q72H TRANSDERM Last administered on 11/05/16 12:42; Admin Dose 1 PATCH; Start 10/21/16 at 11:30 Lorazepam (Ativan) 2 mg Q2H PRN PEG AGITATION Last administered on 10/25/16 18: 43; Admin Dose 2 MG; Start 10/25/16 at 15:00 Docusate Sodium (Colace Liquid Cup) 200 mg BID PEG Last administered on 09:15; Admin Dose 200 MG; Start 10/25/16 at 21:00; Stop 11/15/16 at 08:00 Famotidine (Pepcid) 20 mg DAILY PO Last administered on 11/06/16 09:17; Admin Dose 20 MG; Start 10/26/16 at 09:00 Polyethylene Glycol 17 gm 17 gm DAILY PRN GTB CONSTIPATION; Start 10/27/16 at 13 :30 Vancomycin HCl 1.5 gm/Sodium Chloride 250 ml @ 83.333 mls/ hr Q12H IVPB Last administered on 11/06/16 09:15; Admin Dose 83.333 MLS/HR; Start 10/29/16 at 20: 00 Meropenem 100 ml @ 200 mls/hr Q8 IVPB Last administered on 11/06/16 14:13; Admin Dose 200 MLS/HR; Start 10/30/16 at 14:00 Caspofungin/ Sodium Chloride (Cancidas/NS) 250 ml @ 250 mls/hr Q24H IVPB Last administered on 11/06/16 12:28; Admin Dose 250 MLS/HR; Start 10/31/16 at 13:00 Methadone HCl (Methadone) 10 mg Q6H PRN PO PAIN Last administered on 10/30/16 13:13; Admin Dose 10 MG; Start 10/30/16 at 12:00 Apixaban (Eliquis) 5 mg BID GTB Last administered on 11/06/16 09:17; Admin Dose 5 MG; Start 10/31/16 at 21:00 Zolpidem Tartrate (Ambien) 10 mg HS PRN PEG INSOMNIA Last administered on 20:43; Admin Dose 10 MG; Start 11/01/16 at 03:00 Furosemide (Lasix) 20 mg DAILY PO Last administered on 11/06/16 09:17; Admin Dose 20 MG; Start 11/03/16 at 09:00 Lisinopril (Zestril) 5 mg BID PO Last administered on 11/06/16 09:17; Admin Dose 5 MG; Start 11/04/16 at 21:00 LAURA OJEDA NP Nov 06, 2016 16:12
--- NOTE | 2016-11-06 17:31 | PN ---
Date/Time of Note Date/Time of Note DATE: 11/06/16 TIME: 17:28 Assessment/Plan VTE Prophylaxis VTE Prophylaxis Intervention: SCD's Lines/Catheters [facility] P[facility] Line Central line still needed: Yes Urinary Cath still in place: No Assessment/Plan Chief Complaint/Hosp Course ASSESSMENT AND PLAN: - Acute respiratory failure patient, resolved. Dr. Simons is following the patient from pulmonology consultation. - Right-sided pneumonia with complicated parapneumonic effusion, status post thoracentesis, s/p R chest tube placement and and subsequent removal of chest tube, s/p treatment with abx. - Acute pulmonary emboli. Continue patient on Lovenox. 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 Dr. Luna is following from cardiology standpoint. - Encephalopathy, likely toxic metabolic, resolving. Continue to monitor. - Sepsis secondary to #2, resolved. - Status post tracheostomy by Dr. Marino on 10/20. - Status post G-tube placement by Dr. Galarza on 10/20 Await SNIF placement Continue Pepcid for peptic ulcer disease prophylaxis. Further recommendations based on clinical course. Plan of care discussed with Dr. Patel. Problems: Subjective 24 Hr Interval Summary Free Text/Dictation Patient is tracheostomy tube cool aerosol mist via T-tube, patient looks comfortable, no fever. Exam/Review of Systems Vital Signs Vitals Vital Signs Date Time Temp Pulse Resp B/P Pulse Ox O2 Delivery O2 Flow Rate FiO2 11/06/16 17:23 5.0 11/06/16 16:19 68 11/06/16 15:23 98.5 18 113/73 96 11/06/16 14:40 35 Intake and Output 11/05/16 11/05/16 11/06/16 15:00 23:00 07:00 Intake Total 1200 ml 900 ml Output Total 2000 ml 1250 ml Balance -800 ml -350 ml Exam GENERAL: Well-developed, well-nourished male, tracheostomy to vent support, awake alert HEENT: Tracheostomy LUNGS: clear. HEART: Normal S1, S2. No murmurs, gallops, clicks, rubs noted. ABDOMEN: Round, soft, nondistended, nontender. Bowel sounds present. EXTREMITIES: No edema, clubbing, cyanosis. Pulses equal bilaterally 2+. SKIN: There is no rash. NEUROLOGIC: Awake alert Results Result Diagram: 11/06/16 0632 11/06/16 0632 Results 24 hrs Laboratory Tests Test 11/06/16 06:32 Anion Gap 14 Basophils # 0.1 Basophils % 0.7 Blood Morphology Comment Blood Urea Nitrogen 16 Calcium Level 9.2 Carbon Dioxide Level 32 H Chloride Level 103 Creatinine 0.52 L Eosinophils # 1.1 H Eosinophils % 10.1 H Glucose Level 90 Hematocrit 37.2 L Hemoglobin 12.3 L Lymphocytes # 1.8 Lymphocytes % 16.8 Magnesium Level 2.0 Mean Corpuscular Hemoglobin 29.2 Mean Corpuscular Hemoglobin Concent 33.1 Mean Corpuscular Volume 88.0 Mean Platelet Volume 9.1 Monocytes # 1.0 H Monocytes % 9.9 Neutrophils # 6.6 Neutrophils % 62.5 Nucleated Red Blood Cells # 0.0 Nucleated Red Blood Cells % 0.0 Platelet Count 631 H Potassium Level 3.8 Red Blood Count 4.22 L Red Cell Distribution Width 15.7 H Sodium Level 145 H White Blood Count 10.5 Medications Medications Current Medications Ondansetron HCl (Zofran Inj) 4 mg Q6H PRN IV NAUSEA AND/OR VOMITING; Start at 18:00 Morphine Sulfate (morphine) 2 mg Q4H PRN IV PAIN LEVEL 7-10 Last administered on 10/30/16 03:33; Admin Dose 2 MG; Start 09/15/16 at 18:00 Haloperidol (Haldol) 5 mg Q6H PRN IM AGITATION Last administered on 10/30/16 02:05; Admin Dose 5 MG; Start 09/18/16 at 11:30 Metoclopramide HCl (Reglan) 10 mg Q12 IV Last administered on 11/06/16 09:17; Admin Dose 10 MG; Start 09/24/16 at 11:30 Acetaminophen (Tylenol Liquid) 650 mg Q4H PRN NGT PAIN AND OR ELEVATED TEMP Last administered on 10/30/16 21:59; Admin Dose 650 MG; Start 09/28/16 at 13:30 Collagenase (Santyl) 1 applic DAILY TOP Last administered on 11/06/16 09:18; Admin Dose 1 APPLIC; Start 10/08/16 at 20:00 Nystatin (Nystatin Powder) 1 applic BID TOP Last administered on 11/06/16 09: 18; Admin Dose 1 APPLIC; Start 10/08/16 at 21:00 Collagenase (Santyl) 1 applic PRN PRN TOP WOUND CARE Last administered on 07:54; Admin Dose 1 APPLIC; Start 10/08/16 at 17:30 Lorazepam (Ativan) 2 mg Q2H PRN IV AGITATION Last administered on 11/06/16 06: 18; Admin Dose 2 MG; Start 10/16/16 at 16:00 Fentanyl (Duragesic 50 Mcg/Hr Patch) 1 patch Q72H TRANSDERM Last administered on 11/05/16 12:42; Admin Dose 1 PATCH; Start 10/21/16 at 11:30 Lorazepam (Ativan) 2 mg Q2H PRN PEG AGITATION Last administered on 10/25/16 18: 43; Admin Dose 2 MG; Start 10/25/16 at 15:00 Docusate Sodium (Colace Liquid Cup) 200 mg BID PEG Last administered on 09:15; Admin Dose 200 MG; Start 10/25/16 at 21:00; Stop 11/15/16 at 08:00 Famotidine (Pepcid) 20 mg DAILY PO Last administered on 11/06/16 09:17; Admin Dose 20 MG; Start 10/26/16 at 09:00 Polyethylene Glycol 17 gm 17 gm DAILY PRN GTB CONSTIPATION; Start 10/27/16 at 13 :30 Vancomycin HCl 1.5 gm/Sodium Chloride 250 ml @ 83.333 mls/ hr Q12H IVPB Last administered on 11/06/16 09:15; Admin Dose 83.333 MLS/HR; Start 10/29/16 at 20: 00 Meropenem 100 ml @ 200 mls/hr Q8 IVPB Last administered on 11/06/16 14:13; Admin Dose 200 MLS/HR; Start 10/30/16 at 14:00 Caspofungin/ Sodium Chloride (Cancidas/NS) 250 ml @ 250 mls/hr Q24H IVPB Last administered on 11/06/16 12:28; Admin Dose 250 MLS/HR; Start 10/31/16 at 13:00 Methadone HCl (Methadone) 10 mg Q6H PRN PO PAIN Last administered on 10/30/16 13:13; Admin Dose 10 MG; Start 10/30/16 at 12:00 Apixaban (Eliquis) 5 mg BID GTB Last administered on 11/06/16 09:17; Admin Dose 5 MG; Start 10/31/16 at 21:00 Zolpidem Tartrate (Ambien) 10 mg HS PRN PEG INSOMNIA Last administered on 20:43; Admin Dose 10 MG; Start 11/01/16 at 03:00 Furosemide (Lasix) 20 mg DAILY PO Last administered on 11/06/16 09:17; Admin Dose 20 MG; Start 11/03/16 at 09:00 Lisinopril (Zestril) 5 mg BID PO Last administered on 11/06/16 09:17; Admin Dose 5 MG; Start 11/04/16 at 21:00 JAN ZHANG Nov 06, 2016 17:30
[2016-11-07] VITALS (14 sets, daily range): BP systolic 106–119; BP diastolic 64–79; PULSE 68–100; RESP 18–20
[2016-11-07] MEDS: LORAZEPAM 2 MG INJ IV PRN ×3 (06:51→22:49)
[2016-11-07 06:59] LABS: BASOPHILS % 0.3 % (0.0-2.0); EOSINOPHILS # 1.9 10^3/ul (0.0-0.5); HEMATOCRIT 36.9 % (42.0-52.0); HEMOGLOBIN 12.2 g/dl (14.0-18.0); LYMPHOCYTES # 1.6 10^3/ul (0.8-2.9); LYMPHOCYTES % 12.2 % (15.0-51.0); MEAN CORPUSCULAR HEMOGLOBIN 28.9 pg (29.0-33.0); MEAN CORPUSCULAR HGB CONC 33.1 g/dl (32.0-37.0); MEAN CORPUSCULAR VOLUME 87.4 fl (82.0-101.0); MEAN PLATELET VOLUME 8.3 fl (7.4-10.4); NEUTROPHIL # 8.3 10^3/ul (1.6-7.5); NEUTROPHILS % 64.5 % (39.0-77.0); PLATELET COUNT 605 10^3/UL (140-440); RED BLOOD COUNT 4.22 10^6/ul (4.70-6.10); RED CELL DISTRIBUTION WIDTH 15.8 % (11.5-14.5); UNCORRECTED WBC 12.9 10^3/ul (4.8-10.8); WHITE BLOOD COUNT 12.9 10^3/ul (4.8-10.8)
[2016-11-07 07:01] LABS: CONDITION 1; LH ANALYZER COMMENTS 1
[2016-11-07 07:23] LABS: CREATININE 0.49 mg/dl (0.61-1.24)
[2016-11-07 07:24] LABS: CALCIUM 9.2 mg/dl (8.4-10.2)
[2016-11-07] MEDS: DOCUSATE SODIUM 10 MG/ML (10ML CUP) PEG SCH ×2 (09:00→21:00)
[2016-11-07] MEDS: APIXABAN 5 MG TABLET GTB SCH ×2 (09:21→21:17)
[2016-11-07] MEDS: METOCLOPRAMIDE 10 MG INJ IV SCH ×2 (09:21→21:00)
[2016-11-07] MEDS: FUROSEMIDE 20 MG TAB PO SCH (09:22)
[2016-11-07] MEDS: LISINOPRIL 5 MG TAB PO SCH ×2 (09:23→21:18)
[2016-11-07] MEDS: NYSTATIN 30 GM POWDER BTL TOP SCH ×2 (09:24→21:19)
[2016-11-07] MEDS: COLLAGENASE 30 GM TUBE TOP SCH (09:24)
[2016-11-07] MEDS: FAMOTIDINE 20 MG TAB PO SCH (09:28)
--- NOTE | 2016-11-07 09:40 | PN ---
Date/Time of Note Date/Time of Note DATE: 11/07/16 TIME: 09:40 Assessment/Plan VTE Prophylaxis VTE Prophylaxis Intervention: other Lines/Catheters IV [facility]ter Type (from [facility]): PICC Line Central line still needed: Yes Urinary Cath still in place: No Assessment/Plan Chief Complaint/Hosp Course - Acute respiratory failure patient, resolved. Dr. Simons is following the patient from pulmonology consultation. - Right-sided pneumonia with complicated parapneumonic effusion, status post thoracentesis, s/p R chest tube placement and and subsequent removal of chest tube, s/p treatment with abx. - Acute pulmonary emboli. Continue patient on Lovenox. 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 Dr. Luna is following from cardiology standpoint. - Encephalopathy, likely toxic metabolic, resolving. Continue to monitor. - Sepsis secondary to #2, resolved. - Status post tracheostomy by Dr. Marino on 10/20. - Status post G-tube placement by Dr. Galarza on 10/20 Problems: Subjective 24 Hr Interval Summary Free Text/Dictation Patient has no complaints Exam/Review of Systems Vital Signs Vitals Vital Signs Date Time Temp Pulse Resp B/P Pulse Ox O2 Delivery O2 Flow Rate FiO2 11/07/16 09:24 79 11/07/16 08:01 98.1 20 115/67 98 11/07/16 05:38 8.0 35 11/07/16 01:34 T Tube Intake and Output 11/06/16 11/06/16 11/07/16 15:00 23:00 07:00 Intake Total 260 ml 1150 ml 800 ml Output Total 1100 ml 1200 ml Balance 260 ml 50 ml -400 ml Exam Constitutional: well developed Head: atraumatic, normocephalic Neck: supple Respiratory: diminished breath sounds Cardiovascular: regular rate and rhythm Gastrointestinal: non-tender, soft Results Result Diagram: 11/07/16 0650 11/07/16 0650 Results 24 hrs Laboratory Tests Test 11/06/16 20:03 11/07/16 06:50 Bedside Glucose 83 Anion Gap 13 Basophils # 0.0 Basophils % 0.3 Blood Morphology Comment Blood Urea Nitrogen 19 Calcium Level 9.2 Carbon Dioxide Level 30 Chloride Level 100 Creatinine 0.49 L Eosinophils # 1.9 H Eosinophils % 15.0 H Glucose Level 85 Hematocrit 36.9 L Hemoglobin 12.2 L Lymphocytes # 1.6 Lymphocytes % 12.2 L Mean Corpuscular Hemoglobin 28.9 L Mean Corpuscular Hemoglobin Concent 33.1 Mean Corpuscular Volume 87.4 Mean Platelet Volume 8.3 Monocytes # 1.0 H Monocytes % 8.0 Neutrophils # 8.3 H Neutrophils % 64.5 Nucleated Red Blood Cells # 0.0 Nucleated Red Blood Cells % 0.0 Platelet Count 605 H Potassium Level 4.0 Red Blood Count 4.22 L Red Cell Distribution Width 15.8 H Sodium Level 139 Vancomycin Level Trough 19.9 White Blood Count 12.9 #H Medications Medications Current Medications Ondansetron HCl (Zofran Inj) 4 mg Q6H PRN IV NAUSEA AND/OR VOMITING; Start at 18:00 Morphine Sulfate (morphine) 2 mg Q4H PRN IV PAIN LEVEL 7-10 Last administered on 10/30/16 03:33; Admin Dose 2 MG; Start 09/15/16 at 18:00 Haloperidol (Haldol) 5 mg Q6H PRN IM AGITATION Last administered on 10/30/16 02:05; Admin Dose 5 MG; Start 09/18/16 at 11:30 Metoclopramide HCl (Reglan) 10 mg Q12 IV Last administered on 11/07/16 09:21; Admin Dose 10 MG; Start 09/24/16 at 11:30 Acetaminophen (Tylenol Liquid) 650 mg Q4H PRN NGT PAIN AND OR ELEVATED TEMP Last administered on 10/30/16 21:59; Admin Dose 650 MG; Start 09/28/16 at 13:30 Collagenase (Santyl) 1 applic DAILY TOP Last administered on 11/07/16 09:24; Admin Dose 1 APPLIC; Start 10/08/16 at 20:00 Nystatin (Nystatin Powder) 1 applic BID TOP Last administered on 11/07/16 09: 24; Admin Dose 1 APPLIC; Start 10/08/16 at 21:00 Collagenase (Santyl) 1 applic PRN PRN TOP WOUND CARE Last administered on 07:54; Admin Dose 1 APPLIC; Start 10/08/16 at 17:30 Lorazepam (Ativan) 2 mg Q2H PRN IV AGITATION Last administered on 11/07/16 06: 51; Admin Dose 2 MG; Start 10/16/16 at 16:00 Fentanyl (Duragesic 50 Mcg/Hr Patch) 1 patch Q72H TRANSDERM Last administered on 11/05/16 12:42; Admin Dose 1 PATCH; Start 10/21/16 at 11:30 Lorazepam (Ativan) 2 mg Q2H PRN PEG AGITATION Last administered on 10/25/16 18: 43; Admin Dose 2 MG; Start 10/25/16 at 15:00 Docusate Sodium (Colace Liquid Cup) 200 mg BID PEG Last administered on 20:42; Admin Dose 200 MG; Start 10/25/16 at 21:00; Stop 11/15/16 at 08:00 Famotidine (Pepcid) 20 mg DAILY PO Last administered on 11/07/16 09:28; Admin Dose 20 MG; Start 10/26/16 at 09:00 Polyethylene Glycol (Miralax) 17 gm DAILY PRN GTB CONSTIPATION; Start 10/27/16 at 13:30 Methadone HCl (Methadone) 10 mg Q6H PRN PO PAIN Last administered on 10/30/16 13:13; Admin Dose 10 MG; Start 10/30/16 at 12:00 Apixaban (Eliquis) 5 mg BID GTB Last administered on 11/07/16 09:21; Admin Dose 5 MG; Start 10/31/16 at 21:00 Zolpidem Tartrate (Ambien) 10 mg HS PRN PEG INSOMNIA Last administered on 20:43; Admin Dose 10 MG; Start 11/01/16 at 03:00 Furosemide (Lasix) 20 mg DAILY PO Last administered on 11/07/16 09:22; Admin Dose 20 MG; Start 11/03/16 at 09:00 Lisinopril 5 mg 5 mg BID PO Last administered on 11/07/16 09:23; Admin Dose 5 MG; Start 11/04/16 at 21:00 Vancomycin HCl/ Sodium Chloride (Vancocin/NS) 250 ml @ 83.333 mls/ hr Q12H IVPB ; Start 11/07/16 at 11:00 DREW MOLINA Nov 07, 2016 09:40
[2016-11-07] MEDS: VANCOMYCIN 1.25 GM in SOD CHLORIDE 0.9% 250 ML IVPB SCH ×2 (11:17→22:54)
--- NOTE | 2016-11-07 12:09 | CONS ---
Date/Time of Note Date/Time of Note DATE: 11/07/16 TIME: 12:05 Assessment/Plan Assessment/Plan Chief Complaint/Hosp Course assessment/impression - h/o recurrent sepsis with early septic shock, resolved. - skin ulcer under the trach, wound culture is grew CoNS and VRE (likely colonizer) - Staph bacteremia d/t line sepsis; central line cath tip Cx grew CoNS 10/30 - s/p post-op fever - s/p pneumonia with parapneumonic effusion. Could be started as CAP, other considerations include aspiration PNA. - h/o recurrent right pleural effusion. s/p diagnostic thoracentesis on 09/22/16. It showed glu=74 pro <2, [id number]. No malignancy on cytology. s/p repeat thoracentesis 10/01/16, no malignancy on cytology. R chest tube placed 10/07/16 and dc'd on 10/31/16 - VDRF s/p trach and PEG placement - h/o PE, LLE DVT and R cephalic vein thrombosis - Q TB gold indeterminate status; PPD negative - acute decompensated systolic CHF, severe biventricular cardiomyopathy with EF 20% - tox screen positive for meth and benzo (per EMR) - s/p transaminitis, possibly shock liver, improved - s/p drug rash likely d/t pip/tazo, resolved - antimicrobial history: vanco (09/19/16-10/04/16, 10/08/16-10/10/16), azithromycin (10/02/16-10/06/16), pip/tazo (09/29/16-10/08/16), Tamiflu (10/02/16-), ashlyn (10/08-10/15/16) - negative results: rapid influenza screen, PPD, legionella antigen, mycoplasma pneumoniae, chlamydia pneumoniae serology, and respiratory viral panel; AFB smear (09/29, 09/30, 10/01, 10/08, 10/13) recommendations: - continue vancomycin (10/29/2016-) for staph bacteremia, I recommend 10 days counting from the date of discontinuation of his catheter (10/30/2016-11/09/2016) Problems: Consultation Date/Type/Reason Admit Date/Time Sep 15, 2016 at 16:54 Initial Consult Date 09/29/16 Type of Consultation: Infectious Disease Referring Provider: JAN ZHANG 24 HR Interval Summary Subjective hx not possible: other (wants to go home) Constitutional: no complaints Detailed Summary Eyes: no complaints ENT: other (trach) Respiratory: no complaints Cardiovascular: no complaints Gastrointestinal: no complaints Genitourinary: no complaints Exam/Review of Systems Vital Signs Vitals Vital Signs Date Time Temp Pulse Resp B/P Pulse Ox O2 Delivery O2 Flow Rate FiO2 11/07/16 11:47 98.1 74 20 111/73 97 11/07/16 09:15 Aerosol 5.0 28 T Tube Intake and Output 11/06/16 11/06/16 11/07/16 15:00 23:00 07:00 Intake Total 260 ml 1150 ml 800 ml Output Total 1100 ml 1200 ml Balance 260 ml 50 ml -400 ml Exam Constitutional: frail, well developed, No distress Psych: no complaints Head: atraumatic, normocephalic Eyes: nl conjunctiva, nl lids ENMT: nl external ears & nose, nl nasal mucosa & septum Neck: other (trach) Respiratory: crackles/rales Cardiovascular: nl pulses, regular rate and rhythm Gastrointestinal: non-tender, other (GT), soft Musculoskeletal: nl extremities to inspection Extremities: No edema Neurological: lethargic Skin: nl turgor Results Result Diagram: 11/07/16 0650 11/07/16 0650 Results 24 hrs Laboratory Tests Test 11/06/16 20:03 11/07/16 06:50 Bedside Glucose 83 Anion Gap 13 Basophils # 0.0 Basophils % 0.3 Blood Morphology Comment Blood Urea Nitrogen 19 Calcium Level 9.2 Carbon Dioxide Level 30 Chloride Level 100 Creatinine 0.49 L Eosinophils # 1.9 H Eosinophils % 15.0 H Glucose Level 85 Hematocrit 36.9 L Hemoglobin 12.2 L Lymphocytes # 1.6 Lymphocytes % 12.2 L Mean Corpuscular Hemoglobin 28.9 L Mean Corpuscular Hemoglobin Concent 33.1 Mean Corpuscular Volume 87.4 Mean Platelet Volume 8.3 Monocytes # 1.0 H Monocytes % 8.0 Neutrophils # 8.3 H Neutrophils % 64.5 Nucleated Red Blood Cells # 0.0 Nucleated Red Blood Cells % 0.0 Platelet Count 605 H Potassium Level 4.0 Red Blood Count 4.22 L Red Cell Distribution Width 15.8 H Sodium Level 139 Vancomycin Level Trough 19.9 White Blood Count 12.9 #H Medications Medications Current Medications Ondansetron HCl (Zofran Inj) 4 mg Q6H PRN IV NAUSEA AND/OR VOMITING; Start at 18:00 Morphine Sulfate (morphine) 2 mg Q4H PRN IV PAIN LEVEL 7-10 Last administered on 10/30/16 03:33; Admin Dose 2 MG; Start 09/15/16 at 18:00 Haloperidol (Haldol) 5 mg Q6H PRN IM AGITATION Last administered on 10/30/16 02:05; Admin Dose 5 MG; Start 09/18/16 at 11:30 Metoclopramide HCl (Reglan) 10 mg Q12 IV Last administered on 11/07/16 09:21; Admin Dose 10 MG; Start 09/24/16 at 11:30 Acetaminophen (Tylenol Liquid) 650 mg Q4H PRN NGT PAIN AND OR ELEVATED TEMP Last administered on 10/30/16 21:59; Admin Dose 650 MG; Start 09/28/16 at 13:30 Collagenase (Santyl) 1 applic DAILY TOP Last administered on 11/07/16 09:24; Admin Dose 1 APPLIC; Start 10/08/16 at 20:00 Nystatin (Nystatin Powder) 1 applic BID TOP Last administered on 11/07/16 09: 24; Admin Dose 1 APPLIC; Start 10/08/16 at 21:00 Collagenase (Santyl) 1 applic PRN PRN TOP WOUND CARE Last administered on 07:54; Admin Dose 1 APPLIC; Start 10/08/16 at 17:30 Lorazepam (Ativan) 2 mg Q2H PRN IV AGITATION Last administered on 11/07/16 06: 51; Admin Dose 2 MG; Start 10/16/16 at 16:00 Fentanyl (Duragesic 50 Mcg/Hr Patch) 1 patch Q72H TRANSDERM Last administered on 11/05/16 12:42; Admin Dose 1 PATCH; Start 10/21/16 at 11:30 Lorazepam (Ativan) 2 mg Q2H PRN PEG AGITATION Last administered on 10/25/16 18: 43; Admin Dose 2 MG; Start 10/25/16 at 15:00 Docusate Sodium (Colace Liquid Cup) 200 mg BID PEG Last administered on 20:42; Admin Dose 200 MG; Start 10/25/16 at 21:00; Stop 11/15/16 at 08:00 Famotidine (Pepcid) 20 mg DAILY PO Last administered on 11/07/16 09:28; Admin Dose 20 MG; Start 10/26/16 at 09:00 Polyethylene Glycol (Miralax) 17 gm DAILY PRN GTB CONSTIPATION; Start 10/27/16 at 13:30 Methadone HCl (Methadone) 10 mg Q6H PRN PO PAIN Last administered on 10/30/16 13:13; Admin Dose 10 MG; Start 10/30/16 at 12:00 Apixaban (Eliquis) 5 mg BID GTB Last administered on 11/07/16 09:21; Admin Dose 5 MG; Start 10/31/16 at 21:00 Zolpidem Tartrate (Ambien) 10 mg HS PRN PEG INSOMNIA Last administered on 20:43; Admin Dose 10 MG; Start 11/01/16 at 03:00 Furosemide (Lasix) 20 mg DAILY PO Last administered on 11/07/16 09:22; Admin Dose 20 MG; Start 11/03/16 at 09:00 Lisinopril 5 mg 5 mg BID PO Last administered on 11/07/16 09:23; Admin Dose 5 MG; Start 11/04/16 at 21:00 Vancomycin HCl/ Sodium Chloride (Vancocin/NS) 250 ml @ 83.333 mls/ hr Q12H IVPB Last administered on 11/07/16 11:17; Admin Dose 83.333 MLS/HR; Start at 11:00 MIGUEL ERNST M.D. Nov 07, 2016 12:09
--- NOTE | 2016-11-07 17:14 | PN ---
Date/Time of Note Date/Time of Note DATE: 11/07/16 TIME: 17:13 Assessment/Plan Lines/Catheters IV Catheter Type (from Nrsg): PICC Line Tang in Place (from Nrsg): No Assessment/Plan Chief Complaint/Hosp Course IMPRESSION 1. Pulmonary embolism. 2. Pneumonia. 3 Pleural effusion RECOMMENDATIONS: SP CT placement SP Trach will continue vent support trach care CT DCed CXR with no PTX Problems: Subjective 24 Hr Interval Summary Constitutional: improved Pain Control: mild Exam/Review of Systems Vital Signs Vitals Vital Signs Date Time Temp Pulse Resp B/P Pulse Ox O2 Delivery O2 Flow Rate FiO2 11/07/16 17:08 100 11/07/16 16:07 22 95 Aerosol 5.0 28 T Tube 11/07/16 15:36 98.5 113/67 Intake and Output 11/06/16 11/06/16 11/07/16 15:00 23:00 07:00 Intake Total 260 ml 1150 ml 800 ml Output Total 1100 ml 1200 ml Balance 260 ml 50 ml -400 ml Exam Neck: non-tender, supple Respiratory: clear to auscultation, normal air movement Cardiovascular: nl pulses, regular rate and rhythm Gastrointestinal: nl liver, spleen, non-tender, soft Results Result Diagram: 11/07/16 0650 11/07/16 0650 YOUNG HAY MD Nov 07, 2016 17:14
--- NOTE | 2016-11-07 19:46 | CONS ---
Date/Time of Note Date/Time of Note DATE: 11/07/16 TIME: 19:45 Consult Date/Type/Reason Admit Date/Time Sep 15, 2016 at 16:54 Type of Consultation: Pulm Ordering Provider: JAN ZHANG Subjective No events. On vent. Objective Vital Signs Date Time Temp Pulse Resp B/P Pulse Ox O2 Delivery O2 Flow Rate FiO2 11/07/16 19:33 98.7 73 18 106/64 98 11/07/16 16:07 Aerosol 5.0 28 T Tube Intake and Output 11/06/16 11/06/16 11/07/16 15:00 23:00 07:00 Intake Total 260 ml 1150 ml 800 ml Output Total 1100 ml 1200 ml Balance 260 ml 50 ml -400 ml HEENT: Neck supple; no JVD; no LAD, trach site clear CVS: RRR, S1 and S2 CHEST: Clear ABD: Soft, NT, + BS EXT: No c/c; + edema Results/Medications Result Diagram: 11/07/16 0650 11/07/16 0650 Results 24 hrs Laboratory Tests Test 11/06/16 20:03 11/07/16 06:50 Bedside Glucose 83 Anion Gap 13 Basophils # 0.0 Basophils % 0.3 Blood Morphology Comment Blood Urea Nitrogen 19 Calcium Level 9.2 Carbon Dioxide Level 30 Chloride Level 100 Creatinine 0.49 L Eosinophils # 1.9 H Eosinophils % 15.0 H Glucose Level 85 Hematocrit 36.9 L Hemoglobin 12.2 L Lymphocytes # 1.6 Lymphocytes % 12.2 L Mean Corpuscular Hemoglobin 28.9 L Mean Corpuscular Hemoglobin Concent 33.1 Mean Corpuscular Volume 87.4 Mean Platelet Volume 8.3 Monocytes # 1.0 H Monocytes % 8.0 Neutrophils # 8.3 H Neutrophils % 64.5 Nucleated Red Blood Cells # 0.0 Nucleated Red Blood Cells % 0.0 Platelet Count 605 H Potassium Level 4.0 Red Blood Count 4.22 L Red Cell Distribution Width 15.8 H Sodium Level 139 Vancomycin Level Trough 19.9 White Blood Count 12.9 #H Medications Current Medications Ondansetron HCl (Zofran Inj) 4 mg Q6H PRN IV NAUSEA AND/OR VOMITING; Start at 18:00 Morphine Sulfate (morphine) 2 mg Q4H PRN IV PAIN LEVEL 7-10 Last administered on 10/30/16 03:33; Admin Dose 2 MG; Start 09/15/16 at 18:00 Haloperidol (Haldol) 5 mg Q6H PRN IM AGITATION Last administered on 10/30/16 02:05; Admin Dose 5 MG; Start 09/18/16 at 11:30 Metoclopramide HCl (Reglan) 10 mg Q12 IV Last administered on 11/07/16 09:21; Admin Dose 10 MG; Start 09/24/16 at 11:30 Acetaminophen (Tylenol Liquid) 650 mg Q4H PRN NGT PAIN AND OR ELEVATED TEMP Last administered on 10/30/16 21:59; Admin Dose 650 MG; Start 09/28/16 at 13:30 Collagenase (Santyl) 1 applic DAILY TOP Last administered on 11/07/16 09:24; Admin Dose 1 APPLIC; Start 10/08/16 at 20:00 Nystatin (Nystatin Powder) 1 applic BID TOP Last administered on 11/07/16 09: 24; Admin Dose 1 APPLIC; Start 10/08/16 at 21:00 Collagenase (Santyl) 1 applic PRN PRN TOP WOUND CARE Last administered on 07:54; Admin Dose 1 APPLIC; Start 10/08/16 at 17:30 Lorazepam (Ativan) 2 mg Q2H PRN IV AGITATION Last administered on 11/07/16 18: 45; Admin Dose 2 MG; Start 10/16/16 at 16:00 Fentanyl (Duragesic 50 Mcg/Hr Patch) 1 patch Q72H TRANSDERM Last administered on 11/05/16 12:42; Admin Dose 1 PATCH; Start 10/21/16 at 11:30 Lorazepam (Ativan) 2 mg Q2H PRN PEG AGITATION Last administered on 10/25/16 18: 43; Admin Dose 2 MG; Start 10/25/16 at 15:00 Docusate Sodium (Colace Liquid Cup) 200 mg BID PEG Last administered on 20:42; Admin Dose 200 MG; Start 10/25/16 at 21:00; Stop 11/15/16 at 08:00 Famotidine (Pepcid) 20 mg DAILY PO Last administered on 11/07/16 09:28; Admin Dose 20 MG; Start 10/26/16 at 09:00 Polyethylene Glycol (Miralax) 17 gm DAILY PRN GTB CONSTIPATION; Start 10/27/16 at 13:30 Methadone HCl (Methadone) 10 mg Q6H PRN PO PAIN Last administered on 10/30/16 13:13; Admin Dose 10 MG; Start 10/30/16 at 12:00 Apixaban (Eliquis) 5 mg BID GTB Last administered on 11/07/16 09:21; Admin Dose 5 MG; Start 10/31/16 at 21:00 Zolpidem Tartrate (Ambien) 10 mg HS PRN PEG INSOMNIA Last administered on 20:43; Admin Dose 10 MG; Start 11/01/16 at 03:00 Furosemide (Lasix) 20 mg DAILY PO Last administered on 11/07/16 09:22; Admin Dose 20 MG; Start 11/03/16 at 09:00 Lisinopril 5 mg 5 mg BID PO Last administered on 11/07/16 09:23; Admin Dose 5 MG; Start 11/04/16 at 21:00 Vancomycin HCl/ Sodium Chloride (Vancocin/NS) 250 ml @ 83.333 mls/ hr Q12H IVPB Last administered on 11/07/16 11:17; Admin Dose 83.333 MLS/HR; Start at 11:00 Assessment/Plan Additional Assessment/Plan IMP: 1. VDRF--> weaned to trach collar 2. Right-sided pneumonia with complicated parapneumonic effusion, status post VATS 3. Acute pulmonary emboli 4. 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 5. Encephalopathy RECS: 1. Continue trach collar 2. TF's/free H2O 3. D/C planning NAV DAVIDSON MD Nov 07, 2016 19:46
[2016-11-07] MEDS: ACETAMINOPHEN 650MG/20.3ML CUP NGT PRN (22:47)
[2016-11-08] VITALS (13 sets, daily range): BP systolic 100–124; BP diastolic 60–74; PULSE 66–87; RESP 18–20
[2016-11-08] MEDS: LORAZEPAM 2 MG INJ IV PRN ×3 (00:52→20:44)
[2016-11-08] MEDS: ZOLPIDEM 5 MG TAB PEG PRN ×2 (01:57→21:11)
[2016-11-08] MEDS: DOCUSATE SODIUM 10 MG/ML (10ML CUP) PEG SCH ×2 (09:05→20:43)
[2016-11-08] MEDS: APIXABAN 5 MG TABLET GTB SCH ×2 (09:05→20:41)
[2016-11-08] MEDS: METOCLOPRAMIDE 10 MG INJ IV SCH ×2 (09:05→20:48)
[2016-11-08] MEDS: FAMOTIDINE 20 MG TAB PO SCH (09:06)
[2016-11-08] MEDS: LISINOPRIL 5 MG TAB PO SCH ×2 (09:08→20:42)
[2016-11-08] MEDS: FUROSEMIDE 20 MG TAB PO SCH (09:09)
[2016-11-08] MEDS: NYSTATIN 30 GM POWDER BTL TOP SCH ×2 (09:13→20:50)
[2016-11-08] MEDS: COLLAGENASE 30 GM TUBE TOP SCH (09:13)
--- NOTE | 2016-11-08 11:27 | PN ---
Date/Time of Note Date/Time of Note DATE: 11/08/16 TIME: 11:26 Assessment/Plan VTE Prophylaxis VTE Prophylaxis Intervention: other Lines/Catheters IV Catheter Type (from Nrs): PICC Line Central line still needed: Yes Urinary Cath still in place: No Assessment/Plan Chief Complaint/Hosp Course - Acute respiratory failure patient, resolved. Dr. Simons is following the patient from pulmonology consultation. - Right-sided pneumonia with complicated parapneumonic effusion, status post thoracentesis, s/p R chest tube placement and and subsequent removal of chest tube, s/p treatment with abx. - Acute pulmonary emboli. Continue patient on Lovenox. 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 Dr. Luna is following from cardiology standpoint. - Encephalopathy, likely toxic metabolic, resolving. Continue to monitor. - Sepsis secondary to #2, resolved. - Status post tracheostomy by Dr. Marino on 10/20. - Status post G-tube placement by Dr. Galarza on 10/20 Problems: Subjective 24 Hr Interval Summary Free Text/Dictation Patient remains sedated and ventilated via trach, appears comfortable Exam/Review of Systems Vital Signs Vitals Vital Signs Date Time Temp Pulse Resp B/P Pulse Ox O2 Delivery O2 Flow Rate FiO2 11/08/16 09:12 102/60 11/08/16 08:27 70 11/08/16 07:57 98.2 20 96 11/08/16 06:35 T Tube 11/08/16 03:13 5.0 28 Intake and Output 11/07/16 11/07/16 11/08/16 15:00 23:00 07:00 Intake Total 250 ml 800 ml 1050 ml Output Total 1200 ml 710 ml Balance 250 ml -400 ml 340 ml Exam Constitutional: well developed Head: atraumatic, normocephalic Neck: supple Respiratory: diminished breath sounds Cardiovascular: regular rate and rhythm Gastrointestinal: non-tender, soft Results Result Diagram: 11/07/16 0650 11/07/16 0650 Medications Medications Current Medications Ondansetron HCl (Zofran Inj) 4 mg Q6H PRN IV NAUSEA AND/OR VOMITING; Start at 18:00 Morphine Sulfate (morphine) 2 mg Q4H PRN IV PAIN LEVEL 7-10 Last administered on 10/30/16t 03:33; Admin Dose 2 MG; Start 09/15/16 at 18:00 Haloperidol (Haldol) 5 mg Q6H PRN IM AGITATION Last administered on 10/30/16 02:05; Admin Dose 5 MG; Start 09/18/16 at 11:30 Metoclopramide HCl (Reglan) 10 mg Q12 IV Last administered on 11/08/16 09:05; Admin Dose 10 MG; Start 09/24/16 at 11:30 Acetaminophen (Tylenol Liquid) 650 mg Q4H PRN NGT PAIN AND OR ELEVATED TEMP Last administered on 11/07/16 22:47; Admin Dose 650 MG; Start 09/28/16 at 13:30 Collagenase (Santyl) 1 applic DAILY TOP Last administered on 11/08/16 09:13; Admin Dose 1 APPLIC; Start 10/08/16 at 20:00 Nystatin (Nystatin Powder) 1 applic BID TOP Last administered on 11/08/16 09: 13; Admin Dose 1 APPLIC; Start 10/08/16 at 21:00 Collagenase (Santyl) 1 applic PRN PRN TOP WOUND CARE Last administered on 07:54; Admin Dose 1 APPLIC; Start 10/08/16 at 17:30 Lorazepam (Ativan) 2 mg Q2H PRN IV AGITATION Last administered on 11/08/16 00: 52; Admin Dose 2 MG; Start 10/16/16 at 16:00 Fentanyl (Duragesic 50 Mcg/Hr Patch) 1 patch Q72H TRANSDERM Last administered on 11/05/16 12:42; Admin Dose 1 PATCH; Start 10/21/16 at 11:30 Lorazepam (Ativan) 2 mg Q2H PRN PEG AGITATION Last administered on 10/25/16 18: 43; Admin Dose 2 MG; Start 10/25/16 at 15:00 Docusate Sodium (Colace Liquid Cup) 200 mg BID PEG Last administered on 09:05; Admin Dose 200 MG; Start 10/25/16 at 21:00; Stop 11/15/16 at 08:00 Famotidine (Pepcid) 20 mg DAILY PO Last administered on 11/08/16 09:06; Admin Dose 20 MG; Start 10/26/16 at 09:00 Polyethylene Glycol (Miralax) 17 gm DAILY PRN GTB CONSTIPATION; Start 10/27/16 at 13:30 Methadone HCl (Methadone) 10 mg Q6H PRN PO PAIN Last administered on 10/30/16 13:13; Admin Dose 10 MG; Start 10/30/16 at 12:00 Apixaban (Eliquis) 5 mg BID GTB Last administered on 11/08/16 09:05; Admin Dose 5 MG; Start 10/31/16 at 21:00 Zolpidem Tartrate (Ambien) 10 mg HS PRN PEG INSOMNIA Last administered on 01:57; Admin Dose 10 MG; Start 11/01/16 at 03:00 Furosemide (Lasix) 20 mg DAILY PO Last administered on 11/08/16 09:09; Admin Dose 20 MG; Start 11/03/16 at 09:00 Lisinopril 5 mg 5 mg BID PO Last administered on 11/08/16 09:08; Admin Dose 5 MG; Start 11/04/16 at 21:00 Vancomycin HCl/ Sodium Chloride (Vancocin/NS) 250 ml @ 83.333 mls/ hr Q12H IVPB Last administered on 11/07/16 22:54; Admin Dose 83.333 MLS/HR; Start at 11:00 DREW MOLINA Nov 08, 2016 11:26
[2016-11-08] MEDS: FENTAnyl PATCH 50 MCG/HR TRANSDERM SCH (11:30)
[2016-11-08] MEDS: VANCOMYCIN 1.25 GM in SOD CHLORIDE 0.9% 250 ML IVPB SCH ×2 (11:53→23:46)
--- NOTE | 2016-11-08 13:39 | CONS ---
DANIELAMARISOL MOSER 11/08/16 1339: Date/Time of Note Date/Time of Note DATE: 11/08/16 TIME: 13:38 Assessment/Plan Assessment/Plan Additional Assessment/Plan - h/o recurrent sepsis with early septic shock, resolved. - skin ulcer under the trach, wound culture is grew CoNS and VRE (likely colonizer) - Staph bacteremia d/t line sepsis; central line cath tip Cx grew CoNS 10/30 - s/p post-op fever - s/p pneumonia with parapneumonic effusion. Could be started as CAP, other considerations include aspiration PNA. - h/o recurrent right pleural effusion. s/p diagnostic thoracentesis on 09/22/16. It showed glu=74 pro <2, MCF=[id number]. No malignancy on cytology. s/p repeat thoracentesis 10/01/16, no malignancy on cytology. R chest tube placed 10/07/16 and dc'd on 10/31/16 - VDRF s/p trach and PEG placement - h/o PE, LLE DVT and R cephalic vein thrombosis - Q TB gold indeterminate status; PPD negative - acute decompensated systolic CHF, severe biventricular cardiomyopathy with EF 20% - tox screen positive for meth and benzo (per EMR) - s/p transaminitis, possibly shock liver, improved - s/p drug rash likely d/t pip/tazo, resolved - antimicrobial history: vanco (09/19/16-10/04/16, 10/08/16-10/10/16), azithromycin (10/02/16-10/06/16), pip/tazo (09/29/16-10/08/16), Tamiflu (10/02/16-), ashlyn (10/08-10/15/16) - negative results: rapid influenza screen, PPD, legionella antigen, mycoplasma pneumoniae, chlamydia pneumoniae serology, and respiratory viral panel; AFB smear (09/29, 09/30, 10/01, 10/08, 10/13) recommendations: - continue vancomycin (10/29/2016-) for staph bacteremia, 10 days counting from the date of discontinuation of his catheter (10/30/2016-11/09/2016) d/w pt and Dr Hernandez Consultation Date/Type/Reason Admit Date/Time Sep 15, 2016 at 16:54 Initial Consult Date 09/29/16 Type of Consultation: ID Referring Provider: JAN ZHANG 24 HR Interval Summary Free Text/Dictation Alert, NAD. Good spirits. Denies chills, fever, sweats, n/v/d, SOB, cough, suprapubic pain Constitutional: improved, no complaints Exam/Review of Systems Vital Signs Vitals Vital Signs Date Time Temp Pulse Resp B/P Pulse Ox O2 Delivery O2 Flow Rate FiO2 11/08/16 12:23 66 11/08/16 11:33 97.5 20 111/67 98 11/08/16 06:35 T Tube 11/08/16 03:13 5.0 28 Intake and Output 11/07/16 11/07/16 11/08/16 15:00 23:00 07:00 Intake Total 250 ml 800 ml 1050 ml Output Total 1200 ml 710 ml Balance 250 ml -400 ml 340 ml Exam Constitutional: alert, oriented, well developed Psych: nl mood/affect, no complaints Head: atraumatic, normocephalic Eyes: EOMI, nl conjunctiva, nl lids, nl sclera ENMT: nl external ears & nose, nl lips & teeth, nl nasal mucosa & septum Neck: non-tender, other (3trach), supple Respiratory: clear to auscultation, normal air movement Cardiovascular: nl pulses, regular rate and rhythm Gastrointestinal: bowel sounds, non-tender, soft Neurological: nl mental status, nl speech Results Result Diagram: 11/07/16 0650 11/07/16 0650 Medications Medications Current Medications Ondansetron HCl (Zofran Inj) 4 mg Q6H PRN IV NAUSEA AND/OR VOMITING; Start at 18:00 Morphine Sulfate (morphine) 2 mg Q4H PRN IV PAIN LEVEL 7-10 Last administered on 10/30/16 03:33; Admin Dose 2 MG; Start 09/15/16 at 18:00 Haloperidol (Haldol) 5 mg Q6H PRN IM AGITATION Last administered on 10/30/16 02:05; Admin Dose 5 MG; Start 09/18/16 at 11:30 Metoclopramide HCl (Reglan) 10 mg Q12 IV Last administered on 11/08/16 09:05; Admin Dose 10 MG; Start 09/24/16 at 11:30 Acetaminophen (Tylenol Liquid) 650 mg Q4H PRN NGT PAIN AND OR ELEVATED TEMP Last administered on 11/07/16 22:47; Admin Dose 650 MG; Start 09/28/16 at 13:30 Collagenase (Santyl) 1 applic DAILY TOP Last administered on 11/08/16 09:13; Admin Dose 1 APPLIC; Start 10/08/16 at 20:00 Nystatin (Nystatin Powder) 1 applic BID TOP Last administered on 11/08/16 09: 13; Admin Dose 1 APPLIC; Start 10/08/16 at 21:00 Collagenase (Santyl) 1 applic PRN PRN TOP WOUND CARE Last administered on 07:54; Admin Dose 1 APPLIC; Start 10/08/16 at 17:30 Lorazepam (Ativan) 2 mg Q2H PRN IV AGITATION Last administered on 11/08/16 00: 52; Admin Dose 2 MG; Start 10/16/16 at 16:00 Fentanyl (Duragesic 50 Mcg/Hr Patch) 1 patch Q72H TRANSDERM Last administered on 11/05/16 12:42; Admin Dose 1 PATCH; Start 10/21/16 at 11:30 Lorazepam (Ativan) 2 mg Q2H PRN PEG AGITATION Last administered on 10/25/16 18: 43; Admin Dose 2 MG; Start 10/25/16 at 15:00 Docusate Sodium (Colace Liquid Cup) 200 mg BID PEG Last administered on 09:05; Admin Dose 200 MG; Start 10/25/16 at 21:00; Stop 11/15/16 at 08:00 Famotidine (Pepcid) 20 mg DAILY PO Last administered on 11/08/16 09:06; Admin Dose 20 MG; Start 10/26/16 at 09:00 Polyethylene Glycol (Miralax) 17 gm DAILY PRN GTB CONSTIPATION; Start 10/27/16 at 13:30 Methadone HCl (Methadone) 10 mg Q6H PRN PO PAIN Last administered on 10/30/16 13:13; Admin Dose 10 MG; Start 10/30/16 at 12:00 Apixaban (Eliquis) 5 mg BID GTB Last administered on 11/08/16 09:05; Admin Dose 5 MG; Start 10/31/16 at 21:00 Zolpidem Tartrate (Ambien) 10 mg HS PRN PEG INSOMNIA Last administered on 01:57; Admin Dose 10 MG; Start 11/01/16 at 03:00 Furosemide (Lasix) 20 mg DAILY PO Last administered on 11/08/16 09:09; Admin Dose 20 MG; Start 11/03/16 at 09:00 Lisinopril 5 mg 5 mg BID PO Last administered on 11/08/16 09:08; Admin Dose 5 MG; Start 11/04/16 at 21:00 Vancomycin HCl/ Sodium Chloride (Vancocin/NS) 250 ml @ 83.333 mls/ hr Q12H IVPB Last administered on 11/08/16 11:53; Admin Dose 83.333 MLS/HR; Start at 11:00 MIGUEL HERNANDEZ M.D. 11/09/16 0230: Assessment/Plan Assessment/Plan Additional Assessment/Plan Mary attestation: I discussed the management with MATTIE Mcelroy and agree with above. Exam/Review of Systems Results Result Diagram: 11/07/16 0650 11/07/16 0650 MARISOL MCELROY Nov 08, 2016 13:39 MIGUEL HERNANDEZ M.D. Nov 09, 2016 02:30
--- NOTE | 2016-11-08 18:45 | CONS ---
Date/Time of Note Date/Time of Note DATE: 11/08/16 TIME: 18:44 Consult Date/Type/Reason Admit Date/Time Sep 15, 2016 at 16:54 Type of Consultation: Pulm Ordering Provider: JAN ZHANG Subjective no events. on T-collar Objective Vital Signs Date Time Temp Pulse Resp B/P Pulse Ox O2 Delivery O2 Flow Rate FiO2 11/08/16 17:28 81 11/08/16 16:14 18 96 Aerosol 5.0 28 11/08/16 15:28 97.5 100/64 Intake and Output 11/07/16 11/07/16 11/08/16 15:00 23:00 07:00 Intake Total 250 ml 800 ml 1050 ml Output Total 1200 ml 710 ml Balance 250 ml -400 ml 340 ml HEENT: Neck supple; no JVD; no LAD, trach site clear CVS: RRR, S1 and S2 CHEST: Clear ABD: Soft, NT, + BS EXT: No c/c; + edema Results/Medications Result Diagram: 11/07/16 0650 11/07/16 0650 Medications Current Medications Ondansetron HCl (Zofran Inj) 4 mg Q6H PRN IV NAUSEA AND/OR VOMITING; Start at 18:00 Morphine Sulfate (morphine) 2 mg Q4H PRN IV PAIN LEVEL 7-10 Last administered on 10/30/16 03:33; Admin Dose 2 MG; Start 09/15/16 at 18:00 Haloperidol (Haldol) 5 mg Q6H PRN IM AGITATION Last administered on 10/30/16 02:05; Admin Dose 5 MG; Start 09/18/16 at 11:30 Metoclopramide HCl (Reglan) 10 mg Q12 IV Last administered on 11/08/16 09:05; Admin Dose 10 MG; Start 09/24/16 at 11:30 Acetaminophen (Tylenol Liquid) 650 mg Q4H PRN NGT PAIN AND OR ELEVATED TEMP Last administered on 11/07/16 22:47; Admin Dose 650 MG; Start 09/28/16 at 13:30 Collagenase (Santyl) 1 applic DAILY TOP Last administered on 11/08/16 09:13; Admin Dose 1 APPLIC; Start 10/08/16 at 20:00 Nystatin (Nystatin Powder) 1 applic BID TOP Last administered on 11/08/16 09: 13; Admin Dose 1 APPLIC; Start 10/08/16 at 21:00 Collagenase (Santyl) 1 applic PRN PRN TOP WOUND CARE Last administered on 07:54; Admin Dose 1 APPLIC; Start 10/08/16 at 17:30 Lorazepam (Ativan) 2 mg Q2H PRN IV AGITATION Last administered on 11/08/16 15: 26; Admin Dose 2 MG; Start 10/16/16 at 16:00 Fentanyl (Duragesic 50 Mcg/Hr Patch) 1 patch Q72H TRANSDERM Last administered on 11/05/16 12:42; Admin Dose 1 PATCH; Start 10/21/16 at 11:30 Lorazepam (Ativan) 2 mg Q2H PRN PEG AGITATION Last administered on 10/25/16 18: 43; Admin Dose 2 MG; Start 10/25/16 at 15:00 Docusate Sodium (Colace Liquid Cup) 200 mg BID PEG Last administered on 09:05; Admin Dose 200 MG; Start 10/25/16 at 21:00; Stop 11/15/16 at 08:00 Famotidine (Pepcid) 20 mg DAILY PO Last administered on 11/08/16 09:06; Admin Dose 20 MG; Start 10/26/16 at 09:00 Polyethylene Glycol (Miralax) 17 gm DAILY PRN GTB CONSTIPATION; Start 10/27/16 at 13:30 Methadone HCl (Methadone) 10 mg Q6H PRN PO PAIN Last administered on 10/30/16 13:13; Admin Dose 10 MG; Start 10/30/16 at 12:00 Apixaban (Eliquis) 5 mg BID GTB Last administered on 11/08/16 09:05; Admin Dose 5 MG; Start 10/31/16 at 21:00 Zolpidem Tartrate (Ambien) 10 mg HS PRN PEG INSOMNIA Last administered on 01:57; Admin Dose 10 MG; Start 11/01/16 at 03:00 Furosemide (Lasix) 20 mg DAILY PO Last administered on 11/08/16 09:09; Admin Dose 20 MG; Start 11/03/16 at 09:00 Lisinopril 5 mg 5 mg BID PO Last administered on 11/08/16 09:08; Admin Dose 5 MG; Start 11/04/16 at 21:00 Vancomycin HCl/ Sodium Chloride (Vancocin/NS) 250 ml @ 83.333 mls/ hr Q12H IVPB Last administered on 11/08/16 11:53; Admin Dose 83.333 MLS/HR; Start at 11:00 Miscellaneous Information (*Rx Drug Level Order Reminder*) VANCOMYCIN TROUGH AT 2200 ONCE ONCE XX ; Start 11/08/16 at 22:00; Stop 11/08/16 at 22:01 Assessment/Plan Additional Assessment/Plan IMP: 1. VDRF--> weaned to trach collar 2. Right-sided pneumonia with complicated parapneumonic effusion, status post VATS 3. Acute pulmonary emboli 4. 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 5. Encephalopathy RECS: 1. Continue trach collar 2. TF's/free H2O 3. D/C planning NAV DAVIDSON MD Nov 08, 2016 18:45
[2016-11-08] MEDS: ACETAMINOPHEN 650MG/20.3ML CUP NGT PRN (20:41)
[2016-11-09] VITALS (13 sets, daily range): BP systolic 101–122; BP diastolic 57–80; PULSE 69–85; RESP 16–20
[2016-11-09] MEDS: LORAZEPAM 2 MG INJ IV PRN ×3 (00:20→06:36)
[2016-11-09] MEDS: ACETAMINOPHEN 650MG/20.3ML CUP NGT PRN (02:51)
[2016-11-09] MEDS: morphine 2 MG INJ IV PRN ×4 (03:47→18:47)
[2016-11-09] MEDS: METOCLOPRAMIDE 10 MG INJ IV SCH ×2 (08:37→20:29)
[2016-11-09] MEDS: DOCUSATE SODIUM 10 MG/ML (10ML CUP) PEG SCH ×2 (08:37→20:30)
[2016-11-09] MEDS: APIXABAN 5 MG TABLET GTB SCH ×2 (08:37→20:27)
[2016-11-09] MEDS: FAMOTIDINE 20 MG TAB PO SCH (08:39)
[2016-11-09] MEDS: FUROSEMIDE 20 MG TAB PO SCH (08:39)
[2016-11-09] MEDS: LISINOPRIL 5 MG TAB PO SCH ×2 (08:39→20:29)
[2016-11-09] MEDS: NYSTATIN 30 GM POWDER BTL TOP SCH ×2 (08:40→20:30)
[2016-11-09] MEDS: COLLAGENASE 30 GM TUBE TOP SCH (08:40)
--- NOTE | 2016-11-09 11:56 | CONS ---
Date/Time of Note Date/Time of Note DATE: 11/09/16 TIME: 11:51 Assessment/Plan Assessment/Plan Additional Assessment/Plan Assessment and recommendations; next 1. Patient admitted for severe pneumonia involving right side leading to respiratory failure status post VATS procedure. 2. Chronic respiratory failure, status post tracheostomy due to severe drug withdrawal precluding weaning from mechanical ventilation. However patient now doing very well on tracheal T-piece. 3. Cardio myopathy. 4. Hypertension. 5. DVT and PE. 6. Recurrence of pneumonia. Patient now on vancomycin. Current treatment. Discontinue vancomycin if okay by ID. We will sign off. Please reconsult if needed. Consultation Date/Type/Reason Admit Date/Time Sep 15, 2016 at 16:54 Initial Consult Date 09/29/16 Type of Consultation: Pulm Referring Provider: JAN ZHANG 24 HR Interval Summary Free Text/Dictation Patient condition stable. Maintained on T piece without any shortness of breath. Has remained hemodynamically stable. General examination; middle aged man, awake alert currently in no distress. Exam/Review of Systems Vital Signs Vitals Vital Signs Date Time Temp Pulse Resp B/P Pulse Ox O2 Delivery O2 Flow Rate FiO2 11/09/16 11:09 98.4 61 19 101/67 98 11/09/16 08:00 5.0 28 11/09/16 04:45 Aerosol T Tube Intake and Output 11/08/16 11/08/16 11/09/16 15:00 23:00 07:00 Intake Total 250 ml 1050 ml Output Total 1200 ml 700 ml Balance 250 ml -1200 ml 350 ml Exam H EENT examination; supple neck, tracheostomy in place with clean insertion site. Pharynx is clear. Good dentition. Pupils are midsize and reactive to light. Chest examination; clear to auscultation bilaterally. S1-S2 audible, no murmurs. Regular rhythm. Abdomen examination; soft, nontender. No organomegaly. G-tube in place. Bowel sounds audible. Extremity examination; no peripheral edema. CARD FIXER examination; no focal deficit. Results Result Diagram: 11/07/16 0650 11/07/16 0650 Results 24 hrs Laboratory Tests Test 11/08/16 22:14 Vancomycin Level Trough 14.1 Medications Medications Current Medications Ondansetron HCl (Zofran Inj) 4 mg Q6H PRN IV NAUSEA AND/OR VOMITING; Start at 18:00 Morphine Sulfate (morphine) 2 mg Q4H PRN IV PAIN LEVEL 7-10 Last administered on 11/09/16 08:41; Admin Dose 2 MG; Start 09/15/16 at 18:00 Haloperidol (Haldol) 5 mg Q6H PRN IM AGITATION Last administered on 10/30/16 02:05; Admin Dose 5 MG; Start 09/18/16 at 11:30 Metoclopramide HCl (Reglan) 10 mg Q12 IV Last administered on 11/09/16 08:37; Admin Dose 10 MG; Start 09/24/16 at 11:30 Acetaminophen (Tylenol Liquid) 650 mg Q4H PRN NGT PAIN AND OR ELEVATED TEMP Last administered on 11/09/16 02:51; Admin Dose 650 MG; Start 09/28/16 at 13:30 Collagenase (Santyl) 1 applic DAILY TOP Last administered on 11/09/16 08:40; Admin Dose 1 APPLIC; Start 10/08/16 at 20:00 Nystatin (Nystatin Powder) 1 applic BID TOP Last administered on 11/09/16 08: 40; Admin Dose 1 APPLIC; Start 10/08/16 at 21:00 Collagenase (Santyl) 1 applic PRN PRN TOP WOUND CARE Last administered on 07:54; Admin Dose 1 APPLIC; Start 10/08/16 at 17:30 Lorazepam (Ativan) 2 mg Q2H PRN IV AGITATION Last administered on 11/09/16 06: 36; Admin Dose 2 MG; Start 10/16/16 at 16:00 Fentanyl (Duragesic 50 Mcg/Hr Patch) 1 patch Q72H TRANSDERM Last administered on 11/05/16 12:42; Admin Dose 1 PATCH; Start 10/21/16 at 11:30 Lorazepam (Ativan) 2 mg Q2H PRN PEG AGITATION Last administered on 10/25/16 18: 43; Admin Dose 2 MG; Start 10/25/16 at 15:00 Docusate Sodium (Colace Liquid Cup) 200 mg BID PEG Last administered on 08:37; Admin Dose 200 MG; Start 10/25/16 at 21:00; Stop 11/15/16 at 08:00 Famotidine (Pepcid) 20 mg DAILY PO Last administered on 11/09/16 08:39; Admin Dose 20 MG; Start 10/26/16 at 09:00 Polyethylene Glycol (Miralax) 17 gm DAILY PRN GTB CONSTIPATION; Start 10/27/16 at 13:30 Methadone HCl (Methadone) 10 mg Q6H PRN PO PAIN Last administered on 10/30/16 13:13; Admin Dose 10 MG; Start 10/30/16 at 12:00 Apixaban (Eliquis) 5 mg BID GTB Last administered on 11/09/16 08:37; Admin Dose 5 MG; Start 10/31/16 at 21:00 Zolpidem Tartrate (Ambien) 10 mg HS PRN PEG INSOMNIA Last administered on 21:11; Admin Dose 10 MG; Start 11/01/16 at 03:00 Furosemide (Lasix) 20 mg DAILY PO Last administered on 11/09/16 08:39; Admin Dose 20 MG; Start 11/03/16 at 09:00 Lisinopril 5 mg 5 mg BID PO Last administered on 11/09/16 08:39; Admin Dose 5 MG; Start 11/04/16 at 21:00 Vancomycin HCl/ Sodium Chloride (Vancocin/NS) 250 ml @ 83.333 mls/ hr Q12H IVPB Last administered on 11/08/16 23:46; Admin Dose 83.333 MLS/HR; Start at 11:00 ILYA HILL Nov 09, 2016 11:56
[2016-11-09] MEDS: VANCOMYCIN 1.25 GM in SOD CHLORIDE 0.9% 250 ML IVPB SCH (12:32)
--- NOTE | 2016-11-09 13:08 | CONS ---
Date/Time of Note Date/Time of Note DATE: 11/09/16 TIME: 13:01 Assessment/Plan Assessment/Plan Chief Complaint/Hosp Course assessment/impression - Recurrent sepsis with early septic shock - responded to IVF and change of abx. Fever and leukocytosis resolved. 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 Could be started as CAP, other considerations include aspiration PNA. - recurrent right pleural effusion. s/p diagnostic thoracentesis on 09/22/16. 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 No malignancy on cytology. s/p repeat thoracentesis 10/01/16, no malignancy on cytology. 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) - s/p transaminitis, possibly shock liver, improved - s/p drug rash likely d/t pip/tazo, resolving - antimicrobial history: vanco (09/19/16-10/04/16, 10/08/16-10/10/16), azithromycin (10/02/16-10/06/16), pip/tazo (09/29/16-10/08/16), Tamiflu (10/02/16-), ashlyn (10/08-10/15/16) - negative results: rapid influenza screen, PPD, legionella antigen, mycoplasma pneumoniae, chlamydia pneumoniae serology, and respiratory viral panel; AFB smear (09/29, 09/30, 10/01, 10/08, 10/13) recommendations: - discontinue vancomycin (10/29/2016-) for staph bacteremia after today's dose as pt will have completed 10 days counting from the date of discontinuation of his catheter (10/30/2016-11/09/2016) - management d/w Pt and Pt's RN - Above d/w Dr. Hernandez Problems: Consultation Date/Type/Reason Admit Date/Time Sep 15, 2016 at 16:54 Initial Consult Date 09/29/16 Type of Consultation: Infectious Disease Referring Provider: JAN ZHANG 24 HR Interval Summary Free Text/Dictation Asking for "more food". States ate two cheeseburgers and two oatmeals from [email or web address] yesterday even thought pt was suppose to be on pureed diet per ST. Denies any pain, SOB, n/v/d, dysuria. Exam/Review of Systems Vital Signs Vitals Vital Signs Date Time Temp Pulse Resp B/P Pulse Ox O2 Delivery O2 Flow Rate FiO2 11/09/16 11:09 98.4 61 19 101/67 98 11/09/16 08:00 5.0 28 11/09/16 04:45 Aerosol T Tube Intake and Output 11/08/16 11/08/16 11/09/16 15:00 23:00 07:00 Intake Total 250 ml 1050 ml Output Total 1200 ml 700 ml Balance 250 ml -1200 ml 350 ml Exam Constitutional: alert, oriented, well developed, speaks few words softly and clear Psych: nl mood/affect, no complaints Head: atraumatic, normocephalic Neck: other (trach midline and intact with t-piece and supplemental O2), supple , No jvd Respiratory: clear to auscultation, normal air movement, R lower chest wall dressing c/d/i Cardiovascular: nl pulses, regular rate and rhythm Gastrointestinal: non-tender, soft Extremities: normal pulses, No clubbing, No cyanosis, No edema Neurological: nl mental status, other (interactive, follows simple commands, GUALLPA) Skin: nl turgor, other (left SCV dressing c/d/i) Results Result Diagram: 11/07/16 0650 11/07/16 0650 Results 24 hrs Laboratory Tests Test 11/08/16 22:14 Vancomycin Level Trough 14.1 Medications Medications Current Medications Ondansetron HCl (Zofran Inj) 4 mg Q6H PRN IV NAUSEA AND/OR VOMITING; Start at 18:00 Morphine Sulfate (morphine) 2 mg Q4H PRN IV PAIN LEVEL 7-10 Last administered on 11/09/16 08:41; Admin Dose 2 MG; Start 09/15/16 at 18:00 Haloperidol (Haldol) 5 mg Q6H PRN IM AGITATION Last administered on 10/30/16 02:05; Admin Dose 5 MG; Start 09/18/16 at 11:30 Metoclopramide HCl (Reglan) 10 mg Q12 IV Last administered on 11/09/16 08:37; Admin Dose 10 MG; Start 09/24/16 at 11:30 Acetaminophen (Tylenol Liquid) 650 mg Q4H PRN NGT PAIN AND OR ELEVATED TEMP Last administered on 11/09/16 02:51; Admin Dose 650 MG; Start 09/28/16 at 13:30 Collagenase (Santyl) 1 applic DAILY TOP Last administered on 11/09/16 08:40; Admin Dose 1 APPLIC; Start 10/08/16 at 20:00 Nystatin (Nystatin Powder) 1 applic BID TOP Last administered on 11/09/16 08: 40; Admin Dose 1 APPLIC; Start 10/08/16 at 21:00 Collagenase (Santyl) 1 applic PRN PRN TOP WOUND CARE Last administered on 07:54; Admin Dose 1 APPLIC; Start 10/08/16 at 17:30 Lorazepam (Ativan) 2 mg Q2H PRN IV AGITATION Last administered on 11/09/16 06: 36; Admin Dose 2 MG; Start 10/16/16 at 16:00 Fentanyl (Duragesic 50 Mcg/Hr Patch) 1 patch Q72H TRANSDERM Last administered on 11/05/16 12:42; Admin Dose 1 PATCH; Start 10/21/16 at 11:30 Lorazepam (Ativan) 2 mg Q2H PRN PEG AGITATION Last administered on 10/25/16 18: 43; Admin Dose 2 MG; Start 10/25/16 at 15:00 Docusate Sodium (Colace Liquid Cup) 200 mg BID PEG Last administered on 08:37; Admin Dose 200 MG; Start 10/25/16 at 21:00; Stop 11/15/16 at 08:00 Famotidine (Pepcid) 20 mg DAILY PO Last administered on 11/09/16 08:39; Admin Dose 20 MG; Start 10/26/16 at 09:00 Polyethylene Glycol (Miralax) 17 gm DAILY PRN GTB CONSTIPATION; Start 10/27/16 at 13:30 Methadone HCl (Methadone) 10 mg Q6H PRN PO PAIN Last administered on 10/30/16 13:13; Admin Dose 10 MG; Start 10/30/16 at 12:00 Apixaban (Eliquis) 5 mg BID GTB Last administered on 11/09/16 08:37; Admin Dose 5 MG; Start 10/31/16 at 21:00 Zolpidem Tartrate (Ambien) 10 mg HS PRN PEG INSOMNIA Last administered on 21:11; Admin Dose 10 MG; Start 11/01/16 at 03:00 Furosemide (Lasix) 20 mg DAILY PO Last administered on 11/09/16 08:39; Admin Dose 20 MG; Start 11/03/16 at 09:00 Lisinopril 5 mg 5 mg BID PO Last administered on 11/09/16 08:39; Admin Dose 5 MG; Start 11/04/16 at 21:00 Vancomycin HCl/ Sodium Chloride (Vancocin/NS) 250 ml @ 83.333 mls/ hr Q12H IVPB Last administered on 11/09/16 12:32; Admin Dose 83.333 MLS/HR; Start at 11:00 LAURA OJEDA NP Nov 09, 2016 13:08
--- NOTE | 2016-11-09 16:28 | CONS ---
Date/Time of Note Date/Time of Note DATE: 11/09/16 TIME: 16:25 Assessment/Plan Assessment/Plan Additional Assessment/Plan Respiratory failure Sepsis Pulmonary emboli Acute decompensated systolic congestive heart failure Severe biventricular cardiomyopathy with left ventricular ejection fraction 20% Pleural effusion -Blood pressure remained stable and tolerating diuretics and HILDA inhibitor. Will start low-dose beta-beatriz given stable blood pressure. Consultation Date/Type/Reason Admit Date/Time Sep 15, 2016 at 16:54 Initial Consult Date 09/29/16 Type of Consultation: cv Referring Provider: JAN ZHANG 24 HR Interval Summary Free Text/Dictation Patient seen and examined Exam/Review of Systems Vital Signs Vitals Vital Signs Date Time Temp Pulse Resp B/P Pulse Ox O2 Delivery O2 Flow Rate FiO2 11/09/16 15:46 98.2 70 19 116/63 100 11/09/16 13:35 5.0 28 11/09/16 04:45 Aerosol T Tube Intake and Output 11/08/16 11/08/16 11/09/16 15:00 23:00 07:00 Intake Total 250 ml 1050 ml Output Total 1200 ml 700 ml Balance 250 ml -1200 ml 350 ml Exam No apparent distress Head: normocephalic Neck: other (trach) Respiratory: other (Coarse breath sounds bilaterally, no wheezing) Cardiovascular: other (S1-S2 heard), regular rate and rhythm Gastrointestinal: bowel sounds, non-tender, soft Extremities: other (No edema) Results Result Diagram: 11/07/16 0650 11/07/16 0650 Results 24 hrs Laboratory Tests Test 11/08/16 22:14 Vancomycin Level Trough 14.1 Medications Medications Current Medications Ondansetron HCl (Zofran Inj) 4 mg Q6H PRN IV NAUSEA AND/OR VOMITING; Start at 18:00 Morphine Sulfate (morphine) 2 mg Q4H PRN IV PAIN LEVEL 7-10 Last administered on 11/09/16 13:37; Admin Dose 2 MG; Start 09/15/16 at 18:00 Haloperidol (Haldol) 5 mg Q6H PRN IM AGITATION Last administered on 10/30/16 02:05; Admin Dose 5 MG; Start 09/18/16 at 11:30 Metoclopramide HCl (Reglan) 10 mg Q12 IV Last administered on 11/09/16 08:37; Admin Dose 10 MG; Start 09/24/16 at 11:30 Acetaminophen (Tylenol Liquid) 650 mg Q4H PRN NGT PAIN AND OR ELEVATED TEMP Last administered on 11/09/16 02:51; Admin Dose 650 MG; Start 09/28/16 at 13:30 Collagenase (Santyl) 1 applic DAILY TOP Last administered on 11/09/16 08:40; Admin Dose 1 APPLIC; Start 10/08/16 at 20:00 Nystatin (Nystatin Powder) 1 applic BID TOP Last administered on 11/09/16 08: 40; Admin Dose 1 APPLIC; Start 10/08/16 at 21:00 Collagenase (Santyl) 1 applic PRN PRN TOP WOUND CARE Last administered on 07:54; Admin Dose 1 APPLIC; Start 10/08/16 at 17:30 Lorazepam (Ativan) 2 mg Q2H PRN IV AGITATION Last administered on 11/09/16 06: 36; Admin Dose 2 MG; Start 10/16/16 at 16:00 Fentanyl (Duragesic 50 Mcg/Hr Patch) 1 patch Q72H TRANSDERM Last administered on 11/05/16 12:42; Admin Dose 1 PATCH; Start 10/21/16 at 11:30 Lorazepam (Ativan) 2 mg Q2H PRN PEG AGITATION Last administered on 10/25/16 18: 43; Admin Dose 2 MG; Start 10/25/16 at 15:00 Docusate Sodium (Colace Liquid Cup) 200 mg BID PEG Last administered on 08:37; Admin Dose 200 MG; Start 10/25/16 at 21:00; Stop 11/15/16 at 08:00 Famotidine (Pepcid) 20 mg DAILY PO Last administered on 11/09/16 08:39; Admin Dose 20 MG; Start 10/26/16 at 09:00 Polyethylene Glycol (Miralax) 17 gm DAILY PRN GTB CONSTIPATION; Start 10/27/16 at 13:30 Methadone HCl (Methadone) 10 mg Q6H PRN PO PAIN Last administered on 10/30/16 13:13; Admin Dose 10 MG; Start 10/30/16 at 12:00 Apixaban (Eliquis) 5 mg BID GTB Last administered on 11/09/16 08:37; Admin Dose 5 MG; Start 10/31/16 at 21:00 Zolpidem Tartrate (Ambien) 10 mg HS PRN PEG INSOMNIA Last administered on 21:11; Admin Dose 10 MG; Start 11/01/16 at 03:00 Furosemide (Lasix) 20 mg DAILY PO Last administered on 11/09/16 08:39; Admin Dose 20 MG; Start 11/03/16 at 09:00 Lisinopril (Zestril) 5 mg BID PO Last administered on 11/09/16 08:39; Admin Dose 5 MG; Start 11/04/16 at 21:00 Nikolay Luna DO Nov 09, 2016 16:28
--- NOTE | 2016-11-09 17:52 | PN ---
Date/Time of Note Date/Time of Note DATE: 11/09/16 TIME: 17:50 Assessment/Plan VTE Prophylaxis VTE Prophylaxis Intervention: SCD's Lines/Catheters IV C[facility] Type (from [facility] PICC Line Central line still needed: Yes Urinary Cath still in place: No Assessment/Plan Chief Complaint/Hosp Course ASSESSMENT AND PLAN: - Acute respiratory failure patient, resolved. Dr. Simons is following the patient from pulmonology consultation. - Right-sided pneumonia with complicated parapneumonic effusion, status post thoracentesis, s/p R chest tube placement and and subsequent removal of chest tube, s/p treatment with abx. - Acute pulmonary emboli. Continue patient on Lovenox. 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 Dr. Luna is following from cardiology standpoint. - Encephalopathy, likely toxic metabolic, resolving. Continue to monitor. - Sepsis secondary to #2, resolved. - Status post tracheostomy by Dr. Marino on 10/20. - Status post G-tube placement by Dr. Galarza on 10/20 Await SNIF placement Continue Pepcid for peptic ulcer disease prophylaxis. Further recommendations based on clinical course. Plan of care discussed with Dr. Patel. Problems: Subjective 24 Hr Interval Summary Free Text/Dictation Patient passed swallow eval, tolerates current diet well, no nausea vomiting, patient is breathing comfortably on cool aerosol mist via T-tube. Exam/Review of Systems Vital Signs Vitals Vital Signs Date Time Temp Pulse Resp B/P Pulse Ox O2 Delivery O2 Flow Rate FiO2 11/09/16 15:46 98.2 70 19 116/63 100 11/09/16 13:35 5.0 28 11/09/16 04:45 Aerosol T Tube Intake and Output 11/08/16 11/08/16 11/09/16 15:00 23:00 07:00 Intake Total 250 ml 1050 ml Output Total 1200 ml 700 ml Balance 250 ml -1200 ml 350 ml Exam GENERAL: Well-developed, well-nourished male, tracheostomy to vent support, awake alert HEENT: Tracheostomy LUNGS: clear. HEART: Normal S1, S2. No murmurs, gallops, clicks, rubs noted. ABDOMEN: Round, soft, nondistended, nontender. Bowel sounds present. EXTREMITIES: No edema, clubbing, cyanosis. Pulses equal bilaterally 2+. SKIN: There is no rash. NEUROLOGIC: Awake alert Results Result Diagram: 11/07/16 0650 11/07/16 0650 Results 24 hrs Laboratory Tests Test 11/08/16 22:14 Vancomycin Level Trough 14.1 Medications Medications Current Medications Ondansetron HCl (Zofran Inj) 4 mg Q6H PRN IV NAUSEA AND/OR VOMITING; Start at 18:00 Morphine Sulfate (morphine) 2 mg Q4H PRN IV PAIN LEVEL 7-10 Last administered on 11/09/16 13:37; Admin Dose 2 MG; Start 09/15/16 at 18:00 Haloperidol (Haldol) 5 mg Q6H PRN IM AGITATION Last administered on 10/30/16 02:05; Admin Dose 5 MG; Start 09/18/16 at 11:30 Metoclopramide HCl (Reglan) 10 mg Q12 IV Last administered on 11/09/16 08:37; Admin Dose 10 MG; Start 09/24/16 at 11:30 Acetaminophen (Tylenol Liquid) 650 mg Q4H PRN NGT PAIN AND OR ELEVATED TEMP Last administered on 11/09/16 02:51; Admin Dose 650 MG; Start 09/28/16 at 13:30 Collagenase (Santyl) 1 applic DAILY TOP Last administered on 11/09/16 08:40; Admin Dose 1 APPLIC; Start 10/08/16 at 20:00 Nystatin (Nystatin Powder) 1 applic BID TOP Last administered on 11/09/16 08: 40; Admin Dose 1 APPLIC; Start 10/08/16 at 21:00 Collagenase (Santyl) 1 applic PRN PRN TOP WOUND CARE Last administered on 07:54; Admin Dose 1 APPLIC; Start 10/08/16 at 17:30 Lorazepam (Ativan) 2 mg Q2H PRN IV AGITATION Last administered on 11/09/16 06: 36; Admin Dose 2 MG; Start 10/16/16 at 16:00 Fentanyl (Duragesic 50 Mcg/Hr Patch) 1 patch Q72H TRANSDERM Last administered on 11/05/16 12:42; Admin Dose 1 PATCH; Start 10/21/16 at 11:30 Lorazepam (Ativan) 2 mg Q2H PRN PEG AGITATION Last administered on 10/25/16 18: 43; Admin Dose 2 MG; Start 10/25/16 at 15:00 Docusate Sodium (Colace Liquid Cup) 200 mg BID PEG Last administered on 08:37; Admin Dose 200 MG; Start 10/25/16 at 21:00; Stop 11/15/16 at 08:00 Famotidine (Pepcid) 20 mg DAILY PO Last administered on 11/09/16 08:39; Admin Dose 20 MG; Start 10/26/16 at 09:00 Polyethylene Glycol (Miralax) 17 gm DAILY PRN GTB CONSTIPATION; Start 10/27/16 at 13:30 Methadone HCl (Methadone) 10 mg Q6H PRN PO PAIN Last administered on 10/30/16 13:13; Admin Dose 10 MG; Start 10/30/16 at 12:00 Apixaban (Eliquis) 5 mg BID GTB Last administered on 11/09/16 08:37; Admin Dose 5 MG; Start 10/31/16 at 21:00 Zolpidem Tartrate (Ambien) 10 mg HS PRN PEG INSOMNIA Last administered on 21:11; Admin Dose 10 MG; Start 11/01/16 at 03:00 Furosemide (Lasix) 20 mg DAILY PO Last administered on 11/09/16 08:39; Admin Dose 20 MG; Start 11/03/16 at 09:00 Lisinopril (Zestril) 5 mg BID PO Last administered on 11/09/16 08:39; Admin Dose 5 MG; Start 11/04/16 at 21:00 Carvedilol (Coreg) 3.125 mg BID GTB Last administered on 11/09/16 17:42; Admin Dose 3.125 MG; Start 11/09/16 at 17:00 JAN ZHANG Nov 09, 2016 17:52
[2016-11-09] MEDS: LORAZEPAM 1 MG TAB PEG PRN ×2 (20:28→23:41)
[2016-11-09] MEDS: ZOLPIDEM 5 MG TAB PEG PRN (21:35)
[2016-11-10] VITALS (10 sets, daily range): BP systolic 112–146; BP diastolic 69–78; PULSE 73–85; RESP 16–20
[2016-11-10] MEDS: morphine 2 MG INJ IV PRN (01:34)
[2016-11-10] MEDS: LORAZEPAM 2 MG INJ IV PRN ×5 (03:52→20:22)
[2016-11-10] MEDS: FAMOTIDINE 20 MG TAB PO SCH (09:00)
[2016-11-10] MEDS: DOCUSATE SODIUM 10 MG/ML (10ML CUP) PEG SCH ×2 (09:00→20:29)
[2016-11-10] MEDS: NYSTATIN 30 GM POWDER BTL TOP SCH ×2 (09:00→20:27)
[2016-11-10] MEDS: METOCLOPRAMIDE 10 MG INJ IV SCH ×2 (09:20→20:22)
[2016-11-10] MEDS: FUROSEMIDE 20 MG TAB PO SCH (09:21)
[2016-11-10] MEDS: LISINOPRIL 5 MG TAB PO SCH ×2 (09:21→20:23)
[2016-11-10] MEDS: APIXABAN 5 MG TABLET GTB SCH ×2 (09:22→20:23)
[2016-11-10] MEDS: COLLAGENASE 30 GM TUBE TOP SCH (09:23)
--- NOTE | 2016-11-10 11:57 | CONS ---
Date/Time of Note Date/Time of Note DATE: 11/10/16 TIME: 11:33 Assessment/Plan Assessment/Plan Chief Complaint/Hosp Course assessment/impression - s/p recurrent sepsis with early septic shock - responded to IVF and change of abx. Fever and leukocytosis resolved. 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 Could be started as CAP, other considerations include aspiration PNA. - recurrent right pleural effusion. s/p diagnostic thoracentesis on 09/22/16. It showed glu=74 pro <2, OAX=1891. No malignancy on cytology. s/p repeat thoracentesis 10/01/16, no malignancy on cytology. 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% - tox screen positive for meth and benzo (per EMR) - s/p transaminitis, possibly shock liver, improved - s/p drug rash likely d/t pip/tazo, resolving - antimicrobial history: vanco (09/19/16-10/04/16, 10/08/16-10/10/16, 10/29/16-), azithromycin (10/02/16-10/06/16), pip/tazo (09/29/16-10/08/16), Tamiflu (-10/08/16), ashlyn (10/08-10/15/16) - negative results: rapid influenza screen, PPD, legionella antigen, mycoplasma pneumoniae, chlamydia pneumoniae serology, and respiratory viral panel; AFB smear (09/29, 09/30, 10/01, 10/08, 10/13) recommendations: - monitor off abx - management d/w Pt and Pt's RN - Above d/w Dr. Osullivan Problems: Consultation Date/Type/Reason Admit Date/Time Sep 15, 2016 at 16:54 Initial Consult Date 09/29/16 Type of Consultation: Infectious Disease Referring Provider: JAN ZHANG 24 HR Interval Summary Free Text/Dictation Remains afebrile; diet upgraded to soft and eating well; tolerating PMV per BRENDA Traylor. Pt states "I need to go home. I have to take care of my car and van." Denies any pain, SOB, n/v/d, dysuria. Exam/Review of Systems Vital Signs Vitals Vital Signs Date Time Temp Pulse Resp B/P Pulse Ox O2 Delivery O2 Flow Rate FiO2 11/10/16 11:12 98.7 75 20 112/74 97 11/10/16 08:00 5.0 28 11/10/16 04:00 Aerosol T Tube Intake and Output 11/09/16 11/09/16 11/10/16 15:00 23:00 07:00 Intake Total 480 ml Output Total 1200 ml Balance -720 ml Exam Constitutional: alert, oriented, well developed, speaking well with PMV Psych: nl mood/affect, no complaints Head: atraumatic, normocephalic Neck: other (trach midline and intact with t-piece and supplemental O2), supple , No jvd Respiratory: clear to auscultation, normal air movement, R lower chest wall dressing c/d/i Cardiovascular: nl pulses, regular rate and rhythm Gastrointestinal: non-tender, soft Extremities: normal pulses, No clubbing, No cyanosis, No edema Neurological: nl mental status, other (interactive, follows simple commands, GUALLPA) Skin: nl turgor, other (left SCV dressing c/d/i) Results Result Diagram: 11/07/16 0650 11/07/16 0650 Medications Medications Current Medications Ondansetron HCl (Zofran Inj) 4 mg Q6H PRN IV NAUSEA AND/OR VOMITING; Start at 18:00 Morphine Sulfate (morphine) 2 mg Q4H PRN IV PAIN LEVEL 7-10 Last administered on 11/10/16 01:34; Admin Dose 2 MG; Start 09/15/16 at 18:00 Haloperidol (Haldol) 5 mg Q6H PRN IM AGITATION Last administered on 10/30/16 02:05; Admin Dose 5 MG; Start 09/18/16 at 11:30 Metoclopramide HCl (Reglan) 10 mg Q12 IV Last administered on 11/10/16 09:20; Admin Dose 10 MG; Start 09/24/16 at 11:30 Acetaminophen (Tylenol Liquid) 650 mg Q4H PRN NGT PAIN AND OR ELEVATED TEMP Last administered on 11/09/16 02:51; Admin Dose 650 MG; Start 09/28/16 at 13:30 Collagenase (Santyl) 1 applic DAILY TOP Last administered on 11/10/16 09:23; Admin Dose 1 APPLIC; Start 10/08/16 at 20:00 Nystatin (Nystatin Powder) 1 applic BID TOP Last administered on 11/09/16 20: 30; Admin Dose 1 APPLIC; Start 10/08/16 at 21:00 Collagenase (Santyl) 1 applic PRN PRN TOP WOUND CARE Last administered on 07:54; Admin Dose 1 APPLIC; Start 10/08/16 at 17:30 Lorazepam (Ativan) 2 mg Q2H PRN IV AGITATION Last administered on 11/10/16 11: 26; Admin Dose 2 MG; Start 10/16/16 at 16:00 Fentanyl (Duragesic 50 Mcg/Hr Patch) 1 patch Q72H TRANSDERM Last administered on 11/05/16 12:42; Admin Dose 1 PATCH; Start 10/21/16 at 11:30 Lorazepam (Ativan) 2 mg Q2H PRN PEG AGITATION Last administered on 11/09/16 23 :41; Admin Dose 2 MG; Start 10/25/16 at 15:00 Docusate Sodium (Colace Liquid Cup) 200 mg BID PEG Last administered on 08:37; Admin Dose 200 MG; Start 10/25/16 at 21:00; Stop 11/15/16 at 08:00 Famotidine (Pepcid) 20 mg DAILY PO Last administered on 11/09/16 08:39; Admin Dose 20 MG; Start 10/26/16 at 09:00 Polyethylene Glycol (Miralax) 17 gm DAILY PRN GTB CONSTIPATION; Start 10/27/16 at 13:30 Methadone HCl (Methadone) 10 mg Q6H PRN PO PAIN Last administered on 10/30/16 13:13; Admin Dose 10 MG; Start 10/30/16 at 12:00 Apixaban (Eliquis) 5 mg BID GTB Last administered on 11/10/16 09:22; Admin Dose 5 MG; Start 10/31/16 at 21:00 Zolpidem Tartrate (Ambien) 10 mg HS PRN PEG INSOMNIA Last administered on 21:35; Admin Dose 10 MG; Start 11/01/16 at 03:00 Furosemide (Lasix) 20 mg DAILY PO Last administered on 11/10/16 09:21; Admin Dose 20 MG; Start 11/03/16 at 09:00 Lisinopril (Zestril) 5 mg BID PO Last administered on 11/10/16 09:21; Admin Dose 5 MG; Start 11/04/16 at 21:00 Carvedilol (Coreg) 3.125 mg BID GTB Last administered on 11/10/16 09:21; Admin Dose 3.125 MG; Start 11/09/16 at 17:00 LAURA OJEDA NP Nov 10, 2016 11:57
[2016-11-10 12:33] LABS: BASOPHIL # 0.1 10^3/ul (0.0-0.1); BASOPHILS % 0.9 % (0.0-2.0); EOSINOPHILS # 0.7 10^3/ul (0.0-0.5); EOSINOPHILS % 8.4 % (0.0-7.0); HEMOGLOBIN 12.1 g/dl (14.0-18.0); LYMPHOCYTES # 1.3 10^3/ul (0.8-2.9); LYMPHOCYTES % 15.2 % (15.0-51.0); MEAN CORPUSCULAR HEMOGLOBIN 28.6 pg (29.0-33.0); MEAN CORPUSCULAR HGB CONC 32.7 g/dl (32.0-37.0); MEAN CORPUSCULAR VOLUME 87.3 fl (82.0-101.0); MONOCYTE # 0.9 10^3/ul (0.3-0.9); MONOCYTES % 10.4 % (0.0-11.0); NEUTROPHIL # 5.6 10^3/ul (1.6-7.5); NEUTROPHILS % 65.1 % (39.0-77.0); PLATELET COUNT 436 10^3/UL (140-440); RED BLOOD COUNT 4.23 10^6/ul (4.70-6.10); RED CELL DISTRIBUTION WIDTH 16.2 % (11.5-14.5); UNCORRECTED WBC 8.6 10^3/ul (4.8-10.8); WHITE BLOOD COUNT 8.6 10^3/ul (4.8-10.8)
[2016-11-10 12:37] LABS: CONDITION 1; LH ANALYZER COMMENTS 1
[2016-11-10 12:45] LABS: POTASSIUM 3.8 mmol/L (3.5-5.1)
[2016-11-10 12:48] LABS: CREATININE 0.53 mg/dl (0.61-1.24)
[2016-11-10 12:49] LABS: CALCIUM 9.3 mg/dl (8.4-10.2)
--- NOTE | 2016-11-11 00:12 | DS ---
DATE OF ADMISSION: 09/15/2016 DATE OF DISCHARGE: 11/10/2016 FINAL DIAGNOSES: 1. Status post acute respiratory failure. 2. Right-sided pneumonia with complicated parapneumonic effusion, status post thoracentesis and sta tus post right chest tube placement and subsequent chest tube removal. 3. Acute pulmonary emboli. 4. Systolic and diastolic congestive heart failure with ejection fraction of 20%. 5. Encephalopathy, likely toxic metabolic, resolved. 6. Sepsis secondary to pneumonia, resolved. 7. Status post tracheostomy, status post gastrostomy tube placement. 8. Status post transaminitis secondary to shock liver. 9. Positive toxicity screen for methamphetamine and benzodiazepine on admission. BRIEF HISTORY: The patient is a 41-year-old male, came to the emergency room with complain t of shortness of breath. The patient had been previously seen in the emergency room and was diagno sed with pulmonary embolism and left against medical advice. The patient came with complaints of sh ortness of breath and palpitations. HOSPITAL COURSE: The patient was diagnosed with acute pulmonary embolus and pneumonia. The patient was admitted to ICU and was placed on nonrebreather mask. However, patient's condition deteriorate d, and patient was orally intubated and placed on mechanical ventilation. The patient was followed by Dr. Aquino and Dr. Escalante in pulmonology consultation. The patient had a right-sided pneumonia w ith a complicated parapneumonic effusion. The patient was followed by Dr. Osullivan's group in infecti ous disease consultation, and antibiotic was managed by Infectious Disease. The patient was evaluat ed by Dr. Marino in thoracic surgery consultation. The patient status post thoracentesis. The p atient's condition did not significantly improve status post thoracentesis. The patient could not b e weaned off ventilator, and patient had right chest tube placement. The patient had failed multipl e weaning trials, and patient underwent tracheostomy by Dr. Marino on 10/20 and also G-tube place ment by Dr. Galarza on 10/20. The patient was also followed by Dr. Bhardwaj in pain management consu ltation. The patient was on sedation, however had difficulty weaning off of the vent. The patient was getting very agitated and tachypneic. The patient was given fentanyl patch and methadone via G- tube. The patient was given Lovenox for acute pulmonary emboli, which was subsequently switched to Eliquis. The patient was also evaluated and followed by Dr. Luna in cardiology consultation. The patient has systolic and diastolic congestive heart failure with ejection fraction of 20%. The pat ient was given Lasix. Gradually the patient's condition improved, and patient was weaned off ventil ator, is currently on tracheostomy to cool aerosol mist via T-tube. The patient was also with resol obdulia encephalopathy, compliant with treatment. The patient was evaluated by Speech Therapy and was s tarted on a mechanical soft diet and was able to tolerate it well. The patient's condition overall significantly improved, and patient will be discharged to shelter facility. CONDITION ON DISCHARGE: Hemodynamically stable. ACTIVITY: As patient tolerates. DIET: Two gram sodium diet. MEDICATION ON DISCHARGE: 1. Tylenol p.r.n. for fever and pain. 2. Eliquis 5 mg G-tube b.i.d. 3. Coreg 3.125 mg G-tube b.i.d. 4. Santyl ointment application p.r.n. 5. Colace 200 mg G-tube b.i.d. 6. Pepcid 20 mg G-tube daily. 7. Fentanyl 50 mcg patch q.72 hours. 8. Lasix 20 mg p.o. daily. 9. Haldol 5 mg IM q.6. hours p.r.n. for agitation. 10. Xopenex breathing treatment q.6 hours. 11. Lisinopril 5 mg p.o. b.i.d. 12. Ativan 2 mg via G-tube q.6 hours p.r.n. for agitation. 13. Methadone 10 mg p.o. q.6 hours p.r.n. for pain. 14. Nystatin topical application b.i.d. x3 more days. 15. MiraLax 17 grams G-tube daily p.r.n. for constipation. 16. Ambien 10 mg G-tube at bedtime p.r.n. for insomnia. Interdisciplinary of care was established for this patient. Plan of care was discussed with Dr. Sacha wilson. Dictated By: JAN ZHANG ORGAN TUNER for ZOILA RILEY MD, SR/MARIA ELENA Conf#: [id number] [facility]#: [id number]
== END 2016-11-10 20:50 | DRG 4 ==
LOC: E/R 14:08 → ICU 16:54 → TEL 09-16 18:50 → ICU 09-19 12:22 → TEL 10-27 18:32
PROVIDERS: ADMIT Internal Medicine; ATTEND Internal Medicine
PROC: 5A1955Z Respiratory Ventilation, Greater than 96 Consecutive Hours (ICD-10-PCS; 2016-09-19)
PROC: 0BH17EZ Insertion of Endotracheal Airway into Trachea, Via Natural or Artificial Opening (ICD-10-PCS; 2016-09-19)
PROC: 05H633Z Insertion of Infusion Device into Left Subclavian Vein, Percutaneous Approach (ICD-10-PCS; 2016-09-19)
PROC: 0W993ZX Drainage of Right Pleural Cavity, Percutaneous Approach, Diagnostic (ICD-10-PCS; 2016-09-22)
PROC: 0W993ZX Drainage of Right Pleural Cavity, Percutaneous Approach, Diagnostic (ICD-10-PCS; 2016-10-01)
PROC: 0DH63UZ Insertion of Feeding Device into Stomach, Percutaneous Approach (ICD-10-PCS; 2016-10-20)
PROC: 0B110F4 Bypass Trachea to Cutaneous with Tracheostomy Device, Open Approach (ICD-10-PCS; principal; 2016-10-20 09:00)
DX: A41.9 Sepsis, unspecified organism (principal); I26.99 Other pulmonary embolism without acute cor pulmonale; K72.00 Acute and subacute hepatic failure without coma; J86.9 Pyothorax without fistula; G92 Toxic encephalopathy; J18.9 Pneumonia, unspecified organism; I50.43 Acute on chronic combined systolic (congestive) and diastolic (congestive) heart failure; J91.8 Pleural effusion in other conditions classified elsewhere; J96.01 Acute respiratory failure with hypoxia; E87.0 Hyperosmolality and hypernatremia; F15.20 Other stimulant dependence, uncomplicated; I82.611 Acute embolism and thrombosis of superficial veins of right upper extremity; I82.442 Acute embolism and thrombosis of left tibial vein; I42.8 Other cardiomyopathies; Z99.11 Dependence on respirator [ventilator] status; E87.1 Hypo-osmolality and hyponatremia; E87.2 Acidosis; L89.153 Pressure ulcer of sacral region, stage 3; R45.1 Restlessness and agitation; F11.10 Opioid abuse, uncomplicated; F17.210 Nicotine dependence, cigarettes, uncomplicated; E87.6 Hypokalemia; E87.5 Hyperkalemia; R13.10 Dysphagia, unspecified; E83.42 Hypomagnesemia
CPT/HCPCS: 31500; 32555; 36415; 36569; 36600; 71010; 71250; 71275; 76705; 76937; 80048; 80053; 80202; 81001; 81003; 82140; 82550; 82553; 82565; 82803; 82945; 82962; 83605; 83615; 83735; 84100; 84132; 84134; 84145; 84157; 84484; 84520; 85025; 85049; 85610; 85670; 85730; 86480; 86580; 86635; 86703; 86704; 86709; 86738; 86803; 87040; 87070; 87075; 87081; 87086; 87102; 87116; 87275; 87276; 87279; 87280; 87340; 87400; 87449; 88104; 88305; 88313; 89050; 89220; 92507; 92526; 92610; 93005; 93306; 93923; 93970; 94002; 94003; 94640; 94660; 94664; 94770; 96374; 96375; 96376; 97110; 97116; 97162; 97530; J1940; J0456; J0690; J0696; J1630; J1644; J1650; J1815; J2060; J2185; J2250; J2270; J2543; J2765; J2997; J3010; J3370; J3475; J3480; J7030; J7040; J7042; J7050; Q9967

== ENCOUNTER 2017-02-16 08:42 | Emergency (ER) | payer OTHER ==
[~2017-02-16] VITALS: Ht 165.1 cm; Wt 89.0 kg
[2017-02-16 08:48] VITALS: Ht 165.1 cm; Wt 89.0 kg
[2017-02-16 09:00] LABS: URINE BLOOD (Dip) POC 3+ (NEGATIVE)
--- NOTE | 2017-02-16 09:05 | ERD ---
ER Documentation Chief Complaint Date/Time DATE: 02/16/17 TIME: 09:04 Chief Complaint dark urine with urgency to void HPI 41-year-old male here with complaints of urinary frequency urgency and blood in his urine for the past 2-3 days. No fevers no chills. No nausea no vomiting. No other current complaints. ROS All systems reviewed and are negative except as per history of present illness. Medications Home Meds No Active Prescriptions or Reported Meds Allergies Allergies: Coded Allergies: piperacillin (Verified Allergy, Unknown, 11/01/16) generalized rash tazobactam (Verified Allergy, Unknown, 11/01/16) generalized rash PMhx/Soc Hx Miscellaneous Medical Probl: Yes (see PT note) Hx Substance Use: No Physical Exam Vitals Vital Signs Date Time Temp Pulse Resp B/P Pulse Ox O2 Delivery O2 Flow Rate FiO2 02/16/17 08:48 98.1 83 20 145/90 99 Physical Exam Const: [] Head: Atraumatic Eyes: Normal Conjunctiva ENT: Normal External Ears, Nose and Mouth. Neck: Full range of motion..~ No meningismus. Resp: Clear to auscultation bilaterally Cardio: Regular rate and rhythm, no murmurs Abd: Soft, non tender, non distended. Normal bowel sounds Skin: No petechiae or rashes Back: No midline or flank tenderness Ext: No cyanosis, or edema Neur: Awake and alert Psych: Normal Mood and Affect Results 24 hrs Laboratory Tests Test 02/16/17 09:02 Bedside Urine pH (LAB) 5.5 Bedside Urine Protein (LAB) Negative Bedside Urine Glucose (UA) Negative Bedside Urine Ketones (LAB) Negative Bedside Urine Blood 3+ Bedside Urine Nitrite (LAB) Negative Bedside Urine Leukocyte Esterase (L Negative Procedures/MDM Medical decision-makin-year-old male with evidence of early prostatitis. Patient was started on ciprofloxacin twice daily and told to follow-up with his primary care [facility] pending urine culture results. Departure Diagnosis: Primary Impression: Dysuria Condition: Stable DORIS OVIEDO February 16, 2017 09:05
[2017-02-16] MEDS ORDERED: CIPR500T4 PO (09:06)
[2017-02-16] MEDS ORDERED: TAMS-14 PO (09:06)
[2017-02-16] MEDS ORDERED: PHEN-538 PO (09:06)
[2017-02-16 09:22] LABS: ADD UMIC YES; URINE BILIRUBIN (Dip) NEGATIVE (NEGATIVE); URINE BLOOD (Dip) 3+ (NEGATIVE); URINE COLOR LT. RED (YELLOW); URINE GLUCOSE (Dip) NEGATIVE (NEGATIVE); URINE KETONES (Dip) NEGATIVE (NEGATIVE); URINE LEUKOCYTE ESTERASE (Dip) NEGATIVE (NEGATIVE); URINE NITRITE (Dip) NEGATIVE (NEGATIVE); URINE TOTAL PROTEIN (Dip) NEGATIVE (NEGATIVE); URINE UROBILINOGEN (Dip) 0.2 E.U./dL (0.1-1.0)
[2017-02-16 09:33] LABS: BACTERIA,URINE RARE
== END 2017-02-16 09:20 | disposition home or self-care (01) ==
LOC: E/R 08:42
DX: R30.0 Dysuria (principal)
CPT/HCPCS: 81001; 87086; Z7502; 81003; 99284

== ENCOUNTER 2017-03-30 17:09 | Emergency (ER) | END 2017-03-30 19:14 | disposition home or self-care (01) | DX: R51 Headache (principal) | CPT/HCPCS: 36415; 70450; 80048; 85025; 85610; 85730; Z7502 ==

== ENCOUNTER 2017-06-10 07:31 | Emergency (ER) | payer OTHER ==
[~2017-06-10] VITALS: Ht 167.6 cm; Wt 108.0 kg
[~2017-06-10 07:31] MED LIST changes: -ALBU8.5H3 INH; -AZIT250T6 PO; +CIPR500T4 PO; -HYDR-3498 PO; -MAG-19 PO; +NAPR-260 PO; -OMEP20CA9 PO; +PHEN-538 PO; +TAMS-14 PO; +TRAM50TA2 PO
[2017-06-10 07:34] VITALS: Ht 167.6 cm; Wt 108.0 kg
[2017-06-10] MEDS ORDERED: D-ME473S18 PO (07:56)
--- NOTE | 2017-06-10 08:06 | ERD ---
ER Documentation Chief Complaint Date/Time DATE: 06/10/17 TIME: 07:59 Chief Complaint Comlains of a cough x 2 days HPI 41-year-old male complaining of cough 2 days. Patient describes as a dry cough with no chest pain or shortness of breath. States the cough is constant has not used any medications for symptoms. Denies fever. Denies runny nose or sore throat. Denies sick contacts. Patient has a history of blood clots, last blood clot was September 2016. Patient is not on blood thinners, was taken off medication a few months ago and is being closely followed. Patient denies any pleuritic chest pain or hemoptysis. Denies lower leg swelling. Denies recent travel or surgery. Medical problems: History of blood clots NKDA ROS All systems reviewed and are negative except as per history of present illness. Medications Home Meds Active Scripts Dextromethorphan Hb-Promethazine Hcl (Promethazine DM Syrup) 473 Ml Syrup, 5 ML PO Q6H Y for COUGH, #4 OZ Prov:SUKI STERN PA-C 06/10/17 Naproxen* (Naprosyn*) 500 Mg Tablet, 500 MG PO BID Y for PAIN AND/OR INFLAMMATION, #30 TAB Prov:ARNULFO GARDNER 03/30/17 Tramadol HCl (Tramadol HCl) 50 Mg Tablet, 50 MG PO Q4 Y for PAIN, #20 TAB Prov:ARNULFO GARDNER 03/30/17 Phenazopyridine Hcl* (Pyridium*) 200 Mg Tab, 200 MG PO TID Y for URINARY PAIN, # 6 TAB Prov:DORIS OVIEDO 02/16/17 Tamsulosin Hcl* (Flomax*) 0.4 Mg Cap.er.24h, 0.4 MG PO QPM, #30 CAP Prov:DORIS OVIEDO 02/16/17 Ciprofloxacin Hcl* (Ciprofloxacin Hcl*) 500 Mg Tablet, 500 MG PO BID for 14 Days , TAB Prov:DORIS OVIEDO 02/16/17 Allergies Allergies: Coded Allergies: piperacillin (Verified Allergy, Unknown, 06/10/17) generalized rash tazobactam (Verified Allergy, Unknown, 06/10/17) generalized rash PMhx/Soc Hx Miscellaneous Medical Probl: Yes Hx Alcohol Use: No (UNK) Hx Substance Use: No Hx Tobacco Use: No (UNK) Smoking Status: Never smoker Physical Exam Vitals Vital Signs Date Time Temp Pulse Resp B/P Pulse Ox O2 Delivery O2 Flow Rate FiO2 06/10/17 07:34 97.9 91 20 136/84 97 Physical Exam GENERAL: The patient is well-appearing, well-nourished, in no acute distress HEENT: Atraumatic. Conjunctivae are pink. Pupils equal, round, and reactive to light. There is no scleral icterus. Tympanic membranes clear bilaterally. Oropharynx clear. No nystagmus or photophobia. NECK: C-spine is soft and supple. There is no meningismus. There is no cervical lymphadenopathy. No JVD. No bruits. No goiter. CHEST: Clear to auscultation bilaterally. There are no rales, wheezes or rhonchi. HEART: Regular rate and rhythm. No murmurs, clicks, rubs or gallops. No S3 or S4. SKIN: There is no apparent rash or petechiae. The skin is warm and dry. EXTREMITY: No lower leg swelling. Procedures/MDM MDM: 41-year-old male coming complaining of cough. I have low suspicion for PE. Patient is not tachycardic and is not complaining of hemoptysis or pleuritic chest pain. I have low suspicion for pneumonia as patient is afebrile breath sounds are within normal limits. I have low suspicion for hypoxia as patient's oxygen saturations 97% on room air. I have low suspicion for CHF or COPD. Patient does not have bilateral lower leg swelling. Vital signs are stable. Patient states he feels the symptoms are associated with viral cold symptoms. I do not feel that blood work or imaging was indicated at today's visit. Patient is discharged with strict ER precautions and I will give medication for symptomatic cough relief. Patient is told to follow-up with primary care within 1-2 days for close evaluation. Departure Diagnosis: Primary Impression: Cough Condition: Stable Patient Instructions: Cough, Chronic, Uncertain Cause, (Adult) Referrals: MAKAYLA CAIN (PCP) Additional Instructions: FOLLOW UP WITH YOUR PRIMARY CARE PHYSICIAN TOMORROW.Return to this facility if you are not improving as expected. SUKI STERN PA-C Jun 10, 2017 08:06
== END 2017-06-10 07:56 | disposition home or self-care (01) ==
LOC: FTE 07:31
DX: R05 Cough (principal)
CPT/HCPCS: 99283

== ENCOUNTER 2017-08-04 14:39 | Emergency (ER) | payer OTHER ==
[~2017-08-04] VITALS: Ht 175.3 cm; Wt 106.1 kg
[~2017-08-04 14:39] MED LIST changes: +D-ME473S18 PO
[2017-08-04 14:45] VITALS: Ht 175.3 cm; Wt 106.1 kg
--- NOTE | 2017-08-04 16:40 | ERD ---
ER Documentation Chief Complaint Chief Complaint COUGH AND CONGESTION, CHEST WALL PAIN WHEN COUGHING HPI 41-year-old male who presents emergency department for cough and congestion, chest wall pain when coughing for 3-4 days. Denies headache, dizziness, blurred vision, neck pain, n difficulty swallowing, Hermilo stiffness, shoulder pain, chest pain, loss of appetite, abdominal pain, nausea, vomiting, constipation, diarrhea, urinary symptoms, loss of bowel bladder control, recent exposure to any illness, recent long travel, recent travel, recent antibiotic use in the last 3 months, fever, chills, difficulty walking, numbness or tingling sensation. Allergies to Zosyn, Tazobactam. Past medical history: Stated that he has history of weak heart, hypertension, high cholesterol. Surgery: Denies. Medication: He is not able to remember the names of his antihypertensive and anti-hyperlipidemia medications. Social: Not working at this time. Denies smoking, use of alcoholic beverages, use of illegal drugs. ROS All systems reviewed and are negative except as per history of present illness. Medications Home Meds Active Scripts Dextromethorphan Hb-Promethazine Hcl (Promethazine DM Syrup) 473 Ml Syrup, 5 ML PO Q6H Y for COUGH, #4 OZ Prov:SUKI STERN PA-C 06/10/17 Naproxen* (Naprosyn*) 500 Mg Tablet, 500 MG PO BID Y for PAIN AND/OR INFLAMMATION, #30 TAB Prov:ARNULFO GARDNER 03/30/17 Tramadol HCl (Tramadol HCl) 50 Mg Tablet, 50 MG PO Q4 Y for PAIN, #20 TAB Prov:ARNULFO GARDNER 03/30/17 Phenazopyridine Hcl* (Pyridium*) 200 Mg Tab, 200 MG PO TID Y for URINARY PAIN, # 6 TAB Prov:DORIS OVIEDO S. 02/16/17 Tamsulosin Hcl* (Flomax*) 0.4 Mg Cap.er.24h, 0.4 MG PO QPM, #30 CAP Prov:DORIS OVIEDO S. 02/16/17 Ciprofloxacin Hcl* (Ciprofloxacin Hcl*) 500 Mg Tablet, 500 MG PO BID for 14 Days , TAB Prov:DORIS OVIEDO S. 02/16/17 Allergies Allergies: Coded Allergies: piperacillin (Verified Allergy, Unknown, 06/10/17) generalized rash tazobactam (Verified Allergy, Unknown, 06/10/17) generalized rash PMhx/Soc Hx Miscellaneous Medical Probl: Yes Hx Alcohol Use: No Hx Substance Use: No Hx Tobacco Use: No Smoking Status: Never smoker Physical Exam Vitals Vital Signs Date Time Temp Pulse Resp B/P Pulse Ox O2 Delivery O2 Flow Rate FiO2 08/04/17 14:45 99.5 108 18 134/78 96 Physical Exam Const: [] Head: Atraumatic Eyes: Normal Conjunctiva ENT: Normal External Ears, Nose and Mouth. Neck: Full range of motion..~ No meningismus. Resp: Clear to auscultation bilaterally Cardio: Regular rate and rhythm, no murmurs Abd: Soft, non tender, non distended. Normal bowel sounds Skin: No petechiae or rashes Back: No midline or flank tenderness Ext: No cyanosis, or edema Neur: Awake and alert Psych: Normal Mood and Affect Results 24 hrs Current Medications Medications (Trade) Dose Ordered Sig/Darlyn Route PRN Reason Start Time Stop Time Status Last Admin Dose Admin Acetaminophen (Tylenol Tab) 650 mg ONCE ONCE PO 08/04/17 17:00 08/04/17 17:01 DC 08/04/17 16:54 Procedures/MDM 41-year-old male who presents emergency department for cough and congestion, chest wall pain when coughing for 3-4 days. Denies headache, dizziness, blurred vision, neck pain, n difficulty swallowing, Hermilo stiffness, shoulder pain, chest pain, loss of appetite, abdominal pain, nausea, vomiting, constipation, diarrhea, urinary symptoms, loss of bowel bladder control, recent exposure to any illness, recent long travel, recent travel, recent antibiotic use in the last 3 months, fever, chills, difficulty walking, numbness or tingling sensation. Allergies to Zosyn, Tazobactam. Past medical history: Stated that he has history of weak heart, hypertension, high cholesterol. Surgery: Denies. Medication: He is not able to remember the names of his antihypertensive and anti-hyperlipidemia medications. Social: Not working at this time. Denies smoking, use of alcoholic beverages, use of illegal drugs. Physical exam: Lung sounds are clear to auscultation. Regular rate and rhythm. Patient agreed with the diagnostic test, treatment, plan of care. EKG: Normal sinus rhythm with ventricular rate of 92 bpm. No STEMI. No evidence of ischemia. Chest x-ray: No evidence for active cardiopulmonary disease. Differential diagnosis: Acute myocardial infarction versus acute coronary syndrome versus pneumonia versus bronchitis versus flulike symptoms versus upper respiratory infection versus viral syndrome Final diagnosis: Acute bronchitis. Prescription: Azithromycin. Pro-air. Prednisone. Tessalon Perles. Follow-up with PCP in the next 24-48 hours. Back here in the emergency department for any new symptoms or any worsening of symptoms. All questions and concerns were answered. Patient verbalized understanding and agreed with the plan of care. Hemodynamically stable on discharge. Departure Diagnosis: Primary Impression: Acute bronchitis Condition: Stable Additional Instructions: Follow-up with PCP in the next 24-48 hours. Back here in the emergency department for any new symptoms or any worsening of symptoms. All questions and concerns were answered. Patient verbalized understanding and agreed with the plan of care. WILLIAM KNAPP Aug 04, 2017 16:40
[2017-08-04] MEDS ORDERED: ACETAMINOPHEN 325 MG TAB PO ONE (17:00)
--- NOTE | 2017-08-04 17:26 | RADRPT ---
PROCEDURE: XR Chest. CLINICAL INDICATION: Cough. TECHNIQUE: Single AP portable chest. COMPARISON: No prior Chest x-ray FINDINGS: The cardiomediastinal silhouette is within normal limits of size.The lungs are clear without pleura l effusion or focal consolidation. No pneumothorax. The osseous structures and soft tissues are unre markable. IMPRESSION: 1. No evidence for active cardiopulmonary disease. RPTAT:AAJJ Mitali Baldwin Physician Date Time Electronically viewed and signed by Physician Glenis on 08/04/2017 17:25 VITO/
[2017-08-04] MEDS ORDERED: PRED20TA PO (17:36)
[2017-08-04] MEDS ORDERED: AZIT250T94 PO (17:36)
[2017-08-04] MEDS ORDERED: BENZ100C70 PO (17:37)
[2017-08-04] MEDS ORDERED: ALBU8.5H3 INH (17:37)
[2017-08-04 18:14] VITALS: PULSE 96
== END 2017-08-04 18:15 | disposition home or self-care (01) ==
LOC: FTE 14:39
DX: J20.9 Acute bronchitis, unspecified (principal); I10 Essential (primary) hypertension
CPT/HCPCS: 71020; 93005; Z7502; Z7610

== ENCOUNTER 2017-10-14 11:59 | Emergency (ER) | END 2017-10-14 15:05 | disposition home or self-care (01) ==

== ENCOUNTER 2017-11-29 15:49 | Emergency (ER) | END 2017-11-29 16:33 | disposition home or self-care (01) ==